=== PATIENT | male | born 1940 | race African-American/Black ===

== ENCOUNTER 2019-08-26 22:10 | Inpatient (IN) | payer MEDICARE, MEDICAID ==
[~2019-08-26] VITALS: Ht 172.7 cm; Wt 67.7 kg
[2019-08-27 00:50] VITALS: BP 140/78
--- NOTE | 2019-08-27 01:00 | NUR ---
NURSE NOTES: Admitted patient direct admit under Dr. Rome. Physical assessment done. Called Dr Rome for admitting orders and carried out.
[2019-08-27] MEDS ORDERED: GLUCOPHAGE1000 MG ORAL (01:43)
[2019-08-27] MEDS ORDERED: HYDREA500 MG PO (01:43)
[2019-08-27] MEDS ORDERED: LOTENSIN HCT 11 EAC1 PO (01:43)
[2019-08-27] MEDS ORDERED: ASPIRIN-LOW81 MG ORAL (01:43)
[2019-08-27] MEDS ORDERED: PRAVASTATIN SOD10 M1 ORAL (01:43)
[2019-08-27] MEDS ORDERED: NORVASC10 MG ORAL (01:43)
[2019-08-27] MEDS ORDERED: HYDROcodone/Acetamin 5/325 tab ORAL PRN (02:00)
[2019-08-27] MEDS ORDERED: Morphine Sulfate 2mg/ml Inj(IV/IM USE ONLY) IVP PRN (02:00)
[2019-08-27] MEDS: D5 1/2NS 1,000 ML IV SCH ×2 (03:25→13:18)
[2019-08-27 04:00] VITALS: BP 138/74
[2019-08-27] MEDS: Heparin 5000 units/ml inj SUBQ SCH ×3 (05:52→21:59)
[2019-08-27 07:21] LABS: BASOPHILS % (AUTO) 0.5 % (0.0-2.0); HEMATOCRIT 50.1 % (42.0-52.0); HEMOGLOBIN 15.7 G/DL (14.2-18.0); LYMPHOCYTES % (AUTO) 6.3 % (20.0-45.0); MEAN CORPUSCULAR VOLUME 89 FL (80-99); MONOCYTES % (AUTO) 11.4 % (1.0-10.0); NEUTROPHILS % (AUTO) 81.8 % (45.0-75.0); PLATELET COUNT 194 K/UL (150-450); RED CELL DISTRIBUTION WIDTH 15.5 % (11.6-14.8); WHITE BLOOD COUNT 7.6 K/UL (4.8-10.8)
--- NOTE | 2019-08-27 07:27 | NUR ---
HAND-OFF: Written Report given to Sara Coles RN. Addendum: 08/27/19 at 0743 by YEISON LOO RN HAND-OFF: Report given to Sara Coles RN.
[2019-08-27 08:00] VITALS: BP 137/77
--- NOTE | 2019-08-27 08:14 | NUR ---
NURSE NOTES: Patient received sleeping in bed, breathing unlabored on room air. No signs of apparent distress observed. IV sites on both arms patent and intact, fluids running at 100cc/hr. Bed locked in lowest position, call light placed within reach, will continue to monitor.
[2019-08-27] MEDS: Aspirin EC 81mg tab ORAL SCH (08:47)
[2019-08-27] MEDS: Benazepril 10mg tab ORAL SCH (08:47)
[2019-08-27] MEDS: Hydroxyurea 500mg cap ORAL SCH (08:47)
[2019-08-27 09:57] LABS: ALANINE AMINOTRANSFERASE 32 U/L (12-78); ALBUMIN 2.4 G/DL (3.4-5.0); ALBUMIN/GLOBULIN RATIO 0.4 (1.0-2.7); ALKALINE PHOSPHATASE 65 U/L (46-116); ANION GAP 12 mmol/L (5-15); ASPARTATE AMINO TRANSFERASE 92 U/L (15-37); BILIRUBIN,TOTAL 1.7 MG/DL (0.2-1.0); BLOOD UREA NITROGEN 37 mg/dL (7-18); CALCIUM 8.8 MG/DL (8.5-10.1); CARBON DIOXIDE 24 MMOL/L (21-32); CHLORIDE 122 MMOL/L (98-107); CREATININE 1.2 MG/DL (0.55-1.30); PHOSPHORUS 1.9 MG/DL (2.5-4.9); POTASSIUM 3.6 MMOL/L (3.5-5.1); SODIUM 158 MMOL/L (136-145)
[2019-08-27 10:03] LABS: BILIRUBIN,DIRECT 1.1 MG/DL (0.0-0.3)
--- NOTE | 2019-08-27 10:49 | NUR ---
NURSE NOTES:WOUND CARE NOTES:Pt presented on admission with multiple DTPI's. DTPI noted to R scapula. Base of wound is purple with red tinged borders. Base of wound is indurated (L)9.9cm x (W)5cm. DTPI noted to L thoracic. base of wound is maroon and indurated with surrounding non-blanching erythema.(L)0.5cm x (W)3.5cm. DTPI noted to sacrum. Base of wound is purple/black with an area at R sacrum that is fluctuant and oozing small amt sanguineous exudate. Base of wound is otherwise indurated(L)8.8cm x (W)9cm. Periwound is is blanchable without erythema. Both heels and malleoli are firm and blanchable. Tx.Plan: Apply Cavilon Skin Barrier to R scapula and L thoracic wounds. Cover each wound with Optifoam drsg. Change every 7 days and prn. Apply Moisture Barrier Paste to sacrum. Cover with Optifoam drsg. Change every 3 days and prn. Apply Cavilon Skin Barrier to both heels. Cover each heel with Optifoam drsg. Change every 7 days and prn. APM/ALEK Mattress. Off-load heels with pillow. Reposition at least every 2hours or as tolerated.
[2019-08-27 11:55] VITALS: BP 151/72
--- NOTE | 2019-08-27 12:27 | Consultation ---
History of Present Illness General Date patient seen: Aug 27, 2019 Present Illness HPI 78 year old male found down at his independent living apartment [facility] ([facility] [address] was note to have altered mental status. Taken to [facility] and transferred to [facility] for care and management after stabilization. Pre report, patient has closer Friend Mr. Dockery who is a christianity friend that states not sure if any relatives, next of kin, or poa. Patient's years ago and no kids. In [place], CT head negative but possible infarct. Patient seen and examined at bedside. Non verbal but does nod head in response to questions. Multiple wounds likely from being down for prolonged time. Surgery called to evaluate and assist with care. In [place] ED with lactic acidosis, abnormal labs, rhabdo and severe dehydration. given IV fluids and noted to be improved prior to transfer. abnormal lft's, renal insufficiency, lactic acidosis. Allergies: Coded Allergies: No Known Allergies (Unverified , 08/27/19) Medication History Scheduled Amlodipine Besylate (Norvasc), 10 MG ORAL DAILY, (Reported) Aspirin (Aspirin EC), 81 MG ORAL DAILY, (Reported) Benazepril/Hydrochlorothiazide (Lotensin Hct 10-12.5 mg Tablet), 1 EACH PO DAILY , (Reported) Hydroxyurea* (HYDREA 500mg*), 500 MG PO DAILY, (Reported) Metformin Hcl (Glucophage), 1,000 MG ORAL BID, (Reported) Pravastatin Sod (Pravastatin Sod), 20 MG ORAL DAILY, (Reported) Patient History Limited by: medical condition History Provided By: Medical Record, PMD Healthcare decision maker Clark Montero Resuscitation status Full Code Advanced Directive on File No Past Medical/Surgical History Past Medical/Surgical History: (1) Deep tissue injury (2) Blood blister (3) Lactic acid acidosis (4) Dehydration (5) Failure to thrive (6) Rhabdomyolysis (7) Hip fracture, left Review of Systems Review of Symptoms unable to obtain as patient non verbal Physical Exam Physical Exam General appearance: alert, no distress, appears stated age Head: Normocephalic, without obvious abnormality, atraumatic Eyes: conjunctivae/corneas clear. PERRL, EOM's intact. Fundi benign Throat: Lips, mucosa, and tongue normal. Teeth and gums normal Neck: supple, symmetrical, trachea midline, no adenopathy, thyroid: not enlarged, symmetric, no tenderness/mass/nodules, no carotid bruit and no JVD Lungs: clear to auscultation bilaterally Heart: regular rate and rhythm, S1, S2 normal, no murmur, click, rub or gallop Abdomen: soft, non-tender. Bowel sounds normal. No masses, no organomegaly Extremities: extremities normal, atraumatic, no cyanosis or edema Pulses: 2+ and symmetric Skin: multiple dti and blood blisters Neurologic: Grossly normal Last 24 Hour Vital Signs Date Time Temp Pulse Resp B/P (MAP) Pulse Ox O2 Delivery O2 Flow Rate FiO2 08/27/19 11:55 98.0 124 18 151/72 (98) 99 08/27/19 10:56 101.7 08/27/19 08:47 137/77 08/27/19 08:47 102 137/77 08/27/19 08:00 97.5 102 18 137/77 (97) 99 08/27/19 04:00 98.2 88 16 138/74 (95) 94 08/27/19 02:05 Room Air 08/27/19 00:50 98.9 90 18 140/78 (98) 96 Intake and Output 08/26/19 08/27/19 19:00 07:00 Intake Total 300 ml Output Total 600 ml Balance -300 ml Intake Oral 0 ml IV Total 300 ml Output Urine Total 600 ml Laboratory Tests Test 08/27/19 06:17 08/27/19 08:55 White Blood Count 7.6 K/UL (4.8-10.8) Red Blood Count 5.60 M/UL (4.70-6.10) Hemoglobin 15.7 G/DL (14.2-18.0) Hematocrit 50.1 % (42.0-52.0) Mean Corpuscular Volume 89 FL (80-99) Mean Corpuscular Hemoglobin 27.9 PG (27.0-31.0) Mean Corpuscular Hemoglobin Concent 31.2 G/DL (32.0-36.0) L Red Cell Distribution Width 15.5 % (11.6-14.8) H Platelet Count 194 K/UL (150-450) Mean Platelet Volume 7.6 FL (6.5-10.1) Neutrophils (%) (Auto) 81.8 % (45.0-75.0) H Lymphocytes (%) (Auto) 6.3 % (20.0-45.0) L Monocytes (%) (Auto) 11.4 % (1.0-10.0) H Eosinophils (%) (Auto) 0.0 % (0.0-3.0) Basophils (%) (Auto) 0.5 % (0.0-2.0) Sodium Level 158 MMOL/L (136-145) H Potassium Level 3.6 MMOL/L (3.5-5.1) Chloride Level 122 MMOL/L (98-107) H Carbon Dioxide Level 24 MMOL/L (21-32) Anion Gap 12 mmol/L (5-15) Blood Urea Nitrogen 37 mg/dL (7-18) H Creatinine 1.2 MG/DL (0.55-1.30) Estimat Glomerular Filtration Rate mL/min (>60) Glucose Level 276 MG/DL (74-106) H Calcium Level 8.8 MG/DL (8.5-10.1) Phosphorus Level 1.9 MG/DL (2.5-4.9) L Magnesium Level 2.4 MG/DL (1.8-2.4) Total Bilirubin 1.7 MG/DL (0.2-1.0) H Direct Bilirubin 1.1 MG/DL (0.0-0.3) H Aspartate Amino Transf (AST/SGOT) 92 U/L (15-37) H Alanine Aminotransferase (ALT/SGPT) 32 U/L (12-78) Alkaline Phosphatase 65 U/L (46-116) Total Protein 8.6 G/DL (6.4-8.2) H Albumin 2.4 G/DL (3.4-5.0) L Globulin 6.2 g/dL Albumin/Globulin Ratio 0.4 (1.0-2.7) L Height (Feet): 5 Height (Inches): 8.00 Weight (Pounds): 127 Medications Current Medications Medications (Trade) Dose Ordered Sig/Debi Route PRN Reason Start Time Stop Time Status Last Admin Dose Admin Acetaminophen (Tylenol) 650 mg Q6H PRN ORAL Mild Pain/Temp > 100.5 08/27/19 02:00 09/26/19 01:59 Acetaminophen/ Hydrocodone Bitart ([place] 5/325) 1 tab Q6H PRN ORAL For Pain 08/27/19 02:00 09/03/19 01:59 Amlodipine Besylate (Norvasc) 10 mg DAILY ORAL 08/27/19 09:00 09/26/19 08:59 08/27/19 08:47 Aspirin (Ecotrin) 81 mg DAILY ORAL 08/27/19 09:00 09/26/19 08:59 08/27/19 08:47 Benazepril HCl (Lotensin) 10 mg DAILY ORAL 08/27/19 09:00 09/26/19 08:59 08/27/19 08:47 Dextrose/Sodium Chloride 1,000 ml @ 100 mls/hr Q10H IV 08/27/19 03:00 09/26/19 02:59 08/27/19 03:25 Heparin Sodium (Porcine) (Heparin 5000 units/ml) 5,000 units EVERY 8 HOURS SUBQ 08/27/19 06:00 09/26/19 05:59 Hydroxyurea (Hydrea) 500 mg DAILY ORAL 08/27/19 09:00 09/01/19 08:59 08/27/19 08:47 Metformin HCl (Glucophage) 1,000 mg BID ORAL 08/27/19 18:00 09/26/19 17:59 Morphine Sulfate (Morphine Sulfate) 2 mg Q6H PRN IVP Severe Pain (Pain Scale 7-10) 08/27/19 02:00 09/03/19 01:59 Assessment/Plan Problem List: (1) Dehydration Assessment & Plan: AMS, found down dehydration bun/cr elevated gfr down improved with IVF ICD Codes: E86.0 - Dehydration SNOMED: 76332457 (2) Failure to thrive SNOMED: 17234535 (3) Rhabdomyolysis Assessment & Plan: likely from being down IV fluids trend labs will monitor ICD Codes: M62.82 - Rhabdomyolysis SNOMED: 837298557 (4) Blood blister Assessment & Plan: Patient presented with multiple DTI and Blood blisters Found down prior and noted on eval in ED at [place]. Seen upon admission to [facility] Patient with 8.8cm x 9cm sacral DTI with oozing on right sacral with resorbing blood blister. periwound intact and stable. Right scapula DTI 9.9cm x 5cm purple and indurated without drainage Left thoracic DTI 1cm x 3.5cm purple and indurated without drainage bilateral heels stable and soft with blanching no other skin concerns noted at this time Tx Plan: Monitor wounds for drainage. Will apply skin protectant and Optifoam dressings Daily and prn saturation Keep heels off loaded with pillows Air soft mattress Turn q2h Nutritional optimization Will follow with recs. ICD Codes: T14.8XXA - Other injury of unspecified body region, initial encounter SNOMED: 538123425 (5) Lactic acid acidosis Assessment & Plan: IV fluids resuscitation trend ICD Codes: E87.2 - Acidosis SNOMED: 38900801 (6) Hip fracture, left Assessment & Plan: lucency noted on plain films no pain on exam repeat films ordered ICD Codes: S72.002A - Fracture of unspecified part of neck of left femur, initial encounter for closed fracture SNOMED: 344599910 (7) Deep tissue injury ICD Codes: T14.8XXA - Other injury of unspecified body region, initial encounter SNOMED: 531785532 James Breen Aug 27, 2019 12:27
--- NOTE | 2019-08-27 14:50 | Diagnostic Imaging Report ---
Indication: Cough Comparison: None A single view chest radiograph was obtained. Findings: Bones are osteopenic. Lungs are clear. Heart size is normal. Aorta is mildly ectatic. IMPRESSION: No acute disease
--- NOTE | 2019-08-27 14:52 | Diagnostic Imaging Report ---
Indications: hip pain Findings: 2 views of both hips were obtained. There is irregularity of the left greater trochanter indicative of a injury. This is probably an old fracture. However please correlate clinically. There is no fracture of the femoral neck or intertrochanteric region bilaterally. The bones are osteopenic. There is no malalignment of either hip identified. IMPRESSION: Irregularity of the left greater trochanter which may be indicative of a previous fracture. Doubt acute injury. However please correlate clinically. Generalized osteopenia
--- NOTE | 2019-08-27 15:31 | Consultation ---
History of Present Illness General Date patient seen: Aug 27, 2019 Reason for Consultation: inpatient management Present Illness HPI 78 year old male with hx of HTN, DM, resident of a [facility] was taken to [facility] , because he was found down. His initial evaluation at [facility] showed vito he might have old hip fracture. Pt is awake but doesn't talk and respond to any questions. Ethics at [facility] saw him and documented that he lacs capacity. He is and apparently has only a step son. Allergies: Coded Allergies: No Known Allergies (Unverified , 08/27/19) Medication History Scheduled Amlodipine Besylate (Norvasc), 10 MG ORAL DAILY, (Reported) Aspirin (Aspirin EC), 81 MG ORAL DAILY, (Reported) Benazepril/Hydrochlorothiazide (Lotensin Hct 10-12.5 mg Tablet), 1 EACH PO DAILY , (Reported) Hydroxyurea* (HYDREA 500mg*), 500 MG PO DAILY, (Reported) Metformin Hcl (Glucophage), 1,000 MG ORAL BID, (Reported) Pravastatin Sod (Pravastatin Sod), 20 MG ORAL DAILY, (Reported) Patient History Healthcare decision maker Clark Montero Resuscitation status Full Code Advanced Directive on File No Past Medical/Surgical History Past Medical/Surgical History: (1) History of hypertension (2) Diabetes mellitus Review of Systems All Other Systems: negative except mentioned in HPI Physical Exam General Appearance: cachetic, thin Lines, tubes and drains: peripheral HEENT: normocephalic, atraumatic Neck: non-tender, normal alignment Respiratory/Chest: chest wall non-tender, lungs clear Breasts: no masses Cardiovascular/Chest: normal peripheral pulses Abdomen: normal bowel sounds Genitourinary/Rectal: normal genital exam Extremities: normal range of motion Skin Exam: normal pigmentation Last 24 Hour Vital Signs Date Time Temp Pulse Resp B/P (MAP) Pulse Ox O2 Delivery O2 Flow Rate FiO2 08/27/19 11:55 98.0 124 18 151/72 (98) 99 08/27/19 10:56 101.7 08/27/19 09:00 Room Air 08/27/19 08:47 137/77 08/27/19 08:47 102 137/77 08/27/19 08:00 97.5 102 18 137/77 (97) 99 08/27/19 04:00 98.2 88 16 138/74 (95) 94 08/27/19 02:05 Room Air 08/27/19 00:50 98.9 90 18 140/78 (98) 96 Intake and Output 08/26/19 08/27/19 19:00 07:00 Intake Total 300 ml Output Total 600 ml Balance -300 ml Intake Oral 0 ml IV Total 300 ml Output Urine Total 600 ml Laboratory Tests Test 08/27/19 06:17 08/27/19 08:55 White Blood Count 7.6 K/UL (4.8-10.8) Red Blood Count 5.60 M/UL (4.70-6.10) Hemoglobin 15.7 G/DL (14.2-18.0) Hematocrit 50.1 % (42.0-52.0) Mean Corpuscular Volume 89 FL (80-99) Mean Corpuscular Hemoglobin 27.9 PG (27.0-31.0) Mean Corpuscular Hemoglobin Concent 31.2 G/DL (32.0-36.0) L Red Cell Distribution Width 15.5 % (11.6-14.8) H Platelet Count 194 K/UL (150-450) Mean Platelet Volume 7.6 FL (6.5-10.1) Neutrophils (%) (Auto) 81.8 % (45.0-75.0) H Lymphocytes (%) (Auto) 6.3 % (20.0-45.0) L Monocytes (%) (Auto) 11.4 % (1.0-10.0) H Eosinophils (%) (Auto) 0.0 % (0.0-3.0) Basophils (%) (Auto) 0.5 % (0.0-2.0) Sodium Level 158 MMOL/L (136-145) H Potassium Level 3.6 MMOL/L (3.5-5.1) Chloride Level 122 MMOL/L (98-107) H Carbon Dioxide Level 24 MMOL/L (21-32) Anion Gap 12 mmol/L (5-15) Blood Urea Nitrogen 37 mg/dL (7-18) H Creatinine 1.2 MG/DL (0.55-1.30) Estimat Glomerular Filtration Rate mL/min (>60) Glucose Level 276 MG/DL (74-106) H Calcium Level 8.8 MG/DL (8.5-10.1) Phosphorus Level 1.9 MG/DL (2.5-4.9) L Magnesium Level 2.4 MG/DL (1.8-2.4) Total Bilirubin 1.7 MG/DL (0.2-1.0) H Direct Bilirubin 1.1 MG/DL (0.0-0.3) H Aspartate Amino Transf (AST/SGOT) 92 U/L (15-37) H Alanine Aminotransferase (ALT/SGPT) 32 U/L (12-78) Alkaline Phosphatase 65 U/L (46-116) Total Protein 8.6 G/DL (6.4-8.2) H Albumin 2.4 G/DL (3.4-5.0) L Globulin 6.2 g/dL Albumin/Globulin Ratio 0.4 (1.0-2.7) L Height (Feet): 5 Height (Inches): 8.00 Weight (Pounds): 127 Medications Current Medications Medications (Trade) Dose Ordered Sig/Debi Route PRN Reason Start Time Stop Time Status Last Admin Dose Admin Acetaminophen (Tylenol) 650 mg Q4H PRN RECTAL Prn Headache/Temp > 101 08/27/19 12:00 09/26/19 11:59 Acetaminophen (Tylenol) 650 mg Q6H PRN ORAL Mild Pain/Temp > 100.5 08/27/19 02:00 09/26/19 01:59 Acetaminophen/ Hydrocodone Bitart ([place] 5/325) 1 tab Q6H PRN ORAL For Pain 08/27/19 02:00 09/03/19 01:59 Amlodipine Besylate (Norvasc) 10 mg DAILY ORAL 08/27/19 09:00 09/26/19 08:59 08/27/19 08:47 Aspirin (Ecotrin) 81 mg DAILY ORAL 08/27/19 09:00 09/26/19 08:59 08/27/19 08:47 Benazepril HCl (Lotensin) 10 mg DAILY ORAL 08/27/19 09:00 09/26/19 08:59 08/27/19 08:47 Dextrose (Dextrose 50%) 25 ml Q30M PRN IV Hypoglycemia 08/27/19 15:15 09/26/19 15:14 Dextrose (Dextrose 50%) 50 ml Q30M PRN IV Hypoglycemia 08/27/19 15:15 09/26/19 15:14 Dextrose/Sodium Chloride 1,000 ml @ 100 mls/hr Q10H IV 08/27/19 03:00 09/26/19 02:59 08/27/19 13:18 Heparin Sodium (Porcine) (Heparin 5000 units/ml) 5,000 units EVERY 8 HOURS SUBQ 08/27/19 06:00 09/26/19 05:59 08/27/19 13:23 Hydroxyurea (Hydrea) 500 mg DAILY ORAL 08/27/19 09:00 09/01/19 08:59 08/27/19 08:47 Insulin Aspart (NovoLOG) BEFORE MEALS AND HS SUBQ 08/27/19 16:30 09/26/19 16:29 Metformin HCl (Glucophage) 1,000 mg BID ORAL 08/27/19 18:00 09/26/19 17:59 Morphine Sulfate (Morphine Sulfate) 2 mg Q6H PRN IVP Severe Pain (Pain Scale 7-10) 08/27/19 02:00 09/03/19 01:59 Assessment/Plan Problem List: (1) Acute encephalopathy ICD Codes: G93.40 - Encephalopathy, unspecified SNOMED: 65489199, 737742840 (2) Severe protein-calorie malnutrition ICD Codes: E43 - Unspecified severe protein-calorie malnutrition SNOMED: 631764329, 188812638, 384151027 (3) History of hypertension ICD Codes: Z86.79 - Personal history of other diseases of the circulatory system SNOMED: 648393759 (4) Diabetes mellitus ICD Codes: E11.9 - Type 2 diabetes mellitus without complications SNOMED: 05554967 Assessment/Plan: aspiration precaution swallow evaluation ortho evaluation sliding scale diabetic diet monitor BP and electrolytes. Latanya Mckeon MD Aug 27, 2019 15:30
[2019-08-27 16:00] VITALS: BP 138/65
--- NOTE | 2019-08-27 16:02 | Diagnostic Imaging Report ---
Indication: Abdominal pain Technique: Grayscale and duplex Doppler imaging of the abdomen performed. Comparison: None Findings: The liver is unremarkable. Doppler interrogation of the main portal vein shows patency with hepatopedal, monophasic flow. There is no biliary ductal dilatation identified. Gallbladder is unremarkable. CBD is 2.2 mm. There demonstrated part of the pancreas, aorta and IVC show no definite abnormalities though largely not visualized due to bowel gas. There is a 3.7 cm left renal cyst and a 2 cm right renal cyst. Both kidneys appear unremarkable otherwise. There is no hydronephrosis. IMPRESSION: No acute findings Bilateral renal cysts
--- NOTE | 2019-08-27 16:18 | NUR ---
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 Doubt acute injury. However please correlate clinically. IS: IVF NS @ 100ML/HR HEPARIN SUBC ASA PO MRI BRAIN SWALLOW EVAL MED/SURG STATUS
--- NOTE | 2019-08-27 17:32 | History & Physical ---
History and Physical History & Physicial Dictated for Int Med-Tello Reynolds MD Aug 27, 2019 17:32
[2019-08-27] MEDS: metFORMIN 500mg tab ORAL SCH (18:12)
[2019-08-27] MEDS: NovoLOG Insulin Flexpen SUBQ SCH ×2 (18:22→21:59)
--- NOTE | 2019-08-27 18:36 | NUR ---
NURSE NOTES: NG Tube insertion order cancelled as RN's tried 8 times without success. EVENT MARKETING REPRESENTATIVE Odalys apprised. Per ST recommendation, crush meds and modify texture to pureed like soup with nectar thick liquids. No overt aspiration observed when swallowing medications.
--- NOTE | 2019-08-27 19:30 | NUR ---
NURSE NOTES: Received report from JOHNNY Ruiz. Pt AAO x 1, non-verbal, resting in bed, on room air. Adams intact and draining urine. IV site intact and patent. No c/o pain/respiratory distress noted at this time. Bed locked, lowest position, alarm on, side rails up, call light within reach. Will continue to monitor.
--- NOTE | 2019-08-27 19:40 | NUR ---
HAND-OFF: Report given to Ccua TURNER.
[2019-08-27 20:00] VITALS: BP 146/63
--- NOTE | 2019-08-27 20:15 | History and Physical Report ---
DATE OF ADMISSION: 08/27/2019 CHIEF COMPLAINT: The patient is a 78-year-old male, who presents with a chief complaint of altered mental status. HISTORY OF PRESENT ILLNESS: The patient himself is somewhat confused. Much of the history and physical is taken from the patient's medical record. The patient was found down in his apartment on 08/26/2019. It is not known how long the patient was down. The patient has some excoriations on the back. The patient initially was transferred to [facility] emergency room. The patient was diagnosed with rhabdomyolysis, dehydration, and was found to have fracture of the left femur greater trochanter. The patient is transferred to [facility] for insurance purposes. The patient is admitted with rhabdomyolysis, altered mental status, and fracture of the left femur greater trochanter. The patient is also severely dehydrated. PAST MEDICAL HISTORY: Significant for: 1. Hypertension. 2. Diabetes type 2. 3. Hypercholesterolemia. PAST SURGICAL HISTORY: Unknown. CURRENT MEDICATIONS: 1. Aspirin 81 mg one tablet p.o. daily. 2. Atorvastatin 40 mg p.o. daily. 3. Benazepril/hydrochlorothiazide 10/12.5 one tablet p.o. daily. 4. Glucophage 1000 mg p.o. twice daily. 5. Pravastatin 20 mg p.o. daily. 6. Hydroxyurea 500 mg p.o. every other day on odd days and two tablets every day on even days. 7. Amlodipine 10 mg p.o. daily. ALLERGIES: No known drug allergies. SOCIAL HISTORY: The patient is single and lives alone. The patient denies tobacco or alcohol use. PHYSICAL EXAMINATION: VITAL SIGNS: Temperature 98.5, respirations 26, pulse 104, and blood pressure 140/78. GENERAL: The patient is a well-developed and well-nourished male, who is essentially nonverbal. HEENT: Eyes, pupils equal and responsive to light and accommodation. Extraocular movements are intact. NECK: Supple without lymphadenopathy. CHEST: Lungs are clear to auscultation bilaterally without wheezes or rales. CARDIOVASCULAR: Regular rhythm and rate. S1, S2 normal without murmurs, rubs, or gallops. ABDOMEN: Soft, nontender, nondistended. Positive bowel sounds. No evidence of hepatosplenomegaly. Currently, no rebound or guarding noted. EXTREMITIES: Negative for clubbing, cyanosis, or edema. RECTAL: Not performed. GENITAL: Not performed. NEUROLOGIC: Cranial nerves II through XII are grossly intact without focal deficits. LABORATORY AND DIAGNOSTIC DATA: Laboratory studies, WBC 8.3, hemoglobin 16.7, hematocrit 53.2, and platelets 208,000. Sodium 149, potassium 4.9, chloride 107, CO2 25, BUN 65, creatinine 1.79, glucose 216. Lactate elevated at 3.6. Total CK was elevated at 2804. An x-ray of the left femur revealed a nondisplaced fracture of the left femur greater trochanter. ASSESSMENT: This is a 78-year-old male with: 1. Altered mental status. 2. Fracture of the left femur greater trochanter. 3. Rhabdomyolysis. 4. Dehydration. 5. Diabetes type 2. 6. Hypertension. 7. Hypercholesterolemia. TREATMENT: 1. Altered mental status, this may be secondary to dehydration versus acute cerebrovascular accident. An MRI of the brain is pending. 2. Fracture of the left femur greater trochanter. An Orthopedic consultation has been obtained with Dr. Frederic Weir. 3. Rhabdomyolysis. The patient is currently receiving intravenous fluids. 4. Dehydration. The patient is currently receiving intravenous fluids. 5. Diabetes type 2. A NovoLog sliding scale has been instituted. 6. Hypertension. Continue benazepril, hydrochlorothiazide as above. 7. Hypercholesterolemia. Continue pravastatin as above. Tello Cobb M.D. DR: FREDDY JOB#: [id number] CC:
--- NOTE | 2019-08-27 20:30 | NUR ---
NURSE NOTES: Pt has fever 100.8. Pt is not able to take crushed med. RN applied ice pack. 30min recheck temp was 98.7. Will continue to monitor.
[2019-08-28] VITALS: BP 141/68
[2019-08-28] MEDS: Acetaminophen 650 MG SUPP RECTAL PRN ×2 (01:23→15:44)
[2019-08-28 04:00] VITALS: BP 151/78
--- NOTE | 2019-08-28 05:14 | NUR ---
NURSE NOTES: NG tube inserted and verified proper placement of the NG tube by auscultating a lal of air over the stomach. Pt tolerated well. X ray abd for NG tube placement ordered.
[2019-08-28] MEDS: Heparin 5000 units/ml inj SUBQ SCH ×3 (05:53→21:39)
[2019-08-28] MEDS: NovoLOG Insulin Flexpen SUBQ SCH ×4 (05:53→21:38)
[2019-08-28 06:59] LABS: INR 1.1 (0.9-1.1)
--- NOTE | 2019-08-28 07:02 | NUR ---
HAND-OFF: Report given to JOHNNY Ruiz.
[2019-08-28 07:22] LABS: BASOPHILS % (AUTO) 0.4 % (0.0-2.0); HEMATOCRIT 42.1 % (42.0-52.0); LYMPHOCYTES % (AUTO) 8.9 % (20.0-45.0); MEAN CORPUSCULAR VOLUME 85 FL (80-99); MONOCYTES % (AUTO) 8.1 % (1.0-10.0); NEUTROPHILS % (AUTO) 82.6 % (45.0-75.0); PLATELET COUNT 178 K/UL (150-450); RED BLOOD COUNT 4.94 M/UL (4.70-6.10); RED CELL DISTRIBUTION WIDTH 13.8 % (11.6-14.8); WHITE BLOOD COUNT 7.5 K/UL (4.8-10.8)
[2019-08-28 07:23] LABS: PHOSPHORUS 2.2 MG/DL (2.5-4.9)
--- NOTE | 2019-08-28 07:25 | NUR ---
NURSE NOTES: Patient received resting in bed, patient non-verbal, makes eye contact. Breathing on room air. NG tube in place, waiting for KUB to confirm placement. No signs of apparent distress noted. IV site on right arm patent and intact, running fluids at 100cc/hr. HOB elevated. Call light placed within reach, will continue to monitor.
[2019-08-28 07:27] LABS: ALANINE AMINOTRANSFERASE 33 U/L (12-78); ALBUMIN 2.1 G/DL (3.4-5.0); ALBUMIN/GLOBULIN RATIO 0.4 (1.0-2.7); ALKALINE PHOSPHATASE 59 U/L (46-116); ANION GAP 12 mmol/L (5-15); ASPARTATE AMINO TRANSFERASE 100 U/L (15-37); BILIRUBIN,TOTAL 1.8 MG/DL (0.2-1.0); BLOOD UREA NITROGEN 27 mg/dL (7-18); CALCIUM 8.3 MG/DL (8.5-10.1); CARBON DIOXIDE 24 MMOL/L (21-32); CHLORIDE 125 MMOL/L (98-107); CREATININE 1.3 MG/DL (0.55-1.30); POTASSIUM 3.5 MMOL/L (3.5-5.1)
[2019-08-28 07:36] LABS: AMYLASE 196 U/L (25-115)
[2019-08-28 07:48] LABS: CREATINE KINASE 3016 U/L (26-308)
[2019-08-28 08:00] VITALS: BP 138/75
[2019-08-28 08:24] LABS: SODIUM 162 MMOL/L (136-145)
[2019-08-28 08:25] LABS: BILIRUBIN,DIRECT 1.1 MG/DL (0.0-0.3)
[2019-08-28] MEDS: Aspirin EC 81mg tab ORAL SCH (09:00)
[2019-08-28] MEDS: metFORMIN 500mg tab ORAL SCH ×2 (09:00→17:24)
[2019-08-28] MEDS: Benazepril 10mg tab ORAL SCH (09:00)
[2019-08-28] MEDS: Hydroxyurea 500mg cap ORAL SCH (09:00)
--- NOTE | 2019-08-28 09:19 | Diagnostic Imaging Report ---
Indication: Altered mental status Technique: The head was imaged in a 1.5 Nesha magnet. Sequences obtained include sagittal and axial T1 FLAIR, axial T2 fast spin echo with fat saturation, axial T2* GRE, axial T2 FLAIR, diffusion and ADC map. Comparison: None Findings: There is moderate prominence of the sulci, ventricles, and basal cisterns consistent with atrophy. Moderate, nonspecific T2 hyperintensity noted within white matter. This may be due to chronic small vessel disease. There is no restricted diffusion. Hernandez-white differentiation is normal. There is no mass effect, midline shift, edema, or hemorrhage. There are no abnormal extra-axial or intra-axial fluid collections. The corpus callosum and sella are unremarkable. The brainstem and cerebellum are unremarkable. Bone marrow signal within the visualized osseous structures appears age appropriate and unremarkable otherwise. Impression: No acute intracranial findings. Moderate atrophy and evidence of chronic small vessel disease involving white matter tracts.
--- NOTE | 2019-08-28 11:23 | NUR ---
RADIOLOGY DEPT., ABDOMENT X-RAY FOR NGT PLCOH COMPLETED.-P.DYE
--- NOTE | 2019-08-28 11:29 | NUR ---
RD ASSESSMENT & RECOMMENDATIONS SEE CARE ACTIVITY FOR COMPLETE ASSESSMENT DAILY ESTIMATED NEEDS: Needs based on Wound, DM/ 57.6kg 25-30 kcals/kg 8141-7692 total kcals 1.25-1.5 g protein/kg 72-86 g total protein 25-30 mL/kg 2983-6301 total fluid mLs NUTRITION DIAGNOSIS: * Swallowing difficulty R/T dysphagia, AMS as evidenced by s/p NGT insertion, pt to be on nonoral feeding at this time. * Increased kcal/prot needs R/T wound healing as evidenced by pt admitted w/ DTI wounds at sacrum, R scapula, and L thoracic, refer to eval. CURRENT DIET:NPO PO DIET RECOMMENDATIONS: WHEN SAFE FOR ORAL DIET-> CCHO MED/ texture per [employer] + Glucerna TID w/ meals ENTERAL NUTRITION RECOMMENDATIONS: Glucerna 1.2 @ 60ml/hr x 24 hrs to provide 1440ml, 1728kcal, 86g prot, 1159ml free water * Initiate Glucerna 1.2 @ 20ml/hr x 6 hrs * Advance 10ml q 4-6 hrs as tolerated to goal rate * HOB over 30 degrees * Without IVF, rec H20 flush of 150ml q 6hrs ADDITIONAL RECOMMENDATIONS: * Calibrated bedscale wt for accurate CBW * Monitor lytes daily w/ TF, replete as needed -> high risk for refeeding syndrome, unknown time of last meal intake * Consider DC D5 IVF once TF @ goal -> rec water flushes instead to prevent hyperglycemia * Wound healing: Add Vit C 250mg QD+ ZnSO4 220mg QD x 10 days : Terrance 1pkt BID
--- NOTE | 2019-08-28 11:39 | Diagnostic Imaging Report ---
Indication: NG tube placement Comparison: None Single view of the abdomen obtained Findings: NG tube is too high. The tip is a in the upper stomach but the proximal port is above the EG junction. The tube should be advanced 10 cm. Bowel gas pattern is nonspecific. IMPRESSION: NG tube is high and should be advanced further
[2019-08-28 12:00] VITALS: BP 146/78
--- NOTE | 2019-08-28 13:38 | Pulmonology Progress Note ---
Assessment/Plan Problems: (1) Acute encephalopathy (2) Severe protein-calorie malnutrition (3) History of hypertension (4) Diabetes mellitus Assessment/Plan MRI reviewed, no acute illness NG tube is in might need antipsychotic to keep him calm social work specialist to look for family Subjective ROS Limited/Unobtainable: No Constitutional: Reports: no symptoms HEENT: Repors: no symptoms Respiratory: Reports: no symptoms Allergies: Coded Allergies: No Known Allergies (Unverified , 08/27/19) Objective Last 24 Hour Vital Signs Date Time Temp Pulse Resp B/P (MAP) Pulse Ox O2 Delivery O2 Flow Rate FiO2 08/28/19 12:00 98.1 90 17 146/78 (100) 90 08/28/19 09:00 Room Air 08/28/19 08:00 98.6 100 20 138/75 (96) 97 08/28/19 04:00 98.1 73 23 151/78 (102) 98 08/28/19 02:29 100.5 08/28/19 00:00 101.0 104 22 141/68 (92) 92 08/27/19 21:00 Room Air 08/27/19 20:00 100.8 102 23 146/63 (90) 98 08/27/19 16:00 99.3 88 18 138/65 (89) 98 Intake and Output 08/27/19 08/28/19 19:00 07:00 Intake Total 200 ml 1240 ml Output Total 900 ml 500 ml Balance -700 ml 740 ml IV Total 200 ml 1240 ml Output Urine Total 900 ml 500 ml General Appearance: WD/WN HEENT: normocephalic, atraumatic Cardiovascular: normal peripheral pulses, regular rhythm Abdomen: normal bowel sounds, soft, non tender Genitourinary: normal external genitalia Skin: no rash Laboratory Tests 08/28/19 05:00: White Blood Count 7.5, Red Blood Count 4.94, Hemoglobin 14.0L, Hematocrit 42.1, Mean Corpuscular Volume 85, Mean Corpuscular Hemoglobin 28.2, Mean Corpuscular Hemoglobin Concent 33.2, Red Cell Distribution Width 13.8, Platelet Count 178, Mean Platelet Volume 8.2, Neutrophils (%) (Auto) 82.6H, Lymphocytes (%) (Auto) 8.9L, Monocytes (%) (Auto) 8.1, Eosinophils (%) (Auto) 0.0, Basophils (%) (Auto ) 0.4, Erythrocyte Sedimentation Rate 43H, Prothrombin Time 11.4, Prothromb Time International Ratio 1.1, Activated Partial Thromboplast Time 32, Sodium Level 162*H, Potassium Level 3.5, Chloride Level 125H, Carbon Dioxide Level 24, Anion Gap 12, Blood Urea Nitrogen 27H, Creatinine 1.3, Estimat Glomerular Filtration Rate , Glucose Level 134#H, Lactic Acid Level 1.30, Calcium Level 8.3L, Phosphorus Level 2.2L, Magnesium Level 2.2, Total Bilirubin 1.8H, Direct Bilirubin 1.1H, Aspartate Amino Transf (AST/SGOT) 100H, Alanine Aminotransferase (ALT/SGPT) 33, Alkaline Phosphatase 59, Total Creatine Kinase 3016H, C-Reactive Protein, Quantitative 24.0H, Total Protein 7.4, Albumin 2.1L, Globulin 5.3, Albumin/Globulin Ratio 0.4L, Amylase Level 196H, Lipase 814H Current Medications Medications (Trade) Dose Ordered Sig/Debi Route PRN Reason Start Time Stop Time Status Last Admin Dose Admin Acetaminophen (Tylenol) 650 mg Q4H PRN RECTAL Prn Headache/Temp > 101 08/27/19 12:00 09/26/19 11:59 08/28/19 01:23 Acetaminophen (Tylenol) 650 mg Q6H PRN ORAL Mild Pain/Temp > 100.5 08/27/19 02:00 09/26/19 01:59 Acetaminophen/ Hydrocodone Bitart ([place] 5/325) 1 tab Q6H PRN ORAL For Pain 08/27/19 02:00 09/03/19 01:59 Amlodipine Besylate (Norvasc) 10 mg DAILY ORAL 08/27/19 09:00 09/26/19 08:59 08/27/19 08:47 Aspirin (Ecotrin) 81 mg DAILY ORAL 08/27/19 09:00 09/26/19 08:59 08/27/19 08:47 Benazepril HCl (Lotensin) 10 mg DAILY ORAL 08/27/19 09:00 09/26/19 08:59 08/27/19 08:47 Dextrose 1,000 ml @ 100 mls/hr Q10H IV 08/28/19 10:00 09/27/19 09:59 08/28/19 10:23 Dextrose (Dextrose 50%) 25 ml Q30M PRN IV Hypoglycemia 08/27/19 15:15 09/26/19 15:14 Dextrose (Dextrose 50%) 50 ml Q30M PRN IV Hypoglycemia 08/27/19 15:15 09/26/19 15:14 Heparin Sodium (Porcine) (Heparin 5000 units/ml) 5,000 units EVERY 8 HOURS SUBQ 08/27/19 06:00 09/26/19 05:59 08/28/19 13:15 Hydroxyurea (Hydrea) 500 mg DAILY ORAL 08/27/19 09:00 09/01/19 08:59 08/27/19 08:47 Insulin Aspart (NovoLOG) BEFORE MEALS AND HS SUBQ 08/27/19 16:30 09/26/19 16:29 08/28/19 13:17 Metformin HCl (Glucophage) 1,000 mg BID ORAL 08/27/19 18:00 09/26/19 17:59 08/27/19 18:12 Morphine Sulfate (Morphine Sulfate) 2 mg Q6H PRN IVP Severe Pain (Pain Scale 7-10) 08/27/19 02:00 09/03/19 01:59 Latanya Mckeon MD Aug 28, 2019 13:37
--- NOTE | 2019-08-28 13:46 | CDS Physician Query ---
Clarification is required for compliance, coding accuracy, and to reflect severity of illness for this patient Dear Dr. Matthew Date: 08.28.19 CDS Name: Heidi Grant "Encephalopathy documented in consult note" Patient has fever of 101 and dehydrated. Please indicate the nature and chronicity of the condition below: [] Metabolic Encephalopathy [] Toxic Encephalopathy [] Toxic - Metabolic Encephalopathy [] Encephalopathy, Other [] Dementia with Delirium [] Hypoxic encephalopathy [] Posterior reversible encephalopathy syndrome [] Other: [] Not Applicable Present on Admission: [ ] Yes [ ] No [ ] Clinically Undetermined Physician signature Date Please also document in your Progress Notes and/or Discharge Summary and indicate if the condition was present on admission. SHLELY
--- NOTE | 2019-08-28 15:00 | NUR ---
Social Work This Sw received a consult to locate family. This Sw met with patient who appears to require 24 hour assistance, non-verbal and gives a blank stare when asking him questions. This Sw questioning whether patient will require SNF placement vs already has a caregiver at home. This SW made an attempt to locate Clark Montero @ [phone] (no answer) and left a message with friend, Louise Cristobal @ [phone] (awaiting call return at this time).
--- NOTE | 2019-08-28 15:38 | Surgery Progress Note ---
Surgery Progress Note Subjective Additional Comments labs noted electrolytes abnormal arnaldo/lip elevated ck noted Objective Last 24 Hour Vital Signs Date Time Temp Pulse Resp B/P (MAP) Pulse Ox O2 Delivery O2 Flow Rate FiO2 08/28/19 13:48 93 18 91 Room Air 21 08/28/19 13:47 90 18 91 Room Air 21 08/28/19 12:00 98.1 90 17 146/78 (100) 90 08/28/19 09:00 Room Air 08/28/19 08:00 98.6 100 20 138/75 (96) 97 08/28/19 04:00 98.1 73 23 151/78 (102) 98 08/28/19 02:29 100.5 08/28/19 00:00 101.0 104 22 141/68 (92) 92 08/27/19 21:00 Room Air 08/27/19 20:00 100.8 102 23 146/63 (90) 98 08/27/19 16:00 99.3 88 18 138/65 (89) 98 I&O Intake and Output 08/27/19 08/28/19 19:00 07:00 Intake Total 200 ml 1240 ml Output Total 900 ml 500 ml Balance -700 ml 740 ml IV Total 200 ml 1240 ml Output Urine Total 900 ml 500 ml Dressing: saturated Wound: other Drains: other Cardiovascular: RSR Respiratory: decreased breath sounds Abdomen: soft, present bowel sounds, non-distended Extremities: no cyanosis, other Laboratory Tests Test 08/28/19 05:00 White Blood Count 7.5 K/UL (4.8-10.8) Red Blood Count 4.94 M/UL (4.70-6.10) Hemoglobin 14.0 G/DL (14.2-18.0) L Hematocrit 42.1 % (42.0-52.0) Mean Corpuscular Volume 85 FL (80-99) Mean Corpuscular Hemoglobin 28.2 PG (27.0-31.0) Mean Corpuscular Hemoglobin Concent 33.2 G/DL (32.0-36.0) Red Cell Distribution Width 13.8 % (11.6-14.8) Platelet Count 178 K/UL (150-450) Mean Platelet Volume 8.2 FL (6.5-10.1) Neutrophils (%) (Auto) 82.6 % (45.0-75.0) H Lymphocytes (%) (Auto) 8.9 % (20.0-45.0) L Monocytes (%) (Auto) 8.1 % (1.0-10.0) Eosinophils (%) (Auto) 0.0 % (0.0-3.0) Basophils (%) (Auto) 0.4 % (0.0-2.0) Erythrocyte Sedimentation Rate 43 MM/HR (0-20) H Prothrombin Time 11.4 SEC (9.30-11.50) Prothromb Time International Ratio 1.1 (0.9-1.1) Activated Partial Thromboplast Time 32 SEC (23-33) Sodium Level 162 MMOL/L (136-145) *H Potassium Level 3.5 MMOL/L (3.5-5.1) Chloride Level 125 MMOL/L (98-107) H Carbon Dioxide Level 24 MMOL/L (21-32) Anion Gap 12 mmol/L (5-15) Blood Urea Nitrogen 27 mg/dL (7-18) H Creatinine 1.3 MG/DL (0.55-1.30) Estimat Glomerular Filtration Rate mL/min (>60) Glucose Level 134 MG/DL (74-106) #H Lactic Acid Level 1.30 mmol/L (0.4-2.0) Calcium Level 8.3 MG/DL (8.5-10.1) L Phosphorus Level 2.2 MG/DL (2.5-4.9) L Magnesium Level 2.2 MG/DL (1.8-2.4) Total Bilirubin 1.8 MG/DL (0.2-1.0) H Direct Bilirubin 1.1 MG/DL (0.0-0.3) H Aspartate Amino Transf (AST/SGOT) 100 U/L (15-37) H Alanine Aminotransferase (ALT/SGPT) 33 U/L (12-78) Alkaline Phosphatase 59 U/L (46-116) Total Creatine Kinase 3016 U/L (26-308) H C-Reactive Protein, Quantitative 24.0 mg/dL (0.00-0.90) H Total Protein 7.4 G/DL (6.4-8.2) Albumin 2.1 G/DL (3.4-5.0) L Globulin 5.3 g/dL Albumin/Globulin Ratio 0.4 (1.0-2.7) L Amylase Level 196 U/L (25-115) H Lipase 814 U/L (73-393) H Plan Problems: (1) Failure to thrive (2) Hip fracture, left Assessment & Plan: lucency noted on plain films no pain on exam repeat films ordered (3) Severe protein-calorie malnutrition (4) Rhabdomyolysis (5) Acidosis (6) Adult Failure To Thrive (7) Pressure Ulcer Of Sacral Region, Unstageable Assessment & Plan: 1) Dehydration Assessment & Plan: AMS, found down dehydration improved with IVF ICD Codes: E86.0 - Dehydration SNOMED: 72241519 (2) Failure to thrive SNOMED: 29229196 (3) Rhabdomyolysis Assessment & Plan: likely from being down IV fluids trend labs will monitor ICD Codes: M62.82 - Rhabdomyolysis SNOMED: 313285421 (4) Blood blister Assessment & Plan: Patient presented with multiple DTI and Blood blisters Found down prior and noted on eval in ED at [facility]. Seen upon admission to [facility] Patient with 8.8cm x 9cm sacral DTI with oozing on right sacral with resorbing blood blister. periwound intact and stable. Right scapula DTI 9.9cm x 5cm purple and indurated without drainage Left thoracic DTI 1cm x 3.5cm purple and indurated without drainage bilateral heels stable and soft with blanching no other skin concerns noted at this time Tx Plan: Monitor wounds for drainage. Will apply skin protectant and Optifoam dressings Daily and prn saturation Keep heels off loaded with pillows Air soft mattress Turn q2h Nutritional optimization Will follow with recs. ICD Codes: T14.8XXA - Other injury of unspecified body region, initial encounter SNOMED: 032587424 (5) Lactic acid acidosis Assessment & Plan: IV fluids resuscitation trend ICD Codes: E87.2 - Acidosis SNOMED: 71007884 (6) Hip fracture, left Assessment & Plan: lucency noted on plain films no pain on exam repeat films ordered ICD Codes: S72.002A - Fracture of unspecified part of neck of left femur, initial encounter for closed fracture SNOMED: 250469808 (7) Deep tissue injury ICD Codes: T14.8XXA - Other injury of unspecified body region, initial encounter SNOMED: 215225230 James Breen Aug 28, 2019 15:38
[2019-08-28 16:00] VITALS: BP 148/76
--- NOTE | 2019-08-28 16:41 | NUR ---
Social Work This Sw verified from friend, Louise Cristobal ([phone]) that patient has been living at [facility] low income housing (independent living). This SW spoke with Pickle Maker, Nasra ([phone]) who explains patient was independent prior, but has been showing a decline with memory loss. Patient was found not taking his medications, except for his pain medications. Patient has a brother, Clark Montero ([phone]) to assist with decision making. It appears patient may require SNF placement upon this discharge. Patient had been showing a blank stare, not understanding what others are saying to him, for the past week, according to Nasra @ [facility]. Patient is bi-lingual, he is from [facility] and Nasra is uncertain what other language he speaks. This SW made another attempt to contact patients brother, Clark ([phone]); no answer or voicemail available at this time.
--- NOTE | 2019-08-28 17:57 | Internal Med Progress Note ---
Subjective Physician Name Cirilo Rome Attending Physician Cirilo Rome MD Current Medications Medications (Trade) Dose Ordered Sig/Debi Route PRN Reason Start Time Stop Time Status Last Admin Dose Admin Acetaminophen (Tylenol) 650 mg Q4H PRN RECTAL Prn Headache/Temp > 101 08/27/19 12:00 09/26/19 11:59 08/28/19 15:44 Acetaminophen (Tylenol) 650 mg Q6H PRN ORAL Mild Pain/Temp > 100.5 08/27/19 02:00 09/26/19 01:59 Acetaminophen/ Hydrocodone Bitart ([place] 5/325) 1 tab Q6H PRN ORAL For Pain 08/27/19 02:00 09/03/19 01:59 Amlodipine Besylate (Norvasc) 10 mg DAILY ORAL 08/27/19 09:00 09/26/19 08:59 08/27/19 08:47 Aspirin (Ecotrin) 81 mg DAILY ORAL 08/27/19 09:00 09/26/19 08:59 08/27/19 08:47 Benazepril HCl (Lotensin) 10 mg DAILY ORAL 08/27/19 09:00 09/26/19 08:59 08/27/19 08:47 Dextrose 1,000 ml @ 100 mls/hr Q10H IV 08/28/19 10:00 09/27/19 09:59 08/28/19 10:23 Dextrose (Dextrose 50%) 25 ml Q30M PRN IV Hypoglycemia 08/27/19 15:15 09/26/19 15:14 Dextrose (Dextrose 50%) 50 ml Q30M PRN IV Hypoglycemia 08/27/19 15:15 09/26/19 15:14 Heparin Sodium (Porcine) (Heparin 5000 units/ml) 5,000 units EVERY 8 HOURS SUBQ 08/27/19 06:00 09/26/19 05:59 08/28/19 13:15 Hydroxyurea (Hydrea) 500 mg DAILY ORAL 08/27/19 09:00 09/01/19 08:59 08/27/19 08:47 Insulin Aspart (NovoLOG) BEFORE MEALS AND HS SUBQ 08/27/19 16:30 09/26/19 16:29 08/28/19 17:28 Metformin HCl (Glucophage) 1,000 mg BID ORAL 08/27/19 18:00 09/26/19 17:59 08/28/19 17:24 Morphine Sulfate (Morphine Sulfate) 2 mg Q6H PRN IVP Severe Pain (Pain Scale 7-10) 08/27/19 02:00 09/03/19 01:59 Allergies: Coded Allergies: No Known Allergies (Unverified , 08/27/19) Subjective Awake, responsive, no acute distress, on tube feeding, unable to follow command , spiking fever of 102.7. Objective Last Vital Signs Date Time Temp Pulse Resp B/P (MAP) Pulse Ox O2 Delivery O2 Flow Rate FiO2 08/28/19 16:31 100.9 08/28/19 16:00 118 18 148/76 (100) 95 08/28/19 13:48 Room Air 21 Laboratory Tests Test 08/28/19 05:00 White Blood Count 7.5 K/UL (4.8-10.8) Red Blood Count 4.94 M/UL (4.70-6.10) Hemoglobin 14.0 G/DL (14.2-18.0) L Hematocrit 42.1 % (42.0-52.0) Mean Corpuscular Volume 85 FL (80-99) Mean Corpuscular Hemoglobin 28.2 PG (27.0-31.0) Mean Corpuscular Hemoglobin Concent 33.2 G/DL (32.0-36.0) Red Cell Distribution Width 13.8 % (11.6-14.8) Platelet Count 178 K/UL (150-450) Mean Platelet Volume 8.2 FL (6.5-10.1) Neutrophils (%) (Auto) 82.6 % (45.0-75.0) H Lymphocytes (%) (Auto) 8.9 % (20.0-45.0) L Monocytes (%) (Auto) 8.1 % (1.0-10.0) Eosinophils (%) (Auto) 0.0 % (0.0-3.0) Basophils (%) (Auto) 0.4 % (0.0-2.0) Erythrocyte Sedimentation Rate 43 MM/HR (0-20) H Prothrombin Time 11.4 SEC (9.30-11.50) Prothromb Time International Ratio 1.1 (0.9-1.1) Activated Partial Thromboplast Time 32 SEC (23-33) Sodium Level 162 MMOL/L (136-145) *H Potassium Level 3.5 MMOL/L (3.5-5.1) Chloride Level 125 MMOL/L (98-107) H Carbon Dioxide Level 24 MMOL/L (21-32) Anion Gap 12 mmol/L (5-15) Blood Urea Nitrogen 27 mg/dL (7-18) H Creatinine 1.3 MG/DL (0.55-1.30) Estimat Glomerular Filtration Rate mL/min (>60) Glucose Level 134 MG/DL (74-106) #H Lactic Acid Level 1.30 mmol/L (0.4-2.0) Calcium Level 8.3 MG/DL (8.5-10.1) L Phosphorus Level 2.2 MG/DL (2.5-4.9) L Magnesium Level 2.2 MG/DL (1.8-2.4) Total Bilirubin 1.8 MG/DL (0.2-1.0) H Direct Bilirubin 1.1 MG/DL (0.0-0.3) H Aspartate Amino Transf (AST/SGOT) 100 U/L (15-37) H Alanine Aminotransferase (ALT/SGPT) 33 U/L (12-78) Alkaline Phosphatase 59 U/L (46-116) Total Creatine Kinase 3016 U/L (26-308) H C-Reactive Protein, Quantitative 24.0 mg/dL (0.00-0.90) H Total Protein 7.4 G/DL (6.4-8.2) Albumin 2.1 G/DL (3.4-5.0) L Globulin 5.3 g/dL Albumin/Globulin Ratio 0.4 (1.0-2.7) L Amylase Level 196 U/L (25-115) H Lipase 814 U/L (73-393) H Intake and Output 08/27/19 08/28/19 19:00 07:00 Intake Total 200 ml 1240 ml Output Total 900 ml 500 ml Balance -700 ml 740 ml IV Total 200 ml 1240 ml Output Urine Total 900 ml 500 ml Objective General: No acute distress, awake and responsive. HEENT: NCAT, sclera anicteric, PERRL, EOMI, NG Tube. Neck: Supple, no significant jugular venous distention, Lungs: fair inspiratory effort, decreased air at the bases, no Wheeze or Rales. Heart: Regular rate and rhythm, normal S1/S2, no murmurs Abdomen: soft, nontender, nondistended. Normoactive bowel sounds. Extremities: No Cyanosis , clubbing or edema. Neuro: A&O x 1, unable to move extremities Skin: warm, blood blisters, sacral ulcer. Assessment/Plan Assessment/Plan 1. Altered mental status likely secondary to toxic metabolic encephalopathy. 2. Fracture of the left femur greater trochanter. 3. Rhabdomyolysis. 4. Dehydration. 5. Diabetes type 2. 6. Hypertension. 7. Hypercholesterolemia. 8. Hyponatremia. 9. dehydration 10. deep tissue injury. 11. Severe protein calorie malnutrition 12. Spiking fever possible urinary tract infection Plan: Septic work-up including blood culture x2 and UA culture sensitivity. MRI of the brain was noted no acute finding. Continue tube feeding at 20 cc/h will increase as tolerated. DVT prophylaxis with heparin subcu. CODE STATUS is full code. Start the patient on a broad-spectrum antibiotic antibiotics with Rocephin. Follow-up with the laboratory in the morning. IV fluids at 100 cc/h Cirilo Rome MD Aug 28, 2019 17:57
[2019-08-28] MEDS: cefTRIAXone 1 GM in D5W 55 ML IVPB SCH (18:08)
[2019-08-28 19:06] LABS: APPEARANCE,URINE CLOUDY; BILIRUBIN, URINE NEGATIVE (NEGATIVE); GLUCOSE, URINE (UA) NEGATIVE (NEGATIVE); KETONES,URINE NEGATIVE (NEGATIVE); LEUKOCYTE ESTERASE ,URINE 1+ (NEGATIVE); NITRITE,URINE NEGATIVE (NEGATIVE); PH,URINE 6 (4.5-8.0); PROTEIN,URINE 3+ (NEGATIVE); UROBILINOGEN,URINE 4 MG/DL (0.0-1.0)
[2019-08-28 19:10] LABS: COLOR,URINE YELLOW
--- NOTE | 2019-08-28 19:10 | NUR ---
NURSE NOTES: Received report from JOHNNY Ruiz. Pt AAO x 1, non-verbal, resting in bed, on room air. Adams intact and draining urine. IV site intact and patent. Pt has NG tube running glucerna 1.2 @ 30cc and tolerated well. No c/o pain/respiratory distress noted at this time. Bed locked, lowest position, alarm on, side rails up, call light within reach. Will continue to monitor.
--- NOTE | 2019-08-28 19:16 | NUR ---
HAND-OFF: Report given to Cuca TURNER.
[2019-08-28 20:00] VITALS: BP 112/66
--- NOTE | 2019-08-28 23:28 | NUR ---
HAND-OFF: Report given to JOHNNY Huynh.
--- NOTE | 2019-08-28 23:29 | NUR ---
NURSE NOTES: Received report from JOHNNY Thurman. Patient is awake and confused. Nonverbal. On room air with no signs of distress. Adams in place and draining urine. IV site intact and patent. NG tube intact and running Glucerna 1.2 @ 60cc/hr. Bed locked and in lowest position with bed alarm on. Call light in reach. Will continue to monitor.
[2019-08-29] VITALS (7 sets, daily range): BP systolic 104–134; BP diastolic 51–82
[2019-08-29] MEDS: Acetaminophen 650 MG SUPP RECTAL PRN (00:34)
--- NOTE | 2019-08-29 00:49 | NUR ---
NURSE NOTES: Patient's temperature noted to be 101.5. PRN Tylenol 650mg supp administered as ordered. Will continue to monitor.
[2019-08-29] MEDS: Heparin 5000 units/ml inj SUBQ SCH ×3 (05:35→21:27)
[2019-08-29] MEDS: NovoLOG Insulin Flexpen SUBQ SCH ×4 (06:04→21:28)
--- NOTE | 2019-08-29 07:03 | NUR ---
NURSE NOTES: Patient found by RT with NG tube dislodged. welder machine operator notified.
--- NOTE | 2019-08-29 07:49 | NUR ---
HAND-OFF: Report given to JOHNNY Fowler.
--- NOTE | 2019-08-29 07:50 | NUR ---
NURSE NOTES: Patient N/G tube out, mckinney catheter is in place and draining ej color urine.IV fluids infusing as ordered.Will notify MD regarding replacement of N/G tube.Bed alarm is on,call light within reach.
[2019-08-29 08:00] LABS: BASOPHILS % (AUTO) 0.1 % (0.0-2.0); EOSINOPHILS % (AUTO) 0.1 % (0.0-3.0); HEMATOCRIT 41.6 % (42.0-52.0); HEMOGLOBIN 13.1 G/DL (14.2-18.0); LYMPHOCYTES % (AUTO) 10.8 % (20.0-45.0); MEAN CORPUSCULAR VOLUME 88 FL (80-99); MONOCYTES % (AUTO) 5.1 % (1.0-10.0); NEUTROPHILS % (AUTO) 83.9 % (45.0-75.0); PLATELET COUNT 179 K/UL (150-450); RED BLOOD COUNT 4.72 M/UL (4.70-6.10); RED CELL DISTRIBUTION WIDTH 15.3 % (11.6-14.8); WHITE BLOOD COUNT 7.2 K/UL (4.8-10.8)
[2019-08-29 08:47] LABS: ALANINE AMINOTRANSFERASE 28 U/L (12-78); ALBUMIN 1.7 G/DL (3.4-5.0); ALBUMIN/GLOBULIN RATIO 0.3 (1.0-2.7); ALKALINE PHOSPHATASE 63 U/L (46-116); AMYLASE 221 U/L (25-115); ANION GAP 12 mmol/L (5-15); ASPARTATE AMINO TRANSFERASE 57 U/L (15-37); BILIRUBIN,TOTAL 0.7 MG/DL (0.2-1.0); BLOOD UREA NITROGEN 32 mg/dL (7-18); CALCIUM 8.2 MG/DL (8.5-10.1); CARBON DIOXIDE 22 MMOL/L (21-32); CHLORIDE 120 MMOL/L (98-107); CREATININE 1.3 MG/DL (0.55-1.30); PHOSPHORUS 1.9 MG/DL (2.5-4.9); POTASSIUM 3.5 MMOL/L (3.5-5.1); SODIUM 154 MMOL/L (136-145)
[2019-08-29] MEDS: Hydroxyurea 500mg cap ORAL SCH (09:00)
[2019-08-29] MEDS: Aspirin EC 81mg tab ORAL SCH (09:00)
[2019-08-29] MEDS: metFORMIN 500mg tab ORAL SCH ×2 (09:00→18:45)
[2019-08-29] MEDS: Benazepril 10mg tab ORAL SCH (09:00)
--- NOTE | 2019-08-29 10:25 | Diagnostic Imaging Report ---
EXAM: XR Abdomen, 2 Views CLINICAL HISTORY: NGT TECHNIQUE: Frontal view of the abdomen pelvis with upright view of the abdomen. COMPARISON: Abdominal radiograph on 08 28 2019 FINDINGS: Hardware: Enteric tube terminates in the region of the GE junction distal esophagus. Sidehole is in the region of the lower esophagus. Abdomen: Nonobstructive bowel gas pattern. No free air. Bones: Degenerative changes of the spine. Soft tissues: Normal. Lower chest: Normal. IMPRESSION: Enteric tube terminates in the region of the GE junction distal esophagus. Recommend advancement.
--- NOTE | 2019-08-29 10:55 | NUR ---
NURSE NOTES: patient again pulled out N/G tube,Kim narayanan made aware and a odre was received for bilateral soft wrist restraints,N/g tube to be reinserted and checked for placement
--- NOTE | 2019-08-29 11:35 | Pulmonology Progress Note ---
Assessment/Plan Assessment/Plan ASSESSMENT Acute toxic metabolic encephalopathy Left hip fracture Possible UTI Severe protein calorie malnutrition Diabetes mellitus Hypertension Dehydration Hypernatremia Rhabdomyolysis Deep tissue injury Elevated amylase and lipase PLAN OF CARE MS floor MRI of the brain -no acute intracranial findings X-ray of the left hip with findings suggestive fracture: chronic versus acute ; surgery on board. pain management IVF; monitor renal parameters, electrolytes ; correct electrolytes further as needed and avoid nephrotoxic's trend CK ; rhabdo likely due to extended immobility after fall trend lipase and amylase abdominal ultrasound - no acute findings NGT GI eval- aspiration precautions on empiric abx for possible UTI UCX prel negative DVT prophylaxis O2 HHN PRN BS management his metformin and SSI , [id number], BS elevated, change sensitive scale to average BP management with JENNIFER inhibitor supportive care KPhos today case discussed and evaluated by supervising physician Subjective Allergies: Coded Allergies: No Known Allergies (Unverified , 08/27/19) Subjective pulled NG tube earlier this am, reinserted remains afebrile, no leucocytosis lipase and amylase trending up Objective Last 24 Hour Vital Signs Date Time Temp Pulse Resp B/P (MAP) Pulse Ox O2 Delivery O2 Flow Rate FiO2 08/29/19 07:03 95 20 95 Room Air 08/29/19 06:58 93 21 94 Room Air 08/29/19 04:00 98.4 100 18 124/69 (87) 96 08/29/19 02:53 Room Air 08/29/19 01:25 98.1 08/29/19 01:04 98.1 08/29/19 00:00 101.5 103 21 112/65 (81) 93 08/28/19 21:01 Room Air 08/28/19 20:00 99.7 98 20 112/66 (81) 96 08/28/19 18:08 93 18 91 Room Air 08/28/19 18:08 90 18 91 Room Air 21 08/28/19 16:00 102.7 118 18 148/76 (100) 95 08/28/19 13:48 93 18 91 Room Air 21 08/28/19 13:47 90 18 91 Room Air 21 08/28/19 12:00 98.1 90 17 146/78 (100) 90 Intake and Output 08/28/19 08/29/19 18:59 06:59 Intake Total 180 ml 960 ml Output Total 800 ml Balance -620 ml 960 ml Free Water 300 ml Tube Feeding 180 ml 660 ml Output Urine Total 800 ml General Appearance: no acute distress, cachetic, other - confused, poorly responsive bedridden AA male HEENT: normocephalic, atraumatic, anicteric, other - NG tube Respiratory/Chest: lungs clear - with moderate air exchange Cardiovascular: normal rate Abdomen: normal bowel sounds, soft, non tender Neurologic/Psychiatric: abnormal gait - bwedridden , other - poorly responsive , contracted Musculoskeletal: atrophy Microbiology Date/Time Source Procedure Growth Status 08/27/19 03:15 Nasal Nares Left MRSA Culture - Final NO METHICILLIN RESISTANT STAPH AUREUS... Complete 08/28/19 18:15 Urine,Clean Catch Urine Culture - Preliminary NO GROWTH Resulted 08/27/19 03:15 Rectum - Final NO CARBAPENEM-RESISTANT ENTEROBACTERI... Complete 08/27/19 03:15 Rectum VRE Culture - Final NO VANCOMYCIN RESISTANT ENTEROCOCCUS ... Complete Laboratory Tests 08/28/19 18:15: Urine Color Yellow, Urine Appearance Cloudy, Urine pH 6, Urine Specific [place] 1.010, Urine Protein 3+H, Urine Glucose (UA) Negative, Urine Ketones Negative, Urine Blood 5+H, Urine Nitrite Negative, Urine Bilirubin Negative, Urine Urobilinogen 4H, Urine Leukocyte Esterase 1+H, Urine RBC TntcH, Urine WBC 5-10H , Urine Squamous Epithelial Cells Occasional, Urine Amorphous Sediment ModerateH , Urine Bacteria ModerateH 08/29/19 07:18: White Blood Count 7.2, Red Blood Count 4.72, Hemoglobin 13.1L, Hematocrit 41.6L , Mean Corpuscular Volume 88, Mean Corpuscular Hemoglobin 27.7, Mean Corpuscular Hemoglobin Concent 31.3L, Red Cell Distribution Width 15.3H, Platelet Count 179, Mean Platelet Volume 9.1, Neutrophils (%) (Auto) 83.9H, Lymphocytes (%) (Auto) 10.8L, Monocytes (%) (Auto) 5.1, Eosinophils (%) (Auto) 0.1, Basophils (%) (Auto) 0.1, Erythrocyte Sedimentation Rate 59H, Sodium Level 154H, Potassium Level 3.5, Chloride Level 120H, Carbon Dioxide Level 22, Anion Gap 12, Blood Urea Nitrogen 32H, Creatinine 1.3, Estimat Glomerular Filtration Rate , Glucose Level 327#H, Calcium Level 8.2L, Phosphorus Level 1.9L, Magnesium Level 2.0, Total Bilirubin 0.7, Aspartate Amino Transf (AST/SGOT) 57H , Alanine Aminotransferase (ALT/SGPT) 28, Alkaline Phosphatase 63, C-Reactive Protein, Quantitative 20.4H, Total Protein 6.7, Albumin 1.7L, Globulin 5.0, Albumin/Globulin Ratio 0.3L, Amylase Level 221H, Lipase 1199H Current Medications Medications (Trade) Dose Ordered Sig/Debi Route PRN Reason Start Time Stop Time Status Last Admin Dose Admin Acetaminophen (Tylenol) 650 mg Q4H PRN RECTAL Prn Headache/Temp > 101 08/27/19 12:00 09/26/19 11:59 08/29/19 00:34 Acetaminophen (Tylenol) 650 mg Q6H PRN ORAL Mild Pain/Temp > 100.5 08/27/19 02:00 09/26/19 01:59 Acetaminophen/ Hydrocodone Bitart ([place] 5/325) 1 tab Q6H PRN ORAL For Pain 08/27/19 02:00 09/03/19 01:59 Amlodipine Besylate (Norvasc) 10 mg DAILY ORAL 08/27/19 09:00 09/26/19 08:59 08/27/19 08:47 Aspirin (Ecotrin) 81 mg DAILY ORAL 08/27/19 09:00 09/26/19 08:59 08/27/19 08:47 Benazepril HCl (Lotensin) 10 mg DAILY ORAL 08/27/19 09:00 09/26/19 08:59 08/27/19 08:47 Ceftriaxone Sodium 1 gm/ Dextrose 55 ml @ 110 mls/hr Q24H IVPB 08/28/19 18:00 09/04/19 17:59 08/28/19 18:08 Dextrose 1,000 ml @ 100 mls/hr Q10H IV 08/28/19 10:00 09/27/19 09:59 08/29/19 07:46 Dextrose (Dextrose 50%) 25 ml Q30M PRN IV Hypoglycemia 08/27/19 15:15 09/26/19 15:14 Dextrose (Dextrose 50%) 50 ml Q30M PRN IV Hypoglycemia 08/27/19 15:15 09/26/19 15:14 Heparin Sodium (Porcine) (Heparin 5000 units/ml) 5,000 units EVERY 8 HOURS SUBQ 08/27/19 06:00 09/26/19 05:59 08/29/19 05:35 Hydroxyurea (Hydrea) 500 mg DAILY ORAL 08/27/19 09:00 09/01/19 08:59 08/27/19 08:47 Insulin Aspart (NovoLOG) BEFORE MEALS AND HS SUBQ 08/27/19 16:30 09/26/19 16:29 08/29/19 06:04 Metformin HCl (Glucophage) 1,000 mg BID ORAL 08/27/19 18:00 09/26/19 17:59 08/28/19 17:24 Morphine Sulfate (Morphine Sulfate) 2 mg Q6H PRN IVP Severe Pain (Pain Scale 7-10) 08/27/19 02:00 09/03/19 01:59 Kim Mahoney [employer] Aug 29, 2019 11:35
[2019-08-29] MEDS ORDERED: Potassium Phosphate 15 MM in NS 275 ML IV ONE (12:30)
--- NOTE | 2019-08-29 14:27 | Surgery Progress Note ---
Surgery Progress Note Subjective Additional Comments patient removed NG tube arnaldo / lip elevated he is somewhat responsive and follows simple commands non verbal denies abd pain or tenderness Objective Last 24 Hour Vital Signs Date Time Temp Pulse Resp B/P (MAP) Pulse Ox O2 Delivery O2 Flow Rate FiO2 08/29/19 12:35 94 21 98 Room Air 21 08/29/19 12:30 81 18 96 Room Air 21 08/29/19 12:00 97.2 92 20 131/66 (87) 97 08/29/19 09:00 Room Air 08/29/19 09:00 131/66 08/29/19 08:00 97.9 91 24 129/82 (98) 95 08/29/19 07:03 95 20 95 Room Air 21 08/29/19 06:58 93 21 94 Room Air 21 08/29/19 04:00 98.4 100 18 124/69 (87) 96 08/29/19 02:53 Room Air 08/29/19 01:25 98.1 08/29/19 01:04 98.1 08/29/19 00:00 101.5 103 21 112/65 (81) 93 08/28/19 21:01 Room Air 08/28/19 20:00 99.7 98 20 112/66 (81) 96 08/28/19 18:08 93 18 91 Room Air 21 08/28/19 18:08 90 18 91 Room Air 21 08/28/19 16:00 102.7 118 18 148/76 (100) 95 I&O Intake and Output 08/28/19 08/29/19 19:00 07:00 Intake Total 210 ml 990 ml Output Total 800 ml 350 ml Balance -590 ml 640 ml Free Water 300 ml Tube Feeding 210 ml 690 ml Output Urine Total 800 ml 350 ml Dressing: saturated Wound: other Drains: other Cardiovascular: RSR Respiratory: decreased breath sounds Abdomen: soft, present bowel sounds, non-distended Extremities: no tenderness, no cyanosis, other Laboratory Tests Test 08/28/19 18:15 08/29/19 07:18 Urine Color Yellow Urine Appearance Cloudy Urine pH 6 (4.5-8.0) Urine Specific [place] 1.010 (1.005-1.035) Urine Protein 3+ (NEGATIVE) H Urine Glucose (UA) Negative (NEGATIVE) Urine Ketones Negative (NEGATIVE) Urine Blood 5+ (NEGATIVE) H Urine Nitrite Negative (NEGATIVE) Urine Bilirubin Negative (NEGATIVE) Urine Urobilinogen 4 MG/DL (0.0-1.0) H Urine Leukocyte Esterase 1+ (NEGATIVE) H Urine RBC Tntc /HPF (0 - 0) H Urine WBC 5-10 /HPF (0 - 0) H Urine Squamous Epithelial Cells Occasional /LPF Urine Amorphous Sediment Moderate /LPF (NONE) H Urine Bacteria Moderate /HPF (NONE) H White Blood Count 7.2 K/UL (4.8-10.8) Red Blood Count 4.72 M/UL (4.70-6.10) Hemoglobin 13.1 G/DL (14.2-18.0) L Hematocrit 41.6 % (42.0-52.0) L Mean Corpuscular Volume 88 FL (80-99) Mean Corpuscular Hemoglobin 27.7 PG (27.0-31.0) Mean Corpuscular Hemoglobin Concent 31.3 G/DL (32.0-36.0) L Red Cell Distribution Width 15.3 % (11.6-14.8) H Platelet Count 179 K/UL (150-450) Mean Platelet Volume 9.1 FL (6.5-10.1) Neutrophils (%) (Auto) 83.9 % (45.0-75.0) H Lymphocytes (%) (Auto) 10.8 % (20.0-45.0) L Monocytes (%) (Auto) 5.1 % (1.0-10.0) Eosinophils (%) (Auto) 0.1 % (0.0-3.0) Basophils (%) (Auto) 0.1 % (0.0-2.0) Erythrocyte Sedimentation Rate 59 MM/HR (0-20) H Sodium Level 154 MMOL/L (136-145) H Potassium Level 3.5 MMOL/L (3.5-5.1) Chloride Level 120 MMOL/L (98-107) H Carbon Dioxide Level 22 MMOL/L (21-32) Anion Gap 12 mmol/L (5-15) Blood Urea Nitrogen 32 mg/dL (7-18) H Creatinine 1.3 MG/DL (0.55-1.30) Estimat Glomerular Filtration Rate mL/min (>60) Glucose Level 327 MG/DL (74-106) #H Calcium Level 8.2 MG/DL (8.5-10.1) L Phosphorus Level 1.9 MG/DL (2.5-4.9) L Magnesium Level 2.0 MG/DL (1.8-2.4) Total Bilirubin 0.7 MG/DL (0.2-1.0) Aspartate Amino Transf (AST/SGOT) 57 U/L (15-37) H Alanine Aminotransferase (ALT/SGPT) 28 U/L (12-78) Alkaline Phosphatase 63 U/L (46-116) C-Reactive Protein, Quantitative 20.4 mg/dL (0.00-0.90) H Total Protein 6.7 G/DL (6.4-8.2) Albumin 1.7 G/DL (3.4-5.0) L Globulin 5.0 g/dL Albumin/Globulin Ratio 0.3 (1.0-2.7) L Amylase Level 221 U/L (25-115) H Lipase 1199 U/L (73-393) H Plan Problems: (1) Failure to thrive (2) Hip fracture, left Assessment & Plan: lucency noted on plain films no pain on exam repeat films ordered (3) Severe protein-calorie malnutrition (4) Rhabdomyolysis (5) Acidosis (6) Adult Failure To Thrive Assessment & Plan: tube feeds once ng replaced (7) Pressure Ulcer Of Sacral Region, Unstageable Assessment & Plan: 1) Dehydration Assessment & Plan: AMS, found down dehydration improved with IVF ICD Codes: E86.0 - Dehydration SNOMED: 10566336 (2) Failure to thrive SNOMED: 46408180 (3) Rhabdomyolysis Assessment & Plan: likely from being down IV fluids trend labs will monitor ICD Codes: M62.82 - Rhabdomyolysis SNOMED: 531096326 (4) Blood blister Assessment & Plan: Patient presented with multiple DTI and Blood blisters Found down prior and noted on eval in ED at [facility]. Seen upon admission to [facility] Patient with 8.8cm x 9cm sacral DTI with oozing on right sacral with resorbing blood blister. periwound intact and stable. Right scapula DTI 9.9cm x 5cm purple and indurated without drainage Left thoracic DTI 1cm x 3.5cm purple and indurated without drainage bilateral heels stable and soft with blanching no other skin concerns noted at this time Tx Plan: Monitor wounds for drainage. Will apply skin protectant and Optifoam dressings Daily and prn saturation Keep heels off loaded with pillows Air soft mattress Turn q2h Nutritional optimization Will follow with recs. ICD Codes: T14.8XXA - Other injury of unspecified body region, initial encounter SNOMED: 820700476 (5) Lactic acid acidosis Assessment & Plan: IV fluids resuscitation trend ICD Codes: E87.2 - Acidosis SNOMED: 57791182 (6) Hip fracture, left Assessment & Plan: lucency noted on plain films no pain on exam repeat films ordered ICD Codes: S72.002A - Fracture of unspecified part of neck of left femur, initial encounter for closed fracture SNOMED: 564892021 (7) Deep tissue injury ICD Codes: T14.8XXA - Other injury of unspecified body region, initial encounter SNOMED: 675180812 James Breen Aug 29, 2019 14:27
--- NOTE | 2019-08-29 14:30 | NUR ---
NURSE NOTES: Results per radiologist,N/G tube to be advance 5cm,advance per recommendation 5cm,Kim narayanan aware and will confirm by Abdominal xray .
--- NOTE | 2019-08-29 15:03 | Diagnostic Imaging Report ---
EXAM: XR Abdomen, 2 Views CLINICAL HISTORY: NGT TECHNIQUE: Frontal view of the abdomen pelvis with upright view of the abdomen. COMPARISON: Abdomen film 11 [id number] 948 FINDINGS: Lower thorax: Prominent left hilum chest. Intraperitoneal space: No free air. Gastrointestinal tract: Unremarkable. No dilation. Bones joints: Degenerative changes of the spine. Tubes, lines and devices: NG tube has been advanced, tip in the stomach, proximal side-port at the GE junction, may be advanced 5 cm. IMPRESSION: 1. NG tube has been advanced, tip in the stomach, proximal side-port at the GE junction, may be advanced 5 cm. 2. Prominent left hilum chest. <MYCVCSECTION> Critical Value Communications 11 16 19 15:10 Verify Receipt with Nurse Verified receipt with Charge Nurse Darlyn in [facility] on 08 29 15:09 (-08:00)
--- NOTE | 2019-08-29 15:05 | Internal Med Progress Note ---
Subjective Date of Service: Aug 29, 2019 Physician Name Tello Cobb Attending Physician Cirilo Rome MD Current Medications Medications (Trade) Dose Ordered Sig/Debi Route PRN Reason Start Time Stop Time Status Last Admin Dose Admin Acetaminophen (Tylenol) 650 mg Q4H PRN RECTAL Prn Headache/Temp > 101 08/27/19 12:00 09/26/19 11:59 08/29/19 00:34 Acetaminophen (Tylenol) 650 mg Q6H PRN ORAL Mild Pain/Temp > 100.5 08/27/19 02:00 09/26/19 01:59 Acetaminophen/ Hydrocodone Bitart ([place] 5/325) 1 tab Q6H PRN ORAL For Pain 08/27/19 02:00 09/03/19 01:59 Amlodipine Besylate (Norvasc) 10 mg DAILY ORAL 08/27/19 09:00 09/26/19 08:59 08/27/19 08:47 Aspirin (Ecotrin) 81 mg DAILY ORAL 08/27/19 09:00 09/26/19 08:59 08/27/19 08:47 Benazepril HCl (Lotensin) 10 mg DAILY ORAL 08/27/19 09:00 09/26/19 08:59 08/27/19 08:47 Ceftriaxone Sodium 1 gm/ Dextrose 55 ml @ 110 mls/hr Q24H IVPB 08/28/19 18:00 09/04/19 17:59 08/28/19 18:08 Dextrose 1,000 ml @ 100 mls/hr Q10H IV 08/28/19 10:00 09/27/19 09:59 08/29/19 07:46 Dextrose (Dextrose 50%) 25 ml Q30M PRN IV Hypoglycemia 08/27/19 15:15 09/26/19 15:14 Dextrose (Dextrose 50%) 50 ml Q30M PRN IV Hypoglycemia 08/27/19 15:15 09/26/19 15:14 Heparin Sodium (Porcine) (Heparin 5000 units/ml) 5,000 units EVERY 8 HOURS SUBQ 08/27/19 06:00 09/26/19 05:59 08/29/19 14:48 Hydroxyurea (Hydrea) 500 mg DAILY ORAL 08/27/19 09:00 09/01/19 08:59 08/27/19 08:47 Insulin Aspart (NovoLOG) BEFORE MEALS AND HS SUBQ 08/29/19 11:30 09/28/19 11:29 Metformin HCl (Glucophage) 1,000 mg BID ORAL 08/27/19 18:00 09/26/19 17:59 08/28/19 17:24 Morphine Sulfate (Morphine Sulfate) 2 mg Q6H PRN IVP Severe Pain (Pain Scale 7-10) 08/27/19 02:00 09/03/19 01:59 Potassium Phosphate 15 mm/ Sodium Chloride 280 ml @ 46.67 mls/ hr ONCE ONCE IV 08/29/19 12:30 08/29/19 18:29 08/29/19 14:46 Allergies: Coded Allergies: No Known Allergies (Unverified , 08/27/19) ROS Limited/Unobtainable: Yes Subjective 78 YO M admitted with altered mental status. Now rhabdomyolysis. Cover for Int Dusty-Dr Rome Objective Last Vital Signs Date Time Temp Pulse Resp B/P (MAP) Pulse Ox O2 Delivery O2 Flow Rate FiO2 08/29/19 12:35 94 21 98 Room Air 21 08/29/19 12:00 97.2 131/66 (87) Laboratory Tests Test 08/28/19 18:15 08/29/19 07:18 Urine Color Yellow Urine Appearance Cloudy Urine pH 6 (4.5-8.0) Urine Specific [place] 1.010 (1.005-1.035) Urine Protein 3+ (NEGATIVE) H Urine Glucose (UA) Negative (NEGATIVE) Urine Ketones Negative (NEGATIVE) Urine Blood 5+ (NEGATIVE) H Urine Nitrite Negative (NEGATIVE) Urine Bilirubin Negative (NEGATIVE) Urine Urobilinogen 4 MG/DL (0.0-1.0) H Urine Leukocyte Esterase 1+ (NEGATIVE) H Urine RBC Tntc /HPF (0 - 0) H Urine WBC 5-10 /HPF (0 - 0) H Urine Squamous Epithelial Cells Occasional /LPF Urine Amorphous Sediment Moderate /LPF (NONE) H Urine Bacteria Moderate /HPF (NONE) H White Blood Count 7.2 K/UL (4.8-10.8) Red Blood Count 4.72 M/UL (4.70-6.10) Hemoglobin 13.1 G/DL (14.2-18.0) L Hematocrit 41.6 % (42.0-52.0) L Mean Corpuscular Volume 88 FL (80-99) Mean Corpuscular Hemoglobin 27.7 PG (27.0-31.0) Mean Corpuscular Hemoglobin Concent 31.3 G/DL (32.0-36.0) L Red Cell Distribution Width 15.3 % (11.6-14.8) H Platelet Count 179 K/UL (150-450) Mean Platelet Volume 9.1 FL (6.5-10.1) Neutrophils (%) (Auto) 83.9 % (45.0-75.0) H Lymphocytes (%) (Auto) 10.8 % (20.0-45.0) L Monocytes (%) (Auto) 5.1 % (1.0-10.0) Eosinophils (%) (Auto) 0.1 % (0.0-3.0) Basophils (%) (Auto) 0.1 % (0.0-2.0) Erythrocyte Sedimentation Rate 59 MM/HR (0-20) H Sodium Level 154 MMOL/L (136-145) H Potassium Level 3.5 MMOL/L (3.5-5.1) Chloride Level 120 MMOL/L (98-107) H Carbon Dioxide Level 22 MMOL/L (21-32) Anion Gap 12 mmol/L (5-15) Blood Urea Nitrogen 32 mg/dL (7-18) H Creatinine 1.3 MG/DL (0.55-1.30) Estimat Glomerular Filtration Rate mL/min (>60) Glucose Level 327 MG/DL (74-106) #H Calcium Level 8.2 MG/DL (8.5-10.1) L Phosphorus Level 1.9 MG/DL (2.5-4.9) L Magnesium Level 2.0 MG/DL (1.8-2.4) Total Bilirubin 0.7 MG/DL (0.2-1.0) Aspartate Amino Transf (AST/SGOT) 57 U/L (15-37) H Alanine Aminotransferase (ALT/SGPT) 28 U/L (12-78) Alkaline Phosphatase 63 U/L (46-116) C-Reactive Protein, Quantitative 20.4 mg/dL (0.00-0.90) H Total Protein 6.7 G/DL (6.4-8.2) Albumin 1.7 G/DL (3.4-5.0) L Globulin 5.0 g/dL Albumin/Globulin Ratio 0.3 (1.0-2.7) L Amylase Level 221 U/L (25-115) H Lipase 1199 U/L (73-393) H Microbiology Date/Time Source Procedure Growth Status 08/27/19 03:15 Nasal Nares Left MRSA Culture - Final NO METHICILLIN RESISTANT STAPH AUREUS... Complete 08/28/19 18:15 Urine,Clean Catch Urine Culture - Preliminary NO GROWTH Resulted 08/27/19 03:15 Rectum - Final NO CARBAPENEM-RESISTANT ENTEROBACTERI... Complete 08/27/19 03:15 Rectum VRE Culture - Final NO VANCOMYCIN RESISTANT ENTEROCOCCUS ... Complete Intake and Output 08/28/19 08/29/19 19:00 07:00 Intake Total 210 ml 990 ml Output Total 800 ml 350 ml Balance -590 ml 640 ml Free Water 300 ml Tube Feeding 210 ml 690 ml Output Urine Total 800 ml 350 ml Objective PHYSICAL EXAMINATION: GENERAL: The patient is a well-developed and well-nourished male, who is essentially nonverbal. HEENT: Eyes, pupils equal and responsive to light and accommodation. Extraocular movements are intact. NECK: Supple without lymphadenopathy. CHEST: Lungs are clear to auscultation bilaterally without wheezes or rales. CARDIOVASCULAR: Regular rhythm and rate. S1, S2 normal without murmurs, rubs, or gallops. ABDOMEN: Soft, nontender, nondistended. Positive bowel sounds. No evidence of hepatosplenomegaly. Currently, no rebound or guarding noted. EXTREMITIES: Negative for clubbing, cyanosis, or edema. RECTAL: Not performed. GENITAL: Not performed. NEUROLOGIC: Cranial nerves II through XII are grossly intact without focal deficits. Assessment/Plan Assessment/Plan ASSESSMENT: This is a 78-year-old male with: 1. Altered mental status. 2. Fracture of the left femur greater trochanter. 3. Rhabdomyolysis. 4. Dehydration. 5. Diabetes type 2. 6. Hypertension. 7. Hypercholesterolemia. 8. Pancreatitis TREATMENT: 1. Altered mental status, this may be secondary to dehydration versus acute cerebrovascular accident. An MRI of the brain is pending. 2. Fracture of the left femur greater trochanter. An Orthopedic consultation has been obtained with Dr. Frederic Weir. 3. Rhabdomyolysis. The patient is currently receiving intravenous fluids. 4. Dehydration. The patient is currently receiving intravenous fluids. 5. Diabetes type 2. A NovoLog sliding scale has been instituted. 6. Hypertension. Continue benazepril, hydrochlorothiazide as above. 7. Hypercholesterolemia. Continue pravastatin as above. 8. Await GI consult Tello Cobb MD Aug 29, 2019 15:05
--- NOTE | 2019-08-29 17:02 | Diagnostic Imaging Report ---
EXAM: XR Abdomen, 2 Views CLINICAL HISTORY: NGT TECHNIQUE: Frontal view of the abdomen pelvis with upright view of the abdomen. COMPARISON: 08 29 2019 1415 FINDINGS: Lower thorax: Esophagogastric tube tip projects near the expected location of the gastroduodenal junction. Intraperitoneal space: No free air. Gastrointestinal tract: Gas filled loops of nondilated bowel are present throughout the abdomen. Moderate colonic stool. Bones joints: No significant abnormality. IMPRESSION: Esophagogastric tube tip projects near the expected location of the gastroduodenal junction.
--- NOTE | 2019-08-29 17:20 | NUR ---
NURSE NOTES: Result of abdomoinal xray after advanced per recommendation ,Kim narayanan made aware of the results and okay to resume N/G tube feedings.N/G tube also checked by auscultation.
[2019-08-29] MEDS: cefTRIAXone 1 GM in D5W 55 ML IVPB SCH (17:39)
--- NOTE | 2019-08-29 19:42 | NUR ---
HAND-OFF: Report given to FADY TURNER.
--- NOTE | 2019-08-29 19:45 | NUR ---
NURSE NOTES: Received patient awake, non-verbal, tolerating his NG-tube feeding well.
[2019-08-30 04:07] VITALS: BP 121/63
[2019-08-30] MEDS: Heparin 5000 units/ml inj SUBQ SCH ×3 (05:37→22:16)
[2019-08-30] MEDS: NovoLOG Insulin Flexpen SUBQ SCH ×4 (05:38→20:28)
[2019-08-30 06:44] LABS: BASOPHILS % (AUTO) 0.4 % (0.0-2.0); EOSINOPHILS % (AUTO) 0.1 % (0.0-3.0); HEMOGLOBIN 12.3 G/DL (14.2-18.0); LYMPHOCYTES % (AUTO) 12.7 % (20.0-45.0); MEAN CORPUSCULAR VOLUME 90 FL (80-99); MONOCYTES % (AUTO) 6.8 % (1.0-10.0); PLATELET COUNT 178 K/UL (150-450); RED BLOOD COUNT 4.46 M/UL (4.70-6.10); RED CELL DISTRIBUTION WIDTH 15.8 % (11.6-14.8)
[2019-08-30 07:22] LABS: ANION GAP 4 mmol/L (5-15); BLOOD UREA NITROGEN 26 mg/dL (7-18); CARBON DIOXIDE 29 MMOL/L (21-32); CHLORIDE 113 MMOL/L (98-107); CREATININE 1.3 MG/DL (0.55-1.30); PHOSPHORUS 2.1 MG/DL (2.5-4.9); POTASSIUM 3.7 MMOL/L (3.5-5.1); SODIUM 146 MMOL/L (136-145)
--- NOTE | 2019-08-30 07:22 | NUR ---
HAND-OFF: Report given to JOHNNY Potter.
--- NOTE | 2019-08-30 07:54 | NUR ---
Patient eyes open,patient respond to questions by nodding head,patient nods head yes when asked if he is okay.Respirations unlabored.N/G tube in placed and checked by auscultation.Abomen is soft,no N/G tube feeding residual noted at this time.Adams catheter is in place and draining ej color urine.IV fluids infsing as ordered.Patient has soft wrist restraints on will provide ROM and skin care.HOB is elevated.Bed alarm is on,call light within reach.
[2019-08-30 08:00] VITALS: BP 140/64
[2019-08-30] MEDS: Aspirin EC 81mg tab ORAL SCH (09:00)
[2019-08-30] MEDS: Hydroxyurea 500mg cap ORAL SCH (09:00)
[2019-08-30 09:20] VITALS: BP 122/61
[2019-08-30] MEDS: metFORMIN 500mg tab ORAL SCH ×2 (09:21→17:34)
[2019-08-30] MEDS: Benazepril 10mg tab ORAL SCH (09:22)
--- NOTE | 2019-08-30 10:59 | Surgery Progress Note ---
Surgery Progress Note Subjective Additional Comments no acute events improved comfortable much more responsive tolerating feeds via tube states he feels well is still non verbal but very responsive with his expressions and motions. Objective Last 24 Hour Vital Signs Date Time Temp Pulse Resp B/P (MAP) Pulse Ox O2 Delivery O2 Flow Rate FiO2 08/30/19 09:40 Room Air 08/30/19 09:22 122/61 08/30/19 09:22 96 122/61 08/30/19 09:20 96 122/61 (81) 08/30/19 08:00 97.2 95 18 140/64 (89) 95 08/30/19 04:07 99.3 94 18 121/63 (82) 96 08/29/19 23:52 98.0 95 20 104/51 (68) 97 08/29/19 22:00 99.0 08/29/19 20:36 Room Air 08/29/19 20:10 100.0 98 20 134/68 (90) 98 08/29/19 20:00 101 20 99 Room Air 21 08/29/19 19:56 100 20 99 Room Air 21 08/29/19 16:00 99.9 95 22 127/65 (85) 99 08/29/19 12:35 94 21 98 Room Air 21 08/29/19 12:30 81 18 96 Room Air 21 08/29/19 12:00 97.2 92 20 131/66 (87) 97 I&O Intake and Output 08/29/19 08/30/19 18:59 06:59 Intake Total 860 ml 2200 ml Output Total 1200 ml 700 ml Balance -340 ml 1500 ml Free Water 300 ml IV Total 800 ml 1180 ml Tube Feeding 60 ml 720 ml Output Urine Total 1200 ml 700 ml # Bowel Movements 1 Dressing: saturated Wound: clean Drains: other Cardiovascular: RSR Respiratory: clear Abdomen: soft, flat, non-tender, present bowel sounds Extremities: no cyanosis, other Laboratory Tests Test 08/30/19 05:20 White Blood Count 6.0 K/UL (4.8-10.8) Red Blood Count 4.46 M/UL (4.70-6.10) L Hemoglobin 12.3 G/DL (14.2-18.0) L Hematocrit 40.0 % (42.0-52.0) L Mean Corpuscular Volume 90 FL (80-99) Mean Corpuscular Hemoglobin 27.7 PG (27.0-31.0) Mean Corpuscular Hemoglobin Concent 30.9 G/DL (32.0-36.0) L Red Cell Distribution Width 15.8 % (11.6-14.8) H Platelet Count 178 K/UL (150-450) Mean Platelet Volume 9.2 FL (6.5-10.1) Neutrophils (%) (Auto) 80.0 % (45.0-75.0) H Lymphocytes (%) (Auto) 12.7 % (20.0-45.0) L Monocytes (%) (Auto) 6.8 % (1.0-10.0) Eosinophils (%) (Auto) 0.1 % (0.0-3.0) Basophils (%) (Auto) 0.4 % (0.0-2.0) Sodium Level 146 MMOL/L (136-145) H Potassium Level 3.7 MMOL/L (3.5-5.1) Chloride Level 113 MMOL/L (98-107) H Carbon Dioxide Level 29 MMOL/L (21-32) Anion Gap 4 mmol/L (5-15) L Blood Urea Nitrogen 26 mg/dL (7-18) H Creatinine 1.3 MG/DL (0.55-1.30) Estimat Glomerular Filtration Rate mL/min (>60) Glucose Level 320 MG/DL (74-106) H Calcium Level 8.0 MG/DL (8.5-10.1) L Phosphorus Level 2.1 MG/DL (2.5-4.9) L Plan Problems: (1) Failure to thrive (2) Hip fracture, left Assessment & Plan: lucency noted on plain films no pain on exam repeat films ordered (3) Severe protein-calorie malnutrition (4) Rhabdomyolysis (5) Acidosis (6) Adult Failure To Thrive Assessment & Plan: cont tube feeds (7) Pressure Ulcer Of Sacral Region, Unstageable Assessment & Plan: 1) Dehydration Assessment & Plan: AMS, found down dehydration improved with IVF ICD Codes: E86.0 - Dehydration SNOMED: 69820246 (2) Failure to thrive SNOMED: 39380300 (3) Rhabdomyolysis Assessment & Plan: likely from being down IV fluids trend labs will monitor ICD Codes: M62.82 - Rhabdomyolysis SNOMED: 212666125 (4) Blood blister Assessment & Plan: Patient presented with multiple DTI and Blood blisters Found down prior and noted on eval in ED at [place]. Seen upon [place] [facility] Patient with 8.8cm x 9cm sacral DTI with oozing on right sacral with resorbing blood blister. periwound intact and stable. Right scapula DTI 9.9cm x 5cm purple and indurated without drainage Left thoracic DTI 1cm x 3.5cm purple and indurated without drainage bilateral heels stable and soft with blanching no other skin concerns noted at this time Tx Plan: Monitor wounds for drainage. Will apply skin protectant and Optifoam dressings Daily and prn saturation Keep heels off loaded with pillows Air soft mattress Turn q2h Nutritional optimization Will follow with recs. ICD Codes: T14.8XXA - Other injury of unspecified body region, initial encounter SNOMED: 023365682 (5) Lactic acid acidosis Assessment & Plan: IV fluids resuscitation trend ICD Codes: E87.2 - Acidosis SNOMED: 13337306 (6) Hip fracture, left Assessment & Plan: lucency noted on plain films no pain on exam repeat films ordered ICD Codes: S72.002A - Fracture of unspecified part of neck of left femur, initial encounter for closed fracture SNOMED: 949848010 (7) Deep tissue injury ICD Codes: T14.8XXA - Other injury of unspecified body region, initial encounter SNOMED: 058799897 James Breen Aug 30, 2019 10:59
--- NOTE | 2019-08-30 11:00 | Pulmonology Progress Note ---
Assessment/Plan Assessment/Plan ASSESSMENT Acute toxic metabolic encephalopathy Left hip fracture Possible UTI Severe protein calorie malnutrition Diabetes mellitus Hypertension Dehydration Hypernatremia Rhabdomyolysis Deep tissue injury Elevated amylase and lipase PLAN OF CARE MS floor MRI of the brain -no acute intracranial findings X-ray of the left hip with findings suggestive fracture: chronic versus acute ; surgery on board. pain management IVF; monitor renal parameters, electrolytes ; correct electrolytes further as needed and avoid nephrotoxic's additional K phos today trend CK ; rhabdo likely due to extended immobility after fall trend lipase and amylase abdominal ultrasound - no acute findings NGT GI eval- pending aspiration precautions per ST continue with non-oral feeding , strict aspir precautions may need PEG on empiric abx for possible UTI UCX +GPC, fup with final cx DVT prophylaxis O2 HHN PRN BS management with metformin and SSI , [id number], BS elevated/ on D5 W due to hyperNa and dehydartion sensitive scale changed to average , add levemir dc D5W when Na stabilized BP management with JENNIFER inhibitor supportive care case discussed and evaluated by supervising physician Subjective Allergies: Coded Allergies: No Known Allergies (Unverified , 08/27/19) Subjective s/p NGT reinsertion yesterday; abd X ray confirmed placement remains afebrile, no leucocytosis lipase and amylase trending up Objective Last 24 Hour Vital Signs Date Time Temp Pulse Resp B/P (MAP) Pulse Ox O2 Delivery O2 Flow Rate FiO2 08/30/19 09:40 Room Air 08/30/19 09:22 122/61 08/30/19 09:22 96 122/61 08/30/19 09:20 96 122/61 (81) 08/30/19 08:00 97.2 95 18 140/64 (89) 95 08/30/19 04:07 99.3 94 18 121/63 (82) 96 08/29/19 23:52 98.0 95 20 104/51 (68) 97 08/29/19 22:00 99.0 08/29/19 20:36 Room Air 08/29/19 20:10 100.0 98 20 134/68 (90) 98 08/29/19 20:00 101 20 99 Room Air 21 08/29/19 19:56 100 20 99 Room Air 21 08/29/19 16:00 99.9 95 22 127/65 (85) 99 08/29/19 12:35 94 21 98 Room Air 21 08/29/19 12:30 81 18 96 Room Air 21 08/29/19 12:00 97.2 92 20 131/66 (87) 97 Intake and Output 08/29/19 08/30/19 19:00 07:00 Intake Total 860 ml 2200 ml Output Total 850 ml 700 ml Balance 10 ml 1500 ml Free Water 300 ml IV Total 800 ml 1180 ml Tube Feeding 60 ml 720 ml Output Urine Total 850 ml 700 ml # Bowel Movements 1 Objective General Appearance: no acute distress, cachetic, awake and more responsive , bedridden AA male HEENT: normocephalic, atraumatic, anicteric, NG tube Respiratory/Chest: lungs clear - with moderate air exchange Cardiovascular: normal rate Abdomen: normal bowel sounds, soft, non tender Neurologic/Psychiatric: abnormal gait - bedridden , more responsive, contracted Musculoskeletal: atrophy Microbiology Date/Time Source Procedure Growth Status 08/28/19 20:45 Blood Blood Culture - Preliminary NO GROWTH AFTER 24 HOURS Resulted 08/28/19 20:30 Blood Blood Culture - Preliminary NO GROWTH AFTER 24 HOURS Resulted 08/28/19 18:15 Urine,Clean Catch Urine Culture - Preliminary Gram Positive Cocci Resulted Laboratory Tests 08/30/19 05:20: White Blood Count 6.0, Red Blood Count 4.46L, Hemoglobin 12.3L, Hematocrit 40.0L , Mean Corpuscular Volume 90, Mean Corpuscular Hemoglobin 27.7, Mean Corpuscular Hemoglobin Concent 30.9L, Red Cell Distribution Width 15.8H, Platelet Count 178, Mean Platelet Volume 9.2, Neutrophils (%) (Auto) 80.0H, Lymphocytes (%) (Auto) 12.7L, Monocytes (%) (Auto) 6.8, Eosinophils (%) (Auto) 0.1, Basophils (%) (Auto) 0.4, Sodium Level 146H, Potassium Level 3.7, Chloride Level 113H, Carbon Dioxide Level 29, Anion Gap 4L, Blood Urea Nitrogen 26H, Creatinine 1.3, Estimat Glomerular Filtration Rate , Glucose Level 320H, Calcium Level 8.0L, Phosphorus Level 2.1L Current Medications Medications (Trade) Dose Ordered Sig/Debi Route PRN Reason Start Time Stop Time Status Last Admin Dose Admin Acetaminophen (Tylenol) 650 mg Q4H PRN RECTAL Prn Headache/Temp > 101 08/27/19 12:00 09/26/19 11:59 08/29/19 00:34 Acetaminophen (Tylenol) 650 mg Q6H PRN ORAL Mild Pain/Temp > 100.5 08/27/19 02:00 09/26/19 01:59 08/29/19 21:26 Acetaminophen/ Hydrocodone Bitart ([place] 5/325) 1 tab Q6H PRN ORAL For Pain 08/27/19 02:00 09/03/19 01:59 Amlodipine Besylate (Norvasc) 10 mg DAILY ORAL 08/27/19 09:00 09/26/19 08:59 08/30/19 09:22 Aspirin (Ecotrin) 81 mg DAILY ORAL 08/27/19 09:00 09/26/19 08:59 08/27/19 08:47 Benazepril HCl (Lotensin) 10 mg DAILY ORAL 08/27/19 09:00 09/26/19 08:59 08/30/19 09:22 Ceftriaxone Sodium 1 gm/ Dextrose 55 ml @ 110 mls/hr Q24H IVPB 08/28/19 18:00 09/04/19 17:59 08/29/19 17:39 Dextrose 1,000 ml @ 100 mls/hr Q10H IV 08/28/19 10:00 09/27/19 09:59 08/30/19 08:11 Dextrose (Dextrose 50%) 25 ml Q30M PRN IV Hypoglycemia 08/27/19 15:15 09/26/19 15:14 Dextrose (Dextrose 50%) 50 ml Q30M PRN IV Hypoglycemia 08/27/19 15:15 09/26/19 15:14 Heparin Sodium (Porcine) (Heparin 5000 units/ml) 5,000 units EVERY 8 HOURS SUBQ 08/27/19 06:00 09/26/19 05:59 08/29/19 21:27 Hydroxyurea (Hydrea) 500 mg DAILY ORAL 08/27/19 09:00 09/01/19 08:59 08/27/19 08:47 Insulin Aspart (NovoLOG) BEFORE MEALS AND HS SUBQ 08/29/19 11:30 09/28/19 11:29 08/30/19 05:38 Metformin HCl (Glucophage) 1,000 mg BID ORAL 08/27/19 18:00 09/26/19 17:59 08/30/19 09:21 Morphine Sulfate (Morphine Sulfate) 2 mg Q6H PRN IVP Severe Pain (Pain Scale 7-10) 08/27/19 02:00 09/03/19 01:59 Kim Mahoney NP Aug 30, 2019 11:00
[2019-08-30 11:20] LABS: AMYLASE 310 U/L (25-115); CREATINE KINASE 905 U/L (26-308)
[2019-08-30 12:00] VITALS: BP 136/73
[2019-08-30] MEDS ORDERED: Potassium Phosphate 15 MM in NS 275 ML IV SCH (12:00)
[2019-08-30] MEDS: Levemir Flexpen SUBQ SCH (12:15)
--- NOTE | 2019-08-30 14:11 | Internal Med Progress Note ---
Subjective Date of Service: Aug 30, 2019 Physician Name Tello Cobb Attending Physician Cirilo Rome MD Current Medications Medications (Trade) Dose Ordered Sig/Debi Route PRN Reason Start Time Stop Time Status Last Admin Dose Admin Acetaminophen (Tylenol) 650 mg Q4H PRN RECTAL Prn Headache/Temp > 101 08/27/19 12:00 09/26/19 11:59 08/29/19 00:34 Acetaminophen (Tylenol) 650 mg Q6H PRN ORAL Mild Pain/Temp > 100.5 08/27/19 02:00 09/26/19 01:59 08/29/19 21:26 Acetaminophen/ Hydrocodone Bitart ([place] 5/325) 1 tab Q6H PRN ORAL For Pain 08/27/19 02:00 09/03/19 01:59 Amlodipine Besylate (Norvasc) 10 mg DAILY ORAL 08/27/19 09:00 09/26/19 08:59 08/30/19 09:22 Aspirin (Ecotrin) 81 mg DAILY ORAL 08/27/19 09:00 09/26/19 08:59 08/27/19 08:47 Benazepril HCl (Lotensin) 10 mg DAILY ORAL 08/27/19 09:00 09/26/19 08:59 08/30/19 09:22 Ceftriaxone Sodium 1 gm/ Dextrose 55 ml @ 110 mls/hr Q24H IVPB 08/28/19 18:00 09/04/19 17:59 08/29/19 17:39 Dextrose 1,000 ml @ 100 mls/hr Q10H IV 08/28/19 10:00 09/27/19 09:59 08/30/19 08:11 Dextrose (Dextrose 50%) 25 ml Q30M PRN IV Hypoglycemia 08/27/19 15:15 09/26/19 15:14 Dextrose (Dextrose 50%) 50 ml Q30M PRN IV Hypoglycemia 08/27/19 15:15 09/26/19 15:14 Heparin Sodium (Porcine) (Heparin 5000 units/ml) 5,000 units EVERY 8 HOURS SUBQ 08/27/19 06:00 09/26/19 05:59 08/29/19 21:27 Hydroxyurea (Hydrea) 500 mg DAILY ORAL 08/27/19 09:00 09/01/19 08:59 08/27/19 08:47 Insulin Aspart (NovoLOG) BEFORE MEALS AND HS SUBQ 08/29/19 11:30 09/28/19 11:29 08/30/19 12:12 Insulin Detemir (Levemir) 6 units DAILY SUBQ 08/30/19 12:00 09/29/19 11:59 08/30/19 12:15 Metformin HCl (Glucophage) 1,000 mg BID ORAL 08/27/19 18:00 09/26/19 17:59 08/30/19 09:21 Morphine Sulfate (Morphine Sulfate) 2 mg Q6H PRN IVP Severe Pain (Pain Scale 7-10) 08/27/19 02:00 09/03/19 01:59 Allergies: Coded Allergies: No Known Allergies (Unverified , 08/27/19) ROS Limited/Unobtainable: Yes Subjective 78 YO M admitted with altered mental status. Now rhabdomyolysis. Cover for Int Dusty-Dr Rome Objective Last Vital Signs Date Time Temp Pulse Resp B/P (MAP) Pulse Ox O2 Delivery O2 Flow Rate FiO2 08/30/19 12:00 98.8 96 16 136/73 (94) 97 08/30/19 09:40 Room Air 08/29/19 20:00 21 Laboratory Tests Test 08/30/19 05:20 White Blood Count 6.0 K/UL (4.8-10.8) Red Blood Count 4.46 M/UL (4.70-6.10) L Hemoglobin 12.3 G/DL (14.2-18.0) L Hematocrit 40.0 % (42.0-52.0) L Mean Corpuscular Volume 90 FL (80-99) Mean Corpuscular Hemoglobin 27.7 PG (27.0-31.0) Mean Corpuscular Hemoglobin Concent 30.9 G/DL (32.0-36.0) L Red Cell Distribution Width 15.8 % (11.6-14.8) H Platelet Count 178 K/UL (150-450) Mean Platelet Volume 9.2 FL (6.5-10.1) Neutrophils (%) (Auto) 80.0 % (45.0-75.0) H Lymphocytes (%) (Auto) 12.7 % (20.0-45.0) L Monocytes (%) (Auto) 6.8 % (1.0-10.0) Eosinophils (%) (Auto) 0.1 % (0.0-3.0) Basophils (%) (Auto) 0.4 % (0.0-2.0) Sodium Level 146 MMOL/L (136-145) H Potassium Level 3.7 MMOL/L (3.5-5.1) Chloride Level 113 MMOL/L (98-107) H Carbon Dioxide Level 29 MMOL/L (21-32) Anion Gap 4 mmol/L (5-15) L Blood Urea Nitrogen 26 mg/dL (7-18) H Creatinine 1.3 MG/DL (0.55-1.30) Estimat Glomerular Filtration Rate mL/min (>60) Glucose Level 320 MG/DL (74-106) H Calcium Level 8.0 MG/DL (8.5-10.1) L Phosphorus Level 2.1 MG/DL (2.5-4.9) L Total Creatine Kinase 905 U/L (26-308) H Amylase Level 310 U/L (25-115) H Lipase > 2000 U/L (73-393) H Microbiology Date/Time Source Procedure Growth Status 08/28/19 20:45 Blood Blood Culture - Preliminary NO GROWTH AFTER 24 HOURS Resulted 08/28/19 20:30 Blood Blood Culture - Preliminary NO GROWTH AFTER 24 HOURS Resulted 08/28/19 18:15 Urine,Clean Catch Urine Culture - Preliminary Gram Positive Cocci Resulted Intake and Output 08/29/19 08/30/19 18:59 06:59 Intake Total 860 ml 2200 ml Output Total 1200 ml 700 ml Balance -340 ml 1500 ml Free Water 300 ml IV Total 800 ml 1180 ml Tube Feeding 60 ml 720 ml Output Urine Total 1200 ml 700 ml # Bowel Movements 1 Objective PHYSICAL EXAMINATION: GENERAL: The patient is a well-developed and well-nourished male, who is essentially nonverbal. HEENT: Eyes, pupils equal and responsive to light and accommodation. Extraocular movements are intact. NECK: Supple without lymphadenopathy. CHEST: Lungs are clear to auscultation bilaterally without wheezes or rales. CARDIOVASCULAR: Regular rhythm and rate. S1, S2 normal without murmurs, rubs, or gallops. ABDOMEN: Soft, nontender, nondistended. Positive bowel sounds. No evidence of hepatosplenomegaly. Currently, no rebound or guarding noted. EXTREMITIES: Negative for clubbing, cyanosis, or edema. RECTAL: Not performed. GENITAL: Not performed. NEUROLOGIC: Cranial nerves II through XII are grossly intact without focal deficits. Assessment/Plan Assessment/Plan ASSESSMENT: This is a 78-year-old male with: 1. Altered mental status. 2. Fracture of the left femur greater trochanter. 3. Rhabdomyolysis. 4. Dehydration. 5. Diabetes type 2. 6. Hypertension. 7. Hypercholesterolemia. 8. Pancreatitis TREATMENT: 1. Altered mental status, this may be secondary to dehydration versus acute cerebrovascular accident. An MRI of the brain is pending. 2. Fracture of the left femur greater trochanter. An Orthopedic consultation has been obtained with Dr. Frederic Weir. 3. Rhabdomyolysis. The patient is currently receiving intravenous fluids. 4. Dehydration. The patient is currently receiving intravenous fluids. 5. Diabetes type 2. A NovoLog sliding scale has been instituted. 6. Hypertension. Continue benazepril, hydrochlorothiazide as above. 7. Hypercholesterolemia. Continue pravastatin as above. 8. Await GI consult Tello Cobb MD Aug 30, 2019 14:11
[2019-08-30 16:00] VITALS: BP 135/79
[2019-08-30] MEDS ORDERED: Gadavist 7.5mMol/7.5ml vial IV PRN (16:00)
[2019-08-30] MEDS: cefTRIAXone 1 GM in D5W 55 ML IVPB SCH (17:38)
--- NOTE | 2019-08-30 18:30 | NUR ---
NURSE NOTES: N/G tube remains in place ,no residual noted,turned and position,ROM given,oral care.Adams catheter in place.HOB up.Bed alarmis on,call light within reach.
--- NOTE | 2019-08-30 18:45 | Consultation ---
DATE OF CONSULTATION: 08/30/2019 GASTROENTEROLOGY CONSULTATION CONSULTING PHYSICIAN: Ariel Gallegos M.D. REFERRING PHYSICIAN: Cirilo Rome M.D. CHIEF COMPLAINT: I was asked to see this patient by Dr. Rome for evaluation of pancreatitis. HISTORY OF PRESENT ILLNESS: The patient is a debilitated 78-year-old man, who comes into the hospital due to failure to thrive. He was found down and appears to have suffered from a hip fracture. He does not engage much in conversation although just nods yes and no to some questions. It appears that he possibly is confused. He denies any abdominal pain, however. During the hospital admission, he was found to have elevated lipase level, which has been higher today and therefore, this consultation was generated. The patient does not have any abnormalities on his abdominal ultrasound pertaining to gallbladder or the imaged portions of the pancreas or biliary tract. PAST MEDICAL HISTORY: Remarkable for history of diabetes per his use of diabetic medications and history of hypercholesterolemia per his use of cholesterol medications. The patient is also on Norvasc for hypertension. His list of medications also includes hydroxyurea, but the diagnosis for this medication is unclear. FAMILY HISTORY: Unavailable. SOCIAL HISTORY: Unobtainable. REVIEW OF SYSTEMS: Unobtainable. ALLERGIES: Reportedly none, although also unobtainable. PHYSICAL EXAMINATION: GENERAL: A debilitated man, who is minimally interactive, seen in his room. HEENT: Normocephalic and atraumatic. Sclerae anicteric. Oropharynx is clear. NECK: Supple. CHEST: Clear to auscultation. CARDIOVASCULAR: Revealed regular rate. ABDOMEN: Soft and flat. Good bowel sounds. There is no tenderness, masses, or organomegaly. EXTREMITIES: Revealed no edema. LABORATORY DATA: Noted. The ultrasound was reviewed. ASSESSMENT: This patient presents with lab evidence of pancreatitis, but without much findings on symptoms, exam, or ultrasound. Nonetheless, the patient should have MRI of his pancreas to rule out any focal pancreatic abnormalities such as pseudocyst formation or biliary ductal stones. Will followup for now and if he continues to not have any pain, then he should be started on clear-liquid diets and perhaps an MRI. RECOMMENDATIONS: 1. MRCP of the pancreas. 2. Hold p.o. intake. 3. Follow laboratory parameters and exam. 4. Further recommendations to follow. Thank you for asking me to participate in the care of this patient. Ariel Gallegos M.D. DR: Christina JOB#: [id number] CC: SHELLY
--- NOTE | 2019-08-30 19:50 | NUR ---
HAND-OFF: Report given to Kristal TURNER.
--- NOTE | 2019-08-30 19:57 | NUR ---
NURSE NOTES: Received patient in bed, asleep, no acute distress noted, IV site is clean dry and intact, mckinney catheter is in place, draining well, non behavioral restraints are in place, patient has pulled NG tube in the past, will be monitored for safety and comfort. Call light is within reach, bed is lowered, locked and alarm is on.
[2019-08-30 20:00] VITALS: BP 119/58
[2019-08-31] VITALS: BP 128/64
[2019-08-31 04:00] VITALS: BP 116/62
[2019-08-31] MEDS: NovoLOG Insulin Flexpen SUBQ SCH ×4 (05:49→22:16)
[2019-08-31] MEDS: Heparin 5000 units/ml inj SUBQ SCH ×3 (05:50→22:16)
--- NOTE | 2019-08-31 07:16 | NUR ---
HAND-OFF: Report given to Alyce TURNER.
--- NOTE | 2019-08-31 07:17 | NUR ---
NURSE NOTES: Received patient on bed awake. No SOB or cardiac distress. IV line intact and patent. With NG tube closed, feeding on hold and kept on NPO for MRI. Unable to sign consent for MRI of the abdomen with contrast. Attempted to contact Dr Gallegos. Addendum: 08/31/19 at 1022 by Alyce Wilson RN Bilateral wrist restraints on, pulses palpable, no skin issues noted on restraint site. FC intact and draining yellow urine. Skin dressings intact. HOB elevated. Bed locked in lowest position. Call light within reach.
[2019-08-31 07:27] LABS: ALANINE AMINOTRANSFERASE 41 U/L (12-78); ALBUMIN 1.7 G/DL (3.4-5.0); ALBUMIN/GLOBULIN RATIO 0.4 (1.0-2.7); ALKALINE PHOSPHATASE 123 U/L (46-116); ANION GAP 7 mmol/L (5-15); ASPARTATE AMINO TRANSFERASE 69 U/L (15-37); BILIRUBIN,TOTAL 0.5 MG/DL (0.2-1.0); BLOOD UREA NITROGEN 18 mg/dL (7-18); CALCIUM 8.2 MG/DL (8.5-10.1); CARBON DIOXIDE 28 MMOL/L (21-32); CHLORIDE 109 MMOL/L (98-107); PHOSPHORUS 2.4 MG/DL (2.5-4.9); POTASSIUM 3.6 MMOL/L (3.5-5.1); SODIUM 144 MMOL/L (136-145)
[2019-08-31 08:00] VITALS: BP 144/76
[2019-08-31] MEDS: Hydroxyurea 500mg cap ORAL SCH (09:17)
[2019-08-31] MEDS: Aspirin EC 81mg tab ORAL SCH (09:17)
[2019-08-31] MEDS: metFORMIN 500mg tab ORAL SCH (09:17)
[2019-08-31] MEDS: Benazepril 10mg tab ORAL SCH (09:18)
[2019-08-31] MEDS: Levemir Flexpen SUBQ SCH (09:19)
--- NOTE | 2019-08-31 09:50 | NUR ---
NURSE NOTES: Spoke to Dr Gallegos, he said to contact Dr. Smith since he was only covering for Dr Smith. Contacted GERMAN Souza, awaiting callback.
--- NOTE | 2019-08-31 10:04 | NUR ---
NURSE NOTES: Spoke to MANAGER POST Harley, said to go ahead with Abd MRI without contrast. Elmer of MRI made aware. Charge nurse made aware.
--- NOTE | 2019-08-31 10:15 | NUR ---
NURSE NOTES: Patient brought down for MRI of the abdomen without contrast.
--- NOTE | 2019-08-31 10:24 | Surgery Progress Note ---
Surgery Progress Note Subjective Additional Comments Patient seen and examined bedside. He is much more alert and awake today. He is actually talking today and able to voice sounds and says hello and that he is doing okay. No nausea vomiting fever chills. Labs improved. Tolerating tube feeds. States that he used to eat on his own. He is able to move his upper extremities and left lower extremity but does have a deficit in his right lower extremity. Objective Last 24 Hour Vital Signs Date Time Temp Pulse Resp B/P (MAP) Pulse Ox O2 Delivery O2 Flow Rate FiO2 08/31/19 09:18 144/76 08/31/19 09:17 94 144/76 08/31/19 08:00 98.1 94 18 144/76 (98) 95 08/31/19 07:51 88 18 97 Room Air 08/31/19 07:50 86 18 95 Room Air 08/31/19 04:00 97.9 95 20 116/62 (80) 97 08/31/19 00:00 98.9 95 20 128/64 (85) 95 08/30/19 21:22 Room Air 08/30/19 20:00 99.0 95 20 119/58 (78) 95 08/30/19 18:26 96 18 97 Room Air 08/30/19 18:24 94 18 94 Room Air 08/30/19 16:00 98.8 97 17 135/79 (97) 97 08/30/19 15:28 94 18 97 08/30/19 15:28 92 18 97 Room Air 08/30/19 12:00 98.8 96 16 136/73 (94) 97 I&O Intake and Output 08/30/19 08/31/19 19:00 07:00 Intake Total 2510 ml 850 ml Output Total 1100 ml Balance 1410 ml 850 ml Free Water 150 ml 150 ml IV Total 1100 ml 400 ml Tube Feeding 1260 ml 300 ml Output Urine Total 1100 ml Dressing: dry Wound: clean Cardiovascular: RSR Respiratory: clear Abdomen: soft, non-tender, present bowel sounds Extremities: no edema, no tenderness, no cyanosis, other Laboratory Tests Test 08/31/19 06:30 Sodium Level 144 MMOL/L (136-145) Potassium Level 3.6 MMOL/L (3.5-5.1) Chloride Level 109 MMOL/L (98-107) H Carbon Dioxide Level 28 MMOL/L (21-32) Anion Gap 7 mmol/L (5-15) Blood Urea Nitrogen 18 mg/dL (7-18) Creatinine 1.0 MG/DL (0.55-1.30) Estimat Glomerular Filtration Rate mL/min (>60) Glucose Level 291 MG/DL (74-106) H Calcium Level 8.2 MG/DL (8.5-10.1) L Phosphorus Level 2.4 MG/DL (2.5-4.9) L Total Bilirubin 0.5 MG/DL (0.2-1.0) Aspartate Amino Transf (AST/SGOT) 69 U/L (15-37) H Alanine Aminotransferase (ALT/SGPT) 41 U/L (12-78) Alkaline Phosphatase 123 U/L (46-116) H Total Protein 6.5 G/DL (6.4-8.2) Albumin 1.7 G/DL (3.4-5.0) L Globulin 4.8 g/dL Albumin/Globulin Ratio 0.4 (1.0-2.7) L Plan Problems: (1) Failure to thrive (2) Hip fracture, left Assessment & Plan: lucency noted on plain films no pain on exam repeat films ordered (3) Severe protein-calorie malnutrition (4) Rhabdomyolysis (5) Acidosis (6) Adult Failure To Thrive Assessment & Plan: able to voice sounds and says hello and that he is doing okay. No nausea vomiting fever chills. Labs improved. Tolerating tube feeds. States that he used to eat on his own. He is able to move his upper extremities and left lower extremity but does have a deficit in his right lower extremity. swallow eval (7) Pressure Ulcer Of Sacral Region, Unstageable Assessment & Plan: 1) Dehydration Assessment & Plan: AMS, found down dehydration improved with IVF ICD Codes: E86.0 - Dehydration SNOMED: 23426686 (2) Failure to thrive SNOMED: 77761810 (3) Rhabdomyolysis Assessment & Plan: likely from being down IV fluids trending down - resolved will monitor ICD Codes: M62.82 - Rhabdomyolysis SNOMED: 744296136 (4) Blood blister Assessment & Plan: Patient presented with multiple DTI and Blood blisters Found down prior and noted on eval in ED at [facility]. Seen upon admission to [facility] Patient with 8.8cm x 9cm sacral DTI with oozing on right sacral with resorbing blood blister. periwound intact and stable. Right scapula DTI 9.9cm x 5cm purple and indurated without drainage Left thoracic DTI 1cm x 3.5cm purple and indurated without drainage bilateral heels stable and soft with blanching no other skin concerns noted at this time Tx Plan: Monitor wounds for drainage. Will apply skin protectant and Optifoam dressings Daily and prn saturation Keep heels off loaded with pillows Air soft mattress Turn q2h Nutritional optimization Will follow with recs. ICD Codes: T14.8XXA - Other injury of unspecified body region, initial encounter SNOMED: 954805654 (5) Lactic acid acidosis Assessment & Plan: IV fluids resuscitation trend resolved ICD Codes: E87.2 - Acidosis SNOMED: 74563232 (6) Hip fracture, left Assessment & Plan: lucency noted on plain films no pain on exam repeat films ordered and noted ICD Codes: S72.002A - Fracture of unspecified part of neck of left femur, initial encounter for closed fracture SNOMED: 034229626 (7) Deep tissue injury ICD Codes: T14.8XXA - Other injury of unspecified body region, initial encounter SNOMED: 830877534 James Breen Aug 31, 2019 10:24
--- NOTE | 2019-08-31 11:15 | NUR ---
NURSE NOTES: Patient brought back to unit.
--- NOTE | 2019-08-31 11:38 | NUR ---
MRI/MRCP WO CONTRAST COMPLETED.
[2019-08-31 12:00] VITALS: BP 134/60
--- NOTE | 2019-08-31 12:34 | Pulmonology Progress Note ---
Assessment/Plan Problems: (1) Acute encephalopathy (2) Severe protein-calorie malnutrition (3) History of hypertension (4) Diabetes mellitus Assessment/Plan MRI reviewed, no acute illness NG tube is in might need antipsychotic to keep him calm public health social worker to look for family MRI of abdomen pending NG tube is in Subjective Interval Events: sedated Allergies: Coded Allergies: No Known Allergies (Unverified , 08/27/19) Objective Last 24 Hour Vital Signs Date Time Temp Pulse Resp B/P (MAP) Pulse Ox O2 Delivery O2 Flow Rate FiO2 08/31/19 12:00 98.1 93 18 134/60 (84) 97 08/31/19 09:18 144/76 08/31/19 09:17 94 144/76 08/31/19 09:00 Room Air 08/31/19 08:00 98.1 94 18 144/76 (98) 95 08/31/19 07:51 88 18 97 Room Air 08/31/19 07:50 86 18 95 Room Air 08/31/19 04:00 97.9 95 20 116/62 (80) 97 08/31/19 00:00 98.9 95 20 128/64 (85) 95 08/30/19 21:22 Room Air 08/30/19 20:00 99.0 95 20 119/58 (78) 95 08/30/19 18:26 96 18 97 Room Air 08/30/19 18:24 94 18 94 Room Air 08/30/19 16:00 98.8 97 17 135/79 (97) 97 08/30/19 15:28 94 18 97 08/30/19 15:28 92 18 97 Room Air Intake and Output 08/30/19 08/31/19 19:00 07:00 Intake Total 2510 ml 850 ml Output Total 1100 ml Balance 1410 ml 850 ml Free Water 150 ml 150 ml IV Total 1100 ml 400 ml Tube Feeding 1260 ml 300 ml Output Urine Total 1100 ml General Appearance: cachetic HEENT: normocephalic, atraumatic Respiratory/Chest: chest wall non-tender, lungs clear Cardiovascular: normal peripheral pulses, regular rhythm Abdomen: normal bowel sounds, soft, non tender Genitourinary: normal external genitalia Extremities: no clubbing Skin: no rash Microbiology Date/Time Source Procedure Growth Status 08/28/19 20:45 Blood Blood Culture - Preliminary NO GROWTH AFTER 48 HOURS Resulted 08/28/19 20:30 Blood Blood Culture - Preliminary NO GROWTH AFTER 48 HOURS Resulted 08/28/19 18:15 Urine,Clean Catch Urine Culture - Final Staphylococcus Haemolyticus Complete Laboratory Tests 08/31/19 06:30: Sodium Level 144, Potassium Level 3.6, Chloride Level 109H, Carbon Dioxide Level 28, Anion Gap 7, Blood Urea Nitrogen 18, Creatinine 1.0, Estimat Glomerular Filtration Rate , Glucose Level 291H, Calcium Level 8.2L, Phosphorus Level 2.4L, Total Bilirubin 0.5, Aspartate Amino Transf (AST/SGOT) 69H, Alanine Aminotransferase (ALT/SGPT) 41, Alkaline Phosphatase 123H, Total Protein 6.5, Albumin 1.7L, Globulin 4.8, Albumin/Globulin Ratio 0.4L Current Medications Medications (Trade) Dose Ordered Sig/Debi Route PRN Reason Start Time Stop Time Status Last Admin Dose Admin Acetaminophen (Tylenol) 650 mg Q4H PRN RECTAL Prn Headache/Temp > 101 08/27/19 12:00 09/26/19 11:59 08/29/19 00:34 Acetaminophen (Tylenol) 650 mg Q6H PRN ORAL Mild Pain/Temp > 100.5 08/27/19 02:00 09/26/19 01:59 08/29/19 21:26 Acetaminophen/ Hydrocodone Bitart ([place] 5/325) 1 tab Q6H PRN ORAL For Pain 08/27/19 02:00 09/03/19 01:59 Amlodipine Besylate (Norvasc) 10 mg DAILY ORAL 08/27/19 09:00 09/26/19 08:59 08/31/19 09:17 Aspirin (Ecotrin) 81 mg DAILY ORAL 08/27/19 09:00 09/26/19 08:59 08/31/19 09:17 Benazepril HCl (Lotensin) 10 mg DAILY ORAL 08/27/19 09:00 09/26/19 08:59 08/31/19 09:18 Ceftriaxone Sodium 1 gm/ Dextrose 55 ml @ 110 mls/hr Q24H IVPB 08/28/19 18:00 09/04/19 17:59 08/30/19 17:38 Dextrose 1,000 ml @ 100 mls/hr Q10H IV 08/28/19 10:00 09/27/19 09:59 08/31/19 05:47 Dextrose (Dextrose 50%) 25 ml Q30M PRN IV Hypoglycemia 08/27/19 15:15 09/26/19 15:14 Dextrose (Dextrose 50%) 50 ml Q30M PRN IV Hypoglycemia 08/27/19 15:15 09/26/19 15:14 Gadobutrol (Gadavist) 7.5 mmol ONCE PRN IV PROCEDURE 08/30/19 16:00 09/01/19 15:59 Heparin Sodium (Porcine) (Heparin 5000 units/ml) 5,000 units EVERY 8 HOURS SUBQ 08/27/19 06:00 09/26/19 05:59 08/31/19 05:50 Hydroxyurea (Hydrea) 500 mg DAILY ORAL 08/27/19 09:00 09/01/19 08:59 08/31/19 09:17 Insulin Aspart (NovoLOG) BEFORE MEALS AND HS SUBQ 08/29/19 11:30 09/28/19 11:29 08/31/19 11:48 Insulin Detemir (Levemir) 6 units DAILY SUBQ 08/30/19 12:00 09/29/19 11:59 08/31/19 09:19 Metformin HCl (Glucophage) 1,000 mg BID ORAL 08/27/19 18:00 09/26/19 17:59 08/31/19 09:17 Morphine Sulfate (Morphine Sulfate) 2 mg Q6H PRN IVP Severe Pain (Pain Scale 7-10) 08/27/19 02:00 09/03/19 01:59 Latanya Mckeon MD Aug 31, 2019 12:34
--- NOTE | 2019-08-31 13:23 | GI Progress Note ---
Assessment/Plan Problems: (1) Pancreatitis ICD Codes: K85.90 - Acute pancreatitis without necrosis or infection, unspecified SNOMED: 51222581 (2) Acute encephalopathy ICD Codes: G93.40 - Encephalopathy, unspecified SNOMED: 05371069, 944832366 (3) Failure to thrive SNOMED: 54156163 (4) Severe protein-calorie malnutrition ICD Codes: E43 - Unspecified severe protein-calorie malnutrition SNOMED: 837719138, 515346532, 545127300 Status: unchanged Status Narrative Discussed with Dr. Smith. Assessment/Plan US reviewed, negative MRCP pending r/o any focal pancreatic abnormalities lipase above 2000 Keep patient NPO + IVFs increase free water flushes for hypernatrema fu MRCP repeat lipase levels will follow up wit additional recs post imaging study The patient was seen and examined at bedside and all new and available data was reviewed in the patients chart. I agree with the above findings, impression and plan. (Patient seen earlier today. Signature stamp does not reflect patient encounter time.). - Alek Smith MD Subjective Subjective limited Objective Last 24 Hour Vital Signs Date Time Temp Pulse Resp B/P (MAP) Pulse Ox O2 Delivery O2 Flow Rate FiO2 08/31/19 12:00 98.1 93 18 134/60 (84) 97 08/31/19 09:18 144/76 08/31/19 09:17 94 144/76 08/31/19 09:00 Room Air 08/31/19 08:00 98.1 94 18 144/76 (98) 95 08/31/19 07:51 88 18 97 Room Air 08/31/19 07:50 86 18 95 Room Air 08/31/19 04:00 97.9 95 20 116/62 (80) 97 08/31/19 00:00 98.9 95 20 128/64 (85) 95 08/30/19 21:22 Room Air 08/30/19 20:00 99.0 95 20 119/58 (78) 95 08/30/19 18:26 96 18 97 Room Air 08/30/19 18:24 94 18 94 Room Air 08/30/19 16:00 98.8 97 17 135/79 (97) 97 08/30/19 15:28 94 18 97 11/17/19 15:28 92 18 97 Room Air Intake and Output 08/30/19 08/31/19 18:59 06:59 Intake Total 2510 ml 910 ml Output Total 1100 ml Balance 1410 ml 910 ml Free Water 150 ml 150 ml IV Total 1100 ml 400 ml Tube Feeding 1260 ml 360 ml Output Urine Total 1100 ml Laboratory Tests Test 08/31/19 06:30 Sodium Level 144 MMOL/L (136-145) Potassium Level 3.6 MMOL/L (3.5-5.1) Chloride Level 109 MMOL/L (98-107) H Carbon Dioxide Level 28 MMOL/L (21-32) Anion Gap 7 mmol/L (5-15) Blood Urea Nitrogen 18 mg/dL (7-18) Creatinine 1.0 MG/DL (0.55-1.30) Estimat Glomerular Filtration Rate mL/min (>60) Glucose Level 291 MG/DL (74-106) H Calcium Level 8.2 MG/DL (8.5-10.1) L Phosphorus Level 2.4 MG/DL (2.5-4.9) L Total Bilirubin 0.5 MG/DL (0.2-1.0) Aspartate Amino Transf (AST/SGOT) 69 U/L (15-37) H Alanine Aminotransferase (ALT/SGPT) 41 U/L (12-78) Alkaline Phosphatase 123 U/L (46-116) H Total Protein 6.5 G/DL (6.4-8.2) Albumin 1.7 G/DL (3.4-5.0) L Globulin 4.8 g/dL Albumin/Globulin Ratio 0.4 (1.0-2.7) L Height (Feet): 5 Height (Inches): 8.00 Weight (Pounds): 127 General Appearance: no apparent distress Cardiovascular: normal rate Respiratory/Chest: normal breath sounds, no respiratory distress Abdominal Exam: normal bowel sounds, non tender, soft, other - NGT Extremities: non-tender Mac [place] [employer]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
--- NOTE | 2019-08-31 14:17 | NUR ---
NURSE NOTES: On NPO except meds as ordered by W[employer]DING DAY COORDINATOR Harley.
--- NOTE | 2019-08-31 14:43 | Diagnostic Imaging Report ---
Indication: History of pancreatitis, abdominal pain Technique: Coronal and axial single shot fast spin-echo breath-hold, axial T2 FRFSE, 2-D thick slab MRCP, AXIAL 2-D FIESTA fat saturated, axial 3-D dual echo breath-hold, water weighted axial LAVA FLEX, revealed 3-D MRCP images were obtained of the abdomen. MIP reconstructions were generated of the bile ducts Comparison: Reference made to ultrasound of the abdomen dated 08/27/2019 Findings: Exam is somewhat limited as patient was unable to cooperate optimally with breathing instructions. In addition, postcontrast imaging of the pancreas could not be performed due to inability of the patient to consent for such. The bile ducts are normal in caliber without definite filling defects. The gallbladder is unremarkable, without stones, wall thickening, nor pericholecystic fluid. The pancreas is poorly evaluated due to the motion artifact. No gross mass or cyst demonstrated. It appears to be normal in size and signal intensity. No definite peripancreatic fluid or edema demonstrated. There is a 1 cm diameter cyst medial to the left renal hilum. This appears to be immediately anterior to the sal of the right hemidiaphragm and does not appear to be related to bowel or pancreas. Due to the motion artifact, the relationship to the other organs is otherwise somewhat indeterminate. The liver, spleen, adrenals are unremarkable. There are bilateral renal cysts demonstrated. The bladder contains a Adams catheter. The prostate is markedly enlarged. The included lung bases demonstrate some atelectasis on the right. There is also a small amount of pleural fluid on the right. Impression: Limited exam, as described Node definite pancreatic or peripancreatic abnormality demonstrated. No evidence of cholelithiasis, choledocholithiasis, or biliary ductal dilatation 1 cm cyst immediately anterior to the inferior sal of the right hemidiaphragm at the level of the renal hilum, of uncertain etiology but doubtful significance Prostatomegaly Incidental finding of bilateral renal cysts
[2019-08-31 16:00] VITALS: BP 130/65
--- NOTE | 2019-08-31 17:00 | NUR ---
NURSE NOTES: Patient agitated and upset, wants to go AMA. Pulled out his IV line. Dr Rome made aware, allowed patient to go AMA. Attempted to contact , left a message and awaiting callback.
[2019-08-31] MEDS: cefTRIAXone 1 GM in D5W 55 ML IVPB SCH (17:52)
--- NOTE | 2019-08-31 18:52 | Internal Med Progress Note ---
Subjective Date of Service: Aug 31, 2019 Physician Name Tello Cobb Attending Physician Cirilo Rome MD Current Medications Medications (Trade) Dose Ordered Sig/Debi Route PRN Reason Start Time Stop Time Status Last Admin Dose Admin Acetaminophen (Tylenol) 650 mg Q4H PRN RECTAL Prn Headache/Temp > 101 08/27/19 12:00 09/26/19 11:59 08/29/19 00:34 Acetaminophen (Tylenol) 650 mg Q6H PRN ORAL Mild Pain/Temp > 100.5 08/27/19 02:00 09/26/19 01:59 08/29/19 21:26 Acetaminophen/ Hydrocodone Bitart ([place] 5/325) 1 tab Q6H PRN ORAL For Pain 08/27/19 02:00 09/03/19 01:59 Amlodipine Besylate (Norvasc) 10 mg DAILY ORAL 08/27/19 09:00 09/26/19 08:59 08/31/19 09:17 Aspirin (Ecotrin) 81 mg DAILY ORAL 08/27/19 09:00 09/26/19 08:59 08/31/19 09:17 Benazepril HCl (Lotensin) 10 mg DAILY ORAL 08/27/19 09:00 09/26/19 08:59 08/31/19 09:18 Ceftriaxone Sodium 1 gm/ Dextrose 55 ml @ 110 mls/hr Q24H IVPB 08/28/19 18:00 09/04/19 17:59 08/31/19 17:52 Dextrose 1,000 ml @ 100 mls/hr Q10H IV 08/28/19 10:00 09/27/19 09:59 08/31/19 17:52 Dextrose (Dextrose 50%) 25 ml Q30M PRN IV Hypoglycemia 08/27/19 15:15 09/26/19 15:14 Dextrose (Dextrose 50%) 50 ml Q30M PRN IV Hypoglycemia 08/27/19 15:15 09/26/19 15:14 Gadobutrol (Gadavist) 7.5 mmol ONCE PRN IV PROCEDURE 08/30/19 16:00 09/01/19 15:59 Heparin Sodium (Porcine) (Heparin 5000 units/ml) 5,000 units EVERY 8 HOURS SUBQ 08/27/19 06:00 09/26/19 05:59 08/31/19 14:08 Hydroxyurea (Hydrea) 500 mg DAILY ORAL 08/27/19 09:00 09/01/19 08:59 08/31/19 09:17 Insulin Aspart (NovoLOG) BEFORE MEALS AND HS SUBQ 08/29/19 11:30 09/28/19 11:29 08/31/19 16:20 Insulin Detemir (Levemir) 6 units DAILY SUBQ 08/30/19 12:00 09/29/19 11:59 08/31/19 09:19 Morphine Sulfate (Morphine Sulfate) 2 mg Q6H PRN IVP Severe Pain (Pain Scale 7-10) 08/27/19 02:00 09/03/19 01:59 Allergies: Coded Allergies: No Known Allergies (Unverified , 08/27/19) ROS Limited/Unobtainable: No Constitutional: Reports: no symptoms HEENT: Reports: no symptoms Cardiovascular: Reports: no symptoms Respiratory: Reports: no symptoms Gastrointestinal/Abdominal: Reports: no symptoms Genitourinary: Reports: no symptoms Neurologic/Psychiatric: Reports: no symptoms Subjective 78 YO M admitted with altered mental status. Now rhabdomyolysis and pancreatitis. Cover for Int Med-Dr Rome Objective Last Vital Signs Date Time Temp Pulse Resp B/P (MAP) Pulse Ox O2 Delivery O2 Flow Rate FiO2 08/31/19 16:00 98.6 95 18 130/65 (86) 98 08/31/19 13:35 Room Air 08/29/19 20:00 21 Laboratory Tests Test 08/31/19 06:30 Sodium Level 144 MMOL/L (136-145) Potassium Level 3.6 MMOL/L (3.5-5.1) Chloride Level 109 MMOL/L (98-107) H Carbon Dioxide Level 28 MMOL/L (21-32) Anion Gap 7 mmol/L (5-15) Blood Urea Nitrogen 18 mg/dL (7-18) Creatinine 1.0 MG/DL (0.55-1.30) Estimat Glomerular Filtration Rate mL/min (>60) Glucose Level 291 MG/DL (74-106) H Calcium Level 8.2 MG/DL (8.5-10.1) L Phosphorus Level 2.4 MG/DL (2.5-4.9) L Total Bilirubin 0.5 MG/DL (0.2-1.0) Aspartate Amino Transf (AST/SGOT) 69 U/L (15-37) H Alanine Aminotransferase (ALT/SGPT) 41 U/L (12-78) Alkaline Phosphatase 123 U/L (46-116) H Total Protein 6.5 G/DL (6.4-8.2) Albumin 1.7 G/DL (3.4-5.0) L Globulin 4.8 g/dL Albumin/Globulin Ratio 0.4 (1.0-2.7) L Microbiology Date/Time Source Procedure Growth Status 08/28/19 20:45 Blood Blood Culture - Preliminary NO GROWTH AFTER 48 HOURS Resulted 08/28/19 20:30 Blood Blood Culture - Preliminary NO GROWTH AFTER 48 HOURS Resulted Intake and Output 08/30/19 08/31/19 18:59 06:59 Intake Total 2510 ml 910 ml Output Total 1100 ml Balance 1410 ml 910 ml Free Water 150 ml 150 ml IV Total 1100 ml 400 ml Tube Feeding 1260 ml 360 ml Output Urine Total 1100 ml Objective PHYSICAL EXAMINATION: GENERAL: The patient is a well-developed and well-nourished male, who is essentially nonverbal. HEENT: Eyes, pupils equal and responsive to light and accommodation. Extraocular movements are intact. NECK: Supple without lymphadenopathy. CHEST: Lungs are clear to auscultation bilaterally without wheezes or rales. CARDIOVASCULAR: Regular rhythm and rate. S1, S2 normal without murmurs, rubs, or gallops. ABDOMEN: Soft, nontender, nondistended. Positive bowel sounds. No evidence of hepatosplenomegaly. Currently, no rebound or guarding noted. EXTREMITIES: Negative for clubbing, cyanosis, or edema. RECTAL: Not performed. GENITAL: Not performed. NEUROLOGIC: Cranial nerves II through XII are grossly intact without focal deficits. Assessment/Plan Assessment/Plan ASSESSMENT: This is a 78-year-old male with: 1. Altered mental status. 2. Fracture of the left femur greater trochanter. 3. Rhabdomyolysis. 4. Dehydration. 5. Diabetes type 2. 6. Hypertension. 7. Hypercholesterolemia. 8. Pancreatitis TREATMENT: 1. Altered mental status, this may be secondary to dehydration versus acute cerebrovascular accident. An MRI of the brain is pending. 2. Fracture of the left femur greater trochanter. An Orthopedic consultation has been obtained with Dr. Frederic Weir. 3. Rhabdomyolysis. The patient is currently receiving intravenous fluids. 4. Dehydration. The patient is currently receiving intravenous fluids. 5. Diabetes type 2. A NovoLog sliding scale has been instituted. 6. Hypertension. Continue benazepril, hydrochlorothiazide as above. 7. Hypercholesterolemia. Continue pravastatin as above. 8. Await MRCP pancreas-see GI consult Tello Cobb MD Aug 31, 2019 18:52
--- NOTE | 2019-08-31 19:00 | NUR ---
NURSE NOTES: Received a report from JOHNNY Mead. Pt is in stable condition. Sleeping comfortably. On room air. No pain/discomfort. HOB elevated. NGT is in the L nare. IV site is patent and intact. B soft wrist restraints are in place. Adams catheter is draining. Bed alarm is on. Bed in lowest position. Will continue to monitor.
--- NOTE | 2019-08-31 19:15 | NUR ---
HAND-OFF: Report given to Meera.
[2019-08-31 20:00] VITALS: BP 132/64
[2019-09-01] VITALS: BP 112/67
[2019-09-01 04:00] VITALS: BP 121/64
[2019-09-01] MEDS: NovoLOG Insulin Flexpen SUBQ SCH ×4 (06:00→20:21)
[2019-09-01] MEDS: Heparin 5000 units/ml inj SUBQ SCH ×3 (06:03→20:22)
[2019-09-01 07:19] LABS: HEMATOCRIT 36.2 % (42.0-52.0); HEMOGLOBIN 11.6 G/DL (14.2-18.0); LYMPHOCYTES % (AUTO) 22.6 % (20.0-45.0); MEAN CORPUSCULAR VOLUME 86 FL (80-99); MONOCYTES % (AUTO) 10.6 % (1.0-10.0); NEUTROPHILS % (AUTO) 65.8 % (45.0-75.0); PLATELET COUNT 194 K/UL (150-450); RED CELL DISTRIBUTION WIDTH 13.1 % (11.6-14.8); WHITE BLOOD COUNT 4.3 K/UL (4.8-10.8)
--- NOTE | 2019-09-01 07:25 | NUR ---
HAND-OFF: Report given to JOHNNY Hagan.
[2019-09-01 07:39] VITALS: BP 127/70
[2019-09-01 07:43] LABS: ANION GAP 8 mmol/L (5-15); BLOOD UREA NITROGEN 14 mg/dL (7-18); CALCIUM 8.2 MG/DL (8.5-10.1); CARBON DIOXIDE 29 MMOL/L (21-32); CHLORIDE 104 MMOL/L (98-107); CREATININE 0.8 MG/DL (0.55-1.30); POTASSIUM 3.3 MMOL/L (3.5-5.1); SODIUM 141 MMOL/L (136-145)
[2019-09-01] MEDS: Aspirin EC 81mg tab ORAL SCH (08:23)
[2019-09-01] MEDS: Benazepril 10mg tab ORAL SCH (08:23)
[2019-09-01] MEDS: Levemir Flexpen SUBQ SCH (08:35)
--- NOTE | 2019-09-01 09:57 | Surgery Progress Note ---
Surgery Progress Note Subjective Additional Comments doing well responsive denies any complaints no n/v/f/c no pain lipase still elevated but clinically asymptomatic. MRI without significant findings anemia tolerating tube feeds. Objective Last 24 Hour Vital Signs Date Time Temp Pulse Resp B/P (MAP) Pulse Ox O2 Delivery O2 Flow Rate FiO2 09/01/19 08:24 90 127/70 09/01/19 08:23 127/70 09/01/19 08:09 90 16 96 09/01/19 08:09 87 18 96 Room Air 09/01/19 07:39 97.5 90 20 127/70 (89) 100 09/01/19 04:00 97.5 88 20 121/64 (83) 100 09/01/19 00:00 98.1 88 17 112/67 (82) 99 08/31/19 21:00 Room Air 08/31/19 20:04 89 20 94 Room Air 08/31/19 20:00 98.1 90 18 132/64 (86) 98 08/31/19 19:59 88 16 93 Room Air 08/31/19 16:00 98.6 95 18 130/65 (86) 98 08/31/19 13:35 78 18 97 Room Air 08/31/19 13:35 76 18 96 Room Air 08/31/19 12:00 98.1 93 18 134/60 (84) 97 I&O Intake and Output 08/31/19 09/01/19 19:00 07:00 Intake Total 200 ml 1000 ml Output Total 600 ml 600 ml Balance -400 ml 400 ml Free Water 100 ml IV Total 100 ml 1000 ml Output Urine Total 600 ml 600 ml Dressing: other Wound: other Cardiovascular: RSR Respiratory: clear Abdomen: soft, flat, non-tender, present bowel sounds Extremities: no cyanosis, other Laboratory Tests Test 09/01/19 05:20 White Blood Count 4.3 K/UL (4.8-10.8) L Red Blood Count 4.20 M/UL (4.70-6.10) L Hemoglobin 11.6 G/DL (14.2-18.0) L Hematocrit 36.2 % (42.0-52.0) L Mean Corpuscular Volume 86 FL (80-99) Mean Corpuscular Hemoglobin 27.6 PG (27.0-31.0) Mean Corpuscular Hemoglobin Concent 32.1 G/DL (32.0-36.0) Red Cell Distribution Width 13.1 % (11.6-14.8) Platelet Count 194 K/UL (150-450) Mean Platelet Volume 10.6 FL (6.5-10.1) H Neutrophils (%) (Auto) 65.8 % (45.0-75.0) Lymphocytes (%) (Auto) 22.6 % (20.0-45.0) Monocytes (%) (Auto) 10.6 % (1.0-10.0) H Eosinophils (%) (Auto) 0.0 % (0.0-3.0) Basophils (%) (Auto) 1.0 % (0.0-2.0) Sodium Level 141 MMOL/L (136-145) Potassium Level 3.3 MMOL/L (3.5-5.1) L Chloride Level 104 MMOL/L (98-107) Carbon Dioxide Level 29 MMOL/L (21-32) Anion Gap 8 mmol/L (5-15) Blood Urea Nitrogen 14 mg/dL (7-18) Creatinine 0.8 MG/DL (0.55-1.30) Estimat Glomerular Filtration Rate mL/min (>60) Glucose Level 193 MG/DL (74-106) H Calcium Level 8.2 MG/DL (8.5-10.1) L Lipase > 2000 U/L (73-393) H Plan Problems: (1) Failure to thrive (2) Hip fracture, left Assessment & Plan: lucency noted on plain films no pain on exam repeat films ordered There is irregularity of the left greater trochanter indicative of a injury. This is probably an old fracture. However please correlate clinically. There is no fracture of the femoral neck or intertrochanteric region bilaterally. The bones are osteopenic. There is no malalignment of either hip identified. IMPRESSION: Irregularity of the left greater trochanter which may be indicative of a previous fracture. Doubt acute injury. However please correlate clinically. Generalized osteopenia (3) Severe protein-calorie malnutrition (4) Rhabdomyolysis (5) Acidosis (6) Adult Failure To Thrive Assessment & Plan: able to voice sounds and says hello and that he is doing okay. No nausea vomiting fever chills. Labs improved. Tolerating tube feeds. States that he used to eat on his own. He is able to move his upper extremities and left lower extremity but does have a deficit in his right lower extremity. swallow eval (7) Pressure Ulcer Of Sacral Region, Unstageable Assessment & Plan: 1) Dehydration Assessment & Plan: AMS, found down dehydration improved with IVF ICD Codes: E86.0 - Dehydration SNOMED: 18953408 (2) Failure to thrive SNOMED: 04015767 (3) Rhabdomyolysis Assessment & Plan: likely from being down IV fluids trending down - resolved will monitor ICD Codes: M62.82 - Rhabdomyolysis SNOMED: 260085635 (4) Blood blister Assessment & Plan: Patient presented with multiple DTI and Blood blisters Found down prior and noted on eval in ED at [facility]. Seen upon admission to [facility] Patient with 8.8cm x 9cm sacral DTI with oozing on right sacral with resorbing blood blister. periwound intact and stable. Right scapula DTI 9.9cm x 5cm purple and indurated without drainage Left thoracic DTI 1cm x 3.5cm purple and indurated without drainage bilateral heels stable and soft with blanching no other skin concerns noted at this time Tx Plan: Monitor wounds for drainage. Will apply skin protectant and Optifoam dressings Daily and prn saturation Keep heels off loaded with pillows Air soft mattress Turn q2h Nutritional optimization Will follow with recs. ICD Codes: T14.8XXA - Other injury of unspecified body region, initial encounter SNOMED: 468297393 (5) Lactic acid acidosis Assessment & Plan: IV fluids resuscitation trend resolved ICD Codes: E87.2 - Acidosis SNOMED: 69465050 (6) Hip fracture, left Assessment & Plan: lucency noted on plain films no pain on exam repeat films ordered and noted ICD Codes: S72.002A - Fracture of unspecified part of neck of left femur, initial encounter for closed fracture SNOMED: 797720004 (7) Deep tissue injury ICD Codes: T14.8XXA - Other injury of unspecified body region, initial encounter SNOMED: 942762589 (8) Pancreatitis Assessment & Plan: lipase elevated MRI noted exam benign no complaints tolerating feeds given above cont with tube feeds. okay to advance to goal trend labs will monitor JamshidJames Sep 01, 2019 09:57
--- NOTE | 2019-09-01 11:21 | NUR ---
NURSE NOTES: pt awake alert , still w intermittent episodes of attempting to remove ngt, pt reoriented to not remove, per manager audio Harley, keep pt npo due to lipase elevated. pt ngt no residual, hob elevated. ivf running, will monitor. mckinney patent and intact
[2019-09-01 12:00] VITALS: BP 120/70
--- NOTE | 2019-09-01 12:24 | Pulmonology Progress Note ---
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 (3) Acute encephalopathy (4) Severe protein-calorie malnutrition (5) History of hypertension (6) Diabetes mellitus Assessment/Plan MRI reviewed, no acute illness NG tube is in might need antipsychotic to keep him calm dialysis social worker to look for family NG tube is in Subjective ROS Limited/Unobtainable: No Constitutional: Reports: no symptoms HEENT: Repors: no symptoms Allergies: Coded Allergies: No Known Allergies (Unverified , 08/27/19) Objective Last 24 Hour Vital Signs Date Time Temp Pulse Resp B/P (MAP) Pulse Ox O2 Delivery O2 Flow Rate FiO2 09/01/19 09:00 Room Air 09/01/19 08:24 90 127/70 09/01/19 08:23 127/70 09/01/19 08:09 90 16 96 09/01/19 08:09 87 18 96 Room Air 09/01/19 07:39 97.5 90 20 127/70 (89) 100 09/01/19 04:00 97.5 88 20 121/64 (83) 100 09/01/19 00:00 98.1 88 17 112/67 (82) 99 08/31/19 21:00 Room Air 08/31/19 20:04 89 20 94 Room Air 08/31/19 20:00 98.1 90 18 132/64 (86) 98 08/31/19 19:59 88 16 93 Room Air 08/31/19 16:00 98.6 95 18 130/65 (86) 98 08/31/19 13:35 78 18 97 Room Air 08/31/19 13:35 76 18 96 Room Air Intake and Output 08/31/19 09/01/19 19:00 07:00 Intake Total 200 ml 1000 ml Output Total 600 ml 600 ml Balance -400 ml 400 ml Free Water 100 ml IV Total 100 ml 1000 ml Output Urine Total 600 ml 600 ml General Appearance: WD/WN HEENT: normocephalic, atraumatic, anicteric Respiratory/Chest: chest wall non-tender, lungs clear Cardiovascular: normal peripheral pulses, normal rate Abdomen: normal bowel sounds, soft, non tender Extremities: no cyanosis Skin: no rash, no lesions Laboratory Tests 09/01/19 05:20: White Blood Count 4.3L, Red Blood Count 4.20L, Hemoglobin 11.6L, Hematocrit 36.2L, Mean Corpuscular Volume 86, Mean Corpuscular Hemoglobin 27.6, Mean Corpuscular Hemoglobin Concent 32.1, Red Cell Distribution Width 13.1, Platelet Count 194, Mean Platelet Volume 10.6H, Neutrophils (%) (Auto) 65.8, Lymphocytes (%) (Auto) 22.6, Monocytes (%) (Auto) 10.6H, Eosinophils (%) (Auto) 0.0, Basophils (%) (Auto) 1.0, Sodium Level 141, Potassium Level 3.3L, Chloride Level 104, Carbon Dioxide Level 29, Anion Gap 8, Blood Urea Nitrogen 14, Creatinine 0.8, Estimat Glomerular Filtration Rate , Glucose Level 193H, Calcium Level 8.2L, Lipase > 2000H Current Medications Medications (Trade) Dose Ordered Sig/Debi Route PRN Reason Start Time Stop Time Status Last Admin Dose Admin Acetaminophen (Tylenol) 650 mg Q4H PRN RECTAL Prn Headache/Temp > 101 08/27/19 12:00 09/26/19 11:59 08/29/19 00:34 Acetaminophen (Tylenol) 650 mg Q6H PRN ORAL Mild Pain/Temp > 100.5 08/27/19 02:00 09/26/19 01:59 08/29/19 21:26 Acetaminophen/ Hydrocodone Bitart ([place] 5/325) 1 tab Q6H PRN ORAL For Pain 08/27/19 02:00 09/03/19 01:59 Amlodipine Besylate (Norvasc) 10 mg DAILY ORAL 08/27/19 09:00 09/26/19 08:59 09/01/19 08:24 Aspirin (Ecotrin) 81 mg DAILY ORAL 08/27/19 09:00 09/26/19 08:59 09/01/19 08:23 Benazepril HCl (Lotensin) 10 mg DAILY ORAL 08/27/19 09:00 09/26/19 08:59 09/01/19 08:23 Ceftriaxone Sodium 1 gm/ Dextrose 55 ml @ 110 mls/hr Q24H IVPB 08/28/19 18:00 09/04/19 17:59 08/31/19 17:52 Dextrose 1,000 ml @ 100 mls/hr Q10H IV 08/28/19 10:00 09/27/19 09:59 09/01/19 04:00 Dextrose (Dextrose 50%) 25 ml Q30M PRN IV Hypoglycemia 08/27/19 15:15 09/26/19 15:14 Dextrose (Dextrose 50%) 50 ml Q30M PRN IV Hypoglycemia 08/27/19 15:15 09/26/19 15:14 Gadobutrol (Gadavist) 7.5 mmol ONCE PRN IV PROCEDURE 08/30/19 16:00 09/01/19 15:59 Heparin Sodium (Porcine) (Heparin 5000 units/ml) 5,000 units EVERY 8 HOURS SUBQ 08/27/19 06:00 09/26/19 05:59 09/01/19 06:03 Insulin Aspart (NovoLOG) BEFORE MEALS AND HS SUBQ 08/29/19 11:30 09/28/19 11:29 09/01/19 11:18 Insulin Detemir (Levemir) 6 units DAILY SUBQ 08/30/19 12:00 09/29/19 11:59 09/01/19 08:35 Morphine Sulfate (Morphine Sulfate) 2 mg Q6H PRN IVP Severe Pain (Pain Scale 7-10) 08/27/19 02:00 09/03/19 01:59 Potassium Chloride (K-Dur) 40 meq ONCE NG 09/01/19 11:00 09/01/19 13:00 09/01/19 11:14 Latanya Mckeon MD Sep 01, 2019 12:24
--- NOTE | 2019-09-01 13:14 | GI Progress Note ---
Assessment/Plan Problems: (1) Pancreatitis ICD Codes: K85.90 - Acute pancreatitis without necrosis or infection, unspecified SNOMED: 05827230 (2) Acute encephalopathy ICD Codes: G93.40 - Encephalopathy, unspecified SNOMED: 26217641, 721044814 (3) Failure to thrive SNOMED: 03932348 (4) Severe protein-calorie malnutrition ICD Codes: E43 - Unspecified severe protein-calorie malnutrition SNOMED: 867447213, 037038920, 664487984 Status: unchanged Status Narrative Discussed with Dr. Smith. Assessment/Plan US reviewed, negative MRCP negative elevated lipase ok for NGTFs increase free water flushes for hypernatremia repeat lipase levels fu ST evaluation, will consider PEG if necessary The patient was seen and examined at bedside and all new and available data was reviewed in the patients chart. I agree with the above findings, impression and plan. (Patient seen earlier today. Signature stamp does not reflect patient encounter time.). - Alek Smith MD Subjective Subjective limited Objective Last 24 Hour Vital Signs Date Time Temp Pulse Resp B/P (MAP) Pulse Ox O2 Delivery O2 Flow Rate FiO2 09/01/19 09:00 Room Air 09/01/19 08:24 90 127/70 09/01/19 08:23 127/70 09/01/19 08:09 90 16 96 09/01/19 08:09 87 18 96 Room Air 09/01/19 07:39 97.5 90 20 127/70 (89) 100 09/01/19 04:00 97.5 88 20 121/64 (83) 100 09/01/19 00:00 98.1 88 17 112/67 (82) 99 08/31/19 21:00 Room Air 08/31/19 20:04 89 20 94 Room Air 08/31/19 20:00 98.1 90 18 132/64 (86) 98 08/31/19 19:59 88 16 93 Room Air 08/31/19 16:00 98.6 95 18 130/65 (86) 98 08/31/19 13:35 78 18 97 Room Air 08/31/19 13:35 76 18 96 Room Air Intake and Output 08/31/19 09/01/19 19:00 07:00 Intake Total 200 ml 1160 ml Output Total 600 ml 600 ml Balance -400 ml 560 ml Free Water 100 ml 0 ml IV Total 100 ml 1100 ml Tube Feeding 60 ml Output Urine Total 600 ml 600 ml Laboratory Tests Test 09/01/19 05:20 White Blood Count 4.3 K/UL (4.8-10.8) L Red Blood Count 4.20 M/UL (4.70-6.10) L Hemoglobin 11.6 G/DL (14.2-18.0) L Hematocrit 36.2 % (42.0-52.0) L Mean Corpuscular Volume 86 FL (80-99) Mean Corpuscular Hemoglobin 27.6 PG (27.0-31.0) Mean Corpuscular Hemoglobin Concent 32.1 G/DL (32.0-36.0) Red Cell Distribution Width 13.1 % (11.6-14.8) Platelet Count 194 K/UL (150-450) Mean Platelet Volume 10.6 FL (6.5-10.1) H Neutrophils (%) (Auto) 65.8 % (45.0-75.0) Lymphocytes (%) (Auto) 22.6 % (20.0-45.0) Monocytes (%) (Auto) 10.6 % (1.0-10.0) H Eosinophils (%) (Auto) 0.0 % (0.0-3.0) Basophils (%) (Auto) 1.0 % (0.0-2.0) Sodium Level 141 MMOL/L (136-145) Potassium Level 3.3 MMOL/L (3.5-5.1) L Chloride Level 104 MMOL/L (98-107) Carbon Dioxide Level 29 MMOL/L (21-32) Anion Gap 8 mmol/L (5-15) Blood Urea Nitrogen 14 mg/dL (7-18) Creatinine 0.8 MG/DL (0.55-1.30) Estimat Glomerular Filtration Rate mL/min (>60) Glucose Level 193 MG/DL (74-106) H Calcium Level 8.2 MG/DL (8.5-10.1) L Lipase > 2000 U/L (73-393) H Height (Feet): 5 Height (Inches): 8.00 Weight (Pounds): 127 General Appearance: alert Cardiovascular: normal rate Respiratory/Chest: normal breath sounds, no respiratory distress Abdominal Exam: soft [place],Mariela-Harley ARMATURE TESTER Sep 01, 2019 13:14
--- NOTE | 2019-09-01 15:34 | NUR ---
RD ASSESSMENT & RECOMMENDATIONS SEE CARE ACTIVITY FOR COMPLETE ASSESSMENT DAILY ESTIMATED NEEDS: Needs based on Wound, DM/ 57.6kg 25-30 kcals/kg 3794-5680 total kcals 1.25-1.5 g protein/kg 72-86 g total protein 25-30 mL/kg 5014-2975 total fluid mLs NUTRITION DIAGNOSIS: * Swallowing difficulty R/T dysphagia, AMS as evidenced by s/p NGT insertion, pt to be on nonoral feeding at this time. * Increased kcal/prot needs R/T wound healing as evidenced by pt admitted w/ DTI wounds at sacrum, R scapula, and L thoracic, refer to WC eval. CURRENT DIET:NPO CURRENT TF:Glucerna 1.2 @ 60ml/hr x 24 hrs -> held PO DIET RECOMMENDATIONS: WHEN SAFE FOR ORAL DIET-> CCHO MED/ texture per [employer]IDENCE [employer] COORDINATOR + Glucerna TID w/ meals ENTERAL NUTRITION RECOMMENDATIONS: Glucerna 1.2 @ 60ml/hr x 24 hrs to provide 1440ml, 1728kcal, 86g prot, 1159ml free water * Resume TF as tolerated * HOB over 30 degrees * Without IVF, rec H20 flush of 150ml q 6hrs ADDITIONAL RECOMMENDATIONS: * Calibrated bedscale wt for accurate CBW * Monitor lytes daily w/ TF, replete as needed (low K + phos) * Consider DC D5 IVF once TF resumes (hyperglycemia) * Wound healing: Add Vit C 250mg QD+ ZnSO4 220mg QD x 10 days : Terrance 1pkt BID * Monitor for possible oral diet initiation- pending [employer]ID[employer] COORDINATOR eval .
[2019-09-01 16:00] VITALS: BP 130/70
--- NOTE | 2019-09-01 16:36 | Internal Med Progress Note ---
Subjective Date of Service: Sep 01, 2019 Physician Name Tello Cobb Attending Physician Cirilo Rome MD Current Medications Medications (Trade) Dose Ordered Sig/Debi Route PRN Reason Start Time Stop Time Status Last Admin Dose Admin Acetaminophen (Tylenol) 650 mg Q4H PRN RECTAL Prn Headache/Temp > 101 08/27/19 12:00 09/26/19 11:59 08/29/19 00:34 Acetaminophen (Tylenol) 650 mg Q6H PRN ORAL Mild Pain/Temp > 100.5 08/27/19 02:00 09/26/19 01:59 08/29/19 21:26 Acetaminophen/ Hydrocodone Bitart ([place] 5/325) 1 tab Q6H PRN ORAL For Pain 08/27/19 02:00 09/03/19 01:59 Amlodipine Besylate (Norvasc) 10 mg DAILY ORAL 08/27/19 09:00 09/26/19 08:59 09/01/19 08:24 Aspirin (Ecotrin) 81 mg DAILY ORAL 08/27/19 09:00 09/26/19 08:59 09/01/19 08:23 Benazepril HCl (Lotensin) 10 mg DAILY ORAL 08/27/19 09:00 09/26/19 08:59 09/01/19 08:23 Ceftriaxone Sodium 1 gm/ Dextrose 55 ml @ 110 mls/hr Q24H IVPB 08/28/19 18:00 09/04/19 17:59 08/31/19 17:52 Dextrose 1,000 ml @ 100 mls/hr Q10H IV 08/28/19 10:00 09/27/19 09:59 09/01/19 14:00 Dextrose (Dextrose 50%) 25 ml Q30M PRN IV Hypoglycemia 08/27/19 15:15 09/26/19 15:14 Dextrose (Dextrose 50%) 50 ml Q30M PRN IV Hypoglycemia 08/27/19 15:15 09/26/19 15:14 Heparin Sodium (Porcine) (Heparin 5000 units/ml) 5,000 units EVERY 8 HOURS SUBQ 08/27/19 06:00 09/26/19 05:59 09/01/19 13:52 Insulin Aspart (NovoLOG) BEFORE MEALS AND HS SUBQ 08/29/19 11:30 09/28/19 11:29 09/01/19 11:18 Insulin Detemir (Levemir) 6 units DAILY SUBQ 08/30/19 12:00 09/29/19 11:59 09/01/19 08:35 Morphine Sulfate (Morphine Sulfate) 2 mg Q6H PRN IVP Severe Pain (Pain Scale 7-10) 08/27/19 02:00 09/03/19 01:59 Allergies: Coded Allergies: No Known Allergies (Unverified , 08/27/19) ROS Limited/Unobtainable: No Constitutional: Reports: no symptoms HEENT: Reports: no symptoms Cardiovascular: Reports: no symptoms Respiratory: Reports: no symptoms Gastrointestinal/Abdominal: Reports: no symptoms Genitourinary: Reports: no symptoms Neurologic/Psychiatric: Reports: no symptoms Subjective 78 YO M admitted with altered mental status. Now rhabdomyolysis and pancreatitis. Cover for Ricci Montano-Dr Rome Objective Last Vital Signs Date Time Temp Pulse Resp B/P (MAP) Pulse Ox O2 Delivery O2 Flow Rate FiO2 09/01/19 16:00 99.5 80 20 130/70 (90) 100 09/01/19 13:48 Room Air 08/29/19 20:00 21 Laboratory Tests Test 09/01/19 05:20 White Blood Count 4.3 K/UL (4.8-10.8) L Red Blood Count 4.20 M/UL (4.70-6.10) L Hemoglobin 11.6 G/DL (14.2-18.0) L Hematocrit 36.2 % (42.0-52.0) L Mean Corpuscular Volume 86 FL (80-99) Mean Corpuscular Hemoglobin 27.6 PG (27.0-31.0) Mean Corpuscular Hemoglobin Concent 32.1 G/DL (32.0-36.0) Red Cell Distribution Width 13.1 % (11.6-14.8) Platelet Count 194 K/UL (150-450) Mean Platelet Volume 10.6 FL (6.5-10.1) H Neutrophils (%) (Auto) 65.8 % (45.0-75.0) Lymphocytes (%) (Auto) 22.6 % (20.0-45.0) Monocytes (%) (Auto) 10.6 % (1.0-10.0) H Eosinophils (%) (Auto) 0.0 % (0.0-3.0) Basophils (%) (Auto) 1.0 % (0.0-2.0) Sodium Level 141 MMOL/L (136-145) Potassium Level 3.3 MMOL/L (3.5-5.1) L Chloride Level 104 MMOL/L (98-107) Carbon Dioxide Level 29 MMOL/L (21-32) Anion Gap 8 mmol/L (5-15) Blood Urea Nitrogen 14 mg/dL (7-18) Creatinine 0.8 MG/DL (0.55-1.30) Estimat Glomerular Filtration Rate mL/min (>60) Glucose Level 193 MG/DL (74-106) H Calcium Level 8.2 MG/DL (8.5-10.1) L Lipase > 2000 U/L (73-393) H Intake and Output 08/31/19 09/01/19 19:00 07:00 Intake Total 200 ml 1160 ml Output Total 600 ml 600 ml Balance -400 ml 560 ml Free Water 100 ml 0 ml IV Total 100 ml 1100 ml Tube Feeding 60 ml Output Urine Total 600 ml 600 ml Objective PHYSICAL EXAMINATION: GENERAL: The patient is a well-developed and well-nourished male, who is essentially nonverbal. HEENT: Eyes, pupils equal and responsive to light and accommodation. Extraocular movements are intact. NECK: Supple without lymphadenopathy. CHEST: Lungs are clear to auscultation bilaterally without wheezes or rales. CARDIOVASCULAR: Regular rhythm and rate. S1, S2 normal without murmurs, rubs, or gallops. ABDOMEN: Soft, nontender, nondistended. Positive bowel sounds. No evidence of hepatosplenomegaly. Currently, no rebound or guarding noted. EXTREMITIES: Negative for clubbing, cyanosis, or edema. RECTAL: Not performed. GENITAL: Not performed. NEUROLOGIC: Cranial nerves II through XII are grossly intact without focal deficits. Assessment/Plan Assessment/Plan ASSESSMENT: This is a 78-year-old male with: 1. Altered mental status. 2. Fracture of the left femur greater trochanter. 3. Rhabdomyolysis. 4. Dehydration. 5. Diabetes type 2. 6. Hypertension. 7. Hypercholesterolemia. 8. Pancreatitis TREATMENT: 1. Altered mental status, this may be secondary to dehydration versus acute cerebrovascular accident. An MRI of the brain is pending. 2. Fracture of the left femur greater trochanter. An Orthopedic consultation has been obtained with Dr. Frederic Weir. 3. Rhabdomyolysis. The patient is currently receiving intravenous fluids. 4. Dehydration. The patient is currently receiving intravenous fluids. 5. Diabetes type 2. A NovoLog sliding scale has been instituted. 6. Hypertension. Continue benazepril, hydrochlorothiazide as above. 7. Hypercholesterolemia. Continue pravastatin as above. 8. Await MRCP=normal-see GI consult 9. PEG possible Tello Cobb MD Sep 01, 2019 16:36
[2019-09-01] MEDS: cefTRIAXone 1 GM in D5W 55 ML IVPB SCH (17:05)
--- NOTE | 2019-09-01 18:26 | NUR ---
NURSE NOTES: called ct to do kub since it was stat order since 1599
--- NOTE | 2019-09-01 18:58 | Diagnostic Imaging Report ---
Indication: Status post nasogastric tube placement Technique: Supine view of the upper abdomen Comparison: 08/29/2019 Findings: There is a nasogastric tube, tip of which projects at or just beyond the level of the gastroesophageal junction, proximal port projecting at the expected level of the distal esophagus. Bowel gas pattern is unremarkable Impression: High position of nasogastric tube. Advancement recommended. This agrees with the preliminary interpretation provided overnight by [facility] teleradiology service.
--- NOTE | 2019-09-01 19:10 | NUR ---
HAND-OFF: Report given to CINDA TURNER . RELAYED TO RN RE ADVANCING 8 CM AND REDOING STAT KUB, PER [facility]
--- NOTE | 2019-09-01 19:46 | NUR ---
NURSE NOTES: Received patient awake, non-verbal, follows simple command, NG-tube placement advanced 8 cm, x-ray of abdomen requested for NG-tube placement confirmation.
[2019-09-01 20:00] VITALS: BP 127/68
--- NOTE | 2019-09-01 20:51 | Diagnostic Imaging Report ---
Indication: Post nasogastric tube advancement Technique: Supine view of the upper abdomen Comparison: 09/01/2019 Findings: Interim advancement of previously high positioned is a gastric tube, tip now projected at the level of the fundus body junction, proximal side port just beyond the expected level of the gastroesophageal junction. Bowel gas pattern is unremarkable. Impression: Improved, now satisfactory position of nasogastric tube This agrees with the preliminary interpretation provided overnight by [facility] teleradiology service.
[2019-09-02] VITALS: BP 124/71
[2019-09-02 04:00] VITALS: BP 119/66
[2019-09-02] MEDS: Heparin 5000 units/ml inj SUBQ SCH ×3 (05:30→21:07)
[2019-09-02] MEDS: NovoLOG Insulin Flexpen SUBQ SCH ×4 (05:31→21:08)
--- NOTE | 2019-09-02 07:28 | NUR ---
HAND-OFF: Report given to Janeth Higgins RN.
--- NOTE | 2019-09-02 07:44 | NUR ---
NURSE NOTES: Patient alert to name,respirations unlabored.IV fluids infusing as ordered.N/G tube is in placed,Patient remains NPO as ordered.Adams catheter is in place and draining ej color urine.Soft wrist restraints are on ,ROM given to extremites skin care. Turned and position for comfort,oral care given.Bed alarm is on,call light within reach.
[2019-09-02 08:11] LABS: BASOPHILS % (AUTO) 0.6 % (0.0-2.0); EOSINOPHILS % (AUTO) 0.2 % (0.0-3.0); HEMATOCRIT 36.6 % (42.0-52.0); HEMOGLOBIN 11.6 G/DL (14.2-18.0); LYMPHOCYTES % (AUTO) 26.1 % (20.0-45.0); MEAN CORPUSCULAR VOLUME 87 FL (80-99); MONOCYTES % (AUTO) 9.6 % (1.0-10.0); NEUTROPHILS % (AUTO) 63.6 % (45.0-75.0); PLATELET COUNT 258 K/UL (150-450); RED CELL DISTRIBUTION WIDTH 14.5 % (11.6-14.8); WHITE BLOOD COUNT 5.3 K/UL (4.8-10.8)
[2019-09-02 08:31] VITALS: BP 117/70
[2019-09-02 08:32] LABS: ALBUMIN 1.7 G/DL (3.4-5.0); ALBUMIN/GLOBULIN RATIO 0.3 (1.0-2.7); ALKALINE PHOSPHATASE 118 U/L (46-116); AMYLASE 424 U/L (25-115); ANION GAP 3 mmol/L (5-15); ASPARTATE AMINO TRANSFERASE 62 U/L (15-37); BILIRUBIN,TOTAL 0.4 MG/DL (0.2-1.0); BLOOD UREA NITROGEN 12 mg/dL (7-18); CALCIUM 8.3 MG/DL (8.5-10.1); CARBON DIOXIDE 30 MMOL/L (21-32); CHLORIDE 101 MMOL/L (98-107); CREATININE 0.9 MG/DL (0.55-1.30); POTASSIUM 3.7 MMOL/L (3.5-5.1); SODIUM 134 MMOL/L (136-145)
[2019-09-02 08:39] LABS: PHOSPHORUS 2.4 MG/DL (2.5-4.9)
[2019-09-02 08:41] LABS: ALANINE AMINOTRANSFERASE 44 U/L (12-78)
[2019-09-02] MEDS: Levemir Flexpen SUBQ SCH (10:12)
[2019-09-02] MEDS: Benazepril 10mg tab ORAL SCH (10:13)
[2019-09-02] MEDS: Aspirin EC 81mg tab ORAL SCH (10:14)
--- NOTE | 2019-09-02 11:22 | Internal Med Progress Note ---
Subjective Date of Service: Sep 02, 2019 Physician Name Tello Cobb Attending Physician Cirilo Rome MD Current Medications Medications (Trade) Dose Ordered Sig/Debi Route PRN Reason Start Time Stop Time Status Last Admin Dose Admin Acetaminophen (Tylenol) 650 mg Q4H PRN RECTAL Prn Headache/Temp > 101 08/27/19 12:00 09/26/19 11:59 08/29/19 00:34 Acetaminophen (Tylenol) 650 mg Q6H PRN ORAL Mild Pain/Temp > 100.5 08/27/19 02:00 09/26/19 01:59 08/29/19 21:26 Acetaminophen/ Hydrocodone Bitart ([place] 5/325) 1 tab Q6H PRN ORAL For Pain 08/27/19 02:00 09/03/19 01:59 Amlodipine Besylate (Norvasc) 10 mg DAILY ORAL 08/27/19 09:00 09/26/19 08:59 09/02/19 10:15 Aspirin (Ecotrin) 81 mg DAILY ORAL 08/27/19 09:00 09/26/19 08:59 09/02/19 10:14 Benazepril HCl (Lotensin) 10 mg DAILY ORAL 08/27/19 09:00 09/26/19 08:59 09/02/19 10:13 Ceftriaxone Sodium 1 gm/ Dextrose 55 ml @ 110 mls/hr Q24H IVPB 08/28/19 18:00 09/04/19 17:59 09/01/19 17:05 Dextrose 1,000 ml @ 100 mls/hr Q10H IV 08/28/19 10:00 09/27/19 09:59 09/02/19 03:59 Dextrose (Dextrose 50%) 25 ml Q30M PRN IV Hypoglycemia 08/27/19 15:15 09/26/19 15:14 Dextrose (Dextrose 50%) 50 ml Q30M PRN IV Hypoglycemia 08/27/19 15:15 09/26/19 15:14 Heparin Sodium (Porcine) (Heparin 5000 units/ml) 5,000 units EVERY 8 HOURS SUBQ 08/27/19 06:00 09/26/19 05:59 09/02/19 05:30 Insulin Aspart (NovoLOG) BEFORE MEALS AND HS SUBQ 08/29/19 11:30 09/28/19 11:29 09/02/19 05:31 Insulin Detemir (Levemir) 6 units DAILY SUBQ 08/30/19 12:00 09/29/19 11:59 09/02/19 10:12 Morphine Sulfate (Morphine Sulfate) 2 mg Q6H PRN IVP Severe Pain (Pain Scale 7-10) 08/27/19 02:00 09/03/19 01:59 Allergies: Coded Allergies: No Known Allergies (Unverified , 08/27/19) ROS Limited/Unobtainable: Yes Subjective 78 YO M admitted with altered mental status. Now rhabdomyolysis and pancreatitis. Cover for Int Dusty-Dr Rome Objective Last Vital Signs Date Time Temp Pulse Resp B/P (MAP) Pulse Ox O2 Delivery O2 Flow Rate FiO2 09/02/19 10:15 86 126/65 09/02/19 08:50 Room Air 09/02/19 08:31 98.4 20 100 09/02/19 06:56 21 Laboratory Tests Test 09/02/19 07:45 White Blood Count 5.3 K/UL (4.8-10.8) Red Blood Count 4.20 M/UL (4.70-6.10) L Hemoglobin 11.6 G/DL (14.2-18.0) L Hematocrit 36.6 % (42.0-52.0) L Mean Corpuscular Volume 87 FL (80-99) Mean Corpuscular Hemoglobin 27.6 PG (27.0-31.0) Mean Corpuscular Hemoglobin Concent 31.7 G/DL (32.0-36.0) L Red Cell Distribution Width 14.5 % (11.6-14.8) Platelet Count 258 K/UL (150-450) Mean Platelet Volume 9.5 FL (6.5-10.1) Neutrophils (%) (Auto) 63.6 % (45.0-75.0) Lymphocytes (%) (Auto) 26.1 % (20.0-45.0) Monocytes (%) (Auto) 9.6 % (1.0-10.0) Eosinophils (%) (Auto) 0.2 % (0.0-3.0) Basophils (%) (Auto) 0.6 % (0.0-2.0) Erythrocyte Sedimentation Rate 38 MM/HR (0-20) H Sodium Level 134 MMOL/L (136-145) L Potassium Level 3.7 MMOL/L (3.5-5.1) Chloride Level 101 MMOL/L (98-107) Carbon Dioxide Level 30 MMOL/L (21-32) Anion Gap 3 mmol/L (5-15) L Blood Urea Nitrogen 12 mg/dL (7-18) Creatinine 0.9 MG/DL (0.55-1.30) Estimat Glomerular Filtration Rate mL/min (>60) Glucose Level 181 MG/DL (74-106) H Calcium Level 8.3 MG/DL (8.5-10.1) L Phosphorus Level 2.4 MG/DL (2.5-4.9) L Magnesium Level 1.8 MG/DL (1.8-2.4) Total Bilirubin 0.4 MG/DL (0.2-1.0) Aspartate Amino Transf (AST/SGOT) 62 U/L (15-37) H Alanine Aminotransferase (ALT/SGPT) 44 U/L (12-78) Alkaline Phosphatase 118 U/L (46-116) H C-Reactive Protein, Quantitative 9.4 mg/dL (0.00-0.90) H Total Protein 7.0 G/DL (6.4-8.2) Albumin 1.7 G/DL (3.4-5.0) L Globulin 5.3 g/dL Albumin/Globulin Ratio 0.3 (1.0-2.7) L Amylase Level 424 U/L (25-115) H Lipase > 2000 U/L (73-393) H Intake and Output 09/01/19 09/02/19 19:00 07:00 Intake Total 1160 ml 1200 ml Output Total 1560 ml 1000 ml Balance -400 ml 200 ml Free Water 150 ml IV Total 710 ml 1200 ml Tube Feeding 300 ml Output Urine Total 1560 ml 1000 ml # Voids 2 Objective PHYSICAL EXAMINATION: GENERAL: The patient is a well-developed and well-nourished male, who is essentially nonverbal. HEENT: Eyes, pupils equal and responsive to light and accommodation. Extraocular movements are intact. NECK: Supple without lymphadenopathy. CHEST: Lungs are clear to auscultation bilaterally without wheezes or rales. CARDIOVASCULAR: Regular rhythm and rate. S1, S2 normal without murmurs, rubs, or gallops. ABDOMEN: Soft, nontender, nondistended. Positive bowel sounds. No evidence of hepatosplenomegaly. Currently, no rebound or guarding noted. EXTREMITIES: Negative for clubbing, cyanosis, or edema. RECTAL: Not performed. GENITAL: Not performed. NEUROLOGIC: Cranial nerves II through XII are grossly intact without focal deficits. Assessment/Plan Assessment/Plan ASSESSMENT: This is a 78-year-old male with: 1. Altered mental status. 2. Fracture of the left femur greater trochanter. 3. Rhabdomyolysis. 4. Dehydration. 5. Diabetes type 2. 6. Hypertension. 7. Hypercholesterolemia. 8. Pancreatitis TREATMENT: 1. Altered mental status, this may be secondary to dehydration versus acute cerebrovascular accident. An MRI of the brain is pending. 2. Fracture of the left femur greater trochanter. An Orthopedic consultation has been obtained with Dr. Frederic Weir. 3. Rhabdomyolysis. The patient is currently receiving intravenous fluids. 4. Dehydration. The patient is currently receiving intravenous fluids. 5. Diabetes type 2. A NovoLog sliding scale has been instituted. 6. Hypertension. Continue benazepril, hydrochlorothiazide as above. 7. Hypercholesterolemia. Continue pravastatin as above. 8. Await MRCP=normal-see GI consult 9. PEG possible Tello Cobb MD Sep 02, 2019 11:22
[2019-09-02 12:00] VITALS: BP 131/67
--- NOTE | 2019-09-02 12:03 | Pulmonology Progress Note ---
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 (3) Acute encephalopathy (4) Severe protein-calorie malnutrition (5) History of hypertension (6) Diabetes mellitus Assessment/Plan MRI reviewed, no acute illness NG tube is in, tolerating feeding might need antipsychotic to keep him calm social science analyst to look for family mental status better Subjective Interval Events: still has NG tube feeding Allergies: Coded Allergies: No Known Allergies (Unverified , 08/27/19) Objective Last 24 Hour Vital Signs Date Time Temp Pulse Resp B/P (MAP) Pulse Ox O2 Delivery O2 Flow Rate FiO2 09/02/19 10:15 86 126/65 09/02/19 10:13 126/65 09/02/19 08:50 Room Air 09/02/19 08:31 98.4 94 20 117/70 (86) 100 09/02/19 06:56 74 16 97 Room Air 09/02/19 06:56 70 16 96 Room Air 21 09/02/19 04:00 98.8 96 17 119/66 (83) 95 09/02/19 00:00 99.0 89 16 124/71 (88) 96 09/01/19 20:51 Room Air 09/01/19 20:06 81 18 95 Room Air 09/01/19 20:06 82 16 95 09/01/19 20:00 99.2 94 18 127/68 (87) 96 09/01/19 16:00 99.5 80 20 130/70 (90) 100 09/01/19 13:48 73 16 95 Room Air 09/01/19 13:48 78 16 94 Intake and Output 09/01/19 09/02/19 19:00 07:00 Intake Total 1160 ml 1200 ml Output Total 1560 ml 1000 ml Balance -400 ml 200 ml Free Water 150 ml IV Total 710 ml 1200 ml Tube Feeding 300 ml Output Urine Total 1560 ml 1000 ml # Voids 2 General Appearance: cachetic HEENT: normocephalic, atraumatic Respiratory/Chest: chest wall non-tender, lungs clear Cardiovascular: normal peripheral pulses, normal rate Abdomen: normal bowel sounds, soft, non tender Genitourinary: normal external genitalia Extremities: no clubbing Skin: no rash Neurologic/Psychiatric: redrawer II-XII grossly normal Lymphatic: no neck adenopathy Laboratory Tests 09/02/19 07:45: White Blood Count 5.3, Red Blood Count 4.20L, Hemoglobin 11.6L, Hematocrit 36.6L , Mean Corpuscular Volume 87, Mean Corpuscular Hemoglobin 27.6, Mean Corpuscular Hemoglobin Concent 31.7L, Red Cell Distribution Width 14.5, Platelet Count 258, Mean Platelet Volume 9.5, Neutrophils (%) (Auto) 63.6, Lymphocytes (%) (Auto) 26.1, Monocytes (%) (Auto) 9.6, Eosinophils (%) (Auto) 0.2, Basophils (%) (Auto) 0.6, Erythrocyte Sedimentation Rate 38H, Sodium Level 134L, Potassium Level 3.7, Chloride Level 101, Carbon Dioxide Level 30, Anion Gap 3L, Blood Urea Nitrogen 12, Creatinine 0.9, Estimat Glomerular Filtration Rate , Glucose Level 181H, Calcium Level 8.3L, Phosphorus Level 2.4L, Magnesium Level 1.8, Total Bilirubin 0.4, Aspartate Amino Transf (AST/SGOT) 62H, Alanine Aminotransferase (ALT/SGPT) 44, Alkaline Phosphatase 118H, C-Reactive Protein, Quantitative 9.4H, Total Protein 7.0, Albumin 1.7L, Globulin 5.3, Albumin/ Globulin Ratio 0.3L, Amylase Level 424H, Lipase > 2000H Current Medications Medications (Trade) Dose Ordered Sig/Debi Route PRN Reason Start Time Stop Time Status Last Admin Dose Admin Acetaminophen (Tylenol) 650 mg Q4H PRN RECTAL Prn Headache/Temp > 101 08/27/19 12:00 09/26/19 11:59 08/29/19 00:34 Acetaminophen (Tylenol) 650 mg Q6H PRN ORAL Mild Pain/Temp > 100.5 08/27/19 02:00 09/26/19 01:59 08/29/19 21:26 Acetaminophen/ Hydrocodone Bitart ([place] 5/325) 1 tab Q6H PRN ORAL For Pain 08/27/19 02:00 09/03/19 01:59 Amlodipine Besylate (Norvasc) 10 mg DAILY ORAL 08/27/19 09:00 09/26/19 08:59 09/02/19 10:15 Aspirin (Ecotrin) 81 mg DAILY ORAL 08/27/19 09:00 09/26/19 08:59 09/02/19 10:14 Benazepril HCl (Lotensin) 10 mg DAILY ORAL 08/27/19 09:00 09/26/19 08:59 09/02/19 10:13 Ceftriaxone Sodium 1 gm/ Dextrose 55 ml @ 110 mls/hr Q24H IVPB 08/28/19 18:00 09/04/19 17:59 09/01/19 17:05 Dextrose 1,000 ml @ 100 mls/hr Q10H IV 08/28/19 10:00 09/27/19 09:59 09/02/19 03:59 Dextrose (Dextrose 50%) 25 ml Q30M PRN IV Hypoglycemia 08/27/19 15:15 09/26/19 15:14 Dextrose (Dextrose 50%) 50 ml Q30M PRN IV Hypoglycemia 08/27/19 15:15 09/26/19 15:14 Heparin Sodium (Porcine) (Heparin 5000 units/ml) 5,000 units EVERY 8 HOURS SUBQ 08/27/19 06:00 09/26/19 05:59 09/02/19 05:30 Insulin Aspart (NovoLOG) BEFORE MEALS AND HS SUBQ 08/29/19 11:30 09/28/19 11:29 09/02/19 11:51 Insulin Detemir (Levemir) 6 units DAILY SUBQ 08/30/19 12:00 09/29/19 11:59 09/02/19 10:12 Morphine Sulfate (Morphine Sulfate) 2 mg Q6H PRN IVP Severe Pain (Pain Scale 7-10) 08/27/19 02:00 09/03/19 01:59 Latanya Mckeon MD Sep 02, 2019 12:03
--- NOTE | 2019-09-02 13:45 | NUR ---
ST NOTES: SWALLOW STATUS: PATIENT AWAITING MOD BARIUM SWALLOW STUDY WHEN READY (NOT ABLE TO COMPLETE TODAY DUE TO SCHEDULE CONFLICTS). PER RN, PATIENT HAS NGT BUT FEEDINGS ON HOLD SINCE LIPASE IS ELEVATED. PER RNJOSELITO, NO NEED FOR ORAL SUCTION OVER THE WEEKEND. PLAN: CONTINUE WITH NONORAL FEEDINGS WHEN ABLE AND ORAL CARE COMPLETE MOD BARIUM SWALLOW STUDY WHEN READY
--- NOTE | 2019-09-02 13:49 | GI Progress Note ---
Assessment/Plan Problems: (1) Pancreatitis ICD Codes: K85.90 - Acute pancreatitis without necrosis or infection, unspecified SNOMED: 93643603 (2) Acute encephalopathy ICD Codes: G93.40 - Encephalopathy, unspecified SNOMED: 03177489, 646094399 (3) Failure to thrive SNOMED: 56048079 (4) Severe protein-calorie malnutrition ICD Codes: E43 - Unspecified severe protein-calorie malnutrition SNOMED: 277716215, 160622589, 901974930 Status: stable, unchanged Status Narrative Discussed with Dr. Smith. Assessment/Plan US reviewed, negative MRCP negative elevated lipase NGTFs increase free water flushes for hypernatremia IV hydration repeat lipase levels fu ST evaluation, patient unable to participate at this time will consider PEG if necessary The patient was seen and examined at bedside and all new and available data was reviewed in the patients chart. I agree with the above findings, impression and plan. (Patient seen earlier today. Signature stamp does not reflect patient encounter time.). - Alek Smith MD Subjective Subjective limited Objective Last 24 Hour Vital Signs Date Time Temp Pulse Resp B/P (MAP) Pulse Ox O2 Delivery O2 Flow Rate FiO2 09/02/19 12:46 76 16 96 Room Air 21 09/02/19 12:46 80 18 97 Room Air 09/02/19 12:00 97.4 91 20 131/67 (88) 98 09/02/19 10:15 86 126/65 09/02/19 10:13 126/65 09/02/19 08:50 Room Air 09/02/19 08:31 98.4 94 20 117/70 (86) 100 09/02/19 06:56 74 16 97 Room Air 09/02/19 06:56 70 16 96 Room Air 21 09/02/19 04:00 98.8 96 17 119/66 (83) 95 09/02/19 00:00 99.0 89 16 124/71 (88) 96 09/01/19 20:51 Room Air 09/01/19 20:06 81 18 95 Room Air 09/01/19 20:06 82 16 95 09/01/19 20:00 99.2 94 18 127/68 (87) 96 09/01/19 16:00 99.5 80 20 130/70 (90) 100 09/01/19 13:48 73 16 95 Room Air 09/01/19 13:48 78 16 94 Intake and Output 09/01/19 09/02/19 19:00 07:00 Intake Total 1160 ml 1200 ml Output Total 1560 ml 1000 ml Balance -400 ml 200 ml Free Water 150 ml IV Total 710 ml 1200 ml Tube Feeding 300 ml Output Urine Total 1560 ml 1000 ml # Voids 2 Laboratory Tests Test 09/02/19 07:45 White Blood Count 5.3 K/UL (4.8-10.8) Red Blood Count 4.20 M/UL (4.70-6.10) L Hemoglobin 11.6 G/DL (14.2-18.0) L Hematocrit 36.6 % (42.0-52.0) L Mean Corpuscular Volume 87 FL (80-99) Mean Corpuscular Hemoglobin 27.6 PG (27.0-31.0) Mean Corpuscular Hemoglobin Concent 31.7 G/DL (32.0-36.0) L Red Cell Distribution Width 14.5 % (11.6-14.8) Platelet Count 258 K/UL (150-450) Mean Platelet Volume 9.5 FL (6.5-10.1) Neutrophils (%) (Auto) 63.6 % (45.0-75.0) Lymphocytes (%) (Auto) 26.1 % (20.0-45.0) Monocytes (%) (Auto) 9.6 % (1.0-10.0) Eosinophils (%) (Auto) 0.2 % (0.0-3.0) Basophils (%) (Auto) 0.6 % (0.0-2.0) Erythrocyte Sedimentation Rate 38 MM/HR (0-20) H Sodium Level 134 MMOL/L (136-145) L Potassium Level 3.7 MMOL/L (3.5-5.1) Chloride Level 101 MMOL/L (98-107) Carbon Dioxide Level 30 MMOL/L (21-32) Anion Gap 3 mmol/L (5-15) L Blood Urea Nitrogen 12 mg/dL (7-18) Creatinine 0.9 MG/DL (0.55-1.30) Estimat Glomerular Filtration Rate mL/min (>60) Glucose Level 181 MG/DL (74-106) H Calcium Level 8.3 MG/DL (8.5-10.1) L Phosphorus Level 2.4 MG/DL (2.5-4.9) L Magnesium Level 1.8 MG/DL (1.8-2.4) Total Bilirubin 0.4 MG/DL (0.2-1.0) Aspartate Amino Transf (AST/SGOT) 62 U/L (15-37) H Alanine Aminotransferase (ALT/SGPT) 44 U/L (12-78) Alkaline Phosphatase 118 U/L (46-116) H C-Reactive Protein, Quantitative 9.4 mg/dL (0.00-0.90) H Total Protein 7.0 G/DL (6.4-8.2) Albumin 1.7 G/DL (3.4-5.0) L Globulin 5.3 g/dL Albumin/Globulin Ratio 0.3 (1.0-2.7) L Amylase Level 424 U/L (25-115) H Lipase > 2000 U/L (73-393) H Height (Feet): 5 Height (Inches): 8.00 Weight (Pounds): 144 General Appearance: no apparent distress Cardiovascular: normal rate Respiratory/Chest: normal breath sounds, no respiratory distress Abdominal Exam: normal bowel sounds, non tender, soft Extremities: non-tender Mac Boston NP Sep 02, 2019 13:49
[2019-09-02 16:00] VITALS: BP 127/74
--- NOTE | 2019-09-02 16:38 | NUR ---
NURSE NOTES: DR Power ordered to resume N/G tube feedings as previously ordered.DR aware of patient Lipase results noted today,Lipase results >2000. stated he will discuss with GI and Okay to restart N/G tube feedings
--- NOTE | 2019-09-02 17:25 | Surgery Progress Note ---
Surgery Progress Note Subjective Additional Comments improving his moravian friend is at bedside and states noted much improvement since admission as well talking comfortable pending final swallow eval to start feeds labs noted okay to resume tube feeds denies any abdomial pain Objective Last 24 Hour Vital Signs Date Time Temp Pulse Resp B/P (MAP) Pulse Ox O2 Delivery O2 Flow Rate FiO2 09/02/19 16:00 98.2 78 18 127/74 (91) 97 09/02/19 12:46 76 16 96 Room Air 21 09/02/19 12:46 80 18 97 Room Air 09/02/19 12:00 97.4 91 20 131/67 (88) 98 09/02/19 10:15 86 126/65 09/02/19 10:13 126/65 09/02/19 08:50 Room Air 09/02/19 08:31 98.4 94 20 117/70 (86) 100 09/02/19 06:56 74 16 97 Room Air 09/02/19 06:56 70 16 96 Room Air 21 09/02/19 04:00 98.8 96 17 119/66 (83) 95 09/02/19 00:00 99.0 89 16 124/71 (88) 96 09/01/19 20:51 Room Air 09/01/19 20:06 81 18 95 Room Air 09/01/19 20:06 82 16 95 09/01/19 20:00 99.2 94 18 127/68 (87) 96 I&O Intake and Output 09/01/19 09/02/19 19:00 07:00 Intake Total 1160 ml 1200 ml Output Total 1560 ml 1000 ml Balance -400 ml 200 ml Free Water 150 ml IV Total 710 ml 1200 ml Tube Feeding 300 ml Output Urine Total 1560 ml 1000 ml # Voids 2 Dressing: other Wound: other Drains: other Cardiovascular: RSR Respiratory: clear Abdomen: soft, flat, non-tender, present bowel sounds, non-distended Extremities: no tenderness, no cyanosis, other Laboratory Tests Test 09/02/19 07:45 White Blood Count 5.3 K/UL (4.8-10.8) Red Blood Count 4.20 M/UL (4.70-6.10) L Hemoglobin 11.6 G/DL (14.2-18.0) L Hematocrit 36.6 % (42.0-52.0) L Mean Corpuscular Volume 87 FL (80-99) Mean Corpuscular Hemoglobin 27.6 PG (27.0-31.0) Mean Corpuscular Hemoglobin Concent 31.7 G/DL (32.0-36.0) L Red Cell Distribution Width 14.5 % (11.6-14.8) Platelet Count 258 K/UL (150-450) Mean Platelet Volume 9.5 FL (6.5-10.1) Neutrophils (%) (Auto) 63.6 % (45.0-75.0) Lymphocytes (%) (Auto) 26.1 % (20.0-45.0) Monocytes (%) (Auto) 9.6 % (1.0-10.0) Eosinophils (%) (Auto) 0.2 % (0.0-3.0) Basophils (%) (Auto) 0.6 % (0.0-2.0) Erythrocyte Sedimentation Rate 38 MM/HR (0-20) H Sodium Level 134 MMOL/L (136-145) L Potassium Level 3.7 MMOL/L (3.5-5.1) Chloride Level 101 MMOL/L (98-107) Carbon Dioxide Level 30 MMOL/L (21-32) Anion Gap 3 mmol/L (5-15) L Blood Urea Nitrogen 12 mg/dL (7-18) Creatinine 0.9 MG/DL (0.55-1.30) Estimat Glomerular Filtration Rate mL/min (>60) Glucose Level 181 MG/DL (74-106) H Calcium Level 8.3 MG/DL (8.5-10.1) L Phosphorus Level 2.4 MG/DL (2.5-4.9) L Magnesium Level 1.8 MG/DL (1.8-2.4) Total Bilirubin 0.4 MG/DL (0.2-1.0) Aspartate Amino Transf (AST/SGOT) 62 U/L (15-37) H Alanine Aminotransferase (ALT/SGPT) 44 U/L (12-78) Alkaline Phosphatase 118 U/L (46-116) H C-Reactive Protein, Quantitative 9.4 mg/dL (0.00-0.90) H Total Protein 7.0 G/DL (6.4-8.2) Albumin 1.7 G/DL (3.4-5.0) L Globulin 5.3 g/dL Albumin/Globulin Ratio 0.3 (1.0-2.7) L Amylase Level 424 U/L (25-115) H Lipase > 2000 U/L (73-393) H Plan Problems: (1) Failure to thrive (2) Hip fracture, left Assessment & Plan: lucency noted on plain films no pain on exam repeat films ordered There is irregularity of the left greater trochanter indicative of a injury. This is probably an old fracture. However please correlate clinically. There is no fracture of the femoral neck or intertrochanteric region bilaterally. The bones are osteopenic. There is no malalignment of either hip identified. IMPRESSION: Irregularity of the left greater trochanter which may be indicative of a previous fracture. Doubt acute injury. However please correlate clinically. Generalized osteopenia (3) Severe protein-calorie malnutrition (4) Rhabdomyolysis (5) Acidosis (6) Adult Failure To Thrive Assessment & Plan: able to voice sounds and says hello and that he is doing okay. No nausea vomiting fever chills. Labs improved. Tolerating tube feeds. States that he used to eat on his own. He is able to move his upper extremities and left lower extremity but does have a deficit in his right lower extremity. swallow eval (7) Pressure Ulcer Of Sacral Region, Unstageable Assessment & Plan: 1) Dehydration Assessment & Plan: AMS, found down dehydration improved with IVF ICD Codes: E86.0 - Dehydration SNOMED: 51344925 (2) Failure to thrive SNOMED: 72036922 (3) Rhabdomyolysis Assessment & Plan: likely from being down IV fluids trending down - resolved will monitor ICD Codes: M62.82 - Rhabdomyolysis SNOMED: 118032678 (4) Blood blister Assessment & Plan: Patient presented with multiple DTI and Blood blisters Found down prior and noted on eval in ED at [facility]. Seen upon admission to [facility] Patient with 8.8cm x 9cm sacral DTI with oozing on right sacral with resorbing blood blister. periwound intact and stable. Right scapula DTI 9.9cm x 5cm purple and indurated without drainage Left thoracic DTI 1cm x 3.5cm purple and indurated without drainage bilateral heels stable and soft with blanching no other skin concerns noted at this time Tx Plan: Monitor wounds for drainage. Will apply skin protectant and Optifoam dressings Daily and prn saturation Keep heels off loaded with pillows Air soft mattress Turn q2h Nutritional optimization Will follow with recs. ICD Codes: T14.8XXA - Other injury of unspecified body region, initial encounter SNOMED: 179864643 (5) Lactic acid acidosis Assessment & Plan: IV fluids resuscitation trend resolved ICD Codes: E87.2 - Acidosis SNOMED: 04945277 (6) Hip fracture, left Assessment & Plan: lucency noted on plain films no pain on exam repeat films ordered and noted ICD Codes: S72.002A - Fracture of unspecified part of neck of left femur, initial encounter for closed fracture SNOMED: 737332981 (7) Deep tissue injury ICD Codes: T14.8XXA - Other injury of unspecified body region, initial encounter SNOMED: 690242282 (8) Pancreatitis Assessment & Plan: lipase elevated MRI noted exam benign no complaints tolerating feeds given above cont with tube feeds. okay to advance to goal trend labs will monitor James Breen Sep 02, 2019 17:25
--- NOTE | 2019-09-02 18:45 | NUR ---
NURSE NOTES: N?G tube feedings restarted as ordered.N/G tube checked for placement by Auscultation.HOB is elevated.Turned and position.Bed alarm on,call light within reach,ROM given,soft wrist restraints on.
[2019-09-02] MEDS: cefTRIAXone 1 GM in D5W 55 ML IVPB SCH (19:00)
--- NOTE | 2019-09-02 19:26 | NUR ---
HAND-OFF: Report given to FADY TURNER.
--- NOTE | 2019-09-02 20:00 | NUR ---
NURSE NOTES: Received patient awake, non-verbal, on bilateral soft wrist restraints, started on NG-tube feeding.
[2019-09-02 20:15] VITALS: BP 118/63
[2019-09-03] VITALS (7 sets, daily range): BP systolic 113–133; BP diastolic 59–73
[2019-09-03] MEDS: Heparin 5000 units/ml inj SUBQ SCH ×3 (05:54→21:38)
[2019-09-03] MEDS: NovoLOG Insulin Flexpen SUBQ SCH ×4 (05:55→21:39)
[2019-09-03 06:28] LABS: BASOPHILS % (AUTO) 0.9 % (0.0-2.0); HEMATOCRIT 35.4 % (42.0-52.0); HEMOGLOBIN 11.2 G/DL (14.2-18.0); MEAN CORPUSCULAR VOLUME 88 FL (80-99); MONOCYTES % (AUTO) 12.8 % (1.0-10.0); NEUTROPHILS % (AUTO) 64.3 % (45.0-75.0); PLATELET COUNT 298 K/UL (150-450); RED BLOOD COUNT 4.03 M/UL (4.70-6.10); RED CELL DISTRIBUTION WIDTH 14.8 % (11.6-14.8); WHITE BLOOD COUNT 5.1 K/UL (4.8-10.8)
[2019-09-03 06:44] LABS: ANION GAP 2 mmol/L (5-15); BLOOD UREA NITROGEN 15 mg/dL (7-18); CALCIUM 7.9 MG/DL (8.5-10.1); CARBON DIOXIDE 29 MMOL/L (21-32); CHLORIDE 99 MMOL/L (98-107); CREATININE 0.9 MG/DL (0.55-1.30); SODIUM 130 MMOL/L (136-145)
--- NOTE | 2019-09-03 07:10 | NUR ---
HAND-OFF: Report given to Janeth Higgins RN.
--- NOTE | 2019-09-03 08:30 | NUR ---
NURSE NOTES: patient awake and alert to name,patient is non verbal but will respond with nod of head to questions.N/G with feedings no residual noted .N/G tube checked for placement by auscultatiion.mckinney catheter is in place and draining clear ej color urine.Turned and position for comfort.Oral care given.HOB is elevated.bed alarm is on soft wrist restraints on.ROM given .
[2019-09-03] MEDS: Aspirin Baby 81mg NG SCH (10:29)
[2019-09-03] MEDS: Levemir Flexpen SUBQ SCH (10:36)
[2019-09-03] MEDS: Benazepril 10mg tab NG SCH (10:37)
--- NOTE | 2019-09-03 11:29 | General Progress Note ---
Assessment/Plan Status: stable, unchanged Assessment/Plan: Assessment/Plan Problems: (1) Pancreatitis ICD Codes: K85.90 - Acute pancreatitis without necrosis or infection, unspecified SNOMED: 10775564 (2) Acute encephalopathy ICD Codes: G93.40 - Encephalopathy, unspecified SNOMED: 89213740, 403342810 (3) Failure to thrive SNOMED: 32131899 (4) Severe protein-calorie malnutrition ICD Codes: E43 - Unspecified severe protein-calorie malnutrition SNOMED: 512007714, 797843098, 573516047 Status: stable, unchanged Assessment/Plan US reviewed, negative MRCP negative elevated lipase NGTFs increase free water flushes for hypernatremia IV hydration repeat lipase levels fu ST evaluation, patient unable to participate at this time will consider PEG if necessary Subjective ROS Limited/Unobtainable: No Allergies: Coded Allergies: No Known Allergies (Unverified , 08/27/19) Objective Last 24 Hour Vital Signs Date Time Temp Pulse Resp B/P (MAP) Pulse Ox O2 Delivery O2 Flow Rate FiO2 09/03/19 10:38 86 133/73 09/03/19 10:37 133/73 09/03/19 09:00 Room Air 09/03/19 08:00 98.1 86 19 113/66 (82) 100 09/03/19 04:05 98.3 100 18 121/63 (82) 96 09/03/19 00:17 98.1 97 18 123/59 (80) 94 09/02/19 22:12 90 18 97 Room Air 21 09/02/19 20:18 Room Air 09/02/19 20:15 98.1 91 19 118/63 (81) 95 09/02/19 20:00 87 16 97 Room Air 21 09/02/19 16:00 98.2 78 18 127/74 (91) 97 09/02/19 12:46 76 16 96 Room Air 21 09/02/19 12:46 80 18 97 Room Air 09/02/19 12:00 97.4 91 20 131/67 (88) 98 Intake and Output 09/02/19 09/03/19 19:00 07:00 Intake Total 1000 ml 1740 ml Output Total 1300 ml Balance -300 ml 1740 ml Free Water 150 ml IV Total 1000 ml 1030 ml Tube Feeding 560 ml Output Urine Total 1300 ml Laboratory Tests 09/03/19 05:15: White Blood Count 5.1, Red Blood Count 4.03L, Hemoglobin 11.2L, Hematocrit 35.4L , Mean Corpuscular Volume 88, Mean Corpuscular Hemoglobin 27.8, Mean Corpuscular Hemoglobin Concent 31.6L, Red Cell Distribution Width 14.8, Platelet Count 298, Mean Platelet Volume 8.9, Neutrophils (%) (Auto) 64.3, Lymphocytes (%) (Auto) 22.0, Monocytes (%) (Auto) 12.8H, Eosinophils (%) (Auto) 0.0, Basophils (%) (Auto) 0.9, Sodium Level 130L, Potassium Level 4.0, Chloride Level 99, Carbon Dioxide Level 29, Anion Gap 2L, Blood Urea Nitrogen 15, Creatinine 0.9, Estimat Glomerular Filtration Rate , Glucose Level 266H, Calcium Level 7.9L Height (Feet): 5 Height (Inches): 8.00 Weight (Pounds): 144 General Appearance: no apparent distress EENT: normal ENT inspection Neck: supple Cardiovascular: normal rate Respiratory/Chest: decreased breath sounds Abdomen: normal bowel sounds, non tender, soft Extremities: non-tender Alek Smith MD Sep 03, 2019 11:29
--- NOTE | 2019-09-03 12:28 | NUR ---
SWALLOW/SPEECH THERAPY NOTE: PATIENT IS MORE ALERT PER JOHNNY YEE AND ADRIENNE FOURNIER. HE IS AT HIGH RISK FOR SILENT ASPIRATION AND NEEDS A MOD BARIUM SWALLOW STUDY. UNABLE TO COMPLETE STUDY UNTIL TOMORROW DUE TO SCHEDULE CONFLICTS TODAY. PLAN: SEE TOMORROW KEEP NO PO AND CONTINUE WITH ORAL CARE AND NGT FEEDINGS RECOMMENDED
[2019-09-03] MEDS ORDERED: Varibar Pudding 230ml MC PRN (13:00)
[2019-09-03] MEDS ORDERED: Varibar Nectar 240ml MC PRN (13:00)
[2019-09-03] MEDS ORDERED: Varibar Honey 250ml MC PRN (13:00)
--- NOTE | 2019-09-03 13:08 | NUR ---
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 98.1 HR 84 RR 19 B/P 113/66 NA 130 CA 7.9 LIPASE .1999 (09/02) IS: IVF D5@ 100ML/HR [id number] IV HEPARIN SUBC SWALLOW EVAL MED/SURG STATUS
--- NOTE | 2019-09-03 13:18 | Pulmonology Progress Note ---
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 (3) Acute encephalopathy (4) Severe protein-calorie malnutrition (5) History of hypertension (6) Diabetes mellitus Assessment/Plan NG tube is in, tolerating feeding might need antipsychotic to keep him calm social service manager to look for family mental status better will need Gtube and prison placement Subjective ROS Limited/Unobtainable: No Constitutional: Reports: no symptoms HEENT: Repors: no symptoms Respiratory: Reports: no symptoms Allergies: Coded Allergies: No Known Allergies (Unverified , 08/27/19) Objective Last 24 Hour Vital Signs Date Time Temp Pulse Resp B/P (MAP) Pulse Ox O2 Delivery O2 Flow Rate FiO2 09/03/19 10:38 86 133/73 09/03/19 10:37 133/73 09/03/19 09:00 Room Air 09/03/19 08:00 98.1 86 19 113/66 (82) 100 09/03/19 04:05 98.3 100 18 121/63 (82) 96 09/03/19 00:17 98.1 97 18 123/59 (80) 94 09/02/19 22:12 90 18 97 Room Air 21 09/02/19 20:18 Room Air 09/02/19 20:15 98.1 91 19 118/63 (81) 95 09/02/19 20:00 87 16 97 Room Air 21 09/02/19 16:00 98.2 78 18 127/74 (91) 97 Intake and Output 09/02/19 09/03/19 18:59 06:59 Intake Total 1000 ml 1680 ml Output Total 1300 ml Balance -300 ml 1680 ml Free Water 150 ml IV Total 1000 ml 1030 ml Tube Feeding 500 ml Output Urine Total 1300 ml General Appearance: WD/WN HEENT: normocephalic, PERRL Respiratory/Chest: chest wall non-tender, no accessory muscle use Cardiovascular: normal rate, no gallop/murmur Abdomen: normal bowel sounds, non distended Extremities: no cyanosis Skin: no lesions Laboratory Tests 09/03/19 05:15: White Blood Count 5.1, Red Blood Count 4.03L, Hemoglobin 11.2L, Hematocrit 35.4L , Mean Corpuscular Volume 88, Mean Corpuscular Hemoglobin 27.8, Mean Corpuscular Hemoglobin Concent 31.6L, Red Cell Distribution Width 14.8, Platelet Count 298, Mean Platelet Volume 8.9, Neutrophils (%) (Auto) 64.3, Lymphocytes (%) (Auto) 22.0, Monocytes (%) (Auto) 12.8H, Eosinophils (%) (Auto) 0.0, Basophils (%) (Auto) 0.9, Sodium Level 130L, Potassium Level 4.0, Chloride Level 99, Carbon Dioxide Level 29, Anion Gap 2L, Blood Urea Nitrogen 15, Creatinine 0.9, Estimat Glomerular Filtration Rate , Glucose Level 266H, Calcium Level 7.9L Current Medications Medications (Trade) Dose Ordered Sig/Debi Route PRN Reason Start Time Stop Time Status Last Admin Dose Admin Acetaminophen (Tylenol) 650 mg Q4H PRN RECTAL Prn Headache/Temp > 101 08/27/19 12:00 09/26/19 11:59 08/29/19 00:34 Acetaminophen (Tylenol) 650 mg Q6H PRN NG Mild Pain/Temp > 100.5 09/03/19 10:30 09/26/19 01:59 Amlodipine Besylate (Norvasc) 10 mg DAILY NG 09/03/19 11:00 10/03/19 10:59 09/03/19 10:38 Aspirin (ASA) 81 mg DAILY NG 09/03/19 11:00 09/26/19 08:59 09/03/19 10:29 Barium Sulfate (Varibar Honey) 250 ml NOW PRN MC RAD 09/03/19 13:00 09/06/19 12:45 Barium Sulfate (Varibar [place]) 240 ml NOW PRN MC RAD 09/03/19 13:00 09/06/19 12:45 Barium Sulfate (Varibar Pudding) 230 ml NOW PRN MC RAD 09/03/19 13:00 09/06/19 12:45 Benazepril HCl (Lotensin) 10 mg DAILY NG 09/03/19 11:00 10/03/19 10:59 09/03/19 10:37 Ceftriaxone Sodium 1 gm/ Dextrose 55 ml @ 110 mls/hr Q24H IVPB 08/28/19 18:00 09/04/19 17:59 09/02/19 19:00 Dextrose 1,000 ml @ 100 mls/hr Q10H IV 08/28/19 10:00 09/27/19 09:59 09/03/19 04:15 Dextrose (Dextrose 50%) 25 ml Q30M PRN IV Hypoglycemia 08/27/19 15:15 09/26/19 15:14 Dextrose (Dextrose 50%) 50 ml Q30M PRN IV Hypoglycemia 08/27/19 15:15 09/26/19 15:14 Heparin Sodium (Porcine) (Heparin 5000 units/ml) 5,000 units EVERY 8 HOURS SUBQ 08/27/19 06:00 09/26/19 05:59 09/03/19 05:54 Insulin Aspart (NovoLOG) BEFORE MEALS AND HS SUBQ 08/29/19 11:30 09/28/19 11:29 09/03/19 12:32 Insulin Detemir (Levemir) 6 units DAILY SUBQ 08/30/19 12:00 09/29/19 11:59 09/03/19 10:36 Latanya Mckeon MD Sep 03, 2019 13:18
--- NOTE | 2019-09-03 14:58 | Internal Med Progress Note ---
Subjective Physician Name Cirilo Rome Attending Physician Cirilo Rome MD Current Medications Medications (Trade) Dose Ordered Sig/Deib Route PRN Reason Start Time Stop Time Status Last Admin Dose Admin Acetaminophen (Tylenol) 650 mg Q4H PRN RECTAL Prn Headache/Temp > 101 08/27/19 12:00 09/26/19 11:59 08/29/19 00:34 Acetaminophen (Tylenol) 650 mg Q6H PRN NG Mild Pain/Temp > 100.5 09/03/19 10:30 09/26/19 01:59 Amlodipine Besylate (Norvasc) 10 mg DAILY NG 09/03/19 11:00 10/03/19 10:59 09/03/19 10:38 Aspirin (ASA) 81 mg DAILY NG 09/03/19 11:00 09/26/19 08:59 09/03/19 10:29 Barium Sulfate (Varibar Honey) 250 ml NOW PRN MC RAD 09/03/19 13:00 09/06/19 12:45 Barium Sulfate (Varibar [place]) 240 ml NOW PRN MC RAD 09/03/19 13:00 09/06/19 12:45 Barium Sulfate (Varibar Pudding) 230 ml NOW PRN MC RAD 09/03/19 13:00 09/06/19 12:45 Benazepril HCl (Lotensin) 10 mg DAILY NG 09/03/19 11:00 10/03/19 10:59 09/03/19 10:37 Ceftriaxone Sodium 1 gm/ Dextrose 55 ml @ 110 mls/hr Q24H IVPB 08/28/19 18:00 09/04/19 17:59 09/02/19 19:00 Dextrose 1,000 ml @ 100 mls/hr Q10H IV 08/28/19 10:00 09/27/19 09:59 09/03/19 04:15 Dextrose (Dextrose 50%) 25 ml Q30M PRN IV Hypoglycemia 08/27/19 15:15 09/26/19 15:14 Dextrose (Dextrose 50%) 50 ml Q30M PRN IV Hypoglycemia 08/27/19 15:15 09/26/19 15:14 Heparin Sodium (Porcine) (Heparin 5000 units/ml) 5,000 units EVERY 8 HOURS SUBQ 08/27/19 06:00 09/26/19 05:59 09/03/19 14:15 Insulin Aspart (NovoLOG) BEFORE MEALS AND HS SUBQ 08/29/19 11:30 09/28/19 11:29 09/03/19 12:32 Insulin Detemir (Levemir) 6 units DAILY SUBQ 08/30/19 12:00 09/29/19 11:59 09/03/19 10:36 Allergies: Coded Allergies: No Known Allergies (Unverified , 08/27/19) Subjective Awake, alert, responsive, no acute distress, tolerated tube feeding, calm. Objective Last Vital Signs Date Time Temp Pulse Resp B/P (MAP) Pulse Ox O2 Delivery O2 Flow Rate FiO2 09/03/19 12:00 97.8 86 19 133/65 (87) 98 09/03/19 09:00 Room Air 09/02/19 22:12 21 Laboratory Tests Test 09/03/19 05:15 White Blood Count 5.1 K/UL (4.8-10.8) Red Blood Count 4.03 M/UL (4.70-6.10) L Hemoglobin 11.2 G/DL (14.2-18.0) L Hematocrit 35.4 % (42.0-52.0) L Mean Corpuscular Volume 88 FL (80-99) Mean Corpuscular Hemoglobin 27.8 PG (27.0-31.0) Mean Corpuscular Hemoglobin Concent 31.6 G/DL (32.0-36.0) L Red Cell Distribution Width 14.8 % (11.6-14.8) Platelet Count 298 K/UL (150-450) Mean Platelet Volume 8.9 FL (6.5-10.1) Neutrophils (%) (Auto) 64.3 % (45.0-75.0) Lymphocytes (%) (Auto) 22.0 % (20.0-45.0) Monocytes (%) (Auto) 12.8 % (1.0-10.0) H Eosinophils (%) (Auto) 0.0 % (0.0-3.0) Basophils (%) (Auto) 0.9 % (0.0-2.0) Sodium Level 130 MMOL/L (136-145) L Potassium Level 4.0 MMOL/L (3.5-5.1) Chloride Level 99 MMOL/L (98-107) Carbon Dioxide Level 29 MMOL/L (21-32) Anion Gap 2 mmol/L (5-15) L Blood Urea Nitrogen 15 mg/dL (7-18) Creatinine 0.9 MG/DL (0.55-1.30) Estimat Glomerular Filtration Rate mL/min (>60) Glucose Level 266 MG/DL (74-106) H Calcium Level 7.9 MG/DL (8.5-10.1) L Intake and Output 09/02/19 09/03/19 19:00 07:00 Intake Total 1000 ml 1740 ml Output Total 1300 ml Balance -300 ml 1740 ml Free Water 150 ml IV Total 1000 ml 1030 ml Tube Feeding 560 ml Output Urine Total 1300 ml Objective General: No acute distress, awake and responsive. HEENT: NCAT, sclera anicteric, PERRL, EOMI, NG Tube. Neck: Supple, no significant jugular venous distention, Lungs: fair inspiratory effort, decreased air at the bases, no Wheeze or Rales. Heart: Regular rate and rhythm, normal S1/S2, no murmurs Abdomen: soft, nontender, nondistended. Normoactive bowel sounds. Extremities: No Cyanosis , clubbing or edema. Neuro: A&O x 2, able to move upper extremities, Lower extremities weakness. Skin: warm, blood blisters, sacral ulcer. Assessment/Plan Assessment/Plan 1. Altered mental status likely secondary to toxic metabolic encephalopathy. 2. Fracture of the left femur greater trochanter. 3. Rhabdomyolysis. 4. Dehydration. 5. Diabetes type 2. 6. Hypertension. 7. Hypercholesterolemia. 8. Hyponatremia. 9. dehydration 10. deep tissue injury. 11. Severe protein calorie malnutrition 12. Spiking fever possible urinary tract infection Plan: Tolerated tube feeding at 60 cc/hr. DVT prophylaxis with heparin subcu. CODE STATUS is full code. Abx: DC Rocephin Follow-up with the laboratory in the morning. swallow study Cirilo Rome MD Sep 03, 2019 14:58
--- NOTE | 2019-09-03 17:48 | Surgery Progress Note ---
Surgery Progress Note Subjective Additional Comments improving no acute events was unable to complete swallow eval today because of schedule plan for swallow eval if needed peg vs diet d/c planning for placement Objective Last 24 Hour Vital Signs Date Time Temp Pulse Resp B/P (MAP) Pulse Ox O2 Delivery O2 Flow Rate FiO2 09/03/19 12:00 97.8 86 19 133/65 (87) 98 09/03/19 10:38 86 133/73 09/03/19 10:37 133/73 09/03/19 09:00 Room Air 09/03/19 08:00 98.1 86 19 113/66 (82) 100 09/03/19 04:05 98.3 100 18 121/63 (82) 96 09/03/19 00:17 98.1 97 18 123/59 (80) 94 09/02/19 22:12 90 18 97 Room Air 21 09/02/19 20:18 Room Air 09/02/19 20:15 98.1 91 19 118/63 (81) 95 09/02/19 20:00 87 16 97 Room Air 21 I&O Intake and Output 09/02/19 09/03/19 19:00 07:00 Intake Total 1000 ml 1740 ml Output Total 1300 ml Balance -300 ml 1740 ml Free Water 150 ml IV Total 1000 ml 1030 ml Tube Feeding 560 ml Output Urine Total 1300 ml Dressing: other Wound: other Drains: other Cardiovascular: RSR Respiratory: clear Abdomen: soft, non-tender, present bowel sounds Extremities: no edema, no tenderness, no cyanosis, other Laboratory Tests Test 09/03/19 05:15 White Blood Count 5.1 K/UL (4.8-10.8) Red Blood Count 4.03 M/UL (4.70-6.10) L Hemoglobin 11.2 G/DL (14.2-18.0) L Hematocrit 35.4 % (42.0-52.0) L Mean Corpuscular Volume 88 FL (80-99) Mean Corpuscular Hemoglobin 27.8 PG (27.0-31.0) Mean Corpuscular Hemoglobin Concent 31.6 G/DL (32.0-36.0) L Red Cell Distribution Width 14.8 % (11.6-14.8) Platelet Count 298 K/UL (150-450) Mean Platelet Volume 8.9 FL (6.5-10.1) Neutrophils (%) (Auto) 64.3 % (45.0-75.0) Lymphocytes (%) (Auto) 22.0 % (20.0-45.0) Monocytes (%) (Auto) 12.8 % (1.0-10.0) H Eosinophils (%) (Auto) 0.0 % (0.0-3.0) Basophils (%) (Auto) 0.9 % (0.0-2.0) Sodium Level 130 MMOL/L (136-145) L Potassium Level 4.0 MMOL/L (3.5-5.1) Chloride Level 99 MMOL/L (98-107) Carbon Dioxide Level 29 MMOL/L (21-32) Anion Gap 2 mmol/L (5-15) L Blood Urea Nitrogen 15 mg/dL (7-18) Creatinine 0.9 MG/DL (0.55-1.30) Estimat Glomerular Filtration Rate mL/min (>60) Glucose Level 266 MG/DL (74-106) H Calcium Level 7.9 MG/DL (8.5-10.1) L Plan Problems: (1) Failure to thrive (2) Hip fracture, left Assessment & Plan: lucency noted on plain films no pain on exam repeat films ordered There is irregularity of the left greater trochanter indicative of a injury. This is probably an old fracture. However please correlate clinically. There is no fracture of the femoral neck or intertrochanteric region bilaterally. The bones are osteopenic. There is no malalignment of either hip identified. IMPRESSION: Irregularity of the left greater trochanter which may be indicative of a previous fracture. Doubt acute injury. However please correlate clinically. Generalized osteopenia (3) Severe protein-calorie malnutrition (4) Rhabdomyolysis (5) Acidosis (6) Adult Failure To Thrive Assessment & Plan: able to voice sounds and says hello and that he is doing okay. No nausea vomiting fever chills. Labs improved. Tolerating tube feeds. States that he used to eat on his own. He is able to move his upper extremities and left lower extremity but does have a deficit in his right lower extremity. swallow eval (7) Pressure Ulcer Of Sacral Region, Unstageable Assessment & Plan: 1) Dehydration Assessment & Plan: AMS, found down dehydration improved with IVF ICD Codes: E86.0 - Dehydration SNOMED: 86343918 (2) Failure to thrive SNOMED: 43640042 (3) Rhabdomyolysis Assessment & Plan: likely from being down IV fluids trending down - resolved will monitor ICD Codes: M62.82 - Rhabdomyolysis SNOMED: 354286355 (4) Blood blister Assessment & Plan: Patient presented with multiple DTI and Blood blisters Found down prior and noted on eval in ED at [facility]. Seen upon admission to [facility] Patient with 8.8cm x 9cm sacral DTI with oozing on right sacral with resorbing blood blister. periwound intact and stable. Right scapula DTI 9.9cm x 5cm purple and indurated without drainage Left thoracic DTI 1cm x 3.5cm purple and indurated without drainage bilateral heels stable and soft with blanching no other skin concerns noted at this time Tx Plan: Monitor wounds for drainage. Will apply skin protectant and Optifoam dressings Daily and prn saturation Keep heels off loaded with pillows Air soft mattress Turn q2h Nutritional optimization Will follow with recs. ICD Codes: T14.8XXA - Other injury of unspecified body region, initial encounter SNOMED: 024840141 (5) Lactic acid acidosis Assessment & Plan: IV fluids resuscitation trend resolved ICD Codes: E87.2 - Acidosis SNOMED: 35051073 (6) Hip fracture, left Assessment & Plan: lucency noted on plain films no pain on exam repeat films ordered and noted ICD Codes: S72.002A - Fracture of unspecified part of neck of left femur, initial encounter for closed fracture SNOMED: 729900281 (7) Deep tissue injury ICD Codes: T14.8XXA - Other injury of unspecified body region, initial encounter SNOMED: 698359902 (8) Pancreatitis Assessment & Plan: lipase elevated MRI noted exam benign no complaints tolerating feeds given above cont with tube feeds. okay to advance to goal trend labs will monitor James Breen Sep 03, 2019 17:48
--- NOTE | 2019-09-03 19:00 | NUR ---
NURSE NOTES: Patient continues to tolerate N/G tube feedings,no residual noted,.IV site right arm will need restart.HOB elevated.Bed alarm on,call light within reach.Soft wrist restraints on,ROM given,skin care.Adams catheter remains in place.
--- NOTE | 2019-09-03 19:30 | NUR ---
HAND-OFF: Report given to FADY TURNER.
--- NOTE | 2019-09-03 20:00 | NUR ---
NURSE NOTES: Received patient awake, non-verbal, on bilateral soft wrist restraints, tolerating his NG-tube feeding.
--- NOTE | 2019-09-04 03:22 | NUR ---
HAND-OFF: Report given to Higinio Matias RN.
[2019-09-04 04:00] VITALS: BP 134/61
[2019-09-04] MEDS: Heparin 5000 units/ml inj SUBQ SCH ×3 (06:09→21:43)
[2019-09-04] MEDS: NovoLOG Insulin Flexpen SUBQ SCH ×4 (06:10→20:42)
[2019-09-04 06:30] LABS: BASOPHILS % (AUTO) 0.5 % (0.0-2.0); EOSINOPHILS % (AUTO) 0.1 % (0.0-3.0); HEMATOCRIT 35.9 % (42.0-52.0); HEMOGLOBIN 11.5 G/DL (14.2-18.0); LYMPHOCYTES % (AUTO) 20.4 % (20.0-45.0); MEAN CORPUSCULAR VOLUME 87 FL (80-99); MONOCYTES % (AUTO) 7.2 % (1.0-10.0); NEUTROPHILS % (AUTO) 71.9 % (45.0-75.0); PLATELET COUNT 388 K/UL (150-450); RED BLOOD COUNT 4.12 M/UL (4.70-6.10); RED CELL DISTRIBUTION WIDTH 14.8 % (11.6-14.8); WHITE BLOOD COUNT 6.9 K/UL (4.8-10.8)
--- NOTE | 2019-09-04 07:25 | NUR ---
HAND-OFF: Report given to Magdalena Elliott.
--- NOTE | 2019-09-04 07:26 | NUR ---
HAND-OFF: Report given to Magdalena Elliott.
--- NOTE | 2019-09-04 07:30 | NUR ---
NURSE NOTES: Received report from JOHNNY Sylvester. Patient A&Ox1, spontaneous eye movement, attempting to speak. On room air, no signs of distress or labored breathing. NG tube in right nare, infusing formula. IV intact, patent, and infusing IV fluids. Adams intact, patent, and draining urine. Bilateral soft wrist restraints on. Bed in lowest position with call light in reach. Will continue with plan of care.
[2019-09-04 07:38] LABS: ALANINE AMINOTRANSFERASE 58 U/L (12-78); ALBUMIN 1.8 G/DL (3.4-5.0); ALBUMIN/GLOBULIN RATIO 0.3 (1.0-2.7); ALKALINE PHOSPHATASE 259 U/L (46-116); AMYLASE 339 U/L (25-115); ANION GAP 2 mmol/L (5-15); ASPARTATE AMINO TRANSFERASE 59 U/L (15-37); BILIRUBIN,TOTAL 0.4 MG/DL (0.2-1.0); BLOOD UREA NITROGEN 14 mg/dL (7-18); CALCIUM 7.7 MG/DL (8.5-10.1); CARBON DIOXIDE 31 MMOL/L (21-32); CHLORIDE 99 MMOL/L (98-107); POTASSIUM 4.3 MMOL/L (3.5-5.1); SODIUM 132 MMOL/L (136-145)
[2019-09-04 08:00] VITALS: BP 122/67
--- NOTE | 2019-09-04 08:28 | NUR ---
SS note Patient RN Ji Warner ([phone]) who explains patient does not have any family or friends who are making decisions for patient. Patient will need to be his own decision maker, as able vs [employer], as needed. P.T to evaluate/treat. SNF recommended upon discharge.
[2019-09-04] MEDS: Aspirin Baby 81mg NG SCH (09:51)
[2019-09-04] MEDS: Benazepril 10mg tab NG SCH (09:52)
[2019-09-04] MEDS: Levemir Flexpen SUBQ SCH (09:54)
--- NOTE | 2019-09-04 10:46 | General Progress Note ---
Assessment/Plan Status: stable, unchanged Assessment/Plan: Assessment/Plan Problems: (1) Pancreatitis ICD Codes: K85.90 - Acute pancreatitis without necrosis or infection, unspecified SNOMED: 91659544 (2) Acute encephalopathy ICD Codes: G93.40 - Encephalopathy, unspecified SNOMED: 42137160, 497737696 (3) Failure to thrive SNOMED: 55166263 (4) Severe protein-calorie malnutrition ICD Codes: E43 - Unspecified severe protein-calorie malnutrition SNOMED: 146515111, 362609700, 231215439 Status: stable, unchanged Assessment/Plan US reviewed, negative MRCP negative elevated lipase NGTFs increase free water flushes for hypernatremia IV hydration repeat lipase levels pending swallow eval will consider PEG if necessary Subjective ROS Limited/Unobtainable: No Allergies: Coded Allergies: No Known Allergies (Unverified , 08/27/19) Objective Last 24 Hour Vital Signs Date Time Temp Pulse Resp B/P (MAP) Pulse Ox O2 Delivery O2 Flow Rate FiO2 09/04/19 09:52 122/67 09/04/19 09:52 106 122/67 09/04/19 04:00 97.2 101 18 134/61 (85) 94 09/03/19 23:56 99.6 67 18 125/73 (90) 98 09/03/19 21:00 Room Air 09/03/19 20:00 99.0 103 18 117/61 (79) 95 09/03/19 16:00 97.5 104 17 119/59 (79) 98 09/03/19 12:00 97.8 86 19 133/65 (87) 98 Intake and Output 09/03/19 09/04/19 19:00 07:00 Intake Total 1510 ml 560 ml Output Total 1200 ml 1100 ml Balance 310 ml -540 ml Free Water 150 ml IV Total 700 ml 200 ml Tube Feeding 660 ml 360 ml Output Urine Total 1200 ml 1100 ml Laboratory Tests 09/04/19 05:42: White Blood Count 6.9, Red Blood Count 4.12L, Hemoglobin 11.5L, Hematocrit 35.9L , Mean Corpuscular Volume 87, Mean Corpuscular Hemoglobin 28.0, Mean Corpuscular Hemoglobin Concent 32.1, Red Cell Distribution Width 14.8, Platelet Count 388, Mean Platelet Volume 8.3, Neutrophils (%) (Auto) 71.9, Lymphocytes (% ) (Auto) 20.4, Monocytes (%) (Auto) 7.2, Eosinophils (%) (Auto) 0.1, Basophils ( %) (Auto) 0.5, Sodium Level 132L, Potassium Level 4.3, Chloride Level 99, Carbon Dioxide Level 31, Anion Gap 2L, Blood Urea Nitrogen 14, Creatinine 1.0, Estimat Glomerular Filtration Rate , Glucose Level 225H, Calcium Level 7.7L, Total Bilirubin 0.4, Aspartate Amino Transf (AST/SGOT) 59H, Alanine Aminotransferase (ALT/SGPT) 58, Alkaline Phosphatase 259H, Total Protein 7.1, Albumin 1.8L, Globulin 5.3, Albumin/Globulin Ratio 0.3L, Amylase Level 339H, Lipase 1753H Height (Feet): 5 Height (Inches): 8.00 Weight (Pounds): 144 General Appearance: alert EENT: normal ENT inspection Neck: supple Cardiovascular: normal rate Respiratory/Chest: decreased breath sounds Abdomen: normal bowel sounds, non tender, soft Extremities: non-tender Alek Smith MD Sep 04, 2019 10:46
[2019-09-04 12:00] VITALS: BP 116/67
--- NOTE | 2019-09-04 12:18 | NUR ---
WEEKLY SWALLOW/SPEECH THERAPY SUMMARY: SWALLOW STATUS: SEEN FOR DYSPHAGIA. STILL AWAITING MOD BARIUM SWALLOW STUDY, NOT COMPLETED DUE TO SCHEDULING PROBLEMS. PATIENT HAD NGT FEEDINGS. PO TRIALS WITH TSP NECTAR THICK WATER, CHEWED ON BOLUS FOR 25 SECONDS PRIOR TO TRIGGERING A SWALLOW EVEN WITH MAX VIS[employer], TACTILE, AND VERBAL CUES, NO ORAL RESIDUE NO OVERT ASPIRATION. GIVEN ANOTHER TSP, SWALLOWED AFTER 5 SECONDS THEN SWALLOW WITH FAIR HYOLARYNEGEAL EXCURSION, NO ORAL RESIDUE BUT COUGHED (WEAK) AFTER THE SWALLOW. TONGUE ROM IS LIMITED TO LOWER LIP BUT ADEQUATE FOR OTHER DIRECTIONS, SPEED IS SIGNIFICANTLY REDUCED, AND DID NOT COMPREHEND HOW TO COMPLETE STRENGTH TESTING. GIVEN SILENT ASP RISK, WILL HOLD ON FURTHER PO TRIALS UNTIL SATURDAY MBSS, UNLIKELY TO MEET NUTRITION/HYDRATION NEEDS OF 3 MEALS AT 75% INTAKE. SPEECH STATUS POOR VERBAL INITIATION. VOICE IS BREATHY TO SOFT AND DIFFICULT TO UNDERSTAND IN QUIET SETTING MOST OF THE TIME. ABLE TO SAY HIS LAST NAME. PER RNJOSIANE, PATIENT APPEARS TO KNOW TWI (LANGUAGE OF [facility]) AND SOME GUINEAN. PLAN: CONTINUE WITH NGT FEEDINGS AND ORAL CARE FOR NOW. MOD BARIUM SWALLOW STUDY NEXT WEEK Addendum: 09/04/19 at 1223 by LEIDA MANDEL FUR SEWER D/W PATIENT, DR FORUNIER AND JOHNNY JOSHUA
--- NOTE | 2019-09-04 12:39 | Pulmonology Progress Note ---
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 (3) Acute encephalopathy (4) Severe protein-calorie malnutrition (5) History of hypertension (6) Diabetes mellitus Assessment/Plan NG tube is in, tolerating feeding, might need antipsychotic to keep him calm renal social worker to look for family mental status better will need Gtube and detention placement Subjective ROS Limited/Unobtainable: No Constitutional: Reports: no symptoms HEENT: Repors: no symptoms Respiratory: Reports: no symptoms Allergies: Coded Allergies: No Known Allergies (Unverified , 08/27/19) Objective Last 24 Hour Vital Signs Date Time Temp Pulse Resp B/P (MAP) Pulse Ox O2 Delivery O2 Flow Rate FiO2 09/04/19 09:52 122/67 09/04/19 09:52 106 122/67 09/04/19 04:00 97.2 101 18 134/61 (85) 94 09/03/19 23:56 99.6 67 18 125/73 (90) 98 09/03/19 21:00 Room Air 09/03/19 20:00 99.0 103 18 117/61 (79) 95 09/03/19 16:00 97.5 104 17 119/59 (79) 98 Intake and Output 09/03/19 09/04/19 19:00 07:00 Intake Total 1510 ml 560 ml Output Total 1200 ml 1100 ml Balance 310 ml -540 ml Free Water 150 ml IV Total 700 ml 200 ml Tube Feeding 660 ml 360 ml Output Urine Total 1200 ml 1100 ml Objective still has ng tube General Appearance: WD/WN HEENT: normocephalic, anicteric Respiratory/Chest: chest wall non-tender, normal breath sounds Cardiovascular: normal rate, no gallop/murmur Abdomen: no organomegaly Genitourinary: normal external genitalia Skin: no lesions Laboratory Tests 09/04/19 05:42: White Blood Count 6.9, Red Blood Count 4.12L, Hemoglobin 11.5L, Hematocrit 35.9L , Mean Corpuscular Volume 87, Mean Corpuscular Hemoglobin 28.0, Mean Corpuscular Hemoglobin Concent 32.1, Red Cell Distribution Width 14.8, Platelet Count 388, Mean Platelet Volume 8.3, Neutrophils (%) (Auto) 71.9, Lymphocytes (% ) (Auto) 20.4, Monocytes (%) (Auto) 7.2, Eosinophils (%) (Auto) 0.1, Basophils ( %) (Auto) 0.5, Sodium Level 132L, Potassium Level 4.3, Chloride Level 99, Carbon Dioxide Level 31, Anion Gap 2L, Blood Urea Nitrogen 14, Creatinine 1.0, Estimat Glomerular Filtration Rate , Glucose Level 225H, Calcium Level 7.7L, Total Bilirubin 0.4, Aspartate Amino Transf (AST/SGOT) 59H, Alanine Aminotransferase (ALT/SGPT) 58, Alkaline Phosphatase 259H, Total Protein 7.1, Albumin 1.8L, Globulin 5.3, Albumin/Globulin Ratio 0.3L, Amylase Level 339H, Lipase 1753H Current Medications Medications (Trade) Dose Ordered Sig/Debi Route PRN Reason Start Time Stop Time Status Last Admin Dose Admin Acetaminophen (Tylenol) 650 mg Q4H PRN RECTAL Prn Headache/Temp > 101 08/27/19 12:00 09/26/19 11:59 08/29/19 00:34 Acetaminophen (Tylenol) 650 mg Q6H PRN NG Mild Pain/Temp > 100.5 09/03/19 10:30 09/26/19 01:59 Amlodipine Besylate (Norvasc) 10 mg DAILY NG 09/03/19 11:00 10/03/19 10:59 09/04/19 09:52 Aspirin (ASA) 81 mg DAILY NG 09/03/19 11:00 09/26/19 08:59 09/04/19 09:51 Barium Sulfate (Varibar Honey) 250 ml NOW PRN MC RAD 09/03/19 13:00 09/06/19 12:45 Barium Sulfate (Varibar [place]) 240 ml NOW PRN MC RAD 09/03/19 13:00 09/06/19 12:45 Barium Sulfate (Varibar Pudding) 230 ml NOW PRN MC RAD 09/03/19 13:00 09/06/19 12:45 Benazepril HCl (Lotensin) 10 mg DAILY NG 09/03/19 11:00 10/03/19 10:59 09/04/19 09:52 Dextrose 1,000 ml @ 100 mls/hr Q10H IV 08/28/19 10:00 09/27/19 09:59 09/04/19 11:57 Dextrose (Dextrose 50%) 25 ml Q30M PRN IV Hypoglycemia 08/27/19 15:15 09/26/19 15:14 Dextrose (Dextrose 50%) 50 ml Q30M PRN IV Hypoglycemia 08/27/19 15:15 09/26/19 15:14 Heparin Sodium (Porcine) (Heparin 5000 units/ml) 5,000 units EVERY 8 HOURS SUBQ 08/27/19 06:00 09/26/19 05:59 09/04/19 06:09 Insulin Aspart (NovoLOG) BEFORE MEALS AND HS SUBQ 08/29/19 11:30 09/28/19 11:29 09/04/19 11:57 Insulin Detemir (Levemir) 6 units DAILY SUBQ 08/30/19 12:00 09/29/19 11:59 09/04/19 09:54 Latanya Mckeon MD Sep 04, 2019 12:39
--- NOTE | 2019-09-04 15:30 | NUR ---
NURSE NOTES: Dressing change done per Dr. Breen.
--- NOTE | 2019-09-04 15:32 | Surgery Progress Note ---
Surgery Progress Note Subjective Additional Comments slowly improving tolerating tube feeds at 60cc/hr lip/arnaldo tending down no pain comfortable Objective Last 24 Hour Vital Signs Date Time Temp Pulse Resp B/P (MAP) Pulse Ox O2 Delivery O2 Flow Rate FiO2 09/04/19 09:52 122/67 09/04/19 09:52 106 122/67 09/04/19 04:00 97.2 101 18 134/61 (85) 94 09/03/19 23:56 99.6 67 18 125/73 (90) 98 09/03/19 21:00 Room Air 09/03/19 20:00 99.0 103 18 117/61 (79) 95 09/03/19 16:00 97.5 104 17 119/59 (79) 98 I&O Intake and Output 09/03/19 09/04/19 19:00 07:00 Intake Total 1510 ml 560 ml Output Total 1200 ml 1100 ml Balance 310 ml -540 ml Free Water 150 ml IV Total 700 ml 200 ml Tube Feeding 660 ml 360 ml Output Urine Total 1200 ml 1100 ml Dressing: dry Wound: clean Cardiovascular: RSR Respiratory: clear Abdomen: soft, non-tender, present bowel sounds Extremities: no edema, no tenderness, other Laboratory Tests Test 09/04/19 05:42 White Blood Count 6.9 K/UL (4.8-10.8) Red Blood Count 4.12 M/UL (4.70-6.10) L Hemoglobin 11.5 G/DL (14.2-18.0) L Hematocrit 35.9 % (42.0-52.0) L Mean Corpuscular Volume 87 FL (80-99) Mean Corpuscular Hemoglobin 28.0 PG (27.0-31.0) Mean Corpuscular Hemoglobin Concent 32.1 G/DL (32.0-36.0) Red Cell Distribution Width 14.8 % (11.6-14.8) Platelet Count 388 K/UL (150-450) Mean Platelet Volume 8.3 FL (6.5-10.1) Neutrophils (%) (Auto) 71.9 % (45.0-75.0) Lymphocytes (%) (Auto) 20.4 % (20.0-45.0) Monocytes (%) (Auto) 7.2 % (1.0-10.0) Eosinophils (%) (Auto) 0.1 % (0.0-3.0) Basophils (%) (Auto) 0.5 % (0.0-2.0) Sodium Level 132 MMOL/L (136-145) L Potassium Level 4.3 MMOL/L (3.5-5.1) Chloride Level 99 MMOL/L (98-107) Carbon Dioxide Level 31 MMOL/L (21-32) Anion Gap 2 mmol/L (5-15) L Blood Urea Nitrogen 14 mg/dL (7-18) Creatinine 1.0 MG/DL (0.55-1.30) Estimat Glomerular Filtration Rate mL/min (>60) Glucose Level 225 MG/DL (74-106) H Calcium Level 7.7 MG/DL (8.5-10.1) L Total Bilirubin 0.4 MG/DL (0.2-1.0) Aspartate Amino Transf (AST/SGOT) 59 U/L (15-37) H Alanine Aminotransferase (ALT/SGPT) 58 U/L (12-78) Alkaline Phosphatase 259 U/L (46-116) H Total Protein 7.1 G/DL (6.4-8.2) Albumin 1.8 G/DL (3.4-5.0) L Globulin 5.3 g/dL Albumin/Globulin Ratio 0.3 (1.0-2.7) L Amylase Level 339 U/L (25-115) H Lipase 1753 U/L (73-393) H Plan Problems: (1) Failure to thrive (2) Hip fracture, left Assessment & Plan: lucency noted on plain films no pain on exam repeat films ordered There is irregularity of the left greater trochanter indicative of a injury. This is probably an old fracture. However please correlate clinically. There is no fracture of the femoral neck or intertrochanteric region bilaterally. The bones are osteopenic. There is no malalignment of either hip identified. IMPRESSION: Irregularity of the left greater trochanter which may be indicative of a previous fracture. Doubt acute injury. However please correlate clinically. Generalized osteopenia (3) Severe protein-calorie malnutrition (4) Rhabdomyolysis (5) Acidosis (6) Adult Failure To Thrive Assessment & Plan: able to voice sounds and says hello and that he is doing okay. No nausea vomiting fever chills. Labs improved. Tolerating tube feeds. States that he used to eat on his own. He is able to move his upper extremities and left lower extremity but does have a deficit in his right lower extremity. swallow eval (7) Pressure Ulcer Of Sacral Region, Unstageable Assessment & Plan: 1) Dehydration Assessment & Plan: AMS, found down dehydration improved with IVF ICD Codes: E86.0 - Dehydration SNOMED: 86048321 (2) Failure to thrive SNOMED: 47918582 (3) Rhabdomyolysis Assessment & Plan: likely from being down IV fluids trending down - resolved will monitor ICD Codes: M62.82 - Rhabdomyolysis SNOMED: 489334726 (4) Blood blister Assessment & Plan: Patient presented with multiple DTI and Blood blisters Found down prior and noted on eval in ED at [place]. Seen upon admission to [facility] Patient with 8.8cm x 9cm sacral DTI with oozing on right sacral with resorbing blood blister. periwound intact and stable. Right scapula DTI 9.9cm x 5cm purple and indurated without drainage Left thoracic DTI 1cm x 3.5cm purple and indurated without drainage bilateral heels stable and soft with blanching no other skin concerns noted at this time Tx Plan: Monitor wounds for drainage. Will apply skin protectant and Optifoam dressings Daily and prn saturation Keep heels off loaded with pillows Air soft mattress Turn q2h Nutritional optimization Will follow with recs. ICD Codes: T14.8XXA - Other injury of unspecified body region, initial encounter SNOMED: 101348467 (5) Lactic acid acidosis Assessment & Plan: IV fluids resuscitation trend resolved ICD Codes: E87.2 - Acidosis SNOMED: 41627293 (6) Hip fracture, left Assessment & Plan: lucency noted on plain films no pain on exam repeat films ordered and noted ICD Codes: S72.002A - Fracture of unspecified part of neck of left femur, initial encounter for closed fracture SNOMED: 880382846 (7) Deep tissue injury ICD Codes: T14.8XXA - Other injury of unspecified body region, initial encounter SNOMED: 982139570 (8) Pancreatitis Assessment & Plan: lipase elevated MRI noted exam benign no complaints tolerating feeds given above cont with tube feeds. okay to advance to goal trend labs will monitor James Breen Sep 04, 2019 15:32
--- NOTE | 2019-09-04 15:32 | NUR ---
RD ASSESSMENT & RECOMMENDATIONS SEE CARE ACTIVITY FOR COMPLETE ASSESSMENT DAILY ESTIMATED NEEDS: Needs based on Wound, DM/ 57.6kg 25-30 kcals/kg 6280-1809 total kcals 1.25-1.5 g protein/kg 72-86 g total protein 25-30 mL/kg 2689-4444 total fluid mLs NUTRITION DIAGNOSIS: * Swallowing difficulty R/T dysphagia, AMS as evidenced by s/p NGT insertion, pt to be on nonoral feeding at this time. * Increased kcal/prot needs R/T wound healing as evidenced by pt admitted w/ DTI wounds at sacrum, R scapula, and L thoracic, refer to WC eval. CURRENT DIET:NPO CURRENT TF:Glucerna 1.2 @ 60ml/hr x 24 hrs PO DIET RECOMMENDATIONS: WHEN SAFE FOR ORAL DIET-> CCHO MED/ texture per ACTIVITIES SPECIALIST + Glucerna TID w/ meals ENTERAL NUTRITION RECOMMENDATIONS: Glucerna 1.2 @ 60ml/hr x 24 hrs to provide 1440ml, 1728kcal, 86g prot, 1159ml free water * Maintain current TF @ goal * HOB over 30 degrees * Without IVF, rec H20 flush of 150ml q 6hrs ADDITIONAL RECOMMENDATIONS: * Calibrated bedscale wt for accurate CBW * Monitor lytes daily w/ TF, replete as needed * DC D5 IVF: low Na, elev BGs (POC glu 194-290), TF @ goal * Wound healing: Add Vit C 250mg QD+ ZnSO4 220mg QD x 10 days : Terrance 1pkt BID * Monitor for possible oral diet initiation- pending MBSS .
[2019-09-04 16:00] VITALS: BP 113/58
--- NOTE | 2019-09-04 19:30 | NUR ---
NURSE NOTES: Pt received in bed awake, NG tube in place, no c/o pain or signs of distress, head of bead elevated, bilateral restraints in place.
--- NOTE | 2019-09-04 19:30 | NUR ---
HAND-OFF: Report given to JOHNNY Orourke.
[2019-09-04 20:00] VITALS: BP 119/63
--- NOTE | 2019-09-04 22:44 | Internal Med Progress Note ---
Subjective Physician Name Cirilo Rome Attending Physician Cirilo Rome MD Current Medications Medications (Trade) Dose Ordered Sig/Debi Route PRN Reason Start Time Stop Time Status Last Admin Dose Admin Acetaminophen (Tylenol) 650 mg Q4H PRN RECTAL Prn Headache/Temp > 101 08/27/19 12:00 09/26/19 11:59 08/29/19 00:34 Acetaminophen (Tylenol) 650 mg Q6H PRN NG Mild Pain/Temp > 100.5 09/03/19 10:30 09/26/19 01:59 Amlodipine Besylate (Norvasc) 10 mg DAILY NG 09/03/19 11:00 10/03/19 10:59 09/04/19 09:52 Aspirin (ASA) 81 mg DAILY NG 09/03/19 11:00 09/26/19 08:59 09/04/19 09:51 Barium Sulfate (Varibar Honey) 250 ml NOW PRN MC RAD 09/03/19 13:00 09/06/19 12:45 Barium Sulfate (Varibar [place]) 240 ml NOW PRN MC RAD 09/03/19 13:00 09/06/19 12:45 Barium Sulfate (Varibar Pudding) 230 ml NOW PRN MC RAD 09/03/19 13:00 09/06/19 12:45 Benazepril HCl (Lotensin) 10 mg DAILY NG 09/03/19 11:00 10/03/19 10:59 09/04/19 09:52 Dextrose (Dextrose 50%) 25 ml Q30M PRN IV Hypoglycemia 08/27/19 15:15 09/26/19 15:14 Dextrose (Dextrose 50%) 50 ml Q30M PRN IV Hypoglycemia 08/27/19 15:15 09/26/19 15:14 Heparin Sodium (Porcine) (Heparin 5000 units/ml) 5,000 units EVERY 8 HOURS SUBQ 08/27/19 06:00 09/26/19 05:59 09/04/19 21:43 Insulin Aspart (NovoLOG) BEFORE MEALS AND HS SUBQ 08/29/19 11:30 09/28/19 11:29 09/04/19 20:42 Insulin Detemir (Levemir) 6 units DAILY SUBQ 08/30/19 12:00 09/29/19 11:59 09/04/19 09:54 Allergies: Coded Allergies: No Known Allergies (Unverified , 08/27/19) Subjective Awake, alert, responsive, no acute distress, tolerated tube feeding. Objective Last Vital Signs Date Time Temp Pulse Resp B/P (MAP) Pulse Ox O2 Delivery O2 Flow Rate FiO2 09/04/19 21:00 Room Air 09/04/19 20:00 99.5 113 17 119/63 (81) 98 09/02/19 22:12 21 Laboratory Tests Test 09/04/19 05:42 White Blood Count 6.9 K/UL (4.8-10.8) Red Blood Count 4.12 M/UL (4.70-6.10) L Hemoglobin 11.5 G/DL (14.2-18.0) L Hematocrit 35.9 % (42.0-52.0) L Mean Corpuscular Volume 87 FL (80-99) Mean Corpuscular Hemoglobin 28.0 PG (27.0-31.0) Mean Corpuscular Hemoglobin Concent 32.1 G/DL (32.0-36.0) Red Cell Distribution Width 14.8 % (11.6-14.8) Platelet Count 388 K/UL (150-450) Mean Platelet Volume 8.3 FL (6.5-10.1) Neutrophils (%) (Auto) 71.9 % (45.0-75.0) Lymphocytes (%) (Auto) 20.4 % (20.0-45.0) Monocytes (%) (Auto) 7.2 % (1.0-10.0) Eosinophils (%) (Auto) 0.1 % (0.0-3.0) Basophils (%) (Auto) 0.5 % (0.0-2.0) Sodium Level 132 MMOL/L (136-145) L Potassium Level 4.3 MMOL/L (3.5-5.1) Chloride Level 99 MMOL/L (98-107) Carbon Dioxide Level 31 MMOL/L (21-32) Anion Gap 2 mmol/L (5-15) L Blood Urea Nitrogen 14 mg/dL (7-18) Creatinine 1.0 MG/DL (0.55-1.30) Estimat Glomerular Filtration Rate mL/min (>60) Glucose Level 225 MG/DL (74-106) H Calcium Level 7.7 MG/DL (8.5-10.1) L Total Bilirubin 0.4 MG/DL (0.2-1.0) Aspartate Amino Transf (AST/SGOT) 59 U/L (15-37) H Alanine Aminotransferase (ALT/SGPT) 58 U/L (12-78) Alkaline Phosphatase 259 U/L (46-116) H Total Protein 7.1 G/DL (6.4-8.2) Albumin 1.8 G/DL (3.4-5.0) L Globulin 5.3 g/dL Albumin/Globulin Ratio 0.3 (1.0-2.7) L Amylase Level 339 U/L (25-115) H Lipase 1753 U/L (73-393) H Intake and Output 09/03/19 09/04/19 19:00 07:00 Intake Total 1510 ml 560 ml Output Total 1200 ml 1100 ml Balance 310 ml -540 ml Free Water 150 ml IV Total 700 ml 200 ml Tube Feeding 660 ml 360 ml Output Urine Total 1200 ml 1100 ml Objective General: No acute distress, awake and responsive. HEENT: NCAT, sclera anicteric, PERRL, EOMI, NG Tube. Neck: Supple, no significant jugular venous distention, Lungs: fair inspiratory effort, decreased air at the bases, no Wheeze or Rales. Heart: Regular rate and rhythm, normal S1/S2, no murmurs Abdomen: soft, nontender, nondistended. Normoactive bowel sounds. Extremities: No Cyanosis , clubbing or edema. Neuro: A&O x 2, able to move upper extremities, Lower extremities weakness. Skin: warm, blood blisters, sacral ulcer. Assessment/Plan Assessment/Plan 1. Altered mental status likely secondary to toxic metabolic encephalopathy. 2. Fracture of the left femur greater trochanter. 3. Rhabdomyolysis. 4. Dehydration. 5. Diabetes type 2. 6. Hypertension. 7. Hypercholesterolemia. 8. Hyponatremia. 9. dehydration 10. deep tissue injury. 11. Severe protein calorie malnutrition 12. Spiking fever possible urinary tract infection Plan: Tolerated tube feeding at 60 cc/hr. DVT prophylaxis: Heparin subcu. CODE STATUS: Full code. Abx: off Follow-up with the laboratory in the morning. swallow study on Saturday [facility] Cirilo Rome MD Sep 04, 2019 22:44
[2019-09-05] VITALS: BP 123/64
[2019-09-05 04:00] VITALS: BP 116/60
[2019-09-05] MEDS: Heparin 5000 units/ml inj SUBQ SCH ×3 (05:49→21:03)
[2019-09-05] MEDS: NovoLOG Insulin Flexpen SUBQ SCH ×4 (05:50→20:50)
--- NOTE | 2019-09-05 06:29 | General Progress Note ---
Assessment/Plan Status: stable, unchanged Assessment/Plan: Assessment/Plan Problems: (1) Pancreatitis ICD Codes: K85.90 - Acute pancreatitis without necrosis or infection, unspecified SNOMED: 85402037 (2) Acute encephalopathy ICD Codes: G93.40 - Encephalopathy, unspecified SNOMED: 15508081, 084379110 (3) Failure to thrive SNOMED: 65707719 (4) Severe protein-calorie malnutrition ICD Codes: E43 - Unspecified severe protein-calorie malnutrition SNOMED: 514797490, 918537496, 935494090 Status: stable, unchanged Assessment/Plan US reviewed, negative MRCP negative elevated lipase NGTFs increase free water flushes for hypernatremia IV hydration repeat lipase levels pending swallow eval>> failed on Saturday will consider PEG if necessary>>> looking for social work instructor Subjective ROS Limited/Unobtainable: No Allergies: Coded Allergies: No Known Allergies (Unverified , 08/27/19) Objective Last 24 Hour Vital Signs Date Time Temp Pulse Resp B/P (MAP) Pulse Ox O2 Delivery O2 Flow Rate FiO2 09/05/19 04:00 98.1 96 19 116/60 (78) 98 09/05/19 00:00 98.2 103 18 123/64 (83) 96 09/04/19 21:00 Room Air 09/04/19 20:00 99.5 113 17 119/63 (81) 98 09/04/19 16:00 99.4 97 18 113/58 (76) 95 09/04/19 12:00 99.0 98 18 116/67 (83) 94 09/04/19 09:52 122/67 09/04/19 09:52 106 122/67 09/04/19 09:00 Room Air 09/04/19 08:00 97.9 106 16 122/67 (85) 95 Intake and Output 09/04/19 09/05/19 18:59 06:59 Output Total 1100 ml Balance -1100 ml Output Urine Total 1100 ml Height (Feet): 5 Height (Inches): 8.00 Weight (Pounds): 144 General Appearance: alert EENT: normal ENT inspection Neck: supple Cardiovascular: normal rate Respiratory/Chest: lungs clear Abdomen: normal bowel sounds, non tender, soft Extremities: non-tender Alek Simth MD Sep 05, 2019 06:29
--- NOTE | 2019-09-05 07:32 | NUR ---
HAND-OFF: Report given to JOHNNY Raymundo.
--- NOTE | 2019-09-05 07:38 | NUR ---
NURSE NOTES: Received report from JOHNNY Orourke. Patient A&Ox1 with spontaneous eye movement, able to speak one word and wave to selina TURNER. On room air, no signs of distress or labored breathing. IV intact, patent, and saline locked. NG-tube in right nare, infusing feeding. Adams intact, patent, and draining urine. Bilateral soft wrist restraints on. Bed in lowest position. Will continue with plan of care.
[2019-09-05 08:00] VITALS: BP 129/79
[2019-09-05 08:49] LABS: ALANINE AMINOTRANSFERASE 56 U/L (12-78); ALBUMIN 1.9 G/DL (3.4-5.0); ALBUMIN/GLOBULIN RATIO 0.4 (1.0-2.7); ALKALINE PHOSPHATASE 297 U/L (46-116); AMYLASE 309 U/L (25-115); ANION GAP 10 mmol/L (5-15); ASPARTATE AMINO TRANSFERASE 52 U/L (15-37); BILIRUBIN,TOTAL 0.4 MG/DL (0.2-1.0); BLOOD UREA NITROGEN 19 mg/dL (7-18); CALCIUM 8.1 MG/DL (8.5-10.1); CARBON DIOXIDE 28 MMOL/L (21-32); CHLORIDE 101 MMOL/L (98-107); CREATININE 0.9 MG/DL (0.55-1.30); POTASSIUM 4.8 MMOL/L (3.5-5.1); SODIUM 138 MMOL/L (136-145)
[2019-09-05] MEDS: Benazepril 10mg tab NG SCH (09:00)
[2019-09-05] MEDS: Aspirin Baby 81mg NG SCH (09:01)
[2019-09-05] MEDS: Levemir Flexpen SUBQ SCH (09:03)
--- NOTE | 2019-09-05 10:04 | NUR ---
NURSE NOTES: Updated process plans to include Decubitus/Pressure Ulcer care plan. However patient was admitted with pressure ulcer. Charge nurse aware.
[2019-09-05] MEDS ORDERED: Morphine Sulfate 2mg/ml Inj(IV/IM USE ONLY) IVP PRN (11:45)
[2019-09-05 12:00] VITALS: BP 115/69
--- NOTE | 2019-09-05 13:29 | Surgery Progress Note ---
Surgery Progress Note Subjective Additional Comments Patient seen and examined bedside. No acute events. Patient's awake alert responsive. He is more cognitively intact today and continues to improve. No nausea vomiting fever chills. NG tube in place tolerating tube feeds. Patient was turned with nursing staff and wound evaluated. His sacral wound has developed into a more unstageable wound as well as an area of stage III decubitus which is open. Objective Last 24 Hour Vital Signs Date Time Temp Pulse Resp B/P (MAP) Pulse Ox O2 Delivery O2 Flow Rate FiO2 09/05/19 09:01 98 129/79 09/05/19 09:00 Room Air 09/05/19 09:00 129/79 09/05/19 08:00 98.8 98 20 129/79 (96) 94 09/05/19 04:00 98.1 96 19 116/60 (78) 98 09/05/19 00:00 98.2 103 18 123/64 (83) 96 09/04/19 21:00 Room Air 09/04/19 20:00 99.5 113 17 119/63 (81) 98 09/04/19 16:00 99.4 97 18 113/58 (76) 95 I&O Intake and Output 09/04/19 09/05/19 19:00 07:00 Intake Total 60 ml 1080 ml Output Total 1100 ml 750 ml Balance -1040 ml 330 ml Free Water 300 ml Tube Feeding 60 ml 780 ml Output Urine Total 1100 ml 750 ml Dressing: saturated Wound: other Drains: other Cardiovascular: RSR Respiratory: clear Abdomen: soft, non-tender, present bowel sounds Extremities: no cyanosis, other Laboratory Tests Test 09/05/19 07:24 Sodium Level 138 MMOL/L (136-145) Potassium Level 4.8 MMOL/L (3.5-5.1) Chloride Level 101 MMOL/L (98-107) Carbon Dioxide Level 28 MMOL/L (21-32) Anion Gap 10 mmol/L (5-15) Blood Urea Nitrogen 19 mg/dL (7-18) H Creatinine 0.9 MG/DL (0.55-1.30) Estimat Glomerular Filtration Rate mL/min (>60) Glucose Level 213 MG/DL (74-106) H Calcium Level 8.1 MG/DL (8.5-10.1) L Total Bilirubin 0.4 MG/DL (0.2-1.0) Aspartate Amino Transf (AST/SGOT) 52 U/L (15-37) H Alanine Aminotransferase (ALT/SGPT) 56 U/L (12-78) Alkaline Phosphatase 297 U/L (46-116) H Total Protein 6.5 G/DL (6.4-8.2) Albumin 1.9 G/DL (3.4-5.0) L Globulin 4.6 g/dL Albumin/Globulin Ratio 0.4 (1.0-2.7) L Amylase Level 309 U/L (25-115) H Lipase 1930 U/L (73-393) H Plan Problems: (1) Failure to thrive (2) Hip fracture, left Assessment & Plan: lucency noted on plain films no pain on exam repeat films ordered There is irregularity of the left greater trochanter indicative of a injury. This is probably an old fracture. However please correlate clinically. There is no fracture of the femoral neck or intertrochanteric region bilaterally. The bones are osteopenic. There is no malalignment of either hip identified. IMPRESSION: Irregularity of the left greater trochanter which may be indicative of a previous fracture. Doubt acute injury. However please correlate clinically. Generalized osteopenia (3) Severe protein-calorie malnutrition (4) Rhabdomyolysis (5) Acidosis (6) Adult Failure To Thrive Assessment & Plan: able to voice sounds and says hello and that he is doing okay. No nausea vomiting fever chills. Labs improved. Tolerating tube feeds. States that he used to eat on his own. He is able to move his upper extremities and left lower extremity but does have a deficit in his right lower extremity. swallow eval noted (7) Pressure Ulcer Of Sacral Region, Unstageable Assessment & Plan: 1) Dehydration Assessment & Plan: AMS, found down dehydration improved with IVF ICD Codes: E86.0 - Dehydration SNOMED: 95947066 (2) Failure to thrive SNOMED: 12719375 (3) Rhabdomyolysis Assessment & Plan: likely from being down IV fluids trending down - resolved will monitor ICD Codes: M62.82 - Rhabdomyolysis SNOMED: 245371972 (4) Blood blister Assessment & Plan: Patient presented with multiple DTI and Blood blisters Found down prior and noted on eval in ED at [facility]. Seen upon admission to [facility] Patient with 8.8cm x 9cm sacral DTI with oozing on right sacral with resorbing blood blister. periwound intact and stable. Right scapula DTI 9.9cm x 5cm purple and indurated without drainage Left thoracic DTI 1cm x 3.5cm purple and indurated without drainage bilateral heels stable and soft with blanching no other skin concerns noted at this time see below as changed Tx Plan: Monitor wounds for drainage. Will apply skin protectant and Optifoam dressings Daily and prn saturation Keep heels off loaded with pillows Air soft mattress Turn q2h Nutritional optimization Will follow with recs. ICD Codes: T14.8XXA - Other injury of unspecified body region, initial encounter SNOMED: 883912021 (5) Lactic acid acidosis Assessment & Plan: IV fluids resuscitation trend resolved ICD Codes: E87.2 - Acidosis SNOMED: 80421823 (6) Hip fracture, left Assessment & Plan: lucency noted on plain films no pain on exam repeat films ordered and noted ICD Codes: S72.002A - Fracture of unspecified part of neck of left femur, initial encounter for closed fracture SNOMED: 294358211 (7) Deep tissue injury ICD Codes: T14.8XXA - Other injury of unspecified body region, initial encounter SNOMED: 104501662 (8) Pancreatitis Assessment & Plan: lipase elevated MRI noted exam benign no complaints tolerating feeds given above cont with tube feeds. okay to advance to goal trend labs will monitor (9) Unstageable decubitus ulcer Assessment & Plan: Patient presented with multiple deep tissue injuries from being down for unknown period of time. Blood blisters were forming around some of these wounds. On ablation today bedside patient's sacral wound was noted blood pressure had resolved and underlying patient has now a unstageable sacral decubitus ulcer with the coccygeal area having a stage III open wound approximately 2 cm x 1 cm x 0.4 mm deep. Periwound is intact. Eschar noted and stable. No fluctuance. No significant tenderness on palpation. No drainage. No foul order. The area and complete is approximately 8 cm wide by 5 cm long Treatment plan changed. Recommend washing sacral decubitus ulcer daily with normal saline. Apply Thera honey impregnated gauze followed by up to foam dressing. Continue with standard decubitus precautions. Additional Comments Furthermore patient is a more awake alert and responsive. Cognitively intact and improving. Currently NG tube in place. Pancreatitis is resolving. Agree with continuing with tube feeds during pancreatitis as clinically does not have pink otitis and is only chemical nature on laboratory data. Okay and safe to resume and continue with tube feeds. Speech swallow eval noted and patient is still cognitively intact but question if able to swallow and follow directions appropriately. Will reevaluate on Saturday with repeat speech and swallow. May need video. If not aspirating and safe would recommend starting diet prior to placement of G-tube. James Breen Sep 05, 2019 13:29
--- NOTE | 2019-09-05 13:50 | Pulmonology Progress Note ---
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 (3) Acute encephalopathy (4) Severe protein-calorie malnutrition (5) History of hypertension (6) Diabetes mellitus Assessment/Plan more alert NG tube is in, tolerating feeding, might need antipsychotic to keep him calm social worker assistant note reviewed, pt doesn't have anybody to make any decision for him mental status better will need Gtube and usp placement Subjective ROS Limited/Unobtainable: No Constitutional: Reports: no symptoms HEENT: Repors: no symptoms Allergies: Coded Allergies: No Known Allergies (Unverified , 08/27/19) Objective Last 24 Hour Vital Signs Date Time Temp Pulse Resp B/P (MAP) Pulse Ox O2 Delivery O2 Flow Rate FiO2 09/05/19 09:01 98 129/79 09/05/19 09:00 Room Air 09/05/19 09:00 129/79 09/05/19 08:00 98.8 98 20 129/79 (96) 94 09/05/19 04:00 98.1 96 19 116/60 (78) 98 09/05/19 00:00 98.2 103 18 123/64 (83) 96 09/04/19 21:00 Room Air 09/04/19 20:00 99.5 113 17 119/63 (81) 98 09/04/19 16:00 99.4 97 18 113/58 (76) 95 Intake and Output 09/04/19 09/05/19 19:00 07:00 Intake Total 60 ml 1080 ml Output Total 1100 ml 750 ml Balance -1040 ml 330 ml Free Water 300 ml Tube Feeding 60 ml 780 ml Output Urine Total 1100 ml 750 ml Objective still has ng tube General Appearance: cachetic HEENT: normocephalic, atraumatic Respiratory/Chest: chest wall non-tender, normal breath sounds Cardiovascular: normal rate, regular rhythm Abdomen: normal bowel sounds, soft, non tender Genitourinary: normal external genitalia Extremities: no cyanosis Skin: no rash, no lesions Laboratory Tests 09/05/19 07:24: Sodium Level 138, Potassium Level 4.8, Chloride Level 101, Carbon Dioxide Level 28, Anion Gap 10, Blood Urea Nitrogen 19H, Creatinine 0.9, Estimat Glomerular Filtration Rate , Glucose Level 213H, Calcium Level 8.1L, Total Bilirubin 0.4, Aspartate Amino Transf (AST/SGOT) 52H, Alanine Aminotransferase (ALT/SGPT) 56, Alkaline Phosphatase 297H, Total Protein 6.5, Albumin 1.9L, Globulin 4.6, Albumin/Globulin Ratio 0.4L, Amylase Level 309H, Lipase 1930H Current Medications Medications (Trade) Dose Ordered Sig/Debi Route PRN Reason Start Time Stop Time Status Last Admin Dose Admin Acetaminophen (Tylenol) 650 mg Q4H PRN RECTAL Prn Headache/Temp > 101 08/27/19 12:00 09/26/19 11:59 08/29/19 00:34 Acetaminophen (Tylenol) 650 mg Q6H PRN NG Mild Pain/Temp > 100.5 09/03/19 10:30 09/26/19 01:59 Amlodipine Besylate (Norvasc) 10 mg DAILY NG 09/03/19 11:00 10/03/19 10:59 09/05/19 09:01 Aspirin (ASA) 81 mg DAILY NG 09/03/19 11:00 09/26/19 08:59 09/05/19 09:01 Barium Sulfate (Varibar Honey) 250 ml NOW PRN MC RAD 09/03/19 13:00 09/06/19 12:45 Barium Sulfate (Varibar [place]) 240 ml NOW PRN MC RAD 09/03/19 13:00 09/06/19 12:45 Barium Sulfate (Varibar Pudding) 230 ml NOW PRN MC RAD 09/03/19 13:00 09/06/19 12:45 Benazepril HCl (Lotensin) 10 mg DAILY NG 09/03/19 11:00 10/03/19 10:59 09/05/19 09:00 Dextrose (Dextrose 50%) 25 ml Q30M PRN IV Hypoglycemia 08/27/19 15:15 09/26/19 15:14 Dextrose (Dextrose 50%) 50 ml Q30M PRN IV Hypoglycemia 08/27/19 15:15 09/26/19 15:14 Heparin Sodium (Porcine) (Heparin 5000 units/ml) 5,000 units EVERY 8 HOURS SUBQ 08/27/19 06:00 09/26/19 05:59 09/05/19 05:49 Insulin Aspart (NovoLOG) BEFORE MEALS AND HS SUBQ 08/29/19 11:30 09/28/19 11:29 09/05/19 12:33 Insulin Detemir (Levemir) 6 units DAILY SUBQ 08/30/19 12:00 09/29/19 11:59 09/05/19 09:03 Morphine Sulfate (Morphine Sulfate) 2 mg Q4H PRN IVP For Pain 09/05/19 11:45 09/12/19 11:44 Latanya Mckeon MD Sep 05, 2019 13:50
--- NOTE | 2019-09-05 14:09 | Internal Med Progress Note ---
Subjective Physician Name Cirilo Rome Attending Physician Cirilo Rome MD Current Medications Medications (Trade) Dose Ordered Sig/Debi Route PRN Reason Start Time Stop Time Status Last Admin Dose Admin Acetaminophen (Tylenol) 650 mg Q4H PRN RECTAL Prn Headache/Temp > 101 08/27/19 12:00 09/26/19 11:59 08/29/19 00:34 Acetaminophen (Tylenol) 650 mg Q6H PRN NG Mild Pain/Temp > 100.5 09/03/19 10:30 09/26/19 01:59 Amlodipine Besylate (Norvasc) 10 mg DAILY NG 09/03/19 11:00 10/03/19 10:59 09/05/19 09:01 Aspirin (ASA) 81 mg DAILY NG 09/03/19 11:00 09/26/19 08:59 09/05/19 09:01 Barium Sulfate (Varibar Honey) 250 ml NOW PRN MC RAD 09/03/19 13:00 09/06/19 12:45 Barium Sulfate (Varibar [place]) 240 ml NOW PRN MC RAD 09/03/19 13:00 09/06/19 12:45 Barium Sulfate (Varibar Pudding) 230 ml NOW PRN MC RAD 09/03/19 13:00 09/06/19 12:45 Benazepril HCl (Lotensin) 10 mg DAILY NG 09/03/19 11:00 10/03/19 10:59 09/05/19 09:00 Dextrose (Dextrose 50%) 25 ml Q30M PRN IV Hypoglycemia 08/27/19 15:15 09/26/19 15:14 Dextrose (Dextrose 50%) 50 ml Q30M PRN IV Hypoglycemia 08/27/19 15:15 09/26/19 15:14 Heparin Sodium (Porcine) (Heparin 5000 units/ml) 5,000 units EVERY 8 HOURS SUBQ 08/27/19 06:00 09/26/19 05:59 09/05/19 05:49 Insulin Aspart (NovoLOG) BEFORE MEALS AND HS SUBQ 08/29/19 11:30 09/28/19 11:29 09/05/19 12:33 Insulin Detemir (Levemir) 6 units DAILY SUBQ 08/30/19 12:00 09/29/19 11:59 09/05/19 09:03 Morphine Sulfate (Morphine Sulfate) 2 mg Q4H PRN IVP For Pain 09/05/19 11:45 09/12/19 11:44 Allergies: Coded Allergies: No Known Allergies (Unverified , 08/27/19) Subjective Awake, alert, responsive, no acute distress, tolerated tube feeding. Objective Last Vital Signs Date Time Temp Pulse Resp B/P (MAP) Pulse Ox O2 Delivery O2 Flow Rate FiO2 09/05/19 12:00 98.0 95 20 115/69 (84) 96 09/05/19 09:00 Room Air 09/02/19 22:12 21 Laboratory Tests Test 09/05/19 07:24 Sodium Level 138 MMOL/L (136-145) Potassium Level 4.8 MMOL/L (3.5-5.1) Chloride Level 101 MMOL/L (98-107) Carbon Dioxide Level 28 MMOL/L (21-32) Anion Gap 10 mmol/L (5-15) Blood Urea Nitrogen 19 mg/dL (7-18) H Creatinine 0.9 MG/DL (0.55-1.30) Estimat Glomerular Filtration Rate mL/min (>60) Glucose Level 213 MG/DL (74-106) H Calcium Level 8.1 MG/DL (8.5-10.1) L Total Bilirubin 0.4 MG/DL (0.2-1.0) Aspartate Amino Transf (AST/SGOT) 52 U/L (15-37) H Alanine Aminotransferase (ALT/SGPT) 56 U/L (12-78) Alkaline Phosphatase 297 U/L (46-116) H Total Protein 6.5 G/DL (6.4-8.2) Albumin 1.9 G/DL (3.4-5.0) L Globulin 4.6 g/dL Albumin/Globulin Ratio 0.4 (1.0-2.7) L Amylase Level 309 U/L (25-115) H Lipase 1930 U/L (73-393) H Intake and Output 09/04/19 09/05/19 19:00 07:00 Intake Total 60 ml 1080 ml Output Total 1100 ml 750 ml Balance -1040 ml 330 ml Free Water 300 ml Tube Feeding 60 ml 780 ml Output Urine Total 1100 ml 750 ml Objective General: No acute distress, awake and responsive. HEENT: NCAT, sclera anicteric, PERRL, EOMI, NG Tube. Neck: Supple, no significant jugular venous distention, Lungs: fair inspiratory effort, decreased air at the bases, no Wheeze or Rales. Heart: Regular rate and rhythm, normal S1/S2, no murmurs Abdomen: soft, nontender, nondistended. Normoactive bowel sounds. Decubi Ulcer. Extremities: No Cyanosis , clubbing or edema. Neuro: A&O x 2, able to move upper extremities, Lower extremities weakness. Skin: warm, blood blisters, sacral ulcer. Assessment/Plan Assessment/Plan 1. Altered mental status likely secondary to toxic metabolic encephalopathy. 2. Fracture of the left femur greater trochanter. 3. Rhabdomyolysis. 4. Dehydration. 5. Diabetes type 2. 6. Hypertension. 7. Hypercholesterolemia. 8. Hyponatremia. 9. dehydration 10. deep tissue injury. 11. Severe protein calorie malnutrition 12. Spiking fever possible urinary tract infection Plan: Tolerated tube feeding at 60 cc/hr. DVT prophylaxis: Heparin subcu. CODE STATUS: Full code. Abx: off Follow-up with the laboratory in the morning. swallow study on Saturday Dc IVF Monitor wounds for drainage. Apply skin protectant and Optifoam dressings Daily and prn saturation Cirilo Rome MD Sep 05, 2019 14:09
[2019-09-05 16:00] VITALS: BP 138/80
--- NOTE | 2019-09-05 19:10 | NUR ---
HAND-OFF: Report given to JOHNNY Orourke.
--- NOTE | 2019-09-05 19:20 | NUR ---
NURSE NOTES: Pt received in bed with guests at bedside, no signs of distress, g tube feeding running mckinney catheter with yellow urine, new orders for wound care, will follow, will continue to monitor.
[2019-09-05 20:00] VITALS: BP 118/62
[2019-09-06] VITALS: BP 114/56
[2019-09-06 04:00] VITALS: BP 104/71
[2019-09-06] MEDS: Heparin 5000 units/ml inj SUBQ SCH ×3 (05:31→21:57)
[2019-09-06] MEDS: NovoLOG Insulin Flexpen SUBQ SCH ×4 (05:34→20:12)
[2019-09-06 07:14] LABS: BASOPHILS % (AUTO) 0.6 % (0.0-2.0); EOSINOPHILS % (AUTO) 0.1 % (0.0-3.0); HEMATOCRIT 34.7 % (42.0-52.0); HEMOGLOBIN 11.3 G/DL (14.2-18.0); MEAN CORPUSCULAR VOLUME 87 FL (80-99); NEUTROPHILS % (AUTO) 75.3 % (45.0-75.0); PLATELET COUNT 535 K/UL (150-450); RED BLOOD COUNT 4.01 M/UL (4.70-6.10); RED CELL DISTRIBUTION WIDTH 15.1 % (11.6-14.8); WHITE BLOOD COUNT 9.9 K/UL (4.8-10.8)
--- NOTE | 2019-09-06 07:16 | NUR ---
HAND-OFF: Report given to JOHNNY ALATORRE.
--- NOTE | 2019-09-06 07:22 | NUR ---
NURSE NOTES: Received report from JOHNNY Orourke. Patient A&Ox1 with spontaneous eye movement. Able to acknowledge RN's greeting with sounds and head nod. On room air, no signs of distress or labored breathing. IV intact, patent, and saline locked. HOB is 30 degrees. NG tube in right nare, infusing feeding. Adams intact, patent, and draining urine. Bilateral soft soft wrist restraints on. Bed in lowest position. Side rails up x3. Will continue with plan of care.
[2019-09-06 07:56] LABS: ALANINE AMINOTRANSFERASE 51 U/L (12-78); ALBUMIN 1.9 G/DL (3.4-5.0); ALBUMIN/GLOBULIN RATIO 0.3 (1.0-2.7); ALKALINE PHOSPHATASE 272 U/L (46-116); AMYLASE 258 U/L (25-115); ANION GAP 1 mmol/L (5-15); ASPARTATE AMINO TRANSFERASE 45 U/L (15-37); BILIRUBIN,TOTAL 0.4 MG/DL (0.2-1.0); BLOOD UREA NITROGEN 21 mg/dL (7-18); CALCIUM 8.7 MG/DL (8.5-10.1); CARBON DIOXIDE 32 MMOL/L (21-32); CHLORIDE 101 MMOL/L (98-107); POTASSIUM 4.5 MMOL/L (3.5-5.1); SODIUM 134 MMOL/L (136-145)
[2019-09-06 08:00] VITALS: BP_SYST 107; BP_SYST 137; BP_DIAS 66; BP_DIAS 70
[2019-09-06] MEDS: Levemir Flexpen SUBQ SCH (08:52)
--- NOTE | 2019-09-06 08:52 | General Progress Note ---
Assessment/Plan Status: stable, unchanged Assessment/Plan: Assessment/Plan Problems: (1) Pancreatitis ICD Codes: K85.90 - Acute pancreatitis without necrosis or infection, unspecified SNOMED: 06094042 (2) Acute encephalopathy ICD Codes: G93.40 - Encephalopathy, unspecified SNOMED: 67015942, 706605163 (3) Failure to thrive SNOMED: 30552040 (4) Severe protein-calorie malnutrition ICD Codes: E43 - Unspecified severe protein-calorie malnutrition SNOMED: 605620167, 497622910, 584095447 Status: stable, unchanged Assessment/Plan US reviewed, negative MRCP negative elevated lipase NGTFs increase free water flushes for hypernatremia IV hydration repeat lipase levels pending swallow eval>> failed on Saturday will consider PEG if necessary>>> looking for social insurance analyst lipid panel CT of abd and pelvic Bioethic consult Subjective Allergies: Coded Allergies: No Known Allergies (Unverified , 08/27/19) Objective Last 24 Hour Vital Signs Date Time Temp Pulse Resp B/P (MAP) Pulse Ox O2 Delivery O2 Flow Rate FiO2 09/06/19 08:00 97.5 88 18 107/70 (82) 95 09/06/19 04:00 99.5 101 20 104/71 (82) 96 09/06/19 00:00 98.8 107 20 114/56 (75) 94 09/05/19 21:00 Room Air 09/05/19 20:00 99.1 104 20 118/62 (80) 97 09/05/19 16:00 97.9 77 18 138/80 (99) 98 09/05/19 12:00 98.0 95 20 115/69 (84) 96 09/05/19 09:01 98 129/79 09/05/19 09:00 Room Air 09/05/19 09:00 129/79 Intake and Output 09/05/19 09/06/19 18:59 06:59 Intake Total 330 ml Output Total 800 ml 1100 ml Balance -470 ml -1100 ml Free Water 150 ml Tube Feeding 180 ml Output Urine Total 800 ml 1100 ml Laboratory Tests 09/06/19 06:40: White Blood Count 9.9, Red Blood Count 4.01L, Hemoglobin 11.3L, Hematocrit 34.7L , Mean Corpuscular Volume 87, Mean Corpuscular Hemoglobin 28.2, Mean Corpuscular Hemoglobin Concent 32.6, Red Cell Distribution Width 15.1H, Platelet Count 535H, Mean Platelet Volume 7.8, Neutrophils (%) (Auto) 75.3H, Lymphocytes (%) (Auto) 18.0L, Monocytes (%) (Auto) 6.0, Eosinophils (%) (Auto) 0.1, Basophils (%) (Auto) 0.6, Sodium Level 134L, Potassium Level 4.5, Chloride Level 101, Carbon Dioxide Level 32, Anion Gap 1L, Blood Urea Nitrogen 21H, Creatinine 1.0, Estimat Glomerular Filtration Rate , Glucose Level 286H, Calcium Level 8.7, Total Bilirubin 0.4, Aspartate Amino Transf (AST/SGOT) 45H, Alanine Aminotransferase (ALT/SGPT) 51, Alkaline Phosphatase 272H, Total Protein 7.5, Albumin 1.9L, Globulin 5.6, Albumin/Globulin Ratio 0.3L, Amylase Level 258H, Lipase 1472H Height (Feet): 5 Height (Inches): 8.00 Weight (Pounds): 144 General Appearance: no apparent distress EENT: normal ENT inspection Neck: supple Cardiovascular: normal rate Respiratory/Chest: decreased breath sounds Abdomen: normal bowel sounds, non tender, soft Extremities: non-tender Alek Smith MD Sep 06, 2019 08:52
[2019-09-06] MEDS: Aspirin Baby 81mg NG SCH (08:56)
[2019-09-06] MEDS: Benazepril 10mg tab NG SCH (08:56)
[2019-09-06] MEDS ORDERED: Omnipaque-300 100ml vial INJ PRN (09:00)
[2019-09-06 12:00] VITALS: BP 114/55
--- NOTE | 2019-09-06 12:30 | Surgery Progress Note ---
Surgery Progress Note Subjective Additional Comments doing better can have a conversation now tolerating tube feeds verbal no complaints plan for repeat swallow eval with improved cognition arnaldo/lip down Objective Last 24 Hour Vital Signs Date Time Temp Pulse Resp B/P (MAP) Pulse Ox O2 Delivery O2 Flow Rate FiO2 09/06/19 09:00 Room Air 09/06/19 08:56 137/66 09/06/19 08:56 99 137/66 09/06/19 08:00 98.7 99 20 137/66 (89) 97 09/06/19 04:00 99.5 101 20 104/71 (82) 96 09/06/19 00:00 98.8 107 20 114/56 (75) 94 09/05/19 21:00 Room Air 09/05/19 20:00 99.1 104 20 118/62 (80) 97 09/05/19 16:00 97.9 77 18 138/80 (99) 98 I&O Intake and Output 09/05/19 09/06/19 18:59 06:59 Intake Total 330 ml Output Total 800 ml 1100 ml Balance -470 ml -1100 ml Free Water 150 ml Tube Feeding 180 ml Output Urine Total 800 ml 1100 ml Dressing: saturated Wound: clean Cardiovascular: RSR Respiratory: clear Abdomen: soft, flat, non-tender, present bowel sounds Extremities: no cyanosis Laboratory Tests Test 09/06/19 06:40 White Blood Count 9.9 K/UL (4.8-10.8) Red Blood Count 4.01 M/UL (4.70-6.10) L Hemoglobin 11.3 G/DL (14.2-18.0) L Hematocrit 34.7 % (42.0-52.0) L Mean Corpuscular Volume 87 FL (80-99) Mean Corpuscular Hemoglobin 28.2 PG (27.0-31.0) Mean Corpuscular Hemoglobin Concent 32.6 G/DL (32.0-36.0) Red Cell Distribution Width 15.1 % (11.6-14.8) H Platelet Count 535 K/UL (150-450) H Mean Platelet Volume 7.8 FL (6.5-10.1) Neutrophils (%) (Auto) 75.3 % (45.0-75.0) H Lymphocytes (%) (Auto) 18.0 % (20.0-45.0) L Monocytes (%) (Auto) 6.0 % (1.0-10.0) Eosinophils (%) (Auto) 0.1 % (0.0-3.0) Basophils (%) (Auto) 0.6 % (0.0-2.0) Sodium Level 134 MMOL/L (136-145) L Potassium Level 4.5 MMOL/L (3.5-5.1) Chloride Level 101 MMOL/L (98-107) Carbon Dioxide Level 32 MMOL/L (21-32) Anion Gap 1 mmol/L (5-15) L Blood Urea Nitrogen 21 mg/dL (7-18) H Creatinine 1.0 MG/DL (0.55-1.30) Estimat Glomerular Filtration Rate mL/min (>60) Glucose Level 286 MG/DL (74-106) H Calcium Level 8.7 MG/DL (8.5-10.1) Total Bilirubin 0.4 MG/DL (0.2-1.0) Aspartate Amino Transf (AST/SGOT) 45 U/L (15-37) H Alanine Aminotransferase (ALT/SGPT) 51 U/L (12-78) Alkaline Phosphatase 272 U/L (46-116) H Total Protein 7.5 G/DL (6.4-8.2) Albumin 1.9 G/DL (3.4-5.0) L Globulin 5.6 g/dL Albumin/Globulin Ratio 0.3 (1.0-2.7) L Amylase Level 258 U/L (25-115) H Lipase 1472 U/L (73-393) H Plan Problems: (1) Failure to thrive (2) Hip fracture, left Assessment & Plan: lucency noted on plain films no pain on exam repeat films ordered There is irregularity of the left greater trochanter indicative of a injury. This is probably an old fracture. However please correlate clinically. There is no fracture of the femoral neck or intertrochanteric region bilaterally. The bones are osteopenic. There is no malalignment of either hip identified. IMPRESSION: Irregularity of the left greater trochanter which may be indicative of a previous fracture. Doubt acute injury. However please correlate clinically. Generalized osteopenia (3) Severe protein-calorie malnutrition (4) Rhabdomyolysis (5) Acidosis (6) Adult Failure To Thrive Assessment & Plan: improving tube feeds will plan for repeat swallow study as cognitively improved (7) Pressure Ulcer Of Sacral Region, Unstageable Assessment & Plan: 1) Dehydration Assessment & Plan: AMS, found down dehydration improved with IVF ICD Codes: E86.0 - Dehydration SNOMED: 99737355 (2) Failure to thrive SNOMED: 33974667 (3) Rhabdomyolysis Assessment & Plan: likely from being down IV fluids trending down - resolved will monitor ICD Codes: M62.82 - Rhabdomyolysis SNOMED: 111226165 (4) Blood blister Assessment & Plan: Patient presented with multiple DTI and Blood blisters Found down prior and noted on eval in ED at [place]. Seen [place] [facility] with 8.8cm x 9cm sacral DTI with oozing on right sacral with resorbing blood blister. periwound intact and stable. Right scapula DTI 9.9cm x 5cm purple and indurated without drainage Left thoracic DTI 1cm x 3.5cm purple and indurated without drainage bilateral heels stable and soft with blanching no other skin concerns noted at this time see below as changed Tx Plan: Monitor wounds for drainage. Will apply skin protectant and Optifoam dressings Daily and prn saturation Keep heels off loaded with pillows Air soft mattress Turn q2h Nutritional optimization Will follow with recs. ICD Codes: T14.8XXA - Other injury of unspecified body region, initial encounter SNOMED: 564006322 (5) Lactic acid acidosis Assessment & Plan: IV fluids resuscitation trend resolved ICD Codes: E87.2 - Acidosis SNOMED: 43565205 (6) Hip fracture, left Assessment & Plan: lucency noted on plain films no pain on exam repeat films ordered and noted ICD Codes: S72.002A - Fracture of unspecified part of neck of left femur, initial encounter for closed fracture SNOMED: 194278541 (7) Deep tissue injury ICD Codes: T14.8XXA - Other injury of unspecified body region, initial encounter SNOMED: 870799137 (8) Pancreatitis Assessment & Plan: arnaldo and lip improved MRI noted exam benign no complaints tolerating feeds given above cont with tube feeds. okay to advance to goal trend labs will monitor (9) Unstageable decubitus ulcer Assessment & Plan: Patient presented with multiple deep tissue injuries from being down for unknown period of time. Blood blisters were forming around some of these wounds. On ablation today bedside patient's sacral wound was noted blood pressure had resolved and underlying patient has now a unstageable sacral decubitus ulcer with the coccygeal area having a stage III open wound approximately 2 cm x 1 cm x 0.4 mm deep. Periwound is intact. Eschar noted and stable. No fluctuance. No significant tenderness on palpation. No drainage. No foul order. The area and complete is approximately 8 cm wide by 5 cm long Treatment plan changed. Recommend washing sacral decubitus ulcer daily with normal saline. Apply Thera honey impregnated gauze followed by up to foam dressing. Continue with standard decubitus precautions. will likely need debridement as he improves James Breen Sep 06, 2019 12:30
--- NOTE | 2019-09-06 14:03 | Internal Med Progress Note ---
Subjective Physician Name Cirilo Rome Attending Physician Cirilo Rome MD Current Medications Medications (Trade) Dose Ordered Sig/Debi Route PRN Reason Start Time Stop Time Status Last Admin Dose Admin Acetaminophen (Tylenol) 650 mg Q4H PRN RECTAL Prn Headache/Temp > 101 08/27/19 12:00 09/26/19 11:59 08/29/19 00:34 Acetaminophen (Tylenol) 650 mg Q6H PRN NG Mild Pain/Temp > 100.5 09/03/19 10:30 09/26/19 01:59 Amlodipine Besylate (Norvasc) 10 mg DAILY NG 09/03/19 11:00 10/03/19 10:59 09/06/19 08:56 Aspirin (ASA) 81 mg DAILY NG 09/03/19 11:00 09/26/19 08:59 09/06/19 08:56 Barium Sulfate (Readi-Cat 2) 450 ml NOW PRN ORAL Radiology Procedure 09/06/19 09:00 09/08/19 08:49 Benazepril HCl (Lotensin) 10 mg DAILY NG 09/03/19 11:00 10/03/19 10:59 09/06/19 08:56 Dextrose (Dextrose 50%) 25 ml Q30M PRN IV Hypoglycemia 08/27/19 15:15 09/26/19 15:14 Dextrose (Dextrose 50%) 50 ml Q30M PRN IV Hypoglycemia 08/27/19 15:15 09/26/19 15:14 Heparin Sodium (Porcine) (Heparin 5000 units/ml) 5,000 units EVERY 8 HOURS SUBQ 08/27/19 06:00 09/26/19 05:59 09/06/19 13:35 Insulin Aspart (NovoLOG) BEFORE MEALS AND HS SUBQ 08/29/19 11:30 09/28/19 11:29 09/06/19 11:54 Insulin Detemir (Levemir) 6 units DAILY SUBQ 08/30/19 12:00 09/29/19 11:59 09/06/19 08:52 Iohexol (OMNIPAQUE-300 100ml) 100 ml NOW PRN INJ Radiology Procedure 09/06/19 09:00 09/08/19 08:49 Morphine Sulfate (Morphine Sulfate) 2 mg Q4H PRN IVP For Pain 09/05/19 11:45 09/12/19 11:44 Allergies: Coded Allergies: No Known Allergies (Unverified , 08/27/19) Subjective Awake, alert, responsive, no acute distress, tolerated tube feeding, worsening of renal function with elevated BUN/creatinine ratio. Objective Last Vital Signs Date Time Temp Pulse Resp B/P (MAP) Pulse Ox O2 Delivery O2 Flow Rate FiO2 09/06/19 12:00 99.7 93 19 114/55 (74) 97 09/06/19 09:00 Room Air 09/02/19 22:12 21 Laboratory Tests Test 09/06/19 06:40 White Blood Count 9.9 K/UL (4.8-10.8) Red Blood Count 4.01 M/UL (4.70-6.10) L Hemoglobin 11.3 G/DL (14.2-18.0) L Hematocrit 34.7 % (42.0-52.0) L Mean Corpuscular Volume 87 FL (80-99) Mean Corpuscular Hemoglobin 28.2 PG (27.0-31.0) Mean Corpuscular Hemoglobin Concent 32.6 G/DL (32.0-36.0) Red Cell Distribution Width 15.1 % (11.6-14.8) H Platelet Count 535 K/UL (150-450) H Mean Platelet Volume 7.8 FL (6.5-10.1) Neutrophils (%) (Auto) 75.3 % (45.0-75.0) H Lymphocytes (%) (Auto) 18.0 % (20.0-45.0) L Monocytes (%) (Auto) 6.0 % (1.0-10.0) Eosinophils (%) (Auto) 0.1 % (0.0-3.0) Basophils (%) (Auto) 0.6 % (0.0-2.0) Sodium Level 134 MMOL/L (136-145) L Potassium Level 4.5 MMOL/L (3.5-5.1) Chloride Level 101 MMOL/L (98-107) Carbon Dioxide Level 32 MMOL/L (21-32) Anion Gap 1 mmol/L (5-15) L Blood Urea Nitrogen 21 mg/dL (7-18) H Creatinine 1.0 MG/DL (0.55-1.30) Estimat Glomerular Filtration Rate mL/min (>60) Glucose Level 286 MG/DL (74-106) H Calcium Level 8.7 MG/DL (8.5-10.1) Total Bilirubin 0.4 MG/DL (0.2-1.0) Aspartate Amino Transf (AST/SGOT) 45 U/L (15-37) H Alanine Aminotransferase (ALT/SGPT) 51 U/L (12-78) Alkaline Phosphatase 272 U/L (46-116) H Total Protein 7.5 G/DL (6.4-8.2) Albumin 1.9 G/DL (3.4-5.0) L Globulin 5.6 g/dL Albumin/Globulin Ratio 0.3 (1.0-2.7) L Amylase Level 258 U/L (25-115) H Lipase 1472 U/L (73-393) H Intake and Output 09/05/19 09/06/19 19:00 07:00 Intake Total 270 ml Output Total 800 ml 1100 ml Balance -530 ml -1100 ml Free Water 150 ml Tube Feeding 120 ml Output Urine Total 800 ml 1100 ml Objective General: No acute distress, awake and responsive. HEENT: NCAT, sclera anicteric, PERRL, EOMI, NG Tube. Neck: Supple, no significant jugular venous distention, Lungs: fair inspiratory effort, decreased air at the bases, no Wheeze or Rales. Heart: Regular rate and rhythm, normal S1/S2, no murmurs Abdomen: soft, nontender, nondistended. Normoactive bowel sounds. Decubi Ulcer. Extremities: No Cyanosis , clubbing or edema. Neuro: A&O x 2, able to move upper extremities, Lower extremities weakness. Skin: warm, blood blisters, sacral ulcer. Assessment/Plan Assessment/Plan 1. Altered mental status likely secondary to toxic metabolic encephalopathy. 2. Fracture of the left femur greater trochanter. 3. Rhabdomyolysis. 4. Dehydration. 5. Diabetes type 2. 6. Hypertension. 7. Hypercholesterolemia. 8. Hyponatremia. 9. dehydration 10. deep tissue injury. 11. Severe protein calorie malnutrition 12. Spiking fever possible urinary tract infection Plan: Tolerated tube feeding at 60 cc/hr. DVT prophylaxis: Heparin subcu. CODE STATUS: Full code. Abx: off Follow-up with the laboratory in the morning. swallow study in AM. Restart IVF Monitor wounds for drainage. Apply skin protectant and Optifoam dressings Daily and prn saturation Cirilo Rome MD Sep 06, 2019 14:03
--- NOTE | 2019-09-06 15:41 | Pulmonology Progress Note ---
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 (3) Acute encephalopathy (4) Severe protein-calorie malnutrition (5) History of hypertension (6) Diabetes mellitus Assessment/Plan more alert NG tube is in, tolerating feeding, social work supervisor note reviewed, pt doesn't have anybody to make any decision for him mental status better will need Gtube and stopperer assembler placement Subjective ROS Limited/Unobtainable: No Constitutional: Reports: no symptoms HEENT: Repors: no symptoms Allergies: Coded Allergies: No Known Allergies (Unverified , 08/27/19) Objective Last 24 Hour Vital Signs Date Time Temp Pulse Resp B/P (MAP) Pulse Ox O2 Delivery O2 Flow Rate FiO2 09/06/19 12:00 99.7 93 19 114/55 (74) 97 09/06/19 09:00 Room Air 09/06/19 08:56 137/66 09/06/19 08:56 99 137/66 09/06/19 08:00 98.7 99 20 137/66 (89) 97 09/06/19 04:00 99.5 101 20 104/71 (82) 96 09/06/19 00:00 98.8 107 20 114/56 (75) 94 09/05/19 21:00 Room Air 09/05/19 20:00 99.1 104 20 118/62 (80) 97 09/05/19 16:00 97.9 77 18 138/80 (99) 98 Intake and Output 09/05/19 09/06/19 19:00 07:00 Intake Total 270 ml Output Total 800 ml 1100 ml Balance -530 ml -1100 ml Free Water 150 ml Tube Feeding 120 ml Output Urine Total 800 ml 1100 ml Objective still has ng tube General Appearance: cachetic HEENT: normocephalic, atraumatic Respiratory/Chest: chest wall non-tender, normal breath sounds Cardiovascular: normal rate, regular rhythm Abdomen: normal bowel sounds, soft, non tender Genitourinary: normal external genitalia Extremities: no cyanosis Skin: no rash, no lesions Laboratory Tests 09/06/19 06:40: White Blood Count 9.9, Red Blood Count 4.01L, Hemoglobin 11.3L, Hematocrit 34.7L , Mean Corpuscular Volume 87, Mean Corpuscular Hemoglobin 28.2, Mean Corpuscular Hemoglobin Concent 32.6, Red Cell Distribution Width 15.1H, Platelet Count 535H, Mean Platelet Volume 7.8, Neutrophils (%) (Auto) 75.3H, Lymphocytes (%) (Auto) 18.0L, Monocytes (%) (Auto) 6.0, Eosinophils (%) (Auto) 0.1, Basophils (%) (Auto) 0.6, Sodium Level 134L, Potassium Level 4.5, Chloride Level 101, Carbon Dioxide Level 32, Anion Gap 1L, Blood Urea Nitrogen 21H, Creatinine 1.0, Estimat Glomerular Filtration Rate , Glucose Level 286H, Calcium Level 8.7, Total Bilirubin 0.4, Aspartate Amino Transf (AST/SGOT) 45H, Alanine Aminotransferase (ALT/SGPT) 51, Alkaline Phosphatase 272H, Total Protein 7.5, Albumin 1.9L, Globulin 5.6, Albumin/Globulin Ratio 0.3L, Amylase Level 258H, Lipase 1472H Current Medications Medications (Trade) Dose Ordered Sig/Debi Route PRN Reason Start Time Stop Time Status Last Admin Dose Admin Acetaminophen (Tylenol) 650 mg Q4H PRN RECTAL Prn Headache/Temp > 101 08/27/19 12:00 09/26/19 11:59 08/29/19 00:34 Acetaminophen (Tylenol) 650 mg Q6H PRN NG Mild Pain/Temp > 100.5 09/03/19 10:30 09/26/19 01:59 Amlodipine Besylate (Norvasc) 10 mg DAILY NG 09/03/19 11:00 10/03/19 10:59 09/06/19 08:56 Aspirin (ASA) 81 mg DAILY NG 09/03/19 11:00 09/26/19 08:59 09/06/19 08:56 Barium Sulfate (Readi-Cat 2) 450 ml NOW PRN ORAL Radiology Procedure 09/06/19 09:00 09/08/19 08:49 Benazepril HCl (Lotensin) 10 mg DAILY NG 09/03/19 11:00 10/03/19 10:59 09/06/19 08:56 Dextrose (Dextrose 50%) 25 ml Q30M PRN IV Hypoglycemia 08/27/19 15:15 09/26/19 15:14 Dextrose (Dextrose 50%) 50 ml Q30M PRN IV Hypoglycemia 08/27/19 15:15 09/26/19 15:14 Heparin Sodium (Porcine) (Heparin 5000 units/ml) 5,000 units EVERY 8 HOURS SUBQ 08/27/19 06:00 09/26/19 05:59 09/06/19 13:35 Insulin Aspart (NovoLOG) BEFORE MEALS AND HS SUBQ 08/29/19 11:30 09/28/19 11:29 09/06/19 11:54 Insulin Detemir (Levemir) 6 units DAILY SUBQ 08/30/19 12:00 09/29/19 11:59 09/06/19 08:52 Iohexol (OMNIPAQUE-300 100ml) 100 ml NOW PRN INJ Radiology Procedure 09/06/19 09:00 09/08/19 08:49 Morphine Sulfate (Morphine Sulfate) 2 mg Q4H PRN IVP For Pain 09/05/19 11:45 09/12/19 11:44 Sodium Chloride 1,000 ml @ 75 mls/hr [id number] IV 09/06/19 14:15 10/06/19 14:14 09/06/19 15:23 Latanya Mckeon MD Sep 06, 2019 15:41
[2019-09-06 16:00] VITALS: BP 116/60
--- NOTE | 2019-09-06 19:26 | NUR ---
HAND-OFF: Report given to JOHNNY Orourke.
--- NOTE | 2019-09-06 19:26 | NUR ---
NURSE NOTES: Pt received in bed awake, no signs of distress, NG tube in place, mckinney catheter draining yellow urine, head of bed elevated, will continue to monitor.
[2019-09-06 20:00] VITALS: BP 129/60
[2019-09-06] MEDS: Acetaminophen 650mg/20.3ml NG PRN (20:40)
--- NOTE | 2019-09-06 20:45 | NUR ---
NURSE NOTES: Pt temp 101.8, given tylenol via NG tube, will reassess.
--- NOTE | 2019-09-06 21:15 | NUR ---
NURSE NOTES: Reassessed pt and temp 99.9
[2019-09-07] VITALS: BP 124/64
--- NOTE | 2019-09-07 | NUR ---
NURSE NOTES: Midnight vitals temp 98.2, 105 hr, 18rr, 124/64, 99% O2 room air
--- NOTE | 2019-09-07 00:24 | NUR ---
NURSE NOTES: Pt NPO at midnight, NG tube feeding is off, IV fluids running.
[2019-09-07 04:00] VITALS: BP 130/60
[2019-09-07] MEDS: Heparin 5000 units/ml inj SUBQ SCH ×3 (05:52→20:57)
[2019-09-07] MEDS: NovoLOG Insulin Flexpen SUBQ SCH ×4 (05:54→20:56)
[2019-09-07 07:34] LABS: BASOPHILS % (AUTO) 0.6 % (0.0-2.0); HEMATOCRIT 36.2 % (42.0-52.0); HEMOGLOBIN 11.9 G/DL (14.2-18.0); LYMPHOCYTES % (AUTO) 14.8 % (20.0-45.0); MEAN CORPUSCULAR VOLUME 85 FL (80-99); MONOCYTES % (AUTO) 4.1 % (1.0-10.0); NEUTROPHILS % (AUTO) 80.5 % (45.0-75.0); PLATELET COUNT 511 K/UL (150-450); RED BLOOD COUNT 4.24 M/UL (4.70-6.10); RED CELL DISTRIBUTION WIDTH 13.9 % (11.6-14.8); WHITE BLOOD COUNT 9.9 K/UL (4.8-10.8)
--- NOTE | 2019-09-07 07:39 | NUR ---
HAND-OFF: Report given to JOHNNY Fowler. Endorsed pt NPO 09/07/19 0000, abd ct today, swallow eval today.
[2019-09-07 08:00] VITALS: BP 133/65
--- NOTE | 2019-09-07 08:00 | NUR ---
NURSE NOTES: Patient is alert to name,nonverbal, respirations unlabored.IV fluids infusing as ordered.Patient is NPO for schedule test today. N/G tube in place and checked by auscultation.Adams catheter in place and draining ej color urine.Soft wrist restraints are on ROM to be given to extremities and skin care.Bed alarm is on,call light within reach.
[2019-09-07 08:23] LABS: ALANINE AMINOTRANSFERASE 50 U/L (12-78); ALBUMIN 1.9 G/DL (3.4-5.0); ALBUMIN/GLOBULIN RATIO 0.4 (1.0-2.7); ALKALINE PHOSPHATASE 265 U/L (46-116); AMYLASE 245 U/L (25-115); ANION GAP 9 mmol/L (5-15); ASPARTATE AMINO TRANSFERASE 68 U/L (15-37); BILIRUBIN,TOTAL 0.5 MG/DL (0.2-1.0); BLOOD UREA NITROGEN 19 mg/dL (7-18); CALCIUM 8.3 MG/DL (8.5-10.1); CARBON DIOXIDE 26 MMOL/L (21-32); CHLORIDE 103 MMOL/L (98-107); CHOLESTEROL 191 MG/DL (< 200); CREATININE 0.7 MG/DL (0.55-1.30); HDL CHOLESTEROL 38 MG/DL (40-60); POTASSIUM 5.4 MMOL/L (3.5-5.1); SODIUM 138 MMOL/L (136-145); TRIGLYCERIDES 86 MG/DL (30-150)
[2019-09-07] MEDS: Benazepril 10mg tab NG SCH (09:00)
[2019-09-07] MEDS: Aspirin Baby 81mg NG SCH (09:00)
[2019-09-07] MEDS: Levemir Flexpen SUBQ SCH (11:47)
[2019-09-07 12:00] VITALS: BP 130/70
--- NOTE | 2019-09-07 13:22 | GI Progress Note ---
Assessment/Plan Problems: (1) Pancreatitis ICD Codes: K85.90 - Acute pancreatitis without necrosis or infection, unspecified SNOMED: 74426463 (2) Acute encephalopathy ICD Codes: G93.40 - Encephalopathy, unspecified SNOMED: 03157990, 824129553 (3) Failure to thrive SNOMED: 44989890 (4) Severe protein-calorie malnutrition ICD Codes: E43 - Unspecified severe protein-calorie malnutrition SNOMED: 009918719, 215593321, 016443960 Status: unchanged Status Narrative Discussed with Dr. Smith. Assessment/Plan US reviewed, negative MRCP negative elevated lipase lipid panel WNL NGTFs increase free water flushes for hypernatremia IV hydration repeat lipase levels pending repeat swallow eval given improved cognition>> failed on Saturday will consider PEG if necessary>>> looking for social media marketing specialist CT of abd and pelvic Bioethic consult The patient was seen and examined at bedside and all new and available data was reviewed in the patients chart. I agree with the above findings, impression and plan. (Patient seen earlier today. Signature stamp does not reflect patient encounter time.). - Alek Smith MD Subjective Subjective limited Objective Last 24 Hour Vital Signs Date Time Temp Pulse Resp B/P (MAP) Pulse Ox O2 Delivery O2 Flow Rate FiO2 09/07/19 12:00 97.8 90 20 130/70 (90) 98 09/07/19 09:00 Room Air 09/07/19 08:00 98.0 98 18 133/65 (87) 99 09/07/19 04:00 98.6 106 18 130/60 (83) 98 09/07/19 00:00 98.2 105 18 124/64 (84) 99 09/06/19 21:15 99.9 09/06/19 21:10 99.9 09/06/19 21:00 Room Air 09/06/19 20:00 101.8 107 18 129/60 (83) 95 09/06/19 16:00 99.0 95 20 116/60 (78) 98 Intake and Output 09/06/19 09/07/19 18:59 06:59 Intake Total 1125 ml Output Total 600 ml 1300 ml Balance -600 ml -175 ml Free Water 450 ml IV Total 375 ml Tube Feeding 300 ml Output Urine Total 600 ml 1300 ml Laboratory Tests Test 09/07/19 06:20 White Blood Count 9.9 K/UL (4.8-10.8) Red Blood Count 4.24 M/UL (4.70-6.10) L Hemoglobin 11.9 G/DL (14.2-18.0) L Hematocrit 36.2 % (42.0-52.0) L Mean Corpuscular Volume 85 FL (80-99) Mean Corpuscular Hemoglobin 28.0 PG (27.0-31.0) Mean Corpuscular Hemoglobin Concent 32.8 G/DL (32.0-36.0) Red Cell Distribution Width 13.9 % (11.6-14.8) Platelet Count 511 K/UL (150-450) H Mean Platelet Volume 6.8 FL (6.5-10.1) Neutrophils (%) (Auto) 80.5 % (45.0-75.0) H Lymphocytes (%) (Auto) 14.8 % (20.0-45.0) L Monocytes (%) (Auto) 4.1 % (1.0-10.0) Eosinophils (%) (Auto) 0.0 % (0.0-3.0) Basophils (%) (Auto) 0.6 % (0.0-2.0) Sodium Level 138 MMOL/L (136-145) Potassium Level 5.4 MMOL/L (3.5-5.1) H Chloride Level 103 MMOL/L (98-107) Carbon Dioxide Level 26 MMOL/L (21-32) Anion Gap 9 mmol/L (5-15) Blood Urea Nitrogen 19 mg/dL (7-18) H Creatinine 0.7 MG/DL (0.55-1.30) Estimat Glomerular Filtration Rate mL/min (>60) Glucose Level 197 MG/DL (74-106) H Calcium Level 8.3 MG/DL (8.5-10.1) L Total Bilirubin 0.5 MG/DL (0.2-1.0) Aspartate Amino Transf (AST/SGOT) 68 U/L (15-37) H Alanine Aminotransferase (ALT/SGPT) 50 U/L (12-78) Alkaline Phosphatase 265 U/L (46-116) H Total Protein 6.8 G/DL (6.4-8.2) Albumin 1.9 G/DL (3.4-5.0) L Globulin 4.9 g/dL Albumin/Globulin Ratio 0.4 (1.0-2.7) L Triglycerides Level 86 MG/DL (30-150) Cholesterol Level 191 MG/DL (< 200) LDL Cholesterol 136 mg/dL (<100) H HDL Cholesterol 38 MG/DL (40-60) L Cholesterol/HDL Ratio 5.0 (3.3-4.4) H Amylase Level 245 U/L (25-115) H Lipase 1299 U/L (73-393) H CA 19-9 Antigen Pending Height (Feet): 5 Height (Inches): 8.00 Weight (Pounds): 144 General Appearance: no apparent distress Cardiovascular: normal rate Respiratory/Chest: no respiratory distress Abdominal Exam: soft, other - NGT Mac Boston NP Sep 07, 2019 13:22
--- NOTE | 2019-09-07 13:31 | NUR ---
SINGER BACK TENDERADDICTION SPECIALIST SI: FAILURE TO THRIVE, PANCREATIS T. 99.9 HR 105 RR 18 B/P 130/60 K 5.4 AST 68 ALT 265 AMYLASE 245 LIPASE 1299 IS: IVF NS @ 75ML/HR HEPARIN SUBC SWALLOW EVAL MED/SURG STATUS
--- NOTE | 2019-09-07 14:12 | NUR ---
COMPLETED MOD BARIUM SWALLOW STUDY, SEE FULL REPORT TO FOLLOW. SOCIAL HX: PER RN, HIS 10 YEARS AGO. HE HAS A STEPSON BUT HAS NOT SPOKEN TO HIM IN A LONG TIME. FAMILY IN [place]. JAIN[employer] MEMBER FRIEND ONLY. LIMITED STUDY AND PO TRIALS , PATIENT ALERT BUT NOT VERBALIZING. TENDS TO TURN HIS HEAD SLIGHTLY TO THE RIGHT AND HAS [address] TENDS TO REFUSE SOME PO TRIALS INITIALLY. AFTER 2 TRIALS, SHE SQUEEZED HIS LIPS CLOSED (EVEN DURING ORAL SUCTION). RESP RATE ON ROOM AIR 18-20 NO SIGNIFICANT CHANGE. INITIAL IMPRESSIONS: APPEARS TO HAVE A SIGNIFICANT ORAL PREP AND ORAL DYSPHAGIA WITH SEVERE INCREASE IN TRANSIT TIMES THAT MAY BE COMPOUNDED BY AN ORAL APRAXIA (ORAL SENSATION/AWARENESS DEFICIT) AND BEHAVIORAL CHALLENGES. GIVEN TSP (X2) THIN LIQUID, HE HAD MIN TONGUE MOVEMENT (TONGUE APPEARED TREMORS) AND UNABLE TO MOVE TONGUE POSTERIORLY EVEN WITH MAX CUES. REQUIRED ORAL SUCTION (WHICH HE DISLIKES AND TENDED TO KEEP LIPS CLOSED). UNABLE TO GIVE A LARGER BOLUS (TO SEE IF THERE WAS A SENSORY BOLUS EFFECT AND TO R/O ORAL APRAXIA) BUT PATIENT SQUEEZED HIS LIPS CLOSED. NOT ABLE TO COMMENT ON PHARYNGEAL NOR ESOPHAGEAL PHASE BUT CLINICALLY LAST WEEK HE REQUIRED PHARYNGEAL SUCTION OF CRUSHED MEDS AND APPLESAUCE FROM THE BACK OF HIS THROAT (BILATERALLY AND MIDDLE OF THROAT AREA). THROAT. HIGH RISK FOR SILENT ASPIRATION AND POOR AND UNSAFE PO INTAKE. COMPONENTS/DEFICITS THAT INCREASE ASPIRATION RISK AND REDUCE SWALLOW EFFICIENCY NOTED IN ORAL PREP AND ORAL PHASE: Oral Impairment ORAL APRAXIA/SENSORY AWARENESS Lip Closure MID LIPS Tongue Control Bolus transport/lingual motion Oral residue Component 1-Lip Closure 2-Esc from interlabial sp Component 2-Tongue Control during bolus hold 1-Esc to lat buccal cavit Component 4-Bolus Transport/Lingual Motion 4-Min to no tongue motion Component 5-Oral Residue 4-Minimal to no clearance Location of Oral Residue A-Floor of Mouth C-Tongue D-Lateral sulci TRIAL TX: NOT EFFECTIVE EVEN WHEN GIVEN MAX VERBAL/VISUAL/TACTILE CUES TO PUSH BACK TSP OF THIN LIQUID. RECOMMENDATIONS: CONTINUE WITH NGT FEEDINGS AND CONSIDER LONGER TERM (PEG) FEEDINGS POST BIOETHICS MEETING (PER DR FOURNIER). CONTINUE WITH ORAL CARE AND SUCTION PRN TRIAL TX OF SKILLED DYSPHAGIA MANAGEMENT AND TX D/W DR FOURNIER, [facility] GI ORDER TAKERS SUPERVISOR, JOHNNY YEE, AND LEFT MESSAGE WITH DR SHARP Addendum: 09/07/19 at 1418 by LEIDA WHITTAKER WILL NEED A REPEAT MOD BARIUM SWALLOW STUDY AFTER D/C AND 2-4 WEEKS SWALLOW TX TO RE-EVALUATE HIS ABILITY TO TOLERATE PO INTAKE OR ORAL GRATIFICATION.
--- NOTE | 2019-09-07 14:53 | Pulmonology Progress Note ---
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 (3) Acute encephalopathy (4) Severe protein-calorie malnutrition (5) History of hypertension (6) Diabetes mellitus Assessment/Plan more alert NG tube is in, tolerating feeding, social psychologist note reviewed, pt doesn't have anybody to make any decision for him mental status better will need Gtube and supervisor long goods placement PT DOENS'T have any family members to sign for his consents. Subjective ROS Limited/Unobtainable: No Constitutional: Reports: no symptoms HEENT: Repors: no symptoms Allergies: Coded Allergies: No Known Allergies (Unverified , 08/27/19) Objective Last 24 Hour Vital Signs Date Time Temp Pulse Resp B/P (MAP) Pulse Ox O2 Delivery O2 Flow Rate FiO2 09/07/19 12:00 97.8 90 20 130/70 (90) 98 09/07/19 09:00 Room Air 09/07/19 08:00 98.0 98 18 133/65 (87) 99 09/07/19 04:00 98.6 106 18 130/60 (83) 98 09/07/19 00:00 98.2 105 18 124/64 (84) 99 09/06/19 21:15 99.9 09/06/19 21:10 99.9 09/06/19 21:00 Room Air 09/06/19 20:00 101.8 107 18 129/60 (83) 95 09/06/19 16:00 99.0 95 20 116/60 (78) 98 Intake and Output 09/06/19 09/07/19 18:59 06:59 Intake Total 1125 ml Output Total 600 ml 1300 ml Balance -600 ml -175 ml Free Water 450 ml IV Total 375 ml Tube Feeding 300 ml Output Urine Total 600 ml 1300 ml Objective still has ng tube General Appearance: cachetic HEENT: normocephalic, atraumatic Respiratory/Chest: chest wall non-tender, normal breath sounds Cardiovascular: normal rate, regular rhythm Abdomen: normal bowel sounds, soft, non tender Genitourinary: normal external genitalia Extremities: no cyanosis Skin: no rash, no lesions Laboratory Tests 09/07/19 06:20: White Blood Count 9.9, Red Blood Count 4.24L, Hemoglobin 11.9L, Hematocrit 36.2L , Mean Corpuscular Volume 85, Mean Corpuscular Hemoglobin 28.0, Mean Corpuscular Hemoglobin Concent 32.8, Red Cell Distribution Width 13.9, Platelet Count 511H, Mean Platelet Volume 6.8, Neutrophils (%) (Auto) 80.5H, Lymphocytes (%) (Auto) 14.8L, Monocytes (%) (Auto) 4.1, Eosinophils (%) (Auto) 0.0, Basophils (%) (Auto) 0.6, Sodium Level 138, Potassium Level 5.4H, Chloride Level 103, Carbon Dioxide Level 26, Anion Gap 9, Blood Urea Nitrogen 19H, Creatinine 0.7, Estimat Glomerular Filtration Rate , Glucose Level 197H, Calcium Level 8.3L, Total Bilirubin 0.5, Aspartate Amino Transf (AST/SGOT) 68H, Alanine Aminotransferase (ALT/SGPT) 50, Alkaline Phosphatase 265H, Total Protein 6.8, Albumin 1.9L, Globulin 4.9, Albumin/Globulin Ratio 0.4L, Triglycerides Level 86, Cholesterol Level 191, LDL Cholesterol 136H, HDL Cholesterol 38L, Cholesterol/HDL Ratio 5.0H, Amylase Level 245H, Lipase 1299H, CA 19-9 Antigen [Pending] Current Medications Medications (Trade) Dose Ordered Sig/Debi Route PRN Reason Start Time Stop Time Status Last Admin Dose Admin Acetaminophen (Tylenol) 650 mg Q4H PRN RECTAL Prn Headache/Temp > 101 08/27/19 12:00 09/26/19 11:59 08/29/19 00:34 Acetaminophen (Tylenol) 650 mg Q6H PRN NG Mild Pain/Temp > 100.5 09/03/19 10:30 09/26/19 01:59 09/06/19 20:40 Amlodipine Besylate (Norvasc) 10 mg DAILY NG 09/03/19 11:00 10/03/19 10:59 09/06/19 08:56 Aspirin (ASA) 81 mg DAILY NG 09/03/19 11:00 09/26/19 08:59 09/06/19 08:56 Barium Sulfate (Readi-Cat 2) 450 ml NOW PRN ORAL Radiology Procedure 09/06/19 09:00 09/08/19 08:49 Benazepril HCl (Lotensin) 10 mg DAILY NG 09/03/19 11:00 10/03/19 10:59 09/06/19 08:56 Dextrose (Dextrose 50%) 25 ml Q30M PRN IV Hypoglycemia 08/27/19 15:15 09/26/19 15:14 Dextrose (Dextrose 50%) 50 ml Q30M PRN IV Hypoglycemia 08/27/19 15:15 09/26/19 15:14 Heparin Sodium (Porcine) (Heparin 5000 units/ml) 5,000 units EVERY 8 HOURS SUBQ 08/27/19 06:00 09/26/19 05:59 09/07/19 05:52 Insulin Aspart (NovoLOG) BEFORE MEALS AND HS SUBQ 08/29/19 11:30 09/28/19 11:29 09/07/19 05:54 Insulin Detemir (Levemir) 6 units DAILY SUBQ 08/30/19 12:00 09/29/19 11:59 09/07/19 11:47 Iohexol (OMNIPAQUE-300 100ml) 100 ml NOW PRN INJ Radiology Procedure 09/06/19 09:00 09/08/19 08:49 Morphine Sulfate (Morphine Sulfate) 2 mg Q4H PRN IVP For Pain 09/05/19 11:45 09/12/19 11:44 Sodium Chloride 1,000 ml @ 75 mls/hr [id number] IV 09/06/19 14:15 10/06/19 14:14 09/07/19 05:10 Latanya Mckeon MD Sep 07, 2019 14:53
[2019-09-07 16:00] VITALS: BP 138/88
--- NOTE | 2019-09-07 16:23 | NUR ---
NURSE NOTES:WOUND CARE FOLLOW-UP NOTES:Pt presented on admission with multiple DTPI's as documented initial assessment. Sacral DTPI has now evolved into necrotic ulcer with semi-detached borders with slough(L)7.6cm x (W)7cm. Periwound has a darker skin tone without fluctuance or induration. Sacral wound evaluated by and sacral wound was cross-hatched by . Therahoney applied to base of wound . Moisture Barrier paste applied along borders of wound and covered with Optifoam drsg. Reabsorbed DTPI L thoracic. Base of wound is necrotic but dry(L)0.5cm x (W)3.5cm. Reabsorbed DTPI R scapula. Base of wound dry with peeling necrotic skin. (L)9.9cm x (W)5cm. Reabsorbed blister media/posterior L thigh. Base of wound is black and dry . No erythema noted. Both heels are dry,firm and easily blanches. Tx.plan: Cleanse sacral wound with saline. Apply Therahoney. Apply Moisture Barrier paste periwound. Cover with Optifoam drsg. Change every 3 days and prn. Apply Cavilon Skin Barrier to R scapula. Cover with Optifoam drsg. change every 7 days and prn. Apply Cavilon Skin Barrier to L thoracic. Cover with Optifoam drsg. Change every 7 days and prn. Apply Cavilon Skin Barrier to both heels. cover each heel with Optifoam drsg. Change every 7 days and prn. Apply Cavilon Skin Barrier to posterior L thigh. Cover with Optifoam drsg. Change every 7 days and prn. Reposition at least every 2hours or as tolerated. Off-load heels with pillow. APM/ALEK Mattress overlay.
--- NOTE | 2019-09-07 18:30 | NUR ---
NURSE NOTES: Patient NPO.N/G tube remains in place.Turned and position,soft wrist restraint on.Bed alarm on,call light within reach
--- NOTE | 2019-09-07 18:37 | Internal Med Progress Note ---
Subjective Date of Service: Sep 07, 2019 Physician Name Tello Cobb Attending Physician Cirilo Roem MD Current Medications Medications (Trade) Dose Ordered Sig/Debi Route PRN Reason Start Time Stop Time Status Last Admin Dose Admin Acetaminophen (Tylenol) 650 mg Q4H PRN RECTAL Prn Headache/Temp > 101 08/27/19 12:00 09/26/19 11:59 08/29/19 00:34 Acetaminophen (Tylenol) 650 mg Q6H PRN NG Mild Pain/Temp > 100.5 09/03/19 10:30 09/26/19 01:59 09/06/19 20:40 Amlodipine Besylate (Norvasc) 10 mg DAILY NG 09/03/19 11:00 10/03/19 10:59 09/06/19 08:56 Aspirin (ASA) 81 mg DAILY NG 09/03/19 11:00 09/26/19 08:59 09/06/19 08:56 Barium Sulfate (Readi-Cat 2) 450 ml NOW PRN ORAL Radiology Procedure 09/06/19 09:00 09/08/19 08:49 Benazepril HCl (Lotensin) 10 mg DAILY NG 09/03/19 11:00 10/03/19 10:59 09/06/19 08:56 Dextrose (Dextrose 50%) 25 ml Q30M PRN IV Hypoglycemia 08/27/19 15:15 09/26/19 15:14 Dextrose (Dextrose 50%) 50 ml Q30M PRN IV Hypoglycemia 08/27/19 15:15 09/26/19 15:14 Heparin Sodium (Porcine) (Heparin 5000 units/ml) 5,000 units EVERY 8 HOURS SUBQ 08/27/19 06:00 09/26/19 05:59 09/07/19 15:15 Insulin Aspart (NovoLOG) BEFORE MEALS AND HS SUBQ 08/29/19 11:30 09/28/19 11:29 09/07/19 05:54 Insulin Detemir (Levemir) 6 units DAILY SUBQ 08/30/19 12:00 09/29/19 11:59 09/07/19 11:47 Iohexol (OMNIPAQUE-300 100ml) 100 ml NOW PRN INJ Radiology Procedure 09/06/19 09:00 09/08/19 08:49 Morphine Sulfate (Morphine Sulfate) 2 mg Q4H PRN IVP For Pain 09/05/19 11:45 09/12/19 11:44 Sodium Chloride 1,000 ml @ 75 mls/hr [id number] IV 09/06/19 14:15 10/06/19 14:14 09/07/19 05:10 Allergies: Coded Allergies: No Known Allergies (Unverified , 08/27/19) ROS Limited/Unobtainable: Yes Subjective 78 YO M admitted with altered mental status. Now rhabdomyolysis and pancreatitis. Cover for Int Med-Dr Rome Objective Last Vital Signs Date Time Temp Pulse Resp B/P (MAP) Pulse Ox O2 Delivery O2 Flow Rate FiO2 09/07/19 12:00 97.8 90 20 130/70 (90) 98 09/07/19 09:00 Room Air 09/02/19 22:12 21 Laboratory Tests Test 09/07/19 06:20 White Blood Count 9.9 K/UL (4.8-10.8) Red Blood Count 4.24 M/UL (4.70-6.10) L Hemoglobin 11.9 G/DL (14.2-18.0) L Hematocrit 36.2 % (42.0-52.0) L Mean Corpuscular Volume 85 FL (80-99) Mean Corpuscular Hemoglobin 28.0 PG (27.0-31.0) Mean Corpuscular Hemoglobin Concent 32.8 G/DL (32.0-36.0) Red Cell Distribution Width 13.9 % (11.6-14.8) Platelet Count 511 K/UL (150-450) H Mean Platelet Volume 6.8 FL (6.5-10.1) Neutrophils (%) (Auto) 80.5 % (45.0-75.0) H Lymphocytes (%) (Auto) 14.8 % (20.0-45.0) L Monocytes (%) (Auto) 4.1 % (1.0-10.0) Eosinophils (%) (Auto) 0.0 % (0.0-3.0) Basophils (%) (Auto) 0.6 % (0.0-2.0) Sodium Level 138 MMOL/L (136-145) Potassium Level 5.4 MMOL/L (3.5-5.1) H Chloride Level 103 MMOL/L (98-107) Carbon Dioxide Level 26 MMOL/L (21-32) Anion Gap 9 mmol/L (5-15) Blood Urea Nitrogen 19 mg/dL (7-18) H Creatinine 0.7 MG/DL (0.55-1.30) Estimat Glomerular Filtration Rate mL/min (>60) Glucose Level 197 MG/DL (74-106) H Calcium Level 8.3 MG/DL (8.5-10.1) L Total Bilirubin 0.5 MG/DL (0.2-1.0) Aspartate Amino Transf (AST/SGOT) 68 U/L (15-37) H Alanine Aminotransferase (ALT/SGPT) 50 U/L (12-78) Alkaline Phosphatase 265 U/L (46-116) H Total Protein 6.8 G/DL (6.4-8.2) Albumin 1.9 G/DL (3.4-5.0) L Globulin 4.9 g/dL Albumin/Globulin Ratio 0.4 (1.0-2.7) L Triglycerides Level 86 MG/DL (30-150) Cholesterol Level 191 MG/DL (< 200) LDL Cholesterol 136 mg/dL (<100) H HDL Cholesterol 38 MG/DL (40-60) L Cholesterol/HDL Ratio 5.0 (3.3-4.4) H Amylase Level 245 U/L (25-115) H Lipase 1299 U/L (73-393) H CA 19-9 Antigen Pending Intake and Output 09/06/19 09/07/19 19:00 07:00 Intake Total 60 ml 1065 ml Output Total 600 ml 1300 ml Balance -540 ml -235 ml Free Water 450 ml IV Total 375 ml Tube Feeding 60 ml 240 ml Output Urine Total 600 ml 1300 ml Objective PHYSICAL EXAMINATION: GENERAL: The patient is a well-developed and well-nourished male, who is essentially nonverbal. HEENT: Eyes, pupils equal and responsive to light and accommodation. Extraocular movements are intact. NECK: Supple without lymphadenopathy. CHEST: Lungs are clear to auscultation bilaterally without wheezes or rales. CARDIOVASCULAR: Regular rhythm and rate. S1, S2 normal without murmurs, rubs, or gallops. ABDOMEN: Soft, nontender, nondistended. Positive bowel sounds. No evidence of hepatosplenomegaly. Currently, no rebound or guarding noted. EXTREMITIES: Negative for clubbing, cyanosis, or edema. RECTAL: Not performed. GENITAL: Not performed. NEUROLOGIC: Cranial nerves II through XII are grossly intact without focal deficits. Assessment/Plan Assessment/Plan ASSESSMENT: This is a 78-year-old male with: 1. Altered mental status. 2. Fracture of the left femur greater trochanter. 3. Rhabdomyolysis. 4. Dehydration. 5. Diabetes type 2. 6. Hypertension. 7. Hypercholesterolemia. 8. Pancreatitis TREATMENT: 1. Altered mental status, this may be secondary to dehydration versus acute cerebrovascular accident. An MRI of the brain = no acute dis. 2. Fracture of the left femur greater trochanter. An Orthopedic consultation has been obtained with Dr. Frederic Weir. 3. Rhabdomyolysis. The patient is currently receiving intravenous fluids. 4. Dehydration. The patient is currently receiving intravenous fluids. 5. Diabetes type 2. A NovoLog sliding scale has been instituted. 6. Hypertension. Continue benazepril, hydrochlorothiazide as above. 7. Hypercholesterolemia. Continue pravastatin as above. 8. MRCP=normal-see GI consult 9. PEG possible Tello Cobb MD Sep 07, 2019 18:37
--- NOTE | 2019-09-07 18:45 | Surgery Progress Note ---
Surgery Progress Note Subjective Additional Comments despite improvement cognitively since admission still not safe for oral feeds and failed swallow pending bioethics eval for PEG discussed with GI tolerating tube feeds comfortable denies pain crosshatched Objective Last 24 Hour Vital Signs Date Time Temp Pulse Resp B/P (MAP) Pulse Ox O2 Delivery O2 Flow Rate FiO2 09/07/19 12:00 97.8 90 20 130/70 (90) 98 09/07/19 09:00 130/70 09/07/19 09:00 Room Air 09/07/19 08:00 98.0 98 18 133/65 (87) 99 09/07/19 04:00 98.6 106 18 130/60 (83) 98 09/07/19 00:00 98.2 105 18 124/64 (84) 99 09/06/19 21:15 99.9 09/06/19 21:10 99.9 09/06/19 21:00 Room Air 09/06/19 20:00 101.8 107 18 129/60 (83) 95 I&O Intake and Output 09/06/19 09/07/19 19:00 07:00 Intake Total 60 ml 1065 ml Output Total 600 ml 1300 ml Balance -540 ml -235 ml Free Water 450 ml IV Total 375 ml Tube Feeding 60 ml 240 ml Output Urine Total 600 ml 1300 ml Dressing: saturated Wound: other Drains: other Cardiovascular: RSR Respiratory: decreased breath sounds Abdomen: soft, present bowel sounds, non-distended Extremities: no cyanosis, other Laboratory Tests Test 09/07/19 06:20 White Blood Count 9.9 K/UL (4.8-10.8) Red Blood Count 4.24 M/UL (4.70-6.10) L Hemoglobin 11.9 G/DL (14.2-18.0) L Hematocrit 36.2 % (42.0-52.0) L Mean Corpuscular Volume 85 FL (80-99) Mean Corpuscular Hemoglobin 28.0 PG (27.0-31.0) Mean Corpuscular Hemoglobin Concent 32.8 G/DL (32.0-36.0) Red Cell Distribution Width 13.9 % (11.6-14.8) Platelet Count 511 K/UL (150-450) H Mean Platelet Volume 6.8 FL (6.5-10.1) Neutrophils (%) (Auto) 80.5 % (45.0-75.0) H Lymphocytes (%) (Auto) 14.8 % (20.0-45.0) L Monocytes (%) (Auto) 4.1 % (1.0-10.0) Eosinophils (%) (Auto) 0.0 % (0.0-3.0) Basophils (%) (Auto) 0.6 % (0.0-2.0) Sodium Level 138 MMOL/L (136-145) Potassium Level 5.4 MMOL/L (3.5-5.1) H Chloride Level 103 MMOL/L (98-107) Carbon Dioxide Level 26 MMOL/L (21-32) Anion Gap 9 mmol/L (5-15) Blood Urea Nitrogen 19 mg/dL (7-18) H Creatinine 0.7 MG/DL (0.55-1.30) Estimat Glomerular Filtration Rate mL/min (>60) Glucose Level 197 MG/DL (74-106) H Calcium Level 8.3 MG/DL (8.5-10.1) L Total Bilirubin 0.5 MG/DL (0.2-1.0) Aspartate Amino Transf (AST/SGOT) 68 U/L (15-37) H Alanine Aminotransferase (ALT/SGPT) 50 U/L (12-78) Alkaline Phosphatase 265 U/L (46-116) H Total Protein 6.8 G/DL (6.4-8.2) Albumin 1.9 G/DL (3.4-5.0) L Globulin 4.9 g/dL Albumin/Globulin Ratio 0.4 (1.0-2.7) L Triglycerides Level 86 MG/DL (30-150) Cholesterol Level 191 MG/DL (< 200) LDL Cholesterol 136 mg/dL (<100) H HDL Cholesterol 38 MG/DL (40-60) L Cholesterol/HDL Ratio 5.0 (3.3-4.4) H Amylase Level 245 U/L (25-115) H Lipase 1299 U/L (73-393) H CA 19-9 Antigen Pending Plan Problems: (1) Failure to thrive (2) Hip fracture, left Assessment & Plan: lucency noted on plain films no pain on exam repeat films ordered There is irregularity of the left greater trochanter indicative of a injury. This is probably an old fracture. However please correlate clinically. There is no fracture of the femoral neck or intertrochanteric region bilaterally. The bones are osteopenic. There is no malalignment of either hip identified. IMPRESSION: Irregularity of the left greater trochanter which may be indicative of a previous fracture. Doubt acute injury. However please correlate clinically. Generalized osteopenia (3) Severe protein-calorie malnutrition (4) Rhabdomyolysis (5) Acidosis (6) Adult Failure To Thrive Assessment & Plan: improving tube feeds failed swallow needs peg bioethics pending (7) Pressure Ulcer Of Sacral Region, Unstageable Assessment & Plan: 1) Dehydration Assessment & Plan: AMS, found down dehydration improved with IVF ICD Codes: E86.0 - Dehydration SNOMED: 43122855 (2) Failure to thrive SNOMED: 42128226 (3) Rhabdomyolysis Assessment & Plan: likely from being down IV fluids trending down - resolved will monitor ICD Codes: M62.82 - Rhabdomyolysis SNOMED: 232594708 (4) Blood blister Assessment & Plan: Patient presented with multiple DTI and Blood blisters Found down prior and noted on eval in ED at [facility]. Seen upon admission to [facility] Patient with 8.8cm x 9cm sacral DTI with oozing on right sacral with resorbing blood blister. periwound intact and stable. Right scapula DTI 9.9cm x 5cm purple and indurated without drainage Left thoracic DTI 1cm x 3.5cm purple and indurated without drainage bilateral heels stable and soft with blanching no other skin concerns noted at this time see below as changed Tx Plan: Monitor wounds for drainage. Will apply skin protectant and Optifoam dressings Daily and prn saturation Keep heels off loaded with pillows Air soft mattress Turn q2h Nutritional optimization Will follow with recs. ICD Codes: T14.8XXA - Other injury of unspecified body region, initial encounter SNOMED: 031995085 (5) Lactic acid acidosis Assessment & Plan: IV fluids resuscitation trend resolved ICD Codes: E87.2 - Acidosis SNOMED: 16056248 (6) Hip fracture, left Assessment & Plan: lucency noted on plain films no pain on exam repeat films ordered and noted ICD Codes: S72.002A - Fracture of unspecified part of neck of left femur, initial encounter for closed fracture SNOMED: 571435879 (7) Deep tissue injury ICD Codes: T14.8XXA - Other injury of unspecified body region, initial encounter SNOMED: 631518997 (8) Pancreatitis Assessment & Plan: arnaldo and lip improved MRI noted exam benign no complaints tolerating feeds given above cont with tube feeds. okay to advance to goal trend labs will monitor (9) Unstageable decubitus ulcer Assessment & Plan: Patient presented with multiple deep tissue injuries from being down for unknown period of time. Blood blisters were forming around some of these wounds. On ablation today bedside patient's sacral wound was noted blood pressure had resolved and underlying patient has now a unstageable sacral decubitus ulcer with the coccygeal area having a stage III open wound approximately 2 cm x 1 cm x 0.4 mm deep. Periwound is intact. Eschar noted and stable. No fluctuance. No significant tenderness on palpation. No drainage. No foul order. The area and complete is approximately 8 cm wide by 5 cm long Treatment plan changed. Recommend washing sacral decubitus ulcer daily with normal saline. Apply Thera honey impregnated gauze followed by up to foam dressing. Continue with standard decubitus precautions. will likely need debridement as he improves crosshatched James Breen Sep 07, 2019 18:45
--- NOTE | 2019-09-07 19:34 | NUR ---
HAND-OFF: Report given to FADY TURNER.
--- NOTE | 2019-09-07 19:44 | NUR ---
NURSE NOTES: Received patient comfortably sleeping, on bilateral soft wrist restraints. Kept clean and dry.
[2019-09-07 20:00] VITALS: BP 116/67
[2019-09-07] MEDS: Acetaminophen 650mg/20.3ml NG PRN (20:57)
[2019-09-08] VITALS: BP 110/58
[2019-09-08 04:00] VITALS: BP 130/64
[2019-09-08] MEDS: NovoLOG Insulin Flexpen SUBQ SCH ×4 (05:45→21:00)
[2019-09-08] MEDS: Heparin 5000 units/ml inj SUBQ SCH ×3 (05:45→22:00)
[2019-09-08 06:24] LABS: BASOPHILS % (AUTO) 0.8 % (0.0-2.0); HEMATOCRIT 34.6 % (42.0-52.0); LYMPHOCYTES % (AUTO) 14.7 % (20.0-45.0); MEAN CORPUSCULAR VOLUME 89 FL (80-99); NEUTROPHILS % (AUTO) 77.5 % (45.0-75.0); PLATELET COUNT 534 K/UL (150-450); RED BLOOD COUNT 3.89 M/UL (4.70-6.10); RED CELL DISTRIBUTION WIDTH 15.6 % (11.6-14.8); WHITE BLOOD COUNT 8.7 K/UL (4.8-10.8)
[2019-09-08 06:55] LABS: ANION GAP 6 mmol/L (5-15); BLOOD UREA NITROGEN 14 mg/dL (7-18); CALCIUM 8.1 MG/DL (8.5-10.1); CARBON DIOXIDE 29 MMOL/L (21-32); CHLORIDE 106 MMOL/L (98-107); CREATININE 0.9 MG/DL (0.55-1.30); SODIUM 141 MMOL/L (136-145)
--- NOTE | 2019-09-08 07:08 | NUR ---
HAND-OFF: Report given to Janeth Higgins RN.
[2019-09-08 08:00] VITALS: BP 136/64
--- NOTE | 2019-09-08 08:32 | NUR ---
NURSE NOTES: Patient opens eyes when name called,respirations unlabored.Adams catheter in place and draining ej color urine.N/G tube remains in place.patient is NPO for possible CT abdomen today.IV fluids infusing as ordered.Soft wrist restraints on with ROM given and skin care.Bed alarm is on,call light within reach.
[2019-09-08] MEDS: Levemir Flexpen SUBQ SCH (10:25)
--- NOTE | 2019-09-08 10:34 | GI Progress Note ---
Assessment/Plan Problems: (1) Pancreatitis ICD Codes: K85.90 - Acute pancreatitis without necrosis or infection, unspecified SNOMED: 62381318 (2) Acute encephalopathy ICD Codes: G93.40 - Encephalopathy, unspecified SNOMED: 08955765, 709044226 (3) Failure to thrive SNOMED: 30578343 (4) Severe protein-calorie malnutrition ICD Codes: E43 - Unspecified severe protein-calorie malnutrition SNOMED: 040586971, 592702571, 027798492 Status: unchanged Status Narrative Discussed with Dr. Smith. Assessment/Plan US reviewed, negative MRCP negative elevated lipase, downtrending lipid panel WNL NGTFs, plan for PEG if bioethics approves - NPO @ [place], will place tentatively for PEG. IV hydration repeat lipase levels The patient was seen and examined at bedside and all new and available data was reviewed in the patients chart. I agree with the above findings, impression and plan. (Patient seen earlier today. Signature stamp does not reflect patient encounter time.). - Alek Smith MD Subjective Subjective limited Objective Last 24 Hour Vital Signs Date Time Temp Pulse Resp B/P (MAP) Pulse Ox O2 Delivery O2 Flow Rate FiO2 09/08/19 08:00 98.2 100 20 136/64 (88) 98 09/08/19 04:00 98.9 99 20 130/64 (86) 96 09/08/19 00:00 99.3 89 20 110/58 (75) 98 09/07/19 21:27 99.0 09/07/19 20:12 Room Air 09/07/19 20:00 100.0 119 20 116/67 (83) 96 09/07/19 16:00 98.3 84 20 138/88 (105) 97 09/07/19 12:00 97.8 90 20 130/70 (90) 98 Intake and Output 09/07/19 09/08/19 19:00 07:00 Intake Total 450 ml 900 ml Output Total 800 ml 550 ml Balance -350 ml 350 ml IV Total 450 ml 900 ml Output Urine Total 800 ml 550 ml # Bowel Movements 1 Laboratory Tests Test 09/08/19 05:35 White Blood Count 8.7 K/UL (4.8-10.8) Red Blood Count 3.89 M/UL (4.70-6.10) L Hemoglobin 11.0 G/DL (14.2-18.0) L Hematocrit 34.6 % (42.0-52.0) L Mean Corpuscular Volume 89 FL (80-99) Mean Corpuscular Hemoglobin 28.4 PG (27.0-31.0) Mean Corpuscular Hemoglobin Concent 31.9 G/DL (32.0-36.0) L Red Cell Distribution Width 15.6 % (11.6-14.8) H Platelet Count 534 K/UL (150-450) H Mean Platelet Volume 7.7 FL (6.5-10.1) Neutrophils (%) (Auto) 77.5 % (45.0-75.0) H Lymphocytes (%) (Auto) 14.7 % (20.0-45.0) L Monocytes (%) (Auto) 7.0 % (1.0-10.0) Eosinophils (%) (Auto) 0.0 % (0.0-3.0) Basophils (%) (Auto) 0.8 % (0.0-2.0) Sodium Level 141 MMOL/L (136-145) Potassium Level 4.0 MMOL/L (3.5-5.1) Chloride Level 106 MMOL/L (98-107) Carbon Dioxide Level 29 MMOL/L (21-32) Anion Gap 6 mmol/L (5-15) Blood Urea Nitrogen 14 mg/dL (7-18) Creatinine 0.9 MG/DL (0.55-1.30) Estimat Glomerular Filtration Rate mL/min (>60) Glucose Level 154 MG/DL (74-106) H Calcium Level 8.1 MG/DL (8.5-10.1) L Lipase 808 U/L (73-393) H Height (Feet): 5 Height (Inches): 8.00 Weight (Pounds): 144 General Appearance: no apparent distress, thin Cardiovascular: normal rate Respiratory/Chest: no respiratory distress Mac [place] [employer] Sep 08, 2019 10:34
[2019-09-08] MEDS: Benazepril 10mg tab NG SCH (10:48)
[2019-09-08] MEDS: Aspirin Baby 81mg NG SCH (10:49)
--- NOTE | 2019-09-08 11:42 | NUR ---
NURSE NOTES: N/G tube feedings resumed as ordered.N/G checked by auscultation.HOB is elevated.
[2019-09-08 12:00] VITALS: BP 137/66
--- NOTE | 2019-09-08 12:37 | Pulmonology Progress Note ---
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 Subjective ROS Limited/Unobtainable: No Interval Events: more awake Allergies: Coded Allergies: No Known Allergies (Unverified , 08/27/19) Objective Last 24 Hour Vital Signs Date Time Temp Pulse Resp B/P (MAP) Pulse Ox O2 Delivery O2 Flow Rate FiO2 09/08/19 12:00 97.2 91 18 137/66 (89) 100 09/08/19 10:48 130/69 09/08/19 10:33 104 130/69 09/08/19 09:00 Room Air 09/08/19 08:00 98.2 100 20 136/64 (88) 98 09/08/19 04:00 98.9 99 20 130/64 (86) 96 09/08/19 00:00 99.3 89 20 110/58 (75) 98 09/07/19 21:27 99.0 09/07/19 20:12 Room Air 09/07/19 20:00 100.0 119 20 116/67 (83) 96 09/07/19 16:00 98.3 84 20 138/88 (105) 97 Intake and Output 09/07/19 09/08/19 18:59 06:59 Intake Total 375 ml 900 ml Output Total 800 ml 550 ml Balance -425 ml 350 ml IV Total 375 ml 900 ml Output Urine Total 800 ml 550 ml # Bowel Movements 1 Objective still has ng tube General Appearance: cachetic HEENT: normocephalic, atraumatic Respiratory/Chest: chest wall non-tender, normal breath sounds Cardiovascular: normal rate, regular rhythm Abdomen: normal bowel sounds, soft, non tender Genitourinary: normal external genitalia Extremities: no cyanosis Skin: no rash, no lesions Laboratory Tests 09/08/19 05:35: White Blood Count 8.7, Red Blood Count 3.89L, Hemoglobin 11.0L, Hematocrit 34.6L , Mean Corpuscular Volume 89, Mean Corpuscular Hemoglobin 28.4, Mean Corpuscular Hemoglobin Concent 31.9L, Red Cell Distribution Width 15.6H, Platelet Count 534H, Mean Platelet Volume 7.7, Neutrophils (%) (Auto) 77.5H, Lymphocytes (%) (Auto) 14.7L, Monocytes (%) (Auto) 7.0, Eosinophils (%) (Auto) 0.0, Basophils (%) (Auto) 0.8, Sodium Level 141, Potassium Level 4.0, Chloride Level 106, Carbon Dioxide Level 29, Anion Gap 6, Blood Urea Nitrogen 14, Creatinine 0.9, Estimat Glomerular Filtration Rate , Glucose Level 154H, Calcium Level 8.1L, Lipase 808H Current Medications Medications (Trade) Dose Ordered Sig/Debi Route PRN Reason Start Time Stop Time Status Last Admin Dose Admin Acetaminophen (Tylenol) 650 mg Q4H PRN RECTAL Prn Headache/Temp > 101 08/27/19 12:00 09/26/19 11:59 08/29/19 00:34 Acetaminophen (Tylenol) 650 mg Q6H PRN NG Mild Pain/Temp > 100.5 09/03/19 10:30 09/26/19 01:59 09/07/19 20:57 Amlodipine Besylate (Norvasc) 10 mg DAILY NG 09/03/19 11:00 10/03/19 10:59 09/08/19 10:33 Aspirin (ASA) 81 mg DAILY NG 09/03/19 11:00 09/26/19 08:59 09/08/19 10:49 Benazepril HCl (Lotensin) 10 mg DAILY NG 09/03/19 11:00 10/03/19 10:59 09/08/19 10:48 Dextrose (Dextrose 50%) 25 ml Q30M PRN IV Hypoglycemia 08/27/19 15:15 09/26/19 15:14 Dextrose (Dextrose 50%) 50 ml Q30M PRN IV Hypoglycemia 08/27/19 15:15 09/26/19 15:14 Heparin Sodium (Porcine) (Heparin 5000 units/ml) 5,000 units EVERY 8 HOURS SUBQ 08/27/19 06:00 09/26/19 05:59 09/08/19 05:45 Insulin Aspart (NovoLOG) BEFORE MEALS AND HS SUBQ 08/29/19 11:30 09/28/19 11:29 09/08/19 12:24 Insulin Detemir (Levemir) 6 units DAILY SUBQ 08/30/19 12:00 09/29/19 11:59 09/08/19 10:25 Morphine Sulfate (Morphine Sulfate) 2 mg Q4H PRN IVP For Pain 09/05/19 11:45 09/12/19 11:44 Sodium Chloride 1,000 ml @ 75 mls/hr [id number] IV 09/06/19 14:15 10/06/19 14:14 09/07/19 20:57 Latanya Mckeon MD Sep 08, 2019 12:37
--- NOTE | 2019-09-08 14:43 | NUR ---
RD ASSESSMENT & RECOMMENDATIONS SEE CARE ACTIVITY FOR COMPLETE ASSESSMENT DAILY ESTIMATED NEEDS: Needs based on Wounds, DM/ 57.6kg 25-35 kcals/kg 0230-9896 total kcals 1.25-2 g protein/kg 72-115 g total protein 25-30 mL/kg 8668-7288 total fluid mLs NUTRITION DIAGNOSIS: * Swallowing difficulty R/T dysphagia, AMS as evidenced by s/p NGT insertion, pt to be on nonoral feeding at this time. * Increased kcal/prot needs R/T wound healing as evidenced by pt admitted w/ DTI wounds at sacrum, R scapula, and L thoracic, refer to WC eval. (CURRENT TF: Glucerna 1.2 @ 60ml/hr x 24 hrs) PO DIET RECOMMENDATIONS: WHEN SAFE FOR ORAL DIET-> CCHO MED/ texture per PROSPECT MANAGER + Glucerna TID w/ meals ENTERAL NUTRITION RECOMMENDATIONS: Glucerna 1.2 @ 60ml/hr x 24 hrs + Prosource qdaily to provide 1440ml, 1728kcal, 86g + 11g prot, 1159ml free water * Maintain current TF @ goal * HOB over 30 degrees * Without IVF, rec H20 flush of 150ml q 6hrs * Add Prosource x1 pack daily to better meet est pro needs ADDITIONAL RECOMMENDATIONS: * Calibrated bedscale wt for accurate CBW * Monitor lytes daily w/ TF, replete as needed * Pt may require increase in insulin regimen for improved BG * Wound healing: Add Vit C 250mg QD+ ZnSO4 220mg QD x 10 days Terrance 1pkt BID + Prosource x1 daily * Monitor for possible oral diet initiation- pending eval .
--- NOTE | 2019-09-08 15:29 | Diagnostic Imaging Report ---
Indication: Dysphagia Procedure and findings: A single steam tank operator fluoroscopic image of the neck performed in the lateral projection followed by real-time fluoroscopic video/cine imaging performed in a lateral projection in conjunction with the speech pathologist evaluation. Variable consistencies of barium given per mouth. Findings: Significant abnormalities of both oral and pharyngeal phases of swallowing are demonstrated. Total fluoroscopic time: 60 seconds. Total number of fluoroscopic images obtained: 4 The study is limited and unable to assess adequately. Abnormal video swallow. Please refer to speech pathology evaluation for more information.
[2019-09-08 16:46] VITALS: BP 117/68
[2019-09-08] MEDS: Acetaminophen 650mg/20.3ml NG PRN (17:27)
--- NOTE | 2019-09-08 17:30 | NUR ---
NURSE NOTES: Tylenol 650 mg viia N/G tube given for temp axillary of 101.6,cooling measures given,turned and position,will monitor.
--- NOTE | 2019-09-08 17:58 | Internal Med Progress Note ---
Subjective Date of Service: Sep 08, 2019 Physician Name Tello Cobb Attending Physician Cirilo Rome MD Current Medications Medications (Trade) Dose Ordered Sig/Debi Route PRN Reason Start Time Stop Time Status Last Admin Dose Admin Acetaminophen (Tylenol) 650 mg Q4H PRN RECTAL Prn Headache/Temp > 101 08/27/19 12:00 09/26/19 11:59 08/29/19 00:34 Acetaminophen (Tylenol) 650 mg Q6H PRN NG Mild Pain/Temp > 100.5 09/03/19 10:30 09/26/19 01:59 09/08/19 17:27 Amlodipine Besylate (Norvasc) 10 mg DAILY NG 09/03/19 11:00 10/03/19 10:59 09/08/19 10:33 Aspirin (ASA) 81 mg DAILY NG 09/03/19 11:00 09/26/19 08:59 09/08/19 10:49 Benazepril HCl (Lotensin) 10 mg DAILY NG 09/03/19 11:00 10/03/19 10:59 09/08/19 10:48 Cefoxitin Sodium 1 gm/Dextrose 55 ml @ 110 mls/hr ONCE PRN IV on-call to GI lab 09/09/19 08:00 09/10/19 07:59 Dextrose (Dextrose 50%) 25 ml Q30M PRN IV Hypoglycemia 08/27/19 15:15 09/26/19 15:14 Dextrose (Dextrose 50%) 50 ml Q30M PRN IV Hypoglycemia 08/27/19 15:15 09/26/19 15:14 Heparin Sodium (Porcine) (Heparin 5000 units/ml) 5,000 units EVERY 8 HOURS SUBQ 08/27/19 06:00 09/26/19 05:59 09/08/19 14:46 Insulin Aspart (NovoLOG) BEFORE MEALS AND HS SUBQ 08/29/19 11:30 09/28/19 11:29 09/08/19 12:24 Insulin Detemir (Levemir) 6 units DAILY SUBQ 08/30/19 12:00 09/29/19 11:59 09/08/19 10:25 Morphine Sulfate (Morphine Sulfate) 2 mg Q4H PRN IVP For Pain 09/05/19 11:45 09/12/19 11:44 Sodium Chloride 1,000 ml @ 75 mls/hr [id number] IV 09/06/19 14:15 10/06/19 14:14 09/07/19 20:57 Allergies: Coded Allergies: No Known Allergies (Unverified , 08/27/19) ROS Limited/Unobtainable: Yes Subjective 78 YO M admitted with altered mental status. Now rhabdomyolysis and pancreatitis. Cover for Int Dusty-Dr Roem Objective Last Vital Signs Date Time Temp Pulse Resp B/P (MAP) Pulse Ox O2 Delivery O2 Flow Rate FiO2 09/08/19 16:46 101.2 116 20 117/68 (84) 97 09/08/19 09:00 Room Air 09/02/19 22:12 21 Laboratory Tests Test 09/08/19 05:35 White Blood Count 8.7 K/UL (4.8-10.8) Red Blood Count 3.89 M/UL (4.70-6.10) L Hemoglobin 11.0 G/DL (14.2-18.0) L Hematocrit 34.6 % (42.0-52.0) L Mean Corpuscular Volume 89 FL (80-99) Mean Corpuscular Hemoglobin 28.4 PG (27.0-31.0) Mean Corpuscular Hemoglobin Concent 31.9 G/DL (32.0-36.0) L Red Cell Distribution Width 15.6 % (11.6-14.8) H Platelet Count 534 K/UL (150-450) H Mean Platelet Volume 7.7 FL (6.5-10.1) Neutrophils (%) (Auto) 77.5 % (45.0-75.0) H Lymphocytes (%) (Auto) 14.7 % (20.0-45.0) L Monocytes (%) (Auto) 7.0 % (1.0-10.0) Eosinophils (%) (Auto) 0.0 % (0.0-3.0) Basophils (%) (Auto) 0.8 % (0.0-2.0) Sodium Level 141 MMOL/L (136-145) Potassium Level 4.0 MMOL/L (3.5-5.1) Chloride Level 106 MMOL/L (98-107) Carbon Dioxide Level 29 MMOL/L (21-32) Anion Gap 6 mmol/L (5-15) Blood Urea Nitrogen 14 mg/dL (7-18) Creatinine 0.9 MG/DL (0.55-1.30) Estimat Glomerular Filtration Rate mL/min (>60) Glucose Level 154 MG/DL (74-106) H Calcium Level 8.1 MG/DL (8.5-10.1) L Lipase 808 U/L (73-393) H Intake and Output 09/07/19 09/08/19 18:59 06:59 Intake Total 375 ml 900 ml Output Total 800 ml 550 ml Balance -425 ml 350 ml IV Total 375 ml 900 ml Output Urine Total 800 ml 550 ml # Bowel Movements 1 Objective PHYSICAL EXAMINATION: GENERAL: The patient is a well-developed and well-nourished male, who is essentially nonverbal. HEENT: Eyes, pupils equal and responsive to light and accommodation. Extraocular movements are intact. NECK: Supple without lymphadenopathy. CHEST: Lungs are clear to auscultation bilaterally without wheezes or rales. CARDIOVASCULAR: Regular rhythm and rate. S1, S2 normal without murmurs, rubs, or gallops. ABDOMEN: Soft, nontender, nondistended. Positive bowel sounds. No evidence of hepatosplenomegaly. Currently, no rebound or guarding noted. EXTREMITIES: Negative for clubbing, cyanosis, or edema. RECTAL: Not performed. GENITAL: Not performed. NEUROLOGIC: Cranial nerves II through XII are grossly intact without focal deficits. Assessment/Plan Assessment/Plan ASSESSMENT: This is a 78-year-old male with: 1. Altered mental status. 2. Fracture of the left femur greater trochanter. 3. Rhabdomyolysis. 4. Dehydration. 5. Diabetes type 2. 6. Hypertension. 7. Hypercholesterolemia. 8. Pancreatitis TREATMENT: 1. Altered mental status, this may be secondary to dehydration versus acute cerebrovascular accident. An MRI of the brain = no acute dis. 2. Fracture of the left femur greater trochanter. An Orthopedic consultation has been obtained with Dr. Frederic Weir. 3. Rhabdomyolysis. The patient is currently receiving intravenous fluids. 4. Dehydration. The patient is currently receiving intravenous fluids. 5. Diabetes type 2. A NovoLog sliding scale has been instituted. 6. Hypertension. Continue benazepril, hydrochlorothiazide as above. 7. Hypercholesterolemia. Continue pravastatin as above. 8. MRCP=normal-see GI consult 9. PEG possible Tello Cobb MD Sep 08, 2019 17:58
--- NOTE | 2019-09-08 19:30 | NUR ---
NURSE NOTES: Received patient in bed. Patient is non-verbal. NG tube in place and patent, running at 60 mL/hr. IV site in Left forearm intact and running at 75 mL/hr. F/c in place and draining. No signs of pain noted at this time.
--- NOTE | 2019-09-08 19:40 | NUR ---
HAND-OFF: Report given to Belkys TURNER
[2019-09-08 20:00] VITALS: BP 128/62
--- NOTE | 2019-09-08 21:07 | NUR ---
NURSE NOTES: Axillary temperature now 100.5,continue with cooling measures.Soft wrist restraints on,bed alarm on.Call light within reah. Addendum: 09/08/19 at 2117 by JOSELITO MARTÍNEZ RN RN JOHNNY Note for [id number]
[2019-09-09] VITALS (10 sets, daily range): BP systolic 90–147; BP diastolic 57–72
[2019-09-09] MEDS: Heparin 5000 units/ml inj SUBQ SCH ×3 (05:00→20:53)
[2019-09-09 05:09] LABS: BASOPHILS % (AUTO) 0.5 % (0.0-2.0); EOSINOPHILS % (AUTO) 0.3 % (0.0-3.0); HEMATOCRIT 31.9 % (42.0-52.0); LYMPHOCYTES % (AUTO) 11.1 % (20.0-45.0); MEAN CORPUSCULAR VOLUME 87 FL (80-99); MONOCYTES % (AUTO) 7.1 % (1.0-10.0); NEUTROPHILS % (AUTO) 80.9 % (45.0-75.0); PLATELET COUNT 472 K/UL (150-450); RED BLOOD COUNT 3.65 M/UL (4.70-6.10)
[2019-09-09 05:51] LABS: ANION GAP 7 mmol/L (5-15); BLOOD UREA NITROGEN 15 mg/dL (7-18); CALCIUM 7.8 MG/DL (8.5-10.1); CARBON DIOXIDE 26 MMOL/L (21-32); CHLORIDE 109 MMOL/L (98-107); CREATININE 0.7 MG/DL (0.55-1.30); POTASSIUM 3.7 MMOL/L (3.5-5.1); SODIUM 142 MMOL/L (136-145)
[2019-09-09] MEDS: NovoLOG Insulin Flexpen SUBQ SCH ×4 (05:52→20:54)
--- NOTE | 2019-09-09 07:42 | NUR ---
HAND-OFF: Report given to Bentley TURNER.
[2019-09-09] MEDS ORDERED: cefOXitin Sod 1 GM in D5W 55 ML IV PRN (08:00)
[2019-09-09] MEDS: Levemir Flexpen SUBQ SCH ×2 (09:00→09:09)
[2019-09-09] MEDS: Aspirin Baby 81mg NG SCH (09:03)
[2019-09-09] MEDS: Acetaminophen 650mg/20.3ml NG PRN ×2 (09:04→20:54)
[2019-09-09] MEDS: Benazepril 10mg tab NG SCH (09:07)
--- NOTE | 2019-09-09 12:06 | Pre-Procedure Note/Attestation ---
Pre-Procedure Note/Attestation Complete Prior to Procedure Planned Procedure: not applicable Procedure Narrative: egd/peg Indications for Procedure Pre-Operative Diagnosis: dysphagia Attestation I attest that I discussed the nature of the procedure; its benefits; risks and complications; and alternatives (and the risks and benefits of such alternatives ), prior to the procedure, with the patient (or the patient's legal telemarketing representative). I attest that, if there was a reasonable possibility of needing a blood transfusion, the patient (or the patient's legal telemarketing representative) was given the [facility] standardized written summary, pursuant to the Osman Gladys Blood Safety Act ([place] Health and Safety Code # 1645, as amended). I attest that I re-evaluated the patient just prior to the surgery and that there has been no change in the patient's H&P, except as documented below: Alek Smith MD Sep 09, 2019 12:06
--- NOTE | 2019-09-09 12:13 | Internal Med Progress Note ---
Subjective Date of Service: Sep 09, 2019 Physician Name Tello Cobb Attending Physician Cirilo Rome MD Current Medications Medications (Trade) Dose Ordered Sig/Debi Route PRN Reason Start Time Stop Time Status Last Admin Dose Admin Acetaminophen (Tylenol) 650 mg Q4H PRN RECTAL Prn Headache/Temp > 101 08/27/19 12:00 09/26/19 11:59 08/29/19 00:34 Acetaminophen (Tylenol) 650 mg Q6H PRN NG Mild Pain/Temp > 100.5 09/03/19 10:30 09/26/19 01:59 09/09/19 09:04 Amlodipine Besylate (Norvasc) 10 mg DAILY NG 09/03/19 11:00 10/03/19 10:59 09/09/19 09:06 Aspirin (ASA) 81 mg DAILY NG 09/03/19 11:00 09/26/19 08:59 09/09/19 09:03 Benazepril HCl (Lotensin) 10 mg DAILY NG 09/03/19 11:00 10/03/19 10:59 09/09/19 09:07 Cefoxitin Sodium 1 gm/Dextrose 55 ml @ 110 mls/hr ONCE PRN IV on-call to GI lab 09/09/19 08:00 09/10/19 07:59 Dextrose (Dextrose 50%) 25 ml Q30M PRN IV Hypoglycemia 08/27/19 15:15 09/26/19 15:14 Dextrose (Dextrose 50%) 50 ml Q30M PRN IV Hypoglycemia 08/27/19 15:15 09/26/19 15:14 Heparin Sodium (Porcine) (Heparin 5000 units/ml) 5,000 units EVERY 8 HOURS SUBQ 08/27/19 06:00 09/26/19 05:59 09/08/19 14:46 Insulin Aspart (NovoLOG) BEFORE MEALS AND HS SUBQ 08/29/19 11:30 09/28/19 11:29 09/09/19 11:53 Insulin Detemir (Levemir) 6 units DAILY SUBQ 08/30/19 12:00 09/29/19 11:59 09/08/19 10:25 Morphine Sulfate (Morphine Sulfate) 2 mg Q4H PRN IVP For Pain 09/05/19 11:45 09/12/19 11:44 Sodium Chloride 1,000 ml @ 75 mls/hr [id number] IV 09/06/19 14:15 10/06/19 14:14 09/09/19 05:51 Allergies: Coded Allergies: No Known Allergies (Unverified , 08/27/19) ROS Limited/Unobtainable: Yes Subjective 78 YO M admitted with altered mental status. Now rhabdomyolysis and pancreatitis. Cover for Int Dusty-Dr Rome Objective Last Vital Signs Date Time Temp Pulse Resp B/P (MAP) Pulse Ox O2 Delivery O2 Flow Rate FiO2 09/09/19 09:34 99.0 09/09/19 09:07 132/67 09/09/19 09:06 99 09/09/19 09:00 Room Air 09/09/19 07:37 18 98 09/02/19 22:12 21 Laboratory Tests Test 09/09/19 04:39 White Blood Count 7.0 K/UL (4.8-10.8) Red Blood Count 3.65 M/UL (4.70-6.10) L Hemoglobin 10.0 G/DL (14.2-18.0) L Hematocrit 31.9 % (42.0-52.0) L Mean Corpuscular Volume 87 FL (80-99) Mean Corpuscular Hemoglobin 27.4 PG (27.0-31.0) Mean Corpuscular Hemoglobin Concent 31.4 G/DL (32.0-36.0) L Red Cell Distribution Width 15.0 % (11.6-14.8) H Platelet Count 472 K/UL (150-450) H Mean Platelet Volume 6.3 FL (6.5-10.1) L Neutrophils (%) (Auto) 80.9 % (45.0-75.0) H Lymphocytes (%) (Auto) 11.1 % (20.0-45.0) L Monocytes (%) (Auto) 7.1 % (1.0-10.0) Eosinophils (%) (Auto) 0.3 % (0.0-3.0) Basophils (%) (Auto) 0.5 % (0.0-2.0) Prothrombin Time 10.4 SEC (9.30-11.50) Prothromb Time International Ratio 1.0 (0.9-1.1) Activated Partial Thromboplast Time 30 SEC (23-33) Sodium Level 142 MMOL/L (136-145) Potassium Level 3.7 MMOL/L (3.5-5.1) Chloride Level 109 MMOL/L (98-107) H Carbon Dioxide Level 26 MMOL/L (21-32) Anion Gap 7 mmol/L (5-15) Blood Urea Nitrogen 15 mg/dL (7-18) Creatinine 0.7 MG/DL (0.55-1.30) Estimat Glomerular Filtration Rate mL/min (>60) Glucose Level 151 MG/DL (74-106) H Calcium Level 7.8 MG/DL (8.5-10.1) L Phosphorus Level 2.0 MG/DL (2.5-4.9) L Magnesium Level 1.8 MG/DL (1.8-2.4) Intake and Output 09/08/19 09/09/19 19:00 07:00 Intake Total 810 ml 1125 ml Output Total 550 ml 600 ml Balance 260 ml 525 ml Free Water 150 ml IV Total 300 ml 825 ml Tube Feeding 360 ml 300 ml Output Urine Total 550 ml 600 ml # Voids 1 Objective PHYSICAL EXAMINATION: GENERAL: The patient is a well-developed and well-nourished male, who is essentially nonverbal. HEENT: Eyes, pupils equal and responsive to light and accommodation. Extraocular movements are intact. NECK: Supple without lymphadenopathy. CHEST: Lungs are clear to auscultation bilaterally without wheezes or rales. CARDIOVASCULAR: Regular rhythm and rate. S1, S2 normal without murmurs, rubs, or gallops. ABDOMEN: Soft, nontender, nondistended. Positive bowel sounds. No evidence of hepatosplenomegaly. Currently, no rebound or guarding noted. EXTREMITIES: Negative for clubbing, cyanosis, or edema. RECTAL: Not performed. GENITAL: Not performed. NEUROLOGIC: Cranial nerves II through XII are grossly intact without focal deficits. Assessment/Plan Assessment/Plan ASSESSMENT: This is a 78-year-old male with: 1. Altered mental status/encephalopathy 2. Fracture of the left femur greater trochanter. 3. Rhabdomyolysis. 4. Dehydration. 5. Diabetes type 2. 6. Hypertension. 7. Hypercholesterolemia. 8. Pancreatitis TREATMENT: 1. Altered mental status, this may be secondary to dehydration versus acute cerebrovascular accident. An MRI of the brain = no acute dis. 2. Fracture of the left femur greater trochanter. An Orthopedic consultation has been obtained with Dr. Frederic Weir. 3. Rhabdomyolysis. The patient is currently receiving intravenous fluids. 4. Dehydration. The patient is currently receiving intravenous fluids. 5. Diabetes type 2. A NovoLog sliding scale has been instituted. 6. Hypertension. Continue benazepril, hydrochlorothiazide as above. 7. Hypercholesterolemia. Continue pravastatin as above. 8. MRCP=normal-see GI consult 9. await possible PEG Tello Cobb MD Sep 09, 2019 12:13
--- NOTE | 2019-09-09 12:55 | Pulmonology Progress Note ---
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 Subjective ROS Limited/Unobtainable: No Constitutional: Reports: no symptoms HEENT: Repors: no symptoms Allergies: Coded Allergies: No Known Allergies (Unverified , 08/27/19) Objective Last 24 Hour Vital Signs Date Time Temp Pulse Resp B/P (MAP) Pulse Ox O2 Delivery O2 Flow Rate FiO2 09/09/19 12:28 98.4 90 18 110/62 (78) 98 09/09/19 10:00 99.0 09/09/19 09:34 99.0 09/09/19 09:07 132/67 09/09/19 09:06 99 132/67 09/09/19 09:00 Room Air 09/09/19 07:37 102.2 102 18 132/69 (90) 98 09/09/19 04:00 98.6 105 18 134/71 (92) 96 09/09/19 00:00 99.7 109 18 147/65 (92) 97 09/08/19 21:00 Room Air 09/08/19 20:00 98.2 119 18 128/62 (84) 99 09/08/19 16:46 101.2 116 20 117/68 (84) 97 Intake and Output 09/08/19 09/09/19 19:00 07:00 Intake Total 810 ml 1125 ml Output Total 550 ml 600 ml Balance 260 ml 525 ml Free Water 150 ml IV Total 300 ml 825 ml Tube Feeding 360 ml 300 ml Output Urine Total 550 ml 600 ml # Voids 1 Objective still has ng tube General Appearance: cachetic HEENT: normocephalic, atraumatic Respiratory/Chest: chest wall non-tender, normal breath sounds Cardiovascular: normal rate, regular rhythm Abdomen: normal bowel sounds, soft, non tender Genitourinary: normal external genitalia Extremities: no cyanosis Skin: no rash, no lesions General Appearance: no acute distress HEENT: atraumatic Respiratory/Chest: chest wall non-tender, lungs clear Cardiovascular: normal peripheral pulses, normal rate Abdomen: normal bowel sounds, soft, non tender Genitourinary: normal external genitalia Neurologic/Psychiatric: brand protection manager II-XII grossly normal Lymphatic: no neck adenopathy Laboratory Tests 09/09/19 04:39: White Blood Count 7.0, Red Blood Count 3.65L, Hemoglobin 10.0L, Hematocrit 31.9L , Mean Corpuscular Volume 87, Mean Corpuscular Hemoglobin 27.4, Mean Corpuscular Hemoglobin Concent 31.4L, Red Cell Distribution Width 15.0H, Platelet Count 472H, Mean Platelet Volume 6.3L, Neutrophils (%) (Auto) 80.9H, Lymphocytes (%) (Auto) 11.1L, Monocytes (%) (Auto) 7.1, Eosinophils (%) (Auto) 0.3, Basophils (%) (Auto) 0.5, Prothrombin Time 10.4, Prothromb Time International Ratio 1.0, Activated Partial Thromboplast Time 30, Sodium Level 142, Potassium Level 3.7, Chloride Level 109H, Carbon Dioxide Level 26, Anion Gap 7, Blood Urea Nitrogen 15, Creatinine 0.7, Estimat Glomerular Filtration Rate , Glucose Level 151H, Calcium Level 7.8L, Phosphorus Level 2.0L, Magnesium Level 1.8 Current Medications Medications (Trade) Dose Ordered Sig/Debi Route PRN Reason Start Time Stop Time Status Last Admin Dose Admin Acetaminophen (Tylenol) 650 mg Q4H PRN RECTAL Prn Headache/Temp > 101 08/27/19 12:00 09/26/19 11:59 08/29/19 00:34 Acetaminophen (Tylenol) 650 mg Q6H PRN NG Mild Pain/Temp > 100.5 09/03/19 10:30 09/26/19 01:59 09/09/19 09:04 Amlodipine Besylate (Norvasc) 10 mg DAILY NG 09/03/19 11:00 10/03/19 10:59 09/09/19 09:06 Aspirin (ASA) 81 mg DAILY NG 09/03/19 11:00 09/26/19 08:59 09/09/19 09:03 Benazepril HCl (Lotensin) 10 mg DAILY NG 09/03/19 11:00 10/03/19 10:59 09/09/19 09:07 Cefoxitin Sodium 1 gm/Dextrose 55 ml @ 110 mls/hr ONCE PRN IV on-call to GI lab 09/09/19 08:00 09/10/19 07:59 Dextrose (Dextrose 50%) 25 ml Q30M PRN IV Hypoglycemia 08/27/19 15:15 09/26/19 15:14 Dextrose (Dextrose 50%) 50 ml Q30M PRN IV Hypoglycemia 08/27/19 15:15 09/26/19 15:14 Heparin Sodium (Porcine) (Heparin 5000 units/ml) 5,000 units EVERY 8 HOURS SUBQ 08/27/19 06:00 09/26/19 05:59 09/08/19 14:46 Insulin Aspart (NovoLOG) BEFORE MEALS AND HS SUBQ 08/29/19 11:30 09/28/19 11:29 09/09/19 11:53 Insulin Detemir (Levemir) 6 units DAILY SUBQ 08/30/19 12:00 09/29/19 11:59 09/08/19 10:25 Morphine Sulfate (Morphine Sulfate) 2 mg Q4H PRN IVP For Pain 09/05/19 11:45 09/12/19 11:44 Sodium Chloride 1,000 ml @ 75 mls/hr [id number] IV 09/06/19 14:15 10/06/19 14:14 09/09/19 05:51 Latanya Mckeon MD Sep 09, 2019 12:55
[2019-09-09] MEDS ORDERED: Lidocaine 1% MPF 10mg/ml 5ml ONE (13:00)
[2019-09-09] MEDS ORDERED: NS 500ML IVPB ONE (13:00)
[2019-09-09] MEDS ORDERED: Propofol 200mg/20ml IV ONE (13:00)
[2019-09-09] MEDS ORDERED: LR 1000ml ONE (13:00)
--- NOTE | 2019-09-09 13:01 | Endoscopy Procedure Note ---
Endoscopy Procedure Note General Indication for Procedure: dysphagia Procedures Performed: EGD, PEG Operative Findings/Diagnosis: same Specimen: none Pt Tolerated Procedure Well: Yes Estimated Blood Loss: none Anesthesia Anesthesiologist: oni Anesthesia: MAC Inserted Devices Implant(s) used?: No GI Core Measures 50 yrs or older w/o bx or poly: Not Applicable 10yrs. F/U recommended: Not Applicable Alek Smith MD Sep 09, 2019 13:01
--- NOTE | 2019-09-09 13:02 | NUR ---
NURSE NOTES: pt taken down for peg tube. pt left in stable condition. no distress. ngt in place.
[2019-09-09] MEDS ORDERED: cefOXitin 1gm Inj ONE (13:03)
--- NOTE | 2019-09-09 14:55 | NUR ---
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 98.0 HR 104 RR 14 B/P 98/57 3L NC IS: IVF NS @ 75ML/HR CEFOXITIN IV HEPARIN SUBC MED/SURG STATUS
[2019-09-09] MEDS ORDERED: D5NS 1000ml IV ONE (16:16)
[2019-09-09] MEDS ORDERED: D5 1/2NS 1000ml IV ONE (16:16)
--- NOTE | 2019-09-09 18:30 | NUR ---
NURSE NOTES: patient returned from surgery. peg tube in place. dressing changed. glucernin 1.2 25 mL/hr, will monitor patient. patient stable, alert, writs restraints on, bed in lowest position. will continue to monitor patient.
--- NOTE | 2019-09-09 18:46 | NUR ---
NURSE NOTES: patient stable, wrist restraints in place, bilateral forearms no edema, good circulation. glucerna 1.2 running at 35 mL/hr,HOB elevated peg tube flushes with no residual, no n/v. Bed in lowest position, locked. Will continue to monitor.
--- NOTE | 2019-09-09 19:16 | Surgery Progress Note ---
Surgery Progress Note Subjective Additional Comments Patient seen examined bedside. Comfortable appearing. No complaints. Now has PEG tube and is comfortable. Tolerating feeds. Objective Last 24 Hour Vital Signs Date Time Temp Pulse Resp B/P (MAP) Pulse Ox O2 Delivery O2 Flow Rate FiO2 09/09/19 15:55 98.4 92 18 122/62 (82) 98 09/09/19 13:40 98.0 96 18 109/67 100 Nasal Cannula 3 09/09/19 13:34 102 19 98/67 100 Nasal Cannula 3 09/09/19 13:29 101 14 98/57 100 Nasal Cannula 3 09/09/19 13:24 97.8 104 14 90/57 100 Nasal Cannula 3 09/09/19 12:28 98.4 90 18 110/62 (78) 98 09/09/19 10:00 99.0 09/09/19 09:34 99.0 09/09/19 09:07 132/67 09/09/19 09:06 99 132/67 09/09/19 09:00 Room Air 09/09/19 07:37 102.2 102 18 132/69 (90) 98 09/09/19 04:00 98.6 105 18 134/71 (92) 96 09/09/19 00:00 99.7 109 18 147/65 (92) 97 09/08/19 21:00 Room Air 09/08/19 20:00 98.2 119 18 128/62 (84) 99 I&O Intake and Output 09/08/19 09/09/19 18:59 06:59 Intake Total 825 ml 1185 ml Output Total 550 ml 600 ml Balance 275 ml 585 ml Free Water 150 ml IV Total 375 ml 825 ml Tube Feeding 300 ml 360 ml Output Urine Total 550 ml 600 ml # Voids 1 Dressing: other Wound: other Drains: other Cardiovascular: RSR Respiratory: decreased breath sounds Abdomen: soft, tenderness, present bowel sounds, non-distended Extremities: no tenderness, no cyanosis, other Laboratory Tests Test 09/09/19 04:39 White Blood Count 7.0 K/UL (4.8-10.8) Red Blood Count 3.65 M/UL (4.70-6.10) L Hemoglobin 10.0 G/DL (14.2-18.0) L Hematocrit 31.9 % (42.0-52.0) L Mean Corpuscular Volume 87 FL (80-99) Mean Corpuscular Hemoglobin 27.4 PG (27.0-31.0) Mean Corpuscular Hemoglobin Concent 31.4 G/DL (32.0-36.0) L Red Cell Distribution Width 15.0 % (11.6-14.8) H Platelet Count 472 K/UL (150-450) H Mean Platelet Volume 6.3 FL (6.5-10.1) L Neutrophils (%) (Auto) 80.9 % (45.0-75.0) H Lymphocytes (%) (Auto) 11.1 % (20.0-45.0) L Monocytes (%) (Auto) 7.1 % (1.0-10.0) Eosinophils (%) (Auto) 0.3 % (0.0-3.0) Basophils (%) (Auto) 0.5 % (0.0-2.0) Prothrombin Time 10.4 SEC (9.30-11.50) Prothromb Time International Ratio 1.0 (0.9-1.1) Activated Partial Thromboplast Time 30 SEC (23-33) Sodium Level 142 MMOL/L (136-145) Potassium Level 3.7 MMOL/L (3.5-5.1) Chloride Level 109 MMOL/L (98-107) H Carbon Dioxide Level 26 MMOL/L (21-32) Anion Gap 7 mmol/L (5-15) Blood Urea Nitrogen 15 mg/dL (7-18) Creatinine 0.7 MG/DL (0.55-1.30) Estimat Glomerular Filtration Rate mL/min (>60) Glucose Level 151 MG/DL (74-106) H Calcium Level 7.8 MG/DL (8.5-10.1) L Phosphorus Level 2.0 MG/DL (2.5-4.9) L Magnesium Level 1.8 MG/DL (1.8-2.4) Plan Problems: (1) Failure to thrive (2) Hip fracture, left Assessment & Plan: lucency noted on plain films no pain on exam repeat films ordered There is irregularity of the left greater trochanter indicative of a injury. This is probably an old fracture. However please correlate clinically. There is no fracture of the femoral neck or intertrochanteric region bilaterally. The bones are osteopenic. There is no malalignment of either hip identified. IMPRESSION: Irregularity of the left greater trochanter which may be indicative of a previous fracture. Doubt acute injury. However please correlate clinically. Generalized osteopenia (3) Severe protein-calorie malnutrition (4) Rhabdomyolysis (5) Acidosis (6) Adult Failure To Thrive Assessment & Plan: improving tube feeds failed swallow Patient does not have family on a consent form he is non-represented. He is not demented. He is an ideal candidate for PEG tube placement temporarily until he can improve and potential eat on his own again later. PEG tube medically necessary and indicated. Placed today. (7) Pressure Ulcer Of Sacral Region, Unstageable Assessment & Plan: 1) Dehydration Assessment & Plan: AMS, found down dehydration improved with IVF ICD Codes: E86.0 - Dehydration SNOMED: 63360186 (2) Failure to thrive SNOMED: 39995220 (3) Rhabdomyolysis Assessment & Plan: likely from being down IV fluids trending down - resolved will monitor ICD Codes: M62.82 - Rhabdomyolysis SNOMED: 944250069 (4) Blood blister Assessment & Plan: Patient presented with multiple DTI and Blood blisters Found down prior and noted on eval in ED at [facility]. Seen upon admission to [facility] [place] Patient with 8.8cm x 9cm sacral DTI with oozing on right sacral with resorbing blood blister. periwound intact and stable. Right scapula DTI 9.9cm x 5cm purple and indurated without drainage Left thoracic DTI 1cm x 3.5cm purple and indurated without drainage bilateral heels stable and soft with blanching no other skin concerns noted at this time see below as changed Tx Plan: Monitor wounds for drainage. Will apply skin protectant and Optifoam dressings Daily and prn saturation Keep heels off loaded with pillows Air soft mattress Turn q2h Nutritional optimization Will follow with recs. ICD Codes: T14.8XXA - Other injury of unspecified body region, initial encounter SNOMED: 942123938 (5) Lactic acid acidosis Assessment & Plan: IV fluids resuscitation trend resolved ICD Codes: E87.2 - Acidosis SNOMED: 89805644 (6) Hip fracture, left Assessment & Plan: lucency noted on plain films no pain on exam repeat films ordered and noted ICD Codes: S72.002A - Fracture of unspecified part of neck of left femur, initial encounter for closed fracture SNOMED: 107963646 (7) Deep tissue injury ICD Codes: T14.8XXA - Other injury of unspecified body region, initial encounter SNOMED: 640613972 (8) Pancreatitis Assessment & Plan: arnaldo and lip improved MRI noted exam benign no complaints tolerating feeds given above cont with tube feeds. okay to advance to goal trend labs will monitor (9) Unstageable decubitus ulcer Assessment & Plan: Patient presented with multiple deep tissue injuries from being down for unknown period of time. Blood blisters were forming around some of these wounds. On ablation today bedside patient's sacral wound was noted blood pressure had resolved and underlying patient has now a unstageable sacral decubitus ulcer with the coccygeal area having a stage III open wound approximately 2 cm x 1 cm x 0.4 mm deep. Periwound is intact. Eschar noted and stable. No fluctuance. No significant tenderness on palpation. No drainage. No foul order. The area and complete is approximately 8 cm wide by 5 cm long Treatment plan changed. Recommend washing sacral decubitus ulcer daily with normal saline. Apply Thera honey impregnated gauze followed by up to foam dressing. Continue with standard decubitus precautions. will likely need debridement as he improves crosshatched James Breen Sep 09, 2019 19:16
--- NOTE | 2019-09-09 19:33 | NUR ---
HAND-OFF: Report given to Rebekah TURNER.
--- NOTE | 2019-09-09 20:06 | NUR ---
NURSE NOTES: Received patient awake, non-verbal, tolerating his G-tube feeding well.
--- NOTE | 2019-09-09 21:30 | Procedure Note ---
SURGEON: Alek Smith M.D. PROCEDURE: Upper endoscopy with G-tube placement. ANESTHESIA: Per DIETITIAN, Seble Tarrillyeni. INSTRUMENT: Olympus adult flexible upper endoscope. INDICATION: Dysphagia. The procedure, risks, benefits, and possible consequences, including hemorrhage, aspiration, perforation and infection, and alternative treatments, were explained to the patient/legal guardian by Dr. Alek Smith and the patient/legal guardian understood and accepted these risks. DESCRIPTION OF PROCEDURE: After informed consent was obtained and the patient was adequately sedated, the Olympus upper endoscope was advanced from the mouth to the second portion of duodenum and retroflexion was performed in the stomach. The patient had evidence of diffuse gastritis. Under endoscopic guidance, under sterile condition, a 20-Emirati pull type of G-tube was successfully placed in the epigastric area. The distance from the tip of the tube to the skin was about 2.5 cm in size. The patient tolerated the procedure very well without complication. SUMMARY OF FINDINGS: 1. Gastritis. 2. Status post successful PEG placement. RECOMMENDATIONS: 1. Abdominal binder. 2. Elevate the head of bed at all times. 3. G-tube flush. 4. G-tube care. 5. Start tube feeding later today. 6. The patient received a dose of antibiotics prior to this procedure. Alek Smith M.D. DR: Howard JOB#: [id number] CC:
[2019-09-10 00:16] VITALS: BP 134/75
[2019-09-10 04:00] VITALS: BP 132/61
[2019-09-10 05:23] LABS: BASOPHILS % (AUTO) 0.8 % (0.0-2.0); EOSINOPHILS % (AUTO) 0.4 % (0.0-3.0); HEMATOCRIT 31.2 % (42.0-52.0); HEMOGLOBIN 9.8 G/DL (14.2-18.0); LYMPHOCYTES % (AUTO) 11.5 % (20.0-45.0); MEAN CORPUSCULAR VOLUME 89 FL (80-99); MONOCYTES % (AUTO) 7.6 % (1.0-10.0); NEUTROPHILS % (AUTO) 79.7 % (45.0-75.0); PLATELET COUNT 468 K/UL (150-450); RED BLOOD COUNT 3.51 M/UL (4.70-6.10); RED CELL DISTRIBUTION WIDTH 15.5 % (11.6-14.8); WHITE BLOOD COUNT 8.2 K/UL (4.8-10.8)
[2019-09-10] MEDS: NovoLOG Insulin Flexpen SUBQ SCH ×4 (05:28→21:00)
[2019-09-10] MEDS: Heparin 5000 units/ml inj SUBQ SCH ×3 (05:28→21:27)
[2019-09-10] MEDS: Acetaminophen 650mg/20.3ml NG PRN ×2 (05:30→14:30)
[2019-09-10 05:55] LABS: ANION GAP 8 mmol/L (5-15); BLOOD UREA NITROGEN 12 mg/dL (7-18); CARBON DIOXIDE 26 MMOL/L (21-32); CHLORIDE 108 MMOL/L (98-107); CREATININE 0.7 MG/DL (0.55-1.30); POTASSIUM 3.8 MMOL/L (3.5-5.1); SODIUM 142 MMOL/L (136-145)
--- NOTE | 2019-09-10 07:20 | NUR ---
HAND-OFF: Report given to Melody Glass RN.
--- NOTE | 2019-09-10 07:22 | NUR ---
NURSE NOTES: Received patient in bed,awake, patient is verbally responsive and able to say his name correct. HOB elevated with GT feeding of glucerna 1.2 @60cc/hr. No residual and no episodes of nausea or vomiting. Abdomen is not distended. Adams is intact and draining well to gravity with yellowish urine. No sediments or blood. Patient is on bilateral soft wrist restraints. RN released restraints and patient still noted with episodes of grabbing GT and IV tubing. re-educated on restraints and removal criteria. No swelling or skin break on wrist and arms , pulses present. Bed is in lowest position and locked. Will continue plan of care.
[2019-09-10 08:00] VITALS: BP 109/56
--- NOTE | 2019-09-10 08:02 | General Progress Note ---
Assessment/Plan Status: unchanged Assessment/Plan: Assessment/Plan Problems: (1) Pancreatitis ICD Codes: K85.90 - Acute pancreatitis without necrosis or infection, unspecified SNOMED: 60756765 (2) Acute encephalopathy ICD Codes: G93.40 - Encephalopathy, unspecified SNOMED: 11886938, 771943326 (3) Failure to thrive SNOMED: 19971839 (4) Severe protein-calorie malnutrition ICD Codes: E43 - Unspecified severe protein-calorie malnutrition SNOMED: 002209819, 581481476, 163573426 Status: stable, unchanged Assessment/Plan US reviewed, negative MRCP negative elevated lipase s/p PEG GTF increase free water flushes for hypernatremia IV hydration repeat lipase levels Subjective ROS Limited/Unobtainable: No Allergies: Coded Allergies: No Known Allergies (Unverified , 08/27/19) Objective Last 24 Hour Vital Signs Date Time Temp Pulse Resp B/P (MAP) Pulse Ox O2 Delivery O2 Flow Rate FiO2 09/10/19 06:15 99.2 09/10/19 04:00 100.7 97 17 132/61 (84) 99 09/10/19 00:16 97.8 102 17 134/75 (94) 94 09/09/19 21:00 Room Air 09/09/19 19:56 101.9 111 18 138/72 (94) 98 09/09/19 15:55 98.4 92 18 122/62 (82) 98 09/09/19 13:40 98.0 96 18 109/67 100 Nasal Cannula 3 09/09/19 13:34 102 19 98/67 100 Nasal Cannula 3 09/09/19 13:29 101 14 98/57 100 Nasal Cannula 3 09/09/19 13:24 97.8 104 14 90/57 100 Nasal Cannula 3 09/09/19 12:28 98.4 90 18 110/62 (78) 98 09/09/19 10:00 99.0 09/09/19 09:07 132/67 09/09/19 09:06 99 132/67 09/09/19 09:00 Room Air Intake and Output 09/09/19 09/10/19 19:00 07:00 Intake Total 1460 ml 1870 ml Output Total 1900 ml 950 ml Balance -440 ml 920 ml Free Water 300 ml IV Total 1325 ml 850 ml Tube Feeding 135 ml 720 ml Output Urine Total 1900 ml 950 ml # Voids 1 Laboratory Tests 09/10/19 04:36: White Blood Count 8.2, Red Blood Count 3.51L, Hemoglobin 9.8L, Hematocrit 31.2L , Mean Corpuscular Volume 89, Mean Corpuscular Hemoglobin 28.0, Mean Corpuscular Hemoglobin Concent 31.4L, Red Cell Distribution Width 15.5H, Platelet Count 468H, Mean Platelet Volume 6.9, Neutrophils (%) (Auto) 79.7H, Lymphocytes (%) (Auto) 11.5L, Monocytes (%) (Auto) 7.6, Eosinophils (%) (Auto) 0.4, Basophils (%) (Auto) 0.8, Sodium Level 142, Potassium Level 3.8, Chloride Level 108H, Carbon Dioxide Level 26, Anion Gap 8, Blood Urea Nitrogen 12, Creatinine 0.7, Estimat Glomerular Filtration Rate , Glucose Level 193H, Calcium Level 8.0L Height (Feet): 5 Height (Inches): 8.00 Weight (Pounds): 149 General Appearance: no apparent distress EENT: normal ENT inspection Neck: supple Cardiovascular: normal rate Respiratory/Chest: decreased breath sounds Abdomen: normal bowel sounds, non tender, soft Extremities: non-tender Alek Smith MD Sep 10, 2019 08:02
[2019-09-10] MEDS: Benazepril 10mg tab NG SCH (09:00)
[2019-09-10] MEDS: Aspirin Baby 81mg NG SCH (09:29)
[2019-09-10 12:00] VITALS: BP 119/61
--- NOTE | 2019-09-10 12:46 | Internal Med Progress Note ---
Subjective Date of Service: Sep 10, 2019 Physician Name Tello Cobb Attending Physician Cirilo Rome MD Current Medications Medications (Trade) Dose Ordered Sig/Debi Route PRN Reason Start Time Stop Time Status Last Admin Dose Admin Acetaminophen (Tylenol) 650 mg Q4H PRN RECTAL Prn Headache/Temp > 101 08/27/19 12:00 09/26/19 11:59 08/29/19 00:34 Acetaminophen (Tylenol) 650 mg Q6H PRN NG Mild Pain/Temp > 100.5 09/03/19 10:30 09/26/19 01:59 09/10/19 05:30 Amlodipine Besylate (Norvasc) 10 mg DAILY NG 09/03/19 11:00 10/03/19 10:59 09/09/19 09:06 Aspirin (ASA) 81 mg DAILY NG 09/03/19 11:00 09/26/19 08:59 09/10/19 09:29 Benazepril HCl (Lotensin) 10 mg DAILY NG 09/03/19 11:00 10/03/19 10:59 09/09/19 09:07 Dextrose (Dextrose 50%) 25 ml Q30M PRN IV Hypoglycemia 08/27/19 15:15 09/26/19 15:14 Dextrose (Dextrose 50%) 50 ml Q30M PRN IV Hypoglycemia 08/27/19 15:15 09/26/19 15:14 Heparin Sodium (Porcine) (Heparin 5000 units/ml) 5,000 units EVERY 8 HOURS SUBQ 08/27/19 06:00 09/26/19 05:59 09/10/19 05:28 Insulin Aspart (NovoLOG) BEFORE MEALS AND HS SUBQ 08/29/19 11:30 09/28/19 11:29 09/10/19 05:28 Insulin Detemir (Levemir) 6 units DAILY SUBQ 08/30/19 12:00 09/29/19 11:59 09/08/19 10:25 Morphine Sulfate (Morphine Sulfate) 2 mg Q4H PRN IVP For Pain 09/05/19 11:45 09/12/19 11:44 Sodium Chloride 1,000 ml @ 75 mls/hr [id number] IV 09/06/19 14:15 10/06/19 14:14 09/10/19 09:44 Allergies: Coded Allergies: No Known Allergies (Unverified , 08/27/19) ROS Limited/Unobtainable: Yes Subjective 78 YO M admitted with altered mental status. Now rhabdomyolysis and pancreatitis. Cover for Int Med-Dr Rome. S/P PEG 09/09/19 Objective Last Vital Signs Date Time Temp Pulse Resp B/P (MAP) Pulse Ox O2 Delivery O2 Flow Rate FiO2 09/10/19 12:00 97.9 79 16 119/61 (80) 97 09/10/19 09:00 Room Air 09/09/19 13:40 3 09/02/19 22:12 21 Laboratory Tests Test 09/10/19 04:36 White Blood Count 8.2 K/UL (4.8-10.8) Red Blood Count 3.51 M/UL (4.70-6.10) L Hemoglobin 9.8 G/DL (14.2-18.0) L Hematocrit 31.2 % (42.0-52.0) L Mean Corpuscular Volume 89 FL (80-99) Mean Corpuscular Hemoglobin 28.0 PG (27.0-31.0) Mean Corpuscular Hemoglobin Concent 31.4 G/DL (32.0-36.0) L Red Cell Distribution Width 15.5 % (11.6-14.8) H Platelet Count 468 K/UL (150-450) H Mean Platelet Volume 6.9 FL (6.5-10.1) Neutrophils (%) (Auto) 79.7 % (45.0-75.0) H Lymphocytes (%) (Auto) 11.5 % (20.0-45.0) L Monocytes (%) (Auto) 7.6 % (1.0-10.0) Eosinophils (%) (Auto) 0.4 % (0.0-3.0) Basophils (%) (Auto) 0.8 % (0.0-2.0) Sodium Level 142 MMOL/L (136-145) Potassium Level 3.8 MMOL/L (3.5-5.1) Chloride Level 108 MMOL/L (98-107) H Carbon Dioxide Level 26 MMOL/L (21-32) Anion Gap 8 mmol/L (5-15) Blood Urea Nitrogen 12 mg/dL (7-18) Creatinine 0.7 MG/DL (0.55-1.30) Estimat Glomerular Filtration Rate mL/min (>60) Glucose Level 193 MG/DL (74-106) H Calcium Level 8.0 MG/DL (8.5-10.1) L Intake and Output 09/09/19 09/10/19 19:00 07:00 Intake Total 1460 ml 1870 ml Output Total 1900 ml 950 ml Balance -440 ml 920 ml Free Water 300 ml IV Total 1325 ml 850 ml Tube Feeding 135 ml 720 ml Output Urine Total 1900 ml 950 ml # Voids 1 Objective PHYSICAL EXAMINATION: GENERAL: The patient is a well-developed and well-nourished male, who is essentially nonverbal. HEENT: Eyes, pupils equal and responsive to light and accommodation. Extraocular movements are intact. NECK: Supple without lymphadenopathy. CHEST: Lungs are clear to auscultation bilaterally without wheezes or rales. CARDIOVASCULAR: Regular rhythm and rate. S1, S2 normal without murmurs, rubs, or gallops. ABDOMEN: Soft, nontender, nondistended. Positive bowel sounds. No evidence of hepatosplenomegaly. Currently, no rebound or guarding noted. EXTREMITIES: Negative for clubbing, cyanosis, or edema. RECTAL: Not performed. GENITAL: Not performed. NEUROLOGIC: Cranial nerves II through XII are grossly intact without focal deficits. Assessment/Plan Assessment/Plan ASSESSMENT: This is a 78-year-old male with: 1. Altered mental status/encephalopathy 2. Fracture of the left femur greater trochanter. 3. Rhabdomyolysis. 4. Dehydration. 5. Diabetes type 2. 6. Hypertension. 7. Hypercholesterolemia. 8. Pancreatitis TREATMENT: 1. Altered mental status, this may be secondary to dehydration versus acute cerebrovascular accident. An MRI of the brain = no acute dis. 2. Fracture of the left femur greater trochanter. An Orthopedic consultation has been obtained with Dr. Frederic Weir. 3. Rhabdomyolysis. The patient is currently receiving intravenous fluids. 4. Dehydration. The patient is currently receiving intravenous fluids. 5. Diabetes type 2. A NovoLog sliding scale has been instituted. 6. Hypertension. Continue benazepril, hydrochlorothiazide as above. 7. Hypercholesterolemia. Continue pravastatin as above. 8. MRCP=normal-see GI consult 9. S/P PEG 09/09/19 10. Discharge planning Tello Cobb MD Sep 10, 2019 12:46
--- NOTE | 2019-09-10 13:17 | Surgery Progress Note ---
Surgery Progress Note Subjective Additional Comments no acute events comfortable stable Objective Last 24 Hour Vital Signs Date Time Temp Pulse Resp B/P (MAP) Pulse Ox O2 Delivery O2 Flow Rate FiO2 09/10/19 12:00 97.9 79 16 119/61 (80) 97 09/10/19 09:00 109/56 09/10/19 09:00 84 109/56 09/10/19 09:00 Room Air 09/10/19 08:00 97.8 84 17 109/56 (73) 99 09/10/19 06:15 99.2 09/10/19 04:00 100.7 97 17 132/61 (84) 99 09/10/19 00:16 97.8 102 17 134/75 (94) 94 09/09/19 21:00 Room Air 09/09/19 19:56 101.9 111 18 138/72 (94) 98 09/09/19 15:55 98.4 92 18 122/62 (82) 98 09/09/19 13:40 98.0 96 18 109/67 100 Nasal Cannula 3 09/09/19 13:34 102 19 98/67 100 Nasal Cannula 3 09/09/19 13:29 101 14 98/57 100 Nasal Cannula 3 09/09/19 13:24 97.8 104 14 90/57 100 Nasal Cannula 3 I&O Intake and Output 09/09/19 09/10/19 19:00 07:00 Intake Total 1460 ml 1870 ml Output Total 1900 ml 950 ml Balance -440 ml 920 ml Free Water 300 ml IV Total 1325 ml 850 ml Tube Feeding 135 ml 720 ml Output Urine Total 1900 ml 950 ml # Voids 1 Dressing: other Wound: other Drains: other Cardiovascular: RSR Respiratory: decreased breath sounds Abdomen: soft, present bowel sounds Extremities: no cyanosis, other Laboratory Tests Test 09/10/19 04:36 White Blood Count 8.2 K/UL (4.8-10.8) Red Blood Count 3.51 M/UL (4.70-6.10) L Hemoglobin 9.8 G/DL (14.2-18.0) L Hematocrit 31.2 % (42.0-52.0) L Mean Corpuscular Volume 89 FL (80-99) Mean Corpuscular Hemoglobin 28.0 PG (27.0-31.0) Mean Corpuscular Hemoglobin Concent 31.4 G/DL (32.0-36.0) L Red Cell Distribution Width 15.5 % (11.6-14.8) H Platelet Count 468 K/UL (150-450) H Mean Platelet Volume 6.9 FL (6.5-10.1) Neutrophils (%) (Auto) 79.7 % (45.0-75.0) H Lymphocytes (%) (Auto) 11.5 % (20.0-45.0) L Monocytes (%) (Auto) 7.6 % (1.0-10.0) Eosinophils (%) (Auto) 0.4 % (0.0-3.0) Basophils (%) (Auto) 0.8 % (0.0-2.0) Sodium Level 142 MMOL/L (136-145) Potassium Level 3.8 MMOL/L (3.5-5.1) Chloride Level 108 MMOL/L (98-107) H Carbon Dioxide Level 26 MMOL/L (21-32) Anion Gap 8 mmol/L (5-15) Blood Urea Nitrogen 12 mg/dL (7-18) Creatinine 0.7 MG/DL (0.55-1.30) Estimat Glomerular Filtration Rate mL/min (>60) Glucose Level 193 MG/DL (74-106) H Calcium Level 8.0 MG/DL (8.5-10.1) L Plan Problems: (1) Failure to thrive (2) Hip fracture, left Assessment & Plan: lucency noted on plain films no pain on exam repeat films ordered There is irregularity of the left greater trochanter indicative of a injury. This is probably an old fracture. However please correlate clinically. There is no fracture of the femoral neck or intertrochanteric region bilaterally. The bones are osteopenic. There is no malalignment of either hip identified. IMPRESSION: Irregularity of the left greater trochanter which may be indicative of a previous fracture. Doubt acute injury. However please correlate clinically. Generalized osteopenia (3) Severe protein-calorie malnutrition (4) Rhabdomyolysis (5) Acidosis (6) Adult Failure To Thrive Assessment & Plan: improving tube feeds failed swallow Patient does not have family on a consent form he is non-represented. He is not demented. He is an ideal candidate for PEG tube placement temporarily until he can improve and potential eat on his own again later. PEG tube medically necessary and indicated. Placed today. (7) Pressure Ulcer Of Sacral Region, Unstageable Assessment & Plan: 1) Dehydration Assessment & Plan: AMS, found down dehydration improved with IVF ICD Codes: E86.0 - Dehydration SNOMED: 64226409 (2) Failure to thrive SNOMED: 85424224 (3) Rhabdomyolysis Assessment & Plan: likely from being down IV fluids trending down - resolved will monitor ICD Codes: M62.82 - Rhabdomyolysis SNOMED: 386635736 (4) Blood blister Assessment & Plan: Patient presented with multiple DTI and Blood blisters Found down prior and noted on eval in ED at [place]. Seen [place] [facility] [place] with 8.8cm x 9cm sacral DTI with oozing on right sacral with resorbing blood blister. periwound intact and stable. Right scapula DTI 9.9cm x 5cm purple and indurated without drainage Left thoracic DTI 1cm x 3.5cm purple and indurated without drainage bilateral heels stable and soft with blanching no other skin concerns noted at this time see below as changed Tx Plan: Monitor wounds for drainage. Will apply skin protectant and Optifoam dressings Daily and prn saturation Keep heels off loaded with pillows Air soft mattress Turn q2h Nutritional optimization Will follow with recs. ICD Codes: T14.8XXA - Other injury of unspecified body region, initial encounter SNOMED: 606418195 (5) Lactic acid acidosis Assessment & Plan: IV fluids resuscitation trend resolved ICD Codes: E87.2 - Acidosis SNOMED: 17840008 (6) Hip fracture, left Assessment & Plan: lucency noted on plain films no pain on exam repeat films ordered and noted ICD Codes: S72.002A - Fracture of unspecified part of neck of left femur, initial encounter for closed fracture SNOMED: 009898910 (7) Deep tissue injury ICD Codes: T14.8XXA - Other injury of unspecified body region, initial encounter SNOMED: 840662850 (8) Pancreatitis Assessment & Plan: arnaldo and lip improved MRI noted exam benign no complaints tolerating feeds given above cont with tube feeds. okay to advance to goal trend labs will monitor (9) Unstageable decubitus ulcer Assessment & Plan: Patient presented with multiple deep tissue injuries from being down for unknown period of time. Blood blisters were forming around some of these wounds. On ablation today bedside patient's sacral wound was noted blood pressure had resolved and underlying patient has now a unstageable sacral decubitus ulcer with the coccygeal area having a stage III open wound approximately 2 cm x 1 cm x 0.4 mm deep. Periwound is intact. Eschar noted and stable. No fluctuance. No significant tenderness on palpation. No drainage. No foul order. The area and complete is approximately 8 cm wide by 5 cm long Treatment plan changed. Recommend washing sacral decubitus ulcer daily with normal saline. Apply Thera honey impregnated gauze followed by up to foam dressing. Continue with standard decubitus precautions. will likely need debridement as he improves crosshatched James Breen Sep 10, 2019 13:17
--- NOTE | 2019-09-10 13:21 | Pulmonology Progress Note ---
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 (3) Acute encephalopathy (4) Severe protein-calorie malnutrition (5) History of hypertension (6) Diabetes mellitus Assessment/Plan more alert repeat swallow study on Gtube, tolerating feeding, social services counselor note reviewed, pt doesn't have anybody to make any decision for him mental status better tolerated Gtube, Needs exterminator helper placement PT DOENS'T have any family members to sign for his consents. Subjective ROS Limited/Unobtainable: No HEENT: Repors: no symptoms Allergies: Coded Allergies: No Known Allergies (Unverified , 08/27/19) All Systems: reviewed and negative except above Objective Last 24 Hour Vital Signs Date Time Temp Pulse Resp B/P (MAP) Pulse Ox O2 Delivery O2 Flow Rate FiO2 09/10/19 12:00 97.9 79 16 119/61 (80) 97 09/10/19 09:00 109/56 09/10/19 09:00 84 109/56 09/10/19 09:00 Room Air 09/10/19 08:00 97.8 84 17 109/56 (73) 99 09/10/19 06:15 99.2 09/10/19 04:00 100.7 97 17 132/61 (84) 99 09/10/19 00:16 97.8 102 17 134/75 (94) 94 09/09/19 21:00 Room Air 09/09/19 19:56 101.9 111 18 138/72 (94) 98 09/09/19 15:55 98.4 92 18 122/62 (82) 98 09/09/19 13:40 98.0 96 18 109/67 100 Nasal Cannula 3 09/09/19 13:34 102 19 98/67 100 Nasal Cannula 3 09/09/19 13:29 101 14 98/57 100 Nasal Cannula 3 09/09/19 13:24 97.8 104 14 90/57 100 Nasal Cannula 3 Intake and Output 09/09/19 09/10/19 19:00 07:00 Intake Total 1460 ml 1870 ml Output Total 1900 ml 950 ml Balance -440 ml 920 ml Free Water 300 ml IV Total 1325 ml 850 ml Tube Feeding 135 ml 720 ml Output Urine Total 1900 ml 950 ml # Voids 1 Objective still has ng tube General Appearance: cachetic HEENT: normocephalic, atraumatic Respiratory/Chest: chest wall non-tender, normal breath sounds Cardiovascular: normal rate, regular rhythm Abdomen: normal bowel sounds, soft, non tender Genitourinary: normal external genitalia Extremities: no cyanosis Skin: no rash, no lesions Laboratory Tests 09/10/19 04:36: White Blood Count 8.2, Red Blood Count 3.51L, Hemoglobin 9.8L, Hematocrit 31.2L , Mean Corpuscular Volume 89, Mean Corpuscular Hemoglobin 28.0, Mean Corpuscular Hemoglobin Concent 31.4L, Red Cell Distribution Width 15.5H, Platelet Count 468H, Mean Platelet Volume 6.9, Neutrophils (%) (Auto) 79.7H, Lymphocytes (%) (Auto) 11.5L, Monocytes (%) (Auto) 7.6, Eosinophils (%) (Auto) 0.4, Basophils (%) (Auto) 0.8, Sodium Level 142, Potassium Level 3.8, Chloride Level 108H, Carbon Dioxide Level 26, Anion Gap 8, Blood Urea Nitrogen 12, Creatinine 0.7, Estimat Glomerular Filtration Rate , Glucose Level 193H, Calcium Level 8.0L Current Medications Medications (Trade) Dose Ordered Sig/Debi Route PRN Reason Start Time Stop Time Status Last Admin Dose Admin Acetaminophen (Tylenol) 650 mg Q4H PRN RECTAL Prn Headache/Temp > 101 08/27/19 12:00 09/26/19 11:59 08/29/19 00:34 Acetaminophen (Tylenol) 650 mg Q6H PRN NG Mild Pain/Temp > 100.5 09/03/19 10:30 09/26/19 01:59 09/10/19 05:30 Amlodipine Besylate (Norvasc) 10 mg DAILY NG 09/03/19 11:00 10/03/19 10:59 09/09/19 09:06 Aspirin (ASA) 81 mg DAILY NG 09/03/19 11:00 09/26/19 08:59 09/10/19 09:29 Benazepril HCl (Lotensin) 10 mg DAILY NG 09/03/19 11:00 10/03/19 10:59 09/09/19 09:07 Dextrose (Dextrose 50%) 25 ml Q30M PRN IV Hypoglycemia 08/27/19 15:15 09/26/19 15:14 Dextrose (Dextrose 50%) 50 ml Q30M PRN IV Hypoglycemia 08/27/19 15:15 09/26/19 15:14 Heparin Sodium (Porcine) (Heparin 5000 units/ml) 5,000 units EVERY 8 HOURS SUBQ 08/27/19 06:00 09/26/19 05:59 09/10/19 05:28 Insulin Aspart (NovoLOG) BEFORE MEALS AND HS SUBQ 08/29/19 11:30 09/28/19 11:29 09/10/19 05:28 Insulin Detemir (Levemir) 6 units DAILY SUBQ 08/30/19 12:00 09/29/19 11:59 09/08/19 10:25 Morphine Sulfate (Morphine Sulfate) 2 mg Q4H PRN IVP For Pain 09/05/19 11:45 09/12/19 11:44 Sodium Chloride 1,000 ml @ 75 mls/hr [id number] IV 09/06/19 14:15 10/06/19 14:14 09/10/19 09:44 Latanya Mckeon MD Sep 10, 2019 13:21
--- NOTE | 2019-09-10 14:33 | NUR ---
NURSE NOTES: Given tylenol for temp of 100.6. Cooling measures done. Will continue to monitor.
[2019-09-10 16:00] VITALS: BP 115/64
--- NOTE | 2019-09-10 17:37 | NUR ---
NURSE NOTES: Paged Dr. Mckeon and Jordyn to relay episodes of fever. Awaiting for return call. latest temp was 98.0. Will continue to monitor.
--- NOTE | 2019-09-10 18:30 | NUR ---
NURSE NOTES: Received order from Dr. Mckeon to get ID consult from Dr. Silva for fever and RN paged Dr. Silva, awaiting for return call. Patient is afebrile @ this time.
--- NOTE | 2019-09-10 19:00 | NUR ---
NURSE NOTES: During shift,re-position done.No new skin issue. No swelling,bruise or skin break on bilateral wrist. Adams and GT intact.
--- NOTE | 2019-09-10 19:05 | NUR ---
NURSE NOTES: Received pt resting in bed on NC 2 L/min. AAO x 1. Well tolerating with GT feeding and 5cc residual. IV site intact and patent. Adams intact and draining well. Bilateral soft restraints on wrists intact and no skin breakdown under the restraints. No c/o pain, no acute resp. distress noted. Bed locked, lowest position, alarm on, side rails up, call light within reach. Will continue to monitor.
--- NOTE | 2019-09-10 19:30 | NUR ---
HAND-OFF: Report given to Cuca.
[2019-09-10 20:00] VITALS: BP 129/67
[2019-09-11] VITALS: BP 120/63
[2019-09-11] MEDS: Acetaminophen 650mg/20.3ml NG PRN (00:03)
[2019-09-11 04:00] VITALS: BP 106/61
[2019-09-11 05:33] LABS: EOSINOPHILS % (AUTO) 1.3 % (0.0-3.0); HEMATOCRIT 30.9 % (42.0-52.0); HEMOGLOBIN 9.7 G/DL (14.2-18.0); LYMPHOCYTES % (AUTO) 13.8 % (20.0-45.0); MEAN CORPUSCULAR VOLUME 89 FL (80-99); MONOCYTES % (AUTO) 9.5 % (1.0-10.0); NEUTROPHILS % (AUTO) 74.3 % (45.0-75.0); PLATELET COUNT 437 K/UL (150-450); RED BLOOD COUNT 3.49 M/UL (4.70-6.10); RED CELL DISTRIBUTION WIDTH 15.4 % (11.6-14.8); WHITE BLOOD COUNT 6.3 K/UL (4.8-10.8)
[2019-09-11] MEDS: NovoLOG Insulin Flexpen SUBQ SCH ×4 (05:48→21:10)
[2019-09-11] MEDS: Heparin 5000 units/ml inj SUBQ SCH ×3 (05:48→21:11)
--- NOTE | 2019-09-11 06:49 | General Progress Note ---
Assessment/Plan Status: unchanged Assessment/Plan: Assessment/Plan Problems: (1) Pancreatitis ICD Codes: K85.90 - Acute pancreatitis without necrosis or infection, unspecified SNOMED: 65663441 (2) Acute encephalopathy ICD Codes: G93.40 - Encephalopathy, unspecified SNOMED: 65444368, 710085151 (3) Failure to thrive SNOMED: 50553670 (4) Severe protein-calorie malnutrition ICD Codes: E43 - Unspecified severe protein-calorie malnutrition SNOMED: 933627064, 498325344, 080415469 Status: stable, unchanged Assessment/Plan US reviewed, negative MRCP negative elevated lipase s/p PEG GTF GT care has some fever still fu ID repeat labs Subjective ROS Limited/Unobtainable: No Allergies: Coded Allergies: No Known Allergies (Unverified , 08/27/19) Objective Last 24 Hour Vital Signs Date Time Temp Pulse Resp B/P (MAP) Pulse Ox O2 Delivery O2 Flow Rate FiO2 09/11/19 04:00 97.9 83 17 106/61 (76) 97 09/11/19 00:33 97.7 09/11/19 00:00 101.5 87 16 120/63 (82) 97 09/10/19 21:00 Nasal Cannula 2.0 09/10/19 20:00 99.6 86 17 129/67 (87) 96 09/10/19 16:00 98.0 86 16 115/64 (81) 97 09/10/19 14:35 100.6 09/10/19 12:00 97.9 79 16 119/61 (80) 97 09/10/19 09:00 109/56 09/10/19 09:00 84 109/56 09/10/19 09:00 Room Air 09/10/19 08:00 97.8 84 17 109/56 (73) 99 Intake and Output 09/10/19 09/11/19 19:00 07:00 Intake Total 1695 ml 1690 ml Output Total 700 ml Balance 1695 ml 990 ml Free Water 150 ml 150 ml IV Total 825 ml 880 ml Tube Feeding 720 ml 660 ml Output Urine Total 700 ml # Voids 1 # Bowel Movements 1 Laboratory Tests 09/11/19 04:06: White Blood Count 6.3, Red Blood Count 3.49L, Hemoglobin 9.7L, Hematocrit 30.9L , Mean Corpuscular Volume 89, Mean Corpuscular Hemoglobin 27.8, Mean Corpuscular Hemoglobin Concent 31.3L, Red Cell Distribution Width 15.4H, Platelet Count 437, Mean Platelet Volume 6.6, Neutrophils (%) (Auto) 74.3, Lymphocytes (%) (Auto) 13.8L, Monocytes (%) (Auto) 9.5, Eosinophils (%) (Auto) 1.3, Basophils (%) (Auto) 1.0, Sodium Level [Pending], Potassium Level [Pending] , Chloride Level [Pending], Carbon Dioxide Level [Pending], Blood Urea Nitrogen [Pending], Creatinine [Pending], Estimat Glomerular Filtration Rate [Pending], Glucose Level [Pending], Calcium Level [Pending] Height (Feet): 5 Height (Inches): 8.00 Weight (Pounds): 149 General Appearance: lethargic EENT: normal ENT inspection Neck: supple Cardiovascular: normal rate Respiratory/Chest: decreased breath sounds Abdomen: normal bowel sounds, non tender, soft Extremities: non-tender Alek Smith MD Sep 11, 2019 06:49
[2019-09-11 07:04] LABS: ANION GAP 6 mmol/L (5-15); BLOOD UREA NITROGEN 11 mg/dL (7-18); CALCIUM 7.8 MG/DL (8.5-10.1); CARBON DIOXIDE 27 MMOL/L (21-32); CHLORIDE 110 MMOL/L (98-107); CREATININE 0.7 MG/DL (0.55-1.30); POTASSIUM 3.5 MMOL/L (3.5-5.1); SODIUM 143 MMOL/L (136-145)
--- NOTE | 2019-09-11 07:40 | NUR ---
NURSE NOTES: Received report from JOHNNY Thurman. Patient A&OX1, with spontaneous eye movement. Nasal cannula on 2L/min. No signs of distress or labored breathing. IV intact, patent, and infusing IV fluids. Adams catheter intact, patent, and draining urine. G-tube intact, patent, and infusing feeding. Bilateral wrist restraints on. Bed in lowest position with HOB at 30 degrees. Will continue with plan of care.
--- NOTE | 2019-09-11 07:43 | NUR ---
HAND-OFF: Report given to JOHNNY Raymundo.
[2019-09-11 08:00] VITALS: BP 121/64
--- NOTE | 2019-09-11 09:05 | NUR ---
Social Work Patient's spouse ( nine years ago). while spouse has a cousin from [facility], Magda Sheehan ([phone]) who is willing to make decisions for patient, as needed. 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
[2019-09-11] MEDS: Aspirin Baby 81mg NG SCH (09:45)
[2019-09-11] MEDS: Benazepril 10mg tab NG SCH (09:45)
[2019-09-11] MEDS: Levemir Flexpen SUBQ SCH (09:48)
--- NOTE | 2019-09-11 11:00 | NUR ---
RD ASSESSMENT & RECOMMENDATIONS SEE CARE ACTIVITY FOR COMPLETE ASSESSMENT DAILY ESTIMATED NEEDS: Needs based on Wounds, DM/ 57.6kg 25-35 kcals/kg 9014-6035 total kcals 1.25-2 g protein/kg 72-115 g total protein 25-30 mL/kg 4299-6435 total fluid mLs NUTRITION DIAGNOSIS: * Swallowing difficulty R/T dysphagia, AMS as evidenced by s/p NGT insertion, pt to be on nonoral feeding at this time. * Increased kcal/prot needs R/T wound healing as evidenced by pt admitted w/ DTI wounds at sacrum, R scapula, and L thoracic, refer to eval. CURRENT TF:Glucerna 1.2 @ 60ml/hr x 24 hrs ENTERAL NUTRITION RECOMMENDATIONS: Glucerna 1.2 @ 60ml/hr x 24 hrs + Prosource qdaily to provide 1440ml, 1728kcal, 86g + 11g prot, 1159ml free water * Maintain current TF @ goal * HOB over 30 degrees * Without IVF, rec H20 flush of 150ml q 6hrs * Add Prosource x1 pack daily to better meet est pro needs ------ ADDITIONAL RECOMMENDATIONS: * Calibrated bedscale wt for accurate CBW * Monitor lytes daily w/ TF, replete as needed * Pt may require increase in insulin regimen for improved BG W/ continuous TF infusion * Wound healing: Add Vit C 250mg QD+ ZnSO4 220mg QD x 10 days Terrance 1pkt BID + Prosource x1 daily * Updated Lipase labs
--- NOTE | 2019-09-11 11:44 | NUR ---
WEEKLY SWALLOW/SPEECH THERAPY SUMMARY: PATIENT ALERT BUT ONLY FOR A FEW SECONDS. NOT ALERT FOR SWALLOW TX. HAD PEG PLACED 2 DAYS AGO 09/09/19. EDUCATED/TRAINED STAFF (ASHIA ANG AND JOHNNY ALATORRE) IN POSTED ORAL CARE NEEDS AND ASP PRECAUTIONS WITH WHEN PEG FEEDINGS RUNNING. GOALS NOT MET FOR INTAKE BUT GOALS MET FOR NEW STAFF EDUCATED/TRAINED IN ASPIRATION PRECAUTIONS FOR PEG DURING FEEDINGS AND ORAL CARE NEEDS. PLAN: WILL RESUME SKILLED ASSISTANT SECRETARY SERVICES NEXT SATURDAY (NO ASSISTANT SECRETARY ON SATURDAY AND OVER THE W/END). IF DC, F/UP WITH ASSISTANT SECRETARY AT SNF FOR DYSPHAGIA MANAGEMENT AND TX AND CONTINUED COG-COM RE-EVAL/TX.
--- NOTE | 2019-09-11 11:53 | Consultation ---
History of Present Illness General Date patient seen: Sep 11, 2019 Time patient seen: 11:24 Reason for Consultation: inpatient management Present Illness HPI 78 y/o M with hx of Dm2, HLD, HTN is transferred from [facility] to [place] on 08/27 after being found down, confusion. Patient had multiple skin abrasions/ wounds. At [place] was diagnosed with dehydration, rhabdomyolisis, L femur greater trochanter fracture (possibly old). Patient has been having intermittent fevers since 09/06/19.; Tm 102 Denied abd pain upon admission ID consulted for sepsis Allergies: Coded Allergies: No Known Allergies (Unverified , 08/27/19) Medication History Scheduled Amlodipine Besylate (Norvasc), 10 MG ORAL DAILY, (Reported) Aspirin (Aspirin EC), 81 MG ORAL DAILY, (Reported) Benazepril/Hydrochlorothiazide (Lotensin Hct 10-12.5 mg Tablet), 1 EACH PO DAILY , (Reported) Hydroxyurea* (HYDREA 500mg*), 500 MG PO DAILY, (Reported) Metformin Hcl (Glucophage), 1,000 MG ORAL BID, (Reported) Pravastatin Sod (Pravastatin Sod), 20 MG ORAL DAILY, (Reported) Patient History Healthcare decision maker Clark Montero Resuscitation status Full Code Advanced Directive on File No Patient History Narrative Pmhx: as above Shx: The patient is single and lives alone. The patient denies tobacco or alcohol use. Fhx: non contributory Review of Systems All Other Systems: negative except mentioned in HPI Physical Exam Physical Exam Narrative General Appearance: cachetic, thin Lines, tubes and drains: peripheral HEENT: normocephalic, atraumatic Neck: non-tender, normal alignment Respiratory/Chest: chest wall non-tender, lungs clear Breasts: no masses Cardiovascular/Chest: normal peripheral pulses Abdomen: normal bowel sounds Genitourinary/Rectal: normal genital exam Extremities: normal range of motion Skin Exam: normal pigmentation Last 24 Hour Vital Signs Date Time Temp Pulse Resp B/P (MAP) Pulse Ox O2 Delivery O2 Flow Rate FiO2 09/11/19 09:46 95 121/64 09/11/19 09:45 121/64 09/11/19 08:00 100.3 95 20 121/64 (83) 99 09/11/19 04:00 97.9 83 17 106/61 (76) 97 09/11/19 00:33 97.7 09/11/19 00:00 101.5 87 16 120/63 (82) 97 09/10/19 21:00 Nasal Cannula 2.0 09/10/19 20:00 99.6 86 17 129/67 (87) 96 09/10/19 16:00 98.0 86 16 115/64 (81) 97 09/10/19 14:35 100.6 09/10/19 12:00 97.9 79 16 119/61 (80) 97 Intake and Output 09/10/19 09/11/19 19:00 07:00 Intake Total 1695 ml 1750 ml Output Total 700 ml Balance 1695 ml 1050 ml Free Water 150 ml 150 ml IV Total 825 ml 880 ml Tube Feeding 720 ml 720 ml Output Urine Total 700 ml # Voids 1 # Bowel Movements 1 Laboratory Tests Test 09/11/19 04:06 White Blood Count 6.3 K/UL (4.8-10.8) Red Blood Count 3.49 M/UL (4.70-6.10) L Hemoglobin 9.7 G/DL (14.2-18.0) L Hematocrit 30.9 % (42.0-52.0) L Mean Corpuscular Volume 89 FL (80-99) Mean Corpuscular Hemoglobin 27.8 PG (27.0-31.0) Mean Corpuscular Hemoglobin Concent 31.3 G/DL (32.0-36.0) L Red Cell Distribution Width 15.4 % (11.6-14.8) H Platelet Count 437 K/UL (150-450) Mean Platelet Volume 6.6 FL (6.5-10.1) Neutrophils (%) (Auto) 74.3 % (45.0-75.0) Lymphocytes (%) (Auto) 13.8 % (20.0-45.0) L Monocytes (%) (Auto) 9.5 % (1.0-10.0) Eosinophils (%) (Auto) 1.3 % (0.0-3.0) Basophils (%) (Auto) 1.0 % (0.0-2.0) Sodium Level 143 MMOL/L (136-145) Potassium Level 3.5 MMOL/L (3.5-5.1) Chloride Level 110 MMOL/L (98-107) H Carbon Dioxide Level 27 MMOL/L (21-32) Anion Gap 6 mmol/L (5-15) Blood Urea Nitrogen 11 mg/dL (7-18) Creatinine 0.7 MG/DL (0.55-1.30) Estimat Glomerular Filtration Rate mL/min (>60) Glucose Level 202 MG/DL (74-106) H Calcium Level 7.8 MG/DL (8.5-10.1) L Height (Feet): 5 Height (Inches): 8.00 Weight (Pounds): 149 Medications Current Medications Medications (Trade) Dose Ordered Sig/Debi Route PRN Reason Start Time Stop Time Status Last Admin Dose Admin Acetaminophen (Tylenol) 650 mg Q4H PRN RECTAL Prn Headache/Temp > 101 08/27/19 12:00 09/26/19 11:59 08/29/19 00:34 Acetaminophen (Tylenol) 650 mg Q6H PRN NG Mild Pain/Temp > 100.5 09/03/19 10:30 09/26/19 01:59 09/11/19 00:03 Amlodipine Besylate (Norvasc) 10 mg DAILY NG 09/03/19 11:00 10/03/19 10:59 09/11/19 09:46 Aspirin (ASA) 81 mg DAILY NG 09/03/19 11:00 09/26/19 08:59 09/11/19 09:45 Benazepril HCl (Lotensin) 10 mg DAILY NG 09/03/19 11:00 10/03/19 10:59 09/11/19 09:45 Dextrose (Dextrose 50%) 25 ml Q30M PRN IV Hypoglycemia 08/27/19 15:15 09/26/19 15:14 Dextrose (Dextrose 50%) 50 ml Q30M PRN IV Hypoglycemia 08/27/19 15:15 09/26/19 15:14 Heparin Sodium (Porcine) (Heparin 5000 units/ml) 5,000 units EVERY 8 HOURS SUBQ 08/27/19 06:00 09/26/19 05:59 09/11/19 05:48 Insulin Aspart (NovoLOG) BEFORE MEALS AND HS SUBQ 08/29/19 11:30 09/28/19 11:29 09/11/19 05:48 Insulin Detemir (Levemir) 6 units DAILY SUBQ 08/30/19 12:00 09/29/19 11:59 09/11/19 09:48 Morphine Sulfate (Morphine Sulfate) 2 mg Q4H PRN IVP For Pain 09/05/19 11:45 09/12/19 11:44 Sodium Chloride 1,000 ml @ 75 mls/hr [id number] IV 09/06/19 14:15 10/06/19 14:14 09/10/19 21:29 Assessment/Plan Assessment/Plan: Abx: Ceftriaxone 08/28- Cefoxitin x1 09/09 Assessment: Sepsis VS SIRS- probably due to pancreatitis- will repeat cultures and CXR to evaluate for concomitant infectious process NO leukocytosis Fever -08/28 u/a wbc 5-10, nit neg, leuk +1; ucx >100k S. haemolyticus Bcx neg -08/27 Bcx neg CXR: no acute disease Pancreatitis -MRI abdomen: Limited exam, as described. No definite pancreatic or peripancreatic abnormality demonstrated. No evidence of cholelithiasis, choledocholithiasis, or biliary ductal dilatation. 1 cm cyst immediately anterior to the inferior sal of the right hemidiaphragm at the level of the renal hilum, of uncertain etiology but doubtful significance. Prostatomegaly Incidental finding of bilateral renal cysts Acute encephalitis -Brain MRI: No acute intracranial findings. Moderate atrophy and evidence of chronic small vessel disease involving white matter tracts. s/p fall -xray pelvis: Irregularity of the left greater trochanter which may be indicative of a previous fracture. Doubt acute injury. However please correlate clinically. Generalized osteopenia FTT -09/09 SP EGD and PEG placement: --Findings: Gastritis. KELLY, SP Rhabdomylosis, improving Elevated AST -Abd US: No acute findings. Bilateral renal cysts Sacral decubitus ulcer Dm2 HLD HTN Plan: -Continue to monitor off abx unless HD unstable, positive cultures and/or new infiltrates on CXR -09/09 SP Cetirixin x1 -09/03 SP Ceftriaxone #7 -f/u cx -Monitor CBC/CMP, temperatures -CXR -u/a w/ reflex, Bcx, influenza sc -aspiration precautions -PEG care -wound care per surgical team Thank you for this consultation. Will continue to follow along with you. Discussed with Blaire Ortiz M.D. Sep 11, 2019 11:53
[2019-09-11 12:00] VITALS: BP 136/62
--- NOTE | 2019-09-11 12:33 | Pulmonology Progress Note ---
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 (3) Acute encephalopathy (4) Severe protein-calorie malnutrition (5) History of hypertension (6) Diabetes mellitus Assessment/Plan more alert on Gtube, tolerating feeding, protective services social worker note reviewed, pt doesn't have anybody to make any decision for him mental status better Needs correction placement PT DOENS'T have any family members to sign for his consents. Subjective ROS Limited/Unobtainable: No Constitutional: Reports: no symptoms HEENT: Repors: no symptoms Respiratory: Reports: no symptoms Allergies: Coded Allergies: No Known Allergies (Unverified , 08/27/19) Objective Last 24 Hour Vital Signs Date Time Temp Pulse Resp B/P (MAP) Pulse Ox O2 Delivery O2 Flow Rate FiO2 09/11/19 09:46 95 121/64 09/11/19 09:45 121/64 09/11/19 08:00 100.3 95 20 121/64 (83) 99 09/11/19 04:00 97.9 83 17 106/61 (76) 97 09/11/19 00:33 97.7 09/11/19 00:00 101.5 87 16 120/63 (82) 97 09/10/19 21:00 Nasal Cannula 2.0 09/10/19 20:00 99.6 86 17 129/67 (87) 96 09/10/19 16:00 98.0 86 16 115/64 (81) 97 09/10/19 14:35 100.6 Intake and Output 09/10/19 09/11/19 19:00 07:00 Intake Total 1695 ml 1750 ml Output Total 700 ml Balance 1695 ml 1050 ml Free Water 150 ml 150 ml IV Total 825 ml 880 ml Tube Feeding 720 ml 720 ml Output Urine Total 700 ml # Voids 1 # Bowel Movements 1 Objective still has ng tube General Appearance: cachetic HEENT: normocephalic, atraumatic Respiratory/Chest: chest wall non-tender, normal breath sounds Cardiovascular: normal rate, regular rhythm Abdomen: normal bowel sounds, soft, non tender Genitourinary: normal external genitalia Extremities: no cyanosis Skin: no rash, no lesions Laboratory Tests 09/11/19 04:06: White Blood Count 6.3, Red Blood Count 3.49L, Hemoglobin 9.7L, Hematocrit 30.9L , Mean Corpuscular Volume 89, Mean Corpuscular Hemoglobin 27.8, Mean Corpuscular Hemoglobin Concent 31.3L, Red Cell Distribution Width 15.4H, Platelet Count 437, Mean Platelet Volume 6.6, Neutrophils (%) (Auto) 74.3, Lymphocytes (%) (Auto) 13.8L, Monocytes (%) (Auto) 9.5, Eosinophils (%) (Auto) 1.3, Basophils (%) (Auto) 1.0, Sodium Level 143, Potassium Level 3.5, Chloride Level 110H, Carbon Dioxide Level 27, Anion Gap 6, Blood Urea Nitrogen 11, Creatinine 0.7, Estimat Glomerular Filtration Rate , Glucose Level 202H, Calcium Level 7.8L Current Medications Medications (Trade) Dose Ordered Sig/Debi Route PRN Reason Start Time Stop Time Status Last Admin Dose Admin Acetaminophen (Tylenol) 650 mg Q4H PRN RECTAL Prn Headache/Temp > 101 08/27/19 12:00 09/26/19 11:59 08/29/19 00:34 Acetaminophen (Tylenol) 650 mg Q6H PRN NG Mild Pain/Temp > 100.5 09/03/19 10:30 09/26/19 01:59 09/11/19 00:03 Amlodipine Besylate (Norvasc) 10 mg DAILY NG 09/03/19 11:00 10/03/19 10:59 09/11/19 09:46 Aspirin (ASA) 81 mg DAILY NG 09/03/19 11:00 09/26/19 08:59 09/11/19 09:45 Benazepril HCl (Lotensin) 10 mg DAILY NG 09/03/19 11:00 10/03/19 10:59 09/11/19 09:45 Dextrose (Dextrose 50%) 25 ml Q30M PRN IV Hypoglycemia 08/27/19 15:15 09/26/19 15:14 Dextrose (Dextrose 50%) 50 ml Q30M PRN IV Hypoglycemia 08/27/19 15:15 09/26/19 15:14 Heparin Sodium (Porcine) (Heparin 5000 units/ml) 5,000 units EVERY 8 HOURS SUBQ 08/27/19 06:00 09/26/19 05:59 09/11/19 05:48 Insulin Aspart (NovoLOG) BEFORE MEALS AND HS SUBQ 08/29/19 11:30 09/28/19 11:29 09/11/19 12:14 Insulin Detemir (Levemir) 6 units DAILY SUBQ 08/30/19 12:00 09/29/19 11:59 09/11/19 09:48 Morphine Sulfate (Morphine Sulfate) 2 mg Q4H PRN IVP For Pain 09/05/19 11:45 09/12/19 11:44 Sodium Chloride 1,000 ml @ 75 mls/hr [id number] IV 09/06/19 14:15 10/06/19 14:14 09/11/19 11:55 Latanya Mckeon MD Sep 11, 2019 12:33
--- NOTE | 2019-09-11 13:38 | NUR ---
PORTABLE CHEST X-RAY COMPLETED AT 1316 HRS BY Bill AMADOR.
--- NOTE | 2019-09-11 14:30 | Internal Med Progress Note ---
Subjective Date of Service: Sep 11, 2019 Physician Name Tello Cobb Attending Physician Cirilo Rome MD Current Medications Medications (Trade) Dose Ordered Sig/Debi Route PRN Reason Start Time Stop Time Status Last Admin Dose Admin Acetaminophen (Tylenol) 650 mg Q4H PRN RECTAL Prn Headache/Temp > 101 08/27/19 12:00 09/26/19 11:59 08/29/19 00:34 Acetaminophen (Tylenol) 650 mg Q6H PRN NG Mild Pain/Temp > 100.5 09/03/19 10:30 09/26/19 01:59 09/11/19 00:03 Amlodipine Besylate (Norvasc) 10 mg DAILY NG 09/03/19 11:00 10/03/19 10:59 09/11/19 09:46 Aspirin (ASA) 81 mg DAILY NG 09/03/19 11:00 09/26/19 08:59 09/11/19 09:45 Benazepril HCl (Lotensin) 10 mg DAILY NG 09/03/19 11:00 10/03/19 10:59 09/11/19 09:45 Dextrose (Dextrose 50%) 25 ml Q30M PRN IV Hypoglycemia 08/27/19 15:15 09/26/19 15:14 Dextrose (Dextrose 50%) 50 ml Q30M PRN IV Hypoglycemia 08/27/19 15:15 09/26/19 15:14 Heparin Sodium (Porcine) (Heparin 5000 units/ml) 5,000 units EVERY 8 HOURS SUBQ 08/27/19 06:00 09/26/19 05:59 09/11/19 05:48 Insulin Aspart (NovoLOG) BEFORE MEALS AND HS SUBQ 08/29/19 11:30 09/28/19 11:29 09/11/19 12:14 Insulin Detemir (Levemir) 6 units DAILY SUBQ 08/30/19 12:00 09/29/19 11:59 09/11/19 09:48 Morphine Sulfate (Morphine Sulfate) 2 mg Q4H PRN IVP For Pain 09/05/19 11:45 09/12/19 11:44 Sodium Chloride 1,000 ml @ 75 mls/hr [id number] IV 09/06/19 14:15 10/06/19 14:14 09/11/19 11:55 Allergies: Coded Allergies: No Known Allergies (Unverified , 08/27/19) ROS Limited/Unobtainable: Yes Subjective 78 YO M admitted with altered mental status. Now rhabdomyolysis and pancreatitis. Cover for Int Med-Dr Rome. S/P PEG 09/09/19 Objective Last Vital Signs Date Time Temp Pulse Resp B/P (MAP) Pulse Ox O2 Delivery O2 Flow Rate FiO2 09/11/19 12:00 100.1 88 19 136/62 (86) 100 09/11/19 09:00 Nasal Cannula 2.0 09/02/19 22:12 21 Laboratory Tests Test 09/11/19 04:06 White Blood Count 6.3 K/UL (4.8-10.8) Red Blood Count 3.49 M/UL (4.70-6.10) L Hemoglobin 9.7 G/DL (14.2-18.0) L Hematocrit 30.9 % (42.0-52.0) L Mean Corpuscular Volume 89 FL (80-99) Mean Corpuscular Hemoglobin 27.8 PG (27.0-31.0) Mean Corpuscular Hemoglobin Concent 31.3 G/DL (32.0-36.0) L Red Cell Distribution Width 15.4 % (11.6-14.8) H Platelet Count 437 K/UL (150-450) Mean Platelet Volume 6.6 FL (6.5-10.1) Neutrophils (%) (Auto) 74.3 % (45.0-75.0) Lymphocytes (%) (Auto) 13.8 % (20.0-45.0) L Monocytes (%) (Auto) 9.5 % (1.0-10.0) Eosinophils (%) (Auto) 1.3 % (0.0-3.0) Basophils (%) (Auto) 1.0 % (0.0-2.0) Sodium Level 143 MMOL/L (136-145) Potassium Level 3.5 MMOL/L (3.5-5.1) Chloride Level 110 MMOL/L (98-107) H Carbon Dioxide Level 27 MMOL/L (21-32) Anion Gap 6 mmol/L (5-15) Blood Urea Nitrogen 11 mg/dL (7-18) Creatinine 0.7 MG/DL (0.55-1.30) Estimat Glomerular Filtration Rate mL/min (>60) Glucose Level 202 MG/DL (74-106) H Calcium Level 7.8 MG/DL (8.5-10.1) L Intake and Output 09/10/19 09/11/19 19:00 07:00 Intake Total 1695 ml 1750 ml Output Total 700 ml Balance 1695 ml 1050 ml Free Water 150 ml 150 ml IV Total 825 ml 880 ml Tube Feeding 720 ml 720 ml Output Urine Total 700 ml # Voids 1 # Bowel Movements 1 Objective PHYSICAL EXAMINATION: GENERAL: The patient is a well-developed and well-nourished male, who is essentially nonverbal. HEENT: Eyes, pupils equal and responsive to light and accommodation. Extraocular movements are intact. NECK: Supple without lymphadenopathy. CHEST: Lungs are clear to auscultation bilaterally without wheezes or rales. CARDIOVASCULAR: Regular rhythm and rate. S1, S2 normal without murmurs, rubs, or gallops. ABDOMEN: Soft, nontender, nondistended. Positive bowel sounds. No evidence of hepatosplenomegaly. Currently, no rebound or guarding noted. EXTREMITIES: Negative for clubbing, cyanosis, or edema. RECTAL: Not performed. GENITAL: Not performed. NEUROLOGIC: Cranial nerves II through XII are grossly intact without focal deficits. Assessment/Plan Assessment/Plan ASSESSMENT: This is a 78-year-old male with: 1. Altered mental status/encephalopathy 2. Fracture of the left femur greater trochanter. 3. Rhabdomyolysis. 4. Dehydration. 5. Diabetes type 2. 6. Hypertension. 7. Hypercholesterolemia. 8. Pancreatitis TREATMENT: 1. Altered mental status, this may be secondary to dehydration versus acute cerebrovascular accident. An MRI of the brain = no acute dis. 2. Fracture of the left femur greater trochanter. An Orthopedic consultation has been obtained with Dr. Frederic Weir. 3. Rhabdomyolysis. The patient is currently receiving intravenous fluids. 4. Dehydration. The patient is currently receiving intravenous fluids. 5. Diabetes type 2. A NovoLog sliding scale has been instituted. 6. Hypertension. Continue benazepril, hydrochlorothiazide as above. 7. Hypercholesterolemia. Continue pravastatin as above. 8. MRCP=normal-see GI consult 9. S/P PEG 09/09/19 10. Discharge planning: [facility] Tello Cobb MD Sep 11, 2019 14:30
--- NOTE | 2019-09-11 14:55 | NUR ---
PARTY SUPPLY SPECIALISTTREASURY ACCOUNTANT SI: S/P PEG PLACEMENT T. 100.3 HR 95 RR 20 B/P 121/64 2L NC O2 SAT @ 98% IS: IVF NS @ 75ML/HR HEPARIN SUBC LEVEMIR SUBC ASA GT MED/SURG STATUS
--- NOTE | 2019-09-11 15:09 | NUR ---
*-* DISCHARGE PLANNING *-* [facility] P: [phone] F: [phone] EFAX: [phone]
[2019-09-11 16:00] VITALS: BP 127/68
[2019-09-11 16:53] LABS: APPEARANCE,URINE CLEAR; BILIRUBIN, URINE NEGATIVE (NEGATIVE); GLUCOSE, URINE (UA) 1+ (NEGATIVE); KETONES,URINE NEGATIVE (NEGATIVE); LEUKOCYTE ESTERASE ,URINE NEGATIVE (NEGATIVE); NITRITE,URINE NEGATIVE (NEGATIVE); PH,URINE 6.5 (4.5-8.0); PROTEIN,URINE 2+ (NEGATIVE); UROBILINOGEN,URINE 1 MG/DL (0.0-1.0)
[2019-09-11 16:54] LABS: COLOR,URINE YELLOW
--- NOTE | 2019-09-11 17:13 | Surgery Progress Note ---
Surgery Progress Note Subjective Additional Comments Intermittent fevers continue. Infectious disease input noted and appreciated. No leukocytosis. No shift. Exam stable. Alert comfortable. Tolerating tube feeds Objective Last 24 Hour Vital Signs Date Time Temp Pulse Resp B/P (MAP) Pulse Ox O2 Delivery O2 Flow Rate FiO2 09/11/19 16:00 99.9 90 19 127/68 (87) 99 09/11/19 12:00 100.1 88 19 136/62 (86) 100 09/11/19 09:46 95 121/64 09/11/19 09:45 121/64 09/11/19 09:00 Nasal Cannula 2.0 09/11/19 08:00 100.3 95 20 121/64 (83) 99 09/11/19 04:00 97.9 83 17 106/61 (76) 97 09/11/19 00:33 97.7 09/11/19 00:00 101.5 87 16 120/63 (82) 97 09/10/19 21:00 Nasal Cannula 2.0 09/10/19 20:00 99.6 86 17 129/67 (87) 96 I&O Intake and Output 09/10/19 09/11/19 19:00 07:00 Intake Total 1695 ml 1750 ml Output Total 700 ml Balance 1695 ml 1050 ml Free Water 150 ml 150 ml IV Total 825 ml 880 ml Tube Feeding 720 ml 720 ml Output Urine Total 700 ml # Voids 1 # Bowel Movements 1 Dressing: saturated Wound: other Drains: other Cardiovascular: RSR Respiratory: decreased breath sounds Abdomen: soft, present bowel sounds, non-distended Extremities: no cyanosis, other Laboratory Tests Test 09/11/19 04:06 09/11/19 16:14 White Blood Count 6.3 K/UL (4.8-10.8) Red Blood Count 3.49 M/UL (4.70-6.10) L Hemoglobin 9.7 G/DL (14.2-18.0) L Hematocrit 30.9 % (42.0-52.0) L Mean Corpuscular Volume 89 FL (80-99) Mean Corpuscular Hemoglobin 27.8 PG (27.0-31.0) Mean Corpuscular Hemoglobin Concent 31.3 G/DL (32.0-36.0) L Red Cell Distribution Width 15.4 % (11.6-14.8) H Platelet Count 437 K/UL (150-450) Mean Platelet Volume 6.6 FL (6.5-10.1) Neutrophils (%) (Auto) 74.3 % (45.0-75.0) Lymphocytes (%) (Auto) 13.8 % (20.0-45.0) L Monocytes (%) (Auto) 9.5 % (1.0-10.0) Eosinophils (%) (Auto) 1.3 % (0.0-3.0) Basophils (%) (Auto) 1.0 % (0.0-2.0) Sodium Level 143 MMOL/L (136-145) Potassium Level 3.5 MMOL/L (3.5-5.1) Chloride Level 110 MMOL/L (98-107) H Carbon Dioxide Level 27 MMOL/L (21-32) Anion Gap 6 mmol/L (5-15) Blood Urea Nitrogen 11 mg/dL (7-18) Creatinine 0.7 MG/DL (0.55-1.30) Estimat Glomerular Filtration Rate mL/min (>60) Glucose Level 202 MG/DL (74-106) H Calcium Level 7.8 MG/DL (8.5-10.1) L Urine Color Yellow Urine Appearance Clear Urine pH 6.5 (4.5-8.0) Urine Specific [place] 1.005 (1.005-1.035) Urine Protein 2+ (NEGATIVE) H Urine Glucose (UA) 1+ (NEGATIVE) H Urine Ketones Negative (NEGATIVE) Urine Blood 1+ (NEGATIVE) H Urine Nitrite Negative (NEGATIVE) Urine Bilirubin Negative (NEGATIVE) Urine Urobilinogen 1 MG/DL (0.0-1.0) H Urine Leukocyte Esterase Negative (NEGATIVE) Urine RBC 0-2 /HPF (0 - 0) H Urine WBC 0-2 /HPF (0 - 0) Urine Squamous Epithelial Cells None /LPF (NONE/OCC) Urine Bacteria None /HPF (NONE) Plan Problems: (1) Failure to thrive (2) Hip fracture, left Assessment & Plan: lucency noted on plain films no pain on exam repeat films ordered There is irregularity of the left greater trochanter indicative of a injury. This is probably an old fracture. However please correlate clinically. There is no fracture of the femoral neck or intertrochanteric region bilaterally. The bones are osteopenic. There is no malalignment of either hip identified. IMPRESSION: Irregularity of the left greater trochanter which may be indicative of a previous fracture. Doubt acute injury. However please correlate clinically. Generalized osteopenia (3) Severe protein-calorie malnutrition (4) Rhabdomyolysis (5) Acidosis (6) Adult Failure To Thrive Assessment & Plan: improving tube feeds (7) Pressure Ulcer Of Sacral Region, Unstageable Assessment & Plan: 1) Dehydration Assessment & Plan: AMS, found down dehydration improved with IVF ICD Codes: E86.0 - Dehydration SNOMED: 32551916 (2) Failure to thrive SNOMED: 30732154 (3) Rhabdomyolysis Assessment & Plan: likely from being down IV fluids trending down - resolved will monitor ICD Codes: M62.82 - Rhabdomyolysis SNOMED: 482929395 (4) Blood blister Assessment & Plan: Patient presented with multiple DTI and Blood blisters Found down prior and noted on eval in ED at [place]. [place] [facility] [place] with 8.8cm x 9cm sacral DTI with oozing on right sacral with resorbing blood blister. periwound intact and stable. Right scapula DTI 9.9cm x 5cm purple and indurated without drainage Left thoracic DTI 1cm x 3.5cm purple and indurated without drainage bilateral heels stable and soft with blanching no other skin concerns noted at this time see below as changed Tx Plan: Monitor wounds for drainage. Will apply skin protectant and Optifoam dressings Daily and prn saturation Keep heels off loaded with pillows Air soft mattress Turn q2h Nutritional optimization Will follow with recs. ICD Codes: T14.8XXA - Other injury of unspecified body region, initial encounter SNOMED: 228971256 (5) Lactic acid acidosis Assessment & Plan: IV fluids resuscitation trend resolved ICD Codes: E87.2 - Acidosis SNOMED: 57443408 (6) Hip fracture, left Assessment & Plan: lucency noted on plain films no pain on exam repeat films ordered and noted ICD Codes: S72.002A - Fracture of unspecified part of neck of left femur, initial encounter for closed fracture SNOMED: 146774336 (7) Deep tissue injury ICD Codes: T14.8XXA - Other injury of unspecified body region, initial encounter SNOMED: 380657887 (8) Pancreatitis Assessment & Plan: arnaldo and lip improved MRI noted exam benign no complaints tolerating feeds given above cont with tube feeds. okay to advance to goal trend labs will monitor (9) Unstageable decubitus ulcer Assessment & Plan: Patient presented with multiple deep tissue injuries from being down for unknown period of time. Blood blisters were forming around some of these wounds. On ablation today bedside patient's sacral wound was noted blood pressure had resolved and underlying patient has now a unstageable sacral decubitus ulcer with the coccygeal area having a stage III open wound approximately 2 cm x 1 cm x 0.4 mm deep. Periwound is intact. Eschar noted and stable. No fluctuance. No significant tenderness on palpation. No drainage. No foul order. The area and complete is approximately 8 cm wide by 5 cm long Wounds unlikely etiology of fevers. Likely etiology is patient's pancreatitis which is resolving. Treatment plan changed. Recommend washing sacral decubitus ulcer daily with normal saline. Apply Thera honey impregnated gauze followed by up to foam dressing. Continue with standard decubitus precautions. will likely need debridement as he improves crosshatched James Breen Sep 11, 2019 17:13
--- NOTE | 2019-09-11 19:15 | NUR ---
HAND-OFF: Report given to JOHNNY Huynh. Addendum: 09/11/19 at 1924 by Breanne Elliott RN HAND-OFF: Report given to JOHNNY Cuellar. Addendum: 09/11/19 at 1924 by Breanne Elliott RN WRONG NURSE
--- NOTE | 2019-09-11 19:24 | NUR ---
HAND-OFF: Report given to JOHNNY Cuellar.
[2019-09-11 20:00] VITALS: BP 130/74
--- NOTE | 2019-09-11 20:00 | NUR ---
NURSE NOTES: received pt in bed on NC 2 L/min. AAO x 1. Well tolerating with GT feeding. Bilateral soft restraints on wrists intact and no skin breakdown under the restraints. IV site intact and patent,NS @ 75 ml/hr running. Adams catheter via gravity. No c/o pain. no acute distress noted this time. call light within reach. bed is the lowest position. will continue to provide plan of care.
[2019-09-12] VITALS: BP 139/70
[2019-09-12 04:00] VITALS: BP 140/69
[2019-09-12] MEDS: NovoLOG Insulin Flexpen SUBQ SCH ×4 (06:03→20:58)
[2019-09-12] MEDS: Heparin 5000 units/ml inj SUBQ SCH ×3 (06:03→21:01)
[2019-09-12 07:00] LABS: BASOPHILS % (AUTO) 0.8 % (0.0-2.0); EOSINOPHILS % (AUTO) 1.2 % (0.0-3.0); HEMOGLOBIN 9.9 G/DL (14.2-18.0); LYMPHOCYTES % (AUTO) 17.6 % (20.0-45.0); MEAN CORPUSCULAR VOLUME 88 FL (80-99); MONOCYTES % (AUTO) 8.1 % (1.0-10.0); NEUTROPHILS % (AUTO) 72.3 % (45.0-75.0); PLATELET COUNT 426 K/UL (150-450); RED BLOOD COUNT 3.54 M/UL (4.70-6.10); RED CELL DISTRIBUTION WIDTH 15.2 % (11.6-14.8)
[2019-09-12 07:11] LABS: ALANINE AMINOTRANSFERASE 27 U/L (12-78); ALBUMIN 1.3 G/DL (3.4-5.0); ALBUMIN/GLOBULIN RATIO 0.3 (1.0-2.7); ALKALINE PHOSPHATASE 176 U/L (46-116); ANION GAP 5 mmol/L (5-15); ASPARTATE AMINO TRANSFERASE 36 U/L (15-37); BILIRUBIN,TOTAL 0.4 MG/DL (0.2-1.0); BLOOD UREA NITROGEN 9 mg/dL (7-18); CALCIUM 7.5 MG/DL (8.5-10.1); CARBON DIOXIDE 28 MMOL/L (21-32); CHLORIDE 108 MMOL/L (98-107); CREATININE 0.7 MG/DL (0.55-1.30); PHOSPHORUS 1.8 MG/DL (2.5-4.9); POTASSIUM 4.5 MMOL/L (3.5-5.1); SODIUM 141 MMOL/L (136-145)
--- NOTE | 2019-09-12 07:40 | NUR ---
NURSE NOTES: Received report on patient in 415-1. 22 g IV in left ac patent and in tact with fluids running at 75 mL / hr. Patient tolerating tube feeding via G tube. G tube patent, in tact, running Glucerna 1.2 at 60 mL/hr. Adams catheter draining to gravity. Soft wrist restraints in place, radial pulse palpable, no edema, good capillary refill. Patient not in distress, no pain, bed in lowest position, head of the bed elevated at 30 degrees. Will continue plan of care.
--- NOTE | 2019-09-12 07:40 | NUR ---
HAND-OFF: Report given to Melody TURNER and Efe TURNER.
--- NOTE | 2019-09-12 07:42 | NUR ---
NURSE NOTES: Received patient in bed,awake, HOB elevated with GT feeding of glucerna 1.2 @60cc/hr. No residual and no episodes of nausea or vomiting. Abdomen is not distended. Adams is intact and draining well to gravity with yellowish urine. No sediments or blood. Patient is on bilateral soft wrist restraints. RN released restraints and patient still noted with episodes of grabbing GT and IV tubing. re-educated on restraints and removal criteria. No swelling or skin break on wrist and arms , pulses present. Bed is in lowest position and locked. Will continue plan of care.
[2019-09-12 08:00] VITALS: BP 135/61
[2019-09-12] MEDS: Levemir Flexpen SUBQ SCH (08:44)
[2019-09-12] MEDS: Benazepril 10mg tab NG SCH (08:45)
[2019-09-12] MEDS: Aspirin Baby 81mg NG SCH (08:45)
[2019-09-12] MEDS ORDERED: Sterile Water Irrig 1000ml IRRIG ONE (09:48)
--- NOTE | 2019-09-12 10:40 | Pulmonology Progress Note ---
Assessment/Plan Assessment/Plan ASSESSMENT Failure to thrive Acute toxic metabolic encephalopathy Possible sepsis vs SIRS Pancreatitis Left hip fracture Possible UTI Severe protein calorie malnutrition Dysphagia Aspiration risk s/p EGD with PEG placement Gastritis Diabetes mellitus Hypertension Dehydration Hypernatremia Rhabdomyolysis Sacral decub, POA, un-stageable E/lyte imbalances PLAN OF CARE MS floor MRI of the brain -no acute intracranial findings X-ray of the left hip with findings suggestive fracture: chronic versus acute ; surgery on board. pain management IVF; monitor renal parameters, electrolytes ; correct electrolytes further as needed and avoid nephrotoxic's Mg and P replaced today trend CK ; rhabdo likely due to extended immobility after fall -resolved trend lipase and amylase, likely pancreatitis, CA 19-9 WNL abdominal ultrasound - no acute findings elevated inflammatory markers: ESR and CRP likely due to pancreatitis, ' keep off abx as per ID recs failed swallow eval s/p EGD with PEG placement aspiration precautions protein supplement as per RD recs s/p empiric abx for possible UTI UCX +Staph haemolyticus DVT prophylaxis O2 HHN PRN BS management with Levemir and SSI; [id number], BP management with JENNIFER and CCB a/PLT therapy with ASA supportive care need placement case discussed and evaluated by supervising physician Subjective Allergies: Coded Allergies: No Known Allergies (Unverified , 08/27/19) Subjective s/pPEG 09/09, tolerates feeding remains afebrile, no leucocytosis Objective Last 24 Hour Vital Signs Date Time Temp Pulse Resp B/P (MAP) Pulse Ox O2 Delivery O2 Flow Rate FiO2 09/12/19 09:00 Nasal Cannula 2.0 09/12/19 08:46 94 135/61 09/12/19 08:45 135/61 09/12/19 08:00 96.9 94 19 135/61 (85) 100 09/12/19 04:00 99.5 90 20 140/69 (92) 97 09/12/19 00:00 99.0 93 22 139/70 (93) 98 09/11/19 21:01 Nasal Cannula 2.0 09/11/19 20:00 100.4 89 19 130/74 (92) 09/11/19 16:00 99.9 90 19 127/68 (87) 99 09/11/19 12:00 100.1 88 19 136/62 (86) 100 Intake and Output 09/11/19 09/12/19 19:00 07:00 Intake Total 1410 ml 1545 ml Output Total 1175 ml Balance 235 ml 1545 ml Free Water 240 ml 60 ml IV Total 450 ml 885 ml Tube Feeding 720 ml 600 ml Output Urine Total 1175 ml Objective General Appearance: no acute distress, cachetic, awake and more responsive , bedridden AA male HEENT: normocephalic, atraumatic, anicteric, NG tube Respiratory/Chest: lungs clear - with moderate air exchange Cardiovascular: normal rate Abdomen: normal bowel sounds, soft, non tender Neurologic/Psychiatric: abnormal gait - bedridden , more responsive, contracted Musculoskeletal: atrophy Microbiology Date/Time Source Procedure Growth Status 09/11/19 16:14 Nasopharynx - Final Complete 09/11/19 16:14 Nasopharynx - Final Complete Laboratory Tests 09/11/19 16:14: Urine Color Yellow, Urine Appearance Clear, Urine pH 6.5, Urine Specific [place] 1.005, Urine Protein 2+H, Urine Glucose (UA) 1+H, Urine Ketones Negative , Urine Blood 1+H, Urine Nitrite Negative, Urine Bilirubin Negative, Urine Urobilinogen 1H, Urine Leukocyte Esterase Negative, Urine RBC 0-2H, Urine WBC 0- 2, Urine Squamous Epithelial Cells None, Urine Bacteria None 09/12/19 05:10: White Blood Count 8.0, Red Blood Count 3.54L, Hemoglobin 9.9L, Hematocrit 31.0L , Mean Corpuscular Volume 88, Mean Corpuscular Hemoglobin 27.9, Mean Corpuscular Hemoglobin Concent 31.9L, Red Cell Distribution Width 15.2H, Platelet Count 426, Mean Platelet Volume 6.1L, Neutrophils (%) (Auto) 72.3, Lymphocytes (%) (Auto) 17.6L, Monocytes (%) (Auto) 8.1, Eosinophils (%) (Auto) 1.2, Basophils (%) (Auto) 0.8, Erythrocyte Sedimentation Rate 96H, Sodium Level 141, Potassium Level 4.5, Chloride Level 108H, Carbon Dioxide Level 28, Anion Gap 5, Blood Urea Nitrogen 9, Creatinine 0.7, Estimat Glomerular Filtration Rate , Glucose Level 230H, Calcium Level 7.5L, Phosphorus Level 1.8L, Magnesium Level 1.7L, Total Bilirubin 0.4, Aspartate Amino Transf (AST/SGOT) 36, Alanine Aminotransferase (ALT/SGPT) 27, Alkaline Phosphatase 176H, C-Reactive Protein, Quantitative 13.8H, Total Protein 6.0L, Albumin 1.3L, Globulin 4.7, Albumin/ Globulin Ratio 0.3L, Amylase Level 137H, Lipase 720H Current Medications Medications (Trade) Dose Ordered Sig/Debi Route PRN Reason Start Time Stop Time Status Last Admin Dose Admin Acetaminophen (Tylenol) 650 mg Q4H PRN RECTAL Prn Headache/Temp > 101 08/27/19 12:00 09/26/19 11:59 08/29/19 00:34 Acetaminophen (Tylenol) 650 mg Q6H PRN NG Mild Pain/Temp > 100.5 09/03/19 10:30 09/26/19 01:59 09/11/19 00:03 Amlodipine Besylate (Norvasc) 10 mg DAILY NG 09/03/19 11:00 10/03/19 10:59 09/12/19 08:46 Aspirin (ASA) 81 mg DAILY NG 09/03/19 11:00 09/26/19 08:59 09/12/19 08:45 Benazepril HCl (Lotensin) 10 mg DAILY NG 09/03/19 11:00 10/03/19 10:59 09/12/19 08:45 Dextrose (Dextrose 50%) 25 ml Q30M PRN IV Hypoglycemia 08/27/19 15:15 09/26/19 15:14 Dextrose (Dextrose 50%) 50 ml Q30M PRN IV Hypoglycemia 08/27/19 15:15 09/26/19 15:14 Heparin Sodium (Porcine) (Heparin 5000 units/ml) 5,000 units EVERY 8 HOURS SUBQ 08/27/19 06:00 09/26/19 05:59 09/12/19 06:03 Insulin Aspart (NovoLOG) BEFORE MEALS AND HS SUBQ 08/29/19 11:30 09/28/19 11:29 09/12/19 06:03 Insulin Detemir (Levemir) 6 units DAILY SUBQ 08/30/19 12:00 09/29/19 11:59 09/12/19 08:44 Morphine Sulfate (Morphine Sulfate) 2 mg Q4H PRN IVP For Pain 09/05/19 11:45 09/12/19 11:44 Sodium Chloride 1,000 ml @ 75 mls/hr [id number] IV 09/06/19 14:15 10/06/19 14:14 09/12/19 00:39 Kim Mahoney NP Sep 12, 2019 10:40
--- NOTE | 2019-09-12 11:00 | NUR ---
NURSE NOTES: Upon wound assessment, noted right scapula with full thickness and slough. Patient admitted with DTI on right scapula. Initiated wound care per protocol and will follow up with MD. No changes in sacral wound. Proper skin care done.No new pressure sore noted on pressure points.
[2019-09-12] MEDS ORDERED: Morphine Sulfate 2mg/ml Inj(IV/IM USE ONLY) IVP PRN (11:45)
[2019-09-12 12:00] VITALS: BP 141/73
[2019-09-12] MEDS: Phospha 250 Neutral tab ORAL SCH ×2 (12:52→17:24)
--- NOTE | 2019-09-12 13:30 | NUR ---
NURSE NOTES: patient was seen by Dr. Breen and RN relayed the wound on right scapula. MD is aware and checked the site with new order to apply therahoney.
--- NOTE | 2019-09-12 14:40 | Internal Med Progress Note ---
Subjective Date of Service: Sep 12, 2019 Physician Name JordynTello Attending Physician Cirilo Rome MD Current Medications Medications (Trade) Dose Ordered Sig/Debi Route PRN Reason Start Time Stop Time Status Last Admin Dose Admin Acetaminophen (Tylenol) 650 mg Q4H PRN RECTAL Prn Headache/Temp > 101 08/27/19 12:00 09/26/19 11:59 08/29/19 00:34 Acetaminophen (Tylenol) 650 mg Q6H PRN NG Mild Pain/Temp > 100.5 09/03/19 10:30 09/26/19 01:59 09/11/19 00:03 Amlodipine Besylate (Norvasc) 10 mg DAILY NG 09/03/19 11:00 10/03/19 10:59 09/12/19 08:46 Aspirin (ASA) 81 mg DAILY NG 09/03/19 11:00 09/26/19 08:59 09/12/19 08:45 Benazepril HCl (Lotensin) 10 mg DAILY NG 09/03/19 11:00 10/03/19 10:59 09/12/19 08:45 Dextrose (Dextrose 50%) 25 ml Q30M PRN IV Hypoglycemia 08/27/19 15:15 09/26/19 15:14 Dextrose (Dextrose 50%) 50 ml Q30M PRN IV Hypoglycemia 08/27/19 15:15 09/26/19 15:14 Heparin Sodium (Porcine) (Heparin 5000 units/ml) 5,000 units EVERY 8 HOURS SUBQ 08/27/19 06:00 09/26/19 05:59 09/12/19 06:03 Insulin Aspart (NovoLOG) BEFORE MEALS AND HS SUBQ 08/29/19 11:30 09/28/19 11:29 09/12/19 12:51 Insulin Detemir (Levemir) 6 units DAILY SUBQ 08/30/19 12:00 09/29/19 11:59 09/12/19 08:44 Morphine Sulfate (Morphine Sulfate) 2 mg Q4H PRN IVP For Pain 09/12/19 11:45 09/19/19 11:44 Phosphorus (Phospha 250 Neutral) 250 mg THREE TIMES A DAY ORAL 09/12/19 13:00 10/12/19 12:59 09/12/19 12:52 Sodium Chloride 1,000 ml @ 75 mls/hr [id number] IV 09/06/19 14:15 10/06/19 14:14 09/12/19 12:59 Allergies: Coded Allergies: No Known Allergies (Unverified , 08/27/19) ROS Limited/Unobtainable: Yes Subjective 78 YO M admitted with altered mental status. Now rhabdomyolysis and pancreatitis. Cover for Int Dusty-Dr Rome. S/P PEG 09/09/19 Objective Last Vital Signs Date Time Temp Pulse Resp B/P (MAP) Pulse Ox O2 Delivery O2 Flow Rate FiO2 09/12/19 12:00 99.9 99 18 141/73 (95) 99 09/12/19 09:00 Nasal Cannula 2.0 Laboratory Tests Test 09/11/19 16:14 09/12/19 05:10 Urine Color Yellow Urine Appearance Clear Urine pH 6.5 (4.5-8.0) Urine Specific [place] 1.005 (1.005-1.035) Urine Protein 2+ (NEGATIVE) H Urine Glucose (UA) 1+ (NEGATIVE) H Urine Ketones Negative (NEGATIVE) Urine Blood 1+ (NEGATIVE) H Urine Nitrite Negative (NEGATIVE) Urine Bilirubin Negative (NEGATIVE) Urine Urobilinogen 1 MG/DL (0.0-1.0) H Urine Leukocyte Esterase Negative (NEGATIVE) Urine RBC 0-2 /HPF (0 - 0) H Urine WBC 0-2 /HPF (0 - 0) Urine Squamous Epithelial Cells None /LPF (NONE/OCC) Urine Bacteria None /HPF (NONE) White Blood Count 8.0 K/UL (4.8-10.8) Red Blood Count 3.54 M/UL (4.70-6.10) L Hemoglobin 9.9 G/DL (14.2-18.0) L Hematocrit 31.0 % (42.0-52.0) L Mean Corpuscular Volume 88 FL (80-99) Mean Corpuscular Hemoglobin 27.9 PG (27.0-31.0) Mean Corpuscular Hemoglobin Concent 31.9 G/DL (32.0-36.0) L Red Cell Distribution Width 15.2 % (11.6-14.8) H Platelet Count 426 K/UL (150-450) Mean Platelet Volume 6.1 FL (6.5-10.1) L Neutrophils (%) (Auto) 72.3 % (45.0-75.0) Lymphocytes (%) (Auto) 17.6 % (20.0-45.0) L Monocytes (%) (Auto) 8.1 % (1.0-10.0) Eosinophils (%) (Auto) 1.2 % (0.0-3.0) Basophils (%) (Auto) 0.8 % (0.0-2.0) Erythrocyte Sedimentation Rate 96 MM/HR (0-20) H Sodium Level 141 MMOL/L (136-145) Potassium Level 4.5 MMOL/L (3.5-5.1) Chloride Level 108 MMOL/L (98-107) H Carbon Dioxide Level 28 MMOL/L (21-32) Anion Gap 5 mmol/L (5-15) Blood Urea Nitrogen 9 mg/dL (7-18) Creatinine 0.7 MG/DL (0.55-1.30) Estimat Glomerular Filtration Rate mL/min (>60) Glucose Level 230 MG/DL (74-106) H Calcium Level 7.5 MG/DL (8.5-10.1) L Phosphorus Level 1.8 MG/DL (2.5-4.9) L Magnesium Level 1.7 MG/DL (1.8-2.4) L Total Bilirubin 0.4 MG/DL (0.2-1.0) Aspartate Amino Transf (AST/SGOT) 36 U/L (15-37) Alanine Aminotransferase (ALT/SGPT) 27 U/L (12-78) Alkaline Phosphatase 176 U/L (46-116) H C-Reactive Protein, Quantitative 13.8 mg/dL (0.00-0.90) H Total Protein 6.0 G/DL (6.4-8.2) L Albumin 1.3 G/DL (3.4-5.0) L Globulin 4.7 g/dL Albumin/Globulin Ratio 0.3 (1.0-2.7) L Amylase Level 137 U/L (25-115) H Lipase 720 U/L (73-393) H Microbiology Date/Time Source Procedure Growth Status 09/11/19 16:14 Nasopharynx - Final Complete 09/11/19 16:14 Nasopharynx - Final Complete Intake and Output 11/29/19 11/30/19 18:59 06:59 Intake Total 1380 ml 1635 ml Output Total 1175 ml Balance 205 ml 1635 ml Free Water 210 ml 90 ml IV Total 450 ml 885 ml Tube Feeding 720 ml 660 ml Output Urine Total 1175 ml Objective PHYSICAL EXAMINATION: GENERAL: The patient is a well-developed and well-nourished male, who is essentially nonverbal. HEENT: Eyes, pupils equal and responsive to light and accommodation. Extraocular movements are intact. NECK: Supple without lymphadenopathy. CHEST: Lungs are clear to auscultation bilaterally without wheezes or rales. CARDIOVASCULAR: Regular rhythm and rate. S1, S2 normal without murmurs, rubs, or gallops. ABDOMEN: Soft, nontender, nondistended. Positive bowel sounds. No evidence of hepatosplenomegaly. Currently, no rebound or guarding noted. EXTREMITIES: Negative for clubbing, cyanosis, or edema. RECTAL: Not performed. GENITAL: Not performed. NEUROLOGIC: Cranial nerves II through XII are grossly intact without focal deficits. Assessment/Plan Assessment/Plan ASSESSMENT: This is a 78-year-old male with: 1. Altered mental status/encephalopathy 2. Fracture of the left femur greater trochanter. 3. Rhabdomyolysis. 4. Dehydration. 5. Diabetes type 2. 6. Hypertension. 7. Hypercholesterolemia. 8. Pancreatitis TREATMENT: 1. Altered mental status, this may be secondary to dehydration versus acute cerebrovascular accident. An MRI of the brain = no acute dis. 2. Fracture of the left femur greater trochanter. An Orthopedic consultation has been obtained with Dr. Frederic Weir. 3. Rhabdomyolysis. The patient is currently receiving intravenous fluids. 4. Dehydration. The patient is currently receiving intravenous fluids. 5. Diabetes type 2. A NovoLog sliding scale has been instituted. 6. Hypertension. Continue benazepril, hydrochlorothiazide as above. 7. Hypercholesterolemia. Continue pravastatin as above. 8. MRCP=normal-see GI consult 9. S/P PEG 09/09/19 10. Discharge planning: Tello Garcia MD Sep 12, 2019 14:40
--- NOTE | 2019-09-12 14:44 | Surgery Progress Note ---
Surgery Progress Note Subjective Additional Comments Patient seen and examined bedside. Seen doing well. Labs noted. On examination the right scapular blood blister is open and there is a underlying stage III open wound with no signs of active infection. 3 cm in length by 1 cm wide by 2 mm deep. Beefy red with very small amount of slough. Objective Last 24 Hour Vital Signs Date Time Temp Pulse Resp B/P (MAP) Pulse Ox O2 Delivery O2 Flow Rate FiO2 09/12/19 12:00 99.9 99 18 141/73 (95) 99 09/12/19 09:00 Nasal Cannula 2.0 09/12/19 08:46 94 135/61 09/12/19 08:45 135/61 09/12/19 08:00 96.9 94 19 135/61 (85) 100 09/12/19 04:00 99.5 90 20 140/69 (92) 97 09/12/19 00:00 99.0 93 22 139/70 (93) 98 09/11/19 21:01 Nasal Cannula 2.0 09/11/19 20:00 100.4 89 19 130/74 (92) 09/11/19 16:00 99.9 90 19 127/68 (87) 99 I&O Intake and Output 09/11/19 09/12/19 19:00 07:00 Intake Total 1410 ml 1545 ml Output Total 1175 ml Balance 235 ml 1545 ml Free Water 240 ml 60 ml IV Total 450 ml 885 ml Tube Feeding 720 ml 600 ml Output Urine Total 1175 ml Dressing: saturated Wound: other Drains: other Cardiovascular: RSR Respiratory: clear Abdomen: soft, non-tender, present bowel sounds Extremities: no cyanosis, other Laboratory Tests Test 09/11/19 16:14 09/12/19 05:10 Urine Color Yellow Urine Appearance Clear Urine pH 6.5 (4.5-8.0) Urine Specific [place] 1.005 (1.005-1.035) Urine Protein 2+ (NEGATIVE) H Urine Glucose (UA) 1+ (NEGATIVE) H Urine Ketones Negative (NEGATIVE) Urine Blood 1+ (NEGATIVE) H Urine Nitrite Negative (NEGATIVE) Urine Bilirubin Negative (NEGATIVE) Urine Urobilinogen 1 MG/DL (0.0-1.0) H Urine Leukocyte Esterase Negative (NEGATIVE) Urine RBC 0-2 /HPF (0 - 0) H Urine WBC 0-2 /HPF (0 - 0) Urine Squamous Epithelial Cells None /LPF (NONE/OCC) Urine Bacteria None /HPF (NONE) White Blood Count 8.0 K/UL (4.8-10.8) Red Blood Count 3.54 M/UL (4.70-6.10) L Hemoglobin 9.9 G/DL (14.2-18.0) L Hematocrit 31.0 % (42.0-52.0) L Mean Corpuscular Volume 88 FL (80-99) Mean Corpuscular Hemoglobin 27.9 PG (27.0-31.0) Mean Corpuscular Hemoglobin Concent 31.9 G/DL (32.0-36.0) L Red Cell Distribution Width 15.2 % (11.6-14.8) H Platelet Count 426 K/UL (150-450) Mean Platelet Volume 6.1 FL (6.5-10.1) L Neutrophils (%) (Auto) 72.3 % (45.0-75.0) Lymphocytes (%) (Auto) 17.6 % (20.0-45.0) L Monocytes (%) (Auto) 8.1 % (1.0-10.0) Eosinophils (%) (Auto) 1.2 % (0.0-3.0) Basophils (%) (Auto) 0.8 % (0.0-2.0) Erythrocyte Sedimentation Rate 96 MM/HR (0-20) H Sodium Level 141 MMOL/L (136-145) Potassium Level 4.5 MMOL/L (3.5-5.1) Chloride Level 108 MMOL/L (98-107) H Carbon Dioxide Level 28 MMOL/L (21-32) Anion Gap 5 mmol/L (5-15) Blood Urea Nitrogen 9 mg/dL (7-18) Creatinine 0.7 MG/DL (0.55-1.30) Estimat Glomerular Filtration Rate mL/min (>60) Glucose Level 230 MG/DL (74-106) H Calcium Level 7.5 MG/DL (8.5-10.1) L Phosphorus Level 1.8 MG/DL (2.5-4.9) L Magnesium Level 1.7 MG/DL (1.8-2.4) L Total Bilirubin 0.4 MG/DL (0.2-1.0) Aspartate Amino Transf (AST/SGOT) 36 U/L (15-37) Alanine Aminotransferase (ALT/SGPT) 27 U/L (12-78) Alkaline Phosphatase 176 U/L (46-116) H C-Reactive Protein, Quantitative 13.8 mg/dL (0.00-0.90) H Total Protein 6.0 G/DL (6.4-8.2) L Albumin 1.3 G/DL (3.4-5.0) L Globulin 4.7 g/dL Albumin/Globulin Ratio 0.3 (1.0-2.7) L Amylase Level 137 U/L (25-115) H Lipase 720 U/L (73-393) H Plan Problems: (1) Failure to thrive (2) Hip fracture, left Assessment & Plan: lucency noted on plain films no pain on exam repeat films ordered There is irregularity of the left greater trochanter indicative of a injury. This is probably an old fracture. However please correlate clinically. There is no fracture of the femoral neck or intertrochanteric region bilaterally. The bones are osteopenic. There is no malalignment of either hip identified. IMPRESSION: Irregularity of the left greater trochanter which may be indicative of a previous fracture. Doubt acute injury. However please correlate clinically. Generalized osteopenia (3) Severe protein-calorie malnutrition (4) Rhabdomyolysis (5) Acidosis (6) Adult Failure To Thrive Assessment & Plan: improving tube feeds (7) Pressure Ulcer Of Sacral Region, Unstageable Assessment & Plan: 1) Dehydration Assessment & Plan: AMS, found down dehydration improved with IVF ICD Codes: E86.0 - Dehydration SNOMED: 56603044 (2) Failure to thrive SNOMED: 15368198 (3) Rhabdomyolysis Assessment & Plan: likely from being down IV fluids trending down - resolved will monitor ICD Codes: M62.82 - Rhabdomyolysis SNOMED: 652437602 (4) Blood blister Assessment & Plan: Patient presented with multiple DTI and Blood blisters Found down prior and noted on eval in ED at [place]. Seen upon admission to [facility] Patient with 8.8cm x 9cm sacral DTI with oozing on right sacral with resorbing blood blister. periwound intact and stable. Right scapula DTI 9.9cm x 5cm purple and indurated without drainage Left thoracic DTI 1cm x 3.5cm purple and indurated without drainage bilateral heels stable and soft with blanching no other skin concerns noted at this time see below as changed Tx Plan: Monitor wounds for drainage. Will apply skin protectant and Optifoam dressings Daily and prn saturation Keep heels off loaded with pillows Air soft mattress Turn q2h Nutritional optimization Will follow with recs. ICD Codes: T14.8XXA - Other injury of unspecified body region, initial encounter SNOMED: 472907022 (5) Lactic acid acidosis Assessment & Plan: IV fluids resuscitation trend resolved ICD Codes: E87.2 - Acidosis SNOMED: 87322327 (6) Hip fracture, left Assessment & Plan: lucency noted on plain films no pain on exam repeat films ordered and noted ICD Codes: S72.002A - Fracture of unspecified part of neck of left femur, initial encounter for closed fracture SNOMED: 721487814 (7) Deep tissue injury ICD Codes: T14.8XXA - Other injury of unspecified body region, initial encounter SNOMED: 804593489 (8) Pancreatitis Assessment & Plan: arnaldo and lip improved MRI noted exam benign no complaints tolerating feeds given above cont with tube feeds. okay to advance to goal trend labs will monitor (9) Unstageable decubitus ulcer Assessment & Plan: Patient presented with multiple deep tissue injuries from being down for unknown period of time. Blood blisters were forming around some of these wounds. On ablation today bedside patient's sacral wound was noted blood pressure had resolved and underlying patient has now a unstageable sacral decubitus ulcer with the coccygeal area having a stage III open wound approximately 2 cm x 1 cm x 0.4 mm deep. Periwound is intact. Eschar noted and stable. No fluctuance. No significant tenderness on palpation. No drainage. No foul order. The area and complete is approximately 8 cm wide by 5 cm long Wounds unlikely etiology of fevers. Likely etiology is patient's pancreatitis which is resolving. Treatment plan changed. Recommend washing sacral decubitus ulcer daily with normal saline. Apply Thera honey impregnated gauze followed by up to foam dressing. Continue with standard decubitus precautions. will likely need debridement as he improves crosshatched right scapular blood blister is open and there is a underlying stage III open wound with no signs of active infection. 3 cm in length by 1 cm wide by 2 mm deep. Beefy red with very small amount of slough. James Breen Sep 12, 2019 14:44
[2019-09-12] MEDS: Acetaminophen 650mg/20.3ml NG PRN (15:08)
[2019-09-12 16:00] VITALS: BP 126/64
--- NOTE | 2019-09-12 19:17 | NUR ---
HAND-OFF: Report given to Alisa TURNER.
[2019-09-12 20:00] VITALS: BP 127/75
--- NOTE | 2019-09-12 20:00 | NUR ---
NURSE NOTES: received pt in bed on NC 2 L/min. AAO x 1. Bilateral soft restraints on wrists intact and no skin breakdown under the restraints. IV site intact and patent,NS @ 75 ml/hr running. Adams catheter via gravity. Well tolerating with GT feeding.No c/o pain. no acute distress noted this time. call light within reach. bed is the lowest position. will continue to provide plan of care.
[2019-09-13] VITALS: BP 134/74
[2019-09-13 04:00] VITALS: BP 126/64
[2019-09-13] MEDS: Acetaminophen 650mg/20.3ml NG PRN (04:41)
[2019-09-13] MEDS: Heparin 5000 units/ml inj SUBQ SCH ×3 (05:40→21:23)
[2019-09-13] MEDS: NovoLOG Insulin Flexpen SUBQ SCH ×4 (05:41→23:22)
[2019-09-13 07:17] LABS: ANION GAP 4 mmol/L (5-15); BLOOD UREA NITROGEN 9 mg/dL (7-18); CALCIUM 7.5 MG/DL (8.5-10.1); CARBON DIOXIDE 29 MMOL/L (21-32); CHLORIDE 108 MMOL/L (98-107); CREATININE 0.6 MG/DL (0.55-1.30); POTASSIUM 3.3 MMOL/L (3.5-5.1); SODIUM 141 MMOL/L (136-145)
[2019-09-13 07:20] LABS: BASOPHILS % (AUTO) 0.4 % (0.0-2.0); EOSINOPHILS % (AUTO) 1.5 % (0.0-3.0); HEMATOCRIT 28.2 % (42.0-52.0); HEMOGLOBIN 8.9 G/DL (14.2-18.0); LYMPHOCYTES % (AUTO) 22.5 % (20.0-45.0); MEAN CORPUSCULAR VOLUME 88 FL (80-99); MONOCYTES % (AUTO) 6.8 % (1.0-10.0); NEUTROPHILS % (AUTO) 68.9 % (45.0-75.0); PLATELET COUNT 401 K/UL (150-450); RED BLOOD COUNT 3.23 M/UL (4.70-6.10); WHITE BLOOD COUNT 9.2 K/UL (4.8-10.8)
--- NOTE | 2019-09-13 07:47 | NUR ---
HAND-OFF: Report given to Otilio TURNER.
[2019-09-13 08:00] VITALS: BP 144/64
--- NOTE | 2019-09-13 08:00 | NUR ---
NURSE NOTES: Received patient in bed, awake, non verbal, no s/s of acute distress. Patient has GT, receives Glucerna 1.2 @ 60cc/hr, water flushes 150cc/q6hr. Patient has Adams catheter, draining to gravity yellow urine. Receives NS at 75cc/hr through Left AC 22G access. Bed locked at the lowest position possible, call light within easy reach, siderails upx3 and on p200 mattress. Will continue to monitor patient and follow up with the POC.
[2019-09-13] MEDS ORDERED: Sterile Water Irrig 1000ml IRRIG ONE (09:14)
[2019-09-13] MEDS: Phospha 250 Neutral tab ORAL SCH ×3 (09:14→18:26)
[2019-09-13] MEDS: Benazepril 10mg tab NG SCH (09:14)
[2019-09-13] MEDS: Aspirin Baby 81mg NG SCH (09:15)
[2019-09-13] MEDS: Levemir Flexpen SUBQ SCH (09:20)
--- NOTE | 2019-09-13 10:21 | Pulmonology Progress Note ---
Assessment/Plan Assessment/Plan ASSESSMENT Failure to thrive Acute toxic metabolic encephalopathy Possible sepsis vs SIRS Pancreatitis Left hip fracture Possible UTI Severe protein calorie malnutrition Dysphagia Aspiration risk s/p EGD with PEG placement Gastritis Diabetes mellitus Hypertension Dehydration Hypernatremia Rhabdomyolysis Sacral decub, POA, un-stageable E/lyte imbalances PLAN OF CARE MS floor MRI of the brain -no acute intracranial findings X-ray of the left hip with findings suggestive fracture: chronic versus acute ; surgery on board. pain management IVF; monitor renal parameters, electrolytes ; correct electrolytes further as needed and avoid nephrotoxic's replace K and P today trend CK ; rhabdo likely due to extended immobility after fall -resolved trend lipase and amylase, likely pancreatitis, CA 19-9 WNL abdominal ultrasound - no acute findings elevated inflammatory markers: ESR and CRP likely due to pancreatitis, ' keep off abx as per ID recs failed swallow eval s/p EGD with PEG placement aspiration precautions protein supplement as per RD recs s/p empiric abx for possible UTI UCX +Staph haemolyticus DVT prophylaxis O2 HHN PRN BS management with Levemir and SSI; [id number], BP management with JENNIFER and CCB a/PLT therapy with ASA supportive care need placement case discussed and evaluated by supervising physician Subjective Allergies: Coded Allergies: No Known Allergies (Unverified , 08/27/19) Subjective s/pPEG 09/09, tolerates feeding remains afebrile, no leucocytosis low K and P this am Objective Last 24 Hour Vital Signs Date Time Temp Pulse Resp B/P (MAP) Pulse Ox O2 Delivery O2 Flow Rate FiO2 09/13/19 09:14 144/64 09/13/19 09:14 86 144/64 09/13/19 05:11 99.3 09/13/19 04:00 100.5 91 17 126/64 (84) 100 09/13/19 00:00 97.8 96 18 134/74 (94) 09/12/19 22:11 Nasal Cannula 2.0 09/12/19 20:00 97.0 89 16 127/75 (92) 99 09/12/19 16:00 98.9 91 18 126/64 (84) 99 09/12/19 12:00 99.9 99 18 141/73 (95) 99 Intake and Output 09/12/19 09/13/19 19:00 07:00 Intake Total 1630 ml 1635 ml Output Total 1600 ml Balance 30 ml 1635 ml Free Water 120 ml 150 ml IV Total 850 ml 825 ml Tube Feeding 660 ml 660 ml Output Urine Total 1600 ml # Voids 1 Objective General Appearance: no acute distress, cachetic, awake and more responsive , bedridden AA male HEENT: normocephalic, atraumatic, anicteric, NG tube Respiratory/Chest: lungs clear - with moderate air exchange Cardiovascular: normal rate Abdomen: normal bowel sounds, soft, non tender Neurologic/Psychiatric: abnormal gait bedridden , more responsive, contracted Musculoskeletal: atrophy Microbiology Date/Time Source Procedure Growth Status 09/11/19 12:25 Blood Blood Culture - Preliminary NO GROWTH AFTER 24 HOURS Resulted 09/11/19 12:10 Blood Blood Culture - Preliminary NO GROWTH AFTER 24 HOURS Resulted 09/11/19 16:14 Nasopharynx - Final Complete 09/11/19 16:14 Nasopharynx - Final Complete Laboratory Tests 09/13/19 05:45: White Blood Count 9.2, Red Blood Count 3.23L, Hemoglobin 8.9L, Hematocrit 28.2L , Mean Corpuscular Volume 88, Mean Corpuscular Hemoglobin 27.6, Mean Corpuscular Hemoglobin Concent 31.5L, Red Cell Distribution Width 15.0H, Platelet Count 401, Mean Platelet Volume 6.5, Neutrophils (%) (Auto) 68.9, Lymphocytes (%) (Auto) 22.5, Monocytes (%) (Auto) 6.8, Eosinophils (%) (Auto) 1.5, Basophils (%) (Auto) 0.4, Sodium Level 141, Potassium Level 3.3L, Chloride Level 108H, Carbon Dioxide Level 29, Anion Gap 4L, Blood Urea Nitrogen 9, Creatinine 0.6, Estimat Glomerular Filtration Rate , Glucose Level 239H, Calcium Level 7.5L, Phosphorus Level 2.0L, Magnesium Level 1.9 Current Medications Medications (Trade) Dose Ordered Sig/Debi Route PRN Reason Start Time Stop Time Status Last Admin Dose Admin Acetaminophen (Tylenol) 650 mg Q4H PRN RECTAL Prn Headache/Temp > 101 08/27/19 12:00 09/26/19 11:59 08/29/19 00:34 Acetaminophen (Tylenol) 650 mg Q6H PRN NG Mild Pain/Temp > 100.5 11/21/19 10:30 09/26/19 01:59 09/13/19 04:41 Amlodipine Besylate (Norvasc) 10 mg DAILY NG 09/03/19 11:00 10/03/19 10:59 09/13/19 09:14 Aspirin (ASA) 81 mg DAILY NG 09/03/19 11:00 09/26/19 08:59 09/13/19 09:15 Benazepril HCl (Lotensin) 10 mg DAILY NG 09/03/19 11:00 10/03/19 10:59 09/13/19 09:14 Dextrose (Dextrose 50%) 25 ml Q30M PRN IV Hypoglycemia 08/27/19 15:15 09/26/19 15:14 Dextrose (Dextrose 50%) 50 ml Q30M PRN IV Hypoglycemia 08/27/19 15:15 09/26/19 15:14 Heparin Sodium (Porcine) (Heparin 5000 units/ml) 5,000 units EVERY 8 HOURS SUBQ 08/27/19 06:00 09/26/19 05:59 09/13/19 05:40 Insulin Aspart (NovoLOG) BEFORE MEALS AND HS SUBQ 08/29/19 11:30 09/28/19 11:29 09/13/19 05:41 Insulin Detemir (Levemir) 6 units DAILY SUBQ 08/30/19 12:00 09/29/19 11:59 09/13/19 09:20 Morphine Sulfate (Morphine Sulfate) 2 mg Q4H PRN IVP For Pain 09/12/19 11:45 09/19/19 11:44 Phosphorus (Phospha 250 Neutral) 250 mg THREE TIMES A DAY ORAL 09/12/19 13:00 10/12/19 12:59 09/13/19 09:14 Sodium Chloride 1,000 ml @ 75 mls/hr [id number] IV 09/06/19 14:15 10/06/19 14:14 09/13/19 04:06 Kim Mahoney NP Sep 13, 2019 10:21
--- NOTE | 2019-09-13 11:55 | Infectious Diseases Prog Note ---
Assessment/Plan Assessment/Plan Abx: Ceftriaxone 08/28- Cefoxitin x1 09/09 Assessment: Sepsis VS SIRS- probably due to pancreatitis- will repeat cultures and CXR to evaluate for concomitant infectious process NO leukocytosis Fever -08/28 u/a wbc 5-10, nit neg, leuk +1; ucx >100k S. haemolyticus Bcx neg -08/27 Bcx neg CXR: no acute disease Pancreatitis -MRI abdomen: Limited exam, as described. No definite pancreatic or peripancreatic abnormality demonstrated. No evidence of cholelithiasis, choledocholithiasis, or biliary ductal dilatation. 1 cm cyst immediately anterior to the inferior sal of the right hemidiaphragm at the level of the renal hilum, of uncertain etiology but doubtful significance. Prostatomegaly Incidental finding of bilateral renal cysts Acute encephalitis -Brain MRI: No acute intracranial findings. Moderate atrophy and evidence of chronic small vessel disease involving white matter tracts. s/p fall -xray pelvis: Irregularity of the left greater trochanter which may be indicative of a previous fracture. Doubt acute injury. However please correlate clinically. Generalized osteopenia FTT -09/09 SP EGD and PEG placement: --Findings: Gastritis. KELLY, SP Rhabdomylosis, improving Elevated AST -Abd US: No acute findings. Bilateral renal cysts Sacral decubitus ulcer Dm2 HLD HTN Plan: -Continue to monitor off abx Unless HD unstable, positive cultures and/or new infiltrates on CXR -09/09 SP Cetirixin x1 -09/03 SP Ceftriaxone #7 -f/u cx -Monitor CBC/CMP, temperatures -CXR -u/a w/ reflex, Bcx, influenza sc -aspiration precautions -PEG care -wound care per surgical team Thank you for this consultation. Will continue to follow along with you. Discussed with RN Subjective Allergies: Coded Allergies: No Known Allergies (Unverified , 08/27/19) Subjective Low grade fever No Leukocytosis Objective Vital Signs Last 24 Hour Vital Signs Date Time Temp Pulse Resp B/P (MAP) Pulse Ox O2 Delivery O2 Flow Rate FiO2 09/13/19 09:14 144/64 09/13/19 09:14 86 144/64 09/13/19 05:11 99.3 09/13/19 04:00 100.5 91 17 126/64 (84) 100 12/1/19 00:00 97.8 96 18 134/74 (94) 09/12/19 22:11 Nasal Cannula 2.0 09/12/19 20:00 97.0 89 16 127/75 (92) 99 09/12/19 16:00 98.9 91 18 126/64 (84) 99 09/12/19 12:00 99.9 99 18 141/73 (95) 99 Height (Feet): 5 Height (Inches): 8.00 Weight (Pounds): 149 Objective General Appearance: cachetic, thin, NAD HEENT: normocephalic, atraumatic, MMM Respiratory/Chest: chest wall non-tender, lungs clear Cardiovascular/Chest: RRR, S1, S2, normal peripheral pulses Abdomen: normal bowel sounds Microbiology Date/Time Source Procedure Growth Status 09/11/19 12:25 Blood Blood Culture - Preliminary NO GROWTH AFTER 24 HOURS Resulted 09/11/19 12:10 Blood Blood Culture - Preliminary NO GROWTH AFTER 24 HOURS Resulted 09/11/19 16:14 Nasopharynx - Final Complete 09/11/19 16:14 Nasopharynx - Final Complete Laboratory Tests Test 09/13/19 05:45 White Blood Count 9.2 K/UL (4.8-10.8) Red Blood Count 3.23 M/UL (4.70-6.10) L Hemoglobin 8.9 G/DL (14.2-18.0) L Hematocrit 28.2 % (42.0-52.0) L Mean Corpuscular Volume 88 FL (80-99) Mean Corpuscular Hemoglobin 27.6 PG (27.0-31.0) Mean Corpuscular Hemoglobin Concent 31.5 G/DL (32.0-36.0) L Red Cell Distribution Width 15.0 % (11.6-14.8) H Platelet Count 401 K/UL (150-450) Mean Platelet Volume 6.5 FL (6.5-10.1) Neutrophils (%) (Auto) 68.9 % (45.0-75.0) Lymphocytes (%) (Auto) 22.5 % (20.0-45.0) Monocytes (%) (Auto) 6.8 % (1.0-10.0) Eosinophils (%) (Auto) 1.5 % (0.0-3.0) Basophils (%) (Auto) 0.4 % (0.0-2.0) Sodium Level 141 MMOL/L (136-145) Potassium Level 3.3 MMOL/L (3.5-5.1) L Chloride Level 108 MMOL/L (98-107) H Carbon Dioxide Level 29 MMOL/L (21-32) Anion Gap 4 mmol/L (5-15) L Blood Urea Nitrogen 9 mg/dL (7-18) Creatinine 0.6 MG/DL (0.55-1.30) Estimat Glomerular Filtration Rate mL/min (>60) Glucose Level 239 MG/DL (74-106) H Calcium Level 7.5 MG/DL (8.5-10.1) L Phosphorus Level 2.0 MG/DL (2.5-4.9) L Magnesium Level 1.9 MG/DL (1.8-2.4) Current Medications Medications (Trade) Dose Ordered Sig/Debi Route PRN Reason Start Time Stop Time Status Last Admin Dose Admin Acetaminophen (Tylenol) 650 mg Q4H PRN RECTAL Prn Headache/Temp > 101 08/27/19 12:00 09/26/19 11:59 08/29/19 00:34 Acetaminophen (Tylenol) 650 mg Q6H PRN NG Mild Pain/Temp > 100.5 09/03/19 10:30 09/26/19 01:59 09/13/19 04:41 Amlodipine Besylate (Norvasc) 10 mg DAILY NG 09/03/19 11:00 10/03/19 10:59 09/13/19 09:14 Aspirin (ASA) 81 mg DAILY NG 09/03/19 11:00 09/26/19 08:59 09/13/19 09:15 Benazepril HCl (Lotensin) 10 mg DAILY NG 09/03/19 11:00 10/03/19 10:59 09/13/19 09:14 Dextrose (Dextrose 50%) 25 ml Q30M PRN IV Hypoglycemia 08/27/19 15:15 09/26/19 15:14 Dextrose (Dextrose 50%) 50 ml Q30M PRN IV Hypoglycemia 08/27/19 15:15 09/26/19 15:14 Heparin Sodium (Porcine) (Heparin 5000 units/ml) 5,000 units EVERY 8 HOURS SUBQ 08/27/19 06:00 09/26/19 05:59 09/13/19 05:40 Insulin Aspart (NovoLOG) BEFORE MEALS AND HS SUBQ 08/29/19 11:30 09/28/19 11:29 09/13/19 05:41 Insulin Detemir (Levemir) 6 units DAILY SUBQ 08/30/19 12:00 09/29/19 11:59 09/13/19 09:20 Morphine Sulfate (Morphine Sulfate) 2 mg Q4H PRN IVP For Pain 09/12/19 11:45 09/19/19 11:44 Phosphorus (Phospha 250 Neutral) 250 mg THREE TIMES A DAY ORAL 09/12/19 13:00 10/12/19 12:59 09/13/19 09:14 Potassium Phosphate 20 mm/ Sodium Chloride 281.6667 ml @ 46.94 mls/hr ONCE ONCE IV 09/13/19 13:00 09/13/19 19:00 Sodium Chloride 1,000 ml @ 75 mls/hr [id number] IV 09/06/19 14:15 10/06/19 14:14 09/13/19 04:06 Sonu Sarmiento MD Sep 13, 2019 11:55
[2019-09-13 12:00] VITALS: BP 167/74
[2019-09-13] MEDS ORDERED: Potassium Phosphate 20 MM in NS 275 ML IV ONE (13:00)
--- NOTE | 2019-09-13 13:46 | Surgery Progress Note ---
Surgery Progress Note Subjective Additional Comments Tolerating tube feeds. Comfortable appearing. Labs noted. Amylase lipase trending down. Low-grade fevers. Otherwise stable. Objective Last 24 Hour Vital Signs Date Time Temp Pulse Resp B/P (MAP) Pulse Ox O2 Delivery O2 Flow Rate FiO2 09/13/19 09:14 144/64 09/13/19 09:14 86 144/64 09/13/19 05:11 99.3 09/13/19 04:00 100.5 91 17 126/64 (84) 100 09/13/19 00:00 97.8 96 18 134/74 (94) 09/12/19 22:11 Nasal Cannula 2.0 09/12/19 20:00 97.0 89 16 127/75 (92) 99 09/12/19 16:00 98.9 91 18 126/64 (84) 99 I&O Intake and Output 09/12/19 09/13/19 19:00 07:00 Intake Total 1630 ml 1635 ml Output Total 1600 ml Balance 30 ml 1635 ml Free Water 120 ml 150 ml IV Total 850 ml 825 ml Tube Feeding 660 ml 660 ml Output Urine Total 1600 ml # Voids 1 Dressing: saturated Wound: clean Cardiovascular: RSR Respiratory: clear, decreased breath sounds Abdomen: soft, present bowel sounds Extremities: no cyanosis, other Laboratory Tests Test 09/13/19 05:45 White Blood Count 9.2 K/UL (4.8-10.8) Red Blood Count 3.23 M/UL (4.70-6.10) L Hemoglobin 8.9 G/DL (14.2-18.0) L Hematocrit 28.2 % (42.0-52.0) L Mean Corpuscular Volume 88 FL (80-99) Mean Corpuscular Hemoglobin 27.6 PG (27.0-31.0) Mean Corpuscular Hemoglobin Concent 31.5 G/DL (32.0-36.0) L Red Cell Distribution Width 15.0 % (11.6-14.8) H Platelet Count 401 K/UL (150-450) Mean Platelet Volume 6.5 FL (6.5-10.1) Neutrophils (%) (Auto) 68.9 % (45.0-75.0) Lymphocytes (%) (Auto) 22.5 % (20.0-45.0) Monocytes (%) (Auto) 6.8 % (1.0-10.0) Eosinophils (%) (Auto) 1.5 % (0.0-3.0) Basophils (%) (Auto) 0.4 % (0.0-2.0) Sodium Level 141 MMOL/L (136-145) Potassium Level 3.3 MMOL/L (3.5-5.1) L Chloride Level 108 MMOL/L (98-107) H Carbon Dioxide Level 29 MMOL/L (21-32) Anion Gap 4 mmol/L (5-15) L Blood Urea Nitrogen 9 mg/dL (7-18) Creatinine 0.6 MG/DL (0.55-1.30) Estimat Glomerular Filtration Rate mL/min (>60) Glucose Level 239 MG/DL (74-106) H Calcium Level 7.5 MG/DL (8.5-10.1) L Phosphorus Level 2.0 MG/DL (2.5-4.9) L Magnesium Level 1.9 MG/DL (1.8-2.4) Plan Problems: (1) Failure to thrive (2) Hip fracture, left Assessment & Plan: lucency noted on plain films no pain on exam repeat films ordered There is irregularity of the left greater trochanter indicative of a injury. This is probably an old fracture. However please correlate clinically. There is no fracture of the femoral neck or intertrochanteric region bilaterally. The bones are osteopenic. There is no malalignment of either hip identified. IMPRESSION: Irregularity of the left greater trochanter which may be indicative of a previous fracture. Doubt acute injury. However please correlate clinically. Generalized osteopenia (3) Severe protein-calorie malnutrition (4) Rhabdomyolysis (5) Acidosis (6) Adult Failure To Thrive Assessment & Plan: improving tube feeds (7) Pressure Ulcer Of Sacral Region, Unstageable Assessment & Plan: 1) Dehydration Assessment & Plan: AMS, found down dehydration improved with IVF ICD Codes: E86.0 - Dehydration SNOMED: 82882326 (2) Failure to thrive SNOMED: 55304890 (3) Rhabdomyolysis Assessment & Plan: likely from being down IV fluids trending down - resolved will monitor ICD Codes: M62.82 - Rhabdomyolysis SNOMED: 848399117 (4) Blood blister Assessment & Plan: Patient presented with multiple DTI and Blood blisters Found down prior and noted on eval in ED at [facility]. Seen upon admission to [facility] Patient with 8.8cm x 9cm sacral DTI with oozing on right sacral with resorbing blood blister. periwound intact and stable. Right scapula DTI 9.9cm x 5cm purple and indurated without drainage Left thoracic DTI 1cm x 3.5cm purple and indurated without drainage bilateral heels stable and soft with blanching no other skin concerns noted at this time see below as changed Tx Plan: Monitor wounds for drainage. Will apply skin protectant and Optifoam dressings Daily and prn saturation Keep heels off loaded with pillows Air soft mattress Turn q2h Nutritional optimization Will follow with recs. ICD Codes: T14.8XXA - Other injury of unspecified body region, initial encounter SNOMED: 379068751 (5) Lactic acid acidosis Assessment & Plan: IV fluids resuscitation trend resolved ICD Codes: E87.2 - Acidosis SNOMED: 86888612 (6) Hip fracture, left Assessment & Plan: lucency noted on plain films no pain on exam repeat films ordered and noted ICD Codes: S72.002A - Fracture of unspecified part of neck of left femur, initial encounter for closed fracture SNOMED: 565522450 (7) Deep tissue injury ICD Codes: T14.8XXA - Other injury of unspecified body region, initial encounter SNOMED: 934170875 (8) Pancreatitis Assessment & Plan: arnaldo and lip improved MRI noted exam benign no complaints tolerating feeds given above cont with tube feeds. okay to advance to goal trend labs will monitor (9) Unstageable decubitus ulcer Assessment & Plan: Patient presented with multiple deep tissue injuries from being down for unknown period of time. Blood blisters were forming around some of these wounds. On ablation today bedside patient's sacral wound was noted blood pressure had resolved and underlying patient has now a unstageable sacral decubitus ulcer with the coccygeal area having a stage III open wound approximately 2 cm x 1 cm x 0.4 mm deep. Periwound is intact. Eschar noted and stable. No fluctuance. No significant tenderness on palpation. No drainage. No foul order. The area and complete is approximately 8 cm wide by 5 cm long Wounds unlikely etiology of fevers. Likely etiology is patient's pancreatitis which is resolving. Treatment plan changed. Recommend washing sacral decubitus ulcer daily with normal saline. Apply Thera honey impregnated gauze followed by up to foam dressing. Continue with standard decubitus precautions. will likely need debridement as he improves crosshatched right scapular blood blister is open and there is a underlying stage III open wound with no signs of active infection. 3 cm in length by 1 cm wide by 2 mm deep. Beefy red with very small amount of slough. Additional Comments Overall improving. Agree with monitoring off antibiotics unless acute change. Fevers likely from resolving pancreatitis. James Breen Sep 13, 2019 13:46
--- NOTE | 2019-09-13 14:32 | Internal Med Progress Note ---
Subjective Date of Service: Sep 13, 2019 Physician Name Tello Cobb Attending Physician Cirilo Rome MD Current Medications Medications (Trade) Dose Ordered Sig/Debi Route PRN Reason Start Time Stop Time Status Last Admin Dose Admin Acetaminophen (Tylenol) 650 mg Q4H PRN RECTAL Prn Headache/Temp > 101 08/27/19 12:00 09/26/19 11:59 08/29/19 00:34 Acetaminophen (Tylenol) 650 mg Q6H PRN NG Mild Pain/Temp > 100.5 09/03/19 10:30 09/26/19 01:59 09/13/19 04:41 Amlodipine Besylate (Norvasc) 10 mg DAILY NG 09/03/19 11:00 10/03/19 10:59 09/13/19 09:14 Aspirin (ASA) 81 mg DAILY NG 09/03/19 11:00 09/26/19 08:59 09/13/19 09:15 Benazepril HCl (Lotensin) 10 mg DAILY NG 09/03/19 11:00 10/03/19 10:59 09/13/19 09:14 Dextrose (Dextrose 50%) 25 ml Q30M PRN IV Hypoglycemia 08/27/19 15:15 09/26/19 15:14 Dextrose (Dextrose 50%) 50 ml Q30M PRN IV Hypoglycemia 08/27/19 15:15 09/26/19 15:14 Heparin Sodium (Porcine) (Heparin 5000 units/ml) 5,000 units EVERY 8 HOURS SUBQ 08/27/19 06:00 09/26/19 05:59 09/13/19 13:09 Insulin Aspart (NovoLOG) BEFORE MEALS AND HS SUBQ 08/29/19 11:30 09/28/19 11:29 09/13/19 13:00 Insulin Detemir (Levemir) 6 units DAILY SUBQ 08/30/19 12:00 09/29/19 11:59 09/13/19 09:20 Morphine Sulfate (Morphine Sulfate) 2 mg Q4H PRN IVP For Pain 09/12/19 11:45 09/19/19 11:44 Phosphorus (Phospha 250 Neutral) 250 mg THREE TIMES A DAY ORAL 09/12/19 13:00 10/12/19 12:59 09/13/19 12:38 Potassium Phosphate 20 mm/ Sodium Chloride 281.6667 ml @ 46.94 mls/hr ONCE ONCE IV 09/13/19 13:00 09/13/19 19:00 09/13/19 12:39 Sodium Chloride 1,000 ml @ 75 mls/hr [id number] IV 09/06/19 14:15 10/06/19 14:14 09/13/19 04:06 Allergies: Coded Allergies: No Known Allergies (Unverified , 08/27/19) ROS Limited/Unobtainable: Yes Subjective 78 YO M admitted with altered mental status. Now rhabdomyolysis and pancreatitis. Cover for Int Med-Dr Rome. S/P PEG 09/09/19 Objective Last Vital Signs Date Time Temp Pulse Resp B/P (MAP) Pulse Ox O2 Delivery O2 Flow Rate FiO2 09/13/19 09:14 144/64 09/13/19 09:14 86 09/13/19 05:11 99.3 09/13/19 04:00 17 100 09/12/19 22:11 Nasal Cannula 2.0 Laboratory Tests Test 09/13/19 05:45 White Blood Count 9.2 K/UL (4.8-10.8) Red Blood Count 3.23 M/UL (4.70-6.10) L Hemoglobin 8.9 G/DL (14.2-18.0) L Hematocrit 28.2 % (42.0-52.0) L Mean Corpuscular Volume 88 FL (80-99) Mean Corpuscular Hemoglobin 27.6 PG (27.0-31.0) Mean Corpuscular Hemoglobin Concent 31.5 G/DL (32.0-36.0) L Red Cell Distribution Width 15.0 % (11.6-14.8) H Platelet Count 401 K/UL (150-450) Mean Platelet Volume 6.5 FL (6.5-10.1) Neutrophils (%) (Auto) 68.9 % (45.0-75.0) Lymphocytes (%) (Auto) 22.5 % (20.0-45.0) Monocytes (%) (Auto) 6.8 % (1.0-10.0) Eosinophils (%) (Auto) 1.5 % (0.0-3.0) Basophils (%) (Auto) 0.4 % (0.0-2.0) Sodium Level 141 MMOL/L (136-145) Potassium Level 3.3 MMOL/L (3.5-5.1) L Chloride Level 108 MMOL/L (98-107) H Carbon Dioxide Level 29 MMOL/L (21-32) Anion Gap 4 mmol/L (5-15) L Blood Urea Nitrogen 9 mg/dL (7-18) Creatinine 0.6 MG/DL (0.55-1.30) Estimat Glomerular Filtration Rate mL/min (>60) Glucose Level 239 MG/DL (74-106) H Calcium Level 7.5 MG/DL (8.5-10.1) L Phosphorus Level 2.0 MG/DL (2.5-4.9) L Magnesium Level 1.9 MG/DL (1.8-2.4) Microbiology Date/Time Source Procedure Growth Status 09/11/19 12:25 Blood Blood Culture - Preliminary NO GROWTH AFTER 24 HOURS Resulted 09/11/19 12:10 Blood Blood Culture - Preliminary NO GROWTH AFTER 24 HOURS Resulted 09/11/19 16:14 Nasopharynx - Final Complete 09/11/19 16:14 Nasopharynx - Final Complete Intake and Output 09/12/19 09/13/19 19:00 07:00 Intake Total 1630 ml 1635 ml Output Total 1600 ml Balance 30 ml 1635 ml Free Water 120 ml 150 ml IV Total 850 ml 825 ml Tube Feeding 660 ml 660 ml Output Urine Total 1600 ml # Voids 1 Objective PHYSICAL EXAMINATION: GENERAL: The patient is a well-developed and well-nourished male, who is essentially nonverbal. HEENT: Eyes, pupils equal and responsive to light and accommodation. Extraocular movements are intact. NECK: Supple without lymphadenopathy. CHEST: Lungs are clear to auscultation bilaterally without wheezes or rales. CARDIOVASCULAR: Regular rhythm and rate. S1, S2 normal without murmurs, rubs, or gallops. ABDOMEN: Soft, nontender, nondistended. Positive bowel sounds. No evidence of hepatosplenomegaly. Currently, no rebound or guarding noted. EXTREMITIES: Negative for clubbing, cyanosis, or edema. RECTAL: Not performed. GENITAL: Not performed. NEUROLOGIC: Cranial nerves II through XII are grossly intact without focal deficits. Assessment/Plan Assessment/Plan ASSESSMENT: This is a 78-year-old male with: 1. Altered mental status/encephalopathy 2. Fracture of the left femur greater trochanter. 3. Rhabdomyolysis. 4. Dehydration. 5. Diabetes type 2. 6. Hypertension. 7. Hypercholesterolemia. 8. Pancreatitis TREATMENT: 1. Altered mental status, this may be secondary to dehydration versus acute cerebrovascular accident. An MRI of the brain = no acute dis. 2. Fracture of the left femur greater trochanter. An Orthopedic consultation has been obtained with Dr. Frederic Weir. 3. Rhabdomyolysis. The patient is currently receiving intravenous fluids. 4. Dehydration. The patient is currently receiving intravenous fluids. 5. Diabetes type 2. A NovoLog sliding scale has been instituted. 6. Hypertension. Continue benazepril, hydrochlorothiazide as above. 7. Hypercholesterolemia. Continue pravastatin as above. 8. MRCP=normal-see GI consult 9. S/P PEG 09/09/19 10. Discharge planning: Tello Garcia MD Sep 13, 2019 14:32
[2019-09-13 16:00] VITALS: BP 140/80
--- NOTE | 2019-09-13 19:32 | NUR ---
HAND-OFF: Report given to JOHNNY Mendes.
--- NOTE | 2019-09-13 19:35 | NUR ---
NURSE NOTES: Received a report from JOHNNY Souza. Pt is in stable condition. Uses nasal cannula 2l/min. HOB elevated. GT feeding is running. IV site is patent and intact. Adams catheter is draining. B soft wrist restraints are noted. Bed in lowest position. Bed alarm is on. Call light within reach. Will continue to monitor.
[2019-09-13 20:00] VITALS: BP 131/67
[2019-09-14] VITALS: BP 133/65
[2019-09-14 04:00] VITALS: BP 120/61
[2019-09-14] MEDS: NovoLOG Insulin Flexpen SUBQ SCH ×3 (06:00→18:00)
[2019-09-14] MEDS: Heparin 5000 units/ml inj SUBQ SCH ×2 (06:01→13:21)
--- NOTE | 2019-09-14 07:00 | NUR ---
HAND-OFF: Report given to JOHNNY Watkins.
--- NOTE | 2019-09-14 07:05 | NUR ---
NURSE NOTES: Received pt in bed, AAO x 1. On NC 2 L/min. No s/s of distress/pain. IV on L AC 22g intact and patent, running NS @ 75 ml/hr. G-tube feeding @ 60 ml/hr. Adams catheter intact, draining with gravity. Bilateral soft restraints noted. Pulse present. Bed in the lowest, locked, and alarm on. Call light within reach. Will continue to monitor
[2019-09-14 07:44] LABS: BASOPHILS % (AUTO) 0.9 % (0.0-2.0); EOSINOPHILS % (AUTO) 2.5 % (0.0-3.0); HEMATOCRIT 30.4 % (42.0-52.0); HEMOGLOBIN 9.5 G/DL (14.2-18.0); MEAN CORPUSCULAR VOLUME 88 FL (80-99); MONOCYTES % (AUTO) 9.2 % (1.0-10.0); NEUTROPHILS % (AUTO) 59.4 % (45.0-75.0); PLATELET COUNT 428 K/UL (150-450); RED BLOOD COUNT 3.45 M/UL (4.70-6.10); RED CELL DISTRIBUTION WIDTH 15.4 % (11.6-14.8)
[2019-09-14 08:00] VITALS: BP 139/69
[2019-09-14 08:04] LABS: ANION GAP -1 mmol/L (5-15); BLOOD UREA NITROGEN 8 mg/dL (7-18); CALCIUM 7.8 MG/DL (8.5-10.1); CARBON DIOXIDE 35 MMOL/L (21-32); CHLORIDE 106 MMOL/L (98-107); CREATININE 0.6 MG/DL (0.55-1.30); PHOSPHORUS 2.7 MG/DL (2.5-4.9); POTASSIUM 3.6 MMOL/L (3.5-5.1); SODIUM 140 MMOL/L (136-145)
[2019-09-14] MEDS: Aspirin Baby 81mg NG SCH (09:05)
[2019-09-14] MEDS: Benazepril 10mg tab NG SCH (09:06)
[2019-09-14] MEDS: Phospha 250 Neutral tab ORAL SCH ×3 (09:06→18:00)
[2019-09-14] MEDS: Levemir Flexpen SUBQ SCH (09:07)
--- NOTE | 2019-09-14 10:14 | General Progress Note ---
Assessment/Plan Status: unchanged Assessment/Plan: Assessment/Plan Problems: (1) Pancreatitis ICD Codes: K85.90 - Acute pancreatitis without necrosis or infection, unspecified SNOMED: 65269280 (2) Acute encephalopathy ICD Codes: G93.40 - Encephalopathy, unspecified SNOMED: 06067966, 099150735 (3) Failure to thrive SNOMED: 43967572 (4) Severe protein-calorie malnutrition ICD Codes: E43 - Unspecified severe protein-calorie malnutrition SNOMED: 753443421, 074489995, 307654249 Status: stable, unchanged Assessment/Plan US reviewed, negative MRCP negative elevated lipase s/p PEG GTF GT care has some fever still fu ID repeat labs Subjective Allergies: Coded Allergies: No Known Allergies (Unverified , 08/27/19) Objective Last 24 Hour Vital Signs Date Time Temp Pulse Resp B/P (MAP) Pulse Ox O2 Delivery O2 Flow Rate FiO2 09/14/19 09:06 139/69 09/14/19 09:06 91 139/69 09/14/19 09:00 Nasal Cannula 2.0 09/14/19 08:00 99.3 91 19 139/69 (92) 99 09/14/19 04:00 99.1 86 16 120/61 (80) 100 09/14/19 00:00 97.0 96 18 133/65 (87) 100 09/13/19 21:00 Nasal Cannula 2.0 09/13/19 20:00 96.8 100 18 131/67 (88) 100 09/13/19 16:00 98.0 90 16 140/80 (100) 95 09/13/19 12:00 98.2 95 18 167/74 (105) 95 Intake and Output 09/13/19 09/14/19 18:59 06:59 Intake Total 731.64 ml 1695 ml Output Total 1100 ml 900 ml Balance -368.36 ml 795 ml Free Water 150 ml IV Total 731.64 ml 825 ml Tube Feeding 720 ml Output Urine Total 1100 ml 900 ml # Bowel Movements 1 Laboratory Tests 09/14/19 07:15: White Blood Count 9.0, Red Blood Count 3.45L, Hemoglobin 9.5L, Hematocrit 30.4L , Mean Corpuscular Volume 88, Mean Corpuscular Hemoglobin 27.5, Mean Corpuscular Hemoglobin Concent 31.3L, Red Cell Distribution Width 15.4H, Platelet Count 428, Mean Platelet Volume 6.7, Neutrophils (%) (Auto) 59.4, Lymphocytes (%) (Auto) 28.0, Monocytes (%) (Auto) 9.2, Eosinophils (%) (Auto) 2.5, Basophils (%) (Auto) 0.9, Sodium Level 140, Potassium Level 3.6, Chloride Level 106, Carbon Dioxide Level 35H, Anion Gap -1L, Blood Urea Nitrogen 8, Creatinine 0.6, Estimat Glomerular Filtration Rate , Glucose Level 175H, Calcium Level 7.8L, Phosphorus Level 2.7 Height (Feet): 5 Height (Inches): 8.00 Weight (Pounds): 149 General Appearance: no apparent distress EENT: normal ENT inspection Neck: normal alignment Cardiovascular: normal rate Respiratory/Chest: decreased breath sounds Abdomen: normal bowel sounds, non tender, soft Extremities: non-tender Alek Smith MD Sep 14, 2019 10:14
[2019-09-14 12:00] VITALS: BP 120/77
--- NOTE | 2019-09-14 12:28 | Infectious Diseases Prog Note ---
Assessment/Plan Assessment/Plan Assessment: Sepsis VS SIRS- probably due to pancreatitis 09/11 CXR: p Bcx NTD influenza sc neg NO leukocytosis Fever; improving -08/28 u/a wbc 5-10, nit neg, leuk +1; ucx >100k S. haemolyticus Bcx neg -08/27 Bcx neg CXR: no acute disease Pancreatitis -MRI abdomen: Limited exam, as described. No definite pancreatic or peripancreatic abnormality demonstrated. No evidence of cholelithiasis, choledocholithiasis, or biliary ductal dilatation. 1 cm cyst immediately anterior to the inferior sal of the right hemidiaphragm at the level of the renal hilum, of uncertain etiology but doubtful significance. Prostatomegaly Incidental finding of bilateral renal cysts Acute encephalitis -Brain MRI: No acute intracranial findings. Moderate atrophy and evidence of chronic small vessel disease involving white matter tracts. s/p fall -xray pelvis: Irregularity of the left greater trochanter which may be indicative of a previous fracture. Doubt acute injury. However please correlate clinically. Generalized osteopenia FTT -09/09 SP EGD and PEG placement: --Findings: Gastritis. KELLY, SP Rhabdomylosis, improving Elevated AST -Abd US: No acute findings. Bilateral renal cysts Sacral decubitus ulcer Dm2 HLD HTN Plan: -Continue to monitor off abx Unless HD unstable, positive cultures and/or new infiltrates on CXR -09/09 SP Cetirixin x1 -09/03 SP Ceftriaxone #7 -f/u cx -Monitor CBC/CMP, temperatures -f/u CXR -u/a w/ reflex, Bcx, influenza sc -aspiration precautions -PEG care -wound care per surgical team Thank you for this consultation. Will continue to follow along with you. Discussed with RN Subjective Allergies: Coded Allergies: No Known Allergies (Unverified , 08/27/19) Subjective afebrile >24hrs at 2l NC no leukocytosis Bcx NTD Objective Vital Signs Last 24 Hour Vital Signs Date Time Temp Pulse Resp B/P (MAP) Pulse Ox O2 Delivery O2 Flow Rate FiO2 09/14/19 09:06 139/69 09/14/19 09:06 91 139/69 09/14/19 09:00 Nasal Cannula 2.0 09/14/19 08:00 99.3 91 19 139/69 (92) 99 09/14/19 04:00 99.1 86 16 120/61 (80) 100 09/14/19 00:00 97.0 96 18 133/65 (87) 100 09/13/19 21:00 Nasal Cannula 2.0 09/13/19 20:00 96.8 100 18 131/67 (88) 100 09/13/19 16:00 98.0 90 16 140/80 (100) 95 Height (Feet): 5 Height (Inches): 8.00 Weight (Pounds): 149 Objective General Appearance: no apparent distress EENT: normal ENT inspection Neck: normal alignment Cardiovascular: normal rate Respiratory/Chest: decreased breath sounds Abdomen: normal bowel sounds, non tender, soft Extremities: non-tender Microbiology Date/Time Source Procedure Growth Status 09/11/19 12:25 Blood Blood Culture - Preliminary NO GROWTH AFTER 48 HOURS Resulted 09/11/19 16:14 Nasopharynx - Final Complete 09/11/19 16:14 Nasopharynx - Final Complete Laboratory Tests Test 09/14/19 07:15 White Blood Count 9.0 K/UL (4.8-10.8) Red Blood Count 3.45 M/UL (4.70-6.10) L Hemoglobin 9.5 G/DL (14.2-18.0) L Hematocrit 30.4 % (42.0-52.0) L Mean Corpuscular Volume 88 FL (80-99) Mean Corpuscular Hemoglobin 27.5 PG (27.0-31.0) Mean Corpuscular Hemoglobin Concent 31.3 G/DL (32.0-36.0) L Red Cell Distribution Width 15.4 % (11.6-14.8) H Platelet Count 428 K/UL (150-450) Mean Platelet Volume 6.7 FL (6.5-10.1) Neutrophils (%) (Auto) 59.4 % (45.0-75.0) Lymphocytes (%) (Auto) 28.0 % (20.0-45.0) Monocytes (%) (Auto) 9.2 % (1.0-10.0) Eosinophils (%) (Auto) 2.5 % (0.0-3.0) Basophils (%) (Auto) 0.9 % (0.0-2.0) Sodium Level 140 MMOL/L (136-145) Potassium Level 3.6 MMOL/L (3.5-5.1) Chloride Level 106 MMOL/L (98-107) Carbon Dioxide Level 35 MMOL/L (21-32) H Anion Gap -1 mmol/L (5-15) L Blood Urea Nitrogen 8 mg/dL (7-18) Creatinine 0.6 MG/DL (0.55-1.30) Estimat Glomerular Filtration Rate mL/min (>60) Glucose Level 175 MG/DL (74-106) H Calcium Level 7.8 MG/DL (8.5-10.1) L Phosphorus Level 2.7 MG/DL (2.5-4.9) Current Medications Medications (Trade) Dose Ordered Sig/Debi Route PRN Reason Start Time Stop Time Status Last Admin Dose Admin Acetaminophen (Tylenol) 650 mg Q4H PRN RECTAL Prn Headache/Temp > 101 08/27/19 12:00 09/26/19 11:59 08/29/19 00:34 Acetaminophen (Tylenol) 650 mg Q6H PRN NG Mild Pain/Temp > 100.5 09/03/19 10:30 09/26/19 01:59 09/13/19 04:41 Amlodipine Besylate (Norvasc) 10 mg DAILY NG 09/03/19 11:00 10/03/19 10:59 09/14/19 09:06 Aspirin (ASA) 81 mg DAILY NG 09/03/19 11:00 09/26/19 08:59 09/14/19 09:05 Benazepril HCl (Lotensin) 10 mg DAILY NG 09/03/19 11:00 10/03/19 10:59 09/14/19 09:06 Dextrose (Dextrose 50%) 25 ml Q30M PRN IV Hypoglycemia 08/27/19 15:15 09/26/19 15:14 Dextrose (Dextrose 50%) 50 ml Q30M PRN IV Hypoglycemia 08/27/19 15:15 09/26/19 15:14 Heparin Sodium (Porcine) (Heparin 5000 units/ml) 5,000 units EVERY 8 HOURS SUBQ 08/27/19 06:00 09/26/19 05:59 09/14/19 06:01 Insulin Aspart (NovoLOG) Q6H SUBQ 09/14/19 00:00 09/28/19 11:29 09/14/19 06:00 Insulin Detemir (Levemir) 6 units DAILY SUBQ 08/30/19 12:00 09/29/19 11:59 09/14/19 09:07 Morphine Sulfate (Morphine Sulfate) 2 mg Q4H PRN IVP For Pain 09/12/19 11:45 09/19/19 11:44 Phosphorus (Phospha 250 Neutral) 250 mg THREE TIMES A DAY ORAL 09/12/19 13:00 10/12/19 12:59 09/14/19 09:06 Sodium Chloride 1,000 ml @ 75 mls/hr [id number] IV 09/06/19 14:15 10/06/19 14:14 09/14/19 09:05 Blaire Greenwood M.D. Sep 14, 2019 12:28
--- NOTE | 2019-09-14 13:44 | Pulmonology Progress Note ---
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 (3) Acute encephalopathy (4) Severe protein-calorie malnutrition (5) History of hypertension (6) Diabetes mellitus Assessment/Plan more alert on Gtube, tolerating feeding, social work professor note reviewed, pt doesn't have anybody to make any decision for him mental status better tolerating feeding tube dc planning soon Subjective ROS Limited/Unobtainable: No Constitutional: Reports: no symptoms HEENT: Repors: no symptoms Allergies: Coded Allergies: No Known Allergies (Unverified , 08/27/19) Objective Last 24 Hour Vital Signs Date Time Temp Pulse Resp B/P (MAP) Pulse Ox O2 Delivery O2 Flow Rate FiO2 09/14/19 12:00 98.7 90 20 120/77 (91) 99 09/14/19 09:06 139/69 09/14/19 09:06 91 139/69 09/14/19 09:00 Nasal Cannula 2.0 09/14/19 08:00 99.3 91 19 139/69 (92) 99 09/14/19 04:00 99.1 86 16 120/61 (80) 100 09/14/19 00:00 97.0 96 18 133/65 (87) 100 09/13/19 21:00 Nasal Cannula 2.0 09/13/19 20:00 96.8 100 18 131/67 (88) 100 09/13/19 16:00 98.0 90 16 140/80 (100) 95 Intake and Output 09/13/19 09/14/19 19:00 07:00 Intake Total 791.64 ml 1635 ml Output Total 1100 ml 900 ml Balance -308.36 ml 735 ml Free Water 150 ml IV Total 731.64 ml 825 ml Tube Feeding 60 ml 660 ml Output Urine Total 1100 ml 900 ml # Bowel Movements 1 Objective still has ng tube General Appearance: cachetic HEENT: normocephalic, atraumatic Respiratory/Chest: chest wall non-tender, normal breath sounds Cardiovascular: normal rate, regular rhythm Abdomen: normal bowel sounds, soft, non tender Genitourinary: normal external genitalia Extremities: no cyanosis Skin: no rash, no lesions Microbiology Date/Time Source Procedure Growth Status 09/11/19 16:14 Nasopharynx - Final Complete 09/11/19 16:14 Nasopharynx - Final Complete Laboratory Tests 09/14/19 07:15: White Blood Count 9.0, Red Blood Count 3.45L, Hemoglobin 9.5L, Hematocrit 30.4L , Mean Corpuscular Volume 88, Mean Corpuscular Hemoglobin 27.5, Mean Corpuscular Hemoglobin Concent 31.3L, Red Cell Distribution Width 15.4H, Platelet Count 428, Mean Platelet Volume 6.7, Neutrophils (%) (Auto) 59.4, Lymphocytes (%) (Auto) 28.0, Monocytes (%) (Auto) 9.2, Eosinophils (%) (Auto) 2.5, Basophils (%) (Auto) 0.9, Sodium Level 140, Potassium Level 3.6, Chloride Level 106, Carbon Dioxide Level 35H, Anion Gap -1L, Blood Urea Nitrogen 8, Creatinine 0.6, Estimat Glomerular Filtration Rate , Glucose Level 175H, Calcium Level 7.8L, Phosphorus Level 2.7 Current Medications Medications (Trade) Dose Ordered Sig/Debi Route PRN Reason Start Time Stop Time Status Last Admin Dose Admin Acetaminophen (Tylenol) 650 mg Q4H PRN RECTAL Prn Headache/Temp > 101 08/27/19 12:00 09/26/19 11:59 08/29/19 00:34 Acetaminophen (Tylenol) 650 mg Q6H PRN NG Mild Pain/Temp > 100.5 09/03/19 10:30 09/26/19 01:59 09/13/19 04:41 Amlodipine Besylate (Norvasc) 10 mg DAILY NG 09/03/19 11:00 10/03/19 10:59 09/14/19 09:06 Aspirin (ASA) 81 mg DAILY NG 09/03/19 11:00 09/26/19 08:59 09/14/19 09:05 Benazepril HCl (Lotensin) 10 mg DAILY NG 09/03/19 11:00 10/03/19 10:59 09/14/19 09:06 Dextrose (Dextrose 50%) 25 ml Q30M PRN IV Hypoglycemia 08/27/19 15:15 09/26/19 15:14 Dextrose (Dextrose 50%) 50 ml Q30M PRN IV Hypoglycemia 08/27/19 15:15 09/26/19 15:14 Heparin Sodium (Porcine) (Heparin 5000 units/ml) 5,000 units EVERY 8 HOURS SUBQ 08/27/19 06:00 09/26/19 05:59 09/14/19 13:21 Insulin Aspart (NovoLOG) Q6H SUBQ 09/14/19 00:00 09/28/19 11:29 09/14/19 13:20 Insulin Detemir (Levemir) 6 units DAILY SUBQ 08/30/19 12:00 09/29/19 11:59 09/14/19 09:07 Morphine Sulfate (Morphine Sulfate) 2 mg Q4H PRN IVP For Pain 09/12/19 11:45 09/19/19 11:44 Phosphorus (Phospha 250 Neutral) 250 mg THREE TIMES A DAY ORAL 09/12/19 13:00 10/12/19 12:59 09/14/19 13:19 Sodium Chloride 1,000 ml @ 75 mls/hr [id number] IV 09/06/19 14:15 10/06/19 14:14 09/14/19 09:05 Latanya Mckeon MD Sep 14, 2019 13:44
[2019-09-14] MEDS ORDERED: LEVEMIR FL100 UNIT/1 SUBQ (13:45)
[2019-09-14] MEDS ORDERED: NOVOLOG100 UNITS1 SUBQ (13:45)
[2019-09-14 16:00] VITALS: BP 141/83
--- NOTE | 2019-09-14 16:40 | NUR ---
DISCHARGE PLANNING DISCHARGE ORDER NOTED Patient has been accepted to; [facility] [address] [place] [address] Bed: 31-B Skilled [phone] for Nurse to Nurse report [facility] ETA for transportation: 17:30
--- NOTE | 2019-09-14 18:34 | Surgery Progress Note ---
Surgery Progress Note Subjective Symptoms: improved, pain absent, tolerating diet, voiding well, passing flatus Objective Last 24 Hour Vital Signs Date Time Temp Pulse Resp B/P (MAP) Pulse Ox O2 Delivery O2 Flow Rate FiO2 09/14/19 16:00 99.2 104 20 141/83 (102) 99 09/14/19 12:00 98.7 90 20 120/77 (91) 99 09/14/19 09:06 139/69 09/14/19 09:06 91 139/69 09/14/19 09:00 Nasal Cannula 2.0 09/14/19 08:00 99.3 91 19 139/69 (92) 99 09/14/19 04:00 99.1 86 16 120/61 (80) 100 09/14/19 00:00 97.0 96 18 133/65 (87) 100 09/13/19 21:00 Nasal Cannula 2.0 09/13/19 20:00 96.8 100 18 131/67 (88) 100 I&O Intake and Output 09/13/19 09/14/19 19:00 07:00 Intake Total 791.64 ml 1635 ml Output Total 1100 ml 900 ml Balance -308.36 ml 735 ml Free Water 150 ml IV Total 731.64 ml 825 ml Tube Feeding 60 ml 660 ml Output Urine Total 1100 ml 900 ml # Bowel Movements 1 Dressing: saturated, other Wound: other Cardiovascular: RSR Respiratory: decreased breath sounds Abdomen: soft, present bowel sounds Extremities: no cyanosis, other Laboratory Tests Test 09/14/19 07:15 White Blood Count 9.0 K/UL (4.8-10.8) Red Blood Count 3.45 M/UL (4.70-6.10) L Hemoglobin 9.5 G/DL (14.2-18.0) L Hematocrit 30.4 % (42.0-52.0) L Mean Corpuscular Volume 88 FL (80-99) Mean Corpuscular Hemoglobin 27.5 PG (27.0-31.0) Mean Corpuscular Hemoglobin Concent 31.3 G/DL (32.0-36.0) L Red Cell Distribution Width 15.4 % (11.6-14.8) H Platelet Count 428 K/UL (150-450) Mean Platelet Volume 6.7 FL (6.5-10.1) Neutrophils (%) (Auto) 59.4 % (45.0-75.0) Lymphocytes (%) (Auto) 28.0 % (20.0-45.0) Monocytes (%) (Auto) 9.2 % (1.0-10.0) Eosinophils (%) (Auto) 2.5 % (0.0-3.0) Basophils (%) (Auto) 0.9 % (0.0-2.0) Sodium Level 140 MMOL/L (136-145) Potassium Level 3.6 MMOL/L (3.5-5.1) Chloride Level 106 MMOL/L (98-107) Carbon Dioxide Level 35 MMOL/L (21-32) H Anion Gap -1 mmol/L (5-15) L Blood Urea Nitrogen 8 mg/dL (7-18) Creatinine 0.6 MG/DL (0.55-1.30) Estimat Glomerular Filtration Rate mL/min (>60) Glucose Level 175 MG/DL (74-106) H Calcium Level 7.8 MG/DL (8.5-10.1) L Phosphorus Level 2.7 MG/DL (2.5-4.9) Plan Problems: (1) Failure to thrive (2) Hip fracture, left Assessment & Plan: lucency noted on plain films no pain on exam repeat films ordered There is irregularity of the left greater trochanter indicative of a injury. This is probably an old fracture. However please correlate clinically. There is no fracture of the femoral neck or intertrochanteric region bilaterally. The bones are osteopenic. There is no malalignment of either hip identified. IMPRESSION: Irregularity of the left greater trochanter which may be indicative of a previous fracture. Doubt acute injury. However please correlate clinically. Generalized osteopenia (3) Severe protein-calorie malnutrition (4) Rhabdomyolysis (5) Acidosis (6) Adult Failure To Thrive Assessment & Plan: improving tube feeds (7) Pressure Ulcer Of Sacral Region, Unstageable Assessment & Plan: 1) Dehydration Assessment & Plan: AMS, found down dehydration improved with IVF ICD Codes: E86.0 - Dehydration SNOMED: 67285163 (2) Failure to thrive SNOMED: 74714090 (3) Rhabdomyolysis Assessment & Plan: likely from being down IV fluids trending down - resolved will monitor ICD Codes: M62.82 - Rhabdomyolysis SNOMED: 327794228 (4) Blood blister Assessment & Plan: Patient presented with multiple DTI and Blood blisters Found down prior and noted on eval in ED at [facility]. [place] [facility] [place] with 8.8cm x 9cm sacral DTI with oozing on right sacral with resorbing blood blister. periwound intact and stable. Right scapula DTI 9.9cm x 5cm purple and indurated without drainage Left thoracic DTI 1cm x 3.5cm purple and indurated without drainage bilateral heels stable and soft with blanching no other skin concerns noted at this time see below as changed Tx Plan: Monitor wounds for drainage. Will apply skin protectant and Optifoam dressings Daily and prn saturation Keep heels off loaded with pillows Air soft mattress Turn q2h Nutritional optimization Will follow with recs. ICD Codes: T14.8XXA - Other injury of unspecified body region, initial encounter SNOMED: 350331877 (5) Lactic acid acidosis Assessment & Plan: IV fluids resuscitation trend resolved ICD Codes: E87.2 - Acidosis SNOMED: 64293011 (6) Hip fracture, left Assessment & Plan: lucency noted on plain films no pain on exam repeat films ordered and noted ICD Codes: S72.002A - Fracture of unspecified part of neck of left femur, initial encounter for closed fracture SNOMED: 439799506 (7) Deep tissue injury ICD Codes: T14.8XXA - Other injury of unspecified body region, initial encounter SNOMED: 022345416 (8) Pancreatitis Assessment & Plan: arnaldo and lip improved MRI noted exam benign no complaints tolerating feeds given above cont with tube feeds. okay to advance to goal trend labs will monitor (9) Unstageable decubitus ulcer Assessment & Plan: Patient presented with multiple deep tissue injuries from being down for unknown period of time. Blood blisters were forming around some of these wounds. On ablation today bedside patient's sacral wound was noted blood pressure had resolved and underlying patient has now a unstageable sacral decubitus ulcer with the coccygeal area having a stage III open wound approximately 2 cm x 1 cm x 0.4 mm deep. Periwound is intact. Eschar noted and stable. No fluctuance. No significant tenderness on palpation. No drainage. No foul order. The area and complete is approximately 8 cm wide by 5 cm long Wounds unlikely etiology of fevers. Likely etiology is patient's pancreatitis which is resolving. Treatment plan changed. Recommend washing sacral decubitus ulcer daily with normal saline. Apply Thera honey impregnated gauze followed by up to foam dressing. Continue with standard decubitus precautions. will likely need debridement as he improves crosshatched right scapular blood blister is open and there is a underlying stage III open wound with no signs of active infection. 3 cm in length by 1 cm wide by 2 mm deep. Beefy red with very small amount of slough. James Breen Sep 14, 2019 18:34
--- NOTE | 2019-09-14 19:01 | Internal Med Progress Note ---
Subjective Date of Service: Sep 14, 2019 Physician Name Tello Cobb Attending Physician Cirilo Rome MD Current Medications Medications (Trade) Dose Ordered Sig/Debi Route PRN Reason Start Time Stop Time Status Last Admin Dose Admin Acetaminophen (Tylenol) 650 mg Q4H PRN RECTAL Prn Headache/Temp > 101 08/27/19 12:00 09/26/19 11:59 08/29/19 00:34 Acetaminophen (Tylenol) 650 mg Q6H PRN NG Mild Pain/Temp > 100.5 09/03/19 10:30 09/26/19 01:59 09/13/19 04:41 Amlodipine Besylate (Norvasc) 10 mg DAILY NG 09/03/19 11:00 10/03/19 10:59 09/14/19 09:06 Aspirin (ASA) 81 mg DAILY NG 09/03/19 11:00 09/26/19 08:59 09/14/19 09:05 Benazepril HCl (Lotensin) 10 mg DAILY NG 09/03/19 11:00 10/03/19 10:59 09/14/19 09:06 Dextrose (Dextrose 50%) 25 ml Q30M PRN IV Hypoglycemia 08/27/19 15:15 09/26/19 15:14 Dextrose (Dextrose 50%) 50 ml Q30M PRN IV Hypoglycemia 08/27/19 15:15 09/26/19 15:14 Heparin Sodium (Porcine) (Heparin 5000 units/ml) 5,000 units EVERY 8 HOURS SUBQ 08/27/19 06:00 09/26/19 05:59 09/14/19 13:21 Insulin Aspart (NovoLOG) Q6H SUBQ 09/14/19 00:00 09/28/19 11:29 09/14/19 13:20 Insulin Detemir (Levemir) 6 units DAILY SUBQ 08/30/19 12:00 09/29/19 11:59 09/14/19 09:07 Morphine Sulfate (Morphine Sulfate) 2 mg Q4H PRN IVP For Pain 09/12/19 11:45 09/19/19 11:44 Phosphorus (Phospha 250 Neutral) 250 mg THREE TIMES A DAY ORAL 09/12/19 13:00 10/12/19 12:59 09/14/19 13:19 Sodium Chloride 1,000 ml @ 75 mls/hr [id number] IV 09/06/19 14:15 10/06/19 14:14 09/14/19 09:05 Allergies: Coded Allergies: No Known Allergies (Unverified , 08/27/19) ROS Limited/Unobtainable: Yes Subjective 78 YO M admitted with altered mental status. Now rhabdomyolysis and pancreatitis. Cover for Int Dusty-Dr Rome. S/P PEG 09/09/19 Objective Last Vital Signs Date Time Temp Pulse Resp B/P (MAP) Pulse Ox O2 Delivery O2 Flow Rate FiO2 09/14/19 16:00 99.2 104 20 141/83 (102) 99 09/14/19 09:00 Nasal Cannula 2.0 Laboratory Tests Test 09/14/19 07:15 White Blood Count 9.0 K/UL (4.8-10.8) Red Blood Count 3.45 M/UL (4.70-6.10) L Hemoglobin 9.5 G/DL (14.2-18.0) L Hematocrit 30.4 % (42.0-52.0) L Mean Corpuscular Volume 88 FL (80-99) Mean Corpuscular Hemoglobin 27.5 PG (27.0-31.0) Mean Corpuscular Hemoglobin Concent 31.3 G/DL (32.0-36.0) L Red Cell Distribution Width 15.4 % (11.6-14.8) H Platelet Count 428 K/UL (150-450) Mean Platelet Volume 6.7 FL (6.5-10.1) Neutrophils (%) (Auto) 59.4 % (45.0-75.0) Lymphocytes (%) (Auto) 28.0 % (20.0-45.0) Monocytes (%) (Auto) 9.2 % (1.0-10.0) Eosinophils (%) (Auto) 2.5 % (0.0-3.0) Basophils (%) (Auto) 0.9 % (0.0-2.0) Sodium Level 140 MMOL/L (136-145) Potassium Level 3.6 MMOL/L (3.5-5.1) Chloride Level 106 MMOL/L (98-107) Carbon Dioxide Level 35 MMOL/L (21-32) H Anion Gap -1 mmol/L (5-15) L Blood Urea Nitrogen 8 mg/dL (7-18) Creatinine 0.6 MG/DL (0.55-1.30) Estimat Glomerular Filtration Rate mL/min (>60) Glucose Level 175 MG/DL (74-106) H Calcium Level 7.8 MG/DL (8.5-10.1) L Phosphorus Level 2.7 MG/DL (2.5-4.9) Intake and Output 09/13/19 09/14/19 19:00 07:00 Intake Total 791.64 ml 1695 ml Output Total 1100 ml 900 ml Balance -308.36 ml 795 ml Free Water 150 ml IV Total 731.64 ml 825 ml Tube Feeding 60 ml 720 ml Output Urine Total 1100 ml 900 ml # Bowel Movements 1 Objective PHYSICAL EXAMINATION: GENERAL: The patient is a well-developed and well-nourished male, who is essentially nonverbal. HEENT: Eyes, pupils equal and responsive to light and accommodation. Extraocular movements are intact. NECK: Supple without lymphadenopathy. CHEST: Lungs are clear to auscultation bilaterally without wheezes or rales. CARDIOVASCULAR: Regular rhythm and rate. S1, S2 normal without murmurs, rubs, or gallops. ABDOMEN: Soft, nontender, nondistended. Positive bowel sounds. No evidence of hepatosplenomegaly. Currently, no rebound or guarding noted. EXTREMITIES: Negative for clubbing, cyanosis, or edema. RECTAL: Not performed. GENITAL: Not performed. NEUROLOGIC: Cranial nerves II through XII are grossly intact without focal deficits. Assessment/Plan Assessment/Plan ASSESSMENT: This is a 78-year-old male with: 1. Altered mental status/encephalopathy 2. Fracture of the left femur greater trochanter. 3. Rhabdomyolysis. 4. Dehydration. 5. Diabetes type 2. 6. Hypertension. 7. Hypercholesterolemia. 8. Pancreatitis TREATMENT: 1. Altered mental status, this may be secondary to dehydration versus acute cerebrovascular accident. An MRI of the brain = no acute dis. 2. Fracture of the left femur greater trochanter. An Orthopedic consultation has been obtained with Dr. Frederic Weir. 3. Rhabdomyolysis. The patient is currently receiving intravenous fluids. 4. Dehydration. The patient is currently receiving intravenous fluids. 5. Diabetes type 2. A NovoLog sliding scale has been instituted. 6. Hypertension. Continue benazepril, hydrochlorothiazide as above. 7. Hypercholesterolemia. Continue pravastatin as above. 8. MRCP=normal-see GI consult 9. S/P PEG 09/09/19 10. Discharge planning: [facility] today Tello Cobb MD Sep 14, 2019 19:01
--- NOTE | 2019-09-14 19:30 | NUR ---
NURSE NOTES: Received pt in bed, AAO x 1. On NC 2 L/min. No s/s of distress/pain. IV site intact and patent. G-tube feeding @ 60 ml/hr. Adams catheter intact, draining well. Bilateral soft restraints discontinued. Bed in the lowest, locked, and alarm on. Call light within reach. Will continue to monitor
--- NOTE | 2019-09-14 19:32 | NUR ---
HAND-OFF: Report given to JOHNNY Thurman.
[2019-09-14 20:00] VITALS: BP 142/76
--- NOTE | 2019-09-14 20:40 | NUR ---
NURSE NOTES: Pt HR [address] Rome and said ok to discharge. RN contacted JOHNNY Mcgovern from [facility] and notified HR. Per RN, will take pt. Ambulance is bedside.
--- NOTE | 2019-09-14 21:09 | NUR ---
NURSE NOTES: Pt is being discharged @ 2054 with faye and TRISH 2 L by ambulance/Arianna trujillo [id number]. Awake and oriented x 1. After care instructions, including referral to community resources were given. All medical devices such as IV and ID band were removed. All belongings such as dentures and clothes sent with pt.
--- NOTE | 2019-09-15 08:46 | Discharge Summary ---
Discharge Summary Discharge Summary _ DATE OF ADMISSION: 08/27/2019 DATE OF DISCHARGE: 09/14/2019 DISCHARGED BY: Dr. Rome REASON FOR ADMISSION: 79 years old male with past medical history of hypertension, hypercholesteremia , diabetes mellitus type 2, was found in his apartment on lying on the floor. Patient initially was transferred to [facility] emergency room where he was diagnosed with rhabdomyolysis, dehydration , and found to have a fracture of the left femur greater trochanter, probably not acute. Patient was awake, but unable to talk or respond to any questions. [facility] at [place] documented that the patient lacked capacity to make decisions. Patient and has 1 stepson. Patient subsequently was transferred to [facility] for insurance purposes. Patient was admitted with rhabdomyolysis , altered mental status , dehydration and left femur fracture. CONSULTANTS: pulmonary /client resolution specialist Dr. Mckeon ID specialist Dr. Greenwood GI specialist Dr. Guardado surgery Dr. Breen [facility]: Patient admitted to medical surgical floor. Patient started on the IV hydration. Altered mental status most likely secondary to dehydration. MRI of the brain revealed no acute intracranial findings. Moderate atrophy and evidence of chronic small vessel disease, involving white matter tracts. Renal parameters and electrolytes were closely monitored, electrolytes corrected as needed , and nephrotoxins were avoided . CK trended down. Rhabdomyolysis resolved, and was likely due to immobility after fall. Repeated x-ray of the bilateral hips with AP pelvis revealed irregularity of the left greater trochanter , may be indicative of a previous fracture without acute injury. Generalized osteopenia noted. Pain management was addressed as needed. Fall precautions maintained. Patient initially was on antibiotics for possible UTI . Urine culture revealed Staph hemolyticus. Patient noted to have elevated lipase and amylase, likely pancreatitis. CA-19-9 was within normal limits. Abdominal ultrasound revealed no acute findings. Noted elevated inflammatory markers ESR and CRP, and as per ID specialist, likely due to pancreatitis. ID specialist recommended to keep patient off antibiotic. Amylase and lipase slowly trending down , still elevated. Patient failed bedside swallow evaluation. Patient subsequently undergone EGD with PEG placement. Strict aspiration precautions maintained. Patient started on tube feeding with goal rate and protein supplement as per race and sports book writer recommendations. Patient was able to tolerate tube feeding. G-tube site care provided. DVT prophylaxis provided. Supplemental oxygen provided and titrated to keep oximetry above 92%, nebulizing treatment was on board as needed. Blood sugar was managed with Levemir and sliding scale insulin. Hemoglobin A1c 6.6. Blood pressure was managed with JENNIFER inhibitor and CCB. Antiplatelet therapy with aspirin continued. CK trending down, still elevated due to prior rhabdomyolysis. Lipid panel revealed elevated LDL. Consider starting statin at the facility after CK stabilized. Supportive care provided. Wound care for present on admission decubitus ulcer provided as per surgeon recommendation . Continue wound care at the facility. Placement was found and secured and can be long-term facility. Patient was stable for transfer. FINAL DIAGNOSES: Failure to thrive Acute toxic metabolic encephalopathy Severe protein calorie malnutrition Dehydration Hypernatremia Rhabdomyolysis Possible sepsis versus SIRS Pancreatitis Left hip fracture, not acute Possible UTI/Staph haemolyticus Diabetes mellitus Severe protein calorie malnutrition Dysphagia Aspiration risk Status post EGD with PEG placement Gastritis Hypertension Sacral decubitus ulcer ,present on admission , un-stageable Electrolyte imbalances DISCHARGE MEDICATIONS: See Medication Reconciliation list. DISCHARGE INSTRUCTIONS: Patient was discharged to the long-term facility. Follow up with medical doctor at the facility. I have been assigned to dictate discharge summary for this account. I was not involved in the patient's management. Kim Mahoney NP Sep 15, 2019 08:46
== END 2019-09-14 20:55 | DRG 640 ==
LOC: 4E 08-27 00:32
PROC: 0DH63UZ Insertion of Feeding Device into Stomach, Percutaneous Approach (ICD-10-PCS; principal; 2019-08-27)
DX: E86.0 Dehydration (principal); E43 Unspecified severe protein-calorie malnutrition; G93.41 Metabolic encephalopathy; K85.90 Acute pancreatitis without necrosis or infection, unspecified; Z68.1 Body mass index [BMI] 19.9 or less, adult; M62.82 Rhabdomyolysis; R62.7 Adult failure to thrive; E87.2 Acidosis; E11.9 Type 2 diabetes mellitus without complications; I10 Essential (primary) hypertension; E78.00 Pure hypercholesterolemia, unspecified; R13.10 Dysphagia, unspecified; K29.70 Gastritis, unspecified, without bleeding; L89.150 Pressure ulcer of sacral region, unstageable; S72.112D Displaced fracture of greater trochanter of left femur, subsequent encounter for closed fracture with routine healing; X58.XXXD Exposure to other specified factors, subsequent encounter; M85.80 Other specified disorders of bone density and structure, unspecified site; Z79.82 Long term (current) use of aspirin; L89.116 Pressure-induced deep tissue damage of right upper back; E87.1 Hypo-osmolality and hyponatremia; L89.95 Pressure ulcer of unspecified site, unstageable
CPT/HCPCS: 36415; 70551; 71045; 73521; 74018; 74181; 74230; 76700; 80048; 80053; 80061; 81003; 82150; 82248; 82550; 82962; 83036; 83605; 83690; 83735; 84100; 85025; 85610; 85651; 85730; 86140; 86710; 87040; 87081; 87086; 87181; 92610; 94003; 94150; C9399; J1815; J7030; J8499; S5561

== ENCOUNTER 2019-10-11 12:19 | Emergency (ER) | payer MEDICARE, MEDICAID ==
[~2019-10-11] VITALS: Ht 177.8 cm; Wt 52.2 kg
--- NOTE | 2019-10-11 12:14 | NUR ---
ED Nurse Note: [facility] S/P PULLING CHRISTINE CATHETER OUT AT 0500 TODAY. PT SHOWS NO SIGNS OF DISTRESS.
[2019-10-11 12:15] VITALS: BP 122/72
[~2019-10-11 12:19] MED LIST: ASPIRIN-LOW81 MG ORAL; GLUCOPHAGE1000 MG ORAL; HYDREA500 MG PO; LEVEMIR FL100 UNIT/1 SUBQ; LOTENSIN HCT 11 EAC1 PO; NORVASC10 MG ORAL; NOVOLOG100 UNITS1 SUBQ; PRAVASTATIN SOD10 M1 ORAL
[2019-10-11] MEDS ORDERED: ASCORBIC ACID500 MG ORAL (12:36)
[2019-10-11] MEDS ORDERED: AMANTADINE100 M2 ORAL (12:36)
--- NOTE | 2019-10-11 12:38 | NUR ---
ED Nurse Note: NEW CHRISTINE CATH INSERETED. PATENT, INTACT, AND DRAINIGN. URINE SENT TO LAB
--- NOTE | 2019-10-11 12:39 | NUR ---
ED Nurse Note: WOUND CARE PHOTOS UPLOADED
[2019-10-11 13:15] LABS: APPEARANCE,URINE SLIGHTLY CLOUDY; BILIRUBIN, URINE NEGATIVE (NEGATIVE); GLUCOSE, URINE (UA) NEGATIVE (NEGATIVE); KETONES,URINE 1+ (NEGATIVE); LEUKOCYTE ESTERASE ,URINE 3+ (NEGATIVE); NITRITE,URINE NEGATIVE (NEGATIVE); PH,URINE 8 (4.5-8.0); PROTEIN,URINE 3+ (NEGATIVE); UROBILINOGEN,URINE 1 MG/DL (0.0-1.0)
[2019-10-11 13:16] LABS: COLOR,URINE RED
--- NOTE | 2019-10-11 14:10 | Emergency Room Report ---
History of Present Illness General Chief Complaint: General Complaint Source: Patient, EMS Present Illness HPI Patient apparently pulled out his Adams catheter. There is some bleeding. The patient denies pain at this time. There is no report of fevers or chills. The patient denies all other symptoms. He does have a history of encephalopathy and therefore answers are somewhat questionable. He does repeatedly deny that he has pain. Patient admitted August this year. Discharge dx: Failure to thrive Acute toxic metabolic encephalopathy Severe protein calorie malnutrition Dehydration Hypernatremia Rhabdomyolysis Possible sepsis versus SIRS Pancreatitis Left hip fracture, not acute Possible UTI/Staph haemolyticus Diabetes mellitus Severe protein calorie malnutrition Dysphagia Aspiration risk Status post EGD with PEG placement Gastritis Hypertension Allergies: Coded Allergies: No Known Allergies (Unverified , 08/27/19) Patient History Past Medical History: see triage record, old chart reviewed Social History: Denies: smoking, alcohol use Social History Narrative SNF Reviewed Nursing Documentation: PMH: Agreed; PSxH: Agreed Nursing Documentation-PMH Past Medical History: No History, Except For Hx Cardiac Problems: Yes Hx Hypertension: Yes Hx Diabetes: Yes Hx Neurological Problems: No Review of Systems All Other Systems: negative except mentioned in HPI - questionalble historian Physical Exam Vital Signs Date Time Temp Pulse Resp B/P (MAP) Pulse Ox O2 Delivery O2 Flow Rate FiO2 10/11/19 12:08 98.2 90 18 122/72 (89) 96 Room Air Sp02 EP Interpretation: reviewed, normal General Appearance: no apparent distress, alert, Chronically Ill Head: normocephalic, atraumatic Eyes: bilateral eye normal inspection, bilateral eye PERRL ENT: moist mucus membranes Neck: full range of motion Respiratory: chest non-tender, lungs clear, normal breath sounds Cardiovascular #1: regular rate, rhythm, no edema Cardiovascular #2: 2+ radial (R) Gastrointestinal: normal inspection, non tender, soft, scaphoid Genitourinary: no CVA tenderness, other - circumcised, no active bleeding Musculoskeletal: gait/station normal Neurologic: alert, oriented - X2, sensory intact, motor weakness - diffuse Psychiatric: mood/affect normal Skin: normal color, other - Stage 4 sacral decuitus Medical Decision Making Diagnostic Impression: Primary Impression: Hematuria Qualified Codes: R31.9 - Hematuria, unspecified Additional Impression: Urethral trauma Qualified Codes: S37.30XA - Unspecified injury of urethra, initial encounter ER Course Patient presents after pulling out Adams with hematuria. Differential includes urethral trauma, urinary tract infection amongst others. Patient is asymptomatic at this time and there is no pain or fever. Replacement of the Adams and urinalysis are indicated.. Urinalysis with some hematuria no clots. No significant pyuria. With Adams present, no active bleeding. [place] urine draining without problems. Patient stable for outpatient observation. Laboratory Tests Test 10/11/19 12:33 Urine Color Red Urine Appearance Slightly cloudy Urine pH 8 (4.5-8.0) Urine Specific [place] 1.015 (1.005-1.035) Urine Protein 3+ (NEGATIVE) H Urine Glucose (UA) Negative (NEGATIVE) Urine Ketones 1+ (NEGATIVE) H Urine Blood 5+ (NEGATIVE) H Urine Nitrite Negative (NEGATIVE) Urine Bilirubin Negative (NEGATIVE) Urine Urobilinogen 1 MG/DL (0.0-1.0) H Urine Leukocyte Esterase 3+ (NEGATIVE) H Urine RBC Tntc /HPF (0 - 0) H Urine WBC 10-15 /HPF (0 - 0) H Urine Squamous Epithelial Cells Occasional /LPF Urine Bacteria Occasional /HPF (NONE) Last Vital Signs Date Time Temp Pulse Resp B/P (MAP) Pulse Ox O2 Delivery O2 Flow Rate FiO2 10/11/19 15:47 98.6 86 20 129/65 98 Room Air Status: improved Disposition: XFER SNF Condition: Stable Sonu Singh MD Oct 11, 2019 14:10
[2019-10-11 14:19] VITALS: BP 126/74
--- NOTE | 2019-10-11 14:40 | NUR ---
ED Nurse Note: report received from JOHNNY Hodge. pt in bed, resting, no acute distress is noted. VSS. awaiting for transporation at this time.
--- NOTE | 2019-10-11 14:49 | NUR ---
ED Nurse Note: SPOKE WITH CHARLES FROM [facility] IN REGARDS TO PTS RETURN TO FACILITY
--- NOTE | 2019-10-11 15:39 | NUR ---
ED Nurse Note: [facility] at bedside, preparing to transfer pt.
--- NOTE | 2019-10-11 15:40 | NUR ---
ED Nurse Note: pt dc with [facility], pt shows no acute signs of distress. vss. pt has no belongings. [facility] informed of patients return
[2019-10-11 15:47] VITALS: BP 129/65
== END 2019-10-11 15:40 ==
LOC: EDBD 12:19 → EMR 12:38
DX: R31.9 Hematuria, unspecified (principal); S37.30XA Unspecified injury of urethra, initial encounter; I10 Essential (primary) hypertension; E11.9 Type 2 diabetes mellitus without complications; X58.XXXA Exposure to other specified factors, initial encounter; Y92.9 Unspecified place or not applicable
CPT/HCPCS: 81003; 87086; 87181; 99283

== ENCOUNTER 2020-06-01 22:22 | Inpatient (IN) | payer MEDICARE, MEDICAID ==
[~2020-06-01] VITALS: Ht 165.1 cm; Wt 66.7 kg
[~2020-06-01 22:22] MED LIST changes: +AMANTADINE100 M2 ORAL; +ASCORBIC ACID500 MG ORAL; +FLOMAX0.4 MG ORAL; +INVANZ1 G1 IM
[2020-06-01 22:30] VITALS: BP 90/69
--- NOTE | 2020-06-01 22:30 | NUR ---
ED Nurse Note: Patient brought in by BLS ambulance from [facility] d/t abnormal labs and fever. Rectal temperature upon assessment 99.8 F. Patient nonverbal, moves and opens eyes spontaneously but unable to make needs known. Patient placed on clinic receptionist. Patient noted to have existing 22g IV on right hand inserted prior to arrival. Patient noted to be diaphoretic but stable during assessment. No acute distress noted during assessment.
--- NOTE | 2020-06-01 22:45 | Emergency Room Report ---
History of Present Illness General Chief Complaint: Abnormal Labs Source: EMS Present Illness HPI Patient is a 79-year-old male sent in from [facility] for increased fever and abnormal laboratory testing. Patient was noted to have prior history of type 2 diabetes and was noted to have sugar greater than 600 on laboratory testing. Was also noted to have markedly increased serum sodium. Prior history of Parkinson's disease as well as chronic pancreatitis and encephalopathy. Patient is chronically bedridden. He is G-tube dependent. Allergies: Coded Allergies: No Known Allergies (Unverified , 08/27/19) COVID-19 Screening Contact w/high risk pt: Yes Experienced COVID-19 symptoms?: Yes Patient History Past Medical History: see triage record Reviewed Nursing Documentation: PMH: Agreed; PSxH: Agreed Nursing Documentation-PMH Hx Cardiac Problems: Yes Hx Hypertension: Yes Hx Diabetes: Yes Hx Cancer: No Hx Gastrointestinal Problems: Yes - G tube Hx Neurological Problems: Yes Hx Cerebrovascular Accident: Yes Review of Systems All Other Systems: limited - Limited by poor historian Physical Exam Vital Signs Date Time Temp Pulse Resp B/P (MAP) Pulse Ox O2 Delivery O2 Flow Rate FiO2 06/01/20 22:24 120 26 85/68 (74) 97 Nasal Cannula 3.0 General Appearance: moderate distress, Chronically Ill Head: normocephalic Neck: limited range of motion Respiratory: chest non-tender Cardiovascular #1: tachycardia Gastrointestinal: normal inspection, soft, other - G-tube present no erythema to stoma Musculoskeletal: decreased range of motion Neurologic: motor weakness Psychiatric: normal inspection Skin: diaphoresis Procedures Critical Care Time Critical Care Time Patient had a critical medical condition which untreated could potentially result in life or limb threatening injury. Total critical care time excluding procedures approximately 45 minutes. Medical Decision Making Diagnostic Impression: Primary Impression: Diabetes mellitus Additional Impressions: Feeding by G-tube Sepsis ER Course Patient presented for increased generalized weakness and fever. Differential diagnosis include was not limited to pneumonia, sepsis, coronavirus infection, urinary tract infection among others. Because of complexity of patient's case laboratory tests and imaging studies were ordered. Patient was noted to have fever as well as increased blood sugar. He started on IV fluids as well as IV antibiotics.Laboratory testing showed elevated lactic acid level as well as markedly elevated blood sugar with elevated white blood count. Urinalysis showed [place] a urinary tract infection. Patient was given IV antibiotics and IV fluids with improvement in blood pressure. Patient is also given IV insulin with some improvement in blood sugar. Dr. Cirilo Rome was contacted for inpatient management Labs Test 06/01/20 22:38 06/01/20 22:45 06/01/20 23:58 06/02/20 00:28 Urine Color Yellow Urine Appearance Slightly cloudy Urine pH 6 (4.5-8.0) Urine Specific [place] 1.010 (1.005-1.035) Urine Protein 3+ (NEGATIVE) Urine Glucose (UA) 2+ (NEGATIVE) Urine Ketones Negative (NEGATIVE) Urine Blood 5+ (NEGATIVE) Urine Nitrite Negative (NEGATIVE) Urine Bilirubin Negative (NEGATIVE) Urine Urobilinogen Normal MG/DL (0.0-1.0) Urine Leukocyte Esterase 3+ (NEGATIVE) Urine RBC 20-30 /HPF (0 - 0) Urine WBC Tntc /HPF (0 - 0) Urine Squamous Epithelial Cells Occasional /LPF Urine Bacteria Many /HPF (NONE) White Blood Count 13.2 K/UL (4.8-10.8) Red Blood Count 3.96 M/UL (4.70-6.10) Hemoglobin 12.4 G/DL (14.2-18.0) Hematocrit 40.9 % (42.0-52.0) Mean Corpuscular Volume 103 FL (80-99) Mean Corpuscular Hemoglobin 31.2 PG (27.0-31.0) Mean Corpuscular Hemoglobin Concent 30.3 G/DL (32.0-36.0) Red Cell Distribution Width 14.4 % (11.6-14.8) Platelet Count 514 K/UL (150-450) Mean Platelet Volume 8.1 FL (6.5-10.1) Neutrophils (%) (Auto) 81.7 % (45.0-75.0) Lymphocytes (%) (Auto) 13.6 % (20.0-45.0) Monocytes (%) (Auto) 4.1 % (1.0-10.0) Eosinophils (%) (Auto) 0.1 % (0.0-3.0) Basophils (%) (Auto) 0.4 % (0.0-2.0) Sodium Level 157 MMOL/L (136-145) Potassium Level 4.3 MMOL/L (3.5-5.1) Chloride Level 117 MMOL/L (98-107) Carbon Dioxide Level 28 MMOL/L (21-32) Anion Gap 12 mmol/L (5-15) Blood Urea Nitrogen 71 mg/dL (7-18) Creatinine 1.9 MG/DL (0.55-1.30) Estimat Glomerular Filtration Rate 41.8 mL/min (>60) Glucose Level 609 MG/DL (74-106) Calcium Level 10.5 MG/DL (8.5-10.1) Total Bilirubin 0.3 MG/DL (0.2-1.0) Aspartate Amino Transf (AST/SGOT) 16 U/L (15-37) Alanine Aminotransferase (ALT/SGPT) 18 U/L (12-78) Alkaline Phosphatase 195 U/L (46-116) Total Creatine Kinase 26 U/L (26-308) Creatine Kinase MB < 0.5 NG/ML (0.0-3.6) Creatine Kinase MB Relative Index 1.9 Troponin I 0.010 ng/mL (0.000-0.056) Total Protein 9.3 G/DL (6.4-8.2) Albumin 2.3 G/DL (3.4-5.0) Globulin 7.0 g/dL Albumin/Globulin Ratio 0.3 (1.0-2.7) Lactic Acid Level 5.40 mmol/L (0.66-2.22) POC Whole Blood Glucose 453 MG/DL (74-106) EKG Diagnostic Results Rate: tachycardiac Rhythm: NSR ST Segments: no acute changes Rhythm Strip Diag. Results EP Interpretation: yes Rhythm: NSR, no PVC's, no ectopy Reevaluation Time: 00:50 Last Vital Signs Date Time Temp Pulse Resp B/P (MAP) Pulse Ox O2 Delivery O2 Flow Rate FiO2 06/01/20 22:24 120 26 85/68 (74) 97 Nasal Cannula 3.0 Status: improved Reevaluation Impression Patient had improvement in blood pressure after IV hydration as well as improvement and skin perfusion. Disposition: ADMITTED INPATIENT Condition: Benny Smith MD Jun 01, 2020 22:45
[2020-06-01] MEDS ORDERED: Vancomycin 1 GM in NS 275 ML IVPB ONE (23:00)
[2020-06-01] MEDS ORDERED: Cefepime HCl 1 GM in D5W 55 ML IVPB ONE (23:00)
[2020-06-01] MEDS ORDERED: HYDREA500 MG GT (23:05)
[2020-06-01] MEDS ORDERED: SENNA8.6 M2 GT (23:05)
[2020-06-01] MEDS ORDERED: COLACE100 MG GT (23:05)
[2020-06-01] MEDS ORDERED: AMANTADINE100 M2 GT (23:05)
[2020-06-01] MEDS ORDERED: ZOFRAN4 M3 GT (23:05)
[2020-06-01] MEDS ORDERED: ACETAMINOPHEN325 M1 GT (23:05)
[2020-06-01] MEDS ORDERED: AMLODIPINE BESY10 MG GT (23:05)
[2020-06-01] MEDS ORDERED: FLOMAX0.4 MG GT (23:05)
[2020-06-01] MEDS ORDERED: METFORMIN HCL1000 M1 GT (23:05)
[2020-06-01] MEDS ORDERED: SIMETHICONE80 MG GT (23:05)
[2020-06-01] MEDS ORDERED: PRAVASTATIN SOD20 M1 GT (23:05)
--- NOTE | 2020-06-01 23:10 | Diagnostic Imaging Report ---
EXAM: XR Chest, 1 View CLINICAL HISTORY: SOB TECHNIQUE: Frontal view of the chest. COMPARISON: 10/30/19 FINDINGS: No significant interval change. Normal heart size. No change in tortuosity and ectasia of the thoracic aorta. The lungs are mildly hyperexpanded consistent with COPD. Negative for parenchymal consolidation, pneumothorax or pleural fluid collections.
[2020-06-01 23:13] LABS: APPEARANCE,URINE SLIGHTLY CLOUDY; BILIRUBIN, URINE NEGATIVE (NEGATIVE); GLUCOSE, URINE (UA) 2+ (NEGATIVE); KETONES,URINE NEGATIVE (NEGATIVE); LEUKOCYTE ESTERASE ,URINE 3+ (NEGATIVE); NITRITE,URINE NEGATIVE (NEGATIVE); PH,URINE 6 (4.5-8.0); PROTEIN,URINE 3+ (NEGATIVE); UROBILINOGEN,URINE NORMAL MG/DL (0.0-1.0)
[2020-06-01 23:15] LABS: COLOR,URINE YELLOW
[2020-06-01 23:21] LABS: BASOPHILS % (AUTO) 0.4 % (0.0-2.0); EOSINOPHILS % (AUTO) 0.1 % (0.0-3.0); HEMATOCRIT 40.9 % (42.0-52.0); HEMOGLOBIN 12.4 G/DL (14.2-18.0); LYMPHOCYTES % (AUTO) 13.6 % (20.0-45.0); MEAN CORPUSCULAR VOLUME 103 FL (80-99); MONOCYTES % (AUTO) 4.1 % (1.0-10.0); NEUTROPHILS % (AUTO) 81.7 % (45.0-75.0); PLATELET COUNT 514 K/UL (150-450); RED BLOOD COUNT 3.96 M/UL (4.70-6.10); RED CELL DISTRIBUTION WIDTH 14.4 % (11.6-14.8); WHITE BLOOD COUNT 13.2 K/UL (4.8-10.8)
[2020-06-01 23:49] LABS: ALANINE AMINOTRANSFERASE 18 U/L (12-78); ALBUMIN 2.3 G/DL (3.4-5.0); ALBUMIN/GLOBULIN RATIO 0.3 (1.0-2.7); ALKALINE PHOSPHATASE 195 U/L (46-116); ANION GAP 12 mmol/L (5-15); ASPARTATE AMINO TRANSFERASE 16 U/L (15-37); BILIRUBIN,TOTAL 0.3 MG/DL (0.2-1.0); BLOOD UREA NITROGEN 71 mg/dL (7-18); CALCIUM 10.5 MG/DL (8.5-10.1); CARBON DIOXIDE 28 MMOL/L (21-32); CHLORIDE 117 MMOL/L (98-107); CKMB < 0.5 NG/ML (0.0-3.6); CREATINE KINASE 26 U/L (26-308); CREATININE 1.9 MG/DL (0.55-1.30); POTASSIUM 4.3 MMOL/L (3.5-5.1); SODIUM 157 MMOL/L (136-145)
[2020-06-02] MEDS ORDERED: Insulin Human Regular 100units/ml 3ml IV ONE (00:15)
--- NOTE | 2020-06-02 00:47 | NUR ---
ED Nurse Note: Report given to JOHNNY Daly.
--- NOTE | 2020-06-02 00:50 | NUR ---
TRANSFER TO FLOOR: Patient transferred to SDU as ordered, per ERMD. Report given to JOHNNY Daly. Patient transported via gurney on ACLS protocol with satellite project site monitor accompanied by 2 RNs in stable condition.
--- NOTE | 2020-06-02 01:30 | NUR ---
"NURSE NOTES: Received report from JOHNNY Martin. Pt. SUKUMAR trujillo direct to room 236 from ED for fever and abnormal labs. 111/65 | 100 bpm | 97.9 axil | 98% room air |18 RR | 385 blood glucose. Pt. is alert, nonverbal. Responds to yes or no questions. No pain. PERRLA. Radial pulses bounding. <3 Cap Refill. +1 pitting edema on upper and lower extremities. Active bowel sounds heard on BARRERA upon auscultation. Pt observed with g-tube. Healing sacral wound observed. Left and Right hand IV patent and intact. No belongings observed. Bed placed in lowest and locked position. Call light within reach. Bed alarm on. Will continue to monitor. Left message for Dr. Rome. Awaiting admission orders."
[2020-06-02] MEDS ORDERED: Simethicone 80mg tab GT PRN (02:45)
[2020-06-02] MEDS ORDERED: Acetaminophen 650mg/20.3ml GT PRN (03:15)
[2020-06-02 04:00] VITALS: BP 137/64
--- NOTE | 2020-06-02 04:00 | NUR ---
NURSE NOTES: pt compliant and resting comfortably. carried out new MD orders. EKG shows ST upon exertion/coughing. pt exhibits no signs of distress. will continue to monitor.
[2020-06-02 05:22] LABS: ANION GAP 9 mmol/L (5-15); BLOOD UREA NITROGEN 54 mg/dL (7-18); CALCIUM 9.2 MG/DL (8.5-10.1); CARBON DIOXIDE 29 MMOL/L (21-32); CHLORIDE 123 MMOL/L (98-107); CREATININE 1.4 MG/DL (0.55-1.30); POTASSIUM 3.5 MMOL/L (3.5-5.1); SODIUM 160 MMOL/L (136-145)
[2020-06-02 05:24] LABS: BASOPHILS % (AUTO) 0.4 % (0.0-2.0); EOSINOPHILS % (AUTO) 0.3 % (0.0-3.0); HEMATOCRIT 35.5 % (42.0-52.0); HEMOGLOBIN 10.9 G/DL (14.2-18.0); LYMPHOCYTES % (AUTO) 18.2 % (20.0-45.0); MEAN CORPUSCULAR VOLUME 101 FL (80-99); MONOCYTES % (AUTO) 4.2 % (1.0-10.0); NEUTROPHILS % (AUTO) 76.9 % (45.0-75.0); PLATELET COUNT 487 K/UL (150-450); RED BLOOD COUNT 3.53 M/UL (4.70-6.10); RED CELL DISTRIBUTION WIDTH 13.8 % (11.6-14.8); WHITE BLOOD COUNT 15.5 K/UL (4.8-10.8)
[2020-06-02 05:27] LABS: ALBUMIN 1.9 G/DL (3.4-5.0); ALBUMIN/GLOBULIN RATIO 0.3 (1.0-2.7); ALKALINE PHOSPHATASE 172 U/L (46-116); ASPARTATE AMINO TRANSFERASE 7 U/L (15-37); BILIRUBIN,TOTAL 0.3 MG/DL (0.2-1.0)
[2020-06-02] MEDS: Levemir Flexpen SUBQ SCH (05:51)
[2020-06-02] MEDS: NovoLOG Insulin Flexpen SUBQ SCH ×4 (05:52→22:00)
[2020-06-02 06:29] LABS: ALANINE AMINOTRANSFERASE 17 U/L (12-78)
--- NOTE | 2020-06-02 07:30 | NUR ---
NURSE HAND-OFF REPORT: Important Events on Shift: new condom catheter inserted; hematuria noted. Patient Status: stable Diet: Glucerna 1.2 Pending Orders: Y Pending Results/Labs: Y Pending MD notification: Y Latest Vital Signs: Temperature 98.1 , Pulse 105 , B/P 137 /64 , Respiratory Rate 20 , O2 SAT 98 , Room Air, O2 Flow Rate 3.0 . Vital Sign Comment: EKG Rhythm: Sinus Tachycardia Rhythm change?: N MD Notified?: - MD Response: Latest Lane Fall Score: 60 Fall Risk: High Risk Safety Measures: Call light Within Reach, Bed Alarm Zone 2, Side Rails Side Rails x3, Bed position Low and Locked. Fall Precautions: Yellow Socks Yellow Gown Patient Fall Education Report given to JOHNNY Cain.
--- NOTE | 2020-06-02 07:31 | NUR ---
NURSE NOTES: Received patient from JOHNNY Garcia. Patient is aaox 1, non verbal, on phototypesetting equipment monitor, with no acute distress and in bed. Patient is well groomed and cooperative. Patient is on room air and saturating at 98% O2. Gt tube running Glucerna 1.5 at 30mL/hr. Condom catheter patent and draining to gravity with signs of hematuria. Patient has a sacral stage 4, healed, closed and dry. Bilateral heel redness with protection. Right hand 22g and left 20g patent and no signs of infection. Bed is at its lowest position, call light in reach and x3 bed rails are up. Will continue to monitor.
[2020-06-02 08:00] VITALS: BP 108/57
--- NOTE | 2020-06-02 08:01 | NUR ---
RD ASSESSMENT & RECOMMENDATIONS SEE CARE ACTIVITY FOR COMPLETE ASSESSMENT DAILY ESTIMATED NEEDS: Needs based on Sepsis, DM/ 54kg 30-40 kcals/kg 5894-2324 total kcals 1.25-2 g protein/kg 68-108 g total protein 25-35ml/kcal mL/kg 6535-2841 total fluid mLs NUTRITION DIAGNOSIS: * Swallowing difficulty R/T dysphagia, as evidenced by Pt is GT dep. (CURRENT TF: Glucerna 1.5 @ 30ml/hr x 24 hrs) ENTERAL NUTRITION RECOMMENDATIONS: Glucerna 1.5 @ 60ml/hr x 20 hrs to provide 1200ml, 1800kcal, 99g prot, 911ml free water, 160mg carbs * Rec to INCREASE TF GOAL to 60ml/hr for 20 hrs * HOB over 30 degrees, increased water flushes * TF at goal meets 100% est needs. ADDITIONAL RECOMMENDATIONS: * Calibrated bedscale wt for accurate CBW * Monitor lytes daily w/ TF, replete as needed * Pt may require increase in insulin regimen for improved BG W/ continuous TF infusion * Wound healing: DOMENICA BID, F/up w/ WC eval . .
--- NOTE | 2020-06-02 08:20 | NUR ---
RD ASSESSMENT & RECOMMENDATIONS SEE CARE ACTIVITY FOR COMPLETE ASSESSMENT DAILY ESTIMATED NEEDS: Needs based on Sepsis, DM/ 54kg 30-40 kcals/kg 9204-5903 total kcals 1.25-2 g protein/kg 68-108 g total protein 25-35ml/kcal mL/kg 0147-3105 total fluid mLs NUTRITION DIAGNOSIS: * Swallowing difficulty R/T dysphagia, as evidenced by Pt is GT dep. (CURRENT TF: Glucerna 1.5 @ 30ml/hr x 24 hrs) ENTERAL NUTRITION RECOMMENDATIONS: Glucerna 1.5 @ 60ml/hr x 20 hrs to provide 1200ml, 1800kcal, 99g prot, 911ml free water, 160g carbs * Rec to INCREASE TF GOAL to 60ml/hr for 20 hrs * HOB over 30 degrees, increased water flushes * TF at goal meets 100% est needs. -------- ADDITIONAL RECOMMENDATIONS: * Calibrated bedscale wt for accurate CBW * Monitor lytes daily w/ TF, replete as needed * Pt may require increase in insulin regimen for improved BG W/ continuous TF infusion * Wound healing: DOMENICA BID, F/up w/ WC eval . .
[2020-06-02] MEDS: Sennosides 8.6mg tab GT SCH (08:38)
[2020-06-02] MEDS: Amantadine 100mg cap GT SCH ×2 (08:38→17:18)
[2020-06-02] MEDS: Heparin 5000 units/ml inj SUBQ SCH ×2 (08:41→23:17)
[2020-06-02] MEDS: Aspirin Baby 81mg GT SCH (08:42)
[2020-06-02] MEDS ORDERED: Hydroxyurea 500mg cap ORAL SCH (09:00)
[2020-06-02] MEDS ORDERED: Amantadine 100mg cap ORAL SCH (09:00)
[2020-06-02] MEDS ORDERED: Ertapenem (INVanz) 1gm Inj IM SCH (09:00)
[2020-06-02] MEDS ORDERED: Tamsulosin 0.4mg cap ORAL SCH ×2 (09:00→21:00)
[2020-06-02] MEDS ORDERED: Ertapenem 1gm ivpb (q24h) IV SCH ×2 (09:00)
--- NOTE | 2020-06-02 10:01 | NUR ---
NURSE NOTES:WOUND CARE NOTES:Pt presented on admission with purple and indurated area at Sacrococcygeal at previously compromised site(L)7cm x (W)3cm.Surrounding Hyperpigmentation at Sacrum. Non-Blanching erythema without fluctuance R heel. Non-Blanching erythema with delineated margins L heel (L)4.5cm x (W)5.5cm. L Heel is boggy . Tx.Plan: Apply Moisture Barrier Paste to Sacrum. Cover with Optifoam drsgs. Change every 3 days and prn. Apply Cavilon Skin Barrier to R and L trochanter. Cover each site with Optifoam drsgs. Change every 7 days and prn. Apply [place] Skin Barrier to each heel and malleoli. Cover each site with Optifoam drsgs. Change every 7 days and prn. Reposition at least every 2hours or as tolerated. Off-load heels with pillow.
--- NOTE | 2020-06-02 10:42 | NUR ---
CASE MANAGEMENT: REVIEW 79 YEAR OLD MALE BIBA FROM [facility] CC: ABNORMAL LABS SI: SEPSIS . HYPERGLYCEMIA T 99.8 HR 120 RR 26 BP 85/68 SAT 97% NC/3L WBC 15.5 H/H 10.9/35.5 NA 157 GLUCOSE 609 IS: PATIENT ADMITTED TO STEP DOWN UNIT 06/01/2020 DCP: PATIENT IS FROM [facility]
--- NOTE | 2020-06-02 10:45 | Consultation ---
History of Present Illness General Date patient seen: Jun 02, 2020 Chief Complaint: Abnormal Labs Present Illness HPI 79 year old male with hx of CVA, DM, HTN, feeding tube, BPH, shelter resident brought in to ER with complaints of fever and abnormal labs . Patient himself denies any complains. There was no reports of vomiting patient has feeding tube in place. Pt was tachycardic and is admitted to [facility] for further management. Allergies: Coded Allergies: No Known Allergies (Unverified , 08/27/19) Medication History Scheduled Amantadine Hcl* (Amantadine*), 100 MG ORAL TWICE A DAY, (Reported) Amantadine Hcl* (Amantadine*), 100 MG GT TWICE A DAY, (Reported) Amlodipine Besylate (Norvasc), 10 MG ORAL DAILY, (Reported) Amlodipine Besylate* (Amlodipine Besylate*), 10 MG GT DAILY, (Reported) Aspirin (Aspirin EC), 81 MG ORAL DAILY, (Reported) Benazepril/Hydrochlorothiazide (Lotensin Hct 10-12.5 mg Tablet), 1 EACH PO DAILY , (Reported) Docusate Sodium* (Colace*), 100 MG GT TWICE A DAY, (Reported) Ertapenem (Invanz), 1 GM IM DAILY Hydroxyurea* (HYDREA 500mg*), 500 MG PO DAILY, (Reported) Metformin Hcl (Glucophage), 1,000 MG ORAL BID, (Reported) Metformin Hcl* (Metformin Hcl*), 1,000 MG GT DAILY, (Reported) Pravastatin Sod (Pravastatin Sod), 20 MG ORAL DAILY, (Reported) Pravastatin Sod* (Pravastatin Sod*), 20 MG GT BEDTIME, (Reported) Tamsulosin HCl (Flomax), 0.4 MG ORAL BEDTIME Tamsulosin HCl (Flomax), 0.4 MG GT DAILY, (Reported) Scheduled PRN Acetaminophen* (Acetaminophen 325MG Tablet*), 325 MG GT Q6HR PRN for , ( Reported) Ondansetron* (Zofran*), 4 MG GT Q6H PRN for Nausea & Vomiting, (Reported) Simethicone* (Simethicone*), 80 MG GT DAILY PRN for GAS PAIN, (Reported) Miscellaneous Medications Hydroxyurea* (HYDREA 500mg*), 500 MG GT, (Reported) Sennosides (Senna), 8.6 MG GT, (Reported) Patient History Healthcare decision maker Resuscitation status Advanced Directive on File Past Medical/Surgical History Past Medical/Surgical History: (1) Diabetes mellitus (2) History of hypertension (3) Severe protein-calorie malnutrition (4) Pressure Ulcer Of Sacral Region, Unstageable (5) Feeding by G-tube Review of Systems All Other Systems: negative except mentioned in HPI Physical Exam General Appearance: cachetic, thin Lines, tubes and drains: peripheral HEENT: normocephalic, atraumatic Neck: non-tender, normal alignment Respiratory/Chest: chest wall non-tender, lungs clear Breasts: no masses Cardiovascular/Chest: normal peripheral pulses Abdomen: normal bowel sounds, non tender Genitourinary/Rectal: normal genital exam, normal rectal exam Extremities: normal range of motion Skin Exam: normal pigmentation Last 24 Hour Vital Signs Date Time Temp Pulse Resp B/P (MAP) Pulse Ox O2 Delivery O2 Flow Rate FiO2 06/02/20 08:43 110 108/57 06/02/20 04:00 Room Air 06/02/20 04:00 111 06/02/20 04:00 98.1 105 20 137/64 (88) 98 06/02/20 02:01 Room Air 06/02/20 01:11 101 06/02/20 00:50 99.8 104 25 102/67 100 Room Air 06/01/20 22:30 99.8 112 24 90/69 100 Nasal Cannula 3.0 06/01/20 22:24 120 26 85/68 (74) 97 Nasal Cannula 3.0 Intake and Output 06/01/20 06/02/20 19:00 07:00 Intake Total 2272.5 ml Output Total 200 ml Balance 2072.5 ml Intake Oral 0 ml Free Water 150 ml IV Total 2017.5 ml Tube Feeding 105 ml Output Other 200 ml Laboratory Tests Test 06/01/20 22:38 06/01/20 22:45 06/01/20 23:58 06/02/20 00:28 Urine Color Yellow Urine Appearance Slightly cloudy Urine pH 6 (4.5-8.0) Urine Specific [place] 1.010 (1.005-1.035) Urine Protein 3+ (NEGATIVE) H Urine Glucose (UA) 2+ (NEGATIVE) H Urine Ketones Negative (NEGATIVE) Urine Blood 5+ (NEGATIVE) H Urine Nitrite Negative (NEGATIVE) Urine Bilirubin Negative (NEGATIVE) Urine Urobilinogen Normal MG/DL (0.0-1.0) Urine Leukocyte Esterase 3+ (NEGATIVE) H Urine RBC 20-30 /HPF (0 - 0) H Urine WBC Tntc /HPF (0 - 0) H Urine Squamous Epithelial Cells Occasional /LPF Urine Bacteria Many /HPF (NONE) H White Blood Count 13.2 K/UL (4.8-10.8) H Red Blood Count 3.96 M/UL (4.70-6.10) L Hemoglobin 12.4 G/DL (14.2-18.0) L Hematocrit 40.9 % (42.0-52.0) L Mean Corpuscular Volume 103 FL (80-99) H Mean Corpuscular Hemoglobin 31.2 PG (27.0-31.0) H Mean Corpuscular Hemoglobin Concent 30.3 G/DL (32.0-36.0) L Red Cell Distribution Width 14.4 % (11.6-14.8) Platelet Count 514 K/UL (150-450) H Mean Platelet Volume 8.1 FL (6.5-10.1) Neutrophils (%) (Auto) 81.7 % (45.0-75.0) H Lymphocytes (%) (Auto) 13.6 % (20.0-45.0) L Monocytes (%) (Auto) 4.1 % (1.0-10.0) Eosinophils (%) (Auto) 0.1 % (0.0-3.0) Basophils (%) (Auto) 0.4 % (0.0-2.0) Sodium Level 157 MMOL/L (136-145) H Potassium Level 4.3 MMOL/L (3.5-5.1) Chloride Level 117 MMOL/L (98-107) H Carbon Dioxide Level 28 MMOL/L (21-32) Anion Gap 12 mmol/L (5-15) Blood Urea Nitrogen 71 mg/dL (7-18) H Creatinine 1.9 MG/DL (0.55-1.30) H Estimat Glomerular Filtration Rate 41.8 mL/min (>60) Glucose Level 609 MG/DL (74-106) *H Lactic Acid Level 6.20 mmol/L (0.4-2.0) H 5.40 mmol/L (0.66-2.22) H Calcium Level 10.5 MG/DL (8.5-10.1) H Total Bilirubin 0.3 MG/DL (0.2-1.0) Aspartate Amino Transf (AST/SGOT) 16 U/L (15-37) Alanine Aminotransferase (ALT/SGPT) 18 U/L (12-78) Alkaline Phosphatase 195 U/L (46-116) H Total Creatine Kinase 26 U/L (26-308) Creatine Kinase MB < 0.5 NG/ML (0.0-3.6) Creatine Kinase MB Relative Index 1.9 Troponin I 0.010 ng/mL (0.000-0.056) Total Protein 9.3 G/DL (6.4-8.2) H Albumin 2.3 G/DL (3.4-5.0) L Globulin 7.0 g/dL Albumin/Globulin Ratio 0.3 (1.0-2.7) L POC Whole Blood Glucose 453 MG/DL (74-106) H Test 06/02/20 04:00 06/02/20 05:46 White Blood Count 15.5 K/UL (4.8-10.8) H Red Blood Count 3.53 M/UL (4.70-6.10) L Hemoglobin 10.9 G/DL (14.2-18.0) L Hematocrit 35.5 % (42.0-52.0) L Mean Corpuscular Volume 101 FL (80-99) H Mean Corpuscular Hemoglobin 30.8 PG (27.0-31.0) Mean Corpuscular Hemoglobin Concent 30.6 G/DL (32.0-36.0) L Red Cell Distribution Width 13.8 % (11.6-14.8) Platelet Count 487 K/UL (150-450) H Mean Platelet Volume 7.5 FL (6.5-10.1) Neutrophils (%) (Auto) 76.9 % (45.0-75.0) H Lymphocytes (%) (Auto) 18.2 % (20.0-45.0) L Monocytes (%) (Auto) 4.2 % (1.0-10.0) Eosinophils (%) (Auto) 0.3 % (0.0-3.0) Basophils (%) (Auto) 0.4 % (0.0-2.0) Sodium Level 160 MMOL/L (136-145) H Potassium Level 3.5 MMOL/L (3.5-5.1) Chloride Level 123 MMOL/L (98-107) H Carbon Dioxide Level 29 MMOL/L (21-32) Anion Gap 9 mmol/L (5-15) Blood Urea Nitrogen 54 mg/dL (7-18) H Creatinine 1.4 MG/DL (0.55-1.30) H Estimat Glomerular Filtration Rate 59.4 mL/min (>60) Glucose Level 372 MG/DL (74-106) #H Lactic Acid Level 2.30 mmol/L (0.4-2.0) H Calcium Level 9.2 MG/DL (8.5-10.1) Magnesium Level 2.0 MG/DL (1.8-2.4) Total Bilirubin 0.3 MG/DL (0.2-1.0) Aspartate Amino Transf (AST/SGOT) 7 U/L (15-37) L Alanine Aminotransferase (ALT/SGPT) 17 U/L (12-78) Alkaline Phosphatase 172 U/L (46-116) H Troponin I 0.006 ng/mL (0.000-0.056) Total Protein 8.1 G/DL (6.4-8.2) Albumin 1.9 G/DL (3.4-5.0) L Globulin 6.2 g/dL Albumin/Globulin Ratio 0.3 (1.0-2.7) L POC Whole Blood Glucose Pending Microbiology Date/Time Source Procedure Growth Status 06/01/20 23:06 Nasopharynx SARS-CoV-2 RdRp Gene Assay - Final Complete 06/01/20 23:35 Rectum Received Height (Feet): 5 Height (Inches): 5.00 Weight (Pounds): 119 Medications Current Medications Medications (Trade) Dose Ordered Sig/Debi Route PRN Reason Start Time Stop Time Status Last Admin Dose Admin Acetaminophen (Tylenol) 650 mg Q6H PRN GT Mild Pain (Pain Scale 1-3) 06/02/20 03:15 07/02/20 03:14 Amantadine HCl (Symmetrel) 100 mg TWICE A DAY GT 06/02/20 09:00 07/02/20 08:59 8/20/20 08:38 Amlodipine Besylate (Norvasc) 10 mg DAILY GT 06/02/20 09:00 07/02/20 08:59 Aspirin (ASA) 81 mg DAILY GT 06/02/20 09:00 07/17/20 08:59 06/02/20 08:42 Dextrose (Dextrose 50%) 25 ml Q30M PRN IV Hypoglycemia 06/02/20 02:45 08/31/20 02:44 Dextrose (Dextrose 50%) 50 ml Q30M PRN IV Hypoglycemia 06/02/20 02:45 08/31/20 02:44 Ertapenem 1 gm/ Sodium Chloride 55 ml @ 110 mls/hr Q24H IV 06/02/20 09:00 06/03/20 08:59 Heparin Sodium (Porcine) (Heparin 5000 units/ml) 5,000 units EVERY 12 HOURS SUBQ 06/02/20 09:00 07/17/20 08:59 06/02/20 08:41 Hydroxyurea (Hydrea) 500 mg DAILY ORAL 06/02/20 09:00 06/07/20 08:59 UNV Insulin Aspart (NovoLOG) BEFORE MEALS AND HS SUBQ 06/02/20 06:30 08/31/20 06:29 06/02/20 05:52 Insulin Detemir (Levemir) 10 units BEFORE BREAKFAST SUBQ 06/02/20 06:30 08/31/20 06:29 06/02/20 05:51 Metronidazole 100 ml @ 100 mls/hr Q8H IVPB 06/02/20 08:00 06/09/20 07:59 06/02/20 08:38 Pravastatin Sodium (Pravachol) 20 mg BEDTIME GT 06/02/20 21:00 07/02/20 20:59 Sennosides (Senokot) 8.6 mg DAILY GT 06/02/20 09:00 07/02/20 08:59 06/02/20 08:38 Simethicone (Mylicon) 80 mg DAILY PRN GT GAS PAIN 06/02/20 02:45 08/31/20 02:44 Sodium Chloride 1,000 ml @ 75 mls/hr [id number] IV 06/02/20 03:30 07/02/20 03:29 06/02/20 03:30 Tamsulosin HCl (Flomax) 0.4 mg BEDTIME ORAL 06/02/20 21:00 07/02/20 20:59 Assessment/Plan Problem List: (1) Sepsis ICD Codes: A41.9 - Sepsis, unspecified organism SNOMED: 36218789 (2) Diabetes mellitus ICD Codes: E11.9 - Type 2 diabetes mellitus without complications SNOMED: 82618491 (3) Feeding by G-tube ICD Codes: Z93.1 - Gastrostomy status SNOMED: 489154109, 141044268, 269821358 (4) Severe protein-calorie malnutrition ICD Codes: E43 - Unspecified severe protein-calorie malnutrition SNOMED: 462788601, 728697539, 444816248 (5) History of CVA (cerebrovascular accident) ICD Codes: Z86.73 - Personal history of transient ischemic attack (TIA), and cerebral infarction without residual deficits SNOMED: 213537951 (6) Parkinson disease ICD Codes: G20 - Parkinson's disease SNOMED: 23288188 (7) History of hypertension ICD Codes: Z86.79 - Personal history of other diseases of the circulatory system SNOMED: 241141064 Assessment/Plan: [place] culture iv abx iv fluids renal studies urine electrolytes. sliding scale hold feeding for now Latanya Mckeon MD Jun 02, 2020 10:45
--- NOTE | 2020-06-02 10:47 | NUR ---
CASE MANAGEMENT: REVIEW 79 YEAR OLD MALE BIBA FROM [facility] CC: ABNORMAL LABS SI: SEPSIS . HYPERGLYCEMIA T 99.8 HR 120 RR 26 BP 85/68 SAT 97% NC/3L WBC 15.5 H/H 10.9/35.5 NA 157 GLUCOSE 609 IS: NS IVF BOLUS X1 VANCOMYCIN IV X1 FLAGYL IV X1 CEFEPIME IV X1 NOVOLIN R IV X1 PATIENT ADMITTED TO STEP DOWN UNIT 06/01/2020 DCP: PATIENT IS FROM [facility]
--- NOTE | 2020-06-02 10:50 | NUR ---
NURSE NOTES: Wound care nurse at bedside.
[2020-06-02 11:17] LABS: CREATINE KINASE 34 U/L (26-308)
--- NOTE | 2020-06-02 11:31 | Consultation ---
History of Present Illness General Date patient seen: Jun 02, 2020 Time patient seen: 11:30 Chief Complaint: Abnormal Labs Referring physician: Primary MD Reason for Consultation: Sepsis Present Illness HPI 79yo M from [facility] for fever and glc 609, ID consulted given c/f sepsis. Pt is not very interactive, eyes open to voice but no meaningful interaction, history obtained via chart review. PMH/PSH: Parkinson's dementia, DM2, bedridden, G-tube dependent NKDA Social hx: Resides at [facility] Fam hx: Non-contributory Allergies: Coded Allergies: No Known Allergies (Unverified , 08/27/19) Medication History Scheduled Amantadine Hcl* (Amantadine*), 100 MG ORAL TWICE A DAY, (Reported) Amantadine Hcl* (Amantadine*), 100 MG GT TWICE A DAY, (Reported) Amlodipine Besylate (Norvasc), 10 MG ORAL DAILY, (Reported) Amlodipine Besylate* (Amlodipine Besylate*), 10 MG GT DAILY, (Reported) Aspirin (Aspirin EC), 81 MG ORAL DAILY, (Reported) Benazepril/Hydrochlorothiazide (Lotensin Hct 10-12.5 mg Tablet), 1 EACH PO DAILY , (Reported) Docusate Sodium* (Colace*), 100 MG GT TWICE A DAY, (Reported) Ertapenem (Invanz), 1 GM IM DAILY Hydroxyurea* (HYDREA 500mg*), 500 MG PO DAILY, (Reported) Metformin Hcl (Glucophage), 1,000 MG ORAL BID, (Reported) Metformin Hcl* (Metformin Hcl*), 1,000 MG GT DAILY, (Reported) Pravastatin Sod (Pravastatin Sod), 20 MG ORAL DAILY, (Reported) Pravastatin Sod* (Pravastatin Sod*), 20 MG GT BEDTIME, (Reported) Tamsulosin HCl (Flomax), 0.4 MG ORAL BEDTIME Tamsulosin HCl (Flomax), 0.4 MG GT DAILY, (Reported) Scheduled PRN Acetaminophen* (Acetaminophen 325MG Tablet*), 325 MG GT Q6HR PRN for , ( Reported) Ondansetron* (Zofran*), 4 MG GT Q6H PRN for Nausea & Vomiting, (Reported) Simethicone* (Simethicone*), 80 MG GT DAILY PRN for GAS PAIN, (Reported) Miscellaneous Medications Hydroxyurea* (HYDREA 500mg*), 500 MG GT, (Reported) Sennosides (Senna), 8.6 MG GT, (Reported) Patient History Healthcare decision maker Resuscitation status Advanced Directive on File Review of Systems ROS Narrative Unable to assess 2/2 pt condition Physical Exam Physical Exam Narrative Gen: Older man, laying in bed, NAD HEENT: OP clear CV: RRR Pulm: CTAB on RA Abd: Soft, NTND Ext: No c/c/e Neuro: Awake Lines: Condom cath Last 24 Hour Vital Signs Date Time Temp Pulse Resp B/P (MAP) Pulse Ox O2 Delivery O2 Flow Rate FiO2 06/02/20 08:43 110 108/57 06/02/20 04:00 Room Air 06/02/20 04:00 111 06/02/20 04:00 98.1 105 20 137/64 (88) 98 06/02/20 02:01 Room Air 06/02/20 01:11 101 06/02/20 00:50 99.8 104 25 102/67 100 Room Air 06/01/20 22:30 99.8 112 24 90/69 100 Nasal Cannula 3.0 06/01/20 22:24 120 26 85/68 (74) 97 Nasal Cannula 3.0 Intake and Output 06/01/20 06/02/20 19:00 07:00 Intake Total 2272.5 ml Output Total 200 ml Balance 2072.5 ml Intake Oral 0 ml Free Water 150 ml IV Total 2017.5 ml Tube Feeding 105 ml Output Other 200 ml Laboratory Tests Test 06/01/20 22:38 06/01/20 22:45 06/01/20 23:58 06/02/20 00:28 Urine Color Yellow Urine Appearance Slightly cloudy Urine pH 6 (4.5-8.0) Urine Specific [place] 1.010 (1.005-1.035) Urine Protein 3+ (NEGATIVE) H Urine Glucose (UA) 2+ (NEGATIVE) H Urine Ketones Negative (NEGATIVE) Urine Blood 5+ (NEGATIVE) H Urine Nitrite Negative (NEGATIVE) Urine Bilirubin Negative (NEGATIVE) Urine Urobilinogen Normal MG/DL (0.0-1.0) Urine Leukocyte Esterase 3+ (NEGATIVE) H Urine RBC 20-30 /HPF (0 - 0) H Urine WBC Tntc /HPF (0 - 0) H Urine Squamous Epithelial Cells Occasional /LPF Urine Bacteria Many /HPF (NONE) H White Blood Count 13.2 K/UL (4.8-10.8) H Red Blood Count 3.96 M/UL (4.70-6.10) L Hemoglobin 12.4 G/DL (14.2-18.0) L Hematocrit 40.9 % (42.0-52.0) L Mean Corpuscular Volume 103 FL (80-99) H Mean Corpuscular Hemoglobin 31.2 PG (27.0-31.0) H Mean Corpuscular Hemoglobin Concent 30.3 G/DL (32.0-36.0) L Red Cell Distribution Width 14.4 % (11.6-14.8) Platelet Count 514 K/UL (150-450) H Mean Platelet Volume 8.1 FL (6.5-10.1) Neutrophils (%) (Auto) 81.7 % (45.0-75.0) H Lymphocytes (%) (Auto) 13.6 % (20.0-45.0) L Monocytes (%) (Auto) 4.1 % (1.0-10.0) Eosinophils (%) (Auto) 0.1 % (0.0-3.0) Basophils (%) (Auto) 0.4 % (0.0-2.0) Sodium Level 157 MMOL/L (136-145) H Potassium Level 4.3 MMOL/L (3.5-5.1) Chloride Level 117 MMOL/L (98-107) H Carbon Dioxide Level 28 MMOL/L (21-32) Anion Gap 12 mmol/L (5-15) Blood Urea Nitrogen 71 mg/dL (7-18) H Creatinine 1.9 MG/DL (0.55-1.30) H Estimat Glomerular Filtration Rate 41.8 mL/min (>60) Glucose Level 609 MG/DL (74-106) *H Lactic Acid Level 6.20 mmol/L (0.4-2.0) H 5.40 mmol/L (0.66-2.22) H Calcium Level 10.5 MG/DL (8.5-10.1) H Total Bilirubin 0.3 MG/DL (0.2-1.0) Aspartate Amino Transf (AST/SGOT) 16 U/L (15-37) Alanine Aminotransferase (ALT/SGPT) 18 U/L (12-78) Alkaline Phosphatase 195 U/L (46-116) H Total Creatine Kinase 26 U/L (26-308) Creatine Kinase MB < 0.5 NG/ML (0.0-3.6) Creatine Kinase MB Relative Index 1.9 Troponin I 0.010 ng/mL (0.000-0.056) Total Protein 9.3 G/DL (6.4-8.2) H Albumin 2.3 G/DL (3.4-5.0) L Globulin 7.0 g/dL Albumin/Globulin Ratio 0.3 (1.0-2.7) L POC Whole Blood Glucose 453 MG/DL (74-106) H Test 06/02/20 04:00 06/02/20 05:46 06/02/20 10:30 White Blood Count 15.5 K/UL (4.8-10.8) H Red Blood Count 3.53 M/UL (4.70-6.10) L Hemoglobin 10.9 G/DL (14.2-18.0) L Hematocrit 35.5 % (42.0-52.0) L Mean Corpuscular Volume 101 FL (80-99) H Mean Corpuscular Hemoglobin 30.8 PG (27.0-31.0) Mean Corpuscular Hemoglobin Concent 30.6 G/DL (32.0-36.0) L Red Cell Distribution Width 13.8 % (11.6-14.8) Platelet Count 487 K/UL (150-450) H Mean Platelet Volume 7.5 FL (6.5-10.1) Neutrophils (%) (Auto) 76.9 % (45.0-75.0) H Lymphocytes (%) (Auto) 18.2 % (20.0-45.0) L Monocytes (%) (Auto) 4.2 % (1.0-10.0) Eosinophils (%) (Auto) 0.3 % (0.0-3.0) Basophils (%) (Auto) 0.4 % (0.0-2.0) Sodium Level 160 MMOL/L (136-145) H Potassium Level 3.5 MMOL/L (3.5-5.1) Chloride Level 123 MMOL/L (98-107) H Carbon Dioxide Level 29 MMOL/L (21-32) Anion Gap 9 mmol/L (5-15) Blood Urea Nitrogen 54 mg/dL (7-18) H Creatinine 1.4 MG/DL (0.55-1.30) H Estimat Glomerular Filtration Rate 59.4 mL/min (>60) Glucose Level 372 MG/DL (74-106) #H Lactic Acid Level 2.30 mmol/L (0.4-2.0) H Uric Acid 8.0 MG/DL (2.6-7.2) H Calcium Level 9.2 MG/DL (8.5-10.1) Magnesium Level 2.0 MG/DL (1.8-2.4) Total Bilirubin 0.3 MG/DL (0.2-1.0) Aspartate Amino Transf (AST/SGOT) 7 U/L (15-37) L Alanine Aminotransferase (ALT/SGPT) 17 U/L (12-78) Alkaline Phosphatase 172 U/L (46-116) H Total Creatine Kinase 34 U/L (26-308) Troponin I 0.006 ng/mL (0.000-0.056) Total Protein 8.1 G/DL (6.4-8.2) Albumin 1.9 G/DL (3.4-5.0) L Globulin 6.2 g/dL Albumin/Globulin Ratio 0.3 (1.0-2.7) L POC Whole Blood Glucose Pending Pending Microbiology Date/Time Source Procedure Growth Status 06/01/20 23:06 Nasopharynx SARS-CoV-2 RdRp Gene Assay - Final Complete 06/01/20 23:35 Rectum Received Height (Feet): 5 Height (Inches): 5.00 Weight (Pounds): 119 Medications Current Medications Medications (Trade) Dose Ordered Sig/Debi Route PRN Reason Start Time Stop Time Status Last Admin Dose Admin Acetaminophen (Tylenol) 650 mg Q6H PRN GT Mild Pain (Pain Scale 1-3) 06/02/20 03:15 07/02/20 03:14 Amantadine HCl (Symmetrel) 100 mg TWICE A DAY GT 06/02/20 09:00 07/02/20 08:59 06/02/20 08:38 Amlodipine Besylate (Norvasc) 10 mg DAILY GT 06/02/20 09:00 07/02/20 08:59 Aspirin (ASA) 81 mg DAILY GT 06/02/20 09:00 07/17/20 08:59 06/02/20 08:42 Dextrose (Dextrose 50%) 25 ml Q30M PRN IV Hypoglycemia 06/02/20 02:45 08/31/20 02:44 Dextrose (Dextrose 50%) 50 ml Q30M PRN IV Hypoglycemia 06/02/20 02:45 08/31/20 02:44 Ertapenem 1 gm/ Sodium Chloride 55 ml @ 110 mls/hr Q24H IV 06/02/20 09:00 06/03/20 08:59 06/02/20 10:30 Heparin Sodium (Porcine) (Heparin 5000 units/ml) 5,000 units EVERY 12 HOURS SUBQ 06/02/20 09:00 07/17/20 08:59 06/02/20 08:41 Insulin Aspart (NovoLOG) BEFORE MEALS AND HS SUBQ 06/02/20 06:30 08/31/20 06:29 06/02/20 10:32 Insulin Detemir (Levemir) 10 units BEFORE BREAKFAST SUBQ 06/02/20 06:30 08/31/20 06:29 06/02/20 05:51 Metronidazole 100 ml @ 100 mls/hr Q8H IVPB 06/02/20 08:00 06/09/20 07:59 06/02/20 08:38 Pravastatin Sodium (Pravachol) 20 mg BEDTIME GT 06/02/20 21:00 07/02/20 20:59 Sennosides (Senokot) 8.6 mg DAILY GT 06/02/20 09:00 07/02/20 08:59 06/02/20 08:38 Simethicone (Mylicon) 80 mg DAILY PRN GT GAS PAIN 06/02/20 02:45 08/31/20 02:44 Sodium Chloride 1,000 ml @ 75 mls/hr [id number] IV 06/02/20 03:30 07/02/20 03:29 06/02/20 03:30 Assessment/Plan Assessment/Plan: 79yo M with: Fever Leukocytosis, improving KELLY, improving 06/01 UA w/ pyuria, UCx p 06/01 BCx p 06/01 CXR: No acute process COVID rapid test neg H/o ESBL Proteus in UCx in Oct 2019 PMH: DM2 Parkinson's dementia Bedridden G-tube Plan: S/p ertapenem 1g IV today, will cover pt through tomorrow Tomorrow can start meropenem given this is on formulary, though ertapenem is also appropriate if able given pt's prior organisms 06/01 SP cefepime, vanco, flagyl x1 in ED F/u UCx, BCx, MRSA nares Monitor CBC/BMP Trend leukocytosis, KELLY Trend hemodynamics, temp curve D/w Pharmacy Thank you for this consult. [facility] will continue to follow. Marixa Oliva M.D. Jun 02, 2020 11:31
[2020-06-02 12:00] VITALS: BP 111/58
--- NOTE | 2020-06-02 13:48 | NUR ---
NURSE NOTES: Received patient from JOHNNY Garcia. Patient is aaox 1, non verbal, on athletic monitor, with no acute distress and in bed. Patient is well groomed and cooperative. Patient is on room air and saturating at 98% O2. Gt tube running Glucerna 1.5 at 30mL/hr. Condom catheter patent and draining to gravity with signs of hematuria. Patient has a sacral stage 4, healed, closed and dry. Bilateral heel redness with protection. Right hand 22g and left 20g patent and no signs of infection. Bed is at its lowest position, call light in reach and x3 bed rails are up. Will continue to monitor. Addendum: 06/02/20 at 1357 by Ant Matias RN Wrong Time
--- NOTE | 2020-06-02 13:53 | Diagnostic Imaging Report ---
EXAM: ULTRASOUND US Renal Comp CLINICAL HISTORY: Abdominal discomfort. Abnormal renal labs.. COMPARISON: None TECHNIQUE: Ultrasound examination of the kidneys includes grayscale images, and color and spectral doppler analysis. FINDINGS: The right kidney measures 9.3 x 4 x 5 cm and the left kidney measures 10.1 x 4.8 x 4.9 cm. There are multiple bilateral renal cysts. Shadowing stone noted at the upper pole of the left kidney. No john hydronephrosis demonstrated. Bladder is empty . There is a grossly enlarged prostate estimated at 104 g. IMPRESSION: LEFT RENAL UPPER POLE STONE. NO HYDRONEPHROSIS. BILATERAL RENAL CYSTS. GROSSLY ENLARGED PROSTATE.
[2020-06-02] MEDS ORDERED: Meropenem 1gm in NS 55ml IVPB SCH (14:00)
--- NOTE | 2020-06-02 14:34 | NUR ---
NURSE NOTES: Patient cleaned, bandages changed with wound care nurse.
[2020-06-02 16:00] VITALS: BP 124/66
--- NOTE | 2020-06-02 17:18 | History & Physical ---
History and Physical History & Physicial Dictated for Int Med-Dr [place] no. [id number]. Tello Cobb MD Jun 02, 2020 17:18
--- NOTE | 2020-06-02 17:23 | NUR ---
NURSE NOTES: .45% saline cannot scan with new scanner. JOHNNY Jacob witnessed multiple unsuccessful scans.
--- NOTE | 2020-06-02 18:29 | History and Physical Report ---
DATE OF ADMISSION: 06/01/2020 CHIEF COMPLAINT: The patient is a 79-year-old male, who presents with chief complaint of fever and abnormal labs. HISTORY OF PRESENT ILLNESS: The patient is a resident of [facility]. The patient was admitted to [facility] in October 2019. Please see history and physical and discharge summary dictated at that time. According to the staff at [facility], the patient began to experience low-grade fevers yesterday, June 01, 2020. The patient had routine labs performed. Blood glucose was found to be greater than 600. The patient was transferred to [facility] for evaluation. Upon arrival at [place], the patient was found to be febrile with a glucose value of 609. The patient is admitted with hyperglycemia and fever to rule out sepsis. REVIEW OF SYSTEMS: Unable to assess secondary to the patient's mental status. PAST MEDICAL HISTORY: Significant for: 1. Hypertension. 2. Diabetes type 2. 3. Hypercholesterolemia. 4. Dysphagia. 5. Parkinson disease. 6. Ulcerative proctitis. 7. Protein-calorie malnutrition. 8. History of sacral decubitus ulcer stage IV. 9. Benign prostatic hypertrophy. 10. History of left hip fracture. 11. Gastroesophageal reflux disease. 12. Metabolic encephalopathy. PAST SURGICAL HISTORY: Significant for: 1. PEG placement. 2. Open reduction and internal fixation of left hip fracture. CURRENT MEDICATIONS: 1. Tylenol 650 mg per G-tube q.4h. p.r.n. 2. Amantadine 100 mg per G-tube twice daily. 3. Amlodipine 10 mg per G-tube daily. 4. Diclofenac gel applied twice daily. 5. Hydroxyurea 500 mg per G-tube daily. 6. Metformin 1000 mg per G-tube twice daily. 7. Pravastatin 20 milligrams per G-tube daily. 8. Tamsulosin 0.4 mg per G-tube daily. 9. Vitamin C 500 mg per G-tube daily. ALLERGIES: No known drug allergies. SOCIAL HISTORY: The patient is single and is a resident of [facility]. The patient denies tobacco or alcohol use. PHYSICAL EXAMINATION: VITAL SIGNS: Temperature 98.8, respirations 24, pulse 112, blood pressure 90/69. GENERAL: The patient is a well-developed, well-nourished, thin-appearing, male, in no apparent distress. HEENT: Eyes, pupils equal and responsive to light and accommodation. Extraocular movements are intact. NECK: Supple without lymphadenopathy. CHEST: Lungs are clear to auscultation bilaterally without wheezes or rales. CARDIOVASCULAR: Slightly tachycardic, regular . S1, S2 are normal without murmurs, rubs, or gallops. ABDOMEN: Soft, nontender, and nondistended. Positive bowel sounds. No evidence of hepatosplenomegaly. Currently, no rebound or guarding noted. EXTREMITIES: Negative for clubbing, cyanosis, or edema. RECTAL: Not performed. GENITAL: Not performed. NEUROLOGIC: Cranial nerves II through XII are grossly intact without focal deficits. LABORATORY STUDIES: WBC 13.2, hemoglobin 12.4, hematocrit 40.9, platelets 514,000. Sodium 157, potassium 4.3, chloride 117, CO2 of 20, BUN 71, creatinine 1.9, glucose 609. Urinalysis showed 2+ glucose, 5+ blood, and wbc's too numerous to count. A chest x-ray was reported as no acute disease. ASSESSMENT: This is a 79-year-old male with: 1. Hyperglycemia. 2. Hypernatremia. 3. Urinary tract infection. 4. Diabetes type 2. 5. Hypertension. 6. Hypercholesterolemia. 7. Dysphagia. 8. Parkinson disease. 9. Ulcerative proctitis. 10. Protein-calorie malnutrition. 11. History of sacral decubitus ulcer stage IV. 12. Benign prostatic hypertrophy. 13. Gastroesophageal reflux disease. 14. Metabolic encephalopathy. 15. History of left hip fracture. TREATMENT: 1. Hyperglycemia/diabetes. The patient has been placed on a protocol using NovoLog sliding scale. The patient's blood sugars have been running in 300s. Hyperglycemia may be secondary to urinary tract infection. 2. Urinary tract infection. Urine culture is pending. The patient has been started empirically on intravenous meropenem. Await urine culture results. 3. Hypertension. Continue amlodipine as above. 4. Hypercholesterolemia. Continue atorvastatin as above. 5. Dysphagia. The patient is status post PEG placement. 6. Parkinson disease. Continue amantadine as above. 7. Ulcerative proctitis. 8. Protein-calorie malnutrition. 9. Sacral decubitus ulcer stage IV. 10. Benign prostatic hypertrophy. Continue tamsulosin as above. 11. Gastroesophageal reflux disease. 12. Metabolic encephalopathy. 13. History of left hip fracture. Tello Cobb M.D. DR: Angelina JOB#: [id number] CC:
--- NOTE | 2020-06-02 19:25 | NUR ---
NURSE HAND-OFF REPORT: Important Events on Shift:100cc/hr tap water flush instead of Tube feeding for the next 24 hours. Patient Status: Full code Diet: On hold until tap water flush complete. Pending Orders: N/A Pending Results/Labs:N/A Pending MD notification:N/A Latest Vital Signs: Temperature 98.2 , Pulse 105 , B/P 124 /66 , Respiratory Rate 20 , O2 SAT 98 , Room Air, O2 Flow Rate 3.0 . Vital Sign Comment: stable EKG Rhythm: Sinus Tachycardia Rhythm change?: N MD Notified?: - MD Response: Latest Lane Fall Score: 70 Fall Risk: High Risk Safety Measures: Call light Within Reach, Bed Alarm Zone 3, Side Rails Side Rails x3, Bed position Low and Locked. Fall Precautions: Yellow Socks Yellow Gown Door Sign Patient Fall Education Report given to JOHNNY Jacob
--- NOTE | 2020-06-02 19:38 | NUR ---
NURSE NOTES: Received report from JOHNNY Cain with update. Pt alert in bed - no cardiac distress, respiratory distress, or pain noted. Orders to hold feeding and initiate 100 cc Free Water Flush Qhourly for 24 hours starting 10AM - 10AM 06/03, per [facility]. G-tube patent and intact. condom catheter patent and draining well to gravity. Bed kept in lowest and locked position. Call light within reach. Will continue to monitor. Will continue to monitor.
[2020-06-02 20:00] VITALS: BP_SYST 110; BP_SYST 128; BP_DIAS 65; BP_DIAS 69
--- NOTE | 2020-06-02 23:00 | NUR ---
NURSE NOTES: Culture urine specimens collected and sent to lab.
[2020-06-03] VITALS (7 sets, daily range): BP systolic 102–139; BP diastolic 59–77
[2020-06-03 01:25] LABS: BILIRUBIN, URINE NEGATIVE (NEGATIVE); COLOR,URINE PALE YELLOW; GLUCOSE, URINE (UA) NEGATIVE (NEGATIVE); KETONES,URINE NEGATIVE (NEGATIVE); LEUKOCYTE ESTERASE ,URINE 3+ (NEGATIVE); NITRITE,URINE NEGATIVE (NEGATIVE); PH,URINE 7 (4.5-8.0); PROTEIN,URINE 2+ (NEGATIVE); UROBILINOGEN,URINE NORMAL MG/DL (0.0-1.0)
[2020-06-03 01:41] LABS: APPEARANCE,URINE SLIGHTLY CLOUDY
--- NOTE | 2020-06-03 03:30 | NUR ---
NURSE NOTES: Removed right hand IV for infiltration / unknown insertion date. Continued on FWF hourly. Pt in stable condition.
[2020-06-03] MEDS: Levemir Flexpen SUBQ SCH (05:57)
[2020-06-03] MEDS: NovoLOG Insulin Flexpen SUBQ SCH ×4 (05:58→21:06)
--- NOTE | 2020-06-03 07:08 | NUR ---
NURSE HAND-OFF REPORT: Important Events on Shift: Held insulin for BSG 117. Patient Status: Stable Diet: NPO Pending Orders: N Pending Results/Labs: N Pending MD notification:N Latest Vital Signs: Temperature 98.2 , Pulse 107 , B/P 111 /63 , Respiratory Rate 18 , O2 SAT 98 , Room Air, O2 Flow Rate 3.0 . Vital Sign Comment: EKG Rhythm: Sinus Tachycardia Rhythm change?: N MD Notified?: - MD Response: Latest Lane Fall Score: 70 Fall Risk: High Risk Safety Measures: Call light Within Reach, Bed Alarm Zone 3, Side Rails Side Rails x3, Bed position Low and Locked. Fall Precautions: Yellow Socks Yellow Gown Door Sign Patient Fall Education Report given to JOHNNY Cain.
--- NOTE | 2020-06-03 07:09 | NUR ---
NURSE NOTES: Received patient from JOHNNY Garcia. Patient is aaox 1, non verbal, on director of cardiac rehabilitation, with no acute distress and in bed. Patient is well groomed and cooperative. Patient is on room air and saturating at 100% O2. Gt tube on hold with 100cc tap water every hour for 24 hours. Condom catheter patent and draining to gravity with signs of hematuria. Patient has a sacral stage 4, healed, closed and dry. Bilateral heel redness with protection. Right hand 22g and left 20g patent and no signs of infection. Bed is at its lowest position, call light in reach and x3 bed rails are up. Will continue to monitor.
[2020-06-03 07:20] LABS: ALANINE AMINOTRANSFERASE 15 U/L (12-78); ALBUMIN 2.1 G/DL (3.4-5.0); ALBUMIN/GLOBULIN RATIO 0.3 (1.0-2.7); ALKALINE PHOSPHATASE 191 U/L (46-116); ANION GAP 12 mmol/L (5-15); ASPARTATE AMINO TRANSFERASE 16 U/L (15-37); BILIRUBIN,TOTAL 0.4 MG/DL (0.2-1.0); BLOOD UREA NITROGEN 30 mg/dL (7-18); CARBON DIOXIDE 30 MMOL/L (21-32); CHLORIDE 126 MMOL/L (98-107); CREATININE 1.2 MG/DL (0.55-1.30); PHOSPHORUS 2.9 MG/DL (2.5-4.9); POTASSIUM 3.4 MMOL/L (3.5-5.1)
[2020-06-03 07:26] LABS: BASOPHILS % (AUTO) 0.4 % (0.0-2.0); EOSINOPHILS % (AUTO) 0.7 % (0.0-3.0); HEMATOCRIT 39.2 % (42.0-52.0); HEMOGLOBIN 11.9 G/DL (14.2-18.0); LYMPHOCYTES % (AUTO) 21.3 % (20.0-45.0); MEAN CORPUSCULAR VOLUME 100 FL (80-99); MONOCYTES % (AUTO) 4.8 % (1.0-10.0); NEUTROPHILS % (AUTO) 72.9 % (45.0-75.0); PLATELET COUNT 543 K/UL (150-450); RED CELL DISTRIBUTION WIDTH 13.9 % (11.6-14.8); WHITE BLOOD COUNT 11.9 K/UL (4.8-10.8)
--- NOTE | 2020-06-03 07:29 | Infectious Diseases Prog Note ---
Assessment/Plan 79yo M with: Fever Leukocytosis, improving KELLY, improving UTI 06/01 UA w/ pyuria, UCx +GNRs 06/01 BCx NTD 06/01 CXR: No acute process COVID rapid test neg H/o ESBL Proteus in UCx in Oct 2019 Renal US w/ BL cysts PMH: DM2 Parkinson's dementia Bedridden G-tube Plan: Cont meropenem #1 (abx day #2), likely needs 7 day course for UTI but abx TBD pending final UCx F/u UCx GNRs, narrow abx as able F/u BCx, MRSA nares 06/02 SP erta #1 06/01 SP cefepime, vanco, flagyl x1 in ED Monitor CBC/BMP Trend leukocytosis, KELLY Trend hemodynamics, temp curve D/w RN Thank you for this consult. [facility] will continue to follow. Subjective Allergies: Coded Allergies: No Known Allergies (Unverified , 08/27/19) Tmax 100.3 On RA NAD WBC 11 from 15 Objective Last 24 Hour Vital Signs Date Time Temp Pulse Resp B/P (MAP) Pulse Ox O2 Delivery O2 Flow Rate FiO2 06/03/20 04:00 98.2 107 18 111/63 (79) 98 06/03/20 04:00 Room Air 06/03/20 03:36 110 06/03/20 00:00 120 06/03/20 00:00 Room Air 06/03/20 00:00 100.3 118 20 120/66 (84) 98 06/02/20 20:00 100.0 116 20 110/69 (83) 98 06/02/20 20:00 Room Air 06/02/20 19:26 113 06/02/20 16:00 Room Air 06/02/20 16:00 105 06/02/20 16:00 98.2 120 20 124/66 (85) 98 06/02/20 12:00 Room Air 06/02/20 12:00 98.0 110 20 111/58 (75) 98 06/02/20 11:54 104 06/02/20 08:43 110 108/57 06/02/20 08:00 97.0 110 21 108/57 (74) 97 06/02/20 08:00 Room Air 06/02/20 07:52 114 Height (Feet): 5 Height (Inches): 5.00 Weight (Pounds): 115 Gen: NAD in bed HEENT: OP clear CV: RRR Pulm: CTAB anteriorly Abd: Soft, NTND Neuro: Not interactive Microbiology Date/Time Source Procedure Growth Status 06/01/20 22:45 Blood Blood Culture - Preliminary NO GROWTH AFTER 24 HOURS Resulted 06/01/20 22:30 Blood Blood Culture - Preliminary NO GROWTH AFTER 24 HOURS Resulted 06/01/20 23:06 Nasopharynx SARS-CoV-2 RdRp Gene Assay - Final Complete 06/01/20 22:38 Urine,Clean Catch Urine Culture - Preliminary Gram Negative Martín Resulted 06/01/20 23:35 Rectum Received Laboratory Tests Test 06/02/20 10:30 06/02/20 17:11 06/02/20 23:09 06/03/20 01:00 POC Whole Blood Glucose Pending 154 MG/DL (74-106) H 122 MG/DL (74-106) H Urine Color Pale yellow Urine Appearance Slightly cloudy Urine pH 7 (4.5-8.0) Urine Specific [place] 1.005 (1.005-1.035) Urine Protein 2+ (NEGATIVE) H Urine Glucose (UA) Negative (NEGATIVE) Urine Ketones Negative (NEGATIVE) Urine Blood 3+ (NEGATIVE) H Urine Nitrite Negative (NEGATIVE) Urine Bilirubin Negative (NEGATIVE) Urine Urobilinogen Normal MG/DL (0.0-1.0) Urine Leukocyte Esterase 3+ (NEGATIVE) H Urine RBC 10-15 /HPF (0 - 0) H Urine WBC 40-60 /HPF (0 - 0) H Urine Squamous Epithelial Cells None /LPF (NONE/OCC) Urine Bacteria Few /HPF (NONE) Urine Eosinophils None seen (NONE SEEN) Urine Random Creatinine Pending Urine Random Microalbumin Pending Urine Random Sodium 86 mmol/L (20-110) Urine Microalbumin/Creatinine Ratio Pending Test 06/03/20 03:33 White Blood Count Pending Red Blood Count Pending Hemoglobin Pending Hematocrit Pending Mean Corpuscular Volume Pending Mean Corpuscular Hemoglobin Pending Mean Corpuscular Hemoglobin Concent Pending Red Cell Distribution Width Pending Platelet Count Pending Mean Platelet Volume Pending Neutrophils (%) (Auto) Pending Lymphocytes (%) (Auto) Pending Monocytes (%) (Auto) Pending Eosinophils (%) (Auto) Pending Basophils (%) (Auto) Pending Erythrocyte Sedimentation Rate Pending Sodium Level Pending Potassium Level Pending Chloride Level Pending Carbon Dioxide Level Pending Blood Urea Nitrogen Pending Creatinine Pending Estimat Glomerular Filtration Rate Pending Glucose Level Pending Calcium Level Pending Phosphorus Level Pending Magnesium Level Pending Total Bilirubin Pending Aspartate Amino Transf (AST/SGOT) Pending Alanine Aminotransferase (ALT/SGPT) Pending Alkaline Phosphatase Pending C-Reactive Protein, Quantitative Pending Total Protein Pending Albumin Pending Globulin Pending Current Medications Medications (Trade) Dose Ordered Sig/Debi Route PRN Reason Start Time Stop Time Status Last Admin Dose Admin Acetaminophen (Tylenol) 650 mg Q6H PRN GT Mild Pain (Pain Scale 1-3) 06/02/20 03:15 07/02/20 03:14 Amantadine HCl (Symmetrel) 100 mg TWICE A DAY GT 06/02/20 09:00 07/02/20 08:59 06/02/20 17:18 Amlodipine Besylate (Norvasc) 10 mg DAILY GT 06/02/20 09:00 07/02/20 08:59 Aspirin (ASA) 81 mg DAILY GT 06/02/20 09:00 07/17/20 08:59 06/02/20 08:42 Dextrose (Dextrose 50%) 25 ml Q30M PRN IV Hypoglycemia 06/02/20 02:45 08/31/20 02:44 Dextrose (Dextrose 50%) 50 ml Q30M PRN IV Hypoglycemia 06/02/20 02:45 08/31/20 02:44 Heparin Sodium (Porcine) (Heparin 5000 units/ml) 5,000 units EVERY 12 HOURS SUBQ 06/02/20 09:00 07/17/20 08:59 06/02/20 23:17 Insulin Aspart (NovoLOG) BEFORE MEALS AND HS SUBQ 06/02/20 06:30 08/31/20 06:29 06/02/20 17:21 Insulin Detemir (Levemir) 10 units BEFORE BREAKFAST SUBQ 06/02/20 06:30 08/31/20 06:29 06/02/20 05:51 Meropenem 1 gm/ Sodium Chloride 55 ml @ 110 mls/hr Q12HR IVPB 06/03/20 09:00 06/08/20 08:59 Metronidazole 100 ml @ 100 mls/hr Q8H IVPB 06/02/20 08:00 06/09/20 07:59 06/02/20 23:13 Pravastatin Sodium (Pravachol) 20 mg BEDTIME GT 06/02/20 21:00 07/02/20 20:59 06/02/20 23:18 Sennosides (Senokot) 8.6 mg DAILY GT 06/02/20 09:00 07/02/20 08:59 06/02/20 08:38 Simethicone (Mylicon) 80 mg DAILY PRN GT GAS PAIN 06/02/20 02:45 08/31/20 02:44 Sodium Chloride 1,000 ml @ 75 mls/hr [id number] IV 06/02/20 03:30 07/02/20 03:29 06/03/20 02:00 Marixa Oliva M.D. Jun 03, 2020 07:29
[2020-06-03 07:31] LABS: SODIUM 167 MMOL/L (136-145)
[2020-06-03] MEDS ORDERED: D5 1/2NS w/KCl 20mEq 1,000 ML IV SCH (08:15)
[2020-06-03] MEDS: Sennosides 8.6mg tab GT SCH (08:54)
[2020-06-03] MEDS: Aspirin Baby 81mg GT SCH (08:54)
[2020-06-03] MEDS: Amantadine 100mg cap GT SCH ×2 (08:54→18:26)
[2020-06-03] MEDS: Meropenem 1gm in NS 55ml IVPB SCH ×2 (08:55→21:04)
[2020-06-03] MEDS: Heparin 5000 units/ml inj SUBQ SCH ×2 (08:57→21:07)
--- NOTE | 2020-06-03 09:30 | Consultation ---
DATE OF CONSULTATION: 06/03/2020 ENDOCRINOLOGY CONSULTATION CONSULTING PHYSICIAN: Gregory Pastrana MD. REFERRING PHYSICIAN: Cirilo Rome MD. REASON FOR CONSULTATION: Diabetes management. HISTORY OF PRESENT ILLNESS: The patient is a 79-year-old male who resides in a convalescent home, was brought to the hospital with a glucose of 600 and hypernatremia. The patient has history of Parkinson disease as well as chronic pancreatitis and encephalopathy. History is mostly obtained from review of the records since the patient is not able to provide any meaningful history. He is chronically bedridden and he is a G-tube dependent. PAST MEDICAL HISTORY: 1. Diabetes. 2. Parkinson's. 3. Hypertension. 4. CVA. 5. Dysphagia, on G-tube feeding. PAST SURGICAL HISTORY: PEG placement. FAMILY HISTORY: Noncontributory. SOCIAL HISTORY: Resident of [facility] facility. REVIEW OF SYSTEMS: Unobtainable. LABORATORY DATA: WBC 15, hemoglobin 10, hematocrit 35, and platelets of 497,000. Sodium 160, potassium 3.5, chloride 123, bicarb 29, BUN 55, creatinine 1.4. Glucose of 372. Alkaline phosphatase of 172. Lactic acid of 2.3. PHYSICAL EXAMINATION: VITAL SIGNS: Blood pressure 111/68, pulse of 107, temperature 98.2, respiratory rate 18. HEENT: Pupils are equal and reactive to light. Sclerae are anicteric. NECK: No JVD. HEART: Regular. LUNGS: Clear. ABDOMEN: G-tube noted. EXTREMITIES: Trace edema. DIAGNOSES: 1. Severe hyperglycemia without ketoacidosis. 2. Lactic acidosis. 3. Hypernatremia. PLAN: 1. Continue IV hydration. 2. Continue NovoLog sliding scale before meals and at bedtime. 3. Continue Levemir 10 units daily. 4. Continue to hold metformin due to lactic acidosis. 5. Further adjustment according to the blood glucose values. 6. Hypoglycemic protocol is in order. Thank you, Dr. Rome, for the courtesy of this consultation. Gregory Pastrana M.D. DR: JOHNNY/RIGOBERTO JOB#: [id number] CC: SHELLY
--- NOTE | 2020-06-03 09:55 | NUR ---
RADIOLOGY DEPT., CHEST X-RAY DONE.-P.DYE
--- NOTE | 2020-06-03 11:13 | Consultation ---
Consult Note Consult Note I am asked to evaluate the patient at the request of Dr. Rome for renal failure and fluid and electrolyte management Patient seen, examined, poor historian Patient is a 79-year-old male sent in from [facility] for increased fever and abnormal laboratory testing. Patient was noted to have prior history of type 2 diabetes and was noted to have sugar greater than 600 on laboratory testing. Was also noted to have markedly increased serum sodium. Prior history of Parkinson's disease as well as chronic pancreatitis and encephalopathy. Patient is chronically bedridden. He is G-tube dependent. No Known Allergies (Unverified , 08/27/19) COVID-19 Screening Contact w/high risk pt: Yes Experienced COVID-19 symptoms?: Yes Hx Cardiac Problems: Yes Hx Hypertension: Yes Hx Diabetes: Yes Hx Gastrointestinal Problems: Yes - G tube Hx Neurological Problems: Yes Hx Cerebrovascular Accident: Yes PHYSICAL EXAMINATION: VITAL SIGNS: Temperature 98.8, respirations 24, pulse 112, blood pressure 90/69. GENERAL: The patient is a well-developed, well-nourished, thin-appearing, male, in no apparent distress. HEENT: Eyes, pupils equal and responsive to light and accommodation. Extraocular movements are intact. NECK: Supple without lymphadenopathy. CHEST: Lungs are clear to auscultation bilaterally without wheezes or rales. CARDIOVASCULAR: Slightly tachycardic, regular rate S1, S2 are normal without murmurs, rubs, or gallops. ABDOMEN: Soft, nontender, and nondistended. Positive bowel sounds. No evidence of hepatosplenomegaly. Currently, no rebound or guarding noted. EXTREMITIES: Negative for clubbing, cyanosis, or edema. RECTAL: Not performed. GENITAL: Not performed. NEUROLOGIC: Cranial nerves II through XII are grossly intact without focal deficits. LABORATORY STUDIES: WBC 13.2, hemoglobin 12.4, hematocrit 40.9, platelets 514,000. Sodium 157, potassium 4.3, chloride 117, CO2 of 20, BUN 71, creatinine 1.9, glucose 609. Urinalysis showed 2+ glucose, 5+ blood, and wbc's too numerous to count. A chest x-ray was reported as no acute disease. . . Assessment/Plan KELLY, resolving, serum creatinine of 1.9 now down to 1.2 Hypernatremia, dehydration, free water deficit Sepsis Diabetes mellitus [id number] GT feeding Severe protein calorie malnutrition History of CVA History of hypertension Parkinson's disease IV fluid D5W Monitor electrolytes Monitor renal parameters Hold blood pressure medication since blood pressure low Per orders, per consultants Patient had 3-4 previous admissions at [facility]. I spent an additional 36 minutes on review of medical records including prior hospital records,consult notes, progress notes, procedures ,imaging labs, hemodynamics, and other clinical documentation. Over 35 min Eddie Nelson MD Jun 03, 2020 11:13
[2020-06-03] MEDS ORDERED: NovoLOG Insulin Flexpen SUBQ SCH (11:30)
--- NOTE | 2020-06-03 12:09 | Diagnostic Imaging Report ---
Indication: Cough Technique: One view of the chest Comparison: 06/01/2020 Findings: Lungs and pleural spaces are clear. Tortuous calcified ectatic aorta. Upper mediastinum is unremarkable. Findings are unchanged Impression: No acute process
--- NOTE | 2020-06-03 12:37 | Internal Med Progress Note ---
Subjective Date of Service: Jun 03, 2020 Physician Name Tello Cobb Attending Physician Cirilo Rome MD Current Medications Medications (Trade) Dose Ordered Sig/Debi Route PRN Reason Start Time Stop Time Status Last Admin Dose Admin Acetaminophen (Tylenol) 650 mg Q6H PRN GT Mild Pain (Pain Scale 1-3) 06/02/20 03:15 07/02/20 03:14 Amantadine HCl (Symmetrel) 100 mg TWICE A DAY GT 06/02/20 09:00 07/02/20 08:59 06/03/20 08:54 Aspirin (ASA) 81 mg DAILY GT 06/02/20 09:00 07/17/20 08:59 06/03/20 08:54 Dextrose 1,000 ml @ 75 mls/hr [id number] IV 06/03/20 09:45 07/03/20 09:44 06/03/20 09:45 Dextrose (Dextrose 50%) 25 ml Q30M PRN IV Hypoglycemia 06/02/20 02:45 08/31/20 02:44 Dextrose (Dextrose 50%) 50 ml Q30M PRN IV Hypoglycemia 06/02/20 02:45 08/31/20 02:44 Famotidine (Pepcid) 20 mg BID GT 06/03/20 18:00 09/01/20 17:59 Heparin Sodium (Porcine) (Heparin 5000 units/ml) 5,000 units EVERY 12 HOURS SUBQ 06/02/20 09:00 07/17/20 08:59 06/03/20 08:57 Insulin Aspart (NovoLOG) BEFORE MEALS AND HS SUBQ 06/02/20 06:30 08/31/20 06:29 06/03/20 12:32 Insulin Detemir (Levemir) 10 units BEFORE BREAKFAST SUBQ 06/02/20 06:30 08/31/20 06:29 06/02/20 05:51 Meropenem 1 gm/ Sodium Chloride 55 ml @ 110 mls/hr Q12HR IVPB 06/03/20 09:00 06/09/20 23:59 06/03/20 08:55 Metronidazole 100 ml @ 100 mls/hr Q8H IVPB 06/02/20 08:00 06/09/20 07:59 06/03/20 08:52 Pravastatin Sodium (Pravachol) 20 mg BEDTIME GT 06/02/20 21:00 07/02/20 20:59 06/02/20 23:18 Sennosides (Senokot) 8.6 mg DAILY GT 06/02/20 09:00 07/02/20 08:59 06/03/20 08:54 Allergies: Coded Allergies: No Known Allergies (Unverified , 08/27/19) ROS Limited/Unobtainable: Yes Subjective 79 YO M admitted with hyperglycemia and hypernatremia. Now UTI. Cover for Int Med-Dr Rome Step down unit Objective Last Vital Signs Date Time Temp Pulse Resp B/P (MAP) Pulse Ox O2 Delivery O2 Flow Rate FiO2 06/03/20 08:54 90 105/66 06/03/20 08:00 98.2 17 98 06/03/20 04:00 Room Air 06/01/20 22:30 3.0 Laboratory Tests Test 06/02/20 17:11 06/02/20 23:09 06/03/20 01:00 06/03/20 03:33 POC Whole Blood Glucose 154 MG/DL (74-106) H 122 MG/DL (74-106) H Urine Color Pale yellow Urine Appearance Slightly cloudy Urine pH 7 (4.5-8.0) Urine Specific [place] 1.005 (1.005-1.035) Urine Protein 2+ (NEGATIVE) H Urine Glucose (UA) Negative (NEGATIVE) Urine Ketones Negative (NEGATIVE) Urine Blood 3+ (NEGATIVE) H Urine Nitrite Negative (NEGATIVE) Urine Bilirubin Negative (NEGATIVE) Urine Urobilinogen Normal MG/DL (0.0-1.0) Urine Leukocyte Esterase 3+ (NEGATIVE) H Urine RBC 10-15 /HPF (0 - 0) H Urine WBC 40-60 /HPF (0 - 0) H Urine Squamous Epithelial Cells None /LPF (NONE/OCC) Urine Bacteria Few /HPF (NONE) Urine Eosinophils None seen (NONE SEEN) Urine Random Creatinine Pending Urine Random Microalbumin Pending Urine Random Sodium 86 mmol/L (20-110) Urine Microalbumin/Creatinine Ratio Pending White Blood Count 11.9 K/UL (4.8-10.8) H Red Blood Count 3.90 M/UL (4.70-6.10) L Hemoglobin 11.9 G/DL (14.2-18.0) L Hematocrit 39.2 % (42.0-52.0) L Mean Corpuscular Volume 100 FL (80-99) H Mean Corpuscular Hemoglobin 30.4 PG (27.0-31.0) Mean Corpuscular Hemoglobin Concent 30.3 G/DL (32.0-36.0) L Red Cell Distribution Width 13.9 % (11.6-14.8) Platelet Count 543 K/UL (150-450) H Mean Platelet Volume 7.1 FL (6.5-10.1) Neutrophils (%) (Auto) 72.9 % (45.0-75.0) Lymphocytes (%) (Auto) 21.3 % (20.0-45.0) Monocytes (%) (Auto) 4.8 % (1.0-10.0) Eosinophils (%) (Auto) 0.7 % (0.0-3.0) Basophils (%) (Auto) 0.4 % (0.0-2.0) Erythrocyte Sedimentation Rate 30 MM/HR (0-20) H Sodium Level 167 MMOL/L (136-145) *H Potassium Level 3.4 MMOL/L (3.5-5.1) L Chloride Level 126 MMOL/L (98-107) H Carbon Dioxide Level 30 MMOL/L (21-32) Anion Gap 12 mmol/L (5-15) Blood Urea Nitrogen 30 mg/dL (7-18) H Creatinine 1.2 MG/DL (0.55-1.30) Estimat Glomerular Filtration Rate > 60 mL/min (>60) Glucose Level 131 MG/DL (74-106) #H Calcium Level 10.0 MG/DL (8.5-10.1) Phosphorus Level 2.9 MG/DL (2.5-4.9) Magnesium Level 2.1 MG/DL (1.8-2.4) Total Bilirubin 0.4 MG/DL (0.2-1.0) Aspartate Amino Transf (AST/SGOT) 16 U/L (15-37) Alanine Aminotransferase (ALT/SGPT) 15 U/L (12-78) Alkaline Phosphatase 191 U/L (46-116) H C-Reactive Protein, Quantitative 28.0 mg/dL (0.00-0.90) H Total Protein 8.9 G/DL (6.4-8.2) H Albumin 2.1 G/DL (3.4-5.0) L Globulin 6.8 g/dL Albumin/Globulin Ratio 0.3 (1.0-2.7) L Test 06/03/20 12:29 POC Whole Blood Glucose 171 MG/DL (74-106) H Microbiology Date/Time Source Procedure Growth Status 06/01/20 22:45 Blood Blood Culture - Preliminary NO GROWTH AFTER 24 HOURS Resulted 06/01/20 22:30 Blood Blood Culture - Preliminary NO GROWTH AFTER 24 HOURS Resulted 06/01/20 23:06 Nasopharynx SARS-CoV-2 RdRp Gene Assay - Final Complete 06/01/20 22:38 Urine,Clean Catch Urine Culture - Preliminary Gram Negative Martín Resulted 06/01/20 23:35 Rectum Received Intake and Output 06/02/20 06/03/20 19:00 07:00 Intake Total 235 ml 1750 ml Output Total 1400 ml Balance -1165 ml 1750 ml IV Total 75 ml 850 ml Tube Feeding 60 ml Other 100 ml 900 ml Output Urine Total 1400 ml # Voids 1 Objective PHYSICAL EXAMINATION: GENERAL: The patient is a well-developed, well-nourished, thin-appearing, male, in no apparent distress. HEENT: Eyes, pupils equal and responsive to light and accommodation. Extraocular movements are intact. NECK: Supple without lymphadenopathy. CHEST: Lungs are clear to auscultation bilaterally without wheezes or rales. CARDIOVASCULAR: Slightly tachycardic, regular rhythm. S1, S2 are normal without murmurs, rubs, or gallops. ABDOMEN: Soft, nontender, and nondistended. Positive bowel sounds. No evidence of hepatosplenomegaly. Currently, no rebound or guarding noted. EXTREMITIES: Negative for clubbing, cyanosis, or edema. RECTAL: Not performed. GENITAL: Not performed. NEUROLOGIC: Cranial nerves II through XII are grossly intact without focal deficits. Assessment/Plan Assessment/Plan ASSESSMENT: This is a 79-year-old male with: 1. Hyperglycemia. 2. Hypernatremia. 3. Urinary tract infection. 4. Diabetes type 2. 5. Hypertension. 6. Hypercholesterolemia. 7. Dysphagia. 8. Parkinson disease. 9. Ulcerative proctitis. 10. Protein-calorie malnutrition. 11. History of sacral decubitus ulcer stage IV. 12. Benign prostatic hypertrophy. 13. Gastroesophageal reflux disease. 14. Metabolic encephalopathy. 15. History of left hip fracture. TREATMENT: 1. Hyperglycemia/diabetes. The patient has been placed on a protocol using NovoLog sliding scale. The patient's blood sugars have been running in 300s. Hyperglycemia may be secondary to urinary tract infection. 2. Urinary tract infection. Urine culture =gram neg martín. The patient has been started empirically on intravenous meropenem. Await urine culture results.ID=Dr Oliva 3. Hypertension. Continue amlodipine as above. 4. Hypercholesterolemia. Continue atorvastatin as above. 5. Dysphagia. The patient is status post PEG placement. 6. Parkinson disease. Continue amantadine as above. 7. Ulcerative proctitis. 8. Protein-calorie malnutrition. 9. Sacral decubitus ulcer stage IV. 10. Benign prostatic hypertrophy. Continue tamsulosin as above. 11. Gastroesophageal reflux disease. 12. Metabolic encephalopathy. 13. History of left hip fracture. Tello Cobb MD Jun 03, 2020 12:37
--- NOTE | 2020-06-03 12:56 | Pulmonology Progress Note ---
Subjective ROS Limited/Unobtainable: No Constitutional: Reports: no symptoms HEENT: Repors: no symptoms Respiratory: Reports: no symptoms Allergies: Coded Allergies: No Known Allergies (Unverified , 08/27/19) Objective Last 24 Hour Vital Signs Date Time Temp Pulse Resp B/P (MAP) Pulse Ox O2 Delivery O2 Flow Rate FiO2 06/03/20 12:00 98.2 101 21 139/73 (95) 100 101 06/03/20 08:54 90 105/66 06/03/20 08:00 98.2 98 17 105/66 (79) 98 98 06/03/20 07:54 97 06/03/20 04:00 98.2 107 18 111/63 (79) 98 06/03/20 04:00 Room Air 06/03/20 03:36 110 06/03/20 00:00 120 06/03/20 00:00 Room Air 06/03/20 00:00 100.3 118 20 120/66 (84) 98 06/02/20 20:00 100.0 116 20 110/69 (83) 98 06/02/20 20:00 Room Air 06/02/20 19:26 113 06/02/20 16:00 Room Air 06/02/20 16:00 105 06/02/20 16:00 98.2 120 20 124/66 (85) 98 Intake and Output 06/02/20 06/03/20 19:00 07:00 Intake Total 235 ml 1750 ml Output Total 1400 ml Balance -1165 ml 1750 ml IV Total 75 ml 850 ml Tube Feeding 60 ml Other 100 ml 900 ml Output Urine Total 1400 ml # Voids 1 General Appearance: cachetic HEENT: normocephalic, atraumatic Respiratory: chest wall non-tender, normal breath sounds Cardiovascular: normal peripheral pulses, normal rate Abdomen: soft, non tender, no organomegaly, no scars Microbiology Date/Time Source Procedure Growth Status 06/01/20 22:45 Blood Blood Culture - Preliminary NO GROWTH AFTER 24 HOURS Resulted 06/01/20 22:30 Blood Blood Culture - Preliminary NO GROWTH AFTER 24 HOURS Resulted 06/01/20 23:06 Nasopharynx SARS-CoV-2 RdRp Gene Assay - Final Complete 06/01/20 22:38 Urine,Clean Catch Urine Culture - Preliminary Gram Negative Martín Resulted 06/01/20 23:35 Rectum Received Laboratory Tests 06/02/20 17:11: POC Whole Blood Glucose 154H 06/02/20 23:09: POC Whole Blood Glucose 122H 06/03/20 01:00: Urine Color Pale yellow, Urine Appearance Slightly cloudy, Urine pH 7, Urine Specific [place] 1.005, Urine Protein 2+H, Urine Glucose (UA) Negative, Urine Ketones Negative, Urine Blood 3+H, Urine Nitrite Negative, Urine Bilirubin Negative, Urine Urobilinogen Normal, Urine Leukocyte Esterase 3+H, Urine RBC 10- 15H, Urine WBC 40-60H, Urine Squamous Epithelial Cells None, Urine Bacteria Few , Urine Eosinophils None seen, Urine Random Creatinine [Pending], Urine Random Microalbumin [Pending], Urine Random Sodium 86, Urine Microalbumin/Creatinine Ratio [Pending] 06/03/20 03:33: White Blood Count 11.9H, Red Blood Count 3.90L, Hemoglobin 11.9L, Hematocrit 39.2L, Mean Corpuscular Volume 100H, Mean Corpuscular Hemoglobin 30.4, Mean Corpuscular Hemoglobin Concent 30.3L, Red Cell Distribution Width 13.9, Platelet Count 543H, Mean Platelet Volume 7.1, Neutrophils (%) (Auto) 72.9, Lymphocytes (%) (Auto) 21.3, Monocytes (%) (Auto) 4.8, Eosinophils (%) (Auto) 0.7, Basophils (%) (Auto) 0.4, Erythrocyte Sedimentation Rate 30H, Sodium Level 167*H, Potassium Level 3.4L, Chloride Level 126H, Carbon Dioxide Level 30, Anion Gap 12, Blood Urea Nitrogen 30H, Creatinine 1.2, Estimat Glomerular Filtration Rate > 60, Glucose Level 131#H, Calcium Level 10.0, Phosphorus Level 2.9, Magnesium Level 2.1, Total Bilirubin 0.4, Aspartate Amino Transf (AST/SGOT ) 16, Alanine Aminotransferase (ALT/SGPT) 15, Alkaline Phosphatase 191H, C- Reactive Protein, Quantitative 28.0H, Total Protein 8.9H, Albumin 2.1L, Globulin 6.8, Albumin/Globulin Ratio 0.3L 06/03/20 12:29: POC Whole Blood Glucose 171H Current Medications Medications (Trade) Dose Ordered Sig/Debi Route PRN Reason Start Time Stop Time Status Last Admin Dose Admin Acetaminophen (Tylenol) 650 mg Q6H PRN GT Mild Pain (Pain Scale 1-3) 06/02/20 03:15 07/02/20 03:14 Amantadine HCl (Symmetrel) 100 mg TWICE A DAY GT 06/02/20 09:00 07/02/20 08:59 06/03/20 08:54 Aspirin (ASA) 81 mg DAILY GT 06/02/20 09:00 07/17/20 08:59 06/03/20 08:54 Dextrose 1,000 ml @ 150 mls/hr Q6H40M IV 06/04/20 09:45 07/03/20 09:44 UNV Dextrose (Dextrose 50%) 25 ml Q30M PRN IV Hypoglycemia 06/02/20 02:45 08/31/20 02:44 Dextrose (Dextrose 50%) 50 ml Q30M PRN IV Hypoglycemia 06/02/20 02:45 08/31/20 02:44 Famotidine (Pepcid) 20 mg BID GT 06/03/20 18:00 09/01/20 17:59 Heparin Sodium (Porcine) (Heparin 5000 units/ml) 5,000 units EVERY 12 HOURS SUBQ 06/02/20 09:00 07/17/20 08:59 06/03/20 08:57 Insulin Aspart (NovoLOG) BEFORE MEALS AND HS SUBQ 06/02/20 06:30 08/31/20 06:29 06/03/20 12:32 Insulin Detemir (Levemir) 10 units BEFORE BREAKFAST SUBQ 06/02/20 06:30 08/31/20 06:29 06/02/20 05:51 Meropenem 1 gm/ Sodium Chloride 55 ml @ 110 mls/hr Q12HR IVPB 06/03/20 09:00 06/09/20 23:59 06/03/20 08:55 Metronidazole 100 ml @ 100 mls/hr Q8H IVPB 06/02/20 08:00 06/09/20 07:59 06/03/20 08:52 Pravastatin Sodium (Pravachol) 20 mg BEDTIME GT 06/02/20 21:00 07/02/20 20:59 06/02/20 23:18 Sennosides (Senokot) 8.6 mg DAILY GT 06/02/20 09:00 07/02/20 08:59 06/03/20 08:54 Assessment/Plan Problems: (1) Sepsis (2) Diabetes mellitus (3) Feeding by G-tube (4) Severe protein-calorie malnutrition (5) Parkinson disease (6) History of hypertension (7) History of CVA (cerebrovascular accident) Assessment/Plan serum Na is higher than yesterday despite tap water, might be a lab error, will review the labs stat [place] culture iv abx iv fluids renal studies urine electrolytes. sliding scale hold feeding for now Latanya Mckeon MD Jun 03, 2020 12:56
--- NOTE | 2020-06-03 14:00 | NUR ---
NURSE NOTES: Continue 100c tap water flush for the next 24 hours to reduce sodium per MD.
[2020-06-03 14:49] LABS: BASOPHILS % (AUTO) 0.7 % (0.0-2.0); EOSINOPHILS % (AUTO) 0.5 % (0.0-3.0); HEMATOCRIT 37.3 % (42.0-52.0); HEMOGLOBIN 11.3 G/DL (14.2-18.0); LYMPHOCYTES % (AUTO) 21.8 % (20.0-45.0); MEAN CORPUSCULAR VOLUME 101 FL (80-99); MONOCYTES % (AUTO) 4.2 % (1.0-10.0); NEUTROPHILS % (AUTO) 72.8 % (45.0-75.0); PLATELET COUNT 534 K/UL (150-450); RED CELL DISTRIBUTION WIDTH 13.9 % (11.6-14.8); WHITE BLOOD COUNT 9.4 K/UL (4.8-10.8)
[2020-06-03 15:07] LABS: ANION GAP 10 mmol/L (5-15); BLOOD UREA NITROGEN 29 mg/dL (7-18); CALCIUM 9.3 MG/DL (8.5-10.1); CARBON DIOXIDE 31 MMOL/L (21-32); CHLORIDE 121 MMOL/L (98-107); CREATININE 1.1 MG/DL (0.55-1.30)
[2020-06-03 15:24] LABS: SODIUM 162 MMOL/L (136-145)
--- NOTE | 2020-06-03 16:04 | NUR ---
CASE MANAGEMENT: REVIEW 06/03/2020 SI;SEPSIS. VS; 98.2 HR 101 RR 21 B/P 139/73 SATS 100% ON RA LABS: NA 163 CL 121 BUN 29 GLU 287 IS:DEXTROSE IV @ 150 ML/HR SYMMETREL GT BID PRAVACHOL GT QHS LEVEMIR SUBQ AC ASA GT QD MEROPENEM IV Q8H FLAGYL IV Q12H SDU
--- NOTE | 2020-06-03 19:20 | NUR ---
NURSE HAND-OFF REPORT: Important Events on Shift: Pt is NPO with 100c tap water flush Patient Status: Full code stable Diet: NPO Pending Orders: N/A Pending Results/Labs:BNP Pending MD notification:When can patient start g-tube feeding? Latest Vital Signs: Temperature 98.0 , Pulse 90 , B/P 109 /77 , Respiratory Rate 18 , O2 SAT 99 , Room Air, O2 Flow Rate 3.0 . Vital Sign Comment: Stable EKG Rhythm: Sinus Rhythm Rhythm change?: N MD Notified?: - MD Response: Latest Lane Fall Score: 70 Fall Risk: High Risk Safety Measures: Call light Within Reach, Bed Alarm Zone 3, Side Rails Side Rails x3, Bed position Low and Locked. Fall Precautions: Yellow Socks Yellow Gown Door Sign Patient Fall Education Report given to JOHNNY Adame
--- NOTE | 2020-06-03 19:50 | NUR ---
NURSE NOTES: Received pt from JOHNNY Cain. Pt asleep but easily aroused. Bed in lowest position. IV site intact and running D5w. Gtube intact. Call light within reach. Will continue to monitor.
--- NOTE | 2020-06-03 20:30 | NUR ---
NURSE NOTES: Inserted water in Gtube feeding bag running at 100 cc/hr. Pt tolerating well. Will continue to monitor.
[2020-06-04 04:00] VITALS: BP 93/61
[2020-06-04] MEDS: Levemir Flexpen SUBQ SCH ×3 (05:39→20:40)
[2020-06-04] MEDS: NovoLOG Insulin Flexpen SUBQ SCH ×4 (05:40→20:40)
--- NOTE | 2020-06-04 07:20 | NUR ---
NURSE NOTES: Received bedside report from Wendi Alfonso RN. Pt. in bed, awake, a/o x 2. No sign of distress. On R.A. HOB elevated at all times. On GTF but on hold right now due to Na+ at 162 and with order to flush with 100cc/hr flushing H2O. Condom cath in placed draining yellow colored urine output. IV at left FA #20g. in placed patent/intact running D5W at 150cc/hr. Bed in low position, locked. Bed alarm on. Call light within reach. Will cont. to monitor.
--- NOTE | 2020-06-04 07:24 | NUR ---
NURSE HAND-OFF REPORT: Important Events on Shift: transfer to tele order and 100 cc/hr gtube flush Patient Status: stable Diet: feeding held Pending Orders: n Pending Results/Labs:n Pending MD notification:n Latest Vital Signs: Temperature 97.2 , Pulse 81 , B/P 93 /61 , Respiratory Rate 18 , O2 SAT 100 , Room Air, O2 Flow Rate 3.0 . Vital Sign Comment: stable EKG Rhythm: Sinus Rhythm Rhythm change?: N MD Notified?: - MD Response: Latest Lane Fall Score: 70 Fall Risk: High Risk Safety Measures: Call light Within Reach, Bed Alarm Zone 1, Side Rails Side Rails x3, Bed position Low and Locked. Fall Precautions: y Yellow Socks y Yellow Gown y Door Sign y Patient Fall Education y Report given to JOHNNY Villalta
[2020-06-04 07:52] LABS: BASOPHILS % (AUTO) 0.5 % (0.0-2.0); EOSINOPHILS % (AUTO) 0.8 % (0.0-3.0); HEMATOCRIT 35.7 % (42.0-52.0); HEMOGLOBIN 11.1 G/DL (14.2-18.0); LYMPHOCYTES % (AUTO) 23.7 % (20.0-45.0); MEAN CORPUSCULAR VOLUME 100 FL (80-99); MONOCYTES % (AUTO) 3.5 % (1.0-10.0); NEUTROPHILS % (AUTO) 71.5 % (45.0-75.0); PLATELET COUNT 500 K/UL (150-450); RED BLOOD COUNT 3.57 M/UL (4.70-6.10); RED CELL DISTRIBUTION WIDTH 14.4 % (11.6-14.8)
[2020-06-04 07:53] LABS: CREATINE KINASE 64 U/L (26-308)
[2020-06-04 08:00] VITALS: BP 125/68
[2020-06-04 08:05] LABS: ALANINE AMINOTRANSFERASE 14 U/L (12-78); ALBUMIN 2.1 G/DL (3.4-5.0); ALBUMIN/GLOBULIN RATIO 0.3 (1.0-2.7); ALKALINE PHOSPHATASE 147 U/L (46-116); ANION GAP 12 mmol/L (5-15); ASPARTATE AMINO TRANSFERASE 15 U/L (15-37); BILIRUBIN,TOTAL 0.5 MG/DL (0.2-1.0); BLOOD UREA NITROGEN 20 mg/dL (7-18); CALCIUM 9.4 MG/DL (8.5-10.1); CARBON DIOXIDE 28 MMOL/L (21-32); CHLORIDE 110 MMOL/L (98-107); CHOLESTEROL 88 MG/DL (< 200); CREATININE 1.1 MG/DL (0.55-1.30); GAMMA GLUTAMYL TRANSPEPTIDASE 115 U/L (5-85); HDL CHOLESTEROL 41 MG/DL (40-60); PHOSPHORUS 2.5 MG/DL (2.5-4.9); SODIUM 150 MMOL/L (136-145); TRIGLYCERIDES 90 MG/DL (30-150)
[2020-06-04] MEDS ORDERED: Tubing IV Secondary IV ONE (08:30)
[2020-06-04] MEDS ORDERED: 1/2 NS 1000ml IV ONE (08:30)
[2020-06-04] MEDS: Amantadine 100mg cap GT SCH ×2 (08:57→17:36)
[2020-06-04] MEDS: Sennosides 8.6mg tab GT SCH (08:57)
[2020-06-04] MEDS: Aspirin Baby 81mg GT SCH (09:03)
[2020-06-04] MEDS: Meropenem 1gm in NS 55ml IVPB SCH ×2 (09:05→20:31)
[2020-06-04] MEDS: Heparin 5000 units/ml inj SUBQ SCH ×2 (09:05→20:39)
--- NOTE | 2020-06-04 09:42 | General Progress Note ---
Assessment/Plan Problem List: (1) Hypernatremia ICD Codes: E87.0 - Hyperosmolality and hypernatremia SNOMED: 426003050 (2) Feeding by G-tube ICD Codes: Z93.1 - Gastrostomy status SNOMED: 077768611, 647827457, 876557357 (3) Diabetes mellitus ICD Codes: E11.9 - Type 2 diabetes mellitus without complications SNOMED: 91867957 (4) History of CVA (cerebrovascular accident) ICD Codes: Z86.73 - Personal history of transient ischemic attack (TIA), and cerebral infarction without residual deficits SNOMED: 507739771 (5) Parkinson disease ICD Codes: G20 - Parkinson's disease SNOMED: 07490046 Assessment/Plan: increase Levemir to 15 units bid change Novolog sliding scale to high dose every 4 hours continue to hold Metformin due to lactic acidosis on presentation Subjective ROS Limited/Unobtainable: Yes Allergies: Coded Allergies: No Known Allergies (Unverified , 08/27/19) Subjective events noted - interval notes reviewed glucose values high due to high rate D5W at 150 cc/hour TF is on hold Item Value Date Time Bedside Blood Glucose 258 mg/dl H 06/04/20 0540 Bedside Blood Glucose 245 mg/dl H 06/03/20 2106 Bedside Blood Glucose 292 mg/dl H 06/03/20 1622 Bedside Blood Glucose 171 mg/dl H 06/03/20 1232 Objective Last 24 Hour Vital Signs Date Time Temp Pulse Resp B/P (MAP) Pulse Ox O2 Delivery O2 Flow Rate FiO2 06/04/20 08:00 81 06/04/20 04:00 Room Air 06/04/20 04:00 97.2 86 18 93/61 (72) 100 06/04/20 04:00 81 06/04/20 00:00 Room Air 06/04/20 00:00 100 06/03/20 23:22 97.7 93 18 110/68 (82) 100 06/03/20 20:00 97.7 92 18 102/59 (73) 98 06/03/20 20:00 91 06/03/20 20:00 Room Air 06/03/20 16:00 90 06/03/20 16:00 98.0 97 18 109/77 (88) 99 97 06/03/20 16:00 Room Air 06/03/20 12:00 98.2 101 21 139/73 (95) 100 101 06/03/20 12:00 Room Air 06/03/20 11:29 93 Intake and Output 06/03/20 06/04/20 19:00 07:00 Intake Total 1380 ml 1000 ml Output Total 1100 ml 1400 ml Balance 280 ml -400 ml IV Total 280 ml Other 1100 ml 1000 ml Output Urine Total 1100 ml 1400 ml # Voids 1 # Bowel Movements 1 Laboratory Tests 06/03/20 12:29: POC Whole Blood Glucose 171H 06/03/20 14:33: White Blood Count 9.4, Red Blood Count 3.70L, Hemoglobin 11.3L, Hematocrit 37.3L , Mean Corpuscular Volume 101H, Mean Corpuscular Hemoglobin 30.6, Mean Corpuscular Hemoglobin Concent 30.4L, Red Cell Distribution Width 13.9, Platelet Count 534H, Mean Platelet Volume 6.6, Neutrophils (%) (Auto) 72.8, Lymphocytes (%) (Auto) 21.8, Monocytes (%) (Auto) 4.2, Eosinophils (%) (Auto) 0.5, Basophils (%) (Auto) 0.7, Sodium Level 162*H, Potassium Level 4.0, Chloride Level 121H, Carbon Dioxide Level 31, Anion Gap 10, Blood Urea Nitrogen 29H, Creatinine 1.1, Estimat Glomerular Filtration Rate > 60, Glucose Level 287# H, Calcium Level 9.3 06/03/20 16:19: POC Whole Blood Glucose [Pending] 06/03/20 20:56: POC Whole Blood Glucose 245H 06/04/20 05:36: POC Whole Blood Glucose [Pending] 06/04/20 06:20: White Blood Count 7.0, Red Blood Count 3.57L, Hemoglobin 11.1L, Hematocrit 35.7L , Mean Corpuscular Volume 100H, Mean Corpuscular Hemoglobin 31.0, Mean Corpuscular Hemoglobin Concent 31.0L, Red Cell Distribution Width 14.4, Platelet Count 500H, Mean Platelet Volume 7.1, Neutrophils (%) (Auto) 71.5, Lymphocytes (%) (Auto) 23.7, Monocytes (%) (Auto) 3.5, Eosinophils (%) (Auto) 0.8, Basophils (%) (Auto) 0.5, Erythrocyte Sedimentation Rate 117H, Sodium Level 150#H, Potassium Level 3.0L, Chloride Level 110H, Carbon Dioxide Level 28 , Anion Gap 12, Blood Urea Nitrogen 20H, Creatinine 1.1, Estimat Glomerular Filtration Rate > 60, Glucose Level 300H, Hemoglobin A1c 8.0H, Uric Acid 6.5, Calcium Level 9.4, Phosphorus Level 2.5, Magnesium Level 1.7L, Total Bilirubin 0.5, Gamma Glutamyl Transpeptidase 115H, Aspartate Amino Transf (AST/SGOT) 15, Alanine Aminotransferase (ALT/SGPT) 14, Alkaline Phosphatase 147H, Total Creatine Kinase 64, C-Reactive Protein, Quantitative 20.9H, Pro-B-Type Natriuretic Peptide 114, Total Protein 8.3H, Albumin 2.1L, Globulin 6.2, Albumin /Globulin Ratio 0.3L, Triglycerides Level 90, Cholesterol Level 88, LDL Cholesterol 36, HDL Cholesterol 41, Cholesterol/HDL Ratio 2.1L, Thyroid Stimulating Hormone (TSH) 4.250H Height (Feet): 5 Height (Inches): 5.00 Weight (Pounds): 119 General Appearance: no apparent distress Neck: normal alignment Cardiovascular: regular rhythm Respiratory/Chest: decreased breath sounds Abdomen: normal bowel sounds, other - PEG Objective Current Medications Medications (Trade) Dose Ordered Sig/Debi Route PRN Reason Start Time Stop Time Status Last Admin Dose Admin Acetaminophen (Tylenol) 650 mg Q6H PRN GT Mild Pain (Pain Scale 1-3) 06/02/20 03:15 07/02/20 03:14 Amantadine HCl (Symmetrel) 100 mg TWICE A DAY GT 06/02/20 09:00 07/02/20 08:59 06/04/20 08:57 Aspirin (ASA) 81 mg DAILY GT 06/02/20 09:00 07/17/20 08:59 06/04/20 09:03 Dextrose 1,000 ml @ 150 mls/hr Q6H40M IV 06/03/20 13:00 07/03/20 12:59 06/04/20 09:03 Dextrose (Dextrose 50%) 25 ml Q30M PRN IV Hypoglycemia 06/02/20 02:45 08/31/20 02:44 Dextrose (Dextrose 50%) 50 ml Q30M PRN IV Hypoglycemia 06/02/20 02:45 08/31/20 02:44 Famotidine (Pepcid) 20 mg BID GT 06/03/20 18:00 09/01/20 17:59 06/04/20 08:57 Heparin Sodium (Porcine) (Heparin 5000 units/ml) 5,000 units EVERY 12 HOURS SUBQ 06/02/20 09:00 07/17/20 08:59 06/04/20 09:05 Insulin Aspart (NovoLOG) BEFORE MEALS AND HS SUBQ 06/02/20 06:30 08/31/20 06:29 06/04/20 05:40 Insulin Detemir (Levemir) 10 units BEFORE BREAKFAST SUBQ 06/02/20 06:30 08/31/20 06:29 06/04/20 05:39 Magnesium Sulfate 100 ml @ 100 mls/hr Q1H IVPB 06/04/20 08:30 06/04/20 10:29 06/04/20 08:57 Meropenem 1 gm/ Sodium Chloride 55 ml @ 110 mls/hr Q12HR IVPB 06/03/20 09:00 06/09/20 23:59 06/04/20 09:05 Metronidazole 100 ml @ 100 mls/hr Q8H IVPB 06/02/20 08:00 06/09/20 07:59 06/04/20 08:56 Potassium Chloride 100 ml @ 100 mls/hr Q1HR IVPB 06/04/20 09:00 06/04/20 12:59 06/04/20 09:03 Pravastatin Sodium (Pravachol) 20 mg BEDTIME GT 06/02/20 21:00 07/02/20 20:59 06/03/20 21:04 Sennosides (Senokot) 8.6 mg DAILY GT 06/02/20 09:00 07/02/20 08:59 06/04/20 08:57 Gregory Pastrana MD Jun 04, 2020 09:42
[2020-06-04 12:00] VITALS: BP 117/62
--- NOTE | 2020-06-04 13:25 | Nephrology Progress Note ---
Assessment/Plan Problem List: (1) Hypernatremia (2) Sepsis (3) History of CVA (cerebrovascular accident) (4) Parkinson disease (5) Feeding by G-tube (6) Dehydration Assessment KELLY, resolving, serum creatinine of 1.9 now down to 1.2 Hypernatremia, dehydration, free water deficit Sepsis Diabetes mellitus [id number] GT feeding Severe protein calorie malnutrition History of CVA History of hypertension Parkinson's disease Plan June 04: Potassium and magnesium supplement IV given, stable from renal standpoint of view. IV fluid D5W Monitor electrolytes Monitor renal parameters Hold blood pressure medication since blood pressure low Per orders, per consultants Subjective ROS Limited/Unobtainable: No Constitutional: Reports: malaise, weakness Objective Objective Last 24 Hour Vital Signs Date Time Temp Pulse Resp B/P (MAP) Pulse Ox O2 Delivery O2 Flow Rate FiO2 06/04/20 12:00 Room Air 06/04/20 12:00 97.9 86 20 117/62 (80) 95 06/04/20 11:39 88 06/04/20 08:00 97.3 62 17 125/68 (87) 94 06/04/20 08:00 81 06/04/20 08:00 Room Air 06/04/20 04:00 Room Air 06/04/20 04:00 97.2 86 18 93/61 (72) 100 06/04/20 04:00 81 06/04/20 00:00 Room Air 06/04/20 00:00 100 06/03/20 23:22 97.7 93 18 110/68 (82) 100 06/03/20 20:00 97.7 92 18 102/59 (73) 98 06/03/20 20:00 91 06/03/20 20:00 Room Air 06/03/20 16:00 90 06/03/20 16:00 98.0 97 18 109/77 (88) 99 97 06/03/20 16:00 Room Air Intake and Output 06/03/20 06/04/20 19:00 07:00 Intake Total 1380 ml 1000 ml Output Total 1100 ml 1400 ml Balance 280 ml -400 ml IV Total 280 ml Other 1100 ml 1000 ml Output Urine Total 1100 ml 1400 ml # Voids 1 # Bowel Movements 1 Laboratory Tests 06/03/20 14:33: White Blood Count 9.4, Red Blood Count 3.70L, Hemoglobin 11.3L, Hematocrit 37.3L , Mean Corpuscular Volume 101H, Mean Corpuscular Hemoglobin 30.6, Mean Corpuscular Hemoglobin Concent 30.4L, Red Cell Distribution Width 13.9, Platelet Count 534H, Mean Platelet Volume 6.6, Neutrophils (%) (Auto) 72.8, Lymphocytes (%) (Auto) 21.8, Monocytes (%) (Auto) 4.2, Eosinophils (%) (Auto) 0.5, Basophils (%) (Auto) 0.7, Sodium Level 162*H, Potassium Level 4.0, Chloride Level 121H, Carbon Dioxide Level 31, Anion Gap 10, Blood Urea Nitrogen 29H, Creatinine 1.1, Estimat Glomerular Filtration Rate > 60, Glucose Level 287# H, Calcium Level 9.3 06/03/20 16:19: POC Whole Blood Glucose [Pending] 06/03/20 20:56: POC Whole Blood Glucose 245H 06/04/20 05:36: POC Whole Blood Glucose [Pending] 06/04/20 06:20: White Blood Count 7.0, Red Blood Count 3.57L, Hemoglobin 11.1L, Hematocrit 35.7L , Mean Corpuscular Volume 100H, Mean Corpuscular Hemoglobin 31.0, Mean Corpuscular Hemoglobin Concent 31.0L, Red Cell Distribution Width 14.4, Platelet Count 500H, Mean Platelet Volume 7.1, Neutrophils (%) (Auto) 71.5, Lymphocytes (%) (Auto) 23.7, Monocytes (%) (Auto) 3.5, Eosinophils (%) (Auto) 0.8, Basophils (%) (Auto) 0.5, Erythrocyte Sedimentation Rate 117H, Sodium Level 150#H, Potassium Level 3.0L, Chloride Level 110H, Carbon Dioxide Level 28 , Anion Gap 12, Blood Urea Nitrogen 20H, Creatinine 1.1, Estimat Glomerular Filtration Rate > 60, Glucose Level 300H, Hemoglobin A1c 8.0H, Uric Acid 6.5, Calcium Level 9.4, Phosphorus Level 2.5, Magnesium Level 1.7L, Total Bilirubin 0.5, Gamma Glutamyl Transpeptidase 115H, Aspartate Amino Transf (AST/SGOT) 15, Alanine Aminotransferase (ALT/SGPT) 14, Alkaline Phosphatase 147H, Total Creatine Kinase 64, C-Reactive Protein, Quantitative 20.9H, Pro-B-Type Natriuretic Peptide 114, Total Protein 8.3H, Albumin 2.1L, Globulin 6.2, Albumin /Globulin Ratio 0.3L, Triglycerides Level 90, Cholesterol Level 88, LDL Cholesterol 36, HDL Cholesterol 41, Cholesterol/HDL Ratio 2.1L, Thyroid Stimulating Hormone (TSH) 4.250H Height (Feet): 5 Height (Inches): 5.00 Weight (Pounds): 119 General Appearance: lethargic Cardiovascular: tachycardia - Mid 80s Respiratory/Chest: decreased breath sounds Abdomen: distended Eddie Nelson MD Jun 04, 2020 13:25
--- NOTE | 2020-06-04 14:00 | NUR ---
NURSE NOTES: Hand over care to Nancy TURNER at Tele. Pt. moved to room 221-2 on stable condition.
--- NOTE | 2020-06-04 15:03 | NUR ---
NURSE NOTES: pt has fever notified doctor Wild. he advised to contact doctor Norris, she was notified. I also notified doctor Leo, he ordered urine sample, chest xray, CBC and tylenol 650 q 6hrs,
[2020-06-04 16:00] VITALS: BP 135/70
--- NOTE | 2020-06-04 16:29 | Pulmonology Progress Note ---
Subjective ROS Limited/Unobtainable: No Constitutional: Reports: no symptoms HEENT: Repors: no symptoms Respiratory: Reports: no symptoms Allergies: Coded Allergies: No Known Allergies (Unverified , 08/27/19) Objective Last 24 Hour Vital Signs Date Time Temp Pulse Resp B/P (MAP) Pulse Ox O2 Delivery O2 Flow Rate FiO2 06/04/20 16:13 Room Air 06/04/20 12:00 Room Air 06/04/20 12:00 97.9 86 20 117/62 (80) 95 06/04/20 11:39 88 06/04/20 08:00 97.3 62 17 125/68 (87) 94 06/04/20 08:00 81 06/04/20 08:00 Room Air 06/04/20 04:00 Room Air 06/04/20 04:00 97.2 86 18 93/61 (72) 100 06/04/20 04:00 81 06/04/20 00:00 Room Air 06/04/20 00:00 100 06/03/20 23:22 97.7 93 18 110/68 (82) 100 06/03/20 20:00 97.7 92 18 102/59 (73) 98 06/03/20 20:00 91 06/03/20 20:00 Room Air Intake and Output 06/03/20 06/04/20 19:00 07:00 Intake Total 1380 ml 1150 ml Output Total 1100 ml 1400 ml Balance 280 ml -250 ml IV Total 280 ml 150 ml Other 1100 ml 1000 ml Output Urine Total 1100 ml 1400 ml # Voids 1 # Bowel Movements 1 General Appearance: cachetic HEENT: normocephalic, atraumatic Respiratory: chest wall non-tender, normal breath sounds Cardiovascular: normal peripheral pulses, normal rate Abdomen: soft, non tender, no organomegaly, no scars Skin: no rash Microbiology Date/Time Source Procedure Growth Status 06/01/20 22:45 Blood Blood Culture - Preliminary NO GROWTH AFTER 48 HOURS Resulted 06/01/20 22:30 Blood Blood Culture - Preliminary NO GROWTH AFTER 48 HOURS Resulted 06/01/20 23:35 Nasal Nares MRSA Culture - Final NO METHICILLIN RESISTANT STAPH AUREUS... Complete 06/01/20 23:06 Nasopharynx SARS-CoV-2 RdRp Gene Assay - Final Complete 06/03/20 01:00 Urine,Clean Catch Urine Culture - Preliminary NO GROWTH Resulted 06/01/20 22:38 Urine,Clean Catch Urine Culture - Preliminary Proteus Mirabilis Resulted 06/01/20 23:35 Rectum - Final NO CARBAPENEM-RESISTANT ENTEROBACTERI... Complete 06/01/20 23:35 Rectum VRE Culture - Final NO VANCOMYCIN RESISTANT ENTEROCOCCUS ... Complete Laboratory Tests 06/03/20 20:56: POC Whole Blood Glucose 245H 06/04/20 05:36: POC Whole Blood Glucose [Pending] 06/04/20 06:20: White Blood Count 7.0, Red Blood Count 3.57L, Hemoglobin 11.1L, Hematocrit 35.7L , Mean Corpuscular Volume 100H, Mean Corpuscular Hemoglobin 31.0, Mean Corpuscular Hemoglobin Concent 31.0L, Red Cell Distribution Width 14.4, Platelet Count 500H, Mean Platelet Volume 7.1, Neutrophils (%) (Auto) 71.5, Lymphocytes (%) (Auto) 23.7, Monocytes (%) (Auto) 3.5, Eosinophils (%) (Auto) 0.8, Basophils (%) (Auto) 0.5, Erythrocyte Sedimentation Rate 117H, Sodium Level 150#H, Potassium Level 3.0L, Chloride Level 110H, Carbon Dioxide Level 28 , Anion Gap 12, Blood Urea Nitrogen 20H, Creatinine 1.1, Estimat Glomerular Filtration Rate > 60, Glucose Level 300H, Hemoglobin A1c 8.0H, Uric Acid 6.5, Calcium Level 9.4, Phosphorus Level 2.5, Magnesium Level 1.7L, Total Bilirubin 0.5, Gamma Glutamyl Transpeptidase 115H, Aspartate Amino Transf (AST/SGOT) 15, Alanine Aminotransferase (ALT/SGPT) 14, Alkaline Phosphatase 147H, Total Creatine Kinase 64, C-Reactive Protein, Quantitative 20.9H, Pro-B-Type Natriuretic Peptide 114, Total Protein 8.3H, Albumin 2.1L, Globulin 6.2, Albumin /Globulin Ratio 0.3L, Triglycerides Level 90, Cholesterol Level 88, LDL Cholesterol 36, HDL Cholesterol 41, Cholesterol/HDL Ratio 2.1L, Thyroid Stimulating Hormone (TSH) 4.250H Current Medications Medications (Trade) Dose Ordered Sig/Debi Route PRN Reason Start Time Stop Time Status Last Admin Dose Admin Acetaminophen (Tylenol) 650 mg Q6H PRN GT Mild Pain (Pain Scale 1-3) 06/02/20 03:15 07/02/20 03:14 Amantadine HCl (Symmetrel) 100 mg TWICE A DAY GT 06/02/20 09:00 07/02/20 08:59 06/04/20 08:57 Aspirin (ASA) 81 mg DAILY GT 06/02/20 09:00 07/17/20 08:59 06/04/20 09:03 Dextrose 1,000 ml @ 150 mls/hr Q6H40M IV 06/03/20 13:00 07/03/20 12:59 06/04/20 16:04 Dextrose (Dextrose 50%) 25 ml Q30M PRN IV Hypoglycemia 06/04/20 09:45 09/02/20 09:44 Dextrose (Dextrose 50%) 50 ml Q30M PRN IV Hypoglycemia 06/04/20 09:45 09/02/20 09:44 Famotidine (Pepcid) 20 mg BID GT 06/03/20 18:00 09/01/20 17:59 06/04/20 08:57 Heparin Sodium (Porcine) (Heparin 5000 units/ml) 5,000 units EVERY 12 HOURS SUBQ 06/02/20 09:00 07/17/20 08:59 06/04/20 09:05 Insulin Aspart (NovoLOG) EVERY 4 HOURS SUBQ 06/04/20 13:00 09/02/20 12:59 06/04/20 12:51 Insulin Detemir (Levemir) 15 units BEDTIME SUBQ 06/04/20 09:45 09/02/20 09:44 06/04/20 10:25 Meropenem 1 gm/ Sodium Chloride 55 ml @ 110 mls/hr Q12HR IVPB 06/03/20 09:00 06/09/20 23:59 06/04/20 09:05 Pravastatin Sodium (Pravachol) 20 mg BEDTIME GT 06/02/20 21:00 07/02/20 20:59 06/03/20 21:04 Sennosides (Senokot) 8.6 mg DAILY GT 06/02/20 09:00 07/02/20 08:59 06/04/20 08:57 Assessment/Plan Problems: (1) Sepsis (2) Diabetes mellitus (3) Feeding by G-tube (4) Severe protein-calorie malnutrition (5) Parkinson disease (6) History of hypertension (7) History of CVA (cerebrovascular accident) Assessment/Plan serum Na is lower ronquillo culture, Urine has proteus,, COVID Negative iv abx iv fluids renal studies urine electrolytes. sliding scale hold feeding for now Latanya Mckeon MD Jun 04, 2020 16:29
--- NOTE | 2020-06-04 17:43 | Internal Med Progress Note ---
Subjective Date of Service: Jun 04, 2020 Physician Name Tello Cobb Attending Physician Cirilo Rome MD Current Medications Medications (Trade) Dose Ordered Sig/Debi Route PRN Reason Start Time Stop Time Status Last Admin Dose Admin Acetaminophen (Tylenol) 650 mg Q6H PRN GT Mild Pain (Pain Scale 1-3) 06/02/20 03:15 07/02/20 03:14 Amantadine HCl (Symmetrel) 100 mg TWICE A DAY GT 06/02/20 09:00 07/02/20 08:59 06/04/20 08:57 Aspirin (ASA) 81 mg DAILY GT 06/02/20 09:00 07/17/20 08:59 06/04/20 09:03 Dextrose 1,000 ml @ 150 mls/hr Q6H40M IV 06/03/20 13:00 07/03/20 12:59 06/04/20 16:04 Dextrose (Dextrose 50%) 25 ml Q30M PRN IV Hypoglycemia 06/04/20 09:45 09/02/20 09:44 Dextrose (Dextrose 50%) 50 ml Q30M PRN IV Hypoglycemia 06/04/20 09:45 09/02/20 09:44 Famotidine (Pepcid) 20 mg BID GT 06/03/20 18:00 09/01/20 17:59 06/04/20 08:57 Heparin Sodium (Porcine) (Heparin 5000 units/ml) 5,000 units EVERY 12 HOURS SUBQ 06/02/20 09:00 07/17/20 08:59 06/04/20 09:05 Insulin Aspart (NovoLOG) EVERY 4 HOURS SUBQ 06/04/20 13:00 09/02/20 12:59 06/04/20 12:51 Insulin Detemir (Levemir) 15 units BEDTIME SUBQ 06/04/20 09:45 09/02/20 09:44 06/04/20 10:25 Meropenem 1 gm/ Sodium Chloride 55 ml @ 110 mls/hr Q12HR IVPB 06/03/20 09:00 06/09/20 23:59 06/04/20 09:05 Pravastatin Sodium (Pravachol) 20 mg BEDTIME GT 06/02/20 21:00 07/02/20 20:59 06/03/20 21:04 Sennosides (Senokot) 8.6 mg DAILY GT 06/02/20 09:00 07/02/20 08:59 06/04/20 08:57 Allergies: Coded Allergies: No Known Allergies (Unverified , 08/27/19) ROS Limited/Unobtainable: No Constitutional: Reports: no symptoms HEENT: Reports: no symptoms Cardiovascular: Reports: no symptoms Respiratory: Reports: no symptoms Gastrointestinal/Abdominal: Reports: no symptoms Genitourinary: Reports: no symptoms Neurologic/Psychiatric: Reports: no symptoms Subjective 79 YO M admitted with hyperglycemia and hypernatremia. Now UTI. Cover for Int Med-Dr Rome Step down unit Objective Last Vital Signs Date Time Temp Pulse Resp B/P (MAP) Pulse Ox O2 Delivery O2 Flow Rate FiO2 06/04/20 16:13 Room Air 06/04/20 16:00 96.6 104 18 135/70 (91) 99 06/01/20 22:30 3.0 Laboratory Tests Test 06/03/20 20:56 06/04/20 05:36 06/04/20 06:20 06/04/20 17:20 POC Whole Blood Glucose 245 MG/DL (74-106) H Pending 99 MG/DL (74-106) White Blood Count 7.0 K/UL (4.8-10.8) Red Blood Count 3.57 M/UL (4.70-6.10) L Hemoglobin 11.1 G/DL (14.2-18.0) L Hematocrit 35.7 % (42.0-52.0) L Mean Corpuscular Volume 100 FL (80-99) H Mean Corpuscular Hemoglobin 31.0 PG (27.0-31.0) Mean Corpuscular Hemoglobin Concent 31.0 G/DL (32.0-36.0) L Red Cell Distribution Width 14.4 % (11.6-14.8) Platelet Count 500 K/UL (150-450) H Mean Platelet Volume 7.1 FL (6.5-10.1) Neutrophils (%) (Auto) 71.5 % (45.0-75.0) Lymphocytes (%) (Auto) 23.7 % (20.0-45.0) Monocytes (%) (Auto) 3.5 % (1.0-10.0) Eosinophils (%) (Auto) 0.8 % (0.0-3.0) Basophils (%) (Auto) 0.5 % (0.0-2.0) Erythrocyte Sedimentation Rate 117 MM/HR (0-20) H Sodium Level 150 MMOL/L (136-145) #H Potassium Level 3.0 MMOL/L (3.5-5.1) L Chloride Level 110 MMOL/L (98-107) H Carbon Dioxide Level 28 MMOL/L (21-32) Anion Gap 12 mmol/L (5-15) Blood Urea Nitrogen 20 mg/dL (7-18) H Creatinine 1.1 MG/DL (0.55-1.30) Estimat Glomerular Filtration Rate > 60 mL/min (>60) Glucose Level 300 MG/DL (74-106) H Hemoglobin A1c 8.0 % (4.3-6.0) H Uric Acid 6.5 MG/DL (2.6-7.2) Calcium Level 9.4 MG/DL (8.5-10.1) Phosphorus Level 2.5 MG/DL (2.5-4.9) Magnesium Level 1.7 MG/DL (1.8-2.4) L Total Bilirubin 0.5 MG/DL (0.2-1.0) Gamma Glutamyl Transpeptidase 115 U/L (5-85) H Aspartate Amino Transf (AST/SGOT) 15 U/L (15-37) Alanine Aminotransferase (ALT/SGPT) 14 U/L (12-78) Alkaline Phosphatase 147 U/L (46-116) H Total Creatine Kinase 64 U/L (26-308) C-Reactive Protein, Quantitative 20.9 mg/dL (0.00-0.90) H Pro-B-Type Natriuretic Peptide 114 pg/mL (0-125) Total Protein 8.3 G/DL (6.4-8.2) H Albumin 2.1 G/DL (3.4-5.0) L Globulin 6.2 g/dL Albumin/Globulin Ratio 0.3 (1.0-2.7) L Triglycerides Level 90 MG/DL (30-150) Cholesterol Level 88 MG/DL (< 200) LDL Cholesterol 36 mg/dL (<100) HDL Cholesterol 41 MG/DL (40-60) Cholesterol/HDL Ratio 2.1 (3.3-4.4) L Thyroid Stimulating Hormone (TSH) 4.250 uiU/mL (0.358-3.740) Test 06/04/20 17:22 POC Whole Blood Glucose 101 MG/DL (74-106) Microbiology Date/Time Source Procedure Growth Status 06/01/20 22:45 Blood Blood Culture - Preliminary NO GROWTH AFTER 48 HOURS Resulted 06/01/20 22:30 Blood Blood Culture - Preliminary NO GROWTH AFTER 48 HOURS Resulted 06/01/20 23:35 Nasal Nares MRSA Culture - Final NO METHICILLIN RESISTANT STAPH AUREUS... Complete 06/01/20 23:06 Nasopharynx SARS-CoV-2 RdRp Gene Assay - Final Complete 06/03/20 01:00 Urine,Clean Catch Urine Culture - Preliminary NO GROWTH Resulted 06/01/20 22:38 Urine,Clean Catch Urine Culture - Preliminary Proteus Mirabilis Resulted 06/01/20 23:35 Rectum - Final NO CARBAPENEM-RESISTANT ENTEROBACTERI... Complete 06/01/20 23:35 Rectum VRE Culture - Final NO VANCOMYCIN RESISTANT ENTEROCOCCUS ... Complete Intake and Output 06/03/20 06/04/20 19:00 07:00 Intake Total 1380 ml 1150 ml Output Total 1100 ml 1400 ml Balance 280 ml -250 ml IV Total 280 ml 150 ml Other 1100 ml 1000 ml Output Urine Total 1100 ml 1400 ml # Voids 1 # Bowel Movements 1 Objective PHYSICAL EXAMINATION: GENERAL: The patient is a well-developed, well-nourished, thin-appearing, male, in no apparent distress. HEENT: Eyes, pupils equal and responsive to light and accommodation. Extraocular movements are intact. NECK: Supple without lymphadenopathy. CHEST: Lungs are clear to auscultation bilaterally without wheezes or rales. CARDIOVASCULAR: Slightly tachycardic, regular rhythm. S1, S2 are normal without murmurs, rubs, or gallops. ABDOMEN: Soft, nontender, and nondistended. Positive bowel sounds. No evidence of hepatosplenomegaly. Currently, no rebound or guarding noted. EXTREMITIES: Negative for clubbing, cyanosis, or edema. RECTAL: Not performed. GENITAL: Not performed. NEUROLOGIC: Cranial nerves II through XII are grossly intact without focal deficits. Assessment/Plan Assessment/Plan ASSESSMENT: This is a 79-year-old male with: 1. Hyperglycemia. 2. Hypernatremia. 3. Urinary tract infection=MDR proteus. 4. Diabetes type 2. 5. Hypertension. 6. Hypercholesterolemia. 7. Dysphagia. 8. Parkinson disease. 9. Ulcerative proctitis. 10. Protein-calorie malnutrition. 11. History of sacral decubitus ulcer stage IV. 12. Benign prostatic hypertrophy. 13. Gastroesophageal reflux disease. 14. Metabolic encephalopathy. 15. History of left hip fracture. TREATMENT: 1. Hyperglycemia/diabetes. The patient has been placed on a protocol using NovoLog sliding scale. The patient's blood sugars have been running in 300s. Hyperglycemia may be secondary to urinary tract infection. 2. Urinary tract infection. Urine culture =MDR proteus. ABX= meropenem. results.ID=Dr Oliva 3. Hypertension. Continue amlodipine as above. 4. Hypercholesterolemia. Continue atorvastatin as above. 5. Dysphagia. The patient is status post PEG placement. 6. Parkinson disease. Continue amantadine as above. 7. Ulcerative proctitis. 8. Protein-calorie malnutrition. 9. Sacral decubitus ulcer stage IV. 10. Benign prostatic hypertrophy. Continue tamsulosin as above. 11. Gastroesophageal reflux disease. 12. Metabolic encephalopathy. 13. History of left hip fracture. Tello Cobb MD Jun 04, 2020 17:43
--- NOTE | 2020-06-04 19:17 | NUR ---
NURSE NOTES: Patient received from Nancy TURNER. Patient in stable condition. Alert and oriented x2. No s/s of distress. Saturating well on RA with 2L of Nasal cannula at bedside for PRN use. G-tube present patent and intact with water running @ 100mls/hr. IV sites on Left hand 20G and Right hand 24G patent and intact with D5 running @ 150mls/hr on the Left FA. Bed in lowest position and locked. Call light and bedside table within reach. Will continue plan of care.
--- NOTE | 2020-06-04 19:54 | NUR ---
NURSE NOTES: Left message for Primary Doctor for patient's episode of PSVT 170HR
--- NOTE | 2020-06-04 19:54 | NUR ---
NURSE NOTES: Patient had an episode of PSVT 170HR
--- NOTE | 2020-06-04 19:54 | NUR ---
NURSE HAND-OFF REPORT: Important Events on Shift:PT ON CONTINUOUS WATER FLUSHES 100ML/HR, 4 BAGS OF MAG AND 2 OF POTASSIUM WERE GIVEN Patient Status: FULL IN STABLE CONDITION Diet: GTUBE LAST BS 99 Pending Orders: Pending Results/Labs: Pending MD notification: Latest Vital Signs: Temperature 96.6 , Pulse 94 , B/P 135 /70 , Respiratory Rate 18 , O2 SAT 99 , Room Air, O2 Flow Rate 3.0 . Vital Sign Comment: EKG Rhythm: Sinus Rhythm Rhythm change?: N MD Notified?: - MD Response: Latest Lane Fall Score: 70 Fall Risk: High Risk Safety Measures: Call light Within Reach, Bed Alarm Zone 1, Side Rails Side Rails x3, Bed position Low and Locked. Fall Precautions: y Yellow Socks y Yellow Gown y Door Sign Patient Fall Education y Report given to Calletor/rn .
[2020-06-04 20:00] VITALS: BP 121/73
[2020-06-05] VITALS: BP 129/75
[2020-06-05] MEDS: NovoLOG Insulin Flexpen SUBQ SCH ×6 (01:00→21:00)
[2020-06-05 04:00] VITALS: BP 122/68
--- NOTE | 2020-06-05 07:23 | NUR ---
NURSE HAND-OFF REPORT: Important Events on Shift:[PSVT HR 170 Attending MD aware] Patient Status: [Stable] Diet: [Held feeding Glucerna 1.5 @30mls/hr] Pending Orders: [] Pending Results/Labs:[] Pending MD notification:[] Latest Vital Signs: Temperature 97.9 , Pulse 97 , B/P 122 /68 , Respiratory Rate 20 , O2 SAT 96 , Room Air, O2 Flow Rate 3.0 . Vital Sign Comment: [] EKG Rhythm: Sinus Rhythm Rhythm change?: N MD Notified?: - MD Response: Latest Lane Fall Score: 70 Fall Risk: High Risk Safety Measures: Call light Within Reach, Bed Alarm Zone 1, Side Rails Side Rails x3, Bed position Low and Locked. Fall Precautions: Yellow Socks Yellow Gown Door Sign Patient Fall Education Report given to [Stephanie TURNER].
--- NOTE | 2020-06-05 07:57 | NUR ---
NURSE NOTES: Received report from JOHNNY Chavez. Patient AAO x2. Breathing regular and unlabored on room air. Radial pulses palpable, equal. IVs patent, no redness or edema, infusing. Free H2O via GT running. Condom cath on. Fall and skin precautions in place.
[2020-06-05 08:00] VITALS: BP 123/94
[2020-06-05 08:47] LABS: EOSINOPHILS % (AUTO) 0.5 % (0.0-3.0); HEMATOCRIT 32.6 % (42.0-52.0); HEMOGLOBIN 10.4 G/DL (14.2-18.0); LYMPHOCYTES % (AUTO) 28.4 % (20.0-45.0); MEAN CORPUSCULAR VOLUME 96 FL (80-99); NEUTROPHILS % (AUTO) 61.2 % (45.0-75.0); PLATELET COUNT 507 K/UL (150-450); RED BLOOD COUNT 3.38 M/UL (4.70-6.10); RED CELL DISTRIBUTION WIDTH 13.3 % (11.6-14.8)
[2020-06-05 08:58] LABS: ANION GAP 10 mmol/L (5-15); BLOOD UREA NITROGEN 12 mg/dL (7-18); CALCIUM 9.2 MG/DL (8.5-10.1); CARBON DIOXIDE 25 MMOL/L (21-32); CHLORIDE 107 MMOL/L (98-107); POTASSIUM 3.3 MMOL/L (3.5-5.1); SODIUM 142 MMOL/L (136-145)
--- NOTE | 2020-06-05 09:35 | Consultation ---
History of Present Illness General Date patient seen: Jun 05, 2020 Reason for Hospitalization: Abnormal Labs Present Illness HPI This is a pleasant 79-year-old male well-known to me from prior admissions and care plan who presented [facility] with abnormal labs, fevers, elevated glucose levels. Patient admitted further care management. Patient in the past had interventions by myself and has been in a care facility since undergoing care. Wound concerns identified during admission and surgery called to evaluate and assist with care. Patient seen patient evaluated chart reviewed. No nausea vomiting fever chills. Tube feeds. Comfortable appearing. Imaging reviewed Allergies: Coded Allergies: No Known Allergies (Unverified , 08/27/19) COVID-19 Screening Contact w/high risk pt: Yes Experienced COVID-19 symptoms?: Yes COVID-19 symptoms experienced: Fever (T>100.4F or >38C) Medication History Scheduled Amantadine Hcl* (Amantadine*), 100 MG ORAL TWICE A DAY, (Reported) Amantadine Hcl* (Amantadine*), 100 MG GT TWICE A DAY, (Reported) Amlodipine Besylate (Norvasc), 10 MG ORAL DAILY, (Reported) Amlodipine Besylate* (Amlodipine Besylate*), 10 MG GT DAILY, (Reported) Aspirin (Aspirin EC), 81 MG ORAL DAILY, (Reported) Benazepril/Hydrochlorothiazide (Lotensin Hct 10-12.5 mg Tablet), 1 EACH PO DAILY , (Reported) Docusate Sodium* (Colace*), 100 MG GT TWICE A DAY, (Reported) Ertapenem (Invanz), 1 GM IM DAILY Hydroxyurea* (HYDREA 500mg*), 500 MG PO DAILY, (Reported) Metformin Hcl (Glucophage), 1,000 MG ORAL BID, (Reported) Metformin Hcl* (Metformin Hcl*), 1,000 MG GT DAILY, (Reported) Pravastatin Sod (Pravastatin Sod), 20 MG ORAL DAILY, (Reported) Pravastatin Sod* (Pravastatin Sod*), 20 MG GT BEDTIME, (Reported) Tamsulosin HCl (Flomax), 0.4 MG ORAL BEDTIME Tamsulosin HCl (Flomax), 0.4 MG GT DAILY, (Reported) Scheduled PRN Acetaminophen* (Acetaminophen 325MG Tablet*), 325 MG GT Q6HR PRN for , ( Reported) Ondansetron* (Zofran*), 4 MG GT Q6H PRN for Nausea & Vomiting, (Reported) Simethicone* (Simethicone*), 80 MG GT DAILY PRN for GAS PAIN, (Reported) Miscellaneous Medications Hydroxyurea* (HYDREA 500mg*), 500 MG GT, (Reported) Sennosides (Senna), 8.6 MG GT, (Reported) Patient History Limited by: medical condition History Provided By: Medical Record, PMD Healthcare decision maker Resuscitation status Advanced Directive on File Past Medical/Surgical History Past Medical/Surgical History: (1) Hypernatremia (2) Dehydration (3) Hip fracture, left (4) Diabetes mellitus (5) History of hypertension (6) Severe protein-calorie malnutrition (7) Acute encephalopathy (8) Pressure Ulcer Of Sacral Region, Unstageable (9) Feeding by G-tube (10) Abdominal distention (11) Multiple drug resistant organism (MDRO) culture positive (12) Sepsis (13) History of CVA (cerebrovascular accident) (14) Parkinson disease Family History Family History: CVA Review of Systems Review of Symptoms General ROS: no weight loss or fever Psychological ROS: no depression or mood changes, no memory loss Ophthalmic ROS: no visual changes or eye irritation ENT ROS: no nasal congestion, hearing loss, dizziness Allergy and Immunology ROS: no allergic symptoms or urticaria Hematological and Lymphatic ROS: no swollen glands, unusual bleeding or bruising Endocrine ROS: no polyuria, polydipsia, weight changes, temperature intolerance Respiratory ROS: no cough, shortness of breath, or wheezing Cardiovascular ROS: no chest pain or dyspnea on exertion Gastrointestinal ROS: denies abdominal pain, bright red blood in stool. Musculoskeletal ROS: no myalgias or arthralgias Neurological ROS: no TIA or stroke symptoms Dermatological ROS: no new or changing skin lesions, rashes or pruritis Physical Exam Physical Exam General appearance: alert, cooperative, no distress, appears stated age Head: Normocephalic, without obvious abnormality, atraumatic Eyes: conjunctivae/corneas clear. PERRL, EOM's intact. Fundi benign Throat: Lips, mucosa, and tongue normal. Teeth and gums normal Neck: supple, symmetrical, trachea midline, no adenopathy, thyroid: not enlarged, symmetric, no tenderness/mass/nodules, no carotid bruit and no JVD Lungs: clear to auscultation bilaterally Heart: regular rate and rhythm, S1, S2 normal, no murmur, click, rub or gallop Abdomen: soft, non-tender. Bowel sounds normal. No masses, no organomegaly Extremities: extremities normal, atraumatic, no cyanosis or edema Pulses: 2+ and symmetric Skin: Skin see below Neurologic: Grossly normal Last 24 Hour Vital Signs Date Time Temp Pulse Resp B/P (MAP) Pulse Ox O2 Delivery O2 Flow Rate FiO2 06/05/20 08:00 Room Air 06/05/20 08:00 96.7 88 21 123/94 (104) 95 06/05/20 04:00 105 06/05/20 04:00 Room Air 06/05/20 04:00 97.9 97 20 122/68 (86) 96 06/05/20 00:00 Room Air 06/05/20 00:00 100 06/05/20 00:00 98.8 100 24 129/75 (93) 98 06/04/20 20:00 101 06/04/20 20:00 99.0 100 18 121/73 (89) 99 06/04/20 20:00 Room Air 06/04/20 16:13 Room Air 06/04/20 16:00 94 06/04/20 16:00 96.6 104 18 135/70 (91) 99 06/04/20 12:00 Room Air 06/04/20 12:00 97.9 86 20 117/62 (80) 95 06/04/20 11:39 88 Intake and Output 06/04/20 06/05/20 19:00 07:00 Intake Total 1750 ml 1200 ml Output Total 2850 ml 2000 ml Balance -1100 ml -800 ml IV Total 1050 ml Other 700 ml 1200 ml Output Urine Total 2850 ml 2000 ml Laboratory Tests Test 06/04/20 17:20 06/04/20 17:22 06/04/20 23:44 06/05/20 08:00 POC Whole Blood Glucose 99 MG/DL (74-106) 101 MG/DL (74-106) 93 MG/DL (74-106) White Blood Count 6.0 K/UL (4.8-10.8) Red Blood Count 3.38 M/UL (4.70-6.10) L Hemoglobin 10.4 G/DL (14.2-18.0) L Hematocrit 32.6 % (42.0-52.0) L Mean Corpuscular Volume 96 FL (80-99) Mean Corpuscular Hemoglobin 30.7 PG (27.0-31.0) Mean Corpuscular Hemoglobin Concent 31.9 G/DL (32.0-36.0) L Red Cell Distribution Width 13.3 % (11.6-14.8) Platelet Count 507 K/UL (150-450) H Mean Platelet Volume 7.4 FL (6.5-10.1) Neutrophils (%) (Auto) 61.2 % (45.0-75.0) Lymphocytes (%) (Auto) 28.4 % (20.0-45.0) Monocytes (%) (Auto) 9.0 % (1.0-10.0) Eosinophils (%) (Auto) 0.5 % (0.0-3.0) Basophils (%) (Auto) 1.0 % (0.0-2.0) Sodium Level 142 MMOL/L (136-145) Potassium Level 3.3 MMOL/L (3.5-5.1) L Chloride Level 107 MMOL/L (98-107) Carbon Dioxide Level 25 MMOL/L (21-32) Anion Gap 10 mmol/L (5-15) Blood Urea Nitrogen 12 mg/dL (7-18) Creatinine 1.0 MG/DL (0.55-1.30) Estimat Glomerular Filtration Rate > 60 mL/min (>60) Glucose Level 148 MG/DL (74-106) #H Calcium Level 9.2 MG/DL (8.5-10.1) Height (Feet): 5 Height (Inches): 5.00 Weight (Pounds): 147 Medications Current Medications Medications (Trade) Dose Ordered Sig/Debi Route PRN Reason Start Time Stop Time Status Last Admin Dose Admin Acetaminophen (Tylenol) 650 mg Q6H PRN GT Mild Pain (Pain Scale 1-3) 06/02/20 03:15 07/02/20 03:14 Amantadine HCl (Symmetrel) 100 mg TWICE A DAY GT 06/02/20 09:00 07/02/20 08:59 06/04/20 17:36 Aspirin (ASA) 81 mg DAILY GT 06/02/20 09:00 07/17/20 08:59 06/04/20 09:03 Dextrose 1,000 ml @ 150 mls/hr Q6H40M IV 06/03/20 13:00 07/03/20 12:59 06/05/20 04:55 Dextrose (Dextrose 50%) 25 ml Q30M PRN IV Hypoglycemia 06/04/20 09:45 09/02/20 09:44 Dextrose (Dextrose 50%) 50 ml Q30M PRN IV Hypoglycemia 06/04/20 09:45 09/02/20 09:44 Famotidine (Pepcid) 20 mg BID GT 06/03/20 18:00 09/01/20 17:59 06/04/20 17:36 Heparin Sodium (Porcine) (Heparin 5000 units/ml) 5,000 units EVERY 12 HOURS SUBQ 06/02/20 09:00 07/17/20 08:59 06/04/20 20:39 Insulin Aspart (NovoLOG) EVERY 4 HOURS SUBQ 06/04/20 13:00 09/02/20 12:59 06/04/20 12:51 Insulin Detemir (Levemir) 15 units BEDTIME SUBQ 06/04/20 09:45 09/02/20 09:44 06/04/20 10:25 Meropenem 1 gm/ Sodium Chloride 55 ml @ 110 mls/hr Q12HR IVPB 06/03/20 09:00 06/09/20 23:59 06/04/20 20:31 Pravastatin Sodium (Pravachol) 20 mg BEDTIME GT 06/02/20 21:00 07/02/20 20:59 06/04/20 20:31 Sennosides (Senokot) 8.6 mg DAILY GT 06/02/20 09:00 07/02/20 08:59 06/04/20 08:57 Assessment/Plan Problem List: (1) Hypernatremia ICD Codes: E87.0 - Hyperosmolality and hypernatremia SNOMED: 162377228 (2) Dehydration ICD Codes: E86.0 - Dehydration SNOMED: 44862007 (3) Hip fracture, left ICD Codes: S72.002A - Fracture of unspecified part of neck of left femur, initial encounter for closed fracture SNOMED: 656783993 (4) Diabetes mellitus ICD Codes: E11.9 - Type 2 diabetes mellitus without complications SNOMED: 94204430 (5) History of hypertension ICD Codes: Z86.79 - Personal history of other diseases of the circulatory system SNOMED: 554989512 (6) Severe protein-calorie malnutrition Assessment & Plan: DAILY ESTIMATED NEEDS: Needs based on Sepsis, DM/ 54kg 30-40 kcals/kg 6268-2205 total kcals 1.25-2 g protein/kg 68-108 g total protein 25-35ml/kcal mL/kg 6338-4482 total fluid mLs NUTRITION DIAGNOSIS: * Swallowing difficulty R/T dysphagia, as evidenced by Pt is GT dep. (CURRENT TF: Glucerna 1.5 @ 30ml/hr x 24 hrs) ENTERAL NUTRITION RECOMMENDATIONS: Glucerna 1.5 @ 60ml/hr x 20 hrs to provide 1200ml, 1800kcal, 99g prot, 911ml free water, 160g carbs * Rec to INCREASE TF GOAL to 60ml/hr for 20 hrs * HOB over 30 degrees, increased water flushes * TF at goal meets 100% est needs. -------- ADDITIONAL RECOMMENDATIONS: * Calibrated bedscale wt for accurate CBW * Monitor lytes daily w/ TF, replete as needed * Pt may require increase in insulin regimen for improved BG W/ continuous TF infusion * Wound healing: DOMENICA BID, F/up w/ WC eval . ICD Codes: E43 - Unspecified severe protein-calorie malnutrition SNOMED: 657469261, 341473659, 856760355 (7) Acute encephalopathy ICD Codes: G93.40 - Encephalopathy, unspecified SNOMED: 92923517, 085094588 (8) Pressure Ulcer Of Sacral Region, Unstageable Assessment & Plan: Pt presented on admission with purple and indurated area at Sacrococcygeal at previously compromised site(L)7cm x (W)3cm.Surrounding Hyperpigmentation at Sacrum. Non-Blanching erythema without fluctuance R heel. Non-Blanching erythema with delineated margins L heel (L)4.5cm x (W)5.5cm. L Heel is boggy . Tx.Plan: Apply Moisture Barrier Paste to Sacrum. Cover with Optifoam drsgs. Change every 3 days and prn. Apply Cavilon Skin Barrier to R and L trochanter. Cover each site with Optifoam drsgs. Change every 7 days and prn. Apply Cavilon Skin Barrier to each heel and malleoli. Cover each site with Optifoam drsgs. Change every 7 days and prn. Reposition at least every 2hours or as tolerated. Off-load heels with pillow. ICD Codes: L89.150 - Pressure Ulcer Of Sacral Region, Unstageable (9) Feeding by G-tube ICD Codes: Z93.1 - Gastrostomy status SNOMED: 830699251, 055667605, 142364989 (10) Abdominal distention ICD Codes: R14.0 - Abdominal distension (gaseous) SNOMED: 78539337 (11) Multiple drug resistant organism (MDRO) culture positive ICD Codes: Z16.24 - Resistance to multiple antibiotics SNOMED: 501018452 (12) Sepsis ICD Codes: A41.9 - Sepsis, unspecified organism SNOMED: 07784649 (13) History of CVA (cerebrovascular accident) ICD Codes: Z86.73 - Personal history of transient ischemic attack (TIA), and cerebral infarction without residual deficits SNOMED: 504341460 (14) Parkinson disease ICD Codes: G20 - Parkinson's disease SNOMED: 42230453 James Breen Jun 05, 2020 09:35
[2020-06-05] MEDS: Sennosides 8.6mg tab GT SCH (09:58)
[2020-06-05] MEDS: Amantadine 100mg cap GT SCH ×2 (09:59→17:00)
[2020-06-05] MEDS: Aspirin Baby 81mg GT SCH (09:59)
[2020-06-05] MEDS: Heparin 5000 units/ml inj SUBQ SCH ×2 (10:00→22:39)
[2020-06-05] MEDS: Meropenem 1gm in NS 55ml IVPB SCH ×2 (10:10→22:38)
--- NOTE | 2020-06-05 10:30 | NUR ---
NURSE NOTES: Pharmacy aware pt. need new insulin pen.
--- NOTE | 2020-06-05 10:34 | Infectious Diseases Prog Note ---
Assessment/Plan 79yo M with: Fever Leukocytosis, improving KELLY, improving UTI 06/01 UA w/ pyuria, UCx + P Mirabilis 06/01 BCx NTD 06/01 CXR: No acute process COVID rapid test neg H/o ESBL Proteus in UCx in Oct 2019 Renal US w/ BL cysts PMH: DM2 Parkinson's dementia Bedridden G-tube Plan: Cont meropenem #3 /10 F/u BCx, MRSA nares 06/02 SP erta #1 06/01 SP cefepime, vanco, flagyl x1 in ED Monitor CBC/BMP Trend leukocytosis, KELLY Trend hemodynamics, temp curve D/w RN Thank you for this consult. [facility] will continue to follow. Subjective Constitutional: Denies: no symptoms, fever, chills, fatigue, anorexia, drenching sweats, other Allergies: Coded Allergies: No Known Allergies (Unverified , 08/27/19) Objective Last 24 Hour Vital Signs Date Time Temp Pulse Resp B/P (MAP) Pulse Ox O2 Delivery O2 Flow Rate FiO2 06/05/20 08:00 Room Air 06/05/20 08:00 91 06/05/20 08:00 96.7 88 21 123/94 (104) 95 06/05/20 04:00 105 06/05/20 04:00 Room Air 06/05/20 04:00 97.9 97 20 122/68 (86) 96 06/05/20 00:00 Room Air 06/05/20 00:00 100 06/05/20 00:00 98.8 100 24 129/75 (93) 98 06/04/20 20:00 101 06/04/20 20:00 99.0 100 18 121/73 (89) 99 06/04/20 20:00 Room Air 06/04/20 16:13 Room Air 06/04/20 16:00 94 06/04/20 16:00 96.6 104 18 135/70 (91) 99 06/04/20 12:00 Room Air 06/04/20 12:00 97.9 86 20 117/62 (80) 95 06/04/20 11:39 88 Height (Feet): 5 Height (Inches): 5.00 Weight (Pounds): 147 HEENT: atraumatic Respiratory/Chest: normal breath sounds Cardiovascular: regular rhythm Abdomen: soft, non tender Microbiology Date/Time Source Procedure Growth Status 06/03/20 01:00 Urine,Clean Catch Urine Culture - Preliminary NO GROWTH AFTER 24 HOURS Resulted Laboratory Tests Test 06/04/20 17:20 06/04/20 17:22 06/04/20 23:44 06/05/20 08:00 POC Whole Blood Glucose 99 MG/DL (74-106) 101 MG/DL (74-106) 93 MG/DL (74-106) White Blood Count 6.0 K/UL (4.8-10.8) Red Blood Count 3.38 M/UL (4.70-6.10) L Hemoglobin 10.4 G/DL (14.2-18.0) L Hematocrit 32.6 % (42.0-52.0) L Mean Corpuscular Volume 96 FL (80-99) Mean Corpuscular Hemoglobin 30.7 PG (27.0-31.0) Mean Corpuscular Hemoglobin Concent 31.9 G/DL (32.0-36.0) L Red Cell Distribution Width 13.3 % (11.6-14.8) Platelet Count 507 K/UL (150-450) H Mean Platelet Volume 7.4 FL (6.5-10.1) Neutrophils (%) (Auto) 61.2 % (45.0-75.0) Lymphocytes (%) (Auto) 28.4 % (20.0-45.0) Monocytes (%) (Auto) 9.0 % (1.0-10.0) Eosinophils (%) (Auto) 0.5 % (0.0-3.0) Basophils (%) (Auto) 1.0 % (0.0-2.0) Sodium Level 142 MMOL/L (136-145) Potassium Level 3.3 MMOL/L (3.5-5.1) L Chloride Level 107 MMOL/L (98-107) Carbon Dioxide Level 25 MMOL/L (21-32) Anion Gap 10 mmol/L (5-15) Blood Urea Nitrogen 12 mg/dL (7-18) Creatinine 1.0 MG/DL (0.55-1.30) Estimat Glomerular Filtration Rate > 60 mL/min (>60) Glucose Level 148 MG/DL (74-106) #H Calcium Level 9.2 MG/DL (8.5-10.1) Test 06/05/20 10:18 POC Whole Blood Glucose 148 MG/DL (74-106) H Current Medications Medications (Trade) Dose Ordered Sig/Debi Route PRN Reason Start Time Stop Time Status Last Admin Dose Admin Acetaminophen (Tylenol) 650 mg Q6H PRN GT Mild Pain (Pain Scale 1-3) 06/02/20 03:15 07/02/20 03:14 Amantadine HCl (Symmetrel) 100 mg TWICE A DAY GT 06/02/20 09:00 07/02/20 08:59 06/05/20 09:59 Aspirin (ASA) 81 mg DAILY GT 06/02/20 09:00 07/17/20 08:59 06/05/20 09:59 Dextrose 1,000 ml @ 150 mls/hr Q6H40M IV 06/03/20 13:00 07/03/20 12:59 06/05/20 04:55 Dextrose (Dextrose 50%) 25 ml Q30M PRN IV Hypoglycemia 06/04/20 09:45 09/02/20 09:44 Dextrose (Dextrose 50%) 50 ml Q30M PRN IV Hypoglycemia 06/04/20 09:45 09/02/20 09:44 Famotidine (Pepcid) 20 mg BID GT 06/03/20 18:00 09/01/20 17:59 06/05/20 09:59 Heparin Sodium (Porcine) (Heparin 5000 units/ml) 5,000 units EVERY 12 HOURS SUBQ 06/02/20 09:00 07/17/20 08:59 06/05/20 10:00 Insulin Aspart (NovoLOG) EVERY 4 HOURS SUBQ 06/04/20 13:00 09/02/20 12:59 06/04/20 12:51 Insulin Detemir (Levemir) 15 units BEDTIME SUBQ 06/04/20 09:45 09/02/20 09:44 06/04/20 10:25 Meropenem 1 gm/ Sodium Chloride 55 ml @ 110 mls/hr Q12HR IVPB 06/03/20 09:00 06/09/20 23:59 06/05/20 10:10 Potassium Chloride 100 ml @ 100 mls/hr Q1H IVPB 06/05/20 10:30 06/05/20 12:29 Pravastatin Sodium (Pravachol) 20 mg BEDTIME GT 06/02/20 21:00 07/02/20 20:59 06/04/20 20:31 Sennosides (Senokot) 8.6 mg DAILY GT 06/02/20 09:00 07/02/20 08:59 06/05/20 09:58 Jose Cruz Harris MD Jun 05, 2020 10:34
--- NOTE | 2020-06-05 11:07 | NUR ---
RD ASSESSMENT & RECOMMENDATIONS SEE CARE ACTIVITY FOR COMPLETE ASSESSMENT DAILY ESTIMATED NEEDS: Needs based on Sepsis, DM/ 54kg 30-40 kcals/kg 9990-8023 total kcals 1.25-2 g protein/kg 68-108 g total protein 25-35ml/kcal mL/kg 6782-2032 total fluid mLs NUTRITION DIAGNOSIS: * Swallowing difficulty R/T dysphagia, as evidenced by Pt is GT dep. CURRENT DIET:NPO CURRENT TF: Glucerna 1.5 @ 30ml/hr x 24 hrs-> HELD ENTERAL NUTRITION RECOMMENDATIONS: Glucerna 1.5 @ 60ml/hr x 20 hrs to provide 1200ml, 1800kcal, 99g prot, 911ml free water, 160g carbs * Rec to INCREASE TF GOAL to 60ml/hr for 20 hrs * HOB over 30 degrees, increased water flushes * TF at goal meets 100% est needs. ---- ADDITIONAL RECOMMENDATIONS: * Calibrated bedscale wt for accurate CBW * Monitor lytes daily w/ TF, replete as needed * Pt may require increase in insulin regimen for improved BG W/ continuous TF infusion * Wound healing: DOMENICA BID. * Water flushes w/ TF-> rec 150ml q4 hrs w/out IVF .
[2020-06-05 11:54] VITALS: BP 129/66
--- NOTE | 2020-06-05 14:14 | NUR ---
NURSE NOTES: Reached out to [facility] re: NA 142, free water and D5W. Awaiting response.
[2020-06-05] MEDS ORDERED: NS 275ml ONE (14:15)
[2020-06-05] MEDS ORDERED: Tubing IV Secondary IV ONE (14:15)
--- NOTE | 2020-06-05 14:53 | General Progress Note ---
Assessment/Plan Problem List: (1) Hypernatremia ICD Codes: E87.0 - Hyperosmolality and hypernatremia SNOMED: 925641606 (2) Feeding by G-tube ICD Codes: Z93.1 - Gastrostomy status SNOMED: 784613060, 900897476, 434344941 (3) Diabetes mellitus ICD Codes: E11.9 - Type 2 diabetes mellitus without complications SNOMED: 06840815 (4) History of CVA (cerebrovascular accident) ICD Codes: Z86.73 - Personal history of transient ischemic attack (TIA), and cerebral infarction without residual deficits SNOMED: 637115537 (5) Parkinson disease ICD Codes: G20 - Parkinson's disease SNOMED: 92809339 Assessment/Plan: reduce Levemir to 8 units bid continue Novolog sliding scale high dose every 4 hours continue to hold Metformin due to lactic acidosis on presentation Subjective ROS Limited/Unobtainable: Yes Allergies: Coded Allergies: No Known Allergies (Unverified , 08/27/19) Subjective events noted - interval notes reviewed glucose values improved Item Value Date Time Bedside Blood Glucose 191 mg/dl H 06/05/20 1256 Bedside Blood Glucose 148 mg/dl H 06/05/20 0900 Bedside Blood Glucose 96 mg/dl 06/05/20 0616 Bedside Blood Glucose 93 mg/dl 06/05/20 0100 Bedside Blood Glucose 88 mg/dl 06/04/20 2100 Bedside Blood Glucose 99 mg/dl 06/04/20 1700 Bedside Blood Glucose 268 mg/dl H 06/04/20 1251 Objective Last 24 Hour Vital Signs Date Time Temp Pulse Resp B/P (MAP) Pulse Ox O2 Delivery O2 Flow Rate FiO2 06/05/20 12:00 88 06/05/20 11:54 96.9 60 19 129/66 (87) 96 06/05/20 08:00 Room Air 06/05/20 08:00 91 06/05/20 08:00 96.7 88 21 123/94 (104) 95 06/05/20 04:00 105 06/05/20 04:00 Room Air 06/05/20 04:00 97.9 97 20 122/68 (86) 96 06/05/20 00:00 Room Air 06/05/20 00:00 100 06/05/20 00:00 98.8 100 24 129/75 (93) 98 06/04/20 20:00 101 06/04/20 20:00 99.0 100 18 121/73 (89) 99 06/04/20 20:00 Room Air 06/04/20 16:13 Room Air 06/04/20 16:00 94 06/04/20 16:00 96.6 104 18 135/70 (91) 99 Intake and Output 06/04/20 06/05/20 19:00 07:00 Intake Total 1750 ml 1200 ml Output Total 2850 ml 2000 ml Balance -1100 ml -800 ml IV Total 1050 ml Other 700 ml 1200 ml Output Urine Total 2850 ml 2000 ml Laboratory Tests 06/04/20 17:20: POC Whole Blood Glucose 99 06/04/20 17:22: POC Whole Blood Glucose 101 06/04/20 23:44: POC Whole Blood Glucose 93 06/05/20 08:00: White Blood Count 6.0, Red Blood Count 3.38L, Hemoglobin 10.4L, Hematocrit 32.6L , Mean Corpuscular Volume 96, Mean Corpuscular Hemoglobin 30.7, Mean Corpuscular Hemoglobin Concent 31.9L, Red Cell Distribution Width 13.3, Platelet Count 507H, Mean Platelet Volume 7.4, Neutrophils (%) (Auto) 61.2, Lymphocytes (%) (Auto) 28.4, Monocytes (%) (Auto) 9.0, Eosinophils (%) (Auto) 0.5, Basophils (%) (Auto) 1.0, Sodium Level 142, Potassium Level 3.3L, Chloride Level 107, Carbon Dioxide Level 25, Anion Gap 10, Blood Urea Nitrogen 12, Creatinine 1.0, Estimat Glomerular Filtration Rate > 60, Glucose Level 148#H, Calcium Level 9.2 06/05/20 10:18: POC Whole Blood Glucose 148H 06/05/20 12:05: POC Whole Blood Glucose 191H Height (Feet): 5 Height (Inches): 5.00 Weight (Pounds): 147 General Appearance: no apparent distress Neck: normal alignment Cardiovascular: normal rate Respiratory/Chest: decreased breath sounds Abdomen: normal bowel sounds Objective Current Medications Medications (Trade) Dose Ordered Sig/Debi Route PRN Reason Start Time Stop Time Status Last Admin Dose Admin Acetaminophen (Tylenol) 650 mg Q6H PRN GT Mild Pain (Pain Scale 1-3) 06/02/20 03:15 07/02/20 03:14 Amantadine HCl (Symmetrel) 100 mg TWICE A DAY GT 06/02/20 09:00 07/02/20 08:59 06/05/20 09:59 Aspirin (ASA) 81 mg DAILY GT 06/02/20 09:00 07/17/20 08:59 06/05/20 09:59 Dextrose 1,000 ml @ 150 mls/hr Q6H40M IV 06/03/20 13:00 07/03/20 12:59 06/05/20 11:39 Dextrose (Dextrose 50%) 25 ml Q30M PRN IV Hypoglycemia 06/04/20 09:45 09/02/20 09:44 Dextrose (Dextrose 50%) 50 ml Q30M PRN IV Hypoglycemia 06/04/20 09:45 09/02/20 09:44 Famotidine (Pepcid) 20 mg BID GT 06/03/20 18:00 09/01/20 17:59 06/05/20 09:59 Heparin Sodium (Porcine) (Heparin 5000 units/ml) 5,000 units EVERY 12 HOURS SUBQ 06/02/20 09:00 07/17/20 08:59 06/05/20 10:00 Insulin Aspart (NovoLOG) EVERY 4 HOURS SUBQ 06/04/20 13:00 09/02/20 12:59 06/05/20 12:56 Insulin Detemir (Levemir) 15 units BEDTIME SUBQ 06/04/20 09:45 09/02/20 09:44 06/04/20 10:25 Meropenem 1 gm/ Sodium Chloride 55 ml @ 110 mls/hr Q12HR IVPB 06/03/20 09:00 06/09/20 23:59 06/05/20 10:10 Pravastatin Sodium (Pravachol) 20 mg BEDTIME GT 06/02/20 21:00 07/02/20 20:59 06/04/20 20:31 Sennosides (Senokot) 8.6 mg DAILY GT 06/02/20 09:00 07/02/20 08:59 06/05/20 09:58 Gregory Pastrana MD Jun 05, 2020 14:53
--- NOTE | 2020-06-05 15:08 | NUR ---
NURSE NOTES: Received TORB from [facility] to continue free water via GT at 100 mL/hr and to decrease D5W to 75 mL/hr.
--- NOTE | 2020-06-05 15:35 | Nephrology Progress Note ---
Assessment/Plan Problem List: (1) Hypernatremia (2) Sepsis (3) History of CVA (cerebrovascular accident) (4) Parkinson disease (5) Feeding by G-tube (6) Dehydration Assessment KELLY, resolving, serum creatinine of 1.9 now down to 1.2 Hypernatremia, dehydration, free water deficit Sepsis Diabetes mellitus [id number] GT feeding Severe protein calorie malnutrition History of CVA History of hypertension Parkinson's disease Plan June 05: DC IV fluid. Potassium supplement given. Stable from renal standpoint to view. June 04: Potassium and magnesium supplement IV given, stable from renal standpoint of view. IV fluid D5W Monitor electrolytes Monitor renal parameters Hold blood pressure medication since blood pressure low Per orders, per consultants Subjective ROS Limited/Unobtainable: No Constitutional: Reports: malaise Objective Objective Last 24 Hour Vital Signs Date Time Temp Pulse Resp B/P (MAP) Pulse Ox O2 Delivery O2 Flow Rate FiO2 06/05/20 12:00 88 06/05/20 11:54 96.9 60 19 129/66 (87) 96 06/05/20 08:00 Room Air 06/05/20 08:00 91 06/05/20 08:00 96.7 88 21 123/94 (104) 95 06/05/20 04:00 105 06/05/20 04:00 Room Air 06/05/20 04:00 97.9 97 20 122/68 (86) 96 06/05/20 00:00 Room Air 06/05/20 00:00 100 06/05/20 00:00 98.8 100 24 129/75 (93) 98 06/04/20 20:00 101 06/04/20 20:00 99.0 100 18 121/73 (89) 99 06/04/20 20:00 Room Air 06/04/20 16:13 Room Air 06/04/20 16:00 94 06/04/20 16:00 96.6 104 18 135/70 (91) 99 Intake and Output 06/04/20 06/05/20 19:00 07:00 Intake Total 1750 ml 1350 ml Output Total 2850 ml 2000 ml Balance -1100 ml -650 ml IV Total 1050 ml 150 ml Other 700 ml 1200 ml Output Urine Total 2850 ml 2000 ml Laboratory Tests 06/04/20 17:20: POC Whole Blood Glucose 99 06/04/20 17:22: POC Whole Blood Glucose 101 06/04/20 23:44: POC Whole Blood Glucose 93 06/05/20 08:00: White Blood Count 6.0, Red Blood Count 3.38L, Hemoglobin 10.4L, Hematocrit 32.6L , Mean Corpuscular Volume 96, Mean Corpuscular Hemoglobin 30.7, Mean Corpuscular Hemoglobin Concent 31.9L, Red Cell Distribution Width 13.3, Platelet Count 507H, Mean Platelet Volume 7.4, Neutrophils (%) (Auto) 61.2, Lymphocytes (%) (Auto) 28.4, Monocytes (%) (Auto) 9.0, Eosinophils (%) (Auto) 0.5, Basophils (%) (Auto) 1.0, Sodium Level 142, Potassium Level 3.3L, Chloride Level 107, Carbon Dioxide Level 25, Anion Gap 10, Blood Urea Nitrogen 12, Creatinine 1.0, Estimat Glomerular Filtration Rate > 60, Glucose Level 148#H, Calcium Level 9.2 06/05/20 10:18: POC Whole Blood Glucose 148H 06/05/20 12:05: POC Whole Blood Glucose 191H Height (Feet): 5 Height (Inches): 5.00 Weight (Pounds): 147 General Appearance: no apparent distress Neck: limited range of motion Cardiovascular: other - Variable rate Respiratory/Chest: decreased breath sounds Abdomen: soft, other - PEG Eddie Nelson MD Jun 05, 2020 15:35
[2020-06-05 16:00] VITALS: BP 130/71
--- NOTE | 2020-06-05 17:04 | Internal Med Progress Note ---
Subjective Date of Service: Jun 05, 2020 Physician Name Tello Cobb Attending Physician Cirilo Rome MD Current Medications Medications (Trade) Dose Ordered Sig/Debi Route PRN Reason Start Time Stop Time Status Last Admin Dose Admin Acetaminophen (Tylenol) 650 mg Q6H PRN GT Mild Pain (Pain Scale 1-3) 06/02/20 03:15 07/02/20 03:14 Amantadine HCl (Symmetrel) 100 mg TWICE A DAY GT 06/02/20 09:00 07/02/20 08:59 06/05/20 09:59 Aspirin (ASA) 81 mg DAILY GT 06/02/20 09:00 07/17/20 08:59 06/05/20 09:59 Dextrose (Dextrose 50%) 25 ml Q30M PRN IV Hypoglycemia 06/04/20 09:45 09/02/20 09:44 Dextrose (Dextrose 50%) 50 ml Q30M PRN IV Hypoglycemia 06/04/20 09:45 09/02/20 09:44 Famotidine (Pepcid) 20 mg BID GT 06/03/20 18:00 09/01/20 17:59 06/05/20 09:59 Heparin Sodium (Porcine) (Heparin 5000 units/ml) 5,000 units EVERY 12 HOURS SUBQ 06/02/20 09:00 07/17/20 08:59 06/05/20 10:00 Insulin Aspart (NovoLOG) EVERY 4 HOURS SUBQ 06/04/20 13:00 09/02/20 12:59 06/05/20 16:31 Insulin Detemir (Levemir) 8 units BEDTIME SUBQ 06/05/20 21:00 09/02/20 09:44 Meropenem 1 gm/ Sodium Chloride 55 ml @ 110 mls/hr Q12HR IVPB 06/03/20 09:00 06/09/20 23:59 06/05/20 10:10 Potassium Chloride (K-Dur) 20 meq TWICE A DAY GT 06/05/20 18:00 09/03/20 17:59 Pravastatin Sodium (Pravachol) 20 mg BEDTIME GT 06/02/20 21:00 07/02/20 20:59 06/04/20 20:31 Sennosides (Senokot) 8.6 mg DAILY GT 06/02/20 09:00 07/02/20 08:59 06/05/20 09:58 Allergies: Coded Allergies: No Known Allergies (Unverified , 08/27/19) ROS Limited/Unobtainable: No Constitutional: Reports: no symptoms HEENT: Reports: no symptoms Cardiovascular: Reports: no symptoms Respiratory: Reports: no symptoms Gastrointestinal/Abdominal: Reports: no symptoms Genitourinary: Reports: no symptoms Neurologic/Psychiatric: Reports: no symptoms Subjective 79 YO M admitted with hyperglycemia and hypernatremia. Now UTI. Cover for Int Dusty-Dr Rmoe Objective Last Vital Signs Date Time Temp Pulse Resp B/P (MAP) Pulse Ox O2 Delivery O2 Flow Rate FiO2 06/05/20 16:00 96.7 80 20 130/71 (90) 98 06/05/20 08:00 Room Air 06/01/20 22:30 3.0 Laboratory Tests Test 06/04/20 17:20 06/04/20 17:22 06/04/20 23:44 06/05/20 08:00 POC Whole Blood Glucose 99 MG/DL (74-106) 101 MG/DL (74-106) 93 MG/DL (74-106) White Blood Count 6.0 K/UL (4.8-10.8) Red Blood Count 3.38 M/UL (4.70-6.10) L Hemoglobin 10.4 G/DL (14.2-18.0) L Hematocrit 32.6 % (42.0-52.0) L Mean Corpuscular Volume 96 FL (80-99) Mean Corpuscular Hemoglobin 30.7 PG (27.0-31.0) Mean Corpuscular Hemoglobin Concent 31.9 G/DL (32.0-36.0) L Red Cell Distribution Width 13.3 % (11.6-14.8) Platelet Count 507 K/UL (150-450) H Mean Platelet Volume 7.4 FL (6.5-10.1) Neutrophils (%) (Auto) 61.2 % (45.0-75.0) Lymphocytes (%) (Auto) 28.4 % (20.0-45.0) Monocytes (%) (Auto) 9.0 % (1.0-10.0) Eosinophils (%) (Auto) 0.5 % (0.0-3.0) Basophils (%) (Auto) 1.0 % (0.0-2.0) Sodium Level 142 MMOL/L (136-145) Potassium Level 3.3 MMOL/L (3.5-5.1) L Chloride Level 107 MMOL/L (98-107) Carbon Dioxide Level 25 MMOL/L (21-32) Anion Gap 10 mmol/L (5-15) Blood Urea Nitrogen 12 mg/dL (7-18) Creatinine 1.0 MG/DL (0.55-1.30) Estimat Glomerular Filtration Rate > 60 mL/min (>60) Glucose Level 148 MG/DL (74-106) #H Calcium Level 9.2 MG/DL (8.5-10.1) Test 06/05/20 10:18 06/05/20 12:05 06/05/20 16:22 POC Whole Blood Glucose 148 MG/DL (74-106) H 191 MG/DL (74-106) H 155 MG/DL (74-106) H Microbiology Date/Time Source Procedure Growth Status 06/03/20 01:00 Urine,Clean Catch Urine Culture - Preliminary NO GROWTH AFTER 24 HOURS Resulted Intake and Output 06/04/20 06/05/20 19:00 07:00 Intake Total 1750 ml 1350 ml Output Total 2850 ml 2000 ml Balance -1100 ml -650 ml IV Total 1050 ml 150 ml Other 700 ml 1200 ml Output Urine Total 2850 ml 2000 ml Objective PHYSICAL EXAMINATION: GENERAL: The patient is a well-developed, well-nourished, thin-appearing, male, in no apparent distress. HEENT: Eyes, pupils equal and responsive to light and accommodation. Extraocular movements are intact. NECK: Supple without lymphadenopathy. CHEST: Lungs are clear to auscultation bilaterally without wheezes or rales. CARDIOVASCULAR: Slightly tachycardic, regular rhythm. S1, S2 are normal without murmurs, rubs, or gallops. ABDOMEN: Soft, nontender, and nondistended. Positive bowel sounds. No evidence of hepatosplenomegaly. Currently, no rebound or guarding noted. EXTREMITIES: Negative for clubbing, cyanosis, or edema. RECTAL: Not performed. GENITAL: Not performed. NEUROLOGIC: Cranial nerves II through XII are grossly intact without focal deficits. Assessment/Plan Assessment/Plan ASSESSMENT: This is a 79-year-old male with: 1. Hyperglycemia. 2. Hypernatremia. 3. Urinary tract infection=MDR proteus. 4. Diabetes type 2. 5. Hypertension. 6. Hypercholesterolemia. 7. Dysphagia. 8. Parkinson disease. 9. Ulcerative proctitis. 10. Protein-calorie malnutrition. 11. History of sacral decubitus ulcer stage IV. 12. Benign prostatic hypertrophy. 13. Gastroesophageal reflux disease. 14. Metabolic encephalopathy. 15. History of left hip fracture. TREATMENT: 1. Hyperglycemia/diabetes. The patient has been placed on a protocol using NovoLog sliding scale. The patient's blood sugars have been running in 300s. Hyperglycemia may be secondary to urinary tract infection. 2. Urinary tract infection. Urine culture =MDR proteus. ABX= meropenem. results.ID=Dr Oliva 3. Hypertension. Continue amlodipine as above. 4. Hypercholesterolemia. Continue atorvastatin as above. 5. Dysphagia. The patient is status post PEG placement. 6. Parkinson disease. Continue amantadine as above. 7. Ulcerative proctitis. 8. Protein-calorie malnutrition. 9. Sacral decubitus ulcer stage IV. 10. Benign prostatic hypertrophy. Continue tamsulosin as above. 11. Gastroesophageal reflux disease. 12. Metabolic encephalopathy. 13. History of left hip fracture. Tello Cobb MD Jun 05, 2020 17:04
--- NOTE | 2020-06-05 17:20 | NUR ---
NURSE NOTES: Adams catheter placed.
--- NOTE | 2020-06-05 18:04 | Pulmonology Progress Note ---
Subjective ROS Limited/Unobtainable: No Constitutional: Denies: no symptoms, fever, chills, fatigue, anorexia, drenching sweats, other HEENT: Repors: no symptoms Respiratory: Reports: no symptoms Allergies: Coded Allergies: No Known Allergies (Unverified , 08/27/19) All Systems: reviewed and negative except above Objective Last 24 Hour Vital Signs Date Time Temp Pulse Resp B/P (MAP) Pulse Ox O2 Delivery O2 Flow Rate FiO2 06/05/20 16:00 96.7 80 20 130/71 (90) 98 06/05/20 12:00 88 06/05/20 11:54 96.9 60 19 129/66 (87) 96 06/05/20 08:00 Room Air 06/05/20 08:00 91 06/05/20 08:00 96.7 88 21 123/94 (104) 95 06/05/20 04:00 105 06/05/20 04:00 Room Air 06/05/20 04:00 97.9 97 20 122/68 (86) 96 06/05/20 00:00 Room Air 06/05/20 00:00 100 06/05/20 00:00 98.8 100 24 129/75 (93) 98 06/04/20 20:00 101 06/04/20 20:00 99.0 100 18 121/73 (89) 99 06/04/20 20:00 Room Air Intake and Output 06/04/20 06/05/20 19:00 07:00 Intake Total 1750 ml 1350 ml Output Total 2850 ml 2000 ml Balance -1100 ml -650 ml IV Total 1050 ml 150 ml Other 700 ml 1200 ml Output Urine Total 2850 ml 2000 ml General Appearance: cachetic HEENT: normocephalic, atraumatic Respiratory: chest wall non-tender, normal breath sounds Cardiovascular: normal peripheral pulses, normal rate Abdomen: soft, non tender, no organomegaly, no scars Skin: no rash Microbiology Date/Time Source Procedure Growth Status 06/03/20 01:00 Urine,Clean Catch Urine Culture - Preliminary NO GROWTH AFTER 24 HOURS Resulted Laboratory Tests 06/04/20 23:44: POC Whole Blood Glucose 93 06/05/20 08:00: White Blood Count 6.0, Red Blood Count 3.38L, Hemoglobin 10.4L, Hematocrit 32.6L , Mean Corpuscular Volume 96, Mean Corpuscular Hemoglobin 30.7, Mean Corpuscular Hemoglobin Concent 31.9L, Red Cell Distribution Width 13.3, Platelet Count 507H, Mean Platelet Volume 7.4, Neutrophils (%) (Auto) 61.2, Lymphocytes (%) (Auto) 28.4, Monocytes (%) (Auto) 9.0, Eosinophils (%) (Auto) 0.5, Basophils (%) (Auto) 1.0, Sodium Level 142, Potassium Level 3.3L, Chloride Level 107, Carbon Dioxide Level 25, Anion Gap 10, Blood Urea Nitrogen 12, Creatinine 1.0, Estimat Glomerular Filtration Rate > 60, Glucose Level 148#H, Calcium Level 9.2 06/05/20 10:18: POC Whole Blood Glucose 148H 06/05/20 12:05: POC Whole Blood Glucose 191H 06/05/20 16:22: POC Whole Blood Glucose 155H Current Medications Medications (Trade) Dose Ordered Sig/Debi Route PRN Reason Start Time Stop Time Status Last Admin Dose Admin Acetaminophen (Tylenol) 650 mg Q6H PRN GT Mild Pain (Pain Scale 1-3) 06/02/20 03:15 07/02/20 03:14 Amantadine HCl (Symmetrel) 100 mg TWICE A DAY GT 06/02/20 09:00 07/02/20 08:59 06/05/20 17:00 Aspirin (ASA) 81 mg DAILY GT 06/02/20 09:00 07/17/20 08:59 06/05/20 09:59 Dextrose (Dextrose 50%) 25 ml Q30M PRN IV Hypoglycemia 06/04/20 09:45 09/02/20 09:44 Dextrose (Dextrose 50%) 50 ml Q30M PRN IV Hypoglycemia 06/04/20 09:45 09/02/20 09:44 Famotidine (Pepcid) 20 mg BID GT 06/03/20 18:00 09/01/20 17:59 06/05/20 17:00 Heparin Sodium (Porcine) (Heparin 5000 units/ml) 5,000 units EVERY 12 HOURS SUBQ 06/02/20 09:00 07/17/20 08:59 06/05/20 10:00 Insulin Aspart (NovoLOG) EVERY 4 HOURS SUBQ 06/04/20 13:00 09/02/20 12:59 06/05/20 16:31 Insulin Detemir (Levemir) 8 units BEDTIME SUBQ 06/05/20 21:00 09/02/20 09:44 Meropenem 1 gm/ Sodium Chloride 55 ml @ 110 mls/hr Q12HR IVPB 06/03/20 09:00 06/09/20 23:59 06/05/20 10:10 Potassium Chloride (K-Dur) 20 meq TWICE A DAY GT 06/05/20 18:00 09/03/20 17:59 Pravastatin Sodium (Pravachol) 20 mg BEDTIME GT 06/02/20 21:00 07/02/20 20:59 06/04/20 20:31 Sennosides (Senokot) 8.6 mg DAILY GT 06/02/20 09:00 07/02/20 08:59 06/05/20 09:58 Assessment/Plan Problems: (1) Sepsis (2) Diabetes mellitus (3) Feeding by G-tube (4) Severe protein-calorie malnutrition (5) Parkinson disease (6) History of hypertension (7) History of CVA (cerebrovascular accident) Assessment/Plan serum Na is normal, DC iv fluid ronqu[place] culture, Urine has proteus,, COVID Negative iv abx iv fluids renal studies urine electrolytes. sliding scale hold feeding for now Latanya Mckeon MD Jun 05, 2020 18:04
--- NOTE | 2020-06-05 19:24 | NUR ---
NURSE HAND-OFF REPORT: Important Events on Shift:[] Patient Status: [] Diet: [] Pending Orders: [] Pending Results/Labs:[] Pending MD notification:[] Latest Vital Signs: Temperature 96.7 , Pulse 92 , B/P 130 /71 , Respiratory Rate 20 , O2 SAT 98 , Room Air, O2 Flow Rate 3.0 . Vital Sign Comment: [] EKG Rhythm: Sinus Rhythm Rhythm change?: N MD Notified?: - MD Response: Latest Lane Fall Score: 70 Fall Risk: High Risk Safety Measures: Call light Within Reach, Bed Alarm Zone 1, Side Rails Side Rails x3, Bed position Low and Locked. Fall Precautions: Yellow Socks Yellow Gown Door Sign Patient Fall Education Report given to JOHNNY Alanis.
--- NOTE | 2020-06-05 19:30 | NUR ---
NURSE NOTES: Patient AAO x2. Breathing regular and unlabored on room air. IV d/c'd not patent, will insert new IV. Free H2O via GT running at 100ml/h as ordered. Adams catheter placed on previous shift for strict I/O. Fall and skin precautions in place, aspiration precautions with HOB at 40 degrees. Bed is locked in lowest position, side rails x2. will continue to monitor pt. Dr Rome was asked re only H20 flush, no feed/held
[2020-06-05 20:00] VITALS: BP 132/72
[2020-06-05] MEDS ORDERED: Levemir Flexpen SUBQ SCH (21:00)
[2020-06-06] VITALS (7 sets, daily range): BP systolic 87–117; BP diastolic 57–74
[2020-06-06] MEDS: NovoLOG Insulin Flexpen SUBQ SCH ×6 (01:00→20:31)
[2020-06-06 06:42] LABS: BASOPHILS % (AUTO) 0.8 % (0.0-2.0); EOSINOPHILS % (AUTO) 0.4 % (0.0-3.0); HEMATOCRIT 39.2 % (42.0-52.0); HEMOGLOBIN 12.3 G/DL (14.2-18.0); LYMPHOCYTES % (AUTO) 28.3 % (20.0-45.0); MEAN CORPUSCULAR VOLUME 97 FL (80-99); MONOCYTES % (AUTO) 7.4 % (1.0-10.0); NEUTROPHILS % (AUTO) 63.1 % (45.0-75.0); PLATELET COUNT 571 K/UL (150-450); RED BLOOD COUNT 4.03 M/UL (4.70-6.10); RED CELL DISTRIBUTION WIDTH 13.6 % (11.6-14.8)
[2020-06-06 06:43] LABS: ALANINE AMINOTRANSFERASE < 6 U/L (12-78); ALBUMIN 2.3 G/DL (3.4-5.0); ALBUMIN/GLOBULIN RATIO 0.3 (1.0-2.7); ALKALINE PHOSPHATASE 158 U/L (46-116); ANION GAP 14 mmol/L (5-15); ASPARTATE AMINO TRANSFERASE 15 U/L (15-37); BILIRUBIN,TOTAL 0.7 MG/DL (0.2-1.0); BLOOD UREA NITROGEN 14 mg/dL (7-18); CALCIUM 9.9 MG/DL (8.5-10.1); CARBON DIOXIDE 24 MMOL/L (21-32); CHLORIDE 108 MMOL/L (98-107); CREATININE 1.2 MG/DL (0.55-1.30); POTASSIUM 3.9 MMOL/L (3.5-5.1); SODIUM 146 MMOL/L (136-145)
--- NOTE | 2020-06-06 06:52 | General Progress Note ---
Assessment/Plan Problem List: (1) Hypernatremia ICD Codes: E87.0 - Hyperosmolality and hypernatremia SNOMED: 706588324 (2) Feeding by G-tube ICD Codes: Z93.1 - Gastrostomy status SNOMED: 983013612, 117604571, 909255048 (3) Diabetes mellitus ICD Codes: E11.9 - Type 2 diabetes mellitus without complications SNOMED: 36638604 (4) History of CVA (cerebrovascular accident) ICD Codes: Z86.73 - Personal history of transient ischemic attack (TIA), and cerebral infarction without residual deficits SNOMED: 519773422 (5) Parkinson disease ICD Codes: G20 - Parkinson's disease SNOMED: 76530597 Assessment/Plan: DC Levemir continue Novolog sliding scale high dose every 4 hours continue to hold Metformin due to lactic acidosis on presentation Subjective ROS Limited/Unobtainable: Yes Allergies: Coded Allergies: No Known Allergies (Unverified , 08/27/19) Subjective events noted - interval notes reviewed glucose values improved did not require the Levemir Item Value Date Time Bedside Blood Glucose 134 mg/dl H 06/06/20 0500 Bedside Blood Glucose 141 mg/dl H 06/06/20 0100 Bedside Blood Glucose 86 mg/dl 06/05/20 2100 Bedside Blood Glucose 155 mg/dl H 06/05/20 1631 Bedside Blood Glucose 191 mg/dl H 06/05/20 1256 Bedside Blood Glucose 148 mg/dl H 06/05/20 0900 Bedside Blood Glucose 96 mg/dl 06/05/20 0616 Bedside Blood Glucose 93 mg/dl 06/05/20 0100 Objective Last 24 Hour Vital Signs Date Time Temp Pulse Resp B/P (MAP) Pulse Ox O2 Delivery O2 Flow Rate FiO2 06/06/20 04:00 92 06/06/20 04:00 98.1 91 19 116/69 (85) 98 06/06/20 00:00 92 06/06/20 00:00 97.9 98 19 115/71 (86) 98 06/05/20 21:00 Room Air 06/05/20 20:00 97.9 92 19 132/72 (92) 96 06/05/20 20:00 94 06/05/20 16:00 92 06/05/20 16:00 96.7 80 20 130/71 (90) 98 06/05/20 12:00 88 06/05/20 11:54 96.9 60 19 129/66 (87) 96 06/05/20 08:00 Room Air 06/05/20 08:00 91 06/05/20 08:00 96.7 88 21 123/94 (104) 95 Intake and Output 06/05/20 06/06/20 19:00 07:00 Intake Total 2500 ml 1100 ml Output Total 600 ml 1600 ml Balance 1900 ml -500 ml IV Total 1200 ml Other 1300 ml 1100 ml Output Urine Total 600 ml 1600 ml # Voids 2 Laboratory Tests 06/05/20 08:00: White Blood Count 6.0, Red Blood Count 3.38L, Hemoglobin 10.4L, Hematocrit 32.6L , Mean Corpuscular Volume 96, Mean Corpuscular Hemoglobin 30.7, Mean Corpuscular Hemoglobin Concent 31.9L, Red Cell Distribution Width 13.3, Platelet Count 507H, Mean Platelet Volume 7.4, Neutrophils (%) (Auto) 61.2, Lymphocytes (%) (Auto) 28.4, Monocytes (%) (Auto) 9.0, Eosinophils (%) (Auto) 0.5, Basophils (%) (Auto) 1.0, Sodium Level 142, Potassium Level 3.3L, Chloride Level 107, Carbon Dioxide Level 25, Anion Gap 10, Blood Urea Nitrogen 12, Creatinine 1.0, Estimat Glomerular Filtration Rate > 60, Glucose Level 148#H, Calcium Level 9.2 06/05/20 10:18: POC Whole Blood Glucose 148H 06/05/20 12:05: POC Whole Blood Glucose 191H 06/05/20 16:22: POC Whole Blood Glucose 155H 06/05/20 21:27: POC Whole Blood Glucose 86 06/06/20 01:15: POC Whole Blood Glucose 141H 06/06/20 06:07: White Blood Count [Pending], Red Blood Count [Pending], Hemoglobin [Pending], Hematocrit [Pending], Mean Corpuscular Volume [Pending], Mean Corpuscular Hemoglobin [Pending], Mean Corpuscular Hemoglobin Concent [Pending], Red Cell Distribution Width [Pending], Platelet Count [Pending], Mean Platelet Volume [ Pending], Neutrophils (%) (Auto) [Pending], Lymphocytes (%) (Auto) [Pending], Monocytes (%) (Auto) [Pending], Eosinophils (%) (Auto) [Pending], Basophils (%) (Auto) [Pending], Sodium Level [Pending], Potassium Level [Pending], Chloride Level [Pending], Carbon Dioxide Level [Pending], Blood Urea Nitrogen [Pending], Creatinine [Pending], Estimat Glomerular Filtration Rate [Pending], Glucose Level [Pending], Calcium Level [Pending], Total Bilirubin [Pending], Aspartate Amino Transf (AST/SGOT) [Pending], Alanine Aminotransferase (ALT/SGPT) [Pending] , Alkaline Phosphatase [Pending], Total Protein [Pending], Albumin [Pending], Globulin [Pending] Height (Feet): 5 Height (Inches): 5.00 Weight (Pounds): 123 General Appearance: no apparent distress Neck: normal alignment Cardiovascular: normal rate Respiratory/Chest: decreased breath sounds Abdomen: normal bowel sounds, other - PEG Objective Current Medications Medications (Trade) Dose Ordered Sig/Debi Route PRN Reason Start Time Stop Time Status Last Admin Dose Admin Acetaminophen (Tylenol) 650 mg Q6H PRN GT Mild Pain (Pain Scale 1-3) 06/02/20 03:15 07/02/20 03:14 Amantadine HCl (Symmetrel) 100 mg TWICE A DAY GT 06/02/20 09:00 07/02/20 08:59 06/05/20 17:00 Aspirin (ASA) 81 mg DAILY GT 06/02/20 09:00 07/17/20 08:59 06/05/20 09:59 Dextrose (Dextrose 50%) 25 ml Q30M PRN IV Hypoglycemia 06/04/20 09:45 09/02/20 09:44 Dextrose (Dextrose 50%) 50 ml Q30M PRN IV Hypoglycemia 06/04/20 09:45 09/02/20 09:44 Famotidine (Pepcid) 20 mg BID GT 06/03/20 18:00 09/01/20 17:59 06/05/20 17:00 Heparin Sodium (Porcine) (Heparin 5000 units/ml) 5,000 units EVERY 12 HOURS SUBQ 06/02/20 09:00 07/17/20 08:59 06/05/20 22:39 Insulin Aspart (NovoLOG) EVERY 4 HOURS SUBQ 06/04/20 13:00 09/02/20 12:59 06/05/20 16:31 Insulin Detemir (Levemir) 8 units BEDTIME SUBQ 06/05/20 21:00 09/02/20 09:44 Meropenem 1 gm/ Sodium Chloride 55 ml @ 110 mls/hr Q12HR IVPB 06/03/20 09:00 06/09/20 23:59 06/05/20 22:38 Potassium Chloride (K-Dur) 20 meq TWICE A DAY GT 06/05/20 18:00 09/03/20 17:59 06/05/20 18:08 Pravastatin Sodium (Pravachol) 20 mg BEDTIME GT 06/02/20 21:00 07/02/20 20:59 06/05/20 22:38 Sennosides (Senokot) 8.6 mg DAILY GT 06/02/20 09:00 07/02/20 08:59 06/05/20 09:58 Gregory Pastrana MD Jun 06, 2020 06:52
--- NOTE | 2020-06-06 08:01 | NUR ---
NURSE HAND-OFF REPORT: Important Events on Shift: diaphoretic but VS stable throughout night, last blood sugar was 134, 150 on am labs Patient Status: at change of shift- hypotensive and diaphoretic Diet:- Pending Orders: CBC, CMP Pending Results/Labs:CBC, CMP Latest Vital Signs: Temperature 98.1 , Pulse 91 , B/P 116 /69 , Respiratory Rate 19 , O2 SAT 98 , Room Air, O2 Flow Rate 3.0 . Vital Sign Comment: VSS over night pt was however diaphoretic, VS however at change of shift - pt became hypotensive, Dr Mckeon notified and ordered D 51/2 NS bolus x1. Endorsed to day shift EKG Rhythm: Sinus Tachycardia Rhythm change?: N/Y Notified?: Y -Dr Wild PERKINS Response: Message left await call, 1 PVC, one episode of [facility] [address] Fall Score: 70 Fall Risk: High Risk Safety Measures: Call light Within Reach, Bed Alarm Zone 1, Side Rails Side Rails x3, Bed position Low and Locked. Fall Precautions and aspiration precautions HOB > 30 Yellow Socks Yellow Gown Door Sign Patient Fall Education Report given to JOHNNY Mendez.
--- NOTE | 2020-06-06 08:10 | NUR ---
NURSE NOTES: Received Pt from JOHNNY Hess. Pt is AOx2. Pt diaphoretic, and blood pressure low, 88/58. Dr Mckeon was notified at this time and ordered d51/2ns bolus. Order acknowledged and carried out. Breathing even and unlabored. Pt R sided facial droop. Pt IV on R hand 22g running d51/2ns bolus; asymptomatic and intact. Adams 16fr draining clear yellow urine. Sacrum has a healing wound, hypopigmentation. Pt is bed bound, generalized weakness. Pt bed low and locked, call light in reach, and bed alarm on. Will continue to monitor. Addendum: 06/06/20 at 1110 by Vanessa Brannon RN RN After bolus of d51/2ns, Pt vitals stable. BP 128/76. No s/s or complaints of distress at this time.
[2020-06-06] MEDS: Sennosides 8.6mg tab GT SCH (09:07)
[2020-06-06] MEDS: Aspirin Baby 81mg GT SCH (09:07)
[2020-06-06] MEDS: Heparin 5000 units/ml inj SUBQ SCH ×2 (09:08→20:30)
[2020-06-06] MEDS ORDERED: D5 1/2NS 1,000 ML IV SCH (09:15)
[2020-06-06] MEDS: Amantadine 100mg cap GT SCH ×2 (09:23→17:19)
[2020-06-06] MEDS: Meropenem 1gm in NS 55ml IVPB SCH (09:23)
--- NOTE | 2020-06-06 10:58 | Nephrology Progress Note ---
Assessment/Plan Problem List: (1) Hypernatremia (2) Sepsis (3) History of CVA (cerebrovascular accident) (4) Parkinson disease (5) Feeding by G-tube (6) Dehydration Assessment KELLY, resolving, serum creatinine of 1.9 now down to 1.2 Hypernatremia, dehydration, free water deficit Sepsis Diabetes mellitus [id number] GT feeding Severe protein calorie malnutrition History of CVA History of hypertension Parkinson's disease Plan June 06: We will again discontinue the IV ordered. Stable from renal standpoint of view. Will start midodrine for low blood pressure. June 05: DC IV fluid. Potassium supplement given. Stable from renal standpoint to view. June 04: Potassium and magnesium supplement IV given, stable from renal standpoint of view. IV fluid D5W Monitor electrolytes Monitor renal parameters Hold blood pressure medication since blood pressure low Per orders, per consultants Subjective ROS Limited/Unobtainable: No Objective Objective Last 24 Hour Vital Signs Date Time Temp Pulse Resp B/P (MAP) Pulse Ox O2 Delivery O2 Flow Rate FiO2 06/06/20 08:40 Room Air 06/06/20 08:00 100 06/06/20 08:00 96.8 66 20 87/57 (67) 100 06/06/20 04:00 92 06/06/20 04:00 98.1 91 19 116/69 (85) 98 06/06/20 00:00 92 06/06/20 00:00 97.9 98 19 115/71 (86) 98 06/05/20 21:00 Room Air 06/05/20 20:00 97.9 92 19 132/72 (92) 96 06/05/20 20:00 94 06/05/20 16:00 92 06/05/20 16:00 96.7 80 20 130/71 (90) 98 06/05/20 12:00 88 06/05/20 11:54 96.9 60 19 129/66 (87) 96 Intake and Output 06/05/20 06/06/20 19:00 07:00 Intake Total 2500 ml 1100 ml Output Total 600 ml 1600 ml Balance 1900 ml -500 ml IV Total 1200 ml Other 1300 ml 1100 ml Output Urine Total 600 ml 1600 ml # Voids 2 Laboratory Tests 06/05/20 12:05: POC Whole Blood Glucose 191H 06/05/20 16:22: POC Whole Blood Glucose 155H 06/05/20 21:27: POC Whole Blood Glucose 86 06/06/20 01:15: POC Whole Blood Glucose 141H 06/06/20 06:07: White Blood Count 7.0, Red Blood Count 4.03L, Hemoglobin 12.3L, Hematocrit 39.2L , Mean Corpuscular Volume 97, Mean Corpuscular Hemoglobin 30.4, Mean Corpuscular Hemoglobin Concent 31.3L, Red Cell Distribution Width 13.6, Platelet Count 571H, Mean Platelet Volume 7.7, Neutrophils (%) (Auto) 63.1, Lymphocytes (%) (Auto) 28.3, Monocytes (%) (Auto) 7.4, Eosinophils (%) (Auto) 0.4, Basophils (%) (Auto) 0.8, Sodium Level 146H, Potassium Level 3.9, Chloride Level 108H, Carbon Dioxide Level 24, Anion Gap 14, Blood Urea Nitrogen 14, Creatinine 1.2, Estimat Glomerular Filtration Rate > 60, Glucose Level 151H, Calcium Level 9.9, Total Bilirubin 0.7, Aspartate Amino Transf (AST/SGOT) 15, Alanine Aminotransferase (ALT/SGPT) < 6L, Alkaline Phosphatase 158H, Total Protein 9.2H, Albumin 2.3L, Globulin 6.9, Albumin/Globulin Ratio 0.3L 06/06/20 09:10: POC Whole Blood Glucose 189H Height (Feet): 5 Height (Inches): 5.00 Weight (Pounds): 123 General Appearance: no apparent distress Cardiovascular: other - Variable rate Abdomen: distended Objective No change Eddie Nelson MD Jun 06, 2020 10:58
--- NOTE | 2020-06-06 12:09 | Surgery Progress Note ---
Surgery Progress Note Subjective Additional Comments no acute events comfortable no complaints labs reviewed exam stable Objective Last 24 Hour Vital Signs Date Time Temp Pulse Resp B/P (MAP) Pulse Ox O2 Delivery O2 Flow Rate FiO2 06/06/20 08:40 Room Air 06/06/20 08:00 100 06/06/20 08:00 96.8 66 20 87/57 (67) 100 06/06/20 04:00 92 06/06/20 04:00 98.1 91 19 116/69 (85) 98 06/06/20 00:00 92 06/06/20 00:00 97.9 98 19 115/71 (86) 98 06/05/20 21:00 Room Air 06/05/20 20:00 97.9 92 19 132/72 (92) 96 06/05/20 20:00 94 06/05/20 16:00 92 06/05/20 16:00 96.7 80 20 130/71 (90) 98 I&O Intake and Output 06/05/20 06/06/20 19:00 07:00 Intake Total 2500 ml 1100 ml Output Total 600 ml 1600 ml Balance 1900 ml -500 ml IV Total 1200 ml Other 1300 ml 1100 ml Output Urine Total 600 ml 1600 ml # Voids 2 Dressing: saturated Cardiovascular: RSR Respiratory: decreased breath sounds Abdomen: soft, non-tender, present bowel sounds Extremities: no edema, no tenderness, no cyanosis Laboratory Tests Test 06/05/20 16:22 06/05/20 21:27 06/06/20 01:15 06/06/20 06:07 POC Whole Blood Glucose 155 MG/DL (74-106) H 86 MG/DL (74-106) 141 MG/DL (74-106) H White Blood Count 7.0 K/UL (4.8-10.8) Red Blood Count 4.03 M/UL (4.70-6.10) L Hemoglobin 12.3 G/DL (14.2-18.0) L Hematocrit 39.2 % (42.0-52.0) L Mean Corpuscular Volume 97 FL (80-99) Mean Corpuscular Hemoglobin 30.4 PG (27.0-31.0) Mean Corpuscular Hemoglobin Concent 31.3 G/DL (32.0-36.0) L Red Cell Distribution Width 13.6 % (11.6-14.8) Platelet Count 571 K/UL (150-450) H Mean Platelet Volume 7.7 FL (6.5-10.1) Neutrophils (%) (Auto) 63.1 % (45.0-75.0) Lymphocytes (%) (Auto) 28.3 % (20.0-45.0) Monocytes (%) (Auto) 7.4 % (1.0-10.0) Eosinophils (%) (Auto) 0.4 % (0.0-3.0) Basophils (%) (Auto) 0.8 % (0.0-2.0) Sodium Level 146 MMOL/L (136-145) H Potassium Level 3.9 MMOL/L (3.5-5.1) Chloride Level 108 MMOL/L (98-107) H Carbon Dioxide Level 24 MMOL/L (21-32) Anion Gap 14 mmol/L (5-15) Blood Urea Nitrogen 14 mg/dL (7-18) Creatinine 1.2 MG/DL (0.55-1.30) Estimat Glomerular Filtration Rate > 60 mL/min (>60) Glucose Level 151 MG/DL (74-106) H Calcium Level 9.9 MG/DL (8.5-10.1) Total Bilirubin 0.7 MG/DL (0.2-1.0) Aspartate Amino Transf (AST/SGOT) 15 U/L (15-37) Alanine Aminotransferase (ALT/SGPT) < 6 U/L (12-78) L Alkaline Phosphatase 158 U/L (46-116) H Total Protein 9.2 G/DL (6.4-8.2) H Albumin 2.3 G/DL (3.4-5.0) L Globulin 6.9 g/dL Albumin/Globulin Ratio 0.3 (1.0-2.7) L Test 06/06/20 09:10 POC Whole Blood Glucose 189 MG/DL (74-106) H Plan Problems: (1) Hypernatremia (2) Dehydration (3) Hip fracture, left (4) Diabetes mellitus (5) History of hypertension (6) Severe protein-calorie malnutrition Assessment & Plan: DAILY ESTIMATED NEEDS: Needs based on Sepsis, DM/ 54kg 30-40 kcals/kg 9246-4006 total kcals 1.25-2 g protein/kg 68-108 g total protein 25-35ml/kcal mL/kg 5982-8087 total fluid mLs NUTRITION DIAGNOSIS: * Swallowing difficulty R/T dysphagia, as evidenced by Pt is GT dep. (CURRENT TF: Glucerna 1.5 @ 30ml/hr x 24 hrs) ENTERAL NUTRITION RECOMMENDATIONS: Glucerna 1.5 @ 60ml/hr x 20 hrs to provide 1200ml, 1800kcal, 99g prot, 911ml free water, 160g carbs * Rec to INCREASE TF GOAL to 60ml/hr for 20 hrs * HOB over 30 degrees, increased water flushes * TF at goal meets 100% est needs. -------- ADDITIONAL RECOMMENDATIONS: * Calibrated bedscale wt for accurate CBW * Monitor lytes daily w/ TF, replete as needed * Pt may require increase in insulin regimen for improved BG W/ continuous TF infusion * Wound healing: DOMENICA BID, F/up w/ WC eval . (7) Acute encephalopathy (8) Pressure Ulcer Of Sacral Region, Unstageable Assessment & Plan: Pt presented on admission with purple and indurated area at Sacrococcygeal at previously compromised site(L)7cm x (W)3cm.Surrounding Hyperpigmentation at Sacrum. Non-Blanching erythema without fluctuance R heel. Non-Blanching erythema with delineated margins L heel (L)4.5cm x (W)5.5cm. L Heel is boggy . Tx.Plan: Apply Moisture Barrier Paste to Sacrum. Cover with Optifoam drsgs. Change every 3 days and prn. Apply Cavilon Skin Barrier to R and L trochanter. Cover each site with Optifoam drsgs. Change every 7 days and prn. Apply Cavilon Skin Barrier to each heel and malleoli. Cover each site with Optifoam drsgs. Change every 7 days and prn. Reposition at least every 2hours or as tolerated. Off-load heels with pillow. (9) Feeding by G-tube (10) Abdominal distention (11) Multiple drug resistant organism (MDRO) culture positive (12) Sepsis (13) History of CVA (cerebrovascular accident) (14) Parkinson disease James Breen Jun 06, 2020 12:09
--- NOTE | 2020-06-06 12:34 | Pulmonology Progress Note ---
Subjective ROS Limited/Unobtainable: No Constitutional: Denies: no symptoms, fever, chills, fatigue, anorexia, drenching sweats, other HEENT: Repors: no symptoms Respiratory: Reports: no symptoms Allergies: Coded Allergies: No Known Allergies (Unverified , 08/27/19) All Systems: reviewed and negative except above Objective Last 24 Hour Vital Signs Date Time Temp Pulse Resp B/P (MAP) Pulse Ox O2 Delivery O2 Flow Rate FiO2 06/06/20 12:00 96.6 82 20 115/66 (82) 100 06/06/20 08:40 Room Air 06/06/20 08:00 100 06/06/20 08:00 96.8 66 20 87/57 (67) 100 06/06/20 04:00 92 06/06/20 04:00 98.1 91 19 116/69 (85) 98 06/06/20 00:00 92 06/06/20 00:00 97.9 98 19 115/71 (86) 98 06/05/20 21:00 Room Air 06/05/20 20:00 97.9 92 19 132/72 (92) 96 06/05/20 20:00 94 06/05/20 16:00 92 06/05/20 16:00 96.7 80 20 130/71 (90) 98 Intake and Output 06/05/20 06/06/20 19:00 07:00 Intake Total 2500 ml 1100 ml Output Total 600 ml 1600 ml Balance 1900 ml -500 ml IV Total 1200 ml Other 1300 ml 1100 ml Output Urine Total 600 ml 1600 ml # Voids 2 General Appearance: cachetic HEENT: normocephalic, atraumatic Respiratory: chest wall non-tender, normal breath sounds Cardiovascular: normal peripheral pulses, normal rate Abdomen: soft, non tender, no organomegaly, no scars Skin: no rash Laboratory Tests 06/05/20 16:22: POC Whole Blood Glucose 155H 06/05/20 21:27: POC Whole Blood Glucose 86 06/06/20 01:15: POC Whole Blood Glucose 141H 06/06/20 06:07: White Blood Count 7.0, Red Blood Count 4.03L, Hemoglobin 12.3L, Hematocrit 39.2L , Mean Corpuscular Volume 97, Mean Corpuscular Hemoglobin 30.4, Mean Corpuscular Hemoglobin Concent 31.3L, Red Cell Distribution Width 13.6, Platelet Count 571H, Mean Platelet Volume 7.7, Neutrophils (%) (Auto) 63.1, Lymphocytes (%) (Auto) 28.3, Monocytes (%) (Auto) 7.4, Eosinophils (%) (Auto) 0.4, Basophils (%) (Auto) 0.8, Sodium Level 146H, Potassium Level 3.9, Chloride Level 108H, Carbon Dioxide Level 24, Anion Gap 14, Blood Urea Nitrogen 14, Creatinine 1.2, Estimat Glomerular Filtration Rate > 60, Glucose Level 151H, Calcium Level 9.9, Total Bilirubin 0.7, Aspartate Amino Transf (AST/SGOT) 15, Alanine Aminotransferase (ALT/SGPT) < 6L, Alkaline Phosphatase 158H, Total Protein 9.2H, Albumin 2.3L, Globulin 6.9, Albumin/Globulin Ratio 0.3L 06/06/20 09:10: POC Whole Blood Glucose 189H Current Medications Medications (Trade) Dose Ordered Sig/Debi Route PRN Reason Start Time Stop Time Status Last Admin Dose Admin Acetaminophen (Tylenol) 650 mg Q6H PRN GT Mild Pain (Pain Scale 1-3) 06/02/20 03:15 07/02/20 03:14 Amantadine HCl (Symmetrel) 100 mg TWICE A DAY GT 06/02/20 09:00 07/02/20 08:59 06/06/20 09:23 Aspirin (ASA) 81 mg DAILY GT 06/02/20 09:00 07/17/20 08:59 06/06/20 09:07 Dextrose (Dextrose 50%) 25 ml Q30M PRN IV Hypoglycemia 06/04/20 09:45 09/02/20 09:44 Dextrose (Dextrose 50%) 50 ml Q30M PRN IV Hypoglycemia 06/04/20 09:45 09/02/20 09:44 Famotidine (Pepcid) 20 mg BID GT 06/03/20 18:00 09/01/20 17:59 06/06/20 09:07 Heparin Sodium (Porcine) (Heparin 5000 units/ml) 5,000 units EVERY 12 HOURS SUBQ 06/02/20 09:00 07/17/20 08:59 06/06/20 09:08 Insulin Aspart (NovoLOG) EVERY 4 HOURS SUBQ 06/04/20 13:00 09/02/20 12:59 06/06/20 09:12 Meropenem 1 gm/ Sodium Chloride 55 ml @ 110 mls/hr Q12HR IVPB 06/03/20 09:00 06/09/20 23:59 06/06/20 09:23 Midodrine (Pro-Amatine) 2.5 mg THREE TIMES A DAY ORAL 06/06/20 11:00 09/04/20 10:59 Potassium Chloride (K-Dur) 20 meq TWICE A DAY GT 06/05/20 18:00 09/03/20 17:59 06/06/20 09:07 Pravastatin Sodium (Pravachol) 20 mg BEDTIME GT 06/02/20 21:00 07/02/20 20:59 06/05/20 22:38 Sennosides (Senokot) 8.6 mg DAILY GT 06/02/20 09:00 07/02/20 08:59 06/06/20 09:07 Assessment/Plan Problems: (1) Sepsis (2) Diabetes mellitus (3) Feeding by G-tube (4) Severe protein-calorie malnutrition (5) Parkinson disease (6) History of hypertension (7) History of CVA (cerebrovascular accident) Assessment/Plan Improving ronquillo culture, Urine has proteus,, COVID Negative iv abx iv fluids renal studies urine electrolytes. sliding scale Latanya Mckeon MD Jun 06, 2020 12:34
--- NOTE | 2020-06-06 13:34 | Internal Med Progress Note ---
Subjective Date of Service: Jun 06, 2020 Physician Name JordynTello Attending Physician Cirilo Rome MD Current Medications Medications (Trade) Dose Ordered Sig/Debi Route PRN Reason Start Time Stop Time Status Last Admin Dose Admin Acetaminophen (Tylenol) 650 mg Q6H PRN GT Mild Pain (Pain Scale 1-3) 06/02/20 03:15 07/02/20 03:14 Amantadine HCl (Symmetrel) 100 mg TWICE A DAY GT 06/02/20 09:00 07/02/20 08:59 06/06/20 09:23 Aspirin (ASA) 81 mg DAILY GT 06/02/20 09:00 07/17/20 08:59 06/06/20 09:07 Dextrose (Dextrose 50%) 25 ml Q30M PRN IV Hypoglycemia 06/04/20 09:45 09/02/20 09:44 Dextrose (Dextrose 50%) 50 ml Q30M PRN IV Hypoglycemia 06/04/20 09:45 09/02/20 09:44 Famotidine (Pepcid) 20 mg BID GT 06/03/20 18:00 09/01/20 17:59 06/06/20 09:07 Heparin Sodium (Porcine) (Heparin 5000 units/ml) 5,000 units EVERY 12 HOURS SUBQ 06/02/20 09:00 07/17/20 08:59 06/06/20 09:08 Insulin Aspart (NovoLOG) EVERY 4 HOURS SUBQ 06/04/20 13:00 09/02/20 12:59 06/06/20 09:12 Meropenem 1 gm/ Sodium Chloride 55 ml @ 110 mls/hr Q12HR IVPB 06/03/20 09:00 06/09/20 23:59 06/06/20 09:23 Midodrine (Pro-Amatine) 2.5 mg THREE TIMES A DAY ORAL 06/06/20 11:00 09/04/20 10:59 06/06/20 13:26 Potassium Chloride (K-Dur) 20 meq TWICE A DAY GT 06/05/20 18:00 09/03/20 17:59 06/06/20 09:07 Pravastatin Sodium (Pravachol) 20 mg BEDTIME GT 06/02/20 21:00 07/02/20 20:59 06/05/20 22:38 Sennosides (Senokot) 8.6 mg DAILY GT 06/02/20 09:00 07/02/20 08:59 06/06/20 09:07 Allergies: Coded Allergies: No Known Allergies (Unverified , 08/27/19) ROS Limited/Unobtainable: Yes Subjective 79 YO M admitted with hyperglycemia and hypernatremia. Now UTI. Cover for Int Dusty-Dr Rome Objective Last Vital Signs Date Time Temp Pulse Resp B/P (MAP) Pulse Ox O2 Delivery O2 Flow Rate FiO2 06/06/20 12:00 96.6 82 20 115/66 (82) 100 06/06/20 08:40 Room Air 06/01/20 22:30 3.0 Laboratory Tests Test 06/05/20 16:22 06/05/20 21:27 06/06/20 01:15 06/06/20 06:07 POC Whole Blood Glucose 155 MG/DL (74-106) H 86 MG/DL (74-106) 141 MG/DL (74-106) H White Blood Count 7.0 K/UL (4.8-10.8) Red Blood Count 4.03 M/UL (4.70-6.10) L Hemoglobin 12.3 G/DL (14.2-18.0) L Hematocrit 39.2 % (42.0-52.0) L Mean Corpuscular Volume 97 FL (80-99) Mean Corpuscular Hemoglobin 30.4 PG (27.0-31.0) Mean Corpuscular Hemoglobin Concent 31.3 G/DL (32.0-36.0) L Red Cell Distribution Width 13.6 % (11.6-14.8) Platelet Count 571 K/UL (150-450) H Mean Platelet Volume 7.7 FL (6.5-10.1) Neutrophils (%) (Auto) 63.1 % (45.0-75.0) Lymphocytes (%) (Auto) 28.3 % (20.0-45.0) Monocytes (%) (Auto) 7.4 % (1.0-10.0) Eosinophils (%) (Auto) 0.4 % (0.0-3.0) Basophils (%) (Auto) 0.8 % (0.0-2.0) Sodium Level 146 MMOL/L (136-145) H Potassium Level 3.9 MMOL/L (3.5-5.1) Chloride Level 108 MMOL/L (98-107) H Carbon Dioxide Level 24 MMOL/L (21-32) Anion Gap 14 mmol/L (5-15) Blood Urea Nitrogen 14 mg/dL (7-18) Creatinine 1.2 MG/DL (0.55-1.30) Estimat Glomerular Filtration Rate > 60 mL/min (>60) Glucose Level 151 MG/DL (74-106) H Calcium Level 9.9 MG/DL (8.5-10.1) Total Bilirubin 0.7 MG/DL (0.2-1.0) Aspartate Amino Transf (AST/SGOT) 15 U/L (15-37) Alanine Aminotransferase (ALT/SGPT) < 6 U/L (12-78) L Alkaline Phosphatase 158 U/L (46-116) H Total Protein 9.2 G/DL (6.4-8.2) H Albumin 2.3 G/DL (3.4-5.0) L Globulin 6.9 g/dL Albumin/Globulin Ratio 0.3 (1.0-2.7) L Test 06/06/20 09:10 06/06/20 12:38 POC Whole Blood Glucose 189 MG/DL (74-106) H 115 MG/DL (74-106) H Intake and Output 06/05/20 06/06/20 19:00 07:00 Intake Total 2500 ml 1100 ml Output Total 600 ml 1600 ml Balance 1900 ml -500 ml IV Total 1200 ml Other 1300 ml 1100 ml Output Urine Total 600 ml 1600 ml # Voids 2 Objective PHYSICAL EXAMINATION: GENERAL: The patient is a well-developed, well-nourished, thin-appearing, male, in no apparent distress. HEENT: Eyes, pupils equal and responsive to light and accommodation. Extraocular movements are intact. NECK: Supple without lymphadenopathy. CHEST: Lungs are clear to auscultation bilaterally without wheezes or rales. CARDIOVASCULAR: Slightly tachycardic, regular rhythm. S1, S2 are normal without murmurs, rubs, or gallops. ABDOMEN: Soft, nontender, and nondistended. Positive bowel sounds. No evidence of hepatosplenomegaly. Currently, no rebound or guarding noted. EXTREMITIES: Negative for clubbing, cyanosis, or edema. RECTAL: Not performed. GENITAL: Not performed. NEUROLOGIC: Cranial nerves II through XII are grossly intact without focal deficits. Assessment/Plan Assessment/Plan ASSESSMENT: This is a 79-year-old male with: 1. Hyperglycemia. 2. Hypernatremia. 3. Urinary tract infection=MDR proteus. 4. Diabetes type 2. 5. Hypertension. 6. Hypercholesterolemia. 7. Dysphagia. 8. Parkinson disease. 9. Ulcerative proctitis. 10. Protein-calorie malnutrition. 11. History of sacral decubitus ulcer stage IV. 12. Benign prostatic hypertrophy. 13. Gastroesophageal reflux disease. 14. Metabolic encephalopathy. 15. History of left hip fracture. TREATMENT: 1. Hyperglycemia/diabetes. The patient has been placed on a protocol using NovoLog sliding scale. The patient's blood sugars have been running in 300s. Hyperglycemia may be secondary to urinary tract infection. 2. Urinary tract infection. Urine culture =MDR proteus. ABX= meropenem. results.ID=Dr Oliva 3. Hypertension. Continue amlodipine as above. 4. Hypercholesterolemia. Continue atorvastatin as above. 5. Dysphagia. The patient is status post PEG placement. 6. Parkinson disease. Continue amantadine as above. 7. Ulcerative proctitis. 8. Protein-calorie malnutrition. 9. Sacral decubitus ulcer stage IV. 10. Benign prostatic hypertrophy. Continue tamsulosin as above. 11. Gastroesophageal reflux disease. 12. Metabolic encephalopathy. 13. History of left hip fracture. Tello Cobb MD Jun 06, 2020 13:34
--- NOTE | 2020-06-06 15:42 | NUR ---
CASE MANAGEMENT:REVIEW 06/06/20 SI: SEPSIS BP~87/57 IS: IVF 1L @200/HR IV MEROPENEM Q12 : TELEMETRY DCP: FROM [facility] INTERQUAL CRITERIA MET
--- NOTE | 2020-06-06 16:03 | NUR ---
TRANSFER TO FLOOR: Patient transferred to [med surg 4E], per [Md]. Report given to [JOHNNY Roldan]. Belongings and medications given.Pt stable.
--- NOTE | 2020-06-06 16:21 | NUR ---
person to contact notified. Marcelino Castellanos
--- NOTE | 2020-06-06 16:36 | NUR ---
NURSE NOTES: Report received from Vanessa TURNER. Patient transferred from Tele room 221-2. Patient is Axox2, not in distress, no outward sx of pain. PIV on right hand patent and intact. Gtube patent and infusing Nepro currently at 50ml/hr with goal of 80ml/hr, nurse reports no residuals so far. Adams cath secured and draining yellowish output. Full body check done, noted healed pressure injury on the sacral area. Optifoam placed on sacrum and bilateral heels for prophylaxis. Pt is on a low air loss mattress. Pt is incontinent and bedbound. Bed low and locked, siderails x2, call light placed within reach and instructed to call nurse for assistance. Will continue to monitor.
--- NOTE | 2020-06-06 19:21 | NUR ---
NURSE HAND-OFF: Important Events on Shift: Pt transfered from Tele; restarted Gtube feeds as per Tele nurse in AM, titrate to reach goal of 80ml/hr, no residuals Patient Status: Stable Diet: Nepro 1.8 Pending Orders: N/A Pending Results/Labs:N/A Pending MD notification:N/A Latest Vital Signs: Temperature 97.1 , Pulse 98 , B/P 108 /63 , Respiratory Rate 20 , O2 SAT 18 , Room Air, O2 Flow Rate 3.0 . Vital Sign Comment: Latest Lane Fall Score: 70 Fall Risk: High Risk Safety Measures: Call light Within Reach, Bed Alarm Zone 1, Side Rails Side Rails x3, Bed position Low and Locked. Fall Precautions: Yellow Socks Yellow Gown Door Sign Patient Fall Education Report given to Basia TURNER.
--- NOTE | 2020-06-06 20:15 | NUR ---
NURSE NOTES: Received patient awake, follows simple command, no SOB, tolerating his g-tube feeding well.
--- NOTE | 2020-06-06 20:16 | Infectious Diseases Prog Note ---
Assessment/Plan 79yo M with: Fever, SP Leukocytosis, SP KELLY, improving UTI 06/01 UA w/ pyuria, UCx + P Mirabilis ESBL 06/01 BCx NTD 06/01 CXR: No acute process COVID rapid test neg H/o ESBL Proteus in UCx in Oct 2019 Renal US w/ BL cysts PMH: DM2 Parkinson's dementia Bedridden G-tube Plan: Cont meropenem #4 /10 F/u BCx, MRSA nares 06/02 SP erta #1 06/01 SP cefepime, vanco, flagyl x1 in ED Monitor CBC/BMP Trend leukocytosis, KELLY Trend hemodynamics, temp curve D/w RN Thank you for this consult. [facility] will continue to follow. Subjective Allergies: Coded Allergies: No Known Allergies (Unverified , 08/27/19) afebrile >72hrs no leuckocytosis Bcx NTD Objective Last 24 Hour Vital Signs Date Time Temp Pulse Resp B/P (MAP) Pulse Ox O2 Delivery O2 Flow Rate FiO2 06/06/20 16:00 97.1 98 20 108/63 (78) 18 06/06/20 12:00 96.6 82 20 115/66 (82) 100 06/06/20 12:00 91 06/06/20 08:40 Room Air 06/06/20 08:00 100 06/06/20 08:00 96.8 66 20 87/57 (67) 100 06/06/20 04:00 92 06/06/20 04:00 98.1 91 19 116/69 (85) 98 06/06/20 00:00 92 06/06/20 00:00 97.9 98 19 115/71 (86) 98 06/05/20 21:00 Room Air Height (Feet): 5 Height (Inches): 5.00 Weight (Pounds): 123 GENERAL: The patient is a well-developed, well-nourished, thin-appearing, male, in no apparent distress. HEENT: Eyes, pupils equal and responsive to light and accommodation. Extraocular movements are intact. NECK: Supple without lymphadenopathy. CHEST: Lungs are clear to auscultation bilaterally without wheezes or rales. CARDIOVASCULAR: Slightly tachycardic, regular rhythm. S1, S2 are normal without murmurs, rubs, or gallops. ABDOMEN: Soft, nontender, and nondistended. Positive bowel sounds. No evidence of hepatosplenomegaly. Currently, no rebound or guarding noted. EXTREMITIES: Negative for clubbing, cyanosis, or edema. Laboratory Tests Test 06/05/20 21:27 06/06/20 01:15 06/06/20 06:07 06/06/20 09:10 POC Whole Blood Glucose 86 MG/DL (74-106) 141 MG/DL (74-106) H 189 MG/DL (74-106) H White Blood Count 7.0 K/UL (4.8-10.8) Red Blood Count 4.03 M/UL (4.70-6.10) L Hemoglobin 12.3 G/DL (14.2-18.0) L Hematocrit 39.2 % (42.0-52.0) L Mean Corpuscular Volume 97 FL (80-99) Mean Corpuscular Hemoglobin 30.4 PG (27.0-31.0) Mean Corpuscular Hemoglobin Concent 31.3 G/DL (32.0-36.0) L Red Cell Distribution Width 13.6 % (11.6-14.8) Platelet Count 571 K/UL (150-450) H Mean Platelet Volume 7.7 FL (6.5-10.1) Neutrophils (%) (Auto) 63.1 % (45.0-75.0) Lymphocytes (%) (Auto) 28.3 % (20.0-45.0) Monocytes (%) (Auto) 7.4 % (1.0-10.0) Eosinophils (%) (Auto) 0.4 % (0.0-3.0) Basophils (%) (Auto) 0.8 % (0.0-2.0) Sodium Level 146 MMOL/L (136-145) H Potassium Level 3.9 MMOL/L (3.5-5.1) Chloride Level 108 MMOL/L (98-107) H Carbon Dioxide Level 24 MMOL/L (21-32) Anion Gap 14 mmol/L (5-15) Blood Urea Nitrogen 14 mg/dL (7-18) Creatinine 1.2 MG/DL (0.55-1.30) Estimat Glomerular Filtration Rate > 60 mL/min (>60) Glucose Level 151 MG/DL (74-106) H Calcium Level 9.9 MG/DL (8.5-10.1) Total Bilirubin 0.7 MG/DL (0.2-1.0) Aspartate Amino Transf (AST/SGOT) 15 U/L (15-37) Alanine Aminotransferase (ALT/SGPT) < 6 U/L (12-78) L Alkaline Phosphatase 158 U/L (46-116) H Total Protein 9.2 G/DL (6.4-8.2) H Albumin 2.3 G/DL (3.4-5.0) L Globulin 6.9 g/dL Albumin/Globulin Ratio 0.3 (1.0-2.7) L Test 06/06/20 12:38 POC Whole Blood Glucose 115 MG/DL (74-106) H Current Medications Medications (Trade) Dose Ordered Sig/Debi Route PRN Reason Start Time Stop Time Status Last Admin Dose Admin Acetaminophen (Tylenol) 650 mg Q6H PRN GT Mild Pain (Pain Scale 1-3) 06/06/20 16:15 07/02/20 16:14 Amantadine HCl (Symmetrel) 100 mg TWICE A DAY GT 06/06/20 18:00 07/02/20 08:59 06/06/20 17:19 Aspirin (ASA) 81 mg DAILY GT 06/07/20 09:00 07/17/20 08:59 Dextrose (Dextrose 50%) 25 ml Q30M PRN IV Hypoglycemia 06/06/20 16:15 09/02/20 09:44 Dextrose (Dextrose 50%) 50 ml Q30M PRN IV Hypoglycemia 06/06/20 16:15 09/02/20 09:44 Famotidine (Pepcid) 20 mg BID GT 06/06/20 18:00 09/01/20 17:59 06/06/20 17:18 Heparin Sodium (Porcine) (Heparin 5000 units/ml) 5,000 units EVERY 12 HOURS SUBQ 06/06/20 21:00 07/17/20 08:59 Insulin Aspart (NovoLOG) EVERY 4 HOURS SUBQ 06/06/20 17:00 09/02/20 12:59 06/06/20 17:17 Meropenem 1 gm/ Sodium Chloride 55 ml @ 110 mls/hr Q12HR IVPB 06/06/20 21:00 06/09/20 23:59 Midodrine (Pro-Amatine) 2.5 mg THREE TIMES A DAY ORAL 06/06/20 18:00 09/04/20 10:59 06/06/20 17:19 Potassium Chloride (K-Dur) 20 meq TWICE A DAY GT 06/06/20 18:00 09/03/20 17:59 06/06/20 17:19 Pravastatin Sodium (Pravachol) 20 mg BEDTIME GT 06/06/20 21:00 07/02/20 20:59 Sennosides (Senokot) 8.6 mg DAILY GT 06/07/20 09:00 07/02/20 08:59 Blaire Greenwood M.D. Jun 06, 2020 20:16
[2020-06-06] MEDS: Meropenem 1 GM in NS 55 ML IVPB SCH (20:28)
[2020-06-07] MEDS: NovoLOG Insulin Flexpen SUBQ SCH ×6 (00:07→20:03)
[2020-06-07 04:18] VITALS: BP 115/63
[2020-06-07 06:41] LABS: BASOPHILS % (AUTO) 1.3 % (0.0-2.0); EOSINOPHILS % (AUTO) 0.7 % (0.0-3.0); HEMATOCRIT 35.9 % (42.0-52.0); HEMOGLOBIN 11.2 G/DL (14.2-18.0); LYMPHOCYTES % (AUTO) 32.6 % (20.0-45.0); MEAN CORPUSCULAR VOLUME 98 FL (80-99); MONOCYTES % (AUTO) 7.1 % (1.0-10.0); NEUTROPHILS % (AUTO) 58.3 % (45.0-75.0); PLATELET COUNT 626 K/UL (150-450); RED BLOOD COUNT 3.66 M/UL (4.70-6.10); RED CELL DISTRIBUTION WIDTH 13.9 % (11.6-14.8); WHITE BLOOD COUNT 6.7 K/UL (4.8-10.8)
--- NOTE | 2020-06-07 06:49 | General Progress Note ---
Assessment/Plan Problem List: (1) Hypernatremia ICD Codes: E87.0 - Hyperosmolality and hypernatremia SNOMED: 805376369 (2) Feeding by G-tube ICD Codes: Z93.1 - Gastrostomy status SNOMED: 290026156, 794207981, 800903794 (3) Diabetes mellitus ICD Codes: E11.9 - Type 2 diabetes mellitus without complications SNOMED: 34378745 (4) History of CVA (cerebrovascular accident) ICD Codes: Z86.73 - Personal history of transient ischemic attack (TIA), and cerebral infarction without residual deficits SNOMED: 309141436 (5) Parkinson disease ICD Codes: G20 - Parkinson's disease SNOMED: 20973188 Assessment/Plan: continue Novolog sliding scale high dose every 4 hours continue to hold Metformin due to lactic acidosis on presentation Subjective ROS Limited/Unobtainable: Yes Allergies: Coded Allergies: No Known Allergies (Unverified , 08/27/19) Subjective events noted - interval notes reviewed glucose values are stable no hypoglycemia on TF Item Value Date Time Bedside Blood Glucose 180 mg/dl H 06/06/20 1717 Bedside Blood Glucose 115 mg/dl 06/06/20 1200 Bedside Blood Glucose 134 mg/dl H 06/06/20 0912 Bedside Blood Glucose 134 mg/dl H 06/06/20 0500 Bedside Blood Glucose 141 mg/dl H 06/06/20 0100 Objective Last 24 Hour Vital Signs Date Time Temp Pulse Resp B/P (MAP) Pulse Ox O2 Delivery O2 Flow Rate FiO2 06/07/20 04:18 98.3 97 16 115/63 (80) 100 06/06/20 23:42 98.6 94 16 117/58 (77) 100 06/06/20 21:16 Room Air 06/06/20 20:00 97.6 102 20 112/74 (87) 100 06/06/20 16:00 97.1 98 20 108/63 (78) 18 06/06/20 12:00 96.6 82 20 115/66 (82) 100 06/06/20 12:00 91 06/06/20 08:40 Room Air 06/06/20 08:00 100 06/06/20 08:00 96.8 66 20 87/57 (67) 100 Intake and Output 06/06/20 06/07/20 19:00 07:00 Intake Total 70 ml 1105 ml Output Total 1500 ml 750 ml Balance -1430 ml 355 ml Free Water 200 ml IV Total 55 ml Tube Feeding 70 ml 850 ml Output Urine Total 1500 ml 750 ml # Voids 1 # Bowel Movements 1 Laboratory Tests 06/06/20 09:10: POC Whole Blood Glucose 189H 06/06/20 12:38: POC Whole Blood Glucose 115H 06/07/20 05:55: White Blood Count [Pending], Red Blood Count [Pending], Hemoglobin [Pending], Hematocrit [Pending], Mean Corpuscular Volume [Pending], Mean Corpuscular Hemoglobin [Pending], Mean Corpuscular Hemoglobin Concent [Pending], Red Cell Distribution Width [Pending], Platelet Count [Pending], Mean Platelet Volume [ Pending], Neutrophils (%) (Auto) [Pending], Lymphocytes (%) (Auto) [Pending], Monocytes (%) (Auto) [Pending], Eosinophils (%) (Auto) [Pending], Basophils (%) (Auto) [Pending], Sodium Level [Pending], Potassium Level [Pending], Chloride Level [Pending], Carbon Dioxide Level [Pending], Blood Urea Nitrogen [Pending], Creatinine [Pending], Estimat Glomerular Filtration Rate [Pending], Glucose Level [Pending], Calcium Level [Pending] Height (Feet): 5 Height (Inches): 5.00 Weight (Pounds): 123 General Appearance: no apparent distress Neck: normal alignment Cardiovascular: normal rate Respiratory/Chest: decreased breath sounds Abdomen: normal bowel sounds Objective Current Medications Medications (Trade) Dose Ordered Sig/Debi Route PRN Reason Start Time Stop Time Status Last Admin Dose Admin Acetaminophen (Tylenol) 650 mg Q6H PRN GT Mild Pain (Pain Scale 1-3) 06/06/20 16:15 07/02/20 16:14 Amantadine HCl (Symmetrel) 100 mg TWICE A DAY GT 06/06/20 18:00 07/02/20 08:59 06/06/20 17:19 Aspirin (ASA) 81 mg DAILY GT 06/07/20 09:00 07/17/20 08:59 Dextrose (Dextrose 50%) 25 ml Q30M PRN IV Hypoglycemia 06/06/20 16:15 09/02/20 09:44 Dextrose (Dextrose 50%) 50 ml Q30M PRN IV Hypoglycemia 06/06/20 16:15 09/02/20 09:44 Famotidine (Pepcid) 20 mg BID GT 06/06/20 18:00 09/01/20 17:59 06/06/20 17:18 Heparin Sodium (Porcine) (Heparin 5000 units/ml) 5,000 units EVERY 12 HOURS SUBQ 06/06/20 21:00 07/17/20 08:59 06/06/20 20:30 Insulin Aspart (NovoLOG) EVERY 4 HOURS SUBQ 06/06/20 17:00 09/02/20 12:59 06/07/20 04:48 Meropenem 1 gm/ Sodium Chloride 55 ml @ 110 mls/hr Q12HR IVPB 06/06/20 21:00 06/09/20 23:59 06/06/20 20:28 Midodrine (Pro-Amatine) 2.5 mg THREE TIMES A DAY ORAL 06/06/20 18:00 09/04/20 10:59 06/06/20 17:19 Potassium Chloride (K-Dur) 20 meq TWICE A DAY GT 06/06/20 18:00 09/03/20 17:59 06/06/20 17:19 Pravastatin Sodium (Pravachol) 20 mg BEDTIME GT 06/06/20 21:00 07/02/20 20:59 06/06/20 20:28 Sennosides (Senokot) 8.6 mg DAILY GT 06/07/20 09:00 07/02/20 08:59 Gregory Pastrana MD Jun 07, 2020 06:49
[2020-06-07 07:20] LABS: ANION GAP 11 mmol/L (5-15); BLOOD UREA NITROGEN 25 mg/dL (7-18); CALCIUM 10.5 MG/DL (8.5-10.1); CARBON DIOXIDE 26 MMOL/L (21-32); CHLORIDE 114 MMOL/L (98-107); CREATININE 1.1 MG/DL (0.55-1.30); POTASSIUM 4.1 MMOL/L (3.5-5.1); SODIUM 151 MMOL/L (136-145)
--- NOTE | 2020-06-07 07:25 | NUR ---
HAND-OFF: Report given to Shaun Fall RN.
--- NOTE | 2020-06-07 07:29 | NUR ---
NURSE NOTES: Report received from JOHNNY Welch. Patient seen in bed AAOx2, not in distress, on room air. IV patent and intact. Gtube patent and infusing Nepro currently at 80ml/hr no residuals so far. Adams cath secured and draining yellowish output. Full body check done, noted healed pressure injury on the sacral area. Optifoam placed on sacrum and bilateral heels for prophylaxis. Pt is on a low air loss mattress. Pt is incontinent and bedbound. Bed low and locked, siderails x2, call light placed within reach and instructed to call nurse for assistance. Will continue to monitor.
[2020-06-07 08:00] VITALS: BP 106/58
[2020-06-07] MEDS: Amantadine 100mg cap GT SCH ×2 (09:03→17:43)
[2020-06-07] MEDS: Aspirin Baby 81mg GT SCH (09:04)
[2020-06-07] MEDS: Sennosides 8.6mg tab GT SCH (09:04)
[2020-06-07] MEDS: Heparin 5000 units/ml inj SUBQ SCH ×2 (09:05→20:02)
[2020-06-07] MEDS: Meropenem 1 GM in NS 55 ML IVPB SCH ×2 (09:29→20:01)
--- NOTE | 2020-06-07 10:50 | Nephrology Progress Note ---
Assessment/Plan Problem List: (1) Hypernatremia (2) Sepsis (3) History of CVA (cerebrovascular accident) (4) Parkinson disease (5) Feeding by G-tube (6) Dehydration Assessment KELLY, resolving, serum creatinine of 1.9 now down to 1.2 Hypernatremia, dehydration, free water deficit Sepsis Diabetes mellitus [id number] GT feeding Severe protein calorie malnutrition History of CVA History of hypertension Parkinson's disease Plan June 07: 1 bolus of D5W. Renal parameters stable. Serum sodium slightly high. Stable from renal standpoint of view. June 06: We will again discontinue the IV ordered. Stable from renal standpoint of view. Will start midodrine for low blood pressure. June 05: DC IV fluid. Potassium supplement given. Stable from renal standpoint to view. June 04: Potassium and magnesium supplement IV given, stable from renal standpoint of view. IV fluid D5W Monitor electrolytes Monitor renal parameters Hold blood pressure medication since blood pressure low Per orders, per consultants Subjective ROS Limited/Unobtainable: No Constitutional: Reports: malaise Objective Objective Last 24 Hour Vital Signs Date Time Temp Pulse Resp B/P (MAP) Pulse Ox O2 Delivery O2 Flow Rate FiO2 06/07/20 08:00 97.3 95 19 106/58 (74) 100 06/07/20 04:18 98.3 97 16 115/63 (80) 100 06/06/20 23:42 98.6 94 16 117/58 (77) 100 06/06/20 21:16 Room Air 06/06/20 20:00 97.6 102 20 112/74 (87) 100 06/06/20 16:00 97.1 98 20 108/63 (78) 18 06/06/20 12:00 96.6 82 20 115/66 (82) 100 06/06/20 12:00 91 Intake and Output 06/06/20 06/07/20 19:00 07:00 Intake Total 70 ml 1185 ml Output Total 1500 ml 750 ml Balance -1430 ml 435 ml Free Water 200 ml IV Total 55 ml Tube Feeding 70 ml 930 ml Output Urine Total 1500 ml 750 ml # Voids 1 # Bowel Movements 1 Current Medications Medications (Trade) Dose Ordered Sig/Debi Route PRN Reason Start Time Stop Time Status Last Admin Dose Admin Acetaminophen (Tylenol) 650 mg Q6H PRN GT Mild Pain (Pain Scale 1-3) 06/06/20 16:15 07/02/20 16:14 Amantadine HCl (Symmetrel) 100 mg TWICE A DAY GT 06/06/20 18:00 07/02/20 08:59 06/07/20 09:03 Aspirin (ASA) 81 mg DAILY GT 06/07/20 09:00 07/17/20 08:59 06/07/20 09:04 Dextrose (Dextrose 50%) 25 ml Q30M PRN IV Hypoglycemia 06/06/20 16:15 09/02/20 09:44 Dextrose (Dextrose 50%) 50 ml Q30M PRN IV Hypoglycemia 06/06/20 16:15 09/02/20 09:44 Famotidine (Pepcid) 20 mg BID GT 06/06/20 18:00 09/01/20 17:59 06/07/20 09:04 Heparin Sodium (Porcine) (Heparin 5000 units/ml) 5,000 units EVERY 12 HOURS SUBQ 06/06/20 21:00 07/17/20 08:59 06/07/20 09:05 Insulin Aspart (NovoLOG) EVERY 4 HOURS SUBQ 06/06/20 17:00 09/02/20 12:59 06/07/20 09:06 Meropenem 1 gm/ Sodium Chloride 55 ml @ 110 mls/hr Q12HR IVPB 06/06/20 21:00 06/09/20 23:59 06/07/20 09:29 Midodrine (Pro-Amatine) 2.5 mg THREE TIMES A DAY ORAL 06/06/20 18:00 09/04/20 10:59 06/07/20 09:04 Potassium Chloride (K-Dur) 20 meq TWICE A DAY GT 06/06/20 18:00 09/03/20 17:59 06/07/20 09:04 Pravastatin Sodium (Pravachol) 20 mg BEDTIME GT 06/06/20 21:00 07/02/20 20:59 06/06/20 20:28 Sennosides (Senokot) 8.6 mg DAILY GT 06/07/20 09:00 07/02/20 08:59 06/07/20 09:04 Laboratory Tests 06/06/20 12:38: POC Whole Blood Glucose 115H 06/07/20 05:55: White Blood Count 6.7, Red Blood Count 3.66L, Hemoglobin 11.2L, Hematocrit 35.9L , Mean Corpuscular Volume 98, Mean Corpuscular Hemoglobin 30.6, Mean Corpuscular Hemoglobin Concent 31.1L, Red Cell Distribution Width 13.9, Platelet Count 626H, Mean Platelet Volume 7.6, Neutrophils (%) (Auto) 58.3, Lymphocytes (%) (Auto) 32.6, Monocytes (%) (Auto) 7.1, Eosinophils (%) (Auto) 0.7, Basophils (%) (Auto) 1.3, Sodium Level 151H, Potassium Level 4.1, Chloride Level 114H, Carbon Dioxide Level 26, Anion Gap 11, Blood Urea Nitrogen 25H, Creatinine 1.1, Estimat Glomerular Filtration Rate > 60, Glucose Level 216H, Calcium Level 10.5H Height (Feet): 5 Height (Inches): 5.00 Weight (Pounds): 123 General Appearance: no apparent distress Cardiovascular: tachycardia Respiratory/Chest: decreased breath sounds Abdomen: soft Objective No change Eddie Nelson MD Jun 07, 2020 10:50
[2020-06-07 12:00] VITALS: BP 117/74
--- NOTE | 2020-06-07 12:26 | NUR ---
RD ASSESSMENT & RECOMMENDATIONS SEE CARE ACTIVITY FOR COMPLETE ASSESSMENT DAILY ESTIMATED NEEDS: Needs based on Sepsis, DM/ 54kg 30-40 kcals/kg 3523-5824 total kcals 1.25-2 g protein/kg 68-108 g total protein 25-35ml/kcal mL/kg 0222-3908 total fluid mLs NUTRITION DIAGNOSIS: * Swallowing difficulty R/T dysphagia, as evidenced by Pt is GT dep. CURRENT TF:Nepro @80ml/hr x16hrs ENTERAL NUTRITION RECOMMENDATIONS: Glucerna 1.5 @ 60ml/hr x 20 hrs to provide 1200ml, 1800kcal, 99g prot, 911ml free water, 160g carbs * Rec Tf change to Glucerna 1.5, start @30ml/hr for 6 hrs. Advance as tolerated 10ml/hr q4-6 hrs to goal * HOB over 30 degrees, increased water flushes * TF at goal meets 100% est needs. ADDITIONAL RECOMMENDATIONS: * Calibrated bedscale wt for accurate CBW * Monitor lytes daily w/ TF, replete as needed * Pt may require increase in insulin regimen for improved BG W/ continuous TF infusion * Wound healing: DOMENICA BID. * Water flushes w/ TF-> rec 150ml q4 hrs w/out IVF * Watch K w/ change of TF
--- NOTE | 2020-06-07 12:42 | NUR ---
NURSE NOTES: RN received ordered from Sunni to change patients G-tube feeding from nephro to Glucerna 1.5 @ 60ml/hr x 20 hrs. Start feeding at 30cc/hr
--- NOTE | 2020-06-07 13:31 | Pulmonology Progress Note ---
Subjective ROS Limited/Unobtainable: No Constitutional: Denies: no symptoms, fever, chills, fatigue, anorexia, drenching sweats, other HEENT: Repors: no symptoms Respiratory: Reports: no symptoms Allergies: Coded Allergies: No Known Allergies (Unverified , 08/27/19) All Systems: reviewed and negative except above Objective Last 24 Hour Vital Signs Date Time Temp Pulse Resp B/P (MAP) Pulse Ox O2 Delivery O2 Flow Rate FiO2 06/07/20 12:00 97.3 95 19 117/74 (88) 99 06/07/20 09:00 Room Air 06/07/20 08:00 97.3 95 19 106/58 (74) 100 06/07/20 04:18 98.3 97 16 115/63 (80) 100 06/06/20 23:42 98.6 94 16 117/58 (77) 100 06/06/20 21:16 Room Air 06/06/20 20:00 97.6 102 20 112/74 (87) 100 06/06/20 16:00 97.1 98 20 108/63 (78) 18 Intake and Output 06/06/20 06/07/20 19:00 07:00 Intake Total 70 ml 1185 ml Output Total 1500 ml 750 ml Balance -1430 ml 435 ml Free Water 200 ml IV Total 55 ml Tube Feeding 70 ml 930 ml Output Urine Total 1500 ml 750 ml # Voids 1 # Bowel Movements 1 General Appearance: cachetic HEENT: normocephalic, atraumatic Respiratory: chest wall non-tender, normal breath sounds Cardiovascular: normal peripheral pulses, normal rate Abdomen: soft, non tender, no organomegaly, no scars Skin: no rash Laboratory Tests 06/07/20 05:55: White Blood Count 6.7, Red Blood Count 3.66L, Hemoglobin 11.2L, Hematocrit 35.9L , Mean Corpuscular Volume 98, Mean Corpuscular Hemoglobin 30.6, Mean Corpuscular Hemoglobin Concent 31.1L, Red Cell Distribution Width 13.9, Platelet Count 626H, Mean Platelet Volume 7.6, Neutrophils (%) (Auto) 58.3, Lymphocytes (%) (Auto) 32.6, Monocytes (%) (Auto) 7.1, Eosinophils (%) (Auto) 0.7, Basophils (%) (Auto) 1.3, Sodium Level 151H, Potassium Level 4.1, Chloride Level 114H, Carbon Dioxide Level 26, Anion Gap 11, Blood Urea Nitrogen 25H, Creatinine 1.1, Estimat Glomerular Filtration Rate > 60, Glucose Level 216H, Calcium Level 10.5H Current Medications Medications (Trade) Dose Ordered Sig/Debi Route PRN Reason Start Time Stop Time Status Last Admin Dose Admin Acetaminophen (Tylenol) 650 mg Q6H PRN GT Mild Pain (Pain Scale 1-3) 06/06/20 16:15 07/02/20 16:14 Amantadine HCl (Symmetrel) 100 mg TWICE A DAY GT 06/06/20 18:00 07/02/20 08:59 06/07/20 09:03 Aspirin (ASA) 81 mg DAILY GT 06/07/20 09:00 07/17/20 08:59 06/07/20 09:04 Dextrose (Dextrose 50%) 25 ml Q30M PRN IV Hypoglycemia 06/06/20 16:15 09/02/20 09:44 Dextrose (Dextrose 50%) 50 ml Q30M PRN IV Hypoglycemia 06/06/20 16:15 09/02/20 09:44 Famotidine (Pepcid) 20 mg BID GT 06/06/20 18:00 09/01/20 17:59 06/07/20 09:04 Heparin Sodium (Porcine) (Heparin 5000 units/ml) 5,000 units EVERY 12 HOURS SUBQ 06/06/20 21:00 07/17/20 08:59 06/07/20 09:05 Insulin Aspart (NovoLOG) EVERY 4 HOURS SUBQ 06/06/20 17:00 09/02/20 12:59 06/07/20 12:39 Meropenem 1 gm/ Sodium Chloride 55 ml @ 110 mls/hr Q12HR IVPB 06/06/20 21:00 06/09/20 23:59 06/07/20 09:29 Midodrine (Pro-Amatine) 2.5 mg THREE TIMES A DAY ORAL 06/06/20 18:00 09/04/20 10:59 06/07/20 12:38 Potassium Chloride (K-Dur) 20 meq TWICE A DAY GT 06/06/20 18:00 09/03/20 17:59 06/07/20 09:04 Pravastatin Sodium (Pravachol) 20 mg BEDTIME GT 06/06/20 21:00 07/02/20 20:59 06/06/20 20:28 Sennosides (Senokot) 8.6 mg DAILY GT 06/07/20 09:00 07/02/20 08:59 06/07/20 09:04 Assessment/Plan Problems: (1) Sepsis (2) Multiple drug resistant organism (MDRO) culture positive (3) Diabetes mellitus (4) Feeding by G-tube (5) Severe protein-calorie malnutrition (6) Parkinson disease (7) History of hypertension (8) History of CVA (cerebrovascular accident) Assessment/Plan Improving ronquillo culture, Urine has proteus,, COVID Negative iv abx iv fluids renal studies urine electrolytes. sliding scale Latanya Mckeon MD Jun 07, 2020 13:31
--- NOTE | 2020-06-07 13:33 | Infectious Diseases Prog Note ---
Assessment/Plan 79yo M with: Fever, SP Leukocytosis, SP KELLY, improving UTI 06/01 UA w/ pyuria, UCx + P Mirabilis ESBL 06/01 BCx Neg 06/01 CXR: No acute process COVID rapid test neg H/o ESBL Proteus in UCx in Oct 2019 Renal US w/ BL cysts PMH: DM2 Parkinson's dementia Bedridden G-tube Plan: Cont meropenem #5/10 06/02 SP erta #1 06/01 SP cefepime, vanco, flagyl x1 in ED Monitor CBC/BMP Trend leukocytosis, KELLY Trend hemodynamics, temp curve D/w RN Thank you for this consult. [facility] will continue to follow. Subjective Allergies: Coded Allergies: No Known Allergies (Unverified , 08/27/19) afebrile no leuckocytosis Bcx NTD at RA Objective Last 24 Hour Vital Signs Date Time Temp Pulse Resp B/P (MAP) Pulse Ox O2 Delivery O2 Flow Rate FiO2 06/07/20 12:00 97.3 95 19 117/74 (88) 99 06/07/20 09:00 Room Air 06/07/20 08:00 97.3 95 19 106/58 (74) 100 06/07/20 04:18 98.3 97 16 115/63 (80) 100 06/06/20 23:42 98.6 94 16 117/58 (77) 100 06/06/20 21:16 Room Air 06/06/20 20:00 97.6 102 20 112/74 (87) 100 06/06/20 16:00 97.1 98 20 108/63 (78) 18 Height (Feet): 5 Height (Inches): 5.00 Weight (Pounds): 123 GENERAL: thin-appearing, male, in no apparent distress. HEENT: Eyes, pupils equal and responsive to light and accommodation. Extraocular movements are intact. NECK: Supple without lymphadenopathy. CHEST: Lungs are clear to auscultation bilaterally without wheezes or rales. CARDIOVASCULAR: Slightly tachycardic, regular rhythm. S1, S2 are normal without murmurs, rubs, or gallops. ABDOMEN: Soft, nontender, and nondistended. Positive bowel sounds. No evidence of hepatosplenomegaly. EXTREMITIES: Negative for clubbing, cyanosis, or edema. Laboratory Tests Test 06/07/20 05:55 White Blood Count 6.7 K/UL (4.8-10.8) Red Blood Count 3.66 M/UL (4.70-6.10) L Hemoglobin 11.2 G/DL (14.2-18.0) L Hematocrit 35.9 % (42.0-52.0) L Mean Corpuscular Volume 98 FL (80-99) Mean Corpuscular Hemoglobin 30.6 PG (27.0-31.0) Mean Corpuscular Hemoglobin Concent 31.1 G/DL (32.0-36.0) L Red Cell Distribution Width 13.9 % (11.6-14.8) Platelet Count 626 K/UL (150-450) H Mean Platelet Volume 7.6 FL (6.5-10.1) Neutrophils (%) (Auto) 58.3 % (45.0-75.0) Lymphocytes (%) (Auto) 32.6 % (20.0-45.0) Monocytes (%) (Auto) 7.1 % (1.0-10.0) Eosinophils (%) (Auto) 0.7 % (0.0-3.0) Basophils (%) (Auto) 1.3 % (0.0-2.0) Sodium Level 151 MMOL/L (136-145) H Potassium Level 4.1 MMOL/L (3.5-5.1) Chloride Level 114 MMOL/L (98-107) H Carbon Dioxide Level 26 MMOL/L (21-32) Anion Gap 11 mmol/L (5-15) Blood Urea Nitrogen 25 mg/dL (7-18) H Creatinine 1.1 MG/DL (0.55-1.30) Estimat Glomerular Filtration Rate > 60 mL/min (>60) Glucose Level 216 MG/DL (74-106) H Calcium Level 10.5 MG/DL (8.5-10.1) H Current Medications Medications (Trade) Dose Ordered Sig/Debi Route PRN Reason Start Time Stop Time Status Last Admin Dose Admin Acetaminophen (Tylenol) 650 mg Q6H PRN GT Mild Pain (Pain Scale 1-3) 06/06/20 16:15 07/02/20 16:14 Amantadine HCl (Symmetrel) 100 mg TWICE A DAY GT 06/06/20 18:00 07/02/20 08:59 06/07/20 09:03 Aspirin (ASA) 81 mg DAILY GT 06/07/20 09:00 07/17/20 08:59 06/07/20 09:04 Dextrose (Dextrose 50%) 25 ml Q30M PRN IV Hypoglycemia 06/06/20 16:15 09/02/20 09:44 Dextrose (Dextrose 50%) 50 ml Q30M PRN IV Hypoglycemia 06/06/20 16:15 09/02/20 09:44 Famotidine (Pepcid) 20 mg BID GT 06/06/20 18:00 09/01/20 17:59 06/07/20 09:04 Heparin Sodium (Porcine) (Heparin 5000 units/ml) 5,000 units EVERY 12 HOURS SUBQ 06/06/20 21:00 07/17/20 08:59 06/07/20 09:05 Insulin Aspart (NovoLOG) EVERY 4 HOURS SUBQ 06/06/20 17:00 09/02/20 12:59 06/07/20 12:39 Meropenem 1 gm/ Sodium Chloride 55 ml @ 110 mls/hr Q12HR IVPB 06/06/20 21:00 06/09/20 23:59 06/07/20 09:29 Midodrine (Pro-Amatine) 2.5 mg THREE TIMES A DAY ORAL 06/06/20 18:00 09/04/20 10:59 06/07/20 12:38 Potassium Chloride (K-Dur) 20 meq TWICE A DAY GT 06/06/20 18:00 09/03/20 17:59 06/07/20 09:04 Pravastatin Sodium (Pravachol) 20 mg BEDTIME GT 06/06/20 21:00 07/02/20 20:59 06/06/20 20:28 Sennosides (Senokot) 8.6 mg DAILY GT 06/07/20 09:00 07/02/20 08:59 06/07/20 09:04 Blaire Greenwood M.D. Jun 07, 2020 13:33
--- NOTE | 2020-06-07 14:15 | Surgery Progress Note ---
Surgery Progress Note Subjective Symptoms: improved, tolerating diet, voiding well, passing flatus, BM Objective Last 24 Hour Vital Signs Date Time Temp Pulse Resp B/P (MAP) Pulse Ox O2 Delivery O2 Flow Rate FiO2 06/07/20 12:00 97.3 95 19 117/74 (88) 99 06/07/20 09:00 Room Air 06/07/20 08:00 97.3 95 19 106/58 (74) 100 06/07/20 04:18 98.3 97 16 115/63 (80) 100 06/06/20 23:42 98.6 94 16 117/58 (77) 100 06/06/20 21:16 Room Air 06/06/20 20:00 97.6 102 20 112/74 (87) 100 06/06/20 16:00 97.1 98 20 108/63 (78) 18 I&O Intake and Output 06/06/20 06/07/20 19:00 07:00 Intake Total 70 ml 1185 ml Output Total 1500 ml 750 ml Balance -1430 ml 435 ml Free Water 200 ml IV Total 55 ml Tube Feeding 70 ml 930 ml Output Urine Total 1500 ml 750 ml # Voids 1 # Bowel Movements 1 Dressing: dry Wound: clean Cardiovascular: RSR Respiratory: decreased breath sounds Abdomen: soft, non-tender, present bowel sounds Extremities: no edema, no tenderness, no cyanosis Laboratory Tests Test 06/07/20 05:55 White Blood Count 6.7 K/UL (4.8-10.8) Red Blood Count 3.66 M/UL (4.70-6.10) L Hemoglobin 11.2 G/DL (14.2-18.0) L Hematocrit 35.9 % (42.0-52.0) L Mean Corpuscular Volume 98 FL (80-99) Mean Corpuscular Hemoglobin 30.6 PG (27.0-31.0) Mean Corpuscular Hemoglobin Concent 31.1 G/DL (32.0-36.0) L Red Cell Distribution Width 13.9 % (11.6-14.8) Platelet Count 626 K/UL (150-450) H Mean Platelet Volume 7.6 FL (6.5-10.1) Neutrophils (%) (Auto) 58.3 % (45.0-75.0) Lymphocytes (%) (Auto) 32.6 % (20.0-45.0) Monocytes (%) (Auto) 7.1 % (1.0-10.0) Eosinophils (%) (Auto) 0.7 % (0.0-3.0) Basophils (%) (Auto) 1.3 % (0.0-2.0) Sodium Level 151 MMOL/L (136-145) H Potassium Level 4.1 MMOL/L (3.5-5.1) Chloride Level 114 MMOL/L (98-107) H Carbon Dioxide Level 26 MMOL/L (21-32) Anion Gap 11 mmol/L (5-15) Blood Urea Nitrogen 25 mg/dL (7-18) H Creatinine 1.1 MG/DL (0.55-1.30) Estimat Glomerular Filtration Rate > 60 mL/min (>60) Glucose Level 216 MG/DL (74-106) H Calcium Level 10.5 MG/DL (8.5-10.1) H Total Protein (PEP) Pending Albumin (PEP) Pending Globulin (PEP) Pending Albumin/Globulin Ratio Pending [id number]-[id number] Pending [id number]-4-Lgsxnnfzs Pending Beta Globulins Pending Beta Gamma Globulin Pending PEP Abnormal Protein Bands Pending Protein Electrophoresis Interpret Pending Plan Problems: (1) Hypernatremia (2) Dehydration (3) Hip fracture, left (4) Diabetes mellitus (5) History of hypertension (6) Severe protein-calorie malnutrition Assessment & Plan: DAILY ESTIMATED NEEDS: Needs based on Sepsis, DM/ 54kg 30-40 kcals/kg 4690-9948 total kcals 1.25-2 g protein/kg 68-108 g total protein 25-35ml/kcal mL/kg 7108-3242 total fluid mLs NUTRITION DIAGNOSIS: * Swallowing difficulty R/T dysphagia, as evidenced by Pt is GT dep. (CURRENT TF: Glucerna 1.5 @ 30ml/hr x 24 hrs) ENTERAL NUTRITION RECOMMENDATIONS: Glucerna 1.5 @ 60ml/hr x 20 hrs to provide 1200ml, 1800kcal, 99g prot, 911ml free water, 160g carbs * Rec to INCREASE TF GOAL to 60ml/hr for 20 hrs * HOB over 30 degrees, increased water flushes * TF at goal meets 100% est needs. -------- ADDITIONAL RECOMMENDATIONS: * Calibrated bedscale wt for accurate CBW * Monitor lytes daily w/ TF, replete as needed * Pt may require increase in insulin regimen for improved BG W/ continuous TF infusion * Wound healing: DOMENICA BID, F/up w/ WC eval . (7) Acute encephalopathy (8) Pressure Ulcer Of Sacral Region, Unstageable Assessment & Plan: Pt presented on admission with purple and indurated area at Sacrococcygeal at previously compromised site(L)7cm x (W)3cm.Surrounding Hyperpigmentation at Sacrum. Non-Blanching erythema without fluctuance R heel. Non-Blanching erythema with delineated margins L heel (L)4.5cm x (W)5.5cm. L Heel is boggy . Tx.Plan: Apply Moisture Barrier Paste to Sacrum. Cover with Optifoam drsgs. Change every 3 days and prn. Apply Cavilon Skin Barrier to R and L trochanter. Cover each site with Optifoam drsgs. Change every 7 days and prn. Apply Cavilon Skin Barrier to each heel and malleoli. Cover each site with Optifoam drsgs. Change every 7 days and prn. Reposition at least every 2hours or as tolerated. Off-load heels with pillow. (9) Feeding by G-tube (10) Abdominal distention (11) Multiple drug resistant organism (MDRO) culture positive (12) Sepsis (13) History of CVA (cerebrovascular accident) (14) Parkinson disease James Breen Jun 07, 2020 14:15
[2020-06-07 16:00] VITALS: BP 125/56
--- NOTE | 2020-06-07 18:55 | Internal Med Progress Note ---
Subjective Date of Service: Jun 07, 2020 Physician Name JordynTello Attending Physician Cirilo Rome MD Current Medications Medications (Trade) Dose Ordered Sig/Debi Route PRN Reason Start Time Stop Time Status Last Admin Dose Admin Acetaminophen (Tylenol) 650 mg Q6H PRN GT Mild Pain (Pain Scale 1-3) 06/06/20 16:15 07/02/20 16:14 Amantadine HCl (Symmetrel) 100 mg TWICE A DAY GT 06/06/20 18:00 07/02/20 08:59 06/07/20 17:43 Aspirin (ASA) 81 mg DAILY GT 06/07/20 09:00 07/17/20 08:59 06/07/20 09:04 Dextrose (Dextrose 50%) 25 ml Q30M PRN IV Hypoglycemia 06/06/20 16:15 09/02/20 09:44 Dextrose (Dextrose 50%) 50 ml Q30M PRN IV Hypoglycemia 06/06/20 16:15 09/02/20 09:44 Famotidine (Pepcid) 20 mg BID GT 06/06/20 18:00 09/01/20 17:59 06/07/20 17:43 Heparin Sodium (Porcine) (Heparin 5000 units/ml) 5,000 units EVERY 12 HOURS SUBQ 06/06/20 21:00 07/17/20 08:59 06/07/20 09:05 Insulin Aspart (NovoLOG) EVERY 4 HOURS SUBQ 06/06/20 17:00 09/02/20 12:59 06/07/20 12:39 Meropenem 1 gm/ Sodium Chloride 55 ml @ 110 mls/hr Q12HR IVPB 06/06/20 21:00 06/12/20 23:59 06/07/20 09:29 Midodrine (Pro-Amatine) 2.5 mg THREE TIMES A DAY ORAL 06/06/20 18:00 09/04/20 10:59 06/07/20 17:43 Potassium Chloride (K-Dur) 20 meq TWICE A DAY GT 06/06/20 18:00 09/03/20 17:59 06/07/20 17:43 Pravastatin Sodium (Pravachol) 20 mg BEDTIME GT 06/06/20 21:00 07/02/20 20:59 06/06/20 20:28 Sennosides (Senokot) 8.6 mg DAILY GT 06/07/20 09:00 07/02/20 08:59 06/07/20 09:04 Allergies: Coded Allergies: No Known Allergies (Unverified , 08/27/19) ROS Limited/Unobtainable: Yes Subjective 79 YO M admitted with hyperglycemia and hypernatremia. Now UTI. Cover for Int Dusty-Dr Rome Objective Last Vital Signs Date Time Temp Pulse Resp B/P (MAP) Pulse Ox O2 Delivery O2 Flow Rate FiO2 06/07/20 16:00 96.0 96 18 125/56 (79) 97 06/07/20 09:00 Room Air 06/01/20 22:30 3.0 Laboratory Tests Test 06/07/20 05:55 White Blood Count 6.7 K/UL (4.8-10.8) Red Blood Count 3.66 M/UL (4.70-6.10) L Hemoglobin 11.2 G/DL (14.2-18.0) L Hematocrit 35.9 % (42.0-52.0) L Mean Corpuscular Volume 98 FL (80-99) Mean Corpuscular Hemoglobin 30.6 PG (27.0-31.0) Mean Corpuscular Hemoglobin Concent 31.1 G/DL (32.0-36.0) L Red Cell Distribution Width 13.9 % (11.6-14.8) Platelet Count 626 K/UL (150-450) H Mean Platelet Volume 7.6 FL (6.5-10.1) Neutrophils (%) (Auto) 58.3 % (45.0-75.0) Lymphocytes (%) (Auto) 32.6 % (20.0-45.0) Monocytes (%) (Auto) 7.1 % (1.0-10.0) Eosinophils (%) (Auto) 0.7 % (0.0-3.0) Basophils (%) (Auto) 1.3 % (0.0-2.0) Sodium Level 151 MMOL/L (136-145) H Potassium Level 4.1 MMOL/L (3.5-5.1) Chloride Level 114 MMOL/L (98-107) H Carbon Dioxide Level 26 MMOL/L (21-32) Anion Gap 11 mmol/L (5-15) Blood Urea Nitrogen 25 mg/dL (7-18) H Creatinine 1.1 MG/DL (0.55-1.30) Estimat Glomerular Filtration Rate > 60 mL/min (>60) Glucose Level 216 MG/DL (74-106) H Calcium Level 10.5 MG/DL (8.5-10.1) H Total Protein (PEP) Pending Albumin (PEP) Pending Globulin (PEP) Pending Albumin/Globulin Ratio Pending Utivq-7-Utyyikyvi Pending Iutlo-7-Aymseeyel Pending Beta Globulins Pending Beta Gamma Globulin Pending PEP Abnormal Protein Bands Pending Protein Electrophoresis Interpret Pending Intake and Output 06/06/20 06/07/20 19:00 07:00 Intake Total 70 ml 1185 ml Output Total 1500 ml 750 ml Balance -1430 ml 435 ml Free Water 200 ml IV Total 55 ml Tube Feeding 70 ml 930 ml Output Urine Total 1500 ml 750 ml # Voids 1 # Bowel Movements 1 Objective PHYSICAL EXAMINATION: GENERAL: The patient is a well-developed, well-nourished, thin-appearing, male, in no apparent distress. HEENT: Eyes, pupils equal and responsive to light and accommodation. Extraocular movements are intact. NECK: Supple without lymphadenopathy. CHEST: Lungs are clear to auscultation bilaterally without wheezes or rales. CARDIOVASCULAR: Slightly tachycardic, regular rhythm. S1, S2 are normal without murmurs, rubs, or gallops. ABDOMEN: Soft, nontender, and nondistended. Positive bowel sounds. No evidence of hepatosplenomegaly. Currently, no rebound or guarding noted. EXTREMITIES: Negative for clubbing, cyanosis, or edema. RECTAL: Not performed. GENITAL: Not performed. NEUROLOGIC: Cranial nerves II through XII are grossly intact without focal deficits. Assessment/Plan Assessment/Plan ASSESSMENT: This is a 79-year-old male with: 1. Hyperglycemia. 2. Hypernatremia. 3. Urinary tract infection=MDR proteus. 4. Diabetes type 2. 5. Hypertension. 6. Hypercholesterolemia. 7. Dysphagia. 8. Parkinson disease. 9. Ulcerative proctitis. 10. Protein-calorie malnutrition. 11. History of sacral decubitus ulcer stage IV. 12. Benign prostatic hypertrophy. 13. Gastroesophageal reflux disease. 14. Metabolic encephalopathy. 15. History of left hip fracture. TREATMENT: 1. Hyperglycemia/diabetes. The patient has been placed on a protocol using NovoLog sliding scale. The patient's blood sugars have been running in 300s. Hyperglycemia may be secondary to urinary tract infection. 2. Urinary tract infection. Urine culture =MDR proteus. ABX= meropenem. results.ID=Dr Oliva 3. Hypertension. Continue amlodipine as above. 4. Hypercholesterolemia. Continue atorvastatin as above. 5. Dysphagia. The patient is status post PEG placement. 6. Parkinson disease. Continue amantadine as above. 7. Ulcerative proctitis. 8. Protein-calorie malnutrition. 9. Sacral decubitus ulcer stage IV. 10. Benign prostatic hypertrophy. Continue tamsulosin as above. 11. Gastroesophageal reflux disease. 12. Metabolic encephalopathy. 13. History of left hip fracture. Tello Cobb MD Jun 07, 2020 18:55
--- NOTE | 2020-06-07 19:21 | NUR ---
NURSE HAND-OFF: Important Events on Shift:G-tube feeding changed from Nephro to Glucerna 1.5 Patient Status: stable Diet: Glucerna 1.5 Pending Orders: n/a Pending Results/Labs:n/a Pending MD notification:n/a Latest Vital Signs: Temperature 96.0 , Pulse 96 , B/P 125 /56 , Respiratory Rate 18 , O2 SAT 97 , Room Air, O2 Flow Rate 3.0 . Vital Sign Comment: stable Latest Lane Fall Score: 70 Fall Risk: High Risk Safety Measures: Call light Within Reach, Bed Alarm Zone 1, Side Rails Side Rails x3, Bed position Low and Locked. Fall Precautions: Yellow Socks Yellow Gown Door Sign Patient Fall Education Report given to JOHNNY Welch.
--- NOTE | 2020-06-07 19:46 | NUR ---
NURSE NOTES: Received patient comfortably resting in bed, no SOB noted, tolerating his g-tube feeding well.
[2020-06-07 20:00] VITALS: BP 130/70
[2020-06-08] VITALS (7 sets, daily range): BP systolic 114–132; BP diastolic 66–88
[2020-06-08] MEDS: NovoLOG Insulin Flexpen SUBQ SCH ×6 (00:05→20:35)
[2020-06-08 06:46] LABS: BASOPHILS % (AUTO) 0.7 % (0.0-2.0); EOSINOPHILS % (AUTO) 0.8 % (0.0-3.0); HEMATOCRIT 36.9 % (42.0-52.0); HEMOGLOBIN 11.4 G/DL (14.2-18.0); LYMPHOCYTES % (AUTO) 37.6 % (20.0-45.0); MEAN CORPUSCULAR VOLUME 99 FL (80-99); MONOCYTES % (AUTO) 8.8 % (1.0-10.0); NEUTROPHILS % (AUTO) 52.1 % (45.0-75.0); PLATELET COUNT 642 K/UL (150-450); RED BLOOD COUNT 3.73 M/UL (4.70-6.10); RED CELL DISTRIBUTION WIDTH 14.4 % (11.6-14.8); WHITE BLOOD COUNT 6.3 K/UL (4.8-10.8)
--- NOTE | 2020-06-08 07:12 | NUR ---
HAND-OFF: Report given to Janeth Higgins RN.
[2020-06-08 07:40] LABS: ANION GAP 13 mmol/L (5-15); BLOOD UREA NITROGEN 21 mg/dL (7-18); CALCIUM 10.1 MG/DL (8.5-10.1); CARBON DIOXIDE 29 MMOL/L (21-32); CHLORIDE 116 MMOL/L (98-107); CREATININE 0.9 MG/DL (0.55-1.30); POTASSIUM 3.8 MMOL/L (3.5-5.1); SODIUM 158 MMOL/L (136-145)
--- NOTE | 2020-06-08 08:00 | NUR ---
NURSE NOTES: Patient awake and alert to name,respirations unlabored.G-tube feedings as ordered.NO residual noted ,abdomen is soft Adams catheter is in place and draining clear yellow urine.HOB is elevated.Bed alarm on,call light within reach.
[2020-06-08] MEDS: Aspirin Baby 81mg GT SCH (09:05)
[2020-06-08] MEDS: Amantadine 100mg cap GT SCH ×2 (09:06→18:48)
[2020-06-08] MEDS: Sennosides 8.6mg tab GT SCH (09:06)
[2020-06-08] MEDS: Heparin 5000 units/ml inj SUBQ SCH ×2 (09:07→20:32)
[2020-06-08] MEDS: Meropenem 1 GM in NS 55 ML IVPB SCH ×2 (09:13→20:27)
--- NOTE | 2020-06-08 10:46 | Nephrology Progress Note ---
Assessment/Plan Problem List: (1) Hypernatremia (2) Sepsis (3) History of CVA (cerebrovascular accident) (4) Parkinson disease (5) Feeding by G-tube (6) Dehydration Assessment KELLY, resolving, serum creatinine of 1.9 now down to 1.2 Hypernatremia, dehydration, free water deficit Sepsis Diabetes mellitus [id number] GT feeding Severe protein calorie malnutrition History of CVA History of hypertension Parkinson's disease Plan June 08: Serum sodium higher. Will give 1 L of D5W. Renal parameters stable. Continue to monitor electrolytes. Continue per consultants. June 07: 1 bolus of D5W. Renal parameters stable. Serum sodium slightly high. Stable from renal standpoint of view. June 06: We will again discontinue the IV ordered. Stable from renal standpoint of view. Will start midodrine for low blood pressure. June 05: DC IV fluid. Potassium supplement given. Stable from renal standpoint to view. June 04: Potassium and magnesium supplement IV given, stable from renal standpoint of view. IV fluid D5W Monitor electrolytes Monitor renal parameters Hold blood pressure medication since blood pressure low Per orders, per consultants Subjective ROS Limited/Unobtainable: No Constitutional: Reports: malaise Objective Objective Last 24 Hour Vital Signs Date Time Temp Pulse Resp B/P (MAP) Pulse Ox O2 Delivery O2 Flow Rate FiO2 06/08/20 08:00 96.5 93 18 127/71 (89) 96 06/08/20 04:00 98.3 96 17 128/74 (92) 96 06/08/20 00:12 97.9 98 18 132/66 (88) 96 06/07/20 20:42 Room Air 06/07/20 20:00 97.5 94 17 130/70 (90) 96 06/07/20 16:00 96.0 96 18 125/56 (79) 97 06/07/20 12:00 97.3 95 19 117/74 (88) 99 Intake and Output 06/07/20 06/08/20 19:00 07:00 Intake Total 650 ml 875 ml Output Total 1000 ml 700 ml Balance -350 ml 175 ml Free Water 200 ml IV Total 55 ml Tube Feeding 650 ml 620 ml Output Urine Total 1000 ml 700 ml # Voids 1 # Bowel Movements 2 1 Current Medications Medications (Trade) Dose Ordered Sig/Debi Route PRN Reason Start Time Stop Time Status Last Admin Dose Admin Acetaminophen (Tylenol) 650 mg Q6H PRN GT Mild Pain (Pain Scale 1-3) 06/06/20 16:15 07/02/20 16:14 Amantadine HCl (Symmetrel) 100 mg TWICE A DAY GT 06/06/20 18:00 07/02/20 08:59 06/08/20 09:06 Aspirin (ASA) 81 mg DAILY GT 06/07/20 09:00 07/17/20 08:59 06/08/20 09:05 Dextrose (Dextrose 50%) 25 ml Q30M PRN IV Hypoglycemia 06/06/20 16:15 09/02/20 09:44 Dextrose (Dextrose 50%) 50 ml Q30M PRN IV Hypoglycemia 06/06/20 16:15 09/02/20 09:44 Famotidine (Pepcid) 20 mg BID GT 06/06/20 18:00 09/01/20 17:59 06/08/20 09:05 Heparin Sodium (Porcine) (Heparin 5000 units/ml) 5,000 units EVERY 12 HOURS SUBQ 06/06/20 21:00 07/17/20 08:59 06/08/20 09:07 Insulin Aspart (NovoLOG) EVERY 4 HOURS SUBQ 06/06/20 17:00 09/02/20 12:59 06/08/20 10:27 Meropenem 1 gm/ Sodium Chloride 55 ml @ 110 mls/hr Q12HR IVPB 06/06/20 21:00 06/12/20 23:59 06/08/20 09:13 Midodrine (Pro-Amatine) 2.5 mg THREE TIMES A DAY ORAL 06/06/20 18:00 09/04/20 10:59 06/07/20 17:43 Potassium Chloride (K-Dur) 20 meq TWICE A DAY GT 06/06/20 18:00 09/03/20 17:59 06/08/20 09:05 Pravastatin Sodium (Pravachol) 20 mg BEDTIME GT 06/06/20 21:00 07/02/20 20:59 06/07/20 20:00 Sennosides (Senokot) 8.6 mg DAILY GT 06/07/20 09:00 07/02/20 08:59 06/08/20 09:06 Laboratory Tests 06/08/20 05:43: White Blood Count 6.3, Red Blood Count 3.73L, Hemoglobin 11.4L, Hematocrit 36.9L , Mean Corpuscular Volume 99, Mean Corpuscular Hemoglobin 30.4, Mean Corpuscular Hemoglobin Concent 30.8L, Red Cell Distribution Width 14.4, Platelet Count 642H, Mean Platelet Volume 7.6, Neutrophils (%) (Auto) 52.1, Lymphocytes (%) (Auto) 37.6, Monocytes (%) (Auto) 8.8, Eosinophils (%) (Auto) 0.8, Basophils (%) (Auto) 0.7, Sodium Level 158H, Potassium Level 3.8, Chloride Level 116H, Carbon Dioxide Level 29, Anion Gap 13, Blood Urea Nitrogen 21H, Creatinine 0.9, Estimat Glomerular Filtration Rate > 60, Glucose Level 227H, Calcium Level 10.1 Height (Feet): 5 Height (Inches): 5.00 Weight (Pounds): 123 General Appearance: no apparent distress Cardiovascular: tachycardia Respiratory/Chest: decreased breath sounds Abdomen: soft Objective No change Eddie Nelson MD Jun 08, 2020 10:46
--- NOTE | 2020-06-08 12:46 | Pulmonology Progress Note ---
Subjective ROS Limited/Unobtainable: No Constitutional: Denies: no symptoms, fever, chills, fatigue, anorexia, drenching sweats, other HEENT: Repors: no symptoms Respiratory: Reports: no symptoms Allergies: Coded Allergies: No Known Allergies (Unverified , 08/27/19) All Systems: reviewed and negative except above Objective Last 24 Hour Vital Signs Date Time Temp Pulse Resp B/P (MAP) Pulse Ox O2 Delivery O2 Flow Rate FiO2 06/08/20 09:00 Room Air 06/08/20 08:00 96.5 93 18 127/71 (89) 96 06/08/20 04:00 98.3 96 17 128/74 (92) 96 06/08/20 00:12 97.9 98 18 132/66 (88) 96 06/07/20 20:42 Room Air 06/07/20 20:00 97.5 94 17 130/70 (90) 96 06/07/20 16:00 96.0 96 18 125/56 (79) 97 Intake and Output 06/07/20 06/08/20 19:00 07:00 Intake Total 650 ml 875 ml Output Total 1000 ml 700 ml Balance -350 ml 175 ml Free Water 200 ml IV Total 55 ml Tube Feeding 650 ml 620 ml Output Urine Total 1000 ml 700 ml # Voids 1 # Bowel Movements 2 1 General Appearance: cachetic HEENT: normocephalic, atraumatic Respiratory: chest wall non-tender, normal breath sounds Cardiovascular: normal peripheral pulses, normal rate Abdomen: soft, non tender, no organomegaly, no scars Skin: no rash Neurologic: oriented x 3 Lymphatic: no neck adenopathy Laboratory Tests 06/08/20 05:43: White Blood Count 6.3, Red Blood Count 3.73L, Hemoglobin 11.4L, Hematocrit 36.9L , Mean Corpuscular Volume 99, Mean Corpuscular Hemoglobin 30.4, Mean Corpuscular Hemoglobin Concent 30.8L, Red Cell Distribution Width 14.4, Platelet Count 642H, Mean Platelet Volume 7.6, Neutrophils (%) (Auto) 52.1, Lymphocytes (%) (Auto) 37.6, Monocytes (%) (Auto) 8.8, Eosinophils (%) (Auto) 0.8, Basophils (%) (Auto) 0.7, Sodium Level 158H, Potassium Level 3.8, Chloride Level 116H, Carbon Dioxide Level 29, Anion Gap 13, Blood Urea Nitrogen 21H, Creatinine 0.9, Estimat Glomerular Filtration Rate > 60, Glucose Level 227H, Calcium Level 10.1 Current Medications Medications (Trade) Dose Ordered Sig/Debi Route PRN Reason Start Time Stop Time Status Last Admin Dose Admin Acetaminophen (Tylenol) 650 mg Q6H PRN GT Mild Pain (Pain Scale 1-3) 06/06/20 16:15 07/02/20 16:14 Amantadine HCl (Symmetrel) 100 mg TWICE A DAY GT 06/06/20 18:00 07/02/20 08:59 06/08/20 09:06 Aspirin (ASA) 81 mg DAILY GT 06/07/20 09:00 07/17/20 08:59 06/08/20 09:05 Dextrose 1,000 ml @ 100 mls/hr Q10H IV 06/08/20 11:30 07/08/20 11:29 06/08/20 12:02 Dextrose (Dextrose 50%) 25 ml Q30M PRN IV Hypoglycemia 06/06/20 16:15 09/02/20 09:44 Dextrose (Dextrose 50%) 50 ml Q30M PRN IV Hypoglycemia 06/06/20 16:15 09/02/20 09:44 Famotidine (Pepcid) 20 mg BID GT 06/06/20 18:00 09/01/20 17:59 06/08/20 09:05 Heparin Sodium (Porcine) (Heparin 5000 units/ml) 5,000 units EVERY 12 HOURS SUBQ 06/06/20 21:00 07/17/20 08:59 06/08/20 09:07 Insulin Aspart (NovoLOG) EVERY 4 HOURS SUBQ 06/06/20 17:00 09/02/20 12:59 06/08/20 10:27 Meropenem 1 gm/ Sodium Chloride 55 ml @ 110 mls/hr Q12HR IVPB 06/06/20 21:00 06/12/20 23:59 06/08/20 09:13 Midodrine (Pro-Amatine) 2.5 mg THREE TIMES A DAY ORAL 06/06/20 18:00 09/04/20 10:59 06/07/20 17:43 Potassium Chloride (K-Dur) 20 meq TWICE A DAY GT 06/06/20 18:00 09/03/20 17:59 06/08/20 09:05 Pravastatin Sodium (Pravachol) 20 mg BEDTIME GT 06/06/20 21:00 07/02/20 20:59 06/07/20 20:00 Sennosides (Senokot) 8.6 mg DAILY GT 06/07/20 09:00 07/02/20 08:59 06/08/20 09:06 Assessment/Plan Problems: (1) Sepsis (2) Multiple drug resistant organism (MDRO) culture positive (3) Diabetes mellitus (4) Feeding by G-tube (5) Severe protein-calorie malnutrition (6) Parkinson disease (7) History of hypertension (8) History of CVA (cerebrovascular accident) Assessment/Plan Improving ronquillo culture, Urine has proteus,, COVID Negative iv abx iv fluids renal studies urine electrolytes. sliding scale Latanya Mckeon MD Jun 08, 2020 12:46
--- NOTE | 2020-06-08 12:58 | Surgery Progress Note ---
Surgery Progress Note Subjective Symptoms: improved, tolerating diet, passing flatus, BM Objective Last 24 Hour Vital Signs Date Time Temp Pulse Resp B/P (MAP) Pulse Ox O2 Delivery O2 Flow Rate FiO2 06/08/20 12:00 97.0 93 18 114/71 (85) 100 06/08/20 09:00 Room Air 06/08/20 08:00 96.5 93 18 127/71 (89) 96 06/08/20 04:00 98.3 96 17 128/74 (92) 96 06/08/20 00:12 97.9 98 18 132/66 (88) 96 06/07/20 20:42 Room Air 06/07/20 20:00 97.5 94 17 130/70 (90) 96 06/07/20 16:00 96.0 96 18 125/56 (79) 97 I&O Intake and Output 06/07/20 06/08/20 19:00 07:00 Intake Total 650 ml 875 ml Output Total 1000 ml 700 ml Balance -350 ml 175 ml Free Water 200 ml IV Total 55 ml Tube Feeding 650 ml 620 ml Output Urine Total 1000 ml 700 ml # Voids 1 # Bowel Movements 2 1 Dressing: saturated Cardiovascular: RSR Respiratory: decreased breath sounds Abdomen: soft, non-tender, present bowel sounds Extremities: no edema, no tenderness, no cyanosis Laboratory Tests Test 06/08/20 05:43 White Blood Count 6.3 K/UL (4.8-10.8) Red Blood Count 3.73 M/UL (4.70-6.10) L Hemoglobin 11.4 G/DL (14.2-18.0) L Hematocrit 36.9 % (42.0-52.0) L Mean Corpuscular Volume 99 FL (80-99) Mean Corpuscular Hemoglobin 30.4 PG (27.0-31.0) Mean Corpuscular Hemoglobin Concent 30.8 G/DL (32.0-36.0) L Red Cell Distribution Width 14.4 % (11.6-14.8) Platelet Count 642 K/UL (150-450) H Mean Platelet Volume 7.6 FL (6.5-10.1) Neutrophils (%) (Auto) 52.1 % (45.0-75.0) Lymphocytes (%) (Auto) 37.6 % (20.0-45.0) Monocytes (%) (Auto) 8.8 % (1.0-10.0) Eosinophils (%) (Auto) 0.8 % (0.0-3.0) Basophils (%) (Auto) 0.7 % (0.0-2.0) Sodium Level 158 MMOL/L (136-145) H Potassium Level 3.8 MMOL/L (3.5-5.1) Chloride Level 116 MMOL/L (98-107) H Carbon Dioxide Level 29 MMOL/L (21-32) Anion Gap 13 mmol/L (5-15) Blood Urea Nitrogen 21 mg/dL (7-18) H Creatinine 0.9 MG/DL (0.55-1.30) Estimat Glomerular Filtration Rate > 60 mL/min (>60) Glucose Level 227 MG/DL (74-106) H Calcium Level 10.1 MG/DL (8.5-10.1) Plan Problems: (1) Hypernatremia (2) Dehydration (3) Hip fracture, left (4) Diabetes mellitus (5) History of hypertension (6) Severe protein-calorie malnutrition Assessment & Plan: DAILY ESTIMATED NEEDS: Needs based on Sepsis, DM/ 54kg 30-40 kcals/kg 7630-7485 total kcals 1.25-2 g protein/kg 68-108 g total protein 25-35ml/kcal mL/kg 8284-0031 total fluid mLs NUTRITION DIAGNOSIS: * Swallowing difficulty R/T dysphagia, as evidenced by Pt is GT dep. (CURRENT TF: Glucerna 1.5 @ 30ml/hr x 24 hrs) ENTERAL NUTRITION RECOMMENDATIONS: Glucerna 1.5 @ 60ml/hr x 20 hrs to provide 1200ml, 1800kcal, 99g prot, 911ml free water, 160g carbs * Rec to INCREASE TF GOAL to 60ml/hr for 20 hrs * HOB over 30 degrees, increased water flushes * TF at goal meets 100% est needs. -------- ADDITIONAL RECOMMENDATIONS: * Calibrated bedscale wt for accurate CBW * Monitor lytes daily w/ TF, replete as needed * Pt may require increase in insulin regimen for improved BG W/ continuous TF infusion * Wound healing: DOMENICA BID, F/up w/ WC eval . (7) Acute encephalopathy (8) Pressure Ulcer Of Sacral Region, Unstageable Assessment & Plan: Pt presented on admission with purple and indurated area at Sacrococcygeal at previously compromised site(L)7cm x (W)3cm.Surrounding Hyperpigmentation at Sacrum. Non-Blanching erythema without fluctuance R heel. Non-Blanching erythema with delineated margins L heel (L)4.5cm x (W)5.5cm. L Heel is boggy . Tx.Plan: Apply Moisture Barrier Paste to Sacrum. Cover with Optifoam drsgs. Change every 3 days and prn. Apply Cavilon Skin Barrier to R and L trochanter. Cover each site with Optifoam drsgs. Change every 7 days and prn. Apply Cavilon Skin Barrier to each heel and malleoli. Cover each site with Optifoam drsgs. Change every 7 days and prn. Reposition at least every 2hours or as tolerated. Off-load heels with pillow. (9) Feeding by G-tube (10) Abdominal distention (11) Multiple drug resistant organism (MDRO) culture positive (12) Sepsis (13) History of CVA (cerebrovascular accident) (14) Parkinson disease James Breen Jun 08, 2020 12:58
--- NOTE | 2020-06-08 14:11 | Infectious Diseases Prog Note ---
Assessment/Plan 79yo M with: Fever, SP Leukocytosis, SP KELLY, improving UTI 06/01 UA w/ pyuria, UCx + P Mirabilis ESBL 06/01 BCx Neg 06/01 CXR: No acute process COVID rapid test neg H/o ESBL Proteus in UCx in Oct 2019 Renal US w/ BL cysts PMH: DM2 Parkinson's dementia Bedridden G-tube Plan: Cont meropenem #[id number] 06/02 SP erta #1 06/01 SP cefepime, vanco, flagyl x1 in ED Monitor CBC/BMP Trend leukocytosis, KELLY Trend hemodynamics, temp curve D/w RN Thank you for this consult. [facility] will continue to follow. Subjective Allergies: Coded Allergies: No Known Allergies (Unverified , 08/27/19) afebrile no leuckocytosis Bcx Neg at RA Objective Last 24 Hour Vital Signs Date Time Temp Pulse Resp B/P (MAP) Pulse Ox O2 Delivery O2 Flow Rate FiO2 06/08/20 13:19 94 116/71 (86) 06/08/20 12:00 97.0 93 18 114/71 (85) 100 06/08/20 09:00 Room Air 06/08/20 08:00 96.5 93 18 127/71 (89) 96 06/08/20 04:00 98.3 96 17 128/74 (92) 96 06/08/20 00:12 97.9 98 18 132/66 (88) 96 06/07/20 20:42 Room Air 06/07/20 20:00 97.5 94 17 130/70 (90) 96 06/07/20 16:00 96.0 96 18 125/56 (79) 97 Height (Feet): 5 Height (Inches): 5.00 Weight (Pounds): 123 GENERAL: thin-appearing, male, in no apparent distress. HEENT: Eyes, pupils equal and responsive to light and accommodation. Extraocular movements are intact. NECK: Supple without lymphadenopathy. CHEST: Lungs are clear to auscultation bilaterally without wheezes or rales. CARDIOVASCULAR: Slightly tachycardic, regular rhythm. S1, S2 are normal without murmurs, rubs, or gallops. ABDOMEN: Soft, nontender, and nondistended. Positive bowel sounds. No evidence of hepatosplenomegaly. EXTREMITIES: Negative for clubbing, cyanosis, or edema. Laboratory Tests Test 06/08/20 05:43 White Blood Count 6.3 K/UL (4.8-10.8) Red Blood Count 3.73 M/UL (4.70-6.10) L Hemoglobin 11.4 G/DL (14.2-18.0) L Hematocrit 36.9 % (42.0-52.0) L Mean Corpuscular Volume 99 FL (80-99) Mean Corpuscular Hemoglobin 30.4 PG (27.0-31.0) Mean Corpuscular Hemoglobin Concent 30.8 G/DL (32.0-36.0) L Red Cell Distribution Width 14.4 % (11.6-14.8) Platelet Count 642 K/UL (150-450) H Mean Platelet Volume 7.6 FL (6.5-10.1) Neutrophils (%) (Auto) 52.1 % (45.0-75.0) Lymphocytes (%) (Auto) 37.6 % (20.0-45.0) Monocytes (%) (Auto) 8.8 % (1.0-10.0) Eosinophils (%) (Auto) 0.8 % (0.0-3.0) Basophils (%) (Auto) 0.7 % (0.0-2.0) Sodium Level 158 MMOL/L (136-145) H Potassium Level 3.8 MMOL/L (3.5-5.1) Chloride Level 116 MMOL/L (98-107) H Carbon Dioxide Level 29 MMOL/L (21-32) Anion Gap 13 mmol/L (5-15) Blood Urea Nitrogen 21 mg/dL (7-18) H Creatinine 0.9 MG/DL (0.55-1.30) Estimat Glomerular Filtration Rate > 60 mL/min (>60) Glucose Level 227 MG/DL (74-106) H Calcium Level 10.1 MG/DL (8.5-10.1) Current Medications Medications (Trade) Dose Ordered Sig/Debi Route PRN Reason Start Time Stop Time Status Last Admin Dose Admin Acetaminophen (Tylenol) 650 mg Q6H PRN GT Mild Pain (Pain Scale 1-3) 06/06/20 16:15 07/02/20 16:14 Amantadine HCl (Symmetrel) 100 mg TWICE A DAY GT 06/06/20 18:00 07/02/20 08:59 06/08/20 09:06 Aspirin (ASA) 81 mg DAILY GT 06/07/20 09:00 07/17/20 08:59 06/08/20 09:05 Dextrose 1,000 ml @ 100 mls/hr Q10H IV 06/08/20 11:30 07/08/20 11:29 06/08/20 12:02 Dextrose (Dextrose 50%) 25 ml Q30M PRN IV Hypoglycemia 06/06/20 16:15 09/02/20 09:44 Dextrose (Dextrose 50%) 50 ml Q30M PRN IV Hypoglycemia 06/06/20 16:15 09/02/20 09:44 Famotidine (Pepcid) 20 mg BID GT 06/06/20 18:00 09/01/20 17:59 06/08/20 09:05 Heparin Sodium (Porcine) (Heparin 5000 units/ml) 5,000 units EVERY 12 HOURS SUBQ 06/06/20 21:00 07/17/20 08:59 06/08/20 09:07 Insulin Aspart (NovoLOG) EVERY 4 HOURS SUBQ 06/06/20 17:00 09/02/20 12:59 06/08/20 10:27 Meropenem 1 gm/ Sodium Chloride 55 ml @ 110 mls/hr Q12HR IVPB 06/06/20 21:00 06/12/20 23:59 06/08/20 09:13 Midodrine (Pro-Amatine) 2.5 mg THREE TIMES A DAY ORAL 06/06/20 18:00 09/04/20 10:59 06/07/20 17:43 Potassium Chloride (K-Dur) 20 meq TWICE A DAY GT 06/06/20 18:00 09/03/20 17:59 06/08/20 09:05 Pravastatin Sodium (Pravachol) 20 mg BEDTIME GT 06/06/20 21:00 07/02/20 20:59 06/07/20 20:00 Sennosides (Senokot) 8.6 mg DAILY GT 06/07/20 09:00 07/02/20 08:59 06/08/20 09:06 Blaire Greenwood M.D. Jun 08, 2020 14:11
--- NOTE | 2020-06-08 14:37 | NUR ---
CASE MANAGEMENT:REVIEW SI;SEPSIS. MDRO (MULTI DRUG RESISTANT ORGANISM) 98.3 98 18 132/66 96% ON RA NA 158 CL 116 BUN 21 BG 227 IS;IVF D5 @ 100 ML/HR ASA GT QD MEROPENEM IV Q12 HEPARIN SUBQ Q12 SYMMETREL GT BID K-DUR GT BID MIDODRINE GT TID PEPCID GT BID MED SURG STATUS DCP;[facility]
--- NOTE | 2020-06-08 18:35 | Internal Med Progress Note ---
Subjective Date of Service: Jun 08, 2020 Physician Name Cobb,Tello Attending Physician Cirilo Rome MD Current Medications Medications (Trade) Dose Ordered Sig/Debi Route PRN Reason Start Time Stop Time Status Last Admin Dose Admin Acetaminophen (Tylenol) 650 mg Q6H PRN GT Mild Pain (Pain Scale 1-3) 06/06/20 16:15 07/02/20 16:14 Amantadine HCl (Symmetrel) 100 mg TWICE A DAY GT 06/06/20 18:00 07/02/20 08:59 06/08/20 09:06 Aspirin (ASA) 81 mg DAILY GT 06/07/20 09:00 07/17/20 08:59 06/08/20 09:05 Dextrose 1,000 ml @ 100 mls/hr Q10H IV 06/08/20 11:30 07/08/20 11:29 06/08/20 12:02 Dextrose (Dextrose 50%) 25 ml Q30M PRN IV Hypoglycemia 06/06/20 16:15 09/02/20 09:44 Dextrose (Dextrose 50%) 50 ml Q30M PRN IV Hypoglycemia 06/06/20 16:15 09/02/20 09:44 Famotidine (Pepcid) 20 mg BID GT 06/06/20 18:00 09/01/20 17:59 06/08/20 09:05 Heparin Sodium (Porcine) (Heparin 5000 units/ml) 5,000 units EVERY 12 HOURS SUBQ 06/06/20 21:00 07/17/20 08:59 06/08/20 09:07 Insulin Aspart (NovoLOG) EVERY 4 HOURS SUBQ 06/06/20 17:00 09/02/20 12:59 06/08/20 14:28 Meropenem 1 gm/ Sodium Chloride 55 ml @ 110 mls/hr Q12HR IVPB 06/06/20 21:00 06/12/20 23:59 06/08/20 09:13 Midodrine (Pro-Amatine) 2.5 mg THREE TIMES A DAY ORAL 06/06/20 18:00 09/04/20 10:59 06/07/20 17:43 Potassium Chloride (K-Dur) 20 meq TWICE A DAY GT 06/06/20 18:00 09/03/20 17:59 06/08/20 09:05 Pravastatin Sodium (Pravachol) 20 mg BEDTIME GT 06/06/20 21:00 07/02/20 20:59 06/07/20 20:00 Sennosides (Senokot) 8.6 mg DAILY GT 06/07/20 09:00 07/02/20 08:59 06/08/20 09:06 Allergies: Coded Allergies: No Known Allergies (Unverified , 08/27/19) ROS Limited/Unobtainable: Yes Subjective 79 YO M admitted with hyperglycemia and hypernatremia. Now UTI. Cover for Int Med-Dr Rome Objective Last Vital Signs Date Time Temp Pulse Resp B/P (MAP) Pulse Ox O2 Delivery O2 Flow Rate FiO2 06/08/20 16:00 97.2 96 17 119/68 (85) 97 06/08/20 09:00 Room Air 06/01/20 22:30 3.0 Laboratory Tests Test 06/08/20 05:43 White Blood Count 6.3 K/UL (4.8-10.8) Red Blood Count 3.73 M/UL (4.70-6.10) L Hemoglobin 11.4 G/DL (14.2-18.0) L Hematocrit 36.9 % (42.0-52.0) L Mean Corpuscular Volume 99 FL (80-99) Mean Corpuscular Hemoglobin 30.4 PG (27.0-31.0) Mean Corpuscular Hemoglobin Concent 30.8 G/DL (32.0-36.0) L Red Cell Distribution Width 14.4 % (11.6-14.8) Platelet Count 642 K/UL (150-450) H Mean Platelet Volume 7.6 FL (6.5-10.1) Neutrophils (%) (Auto) 52.1 % (45.0-75.0) Lymphocytes (%) (Auto) 37.6 % (20.0-45.0) Monocytes (%) (Auto) 8.8 % (1.0-10.0) Eosinophils (%) (Auto) 0.8 % (0.0-3.0) Basophils (%) (Auto) 0.7 % (0.0-2.0) Sodium Level 158 MMOL/L (136-145) H Potassium Level 3.8 MMOL/L (3.5-5.1) Chloride Level 116 MMOL/L (98-107) H Carbon Dioxide Level 29 MMOL/L (21-32) Anion Gap 13 mmol/L (5-15) Blood Urea Nitrogen 21 mg/dL (7-18) H Creatinine 0.9 MG/DL (0.55-1.30) Estimat Glomerular Filtration Rate > 60 mL/min (>60) Glucose Level 227 MG/DL (74-106) H Calcium Level 10.1 MG/DL (8.5-10.1) Intake and Output 06/07/20 06/08/20 19:00 07:00 Intake Total 650 ml 875 ml Output Total 1000 ml 700 ml Balance -350 ml 175 ml Free Water 200 ml IV Total 55 ml Tube Feeding 650 ml 620 ml Output Urine Total 1000 ml 700 ml # Voids 1 # Bowel Movements 2 1 Objective PHYSICAL EXAMINATION: GENERAL: The patient is a well-developed, well-nourished, thin-appearing, male, in no apparent distress. HEENT: Eyes, pupils equal and responsive to light and accommodation. Extraocular movements are intact. NECK: Supple without lymphadenopathy. CHEST: Lungs are clear to auscultation bilaterally without wheezes or rales. CARDIOVASCULAR: Slightly tachycardic, regular rhythm. S1, S2 are normal without murmurs, rubs, or gallops. ABDOMEN: Soft, nontender, and nondistended. Positive bowel sounds. No evidence of hepatosplenomegaly. Currently, no rebound or guarding noted. EXTREMITIES: Negative for clubbing, cyanosis, or edema. RECTAL: Not performed. GENITAL: Not performed. NEUROLOGIC: Cranial nerves II through XII are grossly intact without focal deficits. Assessment/Plan Assessment/Plan ASSESSMENT: This is a 79-year-old male with: 1. Hyperglycemia. 2. Hypernatremia. 3. Urinary tract infection=MDR proteus. 4. Diabetes type 2. 5. Hypertension. 6. Hypercholesterolemia. 7. Dysphagia. 8. Parkinson disease. 9. Ulcerative proctitis. 10. Protein-calorie malnutrition. 11. History of sacral decubitus ulcer stage IV. 12. Benign prostatic hypertrophy. 13. Gastroesophageal reflux disease. 14. Metabolic encephalopathy. 15. History of left hip fracture. TREATMENT: 1. Hyperglycemia/diabetes. The patient has been placed on a protocol using NovoLog sliding scale. The patient's blood sugars have been running in 300s. Hyperglycemia may be secondary to urinary tract infection. 2. Urinary tract infection. Urine culture =MDR proteus. ABX= meropenem. results.ID=Dr Oliva 3. Hypertension. Continue amlodipine as above. 4. Hypercholesterolemia. Continue atorvastatin as above. 5. Dysphagia. The patient is status post PEG placement. 6. Parkinson disease. Continue amantadine as above. 7. Ulcerative proctitis. 8. Protein-calorie malnutrition. 9. Sacral decubitus ulcer stage IV. 10. Benign prostatic hypertrophy. Continue tamsulosin as above. 11. Gastroesophageal reflux disease. 12. Metabolic encephalopathy. 13. History of left hip fracture. Tello Cobb MD Jun 08, 2020 18:35
--- NOTE | 2020-06-08 19:04 | NUR ---
NURSE NOTES: Patient tolerating g-tube feedings,resting at this time.IV fluids infusing as ordered.Skin care given,turned and position.HOB is elevated.Bed alarm is on,call light within reach.
--- NOTE | 2020-06-08 19:30 | NUR ---
NURSE NOTES: Patient asleep in bed, no signs of pain, no SOB noted. With Gtube connected to feeding. For accucheck every 4 hours. With Adams catheter intact and draining well. IV access on the right hand connected to D5W @ 100 cc per hour x 1 bag only. Call light in reach. Bed in lowest, lock engaged and alarm on. Will continue to monitor.
--- NOTE | 2020-06-08 19:40 | NUR ---
NURSE HAND-OFF: Shea TURNER Important Events on Shift:[] Patient Status: [] Diet: []G-tube feedings Pending Orders: [] Pending Results/Labs:[] Pending MD notification:[] Latest Vital Signs: Temperature 97.2 , Pulse 96 , B/P 119 /68 , Respiratory Rate 17 , O2 SAT 97 , Room Air, O2 Flow Rate 3.0 . Vital Sign Comment: [] Latest Lane Fall Score: 70 Fall Risk: High Risk Safety Measures: Call light Within Reach, Bed Alarm Zone 1, Side Rails Side Rails x3, Bed position Low and Locked. Fall Precautions: y Yellow Socks y Yellow Gown y Door Sign y Patient Fall Education Report given to [].
[2020-06-09] VITALS (7 sets, daily range): BP systolic 113–155; BP diastolic 68–91
[2020-06-09] MEDS: NovoLOG Insulin Flexpen SUBQ SCH ×6 (01:05→20:44)
[2020-06-09 06:49] LABS: BASOPHILS % (AUTO) 2.6 % (0.0-2.0); EOSINOPHILS % (AUTO) 1.5 % (0.0-3.0); HEMATOCRIT 35.8 % (42.0-52.0); HEMOGLOBIN 11.1 G/DL (14.2-18.0); LYMPHOCYTES % (AUTO) 28.1 % (20.0-45.0); MEAN CORPUSCULAR VOLUME 99 FL (80-99); MONOCYTES % (AUTO) 10.8 % (1.0-10.0); PLATELET COUNT 634 K/UL (150-450); RED BLOOD COUNT 3.63 M/UL (4.70-6.10); RED CELL DISTRIBUTION WIDTH 14.4 % (11.6-14.8); WHITE BLOOD COUNT 6.8 K/UL (4.8-10.8)
--- NOTE | 2020-06-09 06:56 | General Progress Note ---
Assessment/Plan Problem List: (1) Hypernatremia ICD Codes: E87.0 - Hyperosmolality and hypernatremia SNOMED: 791965115 (2) Feeding by G-tube ICD Codes: Z93.1 - Gastrostomy status SNOMED: 056697271, 830544505, 742698799 (3) Diabetes mellitus ICD Codes: E11.9 - Type 2 diabetes mellitus without complications SNOMED: 87680252 (4) History of CVA (cerebrovascular accident) ICD Codes: Z86.73 - Personal history of transient ischemic attack (TIA), and cerebral infarction without residual deficits SNOMED: 603407827 (5) Parkinson disease ICD Codes: G20 - Parkinson's disease SNOMED: 52286541 Assessment/Plan: add Levemir 8 units daily continue Novolog sliding scale high dose every 4 hours continue to hold Metformin due to lactic acidosis on presentation Subjective ROS Limited/Unobtainable: Yes Allergies: Coded Allergies: No Known Allergies (Unverified , 08/27/19) Subjective events noted - interval notes reviewed glucose values on higher side yesterday due to one bag of D5W Item Value Date Time Bedside Blood Glucose 212 mg/dl H 06/09/20 0429 Bedside Blood Glucose 156 mg/dl H 06/09/20 0105 Bedside Blood Glucose 175 mg/dl H 06/08/20 2035 Bedside Blood Glucose 192 mg/dl H 06/08/20 1839 Bedside Blood Glucose 220 mg/dl H 06/08/20 1428 Bedside Blood Glucose 292 mg/dl H 06/08/20 1027 Objective Last 24 Hour Vital Signs Date Time Temp Pulse Resp B/P (MAP) Pulse Ox O2 Delivery O2 Flow Rate FiO2 06/09/20 04:00 97.4 96 19 113/74 (87) 98 06/09/20 00:00 97.5 91 19 122/71 (88) 97 06/08/20 21:00 Room Air 06/08/20 20:00 97.7 100 19 125/88 (100) 100 06/08/20 16:00 97.2 96 17 119/68 (85) 97 06/08/20 13:19 94 116/71 (86) 06/08/20 12:00 97.0 93 18 114/71 (85) 100 06/08/20 09:00 Room Air 06/08/20 08:00 96.5 93 18 127/71 (89) 96 Intake and Output 06/08/20 06/09/20 19:00 07:00 Intake Total 1675 ml 915 ml Output Total 500 ml Balance 1175 ml 915 ml Free Water 200 ml 200 ml IV Total 755 ml 55 ml Tube Feeding 720 ml 660 ml Output Urine Total 500 ml Laboratory Tests 06/09/20 06:25: White Blood Count [Pending], Red Blood Count [Pending], Hemoglobin [Pending], Hematocrit [Pending], Mean Corpuscular Volume [Pending], Mean Corpuscular Hemoglobin [Pending], Mean Corpuscular Hemoglobin Concent [Pending], Red Cell Distribution Width [Pending], Platelet Count [Pending], Mean Platelet Volume [ Pending], Neutrophils (%) (Auto) [Pending], Lymphocytes (%) (Auto) [Pending], Monocytes (%) (Auto) [Pending], Eosinophils (%) (Auto) [Pending], Basophils (%) (Auto) [Pending], Sodium Level [Pending], Potassium Level [Pending], Chloride Level [Pending], Carbon Dioxide Level [Pending], Blood Urea Nitrogen [Pending], Creatinine [Pending], Estimat Glomerular Filtration Rate [Pending], Glucose Level [Pending], Calcium Level [Pending], Phosphorus Level [Pending], Magnesium Level [Pending], Total Bilirubin [Pending], Aspartate Amino Transf (AST/SGOT) [ Pending], Alanine Aminotransferase (ALT/SGPT) [Pending], Alkaline Phosphatase [ Pending], Total Protein [Pending], Albumin [Pending], Globulin [Pending] Height (Feet): 5 Height (Inches): 5.00 Weight (Pounds): 123 General Appearance: no apparent distress Neck: normal alignment Cardiovascular: normal rate Respiratory/Chest: decreased breath sounds Abdomen: normal bowel sounds Objective Current Medications Medications (Trade) Dose Ordered Sig/Debi Route PRN Reason Start Time Stop Time Status Last Admin Dose Admin Acetaminophen (Tylenol) 650 mg Q6H PRN GT Mild Pain (Pain Scale 1-3) 06/06/20 16:15 07/02/20 16:14 Amantadine HCl (Symmetrel) 100 mg TWICE A DAY GT 06/06/20 18:00 07/02/20 08:59 06/08/20 18:48 Aspirin (ASA) 81 mg DAILY GT 06/07/20 09:00 07/17/20 08:59 06/08/20 09:05 Dextrose (Dextrose 50%) 25 ml Q30M PRN IV Hypoglycemia 06/06/20 16:15 09/02/20 09:44 Dextrose (Dextrose 50%) 50 ml Q30M PRN IV Hypoglycemia 06/06/20 16:15 09/02/20 09:44 Famotidine (Pepcid) 20 mg BID GT 06/06/20 18:00 09/01/20 17:59 06/08/20 18:48 Heparin Sodium (Porcine) (Heparin 5000 units/ml) 5,000 units EVERY 12 HOURS SUBQ 06/06/20 21:00 07/17/20 08:59 06/08/20 20:32 Insulin Aspart (NovoLOG) EVERY 4 HOURS SUBQ 06/06/20 17:00 09/02/20 12:59 06/09/20 04:29 Meropenem 1 gm/ Sodium Chloride 55 ml @ 110 mls/hr Q12HR IVPB 06/06/20 21:00 06/12/20 23:59 06/08/20 20:27 Midodrine (Pro-Amatine) 2.5 mg THREE TIMES A DAY ORAL 06/06/20 18:00 09/04/20 10:59 06/07/20 17:43 Potassium Chloride (K-Dur) 20 meq TWICE A DAY GT 06/06/20 18:00 09/03/20 17:59 06/08/20 18:48 Pravastatin Sodium (Pravachol) 20 mg BEDTIME GT 06/06/20 21:00 07/02/20 20:59 06/08/20 20:24 Sennosides (Senokot) 8.6 mg DAILY GT 06/07/20 09:00 07/02/20 08:59 06/08/20 09:06 Gregory Pastrana MD Jun 09, 2020 06:56
[2020-06-09 07:19] LABS: ALANINE AMINOTRANSFERASE 28 U/L (12-78); ALBUMIN 2.4 G/DL (3.4-5.0); ALBUMIN/GLOBULIN RATIO 0.4 (1.0-2.7); ALKALINE PHOSPHATASE 225 U/L (46-116); ANION GAP 6 mmol/L (5-15); ASPARTATE AMINO TRANSFERASE 45 U/L (15-37); BILIRUBIN,TOTAL 0.3 MG/DL (0.2-1.0); BLOOD UREA NITROGEN 26 mg/dL (7-18); CALCIUM 10.1 MG/DL (8.5-10.1); CARBON DIOXIDE 33 MMOL/L (21-32); CHLORIDE 117 MMOL/L (98-107); PHOSPHORUS 1.8 MG/DL (2.5-4.9); POTASSIUM 5.6 MMOL/L (3.5-5.1); SODIUM 156 MMOL/L (136-145)
--- NOTE | 2020-06-09 07:28 | NUR ---
NURSE HAND-OFF: Important Events on Shift:Accucheck every 4 hours Patient Status: Stable Diet: Glucerna 1.5 @ 60cc/hr Pending Orders: CMP, Phos, Mg, CBC Pending Results/Labs: Pending MD notification: Latest Vital Signs: Temperature 97.4 , Pulse 96 , B/P 113 /74 , Respiratory Rate 19 , O2 SAT 98 , Room Air, O2 Flow Rate 3.0 . Vital Sign Comment: Latest Lane Fall Score: 70 Fall Risk: High Risk Safety Measures: Call light Within Reach, Bed Alarm Zone 1, Side Rails Side Rails x3, Bed position Low and Locked. Fall Precautions: Yellow Socks Yellow Gown Door Sign Patient Fall Education Report given to JOHNNY Fowler.
--- NOTE | 2020-06-09 08:00 | NUR ---
NURSE NOTES: Patient alert to name,respirations unlabored.G-tube feedings ongoing as ordered.No residual noted.Adams catheter is in place and noted clear yellow urine in collection bag.HOB is elevated.Bed alarm is on,call light within reach.
[2020-06-09] MEDS: Aspirin Baby 81mg GT SCH (08:41)
[2020-06-09] MEDS: Sennosides 8.6mg tab GT SCH (08:42)
[2020-06-09] MEDS: Amantadine 100mg cap GT SCH ×2 (08:42→17:47)
[2020-06-09] MEDS: Levemir Flexpen SUBQ SCH (08:51)
[2020-06-09] MEDS: Heparin 5000 units/ml inj SUBQ SCH ×2 (08:53→20:43)
[2020-06-09] MEDS: Meropenem 1 GM in NS 55 ML IVPB SCH ×2 (08:57→20:55)
--- NOTE | 2020-06-09 12:45 | Pulmonology Progress Note ---
Subjective ROS Limited/Unobtainable: Yes Constitutional: Denies: no symptoms, fever, chills, fatigue, anorexia, drenching sweats, other HEENT: Repors: no symptoms Respiratory: Reports: no symptoms Allergies: Coded Allergies: No Known Allergies (Unverified , 08/27/19) All Systems: reviewed and negative except above Objective Last 24 Hour Vital Signs Date Time Temp Pulse Resp B/P (MAP) Pulse Ox O2 Delivery O2 Flow Rate FiO2 06/09/20 09:00 Room Air 06/09/20 08:00 97.0 90 20 136/83 (100) 99 06/09/20 04:00 97.4 96 19 113/74 (87) 98 06/09/20 00:00 97.5 91 19 122/71 (88) 97 06/08/20 21:00 Room Air 06/08/20 20:00 97.7 100 19 125/88 (100) 100 06/08/20 16:00 97.2 96 17 119/68 (85) 97 06/08/20 13:19 94 116/71 (86) Intake and Output 06/08/20 06/09/20 19:00 07:00 Intake Total 1675 ml 915 ml Output Total 500 ml Balance 1175 ml 915 ml Free Water 200 ml 200 ml IV Total 755 ml 55 ml Tube Feeding 720 ml 660 ml Output Urine Total 500 ml General Appearance: cachetic HEENT: normocephalic, atraumatic Respiratory: chest wall non-tender, normal breath sounds Cardiovascular: normal peripheral pulses, normal rate Abdomen: soft, non tender, no organomegaly, no scars Skin: no rash Neurologic: oriented x 3 Lymphatic: no neck adenopathy Laboratory Tests 06/08/20 14:22: POC Whole Blood Glucose 220H 06/08/20 18:35: POC Whole Blood Glucose [Pending] 06/08/20 20:18: POC Whole Blood Glucose [Pending] 06/09/20 01:03: POC Whole Blood Glucose [Pending] 06/09/20 04:25: POC Whole Blood Glucose [Pending] 06/09/20 06:25: White Blood Count 6.8, Red Blood Count 3.63L, Hemoglobin 11.1L, Hematocrit 35.8L , Mean Corpuscular Volume 99, Mean Corpuscular Hemoglobin 30.6, Mean Corpuscular Hemoglobin Concent 31.0L, Red Cell Distribution Width 14.4, Platelet Count 634H, Mean Platelet Volume 7.7, Neutrophils (%) (Auto) 57.0, Lymphocytes (%) (Auto) 28.1, Monocytes (%) (Auto) 10.8H, Eosinophils (%) (Auto) 1.5, Basophils (%) (Auto) 2.6H, Sodium Level 156H, Potassium Level 5.0, Chloride Level 117H, Carbon Dioxide Level 33H, Anion Gap 6, Blood Urea Nitrogen 26H, Creatinine 1.0, Estimat Glomerular Filtration Rate > 60, Glucose Level 210H , Calcium Level 10.1, Phosphorus Level 1.8L, Magnesium Level 2.4, Total Bilirubin 0.3, Aspartate Amino Transf (AST/SGOT) 45H, Alanine Aminotransferase ( ALT/SGPT) 28, Alkaline Phosphatase 225H, Total Protein 8.9H, Albumin 2.4L, Globulin 6.5, Albumin/Globulin Ratio 0.4L 06/09/20 08:44: POC Whole Blood Glucose [Pending] Current Medications Medications (Trade) Dose Ordered Sig/Debi Route PRN Reason Start Time Stop Time Status Last Admin Dose Admin Acetaminophen (Tylenol) 650 mg Q6H PRN GT Mild Pain (Pain Scale 1-3) 06/06/20 16:15 07/02/20 16:14 Amantadine HCl (Symmetrel) 100 mg TWICE A DAY GT 06/06/20 18:00 07/02/20 08:59 06/09/20 08:42 Aspirin (ASA) 81 mg DAILY GT 06/07/20 09:00 07/17/20 08:59 06/09/20 08:41 Dextrose 1,000 ml @ 100 mls/hr Q10H IV 06/09/20 09:00 07/09/20 08:59 06/09/20 11:29 Dextrose (Dextrose 50%) 25 ml Q30M PRN IV Hypoglycemia 06/06/20 16:15 09/02/20 09:44 Dextrose (Dextrose 50%) 50 ml Q30M PRN IV Hypoglycemia 06/06/20 16:15 09/02/20 09:44 Famotidine (Pepcid) 20 mg BID GT 06/06/20 18:00 09/01/20 17:59 06/09/20 08:42 Heparin Sodium (Porcine) (Heparin 5000 units/ml) 5,000 units EVERY 12 HOURS SUBQ 06/06/20 21:00 07/17/20 08:59 06/09/20 08:53 Insulin Aspart (NovoLOG) EVERY 4 HOURS SUBQ 06/06/20 17:00 09/02/20 12:59 06/09/20 08:47 Insulin Detemir (Levemir) 8 units DAILY SUBQ 06/09/20 09:00 09/07/20 08:59 06/09/20 08:51 Meropenem 1 gm/ Sodium Chloride 55 ml @ 110 mls/hr Q12HR IVPB 06/06/20 21:00 06/12/20 23:59 06/09/20 08:57 Midodrine (Pro-Amatine) 2.5 mg THREE TIMES A DAY ORAL 06/06/20 18:00 09/04/20 10:59 06/07/20 17:43 Pravastatin Sodium (Pravachol) 20 mg BEDTIME GT 06/06/20 21:00 07/02/20 20:59 06/08/20 20:24 Sennosides (Senokot) 8.6 mg DAILY GT 06/07/20 09:00 07/02/20 08:59 06/09/20 08:42 Assessment/Plan Problems: (1) Sepsis (2) Multiple drug resistant organism (MDRO) culture positive (3) Diabetes mellitus (4) Feeding by G-tube (5) Severe protein-calorie malnutrition (6) Parkinson disease (7) History of hypertension (8) History of CVA (cerebrovascular accident) Assessment/Plan electrolytes fluctuating Improving ronquillo culture, Urine has proteus,, COVID Negative iv abx iv fluids renal studies urine electrolytes. sliding scale Latanya Mckeon MD Jun 09, 2020 12:45
--- NOTE | 2020-06-09 13:16 | NUR ---
DISCHARGE PLANNING PATIENT HAS BEEN REFERRED BACK TO [facility] P: [phone] F: [phone] Addendum: 06/09/20 at 1559 by KENNETH MONTE LVN LVN S/Karli MCDANIEL, PATIENT ACCEPTED TO RETURN UPON DC. BED 18-A JAIL MESSAGE LEFT FOR AWAITING CALL BACK IN RE TO DC ORDER.
--- NOTE | 2020-06-09 13:26 | Surgery Progress Note ---
Surgery Progress Note Subjective Additional Comments no acute events comfortable awake responsive no complaints labs improved Objective Last 24 Hour Vital Signs Date Time Temp Pulse Resp B/P (MAP) Pulse Ox O2 Delivery O2 Flow Rate FiO2 06/09/20 12:00 96.3 91 18 122/73 (89) 97 06/09/20 09:00 Room Air 06/09/20 08:00 97.0 90 20 136/83 (100) 99 06/09/20 04:00 97.4 96 19 113/74 (87) 98 06/09/20 00:00 97.5 91 19 122/71 (88) 97 06/08/20 21:00 Room Air 06/08/20 20:00 97.7 100 19 125/88 (100) 100 06/08/20 16:00 97.2 96 17 119/68 (85) 97 I&O Intake and Output 06/08/20 06/09/20 19:00 07:00 Intake Total 1675 ml 915 ml Output Total 500 ml Balance 1175 ml 915 ml Free Water 200 ml 200 ml IV Total 755 ml 55 ml Tube Feeding 720 ml 660 ml Output Urine Total 500 ml Dressing: saturated Wound: other Cardiovascular: RSR Respiratory: decreased breath sounds Abdomen: soft, non-tender, present bowel sounds Extremities: no tenderness, no cyanosis Laboratory Tests Test 06/08/20 14:22 06/08/20 18:35 06/08/20 20:18 06/09/20 01:03 POC Whole Blood Glucose 220 MG/DL (74-106) H Pending Pending Pending Test 06/09/20 04:25 06/09/20 06:25 06/09/20 08:44 POC Whole Blood Glucose Pending Pending White Blood Count 6.8 K/UL (4.8-10.8) Red Blood Count 3.63 M/UL (4.70-6.10) L Hemoglobin 11.1 G/DL (14.2-18.0) L Hematocrit 35.8 % (42.0-52.0) L Mean Corpuscular Volume 99 FL (80-99) Mean Corpuscular Hemoglobin 30.6 PG (27.0-31.0) Mean Corpuscular Hemoglobin Concent 31.0 G/DL (32.0-36.0) L Red Cell Distribution Width 14.4 % (11.6-14.8) Platelet Count 634 K/UL (150-450) H Mean Platelet Volume 7.7 FL (6.5-10.1) Neutrophils (%) (Auto) 57.0 % (45.0-75.0) Lymphocytes (%) (Auto) 28.1 % (20.0-45.0) Monocytes (%) (Auto) 10.8 % (1.0-10.0) H Eosinophils (%) (Auto) 1.5 % (0.0-3.0) Basophils (%) (Auto) 2.6 % (0.0-2.0) H Sodium Level 156 MMOL/L (136-145) H Potassium Level 5.0 MMOL/L (3.5-5.1) Chloride Level 117 MMOL/L (98-107) H Carbon Dioxide Level 33 MMOL/L (21-32) H Anion Gap 6 mmol/L (5-15) Blood Urea Nitrogen 26 mg/dL (7-18) H Creatinine 1.0 MG/DL (0.55-1.30) Estimat Glomerular Filtration Rate > 60 mL/min (>60) Glucose Level 210 MG/DL (74-106) H Calcium Level 10.1 MG/DL (8.5-10.1) Phosphorus Level 1.8 MG/DL (2.5-4.9) L Magnesium Level 2.4 MG/DL (1.8-2.4) Total Bilirubin 0.3 MG/DL (0.2-1.0) Aspartate Amino Transf (AST/SGOT) 45 U/L (15-37) H Alanine Aminotransferase (ALT/SGPT) 28 U/L (12-78) Alkaline Phosphatase 225 U/L (46-116) H Total Protein 8.9 G/DL (6.4-8.2) H Albumin 2.4 G/DL (3.4-5.0) L Globulin 6.5 g/dL Albumin/Globulin Ratio 0.4 (1.0-2.7) L Plan Problems: (1) Hypernatremia (2) Dehydration (3) Hip fracture, left (4) Diabetes mellitus (5) History of hypertension (6) Severe protein-calorie malnutrition Assessment & Plan: DAILY ESTIMATED NEEDS: Needs based on Sepsis, DM/ 54kg 30-40 kcals/kg 8522-3083 total kcals 1.25-2 g protein/kg 68-108 g total protein 25-35ml/kcal mL/kg 5049-5288 total fluid mLs NUTRITION DIAGNOSIS: * Swallowing difficulty R/T dysphagia, as evidenced by Pt is GT dep. (CURRENT TF: Glucerna 1.5 @ 30ml/hr x 24 hrs) ENTERAL NUTRITION RECOMMENDATIONS: Glucerna 1.5 @ 60ml/hr x 20 hrs to provide 1200ml, 1800kcal, 99g prot, 911ml free water, 160g carbs * Rec to INCREASE TF GOAL to 60ml/hr for 20 hrs * HOB over 30 degrees, increased water flushes * TF at goal meets 100% est needs. -------- ADDITIONAL RECOMMENDATIONS: * Calibrated bedscale wt for accurate CBW * Monitor lytes daily w/ TF, replete as needed * Pt may require increase in insulin regimen for improved BG W/ continuous TF infusion * Wound healing: DOMENICA BID, F/up w/ WC eval . (7) Acute encephalopathy (8) Pressure Ulcer Of Sacral Region, Unstageable Assessment & Plan: Pt presented on admission with purple and indurated area at Sacrococcygeal at previously compromised site(L)7cm x (W)3cm.Surrounding Hyperpigmentation at Sacrum. Non-Blanching erythema without fluctuance R heel. Non-Blanching erythema with delineated margins L heel (L)4.5cm x (W)5.5cm. L Heel is boggy . Tx.Plan: Apply Moisture Barrier Paste to Sacrum. Cover with Optifoam drsgs. Change every 3 days and prn. Apply Cavilon Skin Barrier to R and L trochanter. Cover each site with Optifoam drsgs. Change every 7 days and prn. Apply Cavilon Skin Barrier to each heel and malleoli. Cover each site with Optifoam drsgs. Change every 7 days and prn. Reposition at least every 2hours or as tolerated. Off-load heels with pillow. improving cont current care tube site okay (9) Feeding by G-tube (10) Abdominal distention (11) Multiple drug resistant organism (MDRO) culture positive (12) Sepsis (13) History of CVA (cerebrovascular accident) (14) Parkinson disease James Breen Jun 09, 2020 13:26
--- NOTE | 2020-06-09 13:54 | Infectious Diseases Prog Note ---
Assessment/Plan 79yo M with: Fever, SP Leukocytosis, SP KELLY, improving UTI 06/01 UA w/ pyuria, UCx + P Mirabilis ESBL 06/01 BCx Neg 06/01 CXR: No acute process COVID rapid test neg H/o ESBL Proteus in UCx in Oct 2019 Renal US w/ BL cysts PMH: DM2 Parkinson's dementia Bedridden G-tube Plan: Cont meropenem #7/7 06/02 SP erta #1 06/01 SP cefepime, vanco, flagyl x1 in ED Monitor CBC/BMP Trend leukocytosis, KELLY Trend hemodynamics, temp curve D/w RN Thank you for this consult. [facility] will continue to follow. Subjective Allergies: Coded Allergies: No Known Allergies (Unverified , 08/27/19) afebrile no leuckocytosis Objective Last 24 Hour Vital Signs Date Time Temp Pulse Resp B/P (MAP) Pulse Ox O2 Delivery O2 Flow Rate FiO2 06/09/20 12:00 96.3 91 18 122/73 (89) 97 06/09/20 09:00 Room Air 06/09/20 08:00 97.0 90 20 136/83 (100) 99 06/09/20 04:00 97.4 96 19 113/74 (87) 98 06/09/20 00:00 97.5 91 19 122/71 (88) 97 06/08/20 21:00 Room Air 06/08/20 20:00 97.7 100 19 125/88 (100) 100 06/08/20 16:00 97.2 96 17 119/68 (85) 97 Height (Feet): 5 Height (Inches): 5.00 Weight (Pounds): 123 GENERAL: thin-appearing, male, in no apparent distress. NECK: Supple without lymphadenopathy. CHEST: Lungs are clear to auscultation bilaterally without wheezes or rales. CARDIOVASCULAR: Slightly tachycardic, regular rhythm. S1, S2 are normal without murmurs, rubs, or gallops. ABDOMEN: Soft, nontender, and nondistended. Positive bowel sounds. No evidence of hepatosplenomegaly. EXTREMITIES: Negative for clubbing, cyanosis, or edema. Laboratory Tests Test 06/08/20 14:22 06/08/20 18:35 8/26/20 20:18 06/09/20 01:03 POC Whole Blood Glucose 220 MG/DL (74-106) H Pending Pending Pending Test 06/09/20 04:25 06/09/20 06:25 06/09/20 08:44 POC Whole Blood Glucose Pending Pending White Blood Count 6.8 K/UL (4.8-10.8) Red Blood Count 3.63 M/UL (4.70-6.10) L Hemoglobin 11.1 G/DL (14.2-18.0) L Hematocrit 35.8 % (42.0-52.0) L Mean Corpuscular Volume 99 FL (80-99) Mean Corpuscular Hemoglobin 30.6 PG (27.0-31.0) Mean Corpuscular Hemoglobin Concent 31.0 G/DL (32.0-36.0) L Red Cell Distribution Width 14.4 % (11.6-14.8) Platelet Count 634 K/UL (150-450) H Mean Platelet Volume 7.7 FL (6.5-10.1) Neutrophils (%) (Auto) 57.0 % (45.0-75.0) Lymphocytes (%) (Auto) 28.1 % (20.0-45.0) Monocytes (%) (Auto) 10.8 % (1.0-10.0) H Eosinophils (%) (Auto) 1.5 % (0.0-3.0) Basophils (%) (Auto) 2.6 % (0.0-2.0) H Sodium Level 156 MMOL/L (136-145) H Potassium Level 5.0 MMOL/L (3.5-5.1) Chloride Level 117 MMOL/L (98-107) H Carbon Dioxide Level 33 MMOL/L (21-32) H Anion Gap 6 mmol/L (5-15) Blood Urea Nitrogen 26 mg/dL (7-18) H Creatinine 1.0 MG/DL (0.55-1.30) Estimat Glomerular Filtration Rate > 60 mL/min (>60) Glucose Level 210 MG/DL (74-106) H Calcium Level 10.1 MG/DL (8.5-10.1) Phosphorus Level 1.8 MG/DL (2.5-4.9) L Magnesium Level 2.4 MG/DL (1.8-2.4) Total Bilirubin 0.3 MG/DL (0.2-1.0) Aspartate Amino Transf (AST/SGOT) 45 U/L (15-37) H Alanine Aminotransferase (ALT/SGPT) 28 U/L (12-78) Alkaline Phosphatase 225 U/L (46-116) H Total Protein 8.9 G/DL (6.4-8.2) H Albumin 2.4 G/DL (3.4-5.0) L Globulin 6.5 g/dL Albumin/Globulin Ratio 0.4 (1.0-2.7) L Current Medications Medications (Trade) Dose Ordered Sig/Debi Route PRN Reason Start Time Stop Time Status Last Admin Dose Admin Acetaminophen (Tylenol) 650 mg Q6H PRN GT Mild Pain (Pain Scale 1-3) 06/06/20 16:15 07/02/20 16:14 Amantadine HCl (Symmetrel) 100 mg TWICE A DAY GT 06/06/20 18:00 07/02/20 08:59 06/09/20 08:42 Aspirin (ASA) 81 mg DAILY GT 06/07/20 09:00 07/17/20 08:59 06/09/20 08:41 Dextrose 1,000 ml @ 100 mls/hr Q10H IV 06/09/20 09:00 07/09/20 08:59 06/09/20 11:29 Dextrose (Dextrose 50%) 25 ml Q30M PRN IV Hypoglycemia 06/06/20 16:15 09/02/20 09:44 Dextrose (Dextrose 50%) 50 ml Q30M PRN IV Hypoglycemia 06/06/20 16:15 09/02/20 09:44 Famotidine (Pepcid) 20 mg BID GT 06/06/20 18:00 09/01/20 17:59 06/09/20 08:42 Heparin Sodium (Porcine) (Heparin 5000 units/ml) 5,000 units EVERY 12 HOURS SUBQ 06/06/20 21:00 07/17/20 08:59 06/09/20 08:53 Insulin Aspart (NovoLOG) EVERY 4 HOURS SUBQ 06/06/20 17:00 09/02/20 12:59 06/09/20 13:13 Insulin Detemir (Levemir) 8 units DAILY SUBQ 06/09/20 09:00 09/07/20 08:59 06/09/20 08:51 Meropenem 1 gm/ Sodium Chloride 55 ml @ 110 mls/hr Q12HR IVPB 06/06/20 21:00 06/12/20 23:59 06/09/20 08:57 Midodrine (Pro-Amatine) 2.5 mg THREE TIMES A DAY ORAL 06/06/20 18:00 09/04/20 10:59 06/07/20 17:43 Pravastatin Sodium (Pravachol) 20 mg BEDTIME GT 06/06/20 21:00 07/02/20 20:59 06/08/20 20:24 Sennosides (Senokot) 8.6 mg DAILY GT 06/07/20 09:00 07/02/20 08:59 06/09/20 08:42 Blaire Greenwood M.D. Jun 09, 2020 13:54
--- NOTE | 2020-06-09 14:13 | Nephrology Progress Note ---
Assessment/Plan Problem List: (1) Hypernatremia (2) Sepsis (3) History of CVA (cerebrovascular accident) (4) Parkinson disease (5) Feeding by G-tube (6) Dehydration Assessment KELLY, resolving, serum creatinine of 1.9 now down to 1.2 Hypernatremia, dehydration, free water deficit Sepsis Diabetes mellitus [id number] GT feeding Severe protein calorie malnutrition History of CVA History of hypertension Parkinson's disease Plan June 09: Labs reviewed. Discussed with RN. Serum potassium elevated. Suspect hemolysis. Will repeat serum potassium. DC all potassium supplements. June 08: Serum sodium higher. Will give 1 L of D5W. Renal parameters stable. Continue to monitor electrolytes. Continue per consultants. June 07: 1 bolus of D5W. Renal parameters stable. Serum sodium slightly high. Stable from renal standpoint of view. June 06: We will again discontinue the IV ordered. Stable from renal standpoint of view. Will start midodrine for low blood pressure. June 05: DC IV fluid. Potassium supplement given. Stable from renal standpoint to view. June 04: Potassium and magnesium supplement IV given, stable from renal standpoint of view. IV fluid D5W Monitor electrolytes Monitor renal parameters Hold blood pressure medication since blood pressure low Per orders, per consultants Subjective ROS Limited/Unobtainable: No Constitutional: Reports: malaise Objective Objective Last 24 Hour Vital Signs Date Time Temp Pulse Resp B/P (MAP) Pulse Ox O2 Delivery O2 Flow Rate FiO2 06/09/20 12:00 96.3 91 18 122/73 (89) 97 06/09/20 09:00 Room Air 06/09/20 08:00 97.0 90 20 136/83 (100) 99 06/09/20 04:00 97.4 96 19 113/74 (87) 98 06/09/20 00:00 97.5 91 19 122/71 (88) 97 06/08/20 21:00 Room Air 06/08/20 20:00 97.7 100 19 125/88 (100) 100 06/08/20 16:00 97.2 96 17 119/68 (85) 97 Intake and Output 06/08/20 06/09/20 19:00 07:00 Intake Total 1675 ml 915 ml Output Total 500 ml Balance 1175 ml 915 ml Free Water 200 ml 200 ml IV Total 755 ml 55 ml Tube Feeding 720 ml 660 ml Output Urine Total 500 ml Laboratory Tests 06/08/20 14:22: POC Whole Blood Glucose 220H 06/08/20 18:35: POC Whole Blood Glucose [Pending] 06/08/20 20:18: POC Whole Blood Glucose [Pending] 06/09/20 01:03: POC Whole Blood Glucose [Pending] 06/09/20 04:25: POC Whole Blood Glucose [Pending] 06/09/20 06:25: White Blood Count 6.8, Red Blood Count 3.63L, Hemoglobin 11.1L, Hematocrit 35.8L , Mean Corpuscular Volume 99, Mean Corpuscular Hemoglobin 30.6, Mean Corpuscular Hemoglobin Concent 31.0L, Red Cell Distribution Width 14.4, Platelet Count 634H, Mean Platelet Volume 7.7, Neutrophils (%) (Auto) 57.0, Lymphocytes (%) (Auto) 28.1, Monocytes (%) (Auto) 10.8H, Eosinophils (%) (Auto) 1.5, Basophils (%) (Auto) 2.6H, Sodium Level 156H, Potassium Level 5.0, Chloride Level 117H, Carbon Dioxide Level 33H, Anion Gap 6, Blood Urea Nitrogen 26H, Creatinine 1.0, Estimat Glomerular Filtration Rate > 60, Glucose Level 210H , Calcium Level 10.1, Phosphorus Level 1.8L, Magnesium Level 2.4, Total Bilirubin 0.3, Aspartate Amino Transf (AST/SGOT) 45H, Alanine Aminotransferase ( ALT/SGPT) 28, Alkaline Phosphatase 225H, Total Protein 8.9H, Albumin 2.4L, Globulin 6.5, Albumin/Globulin Ratio 0.4L 06/09/20 08:44: POC Whole Blood Glucose [Pending] Height (Feet): 5 Height (Inches): 5.00 Weight (Pounds): 123 General Appearance: no apparent distress Cardiovascular: tachycardia - Rate mid 90s Respiratory/Chest: decreased breath sounds Abdomen: soft Objective No change Eddie Nelson MD Jun 09, 2020 14:13
--- NOTE | 2020-06-09 18:07 | NUR ---
NURSE NOTES: Patient had a moderate brown liquid stool,skin care given. Turned and position.HOB is elevated.bed alarm on, call light within reach.Potassium level redrawn today .The latest potassium level results 5.0. orders were received earlier today to stop Potassium chloride as ordered.
--- NOTE | 2020-06-09 18:53 | Internal Med Progress Note ---
Subjective Date of Service: Jun 09, 2020 Physician Name Tello Cobb Attending Physician Cirilo Rome MD Current Medications Medications (Trade) Dose Ordered Sig/Debi Route PRN Reason Start Time Stop Time Status Last Admin Dose Admin Acetaminophen (Tylenol) 650 mg Q6H PRN GT Mild Pain (Pain Scale 1-3) 06/06/20 16:15 07/02/20 16:14 Amantadine HCl (Symmetrel) 100 mg TWICE A DAY GT 06/06/20 18:00 07/02/20 08:59 06/09/20 17:47 Aspirin (ASA) 81 mg DAILY GT 06/07/20 09:00 07/17/20 08:59 06/09/20 08:41 Dextrose 1,000 ml @ 100 mls/hr Q10H IV 06/09/20 09:00 07/09/20 08:59 06/09/20 11:29 Dextrose (Dextrose 50%) 25 ml Q30M PRN IV Hypoglycemia 06/06/20 16:15 09/02/20 09:44 Dextrose (Dextrose 50%) 50 ml Q30M PRN IV Hypoglycemia 06/06/20 16:15 09/02/20 09:44 Famotidine (Pepcid) 20 mg BID GT 06/06/20 18:00 09/01/20 17:59 06/09/20 17:47 Heparin Sodium (Porcine) (Heparin 5000 units/ml) 5,000 units EVERY 12 HOURS SUBQ 06/06/20 21:00 07/17/20 08:59 06/09/20 08:53 Insulin Aspart (NovoLOG) EVERY 4 HOURS SUBQ 06/06/20 17:00 09/02/20 12:59 06/09/20 17:22 Insulin Detemir (Levemir) 8 units DAILY SUBQ 06/09/20 09:00 09/07/20 08:59 06/09/20 08:51 Meropenem 1 gm/ Sodium Chloride 55 ml @ 110 mls/hr Q12HR IVPB 06/06/20 21:00 06/12/20 23:59 06/09/20 08:57 Midodrine (Pro-Amatine) 2.5 mg THREE TIMES A DAY ORAL 06/06/20 18:00 09/04/20 10:59 06/07/20 17:43 Pravastatin Sodium (Pravachol) 20 mg BEDTIME GT 06/06/20 21:00 07/02/20 20:59 06/08/20 20:24 Sennosides (Senokot) 8.6 mg DAILY GT 06/07/20 09:00 07/02/20 08:59 06/09/20 08:42 Allergies: Coded Allergies: No Known Allergies (Unverified , 08/27/19) ROS Limited/Unobtainable: Yes Subjective 79 YO M admitted with hyperglycemia and hypernatremia. Now UTI. Cover for Int Med-Dr Rome Objective Last Vital Signs Date Time Temp Pulse Resp B/P (MAP) Pulse Ox O2 Delivery O2 Flow Rate FiO2 06/09/20 17:54 93 155/91 (112) 06/09/20 16:00 97.9 20 99 06/09/20 09:00 Room Air 06/01/20 22:30 3.0 Laboratory Tests Test 06/08/20 20:18 06/09/20 01:03 06/09/20 04:25 06/09/20 06:25 POC Whole Blood Glucose Pending Pending Pending White Blood Count 6.8 K/UL (4.8-10.8) Red Blood Count 3.63 M/UL (4.70-6.10) L Hemoglobin 11.1 G/DL (14.2-18.0) L Hematocrit 35.8 % (42.0-52.0) L Mean Corpuscular Volume 99 FL (80-99) Mean Corpuscular Hemoglobin 30.6 PG (27.0-31.0) Mean Corpuscular Hemoglobin Concent 31.0 G/DL (32.0-36.0) L Red Cell Distribution Width 14.4 % (11.6-14.8) Platelet Count 634 K/UL (150-450) H Mean Platelet Volume 7.7 FL (6.5-10.1) Neutrophils (%) (Auto) 57.0 % (45.0-75.0) Lymphocytes (%) (Auto) 28.1 % (20.0-45.0) Monocytes (%) (Auto) 10.8 % (1.0-10.0) H Eosinophils (%) (Auto) 1.5 % (0.0-3.0) Basophils (%) (Auto) 2.6 % (0.0-2.0) H Sodium Level 156 MMOL/L (136-145) H Potassium Level 5.0 MMOL/L (3.5-5.1) Chloride Level 117 MMOL/L (98-107) H Carbon Dioxide Level 33 MMOL/L (21-32) H Anion Gap 6 mmol/L (5-15) Blood Urea Nitrogen 26 mg/dL (7-18) H Creatinine 1.0 MG/DL (0.55-1.30) Estimat Glomerular Filtration Rate > 60 mL/min (>60) Glucose Level 210 MG/DL (74-106) H Calcium Level 10.1 MG/DL (8.5-10.1) Phosphorus Level 1.8 MG/DL (2.5-4.9) L Magnesium Level 2.4 MG/DL (1.8-2.4) Total Bilirubin 0.3 MG/DL (0.2-1.0) Aspartate Amino Transf (AST/SGOT) 45 U/L (15-37) H Alanine Aminotransferase (ALT/SGPT) 28 U/L (12-78) Alkaline Phosphatase 225 U/L (46-116) H Total Protein 8.9 G/DL (6.4-8.2) H Albumin 2.4 G/DL (3.4-5.0) L Globulin 6.5 g/dL Albumin/Globulin Ratio 0.4 (1.0-2.7) L Test 06/09/20 08:44 POC Whole Blood Glucose Pending Intake and Output 06/08/20 06/09/20 19:00 07:00 Intake Total 1675 ml 915 ml Output Total 500 ml Balance 1175 ml 915 ml Free Water 200 ml 200 ml IV Total 755 ml 55 ml Tube Feeding 720 ml 660 ml Output Urine Total 500 ml Objective PHYSICAL EXAMINATION: GENERAL: The patient is a well-developed, well-nourished, thin-appearing, male, in no apparent distress. HEENT: Eyes, pupils equal and responsive to light and accommodation. Extraocular movements are intact. NECK: Supple without lymphadenopathy. CHEST: Lungs are clear to auscultation bilaterally without wheezes or rales. CARDIOVASCULAR: Slightly tachycardic, regular rhythm. S1, S2 are normal without murmurs, rubs, or gallops. ABDOMEN: Soft, nontender, and nondistended. Positive bowel sounds. No evidence of hepatosplenomegaly. Currently, no rebound or guarding noted. EXTREMITIES: Negative for clubbing, cyanosis, or edema. RECTAL: Not performed. GENITAL: Not performed. NEUROLOGIC: Cranial nerves II through XII are grossly intact without focal deficits. Assessment/Plan Assessment/Plan ASSESSMENT: This is a 79-year-old male with: 1. Hyperglycemia. 2. Hypernatremia. 3. Urinary tract infection=MDR proteus. 4. Diabetes type 2. 5. Hypertension. 6. Hypercholesterolemia. 7. Dysphagia. 8. Parkinson disease. 9. Ulcerative proctitis. 10. Protein-calorie malnutrition. 11. History of sacral decubitus ulcer stage IV. 12. Benign prostatic hypertrophy. 13. Gastroesophageal reflux disease. 14. Metabolic encephalopathy. 15. History of left hip fracture. TREATMENT: 1. Hyperglycemia/diabetes. The patient has been placed on a protocol using NovoLog sliding scale. The patient's blood sugars have been running in 300s. Hyperglycemia may be secondary to urinary tract infection. 2. Urinary tract infection. Urine culture =MDR proteus. ABX= meropenem. results.ID=Dr Oliva 3. Hypertension. Continue amlodipine as above. 4. Hypercholesterolemia. Continue atorvastatin as above. 5. Dysphagia. The patient is status post PEG placement. 6. Parkinson disease. Continue amantadine as above. 7. Ulcerative proctitis. 8. Protein-calorie malnutrition. 9. Sacral decubitus ulcer stage IV. 10. Benign prostatic hypertrophy. Continue tamsulosin as above. 11. Gastroesophageal reflux disease. 12. Metabolic encephalopathy. 13. History of left hip fracture. Tello Cobb MD Jun 09, 2020 18:53
--- NOTE | 2020-06-09 19:11 | NUR ---
NURSE HAND-OFF:Shea TURNER Important Events on Shift Patient Status: [] Diet: [G-tube Glucerna 1.5 at 60 cc/hr] Pending Orders: [] Pending Results/Labs:[]Potassium today 5.0 Pending MD notification:[]DR Nelson aware Latest Vital Signs: Temperature 97.9 , Pulse 93 , B/P 155 /91 , Respiratory Rate 20 , O2 SAT 99 , Room Air, O2 Flow Rate 3.0 . Vital Sign Comment: [] Latest Lane Fall Score: 70 Fall Risk: High Risk Safety Measures: Call light Within Reach, Bed Alarm Zone 1, Side Rails Side Rails x3, Bed position Low and Locked. Fall Precautions: y Yellow Socks y Yellow Gown y Door Sign y Patient Fall Education Report given to [].
--- NOTE | 2020-06-09 19:26 | NUR ---
NURSE NOTES: Patient asleep in bed. Easily woke up on his name. No complaints at this time. No SOB noted. Call light in reach. Safety measures rendered. Will continue plan of care.
[2020-06-10] VITALS: BP 127/77
[2020-06-10] MEDS: NovoLOG Insulin Flexpen SUBQ SCH ×6 (00:02→21:12)
[2020-06-10 04:00] VITALS: BP 111/79
[2020-06-10 07:25] LABS: HEMATOCRIT 35.3 % (42.0-52.0); HEMOGLOBIN 11.1 G/DL (14.2-18.0); LYMPHOCYTES % (AUTO) 35.7 % (20.0-45.0); MEAN CORPUSCULAR VOLUME 98 FL (80-99); MONOCYTES % (AUTO) 6.4 % (1.0-10.0); NEUTROPHILS % (AUTO) 55.9 % (45.0-75.0); PLATELET COUNT 626 K/UL (150-450); RED BLOOD COUNT 3.58 M/UL (4.70-6.10); RED CELL DISTRIBUTION WIDTH 14.4 % (11.6-14.8)
--- NOTE | 2020-06-10 07:32 | NUR ---
NURSE HAND-OFF: Important Events on Shift:Patient had BM and was cleaned, IV insertion Patient Status: Stable Diet: Glucerna 1.5 @60ml/hr Pending Orders: CBC, BMP Pending Results/Labs: Pending MD notification: Latest Vital Signs: Temperature 98.2 , Pulse 81 , B/P 91 /54 , Respiratory Rate 18 , O2 SAT 96 , Room Air, O2 Flow Rate . Vital Sign Comment: Latest Lane Fall Score: 50 Fall Risk: High Risk Safety Measures: Call light Within Reach, Bed Alarm Zone 1, Side Rails Side Rails x3, Bed position Low and Locked. Fall Precautions: Yellow Socks Yellow Gown Door Sign Patient Fall Education Report given to JOHNNY Dunn.
[2020-06-10 07:38] LABS: ANION GAP 7 mmol/L (5-15); BLOOD UREA NITROGEN 30 mg/dL (7-18); CALCIUM 9.7 MG/DL (8.5-10.1); CARBON DIOXIDE 33 MMOL/L (21-32); CHLORIDE 114 MMOL/L (98-107); POTASSIUM 4.6 MMOL/L (3.5-5.1); SODIUM 154 MMOL/L (136-145)
--- NOTE | 2020-06-10 07:49 | NUR ---
NURSE NOTES: Report received from JOHNNY Garg. Patient seen in bed AAOx2, not in distress, on room air. IV patent and intact. Gtube patent and infusing Glucerna1.5 currently at 60ml/hr no residuals so far. Adams cath secured and draining yellowish output. Full body check done, noted healed pressure injury on the sacral area. Optifoam placed on sacrum and bilateral heels for prophylaxis. Pt is on a low air loss mattress. Pt is incontinent and bedbound. Bed low and locked, siderails x2, call light placed within reach and instructed to call nurse for assistance. Will continue to monitor.
[2020-06-10 08:00] VITALS: BP 114/71
[2020-06-10] MEDS: Amantadine 100mg cap GT SCH ×2 (09:04→17:36)
[2020-06-10] MEDS: Meropenem 1 GM in NS 55 ML IVPB SCH (09:04)
[2020-06-10] MEDS: Sennosides 8.6mg tab GT SCH (09:04)
[2020-06-10] MEDS: Aspirin Baby 81mg GT SCH (09:07)
[2020-06-10] MEDS: Heparin 5000 units/ml inj SUBQ SCH ×2 (09:10→20:49)
[2020-06-10] MEDS: Levemir Flexpen SUBQ SCH (09:12)
--- NOTE | 2020-06-10 10:45 | Nephrology Progress Note ---
Assessment/Plan Problem List: (1) Hypernatremia (2) Sepsis (3) History of CVA (cerebrovascular accident) (4) Parkinson disease (5) Feeding by G-tube (6) Dehydration Assessment KELLY, resolving, serum creatinine of 1.9 now down to 1.2 Hypernatremia, dehydration, free water deficit Sepsis Diabetes mellitus [id number] GT feeding Severe protein calorie malnutrition History of CVA History of hypertension Parkinson's disease Plan June 10: Lab reviewed. Serum potassium normalized. Will give 1 L of D5W for high serum sodium. Continue per consultants. June 09: Labs reviewed. Discussed with RN. Serum potassium elevated. Suspect hemolysis. Will repeat serum potassium. DC all potassium supplements. June 08: Serum sodium higher. Will give 1 L of D5W. Renal parameters stable. Continue to monitor electrolytes. Continue per consultants. June 07: 1 bolus of D5W. Renal parameters stable. Serum sodium slightly high. Stable from renal standpoint of view. June 06: We will again discontinue the IV ordered. Stable from renal standpoint of view. Will start midodrine for low blood pressure. June 05: DC IV fluid. Potassium supplement given. Stable from renal standpoint to view. June 04: Potassium and magnesium supplement IV given, stable from renal standpoint of view. IV fluid D5W Monitor electrolytes Monitor renal parameters Hold blood pressure medication since blood pressure low Per orders, per consultants Subjective ROS Limited/Unobtainable: No Constitutional: Reports: malaise Objective Objective Last 24 Hour Vital Signs Date Time Temp Pulse Resp B/P (MAP) Pulse Ox O2 Delivery O2 Flow Rate FiO2 06/10/20 09:00 Room Air 06/10/20 08:00 97.4 95 18 114/71 (85) 100 06/10/20 04:00 96.4 98 21 111/79 (90) 94 06/10/20 00:00 98.0 90 127/77 (94) 06/09/20 21:00 Room Air 06/09/20 20:00 97.0 94 121/68 (85) 06/09/20 17:54 93 155/91 (112) 06/09/20 16:00 97.9 96 20 128/75 (92) 99 06/09/20 12:00 96.3 91 18 122/73 (89) 97 Intake and Output 06/09/20 06/10/20 19:00 07:00 Intake Total 1670 ml 395 ml Output Total 900 ml 550 ml Balance 770 ml -155 ml Free Water 200 ml 100 ml IV Total 750 ml 55 ml Tube Feeding 720 ml 240 ml Output Urine Total 900 ml 550 ml # Voids 1 # Bowel Movements 2 1 Laboratory Tests 06/10/20 06:30: White Blood Count 8.0, Red Blood Count 3.58L, Hemoglobin 11.1L, Hematocrit 35.3L , Mean Corpuscular Volume 98, Mean Corpuscular Hemoglobin 31.0, Mean Corpuscular Hemoglobin Concent 31.5L, Red Cell Distribution Width 14.4, Platelet Count 626H, Mean Platelet Volume 8.5, Neutrophils (%) (Auto) 55.9, Lymphocytes (%) (Auto) 35.7, Monocytes (%) (Auto) 6.4, Eosinophils (%) (Auto) 1.0, Basophils (%) (Auto) 1.0, Sodium Level 154H, Potassium Level 4.6, Chloride Level 114H, Carbon Dioxide Level 33H, Anion Gap 7, Blood Urea Nitrogen 30H, Creatinine 1.0, Estimat Glomerular Filtration Rate > 60, Glucose Level 190H, Calcium Level 9.7 Height (Feet): 5 Height (Inches): 5.00 Weight (Pounds): 123 General Appearance: no apparent distress Cardiovascular: tachycardia Respiratory/Chest: decreased breath sounds Abdomen: soft Objective No change Eddie Nelson MD Jun 10, 2020 10:45
[2020-06-10 12:00] VITALS: BP 116/68
--- NOTE | 2020-06-10 12:46 | Internal Med Progress Note ---
Subjective Date of Service: Jun 10, 2020 Physician Name Tello Cobb Attending Physician Cirilo Rome MD Current Medications Medications (Trade) Dose Ordered Sig/Debi Route PRN Reason Start Time Stop Time Status Last Admin Dose Admin Acetaminophen (Tylenol) 650 mg Q6H PRN GT Mild Pain (Pain Scale 1-3) 06/06/20 16:15 07/02/20 16:14 Amantadine HCl (Symmetrel) 100 mg TWICE A DAY GT 06/06/20 18:00 07/02/20 08:59 06/10/20 09:04 Aspirin (ASA) 81 mg DAILY GT 06/07/20 09:00 07/17/20 08:59 06/10/20 09:07 Dextrose 1,000 ml @ 100 mls/hr Q10H IV 06/10/20 09:45 06/10/20 19:44 06/10/20 09:52 Dextrose (Dextrose 50%) 25 ml Q30M PRN IV Hypoglycemia 06/06/20 16:15 09/02/20 09:44 Dextrose (Dextrose 50%) 50 ml Q30M PRN IV Hypoglycemia 06/06/20 16:15 09/02/20 09:44 Famotidine (Pepcid) 20 mg BID GT 06/06/20 18:00 09/01/20 17:59 06/10/20 09:04 Heparin Sodium (Porcine) (Heparin 5000 units/ml) 5,000 units EVERY 12 HOURS SUBQ 06/06/20 21:00 07/17/20 08:59 06/10/20 09:10 Insulin Aspart (NovoLOG) EVERY 4 HOURS SUBQ 06/06/20 17:00 09/02/20 12:59 06/10/20 12:28 Insulin Detemir (Levemir) 8 units DAILY SUBQ 06/09/20 09:00 09/07/20 08:59 06/10/20 09:12 Meropenem 1 gm/ Sodium Chloride 55 ml @ 110 mls/hr Q12HR IVPB 06/06/20 21:00 06/12/20 23:59 06/10/20 09:04 Midodrine (Pro-Amatine) 2.5 mg THREE TIMES A DAY ORAL 06/06/20 18:00 09/04/20 10:59 06/10/20 12:27 Pravastatin Sodium (Pravachol) 20 mg BEDTIME GT 06/06/20 21:00 07/02/20 20:59 06/09/20 20:28 Sennosides (Senokot) 8.6 mg DAILY GT 06/07/20 09:00 07/02/20 08:59 06/10/20 09:04 Allergies: Coded Allergies: No Known Allergies (Unverified , 08/27/19) ROS Limited/Unobtainable: Yes Subjective 79 YO M admitted with hyperglycemia and hypernatremia. Now UTI. Cover for Int Med-Dr Rome Objective Last Vital Signs Date Time Temp Pulse Resp B/P (MAP) Pulse Ox O2 Delivery O2 Flow Rate FiO2 06/10/20 12:00 98.0 92 18 116/68 (84) 100 06/10/20 09:00 Room Air 06/01/20 22:30 3.0 Laboratory Tests Test 06/10/20 06:30 White Blood Count 8.0 K/UL (4.8-10.8) Red Blood Count 3.58 M/UL (4.70-6.10) L Hemoglobin 11.1 G/DL (14.2-18.0) L Hematocrit 35.3 % (42.0-52.0) L Mean Corpuscular Volume 98 FL (80-99) Mean Corpuscular Hemoglobin 31.0 PG (27.0-31.0) Mean Corpuscular Hemoglobin Concent 31.5 G/DL (32.0-36.0) L Red Cell Distribution Width 14.4 % (11.6-14.8) Platelet Count 626 K/UL (150-450) H Mean Platelet Volume 8.5 FL (6.5-10.1) Neutrophils (%) (Auto) 55.9 % (45.0-75.0) Lymphocytes (%) (Auto) 35.7 % (20.0-45.0) Monocytes (%) (Auto) 6.4 % (1.0-10.0) Eosinophils (%) (Auto) 1.0 % (0.0-3.0) Basophils (%) (Auto) 1.0 % (0.0-2.0) Sodium Level 154 MMOL/L (136-145) H Potassium Level 4.6 MMOL/L (3.5-5.1) Chloride Level 114 MMOL/L (98-107) H Carbon Dioxide Level 33 MMOL/L (21-32) H Anion Gap 7 mmol/L (5-15) Blood Urea Nitrogen 30 mg/dL (7-18) H Creatinine 1.0 MG/DL (0.55-1.30) Estimat Glomerular Filtration Rate > 60 mL/min (>60) Glucose Level 190 MG/DL (74-106) H Calcium Level 9.7 MG/DL (8.5-10.1) Intake and Output 06/09/20 06/10/20 19:00 07:00 Intake Total 1670 ml 395 ml Output Total 900 ml 550 ml Balance 770 ml -155 ml Free Water 200 ml 100 ml IV Total 750 ml 55 ml Tube Feeding 720 ml 240 ml Output Urine Total 900 ml 550 ml # Voids 1 # Bowel Movements 2 1 Objective PHYSICAL EXAMINATION: GENERAL: The patient is a well-developed, well-nourished, thin-appearing, male, in no apparent distress. HEENT: Eyes, pupils equal and responsive to light and accommodation. Extraocular movements are intact. NECK: Supple without lymphadenopathy. CHEST: Lungs are clear to auscultation bilaterally without wheezes or rales. CARDIOVASCULAR: Slightly tachycardic, regular rhythm. S1, S2 are normal without murmurs, rubs, or gallops. ABDOMEN: Soft, nontender, and nondistended. Positive bowel sounds. No evidence of hepatosplenomegaly. Currently, no rebound or guarding noted. EXTREMITIES: Negative for clubbing, cyanosis, or edema. RECTAL: Not performed. GENITAL: Not performed. NEUROLOGIC: Cranial nerves II through XII are grossly intact without focal deficits. Assessment/Plan Assessment/Plan ASSESSMENT: This is a 79-year-old male with: 1. Hyperglycemia. 2. Hypernatremia. 3. Urinary tract infection=MDR proteus. 4. Diabetes type 2. 5. Hypertension. 6. Hypercholesterolemia. 7. Dysphagia. 8. Parkinson disease. 9. Ulcerative proctitis. 10. Protein-calorie malnutrition. 11. History of sacral decubitus ulcer stage IV. 12. Benign prostatic hypertrophy. 13. Gastroesophageal reflux disease. 14. Metabolic encephalopathy. 15. History of left hip fracture. TREATMENT: 1. Hyperglycemia/diabetes. The patient has been placed on a protocol using NovoLog sliding scale. The patient's blood sugars have been running in 300s. Hyperglycemia may be secondary to urinary tract infection. 2. Urinary tract infection. Urine culture =MDR proteus. ABX= meropenem. results.ID=Dr Oliva 3. Hypertension. Continue amlodipine as above. 4. Hypercholesterolemia. Continue atorvastatin as above. 5. Dysphagia. The patient is status post PEG placement. 6. Parkinson disease. Continue amantadine as above. 7. Ulcerative proctitis. 8. Protein-calorie malnutrition. 9. Sacral decubitus ulcer stage IV. 10. Benign prostatic hypertrophy. Continue tamsulosin as above. 11. Gastroesophageal reflux disease. 12. Metabolic encephalopathy. 13. History of left hip fracture. Tello Cobb MD Jun 10, 2020 12:46
--- NOTE | 2020-06-10 12:46 | Pulmonology Progress Note ---
Subjective ROS Limited/Unobtainable: No Constitutional: Denies: no symptoms, fever, chills, fatigue, anorexia, drenching sweats, other HEENT: Repors: no symptoms Respiratory: Reports: no symptoms Allergies: Coded Allergies: No Known Allergies (Unverified , 08/27/19) All Systems: reviewed and negative except above Objective Last 24 Hour Vital Signs Date Time Temp Pulse Resp B/P (MAP) Pulse Ox O2 Delivery O2 Flow Rate FiO2 06/10/20 12:00 98.0 92 18 116/68 (84) 100 06/10/20 09:00 Room Air 06/10/20 08:00 97.4 95 18 114/71 (85) 100 06/10/20 04:00 96.4 98 21 111/79 (90) 94 06/10/20 00:00 98.0 90 127/77 (94) 06/09/20 21:00 Room Air 06/09/20 20:00 97.0 94 121/68 (85) 06/09/20 17:54 93 155/91 (112) 06/09/20 16:00 97.9 96 20 128/75 (92) 99 Intake and Output 06/09/20 06/10/20 19:00 07:00 Intake Total 1670 ml 395 ml Output Total 900 ml 550 ml Balance 770 ml -155 ml Free Water 200 ml 100 ml IV Total 750 ml 55 ml Tube Feeding 720 ml 240 ml Output Urine Total 900 ml 550 ml # Voids 1 # Bowel Movements 2 1 General Appearance: cachetic HEENT: normocephalic, atraumatic Respiratory: chest wall non-tender, normal breath sounds Cardiovascular: normal peripheral pulses, normal rate Abdomen: soft, non tender, no organomegaly, no scars Skin: no rash Neurologic: oriented x 3 Lymphatic: no neck adenopathy Laboratory Tests 06/10/20 06:30: White Blood Count 8.0, Red Blood Count 3.58L, Hemoglobin 11.1L, Hematocrit 35.3L , Mean Corpuscular Volume 98, Mean Corpuscular Hemoglobin 31.0, Mean Corpuscular Hemoglobin Concent 31.5L, Red Cell Distribution Width 14.4, Platelet Count 626H, Mean Platelet Volume 8.5, Neutrophils (%) (Auto) 55.9, Lymphocytes (%) (Auto) 35.7, Monocytes (%) (Auto) 6.4, Eosinophils (%) (Auto) 1.0, Basophils (%) (Auto) 1.0, Sodium Level 154H, Potassium Level 4.6, Chloride Level 114H, Carbon Dioxide Level 33H, Anion Gap 7, Blood Urea Nitrogen 30H, Creatinine 1.0, Estimat Glomerular Filtration Rate > 60, Glucose Level 190H, Calcium Level 9.7 Current Medications Medications (Trade) Dose Ordered Sig/Debi Route PRN Reason Start Time Stop Time Status Last Admin Dose Admin Acetaminophen (Tylenol) 650 mg Q6H PRN GT Mild Pain (Pain Scale 1-3) 06/06/20 16:15 07/02/20 16:14 Amantadine HCl (Symmetrel) 100 mg TWICE A DAY GT 06/06/20 18:00 07/02/20 08:59 06/10/20 09:04 Aspirin (ASA) 81 mg DAILY GT 06/07/20 09:00 07/17/20 08:59 06/10/20 09:07 Dextrose 1,000 ml @ 100 mls/hr Q10H IV 06/10/20 09:45 06/10/20 19:44 06/10/20 09:52 Dextrose (Dextrose 50%) 25 ml Q30M PRN IV Hypoglycemia 06/06/20 16:15 09/02/20 09:44 Dextrose (Dextrose 50%) 50 ml Q30M PRN IV Hypoglycemia 06/06/20 16:15 09/02/20 09:44 Famotidine (Pepcid) 20 mg BID GT 06/06/20 18:00 09/01/20 17:59 06/10/20 09:04 Heparin Sodium (Porcine) (Heparin 5000 units/ml) 5,000 units EVERY 12 HOURS SUBQ 06/06/20 21:00 07/17/20 08:59 06/10/20 09:10 Insulin Aspart (NovoLOG) EVERY 4 HOURS SUBQ 06/06/20 17:00 09/02/20 12:59 06/10/20 12:28 Insulin Detemir (Levemir) 8 units DAILY SUBQ 06/09/20 09:00 09/07/20 08:59 06/10/20 09:12 Meropenem 1 gm/ Sodium Chloride 55 ml @ 110 mls/hr Q12HR IVPB 06/06/20 21:00 06/12/20 23:59 06/10/20 09:04 Midodrine (Pro-Amatine) 2.5 mg THREE TIMES A DAY ORAL 06/06/20 18:00 09/04/20 10:59 06/10/20 12:27 Pravastatin Sodium (Pravachol) 20 mg BEDTIME GT 06/06/20 21:00 07/02/20 20:59 06/09/20 20:28 Sennosides (Senokot) 8.6 mg DAILY GT 06/07/20 09:00 07/02/20 08:59 06/10/20 09:04 Assessment/Plan Problems: (1) Sepsis (2) Multiple drug resistant organism (MDRO) culture positive (3) Diabetes mellitus (4) Feeding by G-tube (5) Severe protein-calorie malnutrition (6) Parkinson disease (7) History of hypertension (8) History of CVA (cerebrovascular accident) Assessment/Plan electrolytes fluctuating Improving ronquillo culture, Urine has proteus,,MDR COVID Negative iv abx iv fluids renal studies renal function improving urine electrolytes. sliding scale Latanya Mckeon MD Jun 10, 2020 12:46
--- NOTE | 2020-06-10 13:07 | NUR ---
RD ASSESSMENT & RECOMMENDATIONS SEE CARE ACTIVITY FOR COMPLETE ASSESSMENT DAILY ESTIMATED NEEDS: Needs based on Sepsis, DM/ 54kg 30-40 kcals/kg 4618-0636 total kcals 1.25-2 g protein/kg 68-108 g total protein 25-35ml/kcal mL/kg 4661-5511 total fluid mLs NUTRITION DIAGNOSIS: * Swallowing difficulty R/T dysphagia, as evidenced by Pt is GT dep. CURRENT TF:Glucerna 1.5 @60ml/hr x20 hrs ENTERAL NUTRITION RECOMMENDATIONS: Glucerna 1.5 @ 60ml/hr x 20 hrs to provide 1200ml, 1800kcal, 99g prot, 911ml free water, 160g carbs * Maintain at current rate-> HOLD FOR 4 HRS / DAY. * HOB over 30 degrees, increased water flushes * TF at goal meets 100% est needs. ADDITIONAL RECOMMENDATIONS: * Calibrated bedscale wt for accurate CBW * Monitor lytes daily w/ TF, replete as needed * Pt may require increase in insulin regimen for improved BG W/ continuous TF infusion * Wound healing: DOMENICA BID. * Water flushes w/ TF-> rec 150ml q4 hrs w/out IVF * Watch K w/ change of TF -> now wnl
--- NOTE | 2020-06-10 13:34 | Surgery Progress Note ---
Surgery Progress Note Subjective Symptoms: improved, tolerating diet, passing flatus, pain decreased Objective Last 24 Hour Vital Signs Date Time Temp Pulse Resp B/P (MAP) Pulse Ox O2 Delivery O2 Flow Rate FiO2 06/10/20 12:00 98.0 92 18 116/68 (84) 100 06/10/20 09:00 Room Air 06/10/20 08:00 97.4 95 18 114/71 (85) 100 06/10/20 04:00 96.4 98 21 111/79 (90) 94 06/10/20 00:00 98.0 90 127/77 (94) 06/09/20 21:00 Room Air 06/09/20 20:00 97.0 94 121/68 (85) 06/09/20 17:54 93 155/91 (112) 06/09/20 16:00 97.9 96 20 128/75 (92) 99 I&O Intake and Output 06/09/20 06/10/20 19:00 07:00 Intake Total 1670 ml 395 ml Output Total 900 ml 550 ml Balance 770 ml -155 ml Free Water 200 ml 100 ml IV Total 750 ml 55 ml Tube Feeding 720 ml 240 ml Output Urine Total 900 ml 550 ml # Voids 1 # Bowel Movements 2 1 Dressing: saturated Cardiovascular: RSR Respiratory: decreased breath sounds Abdomen: soft, non-tender, present bowel sounds Extremities: no tenderness, no cyanosis Laboratory Tests Test 06/10/20 06:30 White Blood Count 8.0 K/UL (4.8-10.8) Red Blood Count 3.58 M/UL (4.70-6.10) L Hemoglobin 11.1 G/DL (14.2-18.0) L Hematocrit 35.3 % (42.0-52.0) L Mean Corpuscular Volume 98 FL (80-99) Mean Corpuscular Hemoglobin 31.0 PG (27.0-31.0) Mean Corpuscular Hemoglobin Concent 31.5 G/DL (32.0-36.0) L Red Cell Distribution Width 14.4 % (11.6-14.8) Platelet Count 626 K/UL (150-450) H Mean Platelet Volume 8.5 FL (6.5-10.1) Neutrophils (%) (Auto) 55.9 % (45.0-75.0) Lymphocytes (%) (Auto) 35.7 % (20.0-45.0) Monocytes (%) (Auto) 6.4 % (1.0-10.0) Eosinophils (%) (Auto) 1.0 % (0.0-3.0) Basophils (%) (Auto) 1.0 % (0.0-2.0) Sodium Level 154 MMOL/L (136-145) H Potassium Level 4.6 MMOL/L (3.5-5.1) Chloride Level 114 MMOL/L (98-107) H Carbon Dioxide Level 33 MMOL/L (21-32) H Anion Gap 7 mmol/L (5-15) Blood Urea Nitrogen 30 mg/dL (7-18) H Creatinine 1.0 MG/DL (0.55-1.30) Estimat Glomerular Filtration Rate > 60 mL/min (>60) Glucose Level 190 MG/DL (74-106) H Calcium Level 9.7 MG/DL (8.5-10.1) Plan Problems: (1) Hypernatremia (2) Dehydration (3) Hip fracture, left (4) Diabetes mellitus (5) History of hypertension (6) Severe protein-calorie malnutrition Assessment & Plan: DAILY ESTIMATED NEEDS: Needs based on Sepsis, DM/ 54kg 30-40 kcals/kg 6638-9385 total kcals 1.25-2 g protein/kg 68-108 g total protein 25-35ml/kcal mL/kg 2328-8597 total fluid mLs NUTRITION DIAGNOSIS: * Swallowing difficulty R/T dysphagia, as evidenced by Pt is GT dep. (CURRENT TF: Glucerna 1.5 @ 30ml/hr x 24 hrs) ENTERAL NUTRITION RECOMMENDATIONS: Glucerna 1.5 @ 60ml/hr x 20 hrs to provide 1200ml, 1800kcal, 99g prot, 911ml free water, 160g carbs * Rec to INCREASE TF GOAL to 60ml/hr for 20 hrs * HOB over 30 degrees, increased water flushes * TF at goal meets 100% est needs. -------- ADDITIONAL RECOMMENDATIONS: * Calibrated bedscale wt for accurate CBW * Monitor lytes daily w/ TF, replete as needed * Pt may require increase in insulin regimen for improved BG W/ continuous TF infusion * Wound healing: DOMENICA BID, F/up w/ WC eval . (7) Acute encephalopathy (8) Pressure Ulcer Of Sacral Region, Unstageable Assessment & Plan: Pt presented on admission with purple and indurated area at Sacrococcygeal at previously compromised site(L)7cm x (W)3cm.Surrounding Hyperpigmentation at Sacrum. Non-Blanching erythema without fluctuance R heel. Non-Blanching erythema with delineated margins L heel (L)4.5cm x (W)5.5cm. L Heel is boggy . Tx.Plan: Apply Moisture Barrier Paste to Sacrum. Cover with Optifoam drsgs. Change every 3 days and prn. Apply Cavilon Skin Barrier to R and L trochanter. Cover each site with Optifoam drsgs. Change every 7 days and prn. Apply Cavilon Skin Barrier to each heel and malleoli. Cover each site with Optifoam drsgs. Change every 7 days and prn. Reposition at least every 2hours or as tolerated. Off-load heels with pillow. improving cont current care tube site okay (9) Feeding by G-tube (10) Abdominal distention (11) Multiple drug resistant organism (MDRO) culture positive (12) Sepsis (13) History of CVA (cerebrovascular accident) (14) Parkinson disease James Breen Jun 10, 2020 13:34
--- NOTE | 2020-06-10 13:49 | Infectious Diseases Prog Note ---
Assessment/Plan 79yo M with: Fever, SP Leukocytosis, SP KELLY, improving UTI 06/01 UA w/ pyuria, UCx + P Mirabilis ESBL 06/01 BCx Neg 06/01 CXR: No acute process COVID rapid test neg H/o ESBL Proteus in UCx in Oct 2019 Renal US w/ BL cysts PMH: DM2 Parkinson's dementia Bedridden G-tube Plan: Dc meropenem #/ and monitor off abx 06/02 SP erta #1 06/01 SP cefepime, vanco, flagyl x1 in ED Monitor CBC/BMP Trend leukocytosis, KELLY Trend hemodynamics, temp curve D/w RN Thank you for this consult. [facility] will continue to follow. Subjective Allergies: Coded Allergies: No Known Allergies (Unverified , 08/27/19) afebrile no leuckocytosis Objective Last 24 Hour Vital Signs Date Time Temp Pulse Resp B/P (MAP) Pulse Ox O2 Delivery O2 Flow Rate FiO2 06/10/20 12:00 98.0 92 18 116/68 (84) 100 06/10/20 09:00 Room Air 06/10/20 08:00 97.4 95 18 114/71 (85) 100 06/10/20 04:00 96.4 98 21 111/79 (90) 94 06/10/20 00:00 98.0 90 127/77 (94) 06/09/20 21:00 Room Air 06/09/20 20:00 97.0 94 121/68 (85) 06/09/20 17:54 93 155/91 (112) 06/09/20 16:00 97.9 96 20 128/75 (92) 99 Height (Feet): 5 Height (Inches): 5.00 Weight (Pounds): 123 GENERAL: thin-appearing, male, in no apparent distress. CHEST: Lungs are clear to auscultation bilaterally without wheezes or rales. CARDIOVASCULAR: Slightly tachycardic, regular rhythm. S1, S2 are normal without murmurs, rubs, or gallops. ABDOMEN: Soft, nontender, and nondistended. Positive bowel sounds. No evidence of hepatosplenomegaly. EXTREMITIES: Negative for clubbing, cyanosis, or edema. Laboratory Tests Test 06/10/20 06:30 White Blood Count 8.0 K/UL (4.8-10.8) Red Blood Count 3.58 M/UL (4.70-6.10) L Hemoglobin 11.1 G/DL (14.2-18.0) L Hematocrit 35.3 % (42.0-52.0) L Mean Corpuscular Volume 98 FL (80-99) Mean Corpuscular Hemoglobin 31.0 PG (27.0-31.0) Mean Corpuscular Hemoglobin Concent 31.5 G/DL (32.0-36.0) L Red Cell Distribution Width 14.4 % (11.6-14.8) Platelet Count 626 K/UL (150-450) H Mean Platelet Volume 8.5 FL (6.5-10.1) Neutrophils (%) (Auto) 55.9 % (45.0-75.0) Lymphocytes (%) (Auto) 35.7 % (20.0-45.0) Monocytes (%) (Auto) 6.4 % (1.0-10.0) Eosinophils (%) (Auto) 1.0 % (0.0-3.0) Basophils (%) (Auto) 1.0 % (0.0-2.0) Sodium Level 154 MMOL/L (136-145) H Potassium Level 4.6 MMOL/L (3.5-5.1) Chloride Level 114 MMOL/L (98-107) H Carbon Dioxide Level 33 MMOL/L (21-32) H Anion Gap 7 mmol/L (5-15) Blood Urea Nitrogen 30 mg/dL (7-18) H Creatinine 1.0 MG/DL (0.55-1.30) Estimat Glomerular Filtration Rate > 60 mL/min (>60) Glucose Level 190 MG/DL (74-106) H Calcium Level 9.7 MG/DL (8.5-10.1) Current Medications Medications (Trade) Dose Ordered Sig/Debi Route PRN Reason Start Time Stop Time Status Last Admin Dose Admin Acetaminophen (Tylenol) 650 mg Q6H PRN GT Mild Pain (Pain Scale 1-3) 06/06/20 16:15 07/02/20 16:14 Amantadine HCl (Symmetrel) 100 mg TWICE A DAY GT 06/06/20 18:00 07/02/20 08:59 06/10/20 09:04 Aspirin (ASA) 81 mg DAILY GT 06/07/20 09:00 07/17/20 08:59 06/10/20 09:07 Dextrose 1,000 ml @ 100 mls/hr Q10H IV 06/10/20 09:45 06/10/20 19:44 06/10/20 09:52 Dextrose (Dextrose 50%) 25 ml Q30M PRN IV Hypoglycemia 06/06/20 16:15 09/02/20 09:44 Dextrose (Dextrose 50%) 50 ml Q30M PRN IV Hypoglycemia 06/06/20 16:15 09/02/20 09:44 Famotidine (Pepcid) 20 mg BID GT 06/06/20 18:00 09/01/20 17:59 06/10/20 09:04 Heparin Sodium (Porcine) (Heparin 5000 units/ml) 5,000 units EVERY 12 HOURS SUBQ 06/06/20 21:00 07/17/20 08:59 06/10/20 09:10 Insulin Aspart (NovoLOG) EVERY 4 HOURS SUBQ 06/06/20 17:00 09/02/20 12:59 06/10/20 12:28 Insulin Detemir (Levemir) 8 units DAILY SUBQ 06/09/20 09:00 09/07/20 08:59 06/10/20 09:12 Meropenem 1 gm/ Sodium Chloride 55 ml @ 110 mls/hr Q12HR IVPB 06/06/20 21:00 06/12/20 23:59 06/10/20 09:04 Midodrine (Pro-Amatine) 2.5 mg THREE TIMES A DAY ORAL 06/06/20 18:00 09/04/20 10:59 06/10/20 12:27 Pravastatin Sodium (Pravachol) 20 mg BEDTIME GT 06/06/20 21:00 07/02/20 20:59 06/09/20 20:28 Sennosides (Senokot) 8.6 mg DAILY GT 06/07/20 09:00 07/02/20 08:59 06/10/20 09:04 Blaire Greenwood M.D. Jun 10, 2020 13:49
--- NOTE | 2020-06-10 14:59 | NUR ---
CASE MANAGEMENT:REVIEW SI;MDR PROTEUS UTI. SEPSIS. 98.0 98 21 127/77 94% ON RA NA 154 CL 114 CL 33 BUN 30 BG 190 IS;D5 IV @ 100 ML/HR INSULIN LEVEMIR QD ASA GT QD MEROPENEM IV Q12 HEPARIN SUBQ Q12 AMANTADINE GT BID MIDODRINE GT TID INSULIN NOVOLOG Q4 MED SURG STATUS DCP;FROM [facility]
[2020-06-10 16:00] VITALS: BP 105/64
--- NOTE | 2020-06-10 19:35 | NUR ---
NURSE NOTES: The patient is alert but was verbally unresponsive .The Resp is even and unlabored and the bilateral lung sounds are all clear on auscultation. Patient is on Continuous Gtube feeding of Glucerna1.5 @ 60ml/hr via enteral pulp with no residuals noted. The placement check was done and it is intact.Adams cath was noted secured under gravity draining pale yellowish urine. The patient was noted with an old scar in the sacral area from an old pressure injury. Optifoam placed on sacrum and bilateral heels for prophylaxis. Bed low and locked, siderails x2, call light placed within reach and instructed to call nurse for assistance. Will continue to monitor.
--- NOTE | 2020-06-10 19:45 | NUR ---
HAND-OFF: Report given to JOHNNY Vail.
[2020-06-10 20:00] VITALS: BP 146/72
[2020-06-10] MEDS: Acetaminophen 650mg/20.3ml GT PRN (20:51)
[2020-06-11] VITALS: BP 141/75
[2020-06-11] MEDS: NovoLOG Insulin Flexpen SUBQ SCH ×6 (01:00→18:00)
[2020-06-11 04:00] VITALS: BP 129/67
--- NOTE | 2020-06-11 07:24 | NUR ---
HAND-OFF: Report given to Wilson RN.
--- NOTE | 2020-06-11 07:55 | NUR ---
NURSE NOTES: Received patient in bed awake. No SOB or acute distress. IV line intact. Gtube intact, feeding ongoing and turned off. FC intact. HOB elevated. Bed locked in low position. Call light within reach. Will continue plan of care.
[2020-06-11 08:00] VITALS: BP 110/68
--- NOTE | 2020-06-11 08:16 | Infectious Diseases Prog Note ---
Assessment/Plan 79yo M with: Fever, SP Leukocytosis, SP KELLY, improving UTI 06/01 UA w/ pyuria, UCx + P Mirabilis ESBL 06/01 BCx Neg 06/01 CXR: No acute process COVID rapid test neg H/o ESBL Proteus in UCx in Oct 2019 Renal US w/ BL cysts PMH: DM2 Parkinson's dementia Bedridden G-tube Plan: Cont to monitor off abx 06/10 SP audra #8/7 06/02 SP erta #1 06/01 SP cefepime, vanco, flagyl x1 in ED Monitor CBC/BMP Trend leukocytosis, KELLY Trend hemodynamics, temp curve D/w RN Thank you for this consult. [facility] will continue to follow. Subjective Allergies: Coded Allergies: No Known Allergies (Unverified , 08/27/19) AF NAD Off abx now WBC 7.9 Objective Last 24 Hour Vital Signs Date Time Temp Pulse Resp B/P (MAP) Pulse Ox O2 Delivery O2 Flow Rate FiO2 06/11/20 08:00 97.8 94 18 110/68 (82) 96 06/11/20 04:00 98.5 95 18 129/67 (87) 95 06/11/20 00:00 98.9 102 18 141/75 (97) 97 06/10/20 21:00 Room Air 06/10/20 20:00 98.5 105 18 146/72 (96) 99 06/10/20 16:00 97.8 101 18 105/64 (78) 99 06/10/20 12:00 98.0 92 18 116/68 (84) 100 06/10/20 09:00 Room Air Height (Feet): 5 Height (Inches): 5.00 Weight (Pounds): 123 Gen: NAD in bed HEENT: OP clear CV: RRR Pulm: CTAB anteriorly Abd: Soft, NTND Neuro: Not interactive Laboratory Tests Test 06/11/20 07:15 White Blood Count Pending Red Blood Count Pending Hemoglobin Pending Hematocrit Pending Mean Corpuscular Volume Pending Mean Corpuscular Hemoglobin Pending Mean Corpuscular Hemoglobin Concent Pending Red Cell Distribution Width Pending Platelet Count Pending Mean Platelet Volume Pending Neutrophils (%) (Auto) Pending Lymphocytes (%) (Auto) Pending Monocytes (%) (Auto) Pending Eosinophils (%) (Auto) Pending Basophils (%) (Auto) Pending Erythrocyte Sedimentation Rate Pending Sodium Level Pending Potassium Level Pending Chloride Level Pending Carbon Dioxide Level Pending Blood Urea Nitrogen Pending Creatinine Pending Estimat Glomerular Filtration Rate Pending Glucose Level Pending Calcium Level Pending Phosphorus Level Pending Magnesium Level Pending Total Bilirubin Pending Aspartate Amino Transf (AST/SGOT) Pending Alanine Aminotransferase (ALT/SGPT) Pending Alkaline Phosphatase Pending C-Reactive Protein, Quantitative Pending Total Protein Pending Albumin Pending Globulin Pending Current Medications Medications (Trade) Dose Ordered Sig/Debi Route PRN Reason Start Time Stop Time Status Last Admin Dose Admin Acetaminophen (Tylenol) 650 mg Q6H PRN GT Mild Pain (Pain Scale 1-3) 06/06/20 16:15 07/02/20 16:14 06/10/20 20:51 Amantadine HCl (Symmetrel) 100 mg TWICE A DAY GT 06/06/20 18:00 07/02/20 08:59 06/10/20 17:36 Aspirin (ASA) 81 mg DAILY GT 06/07/20 09:00 07/17/20 08:59 06/10/20 09:07 Dextrose (Dextrose 50%) 25 ml Q30M PRN IV Hypoglycemia 06/06/20 16:15 09/02/20 09:44 Dextrose (Dextrose 50%) 50 ml Q30M PRN IV Hypoglycemia 06/06/20 16:15 09/02/20 09:44 Famotidine (Pepcid) 20 mg BID GT 06/06/20 18:00 09/01/20 17:59 06/10/20 17:36 Heparin Sodium (Porcine) (Heparin 5000 units/ml) 5,000 units EVERY 12 HOURS SUBQ 06/06/20 21:00 07/17/20 08:59 06/10/20 20:49 Insulin Aspart (NovoLOG) EVERY 4 HOURS SUBQ 06/06/20 17:00 09/02/20 12:59 06/11/20 05:15 Insulin Detemir (Levemir) 8 units DAILY SUBQ 06/09/20 09:00 09/07/20 08:59 06/10/20 09:12 Midodrine (Pro-Amatine) 2.5 mg THREE TIMES A DAY ORAL 06/06/20 18:00 09/04/20 10:59 06/10/20 17:36 Pravastatin Sodium (Pravachol) 20 mg BEDTIME GT 06/06/20 21:00 07/02/20 20:59 06/10/20 20:47 Sennosides (Senokot) 8.6 mg DAILY GT 06/07/20 09:00 07/02/20 08:59 06/10/20 09:04 Marixa Oliva M.D. Jun 11, 2020 08:16
[2020-06-11 08:22] LABS: BASOPHILS % (AUTO) 0.7 % (0.0-2.0); EOSINOPHILS % (AUTO) 0.9 % (0.0-3.0); HEMATOCRIT 37.7 % (42.0-52.0); HEMOGLOBIN 11.6 G/DL (14.2-18.0); LYMPHOCYTES % (AUTO) 34.6 % (20.0-45.0); MEAN CORPUSCULAR VOLUME 99 FL (80-99); MONOCYTES % (AUTO) 5.2 % (1.0-10.0); NEUTROPHILS % (AUTO) 58.6 % (45.0-75.0); PLATELET COUNT 636 K/UL (150-450); RED BLOOD COUNT 3.82 M/UL (4.70-6.10); RED CELL DISTRIBUTION WIDTH 15.3 % (11.6-14.8); WHITE BLOOD COUNT 7.9 K/UL (4.8-10.8)
[2020-06-11] MEDS: Sennosides 8.6mg tab GT SCH (08:24)
[2020-06-11] MEDS: Amantadine 100mg cap GT SCH ×2 (08:24→18:17)
[2020-06-11] MEDS: Aspirin Baby 81mg GT SCH (08:25)
[2020-06-11] MEDS: Heparin 5000 units/ml inj SUBQ SCH ×2 (08:27→20:41)
[2020-06-11] MEDS: Levemir Flexpen SUBQ SCH ×2 (08:28→20:42)
[2020-06-11 08:49] LABS: ALANINE AMINOTRANSFERASE 42 U/L (12-78); ALBUMIN 2.5 G/DL (3.4-5.0); ALBUMIN/GLOBULIN RATIO 0.4 (1.0-2.7); ALKALINE PHOSPHATASE 243 U/L (46-116); ANION GAP 4 mmol/L (5-15); ASPARTATE AMINO TRANSFERASE 43 U/L (15-37); BILIRUBIN,TOTAL 0.1 MG/DL (0.2-1.0); BLOOD UREA NITROGEN 33 mg/dL (7-18); CALCIUM 10.2 MG/DL (8.5-10.1); CARBON DIOXIDE 36 MMOL/L (21-32); CHLORIDE 110 MMOL/L (98-107); CREATININE 1.1 MG/DL (0.55-1.30); PHOSPHORUS 8.9 MG/DL (2.5-4.9); POTASSIUM 4.2 MMOL/L (3.5-5.1); SODIUM 150 MMOL/L (136-145)
--- NOTE | 2020-06-11 09:35 | Surgery Progress Note ---
Surgery Progress Note Subjective Symptoms: improved, tolerating diet, passing flatus Objective Last 24 Hour Vital Signs Date Time Temp Pulse Resp B/P (MAP) Pulse Ox O2 Delivery O2 Flow Rate FiO2 06/11/20 08:00 97.8 94 18 110/68 (82) 96 06/11/20 04:00 98.5 95 18 129/67 (87) 95 06/11/20 00:00 98.9 102 18 141/75 (97) 97 06/10/20 21:00 Room Air 06/10/20 20:00 98.5 105 18 146/72 (96) 99 06/10/20 16:00 97.8 101 18 105/64 (78) 99 06/10/20 12:00 98.0 92 18 116/68 (84) 100 I&O Intake and Output 06/10/20 06/11/20 19:00 07:00 Intake Total 120 ml 860 ml Output Total 900 ml 400 ml Balance -780 ml 460 ml Free Water 200 ml Tube Feeding 120 ml 660 ml Output Urine Total 900 ml 400 ml # Voids 1 # Bowel Movements 2 Cardiovascular: RSR Respiratory: decreased breath sounds Abdomen: soft, non-tender, present bowel sounds Extremities: no tenderness, no cyanosis Laboratory Tests Test 06/11/20 07:15 White Blood Count 7.9 K/UL (4.8-10.8) Red Blood Count 3.82 M/UL (4.70-6.10) L Hemoglobin 11.6 G/DL (14.2-18.0) L Hematocrit 37.7 % (42.0-52.0) L Mean Corpuscular Volume 99 FL (80-99) Mean Corpuscular Hemoglobin 30.3 PG (27.0-31.0) Mean Corpuscular Hemoglobin Concent 30.8 G/DL (32.0-36.0) L Red Cell Distribution Width 15.3 % (11.6-14.8) H Platelet Count 636 K/UL (150-450) H Mean Platelet Volume 8.4 FL (6.5-10.1) Neutrophils (%) (Auto) 58.6 % (45.0-75.0) Lymphocytes (%) (Auto) 34.6 % (20.0-45.0) Monocytes (%) (Auto) 5.2 % (1.0-10.0) Eosinophils (%) (Auto) 0.9 % (0.0-3.0) Basophils (%) (Auto) 0.7 % (0.0-2.0) Erythrocyte Sedimentation Rate Pending Sodium Level 150 MMOL/L (136-145) H Potassium Level 4.2 MMOL/L (3.5-5.1) Chloride Level 110 MMOL/L (98-107) H Carbon Dioxide Level 36 MMOL/L (21-32) H Anion Gap 4 mmol/L (5-15) L Blood Urea Nitrogen 33 mg/dL (7-18) H Creatinine 1.1 MG/DL (0.55-1.30) Estimat Glomerular Filtration Rate > 60 mL/min (>60) Glucose Level 163 MG/DL (74-106) H Calcium Level 10.2 MG/DL (8.5-10.1) H Phosphorus Level 8.9 MG/DL (2.5-4.9) H Magnesium Level 2.7 MG/DL (1.8-2.4) H Total Bilirubin 0.1 MG/DL (0.2-1.0) L Aspartate Amino Transf (AST/SGOT) 43 U/L (15-37) H Alanine Aminotransferase (ALT/SGPT) 42 U/L (12-78) Alkaline Phosphatase 243 U/L (46-116) H C-Reactive Protein, Quantitative 3.4 mg/dL (0.00-0.90) H Total Protein 9.0 G/DL (6.4-8.2) H Albumin 2.5 G/DL (3.4-5.0) L Globulin 6.5 g/dL Albumin/Globulin Ratio 0.4 (1.0-2.7) L Plan Problems: (1) Hypernatremia (2) Dehydration (3) Hip fracture, left (4) Diabetes mellitus (5) History of hypertension (6) Severe protein-calorie malnutrition Assessment & Plan: DAILY ESTIMATED NEEDS: Needs based on Sepsis, DM/ 54kg 30-40 kcals/kg 7735-3918 total kcals 1.25-2 g protein/kg 68-108 g total protein 25-35ml/kcal mL/kg 4512-6721 total fluid mLs NUTRITION DIAGNOSIS: * Swallowing difficulty R/T dysphagia, as evidenced by Pt is GT dep. (CURRENT TF: Glucerna 1.5 @ 30ml/hr x 24 hrs) ENTERAL NUTRITION RECOMMENDATIONS: Glucerna 1.5 @ 60ml/hr x 20 hrs to provide 1200ml, 1800kcal, 99g prot, 911ml free water, 160g carbs * Rec to INCREASE TF GOAL to 60ml/hr for 20 hrs * HOB over 30 degrees, increased water flushes * TF at goal meets 100% est needs. -------- ADDITIONAL RECOMMENDATIONS: * Calibrated bedscale wt for accurate CBW * Monitor lytes daily w/ TF, replete as needed * Pt may require increase in insulin regimen for improved BG W/ continuous TF infusion * Wound healing: DOMENICA BID, F/up w/ WC eval . (7) Acute encephalopathy (8) Pressure Ulcer Of Sacral Region, Unstageable Assessment & Plan: Pt presented on admission with purple and indurated area at Sacrococcygeal at previously compromised site(L)7cm x (W)3cm.Surrounding Hyperpigmentation at Sacrum. Non-Blanching erythema without fluctuance R heel. Non-Blanching erythema with delineated margins L heel (L)4.5cm x (W)5.5cm. L Heel is boggy . Tx.Plan: Apply Moisture Barrier Paste to Sacrum. Cover with Optifoam drsgs. Change every 3 days and prn. Apply Cavilon Skin Barrier to R and L trochanter. Cover each site with Optifoam drsgs. Change every 7 days and prn. Apply Cavilon Skin Barrier to each heel and malleoli. Cover each site with Optifoam drsgs. Change every 7 days and prn. Reposition at least every 2hours or as tolerated. Off-load heels with pillow. improving cont current care tube site okay (9) Feeding by G-tube (10) Abdominal distention (11) Multiple drug resistant organism (MDRO) culture positive (12) Sepsis (13) History of CVA (cerebrovascular accident) (14) Parkinson disease James Breen Jun 11, 2020 09:35
--- NOTE | 2020-06-11 10:36 | Pulmonology Progress Note ---
Subjective ROS Limited/Unobtainable: Yes Constitutional: Reports: anorexia Allergies: Coded Allergies: No Known Allergies (Unverified , 08/27/19) All Systems: reviewed and negative except above Subjective pulse ox remains stable on RA no signs of resp distress denies CP, SOB, palpitations remains afebrile, no leukocytosis Objective Last 24 Hour Vital Signs Date Time Temp Pulse Resp B/P (MAP) Pulse Ox O2 Delivery O2 Flow Rate FiO2 06/11/20 08:00 97.8 94 18 110/68 (82) 96 06/11/20 04:00 98.5 95 18 129/67 (87) 95 06/11/20 00:00 98.9 102 18 141/75 (97) 97 06/10/20 21:00 Room Air 06/10/20 20:00 98.5 105 18 146/72 (96) 99 06/10/20 16:00 97.8 101 18 105/64 (78) 99 06/10/20 12:00 98.0 92 18 116/68 (84) 100 Intake and Output 06/10/20 06/11/20 19:00 07:00 Intake Total 120 ml 860 ml Output Total 900 ml 400 ml Balance -780 ml 460 ml Free Water 200 ml Tube Feeding 120 ml 660 ml Output Urine Total 900 ml 400 ml # Voids 1 # Bowel Movements 2 General Appearance: no acute distress, cachetic, other - bedridden AA male awake HEENT: normocephalic, atraumatic, anicteric Respiratory: chest wall non-tender, normal breath sounds Cardiovascular: normal peripheral pulses, normal rate Abdomen: soft, non tender, other Extremities: no edema Skin: no rash Neurologic: abnormal gait - bedridden , alert Lymphatic: no neck adenopathy Musculoskeletal: atrophy - BLE Laboratory Tests 06/11/20 07:15: White Blood Count 7.9, Red Blood Count 3.82L, Hemoglobin 11.6L, Hematocrit 37.7L , Mean Corpuscular Volume 99, Mean Corpuscular Hemoglobin 30.3, Mean Corpuscular Hemoglobin Concent 30.8L, Red Cell Distribution Width 15.3H, Platelet Count 636H, Mean Platelet Volume 8.4, Neutrophils (%) (Auto) 58.6, Lymphocytes (%) (Auto) 34.6, Monocytes (%) (Auto) 5.2, Eosinophils (%) (Auto) 0.9, Basophils (%) (Auto) 0.7, Erythrocyte Sedimentation Rate 103H, Sodium Level 150H, Potassium Level 4.2, Chloride Level 110H, Carbon Dioxide Level 36H, Anion Gap 4L, Blood Urea Nitrogen 33H, Creatinine 1.1, Estimat Glomerular Filtration Rate > 60, Glucose Level 163H, Calcium Level 10.2H, Phosphorus Level 8.9H, Magnesium Level 2.7H, Total Bilirubin 0.1L, Aspartate Amino Transf (AST/ SGOT) 43H, Alanine Aminotransferase (ALT/SGPT) 42, Alkaline Phosphatase 243H, C- Reactive Protein, Quantitative 3.4H, Total Protein 9.0H, Albumin 2.5L, Globulin 6.5, Albumin/Globulin Ratio 0.4L Current Medications Medications (Trade) Dose Ordered Sig/Debi Route PRN Reason Start Time Stop Time Status Last Admin Dose Admin Acetaminophen (Tylenol) 650 mg Q6H PRN GT Mild Pain (Pain Scale 1-3) 06/06/20 16:15 07/02/20 16:14 06/10/20 20:51 Amantadine HCl (Symmetrel) 100 mg TWICE A DAY GT 06/06/20 18:00 07/02/20 08:59 06/11/20 08:24 Aspirin (ASA) 81 mg DAILY GT 06/07/20 09:00 07/17/20 08:59 06/11/20 08:25 Dextrose (Dextrose 50%) 25 ml Q30M PRN IV Hypoglycemia 06/06/20 16:15 09/02/20 09:44 Dextrose (Dextrose 50%) 50 ml Q30M PRN IV Hypoglycemia 06/06/20 16:15 09/02/20 09:44 Famotidine (Pepcid) 20 mg BID GT 06/06/20 18:00 09/01/20 17:59 06/11/20 08:24 Heparin Sodium (Porcine) (Heparin 5000 units/ml) 5,000 units EVERY 12 HOURS SUBQ 06/06/20 21:00 07/17/20 08:59 06/11/20 08:27 Insulin Aspart (NovoLOG) EVERY 4 HOURS SUBQ 06/06/20 17:00 09/02/20 12:59 06/11/20 08:31 Insulin Detemir (Levemir) 8 units DAILY SUBQ 06/09/20 09:00 09/07/20 08:59 06/11/20 08:28 Midodrine (Pro-Amatine) 2.5 mg THREE TIMES A DAY ORAL 06/06/20 18:00 09/04/20 10:59 06/11/20 08:24 Pravastatin Sodium (Pravachol) 20 mg BEDTIME GT 06/06/20 21:00 07/02/20 20:59 06/10/20 20:47 Sennosides (Senokot) 8.6 mg DAILY GT 06/07/20 09:00 07/02/20 08:59 06/11/20 08:24 Assessment/Plan Assessment/Plan ASSESSMENT Sepsis UTI with Proteus ESBL Diabetes mellitus OOC Lactic acidosis likely due to metformin KELLY 2 to dehydration - resolved on CKD Dysphagia , feeding by G-tube Severe protein calorie malnutrition History of CVA Decubitus ulcer, present on admission Encephalopathy Parkinson disease PLAN OF CARE [facility] floor O2 titrate to keep sat above 92 pulse ox remains stable on RA CXR stable DVT prophylaxis strict aspiration precaution , G-tube feeding s/p abx for UTI BCX -NGT UCX +Protues ESBL COVID NGTu leukocytosis resolved s/p IVF renal US with left renal stone no hydro- creatinine trended down hyper Na improving KELLY and hyper Na likely due to dehydration and free water deficit initial lactic acidosis likely due to metformin - do not resume BS management as per endo recs: long-acting Levemir and resistant scale of insulin Hgb A1c 8.0 continue SNF medication , including amantadine for Parkinson ASA and statin BP support with midodrine dietary recs implemented in plan of care wound care as per surgeon recommendation, continue wound care at the facility supportive care case discussed and evaluated by supervising physician Kim Mahoney NP Jun 11, 2020 10:36
--- NOTE | 2020-06-11 11:10 | Nephrology Progress Note ---
Assessment/Plan Problem List: (1) Hypernatremia (2) Sepsis (3) History of CVA (cerebrovascular accident) (4) Parkinson disease (5) Feeding by G-tube (6) Dehydration Assessment KELLY, resolving, serum creatinine of 1.9 now down to 1.2 Hypernatremia, dehydration, free water deficit Sepsis Diabetes mellitus [id number] GT feeding Severe protein calorie malnutrition History of CVA History of hypertension Parkinson's disease Plan June 11: Labs reviewed. Stable renal parameters. June 10: Lab reviewed. Serum potassium normalized. Will give 1 L of D5W for high serum sodium. Continue per consultants. June 09: Labs reviewed. Discussed with RN. Serum potassium elevated. Suspect hemolysis. Will repeat serum potassium. DC all potassium supplements. June 08: Serum sodium higher. Will give 1 L of D5W. Renal parameters stable. Continue to monitor electrolytes. Continue per consultants. June 07: 1 bolus of D5W. Renal parameters stable. Serum sodium slightly high. Stable from renal standpoint of view. June 06: We will again discontinue the IV ordered. Stable from renal standpoint of view. Will start midodrine for low blood pressure. June 05: DC IV fluid. Potassium supplement given. Stable from renal standpoint to view. June 04: Potassium and magnesium supplement IV given, stable from renal standpoint of view. IV fluid D5W Monitor electrolytes Monitor renal parameters Hold blood pressure medication since blood pressure low Per orders, per consultants Subjective ROS Limited/Unobtainable: No Constitutional: Reports: malaise Objective Objective Last 24 Hour Vital Signs Date Time Temp Pulse Resp B/P (MAP) Pulse Ox O2 Delivery O2 Flow Rate FiO2 06/11/20 09:00 Room Air 06/11/20 08:00 97.8 94 18 110/68 (82) 96 06/11/20 04:00 98.5 95 18 129/67 (87) 95 06/11/20 00:00 98.9 102 18 141/75 (97) 97 06/10/20 21:00 Room Air 06/10/20 20:00 98.5 105 18 146/72 (96) 99 06/10/20 16:00 97.8 101 18 105/64 (78) 99 06/10/20 12:00 98.0 92 18 116/68 (84) 100 Intake and Output 06/10/20 06/11/20 19:00 07:00 Intake Total 120 ml 860 ml Output Total 900 ml 400 ml Balance -780 ml 460 ml Free Water 200 ml Tube Feeding 120 ml 660 ml Output Urine Total 900 ml 400 ml # Voids 1 # Bowel Movements 2 Laboratory Tests 06/11/20 07:15: White Blood Count 7.9, Red Blood Count 3.82L, Hemoglobin 11.6L, Hematocrit 37.7L , Mean Corpuscular Volume 99, Mean Corpuscular Hemoglobin 30.3, Mean Corpuscular Hemoglobin Concent 30.8L, Red Cell Distribution Width 15.3H, Platelet Count 636H, Mean Platelet Volume 8.4, Neutrophils (%) (Auto) 58.6, Lymphocytes (%) (Auto) 34.6, Monocytes (%) (Auto) 5.2, Eosinophils (%) (Auto) 0.9, Basophils (%) (Auto) 0.7, Erythrocyte Sedimentation Rate 103H, Sodium Level 150H, Potassium Level 4.2, Chloride Level 110H, Carbon Dioxide Level 36H, Anion Gap 4L, Blood Urea Nitrogen 33H, Creatinine 1.1, Estimat Glomerular Filtration Rate > 60, Glucose Level 163H, Calcium Level 10.2H, Phosphorus Level 8.9H, Magnesium Level 2.7H, Total Bilirubin 0.1L, Aspartate Amino Transf (AST/ SGOT) 43H, Alanine Aminotransferase (ALT/SGPT) 42, Alkaline Phosphatase 243H, C- Reactive Protein, Quantitative 3.4H, Total Protein 9.0H, Albumin 2.5L, Globulin 6.5, Albumin/Globulin Ratio 0.4L Height (Feet): 5 Height (Inches): 5.00 Weight (Pounds): 123 General Appearance: no apparent distress Objective No change Eddie Nelson MD Jun 11, 2020 11:10
[2020-06-11 11:40] VITALS: BP 114/69
--- NOTE | 2020-06-11 15:06 | Internal Med Progress Note ---
Subjective Date of Service: Jun 11, 2020 Physician Name JordynTello Attending Physician Cirilo Rome MD Current Medications Medications (Trade) Dose Ordered Sig/Debi Route PRN Reason Start Time Stop Time Status Last Admin Dose Admin Acetaminophen (Tylenol) 650 mg Q6H PRN GT Mild Pain (Pain Scale 1-3) 06/06/20 16:15 07/02/20 16:14 06/10/20 20:51 Amantadine HCl (Symmetrel) 100 mg TWICE A DAY GT 06/06/20 18:00 07/02/20 08:59 06/11/20 08:24 Aspirin (ASA) 81 mg DAILY GT 06/07/20 09:00 07/17/20 08:59 06/11/20 08:25 Dextrose (Dextrose 50%) 25 ml Q30M PRN IV Hypoglycemia 06/06/20 16:15 09/02/20 09:44 Dextrose (Dextrose 50%) 50 ml Q30M PRN IV Hypoglycemia 06/06/20 16:15 09/02/20 09:44 Famotidine (Pepcid) 20 mg BID GT 06/06/20 18:00 09/01/20 17:59 06/11/20 08:24 Heparin Sodium (Porcine) (Heparin 5000 units/ml) 5,000 units EVERY 12 HOURS SUBQ 06/06/20 21:00 07/17/20 08:59 06/11/20 08:27 Insulin Aspart (NovoLOG) EVERY 4 HOURS SUBQ 06/06/20 17:00 09/02/20 12:59 06/11/20 12:52 Insulin Detemir (Levemir) 8 units DAILY SUBQ 06/09/20 09:00 09/07/20 08:59 06/11/20 08:28 Midodrine (Pro-Amatine) 2.5 mg THREE TIMES A DAY ORAL 06/06/20 18:00 09/04/20 10:59 06/11/20 12:49 Pravastatin Sodium (Pravachol) 20 mg BEDTIME GT 06/06/20 21:00 07/02/20 20:59 06/10/20 20:47 Sennosides (Senokot) 8.6 mg DAILY GT 06/07/20 09:00 07/02/20 08:59 06/11/20 08:24 Allergies: Coded Allergies: No Known Allergies (Unverified , 08/27/19) ROS Limited/Unobtainable: Yes Subjective 79 YO M admitted with hyperglycemia and hypernatremia. Now UTI. Cover for Int Dusty-Dr Rome Objective Last Vital Signs Date Time Temp Pulse Resp B/P (MAP) Pulse Ox O2 Delivery O2 Flow Rate FiO2 06/11/20 11:40 95.7 88 18 114/69 (84) 98 06/11/20 09:00 Room Air Laboratory Tests Test 06/11/20 07:15 White Blood Count 7.9 K/UL (4.8-10.8) Red Blood Count 3.82 M/UL (4.70-6.10) L Hemoglobin 11.6 G/DL (14.2-18.0) L Hematocrit 37.7 % (42.0-52.0) L Mean Corpuscular Volume 99 FL (80-99) Mean Corpuscular Hemoglobin 30.3 PG (27.0-31.0) Mean Corpuscular Hemoglobin Concent 30.8 G/DL (32.0-36.0) L Red Cell Distribution Width 15.3 % (11.6-14.8) H Platelet Count 636 K/UL (150-450) H Mean Platelet Volume 8.4 FL (6.5-10.1) Neutrophils (%) (Auto) 58.6 % (45.0-75.0) Lymphocytes (%) (Auto) 34.6 % (20.0-45.0) Monocytes (%) (Auto) 5.2 % (1.0-10.0) Eosinophils (%) (Auto) 0.9 % (0.0-3.0) Basophils (%) (Auto) 0.7 % (0.0-2.0) Erythrocyte Sedimentation Rate 103 MM/HR (0-20) H Sodium Level 150 MMOL/L (136-145) H Potassium Level 4.2 MMOL/L (3.5-5.1) Chloride Level 110 MMOL/L (98-107) H Carbon Dioxide Level 36 MMOL/L (21-32) H Anion Gap 4 mmol/L (5-15) L Blood Urea Nitrogen 33 mg/dL (7-18) H Creatinine 1.1 MG/DL (0.55-1.30) Estimat Glomerular Filtration Rate > 60 mL/min (>60) Glucose Level 163 MG/DL (74-106) H Calcium Level 10.2 MG/DL (8.5-10.1) H Phosphorus Level 8.9 MG/DL (2.5-4.9) H Magnesium Level 2.7 MG/DL (1.8-2.4) H Total Bilirubin 0.1 MG/DL (0.2-1.0) L Aspartate Amino Transf (AST/SGOT) 43 U/L (15-37) H Alanine Aminotransferase (ALT/SGPT) 42 U/L (12-78) Alkaline Phosphatase 243 U/L (46-116) H C-Reactive Protein, Quantitative 3.4 mg/dL (0.00-0.90) H Total Protein 9.0 G/DL (6.4-8.2) H Albumin 2.5 G/DL (3.4-5.0) L Globulin 6.5 g/dL Albumin/Globulin Ratio 0.4 (1.0-2.7) L Intake and Output 06/10/20 06/11/20 19:00 07:00 Intake Total 120 ml 860 ml Output Total 900 ml 400 ml Balance -780 ml 460 ml Free Water 200 ml Tube Feeding 120 ml 660 ml Output Urine Total 900 ml 400 ml # Voids 1 # Bowel Movements 2 Objective PHYSICAL EXAMINATION: GENERAL: The patient is a well-developed, well-nourished, thin-appearing, male, in no apparent distress. HEENT: Eyes, pupils equal and responsive to light and accommodation. Extraocular movements are intact. NECK: Supple without lymphadenopathy. CHEST: Lungs are clear to auscultation bilaterally without wheezes or rales. CARDIOVASCULAR: Slightly tachycardic, regular rhythm. S1, S2 are normal without murmurs, rubs, or gallops. ABDOMEN: Soft, nontender, and nondistended. Positive bowel sounds. No evidence of hepatosplenomegaly. Currently, no rebound or guarding noted. EXTREMITIES: Negative for clubbing, cyanosis, or edema. RECTAL: Not performed. GENITAL: Not performed. NEUROLOGIC: Cranial nerves II through XII are grossly intact without focal deficits. Assessment/Plan Assessment/Plan ASSESSMENT: This is a 79-year-old male with: 1. Hyperglycemia. 2. Hypernatremia. 3. Urinary tract infection=MDR proteus. 4. Diabetes type 2. 5. Hypertension. 6. Hypercholesterolemia. 7. Dysphagia. 8. Parkinson disease. 9. Ulcerative proctitis. 10. Protein-calorie malnutrition. 11. History of sacral decubitus ulcer stage IV. 12. Benign prostatic hypertrophy. 13. Gastroesophageal reflux disease. 14. Metabolic encephalopathy. 15. History of left hip fracture. TREATMENT: 1. Hyperglycemia/diabetes. The patient has been placed on a protocol using NovoLog sliding scale. The patient's blood sugars have been running in 300s. Hyperglycemia may be secondary to urinary tract infection. 2. Urinary tract infection. Urine culture =MDR proteus. ABX= meropenem. results.ID=Dr Oliva 3. Hypertension. Continue amlodipine as above. 4. Hypercholesterolemia. Continue atorvastatin as above. 5. Dysphagia. The patient is status post PEG placement. 6. Parkinson disease. Continue amantadine as above. 7. Ulcerative proctitis. 8. Protein-calorie malnutrition. 9. Sacral decubitus ulcer stage IV. 10. Benign prostatic hypertrophy. Continue tamsulosin as above. 11. Gastroesophageal reflux disease. 12. Metabolic encephalopathy. 13. History of left hip fracture. Tello Cobb MD Jun 11, 2020 15:06
[2020-06-11 16:00] VITALS: BP 115/72
--- NOTE | 2020-06-11 19:28 | NUR ---
HAND-OFF: Report given to Amina TURNER.
--- NOTE | 2020-06-11 19:31 | NUR ---
NURSE NOTES: Patient is in bed, asleep at this time. Breathing unlabored. IV intact and patent. G-tube intact and running tube feeding as ordered. Adams in place and draining to gravity. HOB elevated. Bed locked and in lowest position. Bed alarm on. Call light within reach. Will continue plan of care.
[2020-06-11 20:00] VITALS: BP 104/61
[2020-06-12] VITALS: BP 109/61
[2020-06-12] MEDS: NovoLOG Insulin Flexpen SUBQ SCH ×4 (01:35→18:09)
[2020-06-12 04:00] VITALS: BP 120/77
[2020-06-12 07:36] LABS: BASOPHILS % (AUTO) 0.9 % (0.0-2.0); EOSINOPHILS % (AUTO) 1.1 % (0.0-3.0); HEMOGLOBIN 11.3 G/DL (14.2-18.0); LYMPHOCYTES % (AUTO) 37.7 % (20.0-45.0); MEAN CORPUSCULAR VOLUME 100 FL (80-99); MONOCYTES % (AUTO) 7.5 % (1.0-10.0); NEUTROPHILS % (AUTO) 52.8 % (45.0-75.0); PLATELET COUNT 564 K/UL (150-450); RED BLOOD COUNT 3.69 M/UL (4.70-6.10); RED CELL DISTRIBUTION WIDTH 15.5 % (11.6-14.8)
[2020-06-12 08:00] VITALS: BP 122/79
[2020-06-12 08:04] LABS: ALANINE AMINOTRANSFERASE 37 U/L (12-78); ALBUMIN 2.4 G/DL (3.4-5.0); ALBUMIN/GLOBULIN RATIO 0.4 (1.0-2.7); ALKALINE PHOSPHATASE 228 U/L (46-116); ANION GAP 5 mmol/L (5-15); ASPARTATE AMINO TRANSFERASE 28 U/L (15-37); BILIRUBIN,TOTAL 0.1 MG/DL (0.2-1.0); BLOOD UREA NITROGEN 38 mg/dL (7-18); CALCIUM 10.1 MG/DL (8.5-10.1); CARBON DIOXIDE 34 MMOL/L (21-32); CHLORIDE 111 MMOL/L (98-107); CREATININE 1.2 MG/DL (0.55-1.30); PHOSPHORUS 3.2 MG/DL (2.5-4.9); POTASSIUM 4.5 MMOL/L (3.5-5.1); SODIUM 150 MMOL/L (136-145)
--- NOTE | 2020-06-12 08:04 | NUR ---
NURSE HAND-OFF: Important Events on Shift: No important events Patient Status: stable Diet: glucerna 1.5 Pending Orders: N/A Pending Results/Labs: cbc Pending MD notification: N/A Latest Vital Signs: Temperature 97.5 , Pulse 96 , B/P 120 /77 , Respiratory Rate 19 , O2 SAT 97 , Room Air, O2 Flow Rate 3.0 . Vital Sign Comment: Latest Lane Fall Score: 70 Fall Risk: High Risk Safety Measures: Call light Within Reach, Bed Alarm Zone 1, Side Rails Side Rails x3, Bed position Low and Locked. Fall Precautions: Yellow Socks Yellow Gown Door Sign Patient Fall Education Report given to JOHNNY Gomes.
[2020-06-12] MEDS: Amantadine 100mg cap GT SCH ×2 (08:46→18:06)
[2020-06-12] MEDS: Sennosides 8.6mg tab GT SCH (08:46)
[2020-06-12] MEDS: Aspirin Baby 81mg GT SCH (08:46)
[2020-06-12] MEDS: Heparin 5000 units/ml inj SUBQ SCH ×2 (08:47→21:34)
[2020-06-12] MEDS: Levemir Flexpen SUBQ SCH ×2 (08:48→21:37)
--- NOTE | 2020-06-12 09:44 | Nephrology Progress Note ---
Assessment/Plan Problem List: (1) Hypernatremia (2) Sepsis (3) History of CVA (cerebrovascular accident) (4) Parkinson disease (5) Feeding by G-tube (6) Dehydration Assessment KELLY, resolving, serum creatinine of 1.9 now down to 1.2 Hypernatremia, dehydration, free water deficit Sepsis Diabetes mellitus [id number] GT feeding Severe protein calorie malnutrition History of CVA History of hypertension Parkinson's disease Plan June 12: Labs reviewed. Stable from renal standpoint of view. June 11: Labs reviewed. Stable renal parameters. June 10: Lab reviewed. Serum potassium normalized. Will give 1 L of D5W for high serum sodium. Continue per consultants. June 09: Labs reviewed. Discussed with RN. Serum potassium elevated. Suspect hemolysis. Will repeat serum potassium. DC all potassium supplements. June 08: Serum sodium higher. Will give 1 L of D5W. Renal parameters stable. Continue to monitor electrolytes. Continue per consultants. June 07: 1 bolus of D5W. Renal parameters stable. Serum sodium slightly high. Stable from renal standpoint of view. June 06: We will again discontinue the IV ordered. Stable from renal standpoint of view. Will start midodrine for low blood pressure. June 05: DC IV fluid. Potassium supplement given. Stable from renal standpoint to view. June 04: Potassium and magnesium supplement IV given, stable from renal standpoint of view. IV fluid D5W Monitor electrolytes Monitor renal parameters Hold blood pressure medication since blood pressure low Per orders, per consultants Subjective ROS Limited/Unobtainable: No Constitutional: Reports: malaise Objective Objective Last 24 Hour Vital Signs Date Time Temp Pulse Resp B/P (MAP) Pulse Ox O2 Delivery O2 Flow Rate FiO2 06/12/20 08:00 97.4 98 19 122/79 (93) 98 06/12/20 04:00 97.5 96 19 120/77 (91) 97 06/12/20 00:00 97.8 70 20 109/61 (77) 97 06/11/20 21:00 Room Air 06/11/20 20:00 97.3 96 20 104/61 (75) 97 06/11/20 16:00 98.2 86 18 115/72 (86) 98 06/11/20 11:40 95.7 88 18 114/69 (84) 98 Intake and Output 06/11/20 06/12/20 19:00 07:00 Output Total 700 ml 650 ml Balance -700 ml -650 ml Output Urine Total 700 ml 650 ml # Voids 1 Laboratory Tests 06/12/20 07:10: White Blood Count 7.0, Red Blood Count 3.69L, Hemoglobin 11.3L, Hematocrit 37.0L , Mean Corpuscular Volume 100H, Mean Corpuscular Hemoglobin 30.5, Mean Corpuscular Hemoglobin Concent 30.4L, Red Cell Distribution Width 15.5H, Platelet Count 564H, Mean Platelet Volume 8.4, Neutrophils (%) (Auto) 52.8, Lymphocytes (%) (Auto) 37.7, Monocytes (%) (Auto) 7.5, Eosinophils (%) (Auto) 1.1, Basophils (%) (Auto) 0.9, Sodium Level 150H, Potassium Level 4.5, Chloride Level 111H, Carbon Dioxide Level 34H, Anion Gap 5, Blood Urea Nitrogen 38H, Creatinine 1.2, Estimat Glomerular Filtration Rate > 60, Glucose Level 191H, Hemoglobin A1c 7.9H, Calcium Level 10.1, Phosphorus Level 3.2, Total Bilirubin 0.1L, Aspartate Amino Transf (AST/SGOT) 28, Alanine Aminotransferase (ALT/SGPT) 37, Alkaline Phosphatase 228H, Total Protein 8.6H, Albumin 2.4L, Globulin 6.2, Albumin/Globulin Ratio 0.4L Height (Feet): 5 Height (Inches): 5.00 Weight (Pounds): 123 General Appearance: no apparent distress Cardiovascular: tachycardia - Rate mid 90s Respiratory/Chest: decreased breath sounds Abdomen: soft Objective No change Eddie Nelson MD Jun 12, 2020 09:44
--- NOTE | 2020-06-12 10:49 | Pulmonology Progress Note ---
Subjective ROS Limited/Unobtainable: No Constitutional: Reports: anorexia Allergies: Coded Allergies: No Known Allergies (Unverified , 08/27/19) All Systems: reviewed and negative except above Subjective pulse ox remains stable on RA no signs of resp distress denies CP, SOB, palpitations remains afebrile, no leukocytosis Objective Last 24 Hour Vital Signs Date Time Temp Pulse Resp B/P (MAP) Pulse Ox O2 Delivery O2 Flow Rate FiO2 06/12/20 09:00 Room Air 06/12/20 08:00 97.4 98 19 122/79 (93) 98 06/12/20 04:00 97.5 96 19 120/77 (91) 97 06/12/20 00:00 97.8 70 20 109/61 (77) 97 06/11/20 21:00 Room Air 06/11/20 20:00 97.3 96 20 104/61 (75) 97 06/11/20 16:00 98.2 86 18 115/72 (86) 98 06/11/20 11:40 95.7 88 18 114/69 (84) 98 Intake and Output 06/11/20 06/12/20 19:00 07:00 Output Total 700 ml 650 ml Balance -700 ml -650 ml Output Urine Total 700 ml 650 ml # Voids 1 Objective General Appearance: no acute distress, cachetic, bedridden AA male awake HEENT: normocephalic, atraumatic, anicteric Respiratory: chest wall non-tender, normal breath sounds Cardiovascular: normal peripheral pulses, normal rate Abdomen: soft, non tender, Extremities: no edema Skin: no rash Neurologic: abnormal gait - bedridden , alert Lymphatic: no neck adenopathy Musculoskeletal: atrophy - BLE Laboratory Tests 06/12/20 07:10: White Blood Count 7.0, Red Blood Count 3.69L, Hemoglobin 11.3L, Hematocrit 37.0L , Mean Corpuscular Volume 100H, Mean Corpuscular Hemoglobin 30.5, Mean Corpuscular Hemoglobin Concent 30.4L, Red Cell Distribution Width 15.5H, Platelet Count 564H, Mean Platelet Volume 8.4, Neutrophils (%) (Auto) 52.8, Lymphocytes (%) (Auto) 37.7, Monocytes (%) (Auto) 7.5, Eosinophils (%) (Auto) 1.1, Basophils (%) (Auto) 0.9, Sodium Level 150H, Potassium Level 4.5, Chloride Level 111H, Carbon Dioxide Level 34H, Anion Gap 5, Blood Urea Nitrogen 38H, Creatinine 1.2, Estimat Glomerular Filtration Rate > 60, Glucose Level 191H, Hemoglobin A1c 7.9H, Calcium Level 10.1, Phosphorus Level 3.2, Total Bilirubin 0.1L, Aspartate Amino Transf (AST/SGOT) 28, Alanine Aminotransferase (ALT/SGPT) 37, Alkaline Phosphatase 228H, Total Protein 8.6H, Albumin 2.4L, Globulin 6.2, Albumin/Globulin Ratio 0.4L Current Medications Medications (Trade) Dose Ordered Sig/Debi Route PRN Reason Start Time Stop Time Status Last Admin Dose Admin Acetaminophen (Tylenol) 650 mg Q6H PRN GT Mild Pain (Pain Scale 1-3) 06/06/20 16:15 07/02/20 16:14 06/10/20 20:51 Amantadine HCl (Symmetrel) 100 mg TWICE A DAY GT 06/06/20 18:00 07/02/20 08:59 06/12/20 08:46 Aspirin (ASA) 81 mg DAILY GT 06/07/20 09:00 07/17/20 08:59 06/12/20 08:46 Dextrose (Dextrose 50%) 25 ml Q30M PRN IV Hypoglycemia 06/06/20 16:15 09/02/20 09:44 Dextrose (Dextrose 50%) 25 ml Q30M PRN IV Hypoglycemia 06/11/20 17:45 09/09/20 17:44 Dextrose (Dextrose 50%) 50 ml Q30M PRN IV Hypoglycemia 06/06/20 16:15 09/02/20 09:44 Dextrose (Dextrose 50%) 50 ml Q30M PRN IV Hypoglycemia 06/11/20 17:45 09/09/20 17:44 Famotidine (Pepcid) 20 mg BID GT 06/06/20 18:00 09/01/20 17:59 06/12/20 08:46 Heparin Sodium (Porcine) (Heparin 5000 units/ml) 5,000 units EVERY 12 HOURS SUBQ 06/06/20 21:00 07/17/20 08:59 06/12/20 08:47 Insulin Aspart (NovoLOG) Q6HR SUBQ 06/11/20 18:00 09/09/20 17:59 06/12/20 05:43 Insulin Detemir (Levemir) 15 units EVERY 12 HOURS SUBQ 06/11/20 21:00 09/09/20 20:59 06/12/20 08:48 Midodrine (Pro-Amatine) 2.5 mg THREE TIMES A DAY ORAL 06/06/20 18:00 09/04/20 10:59 06/12/20 08:46 Pravastatin Sodium (Pravachol) 20 mg BEDTIME GT 06/06/20 21:00 07/02/20 20:59 06/11/20 20:35 Sennosides (Senokot) 8.6 mg DAILY GT 06/07/20 09:00 07/02/20 08:59 06/12/20 08:46 Assessment/Plan Assessment/Plan ASSESSMENT Sepsis UTI with Proteus ESBL Diabetes mellitus OOC Lactic acidosis likely due to metformin KELLY 2 to dehydration - resolved on CKD Dysphagia , feeding by G-tube Severe protein calorie malnutrition History of CVA Decubitus ulcer, present on admission Encephalopathy Parkinson disease PLAN OF CARE [facility] floor O2 titrate to keep sat above 92 pulse ox remains stable on RA CXR stable DVT prophylaxis strict aspiration precaution , G-tube feeding s/p abx for UTI BCX -NGT UCX +Proteus ESBL COVID NGT leukocytosis resolved s/p IVF renal US with left renal stone no hydro- creatinine trended down hyper Na improving KELLY and hyper Na likely due to dehydration and free water deficit initial lactic acidosis likely due to metformin - do not resume BS management as per endo recs: long-acting Levemir and resistant scale of insulin Hgb A1c 7.9 continue SNF medication , including amantadine for Parkinson ASA and statin BP support with midodrine dietary recs implemented in plan of care wound care as per surgeon recommendation, continue wound care at the facility supportive care case discussed and evaluated by supervising physician Kim Mahoney NP Jun 12, 2020 10:49
[2020-06-12 12:00] VITALS: BP 122/79
--- NOTE | 2020-06-12 13:10 | Surgery Progress Note ---
Surgery Progress Note Subjective Symptoms: improved, tolerating diet, passing flatus Objective Last 24 Hour Vital Signs Date Time Temp Pulse Resp B/P (MAP) Pulse Ox O2 Delivery O2 Flow Rate FiO2 06/12/20 12:00 97.4 98 20 122/79 (93) 98 06/12/20 09:00 Room Air 06/12/20 08:00 97.4 98 19 122/79 (93) 98 06/12/20 04:00 97.5 96 19 120/77 (91) 97 06/12/20 00:00 97.8 70 20 109/61 (77) 97 06/11/20 21:00 Room Air 06/11/20 20:00 97.3 96 20 104/61 (75) 97 06/11/20 16:00 98.2 86 18 115/72 (86) 98 I&O Intake and Output 06/11/20 06/12/20 18:59 06:59 Output Total 700 ml 650 ml Balance -700 ml -650 ml Output Urine Total 700 ml 650 ml # Voids 1 Dressing: saturated Cardiovascular: RSR Respiratory: decreased breath sounds Abdomen: soft, non-tender, present bowel sounds Extremities: no tenderness, no cyanosis Laboratory Tests Test 06/12/20 07:10 White Blood Count 7.0 K/UL (4.8-10.8) Red Blood Count 3.69 M/UL (4.70-6.10) L Hemoglobin 11.3 G/DL (14.2-18.0) L Hematocrit 37.0 % (42.0-52.0) L Mean Corpuscular Volume 100 FL (80-99) H Mean Corpuscular Hemoglobin 30.5 PG (27.0-31.0) Mean Corpuscular Hemoglobin Concent 30.4 G/DL (32.0-36.0) L Red Cell Distribution Width 15.5 % (11.6-14.8) H Platelet Count 564 K/UL (150-450) H Mean Platelet Volume 8.4 FL (6.5-10.1) Neutrophils (%) (Auto) 52.8 % (45.0-75.0) Lymphocytes (%) (Auto) 37.7 % (20.0-45.0) Monocytes (%) (Auto) 7.5 % (1.0-10.0) Eosinophils (%) (Auto) 1.1 % (0.0-3.0) Basophils (%) (Auto) 0.9 % (0.0-2.0) Sodium Level 150 MMOL/L (136-145) H Potassium Level 4.5 MMOL/L (3.5-5.1) Chloride Level 111 MMOL/L (98-107) H Carbon Dioxide Level 34 MMOL/L (21-32) H Anion Gap 5 mmol/L (5-15) Blood Urea Nitrogen 38 mg/dL (7-18) H Creatinine 1.2 MG/DL (0.55-1.30) Estimat Glomerular Filtration Rate > 60 mL/min (>60) Glucose Level 191 MG/DL (74-106) H Hemoglobin A1c 7.9 % (4.3-6.0) H Calcium Level 10.1 MG/DL (8.5-10.1) Phosphorus Level 3.2 MG/DL (2.5-4.9) Total Bilirubin 0.1 MG/DL (0.2-1.0) L Aspartate Amino Transf (AST/SGOT) 28 U/L (15-37) Alanine Aminotransferase (ALT/SGPT) 37 U/L (12-78) Alkaline Phosphatase 228 U/L (46-116) H Total Protein 8.6 G/DL (6.4-8.2) H Albumin 2.4 G/DL (3.4-5.0) L Globulin 6.2 g/dL Albumin/Globulin Ratio 0.4 (1.0-2.7) L Plan Problems: (1) Hypernatremia (2) Dehydration (3) Hip fracture, left (4) Diabetes mellitus (5) History of hypertension (6) Severe protein-calorie malnutrition Assessment & Plan: DAILY ESTIMATED NEEDS: Needs based on Sepsis, DM/ 54kg 30-40 kcals/kg 2636-8269 total kcals 1.25-2 g protein/kg 68-108 g total protein 25-35ml/kcal mL/kg 3724-1197 total fluid mLs NUTRITION DIAGNOSIS: * Swallowing difficulty R/T dysphagia, as evidenced by Pt is GT dep. (CURRENT TF: Glucerna 1.5 @ 30ml/hr x 24 hrs) ENTERAL NUTRITION RECOMMENDATIONS: Glucerna 1.5 @ 60ml/hr x 20 hrs to provide 1200ml, 1800kcal, 99g prot, 911ml free water, 160g carbs * Rec to INCREASE TF GOAL to 60ml/hr for 20 hrs * HOB over 30 degrees, increased water flushes * TF at goal meets 100% est needs. -------- ADDITIONAL RECOMMENDATIONS: * Calibrated bedscale wt for accurate CBW * Monitor lytes daily w/ TF, replete as needed * Pt may require increase in insulin regimen for improved BG W/ continuous TF infusion * Wound healing: DOMENICA BID, F/up w/ WC eval . (7) Acute encephalopathy (8) Pressure Ulcer Of Sacral Region, Unstageable Assessment & Plan: Pt presented on admission with purple and indurated area at Sacrococcygeal at previously compromised site(L)7cm x (W)3cm.Surrounding Hyperpigmentation at Sacrum. Non-Blanching erythema without fluctuance R heel. Non-Blanching erythema with delineated margins L heel (L)4.5cm x (W)5.5cm. L Heel is boggy . Tx.Plan: Apply Moisture Barrier Paste to Sacrum. Cover with Optifoam drsgs. Change every 3 days and prn. Apply Cavilon Skin Barrier to R and L trochanter. Cover each site with Optifoam drsgs. Change every 7 days and prn. Apply Cavilon Skin Barrier to each heel and malleoli. Cover each site with Optifoam drsgs. Change every 7 days and prn. Reposition at least every 2hours or as tolerated. Off-load heels with pillow. improving cont current care tube site okay (9) Feeding by G-tube (10) Abdominal distention (11) Multiple drug resistant organism (MDRO) culture positive (12) Sepsis (13) History of CVA (cerebrovascular accident) (14) Parkinson disease James Breen Jun 12, 2020 13:10
[2020-06-12 16:00] VITALS: BP 131/78
--- NOTE | 2020-06-12 16:02 | Internal Med Progress Note ---
Subjective Date of Service: Jun 12, 2020 Physician Name JordynTello Attending Physician Cirilo Rome MD Current Medications Medications (Trade) Dose Ordered Sig/Debi Route PRN Reason Start Time Stop Time Status Last Admin Dose Admin Acetaminophen (Tylenol) 650 mg Q6H PRN GT Mild Pain (Pain Scale 1-3) 06/06/20 16:15 07/02/20 16:14 06/10/20 20:51 Amantadine HCl (Symmetrel) 100 mg TWICE A DAY GT 06/06/20 18:00 07/02/20 08:59 06/12/20 08:46 Aspirin (ASA) 81 mg DAILY GT 06/07/20 09:00 07/17/20 08:59 06/12/20 08:46 Dextrose (Dextrose 50%) 25 ml Q30M PRN IV Hypoglycemia 06/06/20 16:15 09/02/20 09:44 Dextrose (Dextrose 50%) 25 ml Q30M PRN IV Hypoglycemia 06/11/20 17:45 09/09/20 17:44 Dextrose (Dextrose 50%) 50 ml Q30M PRN IV Hypoglycemia 06/06/20 16:15 09/02/20 09:44 Dextrose (Dextrose 50%) 50 ml Q30M PRN IV Hypoglycemia 06/11/20 17:45 09/09/20 17:44 Famotidine (Pepcid) 20 mg BID GT 06/06/20 18:00 09/01/20 17:59 06/12/20 08:46 Heparin Sodium (Porcine) (Heparin 5000 units/ml) 5,000 units EVERY 12 HOURS SUBQ 06/06/20 21:00 07/17/20 08:59 06/12/20 08:47 Insulin Aspart (NovoLOG) Q6HR SUBQ 06/11/20 18:00 09/09/20 17:59 06/12/20 12:15 Insulin Detemir (Levemir) 15 units EVERY 12 HOURS SUBQ 06/11/20 21:00 09/09/20 20:59 06/12/20 08:48 Midodrine (Pro-Amatine) 2.5 mg THREE TIMES A DAY ORAL 06/06/20 18:00 09/04/20 10:59 06/12/20 13:08 Pravastatin Sodium (Pravachol) 20 mg BEDTIME GT 06/06/20 21:00 07/02/20 20:59 06/11/20 20:35 Sennosides (Senokot) 8.6 mg DAILY GT 06/07/20 09:00 07/02/20 08:59 06/12/20 08:46 Allergies: Coded Allergies: No Known Allergies (Unverified , 08/27/19) ROS Limited/Unobtainable: Yes Subjective 79 YO M admitted with hyperglycemia and hypernatremia. Now UTI. Cover for Int Dusty-Dr Rome Objective Last Vital Signs Date Time Temp Pulse Resp B/P (MAP) Pulse Ox O2 Delivery O2 Flow Rate FiO2 06/12/20 12:00 97.4 98 20 122/79 (93) 98 06/12/20 09:00 Room Air Laboratory Tests Test 06/12/20 07:10 White Blood Count 7.0 K/UL (4.8-10.8) Red Blood Count 3.69 M/UL (4.70-6.10) L Hemoglobin 11.3 G/DL (14.2-18.0) L Hematocrit 37.0 % (42.0-52.0) L Mean Corpuscular Volume 100 FL (80-99) H Mean Corpuscular Hemoglobin 30.5 PG (27.0-31.0) Mean Corpuscular Hemoglobin Concent 30.4 G/DL (32.0-36.0) L Red Cell Distribution Width 15.5 % (11.6-14.8) H Platelet Count 564 K/UL (150-450) H Mean Platelet Volume 8.4 FL (6.5-10.1) Neutrophils (%) (Auto) 52.8 % (45.0-75.0) Lymphocytes (%) (Auto) 37.7 % (20.0-45.0) Monocytes (%) (Auto) 7.5 % (1.0-10.0) Eosinophils (%) (Auto) 1.1 % (0.0-3.0) Basophils (%) (Auto) 0.9 % (0.0-2.0) Sodium Level 150 MMOL/L (136-145) H Potassium Level 4.5 MMOL/L (3.5-5.1) Chloride Level 111 MMOL/L (98-107) H Carbon Dioxide Level 34 MMOL/L (21-32) H Anion Gap 5 mmol/L (5-15) Blood Urea Nitrogen 38 mg/dL (7-18) H Creatinine 1.2 MG/DL (0.55-1.30) Estimat Glomerular Filtration Rate > 60 mL/min (>60) Glucose Level 191 MG/DL (74-106) H Hemoglobin A1c 7.9 % (4.3-6.0) H Calcium Level 10.1 MG/DL (8.5-10.1) Phosphorus Level 3.2 MG/DL (2.5-4.9) Total Bilirubin 0.1 MG/DL (0.2-1.0) L Aspartate Amino Transf (AST/SGOT) 28 U/L (15-37) Alanine Aminotransferase (ALT/SGPT) 37 U/L (12-78) Alkaline Phosphatase 228 U/L (46-116) H Total Protein 8.6 G/DL (6.4-8.2) H Albumin 2.4 G/DL (3.4-5.0) L Globulin 6.2 g/dL Albumin/Globulin Ratio 0.4 (1.0-2.7) L Intake and Output 06/11/20 06/12/20 19:00 07:00 Output Total 700 ml 650 ml Balance -700 ml -650 ml Output Urine Total 700 ml 650 ml # Voids 1 Objective PHYSICAL EXAMINATION: GENERAL: The patient is a well-developed, well-nourished, thin-appearing, male, in no apparent distress. HEENT: Eyes, pupils equal and responsive to light and accommodation. Extraocular movements are intact. NECK: Supple without lymphadenopathy. CHEST: Lungs are clear to auscultation bilaterally without wheezes or rales. CARDIOVASCULAR: Slightly tachycardic, regular rhythm. S1, S2 are normal without murmurs, rubs, or gallops. ABDOMEN: Soft, nontender, and nondistended. Positive bowel sounds. No evidence of hepatosplenomegaly. Currently, no rebound or guarding noted. EXTREMITIES: Negative for clubbing, cyanosis, or edema. RECTAL: Not performed. GENITAL: Not performed. NEUROLOGIC: Cranial nerves II through XII are grossly intact without focal deficits. Assessment/Plan Assessment/Plan ASSESSMENT: This is a 79-year-old male with: 1. Hyperglycemia. 2. Hypernatremia. 3. Urinary tract infection=MDR proteus. 4. Diabetes type 2. 5. Hypertension. 6. Hypercholesterolemia. 7. Dysphagia. 8. Parkinson disease. 9. Ulcerative proctitis. 10. Protein-calorie malnutrition. 11. History of sacral decubitus ulcer stage IV. 12. Benign prostatic hypertrophy. 13. Gastroesophageal reflux disease. 14. Metabolic encephalopathy. 15. History of left hip fracture. TREATMENT: 1. Hyperglycemia/diabetes. The patient has been placed on a protocol using NovoLog sliding scale. The patient's blood sugars have been running in 300s. Hyperglycemia may be secondary to urinary tract infection. 2. Urinary tract infection. Urine culture =MDR proteus. ABX= meropenem. results.ID=Dr Oliva 3. Hypertension. Continue amlodipine as above. 4. Hypercholesterolemia. Continue atorvastatin as above. 5. Dysphagia. The patient is status post PEG placement. 6. Parkinson disease. Continue amantadine as above. 7. Ulcerative proctitis. 8. Protein-calorie malnutrition. 9. Sacral decubitus ulcer stage IV. 10. Benign prostatic hypertrophy. Continue tamsulosin as above. 11. Gastroesophageal reflux disease. 12. Metabolic encephalopathy. 13. History of left hip fracture. Tello Cobb MD Jun 12, 2020 16:02
[2020-06-12] MEDS ORDERED: D5 1/2NS 1000ml IV ONE (17:09)
[2020-06-12] MEDS ORDERED: Tubing IV Secondary IV ONE (17:09)
--- NOTE | 2020-06-12 19:30 | NUR ---
NURSE NOTES: Patient is in bed, awake, nonresponsive but nods yes or no to some questions. No SOB or distress. IV intact and patent. G-tube intact and running tube feeding as ordered. Adams in place and draining to gravity. HOB elevated. Bed locked and in lowest position. Bed alarm on. Call light within reach. Will continue plan of care. Addendum: 06/12/20 at 2022 by MACK WSENSON RN Nonverbal*
--- NOTE | 2020-06-12 19:45 | NUR ---
NURSE HAND-OFF: Important Events on Shift:N/A Patient Status: STABLE Diet: TFS-GLUCERNA1.5 @ 60 MLS/HR Pending Orders: N/A Pending Results/Labs:N/A Pending MD notification:N/A Latest Vital Signs: Temperature 97.7 , Pulse 95 , B/P 131 /78 , Respiratory Rate 20 , O2 SAT 98 , Room Air, O2 Flow Rate 3.0 . Vital Sign Comment: STABLE Latest Lane Fall Score: 55 Fall Risk: High Risk Safety Measures: Call light Within Reach, Bed Alarm Zone 1, Side Rails Side Rails x3, Bed position Low and Locked. Fall Precautions: Yellow Socks Yellow Gown Door Sign Patient Fall Education Report given to LUANA SWENSON RN.
--- NOTE | 2020-06-12 19:51 | NUR ---
NURSE NOTES: UNEVENTFUL DAY. PATIENT KWAME PAIN. NO RESPIRATORY DISTRESS NOTED. VSS. AFEBRILE. TURN Q2H. TOLERATING TUBE FEEDINGS AT CURRENT GOAL. BED IN LOW AND LOCKED POSITION. CALL LIGHT WITHIN REACH.
[2020-06-12 20:00] VITALS: BP 110/69
[2020-06-13] VITALS: BP 115/69
[2020-06-13] MEDS: NovoLOG Insulin Flexpen SUBQ SCH ×4 (00:16→17:58)
--- NOTE | 2020-06-13 02:28 | NUR ---
NURSE HAND-OFF: Important Events on Shift: N/A Patient Status: STABLE Diet: GLUCERNA 1.5 @ 60 MLS/HR for 20 hours Pending Orders: N/A Pending Results/Labs: CBC, BMP Pending MD notification:N/A Latest Vital Signs: Temperature 98.2 , Pulse 79 , B/P 102/58 , Respiratory Rate 19 , O2 SAT 96 , Room Air, O2 Flow Rate 3.0 . Vital Sign Comment: STABLE Latest Lane Fall Score: 55 Fall Risk: High Risk Safety Measures: Call light Within Reach, Bed Alarm Zone 1, Side Rails Side Rails x3, Bed position Low and Locked. Fall Precautions: Yellow Socks Yellow Gown Door Sign Patient Fall Education Report given to JOHNNY Flor
[2020-06-13 04:27] VITALS: BP 116/71
--- NOTE | 2020-06-13 06:11 | General Progress Note ---
Assessment/Plan Problem List: (1) Hypernatremia ICD Codes: E87.0 - Hyperosmolality and hypernatremia SNOMED: 164856761 (2) Feeding by G-tube ICD Codes: Z93.1 - Gastrostomy status SNOMED: 709749998, 168276411, 063058388 (3) Diabetes mellitus ICD Codes: E11.9 - Type 2 diabetes mellitus without complications SNOMED: 77117905 (4) History of CVA (cerebrovascular accident) ICD Codes: Z86.73 - Personal history of transient ischemic attack (TIA), and cerebral infarction without residual deficits SNOMED: 747077680 (5) Parkinson disease ICD Codes: G20 - Parkinson's disease SNOMED: 67632971 Assessment/Plan: continue Levemir 15 units bid continue Novolog sliding scale high dose every 6 hours continue to hold Metformin due to lactic acidosis on presentation Subjective ROS Limited/Unobtainable: Yes Allergies: Coded Allergies: No Known Allergies (Unverified , 08/27/19) Subjective events noted - interval notes reviewed glucose values improved Item Value Date Time Bedside Blood Glucose 189 mg/dl H 06/13/20 0016 Bedside Blood Glucose 162 mg/dl H 06/12/20 2137 Bedside Blood Glucose 172 mg/dl H 06/12/20 1809 Bedside Blood Glucose 145 mg/dl H 06/12/20 1215 Bedside Blood Glucose 197 mg/dl H 06/12/20 0848 Objective Last 24 Hour Vital Signs Date Time Temp Pulse Resp B/P (MAP) Pulse Ox O2 Delivery O2 Flow Rate FiO2 06/13/20 04:27 96.4 86 18 116/71 (86) 97 06/13/20 00:00 97.2 87 19 115/69 (84) 96 06/12/20 21:00 Room Air 06/12/20 20:00 97.5 89 19 110/69 (83) 98 06/12/20 16:00 97.7 95 20 131/78 (95) 98 06/12/20 12:00 97.4 98 20 122/79 (93) 98 06/12/20 09:00 Room Air 06/12/20 08:00 97.4 98 19 122/79 (93) 98 Intake and Output 06/12/20 06/13/20 19:00 07:00 Intake Total 740 ml 120 ml Output Total 1300 ml Balance -560 ml 120 ml Free Water 200 ml Tube Feeding 540 ml 120 ml Output Urine Total 1300 ml # Bowel Movements 2 Laboratory Tests 06/12/20 07:10: White Blood Count 7.0, Red Blood Count 3.69L, Hemoglobin 11.3L, Hematocrit 37.0L , Mean Corpuscular Volume 100H, Mean Corpuscular Hemoglobin 30.5, Mean Corpuscular Hemoglobin Concent 30.4L, Red Cell Distribution Width 15.5H, Platelet Count 564H, Mean Platelet Volume 8.4, Neutrophils (%) (Auto) 52.8, Lymphocytes (%) (Auto) 37.7, Monocytes (%) (Auto) 7.5, Eosinophils (%) (Auto) 1.1, Basophils (%) (Auto) 0.9, Sodium Level 150H, Potassium Level 4.5, Chloride Level 111H, Carbon Dioxide Level 34H, Anion Gap 5, Blood Urea Nitrogen 38H, Creatinine 1.2, Estimat Glomerular Filtration Rate > 60, Glucose Level 191H, Hemoglobin A1c 7.9H, Calcium Level 10.1, Phosphorus Level 3.2, Total Bilirubin 0.1L, Aspartate Amino Transf (AST/SGOT) 28, Alanine Aminotransferase (ALT/SGPT) 37, Alkaline Phosphatase 228H, Total Protein 8.6H, Albumin 2.4L, Globulin 6.2, Albumin/Globulin Ratio 0.4L 06/12/20 12:13: POC Whole Blood Glucose 145H Height (Feet): 5 Height (Inches): 5.00 Weight (Pounds): 123 General Appearance: no apparent distress Neck: normal alignment Cardiovascular: normal rate Respiratory/Chest: decreased breath sounds Abdomen: normal bowel sounds Objective Current Medications Medications (Trade) Dose Ordered Sig/Debi Route PRN Reason Start Time Stop Time Status Last Admin Dose Admin Acetaminophen (Tylenol) 650 mg Q6H PRN GT Mild Pain (Pain Scale 1-3) 06/06/20 16:15 07/02/20 16:14 06/10/20 20:51 Amantadine HCl (Symmetrel) 100 mg TWICE A DAY GT 06/06/20 18:00 07/02/20 08:59 06/12/20 18:06 Aspirin (ASA) 81 mg DAILY GT 06/07/20 09:00 07/17/20 08:59 06/12/20 08:46 Dextrose (Dextrose 50%) 25 ml Q30M PRN IV Hypoglycemia 06/06/20 16:15 09/02/20 09:44 Dextrose (Dextrose 50%) 25 ml Q30M PRN IV Hypoglycemia 06/11/20 17:45 09/09/20 17:44 Dextrose (Dextrose 50%) 50 ml Q30M PRN IV Hypoglycemia 06/06/20 16:15 09/02/20 09:44 Dextrose (Dextrose 50%) 50 ml Q30M PRN IV Hypoglycemia 06/11/20 17:45 09/09/20 17:44 Famotidine (Pepcid) 20 mg BID GT 06/06/20 18:00 09/01/20 17:59 06/12/20 18:06 Heparin Sodium (Porcine) (Heparin 5000 units/ml) 5,000 units EVERY 12 HOURS SUBQ 06/06/20 21:00 07/17/20 08:59 06/12/20 21:34 Insulin Aspart (NovoLOG) Q6HR SUBQ 06/11/20 18:00 09/09/20 17:59 06/13/20 05:30 Insulin Detemir (Levemir) 15 units EVERY 12 HOURS SUBQ 06/11/20 21:00 09/09/20 20:59 06/12/20 21:37 Midodrine (Pro-Amatine) 2.5 mg THREE TIMES A DAY ORAL 06/06/20 18:00 09/04/20 10:59 06/12/20 18:06 Pravastatin Sodium (Pravachol) 20 mg BEDTIME GT 06/06/20 21:00 07/02/20 20:59 06/12/20 21:34 Sennosides (Senokot) 8.6 mg DAILY GT 06/07/20 09:00 07/02/20 08:59 06/12/20 08:46 Gregory Pastrana MD Jun 13, 2020 06:11
--- NOTE | 2020-06-13 07:15 | Consultation ---
DATE OF CONSULTATION: 06/11/2020 ENDOCRINOLOGY CONSULTATION CONSULTING PHYSICIAN: Ant Chase M.D. REFERRING PHYSICIAN: Cirilo Rome M.D. REASON FOR CONSULTATION: I was asked to see this 79-year-old white female, referred by Dr. Cirilo Rome in Endocrinology consultation for evaluation of type 2 diabetes mellitus, out of control PERTINENT HISTORY :He is on Levemir 8u sc Q12hrs with sliding scale Novolog Q6hrs. FAMILY HISTORY: Unable to be determined. PERSONAL HISTORY: Unable to be determined. REVIEW OF SYSTEMS: Unable to be determined. PHYSICAL EXAMINATION: GENERAL: In no acute distress. The patient is aphasic. VITAL SIGNS: Blood pressure 110/68, pulse 94, respiratory rate 18, temperature 97.8. HEAD AND NECK: Unremarkable. No jugular venous distention. LUNGS: Clear. HEART: Distant ABDOMEN: G-tube in place. EXTREMITIES: No edema. NEUROLOGIC: Cranial nerves II through XII are grossly intact with toes downgoing to plantar stimulation. LABORATORY DATA: Glucose 152 ASSESSMENT: 1.Diabetes Mellitus type 2 controlled 2.Sepsis, resolved. PLAN: We changed from 8 units of Levemir q.a.m. to 15 units q.12h. with sliding scale of NovoLog Q6hrs. Ant Chase M.D. DR: Harvey JOB#: [id number] CC: SHELLY
--- NOTE | 2020-06-13 07:20 | NUR ---
HAND-OFF: Report given to Shaun Kamara RN.
--- NOTE | 2020-06-13 07:38 | NUR ---
NURSE NOTES: Received report from JOHNNY Welch. Patient seen in bed AAOx1, able to follow simple commands IV site patent and intact .The Resp is even and unlabored and the bilateral lung sounds are all clear on auscultation. Patient is on Gtube feeding of Glucerna1.5 @ 60ml/hr for 20hr.Adams cath was noted secured under gravity draining pale yellowish urine. The patient was noted with an old scar in the sacral area from an old pressure injury. Optifoam placed on sacrum and bilateral heels for prophylaxis. Bed low and locked, siderails x2, call light placed within reach and instructed to call nurse for assistance. Will continue to monitor.
[2020-06-13 08:00] VITALS: BP 126/80
[2020-06-13 08:04] LABS: BASOPHILS % (AUTO) 0.9 % (0.0-2.0); EOSINOPHILS % (AUTO) 0.7 % (0.0-3.0); HEMATOCRIT 38.9 % (42.0-52.0); HEMOGLOBIN 11.9 G/DL (14.2-18.0); LYMPHOCYTES % (AUTO) 38.9 % (20.0-45.0); MEAN CORPUSCULAR VOLUME 100 FL (80-99); NEUTROPHILS % (AUTO) 52.5 % (45.0-75.0); PLATELET COUNT 565 K/UL (150-450); RED BLOOD COUNT 3.89 M/UL (4.70-6.10); RED CELL DISTRIBUTION WIDTH 15.4 % (11.6-14.8); WHITE BLOOD COUNT 6.6 K/UL (4.8-10.8)
[2020-06-13 08:05] LABS: ANION GAP 5 mmol/L (5-15); BLOOD UREA NITROGEN 39 mg/dL (7-18); CALCIUM 11.2 MG/DL (8.5-10.1); CARBON DIOXIDE 35 MMOL/L (21-32); CHLORIDE 112 MMOL/L (98-107); CREATININE 1.3 MG/DL (0.55-1.30); POTASSIUM 4.6 MMOL/L (3.5-5.1); SODIUM 152 MMOL/L (136-145)
[2020-06-13] MEDS: Aspirin Baby 81mg GT SCH (08:12)
[2020-06-13] MEDS: Sennosides 8.6mg tab GT SCH (08:12)
[2020-06-13] MEDS: Amantadine 100mg cap GT SCH ×2 (08:12→17:57)
[2020-06-13] MEDS: Heparin 5000 units/ml inj SUBQ SCH ×2 (08:13→21:15)
[2020-06-13] MEDS: Levemir Flexpen SUBQ SCH ×2 (08:17→21:16)
--- NOTE | 2020-06-13 10:09 | Nephrology Progress Note ---
Assessment/Plan Problem List: (1) Hypernatremia (2) Sepsis (3) History of CVA (cerebrovascular accident) (4) Parkinson disease (5) Feeding by G-tube (6) Dehydration Assessment KELLY, resolving, serum creatinine of 1.9 now down to 1.2 Hypernatremia, dehydration, free water deficit Sepsis Diabetes mellitus [id number] GT feeding Severe protein calorie malnutrition History of CVA History of hypertension Parkinson's disease Plan June 13: Lab reviewed. Medication list reviewed. Renal parameters stable. Will watch serum calcium and serum sodium. Chemistry panel tomorrow. June 12: Labs reviewed. Stable from renal standpoint of view. June 11: Labs reviewed. Stable renal parameters. June 10: Lab reviewed. Serum potassium normalized. Will give 1 L of D5W for high serum sodium. Continue per consultants. June 09: Labs reviewed. Discussed with RN. Serum potassium elevated. Suspect hemolysis. Will repeat serum potassium. DC all potassium supplements. June 08: Serum sodium higher. Will give 1 L of D5W. Renal parameters stable. Continue to monitor electrolytes. Continue per consultants. June 07: 1 bolus of D5W. Renal parameters stable. Serum sodium slightly high. Stable from renal standpoint of view. June 06: We will again discontinue the IV ordered. Stable from renal standpoint of view. Will start midodrine for low blood pressure. June 05: DC IV fluid. Potassium supplement given. Stable from renal standpoint to view. June 04: Potassium and magnesium supplement IV given, stable from renal standpoint of view. IV fluid D5W Monitor electrolytes Monitor renal parameters Hold blood pressure medication since blood pressure low Per orders, per consultants Subjective ROS Limited/Unobtainable: No Constitutional: Reports: malaise, weakness Objective Objective Last 24 Hour Vital Signs Date Time Temp Pulse Resp B/P (MAP) Pulse Ox O2 Delivery O2 Flow Rate FiO2 06/13/20 09:00 Room Air 06/13/20 08:00 97.5 93 19 126/80 (95) 100 06/13/20 04:27 96.4 86 18 116/71 (86) 97 06/13/20 00:00 97.2 87 19 115/69 (84) 96 06/12/20 21:00 Room Air 06/12/20 20:00 97.5 89 19 110/69 (83) 98 06/12/20 16:00 97.7 95 20 131/78 (95) 98 06/12/20 12:00 97.4 98 20 122/79 (93) 98 Intake and Output 06/12/20 06/13/20 19:00 07:00 Intake Total 740 ml 400 ml Output Total 1300 ml Balance -560 ml 400 ml Free Water 200 ml 100 ml Tube Feeding 540 ml 300 ml Output Urine Total 1300 ml # Bowel Movements 2 Current Medications Medications (Trade) Dose Ordered Sig/Debi Route PRN Reason Start Time Stop Time Status Last Admin Dose Admin Acetaminophen (Tylenol) 650 mg Q6H PRN GT Mild Pain (Pain Scale 1-3) 06/06/20 16:15 07/02/20 16:14 06/10/20 20:51 Amantadine HCl (Symmetrel) 100 mg TWICE A DAY GT 06/06/20 18:00 07/02/20 08:59 06/13/20 08:12 Aspirin (ASA) 81 mg DAILY GT 06/07/20 09:00 07/17/20 08:59 06/13/20 08:12 Dextrose (Dextrose 50%) 25 ml Q30M PRN IV Hypoglycemia 06/06/20 16:15 09/02/20 09:44 Dextrose (Dextrose 50%) 25 ml Q30M PRN IV Hypoglycemia 06/11/20 17:45 09/09/20 17:44 Dextrose (Dextrose 50%) 50 ml Q30M PRN IV Hypoglycemia 06/06/20 16:15 09/02/20 09:44 Dextrose (Dextrose 50%) 50 ml Q30M PRN IV Hypoglycemia 06/11/20 17:45 09/09/20 17:44 Famotidine (Pepcid) 20 mg BID GT 06/06/20 18:00 09/01/20 17:59 06/13/20 08:12 Heparin Sodium (Porcine) (Heparin 5000 units/ml) 5,000 units EVERY 12 HOURS SUBQ 06/06/20 21:00 07/17/20 08:59 06/13/20 08:13 Insulin Aspart (NovoLOG) Q6HR SUBQ 06/11/20 18:00 09/09/20 17:59 06/13/20 05:30 Insulin Detemir (Levemir) 15 units EVERY 12 HOURS SUBQ 06/11/20 21:00 09/09/20 20:59 06/13/20 08:17 Midodrine (Pro-Amatine) 2.5 mg THREE TIMES A DAY ORAL 06/06/20 18:00 09/04/20 10:59 06/13/20 08:12 Pravastatin Sodium (Pravachol) 20 mg BEDTIME GT 06/06/20 21:00 07/02/20 20:59 06/12/20 21:34 Sennosides (Senokot) 8.6 mg DAILY GT 06/07/20 09:00 07/02/20 08:59 06/13/20 08:12 Laboratory Tests 06/12/20 12:13: POC Whole Blood Glucose 145H 06/13/20 07:15: White Blood Count 6.6, Red Blood Count 3.89L, Hemoglobin 11.9L, Hematocrit 38.9L , Mean Corpuscular Volume 100H, Mean Corpuscular Hemoglobin 30.6, Mean Corpuscular Hemoglobin Concent 30.5L, Red Cell Distribution Width 15.4H, Platelet Count 565H, Mean Platelet Volume 8.3, Neutrophils (%) (Auto) 52.5, Lymphocytes (%) (Auto) 38.9, Monocytes (%) (Auto) 7.0, Eosinophils (%) (Auto) 0.7, Basophils (%) (Auto) 0.9, Sodium Level 152H, Potassium Level 4.6, Chloride Level 112H, Carbon Dioxide Level 35H, Anion Gap 5, Blood Urea Nitrogen 39H, Creatinine 1.3, Estimat Glomerular Filtration Rate > 60, Glucose Level 173H, Calcium Level 11.2H Height (Feet): 5 Height (Inches): 5.00 Weight (Pounds): 123 General Appearance: no apparent distress, lethargic Cardiovascular: normal rate Respiratory/Chest: decreased breath sounds Abdomen: soft Objective No change Eddie Nelson MD Jun 13, 2020 10:09
--- NOTE | 2020-06-13 11:07 | Surgery Progress Note ---
Surgery Progress Note Subjective Additional Comments no acute events aaox1 comfortable appearing no n/v/f/c Gtube feeding of Glucerna1.5 @ 60ml/hr for 20hr electrolytes being replaced Objective Last 24 Hour Vital Signs Date Time Temp Pulse Resp B/P (MAP) Pulse Ox O2 Delivery O2 Flow Rate FiO2 06/13/20 09:00 Room Air 06/13/20 08:00 97.5 93 19 126/80 (95) 100 06/13/20 04:27 96.4 86 18 116/71 (86) 97 06/13/20 00:00 97.2 87 19 115/69 (84) 96 06/12/20 21:00 Room Air 06/12/20 20:00 97.5 89 19 110/69 (83) 98 06/12/20 16:00 97.7 95 20 131/78 (95) 98 06/12/20 12:00 97.4 98 20 122/79 (93) 98 I&O Intake and Output 06/12/20 06/13/20 19:00 07:00 Intake Total 740 ml 400 ml Output Total 1300 ml Balance -560 ml 400 ml Free Water 200 ml 100 ml Tube Feeding 540 ml 300 ml Output Urine Total 1300 ml # Bowel Movements 2 Dressing: saturated Cardiovascular: RSR Respiratory: decreased breath sounds Abdomen: soft, non-tender, present bowel sounds Extremities: no tenderness, no cyanosis Laboratory Tests Test 06/12/20 12:13 06/13/20 07:15 POC Whole Blood Glucose 145 MG/DL (74-106) H White Blood Count 6.6 K/UL (4.8-10.8) Red Blood Count 3.89 M/UL (4.70-6.10) L Hemoglobin 11.9 G/DL (14.2-18.0) L Hematocrit 38.9 % (42.0-52.0) L Mean Corpuscular Volume 100 FL (80-99) H Mean Corpuscular Hemoglobin 30.6 PG (27.0-31.0) Mean Corpuscular Hemoglobin Concent 30.5 G/DL (32.0-36.0) L Red Cell Distribution Width 15.4 % (11.6-14.8) H Platelet Count 565 K/UL (150-450) H Mean Platelet Volume 8.3 FL (6.5-10.1) Neutrophils (%) (Auto) 52.5 % (45.0-75.0) Lymphocytes (%) (Auto) 38.9 % (20.0-45.0) Monocytes (%) (Auto) 7.0 % (1.0-10.0) Eosinophils (%) (Auto) 0.7 % (0.0-3.0) Basophils (%) (Auto) 0.9 % (0.0-2.0) Sodium Level 152 MMOL/L (136-145) H Potassium Level 4.6 MMOL/L (3.5-5.1) Chloride Level 112 MMOL/L (98-107) H Carbon Dioxide Level 35 MMOL/L (21-32) H Anion Gap 5 mmol/L (5-15) Blood Urea Nitrogen 39 mg/dL (7-18) H Creatinine 1.3 MG/DL (0.55-1.30) Estimat Glomerular Filtration Rate > 60 mL/min (>60) Glucose Level 173 MG/DL (74-106) H Calcium Level 11.2 MG/DL (8.5-10.1) H Plan Problems: (1) Hypernatremia (2) Dehydration (3) Hip fracture, left (4) Diabetes mellitus (5) History of hypertension (6) Severe protein-calorie malnutrition Assessment & Plan: DAILY ESTIMATED NEEDS: Needs based on Sepsis, DM/ 54kg 30-40 kcals/kg 7160-6394 total kcals 1.25-2 g protein/kg 68-108 g total protein 25-35ml/kcal mL/kg 9533-2189 total fluid mLs NUTRITION DIAGNOSIS: * Swallowing difficulty R/T dysphagia, as evidenced by Pt is GT dep. (CURRENT TF: Glucerna 1.5 @ 30ml/hr x 24 hrs) ENTERAL NUTRITION RECOMMENDATIONS: Glucerna 1.5 @ 60ml/hr x 20 hrs to provide 1200ml, 1800kcal, 99g prot, 911ml free water, 160g carbs * Rec to INCREASE TF GOAL to 60ml/hr for 20 hrs * HOB over 30 degrees, increased water flushes * TF at goal meets 100% est needs. -------- ADDITIONAL RECOMMENDATIONS: * Calibrated bedscale wt for accurate CBW * Monitor lytes daily w/ TF, replete as needed * Pt may require increase in insulin regimen for improved BG W/ continuous TF infusion * Wound healing: DOMENICA BID, F/up w/ WC eval . (7) Acute encephalopathy (8) Pressure Ulcer Of Sacral Region, Unstageable Assessment & Plan: Pt presented on admission with purple and indurated area at Sacrococcygeal at previously compromised site(L)7cm x (W)3cm.Surrounding Hyperpigmentation at Sacrum. Non-Blanching erythema without fluctuance R heel. Non-Blanching erythema with delineated margins L heel (L)4.5cm x (W)5.5cm. L Heel is boggy . Tx.Plan: Apply Moisture Barrier Paste to Sacrum. Cover with Optifoam drsgs. Change every 3 days and prn. Apply Cavilon Skin Barrier to R and L trochanter. Cover each site with Optifoam drsgs. Change every 7 days and prn. Apply Cavilon Skin Barrier to each heel and malleoli. Cover each site with Optifoam drsgs. Change every 7 days and prn. Reposition at least every 2hours or as tolerated. Off-load heels with pillow. improving cont current care tube site okay (9) Feeding by G-tube (10) Abdominal distention (11) Multiple drug resistant organism (MDRO) culture positive (12) Sepsis (13) History of CVA (cerebrovascular accident) (14) Parkinson disease James Breen Jun 13, 2020 11:07
--- NOTE | 2020-06-13 11:33 | Infectious Diseases Prog Note ---
Assessment/Plan 79yo M with: Fever, SP Leukocytosis, SP KELLY, improving UTI, sp rx 06/01 UA w/ pyuria, UCx + P Mirabilis ESBL 06/01 BCx Neg 06/01 CXR: No acute process COVID rapid test neg H/o ESBL Proteus in UCx in Oct 2019 Renal US w/ BL cysts PMH: DM2 Parkinson's dementia Bedridden G-tube Plan: Cont to monitor off abx 06/10 SP audra #8 06/02 SP erta #1 06/01 SP cefepime, vanco, flagyl x1 in ED Monitor CBC/BMP Trend leukocytosis, KELLY Trend hemodynamics, temp curve discharge planing D/w RN Thank you for this consult. [facility] will continue to follow. Subjective Allergies: Coded Allergies: No Known Allergies (Unverified , 08/27/19) afebrile no leuckocytosis off abx Objective Last 24 Hour Vital Signs Date Time Temp Pulse Resp B/P (MAP) Pulse Ox O2 Delivery O2 Flow Rate FiO2 06/13/20 09:00 Room Air 06/13/20 08:00 97.5 93 19 126/80 (95) 100 06/13/20 04:27 96.4 86 18 116/71 (86) 97 06/13/20 00:00 97.2 87 19 115/69 (84) 96 06/12/20 21:00 Room Air 06/12/20 20:00 97.5 89 19 110/69 (83) 98 06/12/20 16:00 97.7 95 20 131/78 (95) 98 06/12/20 12:00 97.4 98 20 122/79 (93) 98 Height (Feet): 5 Height (Inches): 5.00 Weight (Pounds): 123 GENERAL: thin-appearing, male, in no apparent distress. CHEST: Lungs are clear to auscultation bilaterally without wheezes or rales. CARDIOVASCULAR: Slightly tachycardic, regular rhythm. S1, S2 are normal without murmurs, rubs, or gallops. ABDOMEN: Soft, nontender, and nondistended. Positive bowel sounds. No evidence of hepatosplenomegaly. EXTREMITIES: Negative for clubbing, cyanosis, or edema. Laboratory Tests Test 06/12/20 12:13 06/13/20 07:15 POC Whole Blood Glucose 145 MG/DL (74-106) H White Blood Count 6.6 K/UL (4.8-10.8) Red Blood Count 3.89 M/UL (4.70-6.10) L Hemoglobin 11.9 G/DL (14.2-18.0) L Hematocrit 38.9 % (42.0-52.0) L Mean Corpuscular Volume 100 FL (80-99) H Mean Corpuscular Hemoglobin 30.6 PG (27.0-31.0) Mean Corpuscular Hemoglobin Concent 30.5 G/DL (32.0-36.0) L Red Cell Distribution Width 15.4 % (11.6-14.8) H Platelet Count 565 K/UL (150-450) H Mean Platelet Volume 8.3 FL (6.5-10.1) Neutrophils (%) (Auto) 52.5 % (45.0-75.0) Lymphocytes (%) (Auto) 38.9 % (20.0-45.0) Monocytes (%) (Auto) 7.0 % (1.0-10.0) Eosinophils (%) (Auto) 0.7 % (0.0-3.0) Basophils (%) (Auto) 0.9 % (0.0-2.0) Sodium Level 152 MMOL/L (136-145) H Potassium Level 4.6 MMOL/L (3.5-5.1) Chloride Level 112 MMOL/L (98-107) H Carbon Dioxide Level 35 MMOL/L (21-32) H Anion Gap 5 mmol/L (5-15) Blood Urea Nitrogen 39 mg/dL (7-18) H Creatinine 1.3 MG/DL (0.55-1.30) Estimat Glomerular Filtration Rate > 60 mL/min (>60) Glucose Level 173 MG/DL (74-106) H Calcium Level 11.2 MG/DL (8.5-10.1) H Current Medications Medications (Trade) Dose Ordered Sig/Debi Route PRN Reason Start Time Stop Time Status Last Admin Dose Admin Acetaminophen (Tylenol) 650 mg Q6H PRN GT Mild Pain (Pain Scale 1-3) 06/06/20 16:15 07/02/20 16:14 06/10/20 20:51 Amantadine HCl (Symmetrel) 100 mg TWICE A DAY GT 06/06/20 18:00 07/02/20 08:59 06/13/20 08:12 Aspirin (ASA) 81 mg DAILY GT 06/07/20 09:00 07/17/20 08:59 06/13/20 08:12 Dextrose (Dextrose 50%) 25 ml Q30M PRN IV Hypoglycemia 06/06/20 16:15 09/02/20 09:44 Dextrose (Dextrose 50%) 25 ml Q30M PRN IV Hypoglycemia 06/11/20 17:45 09/09/20 17:44 Dextrose (Dextrose 50%) 50 ml Q30M PRN IV Hypoglycemia 06/06/20 16:15 09/02/20 09:44 Dextrose (Dextrose 50%) 50 ml Q30M PRN IV Hypoglycemia 06/11/20 17:45 09/09/20 17:44 Famotidine (Pepcid) 20 mg BID GT 06/06/20 18:00 09/01/20 17:59 06/13/20 08:12 Heparin Sodium (Porcine) (Heparin 5000 units/ml) 5,000 units EVERY 12 HOURS SUBQ 06/06/20 21:00 07/17/20 08:59 06/13/20 08:13 Insulin Aspart (NovoLOG) Q6HR SUBQ 06/11/20 18:00 09/09/20 17:59 06/13/20 05:30 Insulin Detemir (Levemir) 15 units EVERY 12 HOURS SUBQ 06/11/20 21:00 09/09/20 20:59 06/13/20 08:17 Midodrine (Pro-Amatine) 2.5 mg TIDPRN PRN ORAL blood pressure below 100 sbp 06/13/20 10:15 09/11/20 10:14 Pravastatin Sodium (Pravachol) 20 mg BEDTIME GT 06/06/20 21:00 07/02/20 20:59 06/12/20 21:34 Sennosides (Senokot) 8.6 mg DAILY GT 06/07/20 09:00 07/02/20 08:59 06/13/20 08:12 Blaire Greenwood M.D. Jun 13, 2020 11:33
[2020-06-13 12:00] VITALS: BP 114/70
--- NOTE | 2020-06-13 12:23 | Pulmonology Progress Note ---
Subjective ROS Limited/Unobtainable: No Constitutional: Reports: anorexia Allergies: Coded Allergies: No Known Allergies (Unverified , 08/27/19) All Systems: reviewed and negative except above Objective Last 24 Hour Vital Signs Date Time Temp Pulse Resp B/P (MAP) Pulse Ox O2 Delivery O2 Flow Rate FiO2 06/13/20 09:00 Room Air 06/13/20 08:00 97.5 93 19 126/80 (95) 100 06/13/20 04:27 96.4 86 18 116/71 (86) 97 06/13/20 00:00 97.2 87 19 115/69 (84) 96 06/12/20 21:00 Room Air 06/12/20 20:00 97.5 89 19 110/69 (83) 98 06/12/20 16:00 97.7 95 20 131/78 (95) 98 Intake and Output 06/12/20 06/13/20 19:00 07:00 Intake Total 740 ml 400 ml Output Total 1300 ml Balance -560 ml 400 ml Free Water 200 ml 100 ml Tube Feeding 540 ml 300 ml Output Urine Total 1300 ml # Bowel Movements 2 General Appearance: cachetic HEENT: normocephalic, atraumatic Respiratory: chest wall non-tender, normal breath sounds Cardiovascular: normal peripheral pulses, normal rate Genitourinary: normal external genitalia Extremities: no clubbing Skin: no lesions Neurologic: social media developer II-XII grossly normal Lymphatic: no neck adenopathy Laboratory Tests 06/13/20 07:15: White Blood Count 6.6, Red Blood Count 3.89L, Hemoglobin 11.9L, Hematocrit 38.9L , Mean Corpuscular Volume 100H, Mean Corpuscular Hemoglobin 30.6, Mean Corpuscular Hemoglobin Concent 30.5L, Red Cell Distribution Width 15.4H, Platelet Count 565H, Mean Platelet Volume 8.3, Neutrophils (%) (Auto) 52.5, Lymphocytes (%) (Auto) 38.9, Monocytes (%) (Auto) 7.0, Eosinophils (%) (Auto) 0.7, Basophils (%) (Auto) 0.9, Sodium Level 152H, Potassium Level 4.6, Chloride Level 112H, Carbon Dioxide Level 35H, Anion Gap 5, Blood Urea Nitrogen 39H, Creatinine 1.3, Estimat Glomerular Filtration Rate > 60, Glucose Level 173H, Calcium Level 11.2H 06/13/20 11:36: POC Whole Blood Glucose 87 06/13/20 11:38: POC Whole Blood Glucose 97 Current Medications Medications (Trade) Dose Ordered Sig/Debi Route PRN Reason Start Time Stop Time Status Last Admin Dose Admin Acetaminophen (Tylenol) 650 mg Q6H PRN GT Mild Pain (Pain Scale 1-3) 06/06/20 16:15 07/02/20 16:14 06/10/20 20:51 Amantadine HCl (Symmetrel) 100 mg TWICE A DAY GT 06/06/20 18:00 07/02/20 08:59 06/13/20 08:12 Aspirin (ASA) 81 mg DAILY GT 06/07/20 09:00 07/17/20 08:59 06/13/20 08:12 Dextrose (Dextrose 50%) 25 ml Q30M PRN IV Hypoglycemia 06/06/20 16:15 09/02/20 09:44 Dextrose (Dextrose 50%) 25 ml Q30M PRN IV Hypoglycemia 06/11/20 17:45 09/09/20 17:44 Dextrose (Dextrose 50%) 50 ml Q30M PRN IV Hypoglycemia 06/06/20 16:15 09/02/20 09:44 Dextrose (Dextrose 50%) 50 ml Q30M PRN IV Hypoglycemia 06/11/20 17:45 09/09/20 17:44 Famotidine (Pepcid) 20 mg BID GT 06/06/20 18:00 09/01/20 17:59 06/13/20 08:12 Heparin Sodium (Porcine) (Heparin 5000 units/ml) 5,000 units EVERY 12 HOURS SUBQ 06/06/20 21:00 07/17/20 08:59 06/13/20 08:13 Insulin Aspart (NovoLOG) Q6HR SUBQ 06/11/20 18:00 09/09/20 17:59 06/13/20 05:30 Insulin Detemir (Levemir) 15 units EVERY 12 HOURS SUBQ 06/11/20 21:00 09/09/20 20:59 06/13/20 08:17 Midodrine (Pro-Amatine) 2.5 mg TIDPRN PRN ORAL blood pressure below 100 sbp 06/13/20 10:15 09/11/20 10:14 Pravastatin Sodium (Pravachol) 20 mg BEDTIME GT 06/06/20 21:00 07/02/20 20:59 06/12/20 21:34 Sennosides (Senokot) 8.6 mg DAILY GT 06/07/20 09:00 07/02/20 08:59 06/13/20 08:12 Assessment/Plan Problems: (1) Sepsis (2) Multiple drug resistant organism (MDRO) culture positive (3) Diabetes mellitus (4) Feeding by G-tube (5) Severe protein-calorie malnutrition (6) Parkinson disease (7) History of hypertension (8) History of CVA (cerebrovascular accident) Assessment/Plan electrolytes fluctuating Improving ronquillo culture, Urine has proteus,,MDR COVID Negative iv abx iv fluids renal studies renal function improving urine electrolytes. sliding scale Latanya Mckeon MD Jun 13, 2020 12:22
--- NOTE | 2020-06-13 12:54 | NUR ---
RD ASSESSMENT & RECOMMENDATIONS SEE CARE ACTIVITY FOR COMPLETE ASSESSMENT DAILY ESTIMATED NEEDS: Needs based on Sepsis, DM/ 54kg 30-40 kcals/kg 4436-4169 total kcals 1.25-2 g protein/kg 68-108 g total protein 25-35ml/kcal mL/kg 2062-5895 total fluid mLs NUTRITION DIAGNOSIS: * Swallowing difficulty R/T dysphagia, as evidenced by Pt is GT dep. CURRENT TF:Glucerna 1.5 @ 60ml/hr x20 hrs ENTERAL NUTRITION RECOMMENDATIONS: Glucerna 1.5 @ 60ml/hr x 20 hrs to provide 1200ml, 1800kcal, 99g prot, 911ml free water, 160g carbs * Maintain at current rate-> HOLD FOR 4 HRS / DAY. * HOB over 30 degrees, increased water flushes * TF at goal meets 100% est needs. ADDITIONAL RECOMMENDATIONS: * Calibrated bedscale wt for accurate CBW * Monitor lytes daily w/ TF, replete as needed * Monitor BGs, need for adjust insulin: Levemir increased * Wound healing: add DOMENICA BID * Increase water flushes: elev Na and BUN -> Water flushes w/ TF-> rec 150ml q4 hrs w/out IVF * Watch K w/ change of TF -> now wnl
[2020-06-13 16:00] VITALS: BP 129/82
--- NOTE | 2020-06-13 17:09 | NUR ---
CASE MANAGEMENT:REVIEW SI;MDR PROTEUS UTI. SEPSIS. 98.0 93 20 129/82 96% ON RA PLT 565 NA 152 CO2 35 BUN 39 CA 11.2 IS;INSULIN LEVEMIR SUBQ Q12 INSULIN NOVOLOG SUBQ Q6 GT QD HEPARIN SUBQ Q12 PEPCID GT BID MED SURG STATUS DCP;FROM [facility]
--- NOTE | 2020-06-13 19:18 | NUR ---
HAND-OFF: Report given to JOHNNY Welch.
--- NOTE | 2020-06-13 19:32 | Internal Med Progress Note ---
Subjective Date of Service: Jun 13, 2020 Physician Name JordynTello Attending Physician Cirilo Rome MD Current Medications Medications (Trade) Dose Ordered Sig/Debi Route PRN Reason Start Time Stop Time Status Last Admin Dose Admin Acetaminophen (Tylenol) 650 mg Q6H PRN GT Mild Pain (Pain Scale 1-3) 06/06/20 16:15 07/02/20 16:14 06/10/20 20:51 Amantadine HCl (Symmetrel) 100 mg TWICE A DAY GT 06/06/20 18:00 07/02/20 08:59 06/13/20 17:57 Aspirin (ASA) 81 mg DAILY GT 06/07/20 09:00 07/17/20 08:59 06/13/20 08:12 Dextrose (Dextrose 50%) 25 ml Q30M PRN IV Hypoglycemia 06/06/20 16:15 09/02/20 09:44 Dextrose (Dextrose 50%) 25 ml Q30M PRN IV Hypoglycemia 06/11/20 17:45 09/09/20 17:44 Dextrose (Dextrose 50%) 50 ml Q30M PRN IV Hypoglycemia 06/06/20 16:15 09/02/20 09:44 Dextrose (Dextrose 50%) 50 ml Q30M PRN IV Hypoglycemia 06/11/20 17:45 09/09/20 17:44 Famotidine (Pepcid) 20 mg BID GT 06/06/20 18:00 09/01/20 17:59 06/13/20 17:57 Heparin Sodium (Porcine) (Heparin 5000 units/ml) 5,000 units EVERY 12 HOURS SUBQ 06/06/20 21:00 07/17/20 08:59 06/13/20 08:13 Insulin Aspart (NovoLOG) Q6HR SUBQ 06/11/20 18:00 09/09/20 17:59 06/13/20 17:58 Insulin Detemir (Levemir) 15 units EVERY 12 HOURS SUBQ 06/11/20 21:00 09/09/20 20:59 06/13/20 08:17 Midodrine (Pro-Amatine) 2.5 mg TIDPRN PRN ORAL blood pressure below 100 sbp 06/13/20 10:15 09/11/20 10:14 Pravastatin Sodium (Pravachol) 20 mg BEDTIME GT 06/06/20 21:00 07/02/20 20:59 06/12/20 21:34 Sennosides (Senokot) 8.6 mg DAILY GT 06/07/20 09:00 07/02/20 08:59 06/13/20 08:12 Allergies: Coded Allergies: No Known Allergies (Unverified , 08/27/19) ROS Limited/Unobtainable: Yes Subjective 79 YO M admitted with hyperglycemia and hypernatremia. Now UTI. Cover for Int Dusty-Dr Rome Objective Last Vital Signs Date Time Temp Pulse Resp B/P (MAP) Pulse Ox O2 Delivery O2 Flow Rate FiO2 06/13/20 16:00 98.0 79 20 129/82 (98) 98 06/13/20 09:00 Room Air Laboratory Tests Test 06/13/20 07:15 06/13/20 11:36 06/13/20 11:38 06/13/20 17:49 White Blood Count 6.6 K/UL (4.8-10.8) Red Blood Count 3.89 M/UL (4.70-6.10) L Hemoglobin 11.9 G/DL (14.2-18.0) L Hematocrit 38.9 % (42.0-52.0) L Mean Corpuscular Volume 100 FL (80-99) H Mean Corpuscular Hemoglobin 30.6 PG (27.0-31.0) Mean Corpuscular Hemoglobin Concent 30.5 G/DL (32.0-36.0) L Red Cell Distribution Width 15.4 % (11.6-14.8) H Platelet Count 565 K/UL (150-450) H Mean Platelet Volume 8.3 FL (6.5-10.1) Neutrophils (%) (Auto) 52.5 % (45.0-75.0) Lymphocytes (%) (Auto) 38.9 % (20.0-45.0) Monocytes (%) (Auto) 7.0 % (1.0-10.0) Eosinophils (%) (Auto) 0.7 % (0.0-3.0) Basophils (%) (Auto) 0.9 % (0.0-2.0) Sodium Level 152 MMOL/L (136-145) H Potassium Level 4.6 MMOL/L (3.5-5.1) Chloride Level 112 MMOL/L (98-107) H Carbon Dioxide Level 35 MMOL/L (21-32) H Anion Gap 5 mmol/L (5-15) Blood Urea Nitrogen 39 mg/dL (7-18) H Creatinine 1.3 MG/DL (0.55-1.30) Estimat Glomerular Filtration Rate > 60 mL/min (>60) Glucose Level 173 MG/DL (74-106) H Calcium Level 11.2 MG/DL (8.5-10.1) H POC Whole Blood Glucose 87 MG/DL (74-106) 97 MG/DL (74-106) 182 MG/DL (74-106) H Intake and Output 06/12/20 06/13/20 19:00 07:00 Intake Total 740 ml 400 ml Output Total 1300 ml Balance -560 ml 400 ml Free Water 200 ml 100 ml Tube Feeding 540 ml 300 ml Output Urine Total 1300 ml # Bowel Movements 2 Objective PHYSICAL EXAMINATION: GENERAL: The patient is a well-developed, well-nourished, thin-appearing, male, in no apparent distress. HEENT: Eyes, pupils equal and responsive to light and accommodation. Extraocular movements are intact. NECK: Supple without lymphadenopathy. CHEST: Lungs are clear to auscultation bilaterally without wheezes or rales. CARDIOVASCULAR: Slightly tachycardic, regular rhythm. S1, S2 are normal without murmurs, rubs, or gallops. ABDOMEN: Soft, nontender, and nondistended. Positive bowel sounds. No evidence of hepatosplenomegaly. Currently, no rebound or guarding noted. EXTREMITIES: Negative for clubbing, cyanosis, or edema. RECTAL: Not performed. GENITAL: Not performed. NEUROLOGIC: Cranial nerves II through XII are grossly intact without focal deficits. Assessment/Plan Assessment/Plan ASSESSMENT: This is a 79-year-old male with: 1. Hyperglycemia. 2. Hypernatremia. 3. Urinary tract infection=MDR proteus. 4. Diabetes type 2. 5. Hypertension. 6. Hypercholesterolemia. 7. Dysphagia. 8. Parkinson disease. 9. Ulcerative proctitis. 10. Protein-calorie malnutrition. 11. History of sacral decubitus ulcer stage IV. 12. Benign prostatic hypertrophy. 13. Gastroesophageal reflux disease. 14. Metabolic encephalopathy. 15. History of left hip fracture. TREATMENT: 1. Hyperglycemia/diabetes. The patient has been placed on a protocol using NovoLog sliding scale. The patient's blood sugars have been running in 300s. Hyperglycemia may be secondary to urinary tract infection. 2. Urinary tract infection. Urine culture =MDR proteus. ABX= meropenem. results.ID=Dr Oliva 3. Hypertension. Continue amlodipine as above. 4. Hypercholesterolemia. Continue atorvastatin as above. 5. Dysphagia. The patient is status post PEG placement. 6. Parkinson disease. Continue amantadine as above. 7. Ulcerative proctitis. 8. Protein-calorie malnutrition. 9. Sacral decubitus ulcer stage IV. 10. Benign prostatic hypertrophy. Continue tamsulosin as above. 11. Gastroesophageal reflux disease. 12. Metabolic encephalopathy. 13. History of left hip fracture. Tello Cobb MD Jun 13, 2020 19:32
--- NOTE | 2020-06-13 19:49 | NUR ---
NURSE NOTES: Received patient asleep, no SOB, tolerating his g-tube feeding well.
[2020-06-13 20:00] VITALS: BP 162/72
[2020-06-14 00:17] VITALS: BP 114/58
[2020-06-14 04:00] VITALS: BP 104/67
[2020-06-14] MEDS: NovoLOG Insulin Flexpen SUBQ SCH ×4 (05:22→17:42)
[2020-06-14 06:09] LABS: BASOPHILS % (AUTO) 1.2 % (0.0-2.0); EOSINOPHILS % (AUTO) 1.3 % (0.0-3.0); HEMATOCRIT 41.9 % (42.0-52.0); HEMOGLOBIN 12.7 G/DL (14.2-18.0); LYMPHOCYTES % (AUTO) 40.4 % (20.0-45.0); MEAN CORPUSCULAR VOLUME 101 FL (80-99); MONOCYTES % (AUTO) 8.1 % (1.0-10.0); NEUTROPHILS % (AUTO) 49.1 % (45.0-75.0); PLATELET COUNT 523 K/UL (150-450); RED BLOOD COUNT 4.17 M/UL (4.70-6.10); RED CELL DISTRIBUTION WIDTH 15.4 % (11.6-14.8); WHITE BLOOD COUNT 7.2 K/UL (4.8-10.8)
--- NOTE | 2020-06-14 06:19 | General Progress Note ---
Assessment/Plan Problem List: (1) Hypernatremia ICD Codes: E87.0 - Hyperosmolality and hypernatremia SNOMED: 704959784 (2) Feeding by G-tube ICD Codes: Z93.1 - Gastrostomy status SNOMED: 938019098, 106493066, 060326762 (3) Diabetes mellitus ICD Codes: E11.9 - Type 2 diabetes mellitus without complications SNOMED: 56460133 (4) History of CVA (cerebrovascular accident) ICD Codes: Z86.73 - Personal history of transient ischemic attack (TIA), and cerebral infarction without residual deficits SNOMED: 585129372 (5) Parkinson disease ICD Codes: G20 - Parkinson's disease SNOMED: 95879366 Assessment/Plan: continue Levemir 15 units bid continue Novolog sliding scale high dose every 6 hours continue to hold Metformin due to lactic acidosis on presentation Subjective ROS Limited/Unobtainable: Yes Allergies: Coded Allergies: No Known Allergies (Unverified , 08/27/19) Subjective events noted - interval notes reviewed glucose values are stable TF is tolerated Item Value Date Time Bedside Blood Glucose 126 mg/dl H 06/14/20 0522 Bedside Blood Glucose 187 mg/dl H 06/13/20 2116 Bedside Blood Glucose 187 mg/dl H 06/13/20 1800 Bedside Blood Glucose 97 mg/dl 06/13/20 1200 Bedside Blood Glucose 109 mg/dl 06/13/20 0817 Bedside Blood Glucose 189 mg/dl H 06/13/20 0016 Objective Last 24 Hour Vital Signs Date Time Temp Pulse Resp B/P (MAP) Pulse Ox O2 Delivery O2 Flow Rate FiO2 06/14/20 04:00 96.0 90 18 104/67 (79) 96 06/14/20 00:17 96.4 100 20 114/58 (76) 92 06/13/20 21:00 Room Air 06/13/20 20:00 96.5 98 20 162/72 (102) 95 06/13/20 16:00 98.0 79 20 129/82 (98) 98 06/13/20 12:00 97.7 81 20 114/70 (85) 98 06/13/20 09:00 Room Air 06/13/20 08:00 97.5 93 19 126/80 (95) 100 Intake and Output 06/13/20 06/14/20 19:00 07:00 Intake Total 610 ml 800 ml Output Total 800 ml Balance -190 ml 800 ml Free Water 70 ml 200 ml Tube Feeding 540 ml 600 ml Output Urine Total 800 ml # Bowel Movements 1 Laboratory Tests 06/13/20 07:15: White Blood Count 6.6, Red Blood Count 3.89L, Hemoglobin 11.9L, Hematocrit 38.9L , Mean Corpuscular Volume 100H, Mean Corpuscular Hemoglobin 30.6, Mean Corpuscular Hemoglobin Concent 30.5L, Red Cell Distribution Width 15.4H, Platelet Count 565H, Mean Platelet Volume 8.3, Neutrophils (%) (Auto) 52.5, Lymphocytes (%) (Auto) 38.9, Monocytes (%) (Auto) 7.0, Eosinophils (%) (Auto) 0.7, Basophils (%) (Auto) 0.9, Sodium Level 152H, Potassium Level 4.6, Chloride Level 112H, Carbon Dioxide Level 35H, Anion Gap 5, Blood Urea Nitrogen 39H, Creatinine 1.3, Estimat Glomerular Filtration Rate > 60, Glucose Level 173H, Calcium Level 11.2H 06/13/20 11:36: POC Whole Blood Glucose 87 06/13/20 11:38: POC Whole Blood Glucose 97 06/13/20 17:49: POC Whole Blood Glucose 182H 06/14/20 00:12: POC Whole Blood Glucose 123H 06/14/20 04:04: POC Whole Blood Glucose 126H 06/14/20 05:40: White Blood Count [Pending], Red Blood Count [Pending], Hemoglobin [Pending], Hematocrit [Pending], Mean Corpuscular Volume [Pending], Mean Corpuscular Hemoglobin [Pending], Mean Corpuscular Hemoglobin Concent [Pending], Red Cell Distribution Width [Pending], Platelet Count [Pending], Mean Platelet Volume [ Pending], Neutrophils (%) (Auto) [Pending], Lymphocytes (%) (Auto) [Pending], Monocytes (%) (Auto) [Pending], Eosinophils (%) (Auto) [Pending], Basophils (%) (Auto) [Pending], Sodium Level [Pending], Potassium Level [Pending], Chloride Level [Pending], Carbon Dioxide Level [Pending], Blood Urea Nitrogen [Pending], Creatinine [Pending], Estimat Glomerular Filtration Rate [Pending], Glucose Level [Pending], Uric Acid [Pending], Calcium Level [Pending], Phosphorus Level [Pending], Magnesium Level [Pending], Total Bilirubin [Pending], Aspartate Amino Transf (AST/SGOT) [Pending], Alanine Aminotransferase (ALT/SGPT) [Pending] , Alkaline Phosphatase [Pending], Total Protein [Pending], Albumin [Pending], Globulin [Pending] Height (Feet): 5 Height (Inches): 5.00 Weight (Pounds): 123 General Appearance: no apparent distress Neck: normal alignment Cardiovascular: normal rate Respiratory/Chest: lungs clear Abdomen: normal bowel sounds, other - PEG Objective Current Medications Medications (Trade) Dose Ordered Sig/Debi Route PRN Reason Start Time Stop Time Status Last Admin Dose Admin Acetaminophen (Tylenol) 650 mg Q6H PRN GT Mild Pain (Pain Scale 1-3) 06/06/20 16:15 07/02/20 16:14 06/10/20 20:51 Amantadine HCl (Symmetrel) 100 mg TWICE A DAY GT 06/06/20 18:00 07/02/20 08:59 06/13/20 17:57 Aspirin (ASA) 81 mg DAILY GT 06/07/20 09:00 07/17/20 08:59 06/13/20 08:12 Dextrose (Dextrose 50%) 25 ml Q30M PRN IV Hypoglycemia 06/06/20 16:15 09/02/20 09:44 Dextrose (Dextrose 50%) 25 ml Q30M PRN IV Hypoglycemia 06/11/20 17:45 09/09/20 17:44 Dextrose (Dextrose 50%) 50 ml Q30M PRN IV Hypoglycemia 06/06/20 16:15 09/02/20 09:44 Dextrose (Dextrose 50%) 50 ml Q30M PRN IV Hypoglycemia 06/11/20 17:45 09/09/20 17:44 Famotidine (Pepcid) 20 mg BID GT 06/06/20 18:00 09/01/20 17:59 06/13/20 17:57 Heparin Sodium (Porcine) (Heparin 5000 units/ml) 5,000 units EVERY 12 HOURS SUBQ 06/06/20 21:00 07/17/20 08:59 06/13/20 21:15 Insulin Aspart (NovoLOG) Q6HR SUBQ 06/11/20 18:00 09/09/20 17:59 06/13/20 17:58 Insulin Detemir (Levemir) 15 units EVERY 12 HOURS SUBQ 06/11/20 21:00 09/09/20 20:59 06/13/20 21:16 Midodrine (Pro-Amatine) 2.5 mg TIDPRN PRN ORAL blood pressure below 100 sbp 06/13/20 10:15 09/11/20 10:14 Pravastatin Sodium (Pravachol) 20 mg BEDTIME GT 06/06/20 21:00 07/02/20 20:59 06/13/20 21:14 Sennosides (Senokot) 8.6 mg DAILY GT 06/07/20 09:00 07/02/20 08:59 06/13/20 08:12 Gregory Pastrana MD Jun 14, 2020 06:19
[2020-06-14 06:42] LABS: ALANINE AMINOTRANSFERASE 34 U/L (12-78); ALBUMIN 2.7 G/DL (3.4-5.0); ALBUMIN/GLOBULIN RATIO 0.4 (1.0-2.7); ALKALINE PHOSPHATASE 225 U/L (46-116); ANION GAP 7 mmol/L (5-15); ASPARTATE AMINO TRANSFERASE 29 U/L (15-37); BILIRUBIN,TOTAL 0.1 MG/DL (0.2-1.0); BLOOD UREA NITROGEN 40 mg/dL (7-18); CALCIUM 10.7 MG/DL (8.5-10.1); CARBON DIOXIDE 32 MMOL/L (21-32); CHLORIDE 114 MMOL/L (98-107); CREATININE 1.2 MG/DL (0.55-1.30); PHOSPHORUS 4.9 MG/DL (2.5-4.9); POTASSIUM 4.9 MMOL/L (3.5-5.1); SODIUM 153 MMOL/L (136-145)
--- NOTE | 2020-06-14 07:05 | NUR ---
HAND-OFF: Report given to Shaun Kamara RN.
--- NOTE | 2020-06-14 07:23 | NUR ---
NURSE NOTES: Received report from JOHNNY Welch. Patient seen in bed AAOx1, able to follow simple commands IV site patent and intact .The Resp is even and unlabored and the bilateral lung sounds are all clear on auscultation. Patient is on Gtube feeding of Glucerna1.5 @ 60ml/hr for 20hr currently on hold and will continue at 1100. Adams cath patent and secure draining via gravity, yellowish urine. The patient was noted with an old scar in the sacral area from an old pressure injury. Optifoam placed on sacrum and bilateral heels for prophylaxis. Bed low and locked, siderails x2, call light placed within reach and instructed to call nurse for assistance. Will continue to monitor.
[2020-06-14 08:00] VITALS: BP 109/72
[2020-06-14] MEDS: Levemir Flexpen SUBQ SCH ×2 (08:26→21:16)
[2020-06-14] MEDS: Aspirin Baby 81mg GT SCH (08:28)
[2020-06-14] MEDS: Sennosides 8.6mg tab GT SCH (08:28)
[2020-06-14] MEDS: Amantadine 100mg cap GT SCH ×2 (08:28→17:41)
[2020-06-14] MEDS: Heparin 5000 units/ml inj SUBQ SCH ×2 (08:28→21:15)
--- NOTE | 2020-06-14 11:50 | Infectious Diseases Prog Note ---
Assessment/Plan 79yo M with: Fever, SP Leukocytosis, SP KELLY, improving UTI, sp rx 06/01 UA w/ pyuria, UCx + P Mirabilis ESBL 06/01 BCx Neg 06/01 CXR: No acute process COVID rapid test neg H/o ESBL Proteus in UCx in Oct 2019 Renal US w/ BL cysts PMH: DM2 Parkinson's dementia Bedridden G-tube Plan: Cont to monitor off abx 06/10 SP audra #8 06/02 SP erta #1 06/01 SP cefepime, vanco, flagyl x1 in ED Monitor CBC/BMP Trend leukocytosis, KELLY Trend hemodynamics, temp curve discharge planing D/w RN Thank you for this consult. [facility] will continue to follow. Subjective Allergies: Coded Allergies: No Known Allergies (Unverified , 08/27/19) afebrile no leuckocytosis off abx no new events Objective Last 24 Hour Vital Signs Date Time Temp Pulse Resp B/P (MAP) Pulse Ox O2 Delivery O2 Flow Rate FiO2 06/14/20 09:00 Room Air 06/14/20 08:00 98.2 100 18 109/72 (84) 97 06/14/20 04:00 96.0 90 18 104/67 (79) 96 06/14/20 00:17 96.4 100 20 114/58 (76) 92 06/13/20 21:00 Room Air 06/13/20 20:00 96.5 98 20 162/72 (102) 95 06/13/20 16:00 98.0 79 20 129/82 (98) 98 06/13/20 12:00 97.7 81 20 114/70 (85) 98 Height (Feet): 5 Height (Inches): 5.00 Weight (Pounds): 123 GENERAL: no apparent distress. CHEST: Lungs are clear to auscultation bilaterally without wheezes or rales. CARDIOVASCULAR: regular rhythm. S1, S2 are normal without murmurs, rubs, or gallops. ABDOMEN: Soft, nontender, and nondistended. Positive bowel sounds. No evidence of hepatosplenomegaly. EXTREMITIES: Negative for clubbing, cyanosis, or edema. Laboratory Tests Test 06/13/20 17:49 06/14/20 00:12 06/14/20 04:04 06/14/20 05:40 POC Whole Blood Glucose 182 MG/DL (74-106) H 123 MG/DL (74-106) H 126 MG/DL (74-106) H White Blood Count 7.2 K/UL (4.8-10.8) Red Blood Count 4.17 M/UL (4.70-6.10) L Hemoglobin 12.7 G/DL (14.2-18.0) L Hematocrit 41.9 % (42.0-52.0) L Mean Corpuscular Volume 101 FL (80-99) H Mean Corpuscular Hemoglobin 30.5 PG (27.0-31.0) Mean Corpuscular Hemoglobin Concent 30.4 G/DL (32.0-36.0) L Red Cell Distribution Width 15.4 % (11.6-14.8) H Platelet Count 523 K/UL (150-450) H Mean Platelet Volume 8.5 FL (6.5-10.1) Neutrophils (%) (Auto) 49.1 % (45.0-75.0) Lymphocytes (%) (Auto) 40.4 % (20.0-45.0) Monocytes (%) (Auto) 8.1 % (1.0-10.0) Eosinophils (%) (Auto) 1.3 % (0.0-3.0) Basophils (%) (Auto) 1.2 % (0.0-2.0) Sodium Level 153 MMOL/L (136-145) H Potassium Level 4.9 MMOL/L (3.5-5.1) Chloride Level 114 MMOL/L (98-107) H Carbon Dioxide Level 32 MMOL/L (21-32) Anion Gap 7 mmol/L (5-15) Blood Urea Nitrogen 40 mg/dL (7-18) H Creatinine 1.2 MG/DL (0.55-1.30) Estimat Glomerular Filtration Rate > 60 mL/min (>60) Glucose Level 129 MG/DL (74-106) H Uric Acid 5.6 MG/DL (2.6-7.2) Calcium Level 10.7 MG/DL (8.5-10.1) H Phosphorus Level 4.9 MG/DL (2.5-4.9) Magnesium Level 2.6 MG/DL (1.8-2.4) H Total Bilirubin 0.1 MG/DL (0.2-1.0) L Aspartate Amino Transf (AST/SGOT) 29 U/L (15-37) Alanine Aminotransferase (ALT/SGPT) 34 U/L (12-78) Alkaline Phosphatase 225 U/L (46-116) H Total Protein 9.5 G/DL (6.4-8.2) H Albumin 2.7 G/DL (3.4-5.0) L Globulin 6.8 g/dL Albumin/Globulin Ratio 0.4 (1.0-2.7) L Test 06/14/20 08:24 POC Whole Blood Glucose 181 MG/DL (74-106) H Current Medications Medications (Trade) Dose Ordered Sig/Debi Route PRN Reason Start Time Stop Time Status Last Admin Dose Admin Acetaminophen (Tylenol) 650 mg Q6H PRN GT Mild Pain (Pain Scale 1-3) 06/06/20 16:15 07/02/20 16:14 06/10/20 20:51 Amantadine HCl (Symmetrel) 100 mg TWICE A DAY GT 06/06/20 18:00 07/02/20 08:59 06/14/20 08:28 Aspirin (ASA) 81 mg DAILY GT 06/07/20 09:00 07/17/20 08:59 06/14/20 08:28 Dextrose (Dextrose 50%) 25 ml Q30M PRN IV Hypoglycemia 06/06/20 16:15 09/02/20 09:44 Dextrose (Dextrose 50%) 25 ml Q30M PRN IV Hypoglycemia 06/11/20 17:45 09/09/20 17:44 Dextrose (Dextrose 50%) 50 ml Q30M PRN IV Hypoglycemia 06/06/20 16:15 09/02/20 09:44 Dextrose (Dextrose 50%) 50 ml Q30M PRN IV Hypoglycemia 06/11/20 17:45 09/09/20 17:44 Famotidine (Pepcid) 20 mg BID GT 06/06/20 18:00 09/01/20 17:59 06/14/20 08:28 Heparin Sodium (Porcine) (Heparin 5000 units/ml) 5,000 units EVERY 12 HOURS SUBQ 06/06/20 21:00 07/17/20 08:59 06/14/20 08:28 Insulin Aspart (NovoLOG) Q6HR SUBQ 06/11/20 18:00 09/09/20 17:59 06/13/20 17:58 Insulin Detemir (Levemir) 15 units EVERY 12 HOURS SUBQ 06/11/20 21:00 09/09/20 20:59 06/14/20 08:26 Midodrine (Pro-Amatine) 2.5 mg TIDPRN PRN ORAL blood pressure below 100 sbp 06/13/20 10:15 09/11/20 10:14 Pamidronate Disodium 60 mg/ Sodium Chloride 550 ml @ 137.5 mls/ hr ONCE ONCE IVPB 06/14/20 13:00 06/14/20 16:59 Pravastatin Sodium (Pravachol) 20 mg BEDTIME GT 06/06/20 21:00 07/02/20 20:59 06/13/20 21:14 Sennosides (Senokot) 8.6 mg DAILY GT 06/07/20 09:00 07/02/20 08:59 06/14/20 08:28 Blaire Greenwood M.D. Jun 14, 2020 11:50
[2020-06-14 12:00] VITALS: BP 106/68
--- NOTE | 2020-06-14 12:05 | Pulmonology Progress Note ---
Subjective ROS Limited/Unobtainable: Yes Constitutional: Reports: anorexia Allergies: Coded Allergies: No Known Allergies (Unverified , 08/27/19) All Systems: reviewed and negative except above Objective Last 24 Hour Vital Signs Date Time Temp Pulse Resp B/P (MAP) Pulse Ox O2 Delivery O2 Flow Rate FiO2 06/14/20 09:00 Room Air 06/14/20 08:00 98.2 100 18 109/72 (84) 97 06/14/20 04:00 96.0 90 18 104/67 (79) 96 06/14/20 00:17 96.4 100 20 114/58 (76) 92 06/13/20 21:00 Room Air 06/13/20 20:00 96.5 98 20 162/72 (102) 95 06/13/20 16:00 98.0 79 20 129/82 (98) 98 Intake and Output 06/13/20 06/14/20 19:00 07:00 Intake Total 610 ml 920 ml Output Total 800 ml 400 ml Balance -190 ml 520 ml Free Water 70 ml 200 ml Tube Feeding 540 ml 720 ml Output Urine Total 800 ml 400 ml # Bowel Movements 1 General Appearance: cachetic HEENT: normocephalic, atraumatic Respiratory: chest wall non-tender, normal breath sounds Cardiovascular: normal peripheral pulses, normal rate Genitourinary: normal external genitalia Extremities: no clubbing Skin: no lesions Neurologic: 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 II-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 grossly normal Lymphatic: no neck adenopathy Laboratory Tests 06/13/20 17:49: POC Whole Blood Glucose 182H 06/14/20 00:12: POC Whole Blood Glucose 123H 06/14/20 04:04: POC Whole Blood Glucose 126H 06/14/20 05:40: White Blood Count 7.2, Red Blood Count 4.17L, Hemoglobin 12.7L, Hematocrit 41.9L , Mean Corpuscular Volume 101H, Mean Corpuscular Hemoglobin 30.5, Mean Corpuscular Hemoglobin Concent 30.4L, Red Cell Distribution Width 15.4H, Platelet Count 523H, Mean Platelet Volume 8.5, Neutrophils (%) (Auto) 49.1, Lymphocytes (%) (Auto) 40.4, Monocytes (%) (Auto) 8.1, Eosinophils (%) (Auto) 1.3, Basophils (%) (Auto) 1.2, Sodium Level 153H, Potassium Level 4.9, Chloride Level 114H, Carbon Dioxide Level 32, Anion Gap 7, Blood Urea Nitrogen 40H, Creatinine 1.2, Estimat Glomerular Filtration Rate > 60, Glucose Level 129H, Uric Acid 5.6, Calcium Level 10.7H, Phosphorus Level 4.9, Magnesium Level 2.6H, Total Bilirubin 0.1L, Aspartate Amino Transf (AST/SGOT) 29, Alanine Aminotransferase (ALT/SGPT) 34, Alkaline Phosphatase 225H, Total Protein 9.5H, Albumin 2.7L, Globulin 6.8, Albumin/Globulin Ratio 0.4L 06/14/20 08:24: POC Whole Blood Glucose 181H Current Medications Medications (Trade) Dose Ordered Sig/Debi Route PRN Reason Start Time Stop Time Status Last Admin Dose Admin Acetaminophen (Tylenol) 650 mg Q6H PRN GT Mild Pain (Pain Scale 1-3) 06/06/20 16:15 07/02/20 16:14 06/10/20 20:51 Amantadine HCl (Symmetrel) 100 mg TWICE A DAY GT 06/06/20 18:00 07/02/20 08:59 06/14/20 08:28 Aspirin (ASA) 81 mg DAILY GT 06/07/20 09:00 07/17/20 08:59 06/14/20 08:28 Dextrose (Dextrose 50%) 25 ml Q30M PRN IV Hypoglycemia 06/06/20 16:15 09/02/20 09:44 Dextrose (Dextrose 50%) 25 ml Q30M PRN IV Hypoglycemia 06/11/20 17:45 09/09/20 17:44 Dextrose (Dextrose 50%) 50 ml Q30M PRN IV Hypoglycemia 06/06/20 16:15 09/02/20 09:44 Dextrose (Dextrose 50%) 50 ml Q30M PRN IV Hypoglycemia 06/11/20 17:45 09/09/20 17:44 Famotidine (Pepcid) 20 mg BID GT 06/06/20 18:00 09/01/20 17:59 06/14/20 08:28 Heparin Sodium (Porcine) (Heparin 5000 units/ml) 5,000 units EVERY 12 HOURS SUBQ 06/06/20 21:00 07/17/20 08:59 06/14/20 08:28 Insulin Aspart (NovoLOG) Q6HR SUBQ 06/11/20 18:00 09/09/20 17:59 06/13/20 17:58 Insulin Detemir (Levemir) 15 units EVERY 12 HOURS SUBQ 06/11/20 21:00 09/09/20 20:59 06/14/20 08:26 Midodrine (Pro-Amatine) 2.5 mg TIDPRN PRN ORAL blood pressure below 100 sbp 06/13/20 10:15 09/11/20 10:14 Pamidronate Disodium 60 mg/ Sodium Chloride 550 ml @ 137.5 mls/ hr ONCE ONCE IVPB 06/14/20 13:00 06/14/20 16:59 Pravastatin Sodium (Pravachol) 20 mg BEDTIME GT 06/06/20 21:00 07/02/20 20:59 06/13/20 21:14 Sennosides (Senokot) 8.6 mg DAILY GT 06/07/20 09:00 07/02/20 08:59 06/14/20 08:28 Assessment/Plan Problems: (1) Sepsis (2) Multiple drug resistant organism (MDRO) culture positive (3) Diabetes mellitus (4) Feeding by G-tube (5) Severe protein-calorie malnutrition (6) Parkinson disease (7) History of hypertension (8) History of CVA (cerebrovascular accident) Assessment/Plan Na is still high electrolytes fluctuating Improving ronquillo culture, Urine has proteus,,MDR COVID Negative iv abx iv fluids renal studies renal function improving urine electrolytes. sliding scale Latanya Mckeon MD Jun 14, 2020 12:05
[2020-06-14] MEDS ORDERED: Pamidronate Disodium Inj 60 MG in Sodium Chloride 550 ML IVPB ONE (13:00)
--- NOTE | 2020-06-14 15:41 | Nephrology Progress Note ---
Assessment/Plan Problem List: (1) Hypernatremia (2) Sepsis (3) History of CVA (cerebrovascular accident) (4) Parkinson disease (5) Feeding by G-tube (6) Dehydration Assessment KELLY, resolving, serum creatinine of 1.9 now down to 1.2 Hypernatremia, dehydration, free water deficit Sepsis Diabetes mellitus [id number] GT feeding Severe protein calorie malnutrition History of CVA History of hypertension Parkinson's disease Plan June 14: Lab reviewed. Serum calcium high corrected for low serum albumin. 60 mg pamidronate ID given. Continue to monitor renal parameters calcium and phosphorus. June 13: Lab reviewed. Medication list reviewed. Renal parameters stable. Will watch serum calcium and serum sodium. Chemistry panel tomorrow. June 12: Labs reviewed. Stable from renal standpoint of view. June 11: Labs reviewed. Stable renal parameters. June 10: Lab reviewed. Serum potassium normalized. Will give 1 L of D5W for high serum sodium. Continue per consultants. June 09: Labs reviewed. Discussed with RN. Serum potassium elevated. Suspect hemolysis. Will repeat serum potassium. DC all potassium supplements. June 08: Serum sodium higher. Will give 1 L of D5W. Renal parameters stable. Continue to monitor electrolytes. Continue per consultants. June 07: 1 bolus of D5W. Renal parameters stable. Serum sodium slightly high. Stable from renal standpoint of view. June 06: We will again discontinue the IV ordered. Stable from renal standpoint of view. Will start midodrine for low blood pressure. June 05: DC IV fluid. Potassium supplement given. Stable from renal standpoint to view. June 04: Potassium and magnesium supplement IV given, stable from renal standpoint of view. IV fluid D5W Monitor electrolytes Monitor renal parameters Hold blood pressure medication since blood pressure low Per orders, per consultants Subjective ROS Limited/Unobtainable: No Constitutional: Reports: malaise Objective Objective Last 24 Hour Vital Signs Date Time Temp Pulse Resp B/P (MAP) Pulse Ox O2 Delivery O2 Flow Rate FiO2 06/14/20 12:00 98.0 98 18 106/68 (81) 97 06/14/20 09:00 Room Air 06/14/20 08:00 98.2 100 18 109/72 (84) 97 06/14/20 04:00 96.0 90 18 104/67 (79) 96 9/1/20 00:17 96.4 100 20 114/58 (76) 92 06/13/20 21:00 Room Air 06/13/20 20:00 96.5 98 20 162/72 (102) 95 06/13/20 16:00 98.0 79 20 129/82 (98) 98 Intake and Output 06/13/20 06/14/20 19:00 07:00 Intake Total 610 ml 920 ml Output Total 800 ml 400 ml Balance -190 ml 520 ml Free Water 70 ml 200 ml Tube Feeding 540 ml 720 ml Output Urine Total 800 ml 400 ml # Bowel Movements 1 Laboratory Tests 06/13/20 17:49: POC Whole Blood Glucose 182H 06/14/20 00:12: POC Whole Blood Glucose 123H 06/14/20 04:04: POC Whole Blood Glucose 126H 06/14/20 05:40: White Blood Count 7.2, Red Blood Count 4.17L, Hemoglobin 12.7L, Hematocrit 41.9L , Mean Corpuscular Volume 101H, Mean Corpuscular Hemoglobin 30.5, Mean Corpuscular Hemoglobin Concent 30.4L, Red Cell Distribution Width 15.4H, Platelet Count 523H, Mean Platelet Volume 8.5, Neutrophils (%) (Auto) 49.1, Lymphocytes (%) (Auto) 40.4, Monocytes (%) (Auto) 8.1, Eosinophils (%) (Auto) 1.3, Basophils (%) (Auto) 1.2, Sodium Level 153H, Potassium Level 4.9, Chloride Level 114H, Carbon Dioxide Level 32, Anion Gap 7, Blood Urea Nitrogen 40H, Creatinine 1.2, Estimat Glomerular Filtration Rate > 60, Glucose Level 129H, Uric Acid 5.6, Calcium Level 10.7H, Phosphorus Level 4.9, Magnesium Level 2.6H, Total Bilirubin 0.1L, Aspartate Amino Transf (AST/SGOT) 29, Alanine Aminotransferase (ALT/SGPT) 34, Alkaline Phosphatase 225H, Total Protein 9.5H, Albumin 2.7L, Globulin 6.8, Albumin/Globulin Ratio 0.4L 06/14/20 08:24: POC Whole Blood Glucose 181H Height (Feet): 5 Height (Inches): 5.00 Weight (Pounds): 123 General Appearance: no apparent distress Cardiovascular: tachycardia Respiratory/Chest: decreased breath sounds Abdomen: distended Objective No change Fouladian,Eddie MD Jun 14, 2020 15:41
--- NOTE | 2020-06-14 15:51 | Surgery Progress Note ---
Surgery Progress Note Subjective Symptoms: improved, pain absent, tolerating diet, passing flatus, BM Objective Last 24 Hour Vital Signs Date Time Temp Pulse Resp B/P (MAP) Pulse Ox O2 Delivery O2 Flow Rate FiO2 06/14/20 12:00 98.0 98 18 106/68 (81) 97 06/14/20 09:00 Room Air 06/14/20 08:00 98.2 100 18 109/72 (84) 97 06/14/20 04:00 96.0 90 18 104/67 (79) 96 06/14/20 00:17 96.4 100 20 114/58 (76) 92 06/13/20 21:00 Room Air 06/13/20 20:00 96.5 98 20 162/72 (102) 95 06/13/20 16:00 98.0 79 20 129/82 (98) 98 I&O Intake and Output 06/13/20 06/14/20 19:00 07:00 Intake Total 610 ml 920 ml Output Total 800 ml 400 ml Balance -190 ml 520 ml Free Water 70 ml 200 ml Tube Feeding 540 ml 720 ml Output Urine Total 800 ml 400 ml # Bowel Movements 1 Dressing: saturated Wound: clean Cardiovascular: RSR Respiratory: clear Abdomen: soft, non-tender, present bowel sounds Extremities: no edema, no tenderness, no cyanosis Laboratory Tests Test 06/13/20 17:49 06/14/20 00:12 06/14/20 04:04 06/14/20 05:40 POC Whole Blood Glucose 182 MG/DL (74-106) H 123 MG/DL (74-106) H 126 MG/DL (74-106) H White Blood Count 7.2 K/UL (4.8-10.8) Red Blood Count 4.17 M/UL (4.70-6.10) L Hemoglobin 12.7 G/DL (14.2-18.0) L Hematocrit 41.9 % (42.0-52.0) L Mean Corpuscular Volume 101 FL (80-99) H Mean Corpuscular Hemoglobin 30.5 PG (27.0-31.0) Mean Corpuscular Hemoglobin Concent 30.4 G/DL (32.0-36.0) L Red Cell Distribution Width 15.4 % (11.6-14.8) H Platelet Count 523 K/UL (150-450) H Mean Platelet Volume 8.5 FL (6.5-10.1) Neutrophils (%) (Auto) 49.1 % (45.0-75.0) Lymphocytes (%) (Auto) 40.4 % (20.0-45.0) Monocytes (%) (Auto) 8.1 % (1.0-10.0) Eosinophils (%) (Auto) 1.3 % (0.0-3.0) Basophils (%) (Auto) 1.2 % (0.0-2.0) Sodium Level 153 MMOL/L (136-145) H Potassium Level 4.9 MMOL/L (3.5-5.1) Chloride Level 114 MMOL/L (98-107) H Carbon Dioxide Level 32 MMOL/L (21-32) Anion Gap 7 mmol/L (5-15) Blood Urea Nitrogen 40 mg/dL (7-18) H Creatinine 1.2 MG/DL (0.55-1.30) Estimat Glomerular Filtration Rate > 60 mL/min (>60) Glucose Level 129 MG/DL (74-106) H Uric Acid 5.6 MG/DL (2.6-7.2) Calcium Level 10.7 MG/DL (8.5-10.1) H Phosphorus Level 4.9 MG/DL (2.5-4.9) Magnesium Level 2.6 MG/DL (1.8-2.4) H Total Bilirubin 0.1 MG/DL (0.2-1.0) L Aspartate Amino Transf (AST/SGOT) 29 U/L (15-37) Alanine Aminotransferase (ALT/SGPT) 34 U/L (12-78) Alkaline Phosphatase 225 U/L (46-116) H Total Protein 9.5 G/DL (6.4-8.2) H Albumin 2.7 G/DL (3.4-5.0) L Globulin 6.8 g/dL Albumin/Globulin Ratio 0.4 (1.0-2.7) L Test 06/14/20 08:24 POC Whole Blood Glucose 181 MG/DL (74-106) H Plan Problems: (1) Hypernatremia (2) Dehydration (3) Hip fracture, left (4) Diabetes mellitus (5) History of hypertension (6) Severe protein-calorie malnutrition Assessment & Plan: DAILY ESTIMATED NEEDS: Needs based on Sepsis, DM/ 54kg 30-40 kcals/kg 1808-5543 total kcals 1.25-2 g protein/kg 68-108 g total protein 25-35ml/kcal mL/kg 9292-5215 total fluid mLs NUTRITION DIAGNOSIS: * Swallowing difficulty R/T dysphagia, as evidenced by Pt is GT dep. (CURRENT TF: Glucerna 1.5 @ 30ml/hr x 24 hrs) ENTERAL NUTRITION RECOMMENDATIONS: Glucerna 1.5 @ 60ml/hr x 20 hrs to provide 1200ml, 1800kcal, 99g prot, 911ml free water, 160g carbs * Rec to INCREASE TF GOAL to 60ml/hr for 20 hrs * HOB over 30 degrees, increased water flushes * TF at goal meets 100% est needs. -------- ADDITIONAL RECOMMENDATIONS: * Calibrated bedscale wt for accurate CBW * Monitor lytes daily w/ TF, replete as needed * Pt may require increase in insulin regimen for improved BG W/ continuous TF infusion * Wound healing: DOMENICA BID, F/up w/ WC eval . (7) Acute encephalopathy (8) Pressure Ulcer Of Sacral Region, Unstageable Assessment & Plan: Pt presented on admission with purple and indurated area at Sacrococcygeal at previously compromised site(L)7cm x (W)3cm.Surrounding Hyperpigmentation at Sacrum. Non-Blanching erythema without fluctuance R heel. Non-Blanching erythema with delineated margins L heel (L)4.5cm x (W)5.5cm. L Heel is boggy . Tx.Plan: Apply Moisture Barrier Paste to Sacrum. Cover with Optifoam drsgs. Change every 3 days and prn. Apply Cavilon Skin Barrier to R and L trochanter. Cover each site with Optifoam drsgs. Change every 7 days and prn. Apply Cavilon Skin Barrier to each heel and malleoli. Cover each site with Optifoam drsgs. Change every 7 days and prn. Reposition at least every 2hours or as tolerated. Off-load heels with pillow. improving cont current care tube site okay (9) Feeding by G-tube (10) Abdominal distention (11) Multiple drug resistant organism (MDRO) culture positive (12) Sepsis (13) History of CVA (cerebrovascular accident) (14) Parkinson disease James Breen Jun 14, 2020 15:51
[2020-06-14 16:00] VITALS: BP 122/74
--- NOTE | 2020-06-14 18:28 | Internal Med Progress Note ---
Subjective Date of Service: Jun 14, 2020 Physician Name CobbTello Attending Physician Cirilo Rome MD Current Medications Medications (Trade) Dose Ordered Sig/Debi Route PRN Reason Start Time Stop Time Status Last Admin Dose Admin Acetaminophen (Tylenol) 650 mg Q6H PRN GT Mild Pain (Pain Scale 1-3) 06/06/20 16:15 07/02/20 16:14 06/10/20 20:51 Amantadine HCl (Symmetrel) 100 mg TWICE A DAY GT 06/06/20 18:00 07/02/20 08:59 06/14/20 17:41 Aspirin (ASA) 81 mg DAILY GT 06/07/20 09:00 07/17/20 08:59 06/14/20 08:28 Dextrose (Dextrose 50%) 25 ml Q30M PRN IV Hypoglycemia 06/06/20 16:15 09/02/20 09:44 Dextrose (Dextrose 50%) 25 ml Q30M PRN IV Hypoglycemia 06/11/20 17:45 09/09/20 17:44 Dextrose (Dextrose 50%) 50 ml Q30M PRN IV Hypoglycemia 06/06/20 16:15 09/02/20 09:44 Dextrose (Dextrose 50%) 50 ml Q30M PRN IV Hypoglycemia 06/11/20 17:45 09/09/20 17:44 Famotidine (Pepcid) 20 mg BID GT 06/06/20 18:00 09/01/20 17:59 06/14/20 17:41 Heparin Sodium (Porcine) (Heparin 5000 units/ml) 5,000 units EVERY 12 HOURS SUBQ 06/06/20 21:00 07/17/20 08:59 06/14/20 08:28 Insulin Aspart (NovoLOG) Q6HR SUBQ 06/11/20 18:00 09/09/20 17:59 06/14/20 17:42 Insulin Detemir (Levemir) 15 units EVERY 12 HOURS SUBQ 06/11/20 21:00 09/09/20 20:59 06/14/20 08:26 Midodrine (Pro-Amatine) 2.5 mg TIDPRN PRN ORAL blood pressure below 100 sbp 06/13/20 10:15 09/11/20 10:14 Pravastatin Sodium (Pravachol) 20 mg BEDTIME GT 06/06/20 21:00 07/02/20 20:59 06/13/20 21:14 Sennosides (Senokot) 8.6 mg DAILY GT 06/07/20 09:00 07/02/20 08:59 06/14/20 08:28 Allergies: Coded Allergies: No Known Allergies (Unverified , 08/27/19) ROS Limited/Unobtainable: Yes Subjective 79 YO M admitted with hyperglycemia and hypernatremia. Now UTI. Cover for Int Dusty-Dr Rome Objective Last Vital Signs Date Time Temp Pulse Resp B/P (MAP) Pulse Ox O2 Delivery O2 Flow Rate FiO2 06/14/20 16:00 98.2 98 18 122/74 (90) 96 06/14/20 09:00 Room Air Laboratory Tests Test 06/14/20 00:12 06/14/20 04:04 06/14/20 05:40 06/14/20 08:24 POC Whole Blood Glucose 123 MG/DL (74-106) H 126 MG/DL (74-106) H 181 MG/DL (74-106) H White Blood Count 7.2 K/UL (4.8-10.8) Red Blood Count 4.17 M/UL (4.70-6.10) L Hemoglobin 12.7 G/DL (14.2-18.0) L Hematocrit 41.9 % (42.0-52.0) L Mean Corpuscular Volume 101 FL (80-99) H Mean Corpuscular Hemoglobin 30.5 PG (27.0-31.0) Mean Corpuscular Hemoglobin Concent 30.4 G/DL (32.0-36.0) L Red Cell Distribution Width 15.4 % (11.6-14.8) H Platelet Count 523 K/UL (150-450) H Mean Platelet Volume 8.5 FL (6.5-10.1) Neutrophils (%) (Auto) 49.1 % (45.0-75.0) Lymphocytes (%) (Auto) 40.4 % (20.0-45.0) Monocytes (%) (Auto) 8.1 % (1.0-10.0) Eosinophils (%) (Auto) 1.3 % (0.0-3.0) Basophils (%) (Auto) 1.2 % (0.0-2.0) Sodium Level 153 MMOL/L (136-145) H Potassium Level 4.9 MMOL/L (3.5-5.1) Chloride Level 114 MMOL/L (98-107) H Carbon Dioxide Level 32 MMOL/L (21-32) Anion Gap 7 mmol/L (5-15) Blood Urea Nitrogen 40 mg/dL (7-18) H Creatinine 1.2 MG/DL (0.55-1.30) Estimat Glomerular Filtration Rate > 60 mL/min (>60) Glucose Level 129 MG/DL (74-106) H Uric Acid 5.6 MG/DL (2.6-7.2) Calcium Level 10.7 MG/DL (8.5-10.1) H Phosphorus Level 4.9 MG/DL (2.5-4.9) Magnesium Level 2.6 MG/DL (1.8-2.4) H Total Bilirubin 0.1 MG/DL (0.2-1.0) L Aspartate Amino Transf (AST/SGOT) 29 U/L (15-37) Alanine Aminotransferase (ALT/SGPT) 34 U/L (12-78) Alkaline Phosphatase 225 U/L (46-116) H Total Protein 9.5 G/DL (6.4-8.2) H Albumin 2.7 G/DL (3.4-5.0) L Globulin 6.8 g/dL Albumin/Globulin Ratio 0.4 (1.0-2.7) L Intake and Output 06/13/20 06/14/20 19:00 07:00 Intake Total 610 ml 920 ml Output Total 800 ml 400 ml Balance -190 ml 520 ml Free Water 70 ml 200 ml Tube Feeding 540 ml 720 ml Output Urine Total 800 ml 400 ml # Bowel Movements 1 Objective PHYSICAL EXAMINATION: GENERAL: The patient is a well-developed, well-nourished, thin-appearing, male, in no apparent distress. HEENT: Eyes, pupils equal and responsive to light and accommodation. Extraocular movements are intact. NECK: Supple without lymphadenopathy. CHEST: Lungs are clear to auscultation bilaterally without wheezes or rales. CARDIOVASCULAR: Slightly tachycardic, regular rhythm. S1, S2 are normal without murmurs, rubs, or gallops. ABDOMEN: Soft, nontender, and nondistended. Positive bowel sounds. No evidence of hepatosplenomegaly. Currently, no rebound or guarding noted. EXTREMITIES: Negative for clubbing, cyanosis, or edema. RECTAL: Not performed. GENITAL: Not performed. NEUROLOGIC: Cranial nerves II through XII are grossly intact without focal deficits. Assessment/Plan Assessment/Plan ASSESSMENT: This is a 79-year-old male with: 1. Hyperglycemia. 2. Hypernatremia. 3. Urinary tract infection=MDR proteus. 4. Diabetes type 2. 5. Hypertension. 6. Hypercholesterolemia. 7. Dysphagia. 8. Parkinson disease. 9. Ulcerative proctitis. 10. Protein-calorie malnutrition. 11. History of sacral decubitus ulcer stage IV. 12. Benign prostatic hypertrophy. 13. Gastroesophageal reflux disease. 14. Metabolic encephalopathy. 15. History of left hip fracture. TREATMENT: 1. Hyperglycemia/diabetes. The patient has been placed on a protocol using NovoLog sliding scale. The patient's blood sugars have been running in 300s. Hyperglycemia may be secondary to urinary tract infection. 2. Urinary tract infection. Urine culture =MDR proteus. ABX= meropenem. results.ID=Dr Oliva 3. Hypertension. Continue amlodipine as above. 4. Hypercholesterolemia. Continue atorvastatin as above. 5. Dysphagia. The patient is status post PEG placement. 6. Parkinson disease. Continue amantadine as above. 7. Ulcerative proctitis. 8. Protein-calorie malnutrition. 9. Sacral decubitus ulcer stage IV. 10. Benign prostatic hypertrophy. Continue tamsulosin as above. 11. Gastroesophageal reflux disease. 12. Metabolic encephalopathy. 13. History of left hip fracture. Tello Cobb MD Jun 14, 2020 18:27
--- NOTE | 2020-06-14 19:30 | NUR ---
NURSE NOTES: RECEIVED PATIENT FROM JOHNNY LAZO. PATIENT IS AWAKE, AAOX1, ON ROOM AIR, NO ACUTE DISTRESS NOTED. VSS. G-TUBE FEEDING IN PLACE, NO RESIDUALS, FLUSHING WELL. RUNNNING GLUCERNA 1.5 AT 60CC/HR. ASPIRATION PRECAUTION IMPLEMENTED, HOB>30. PATIENT IS TOLERATING FEEDING WELL. CHRISTINE CATH IN PLACE, DRAINING WELL, YELLOW URINE NOTED. CHRISTINE ANCHOR PRESENT. PIV ON LEFT FA 24G INTACT AND PATENT. WOUND DRESSINGS INTACT AND DRY. BED IS LOCKED AND LOW, BED ALARMS ACTIVE, SIDE RAILS UPX2, AND CALL LIGHT IS WITHIN REACH. WILL CONTINUE TO MONITOR.
--- NOTE | 2020-06-14 19:37 | NUR ---
HAND-OFF: Report given to JOHNNY Antunez.
[2020-06-14 20:00] VITALS: BP 111/72
[2020-06-15] VITALS: BP 113/72
[2020-06-15] MEDS: NovoLOG Insulin Flexpen SUBQ SCH ×4 (00:45→19:31)
[2020-06-15 04:00] VITALS: BP 108/64
[2020-06-15 06:11] LABS: EOSINOPHILS % (AUTO) 1.4 % (0.0-3.0); HEMATOCRIT 42.3 % (42.0-52.0); HEMOGLOBIN 12.7 G/DL (14.2-18.0); LYMPHOCYTES % (AUTO) 32.5 % (20.0-45.0); MEAN CORPUSCULAR VOLUME 101 FL (80-99); MONOCYTES % (AUTO) 8.7 % (1.0-10.0); NEUTROPHILS % (AUTO) 56.4 % (45.0-75.0); PLATELET COUNT 526 K/UL (150-450); RED BLOOD COUNT 4.18 M/UL (4.70-6.10); RED CELL DISTRIBUTION WIDTH 15.4 % (11.6-14.8); WHITE BLOOD COUNT 7.7 K/UL (4.8-10.8)
[2020-06-15 06:33] LABS: ALANINE AMINOTRANSFERASE 41 U/L (12-78); ALBUMIN 2.6 G/DL (3.4-5.0); ALBUMIN/GLOBULIN RATIO 0.4 (1.0-2.7); ALKALINE PHOSPHATASE 214 U/L (46-116); ANION GAP 6 mmol/L (5-15); ASPARTATE AMINO TRANSFERASE 33 U/L (15-37); BILIRUBIN,TOTAL 0.2 MG/DL (0.2-1.0); BLOOD UREA NITROGEN 49 mg/dL (7-18); CALCIUM 9.8 MG/DL (8.5-10.1); CARBON DIOXIDE 35 MMOL/L (21-32); CHLORIDE 119 MMOL/L (98-107); CREATININE 1.4 MG/DL (0.55-1.30); PHOSPHORUS 2.9 MG/DL (2.5-4.9); SODIUM 160 MMOL/L (136-145)
--- NOTE | 2020-06-15 06:50 | General Progress Note ---
Assessment/Plan Problem List: (1) Hypernatremia ICD Codes: E87.0 - Hyperosmolality and hypernatremia SNOMED: 914667105 (2) Feeding by G-tube ICD Codes: Z93.1 - Gastrostomy status SNOMED: 882304004, 209812364, 122351596 (3) Diabetes mellitus ICD Codes: E11.9 - Type 2 diabetes mellitus without complications SNOMED: 58859531 (4) History of CVA (cerebrovascular accident) ICD Codes: Z86.73 - Personal history of transient ischemic attack (TIA), and cerebral infarction without residual deficits SNOMED: 543031240 (5) Parkinson disease ICD Codes: G20 - Parkinson's disease SNOMED: 24701285 Assessment/Plan: continue Levemir 15 units bid continue Novolog sliding scale high dose every 6 hours continue to hold Metformin due to lactic acidosis on presentation Subjective ROS Limited/Unobtainable: Yes Allergies: Coded Allergies: No Known Allergies (Unverified , 08/27/19) Subjective events noted - interval notes reviewed glucose values are mostly stable Item Value Date Time Bedside Blood Glucose 221 mg/dl H 06/15/20 0604 Bedside Blood Glucose 235 mg/dl H 06/15/20 0045 Bedside Blood Glucose 175 mg/dl H 06/14/20 2116 Bedside Blood Glucose 181 mg/dl H 06/14/20 1800 Bedside Blood Glucose 127 mg/dl H 06/14/20 1200 Bedside Blood Glucose 187 mg/dl H 06/14/20 0826 Bedside Blood Glucose 126 mg/dl H 06/14/20 0522 Objective Last 24 Hour Vital Signs Date Time Temp Pulse Resp B/P (MAP) Pulse Ox O2 Delivery O2 Flow Rate FiO2 06/15/20 04:00 97.5 107 20 108/64 (79) 95 06/15/20 00:00 96.6 108 22 113/72 (86) 97 06/14/20 21:00 Room Air 06/14/20 20:00 97.7 106 20 111/72 (85) 95 06/14/20 16:00 98.2 98 18 122/74 (90) 96 06/14/20 12:00 98.0 98 18 106/68 (81) 97 06/14/20 09:00 Room Air 06/14/20 08:00 98.2 100 18 109/72 (84) 97 Intake and Output 9/1/20 9/2/20 19:00 07:00 Intake Total 160 ml 800 ml Output Total 600 ml Balance -440 ml 800 ml Free Water 100 ml 200 ml Tube Feeding 60 ml 600 ml Output Urine Total 600 ml # Voids 2 Laboratory Tests 06/14/20 08:24: POC Whole Blood Glucose 181H 06/15/20 00:41: POC Whole Blood Glucose 235H 06/15/20 05:40: White Blood Count 7.7, Red Blood Count 4.18L, Hemoglobin 12.7L, Hematocrit 42.3 , Mean Corpuscular Volume 101H, Mean Corpuscular Hemoglobin 30.4, Mean Corpuscular Hemoglobin Concent 30.0L, Red Cell Distribution Width 15.4H, Platelet Count 526H, Mean Platelet Volume 8.6, Neutrophils (%) (Auto) 56.4, Lymphocytes (%) (Auto) 32.5, Monocytes (%) (Auto) 8.7, Eosinophils (%) (Auto) 1.4, Basophils (%) (Auto) 1.0, Sodium Level 160H, Potassium Level 5.0, Chloride Level 119H, Carbon Dioxide Level 35H, Anion Gap 6, Blood Urea Nitrogen 49H, Creatinine 1.4H, Estimat Glomerular Filtration Rate 59.4, Glucose Level 243#H, Uric Acid 5.6, Calcium Level 9.8, Phosphorus Level 2.9, Magnesium Level 2.8H, Total Bilirubin 0.2, Aspartate Amino Transf (AST/SGOT) 33, Alanine Aminotransferase (ALT/SGPT) 41, Alkaline Phosphatase 214H, Total Protein 8.9H, Albumin 2.6L, Globulin 6.3, Albumin/Globulin Ratio 0.4L 06/15/20 05:41: POC Whole Blood Glucose 221H Height (Feet): 5 Height (Inches): 5.00 Weight (Pounds): 123 General Appearance: no apparent distress Neck: normal alignment Cardiovascular: normal rate Respiratory/Chest: decreased breath sounds Abdomen: other - PEG Objective Current Medications Medications (Trade) Dose Ordered Sig/Debi Route PRN Reason Start Time Stop Time Status Last Admin Dose Admin Acetaminophen (Tylenol) 650 mg Q6H PRN GT Mild Pain (Pain Scale 1-3) 06/06/20 16:15 07/02/20 16:14 06/10/20 20:51 Amantadine HCl (Symmetrel) 100 mg TWICE A DAY GT 06/06/20 18:00 07/02/20 08:59 06/14/20 17:41 Aspirin (ASA) 81 mg DAILY GT 06/07/20 09:00 07/17/20 08:59 06/14/20 08:28 Dextrose (Dextrose 50%) 25 ml Q30M PRN IV Hypoglycemia 06/06/20 16:15 09/02/20 09:44 Dextrose (Dextrose 50%) 25 ml Q30M PRN IV Hypoglycemia 06/11/20 17:45 09/09/20 17:44 Dextrose (Dextrose 50%) 50 ml Q30M PRN IV Hypoglycemia 06/06/20 16:15 09/02/20 09:44 Dextrose (Dextrose 50%) 50 ml Q30M PRN IV Hypoglycemia 06/11/20 17:45 09/09/20 17:44 Famotidine (Pepcid) 20 mg BID GT 06/06/20 18:00 09/01/20 17:59 06/14/20 17:41 Heparin Sodium (Porcine) (Heparin 5000 units/ml) 5,000 units EVERY 12 HOURS SUBQ 06/06/20 21:00 07/17/20 08:59 06/14/20 21:15 Insulin Aspart (NovoLOG) Q6HR SUBQ 06/11/20 18:00 09/09/20 17:59 06/15/20 06:04 Insulin Detemir (Levemir) 15 units EVERY 12 HOURS SUBQ 06/11/20 21:00 09/09/20 20:59 06/14/20 21:16 Midodrine (Pro-Amatine) 2.5 mg TIDPRN PRN ORAL blood pressure below 100 sbp 06/13/20 10:15 09/11/20 10:14 Pravastatin Sodium (Pravachol) 20 mg BEDTIME GT 06/06/20 21:00 07/02/20 20:59 06/14/20 21:16 Sennosides (Senokot) 8.6 mg DAILY GT 06/07/20 09:00 07/02/20 08:59 06/14/20 08:28 Gregory Pastrana MD Jun 15, 2020 06:50
--- NOTE | 2020-06-15 06:56 | NUR ---
NURSE HAND-OFF: Important Events on Shift: Patient tolerates feeding well, HR slightly elevated Patient Status: Stable Diet: G-TUBE, GLUCERNA 1.5 FOR 20 HOURS, HOLD FROM 7A-11A Pending Orders: N.A Pending Results/Labs:CBC,CMP,PHOS,MAG,URIC ACID Pending MD notification: N.A Latest Vital Signs: Temperature 97.5 , Pulse 107 , B/P 108 /64 , Respiratory Rate 20 , O2 SAT 95 , Room Air, O2 Flow Rate 3.0 . Vital Sign Comment: HR slightly elevated compared to baseline Latest Lane Fall Score: 40 Fall Risk: Medium Risk Safety Measures: Call light Within Reach, Bed Alarm Zone 1, Side Rails Side Rails x3, Bed position Low and Locked. Fall Precautions: Yellow Socks Yellow Gown
--- NOTE | 2020-06-15 07:34 | NUR ---
HAND-OFF: Report given to JOHNNY Mead.
--- NOTE | 2020-06-15 07:49 | NUR ---
NURSE NOTES: Received patient in bed awake. No SOB or acute distress. IV line intact. Gtube intact, feeding turned off. FC intact, draining yellow colored urine. HOB elevated. Bed locked in low position. Call light within reach. Will continue plan of care.
[2020-06-15 08:00] VITALS: BP 128/77
[2020-06-15] MEDS: Amantadine 100mg cap GT SCH ×2 (08:35→17:18)
[2020-06-15] MEDS: Sennosides 8.6mg tab GT SCH (08:36)
[2020-06-15] MEDS: Aspirin Baby 81mg GT SCH (08:36)
[2020-06-15] MEDS: Heparin 5000 units/ml inj SUBQ SCH ×2 (08:37→22:23)
[2020-06-15] MEDS: Levemir Flexpen SUBQ SCH ×2 (09:02→22:24)
--- NOTE | 2020-06-15 10:23 | Nephrology Progress Note ---
Assessment/Plan Problem List: (1) Hypernatremia (2) Sepsis (3) History of CVA (cerebrovascular accident) (4) Parkinson disease (5) Feeding by G-tube (6) Dehydration Assessment KELLY, resolving, serum creatinine of 1.9 now down to 1.2 Hypernatremia, dehydration, free water deficit Sepsis Diabetes mellitus [id number] GT feeding Severe protein calorie malnutrition History of CVA History of hypertension Parkinson's disease Plan June 15: Lab reviewed. Serum sodium high. 1 L D5W given. Serum creatinine 1.4. Pamidronate given yesterday. Continue to monitor serum calcium. June 14: Lab reviewed. Serum calcium high corrected for low serum albumin. 60 mg pamidronate ID given. Continue to monitor renal parameters calcium and phosphorus. June 13: Lab reviewed. Medication list reviewed. Renal parameters stable. Will watch serum calcium and serum sodium. Chemistry panel tomorrow. June 12: Labs reviewed. Stable from renal standpoint of view. June 11: Labs reviewed. Stable renal parameters. June 10: Lab reviewed. Serum potassium normalized. Will give 1 L of D5W for high serum sodium. Continue per consultants. June 09: Labs reviewed. Discussed with RN. Serum potassium elevated. Suspect hemolysis. Will repeat serum potassium. DC all potassium supplements. June 08: Serum sodium higher. Will give 1 L of D5W. Renal parameters stable. Continue to monitor electrolytes. Continue per consultants. June 07: 1 bolus of D5W. Renal parameters stable. Serum sodium slightly high. Stable from renal standpoint of view. June 06: We will again discontinue the IV ordered. Stable from renal standpoint of view. Will start midodrine for low blood pressure. June 05: DC IV fluid. Potassium supplement given. Stable from renal standpoint to view. June 04: Potassium and magnesium supplement IV given, stable from renal standpoint of view. IV fluid D5W Monitor electrolytes Monitor renal parameters Hold blood pressure medication since blood pressure low Per orders, per consultants Subjective ROS Limited/Unobtainable: No Constitutional: Reports: malaise Objective Objective Last 24 Hour Vital Signs Date Time Temp Pulse Resp B/P (MAP) Pulse Ox O2 Delivery O2 Flow Rate FiO2 06/15/20 09:00 Room Air 06/15/20 08:00 97.5 103 18 128/77 (94) 96 06/15/20 04:00 97.5 107 20 108/64 (79) 95 06/15/20 00:00 96.6 108 22 113/72 (86) 97 06/14/20 21:00 Room Air 06/14/20 20:00 97.7 106 20 111/72 (85) 95 06/14/20 16:00 98.2 98 18 122/74 (90) 96 06/14/20 12:00 98.0 98 18 106/68 (81) 97 Intake and Output 06/14/20 06/15/20 19:00 07:00 Intake Total 160 ml 800 ml Output Total 600 ml 550 ml Balance -440 ml 250 ml Free Water 100 ml 200 ml Tube Feeding 60 ml 600 ml Output Urine Total 600 ml 550 ml # Voids 2 Current Medications Medications (Trade) Dose Ordered Sig/Debi Route PRN Reason Start Time Stop Time Status Last Admin Dose Admin Acetaminophen (Tylenol) 650 mg Q6H PRN GT Mild Pain (Pain Scale 1-3) 06/06/20 16:15 07/02/20 16:14 06/10/20 20:51 Amantadine HCl (Symmetrel) 100 mg TWICE A DAY GT 06/06/20 18:00 07/02/20 08:59 06/15/20 08:35 Aspirin (ASA) 81 mg DAILY GT 06/07/20 09:00 07/17/20 08:59 06/15/20 08:36 Dextrose 1,000 ml @ 100 mls/hr Q10H IV 06/15/20 08:15 06/15/20 18:14 06/15/20 08:36 Dextrose (Dextrose 50%) 25 ml Q30M PRN IV Hypoglycemia 06/06/20 16:15 09/02/20 09:44 Dextrose (Dextrose 50%) 25 ml Q30M PRN IV Hypoglycemia 06/11/20 17:45 09/09/20 17:44 Dextrose (Dextrose 50%) 50 ml Q30M PRN IV Hypoglycemia 06/06/20 16:15 09/02/20 09:44 Dextrose (Dextrose 50%) 50 ml Q30M PRN IV Hypoglycemia 06/11/20 17:45 09/09/20 17:44 Famotidine (Pepcid) 20 mg BID GT 06/06/20 18:00 09/01/20 17:59 06/15/20 08:36 Heparin Sodium (Porcine) (Heparin 5000 units/ml) 5,000 units EVERY 12 HOURS SUBQ 06/06/20 21:00 07/17/20 08:59 06/15/20 08:37 Insulin Aspart (NovoLOG) Q6HR SUBQ 06/11/20 18:00 09/09/20 17:59 06/15/20 06:04 Insulin Detemir (Levemir) 15 units EVERY 12 HOURS SUBQ 06/11/20 21:00 09/09/20 20:59 06/15/20 09:02 Midodrine (Pro-Amatine) 2.5 mg TIDPRN PRN ORAL blood pressure below 100 sbp 06/13/20 10:15 09/11/20 10:14 Pravastatin Sodium (Pravachol) 20 mg BEDTIME GT 06/06/20 21:00 07/02/20 20:59 06/14/20 21:16 Sennosides (Senokot) 8.6 mg DAILY GT 06/07/20 09:00 07/02/20 08:59 06/15/20 08:36 Laboratory Tests 06/15/20 00:41: POC Whole Blood Glucose 235H 06/15/20 05:40: White Blood Count 7.7, Red Blood Count 4.18L, Hemoglobin 12.7L, Hematocrit 42.3 , Mean Corpuscular Volume 101H, Mean Corpuscular Hemoglobin 30.4, Mean Corpuscular Hemoglobin Concent 30.0L, Red Cell Distribution Width 15.4H, Platelet Count 526H, Mean Platelet Volume 8.6, Neutrophils (%) (Auto) 56.4, Lymphocytes (%) (Auto) 32.5, Monocytes (%) (Auto) 8.7, Eosinophils (%) (Auto) 1.4, Basophils (%) (Auto) 1.0, Sodium Level 160H, Potassium Level 5.0, Chloride Level 119H, Carbon Dioxide Level 35H, Anion Gap 6, Blood Urea Nitrogen 49H, Creatinine 1.4H, Estimat Glomerular Filtration Rate 59.4, Glucose Level 243#H, Uric Acid 5.6, Calcium Level 9.8, Phosphorus Level 2.9, Magnesium Level 2.8H, Total Bilirubin 0.2, Aspartate Amino Transf (AST/SGOT) 33, Alanine Aminotransferase (ALT/SGPT) 41, Alkaline Phosphatase 214H, Total Protein 8.9H, Albumin 2.6L, Globulin 6.3, Albumin/Globulin Ratio 0.4L 06/15/20 05:41: POC Whole Blood Glucose 221H Height (Feet): 5 Height (Inches): 5.00 Weight (Pounds): 123 General Appearance: no apparent distress Cardiovascular: tachycardia Respiratory/Chest: decreased breath sounds Objective No change Eddie Nelson MD Jun 15, 2020 10:23
[2020-06-15 12:00] VITALS: BP 117/83
--- NOTE | 2020-06-15 12:40 | Infectious Diseases Prog Note ---
Assessment/Plan 79yo M with: Fever, SP Leukocytosis, SP KELLY, improving UTI, sp rx 06/01 UA w/ pyuria, UCx + P Mirabilis ESBL 06/01 BCx Neg 06/01 CXR: No acute process COVID rapid test neg H/o ESBL Proteus in UCx in Oct 2019 Renal US w/ BL cysts PMH: DM2 Parkinson's dementia Bedridden G-tube Plan: Cont to monitor off abx 06/10 SP audra #8 06/02 SP erta #1 06/01 SP cefepime, vanco, flagyl x1 in ED Monitor CBC/BMP Trend leukocytosis, KELLY Trend hemodynamics, temp curve discharge planing D/w RN Thank you for this consult. [facility] will continue to follow. Subjective Allergies: Coded Allergies: No Known Allergies (Unverified , 08/27/19) afebrile no leuckocytosis Cr increased Objective Last 24 Hour Vital Signs Date Time Temp Pulse Resp B/P (MAP) Pulse Ox O2 Delivery O2 Flow Rate FiO2 06/15/20 12:00 98.1 105 18 117/83 (94) 96 06/15/20 09:00 Room Air 06/15/20 08:00 97.5 103 18 128/77 (94) 96 06/15/20 04:00 97.5 107 20 108/64 (79) 95 06/15/20 00:00 96.6 108 22 113/72 (86) 97 06/14/20 21:00 Room Air 06/14/20 20:00 97.7 106 20 111/72 (85) 95 06/14/20 16:00 98.2 98 18 122/74 (90) 96 Height (Feet): 5 Height (Inches): 5.00 Weight (Pounds): 123 GENERAL: no apparent distress. CHEST: Lungs are clear to auscultation bilaterally without wheezes or rales. CARDIOVASCULAR: regular rhythm. S1, S2 are normal without murmurs, rubs, or gallops. ABDOMEN: Soft, nontender, and nondistended. Positive bowel sounds. No evidence of hepatosplenomegaly. EXTREMITIES: Negative for clubbing, cyanosis, or edema. Laboratory Tests Test 06/15/20 00:41 06/15/20 05:40 06/15/20 05:41 POC Whole Blood Glucose 235 MG/DL (74-106) H 221 MG/DL (74-106) H White Blood Count 7.7 K/UL (4.8-10.8) Red Blood Count 4.18 M/UL (4.70-6.10) L Hemoglobin 12.7 G/DL (14.2-18.0) L Hematocrit 42.3 % (42.0-52.0) Mean Corpuscular Volume 101 FL (80-99) H Mean Corpuscular Hemoglobin 30.4 PG (27.0-31.0) Mean Corpuscular Hemoglobin Concent 30.0 G/DL (32.0-36.0) L Red Cell Distribution Width 15.4 % (11.6-14.8) H Platelet Count 526 K/UL (150-450) H Mean Platelet Volume 8.6 FL (6.5-10.1) Neutrophils (%) (Auto) 56.4 % (45.0-75.0) Lymphocytes (%) (Auto) 32.5 % (20.0-45.0) Monocytes (%) (Auto) 8.7 % (1.0-10.0) Eosinophils (%) (Auto) 1.4 % (0.0-3.0) Basophils (%) (Auto) 1.0 % (0.0-2.0) Sodium Level 160 MMOL/L (136-145) H Potassium Level 5.0 MMOL/L (3.5-5.1) Chloride Level 119 MMOL/L (98-107) H Carbon Dioxide Level 35 MMOL/L (21-32) H Anion Gap 6 mmol/L (5-15) Blood Urea Nitrogen 49 mg/dL (7-18) H Creatinine 1.4 MG/DL (0.55-1.30) H Estimat Glomerular Filtration Rate 59.4 mL/min (>60) Glucose Level 243 MG/DL (74-106) #H Uric Acid 5.6 MG/DL (2.6-7.2) Calcium Level 9.8 MG/DL (8.5-10.1) Phosphorus Level 2.9 MG/DL (2.5-4.9) Magnesium Level 2.8 MG/DL (1.8-2.4) H Total Bilirubin 0.2 MG/DL (0.2-1.0) Aspartate Amino Transf (AST/SGOT) 33 U/L (15-37) Alanine Aminotransferase (ALT/SGPT) 41 U/L (12-78) Alkaline Phosphatase 214 U/L (46-116) H Total Protein 8.9 G/DL (6.4-8.2) H Albumin 2.6 G/DL (3.4-5.0) L Globulin 6.3 g/dL Albumin/Globulin Ratio 0.4 (1.0-2.7) L Current Medications Medications (Trade) Dose Ordered Sig/Debi Route PRN Reason Start Time Stop Time Status Last Admin Dose Admin Acetaminophen (Tylenol) 650 mg Q6H PRN GT Mild Pain (Pain Scale 1-3) 06/06/20 16:15 07/02/20 16:14 06/10/20 20:51 Amantadine HCl (Symmetrel) 100 mg TWICE A DAY GT 06/06/20 18:00 07/02/20 08:59 06/15/20 08:35 Aspirin (ASA) 81 mg DAILY GT 06/07/20 09:00 07/17/20 08:59 06/15/20 08:36 Dextrose 1,000 ml @ 100 mls/hr Q10H IV 06/15/20 08:15 06/15/20 18:14 06/15/20 08:36 Dextrose (Dextrose 50%) 25 ml Q30M PRN IV Hypoglycemia 06/06/20 16:15 09/02/20 09:44 Dextrose (Dextrose 50%) 25 ml Q30M PRN IV Hypoglycemia 06/11/20 17:45 09/09/20 17:44 Dextrose (Dextrose 50%) 50 ml Q30M PRN IV Hypoglycemia 06/06/20 16:15 09/02/20 09:44 Dextrose (Dextrose 50%) 50 ml Q30M PRN IV Hypoglycemia 06/11/20 17:45 09/09/20 17:44 Famotidine (Pepcid) 20 mg BID GT 06/06/20 18:00 09/01/20 17:59 06/15/20 08:36 Heparin Sodium (Porcine) (Heparin 5000 units/ml) 5,000 units EVERY 12 HOURS SUBQ 06/06/20 21:00 07/17/20 08:59 06/15/20 08:37 Insulin Aspart (NovoLOG) Q6HR SUBQ 06/11/20 18:00 09/09/20 17:59 06/15/20 06:04 Insulin Detemir (Levemir) 15 units EVERY 12 HOURS SUBQ 06/11/20 21:00 09/09/20 20:59 06/15/20 09:02 Midodrine (Pro-Amatine) 2.5 mg TIDPRN PRN ORAL blood pressure below 100 sbp 06/13/20 10:15 09/11/20 10:14 Pravastatin Sodium (Pravachol) 20 mg BEDTIME GT 06/06/20 21:00 07/02/20 20:59 06/14/20 21:16 Sennosides (Senokot) 8.6 mg DAILY GT 06/07/20 09:00 07/02/20 08:59 06/15/20 08:36 Blaire Greenwood M.D. Jun 15, 2020 12:40
--- NOTE | 2020-06-15 12:59 | Pulmonology Progress Note ---
Subjective ROS Limited/Unobtainable: No Constitutional: Reports: anorexia Allergies: Coded Allergies: No Known Allergies (Unverified , 08/27/19) All Systems: reviewed and negative except above Objective Last 24 Hour Vital Signs Date Time Temp Pulse Resp B/P (MAP) Pulse Ox O2 Delivery O2 Flow Rate FiO2 06/15/20 12:00 98.1 105 18 117/83 (94) 96 06/15/20 09:00 Room Air 06/15/20 08:00 97.5 103 18 128/77 (94) 96 06/15/20 04:00 97.5 107 20 108/64 (79) 95 06/15/20 00:00 96.6 108 22 113/72 (86) 97 06/14/20 21:00 Room Air 06/14/20 20:00 97.7 106 20 111/72 (85) 95 06/14/20 16:00 98.2 98 18 122/74 (90) 96 Intake and Output 06/14/20 06/15/20 19:00 07:00 Intake Total 160 ml 800 ml Output Total 600 ml 550 ml Balance -440 ml 250 ml Free Water 100 ml 200 ml Tube Feeding 60 ml 600 ml Output Urine Total 600 ml 550 ml # Voids 2 General Appearance: cachetic HEENT: normocephalic, atraumatic Respiratory: chest wall non-tender, normal breath sounds Cardiovascular: normal peripheral pulses, normal rate Genitourinary: normal external genitalia Extremities: no clubbing Skin: no lesions 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: 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 II-XII grossly normal Lymphatic: no neck adenopathy Laboratory Tests 06/15/20 00:41: POC Whole Blood Glucose 235H 06/15/20 05:40: White Blood Count 7.7, Red Blood Count 4.18L, Hemoglobin 12.7L, Hematocrit 42.3 , Mean Corpuscular Volume 101H, Mean Corpuscular Hemoglobin 30.4, Mean Corpuscular Hemoglobin Concent 30.0L, Red Cell Distribution Width 15.4H, Platelet Count 526H, Mean Platelet Volume 8.6, Neutrophils (%) (Auto) 56.4, Lymphocytes (%) (Auto) 32.5, Monocytes (%) (Auto) 8.7, Eosinophils (%) (Auto) 1.4, Basophils (%) (Auto) 1.0, Sodium Level 160H, Potassium Level 5.0, Chloride Level 119H, Carbon Dioxide Level 35H, Anion Gap 6, Blood Urea Nitrogen 49H, Creatinine 1.4H, Estimat Glomerular Filtration Rate 59.4, Glucose Level 243#H, Uric Acid 5.6, Calcium Level 9.8, Phosphorus Level 2.9, Magnesium Level 2.8H, Total Bilirubin 0.2, Aspartate Amino Transf (AST/SGOT) 33, Alanine Aminotransferase (ALT/SGPT) 41, Alkaline Phosphatase 214H, Total Protein 8.9H, Albumin 2.6L, Globulin 6.3, Albumin/Globulin Ratio 0.4L 06/15/20 05:41: POC Whole Blood Glucose 221H Current Medications Medications (Trade) Dose Ordered Sig/Debi Route PRN Reason Start Time Stop Time Status Last Admin Dose Admin Acetaminophen (Tylenol) 650 mg Q6H PRN GT Mild Pain (Pain Scale 1-3) 06/06/20 16:15 07/02/20 16:14 06/10/20 20:51 Amantadine HCl (Symmetrel) 100 mg TWICE A DAY GT 06/06/20 18:00 07/02/20 08:59 06/15/20 08:35 Aspirin (ASA) 81 mg DAILY GT 06/07/20 09:00 07/17/20 08:59 06/15/20 08:36 Dextrose 1,000 ml @ 100 mls/hr Q10H IV 06/15/20 08:15 06/15/20 18:14 06/15/20 08:36 Dextrose (Dextrose 50%) 25 ml Q30M PRN IV Hypoglycemia 06/06/20 16:15 09/02/20 09:44 Dextrose (Dextrose 50%) 25 ml Q30M PRN IV Hypoglycemia 06/11/20 17:45 09/09/20 17:44 Dextrose (Dextrose 50%) 50 ml Q30M PRN IV Hypoglycemia 06/06/20 16:15 09/02/20 09:44 Dextrose (Dextrose 50%) 50 ml Q30M PRN IV Hypoglycemia 06/11/20 17:45 09/09/20 17:44 Famotidine (Pepcid) 20 mg BID GT 06/06/20 18:00 09/01/20 17:59 06/15/20 08:36 Heparin Sodium (Porcine) (Heparin 5000 units/ml) 5,000 units EVERY 12 HOURS SUBQ 06/06/20 21:00 07/17/20 08:59 06/15/20 08:37 Insulin Aspart (NovoLOG) Q6HR SUBQ 06/11/20 18:00 09/09/20 17:59 06/15/20 06:04 Insulin Detemir (Levemir) 15 units EVERY 12 HOURS SUBQ 06/11/20 21:00 09/09/20 20:59 06/15/20 09:02 Midodrine (Pro-Amatine) 2.5 mg TIDPRN PRN ORAL blood pressure below 100 sbp 06/13/20 10:15 09/11/20 10:14 Pravastatin Sodium (Pravachol) 20 mg BEDTIME GT 06/06/20 21:00 07/02/20 20:59 06/14/20 21:16 Sennosides (Senokot) 8.6 mg DAILY GT 06/07/20 09:00 07/02/20 08:59 06/15/20 08:36 Assessment/Plan Problems: (1) Sepsis (2) Multiple drug resistant organism (MDRO) culture positive (3) Diabetes mellitus (4) Feeding by G-tube (5) Severe protein-calorie malnutrition (6) Parkinson disease (7) History of hypertension (8) History of CVA (cerebrovascular accident) Assessment/Plan renal function is worse. electrolytes fluctuating Improving ronquillo culture, Urine has proteus,,MDR COVID Negative iv fluids renal studies renal function improving urine electrolytes. sliding scale Latanya Mckeon MD Jun 15, 2020 12:59
--- NOTE | 2020-06-15 14:11 | NUR ---
ADMINISTRATIVE UNDERWRITER NOTE MESSAGE LEFT FOR DR MEDINA IN RE TO DC PLAN.
--- NOTE | 2020-06-15 14:12 | NUR ---
CASE MANAGEMENT:REVIEW SI;SEPSIS. MDRO. ACUTE KIDNEY INJURY. 96.6 108 22 128/77 96% ON RA PLT 526 NA 160 CL 119 CO2 35 BUN 49 CR 1.4 BG 243 MAG 2.8 ALP 214 ALB 2.6 IS;IVF D5 @ 100 ML/HR INSULIN LEVEMIR SUBQ Q12 INSULIN NOVOLOG SUBQ Q6 HEPARIN SUBQ Q12 AMANTADINE GT BID PEPCID GT BID ASA GT QD MED SURG STATUS DCP;FROM [facility]
[2020-06-15 16:00] VITALS: BP 117/76
--- NOTE | 2020-06-15 17:30 | Internal Med Progress Note ---
Subjective Physician Name Cirilo Rome Attending Physician Cirilo Rome MD Current Medications Medications (Trade) Dose Ordered Sig/Debi Route PRN Reason Start Time Stop Time Status Last Admin Dose Admin Acetaminophen (Tylenol) 650 mg Q6H PRN GT Mild Pain (Pain Scale 1-3) 06/06/20 16:15 07/02/20 16:14 06/10/20 20:51 Amantadine HCl (Symmetrel) 100 mg TWICE A DAY GT 06/06/20 18:00 07/02/20 08:59 06/15/20 17:18 Aspirin (ASA) 81 mg DAILY GT 06/07/20 09:00 07/17/20 08:59 06/15/20 08:36 Dextrose 1,000 ml @ 100 mls/hr Q10H IV 06/15/20 08:15 06/15/20 18:14 06/15/20 08:36 Dextrose (Dextrose 50%) 25 ml Q30M PRN IV Hypoglycemia 06/06/20 16:15 09/02/20 09:44 Dextrose (Dextrose 50%) 25 ml Q30M PRN IV Hypoglycemia 06/11/20 17:45 09/09/20 17:44 Dextrose (Dextrose 50%) 50 ml Q30M PRN IV Hypoglycemia 06/06/20 16:15 09/02/20 09:44 Dextrose (Dextrose 50%) 50 ml Q30M PRN IV Hypoglycemia 06/11/20 17:45 09/09/20 17:44 Famotidine (Pepcid) 20 mg BID GT 06/06/20 18:00 09/01/20 17:59 06/15/20 17:18 Heparin Sodium (Porcine) (Heparin 5000 units/ml) 5,000 units EVERY 12 HOURS SUBQ 06/06/20 21:00 07/17/20 08:59 06/15/20 08:37 Insulin Aspart (NovoLOG) Q6HR SUBQ 06/11/20 18:00 09/09/20 17:59 06/15/20 06:04 Insulin Detemir (Levemir) 15 units EVERY 12 HOURS SUBQ 06/11/20 21:00 09/09/20 20:59 06/15/20 09:02 Midodrine (Pro-Amatine) 2.5 mg TIDPRN PRN ORAL blood pressure below 100 sbp 06/13/20 10:15 09/11/20 10:14 Pravastatin Sodium (Pravachol) 20 mg BEDTIME GT 06/06/20 21:00 07/02/20 20:59 06/14/20 21:16 Sennosides (Senokot) 8.6 mg DAILY GT 06/07/20 09:00 07/02/20 08:59 06/15/20 08:36 Allergies: Coded Allergies: No Known Allergies (Unverified , 08/27/19) Subjective awake, alert, responsive, no acute distress. Poor eye contact. Objective Last Vital Signs Date Time Temp Pulse Resp B/P (MAP) Pulse Ox O2 Delivery O2 Flow Rate FiO2 06/15/20 12:00 98.1 105 18 117/83 (94) 96 06/15/20 09:00 Room Air Laboratory Tests Test 06/15/20 00:41 06/15/20 05:40 06/15/20 05:41 POC Whole Blood Glucose 235 MG/DL (74-106) H 221 MG/DL (74-106) H White Blood Count 7.7 K/UL (4.8-10.8) Red Blood Count 4.18 M/UL (4.70-6.10) L Hemoglobin 12.7 G/DL (14.2-18.0) L Hematocrit 42.3 % (42.0-52.0) Mean Corpuscular Volume 101 FL (80-99) H Mean Corpuscular Hemoglobin 30.4 PG (27.0-31.0) Mean Corpuscular Hemoglobin Concent 30.0 G/DL (32.0-36.0) L Red Cell Distribution Width 15.4 % (11.6-14.8) H Platelet Count 526 K/UL (150-450) H Mean Platelet Volume 8.6 FL (6.5-10.1) Neutrophils (%) (Auto) 56.4 % (45.0-75.0) Lymphocytes (%) (Auto) 32.5 % (20.0-45.0) Monocytes (%) (Auto) 8.7 % (1.0-10.0) Eosinophils (%) (Auto) 1.4 % (0.0-3.0) Basophils (%) (Auto) 1.0 % (0.0-2.0) Sodium Level 160 MMOL/L (136-145) H Potassium Level 5.0 MMOL/L (3.5-5.1) Chloride Level 119 MMOL/L (98-107) H Carbon Dioxide Level 35 MMOL/L (21-32) H Anion Gap 6 mmol/L (5-15) Blood Urea Nitrogen 49 mg/dL (7-18) H Creatinine 1.4 MG/DL (0.55-1.30) H Estimat Glomerular Filtration Rate 59.4 mL/min (>60) Glucose Level 243 MG/DL (74-106) #H Uric Acid 5.6 MG/DL (2.6-7.2) Calcium Level 9.8 MG/DL (8.5-10.1) Phosphorus Level 2.9 MG/DL (2.5-4.9) Magnesium Level 2.8 MG/DL (1.8-2.4) H Total Bilirubin 0.2 MG/DL (0.2-1.0) Aspartate Amino Transf (AST/SGOT) 33 U/L (15-37) Alanine Aminotransferase (ALT/SGPT) 41 U/L (12-78) Alkaline Phosphatase 214 U/L (46-116) H Total Protein 8.9 G/DL (6.4-8.2) H Albumin 2.6 G/DL (3.4-5.0) L Globulin 6.3 g/dL Albumin/Globulin Ratio 0.4 (1.0-2.7) L Intake and Output 06/14/20 06/15/20 19:00 07:00 Intake Total 160 ml 800 ml Output Total 600 ml 550 ml Balance -440 ml 250 ml Free Water 100 ml 200 ml Tube Feeding 60 ml 600 ml Output Urine Total 600 ml 550 ml # Voids 2 Objective General: No acute distress, awake and alert HEENT: NCAT, sclera anicteric, PERRL, EOMI. Neck: Supple, no significant jugular venous distention, Lungs: Fair inspiratory effort, clear to auscultation bilaterally, no Wheeze or Rales. Heart: Regular rate and rhythm, normal S1/S2, no murmurs Abdomen: soft, nontender, nondistended. Normoactive bowel sounds, PEG. Extremities: No Cyanosis , clubbing or edema. Neuro: A&O x 3, Able to move 5/5 upper extremities and 1/5 lower extremities. Skin: warm, no rash. Assessment/Plan Assessment/Plan ASSESSMENT: This is a 79-year-old male with: 1. Hyperglycemia. 2. Hypernatremia. 3. Urinary tract infection=MDR proteus. 4. Diabetes type 2. 5. Hypertension. 6. Hypercholesterolemia. 7. Dysphagia. 8. Parkinson disease. 9. Ulcerative proctitis. 10. Severe Protein-calorie malnutrition. 11. History of sacral decubitus ulcer stage IV. 12. Benign prostatic hypertrophy. 13. Gastroesophageal reflux disease. 14. Metabolic encephalopathy. 15. History of left hip fracture. TREATMENT: 1. Hyperglycemia/diabetes. The patient has been placed on a protocol using NovoLog sliding scale. The patient's blood sugars have been running in 300s. Hyperglycemia may be secondary to urinary tract infection. 2. Urinary tract infection. Urine culture =MDR proteus. results.ID=Dr Oliva 3. Hypertension. Continue amlodipine as above. 4. Hypercholesterolemia. Continue atorvastatin as above. 5. Dysphagia. The patient is status post PEG placement. 6. Parkinson disease. Continue amantadine as above. 7. Ulcerative proctitis. 8. Protein-calorie malnutrition. 9. Sacral decubitus ulcer stage IV. 10. Benign prostatic hypertrophy. Continue tamsulosin as above. 11. Gastroesophageal reflux disease. 12. Metabolic encephalopathy. 13. History of left hip fracture. Abx: Off Tolerate tube feeding @60 cc/hr. CODE STATUS: Full code. DVT prophylaxis: Heparin subcu. Consider discharge plan to SNF. Cirilo Rome MD Jun 15, 2020 17:30
--- NOTE | 2020-06-15 18:33 | Surgery Progress Note ---
Surgery Progress Note Subjective Symptoms: improved, tolerating diet, passing flatus, BM Objective Last 24 Hour Vital Signs Date Time Temp Pulse Resp B/P (MAP) Pulse Ox O2 Delivery O2 Flow Rate FiO2 06/15/20 16:00 98.4 103 18 117/76 (90) 96 06/15/20 12:00 98.1 105 18 117/83 (94) 96 06/15/20 09:00 Room Air 06/15/20 08:00 97.5 103 18 128/77 (94) 96 06/15/20 04:00 97.5 107 20 108/64 (79) 95 06/15/20 00:00 96.6 108 22 113/72 (86) 97 06/14/20 21:00 Room Air 06/14/20 20:00 97.7 106 20 111/72 (85) 95 I&O Intake and Output 06/14/20 06/15/20 19:00 07:00 Intake Total 160 ml 800 ml Output Total 600 ml 550 ml Balance -440 ml 250 ml Free Water 100 ml 200 ml Tube Feeding 60 ml 600 ml Output Urine Total 600 ml 550 ml # Voids 2 Dressing: saturated Cardiovascular: RSR Respiratory: clear Abdomen: soft, non-tender, present bowel sounds Extremities: no edema, no tenderness, no cyanosis Laboratory Tests Test 06/15/20 00:41 06/15/20 05:40 06/15/20 05:41 POC Whole Blood Glucose 235 MG/DL (74-106) H 221 MG/DL (74-106) H White Blood Count 7.7 K/UL (4.8-10.8) Red Blood Count 4.18 M/UL (4.70-6.10) L Hemoglobin 12.7 G/DL (14.2-18.0) L Hematocrit 42.3 % (42.0-52.0) Mean Corpuscular Volume 101 FL (80-99) H Mean Corpuscular Hemoglobin 30.4 PG (27.0-31.0) Mean Corpuscular Hemoglobin Concent 30.0 G/DL (32.0-36.0) L Red Cell Distribution Width 15.4 % (11.6-14.8) H Platelet Count 526 K/UL (150-450) H Mean Platelet Volume 8.6 FL (6.5-10.1) Neutrophils (%) (Auto) 56.4 % (45.0-75.0) Lymphocytes (%) (Auto) 32.5 % (20.0-45.0) Monocytes (%) (Auto) 8.7 % (1.0-10.0) Eosinophils (%) (Auto) 1.4 % (0.0-3.0) Basophils (%) (Auto) 1.0 % (0.0-2.0) Sodium Level 160 MMOL/L (136-145) H Potassium Level 5.0 MMOL/L (3.5-5.1) Chloride Level 119 MMOL/L (98-107) H Carbon Dioxide Level 35 MMOL/L (21-32) H Anion Gap 6 mmol/L (5-15) Blood Urea Nitrogen 49 mg/dL (7-18) H Creatinine 1.4 MG/DL (0.55-1.30) H Estimat Glomerular Filtration Rate 59.4 mL/min (>60) Glucose Level 243 MG/DL (74-106) #H Uric Acid 5.6 MG/DL (2.6-7.2) Calcium Level 9.8 MG/DL (8.5-10.1) Phosphorus Level 2.9 MG/DL (2.5-4.9) Magnesium Level 2.8 MG/DL (1.8-2.4) H Total Bilirubin 0.2 MG/DL (0.2-1.0) Aspartate Amino Transf (AST/SGOT) 33 U/L (15-37) Alanine Aminotransferase (ALT/SGPT) 41 U/L (12-78) Alkaline Phosphatase 214 U/L (46-116) H Total Protein 8.9 G/DL (6.4-8.2) H Albumin 2.6 G/DL (3.4-5.0) L Globulin 6.3 g/dL Albumin/Globulin Ratio 0.4 (1.0-2.7) L Plan Problems: (1) Hypernatremia (2) Dehydration (3) Hip fracture, left (4) Diabetes mellitus (5) History of hypertension (6) Severe protein-calorie malnutrition Assessment & Plan: DAILY ESTIMATED NEEDS: Needs based on Sepsis, DM/ 54kg 30-40 kcals/kg 8765-3569 total kcals 1.25-2 g protein/kg 68-108 g total protein 25-35ml/kcal mL/kg 8725-7162 total fluid mLs NUTRITION DIAGNOSIS: * Swallowing difficulty R/T dysphagia, as evidenced by Pt is GT dep. (CURRENT TF: Glucerna 1.5 @ 30ml/hr x 24 hrs) ENTERAL NUTRITION RECOMMENDATIONS: Glucerna 1.5 @ 60ml/hr x 20 hrs to provide 1200ml, 1800kcal, 99g prot, 911ml free water, 160g carbs * Rec to INCREASE TF GOAL to 60ml/hr for 20 hrs * HOB over 30 degrees, increased water flushes * TF at goal meets 100% est needs. -------- ADDITIONAL RECOMMENDATIONS: * Calibrated bedscale wt for accurate CBW * Monitor lytes daily w/ TF, replete as needed * Pt may require increase in insulin regimen for improved BG W/ continuous TF infusion * Wound healing: DOMENICA BID, F/up w/ WC eval . (7) Acute encephalopathy (8) Pressure Ulcer Of Sacral Region, Unstageable Assessment & Plan: Pt presented on admission with purple and indurated area at Sacrococcygeal at previously compromised site(L)7cm x (W)3cm.Surrounding Hyperpigmentation at Sacrum. Non-Blanching erythema without fluctuance R heel. Non-Blanching erythema with delineated margins L heel (L)4.5cm x (W)5.5cm. L Heel is boggy . Tx.Plan: Apply Moisture Barrier Paste to Sacrum. Cover with Optifoam drsgs. Change every 3 days and prn. Apply Cavilon Skin Barrier to R and L trochanter. Cover each site with Optifoam drsgs. Change every 7 days and prn. Apply Cavilon Skin Barrier to each heel and malleoli. Cover each site with Optifoam drsgs. Change every 7 days and prn. Reposition at least every 2hours or as tolerated. Off-load heels with pillow. improving cont current care tube site okay (9) Feeding by G-tube (10) Abdominal distention (11) Multiple drug resistant organism (MDRO) culture positive (12) Sepsis (13) History of CVA (cerebrovascular accident) (14) Parkinson disease James Breen Jun 15, 2020 18:33
--- NOTE | 2020-06-15 19:20 | NUR ---
NURSE NOTES: RECEIVED PATIENT FROM JOHNNY KAUFFMAN. PATIENT IS AWAKE, AAOX1, ON ROOM AIR, NO ACUTE DISTRESS NOTED. VSS. G-TUBE FEEDING IN PLACE, NO RESIDUALS, FLUSHING WELL. RUNNNING GLUCERNA 1.5 AT 60CC/HR. ASPIRATION PRECAUTION IMPLEMENTED, HOB>30. PATIENT IS TOLERATING FEEDING WELL. CHRISTINE CATH IN PLACE, DRAINING WELL, YELLOW URINE NOTED. CHRISTINE ANCHOR PRESENT. PIV ON LEFT FA 24G INTACT AND PATENT. WOUND DRESSINGS INTACT AND DRY. BED IS LOCKED AND LOW, BED ALARMS ACTIVE, SIDE RAILS UPX2, AND CALL LIGHT IS WITHIN REACH. WILL CONTINUE TO MONITOR.
--- NOTE | 2020-06-15 19:58 | NUR ---
NURSE HAND-OFF: Important Events on Shift: Patient Status: weak, drowsy Diet: glucerna 1.5 x 60cc/hr Pending Orders: Pending Results/Labs: Pending MD notification: Latest Vital Signs: Temperature 98.4 , Pulse 103 , B/P 117 /76 , Respiratory Rate 18 , O2 SAT 96 , Room Air, O2 Flow Rate 3.0 . Vital Sign Comment: Latest Lane Fall Score: 40 Fall Risk: Medium Risk Safety Measures: Call light Within Reach, Bed Alarm Zone 1, Side Rails Side Rails x3, Bed position Low and Locked. Fall Precautions: Yellow Socks Yellow Gown Report given to Harmony RN.
[2020-06-15 20:00] VITALS: BP 128/77
[2020-06-16] VITALS: BP 131/74
[2020-06-16] MEDS: NovoLOG Insulin Flexpen SUBQ SCH ×4 (00:46→18:00)
[2020-06-16 04:00] VITALS: BP 113/65
--- NOTE | 2020-06-16 06:46 | General Progress Note ---
Assessment/Plan Problem List: (1) Hypernatremia ICD Codes: E87.0 - Hyperosmolality and hypernatremia SNOMED: 032231509 (2) Feeding by G-tube ICD Codes: Z93.1 - Gastrostomy status SNOMED: 434818678, 547987955, 485283784 (3) Diabetes mellitus ICD Codes: E11.9 - Type 2 diabetes mellitus without complications SNOMED: 69546186 (4) History of CVA (cerebrovascular accident) ICD Codes: Z86.73 - Personal history of transient ischemic attack (TIA), and cerebral infarction without residual deficits SNOMED: 094714574 (5) Parkinson disease ICD Codes: G20 - Parkinson's disease SNOMED: 92043478 Assessment/Plan: increase Levemir 15 to 17 units bid continue Novolog sliding scale high dose every 6 hours continue to hold Metformin due to lactic acidosis on presentation Subjective ROS Limited/Unobtainable: Yes Allergies: Coded Allergies: No Known Allergies (Unverified , 08/27/19) Subjective events noted - interval notes reviewed glucose values on higher side Item Value Date Time Bedside Blood Glucose 230 mg/dl H 06/16/20 0551 Bedside Blood Glucose 162 mg/dl H 06/16/20 0046 Bedside Blood Glucose 119 mg/dl 06/15/20 2224 Bedside Blood Glucose 283 mg/dl H 06/15/20 1800 Bedside Blood Glucose 116 mg/dl 06/15/20 1200 Objective Last 24 Hour Vital Signs Date Time Temp Pulse Resp B/P (MAP) Pulse Ox O2 Delivery O2 Flow Rate FiO2 06/16/20 04:00 98.9 105 18 113/65 (81) 96 06/16/20 00:00 98.4 100 18 131/74 (93) 95 06/15/20 21:00 Room Air 06/15/20 20:00 98.6 103 18 128/77 (94) 95 06/15/20 16:00 98.4 103 18 117/76 (90) 96 06/15/20 12:00 98.1 105 18 117/83 (94) 96 06/15/20 09:00 Room Air 06/15/20 08:00 97.5 103 18 128/77 (94) 96 Intake and Output 06/15/20 06/16/20 19:00 07:00 Output Total 800 ml 600 ml Balance -800 ml -600 ml Output Urine Total 800 ml 600 ml # Voids 1 Height (Feet): 5 Height (Inches): 5.00 Weight (Pounds): 123 General Appearance: no apparent distress Neck: normal alignment Cardiovascular: normal rate Respiratory/Chest: decreased breath sounds Abdomen: normal bowel sounds Objective Current Medications Medications (Trade) Dose Ordered Sig/Debi Route PRN Reason Start Time Stop Time Status Last Admin Dose Admin Acetaminophen (Tylenol) 650 mg Q6H PRN GT Mild Pain (Pain Scale 1-3) 06/06/20 16:15 07/02/20 16:14 06/10/20 20:51 Amantadine HCl (Symmetrel) 100 mg TWICE A DAY GT 06/06/20 18:00 07/02/20 08:59 06/15/20 17:18 Aspirin (ASA) 81 mg DAILY GT 06/07/20 09:00 07/17/20 08:59 06/15/20 08:36 Dextrose (Dextrose 50%) 25 ml Q30M PRN IV Hypoglycemia 06/06/20 16:15 09/02/20 09:44 Dextrose (Dextrose 50%) 25 ml Q30M PRN IV Hypoglycemia 06/11/20 17:45 09/09/20 17:44 Dextrose (Dextrose 50%) 50 ml Q30M PRN IV Hypoglycemia 06/06/20 16:15 09/02/20 09:44 Dextrose (Dextrose 50%) 50 ml Q30M PRN IV Hypoglycemia 06/11/20 17:45 09/09/20 17:44 Famotidine (Pepcid) 20 mg BID GT 06/06/20 18:00 09/01/20 17:59 06/15/20 17:18 Heparin Sodium (Porcine) (Heparin 5000 units/ml) 5,000 units EVERY 12 HOURS SUBQ 06/06/20 21:00 07/17/20 08:59 06/15/20 22:23 Insulin Aspart (NovoLOG) Q6HR SUBQ 06/11/20 18:00 09/09/20 17:59 06/16/20 05:51 Insulin Detemir (Levemir) 15 units EVERY 12 HOURS SUBQ 06/11/20 21:00 09/09/20 20:59 06/15/20 22:24 Midodrine (Pro-Amatine) 2.5 mg TIDPRN PRN ORAL blood pressure below 100 sbp 06/13/20 10:15 09/11/20 10:14 Pravastatin Sodium (Pravachol) 20 mg BEDTIME GT 06/06/20 21:00 07/02/20 20:59 06/15/20 22:22 Sennosides (Senokot) 8.6 mg DAILY GT 06/07/20 09:00 07/02/20 08:59 06/15/20 08:36 Gregory Pastrana MD Jun 16, 2020 06:46
--- NOTE | 2020-06-16 07:31 | NUR ---
NURSE HAND-OFF: Important Events on Shift: Sodium 160, endorsed to JOHNNY Balderas. Patient Status: Stable Diet: Glucerna 1.5 @60CC/HR for 20 Hours Pending Orders: N/A Pending Results/Labs:N/A Pending MD notification:N/A Latest Vital Signs: Temperature 98.9 , Pulse 105 , B/P 113 /65 , Respiratory Rate 18 , O2 SAT 96 , Room Air, O2 Flow Rate 3.0 . Vital Sign Comment: Stable Latest Lane Fall Score: 40 Fall Risk: Medium Risk Safety Measures: Call light Within Reach, Bed Alarm Zone 1, Side Rails Side Rails x3, Bed position Low and Locked. Fall Precautions: Yellow Socks Yellow Gown Report given to JOHNNY Balderas.
[2020-06-16 08:00] VITALS: BP 118/76
--- NOTE | 2020-06-16 08:01 | NUR ---
NURSE NOTES: AM rounds made, pt is awake in bed. respiration is even and unlabored with O2 via NC. IV line is inplace. no fever and chills noted at this time. no acute distress noted. call light is within reach. will follow plan of care.
[2020-06-16 08:52] LABS: ANION GAP 6 mmol/L (5-15); BLOOD UREA NITROGEN 45 mg/dL (7-18); CALCIUM 9.3 MG/DL (8.5-10.1); CARBON DIOXIDE 35 MMOL/L (21-32); CHLORIDE 116 MMOL/L (98-107); CREATININE 1.3 MG/DL (0.55-1.30); POTASSIUM 4.3 MMOL/L (3.5-5.1); SODIUM 157 MMOL/L (136-145)
[2020-06-16] MEDS: Amantadine 100mg cap GT SCH ×2 (08:52→18:00)
[2020-06-16] MEDS: Sennosides 8.6mg tab GT SCH (08:52)
[2020-06-16] MEDS: Aspirin Baby 81mg GT SCH (08:52)
[2020-06-16] MEDS: Heparin 5000 units/ml inj SUBQ SCH ×2 (08:54→21:28)
[2020-06-16 08:56] LABS: ALANINE AMINOTRANSFERASE 42 U/L (12-78); ALBUMIN 2.7 G/DL (3.4-5.0); ALBUMIN/GLOBULIN RATIO 0.4 (1.0-2.7); ALKALINE PHOSPHATASE 213 U/L (46-116); ASPARTATE AMINO TRANSFERASE 29 U/L (15-37); BILIRUBIN,TOTAL 0.1 MG/DL (0.2-1.0); PHOSPHORUS 2.8 MG/DL (2.5-4.9)
[2020-06-16] MEDS: Levemir Flexpen SUBQ SCH ×2 (09:05→21:28)
--- NOTE | 2020-06-16 10:09 | Surgery Progress Note ---
Surgery Progress Note Subjective Symptoms: improved, tolerating diet, passing flatus, BM Objective Last 24 Hour Vital Signs Date Time Temp Pulse Resp B/P (MAP) Pulse Ox O2 Delivery O2 Flow Rate FiO2 06/16/20 08:00 97.6 106 20 118/76 (90) 95 06/16/20 04:00 98.9 105 18 113/65 (81) 96 06/16/20 00:00 98.4 100 18 131/74 (93) 95 06/15/20 21:00 Room Air 06/15/20 20:00 98.6 103 18 128/77 (94) 95 06/15/20 16:00 98.4 103 18 117/76 (90) 96 06/15/20 12:00 98.1 105 18 117/83 (94) 96 I&O Intake and Output 06/15/20 06/16/20 19:00 07:00 Intake Total 160 ml 1220 ml Output Total 800 ml 600 ml Balance -640 ml 620 ml Free Water 100 ml 500 ml Tube Feeding 60 ml 720 ml Output Urine Total 800 ml 600 ml # Voids 1 Cardiovascular: RSR Respiratory: clear Abdomen: soft, non-tender, present bowel sounds Extremities: no edema, no tenderness, no cyanosis Laboratory Tests Test 06/16/20 08:20 06/16/20 08:57 Sodium Level 157 MMOL/L (136-145) H Potassium Level 4.3 MMOL/L (3.5-5.1) Chloride Level 116 MMOL/L (98-107) H Carbon Dioxide Level 35 MMOL/L (21-32) H Anion Gap 6 mmol/L (5-15) Blood Urea Nitrogen 45 mg/dL (7-18) H Creatinine 1.3 MG/DL (0.55-1.30) Estimat Glomerular Filtration Rate > 60 mL/min (>60) Glucose Level 183 MG/DL (74-106) H Calcium Level 9.3 MG/DL (8.5-10.1) Phosphorus Level 2.8 MG/DL (2.5-4.9) Total Bilirubin 0.1 MG/DL (0.2-1.0) L Aspartate Amino Transf (AST/SGOT) 29 U/L (15-37) Alanine Aminotransferase (ALT/SGPT) 42 U/L (12-78) Alkaline Phosphatase 213 U/L (46-116) H Total Protein 9.1 G/DL (6.4-8.2) H Albumin 2.7 G/DL (3.4-5.0) L Globulin 6.4 g/dL Albumin/Globulin Ratio 0.4 (1.0-2.7) L POC Whole Blood Glucose 140 MG/DL (74-106) H Plan Problems: (1) Hypernatremia (2) Dehydration (3) Hip fracture, left (4) Diabetes mellitus (5) History of hypertension (6) Severe protein-calorie malnutrition Assessment & Plan: DAILY ESTIMATED NEEDS: Needs based on Sepsis, DM/ 54kg 30-40 kcals/kg 7485-4326 total kcals 1.25-2 g protein/kg 68-108 g total protein 25-35ml/kcal mL/kg 4327-1326 total fluid mLs NUTRITION DIAGNOSIS: * Swallowing difficulty R/T dysphagia, as evidenced by Pt is GT dep. (CURRENT TF: Glucerna 1.5 @ 30ml/hr x 24 hrs) ENTERAL NUTRITION RECOMMENDATIONS: Glucerna 1.5 @ 60ml/hr x 20 hrs to provide 1200ml, 1800kcal, 99g prot, 911ml free water, 160g carbs * Rec to INCREASE TF GOAL to 60ml/hr for 20 hrs * HOB over 30 degrees, increased water flushes * TF at goal meets 100% est needs. -------- ADDITIONAL RECOMMENDATIONS: * Calibrated bedscale wt for accurate CBW * Monitor lytes daily w/ TF, replete as needed * Pt may require increase in insulin regimen for improved BG W/ continuous TF infusion * Wound healing: DOMENICA BID, F/up w/ WC eval . (7) Acute encephalopathy (8) Pressure Ulcer Of Sacral Region, Unstageable Assessment & Plan: Pt presented on admission with purple and indurated area at Sacrococcygeal at previously compromised site(L)7cm x (W)3cm.Surrounding Hyperpigmentation at Sacrum. Non-Blanching erythema without fluctuance R heel. Non-Blanching erythema with delineated margins L heel (L)4.5cm x (W)5.5cm. L Heel is boggy . Tx.Plan: Apply Moisture Barrier Paste to Sacrum. Cover with Optifoam drsgs. Change every 3 days and prn. Apply Cavilon Skin Barrier to R and L trochanter. Cover each site with Optifoam drsgs. Change every 7 days and prn. Apply Cavilon Skin Barrier to each heel and malleoli. Cover each site with Optifoam drsgs. Change every 7 days and prn. Reposition at least every 2hours or as tolerated. Off-load heels with pillow. improving cont current care tube site okay (9) Feeding by G-tube (10) Abdominal distention (11) Multiple drug resistant organism (MDRO) culture positive (12) Sepsis (13) History of CVA (cerebrovascular accident) (14) Parkinson disease James Breen Jun 16, 2020 10:09
[2020-06-16 12:00] VITALS: BP 121/78
--- NOTE | 2020-06-16 12:18 | Infectious Diseases Prog Note ---
Assessment/Plan 79yo M with: Fever, SP Leukocytosis, SP KELLY, improving UTI, sp rx 06/01 UA w/ pyuria, UCx + P Mirabilis ESBL 06/01 BCx Neg 06/01 CXR: No acute process COVID rapid test neg H/o ESBL Proteus in UCx in Oct 2019 Renal US w/ BL cysts PMH: DM2 Parkinson's dementia Bedridden G-tube Plan: Cont to monitor off abx 06/10 SP audra #8 06/02 SP erta #1 06/01 SP cefepime, vanco, flagyl x1 in ED Monitor CBC/BMP Trend hemodynamics, temp curve discharge planing D/w RN Thank you for this consult. [facility] will continue to follow. Subjective Allergies: Coded Allergies: No Known Allergies (Unverified , 08/27/19) afebrile no leuckocytosis no acute events Objective Last 24 Hour Vital Signs Date Time Temp Pulse Resp B/P (MAP) Pulse Ox O2 Delivery O2 Flow Rate FiO2 06/16/20 09:00 Room Air 06/16/20 08:00 97.6 106 20 118/76 (90) 95 06/16/20 04:00 98.9 105 18 113/65 (81) 96 06/16/20 00:00 98.4 100 18 131/74 (93) 95 06/15/20 21:00 Room Air 06/15/20 20:00 98.6 103 18 128/77 (94) 95 06/15/20 16:00 98.4 103 18 117/76 (90) 96 Height (Feet): 5 Height (Inches): 5.00 Weight (Pounds): 123 GENERAL: no apparent distress. CHEST: Lungs are clear to auscultation bilaterally without wheezes or rales. CARDIOVASCULAR: regular rhythm. S1, S2 are normal without murmurs, rubs, or gallops. ABDOMEN: Soft, nontender, and nondistended. Positive bowel sounds. No evidence of hepatosplenomegaly. EXTREMITIES: Negative for clubbing, cyanosis, or edema. Laboratory Tests Test 06/16/20 08:20 06/16/20 08:57 06/16/20 12:12 Sodium Level 157 MMOL/L (136-145) H Potassium Level 4.3 MMOL/L (3.5-5.1) Chloride Level 116 MMOL/L (98-107) H Carbon Dioxide Level 35 MMOL/L (21-32) H Anion Gap 6 mmol/L (5-15) Blood Urea Nitrogen 45 mg/dL (7-18) H Creatinine 1.3 MG/DL (0.55-1.30) Estimat Glomerular Filtration Rate > 60 mL/min (>60) Glucose Level 183 MG/DL (74-106) H Calcium Level 9.3 MG/DL (8.5-10.1) Phosphorus Level 2.8 MG/DL (2.5-4.9) Total Bilirubin 0.1 MG/DL (0.2-1.0) L Aspartate Amino Transf (AST/SGOT) 29 U/L (15-37) Alanine Aminotransferase (ALT/SGPT) 42 U/L (12-78) Alkaline Phosphatase 213 U/L (46-116) H Total Protein 9.1 G/DL (6.4-8.2) H Albumin 2.7 G/DL (3.4-5.0) L Globulin 6.4 g/dL Albumin/Globulin Ratio 0.4 (1.0-2.7) L POC Whole Blood Glucose 140 MG/DL (74-106) H Pending Current Medications Medications (Trade) Dose Ordered Sig/Debi Route PRN Reason Start Time Stop Time Status Last Admin Dose Admin Acetaminophen (Tylenol) 650 mg Q6H PRN GT Mild Pain (Pain Scale 1-3) 06/06/20 16:15 07/02/20 16:14 06/10/20 20:51 Amantadine HCl (Symmetrel) 100 mg TWICE A DAY GT 06/06/20 18:00 07/02/20 08:59 06/16/20 08:52 Aspirin (ASA) 81 mg DAILY GT 06/07/20 09:00 07/17/20 08:59 06/16/20 08:52 Dextrose (Dextrose 50%) 25 ml Q30M PRN IV Hypoglycemia 06/11/20 17:45 09/09/20 17:44 Dextrose (Dextrose 50%) 50 ml Q30M PRN IV Hypoglycemia 06/11/20 17:45 09/09/20 17:44 Famotidine (Pepcid) 20 mg BID GT 06/06/20 18:00 09/01/20 17:59 06/16/20 08:52 Heparin Sodium (Porcine) (Heparin 5000 units/ml) 5,000 units EVERY 12 HOURS SUBQ 06/06/20 21:00 07/17/20 08:59 06/16/20 08:54 Insulin Aspart (NovoLOG) Q6HR SUBQ 06/11/20 18:00 09/09/20 17:59 06/16/20 05:51 Insulin Detemir (Levemir) 17 units EVERY 12 HOURS SUBQ 06/16/20 09:00 09/09/20 20:59 06/16/20 09:05 Midodrine (Pro-Amatine) 2.5 mg TIDPRN PRN ORAL blood pressure below 100 sbp 06/13/20 10:15 09/11/20 10:14 Pravastatin Sodium (Pravachol) 20 mg BEDTIME GT 06/06/20 21:00 07/02/20 20:59 06/15/20 22:22 Sennosides (Senokot) 8.6 mg DAILY GT 06/07/20 09:00 07/02/20 08:59 06/16/20 08:52 Blaire Greenwood M.D. Jun 16, 2020 12:18
--- NOTE | 2020-06-16 12:42 | Nephrology Progress Note ---
Assessment/Plan Problem List: (1) Hypernatremia (2) Sepsis (3) History of CVA (cerebrovascular accident) (4) Parkinson disease (5) Feeding by G-tube (6) Dehydration Assessment KELLY, resolving, serum creatinine of 1.9 now down to 1.2 Hypernatremia, dehydration, free water deficit Sepsis Diabetes mellitus [id number] GT feeding Severe protein calorie malnutrition History of CVA History of hypertension Parkinson's disease Plan June 16: Labs reviewed. Renal parameters stable. Serum calcium lowering. Serum sodium lowering. Serum creatinine 1.3. Another 1 L of D5W ordered. June 15: Lab reviewed. Serum sodium high. 1 L D5W given. Serum creatinine 1.4. Pamidronate given yesterday. Continue to monitor serum calcium. June 14: Lab reviewed. Serum calcium high corrected for low serum albumin. 60 mg pamidronate ID given. Continue to monitor renal parameters calcium and phosphorus. June 13: Lab reviewed. Medication list reviewed. Renal parameters stable. Will watch serum calcium and serum sodium. Chemistry panel tomorrow. June 12: Labs reviewed. Stable from renal standpoint of view. June 11: Labs reviewed. Stable renal parameters. June 10: Lab reviewed. Serum potassium normalized. Will give 1 L of D5W for high serum sodium. Continue per consultants. June 09: Labs reviewed. Discussed with RN. Serum potassium elevated. Suspect hemolysis. Will repeat serum potassium. DC all potassium supplements. June 08: Serum sodium higher. Will give 1 L of D5W. Renal parameters stable. Continue to monitor electrolytes. Continue per consultants. June 07: 1 bolus of D5W. Renal parameters stable. Serum sodium slightly high. Stable from renal standpoint of view. June 06: We will again discontinue the IV ordered. Stable from renal standpoint of view. Will start midodrine for low blood pressure. June 05: DC IV fluid. Potassium supplement given. Stable from renal standpoint to view. June 04: Potassium and magnesium supplement IV given, stable from renal standpoint of view. IV fluid D5W Monitor electrolytes Monitor renal parameters Hold blood pressure medication since blood pressure low Per orders, per consultants Subjective ROS Limited/Unobtainable: No Constitutional: Reports: malaise Objective Objective Last 24 Hour Vital Signs Date Time Temp Pulse Resp B/P (MAP) Pulse Ox O2 Delivery O2 Flow Rate FiO2 06/16/20 12:00 98.4 100 19 121/78 (92) 97 06/16/20 09:00 Room Air 06/16/20 08:00 97.6 106 20 118/76 (90) 95 06/16/20 04:00 98.9 105 18 113/65 (81) 96 06/16/20 00:00 98.4 100 18 131/74 (93) 95 06/15/20 21:00 Room Air 06/15/20 20:00 98.6 103 18 128/77 (94) 95 06/15/20 16:00 98.4 103 18 117/76 (90) 96 Intake and Output 06/15/20 06/16/20 19:00 07:00 Intake Total 160 ml 1220 ml Output Total 800 ml 600 ml Balance -640 ml 620 ml Free Water 100 ml 500 ml Tube Feeding 60 ml 720 ml Output Urine Total 800 ml 600 ml # Voids 1 Current Medications Medications (Trade) Dose Ordered Sig/Debi Route PRN Reason Start Time Stop Time Status Last Admin Dose Admin Acetaminophen (Tylenol) 650 mg Q6H PRN GT Mild Pain (Pain Scale 1-3) 06/06/20 16:15 07/02/20 16:14 06/10/20 20:51 Amantadine HCl (Symmetrel) 100 mg TWICE A DAY GT 06/06/20 18:00 07/02/20 08:59 06/16/20 08:52 Aspirin (ASA) 81 mg DAILY GT 06/07/20 09:00 07/17/20 08:59 06/16/20 08:52 Dextrose (Dextrose 50%) 25 ml Q30M PRN IV Hypoglycemia 06/11/20 17:45 09/09/20 17:44 Dextrose (Dextrose 50%) 50 ml Q30M PRN IV Hypoglycemia 06/11/20 17:45 09/09/20 17:44 Famotidine (Pepcid) 20 mg BID GT 06/06/20 18:00 09/01/20 17:59 06/16/20 08:52 Heparin Sodium (Porcine) (Heparin 5000 units/ml) 5,000 units EVERY 12 HOURS SUBQ 06/06/20 21:00 07/17/20 08:59 06/16/20 08:54 Insulin Aspart (NovoLOG) Q6HR SUBQ 06/11/20 18:00 09/09/20 17:59 06/16/20 12:23 Insulin Detemir (Levemir) 17 units EVERY 12 HOURS SUBQ 06/16/20 09:00 09/09/20 20:59 06/16/20 09:05 Midodrine (Pro-Amatine) 2.5 mg TIDPRN PRN ORAL blood pressure below 100 sbp 06/13/20 10:15 09/11/20 10:14 Pravastatin Sodium (Pravachol) 20 mg BEDTIME GT 06/06/20 21:00 07/02/20 20:59 06/15/20 22:22 Sennosides (Senokot) 8.6 mg DAILY GT 06/07/20 09:00 07/02/20 08:59 06/16/20 08:52 Laboratory Tests 06/16/20 08:20: Sodium Level 157H, Potassium Level 4.3, Chloride Level 116H, Carbon Dioxide Level 35H, Anion Gap 6, Blood Urea Nitrogen 45H, Creatinine 1.3, Estimat Glomerular Filtration Rate > 60, Glucose Level 183H, Calcium Level 9.3, Phosphorus Level 2.8, Total Bilirubin 0.1L, Aspartate Amino Transf (AST/SGOT) 29 , Alanine Aminotransferase (ALT/SGPT) 42, Alkaline Phosphatase 213H, Total Protein 9.1H, Albumin 2.7L, Globulin 6.4, Albumin/Globulin Ratio 0.4L 06/16/20 08:57: POC Whole Blood Glucose 140H 06/16/20 12:12: POC Whole Blood Glucose [Pending] Height (Feet): 5 Height (Inches): 5.00 Weight (Pounds): 123 General Appearance: no apparent distress Cardiovascular: normal rate Respiratory/Chest: decreased breath sounds Abdomen: soft Objective No change Eddie Nelson MD Jun 16, 2020 12:42
[2020-06-16 16:00] VITALS: BP 118/75
--- NOTE | 2020-06-16 19:40 | NUR ---
HAND-OFF: Report given to LUCIA.
--- NOTE | 2020-06-16 19:43 | Pulmonology Progress Note ---
Subjective ROS Limited/Unobtainable: Yes Constitutional: Reports: no symptoms, anorexia HEENT: Repors: no symptoms Allergies: Coded Allergies: No Known Allergies (Unverified , 08/27/19) All Systems: reviewed and negative except above Objective Last 24 Hour Vital Signs Date Time Temp Pulse Resp B/P (MAP) Pulse Ox O2 Delivery O2 Flow Rate FiO2 06/16/20 16:00 97.3 99 19 118/75 (89) 96 06/16/20 12:00 98.4 100 19 121/78 (92) 97 06/16/20 09:00 Room Air 06/16/20 08:00 97.6 106 20 118/76 (90) 95 06/16/20 04:00 98.9 105 18 113/65 (81) 96 06/16/20 00:00 98.4 100 18 131/74 (93) 95 06/15/20 21:00 Room Air 06/15/20 20:00 98.6 103 18 128/77 (94) 95 Intake and Output 06/15/20 06/16/20 19:00 07:00 Intake Total 160 ml 1220 ml Output Total 800 ml 600 ml Balance -640 ml 620 ml Free Water 100 ml 500 ml Tube Feeding 60 ml 720 ml Output Urine Total 800 ml 600 ml # Voids 1 General Appearance: cachetic HEENT: normocephalic, atraumatic Respiratory: chest wall non-tender, normal breath sounds Cardiovascular: normal peripheral pulses, normal rate Genitourinary: normal external genitalia Extremities: no clubbing Skin: no lesions 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 Lymphatic: no neck adenopathy Laboratory Tests 06/16/20 08:20: Sodium Level 157H, Potassium Level 4.3, Chloride Level 116H, Carbon Dioxide Level 35H, Anion Gap 6, Blood Urea Nitrogen 45H, Creatinine 1.3, Estimat Glomerular Filtration Rate > 60, Glucose Level 183H, Calcium Level 9.3, Phosphorus Level 2.8, Total Bilirubin 0.1L, Aspartate Amino Transf (AST/SGOT) 29 , Alanine Aminotransferase (ALT/SGPT) 42, Alkaline Phosphatase 213H, Total Protein 9.1H, Albumin 2.7L, Globulin 6.4, Albumin/Globulin Ratio 0.4L 06/16/20 08:57: POC Whole Blood Glucose 140H 06/16/20 12:12: POC Whole Blood Glucose [Pending] Current Medications Medications (Trade) Dose Ordered Sig/Debi Route PRN Reason Start Time Stop Time Status Last Admin Dose Admin Acetaminophen (Tylenol) 650 mg Q6H PRN GT Mild Pain (Pain Scale 1-3) 06/06/20 16:15 07/02/20 16:14 06/10/20 20:51 Amantadine HCl (Symmetrel) 100 mg TWICE A DAY GT 06/06/20 18:00 07/02/20 08:59 06/16/20 18:00 Aspirin (ASA) 81 mg DAILY GT 06/07/20 09:00 07/17/20 08:59 06/16/20 08:52 Dextrose (Dextrose 50%) 25 ml Q30M PRN IV Hypoglycemia 06/11/20 17:45 09/09/20 17:44 Dextrose (Dextrose 50%) 50 ml Q30M PRN IV Hypoglycemia 06/11/20 17:45 09/09/20 17:44 Famotidine (Pepcid) 20 mg BID GT 06/06/20 18:00 09/01/20 17:59 06/16/20 18:00 Heparin Sodium (Porcine) (Heparin 5000 units/ml) 5,000 units EVERY 12 HOURS SUBQ 06/06/20 21:00 07/17/20 08:59 06/16/20 08:54 Insulin Aspart (NovoLOG) Q6HR SUBQ 06/11/20 18:00 09/09/20 17:59 06/16/20 18:00 Insulin Detemir (Levemir) 17 units EVERY 12 HOURS SUBQ 06/16/20 09:00 09/09/20 20:59 06/16/20 09:05 Midodrine (Pro-Amatine) 2.5 mg TIDPRN PRN ORAL blood pressure below 100 sbp 06/13/20 10:15 09/11/20 10:14 Pravastatin Sodium (Pravachol) 20 mg BEDTIME GT 06/06/20 21:00 07/02/20 20:59 06/15/20 22:22 Sennosides (Senokot) 8.6 mg DAILY GT 06/07/20 09:00 07/02/20 08:59 06/16/20 08:52 Assessment/Plan Problems: (1) Sepsis (2) Multiple drug resistant organism (MDRO) culture positive (3) Diabetes mellitus (4) Feeding by G-tube (5) Severe protein-calorie malnutrition (6) Parkinson disease (7) History of hypertension (8) History of CVA (cerebrovascular accident) Assessment/Plan renal function fluctuating electrolytes fluctuating Improving ronquillo culture, Urine has proteus,,MDR COVID Negative iv fluids renal studies renal function improving urine electrolytes. sliding scale Latanya Mckeon MD Jun 16, 2020 19:43
--- NOTE | 2020-06-16 19:48 | NUR ---
NURSE NOTES: RECEIVED PATIENT LYING IN BED,EYES OPEN, UNABLE TO VERBALIZE NEEDS, ALL NEEDS ANTICIPATED AND MET BY NURSING STAFF. HEAD OF BED ELEVATED AT ALL TIMES DURING FEEDING/ASPIRATION PRECAUTIONS OBSERVED. IV INTACT TO LEFT FOREARM,GAUGE 24, WRAPPED WITH KERLEX. NO SIGNS AND SYMPTOMS OF ACUTE CARDIO RESPIRATORY DISTRESS/SHORTNESS OF BREATH, NO PERIPHERAL EDEMA NOTED. TOLERATING G TUBE FEEDING, NO GASTRIC RESIDUAL ASPIRATED. DRESSINGS INTACT TO BILATERAL HIPS/SACRAL/HEELS/ANKLES, REPOSITIONED FOR COMFORT/PRESSURE RELIEF, TOLERATED WELL. SIDE RAILS UP X3, BED IN LOWEST POSITION FOR SAFETY, FREQUENT ROUNDING FOR SAFETY/NEEDS. NAD.
[2020-06-16 20:00] VITALS: BP 139/72
--- NOTE | 2020-06-16 23:02 | Internal Med Progress Note ---
Subjective Physician Name Cirilo Rome Attending Physician Cirilo Rome MD Current Medications Medications (Trade) Dose Ordered Sig/Debi Route PRN Reason Start Time Stop Time Status Last Admin Dose Admin Acetaminophen (Tylenol) 650 mg Q6H PRN GT Mild Pain (Pain Scale 1-3) 06/06/20 16:15 07/02/20 16:14 06/10/20 20:51 Amantadine HCl (Symmetrel) 100 mg TWICE A DAY GT 06/06/20 18:00 07/02/20 08:59 06/16/20 18:00 Aspirin (ASA) 81 mg DAILY GT 06/07/20 09:00 07/17/20 08:59 06/16/20 08:52 Dextrose (Dextrose 50%) 25 ml Q30M PRN IV Hypoglycemia 06/11/20 17:45 09/09/20 17:44 Dextrose (Dextrose 50%) 50 ml Q30M PRN IV Hypoglycemia 06/11/20 17:45 09/09/20 17:44 Famotidine (Pepcid) 20 mg BID GT 06/06/20 18:00 09/01/20 17:59 06/16/20 18:00 Heparin Sodium (Porcine) (Heparin 5000 units/ml) 5,000 units EVERY 12 HOURS SUBQ 06/06/20 21:00 07/17/20 08:59 06/16/20 21:28 Insulin Aspart (NovoLOG) Q6HR SUBQ 06/11/20 18:00 09/09/20 17:59 06/16/20 18:00 Insulin Detemir (Levemir) 17 units EVERY 12 HOURS SUBQ 06/16/20 09:00 09/09/20 20:59 06/16/20 21:28 Midodrine (Pro-Amatine) 2.5 mg TIDPRN PRN ORAL blood pressure below 100 sbp 06/13/20 10:15 09/11/20 10:14 Pravastatin Sodium (Pravachol) 20 mg BEDTIME GT 06/06/20 21:00 07/02/20 20:59 06/16/20 21:25 Sennosides (Senokot) 8.6 mg DAILY GT 06/07/20 09:00 07/02/20 08:59 06/16/20 08:52 Allergies: Coded Allergies: No Known Allergies (Unverified , 08/27/19) Subjective awake, alert, responsive, no acute distress. renal function stable. Objective Last Vital Signs Date Time Temp Pulse Resp B/P (MAP) Pulse Ox O2 Delivery O2 Flow Rate FiO2 06/16/20 20:00 97.6 95 20 139/72 (94) 97 06/16/20 09:00 Room Air Laboratory Tests Test 06/16/20 08:20 06/16/20 08:57 06/16/20 12:12 Sodium Level 157 MMOL/L (136-145) H Potassium Level 4.3 MMOL/L (3.5-5.1) Chloride Level 116 MMOL/L (98-107) H Carbon Dioxide Level 35 MMOL/L (21-32) H Anion Gap 6 mmol/L (5-15) Blood Urea Nitrogen 45 mg/dL (7-18) H Creatinine 1.3 MG/DL (0.55-1.30) Estimat Glomerular Filtration Rate > 60 mL/min (>60) Glucose Level 183 MG/DL (74-106) H Calcium Level 9.3 MG/DL (8.5-10.1) Phosphorus Level 2.8 MG/DL (2.5-4.9) Total Bilirubin 0.1 MG/DL (0.2-1.0) L Aspartate Amino Transf (AST/SGOT) 29 U/L (15-37) Alanine Aminotransferase (ALT/SGPT) 42 U/L (12-78) Alkaline Phosphatase 213 U/L (46-116) H Total Protein 9.1 G/DL (6.4-8.2) H Albumin 2.7 G/DL (3.4-5.0) L Globulin 6.4 g/dL Albumin/Globulin Ratio 0.4 (1.0-2.7) L POC Whole Blood Glucose 140 MG/DL (74-106) H Pending Intake and Output 06/15/20 06/16/20 19:00 07:00 Intake Total 160 ml 1220 ml Output Total 800 ml 600 ml Balance -640 ml 620 ml Free Water 100 ml 500 ml Tube Feeding 60 ml 720 ml Output Urine Total 800 ml 600 ml # Voids 1 Objective General: No acute distress, awake and alert HEENT: NCAT, sclera anicteric, PERRL, EOMI. Neck: Supple, no significant jugular venous distention, Lungs: Fair inspiratory effort, clear to auscultation bilaterally, no Wheeze or Rales. Heart: Regular rate and rhythm, normal S1/S2, no murmurs Abdomen: soft, nontender, nondistended. Normoactive bowel sounds, PEG. Extremities: No Cyanosis , clubbing or edema. Neuro: A&O x 3, Able to move 5/5 upper extremities and 1/5 lower extremities. Skin: warm, no rash. Assessment/Plan Assessment/Plan ASSESSMENT: This is a 79-year-old male with: 1. Hyperglycemia. 2. Hypernatremia. 3. Urinary tract infection=MDR proteus. 4. Diabetes type 2. 5. Hypertension. 6. Hypercholesterolemia. 7. Dysphagia. 8. Parkinson disease. 9. Ulcerative proctitis. 10. Severe Protein-calorie malnutrition. 11. History of sacral decubitus ulcer stage IV. 12. Benign prostatic hypertrophy. 13. Gastroesophageal reflux disease. 14. Metabolic encephalopathy. 15. History of left hip fracture. TREATMENT: 1. Hyperglycemia/diabetes. The patient has been placed on a protocol using NovoLog sliding scale. The patient's blood sugars have been running in 300s. Hyperglycemia may be secondary to urinary tract infection. 2. Urinary tract infection. Urine culture =MDR proteus. results.ID=Dr Oliva 3. Hypertension. Continue amlodipine as above. 4. Hypercholesterolemia. Continue atorvastatin as above. 5. Dysphagia. The patient is status post PEG placement. 6. Parkinson disease. Continue amantadine as above. 7. Ulcerative proctitis. 8. Protein-calorie malnutrition. 9. Sacral decubitus ulcer stage IV. 10. Benign prostatic hypertrophy. Continue tamsulosin as above. 11. Gastroesophageal reflux disease. 12. Metabolic encephalopathy. 13. History of left hip fracture. Abx: Off Tolerate tube feeding @60 cc/hr. CODE STATUS: Full code. DVT prophylaxis: Heparin subcu. Consider discharge plan to SNF. Cirilo Rome MD Jun 16, 2020 23:02
--- NOTE | 2020-06-16 23:30 | NUR ---
NURSE NOTES: WOUND CARE SACRUM, (BILATERAL HIPS/BILATERAL HEELS/PROPHYLAXIS)-
[2020-06-17] VITALS: BP 121/86
[2020-06-17] MEDS: NovoLOG Insulin Flexpen SUBQ SCH ×5 (01:28→23:32)
[2020-06-17 04:00] VITALS: BP 142/64
[2020-06-17 05:52] LABS: BASOPHILS % (AUTO) 2.5 % (0.0-2.0); HEMATOCRIT 40.1 % (42.0-52.0); HEMOGLOBIN 12.2 G/DL (14.2-18.0); LYMPHOCYTES % (AUTO) 32.2 % (20.0-45.0); MEAN CORPUSCULAR VOLUME 100 FL (80-99); NEUTROPHILS % (AUTO) 57.3 % (45.0-75.0); PLATELET COUNT 460 K/UL (150-450); WHITE BLOOD COUNT 8.9 K/UL (4.8-10.8)
--- NOTE | 2020-06-17 06:14 | NUR ---
NURSE NOTES: RESTED WELL, NO SIGNIFICANT CHANGE OF CONDITION NOTED THROUGHOUT THE NIGHT. SAFETY MAINTAINED. NAD.
[2020-06-17 07:27] LABS: ALANINE AMINOTRANSFERASE 42 U/L (12-78); ALBUMIN 2.6 G/DL (3.4-5.0); ALBUMIN/GLOBULIN RATIO 0.4 (1.0-2.7); ALKALINE PHOSPHATASE 203 U/L (46-116); ANION GAP 6 mmol/L (5-15); ASPARTATE AMINO TRANSFERASE 27 U/L (15-37); BILIRUBIN,TOTAL 0.2 MG/DL (0.2-1.0); BLOOD UREA NITROGEN 44 mg/dL (7-18); CARBON DIOXIDE 34 MMOL/L (21-32); CHLORIDE 120 MMOL/L (98-107); CREATININE 1.3 MG/DL (0.55-1.30); PHOSPHORUS 3.3 MG/DL (2.5-4.9); POTASSIUM 4.3 MMOL/L (3.5-5.1); SODIUM 160 MMOL/L (136-145)
--- NOTE | 2020-06-17 07:30 | NUR ---
NURSE HAND-OFF: Important Events on Shift:[UNEVENTFUL NIGHT, TOLERATED GT FEEDING] Patient Status: [BLOOD GLUCOSE 215MG/DL, SS NOVOLOG INSULIN ADM. SUBCUT,TOLERATED WELL, NO ADVERSE REACTION NOTED AFTER 15 MINUTES] Diet: [GT - GLUCERNA 1.5 60ML/HR, OFF 0700/RESUME 1100] Pending Orders: [AML] Pending Results/Labs:[] Pending MD notification:[] Latest Vital Signs: Temperature 97.1, Pulse 107 , B/P 142/64 , Respiratory Rate 20 , O2 SAT 97 , Room Air, O2 Flow Rate 3.0 . Vital Sign Comment: [] Latest Lane Fall Score: 40 Fall Risk: Medium Risk Safety Measures: Call light Within Reach, Bed Alarm Zone 1, Side Rails Side Rails x3, Bed position Low and Locked. Fall Precautions: Yellow Socks Yellow Gown Report given to [JOHNNY WATSON].
--- NOTE | 2020-06-17 07:48 | NUR ---
NURSE NOTES: pt is asleep and arousable in bed. no acute distress noted. respiration is even and unlabored on room air. HOB elevated. Pt denies any kind of pain and discomfort at this time. no fever and chills noted, call light is within reach, will continue to monitor.
[2020-06-17 08:00] VITALS: BP 138/66
[2020-06-17] MEDS: Aspirin Baby 81mg GT SCH (09:17)
[2020-06-17] MEDS: Sennosides 8.6mg tab GT SCH (09:17)
[2020-06-17] MEDS: Amantadine 100mg cap GT SCH ×2 (09:17→18:27)
[2020-06-17] MEDS: Heparin 5000 units/ml inj SUBQ SCH ×2 (09:19→20:46)
[2020-06-17] MEDS: Levemir Flexpen SUBQ SCH ×2 (10:02→20:42)
--- NOTE | 2020-06-17 11:45 | NUR ---
RD ASSESSMENT & RECOMMENDATIONS SEE CARE ACTIVITY FOR COMPLETE ASSESSMENT DAILY ESTIMATED NEEDS: Needs based on Sepsis, DM/ 54kg 30-40 kcals/kg 1297-3711 total kcals 1.25-2 g protein/kg 68-108 g total protein 25-35ml/kcal mL/kg 1349-6212 total fluid mLs NUTRITION DIAGNOSIS: * Swallowing difficulty R/T dysphagia, as evidenced by Pt is GT dep. CURRENT TF:Glucerna 1.5 @ 60ml/hr x20 hrs ENTERAL NUTRITION RECOMMENDATIONS: Glucerna 1.5 @ 60ml/hr x 20 hrs to provide 1200ml, 1800kcal, 99g prot, 911ml free water, 160g carbs * Maintain at current rate-> HOLD FOR 4 HRS / DAY. * HOB over 30 degrees, increased water flushes * TF at goal meets 100% est needs. ADDITIONAL RECOMMENDATIONS: * Calibrated bedscale wt for accurate CBW * Monitor lytes daily w/ TF, replete as needed * Monitor BGs, need for adjust insulin: Levemir increased -> Rec increase H2O flushes instead of added D5 for BG control -> Water flushes w/ TF-> rec 150ml q4 hrs w/out IVF * Wound healing: add DOMENICA BID * Watch K w/ change of TF -> now wnl
--- NOTE | 2020-06-17 11:57 | Nephrology Progress Note ---
Assessment/Plan Problem List: (1) Hypernatremia (2) Sepsis (3) History of CVA (cerebrovascular accident) (4) Parkinson disease (5) Feeding by G-tube (6) Dehydration Assessment KELLY, resolving, serum creatinine of 1.9 now down to 1.2 Hypernatremia, dehydration, free water deficit Sepsis Diabetes mellitus [id number] GT feeding Severe protein calorie malnutrition History of CVA History of hypertension Parkinson's disease Plan June 17: Lab reviewed. Sodium 160. Creatinine 1.3. Calcium lower at 9. Will continue D5W. June 16: Labs reviewed. Renal parameters stable. Serum calcium lowering. Serum sodium lowering. Serum creatinine 1.3. Another 1 L of D5W ordered. June 15: Lab reviewed. Serum sodium high. 1 L D5W given. Serum creatinine 1.4. Pamidronate given yesterday. Continue to monitor serum calcium. June 14: Lab reviewed. Serum calcium high corrected for low serum albumin. 60 mg pamidronate ID given. Continue to monitor renal parameters calcium and phosphorus. June 13: Lab reviewed. Medication list reviewed. Renal parameters stable. Will watch serum calcium and serum sodium. Chemistry panel tomorrow. June 12: Labs reviewed. Stable from renal standpoint of view. June 11: Labs reviewed. Stable renal parameters. June 10: Lab reviewed. Serum potassium normalized. Will give 1 L of D5W for high serum sodium. Continue per consultants. June 09: Labs reviewed. Discussed with RN. Serum potassium elevated. Suspect hemolysis. Will repeat serum potassium. DC all potassium supplements. June 08: Serum sodium higher. Will give 1 L of D5W. Renal parameters stable. Continue to monitor electrolytes. Continue per consultants. June 07: 1 bolus of D5W. Renal parameters stable. Serum sodium slightly high. Stable from renal standpoint of view. June 06: We will again discontinue the IV ordered. Stable from renal standpoint of view. Will start midodrine for low blood pressure. June 05: DC IV fluid. Potassium supplement given. Stable from renal standpoint to view. June 04: Potassium and magnesium supplement IV given, stable from renal standpoint of view. IV fluid D5W Monitor electrolytes Monitor renal parameters Hold blood pressure medication since blood pressure low Per orders, per consultants Subjective ROS Limited/Unobtainable: No Constitutional: Reports: malaise Objective Objective Last 24 Hour Vital Signs Date Time Temp Pulse Resp B/P (MAP) Pulse Ox O2 Delivery O2 Flow Rate FiO2 06/17/20 08:00 97.0 100 20 138/66 (90) 98 06/17/20 04:00 97.1 107 20 142/64 (90) 97 06/17/20 00:00 98.4 108 21 121/86 (98) 94 06/16/20 21:00 Room Air 06/16/20 20:00 97.6 95 20 139/72 (94) 97 06/16/20 16:00 97.3 99 19 118/75 (89) 96 06/16/20 12:00 98.4 100 19 121/78 (92) 97 Intake and Output 06/16/20 06/17/20 19:00 07:00 Intake Total 520 ml 760 ml Output Total 900 ml Balance -380 ml 760 ml Free Water 400 ml 100 ml Tube Feeding 120 ml 660 ml Output Urine Total 900 ml Laboratory Tests 06/16/20 12:12: POC Whole Blood Glucose [Pending] 06/17/20 05:30: White Blood Count 8.9, Red Blood Count 4.00L, Hemoglobin 12.2L, Hematocrit 40.1L , Mean Corpuscular Volume 100H, Mean Corpuscular Hemoglobin 30.6, Mean Corpuscular Hemoglobin Concent 30.5L, Red Cell Distribution Width 16.0H, Platelet Count 460H, Mean Platelet Volume 9.5, Neutrophils (%) (Auto) 57.3, Lymphocytes (%) (Auto) 32.2, Monocytes (%) (Auto) 7.0, Eosinophils (%) (Auto) 1.0, Basophils (%) (Auto) 2.5H 06/17/20 06:35: Sodium Level 160H, Potassium Level 4.3, Chloride Level 120H, Carbon Dioxide Level 34H, Anion Gap 6, Blood Urea Nitrogen 44H, Creatinine 1.3, Estimat Glomerular Filtration Rate > 60, Glucose Level 238H, Calcium Level 9.0, Phosphorus Level 3.3, Magnesium Level 3.3H, Total Bilirubin 0.2, Aspartate Amino Transf (AST/SGOT) 27, Alanine Aminotransferase (ALT/SGPT) 42, Alkaline Phosphatase 203H, Total Protein 8.9H, Albumin 2.6L, Globulin 6.3, Albumin/ Globulin Ratio 0.4L Height (Feet): 5 Height (Inches): 5.00 Weight (Pounds): 123 General Appearance: no apparent distress Cardiovascular: tachycardia - Rate 90s Respiratory/Chest: decreased breath sounds Abdomen: soft Objective No change Eddie Nelson MD Jun 17, 2020 11:57
[2020-06-17 12:00] VITALS: BP 114/72
--- NOTE | 2020-06-17 12:58 | NUR ---
DISCHARGE PLANNING PATIENT HAS BEEN REFEREED FOR [facility]ACH KARTIK DAVIDSON P: [phone] F: [phone] Addendum: 06/17/20 at 1547 by KENNETH MONTE LVN LVN S/W JOSE AT [facility] REFERRAL IS BEING PROCESSED AND FINANCIALS ARE BEING VERIFIED. CM TO FOLLOW UP ON WEEKEND WITH CASSANDRA @ [phone] ON STATUS.
--- NOTE | 2020-06-17 13:02 | Surgery Progress Note ---
Surgery Progress Note Subjective Additional Comments no acute events comfortable improving no n/v/f/c no complaints Objective Last 24 Hour Vital Signs Date Time Temp Pulse Resp B/P (MAP) Pulse Ox O2 Delivery O2 Flow Rate FiO2 06/17/20 12:00 97.4 101 19 114/72 (86) 98 06/17/20 09:00 Room Air 06/17/20 08:00 97.0 100 20 138/66 (90) 98 06/17/20 04:00 97.1 107 20 142/64 (90) 97 06/17/20 00:00 98.4 108 21 121/86 (98) 94 06/16/20 21:00 Room Air 06/16/20 20:00 97.6 95 20 139/72 (94) 97 06/16/20 16:00 97.3 99 19 118/75 (89) 96 I&O Intake and Output 06/16/20 06/17/20 19:00 07:00 Intake Total 520 ml 760 ml Output Total 900 ml Balance -380 ml 760 ml Free Water 400 ml 100 ml Tube Feeding 120 ml 660 ml Output Urine Total 900 ml Dressing: other Wound: other Cardiovascular: RSR Respiratory: decreased breath sounds Abdomen: soft, non-tender, present bowel sounds Extremities: no edema, no tenderness, no cyanosis Laboratory Tests Test 06/17/20 05:30 06/17/20 06:35 White Blood Count 8.9 K/UL (4.8-10.8) Red Blood Count 4.00 M/UL (4.70-6.10) L Hemoglobin 12.2 G/DL (14.2-18.0) L Hematocrit 40.1 % (42.0-52.0) L Mean Corpuscular Volume 100 FL (80-99) H Mean Corpuscular Hemoglobin 30.6 PG (27.0-31.0) Mean Corpuscular Hemoglobin Concent 30.5 G/DL (32.0-36.0) L Red Cell Distribution Width 16.0 % (11.6-14.8) H Platelet Count 460 K/UL (150-450) H Mean Platelet Volume 9.5 FL (6.5-10.1) Neutrophils (%) (Auto) 57.3 % (45.0-75.0) Lymphocytes (%) (Auto) 32.2 % (20.0-45.0) Monocytes (%) (Auto) 7.0 % (1.0-10.0) Eosinophils (%) (Auto) 1.0 % (0.0-3.0) Basophils (%) (Auto) 2.5 % (0.0-2.0) H Sodium Level 160 MMOL/L (136-145) H Potassium Level 4.3 MMOL/L (3.5-5.1) Chloride Level 120 MMOL/L (98-107) H Carbon Dioxide Level 34 MMOL/L (21-32) H Anion Gap 6 mmol/L (5-15) Blood Urea Nitrogen 44 mg/dL (7-18) H Creatinine 1.3 MG/DL (0.55-1.30) Estimat Glomerular Filtration Rate > 60 mL/min (>60) Glucose Level 238 MG/DL (74-106) H Calcium Level 9.0 MG/DL (8.5-10.1) Phosphorus Level 3.3 MG/DL (2.5-4.9) Magnesium Level 3.3 MG/DL (1.8-2.4) H Total Bilirubin 0.2 MG/DL (0.2-1.0) Aspartate Amino Transf (AST/SGOT) 27 U/L (15-37) Alanine Aminotransferase (ALT/SGPT) 42 U/L (12-78) Alkaline Phosphatase 203 U/L (46-116) H Total Protein 8.9 G/DL (6.4-8.2) H Albumin 2.6 G/DL (3.4-5.0) L Globulin 6.3 g/dL Albumin/Globulin Ratio 0.4 (1.0-2.7) L Plan Problems: (1) Hypernatremia (2) Dehydration (3) Hip fracture, left (4) Diabetes mellitus (5) History of hypertension (6) Severe protein-calorie malnutrition Assessment & Plan: DAILY ESTIMATED NEEDS: Needs based on Sepsis, DM/ 54kg 30-40 kcals/kg 8768-5384 total kcals 1.25-2 g protein/kg 68-108 g total protein 25-35ml/kcal mL/kg 5440-6852 total fluid mLs NUTRITION DIAGNOSIS: * Swallowing difficulty R/T dysphagia, as evidenced by Pt is GT dep. (CURRENT TF: Glucerna 1.5 @ 30ml/hr x 24 hrs) ENTERAL NUTRITION RECOMMENDATIONS: Glucerna 1.5 @ 60ml/hr x 20 hrs to provide 1200ml, 1800kcal, 99g prot, 911ml free water, 160g carbs * Rec to INCREASE TF GOAL to 60ml/hr for 20 hrs * HOB over 30 degrees, increased water flushes * TF at goal meets 100% est needs. -------- ADDITIONAL RECOMMENDATIONS: * Calibrated bedscale wt for accurate CBW * Monitor lytes daily w/ TF, replete as needed * Pt may require increase in insulin regimen for improved BG W/ continuous TF infusion * Wound healing: DOMENICA BID, F/up w/ WC eval . (7) Acute encephalopathy (8) Pressure Ulcer Of Sacral Region, Unstageable Assessment & Plan: Pt presented on admission with purple and indurated area at Sacrococcygeal at previously compromised site(L)7cm x (W)3cm.Surrounding Hyperpigmentation at Sacrum. Non-Blanching erythema without fluctuance R heel. Non-Blanching erythema with delineated margins L heel (L)4.5cm x (W)5.5cm. L Heel is boggy . Tx.Plan: Apply Moisture Barrier Paste to Sacrum. Cover with Optifoam drsgs. Change every 3 days and prn. Apply Cavilon Skin Barrier to R and L trochanter. Cover each site with Optifoam drsgs. Change every 7 days and prn. Apply Cavilon Skin Barrier to each heel and malleoli. Cover each site with Optifoam drsgs. Change every 7 days and prn. Reposition at least every 2hours or as tolerated. Off-load heels with pillow. improving cont current care tube site okay (9) Feeding by G-tube (10) Abdominal distention (11) Multiple drug resistant organism (MDRO) culture positive (12) Sepsis (13) History of CVA (cerebrovascular accident) (14) Parkinson disease James Breen Jun 17, 2020 13:02
--- NOTE | 2020-06-17 13:38 | Pulmonology Progress Note ---
Subjective ROS Limited/Unobtainable: Yes Constitutional: Reports: no symptoms, anorexia HEENT: Repors: no symptoms Allergies: Coded Allergies: No Known Allergies (Unverified , 08/27/19) All Systems: reviewed and negative except above Objective Last 24 Hour Vital Signs Date Time Temp Pulse Resp B/P (MAP) Pulse Ox O2 Delivery O2 Flow Rate FiO2 06/17/20 12:00 97.4 101 19 114/72 (86) 98 06/17/20 09:00 Room Air 06/17/20 08:00 97.0 100 20 138/66 (90) 98 06/17/20 04:00 97.1 107 20 142/64 (90) 97 06/17/20 00:00 98.4 108 21 121/86 (98) 94 06/16/20 21:00 Room Air 06/16/20 20:00 97.6 95 20 139/72 (94) 97 06/16/20 16:00 97.3 99 19 118/75 (89) 96 Intake and Output 06/16/20 06/17/20 19:00 07:00 Intake Total 520 ml 760 ml Output Total 900 ml Balance -380 ml 760 ml Free Water 400 ml 100 ml Tube Feeding 120 ml 660 ml Output Urine Total 900 ml General Appearance: cachetic HEENT: normocephalic, atraumatic Respiratory: chest wall non-tender, normal breath sounds Cardiovascular: normal peripheral pulses, normal rate Genitourinary: normal external genitalia Extremities: no clubbing Skin: no lesions Neurologic: business management consultant II-XII grossly normal Lymphatic: no neck adenopathy Laboratory Tests 06/17/20 05:30: White Blood Count 8.9, Red Blood Count 4.00L, Hemoglobin 12.2L, Hematocrit 40.1L , Mean Corpuscular Volume 100H, Mean Corpuscular Hemoglobin 30.6, Mean Corpuscular Hemoglobin Concent 30.5L, Red Cell Distribution Width 16.0H, Platelet Count 460H, Mean Platelet Volume 9.5, Neutrophils (%) (Auto) 57.3, Lymphocytes (%) (Auto) 32.2, Monocytes (%) (Auto) 7.0, Eosinophils (%) (Auto) 1.0, Basophils (%) (Auto) 2.5H 06/17/20 06:35: Sodium Level 160H, Potassium Level 4.3, Chloride Level 120H, Carbon Dioxide Level 34H, Anion Gap 6, Blood Urea Nitrogen 44H, Creatinine 1.3, Estimat Glomerular Filtration Rate > 60, Glucose Level 238H, Calcium Level 9.0, Phosphorus Level 3.3, Magnesium Level 3.3H, Total Bilirubin 0.2, Aspartate Amino Transf (AST/SGOT) 27, Alanine Aminotransferase (ALT/SGPT) 42, Alkaline Phosphatase 203H, Total Protein 8.9H, Albumin 2.6L, Globulin 6.3, Albumin/ Globulin Ratio 0.4L Current Medications Medications (Trade) Dose Ordered Sig/Debi Route PRN Reason Start Time Stop Time Status Last Admin Dose Admin Acetaminophen (Tylenol) 650 mg Q6H PRN GT Mild Pain (Pain Scale 1-3) 06/06/20 16:15 07/02/20 16:14 06/10/20 20:51 Amantadine HCl (Symmetrel) 100 mg TWICE A DAY GT 06/06/20 18:00 07/02/20 08:59 06/17/20 09:17 Aspirin (ASA) 81 mg DAILY GT 06/07/20 09:00 07/17/20 08:59 06/17/20 09:17 Dextrose 1,000 ml @ 100 mls/hr Q10H IV 06/17/20 09:00 07/17/20 08:59 06/17/20 09:20 Dextrose (Dextrose 50%) 25 ml Q30M PRN IV Hypoglycemia 06/11/20 17:45 09/09/20 17:44 Dextrose (Dextrose 50%) 50 ml Q30M PRN IV Hypoglycemia 06/11/20 17:45 09/09/20 17:44 Famotidine (Pepcid) 20 mg BID GT 06/06/20 18:00 09/01/20 17:59 06/17/20 09:17 Heparin Sodium (Porcine) (Heparin 5000 units/ml) 5,000 units EVERY 12 HOURS SUBQ 06/06/20 21:00 07/17/20 08:59 06/17/20 09:19 Insulin Aspart (NovoLOG) Q6HR SUBQ 06/11/20 18:00 09/09/20 17:59 06/17/20 12:26 Insulin Detemir (Levemir) 17 units EVERY 12 HOURS SUBQ 06/16/20 09:00 09/09/20 20:59 9/4/20 10:02 Midodrine (Pro-Amatine) 2.5 mg TIDPRN PRN ORAL blood pressure below 100 sbp 06/13/20 10:15 09/11/20 10:14 Pravastatin Sodium (Pravachol) 20 mg BEDTIME GT 06/06/20 21:00 07/02/20 20:59 06/16/20 21:25 Sennosides (Senokot) 8.6 mg DAILY GT 06/07/20 09:00 07/02/20 08:59 06/17/20 09:17 Assessment/Plan Problems: (1) Sepsis (2) Multiple drug resistant organism (MDRO) culture positive (3) Hypernatremia (4) History of CVA (cerebrovascular accident) (5) History of hypertension (6) Parkinson disease (7) Severe protein-calorie malnutrition (8) Feeding by G-tube (9) Diabetes mellitus Assessment/Plan Ns still high still tachy, ? etiology? electrolytes fluctuating Improving ronquillo culture, Urine has proteus,,MDR COVID Negative iv fluids renal studies renal function improving urine electrolytes. sliding scale Latanya Mckeon MD Jun 17, 2020 13:38
--- NOTE | 2020-06-17 15:37 | NUR ---
CASE MANAGEMENT:REVIEW SI;SEPSIS. MDRO. ACUTE KIDNEY INJURY. HYPERNATREMIA. 98.4 108 21 142/64 94% ON RA PLT 460 NA 160 CL 120 CO2 34 BUN 44 BG 238 MAG 202 ALP 203 ALB 2.6 IS;INSULIN LEVEMIR SUBQ Q12 INSULIN NOVOLOG SUBQ Q6 HEPARIN SUBQ Q12 SYMMETREL GT BID PEPCID GT BID MED SURG STATUS DCP;FROM [facility] PLAN; LTACH REFERRAL
[2020-06-17 16:00] VITALS: BP 120/77
--- NOTE | 2020-06-17 16:10 | Infectious Diseases Prog Note ---
Assessment/Plan 79yo M with: Fever, SP Leukocytosis, SP KELLY, improving UTI, sp rx 06/01 UA w/ pyuria, UCx + P Mirabilis ESBL 06/01 BCx Neg 06/01 CXR: No acute process COVID rapid test neg H/o ESBL Proteus in UCx in Oct 2019 Renal US w/ BL cysts PMH: DM2 Parkinson's dementia Bedridden G-tube Plan: Cont to monitor off abx 06/10 SP audra #8 06/02 SP erta #1 06/01 SP cefepime, vanco, flagyl x1 in ED Monitor CBC/BMP Trend hemodynamics, temp curve discharge planing D/w RN Thank you for this consult. [facility] will continue to follow. Subjective Allergies: Coded Allergies: No Known Allergies (Unverified , 08/27/19) afebrile no leuckocytosis Objective Last 24 Hour Vital Signs Date Time Temp Pulse Resp B/P (MAP) Pulse Ox O2 Delivery O2 Flow Rate FiO2 06/17/20 12:00 97.4 101 19 114/72 (86) 98 06/17/20 09:00 Room Air 06/17/20 08:00 97.0 100 20 138/66 (90) 98 06/17/20 04:00 97.1 107 20 142/64 (90) 97 06/17/20 00:00 98.4 108 21 121/86 (98) 94 06/16/20 21:00 Room Air 06/16/20 20:00 97.6 95 20 139/72 (94) 97 Height (Feet): 5 Height (Inches): 5.00 Weight (Pounds): 123 GENERAL: no apparent distress. CHEST: Lungs are clear to auscultation bilaterally without wheezes or rales. CARDIOVASCULAR: regular rhythm. S1, S2 are normal without murmurs, rubs, or gallops. ABDOMEN: Soft, nontender, and nondistended. Positive bowel sounds. No evidence of hepatosplenomegaly. EXTREMITIES: Negative for clubbing, cyanosis, or edema. Laboratory Tests Test 06/17/20 05:30 06/17/20 06:35 White Blood Count 8.9 K/UL (4.8-10.8) Red Blood Count 4.00 M/UL (4.70-6.10) L Hemoglobin 12.2 G/DL (14.2-18.0) L Hematocrit 40.1 % (42.0-52.0) L Mean Corpuscular Volume 100 FL (80-99) H Mean Corpuscular Hemoglobin 30.6 PG (27.0-31.0) Mean Corpuscular Hemoglobin Concent 30.5 G/DL (32.0-36.0) L Red Cell Distribution Width 16.0 % (11.6-14.8) H Platelet Count 460 K/UL (150-450) H Mean Platelet Volume 9.5 FL (6.5-10.1) Neutrophils (%) (Auto) 57.3 % (45.0-75.0) Lymphocytes (%) (Auto) 32.2 % (20.0-45.0) Monocytes (%) (Auto) 7.0 % (1.0-10.0) Eosinophils (%) (Auto) 1.0 % (0.0-3.0) Basophils (%) (Auto) 2.5 % (0.0-2.0) H Sodium Level 160 MMOL/L (136-145) H Potassium Level 4.3 MMOL/L (3.5-5.1) Chloride Level 120 MMOL/L (98-107) H Carbon Dioxide Level 34 MMOL/L (21-32) H Anion Gap 6 mmol/L (5-15) Blood Urea Nitrogen 44 mg/dL (7-18) H Creatinine 1.3 MG/DL (0.55-1.30) Estimat Glomerular Filtration Rate > 60 mL/min (>60) Glucose Level 238 MG/DL (74-106) H Calcium Level 9.0 MG/DL (8.5-10.1) Phosphorus Level 3.3 MG/DL (2.5-4.9) Magnesium Level 3.3 MG/DL (1.8-2.4) H Total Bilirubin 0.2 MG/DL (0.2-1.0) Aspartate Amino Transf (AST/SGOT) 27 U/L (15-37) Alanine Aminotransferase (ALT/SGPT) 42 U/L (12-78) Alkaline Phosphatase 203 U/L (46-116) H Total Protein 8.9 G/DL (6.4-8.2) H Albumin 2.6 G/DL (3.4-5.0) L Globulin 6.3 g/dL Albumin/Globulin Ratio 0.4 (1.0-2.7) L Current Medications Medications (Trade) Dose Ordered Sig/Debi Route PRN Reason Start Time Stop Time Status Last Admin Dose Admin Acetaminophen (Tylenol) 650 mg Q6H PRN GT Mild Pain (Pain Scale 1-3) 06/06/20 16:15 07/02/20 16:14 06/10/20 20:51 Amantadine HCl (Symmetrel) 100 mg TWICE A DAY GT 06/06/20 18:00 07/02/20 08:59 06/17/20 09:17 Aspirin (ASA) 81 mg DAILY GT 06/07/20 09:00 07/17/20 08:59 06/17/20 09:17 Dextrose 1,000 ml @ 100 mls/hr Q10H IV 06/17/20 09:00 07/17/20 08:59 06/17/20 09:20 Dextrose (Dextrose 50%) 25 ml Q30M PRN IV Hypoglycemia 06/11/20 17:45 09/09/20 17:44 Dextrose (Dextrose 50%) 50 ml Q30M PRN IV Hypoglycemia 06/11/20 17:45 09/09/20 17:44 Famotidine (Pepcid) 20 mg BID GT 06/06/20 18:00 09/01/20 17:59 06/17/20 09:17 Heparin Sodium (Porcine) (Heparin 5000 units/ml) 5,000 units EVERY 12 HOURS SUBQ 06/06/20 21:00 07/17/20 08:59 06/17/20 09:19 Insulin Aspart (NovoLOG) Q6HR SUBQ 06/11/20 18:00 09/09/20 17:59 06/17/20 12:26 Insulin Detemir (Levemir) 17 units EVERY 12 HOURS SUBQ 06/16/20 09:00 09/09/20 20:59 06/17/20 10:02 Midodrine (Pro-Amatine) 2.5 mg TIDPRN PRN ORAL blood pressure below 100 sbp 06/13/20 10:15 09/11/20 10:14 Pravastatin Sodium (Pravachol) 20 mg BEDTIME GT 06/06/20 21:00 07/02/20 20:59 06/16/20 21:25 Sennosides (Senokot) 8.6 mg DAILY GT 06/07/20 09:00 07/02/20 08:59 06/17/20 09:17 Blaire Greenwood M.D. Jun 17, 2020 16:10
--- NOTE | 2020-06-17 19:24 | NUR ---
NURSE HAND-OFF: Important Events on Shift: STARTED ON D5W Patient Status: AWAKE IN BED Diet: G-TUBE Pending Orders: Pending Results/Labs: Pending MD notification: Latest Vital Signs: Temperature 97.8 , Pulse 98 , B/P 120 /77 , Respiratory Rate 20 , O2 SAT 98 , Room Air, O2 Flow Rate 3.0 . Vital Sign Comment: Latest Lane Fall Score: 40 Fall Risk: Medium Risk Safety Measures: Call light Within Reach, Bed Alarm Zone 1, Side Rails Side Rails x3, Bed position Low and Locked. Fall Precautions: Yellow Socks Yellow Gown Report given to HORACE.
[2020-06-17 20:00] VITALS: BP 119/67
--- NOTE | 2020-06-17 21:12 | Internal Med Progress Note ---
Subjective Physician Name Cirilo Rome Attending Physician Cirilo Rome MD Current Medications Medications (Trade) Dose Ordered Sig/Debi Route PRN Reason Start Time Stop Time Status Last Admin Dose Admin Acetaminophen (Tylenol) 650 mg Q6H PRN GT Mild Pain (Pain Scale 1-3) 06/06/20 16:15 07/02/20 16:14 06/10/20 20:51 Amantadine HCl (Symmetrel) 100 mg TWICE A DAY GT 06/06/20 18:00 07/02/20 08:59 06/17/20 18:27 Aspirin (ASA) 81 mg DAILY GT 06/07/20 09:00 07/17/20 08:59 06/17/20 09:17 Dextrose 1,000 ml @ 100 mls/hr Q10H IV 06/17/20 09:00 07/17/20 08:59 06/17/20 18:32 Dextrose (Dextrose 50%) 25 ml Q30M PRN IV Hypoglycemia 06/11/20 17:45 09/09/20 17:44 Dextrose (Dextrose 50%) 50 ml Q30M PRN IV Hypoglycemia 06/11/20 17:45 09/09/20 17:44 Famotidine (Pepcid) 20 mg BID GT 06/06/20 18:00 09/01/20 17:59 06/17/20 18:27 Heparin Sodium (Porcine) (Heparin 5000 units/ml) 5,000 units EVERY 12 HOURS SUBQ 06/06/20 21:00 07/17/20 08:59 06/17/20 20:46 Insulin Aspart (NovoLOG) Q6HR SUBQ 06/11/20 18:00 09/09/20 17:59 06/17/20 18:25 Insulin Detemir (Levemir) 17 units EVERY 12 HOURS SUBQ 06/16/20 09:00 09/09/20 20:59 06/17/20 20:42 Midodrine (Pro-Amatine) 2.5 mg TIDPRN PRN ORAL blood pressure below 100 sbp 06/13/20 10:15 09/11/20 10:14 Pravastatin Sodium (Pravachol) 20 mg BEDTIME GT 06/06/20 21:00 07/02/20 20:59 06/17/20 20:42 Sennosides (Senokot) 8.6 mg DAILY GT 06/07/20 09:00 07/02/20 08:59 06/17/20 09:17 Allergies: Coded Allergies: No Known Allergies (Unverified , 08/27/19) Subjective awake, alert, responsive, no acute distress. renal function stable. Objective Last Vital Signs Date Time Temp Pulse Resp B/P (MAP) Pulse Ox O2 Delivery O2 Flow Rate FiO2 06/17/20 20:00 97.5 92 20 119/67 (84) 98 06/17/20 09:00 Room Air Laboratory Tests Test 06/17/20 05:30 06/17/20 06:35 White Blood Count 8.9 K/UL (4.8-10.8) Red Blood Count 4.00 M/UL (4.70-6.10) L Hemoglobin 12.2 G/DL (14.2-18.0) L Hematocrit 40.1 % (42.0-52.0) L Mean Corpuscular Volume 100 FL (80-99) H Mean Corpuscular Hemoglobin 30.6 PG (27.0-31.0) Mean Corpuscular Hemoglobin Concent 30.5 G/DL (32.0-36.0) L Red Cell Distribution Width 16.0 % (11.6-14.8) H Platelet Count 460 K/UL (150-450) H Mean Platelet Volume 9.5 FL (6.5-10.1) Neutrophils (%) (Auto) 57.3 % (45.0-75.0) Lymphocytes (%) (Auto) 32.2 % (20.0-45.0) Monocytes (%) (Auto) 7.0 % (1.0-10.0) Eosinophils (%) (Auto) 1.0 % (0.0-3.0) Basophils (%) (Auto) 2.5 % (0.0-2.0) H Sodium Level 160 MMOL/L (136-145) H Potassium Level 4.3 MMOL/L (3.5-5.1) Chloride Level 120 MMOL/L (98-107) H Carbon Dioxide Level 34 MMOL/L (21-32) H Anion Gap 6 mmol/L (5-15) Blood Urea Nitrogen 44 mg/dL (7-18) H Creatinine 1.3 MG/DL (0.55-1.30) Estimat Glomerular Filtration Rate > 60 mL/min (>60) Glucose Level 238 MG/DL (74-106) H Calcium Level 9.0 MG/DL (8.5-10.1) Phosphorus Level 3.3 MG/DL (2.5-4.9) Magnesium Level 3.3 MG/DL (1.8-2.4) H Total Bilirubin 0.2 MG/DL (0.2-1.0) Aspartate Amino Transf (AST/SGOT) 27 U/L (15-37) Alanine Aminotransferase (ALT/SGPT) 42 U/L (12-78) Alkaline Phosphatase 203 U/L (46-116) H Total Protein 8.9 G/DL (6.4-8.2) H Albumin 2.6 G/DL (3.4-5.0) L Globulin 6.3 g/dL Albumin/Globulin Ratio 0.4 (1.0-2.7) L Intake and Output 06/16/20 06/17/20 19:00 07:00 Intake Total 520 ml 760 ml Output Total 900 ml Balance -380 ml 760 ml Free Water 400 ml 100 ml Tube Feeding 120 ml 660 ml Output Urine Total 900 ml Objective General: No acute distress, awake and alert HEENT: NCAT, sclera anicteric, PERRL, EOMI. Neck: Supple, no significant jugular venous distention, Lungs: Fair inspiratory effort, clear to auscultation bilaterally, no Wheeze or Rales. Heart: Regular rate and rhythm, normal S1/S2, no murmurs Abdomen: soft, nontender, nondistended. Normoactive bowel sounds, PEG. Extremities: No Cyanosis , clubbing or edema. Neuro: A&O x 3, Able to move 5/5 upper extremities and 1/5 lower extremities. Skin: warm, no rash. Assessment/Plan Assessment/Plan ASSESSMENT: This is a 79-year-old male with: 1. Hyperglycemia. 2. Hypernatremia. 3. Urinary tract infection=MDR proteus. 4. Diabetes type 2. 5. Hypertension. 6. Hypercholesterolemia. 7. Dysphagia. 8. Parkinson disease. 9. Ulcerative proctitis. 10. Severe Protein-calorie malnutrition. 11. History of sacral decubitus ulcer stage IV. 12. Benign prostatic hypertrophy. 13. Gastroesophageal reflux disease. 14. Metabolic encephalopathy. 15. History of left hip fracture. TREATMENT: 1. Hyperglycemia/diabetes. The patient has been placed on a protocol using NovoLog sliding scale. The patient's blood sugars have been running in 300s. Hyperglycemia may be secondary to urinary tract infection. 2. Urinary tract infection. Urine culture =MDR proteus. results.ID=Dr Oliva 3. Hypertension. Continue amlodipine as above. 4. Hypercholesterolemia. Continue atorvastatin as above. 5. Dysphagia. The patient is status post PEG placement. 6. Parkinson disease. Continue amantadine as above. 7. Ulcerative proctitis. 8. Protein-calorie malnutrition. 9. Sacral decubitus ulcer stage IV. 10. Benign prostatic hypertrophy. Continue tamsulosin as above. 11. Gastroesophageal reflux disease. 12. Metabolic encephalopathy. 13. History of left hip fracture. Abx: Off Tolerate tube feeding @60 cc/hr. CODE STATUS: Full code. DVT prophylaxis: Heparin subcu. Consider discharge plan to SNF. Ciriol Rome MD Jun 17, 2020 21:12
--- NOTE | 2020-06-17 22:56 | NUR ---
NURSE NOTES: received report from francisca taveras. patient is on bed, awake. per darcy" non-verbal but he nods if you talk to him". g tube feeding of glucerna 1.5 at 60 mls/hr x 20 hours; stop feeding at 7am -11am. mckinney catheter draining well on room air . no sob. bed locked and in lowest position. call light and light button within easy reach. kept head of bed elevated. aspiration precautions. turn q2 hours. will continue plan of care.
[2020-06-18] VITALS: BP 108/65
[2020-06-18 04:00] VITALS: BP 102/63
[2020-06-18] MEDS: NovoLOG Insulin Flexpen SUBQ SCH ×3 (05:31→18:01)
--- NOTE | 2020-06-18 07:20 | NUR ---
NURSE HAND-OFF: Important Events on Shift: on tube feeding, mckinney care, Patient Status: stable Diet: tube feedinh; glucerna 1.5 x 60 mls/hr x 20 hours Pending Orders: Pending Results/Labs:pending am labs results Pending MD notification: Latest Vital Signs: Temperature 97.9 , Pulse 98 , B/P 102 /63 , Respiratory Rate 20 , O2 SAT 98 , Room Air, O2 Flow Rate 3.0 . Vital Sign Comment: Latest Lane Fall Score: 40 Fall Risk: Medium Risk Safety Measures: Call light Within Reach, Bed Alarm Zone 1, Side Rails Side Rails x3, Bed position Low and Locked. Fall Precautions: Yellow Socks Yellow Gown Report given to fredo barrios rn.
[2020-06-18 07:25] LABS: BASOPHILS % (AUTO) 1.1 % (0.0-2.0); EOSINOPHILS % (AUTO) 1.7 % (0.0-3.0); HEMATOCRIT 39.3 % (42.0-52.0); HEMOGLOBIN 12.6 G/DL (14.2-18.0); LYMPHOCYTES % (AUTO) 36.2 % (20.0-45.0); MEAN CORPUSCULAR VOLUME 100 FL (80-99); MONOCYTES % (AUTO) 6.6 % (1.0-10.0); NEUTROPHILS % (AUTO) 54.5 % (45.0-75.0); PLATELET COUNT 340 K/UL (150-450); RED BLOOD COUNT 3.94 M/UL (4.70-6.10); RED CELL DISTRIBUTION WIDTH 15.8 % (11.6-14.8); WHITE BLOOD COUNT 8.2 K/UL (4.8-10.8)
--- NOTE | 2020-06-18 07:38 | NUR ---
NURSE NOTES: Report received from JOHNNY Henry. Patient seen to be awake, alert, and oriented x1-2. Seen lying with HOB elevated. On room air, no s/sx of SOB/Distress, no c/o any pain or gi/gu discomfort. GT inplace and intact. IV site located left forearm gauge 24 asymptomatic, inplace and intact. Adams inplace and intact. Bed placed on lowest and locked position, call light placed within reach and will continue to monitor.
[2020-06-18 07:39] LABS: ALANINE AMINOTRANSFERASE 41 U/L (12-78); ALBUMIN 2.4 G/DL (3.4-5.0); ALBUMIN/GLOBULIN RATIO 0.4 (1.0-2.7); ALKALINE PHOSPHATASE 192 U/L (46-116); ANION GAP 7 mmol/L (5-15); ASPARTATE AMINO TRANSFERASE 52 U/L (15-37); BILIRUBIN,TOTAL 0.3 MG/DL (0.2-1.0); BLOOD UREA NITROGEN 38 mg/dL (7-18); CALCIUM 8.6 MG/DL (8.5-10.1); CARBON DIOXIDE 30 MMOL/L (21-32); CHLORIDE 114 MMOL/L (98-107); CREATININE 1.1 MG/DL (0.55-1.30); PHOSPHORUS 2.8 MG/DL (2.5-4.9); SODIUM 151 MMOL/L (136-145)
[2020-06-18 07:42] LABS: POTASSIUM 5.3 MMOL/L (3.5-5.1)
--- NOTE | 2020-06-18 07:55 | NUR ---
NURSE NOTES: Notified Dr. Mckeon of potassium level of 5.3 post dialyis and recommendation from lab to redraw. Orders to notify studio set up worker, Dr. Nelson
[2020-06-18 08:00] VITALS: BP 121/84
[2020-06-18] MEDS: Amantadine 100mg cap GT SCH ×2 (08:44→17:51)
[2020-06-18] MEDS: Aspirin Baby 81mg GT SCH (08:44)
[2020-06-18] MEDS: Sennosides 8.6mg tab GT SCH (08:44)
[2020-06-18] MEDS: Heparin 5000 units/ml inj SUBQ SCH ×2 (08:45→21:00)
[2020-06-18] MEDS: Levemir Flexpen SUBQ SCH ×2 (08:52→20:57)
--- NOTE | 2020-06-18 09:41 | Pulmonology Progress Note ---
Subjective ROS Limited/Unobtainable: Yes Constitutional: Reports: no symptoms, anorexia HEENT: Repors: no symptoms Allergies: Coded Allergies: No Known Allergies (Unverified , 08/27/19) All Systems: reviewed and negative except above Objective Last 24 Hour Vital Signs Date Time Temp Pulse Resp B/P (MAP) Pulse Ox O2 Delivery O2 Flow Rate FiO2 06/18/20 09:00 Room Air 06/18/20 08:00 97.8 88 20 121/84 (96) 97 06/18/20 04:00 97.9 98 20 102/63 (76) 98 06/18/20 00:00 98.1 98 20 108/65 (79) 98 06/17/20 21:00 Room Air 06/17/20 20:00 97.5 92 20 119/67 (84) 98 06/17/20 16:00 97.8 98 20 120/77 (91) 98 06/17/20 12:00 97.4 101 19 114/72 (86) 98 Intake and Output 06/17/20 06/18/20 19:00 07:00 Intake Total 800 ml Output Total 800 ml 600 ml Balance -800 ml 200 ml Free Water 200 ml Tube Feeding 600 ml Output Urine Total 800 ml 600 ml General Appearance: cachetic HEENT: normocephalic, atraumatic Respiratory: chest wall non-tender, normal breath sounds Cardiovascular: normal peripheral pulses, normal rate Abdomen: normal bowel sounds Genitourinary: normal external genitalia Extremities: no clubbing Skin: no lesions Neurologic: sock examiner II-XII grossly normal Lymphatic: no neck adenopathy Laboratory Tests 06/18/20 05:30: White Blood Count 8.2, Red Blood Count 3.94L, Hemoglobin 12.6L, Hematocrit 39.3L , Mean Corpuscular Volume 100H, Mean Corpuscular Hemoglobin 32.1H, Mean Corpuscular Hemoglobin Concent 32.2, Red Cell Distribution Width 15.8H, Platelet Count 340, Mean Platelet Volume 8.5, Neutrophils (%) (Auto) 54.5, Lymphocytes (%) (Auto) 36.2, Monocytes (%) (Auto) 6.6, Eosinophils (%) (Auto) 1.7, Basophils (%) (Auto) 1.1, Erythrocyte Sedimentation Rate [Pending], Sodium Level 151H, Potassium Level 5.3H, Chloride Level 114H, Carbon Dioxide Level 30, Anion Gap 7, Blood Urea Nitrogen 38H, Creatinine 1.1, Estimat Glomerular Filtration Rate > 60, Glucose Level 310H, Calcium Level 8.6, Phosphorus Level 2.8, Magnesium Level 3.2H, Total Bilirubin 0.3, Aspartate Amino Transf (AST/SGOT ) 52H, Alanine Aminotransferase (ALT/SGPT) 41, Alkaline Phosphatase 192H, C- Reactive Protein, Quantitative 2.7H, Total Protein 8.7H, Albumin 2.4L, Globulin 6.3, Albumin/Globulin Ratio 0.4L Current Medications Medications (Trade) Dose Ordered Sig/Debi Route PRN Reason Start Time Stop Time Status Last Admin Dose Admin Acetaminophen (Tylenol) 650 mg Q6H PRN GT Mild Pain (Pain Scale 1-3) 06/06/20 16:15 07/02/20 16:14 06/10/20 20:51 Amantadine HCl (Symmetrel) 100 mg TWICE A DAY GT 06/06/20 18:00 07/02/20 08:59 06/18/20 08:44 Aspirin (ASA) 81 mg DAILY GT 06/07/20 09:00 07/17/20 08:59 06/18/20 08:44 Dextrose 1,000 ml @ 100 mls/hr Q10H IV 06/17/20 09:00 07/17/20 08:59 06/18/20 05:32 Dextrose (Dextrose 50%) 25 ml Q30M PRN IV Hypoglycemia 06/11/20 17:45 09/09/20 17:44 Dextrose (Dextrose 50%) 50 ml Q30M PRN IV Hypoglycemia 06/11/20 17:45 09/09/20 17:44 Famotidine (Pepcid) 20 mg BID GT 06/06/20 18:00 09/01/20 17:59 06/18/20 08:44 Heparin Sodium (Porcine) (Heparin 5000 units/ml) 5,000 units EVERY 12 HOURS SUBQ 06/06/20 21:00 07/17/20 08:59 06/18/20 08:45 Insulin Aspart (NovoLOG) Q6HR SUBQ 06/11/20 18:00 09/09/20 17:59 06/18/20 05:31 Insulin Detemir (Levemir) 17 units EVERY 12 HOURS SUBQ 06/16/20 09:00 09/09/20 20:59 06/18/20 08:52 Midodrine (Pro-Amatine) 2.5 mg TIDPRN PRN ORAL blood pressure below 100 sbp 06/13/20 10:15 09/11/20 10:14 Pravastatin Sodium (Pravachol) 20 mg BEDTIME GT 06/06/20 21:00 07/02/20 20:59 06/17/20 20:42 Sennosides (Senokot) 8.6 mg DAILY GT 06/07/20 09:00 07/02/20 08:59 06/18/20 08:44 Assessment/Plan Problems: (1) Sepsis (2) Multiple drug resistant organism (MDRO) culture positive (3) Hypernatremia (4) History of CVA (cerebrovascular accident) (5) History of hypertension (6) Parkinson disease (7) Severe protein-calorie malnutrition (8) Feeding by G-tube (9) Diabetes mellitus Assessment/Plan Ns still high tachycardia resolved K is slightlly high today electrolytes fluctuating Improving ronquillo culture, Urine has proteus,,MDR COVID Negative iv fluids renal studies renal function improving urine electrolytes. sliding scale Latanya Mckeon MD Jun 18, 2020 09:41
[2020-06-18 10:20] LABS: ANION GAP 7 mmol/L (5-15); BLOOD UREA NITROGEN 34 mg/dL (7-18); CALCIUM 9.3 MG/DL (8.5-10.1); CARBON DIOXIDE 34 MMOL/L (21-32); CHLORIDE 112 MMOL/L (98-107); CREATININE 1.1 MG/DL (0.55-1.30); POTASSIUM 3.8 MMOL/L (3.5-5.1); SODIUM 153 MMOL/L (136-145)
--- NOTE | 2020-06-18 10:48 | Surgery Progress Note ---
Surgery Progress Note Subjective Symptoms: improved, tolerating diet, passing flatus, BM Objective Last 24 Hour Vital Signs Date Time Temp Pulse Resp B/P (MAP) Pulse Ox O2 Delivery O2 Flow Rate FiO2 06/18/20 09:00 Room Air 06/18/20 08:00 97.8 88 20 121/84 (96) 97 06/18/20 04:00 97.9 98 20 102/63 (76) 98 06/18/20 00:00 98.1 98 20 108/65 (79) 98 06/17/20 21:00 Room Air 06/17/20 20:00 97.5 92 20 119/67 (84) 98 06/17/20 16:00 97.8 98 20 120/77 (91) 98 06/17/20 12:00 97.4 101 19 114/72 (86) 98 I&O Intake and Output 06/17/20 06/18/20 19:00 07:00 Intake Total 800 ml Output Total 800 ml 600 ml Balance -800 ml 200 ml Free Water 200 ml Tube Feeding 600 ml Output Urine Total 800 ml 600 ml Dressing: saturated Wound: clean Cardiovascular: RSR Respiratory: clear, decreased breath sounds Abdomen: soft, non-tender, present bowel sounds Extremities: no edema, no tenderness, no cyanosis Laboratory Tests Test 06/18/20 05:30 06/18/20 09:20 White Blood Count 8.2 K/UL (4.8-10.8) Red Blood Count 3.94 M/UL (4.70-6.10) L Hemoglobin 12.6 G/DL (14.2-18.0) L Hematocrit 39.3 % (42.0-52.0) L Mean Corpuscular Volume 100 FL (80-99) H Mean Corpuscular Hemoglobin 32.1 PG (27.0-31.0) H Mean Corpuscular Hemoglobin Concent 32.2 G/DL (32.0-36.0) Red Cell Distribution Width 15.8 % (11.6-14.8) H Platelet Count 340 K/UL (150-450) Mean Platelet Volume 8.5 FL (6.5-10.1) Neutrophils (%) (Auto) 54.5 % (45.0-75.0) Lymphocytes (%) (Auto) 36.2 % (20.0-45.0) Monocytes (%) (Auto) 6.6 % (1.0-10.0) Eosinophils (%) (Auto) 1.7 % (0.0-3.0) Basophils (%) (Auto) 1.1 % (0.0-2.0) Erythrocyte Sedimentation Rate Pending Sodium Level 151 MMOL/L (136-145) H 153 MMOL/L (136-145) H Potassium Level 5.3 MMOL/L (3.5-5.1) H 3.8 MMOL/L (3.5-5.1) Chloride Level 114 MMOL/L (98-107) H 112 MMOL/L (98-107) H Carbon Dioxide Level 30 MMOL/L (21-32) 34 MMOL/L (21-32) H Anion Gap 7 mmol/L (5-15) 7 mmol/L (5-15) Blood Urea Nitrogen 38 mg/dL (7-18) H 34 mg/dL (7-18) H Creatinine 1.1 MG/DL (0.55-1.30) 1.1 MG/DL (0.55-1.30) Estimat Glomerular Filtration Rate > 60 mL/min (>60) > 60 mL/min (>60) Glucose Level 310 MG/DL (74-106) H 243 MG/DL (74-106) H Calcium Level 8.6 MG/DL (8.5-10.1) 9.3 MG/DL (8.5-10.1) Phosphorus Level 2.8 MG/DL (2.5-4.9) Magnesium Level 3.2 MG/DL (1.8-2.4) H Total Bilirubin 0.3 MG/DL (0.2-1.0) Aspartate Amino Transf (AST/SGOT) 52 U/L (15-37) H Alanine Aminotransferase (ALT/SGPT) 41 U/L (12-78) Alkaline Phosphatase 192 U/L (46-116) H C-Reactive Protein, Quantitative 2.7 mg/dL (0.00-0.90) H Total Protein 8.7 G/DL (6.4-8.2) H Albumin 2.4 G/DL (3.4-5.0) L Globulin 6.3 g/dL Albumin/Globulin Ratio 0.4 (1.0-2.7) L Plan Problems: (1) Hypernatremia (2) Dehydration (3) Hip fracture, left (4) Diabetes mellitus (5) History of hypertension (6) Severe protein-calorie malnutrition Assessment & Plan: DAILY ESTIMATED NEEDS: Needs based on Sepsis, DM/ 54kg 30-40 kcals/kg 4412-4779 total kcals 1.25-2 g protein/kg 68-108 g total protein 25-35ml/kcal mL/kg 3747-7492 total fluid mLs NUTRITION DIAGNOSIS: * Swallowing difficulty R/T dysphagia, as evidenced by Pt is GT dep. (CURRENT TF: Glucerna 1.5 @ 30ml/hr x 24 hrs) ENTERAL NUTRITION RECOMMENDATIONS: Glucerna 1.5 @ 60ml/hr x 20 hrs to provide 1200ml, 1800kcal, 99g prot, 911ml free water, 160g carbs * Rec to INCREASE TF GOAL to 60ml/hr for 20 hrs * HOB over 30 degrees, increased water flushes * TF at goal meets 100% est needs. -------- ADDITIONAL RECOMMENDATIONS: * Calibrated bedscale wt for accurate CBW * Monitor lytes daily w/ TF, replete as needed * Pt may require increase in insulin regimen for improved BG W/ continuous TF infusion * Wound healing: DOMENICA BID, F/up w/ WC eval . (7) Acute encephalopathy (8) Pressure Ulcer Of Sacral Region, Unstageable Assessment & Plan: Pt presented on admission with purple and indurated area at Sacrococcygeal at previously compromised site(L)7cm x (W)3cm.Surrounding Hyperpigmentation at Sacrum. Non-Blanching erythema without fluctuance R heel. Non-Blanching erythema with delineated margins L heel (L)4.5cm x (W)5.5cm. L Heel is boggy . Tx.Plan: Apply Moisture Barrier Paste to Sacrum. Cover with Optifoam drsgs. Change every 3 days and prn. Apply Cavilon Skin Barrier to R and L trochanter. Cover each site with Optifoam drsgs. Change every 7 days and prn. Apply Cavilon Skin Barrier to each heel and malleoli. Cover each site with Optifoam drsgs. Change every 7 days and prn. Reposition at least every 2hours or as tolerated. Off-load heels with pillow. improving cont current care tube site okay (9) Feeding by G-tube (10) Abdominal distention (11) Multiple drug resistant organism (MDRO) culture positive (12) Sepsis (13) History of CVA (cerebrovascular accident) (14) Parkinson disease James Breen Jun 18, 2020 10:48
--- NOTE | 2020-06-18 11:15 | General Progress Note ---
Assessment/Plan Problem List: (1) Hypernatremia ICD Codes: E87.0 - Hyperosmolality and hypernatremia SNOMED: 508796529 (2) Feeding by G-tube ICD Codes: Z93.1 - Gastrostomy status SNOMED: 698407396, 495213631, [id number] (3) Diabetes mellitus ICD Codes: E11.9 - Type 2 diabetes mellitus without complications SNOMED: 04737688 (4) History of CVA (cerebrovascular accident) ICD Codes: Z86.73 - Personal history of transient ischemic attack (TIA), and cerebral infarction without residual deficits SNOMED: 910482739 (5) Parkinson disease ICD Codes: G20 - Parkinson's disease SNOMED: 25840022 Assessment/Plan: increase Levemir 17 to 20 units bid continue Novolog sliding scale high dose every 6 hours continue to hold Metformin due to lactic acidosis on presentation Subjective ROS Limited/Unobtainable: Yes Allergies: Coded Allergies: No Known Allergies (Unverified , 08/27/19) Subjective events noted - interval notes reviewed glucose values on higher side Item Value Date Time Bedside Blood Glucose 221 mg/dl H 06/18/20 0852 Bedside Blood Glucose 297 mg/dl H 06/18/20 0600 Bedside Blood Glucose 117 mg/dl 06/18/20 0000 Bedside Blood Glucose 208 mg/dl H 06/17/20 2042 Bedside Blood Glucose 213 mg/dl H 06/17/20 1825 Bedside Blood Glucose 302 mg/dl H 06/17/20 1226 Bedside Blood Glucose 168 mg/dl H 06/17/20 1002 Bedside Blood Glucose 215 mg/dl H 06/17/20 0613 Objective Last 24 Hour Vital Signs Date Time Temp Pulse Resp B/P (MAP) Pulse Ox O2 Delivery O2 Flow Rate FiO2 06/18/20 09:00 Room Air 06/18/20 08:00 97.8 88 20 121/84 (96) 97 06/18/20 04:00 97.9 98 20 102/63 (76) 98 06/18/20 00:00 98.1 98 20 108/65 (79) 98 06/17/20 21:00 Room Air 06/17/20 20:00 97.5 92 20 119/67 (84) 98 06/17/20 16:00 97.8 98 20 120/77 (91) 98 06/17/20 12:00 97.4 101 19 114/72 (86) 98 Intake and Output 06/17/20 06/18/20 19:00 07:00 Intake Total 800 ml Output Total 800 ml 600 ml Balance -800 ml 200 ml Free Water 200 ml Tube Feeding 600 ml Output Urine Total 800 ml 600 ml Laboratory Tests 06/18/20 05:30: White Blood Count 8.2, Red Blood Count 3.94L, Hemoglobin 12.6L, Hematocrit 39.3L , Mean Corpuscular Volume 100H, Mean Corpuscular Hemoglobin 32.1H, Mean Corpuscular Hemoglobin Concent 32.2, Red Cell Distribution Width 15.8H, Platelet Count 340, Mean Platelet Volume 8.5, Neutrophils (%) (Auto) 54.5, Lymphocytes (%) (Auto) 36.2, Monocytes (%) (Auto) 6.6, Eosinophils (%) (Auto) 1.7, Basophils (%) (Auto) 1.1, Erythrocyte Sedimentation Rate [Pending], Sodium Level 151H, Potassium Level 5.3H, Chloride Level 114H, Carbon Dioxide Level 30, Anion Gap 7, Blood Urea Nitrogen 38H, Creatinine 1.1, Estimat Glomerular Filtration Rate > 60, Glucose Level 310H, Calcium Level 8.6, Phosphorus Level 2.8, Magnesium Level 3.2H, Total Bilirubin 0.3, Aspartate Amino Transf (AST/SGOT ) 52H, Alanine Aminotransferase (ALT/SGPT) 41, Alkaline Phosphatase 192H, C- Reactive Protein, Quantitative 2.7H, Total Protein 8.7H, Albumin 2.4L, Globulin 6.3, Albumin/Globulin Ratio 0.4L 06/18/20 09:20: Sodium Level 153H, Potassium Level 3.8, Chloride Level 112H, Carbon Dioxide Level 34H, Anion Gap 7, Blood Urea Nitrogen 34H, Creatinine 1.1, Estimat Glomerular Filtration Rate > 60, Glucose Level 243H, Calcium Level 9.3 Height (Feet): 5 Height (Inches): 5.00 Weight (Pounds): 123 General Appearance: no apparent distress Neck: normal alignment Cardiovascular: normal rate Respiratory/Chest: decreased breath sounds Abdomen: normal bowel sounds Objective Current Medications Medications (Trade) Dose Ordered Sig/Debi Route PRN Reason Start Time Stop Time Status Last Admin Dose Admin Acetaminophen (Tylenol) 650 mg Q6H PRN GT Mild Pain (Pain Scale 1-3) 06/06/20 16:15 07/02/20 16:14 06/10/20 20:51 Amantadine HCl (Symmetrel) 100 mg TWICE A DAY GT 06/06/20 18:00 07/02/20 08:59 06/18/20 08:44 Aspirin (ASA) 81 mg DAILY GT 06/07/20 09:00 07/17/20 08:59 06/18/20 08:44 Dextrose 1,000 ml @ 100 mls/hr Q10H IV 06/17/20 09:00 07/17/20 08:59 06/18/20 05:32 Dextrose (Dextrose 50%) 25 ml Q30M PRN IV Hypoglycemia 06/11/20 17:45 09/09/20 17:44 Dextrose (Dextrose 50%) 50 ml Q30M PRN IV Hypoglycemia 06/11/20 17:45 09/09/20 17:44 Famotidine (Pepcid) 20 mg BID GT 06/06/20 18:00 09/01/20 17:59 06/18/20 08:44 Heparin Sodium (Porcine) (Heparin 5000 units/ml) 5,000 units EVERY 12 HOURS SUBQ 06/06/20 21:00 07/17/20 08:59 06/18/20 08:45 Insulin Aspart (NovoLOG) Q6HR SUBQ 06/11/20 18:00 09/09/20 17:59 06/18/20 05:31 Insulin Detemir (Levemir) 17 units EVERY 12 HOURS SUBQ 06/16/20 09:00 09/09/20 20:59 06/18/20 08:52 Midodrine (Pro-Amatine) 2.5 mg TIDPRN PRN ORAL blood pressure below 100 sbp 06/13/20 10:15 09/11/20 10:14 Pravastatin Sodium (Pravachol) 20 mg BEDTIME GT 06/06/20 21:00 07/02/20 20:59 06/17/20 20:42 Sennosides (Senokot) 8.6 mg DAILY GT 06/07/20 09:00 07/02/20 08:59 06/18/20 08:44 Gregory Pastrana MD Jun 18, 2020 11:15
--- NOTE | 2020-06-18 11:16 | Nephrology Progress Note ---
Assessment/Plan Problem List: (1) Hypernatremia (2) Sepsis (3) History of CVA (cerebrovascular accident) (4) Parkinson disease (5) Feeding by G-tube (6) Dehydration Assessment KELLY, resolving, serum creatinine of 1.9 now down to 1.2 Hypernatremia, dehydration, free water deficit Sepsis Diabetes mellitus [id number] GT feeding Severe protein calorie malnutrition History of CVA History of hypertension Parkinson's disease Plan June 18: Lab reviewed. Serum sodium lower. Creatinine 1.1. Continue current management. June 17: Lab reviewed. Sodium 160. Creatinine 1.3. Calcium lower at 9. Will continue D5W. June 16: Labs reviewed. Renal parameters stable. Serum calcium lowering. Serum sodium lowering. Serum creatinine 1.3. Another 1 L of D5W ordered. June 15: Lab reviewed. Serum sodium high. 1 L D5W given. Serum creatinine 1.4. Pamidronate given yesterday. Continue to monitor serum calcium. June 14: Lab reviewed. Serum calcium high corrected for low serum albumin. 60 mg pamidronate ID given. Continue to monitor renal parameters calcium and phosphorus. June 13: Lab reviewed. Medication list reviewed. Renal parameters stable. Will watch serum calcium and serum sodium. Chemistry panel tomorrow. June 12: Labs reviewed. Stable from renal standpoint of view. June 11: Labs reviewed. Stable renal parameters. June 10: Lab reviewed. Serum potassium normalized. Will give 1 L of D5W for high serum sodium. Continue per consultants. June 09: Labs reviewed. Discussed with RN. Serum potassium elevated. Suspect hemolysis. Will repeat serum potassium. DC all potassium supplements. June 08: Serum sodium higher. Will give 1 L of D5W. Renal parameters stable. Continue to monitor electrolytes. Continue per consultants. June 07: 1 bolus of D5W. Renal parameters stable. Serum sodium slightly high. Stable from renal standpoint of view. June 06: We will again discontinue the IV ordered. Stable from renal standpoint of view. Will start midodrine for low blood pressure. June 05: DC IV fluid. Potassium supplement given. Stable from renal standpoint to view. June 04: Potassium and magnesium supplement IV given, stable from renal standpoint of view. IV fluid D5W Monitor electrolytes Monitor renal parameters Hold blood pressure medication since blood pressure low Per orders, per consultants Subjective ROS Limited/Unobtainable: No Constitutional: Reports: malaise, weakness Objective Objective Last 24 Hour Vital Signs Date Time Temp Pulse Resp B/P (MAP) Pulse Ox O2 Delivery O2 Flow Rate FiO2 06/18/20 09:00 Room Air 06/18/20 08:00 97.8 88 20 121/84 (96) 97 06/18/20 04:00 97.9 98 20 102/63 (76) 98 06/18/20 00:00 98.1 98 20 108/65 (79) 98 06/17/20 21:00 Room Air 06/17/20 20:00 97.5 92 20 119/67 (84) 98 06/17/20 16:00 97.8 98 20 120/77 (91) 98 06/17/20 12:00 97.4 101 19 114/72 (86) 98 Intake and Output 06/17/20 06/18/20 19:00 07:00 Intake Total 800 ml Output Total 800 ml 600 ml Balance -800 ml 200 ml Free Water 200 ml Tube Feeding 600 ml Output Urine Total 800 ml 600 ml Laboratory Tests 06/18/20 05:30: White Blood Count 8.2, Red Blood Count 3.94L, Hemoglobin 12.6L, Hematocrit 39.3L , Mean Corpuscular Volume 100H, Mean Corpuscular Hemoglobin 32.1H, Mean Corpuscular Hemoglobin Concent 32.2, Red Cell Distribution Width 15.8H, Platelet Count 340, Mean Platelet Volume 8.5, Neutrophils (%) (Auto) 54.5, Lymphocytes (%) (Auto) 36.2, Monocytes (%) (Auto) 6.6, Eosinophils (%) (Auto) 1.7, Basophils (%) (Auto) 1.1, Erythrocyte Sedimentation Rate [Pending], Sodium Level 151H, Potassium Level 5.3H, Chloride Level 114H, Carbon Dioxide Level 30, Anion Gap 7, Blood Urea Nitrogen 38H, Creatinine 1.1, Estimat Glomerular Filtration Rate > 60, Glucose Level 310H, Calcium Level 8.6, Phosphorus Level 2.8, Magnesium Level 3.2H, Total Bilirubin 0.3, Aspartate Amino Transf (AST/SGOT ) 52H, Alanine Aminotransferase (ALT/SGPT) 41, Alkaline Phosphatase 192H, C- Reactive Protein, Quantitative 2.7H, Total Protein 8.7H, Albumin 2.4L, Globulin 6.3, Albumin/Globulin Ratio 0.4L 06/18/20 09:20: Sodium Level 153H, Potassium Level 3.8, Chloride Level 112H, Carbon Dioxide Level 34H, Anion Gap 7, Blood Urea Nitrogen 34H, Creatinine 1.1, Estimat Glomerular Filtration Rate > 60, Glucose Level 243H, Calcium Level 9.3 Height (Feet): 5 Height (Inches): 5.00 Weight (Pounds): 123 General Appearance: no apparent distress Cardiovascular: tachycardia Respiratory/Chest: decreased breath sounds Abdomen: soft Objective No change Eddie Nelson MD Jun 18, 2020 11:15
[2020-06-18 12:00] VITALS: BP 125/75
[2020-06-18 16:00] VITALS: BP 117/69
--- NOTE | 2020-06-18 19:21 | NUR ---
NURSE HAND-OFF: Important Events on Shift:N/A Patient Status: Stable Diet: GT Glucerna 1.5 60cc Pending Orders: n/a Pending Results/Labs:n/a Pending MD notification: Latest Vital Signs: Temperature 98.1 , Pulse 82 , B/P 117 /69 , Respiratory Rate 20 , O2 SAT 97 , Room Air, O2 Flow Rate 3.0 . Vital Sign Comment: stable Latest Lane Fall Score: 40 Fall Risk: Medium Risk Safety Measures: Call light Within Reach, Bed Alarm Zone 1, Side Rails Side Rails x3, Bed position Low and Locked. Fall Precautions: Yellow Socks Yellow Gown Report given to MOJGAN Barker.
--- NOTE | 2020-06-18 19:30 | NUR ---
NURSE NOTES: RECEIVED PATIENT LYING IN BED, EYES OPEN, NON VERBAL, HEAD OF BED ELEVATED/ASPIRATION PRECAUTIONS, ALL NEEDS ANTICIPATED AND MET BY NURSING STAFF. IV INTACT TO LEFT FOREARM/WRAPPED WITH KERLEX, IV FLUIDS D5W AT 100ML/HOUR. NO SIGNS AND SYMPTOMS OF ACUTE CARDIO RESPIRATORY DISTRESS/SHORTNESS OF BREATH, NO PERIPHERAL EDEMA NOTED. GT INTACT, TOLERATING FEEDING, NO GASTRIC RESIDUAL ASPIRATED, NO REPORT OF N/V. SIDE RAILS UP X3/BED IN LOWEST POSITION FOR SAFETY, FREQUENT ROUNDING FOR SAFETY/NEEDS. CONTINUE WITH CURRENT PLAN OF CARE. NAD.
[2020-06-18 20:00] VITALS: BP 106/66
--- NOTE | 2020-06-18 21:13 | NUR ---
NURSE NOTES: REPOSITIONED FOR COMFORT/PRESSURE RELIEF,TOLERATED WELL. WOUND DRESSINGS DRY AND INTACT, PICTURES TAKEN BY AM NURSE.
--- NOTE | 2020-06-18 22:51 | Internal Med Progress Note ---
Subjective Physician Name Cirilo Rome Attending Physician Cirilo Rome MD Current Medications Medications (Trade) Dose Ordered Sig/Debi Route PRN Reason Start Time Stop Time Status Last Admin Dose Admin Acetaminophen (Tylenol) 650 mg Q6H PRN GT Mild Pain (Pain Scale 1-3) 06/06/20 16:15 07/02/20 16:14 06/10/20 20:51 Amantadine HCl (Symmetrel) 100 mg TWICE A DAY GT 06/06/20 18:00 07/02/20 08:59 06/18/20 17:51 Aspirin (ASA) 81 mg DAILY GT 06/07/20 09:00 07/17/20 08:59 06/18/20 08:44 Dextrose 1,000 ml @ 100 mls/hr Q10H IV 06/17/20 09:00 07/17/20 08:59 06/18/20 16:17 Dextrose (Dextrose 50%) 25 ml Q30M PRN IV Hypoglycemia 06/11/20 17:45 09/09/20 17:44 Dextrose (Dextrose 50%) 50 ml Q30M PRN IV Hypoglycemia 06/11/20 17:45 09/09/20 17:44 Famotidine (Pepcid) 20 mg BID GT 06/06/20 18:00 09/01/20 17:59 06/18/20 17:51 Heparin Sodium (Porcine) (Heparin 5000 units/ml) 5,000 units EVERY 12 HOURS SUBQ 06/06/20 21:00 07/17/20 08:59 06/18/20 21:00 Insulin Aspart (NovoLOG) Q6HR SUBQ 06/11/20 18:00 09/09/20 17:59 06/18/20 18:01 Insulin Detemir (Levemir) 20 units EVERY 12 HOURS SUBQ 06/18/20 21:00 09/09/20 20:59 06/18/20 20:57 Midodrine (Pro-Amatine) 2.5 mg TIDPRN PRN ORAL blood pressure below 100 sbp 06/13/20 10:15 09/11/20 10:14 Pravastatin Sodium (Pravachol) 20 mg BEDTIME GT 06/06/20 21:00 07/02/20 20:59 06/18/20 20:57 Sennosides (Senokot) 8.6 mg DAILY GT 06/07/20 09:00 07/02/20 08:59 06/18/20 08:44 Allergies: Coded Allergies: No Known Allergies (Unverified , 08/27/19) Subjective awake, alert, more responsive, no acute distress. renal function stable. Objective Last Vital Signs Date Time Temp Pulse Resp B/P (MAP) Pulse Ox O2 Delivery O2 Flow Rate FiO2 06/18/20 21:16 Room Air 06/18/20 20:00 96.9 89 20 106/66 (79) 99 Laboratory Tests Test 06/18/20 05:30 06/18/20 09:20 White Blood Count 8.2 K/UL (4.8-10.8) Red Blood Count 3.94 M/UL (4.70-6.10) L Hemoglobin 12.6 G/DL (14.2-18.0) L Hematocrit 39.3 % (42.0-52.0) L Mean Corpuscular Volume 100 FL (80-99) H Mean Corpuscular Hemoglobin 32.1 PG (27.0-31.0) H Mean Corpuscular Hemoglobin Concent 32.2 G/DL (32.0-36.0) Red Cell Distribution Width 15.8 % (11.6-14.8) H Platelet Count 340 K/UL (150-450) Mean Platelet Volume 8.5 FL (6.5-10.1) Neutrophils (%) (Auto) 54.5 % (45.0-75.0) Lymphocytes (%) (Auto) 36.2 % (20.0-45.0) Monocytes (%) (Auto) 6.6 % (1.0-10.0) Eosinophils (%) (Auto) 1.7 % (0.0-3.0) Basophils (%) (Auto) 1.1 % (0.0-2.0) Erythrocyte Sedimentation Rate 28 MM/HR (0-20) H Sodium Level 151 MMOL/L (136-145) H 153 MMOL/L (136-145) H Potassium Level 5.3 MMOL/L (3.5-5.1) H 3.8 MMOL/L (3.5-5.1) Chloride Level 114 MMOL/L (98-107) H 112 MMOL/L (98-107) H Carbon Dioxide Level 30 MMOL/L (21-32) 34 MMOL/L (21-32) H Anion Gap 7 mmol/L (5-15) 7 mmol/L (5-15) Blood Urea Nitrogen 38 mg/dL (7-18) H 34 mg/dL (7-18) H Creatinine 1.1 MG/DL (0.55-1.30) 1.1 MG/DL (0.55-1.30) Estimat Glomerular Filtration Rate > 60 mL/min (>60) > 60 mL/min (>60) Glucose Level 310 MG/DL (74-106) H 243 MG/DL (74-106) H Calcium Level 8.6 MG/DL (8.5-10.1) 9.3 MG/DL (8.5-10.1) Phosphorus Level 2.8 MG/DL (2.5-4.9) Magnesium Level 3.2 MG/DL (1.8-2.4) H Total Bilirubin 0.3 MG/DL (0.2-1.0) Aspartate Amino Transf (AST/SGOT) 52 U/L (15-37) H Alanine Aminotransferase (ALT/SGPT) 41 U/L (12-78) Alkaline Phosphatase 192 U/L (46-116) H C-Reactive Protein, Quantitative 2.7 mg/dL (0.00-0.90) H Total Protein 8.7 G/DL (6.4-8.2) H Albumin 2.4 G/DL (3.4-5.0) L Globulin 6.3 g/dL Albumin/Globulin Ratio 0.4 (1.0-2.7) L Intake and Output 06/17/20 06/18/20 19:00 07:00 Intake Total 800 ml Output Total 800 ml 600 ml Balance -800 ml 200 ml Free Water 200 ml Tube Feeding 600 ml Output Urine Total 800 ml 600 ml Objective General: No acute distress, awake and alert HEENT: NCAT, sclera anicteric, PERRL, EOMI. Neck: Supple, no significant jugular venous distention, Lungs: Fair inspiratory effort, clear to auscultation bilaterally, no Wheeze or Rales. Heart: Regular rate and rhythm, normal S1/S2, no murmurs Abdomen: soft, nontender, nondistended. Normoactive bowel sounds, PEG. Extremities: No Cyanosis , clubbing or edema. Neuro: A&O x 3, Able to move 5/5 upper extremities and 1/5 lower extremities. Skin: warm, no rash. Assessment/Plan Assessment/Plan ASSESSMENT: This is a 79-year-old male with: 1. Hyperglycemia. 2. Hypernatremia. 3. Urinary tract infection=MDR proteus. 4. Diabetes type 2. 5. Hypertension. 6. Hypercholesterolemia. 7. Dysphagia. 8. Parkinson disease. 9. Ulcerative proctitis. 10. Severe Protein-calorie malnutrition. 11. History of sacral decubitus ulcer stage IV. 12. Benign prostatic hypertrophy. 13. Gastroesophageal reflux disease. 14. Metabolic encephalopathy. 15. History of left hip fracture. TREATMENT: 1. Hyperglycemia/diabetes. The patient has been placed on a protocol using NovoLog sliding scale. The patient's blood sugars have been running in 300s. Hyperglycemia may be secondary to urinary tract infection. 2. Urinary tract infection. Urine culture =MDR proteus. results.ID=Dr Oliva 3. Hypertension. Continue amlodipine as above. 4. Hypercholesterolemia. Continue atorvastatin as above. 5. Dysphagia. The patient is status post PEG placement. 6. Parkinson disease. Continue amantadine as above. 7. Ulcerative proctitis. 8. Protein-calorie malnutrition. 9. Sacral decubitus ulcer stage IV. 10. Benign prostatic hypertrophy. Continue tamsulosin as above. 11. Gastroesophageal reflux disease. 12. Metabolic encephalopathy. 13. History of left hip fracture. Abx: Off Tolerate tube feeding @60 cc/hr. CODE STATUS: Full code. DVT prophylaxis: Heparin subcu. waiting for SNF placement start water flush via PEG. Cirilo Rome MD Jun 18, 2020 22:51
--- NOTE | 2020-06-18 23:00 | NUR ---
NURSE NOTES: WOUND CARE PROVIDED, TOLERATED WELL. NAD.
[2020-06-19] VITALS (7 sets, daily range): BP systolic 102–140; BP diastolic 61–78
[2020-06-19] MEDS: NovoLOG Insulin Flexpen SUBQ SCH ×5 (00:16→23:44)
--- NOTE | 2020-06-19 06:11 | NUR ---
NURSE NOTES: RESTED WELL, NO SIGNIFICANT CHANGE OF CONDITION NOTED THROUGHOUT THE NIGHT. SAFETY MAINTAINED.
--- NOTE | 2020-06-19 07:08 | NUR ---
NURSE HAND-OFF: Important Events on Shift:[BLOOD GLUCOSE LEVEL 116MG/DL, ASYMPTOMATIC, NO COVERAGE] Patient Status: [STABLE] Diet: [GLUCERNA 1.5 60ML/HR] Pending Orders: [AM LABS] Pending Results/Labs:[] Pending MD notification:[] Latest Vital Signs: Temperature 98.3 , Pulse 96 , B/P 136 /78 , Respiratory Rate 18 , O2 SAT 96 , Room Air, O2 Flow Rate 3.0 . Vital Sign Comment: [STABLE, AFEBRILE] Latest Lane Fall Score: 40 Fall Risk: Medium Risk Safety Measures: Call light Within Reach, Bed Alarm Zone 1, Side Rails Side Rails x3, Bed position Low and Locked. Fall Precautions: Yellow Socks Yellow Gown Report given to [JOHNNY GONZALEZ].
--- NOTE | 2020-06-19 07:30 | NUR ---
NURSE NOTES: Report received from MOJGAN Barker. Patient observed to be awake, alert, and oriented x1-2. Verbally responsive. HOB elevated, on room air. No s/sx of SOB/Distress, no c/o any pain or gi/gu discomfort. GT inplace and intact, feeding turned off until 11AM. Endorsed from previous shift, feeding is tolerated well. Adams inplace and intact, running well. IV site located on LFA gauge 24, running [id number] at 100cc hr. IV line asymptomatic, inplace and intact. Bed placed on lowest position, call light placed within reach and will continue to monitor.
[2020-06-19 07:55] LABS: BASOPHILS % (AUTO) 1.3 % (0.0-2.0); EOSINOPHILS % (AUTO) 0.9 % (0.0-3.0); HEMATOCRIT 41.3 % (42.0-52.0); HEMOGLOBIN 12.4 G/DL (14.2-18.0); LYMPHOCYTES % (AUTO) 29.9 % (20.0-45.0); MEAN CORPUSCULAR VOLUME 99 FL (80-99); MONOCYTES % (AUTO) 5.4 % (1.0-10.0); NEUTROPHILS % (AUTO) 62.6 % (45.0-75.0); PLATELET COUNT 269 K/UL (150-450); RED BLOOD COUNT 4.17 M/UL (4.70-6.10); RED CELL DISTRIBUTION WIDTH 15.1 % (11.6-14.8); WHITE BLOOD COUNT 8.5 K/UL (4.8-10.8)
[2020-06-19 08:08] LABS: ALANINE AMINOTRANSFERASE 35 U/L (12-78); ALBUMIN 2.6 G/DL (3.4-5.0); ALBUMIN/GLOBULIN RATIO 0.4 (1.0-2.7); ALKALINE PHOSPHATASE 180 U/L (46-116); ANION GAP 8 mmol/L (5-15); ASPARTATE AMINO TRANSFERASE 18 U/L (15-37); BILIRUBIN,TOTAL 0.3 MG/DL (0.2-1.0); BLOOD UREA NITROGEN 25 mg/dL (7-18); CALCIUM 8.7 MG/DL (8.5-10.1); CARBON DIOXIDE 30 MMOL/L (21-32); CHLORIDE 108 MMOL/L (98-107); PHOSPHORUS 2.2 MG/DL (2.5-4.9); POTASSIUM 4.2 MMOL/L (3.5-5.1); SODIUM 146 MMOL/L (136-145)
[2020-06-19] MEDS: Aspirin Baby 81mg GT SCH (08:29)
[2020-06-19] MEDS: Sennosides 8.6mg tab GT SCH (08:29)
[2020-06-19] MEDS: Amantadine 100mg cap GT SCH ×2 (08:29→18:00)
[2020-06-19] MEDS: Heparin 5000 units/ml inj SUBQ SCH ×2 (08:31→20:18)
[2020-06-19] MEDS: Levemir Flexpen SUBQ SCH ×2 (08:37→20:20)
[2020-06-19] MEDS ORDERED: Phospha 250 Neutral tab ORAL SCH (09:30)
--- NOTE | 2020-06-19 10:33 | Infectious Diseases Prog Note ---
Assessment/Plan 79yo M with: Fever, SP Leukocytosis, SP KELLY, improving UTI, sp rx 06/01 UA w/ pyuria, UCx + P Mirabilis ESBL 06/01 BCx Neg 06/01 CXR: No acute process COVID rapid test neg H/o ESBL Proteus in UCx in Oct 2019 Renal US w/ BL cysts PMH: DM2 Parkinson's dementia Bedridden G-tube Plan: Monitor off abx 06/10 SP audra #8 06/02 SP erta #1 06/01 SP cefepime, vanco, flagyl x1 in ED Monitor CBC/BMP Trend hemodynamics, temp curve discharge planing D/w RN Thank you for this consult. [facility] will continue to follow. Subjective Allergies: Coded Allergies: No Known Allergies (Unverified , 08/27/19) Afebrile No Leukocytosis off abx Objective Last 24 Hour Vital Signs Date Time Temp Pulse Resp B/P (MAP) Pulse Ox O2 Delivery O2 Flow Rate FiO2 06/19/20 09:00 Room Air 06/19/20 08:00 98.2 98 19 139/69 (92) 95 06/19/20 04:00 98.3 96 18 136/78 (97) 96 06/19/20 00:00 97.9 97 18 137/61 (86) 94 06/18/20 21:16 Room Air 06/18/20 20:00 96.9 89 20 106/66 (79) 99 06/18/20 16:00 98.1 82 20 117/69 (85) 97 06/18/20 12:00 97.3 85 20 125/75 (92) 97 Height (Feet): 5 Height (Inches): 5.00 Weight (Pounds): 123 GEN: NAD HEENT: NCAT, MMM, EOMI Pulm: Equal chest rise and fall B/L, No accessory muscle use ABD: Soft, ND SKIN: Exposed skin with no rash, Normal in color Laboratory Tests Test 06/19/20 07:00 White Blood Count 8.5 K/UL (4.8-10.8) Red Blood Count 4.17 M/UL (4.70-6.10) L Hemoglobin 12.4 G/DL (14.2-18.0) L Hematocrit 41.3 % (42.0-52.0) L Mean Corpuscular Volume 99 FL (80-99) Mean Corpuscular Hemoglobin 29.7 PG (27.0-31.0) Mean Corpuscular Hemoglobin Concent 30.0 G/DL (32.0-36.0) L Red Cell Distribution Width 15.1 % (11.6-14.8) H Platelet Count 269 K/UL (150-450) Mean Platelet Volume 9.8 FL (6.5-10.1) Neutrophils (%) (Auto) 62.6 % (45.0-75.0) Lymphocytes (%) (Auto) 29.9 % (20.0-45.0) Monocytes (%) (Auto) 5.4 % (1.0-10.0) Eosinophils (%) (Auto) 0.9 % (0.0-3.0) Basophils (%) (Auto) 1.3 % (0.0-2.0) Erythrocyte Sedimentation Rate 56 MM/HR (0-20) H Sodium Level 146 MMOL/L (136-145) H Potassium Level 4.2 MMOL/L (3.5-5.1) Chloride Level 108 MMOL/L (98-107) H Carbon Dioxide Level 30 MMOL/L (21-32) Anion Gap 8 mmol/L (5-15) Blood Urea Nitrogen 25 mg/dL (7-18) H Creatinine 1.0 MG/DL (0.55-1.30) Estimat Glomerular Filtration Rate > 60 mL/min (>60) Glucose Level 131 MG/DL (74-106) #H Calcium Level 8.7 MG/DL (8.5-10.1) Phosphorus Level 2.2 MG/DL (2.5-4.9) L Magnesium Level 2.7 MG/DL (1.8-2.4) H Total Bilirubin 0.3 MG/DL (0.2-1.0) Aspartate Amino Transf (AST/SGOT) 18 U/L (15-37) Alanine Aminotransferase (ALT/SGPT) 35 U/L (12-78) Alkaline Phosphatase 180 U/L (46-116) H C-Reactive Protein, Quantitative 2.8 mg/dL (0.00-0.90) H Total Protein 8.8 G/DL (6.4-8.2) H Albumin 2.6 G/DL (3.4-5.0) L Globulin 6.2 g/dL Albumin/Globulin Ratio 0.4 (1.0-2.7) L Current Medications Medications (Trade) Dose Ordered Sig/Debi Route PRN Reason Start Time Stop Time Status Last Admin Dose Admin Acetaminophen (Tylenol) 650 mg Q6H PRN GT Mild Pain (Pain Scale 1-3) 06/06/20 16:15 07/02/20 16:14 06/10/20 20:51 Amantadine HCl (Symmetrel) 100 mg TWICE A DAY GT 06/06/20 18:00 07/02/20 08:59 06/19/20 08:29 Aspirin (ASA) 81 mg DAILY GT 06/07/20 09:00 07/17/20 08:59 06/19/20 08:29 Dextrose 1,000 ml @ 100 mls/hr Q10H IV 06/17/20 09:00 07/17/20 08:59 06/19/20 01:02 Dextrose (Dextrose 50%) 25 ml Q30M PRN IV Hypoglycemia 06/11/20 17:45 09/09/20 17:44 Dextrose (Dextrose 50%) 50 ml Q30M PRN IV Hypoglycemia 06/11/20 17:45 09/09/20 17:44 Famotidine (Pepcid) 20 mg BID GT 06/06/20 18:00 09/01/20 17:59 06/19/20 08:29 Heparin Sodium (Porcine) (Heparin 5000 units/ml) 5,000 units EVERY 12 HOURS SUBQ 06/06/20 21:00 07/17/20 08:59 06/19/20 08:31 Insulin Aspart (NovoLOG) Q6HR SUBQ 06/11/20 18:00 09/09/20 17:59 06/19/20 00:16 Insulin Detemir (Levemir) 20 units EVERY 12 HOURS SUBQ 06/18/20 21:00 09/09/20 20:59 06/19/20 08:37 Midodrine (Pro-Amatine) 2.5 mg TIDPRN PRN ORAL blood pressure below 100 sbp 06/13/20 10:15 09/11/20 10:14 Pravastatin Sodium (Pravachol) 20 mg BEDTIME GT 06/06/20 21:00 07/02/20 20:59 06/18/20 20:57 Sennosides (Senokot) 8.6 mg DAILY GT 06/07/20 09:00 07/02/20 08:59 06/19/20 08:29 Sonu Sarmiento MD Jun 19, 2020 10:33
--- NOTE | 2020-06-19 10:34 | General Progress Note ---
Assessment/Plan Problem List: (1) Hypernatremia ICD Codes: E87.0 - Hyperosmolality and hypernatremia SNOMED: 495929590 (2) Feeding by G-tube ICD Codes: Z93.1 - Gastrostomy status SNOMED: 731378098, 802781270, 973694418 (3) Diabetes mellitus ICD Codes: E11.9 - Type 2 diabetes mellitus without complications SNOMED: 65486287 (4) History of CVA (cerebrovascular accident) ICD Codes: Z86.73 - Personal history of transient ischemic attack (TIA), and cerebral infarction without residual deficits SNOMED: 690787656 (5) Parkinson disease ICD Codes: G20 - Parkinson's disease SNOMED: 96345649 Assessment/Plan: continue Levemir 20 units bid continue Novolog sliding scale high dose every 6 hours continue to hold Metformin due to lactic acidosis on presentation Subjective ROS Limited/Unobtainable: Yes Allergies: Coded Allergies: No Known Allergies (Unverified , 08/27/19) Subjective events noted - interval notes reviewed glucose values improved Item Value Date Time Bedside Blood Glucose 161 mg/dl H 06/19/20 0837 Bedside Blood Glucose 116 mg/dl 06/19/20 0548 Bedside Blood Glucose 189 mg/dl H 06/19/20 0016 Bedside Blood Glucose 226 mg/dl H 06/18/20 2057 Bedside Blood Glucose 185 mg/dl H 06/18/20 1801 Bedside Blood Glucose 178 mg/dl H 06/18/20 1220 Bedside Blood Glucose 221 mg/dl H 06/18/20 0852 Bedside Blood Glucose 297 mg/dl H 06/18/20 0600 Objective Last 24 Hour Vital Signs Date Time Temp Pulse Resp B/P (MAP) Pulse Ox O2 Delivery O2 Flow Rate FiO2 06/19/20 09:00 Room Air 06/19/20 08:00 98.2 98 19 139/69 (92) 95 06/19/20 04:00 98.3 96 18 136/78 (97) 96 06/19/20 00:00 97.9 97 18 137/61 (86) 94 06/18/20 21:16 Room Air 06/18/20 20:00 96.9 89 20 106/66 (79) 99 06/18/20 16:00 98.1 82 20 117/69 (85) 97 06/18/20 12:00 97.3 85 20 125/75 (92) 97 Intake and Output 06/18/20 06/19/20 19:00 07:00 Intake Total 1380 ml 2170 ml Output Total 1000 ml Balance 1380 ml 1170 ml Free Water 100 ml 310 ml IV Total 1100 ml 1200 ml Tube Feeding 180 ml 660 ml Output Urine Total 1000 ml Laboratory Tests 06/19/20 07:00: White Blood Count 8.5, Red Blood Count 4.17L, Hemoglobin 12.4L, Hematocrit 41.3L , Mean Corpuscular Volume 99, Mean Corpuscular Hemoglobin 29.7, Mean Corpuscular Hemoglobin Concent 30.0L, Red Cell Distribution Width 15.1H, Platelet Count 269, Mean Platelet Volume 9.8, Neutrophils (%) (Auto) 62.6, Lymphocytes (%) (Auto) 29.9, Monocytes (%) (Auto) 5.4, Eosinophils (%) (Auto) 0.9, Basophils (%) (Auto) 1.3, Erythrocyte Sedimentation Rate 56H, Sodium Level 146H, Potassium Level 4.2, Chloride Level 108H, Carbon Dioxide Level 30, Anion Gap 8, Blood Urea Nitrogen 25H, Creatinine 1.0, Estimat Glomerular Filtration Rate > 60, Glucose Level 131#H, Calcium Level 8.7, Phosphorus Level 2.2L, Magnesium Level 2.7H, Total Bilirubin 0.3, Aspartate Amino Transf (AST/SGOT) 18 , Alanine Aminotransferase (ALT/SGPT) 35, Alkaline Phosphatase 180H, C-Reactive Protein, Quantitative 2.8H, Total Protein 8.8H, Albumin 2.6L, Globulin 6.2, Albumin/Globulin Ratio 0.4L Height (Feet): 5 Height (Inches): 5.00 Weight (Pounds): 123 General Appearance: no apparent distress Neck: normal alignment Cardiovascular: normal rate Respiratory/Chest: decreased breath sounds Abdomen: normal bowel sounds Objective Current Medications Medications (Trade) Dose Ordered Sig/Debi Route PRN Reason Start Time Stop Time Status Last Admin Dose Admin Acetaminophen (Tylenol) 650 mg Q6H PRN GT Mild Pain (Pain Scale 1-3) 06/06/20 16:15 07/02/20 16:14 06/10/20 20:51 Amantadine HCl (Symmetrel) 100 mg TWICE A DAY GT 06/06/20 18:00 07/02/20 08:59 06/19/20 08:29 Aspirin (ASA) 81 mg DAILY GT 06/07/20 09:00 07/17/20 08:59 06/19/20 08:29 Dextrose 1,000 ml @ 100 mls/hr Q10H IV 06/17/20 09:00 07/17/20 08:59 06/19/20 01:02 Dextrose (Dextrose 50%) 25 ml Q30M PRN IV Hypoglycemia 06/11/20 17:45 09/09/20 17:44 Dextrose (Dextrose 50%) 50 ml Q30M PRN IV Hypoglycemia 06/11/20 17:45 09/09/20 17:44 Famotidine (Pepcid) 20 mg BID GT 06/06/20 18:00 09/01/20 17:59 06/19/20 08:29 Heparin Sodium (Porcine) (Heparin 5000 units/ml) 5,000 units EVERY 12 HOURS SUBQ 06/06/20 21:00 07/17/20 08:59 06/19/20 08:31 Insulin Aspart (NovoLOG) Q6HR SUBQ 06/11/20 18:00 09/09/20 17:59 06/19/20 00:16 Insulin Detemir (Levemir) 20 units EVERY 12 HOURS SUBQ 06/18/20 21:00 09/09/20 20:59 06/19/20 08:37 Midodrine (Pro-Amatine) 2.5 mg TIDPRN PRN ORAL blood pressure below 100 sbp 06/13/20 10:15 09/11/20 10:14 Pravastatin Sodium (Pravachol) 20 mg BEDTIME GT 06/06/20 21:00 07/02/20 20:59 06/18/20 20:57 Sennosides (Senokot) 8.6 mg DAILY GT 06/07/20 09:00 07/02/20 08:59 06/19/20 08:29 Gregory Pastrana MD Jun 19, 2020 10:34
--- NOTE | 2020-06-19 12:05 | Nephrology Progress Note ---
Assessment/Plan Problem List: (1) Hypernatremia (2) Sepsis (3) History of CVA (cerebrovascular accident) (4) Parkinson disease (5) Feeding by G-tube (6) Dehydration Assessment KELLY, resolving, serum creatinine of 1.9 now down to 1.2 Hypernatremia, dehydration, free water deficit Sepsis Diabetes mellitus [id number] GT feeding Severe protein calorie malnutrition History of CVA History of hypertension Parkinson's disease Plan June 19: Labs reviewed. Phosphorus supplement given. Stable from renal standpoint of view. June 18: Lab reviewed. Serum sodium lower. Creatinine 1.1. Continue current management. June 17: Lab reviewed. Sodium 160. Creatinine 1.3. Calcium lower at 9. Will continue D5W. June 16: Labs reviewed. Renal parameters stable. Serum calcium lowering. Serum sodium lowering. Serum creatinine 1.3. Another 1 L of D5W ordered. June 15: Lab reviewed. Serum sodium high. 1 L D5W given. Serum creatinine 1.4. Pamidronate given yesterday. Continue to monitor serum calcium. June 14: Lab reviewed. Serum calcium high corrected for low serum albumin. 60 mg pamidronate ID given. Continue to monitor renal parameters calcium and phosphorus. June 13: Lab reviewed. Medication list reviewed. Renal parameters stable. Will watch serum calcium and serum sodium. Chemistry panel tomorrow. June 12: Labs reviewed. Stable from renal standpoint of view. June 11: Labs reviewed. Stable renal parameters. June 10: Lab reviewed. Serum potassium normalized. Will give 1 L of D5W for high serum sodium. Continue per consultants. June 09: Labs reviewed. Discussed with RN. Serum potassium elevated. Suspect hemolysis. Will repeat serum potassium. DC all potassium supplements. June 08: Serum sodium higher. Will give 1 L of D5W. Renal parameters stable. Continue to monitor electrolytes. Continue per consultants. June 07: 1 bolus of D5W. Renal parameters stable. Serum sodium slightly high. Stable from renal standpoint of view. June 06: We will again discontinue the IV ordered. Stable from renal standpoint of view. Will start midodrine for low blood pressure. June 05: DC IV fluid. Potassium supplement given. Stable from renal standpoint to view. June 04: Potassium and magnesium supplement IV given, stable from renal standpoint of view. IV fluid D5W Monitor electrolytes Monitor renal parameters Hold blood pressure medication since blood pressure low Per orders, per consultants Subjective ROS Limited/Unobtainable: No Constitutional: Reports: malaise Objective Objective Last 24 Hour Vital Signs Date Time Temp Pulse Resp B/P (MAP) Pulse Ox O2 Delivery O2 Flow Rate FiO2 06/19/20 09:00 Room Air 06/19/20 08:00 98.2 98 19 139/69 (92) 95 06/19/20 04:00 98.3 96 18 136/78 (97) 96 06/19/20 00:00 97.9 97 18 137/61 (86) 94 06/18/20 21:16 Room Air 06/18/20 20:00 96.9 89 20 106/66 (79) 99 06/18/20 16:00 98.1 82 20 117/69 (85) 97 Intake and Output 06/18/20 06/19/20 19:00 07:00 Intake Total 1380 ml 2170 ml Output Total 1000 ml Balance 1380 ml 1170 ml Free Water 100 ml 310 ml IV Total 1100 ml 1200 ml Tube Feeding 180 ml 660 ml Output Urine Total 1000 ml Laboratory Tests 06/19/20 07:00: White Blood Count 8.5, Red Blood Count 4.17L, Hemoglobin 12.4L, Hematocrit 41.3L , Mean Corpuscular Volume 99, Mean Corpuscular Hemoglobin 29.7, Mean Corpuscular Hemoglobin Concent 30.0L, Red Cell Distribution Width 15.1H, Platelet Count 269, Mean Platelet Volume 9.8, Neutrophils (%) (Auto) 62.6, Lymphocytes (%) (Auto) 29.9, Monocytes (%) (Auto) 5.4, Eosinophils (%) (Auto) 0.9, Basophils (%) (Auto) 1.3, Erythrocyte Sedimentation Rate 56H, Sodium Level 146H, Potassium Level 4.2, Chloride Level 108H, Carbon Dioxide Level 30, Anion Gap 8, Blood Urea Nitrogen 25H, Creatinine 1.0, Estimat Glomerular Filtration Rate > 60, Glucose Level 131#H, Calcium Level 8.7, Phosphorus Level 2.2L, Magnesium Level 2.7H, Total Bilirubin 0.3, Aspartate Amino Transf (AST/SGOT) 18 , Alanine Aminotransferase (ALT/SGPT) 35, Alkaline Phosphatase 180H, C-Reactive Protein, Quantitative 2.8H, Total Protein 8.8H, Albumin 2.6L, Globulin 6.2, Albumin/Globulin Ratio 0.4L Height (Feet): 5 Height (Inches): 5.00 Weight (Pounds): 123 General Appearance: no apparent distress Respiratory/Chest: decreased breath sounds Abdomen: soft Objective No change Eddie Nelson MD Jun 19, 2020 12:05
--- NOTE | 2020-06-19 16:45 | Pulmonology Progress Note ---
Subjective ROS Limited/Unobtainable: No Constitutional: Reports: no symptoms, anorexia HEENT: Repors: no symptoms Allergies: Coded Allergies: No Known Allergies (Unverified , 08/27/19) All Systems: reviewed and negative except above Objective Last 24 Hour Vital Signs Date Time Temp Pulse Resp B/P (MAP) Pulse Ox O2 Delivery O2 Flow Rate FiO2 06/19/20 16:00 98.3 102 18 115/64 (81) 94 06/19/20 12:00 97.7 92 18 102/68 (79) 06/19/20 09:00 Room Air 06/19/20 08:00 98.2 98 19 139/69 (92) 95 06/19/20 04:00 98.3 96 18 136/78 (97) 96 06/19/20 00:00 97.9 97 18 137/61 (86) 94 06/18/20 21:16 Room Air 06/18/20 20:00 96.9 89 20 106/66 (79) 99 Intake and Output 06/18/20 06/19/20 19:00 07:00 Intake Total 1380 ml 2170 ml Output Total 1000 ml Balance 1380 ml 1170 ml Free Water 100 ml 310 ml IV Total 1100 ml 1200 ml Tube Feeding 180 ml 660 ml Output Urine Total 1000 ml General Appearance: cachetic HEENT: normocephalic, atraumatic Respiratory: chest wall non-tender, normal breath sounds Cardiovascular: normal peripheral pulses, normal rate Abdomen: normal bowel sounds Genitourinary: normal external genitalia Extremities: no clubbing Skin: no lesions Neurologic: information lead II-XII grossly normal Lymphatic: no neck adenopathy Laboratory Tests 06/19/20 07:00: White Blood Count 8.5, Red Blood Count 4.17L, Hemoglobin 12.4L, Hematocrit 41.3L , Mean Corpuscular Volume 99, Mean Corpuscular Hemoglobin 29.7, Mean Corpuscular Hemoglobin Concent 30.0L, Red Cell Distribution Width 15.1H, Platelet Count 269, Mean Platelet Volume 9.8, Neutrophils (%) (Auto) 62.6, Lymphocytes (%) (Auto) 29.9, Monocytes (%) (Auto) 5.4, Eosinophils (%) (Auto) 0.9, Basophils (%) (Auto) 1.3, Erythrocyte Sedimentation Rate 56H, Sodium Level 146H, Potassium Level 4.2, Chloride Level 108H, Carbon Dioxide Level 30, Anion Gap 8, Blood Urea Nitrogen 25H, Creatinine 1.0, Estimat Glomerular Filtration Rate > 60, Glucose Level 131#H, Calcium Level 8.7, Phosphorus Level 2.2L, Magnesium Level 2.7H, Total Bilirubin 0.3, Aspartate Amino Transf (AST/SGOT) 18 , Alanine Aminotransferase (ALT/SGPT) 35, Alkaline Phosphatase 180H, C-Reactive Protein, Quantitative 2.8H, Total Protein 8.8H, Albumin 2.6L, Globulin 6.2, Albumin/Globulin Ratio 0.4L Current Medications Medications (Trade) Dose Ordered Sig/Debi Route PRN Reason Start Time Stop Time Status Last Admin Dose Admin Acetaminophen (Tylenol) 650 mg Q6H PRN GT Mild Pain (Pain Scale 1-3) 06/06/20 16:15 07/02/20 16:14 06/10/20 20:51 Amantadine HCl (Symmetrel) 100 mg TWICE A DAY GT 06/06/20 18:00 07/02/20 08:59 06/19/20 08:29 Aspirin (ASA) 81 mg DAILY GT 06/07/20 09:00 07/17/20 08:59 06/19/20 08:29 Dextrose 1,000 ml @ 100 mls/hr Q10H IV 06/17/20 09:00 07/17/20 08:59 06/19/20 11:02 Dextrose (Dextrose 50%) 25 ml Q30M PRN IV Hypoglycemia 06/11/20 17:45 09/09/20 17:44 Dextrose (Dextrose 50%) 50 ml Q30M PRN IV Hypoglycemia 06/11/20 17:45 09/09/20 17:44 Famotidine (Pepcid) 20 mg BID GT 06/06/20 18:00 09/01/20 17:59 06/19/20 08:29 Heparin Sodium (Porcine) (Heparin 5000 units/ml) 5,000 units EVERY 12 HOURS SUBQ 06/06/20 21:00 07/17/20 08:59 06/19/20 08:31 Insulin Aspart (NovoLOG) Q6HR SUBQ 06/11/20 18:00 09/09/20 17:59 06/19/20 12:27 Insulin Detemir (Levemir) 20 units EVERY 12 HOURS SUBQ 06/18/20 21:00 09/09/20 20:59 06/19/20 08:37 Midodrine (Pro-Amatine) 2.5 mg TIDPRN PRN ORAL blood pressure below 100 sbp 06/13/20 10:15 09/11/20 10:14 Pravastatin Sodium (Pravachol) 20 mg BEDTIME GT 06/06/20 21:00 07/02/20 20:59 06/18/20 20:57 Sennosides (Senokot) 8.6 mg DAILY GT 06/07/20 09:00 07/02/20 08:59 06/19/20 08:29 Assessment/Plan Problems: (1) Sepsis (2) Multiple drug resistant organism (MDRO) culture positive (3) Hypernatremia (4) History of CVA (cerebrovascular accident) (5) History of hypertension (6) Parkinson disease (7) Severe protein-calorie malnutrition (8) Feeding by G-tube (9) Diabetes mellitus Assessment/Plan electrolytes fluctuating Improving ronquillo culture, Urine has proteus,,MDR COVID Negative iv fluids renal studies renal function improving urine electrolytes. sliding scale Latanya Mckeon MD Jun 19, 2020 16:45
--- NOTE | 2020-06-19 16:56 | Internal Med Progress Note ---
Subjective Physician Name Cirilo Rome Attending Physician Cirilo Rome MD Current Medications Medications (Trade) Dose Ordered Sig/Debi Route PRN Reason Start Time Stop Time Status Last Admin Dose Admin Acetaminophen (Tylenol) 650 mg Q6H PRN GT Mild Pain (Pain Scale 1-3) 06/06/20 16:15 07/02/20 16:14 06/10/20 20:51 Amantadine HCl (Symmetrel) 100 mg TWICE A DAY GT 06/06/20 18:00 07/02/20 08:59 06/19/20 08:29 Aspirin (ASA) 81 mg DAILY GT 06/07/20 09:00 07/17/20 08:59 06/19/20 08:29 Dextrose 1,000 ml @ 100 mls/hr Q10H IV 06/17/20 09:00 07/17/20 08:59 06/19/20 11:02 Dextrose (Dextrose 50%) 25 ml Q30M PRN IV Hypoglycemia 06/11/20 17:45 09/09/20 17:44 Dextrose (Dextrose 50%) 50 ml Q30M PRN IV Hypoglycemia 06/11/20 17:45 09/09/20 17:44 Famotidine (Pepcid) 20 mg BID GT 06/06/20 18:00 09/01/20 17:59 06/19/20 08:29 Heparin Sodium (Porcine) (Heparin 5000 units/ml) 5,000 units EVERY 12 HOURS SUBQ 06/06/20 21:00 07/17/20 08:59 06/19/20 08:31 Insulin Aspart (NovoLOG) Q6HR SUBQ 06/11/20 18:00 09/09/20 17:59 06/19/20 12:27 Insulin Detemir (Levemir) 20 units EVERY 12 HOURS SUBQ 06/18/20 21:00 09/09/20 20:59 06/19/20 08:37 Midodrine (Pro-Amatine) 2.5 mg TIDPRN PRN ORAL blood pressure below 100 sbp 06/13/20 10:15 09/11/20 10:14 Pravastatin Sodium (Pravachol) 20 mg BEDTIME GT 06/06/20 21:00 07/02/20 20:59 06/18/20 20:57 Sennosides (Senokot) 8.6 mg DAILY GT 06/07/20 09:00 07/02/20 08:59 06/19/20 08:29 Allergies: Coded Allergies: No Known Allergies (Unverified , 08/27/19) Subjective awake, alert, responsive, no acute distress. Objective Last Vital Signs Date Time Temp Pulse Resp B/P (MAP) Pulse Ox O2 Delivery O2 Flow Rate FiO2 06/19/20 16:00 98.3 102 18 115/64 (81) 94 06/19/20 09:00 Room Air Laboratory Tests Test 06/19/20 07:00 White Blood Count 8.5 K/UL (4.8-10.8) Red Blood Count 4.17 M/UL (4.70-6.10) L Hemoglobin 12.4 G/DL (14.2-18.0) L Hematocrit 41.3 % (42.0-52.0) L Mean Corpuscular Volume 99 FL (80-99) Mean Corpuscular Hemoglobin 29.7 PG (27.0-31.0) Mean Corpuscular Hemoglobin Concent 30.0 G/DL (32.0-36.0) L Red Cell Distribution Width 15.1 % (11.6-14.8) H Platelet Count 269 K/UL (150-450) Mean Platelet Volume 9.8 FL (6.5-10.1) Neutrophils (%) (Auto) 62.6 % (45.0-75.0) Lymphocytes (%) (Auto) 29.9 % (20.0-45.0) Monocytes (%) (Auto) 5.4 % (1.0-10.0) Eosinophils (%) (Auto) 0.9 % (0.0-3.0) Basophils (%) (Auto) 1.3 % (0.0-2.0) Erythrocyte Sedimentation Rate 56 MM/HR (0-20) H Sodium Level 146 MMOL/L (136-145) H Potassium Level 4.2 MMOL/L (3.5-5.1) Chloride Level 108 MMOL/L (98-107) H Carbon Dioxide Level 30 MMOL/L (21-32) Anion Gap 8 mmol/L (5-15) Blood Urea Nitrogen 25 mg/dL (7-18) H Creatinine 1.0 MG/DL (0.55-1.30) Estimat Glomerular Filtration Rate > 60 mL/min (>60) Glucose Level 131 MG/DL (74-106) #H Calcium Level 8.7 MG/DL (8.5-10.1) Phosphorus Level 2.2 MG/DL (2.5-4.9) L Magnesium Level 2.7 MG/DL (1.8-2.4) H Total Bilirubin 0.3 MG/DL (0.2-1.0) Aspartate Amino Transf (AST/SGOT) 18 U/L (15-37) Alanine Aminotransferase (ALT/SGPT) 35 U/L (12-78) Alkaline Phosphatase 180 U/L (46-116) H C-Reactive Protein, Quantitative 2.8 mg/dL (0.00-0.90) H Total Protein 8.8 G/DL (6.4-8.2) H Albumin 2.6 G/DL (3.4-5.0) L Globulin 6.2 g/dL Albumin/Globulin Ratio 0.4 (1.0-2.7) L Intake and Output 06/18/20 06/19/20 19:00 07:00 Intake Total 1380 ml 2170 ml Output Total 1000 ml Balance 1380 ml 1170 ml Free Water 100 ml 310 ml IV Total 1100 ml 1200 ml Tube Feeding 180 ml 660 ml Output Urine Total 1000 ml Objective General: No acute distress, awake and alert HEENT: NCAT, sclera anicteric, PERRL, EOMI. Neck: Supple, no significant jugular venous distention, Lungs: Fair inspiratory effort, clear to auscultation bilaterally, no Wheeze or Rales. Heart: Regular rate and rhythm, normal S1/S2, no murmurs Abdomen: soft, nontender, nondistended. Normoactive bowel sounds, PEG. Extremities: No Cyanosis , clubbing or edema. Neuro: A&O x 3, Able to move 5/5 upper extremities and 1/5 lower extremities. Skin: warm, no rash. Assessment/Plan Assessment/Plan ASSESSMENT: This is a 79-year-old male with: 1. Hyperglycemia. 2. Hypernatremia. 3. Urinary tract infection=MDR proteus. 4. Diabetes type 2. 5. Hypertension. 6. Hypercholesterolemia. 7. Dysphagia. 8. Parkinson disease. 9. Ulcerative proctitis. 10. Severe Protein-calorie malnutrition. 11. History of sacral decubitus ulcer stage IV. 12. Benign prostatic hypertrophy. 13. Gastroesophageal reflux disease. 14. Metabolic encephalopathy. 15. History of left hip fracture. TREATMENT: 1. Hyperglycemia/diabetes. The patient has been placed on a protocol using NovoLog sliding scale. The patient's blood sugars have been running in 300s. Hyperglycemia may be secondary to urinary tract infection. 2. Urinary tract infection. Urine culture =MDR proteus. results.ID=Dr Oliva 3. Hypertension. Continue amlodipine as above. 4. Hypercholesterolemia. Continue atorvastatin as above. 5. Dysphagia. The patient is status post PEG placement. 6. Parkinson disease. Continue amantadine as above. 7. Ulcerative proctitis. 8. Protein-calorie malnutrition. 9. Sacral decubitus ulcer stage IV. 10. Benign prostatic hypertrophy. Continue tamsulosin as above. 11. Gastroesophageal reflux disease. 12. Metabolic encephalopathy. 13. History of left hip fracture. Abx: Off Tolerate tube feeding @60 cc/hr. CODE STATUS: Full code. DVT prophylaxis: Heparin subcu. waiting for SNF placement. Cirilo Rome MD Jun 19, 2020 16:56
--- NOTE | 2020-06-19 19:09 | NUR ---
NURSE HAND-OFF: Important Events on Shift:n/a Patient Status: stable Diet: glucerna 1.5 60cc Pending Orders: n/a Pending Results/Labs:n/a Pending MD notification:n/a Latest Vital Signs: Temperature 98.3 , Pulse 102 , B/P 115 /64 , Respiratory Rate 18 , O2 SAT 94 , Room Air, O2 Flow Rate 3.0 . Vital Sign Comment: stable Latest Lane Fall Score: 40 Fall Risk: Medium Risk Safety Measures: Call light Within Reach, Bed Alarm Zone 1, Side Rails Side Rails x3, Bed position Low and Locked. Fall Precautions: Yellow Socks Yellow Gown Report given to JOHNNY Thurman.
--- NOTE | 2020-06-19 19:46 | NUR ---
NURSE NOTES: Received report from JOHNNY Joyce. Pt awake and AAO x 2, on room air. IV site intact and running IVF. Tolerating GT feeding well. HOB elevated. Adams intact and secured to the leg. No acute distress noted at this time. Bed locked, lowest position, alarm on, side rails up, call light within reach. Will continue to monitor.
[2020-06-20 04:00] VITALS: BP 96/61
[2020-06-20 05:00] VITALS: BP 119/71
[2020-06-20] MEDS: NovoLOG Insulin Flexpen SUBQ SCH ×3 (05:05→18:02)
[2020-06-20] MEDS: Acetaminophen 650mg/20.3ml GT PRN ×2 (05:15→20:21)
--- NOTE | 2020-06-20 06:31 | NUR ---
NURSE HAND-OFF: Important Events on Shift:Fever, tachycardia Patient Status: Vitals stable except HR Diet: glucerna 1.5 60cc/hr Pending Orders: N Pending Results/Labs:N Pending MD notification:N Latest Vital Signs: Temperature 99.5 , Pulse 108 , B/P 119 /71 , Respiratory Rate 18 , O2 SAT 99 , Room Air, O2 Flow Rate 3.0 . Vital Sign Comment: Latest Lane Fall Score: 40 Fall Risk: Medium Risk Safety Measures: Call light Within Reach, Bed Alarm Zone 1, Side Rails Side Rails x3, Bed position Low and Locked. Fall Precautions: Yellow Socks Yellow Gown Addendum: 06/20/20 at 07 by SORAYA CABRERA RN RN HAND-OFF: Report given to JOHNNY Daniels.
--- NOTE | 2020-06-20 07:28 | NUR ---
NURSE NOTES: Report received from JOHNNY Thurman. Patient awake in bed, alert and oriented x 1, no SOB, bed in lowest position with alarm on and breaks engaged, no s/sx of pain or discomfort upon assessment, on room air, GT in place running as prescribed, IV line patent and intact on on the left FA, will continue to monitor and proceed with plan of care, call light within reach.
--- NOTE | 2020-06-20 07:53 | General Progress Note ---
Assessment/Plan Problem List: (1) Hypernatremia ICD Codes: E87.0 - Hyperosmolality and hypernatremia SNOMED: 483975782 (2) Feeding by G-tube ICD Codes: Z93.1 - Gastrostomy status SNOMED: 830027128, 114265773, 603839177 (3) Diabetes mellitus ICD Codes: E11.9 - Type 2 diabetes mellitus without complications SNOMED: 94282352 (4) History of CVA (cerebrovascular accident) ICD Codes: Z86.73 - Personal history of transient ischemic attack (TIA), and cerebral infarction without residual deficits SNOMED: 937485922 (5) Parkinson disease ICD Codes: G20 - Parkinson's disease SNOMED: 77971388 Assessment/Plan: continue Levemir 20 units bid continue Novolog sliding scale high dose every 6 hours continue to hold Metformin due to lactic acidosis on presentation Subjective ROS Limited/Unobtainable: Yes Allergies: Coded Allergies: No Known Allergies (Unverified , 08/27/19) Subjective events noted - interval notes reviewed glucose values higher while on TF TF is off for 4 hours in am Item Value Date Time Bedside Blood Glucose 258 mg/dl H 06/20/20 0529 Bedside Blood Glucose 252 mg/dl H 06/19/20 2345 Bedside Blood Glucose 198 mg/dl H 06/19/20 2021 Bedside Blood Glucose 219 mg/dl H 06/19/20 1800 Bedside Blood Glucose 145 mg/dl H 06/19/20 1227 Bedside Blood Glucose 161 mg/dl H 06/19/20 0837 Bedside Blood Glucose 116 mg/dl 06/19/20 0548 Bedside Blood Glucose 189 mg/dl H 06/19/20 0016 Objective Last 24 Hour Vital Signs Date Time Temp Pulse Resp B/P (MAP) Pulse Ox O2 Delivery O2 Flow Rate FiO2 06/20/20 05:45 99.5 06/20/20 05:00 99.5 108 18 119/71 (87) 99 06/20/20 04:00 100.2 105 18 96/61 (73) 99 06/19/20 23:49 98.1 106 20 140/64 (89) 98 06/19/20 20:54 Room Air 06/19/20 20:00 97.5 108 20 105/66 (79) 97 06/19/20 16:00 98.3 102 18 115/64 (81) 94 06/19/20 12:00 97.7 92 18 102/68 (79) 06/19/20 09:00 Room Air 06/19/20 08:00 98.2 98 19 139/69 (92) 95 Intake and Output 06/19/20 06/20/20 19:00 07:00 Intake Total 1180 ml 1920 ml Output Total 1200 ml 1600 ml Balance -20 ml 320 ml Free Water 100 ml 260 ml IV Total 900 ml 1000 ml Tube Feeding 180 ml 660 ml Output Urine Total 1200 ml 1600 ml Height (Feet): 5 Height (Inches): 5.00 Weight (Pounds): 123 General Appearance: no apparent distress Neck: normal alignment Cardiovascular: normal rate Respiratory/Chest: decreased breath sounds Abdomen: normal bowel sounds Objective Current Medications Medications (Trade) Dose Ordered Sig/Debi Route PRN Reason Start Time Stop Time Status Last Admin Dose Admin Acetaminophen (Tylenol) 650 mg Q6H PRN GT Mild Pain (Pain Scale 1-3) 06/06/20 16:15 07/02/20 16:14 06/20/20 05:15 Amantadine HCl (Symmetrel) 100 mg TWICE A DAY GT 06/06/20 18:00 07/02/20 08:59 06/19/20 18:00 Aspirin (ASA) 81 mg DAILY GT 06/07/20 09:00 07/17/20 08:59 06/19/20 08:29 Dextrose 1,000 ml @ 100 mls/hr Q10H IV 06/17/20 09:00 07/17/20 08:59 06/20/20 05:06 Dextrose (Dextrose 50%) 25 ml Q30M PRN IV Hypoglycemia 06/11/20 17:45 09/09/20 17:44 Dextrose (Dextrose 50%) 50 ml Q30M PRN IV Hypoglycemia 06/11/20 17:45 09/09/20 17:44 Famotidine (Pepcid) 20 mg BID GT 06/06/20 18:00 09/01/20 17:59 06/19/20 18:00 Heparin Sodium (Porcine) (Heparin 5000 units/ml) 5,000 units EVERY 12 HOURS SUBQ 06/06/20 21:00 07/17/20 08:59 06/19/20 20:18 Insulin Aspart (NovoLOG) Q6HR SUBQ 06/11/20 18:00 09/09/20 17:59 06/20/20 05:05 Insulin Detemir (Levemir) 20 units EVERY 12 HOURS SUBQ 06/18/20 21:00 09/09/20 20:59 06/19/20 20:20 Midodrine (Pro-Amatine) 2.5 mg TIDPRN PRN ORAL blood pressure below 100 sbp 06/13/20 10:15 09/11/20 10:14 Pravastatin Sodium (Pravachol) 20 mg BEDTIME GT 06/06/20 21:00 07/02/20 20:59 06/19/20 20:15 Sennosides (Senokot) 8.6 mg DAILY GT 06/07/20 09:00 07/02/20 08:59 06/19/20 08:29 Gregory Pastrana MD Jun 20, 2020 07:53
[2020-06-20 08:00] VITALS: BP 108/66
[2020-06-20] MEDS: Sennosides 8.6mg tab GT SCH (09:11)
[2020-06-20] MEDS: Aspirin Baby 81mg GT SCH (09:11)
[2020-06-20] MEDS: Amantadine 100mg cap GT SCH ×2 (09:11→17:08)
[2020-06-20] MEDS: Heparin 5000 units/ml inj SUBQ SCH ×2 (09:13→20:20)
[2020-06-20] MEDS: Levemir Flexpen SUBQ SCH ×2 (09:15→20:18)
--- NOTE | 2020-06-20 10:43 | Infectious Diseases Prog Note ---
Assessment/Plan 79yo M with: Fever, SP Leukocytosis, SP KELLY, improving UTI, sp rx 06/01 UA w/ pyuria, UCx + P Mirabilis ESBL 06/01 BCx Neg 06/01 CXR: No acute process COVID rapid test neg H/o ESBL Proteus in UCx in Oct 2019 Renal US w/ BL cysts PMH: DM2 Parkinson's dementia Bedridden G-tube Plan: Monitor off abx as he is stable 06/10 SP audra #8 06/02 SP erta #1 06/01 SP cefepime, vanco, flagyl x1 in ED Monitor CBC/BMP Trend hemodynamics, temp curve discharge planing D/w RN Thank you for this consult. [facility] will continue to follow. Subjective Allergies: Coded Allergies: No Known Allergies (Unverified , 08/27/19) Afebrile No Leukocytosis JIGNESH Objective Last 24 Hour Vital Signs Date Time Temp Pulse Resp B/P (MAP) Pulse Ox O2 Delivery O2 Flow Rate FiO2 06/20/20 09:00 Room Air 06/20/20 08:00 98.7 71 18 108/66 (80) 98 06/20/20 05:45 99.5 06/20/20 05:00 99.5 108 18 119/71 (87) 99 06/20/20 04:00 100.2 105 18 96/61 (73) 99 06/19/20 23:49 98.1 106 20 140/64 (89) 98 06/19/20 20:54 Room Air 06/19/20 20:00 97.5 108 20 105/66 (79) 97 06/19/20 16:00 98.3 102 18 115/64 (81) 94 06/19/20 12:00 97.7 92 18 102/68 (79) Height (Feet): 5 Height (Inches): 5.00 Weight (Pounds): 123 GEN: NAD, on RA HEENT: NCAT, MMM, EOMI Pulm: Equal chest rise and fall B/L, No accessory muscle use ABD: Soft, ND SKIN: Exposed skin with no rash, Normal in color Current Medications Medications (Trade) Dose Ordered Sig/Debi Route PRN Reason Start Time Stop Time Status Last Admin Dose Admin Acetaminophen (Tylenol) 650 mg Q6H PRN GT Mild Pain (Pain Scale 1-3) 06/06/20 16:15 07/02/20 16:14 06/20/20 05:15 Amantadine HCl (Symmetrel) 100 mg TWICE A DAY GT 06/06/20 18:00 07/02/20 08:59 06/20/20 09:11 Aspirin (ASA) 81 mg DAILY GT 06/07/20 09:00 07/17/20 08:59 06/20/20 09:11 Dextrose 1,000 ml @ 100 mls/hr Q10H IV 06/17/20 09:00 07/17/20 08:59 06/20/20 05:06 Dextrose (Dextrose 50%) 25 ml Q30M PRN IV Hypoglycemia 06/11/20 17:45 09/09/20 17:44 Dextrose (Dextrose 50%) 50 ml Q30M PRN IV Hypoglycemia 06/11/20 17:45 09/09/20 17:44 Famotidine (Pepcid) 20 mg BID GT 06/06/20 18:00 09/01/20 17:59 06/20/20 09:11 Heparin Sodium (Porcine) (Heparin 5000 units/ml) 5,000 units EVERY 12 HOURS SUBQ 06/06/20 21:00 07/17/20 08:59 06/20/20 09:13 Insulin Aspart (NovoLOG) Q6HR SUBQ 06/11/20 18:00 09/09/20 17:59 06/20/20 05:05 Insulin Detemir (Levemir) 20 units EVERY 12 HOURS SUBQ 06/18/20 21:00 09/09/20 20:59 06/20/20 09:15 Midodrine (Pro-Amatine) 2.5 mg TIDPRN PRN ORAL blood pressure below 100 sbp 06/13/20 10:15 09/11/20 10:14 Pravastatin Sodium (Pravachol) 20 mg BEDTIME GT 06/06/20 21:00 07/02/20 20:59 06/19/20 20:15 Sennosides (Senokot) 8.6 mg DAILY GT 06/07/20 09:00 07/02/20 08:59 06/20/20 09:11 Sonu Sarmiento MD Jun 20, 2020 10:43
--- NOTE | 2020-06-20 11:10 | Nephrology Progress Note ---
Assessment/Plan Problem List: (1) Hypernatremia (2) Sepsis (3) History of CVA (cerebrovascular accident) (4) Parkinson disease (5) Feeding by G-tube (6) Dehydration Assessment KELLY, resolving, serum creatinine of 1.9 now down to 1.2 Hypernatremia, dehydration, free water deficit Sepsis Diabetes mellitus [id number] GT feeding Severe protein calorie malnutrition History of CVA History of hypertension Parkinson's disease Plan June 20: No chemistry panel done today. Stable from renal standpoint. Will order chemistry panel tomorrow June 19: Labs reviewed. Phosphorus supplement given. Stable from renal standpoint of view. June 18: Lab reviewed. Serum sodium lower. Creatinine 1.1. Continue current management. June 17: Lab reviewed. Sodium 160. Creatinine 1.3. Calcium lower at 9. Will continue D5W. June 16: Labs reviewed. Renal parameters stable. Serum calcium lowering. Serum sodium lowering. Serum creatinine 1.3. Another 1 L of D5W ordered. June 15: Lab reviewed. Serum sodium high. 1 L D5W given. Serum creatinine 1.4. Pamidronate given yesterday. Continue to monitor serum calcium. June 14: Lab reviewed. Serum calcium high corrected for low serum albumin. 60 mg pamidronate ID given. Continue to monitor renal parameters calcium and phosphorus. June 13: Lab reviewed. Medication list reviewed. Renal parameters stable. Will watch serum calcium and serum sodium. Chemistry panel tomorrow. June 12: Labs reviewed. Stable from renal standpoint of view. June 11: Labs reviewed. Stable renal parameters. June 10: Lab reviewed. Serum potassium normalized. Will give 1 L of D5W for high serum sodium. Continue per consultants. June 09: Labs reviewed. Discussed with RN. Serum potassium elevated. Suspect hemolysis. Will repeat serum potassium. DC all potassium supplements. June 08: Serum sodium higher. Will give 1 L of D5W. Renal parameters stable. Continue to monitor electrolytes. Continue per consultants. June 07: 1 bolus of D5W. Renal parameters stable. Serum sodium slightly high. Stable from renal standpoint of view. June 06: We will again discontinue the IV ordered. Stable from renal standpoint of view. Will start midodrine for low blood pressure. June 05: DC IV fluid. Potassium supplement given. Stable from renal standpoint to view. June 04: Potassium and magnesium supplement IV given, stable from renal standpoint of view. IV fluid D5W Monitor electrolytes Monitor renal parameters Hold blood pressure medication since blood pressure low Per orders, per consultants Subjective ROS Limited/Unobtainable: No Constitutional: Reports: malaise Objective Objective Last 24 Hour Vital Signs Date Time Temp Pulse Resp B/P (MAP) Pulse Ox O2 Delivery O2 Flow Rate FiO2 06/20/20 09:00 Room Air 06/20/20 08:00 98.7 71 18 108/66 (80) 98 06/20/20 05:45 99.5 06/20/20 05:00 99.5 108 18 119/71 (87) 99 06/20/20 04:00 100.2 105 18 96/61 (73) 99 06/19/20 23:49 98.1 106 20 140/64 (89) 98 06/19/20 20:54 Room Air 06/19/20 20:00 97.5 108 20 105/66 (79) 97 06/19/20 16:00 98.3 102 18 115/64 (81) 94 06/19/20 12:00 97.7 92 18 102/68 (79) Intake and Output 06/19/20 06/20/20 19:00 07:00 Intake Total 1180 ml 1920 ml Output Total 1200 ml 1600 ml Balance -20 ml 320 ml Free Water 100 ml 260 ml IV Total 900 ml 1000 ml Tube Feeding 180 ml 660 ml Output Urine Total 1200 ml 1600 ml Height (Feet): 5 Height (Inches): 5.00 Weight (Pounds): 123 General Appearance: no apparent distress Cardiovascular: tachycardia Respiratory/Chest: decreased breath sounds Abdomen: soft Objective No change Eddie Nelson MD Jun 20, 2020 11:10
[2020-06-20 12:00] VITALS: BP 115/70
--- NOTE | 2020-06-20 12:31 | Surgery Progress Note ---
Surgery Progress Note Subjective Symptoms: improved, tolerating diet, voiding well, passing flatus, BM Objective Last 24 Hour Vital Signs Date Time Temp Pulse Resp B/P (MAP) Pulse Ox O2 Delivery O2 Flow Rate FiO2 06/20/20 12:00 98.3 75 20 115/70 (85) 98 06/20/20 09:00 Room Air 06/20/20 08:00 98.7 71 18 108/66 (80) 98 06/20/20 05:45 99.5 06/20/20 05:00 99.5 108 18 119/71 (87) 99 06/20/20 04:00 100.2 105 18 96/61 (73) 99 06/19/20 23:49 98.1 106 20 140/64 (89) 98 06/19/20 20:54 Room Air 06/19/20 20:00 97.5 108 20 105/66 (79) 97 06/19/20 16:00 98.3 102 18 115/64 (81) 94 I&O Intake and Output 06/19/20 06/20/20 19:00 07:00 Intake Total 1180 ml 1920 ml Output Total 1200 ml 1600 ml Balance -20 ml 320 ml Free Water 100 ml 260 ml IV Total 900 ml 1000 ml Tube Feeding 180 ml 660 ml Output Urine Total 1200 ml 1600 ml Dressing: dry Wound: clean Cardiovascular: RSR Respiratory: clear Abdomen: soft, non-tender, present bowel sounds Extremities: no edema, no tenderness, no cyanosis Plan Problems: (1) Hypernatremia (2) Dehydration (3) Hip fracture, left (4) Diabetes mellitus (5) History of hypertension (6) Severe protein-calorie malnutrition Assessment & Plan: DAILY ESTIMATED NEEDS: Needs based on Sepsis, DM/ 54kg 30-40 kcals/kg 9165-0259 total kcals 1.25-2 g protein/kg 68-108 g total protein 25-35ml/kcal mL/kg 9970-9134 total fluid mLs NUTRITION DIAGNOSIS: * Swallowing difficulty R/T dysphagia, as evidenced by Pt is GT dep. (CURRENT TF: Glucerna 1.5 @ 30ml/hr x 24 hrs) ENTERAL NUTRITION RECOMMENDATIONS: Glucerna 1.5 @ 60ml/hr x 20 hrs to provide 1200ml, 1800kcal, 99g prot, 911ml free water, 160g carbs * Rec to INCREASE TF GOAL to 60ml/hr for 20 hrs * HOB over 30 degrees, increased water flushes * TF at goal meets 100% est needs. -------- ADDITIONAL RECOMMENDATIONS: * Calibrated bedscale wt for accurate CBW * Monitor lytes daily w/ TF, replete as needed * Pt may require increase in insulin regimen for improved BG W/ continuous TF infusion * Wound healing: DOMENICA BID, F/up w/ WC eval . (7) Acute encephalopathy (8) Pressure Ulcer Of Sacral Region, Unstageable Assessment & Plan: Pt presented on admission with purple and indurated area at Sacrococcygeal at previously compromised site(L)7cm x (W)3cm.Surrounding Hyperpigmentation at Sacrum. Non-Blanching erythema without fluctuance R heel. Non-Blanching erythema with delineated margins L heel (L)4.5cm x (W)5.5cm. L Heel is boggy . Tx.Plan: Apply Moisture Barrier Paste to Sacrum. Cover with Optifoam drsgs. Change every 3 days and prn. Apply Cavilon Skin Barrier to R and L trochanter. Cover each site with Optifoam drsgs. Change every 7 days and prn. Apply Cavilon Skin Barrier to each heel and malleoli. Cover each site with Optifoam drsgs. Change every 7 days and prn. Reposition at least every 2hours or as tolerated. Off-load heels with pillow. improving cont current care tube site okay (9) Feeding by G-tube (10) Abdominal distention (11) Multiple drug resistant organism (MDRO) culture positive (12) Sepsis (13) History of CVA (cerebrovascular accident) (14) Parkinson disease James Breen Jun 20, 2020 12:31
--- NOTE | 2020-06-20 14:12 | Internal Med Progress Note ---
Subjective Physician Name Cirilo Rome Attending Physician Cirilo Rome MD Current Medications Medications (Trade) Dose Ordered Sig/Debi Route PRN Reason Start Time Stop Time Status Last Admin Dose Admin Acetaminophen (Tylenol) 650 mg Q6H PRN GT Mild Pain (Pain Scale 1-3) 06/06/20 16:15 07/02/20 16:14 06/20/20 05:15 Amantadine HCl (Symmetrel) 100 mg TWICE A DAY GT 06/06/20 18:00 07/02/20 08:59 06/20/20 09:11 Aspirin (ASA) 81 mg DAILY GT 06/07/20 09:00 07/17/20 08:59 06/20/20 09:11 Dextrose 1,000 ml @ 100 mls/hr Q10H IV 06/17/20 09:00 07/17/20 08:59 06/20/20 05:06 Dextrose (Dextrose 50%) 25 ml Q30M PRN IV Hypoglycemia 06/11/20 17:45 09/09/20 17:44 Dextrose (Dextrose 50%) 50 ml Q30M PRN IV Hypoglycemia 06/11/20 17:45 09/09/20 17:44 Famotidine (Pepcid) 20 mg BID GT 06/06/20 18:00 09/01/20 17:59 06/20/20 09:11 Heparin Sodium (Porcine) (Heparin 5000 units/ml) 5,000 units EVERY 12 HOURS SUBQ 06/06/20 21:00 07/17/20 08:59 06/20/20 09:13 Insulin Aspart (NovoLOG) Q6HR SUBQ 06/11/20 18:00 09/09/20 17:59 06/20/20 12:19 Insulin Detemir (Levemir) 20 units EVERY 12 HOURS SUBQ 06/18/20 21:00 09/09/20 20:59 06/20/20 09:15 Midodrine (Pro-Amatine) 2.5 mg TIDPRN PRN ORAL blood pressure below 100 sbp 06/13/20 10:15 09/11/20 10:14 Pravastatin Sodium (Pravachol) 20 mg BEDTIME GT 06/06/20 21:00 07/02/20 20:59 06/19/20 20:15 Sennosides (Senokot) 8.6 mg DAILY GT 06/07/20 09:00 07/02/20 08:59 06/20/20 09:11 Allergies: Coded Allergies: No Known Allergies (Unverified , 08/27/19) Subjective awake, alert, responsive, no acute distress. Cl fever 100.9 Objective Last Vital Signs Date Time Temp Pulse Resp B/P (MAP) Pulse Ox O2 Delivery O2 Flow Rate FiO2 06/20/20 12:00 98.3 75 20 115/70 (85) 98 06/20/20 09:00 Room Air Intake and Output 06/19/20 06/20/20 19:00 07:00 Intake Total 1180 ml 1920 ml Output Total 1200 ml 1600 ml Balance -20 ml 320 ml Free Water 100 ml 260 ml IV Total 900 ml 1000 ml Tube Feeding 180 ml 660 ml Output Urine Total 1200 ml 1600 ml Objective General: No acute distress, awake and alert HEENT: NCAT, sclera anicteric, PERRL, EOMI. Neck: Supple, no significant jugular venous distention, Lungs: Fair inspiratory effort, clear to auscultation bilaterally, no Wheeze or Rales. Heart: Regular rate and rhythm, normal S1/S2, no murmurs Abdomen: soft, nontender, nondistended. Normoactive bowel sounds, PEG. Extremities: No Cyanosis , clubbing or edema. Neuro: A&O x 3, Able to move 5/5 upper extremities and 1/5 lower extremities. Skin: warm, no rash. Assessment/Plan Assessment/Plan ASSESSMENT: This is a 79-year-old male with: 1. Hyperglycemia. 2. Hypernatremia. 3. Urinary tract infection=MDR proteus. 4. Diabetes type 2. 5. Hypertension. 6. Hypercholesterolemia. 7. Dysphagia. 8. Parkinson disease. 9. Ulcerative proctitis. 10. Severe Protein-calorie malnutrition. 11. History of sacral decubitus ulcer stage IV. 12. Benign prostatic hypertrophy. 13. Gastroesophageal reflux disease. 14. Metabolic encephalopathy. 15. History of left hip fracture. TREATMENT: 1. Hyperglycemia/diabetes. The patient has been placed on a protocol using NovoLog sliding scale. The patient's blood sugars have been running in 300s. Hyperglycemia may be secondary to urinary tract infection. 2. Urinary tract infection. Urine culture =MDR proteus. results.ID=Dr [place] 3. Hypertension. Continue amlodipine as above. 4. Hypercholesterolemia. Continue atorvastatin as above. 5. Dysphagia. The patient is status post PEG placement. 6. Parkinson disease. Continue amantadine as above. 7. Ulcerative proctitis. 8. Protein-calorie malnutrition. 9. Sacral decubitus ulcer stage IV. 10. Benign prostatic hypertrophy. Continue tamsulosin as above. 11. Gastroesophageal reflux disease. 12. Metabolic encephalopathy. 13. History of left hip fracture. Abx: Off Tolerate tube feeding @60 cc/hr. CODE STATUS: Full code. DVT prophylaxis: Heparin subcu. waiting for SNF placement. Cirilo Rome MD Jun 20, 2020 14:12
[2020-06-20 16:00] VITALS: BP 120/70
--- NOTE | 2020-06-20 16:46 | Pulmonology Progress Note ---
Subjective ROS Limited/Unobtainable: No Constitutional: Reports: no symptoms, anorexia HEENT: Repors: no symptoms Allergies: Coded Allergies: No Known Allergies (Unverified , 08/27/19) All Systems: reviewed and negative except above Objective Last 24 Hour Vital Signs Date Time Temp Pulse Resp B/P (MAP) Pulse Ox O2 Delivery O2 Flow Rate FiO2 06/20/20 16:00 97.7 80 18 120/70 (87) 99 06/20/20 12:00 98.3 75 20 115/70 (85) 98 06/20/20 09:00 Room Air 06/20/20 08:00 98.7 71 18 108/66 (80) 98 06/20/20 05:45 99.5 06/20/20 05:00 99.5 108 18 119/71 (87) 99 06/20/20 04:00 100.2 105 18 96/61 (73) 99 06/19/20 23:49 98.1 106 20 140/64 (89) 98 06/19/20 20:54 Room Air 06/19/20 20:00 97.5 108 20 105/66 (79) 97 Intake and Output 06/19/20 06/20/20 19:00 07:00 Intake Total 1180 ml 1920 ml Output Total 1200 ml 1600 ml Balance -20 ml 320 ml Free Water 100 ml 260 ml IV Total 900 ml 1000 ml Tube Feeding 180 ml 660 ml Output Urine Total 1200 ml 1600 ml General Appearance: cachetic HEENT: normocephalic, atraumatic Respiratory: chest wall non-tender, normal breath sounds Cardiovascular: normal peripheral pulses, normal rate Abdomen: normal bowel sounds Genitourinary: normal external genitalia Extremities: no clubbing Skin: no lesions Neurologic: acidizer water well II-XII grossly normal Lymphatic: no neck adenopathy Current Medications Medications (Trade) Dose Ordered Sig/Debi Route PRN Reason Start Time Stop Time Status Last Admin Dose Admin Acetaminophen (Tylenol) 650 mg Q6H PRN GT Mild Pain (Pain Scale 1-3) 06/06/20 16:15 07/02/20 16:14 06/20/20 05:15 Amantadine HCl (Symmetrel) 100 mg TWICE A DAY GT 06/06/20 18:00 07/02/20 08:59 06/20/20 09:11 Aspirin (ASA) 81 mg DAILY GT 06/07/20 09:00 07/17/20 08:59 06/20/20 09:11 Dextrose 1,000 ml @ 100 mls/hr Q10H IV 06/17/20 09:00 07/17/20 08:59 06/20/20 16:29 Dextrose (Dextrose 50%) 25 ml Q30M PRN IV Hypoglycemia 06/11/20 17:45 09/09/20 17:44 Dextrose (Dextrose 50%) 50 ml Q30M PRN IV Hypoglycemia 06/11/20 17:45 09/09/20 17:44 Famotidine (Pepcid) 20 mg BID GT 06/06/20 18:00 09/01/20 17:59 06/20/20 09:11 Heparin Sodium (Porcine) (Heparin 5000 units/ml) 5,000 units EVERY 12 HOURS SUBQ 06/06/20 21:00 07/17/20 08:59 06/20/20 09:13 Insulin Aspart (NovoLOG) Q6HR SUBQ 06/11/20 18:00 09/09/20 17:59 06/20/20 12:19 Insulin Detemir (Levemir) 20 units EVERY 12 HOURS SUBQ 06/18/20 21:00 09/09/20 20:59 06/20/20 09:15 Midodrine (Pro-Amatine) 2.5 mg TIDPRN PRN ORAL blood pressure below 100 sbp 06/13/20 10:15 09/11/20 10:14 Pravastatin Sodium (Pravachol) 20 mg BEDTIME GT 06/06/20 21:00 07/02/20 20:59 06/19/20 20:15 Sennosides (Senokot) 8.6 mg DAILY GT 06/07/20 09:00 07/02/20 08:59 06/20/20 09:11 Assessment/Plan Problems: (1) Sepsis (2) Multiple drug resistant organism (MDRO) culture positive (3) Hypernatremia (4) History of CVA (cerebrovascular accident) (5) History of hypertension (6) Parkinson disease (7) Severe protein-calorie malnutrition (8) Feeding by G-tube (9) Diabetes mellitus Assessment/Plan looks better electrolytes fluctuating Improving ronquillo culture, Urine has proteus,,MDR COVID Negative iv fluids renal studies renal function improving urine electrolytes. sliding scale Latanya Mckeon MD Jun 20, 2020 16:46
--- NOTE | 2020-06-20 19:36 | NUR ---
NURSE HAND-OFF: Important Events on Shift:[IV fluids, GT feeding, safety and comfort] Patient Status: [stable] Diet: [Glucerna 1.5 at 60] Pending Orders: [] Pending Results/Labs:[] Pending MD notification:[] Latest Vital Signs: Temperature 97.7 , Pulse 80 , B/P 120 /70 , Respiratory Rate 18 , O2 SAT 99 , Room Air, O2 Flow Rate 3.0 . Vital Sign Comment: [] Latest Lane Fall Score: 40 Fall Risk: Medium Risk Safety Measures: Call light Within Reach, Bed Alarm Zone 1, Side Rails Side Rails x3, Bed position Low and Locked. Fall Precautions: Yellow Socks Yellow Gown Report given to [JOHNNY Thurman].
--- NOTE | 2020-06-20 19:42 | NUR ---
NURSE NOTES: Received report from JOHNNY Daniels. Pt awake and AAO x 1-2, on room air. IV site intact and running IVF. Tolerating GT feeding well. HOB elevated. Adams intact and secured to the leg. No acute distress noted at this time. Bed locked, lowest position, alarm on, side rails up, call light within reach. Will continue to monitor.
[2020-06-20 20:00] VITALS: BP 98/52
[2020-06-21] VITALS (7 sets, daily range): BP systolic 108–143; BP diastolic 69–82
[2020-06-21] MEDS: NovoLOG Insulin Flexpen SUBQ SCH ×5 (00:40→23:16)
[2020-06-21] MEDS: Acetaminophen 650mg/20.3ml GT PRN ×3 (04:01→22:37)
--- NOTE | 2020-06-21 06:29 | General Progress Note ---
Assessment/Plan Problem List: (1) Hypernatremia ICD Codes: E87.0 - Hyperosmolality and hypernatremia SNOMED: 061899924 (2) Feeding by G-tube ICD Codes: Z93.1 - Gastrostomy status SNOMED: 211685901, 735467665, 697917135 (3) Diabetes mellitus ICD Codes: E11.9 - Type 2 diabetes mellitus without complications SNOMED: 49543588 (4) History of CVA (cerebrovascular accident) ICD Codes: Z86.73 - Personal history of transient ischemic attack (TIA), and cerebral infarction without residual deficits SNOMED: 292918426 (5) Parkinson disease ICD Codes: G20 - Parkinson's disease SNOMED: 86855356 Assessment/Plan: increase Levemir to 28 units bid continue Novolog sliding scale high dose every 6 hours continue to hold Metformin due to lactic acidosis on presentation Subjective ROS Limited/Unobtainable: Yes Allergies: Coded Allergies: No Known Allergies (Unverified , 08/27/19) Subjective events noted - interval notes reviewed glucose values higher while on TF and dextrose Item Value Date Time Bedside Blood Glucose 316 mg/dl H 06/21/20 0600 Bedside Blood Glucose 225 mg/dl H 06/21/20 0040 Bedside Blood Glucose 235 mg/dl H 06/20/20 2018 Bedside Blood Glucose 211 mg/dl H 06/20/20 1802 Bedside Blood Glucose 219 mg/dl H 06/20/20 1219 Bedside Blood Glucose 258 mg/dl H 06/20/20 0915 Bedside Blood Glucose 258 mg/dl H 06/20/20 0529 Objective Last 24 Hour Vital Signs Date Time Temp Pulse Resp B/P (MAP) Pulse Ox O2 Delivery O2 Flow Rate FiO2 06/21/20 04:31 99.3 06/21/20 04:00 102.2 113 24 124/70 (88) 93 06/21/20 00:00 97.7 111 22 108/82 (91) 95 06/20/20 21:00 Room Air 06/20/20 20:00 100.9 112 22 98/52 (67) 96 06/20/20 16:00 97.7 80 18 120/70 (87) 99 06/20/20 12:00 98.3 75 20 115/70 (85) 98 06/20/20 09:00 Room Air 06/20/20 08:00 98.7 71 18 108/66 (80) 98 Intake and Output 06/20/20 06/21/20 19:00 07:00 Intake Total 780 ml 880 ml Output Total 4800 ml 1400 ml Balance -4020 ml -520 ml Free Water 180 ml 220 ml Tube Feeding 600 ml 660 ml Output Urine Total 4800 ml 1400 ml # Bowel Movements 1 Height (Feet): 5 Height (Inches): 5.00 Weight (Pounds): 123 General Appearance: no apparent distress Neck: normal alignment Cardiovascular: normal rate Respiratory/Chest: decreased breath sounds Abdomen: normal bowel sounds Objective Current Medications Medications (Trade) Dose Ordered Sig/Debi Route PRN Reason Start Time Stop Time Status Last Admin Dose Admin Acetaminophen (Tylenol) 650 mg Q6H PRN GT Mild Pain (Pain Scale 1-3) 06/06/20 16:15 07/02/20 16:14 06/21/20 04:01 Amantadine HCl (Symmetrel) 100 mg TWICE A DAY GT 06/06/20 18:00 07/02/20 08:59 06/20/20 17:08 Aspirin (ASA) 81 mg DAILY GT 06/07/20 09:00 07/17/20 08:59 06/20/20 09:11 Dextrose 1,000 ml @ 100 mls/hr Q10H IV 06/17/20 09:00 07/17/20 08:59 06/21/20 03:04 Dextrose (Dextrose 50%) 25 ml Q30M PRN IV Hypoglycemia 06/11/20 17:45 09/09/20 17:44 Dextrose (Dextrose 50%) 50 ml Q30M PRN IV Hypoglycemia 06/11/20 17:45 09/09/20 17:44 Famotidine (Pepcid) 20 mg BID GT 06/06/20 18:00 09/01/20 17:59 06/20/20 17:08 Heparin Sodium (Porcine) (Heparin 5000 units/ml) 5,000 units EVERY 12 HOURS SUBQ 06/06/20 21:00 07/17/20 08:59 06/20/20 20:20 Insulin Aspart (NovoLOG) Q6HR SUBQ 06/11/20 18:00 09/09/20 17:59 06/21/20 05:47 Insulin Detemir (Levemir) 20 units EVERY 12 HOURS SUBQ 06/18/20 21:00 09/09/20 20:59 06/20/20 20:18 Midodrine (Pro-Amatine) 2.5 mg TIDPRN PRN ORAL blood pressure below 100 sbp 06/13/20 10:15 09/11/20 10:14 Pravastatin Sodium (Pravachol) 20 mg BEDTIME GT 06/06/20 21:00 07/02/20 20:59 06/20/20 20:16 Sennosides (Senokot) 8.6 mg DAILY GT 06/07/20 09:00 07/02/20 08:59 06/20/20 09:11 Gregory Pastrana MD Jun 21, 2020 06:29
--- NOTE | 2020-06-21 07:04 | NUR ---
NURSE NOTES: Report received from JOHNNY Thurman. Patient awake in bed, alert and oriented x 1, no shortness of breath, bed in lowest position with alarm on and breaks engaged, no s/sx of pain or discomfort upon assessment, on room air, GT in place running as prescribed, IV line patent and intact on on the left forearm, will continue to monitor and proceed with plan of care, call light within reach
--- NOTE | 2020-06-21 07:09 | NUR ---
NURSE HAND-OFF: Important Events on Shift:Tachycardia, fever Patient Status: stable Diet: Glucerna 1.5 Pending Orders: N Pending Results/Labs: AM labs Pending MD notification:N Latest Vital Signs: Temperature 99.3 , Pulse 113 , B/P 124 /70 , Respiratory Rate 24 , O2 SAT 93 , Room Air, O2 Flow Rate 3.0 . Vital Sign Comment: Latest Lane Fall Score: 40 Fall Risk: Medium Risk Safety Measures: Call light Within Reach, Bed Alarm Zone 1, Side Rails Side Rails x3, Bed position Low and Locked. Fall Precautions: Yellow Socks Yellow Gown Report given to [JOHNNY Daniels].
[2020-06-21 08:05] LABS: ALANINE AMINOTRANSFERASE 36 U/L (12-78); ALBUMIN 2.2 G/DL (3.4-5.0); ALBUMIN/GLOBULIN RATIO 0.4 (1.0-2.7); ALKALINE PHOSPHATASE 164 U/L (46-116); ANION GAP 10 mmol/L (5-15); ASPARTATE AMINO TRANSFERASE 27 U/L (15-37); BILIRUBIN,TOTAL 0.4 MG/DL (0.2-1.0); BLOOD UREA NITROGEN 25 mg/dL (7-18); CALCIUM 8.6 MG/DL (8.5-10.1); CARBON DIOXIDE 24 MMOL/L (21-32); CHLORIDE 101 MMOL/L (98-107); CREATININE 1.2 MG/DL (0.55-1.30); PHOSPHORUS 1.9 MG/DL (2.5-4.9); POTASSIUM 4.5 MMOL/L (3.5-5.1); SODIUM 135 MMOL/L (136-145)
[2020-06-21] MEDS: Aspirin Baby 81mg GT SCH (08:59)
[2020-06-21] MEDS: Amantadine 100mg cap GT SCH ×2 (08:59→17:10)
[2020-06-21] MEDS: Sennosides 8.6mg tab GT SCH (08:59)
[2020-06-21] MEDS: Heparin 5000 units/ml inj SUBQ SCH ×2 (09:00→20:23)
[2020-06-21] MEDS: Levemir Flexpen SUBQ SCH ×2 (09:01→20:23)
[2020-06-21] MEDS ORDERED: Sodium Phosphate 30 MM in NS 275 ML IVPB SCH (11:00)
--- NOTE | 2020-06-21 12:09 | Pulmonology Progress Note ---
Subjective ROS Limited/Unobtainable: Yes Constitutional: Reports: no symptoms, anorexia HEENT: Repors: no symptoms Respiratory: Reports: no symptoms Cardiovascular: Reports: no symptoms Allergies: Coded Allergies: No Known Allergies (Unverified , 08/27/19) All Systems: reviewed and negative except above Objective Last 24 Hour Vital Signs Date Time Temp Pulse Resp B/P (MAP) Pulse Ox O2 Delivery O2 Flow Rate FiO2 06/21/20 12:01 100.0 06/21/20 09:00 Room Air 06/21/20 08:00 100.0 100 22 128/74 (92) 95 06/21/20 04:00 102.2 113 24 124/70 (88) 93 06/21/20 00:00 97.7 111 22 108/82 (91) 95 06/20/20 21:00 Room Air 06/20/20 20:00 100.9 112 22 98/52 (67) 96 06/20/20 16:00 97.7 80 18 120/70 (87) 99 Intake and Output 06/20/20 06/21/20 19:00 07:00 Intake Total 780 ml 880 ml Output Total 4800 ml 1400 ml Balance -4020 ml -520 ml Free Water 180 ml 220 ml Tube Feeding 600 ml 660 ml Output Urine Total 4800 ml 1400 ml # Bowel Movements 1 General Appearance: cachetic HEENT: normocephalic, atraumatic Respiratory: chest wall non-tender, normal breath sounds Cardiovascular: normal peripheral pulses, normal rate Abdomen: normal bowel sounds Genitourinary: normal external genitalia Extremities: no clubbing Skin: no lesions 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 II-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 grossly normal Lymphatic: no neck adenopathy Laboratory Tests 06/21/20 06:52: Sodium Level 135L, Potassium Level 4.5, Chloride Level 101, Carbon Dioxide Level 24, Anion Gap 10, Blood Urea Nitrogen 25H, Creatinine 1.2, Estimat Glomerular Filtration Rate > 60, Glucose Level 366H, Calcium Level 8.6, Phosphorus Level 1.9L, Magnesium Level 2.3, Total Bilirubin 0.4, Aspartate Amino Transf (AST/SGOT) 27, Alanine Aminotransferase (ALT/SGPT) 36, Alkaline Phosphatase 164H, Total Protein 8.1, Albumin 2.2L, Globulin 5.9, Albumin/ Globulin Ratio 0.4L Current Medications Medications (Trade) Dose Ordered Sig/Debi Route PRN Reason Start Time Stop Time Status Last Admin Dose Admin Acetaminophen (Tylenol) 650 mg Q6H PRN GT Mild Pain (Pain Scale 1-3) 06/06/20 16:15 07/02/20 16:14 06/21/20 11:28 Amantadine HCl (Symmetrel) 100 mg TWICE A DAY GT 06/06/20 18:00 07/02/20 08:59 06/21/20 08:59 Aspirin (ASA) 81 mg DAILY GT 06/07/20 09:00 07/17/20 08:59 06/21/20 08:59 Dextrose 1,000 ml @ 100 mls/hr Q10H IV 06/17/20 09:00 07/17/20 08:59 06/21/20 03:04 Dextrose (Dextrose 50%) 25 ml Q30M PRN IV Hypoglycemia 06/11/20 17:45 09/09/20 17:44 Dextrose (Dextrose 50%) 50 ml Q30M PRN IV Hypoglycemia 06/11/20 17:45 09/09/20 17:44 Famotidine (Pepcid) 20 mg BID GT 06/06/20 18:00 09/01/20 17:59 06/21/20 08:59 Heparin Sodium (Porcine) (Heparin 5000 units/ml) 5,000 units EVERY 12 HOURS SUBQ 06/06/20 21:00 07/17/20 08:59 06/21/20 09:00 Insulin Aspart (NovoLOG) Q6HR SUBQ 06/11/20 18:00 09/09/20 17:59 06/21/20 05:47 Insulin Detemir (Levemir) 28 units EVERY 12 HOURS SUBQ 06/21/20 09:00 09/09/20 20:59 06/21/20 09:01 Midodrine (Pro-Amatine) 2.5 mg TIDPRN PRN ORAL blood pressure below 100 sbp 06/13/20 10:15 09/11/20 10:14 Pravastatin Sodium (Pravachol) 20 mg BEDTIME GT 06/06/20 21:00 07/02/20 20:59 06/20/20 20:16 Sennosides (Senokot) 8.6 mg DAILY GT 06/07/20 09:00 9/19/20 08:59 06/21/20 08:59 Sodium Phosphate 30 mm/Sodium Chloride 285 ml @ 47.5 mls/hr ONCE IVPB 06/21/20 11:00 06/21/20 17:00 06/21/20 10:55 Assessment/Plan Problems: (1) Sepsis (2) Multiple drug resistant organism (MDRO) culture positive (3) Hypernatremia (4) History of CVA (cerebrovascular accident) (5) History of hypertension (6) Parkinson disease (7) Severe protein-calorie malnutrition (8) Feeding by G-tube (9) Diabetes mellitus Assessment/Plan electrolytes fluctuating Improving ronquillo culture, Urine has proteus,,MDR COVID Negative iv fluids renal studies renal function improving urine electrolytes. sliding scale Latanya Mckeon MD Jun 21, 2020 12:09
--- NOTE | 2020-06-21 12:32 | NUR ---
RD ASSESSMENT & RECOMMENDATIONS SEE CARE ACTIVITY FOR COMPLETE ASSESSMENT DAILY ESTIMATED NEEDS: Needs based on Sepsis, DM/ 54kg 30-40 kcals/kg 5373-3693 total kcals 1.25-2 g protein/kg 68-108 g total protein 25-35ml/kcal mL/kg 8504-8285 total fluid mLs NUTRITION DIAGNOSIS: * Swallowing difficulty R/T dysphagia, as evidenced by Pt is GT dep. CURRENT TF:Glucerna 1.5 @ 60ml/hr x20 hrs ENTERAL NUTRITION RECOMMENDATIONS: Glucerna 1.5 @ 60ml/hr x 20 hrs to provide 1200ml, 1800kcal, 99g prot, 911ml free water, 160g carbs * Maintain at current rate-> HOLD FOR 4 HRS / DAY. * HOB over 30 degrees, increased water flushes * TF at goal meets 100% est needs. ADDITIONAL RECOMMENDATIONS: * Calibrated bedscale wt for accurate CBW * Monitor lytes daily w/ TF, replete as needed * Monitor BGs, need for adjust insulin: Levemir increased -> Rec increase H2O flushes instead of added D5 for BG control -> Water flushes w/ TF-> rec 150ml q4 hrs w/out IVF * Wound healing: add DOMENICA BID * Watch K w/ change of TF -> now wnl
--- NOTE | 2020-06-21 12:43 | Surgery Progress Note ---
Surgery Progress Note Subjective Symptoms: improved, tolerating diet, passing flatus, BM Objective Last 24 Hour Vital Signs Date Time Temp Pulse Resp B/P (MAP) Pulse Ox O2 Delivery O2 Flow Rate FiO2 06/21/20 12:01 100.0 06/21/20 12:00 100.0 112 18 136/72 (93) 96 06/21/20 09:00 Room Air 06/21/20 08:00 100.0 100 22 128/74 (92) 95 06/21/20 04:00 102.2 113 24 124/70 (88) 93 06/21/20 00:00 97.7 111 22 108/82 (91) 95 06/20/20 21:00 Room Air 06/20/20 20:00 100.9 112 22 98/52 (67) 96 06/20/20 16:00 97.7 80 18 120/70 (87) 99 I&O Intake and Output 06/20/20 06/21/20 19:00 07:00 Intake Total 780 ml 880 ml Output Total 4800 ml 1400 ml Balance -4020 ml -520 ml Free Water 180 ml 220 ml Tube Feeding 600 ml 660 ml Output Urine Total 4800 ml 1400 ml # Bowel Movements 1 Dressing: saturated Wound: clean Cardiovascular: RSR Respiratory: clear Abdomen: soft, non-tender, present bowel sounds Extremities: no edema, no tenderness, no cyanosis Laboratory Tests Test 06/21/20 06:52 Sodium Level 135 MMOL/L (136-145) L Potassium Level 4.5 MMOL/L (3.5-5.1) Chloride Level 101 MMOL/L (98-107) Carbon Dioxide Level 24 MMOL/L (21-32) Anion Gap 10 mmol/L (5-15) Blood Urea Nitrogen 25 mg/dL (7-18) H Creatinine 1.2 MG/DL (0.55-1.30) Estimat Glomerular Filtration Rate > 60 mL/min (>60) Glucose Level 366 MG/DL (74-106) H Calcium Level 8.6 MG/DL (8.5-10.1) Phosphorus Level 1.9 MG/DL (2.5-4.9) L Magnesium Level 2.3 MG/DL (1.8-2.4) Total Bilirubin 0.4 MG/DL (0.2-1.0) Aspartate Amino Transf (AST/SGOT) 27 U/L (15-37) Alanine Aminotransferase (ALT/SGPT) 36 U/L (12-78) Alkaline Phosphatase 164 U/L (46-116) H Total Protein 8.1 G/DL (6.4-8.2) Albumin 2.2 G/DL (3.4-5.0) L Globulin 5.9 g/dL Albumin/Globulin Ratio 0.4 (1.0-2.7) L Plan Problems: (1) Hypernatremia (2) Dehydration (3) Hip fracture, left (4) Diabetes mellitus (5) History of hypertension (6) Severe protein-calorie malnutrition Assessment & Plan: DAILY ESTIMATED NEEDS: Needs based on Sepsis, DM/ 54kg 30-40 kcals/kg 2948-5281 total kcals 1.25-2 g protein/kg 68-108 g total protein 25-35ml/kcal mL/kg 2307-2283 total fluid mLs NUTRITION DIAGNOSIS: * Swallowing difficulty R/T dysphagia, as evidenced by Pt is GT dep. (CURRENT TF: Glucerna 1.5 @ 30ml/hr x 24 hrs) ENTERAL NUTRITION RECOMMENDATIONS: Glucerna 1.5 @ 60ml/hr x 20 hrs to provide 1200ml, 1800kcal, 99g prot, 911ml free water, 160g carbs * Rec to INCREASE TF GOAL to 60ml/hr for 20 hrs * HOB over 30 degrees, increased water flushes * TF at goal meets 100% est needs. -------- ADDITIONAL RECOMMENDATIONS: * Calibrated bedscale wt for accurate CBW * Monitor lytes daily w/ TF, replete as needed * Pt may require increase in insulin regimen for improved BG W/ continuous TF infusion * Wound healing: DOMENICA BID, F/up w/ WC eval . (7) Acute encephalopathy (8) Pressure Ulcer Of Sacral Region, Unstageable Assessment & Plan: Pt presented on admission with purple and indurated area at Sacrococcygeal at previously compromised site(L)7cm x (W)3cm.Surrounding Hyperpigmentation at Sacrum. Non-Blanching erythema without fluctuance R heel. Non-Blanching erythema with delineated margins L heel (L)4.5cm x (W)5.5cm. L Heel is boggy . Tx.Plan: Apply Moisture Barrier Paste to Sacrum. Cover with Optifoam pamelags. Change every 3 days and prn. Apply Cavilon Skin Barrier to R and L trochanter. Cover each site with Optifoam drsgs. Change every 7 days and prn. Apply Cavilon Skin Barrier to each heel and malleoli. Cover each site with Optifoam drsgs. Change every 7 days and prn. Reposition at least every 2hours or as tolerated. Off-load heels with pillow. improving cont current care tube site okay (9) Feeding by G-tube (10) Abdominal distention (11) Multiple drug resistant organism (MDRO) culture positive (12) Sepsis (13) History of CVA (cerebrovascular accident) (14) Parkinson disease James Breen Jun 21, 2020 12:43
--- NOTE | 2020-06-21 13:16 | Nephrology Progress Note ---
Assessment/Plan Problem List: (1) Hypernatremia (2) Sepsis (3) History of CVA (cerebrovascular accident) (4) Parkinson disease (5) Feeding by G-tube (6) Dehydration Assessment KELLY, resolving, serum creatinine of 1.9 now down to 1.2 Hypernatremia, dehydration, free water deficit Sepsis Diabetes mellitus [id number] GT feeding Severe protein calorie malnutrition History of CVA History of hypertension Parkinson's disease Plan June 21: Patient is febrile today. Abnormal electrolytes addressed. Stable from renal standpoint of view. June 20: No chemistry panel done today. Stable from renal standpoint. Will order chemistry panel tomorrow June 19: Labs reviewed. Phosphorus supplement given. Stable from renal standpoint of view. June 18: Lab reviewed. Serum sodium lower. Creatinine 1.1. Continue current management. June 17: Lab reviewed. Sodium 160. Creatinine 1.3. Calcium lower at 9. Will continue D5W. June 16: Labs reviewed. Renal parameters stable. Serum calcium lowering. Serum sodium lowering. Serum creatinine 1.3. Another 1 L of D5W ordered. June 15: Lab reviewed. Serum sodium high. 1 L D5W given. Serum creatinine 1.4. Pamidronate given yesterday. Continue to monitor serum calcium. June 14: Lab reviewed. Serum calcium high corrected for low serum albumin. 60 mg pamidronate ID given. Continue to monitor renal parameters calcium and phosphorus. June 13: Lab reviewed. Medication list reviewed. Renal parameters stable. Will watch serum calcium and serum sodium. Chemistry panel tomorrow. June 12: Labs reviewed. Stable from renal standpoint of view. June 11: Labs reviewed. Stable renal parameters. June 10: Lab reviewed. Serum potassium normalized. Will give 1 L of D5W for high serum sodium. Continue per consultants. June 09: Labs reviewed. Discussed with RN. Serum potassium elevated. Suspect hemolysis. Will repeat serum potassium. DC all potassium supplements. June 08: Serum sodium higher. Will give 1 L of D5W. Renal parameters stable. Continue to monitor electrolytes. Continue per consultants. June 07: 1 bolus of D5W. Renal parameters stable. Serum sodium slightly high. Stable from renal standpoint of view. June 06: We will again discontinue the IV ordered. Stable from renal standpoint of view. Will start midodrine for low blood pressure. June 05: DC IV fluid. Potassium supplement given. Stable from renal standpoint to view. June 04: Potassium and magnesium supplement IV given, stable from renal standpoint of view. IV fluid D5W Monitor electrolytes Monitor renal parameters Hold blood pressure medication since blood pressure low Per orders, per consultants Subjective ROS Limited/Unobtainable: No Interval Events/Complaints Patient is febrile today Constitutional: Reports: malaise, weakness Objective Objective Last 24 Hour Vital Signs Date Time Temp Pulse Resp B/P (MAP) Pulse Ox O2 Delivery O2 Flow Rate FiO2 06/21/20 12:01 100.0 06/21/20 12:00 100.0 112 18 136/72 (93) 96 06/21/20 09:00 Room Air 06/21/20 08:00 100.0 100 22 128/74 (92) 95 06/21/20 04:00 102.2 113 24 124/70 (88) 93 06/21/20 00:00 97.7 111 22 108/82 (91) 95 06/20/20 21:00 Room Air 06/20/20 20:00 100.9 112 22 98/52 (67) 96 06/20/20 16:00 97.7 80 18 120/70 (87) 99 Intake and Output 06/20/20 06/21/20 19:00 07:00 Intake Total 780 ml 880 ml Output Total 4800 ml 1400 ml Balance -4020 ml -520 ml Free Water 180 ml 220 ml Tube Feeding 600 ml 660 ml Output Urine Total 4800 ml 1400 ml # Bowel Movements 1 Laboratory Tests 06/21/20 06:52: Sodium Level 135L, Potassium Level 4.5, Chloride Level 101, Carbon Dioxide Level 24, Anion Gap 10, Blood Urea Nitrogen 25H, Creatinine 1.2, Estimat Glomerular Filtration Rate > 60, Glucose Level 366H, Calcium Level 8.6, Phosphorus Level 1.9L, Magnesium Level 2.3, Total Bilirubin 0.4, Aspartate Amino Transf (AST/SGOT) 27, Alanine Aminotransferase (ALT/SGPT) 36, Alkaline Phosphatase 164H, Total Protein 8.1, Albumin 2.2L, Globulin 5.9, Albumin/ Globulin Ratio 0.4L Height (Feet): 5 Height (Inches): 5.00 Weight (Pounds): 123 General Appearance: no apparent distress Cardiovascular: tachycardia Objective No change Eddie Nelson MD Jun 21, 2020 13:16
--- NOTE | 2020-06-21 15:32 | Infectious Diseases Prog Note ---
Assessment/Plan 79yo M with: COVID19 neg (06/01 rapid COVID PCR neg) Fever, recurrent- r/o STEFANI, COVID10 Leukocytosis, SP KELLY, improving UTI, sp rx 06/01 UA w/ pyuria, UCx + P Mirabilis ESBL 06/01 BCx Neg 06/01 CXR: No acute process COVID rapid test neg H/o ESBL Proteus in UCx in Oct 2019 Renal US w/ BL cysts PMH: DM2 Parkinson's dementia Bedridden G-tube Plan: Empiric IV Vancomycin and Meropenem given recurrent fever 06/10 SP audra #8 06/02 SP erta #1 06/01 SP cefepime, vanco, flagyl x1 in ED Monitor CBC/BMP U/a w/ rflex, Bcx x2, CXR CBC, CMP am COVID19 isolation and testing D/w RN Thank you for this consult. [facility] will continue to follow. Subjective Allergies: Coded Allergies: No Known Allergies (Unverified , 08/27/19) now febrile up to 102 Objective Last 24 Hour Vital Signs Date Time Temp Pulse Resp B/P (MAP) Pulse Ox O2 Delivery O2 Flow Rate FiO2 06/21/20 12:01 100.0 06/21/20 12:00 100.0 112 18 136/72 (93) 96 06/21/20 09:00 Room Air 06/21/20 08:00 100.0 100 22 128/74 (92) 95 06/21/20 04:00 102.2 113 24 124/70 (88) 93 06/21/20 00:00 97.7 111 22 108/82 (91) 95 06/20/20 21:00 Room Air 06/20/20 20:00 100.9 112 22 98/52 (67) 96 06/20/20 16:00 97.7 80 18 120/70 (87) 99 Height (Feet): 5 Height (Inches): 5.00 Weight (Pounds): 123 GENERAL: no apparent distress. CHEST: Lungs are clear to auscultation bilaterally without wheezes or rales. CARDIOVASCULAR: regular rhythm. S1, S2 are normal without murmurs, rubs, or gallops. ABDOMEN: Soft, nontender, and nondistended. Positive bowel sounds. No evidence of hepatosplenomegaly. EXTREMITIES: Negative for clubbing, cyanosis, or edema. Laboratory Tests Test 06/21/20 06:52 Sodium Level 135 MMOL/L (136-145) L Potassium Level 4.5 MMOL/L (3.5-5.1) Chloride Level 101 MMOL/L (98-107) Carbon Dioxide Level 24 MMOL/L (21-32) Anion Gap 10 mmol/L (5-15) Blood Urea Nitrogen 25 mg/dL (7-18) H Creatinine 1.2 MG/DL (0.55-1.30) Estimat Glomerular Filtration Rate > 60 mL/min (>60) Glucose Level 366 MG/DL (74-106) H Calcium Level 8.6 MG/DL (8.5-10.1) Phosphorus Level 1.9 MG/DL (2.5-4.9) L Magnesium Level 2.3 MG/DL (1.8-2.4) Total Bilirubin 0.4 MG/DL (0.2-1.0) Aspartate Amino Transf (AST/SGOT) 27 U/L (15-37) Alanine Aminotransferase (ALT/SGPT) 36 U/L (12-78) Alkaline Phosphatase 164 U/L (46-116) H Total Protein 8.1 G/DL (6.4-8.2) Albumin 2.2 G/DL (3.4-5.0) L Globulin 5.9 g/dL Albumin/Globulin Ratio 0.4 (1.0-2.7) L Current Medications Medications (Trade) Dose Ordered Sig/Debi Route PRN Reason Start Time Stop Time Status Last Admin Dose Admin Acetaminophen (Tylenol) 650 mg Q6H PRN GT Mild Pain (Pain Scale 1-3) 06/06/20 16:15 07/02/20 16:14 06/21/20 11:28 Amantadine HCl (Symmetrel) 100 mg TWICE A DAY GT 06/06/20 18:00 07/02/20 08:59 06/21/20 08:59 Aspirin (ASA) 81 mg DAILY GT 06/07/20 09:00 07/17/20 08:59 06/21/20 08:59 Dextrose 1,000 ml @ 100 mls/hr Q10H IV 06/17/20 09:00 07/17/20 08:59 06/21/20 12:11 Dextrose (Dextrose 50%) 25 ml Q30M PRN IV Hypoglycemia 06/11/20 17:45 09/09/20 17:44 Dextrose (Dextrose 50%) 50 ml Q30M PRN IV Hypoglycemia 06/11/20 17:45 09/09/20 17:44 Famotidine (Pepcid) 20 mg BID GT 06/06/20 18:00 09/01/20 17:59 06/21/20 08:59 Heparin Sodium (Porcine) (Heparin 5000 units/ml) 5,000 units EVERY 12 HOURS SUBQ 06/06/20 21:00 07/17/20 08:59 06/21/20 09:00 Insulin Aspart (NovoLOG) Q6HR SUBQ 06/11/20 18:00 09/09/20 17:59 06/21/20 12:09 Insulin Detemir (Levemir) 28 units EVERY 12 HOURS SUBQ 06/21/20 09:00 09/09/20 20:59 06/21/20 09:01 Midodrine (Pro-Amatine) 2.5 mg TIDPRN PRN ORAL blood pressure below 100 sbp 06/13/20 10:15 09/11/20 10:14 Pravastatin Sodium (Pravachol) 20 mg BEDTIME GT 06/06/20 21:00 07/02/20 20:59 06/20/20 20:16 Sennosides (Senokot) 8.6 mg DAILY GT 06/07/20 09:00 07/02/20 08:59 06/21/20 08:59 Sodium Phosphate 30 mm/Sodium Chloride 285 ml @ 47.5 mls/hr ONCE IVPB 06/21/20 11:00 06/21/20 17:00 06/21/20 10:55 Blaire Greenwood M.D. Jun 21, 2020 15:32
[2020-06-21 16:43] LABS: APPEARANCE,URINE CLOUDY; BILIRUBIN, URINE NEGATIVE (NEGATIVE); COLOR,URINE PALE YELLOW; GLUCOSE, URINE (UA) 2+ (NEGATIVE); KETONES,URINE NEGATIVE (NEGATIVE); LEUKOCYTE ESTERASE ,URINE 3+ (NEGATIVE); NITRITE,URINE NEGATIVE (NEGATIVE); PH,URINE 8 (4.5-8.0); PROTEIN,URINE 2+ (NEGATIVE); UROBILINOGEN,URINE NORMAL MG/DL (0.0-1.0)
[2020-06-21] MEDS: Meropenem 1 GM in NS 55 ML IVPB SCH (17:10)
--- NOTE | 2020-06-21 17:38 | NUR ---
CASE MANAGEMENT:REVIEW SI;SEPSIS. MDRO CULTURE. 102.2 113 24 136/72 93% ON RA NA 135 BUN 25 BG 366 PHOS 1.9 ALP 164 A;B 2.2 IS;VANCOMYCIN IV Q12 MEROPENEM IV Q12 INSULIN LEVEMIR SUBQ Q12 IVF D5 @ 100 ML/HR ASA GT QD HEPARIN SUBQ Q12 PEPCID GT BID MED SURG STATUS DCP;[facility] [place]
[2020-06-21] MEDS: Vancomycin 500 MG in NS 110 ML IVPB SCH (17:55)
--- NOTE | 2020-06-21 19:04 | Internal Med Progress Note ---
Subjective Date of Service: Jun 21, 2020 Physician Name Cobb,Tello Attending Physician Cirilo Rome MD Current Medications Medications (Trade) Dose Ordered Sig/Debi Route PRN Reason Start Time Stop Time Status Last Admin Dose Admin Acetaminophen (Tylenol) 650 mg Q6H PRN GT Mild Pain (Pain Scale 1-3) 06/06/20 16:15 07/02/20 16:14 06/21/20 11:28 Amantadine HCl (Symmetrel) 100 mg TWICE A DAY GT 06/06/20 18:00 07/02/20 08:59 06/21/20 17:10 Aspirin (ASA) 81 mg DAILY GT 06/07/20 09:00 07/17/20 08:59 06/21/20 08:59 Dextrose 1,000 ml @ 100 mls/hr Q10H IV 06/17/20 09:00 07/17/20 08:59 06/21/20 12:11 Dextrose (Dextrose 50%) 25 ml Q30M PRN IV Hypoglycemia 06/11/20 17:45 09/09/20 17:44 Dextrose (Dextrose 50%) 50 ml Q30M PRN IV Hypoglycemia 06/11/20 17:45 09/09/20 17:44 Famotidine (Pepcid) 20 mg BID GT 06/06/20 18:00 09/01/20 17:59 06/21/20 17:10 Heparin Sodium (Porcine) (Heparin 5000 units/ml) 5,000 units EVERY 12 HOURS SUBQ 06/06/20 21:00 07/17/20 08:59 06/21/20 09:00 Insulin Aspart (NovoLOG) Q6HR SUBQ 06/11/20 18:00 09/09/20 17:59 06/21/20 17:56 Insulin Detemir (Levemir) 28 units EVERY 12 HOURS SUBQ 06/21/20 09:00 09/09/20 20:59 06/21/20 09:01 Meropenem 1 gm/ Sodium Chloride 55 ml @ 110 mls/hr Q12H IVPB 06/21/20 17:00 06/26/20 16:59 06/21/20 17:10 Midodrine (Pro-Amatine) 2.5 mg TIDPRN PRN ORAL blood pressure below 100 sbp 06/13/20 10:15 09/11/20 10:14 Pravastatin Sodium (Pravachol) 20 mg BEDTIME GT 06/06/20 21:00 07/02/20 20:59 06/20/20 20:16 Sennosides (Senokot) 8.6 mg DAILY GT 06/07/20 09:00 07/02/20 08:59 06/21/20 08:59 Vancomycin HCl (Vanco pharmacy to dose) 1 ea DAILY PRN MISC Per rx protocol 06/21/20 15:30 07/21/20 15:29 Vancomycin HCl 500 mg/Sodium Chloride 110 ml @ 110 mls/hr Q12HR@0600,1800 IVPB 06/21/20 18:00 06/26/20 17:59 06/21/20 17:55 Allergies: Coded Allergies: No Known Allergies (Unverified , 08/27/19) ROS Limited/Unobtainable: Yes Subjective 79 YO M admitted with hyperglycemia and hypernatremia. Now UTI. Cover for Int Dusty-Dr Rome Objective Last Vital Signs Date Time Temp Pulse Resp B/P (MAP) Pulse Ox O2 Delivery O2 Flow Rate FiO2 06/21/20 16:00 100.8 107 18 133/77 (95) 96 06/21/20 09:00 Room Air Laboratory Tests Test 06/21/20 06:52 06/21/20 16:10 Sodium Level 135 MMOL/L (136-145) L Potassium Level 4.5 MMOL/L (3.5-5.1) Chloride Level 101 MMOL/L (98-107) Carbon Dioxide Level 24 MMOL/L (21-32) Anion Gap 10 mmol/L (5-15) Blood Urea Nitrogen 25 mg/dL (7-18) H Creatinine 1.2 MG/DL (0.55-1.30) Estimat Glomerular Filtration Rate > 60 mL/min (>60) Glucose Level 366 MG/DL (74-106) H Calcium Level 8.6 MG/DL (8.5-10.1) Phosphorus Level 1.9 MG/DL (2.5-4.9) L Magnesium Level 2.3 MG/DL (1.8-2.4) Total Bilirubin 0.4 MG/DL (0.2-1.0) Aspartate Amino Transf (AST/SGOT) 27 U/L (15-37) Alanine Aminotransferase (ALT/SGPT) 36 U/L (12-78) Alkaline Phosphatase 164 U/L (46-116) H Total Protein 8.1 G/DL (6.4-8.2) Albumin 2.2 G/DL (3.4-5.0) L Globulin 5.9 g/dL Albumin/Globulin Ratio 0.4 (1.0-2.7) L Urine Color Pale yellow Urine Appearance Cloudy Urine pH 8 (4.5-8.0) Urine Specific [place] 1.010 (1.005-1.035) Urine Protein 2+ (NEGATIVE) H Urine Glucose (UA) 2+ (NEGATIVE) H Urine Ketones Negative (NEGATIVE) Urine Blood 4+ (NEGATIVE) H Urine Nitrite Negative (NEGATIVE) Urine Bilirubin Negative (NEGATIVE) Urine Urobilinogen Normal MG/DL (0.0-1.0) Urine Leukocyte Esterase 3+ (NEGATIVE) H Urine RBC 2-4 /HPF (0 - 0) H Urine WBC 5-10 /HPF (0 - 0) H Urine Squamous Epithelial Cells None /LPF (NONE/OCC) Urine Triple Phosphate Crystals Many /LPF (NONE) H Urine Bacteria Many /HPF (NONE) H Microbiology Date/Time Source Procedure Growth Status 06/21/20 16:10 Nasopharynx SARS-CoV-2 RdRp Gene Assay - Final Complete Intake and Output 06/20/20 06/21/20 19:00 07:00 Intake Total 780 ml 940 ml Output Total 4800 ml 1400 ml Balance -4020 ml -460 ml Free Water 180 ml 220 ml Tube Feeding 600 ml 720 ml Output Urine Total 4800 ml 1400 ml # Bowel Movements 1 Objective PHYSICAL EXAMINATION: GENERAL: The patient is a well-developed, well-nourished, thin-appearing, male, in no apparent distress. HEENT: Eyes, pupils equal and responsive to light and accommodation. Extraocular movements are intact. NECK: Supple without lymphadenopathy. CHEST: Lungs are clear to auscultation bilaterally without wheezes or rales. CARDIOVASCULAR: Slightly tachycardic, regular rhythm. S1, S2 are normal without murmurs, rubs, or gallops. ABDOMEN: Soft, nontender, and nondistended. Positive bowel sounds. No evidence of hepatosplenomegaly. Currently, no rebound or guarding noted. EXTREMITIES: Negative for clubbing, cyanosis, or edema. RECTAL: Not performed. GENITAL: Not performed. NEUROLOGIC: Cranial nerves II through XII are grossly intact without focal deficits. Assessment/Plan Assessment/Plan ASSESSMENT: This is a 79-year-old male with: 1. Hyperglycemia. 2. Hypernatremia. 3. Urinary tract infection=MDR proteus. 4. Diabetes type 2. 5. Hypertension. 6. Hypercholesterolemia. 7. Dysphagia. 8. Parkinson disease. 9. Ulcerative proctitis. 10. Protein-calorie malnutrition. 11. History of sacral decubitus ulcer stage IV. 12. Benign prostatic hypertrophy. 13. Gastroesophageal reflux disease. 14. Metabolic encephalopathy. 15. History of left hip fracture. TREATMENT: 1. Hyperglycemia/diabetes. The patient has been placed on a protocol using NovoLog sliding scale. The patient's blood sugars have been running in 300s. Hyperglycemia may be secondary to urinary tract infection. 2. Urinary tract infection. Urine culture =MDR proteus. ABX= S/P meropenem results.ID=Dr Oliva 3. Hypertension. Continue amlodipine as above. 4. Hypercholesterolemia. Continue atorvastatin as above. 5. Dysphagia. The patient is status post PEG placement. 6. Parkinson disease. Continue amantadine as above. 7. Ulcerative proctitis. 8. Protein-calorie malnutrition. 9. Sacral decubitus ulcer stage IV. 10. Benign prostatic hypertrophy. Continue tamsulosin as above. 11. Gastroesophageal reflux disease. 12. Metabolic encephalopathy. 13. History of left hip fracture. Tello Cobb MD Jun 21, 2020 19:04
--- NOTE | 2020-06-21 19:24 | NUR ---
NURSE NOTES: Pt. received from JOHNNY Daniels. Pt. AAOx1, to name, breathing even and unlabored on room air, no indications of pain and no indications of respiratory distress. Gtube with glucerna 1.5 at 60cc running. Adams intact and draining yellow urine well. IV noted left forearm 24g intact and patent with D5W at 100cc. Pt. tested negative for covid rapid swab, contact droplet isolation precautions dc'd by previous RN per MD orders. Bed is low and locked, side rails x2 up, bed alarm active, and call light in reach.
--- NOTE | 2020-06-21 19:31 | NUR ---
NURSE HAND-OFF: Important Events on Shift:[covid rapid text negative, DC isolation, IV atbs and fluids, turning and repositioning] Patient Status: [stable] Diet: [Glucerna 1.5 @ 60] Pending Orders: [] Pending Results/Labs:[] Pending MD notification:[] Latest Vital Signs: Temperature 100.8 , Pulse 107 , B/P 133 /77 , Respiratory Rate 18 , O2 SAT 96 , Room Air, O2 Flow Rate 3.0 . Vital Sign Comment: [] Latest Lane Fall Score: 40 Fall Risk: Medium Risk Safety Measures: Call light Within Reach, Bed Alarm Zone 1, Side Rails Side Rails x3, Bed position Low and Locked. Fall Precautions: Yellow Socks Yellow Gown Report given to [JOHNNY Mares].
--- NOTE | 2020-06-21 21:10 | NUR ---
NURSE NOTES: Pt. HR 135 RR 30, BP 143/80, O2 95% on room air T 96.6, last glucose 283. No residuals aspirated from gtube, pt. without any acute signs of distress. Charge nurse notified and Dr. Rome called to notify tachycardia increased from 110 HR during 9/8 AM, as well as tachypnea. Dr. Rome with orders to transfer to tele, stat EKG, and lopressor 25mg gtube BID. Orders implemented and will continue with plan of care.
--- NOTE | 2020-06-21 23:52 | NUR ---
NURSE HAND-OFF: Important Events on Shift:[pt. transferred to tele to JOHNNY Franco and JOHNNY Felder. Pt. AAOx1 to name, tachypnea 28 RR, tachycardia 116, fever 102.0F. Dr. Rome aware and orderd pt. to tele, stat EKG ordered, completed and placed in chart, endorsed to tele RNs, metoprolol given as ordered. Tylenol administered for fever and cooling measures implemented. Pt. without belongings, belongings list signed. Patient Status: [tachycardia, tachypnea, fever] Diet: glucerna 1.5 at 60cc, off from [id number] Pending Orders: na Pending Results/Labs:CBC CMP vanc trough Pending MD notification:na Latest Vital Signs: Temperature 102.0 , Pulse 116 , B/P 135 /69 , Respiratory Rate 28 , O2 SAT 95 , Room Air, O2 Flow Rate 3.0 . Vital Sign Comment: tachycardia, tachypnea, and fever Latest Lane Fall Score: 55 Fall Risk: High Risk Safety Measures: Call light Within Reach, Bed Alarm Zone 1, Side Rails Side Rails x3, Bed position Low and Locked. Fall Precautions: Yellow Socks Yellow Gown Report given to Brant TURNER, and JOHNNY Felder.
[2020-06-22] VITALS: BP 108/57
--- NOTE | 2020-06-22 | NUR ---
NURSE NOTES: Pt received from Ena TURNER. Pt resting comfortably in bed AxO x1, nonverbal and opens eyes to voice. Pt is breathing unlabored under room air. Pt is on cardiac monitoring ST [address] and aware per raul TURNER. Pt has Gtube running Gluverna 1.5 60 ml/hr and will be turned off from 2303-3292. Pt has IV RFA 22G running D5W 100ml/hr and site is patent, dry and intact. Pt has sacral pressure ulcer stage 2, dressing changed and is dry and intact. Pt has mckinney catheter 16 fr draining well to gravity. Bed locked in lowest position and call light within reach. Will continue to monitor. Addendum: 06/22/20 at 0735 by Bradford Armenta RN Report received from Vishnu TURNER
--- NOTE | 2020-06-22 01:45 | Cardiology Report ---
APPROVED REPORT EKG Measurement Heart [id number] <Conclusion> Sinus tachycardia Possible Left atrial enlargement Borderline ECG
[2020-06-22 04:00] VITALS: BP 122/68
[2020-06-22] MEDS: Meropenem 1 GM in NS 55 ML IVPB SCH ×2 (05:40→17:10)
[2020-06-22] MEDS: NovoLOG Insulin Flexpen SUBQ SCH ×5 (05:45→18:12)
[2020-06-22] MEDS: Vancomycin 500 MG in NS 110 ML IVPB SCH ×2 (06:00→17:14)
--- NOTE | 2020-06-22 06:56 | General Progress Note ---
Assessment/Plan Problem List: (1) Hypernatremia ICD Codes: E87.0 - Hyperosmolality and hypernatremia SNOMED: 352981465 (2) Feeding by G-tube ICD Codes: Z93.1 - Gastrostomy status SNOMED: 056535345, 426206235, 034599012 (3) Diabetes mellitus ICD Codes: E11.9 - Type 2 diabetes mellitus without complications SNOMED: 43579278 (4) History of CVA (cerebrovascular accident) ICD Codes: Z86.73 - Personal history of transient ischemic attack (TIA), and cerebral infarction without residual deficits SNOMED: 097524648 (5) Parkinson disease ICD Codes: G20 - Parkinson's disease SNOMED: 03917599 Assessment/Plan: continue Levemir 28 units bid add Novolog 8 units every 6 hours while on dextrose continue Novolog sliding scale high dose every 6 hours continue to hold Metformin due to lactic acidosis on presentation Subjective ROS Limited/Unobtainable: Yes Allergies: Coded Allergies: No Known Allergies (Unverified , 08/27/19) Subjective events noted - interval notes reviewed glucose values higher while on TF and dextrose Item Value Date Time Bedside Blood Glucose 382 mg/dl H 06/22/20 0600 Bedside Blood Glucose 391 mg/dl H 06/21/20 2352 Bedside Blood Glucose 283 mg/dl H 06/21/20 2023 Bedside Blood Glucose 223 mg/dl H 06/21/20 1800 Bedside Blood Glucose 237 mg/dl H 06/21/20 1209 Bedside Blood Glucose 322 mg/dl H 06/21/20 0901 Bedside Blood Glucose 316 mg/dl H 06/21/20 0600 Objective Last 24 Hour Vital Signs Date Time Temp Pulse Resp B/P (MAP) Pulse Ox O2 Delivery O2 Flow Rate FiO2 06/22/20 04:00 97.7 129 20 122/68 (86) 99 06/22/20 04:00 128 06/22/20 00:00 110 06/22/20 00:00 99.0 108 22 108/57 (74) 98 06/21/20 23:07 102.0 06/21/20 23:03 102.2 116 28 135/69 (91) 95 06/21/20 21:38 135 143/80 06/21/20 21:00 Room Air 06/21/20 21:00 131 28 95 06/21/20 20:00 96.6 135 30 143/80 (101) 95 06/21/20 16:00 100.8 107 18 133/77 (95) 96 06/21/20 12:00 100.0 112 18 136/72 (93) 96 06/21/20 09:00 Room Air 06/21/20 08:00 100.0 100 22 128/74 (92) 95 Intake and Output 06/21/20 06/22/20 19:00 07:00 Intake Total 860 ml 460 ml Output Total 1400 ml 300 ml Balance -540 ml 160 ml Free Water 200 ml IV Total 400 ml Tube Feeding 660 ml 60 ml Output Urine Total 1400 ml 300 ml Laboratory Tests 06/21/20 16:10: Urine Color Pale yellow, Urine Appearance Cloudy, Urine pH 8, Urine Specific [place] 1.010, Urine Protein 2+H, Urine Glucose (UA) 2+H, Urine Ketones Negative , Urine Blood 4+H, Urine Nitrite Negative, Urine Bilirubin Negative, Urine Urobilinogen Normal, Urine Leukocyte Esterase 3+H, Urine RBC 2-4H, Urine WBC 5- 10H, Urine Squamous Epithelial Cells None, Urine Triple Phosphate Crystals ManyH , Urine Bacteria ManyH Height (Feet): 5 Height (Inches): 5.00 Weight (Pounds): 123 General Appearance: no apparent distress Neck: normal alignment Cardiovascular: normal rate Respiratory/Chest: decreased breath sounds Abdomen: normal bowel sounds, other - PEG Objective Current Medications Medications (Trade) Dose Ordered Sig/Debi Route PRN Reason Start Time Stop Time Status Last Admin Dose Admin Acetaminophen (Tylenol) 650 mg Q6H PRN GT Mild Pain (Pain Scale 1-3) 06/06/20 16:15 07/02/20 16:14 06/21/20 22:37 Amantadine HCl (Symmetrel) 100 mg TWICE A DAY GT 06/06/20 18:00 07/02/20 08:59 06/21/20 17:10 Aspirin (ASA) 81 mg DAILY GT 06/07/20 09:00 07/17/20 08:59 06/21/20 08:59 Dextrose 1,000 ml @ 100 mls/hr Q10H IV 06/17/20 09:00 07/17/20 08:59 06/21/20 22:37 Dextrose (Dextrose 50%) 25 ml Q30M PRN IV Hypoglycemia 06/11/20 17:45 09/09/20 17:44 Dextrose (Dextrose 50%) 50 ml Q30M PRN IV Hypoglycemia 06/11/20 17:45 09/09/20 17:44 Famotidine (Pepcid) 20 mg BID GT 06/06/20 18:00 09/01/20 17:59 06/21/20 17:10 Heparin Sodium (Porcine) (Heparin 5000 units/ml) 5,000 units EVERY 12 HOURS SUBQ 06/06/20 21:00 07/17/20 08:59 06/21/20 20:23 Insulin Aspart (NovoLOG) Q6HR SUBQ 06/11/20 18:00 09/09/20 17:59 06/22/20 05:45 Insulin Detemir (Levemir) 28 units EVERY 12 HOURS SUBQ 06/21/20 09:00 09/09/20 20:59 06/21/20 20:23 Meropenem 1 gm/ Sodium Chloride 55 ml @ 110 mls/hr Q12H IVPB 06/21/20 17:00 06/26/20 16:59 06/22/20 05:40 Metoprolol Tartrate (Lopressor) 25 mg Q12HR GT 06/22/20 09:00 09/20/20 08:59 Midodrine (Pro-Amatine) 2.5 mg TIDPRN PRN ORAL blood pressure below 100 sbp 06/13/20 10:15 09/11/20 10:14 Pravastatin Sodium (Pravachol) 20 mg BEDTIME GT 06/06/20 21:00 07/02/20 20:59 06/21/20 20:22 Sennosides (Senokot) 8.6 mg DAILY GT 06/07/20 09:00 07/02/20 08:59 06/21/20 08:59 Vancomycin HCl (Vanco pharmacy to dose) 1 ea DAILY PRN MISC Per rx protocol 06/21/20 15:30 07/21/20 15:29 Vancomycin HCl 500 mg/Sodium Chloride 110 ml @ 110 mls/hr Q12HR@0600,1800 IVPB 06/21/20 18:00 06/26/20 17:59 06/22/20 06:00 Gregory Pastrana MD Jun 22, 2020 06:56
--- NOTE | 2020-06-22 07:35 | NUR ---
NURSE HAND-OFF REPORT: Important Events on Shift:Pt transferred to [facility] from [facility]. Pt off tube feeding from [id number]. Pictures of wounds taken and documented Patient Status: Stable Diet: Glucerna 1.5 60 ml/hr Pending Results/Labs: AM Labs Latest Vital Signs: Temperature 97.7 , Pulse 129 , B/P 122 /68 , Respiratory Rate 20 , O2 SAT 99 , Room Air, O2 Flow Rate 3.0 . Vital Sign Comment: Tachycardia consistent; MD made aware EKG Rhythm: Sinus Tachycardia Rhythm change?: N Notified?: Y -Dr Wild PERKINS Response: Message left await call Latest Lane Fall Score: 55 Fall Risk: High Risk Safety Measures: Call light Within Reach, Bed Alarm Zone 1, Side Rails Side Rails x3, Bed position Low and Locked. Fall Precautions: Yellow Socks Yellow Gown Report given to JOHNNY Elizondo.
[2020-06-22 07:52] LABS: HEMATOCRIT 35.3 % (42.0-52.0); HEMOGLOBIN 11.1 G/DL (14.2-18.0); MEAN CORPUSCULAR VOLUME 95 FL (80-99); PLATELET COUNT 159 K/UL (150-450); RED BLOOD COUNT 3.71 M/UL (4.70-6.10); RED CELL DISTRIBUTION WIDTH 15.3 % (11.6-14.8); WHITE BLOOD COUNT 13.5 K/UL (4.8-10.8)
[2020-06-22 07:59] LABS: ALANINE AMINOTRANSFERASE 50 U/L (12-78); ALBUMIN 2.1 G/DL (3.4-5.0); ALBUMIN/GLOBULIN RATIO 0.3 (1.0-2.7); ALKALINE PHOSPHATASE 192 U/L (46-116); ANION GAP 12 mmol/L (5-15); ASPARTATE AMINO TRANSFERASE 39 U/L (15-37); BILIRUBIN,TOTAL 0.4 MG/DL (0.2-1.0); BLOOD UREA NITROGEN 25 mg/dL (7-18); CALCIUM 8.3 MG/DL (8.5-10.1); CARBON DIOXIDE 23 MMOL/L (21-32); CHLORIDE 102 MMOL/L (98-107); CREATININE 1.3 MG/DL (0.55-1.30); POTASSIUM 4.9 MMOL/L (3.5-5.1); SODIUM 137 MMOL/L (136-145)
[2020-06-22 08:00] VITALS: BP 126/73
--- NOTE | 2020-06-22 08:00 | NUR ---
NURSE NOTES: Received report from JOHNNY Alfonso. Patient awake, alert, oriented x0. Opens eyes spontaneously, tracks and follows, mumbles. Breathing regular and unlabored on room air. No acute distress. No signs of pain. Radial pulses palpable, equal. Adams draining to gravity. IV intact, patent, no redness or edema. Optifoam to bilateral trochanter, bilateral heels, and sacrum. Fall precautions in place.
[2020-06-22] MEDS: Aspirin Baby 81mg GT SCH (08:48)
[2020-06-22] MEDS: Amantadine 100mg cap GT SCH ×2 (08:49→17:11)
[2020-06-22] MEDS: Sennosides 8.6mg tab GT SCH (08:49)
[2020-06-22] MEDS: Acetaminophen 650mg/20.3ml GT PRN ×2 (08:51→21:34)
[2020-06-22] MEDS: Heparin 5000 units/ml inj SUBQ SCH ×2 (08:53→21:00)
[2020-06-22] MEDS: Levemir Flexpen SUBQ SCH ×2 (09:00→21:50)
--- NOTE | 2020-06-22 10:33 | Internal Med Progress Note ---
Subjective Date of Service: Jun 22, 2020 Physician Name JordynTello Attending Physician Cirilo Rome MD Current Medications Medications (Trade) Dose Ordered Sig/Debi Route PRN Reason Start Time Stop Time Status Last Admin Dose Admin Acetaminophen (Tylenol) 650 mg Q6H PRN GT Mild Pain (Pain Scale 1-3) 06/06/20 16:15 07/02/20 16:14 06/22/20 08:51 Amantadine HCl (Symmetrel) 100 mg TWICE A DAY GT 06/06/20 18:00 07/02/20 08:59 06/22/20 08:49 Aspirin (ASA) 81 mg DAILY GT 06/07/20 09:00 07/17/20 08:59 06/22/20 08:48 Dextrose 1,000 ml @ 100 mls/hr Q10H IV 06/17/20 09:00 07/17/20 08:59 06/22/20 08:49 Dextrose (Dextrose 50%) 25 ml Q30M PRN IV Hypoglycemia 06/22/20 07:00 09/20/20 06:59 Dextrose (Dextrose 50%) 50 ml Q30M PRN IV Hypoglycemia 06/22/20 07:00 09/20/20 06:59 Famotidine (Pepcid) 20 mg BID GT 06/06/20 18:00 09/01/20 17:59 06/22/20 08:49 Heparin Sodium (Porcine) (Heparin 5000 units/ml) 5,000 units EVERY 12 HOURS SUBQ 06/06/20 21:00 07/17/20 08:59 06/22/20 08:53 Insulin Aspart (NovoLOG) Q6HR SUBQ 06/11/20 18:00 09/09/20 17:59 06/22/20 05:45 Insulin Aspart (NovoLOG) 8 units EVERY 6 HOURS SUBQ 06/22/20 12:00 09/20/20 11:59 Insulin Detemir (Levemir) 28 units EVERY 12 HOURS SUBQ 06/21/20 09:00 09/09/20 20:59 06/22/20 09:00 Meropenem 1 gm/ Sodium Chloride 55 ml @ 110 mls/hr Q12H IVPB 06/21/20 17:00 06/26/20 16:59 06/22/20 05:40 Metoprolol Tartrate (Lopressor) 25 mg Q12HR GT 06/22/20 09:00 09/20/20 08:59 06/22/20 08:49 Midodrine (Pro-Amatine) 2.5 mg TIDPRN PRN ORAL blood pressure below 100 sbp 06/13/20 10:15 09/11/20 10:14 Pravastatin Sodium (Pravachol) 20 mg BEDTIME GT 06/06/20 21:00 07/02/20 20:59 06/21/20 20:22 Sennosides (Senokot) 8.6 mg DAILY GT 06/07/20 09:00 07/02/20 08:59 06/22/20 08:49 Vancomycin HCl (Vanco pharmacy to dose) 1 ea DAILY PRN MISC Per rx protocol 06/21/20 15:30 07/21/20 15:29 Vancomycin HCl 500 mg/Sodium Chloride 110 ml @ 110 mls/hr Q12HR@0600,1800 IVPB 06/21/20 18:00 06/26/20 17:59 06/22/20 06:00 Allergies: Coded Allergies: No Known Allergies (Unverified , 08/27/19) ROS Limited/Unobtainable: Yes Subjective 79 YO M admitted with hyperglycemia and hypernatremia. Now UTI. Cover for Int Med-Dr Rome Objective Last Vital Signs Date Time Temp Pulse Resp B/P (MAP) Pulse Ox O2 Delivery O2 Flow Rate FiO2 06/22/20 09:21 98.8 06/22/20 09:00 Room Air 06/22/20 08:49 128 126/73 06/22/20 08:00 20 98 Laboratory Tests Test 06/21/20 16:10 06/22/20 06:36 Urine Color Pale yellow Urine Appearance Cloudy Urine pH 8 (4.5-8.0) Urine Specific [place] 1.010 (1.005-1.035) Urine Protein 2+ (NEGATIVE) H Urine Glucose (UA) 2+ (NEGATIVE) H Urine Ketones Negative (NEGATIVE) Urine Blood 4+ (NEGATIVE) H Urine Nitrite Negative (NEGATIVE) Urine Bilirubin Negative (NEGATIVE) Urine Urobilinogen Normal MG/DL (0.0-1.0) Urine Leukocyte Esterase 3+ (NEGATIVE) H Urine RBC 2-4 /HPF (0 - 0) H Urine WBC 5-10 /HPF (0 - 0) H Urine Squamous Epithelial Cells None /LPF (NONE/OCC) Urine Triple Phosphate Crystals Many /LPF (NONE) H Urine Bacteria Many /HPF (NONE) H White Blood Count 13.5 K/UL (4.8-10.8) H Red Blood Count 3.71 M/UL (4.70-6.10) L Hemoglobin 11.1 G/DL (14.2-18.0) L Hematocrit 35.3 % (42.0-52.0) L Mean Corpuscular Volume 95 FL (80-99) Mean Corpuscular Hemoglobin 29.9 PG (27.0-31.0) Mean Corpuscular Hemoglobin Concent 31.4 G/DL (32.0-36.0) L Red Cell Distribution Width 15.3 % (11.6-14.8) H Platelet Count 159 K/UL (150-450) Mean Platelet Volume 10.5 FL (6.5-10.1) H Neutrophils (%) (Auto) % (45.0-75.0) Lymphocytes (%) (Auto) % (20.0-45.0) Monocytes (%) (Auto) % (1.0-10.0) Eosinophils (%) (Auto) % (0.0-3.0) Basophils (%) (Auto) % (0.0-2.0) Differential Total Cells Counted 100 Neutrophils % (Manual) 90 % (45-75) H Lymphocytes % (Manual) 6 % (20-45) L Monocytes % (Manual) 3 % (1-10) Eosinophils % (Manual) 1 % (0-3) Basophils % (Manual) 0 % (0-2) Band Neutrophils 0 % (0-8) Platelet Estimate Adequate Platelet Morphology Normal Sodium Level 137 MMOL/L (136-145) Potassium Level 4.9 MMOL/L (3.5-5.1) Chloride Level 102 MMOL/L (98-107) Carbon Dioxide Level 23 MMOL/L (21-32) Anion Gap 12 mmol/L (5-15) Blood Urea Nitrogen 25 mg/dL (7-18) H Creatinine 1.3 MG/DL (0.55-1.30) Estimat Glomerular Filtration Rate > 60 mL/min (>60) Glucose Level 421 MG/DL (74-106) H Calcium Level 8.3 MG/DL (8.5-10.1) L Total Bilirubin 0.4 MG/DL (0.2-1.0) Aspartate Amino Transf (AST/SGOT) 39 U/L (15-37) H Alanine Aminotransferase (ALT/SGPT) 50 U/L (12-78) Alkaline Phosphatase 192 U/L (46-116) H Total Protein 8.3 G/DL (6.4-8.2) H Albumin 2.1 G/DL (3.4-5.0) L Globulin 6.2 g/dL Albumin/Globulin Ratio 0.3 (1.0-2.7) L Microbiology Date/Time Source Procedure Growth Status 06/21/20 16:10 Nasopharynx SARS-CoV-2 RdRp Gene Assay - Final Complete 06/21/20 16:10 Urine,Clean Catch Urine Culture - Preliminary Resulted Intake and Output 06/21/20 06/22/20 19:00 07:00 Intake Total 860 ml 460 ml Output Total 1400 ml 300 ml Balance -540 ml 160 ml Free Water 200 ml IV Total 400 ml Tube Feeding 660 ml 60 ml Output Urine Total 1400 ml 300 ml Objective PHYSICAL EXAMINATION: GENERAL: The patient is a well-developed, well-nourished, thin-appearing, male, in no apparent distress. HEENT: Eyes, pupils equal and responsive to light and accommodation. Extraocular movements are intact. NECK: Supple without lymphadenopathy. CHEST: Lungs are clear to auscultation bilaterally without wheezes or rales. CARDIOVASCULAR: Slightly tachycardic, regular rhythm. S1, S2 are normal without murmurs, rubs, or gallops. ABDOMEN: Soft, nontender, and nondistended. Positive bowel sounds. No evidence of hepatosplenomegaly. Currently, no rebound or guarding noted. EXTREMITIES: Negative for clubbing, cyanosis, or edema. RECTAL: Not performed. GENITAL: Not performed. NEUROLOGIC: Cranial nerves II through XII are grossly intact without focal deficits. Assessment/Plan Assessment/Plan ASSESSMENT: This is a 79-year-old male with: 1. Hyperglycemia. 2. Hypernatremia. 3. Urinary tract infection=MDR proteus. 4. Diabetes type 2. 5. Hypertension. 6. Hypercholesterolemia. 7. Dysphagia. 8. Parkinson disease. 9. Ulcerative proctitis. 10. Protein-calorie malnutrition. 11. History of sacral decubitus ulcer stage IV. 12. Benign prostatic hypertrophy. 13. Gastroesophageal reflux disease. 14. Metabolic encephalopathy. 15. History of left hip fracture. TREATMENT: 1. Hyperglycemia/diabetes. The patient has been placed on a protocol using NovoLog sliding scale. The patient's blood sugars have been running in 300s. Hyperglycemia may be secondary to urinary tract infection. 2. Urinary tract infection. Urine culture =MDR proteus. ABX= meropenem and vancomycin results.ID=Dr Oliva 3. Hypertension. Continue amlodipine as above. 4. Hypercholesterolemia. Continue atorvastatin as above. 5. Dysphagia. The patient is status post PEG placement. 6. Parkinson disease. Continue amantadine as above. 7. Ulcerative proctitis. 8. Protein-calorie malnutrition. 9. Sacral decubitus ulcer stage IV. 10. Benign prostatic hypertrophy. Continue tamsulosin as above. 11. Gastroesophageal reflux disease. 12. Metabolic encephalopathy. 13. History of left hip fracture. Tello Cobb MD Jun 22, 2020 10:33
[2020-06-22 12:00] VITALS: BP 97/56
--- NOTE | 2020-06-22 13:35 | Infectious Diseases Prog Note ---
Assessment/Plan 79yo M with: COVID19 neg (06/01 rapid COVID PCR neg) Fever, recurrent- r/o STEFANI -06/21 rapid COVID PCR neg u/a wbc 5-10,nit neg, leuk +3; ucx p Bx p CXR p Leukocytosis, SP KELLY, improving UTI, sp rx 06/01 UA w/ pyuria, UCx + P Mirabilis ESBL 06/01 BCx Neg 06/01 CXR: No acute process COVID rapid test neg H/o ESBL Proteus in UCx in Oct 2019 Renal US w/ BL cysts PMH: DM2 Parkinson's dementia Bedridden G-tube Plan: Empiric IV Vancomycin and Meropenem #2 given recurrent fever 06/10 SP audra #8 06/02 SP erta #1 06/01 SP cefepime, vanco, flagyl x1 in ED Monitor CBC/BMP f/u ucx, Bcx x2, CXR D/w RN Thank you for this consult. [facility] will continue to follow. Subjective Allergies: Coded Allergies: No Known Allergies (Unverified , 08/27/19) continues to be febrile; Tm 102.6 at RA Objective Last 24 Hour Vital Signs Date Time Temp Pulse Resp B/P (MAP) Pulse Ox O2 Delivery O2 Flow Rate FiO2 06/22/20 12:00 89 06/22/20 12:00 98.2 87 24 97/56 (70) 97 06/22/20 09:21 98.8 06/22/20 09:00 Room Air 06/22/20 08:49 128 126/73 06/22/20 08:00 102.6 128 20 126/73 (90) 98 06/22/20 08:00 134 06/22/20 04:00 97.7 129 20 122/68 (86) 99 06/22/20 04:00 128 06/22/20 00:00 110 06/22/20 00:00 99.0 108 22 108/57 (74) 98 06/21/20 23:03 102.2 116 28 135/69 (91) 95 06/21/20 21:38 135 143/80 06/21/20 21:00 Room Air 06/21/20 21:00 131 28 95 06/21/20 20:00 96.6 135 30 143/80 (101) 95 06/21/20 16:00 100.8 107 18 133/77 (95) 96 Height (Feet): 5 Height (Inches): 5.00 Weight (Pounds): 123 GENERAL: no apparent distress. CHEST: Lungs are clear to auscultation bilaterally without wheezes or rales. CARDIOVASCULAR: regular rhythm. S1, S2 are normal without murmurs, rubs, or gallops. ABDOMEN: Soft, nontender, and nondistended. Positive bowel sounds. No evidence of hepatosplenomegaly. EXTREMITIES: Negative for clubbing, cyanosis, or edema. Microbiology Date/Time Source Procedure Growth Status 06/21/20 16:10 Nasopharynx SARS-CoV-2 RdRp Gene Assay - Final Complete 06/21/20 16:10 Urine,Clean Catch Urine Culture - Preliminary Resulted Laboratory Tests Test 06/21/20 16:10 06/22/20 05:38 06/22/20 06:36 06/22/20 08:57 Urine Color Pale yellow Urine Appearance Cloudy Urine pH 8 (4.5-8.0) Urine Specific [place] 1.010 (1.005-1.035) Urine Protein 2+ (NEGATIVE) H Urine Glucose (UA) 2+ (NEGATIVE) H Urine Ketones Negative (NEGATIVE) Urine Blood 4+ (NEGATIVE) H Urine Nitrite Negative (NEGATIVE) Urine Bilirubin Negative (NEGATIVE) Urine Urobilinogen Normal MG/DL (0.0-1.0) Urine Leukocyte Esterase 3+ (NEGATIVE) H Urine RBC 2-4 /HPF (0 - 0) H Urine WBC 5-10 /HPF (0 - 0) H Urine Squamous Epithelial Cells None /LPF (NONE/OCC) Urine Triple Phosphate Crystals Many /LPF (NONE) H Urine Bacteria Many /HPF (NONE) H POC Whole Blood Glucose 382 MG/DL (74-106) H 396 MG/DL (74-106) H White Blood Count 13.5 K/UL (4.8-10.8) H Red Blood Count 3.71 M/UL (4.70-6.10) L Hemoglobin 11.1 G/DL (14.2-18.0) L Hematocrit 35.3 % (42.0-52.0) L Mean Corpuscular Volume 95 FL (80-99) Mean Corpuscular Hemoglobin 29.9 PG (27.0-31.0) Mean Corpuscular Hemoglobin Concent 31.4 G/DL (32.0-36.0) L Red Cell Distribution Width 15.3 % (11.6-14.8) H Platelet Count 159 K/UL (150-450) Mean Platelet Volume 10.5 FL (6.5-10.1) H Neutrophils (%) (Auto) % (45.0-75.0) Lymphocytes (%) (Auto) % (20.0-45.0) Monocytes (%) (Auto) % (1.0-10.0) Eosinophils (%) (Auto) % (0.0-3.0) Basophils (%) (Auto) % (0.0-2.0) Differential Total Cells Counted 100 Neutrophils % (Manual) 90 % (45-75) H Lymphocytes % (Manual) 6 % (20-45) L Monocytes % (Manual) 3 % (1-10) Eosinophils % (Manual) 1 % (0-3) Basophils % (Manual) 0 % (0-2) Band Neutrophils 0 % (0-8) Platelet Estimate Adequate Platelet Morphology Normal Sodium Level 137 MMOL/L (136-145) Potassium Level 4.9 MMOL/L (3.5-5.1) Chloride Level 102 MMOL/L (98-107) Carbon Dioxide Level 23 MMOL/L (21-32) Anion Gap 12 mmol/L (5-15) Blood Urea Nitrogen 25 mg/dL (7-18) H Creatinine 1.3 MG/DL (0.55-1.30) Estimat Glomerular Filtration Rate > 60 mL/min (>60) Glucose Level 421 MG/DL (74-106) H Calcium Level 8.3 MG/DL (8.5-10.1) L Total Bilirubin 0.4 MG/DL (0.2-1.0) Aspartate Amino Transf (AST/SGOT) 39 U/L (15-37) H Alanine Aminotransferase (ALT/SGPT) 50 U/L (12-78) Alkaline Phosphatase 192 U/L (46-116) H Total Protein 8.3 G/DL (6.4-8.2) H Albumin 2.1 G/DL (3.4-5.0) L Globulin 6.2 g/dL Albumin/Globulin Ratio 0.3 (1.0-2.7) L Test 06/22/20 11:59 POC Whole Blood Glucose 331 MG/DL (74-106) H Current Medications Medications (Trade) Dose Ordered Sig/Debi Route PRN Reason Start Time Stop Time Status Last Admin Dose Admin Acetaminophen (Tylenol) 650 mg Q6H PRN GT Mild Pain (Pain Scale 1-3) 06/06/20 16:15 07/02/20 16:14 06/22/20 08:51 Amantadine HCl (Symmetrel) 100 mg TWICE A DAY GT 06/06/20 18:00 07/02/20 08:59 06/22/20 08:49 Aspirin (ASA) 81 mg DAILY GT 06/07/20 09:00 07/17/20 08:59 06/22/20 08:48 Dextrose 1,000 ml @ 100 mls/hr Q10H IV 06/17/20 09:00 07/17/20 08:59 06/22/20 08:49 Dextrose (Dextrose 50%) 25 ml Q30M PRN IV Hypoglycemia 06/22/20 07:00 09/20/20 06:59 Dextrose (Dextrose 50%) 50 ml Q30M PRN IV Hypoglycemia 06/22/20 07:00 09/20/20 06:59 Famotidine (Pepcid) 20 mg BID GT 06/06/20 18:00 09/01/20 17:59 06/22/20 08:49 Heparin Sodium (Porcine) (Heparin 5000 units/ml) 5,000 units EVERY 12 HOURS SUBQ 06/06/20 21:00 07/17/20 08:59 06/22/20 08:53 Insulin Aspart (NovoLOG) Q6HR SUBQ 06/11/20 18:00 09/09/20 17:59 06/22/20 12:04 Insulin Aspart (NovoLOG) 8 units EVERY 6 HOURS SUBQ 06/22/20 12:00 09/20/20 11:59 06/22/20 12:05 Insulin Detemir (Levemir) 28 units EVERY 12 HOURS SUBQ 06/21/20 09:00 09/09/20 20:59 06/22/20 09:00 Meropenem 1 gm/ Sodium Chloride 55 ml @ 110 mls/hr Q12H IVPB 06/21/20 17:00 06/26/20 16:59 06/22/20 05:40 Metoprolol Tartrate (Lopressor) 25 mg Q12HR GT 06/22/20 09:00 09/20/20 08:59 06/22/20 08:49 Midodrine (Pro-Amatine) 2.5 mg TIDPRN PRN ORAL blood pressure below 100 sbp 06/13/20 10:15 09/11/20 10:14 Pravastatin Sodium (Pravachol) 20 mg BEDTIME GT 06/06/20 21:00 07/02/20 20:59 06/21/20 20:22 Sennosides (Senokot) 8.6 mg DAILY GT 06/07/20 09:00 07/02/20 08:59 06/22/20 08:49 Vancomycin HCl (Vanco pharmacy to dose) 1 ea DAILY PRN MISC Per rx protocol 06/21/20 15:30 07/21/20 15:29 Vancomycin HCl 500 mg/Sodium Chloride 110 ml @ 110 mls/hr Q12HR@0600,1800 IVPB 06/21/20 18:00 06/26/20 17:59 06/22/20 06:00 Blaire Greenwood M.D. Jun 22, 2020 13:35
--- NOTE | 2020-06-22 13:46 | Nephrology Progress Note ---
Assessment/Plan Problem List: (1) Hypernatremia (2) Sepsis (3) History of CVA (cerebrovascular accident) (4) Parkinson disease (5) Feeding by G-tube (6) Dehydration Assessment KELLY, resolving, serum creatinine of 1.9 now down to 1.2 Hypernatremia, dehydration, free water deficit Sepsis Diabetes mellitus [id number] GT feeding Severe protein calorie malnutrition History of CVA History of hypertension Parkinson's disease Plan June 22: Clinically stable. Labs reviewed. Blood sugar elevated. Renal parameters stable. Continue blood sugar management per reed dipper June 21: Patient is febrile today. Abnormal electrolytes addressed. Stable from renal standpoint of view. June 20: No chemistry panel done today. Stable from renal standpoint. Will order chemistry panel tomorrow June 19: Labs reviewed. Phosphorus supplement given. Stable from renal standpoint of view. June 18: Lab reviewed. Serum sodium lower. Creatinine 1.1. Continue current management. June 17: Lab reviewed. Sodium 160. Creatinine 1.3. Calcium lower at 9. Will continue D5W. June 16: Labs reviewed. Renal parameters stable. Serum calcium lowering. Serum sodium lowering. Serum creatinine 1.3. Another 1 L of D5W ordered. June 15: Lab reviewed. Serum sodium high. 1 L D5W given. Serum creatinine 1.4. Pamidronate given yesterday. Continue to monitor serum calcium. June 14: Lab reviewed. Serum calcium high corrected for low serum albumin. 60 mg pamidronate ID given. Continue to monitor renal parameters calcium and phosphorus. June 13: Lab reviewed. Medication list reviewed. Renal parameters stable. Will watch serum calcium and serum sodium. Chemistry panel tomorrow. June 12: Labs reviewed. Stable from renal standpoint of view. June 11: Labs reviewed. Stable renal parameters. June 10: Lab reviewed. Serum potassium normalized. Will give 1 L of D5W for high serum sodium. Continue per consultants. June 09: Labs reviewed. Discussed with RN. Serum potassium elevated. Suspect hemolysis. Will repeat serum potassium. DC all potassium supplements. June 08: Serum sodium higher. Will give 1 L of D5W. Renal parameters stable. Continue to monitor electrolytes. Continue per consultants. June 07: 1 bolus of D5W. Renal parameters stable. Serum sodium slightly high. Stable from renal standpoint of view. June 06: We will again discontinue the IV ordered. Stable from renal standpoint of view. Will start midodrine for low blood pressure. June 05: DC IV fluid. Potassium supplement given. Stable from renal standpoint to view. June 04: Potassium and magnesium supplement IV given, stable from renal standpoint of view. IV fluid D5W Monitor electrolytes Monitor renal parameters Hold blood pressure medication since blood pressure low Per orders, per consultants Subjective ROS Limited/Unobtainable: No Constitutional: Reports: malaise, weakness Objective Objective Last 24 Hour Vital Signs Date Time Temp Pulse Resp B/P (MAP) Pulse Ox O2 Delivery O2 Flow Rate FiO2 06/22/20 12:00 89 06/22/20 12:00 98.2 87 24 97/56 (70) 97 06/22/20 09:21 98.8 06/22/20 09:00 Room Air 06/22/20 08:49 128 126/73 06/22/20 08:00 102.6 128 20 126/73 (90) 98 06/22/20 08:00 134 06/22/20 04:00 97.7 129 20 122/68 (86) 99 06/22/20 04:00 128 06/22/20 00:00 110 06/22/20 00:00 99.0 108 22 108/57 (74) 98 06/21/20 23:03 102.2 116 28 135/69 (91) 95 06/21/20 21:38 135 143/80 06/21/20 21:00 Room Air 06/21/20 21:00 131 28 95 06/21/20 20:00 96.6 135 30 143/80 (101) 95 06/21/20 16:00 100.8 107 18 133/77 (95) 96 Intake and Output 06/21/20 06/22/20 19:00 07:00 Intake Total 860 ml 460 ml Output Total 1400 ml 300 ml Balance -540 ml 160 ml Free Water 200 ml IV Total 400 ml Tube Feeding 660 ml 60 ml Output Urine Total 1400 ml 300 ml Laboratory Tests 06/21/20 16:10: Urine Color Pale yellow, Urine Appearance Cloudy, Urine pH 8, Urine Specific [place] 1.010, Urine Protein 2+H, Urine Glucose (UA) 2+H, Urine Ketones Negative , Urine Blood 4+H, Urine Nitrite Negative, Urine Bilirubin Negative, Urine Urobilinogen Normal, Urine Leukocyte Esterase 3+H, Urine RBC 2-4H, Urine WBC 5- 10H, Urine Squamous Epithelial Cells None, Urine Triple Phosphate Crystals ManyH , Urine Bacteria ManyH 06/22/20 05:38: POC Whole Blood Glucose 382H 06/22/20 06:36: White Blood Count 13.5H, Red Blood Count 3.71L, Hemoglobin 11.1L, Hematocrit 35.3L, Mean Corpuscular Volume 95, Mean Corpuscular Hemoglobin 29.9, Mean Corpuscular Hemoglobin Concent 31.4L, Red Cell Distribution Width 15.3H, Platelet Count 159, Mean Platelet Volume 10.5H, Neutrophils (%) (Auto) , Lymphocytes (%) (Auto) , Monocytes (%) (Auto) , Eosinophils (%) (Auto) , Basophils (%) (Auto) , Differential Total Cells Counted 100, Neutrophils % ( Manual) 90H, Lymphocytes % (Manual) 6L, Monocytes % (Manual) 3, Eosinophils % ( Manual) 1, Basophils % (Manual) 0, Band Neutrophils 0, Platelet Estimate Adequate, Platelet Morphology Normal, Sodium Level 137, Potassium Level 4.9, Chloride Level 102, Carbon Dioxide Level 23, Anion Gap 12, Blood Urea Nitrogen 25H, Creatinine 1.3, Estimat Glomerular Filtration Rate > 60, Glucose Level 421H , Calcium Level 8.3L, Total Bilirubin 0.4, Aspartate Amino Transf (AST/SGOT) 39H , Alanine Aminotransferase (ALT/SGPT) 50, Alkaline Phosphatase 192H, Total Protein 8.3H, Albumin 2.1L, Globulin 6.2, Albumin/Globulin Ratio 0.3L 06/22/20 08:57: POC Whole Blood Glucose 396H 06/22/20 11:59: POC Whole Blood Glucose 331H Height (Feet): 5 Height (Inches): 5.00 Weight (Pounds): 123 General Appearance: no apparent distress Cardiovascular: tachycardia Respiratory/Chest: decreased breath sounds Abdomen: soft, distended Objective No change Eddie Nelson MD Jun 22, 2020 13:46
--- NOTE | 2020-06-22 14:05 | NUR ---
CASE MANAGEMENT:REVIEW SI; SEPSIS. MDR PROTEUS UTI. MET ENCEPHALOPATHY. 102.6 135 24 97/56 95% ON RA WBC 13.5 BUN 25 BG 421 AST 39 ALP 192 ALB 2.1 IS;VANCOMYCIN IV Q12 MEROPENEM IV Q12 INSULIN LEVEMIR SUBQ Q12 LOPRESSOR GT Q12 INSULIN NOVOLOG SUBQ Q6 HEPARIN SUBQ Q12 AMANTADINE GT BID PEPCID GT BID TRANSFERRED FROM MT TO TELEMETRY ON 06/21/20 TELE STATUS DCP;FROM [facility]; HIGHER LEVEL OF CARE NEEDED
--- NOTE | 2020-06-22 14:54 | Surgery Progress Note ---
Surgery Progress Note Subjective Symptoms: improved, tolerating diet, passing flatus, BM Objective Last 24 Hour Vital Signs Date Time Temp Pulse Resp B/P (MAP) Pulse Ox O2 Delivery O2 Flow Rate FiO2 06/22/20 12:00 89 06/22/20 12:00 98.2 87 24 97/56 (70) 97 06/22/20 09:21 98.8 06/22/20 09:00 Room Air 06/22/20 08:49 128 126/73 06/22/20 08:00 102.6 128 20 126/73 (90) 98 06/22/20 08:00 134 06/22/20 04:00 97.7 129 20 122/68 (86) 99 06/22/20 04:00 128 06/22/20 00:00 110 06/22/20 00:00 99.0 108 22 108/57 (74) 98 06/21/20 23:03 102.2 116 28 135/69 (91) 95 06/21/20 21:38 135 143/80 06/21/20 21:00 Room Air 06/21/20 21:00 131 28 95 06/21/20 20:00 96.6 135 30 143/80 (101) 95 06/21/20 16:00 100.8 107 18 133/77 (95) 96 I&O Intake and Output 06/21/20 06/22/20 19:00 07:00 Intake Total 860 ml 460 ml Output Total 1400 ml 300 ml Balance -540 ml 160 ml Free Water 200 ml IV Total 400 ml Tube Feeding 660 ml 60 ml Output Urine Total 1400 ml 300 ml Dressing: saturated Wound: clean Cardiovascular: RSR Respiratory: clear, decreased breath sounds Abdomen: soft, non-tender, present bowel sounds Extremities: no edema, no tenderness, no cyanosis Laboratory Tests Test 06/21/20 16:10 06/22/20 05:38 06/22/20 06:36 06/22/20 08:57 Urine Color Pale yellow Urine Appearance Cloudy Urine pH 8 (4.5-8.0) Urine Specific [place] 1.010 (1.005-1.035) Urine Protein 2+ (NEGATIVE) H Urine Glucose (UA) 2+ (NEGATIVE) H Urine Ketones Negative (NEGATIVE) Urine Blood 4+ (NEGATIVE) H Urine Nitrite Negative (NEGATIVE) Urine Bilirubin Negative (NEGATIVE) Urine Urobilinogen Normal MG/DL (0.0-1.0) Urine Leukocyte Esterase 3+ (NEGATIVE) H Urine RBC 2-4 /HPF (0 - 0) H Urine WBC 5-10 /HPF (0 - 0) H Urine Squamous Epithelial Cells None /LPF (NONE/OCC) Urine Triple Phosphate Crystals Many /LPF (NONE) H Urine Bacteria Many /HPF (NONE) H POC Whole Blood Glucose 382 MG/DL (74-106) H 396 MG/DL (74-106) H White Blood Count 13.5 K/UL (4.8-10.8) H Red Blood Count 3.71 M/UL (4.70-6.10) L Hemoglobin 11.1 G/DL (14.2-18.0) L Hematocrit 35.3 % (42.0-52.0) L Mean Corpuscular Volume 95 FL (80-99) Mean Corpuscular Hemoglobin 29.9 PG (27.0-31.0) Mean Corpuscular Hemoglobin Concent 31.4 G/DL (32.0-36.0) L Red Cell Distribution Width 15.3 % (11.6-14.8) H Platelet Count 159 K/UL (150-450) Mean Platelet Volume 10.5 FL (6.5-10.1) H Neutrophils (%) (Auto) % (45.0-75.0) Lymphocytes (%) (Auto) % (20.0-45.0) Monocytes (%) (Auto) % (1.0-10.0) Eosinophils (%) (Auto) % (0.0-3.0) Basophils (%) (Auto) % (0.0-2.0) Differential Total Cells Counted 100 Neutrophils % (Manual) 90 % (45-75) H Lymphocytes % (Manual) 6 % (20-45) L Monocytes % (Manual) 3 % (1-10) Eosinophils % (Manual) 1 % (0-3) Basophils % (Manual) 0 % (0-2) Band Neutrophils 0 % (0-8) Platelet Estimate Adequate Platelet Morphology Normal Sodium Level 137 MMOL/L (136-145) Potassium Level 4.9 MMOL/L (3.5-5.1) Chloride Level 102 MMOL/L (98-107) Carbon Dioxide Level 23 MMOL/L (21-32) Anion Gap 12 mmol/L (5-15) Blood Urea Nitrogen 25 mg/dL (7-18) H Creatinine 1.3 MG/DL (0.55-1.30) Estimat Glomerular Filtration Rate > 60 mL/min (>60) Glucose Level 421 MG/DL (74-106) H Calcium Level 8.3 MG/DL (8.5-10.1) L Total Bilirubin 0.4 MG/DL (0.2-1.0) Aspartate Amino Transf (AST/SGOT) 39 U/L (15-37) H Alanine Aminotransferase (ALT/SGPT) 50 U/L (12-78) Alkaline Phosphatase 192 U/L (46-116) H Total Protein 8.3 G/DL (6.4-8.2) H Albumin 2.1 G/DL (3.4-5.0) L Globulin 6.2 g/dL Albumin/Globulin Ratio 0.3 (1.0-2.7) L Test 06/22/20 11:59 POC Whole Blood Glucose 331 MG/DL (74-106) H Plan Problems: (1) Hypernatremia (2) Dehydration (3) Hip fracture, left (4) Diabetes mellitus (5) History of hypertension (6) Severe protein-calorie malnutrition Assessment & Plan: DAILY ESTIMATED NEEDS: Needs based on Sepsis, DM/ 54kg 30-40 kcals/kg 8658-0531 total kcals 1.25-2 g protein/kg 68-108 g total protein 25-35ml/kcal mL/kg 5123-6569 total fluid mLs NUTRITION DIAGNOSIS: * Swallowing difficulty R/T dysphagia, as evidenced by Pt is GT dep. (CURRENT TF: Glucerna 1.5 @ 30ml/hr x 24 hrs) ENTERAL NUTRITION RECOMMENDATIONS: Glucerna 1.5 @ 60ml/hr x 20 hrs to provide 1200ml, 1800kcal, 99g prot, 911ml free water, 160g carbs * Rec to INCREASE TF GOAL to 60ml/hr for 20 hrs * HOB over 30 degrees, increased water flushes * TF at goal meets 100% est needs. -------- ADDITIONAL RECOMMENDATIONS: * Calibrated bedscale wt for accurate CBW * Monitor lytes daily w/ TF, replete as needed * Pt may require increase in insulin regimen for improved BG W/ continuous TF infusion * Wound healing: DOMENICA BID, F/up w/ WC eval . (7) Acute encephalopathy (8) Pressure Ulcer Of Sacral Region, Unstageable Assessment & Plan: Pt presented on admission with purple and indurated area at Sacrococcygeal at previously compromised site(L)7cm x (W)3cm.Surrounding Hyperpigmentation at Sacrum. Non-Blanching erythema without fluctuance R heel. Non-Blanching erythema with delineated margins L heel (L)4.5cm x (W)5.5cm. L Heel is boggy . Tx.Plan: Apply Moisture Barrier Paste to Sacrum. Cover with Optifoam drsgs. Change every 3 days and prn. Apply Cavilon Skin Barrier to R and L trochanter. Cover each site with Optifoam drsgs. Change every 7 days and prn. Apply Cavilon Skin Barrier to each heel and malleoli. Cover each site with Optifoam drsgs. Change every 7 days and prn. Reposition at least every 2hours or as tolerated. Off-load heels with pillow. improving cont current care tube site okay (9) Feeding by G-tube (10) Abdominal distention (11) Multiple drug resistant organism (MDRO) culture positive (12) Sepsis (13) History of CVA (cerebrovascular accident) (14) Parkinson disease James Breen Jun 22, 2020 14:54
--- NOTE | 2020-06-22 15:56 | Diagnostic Imaging Report ---
Indication: Cough Technique: One view of the chest Comparison: 06/03/2020 Findings: The lungs and pleural spaces are clear. The heart size is normal. The aorta is tortuous and ectatic. No significant change Impression: No acute process. Findings as noted
[2020-06-22 16:00] VITALS: BP 103/58
--- NOTE | 2020-06-22 17:17 | Pulmonology Progress Note ---
Subjective ROS Limited/Unobtainable: No Constitutional: Reports: no symptoms, anorexia HEENT: Repors: no symptoms Respiratory: Reports: no symptoms Cardiovascular: Reports: no symptoms Allergies: Coded Allergies: No Known Allergies (Unverified , 08/27/19) All Systems: reviewed and negative except above Objective Last 24 Hour Vital Signs Date Time Temp Pulse Resp B/P (MAP) Pulse Ox O2 Delivery O2 Flow Rate FiO2 06/22/20 16:00 97.9 116 20 103/58 (73) 100 06/22/20 12:00 89 06/22/20 12:00 98.2 87 24 97/56 (70) 97 06/22/20 09:21 98.8 06/22/20 09:00 Room Air 06/22/20 08:49 128 126/73 06/22/20 08:00 102.6 128 20 126/73 (90) 98 06/22/20 08:00 134 06/22/20 04:00 97.7 129 20 122/68 (86) 99 06/22/20 04:00 128 06/22/20 00:00 110 06/22/20 00:00 99.0 108 22 108/57 (74) 98 06/21/20 23:03 102.2 116 28 135/69 (91) 95 06/21/20 21:38 135 143/80 06/21/20 21:00 Room Air 06/21/20 21:00 131 28 95 06/21/20 20:00 96.6 135 30 143/80 (101) 95 Intake and Output 06/21/20 06/22/20 19:00 07:00 Intake Total 860 ml 570 ml Output Total 1400 ml 300 ml Balance -540 ml 270 ml Free Water 200 ml 50 ml IV Total 400 ml Tube Feeding 660 ml 120 ml Output Urine Total 1400 ml 300 ml General Appearance: cachetic HEENT: normocephalic, atraumatic Respiratory: chest wall non-tender, normal breath sounds Cardiovascular: normal peripheral pulses, normal rate Abdomen: normal bowel sounds Genitourinary: normal external genitalia Extremities: no clubbing Skin: no lesions Neurologic: optical advisor II-XII grossly normal Lymphatic: no neck adenopathy Microbiology Date/Time Source Procedure Growth Status 06/21/20 16:10 Nasopharynx SARS-CoV-2 RdRp Gene Assay - Final Complete 06/21/20 16:10 Urine,Clean Catch Urine Culture - Preliminary Resulted Laboratory Tests 06/22/20 05:38: POC Whole Blood Glucose 382H 06/22/20 06:36: White Blood Count 13.5H, Red Blood Count 3.71L, Hemoglobin 11.1L, Hematocrit 35.3L, Mean Corpuscular Volume 95, Mean Corpuscular Hemoglobin 29.9, Mean Corpuscular Hemoglobin Concent 31.4L, Red Cell Distribution Width 15.3H, Platelet Count 159, Mean Platelet Volume 10.5H, Neutrophils (%) (Auto) , Lymphocytes (%) (Auto) , Monocytes (%) (Auto) , Eosinophils (%) (Auto) , Basophils (%) (Auto) , Differential Total Cells Counted 100, Neutrophils % ( Manual) 90H, Lymphocytes % (Manual) 6L, Monocytes % (Manual) 3, Eosinophils % ( Manual) 1, Basophils % (Manual) 0, Band Neutrophils 0, Platelet Estimate Adequate, Platelet Morphology Normal, Sodium Level 137, Potassium Level 4.9, Chloride Level 102, Carbon Dioxide Level 23, Anion Gap 12, Blood Urea Nitrogen 25H, Creatinine 1.3, Estimat Glomerular Filtration Rate > 60, Glucose Level 421H , Calcium Level 8.3L, Total Bilirubin 0.4, Aspartate Amino Transf (AST/SGOT) 39H , Alanine Aminotransferase (ALT/SGPT) 50, Alkaline Phosphatase 192H, Total Protein 8.3H, Albumin 2.1L, Globulin 6.2, Albumin/Globulin Ratio 0.3L 06/22/20 08:57: POC Whole Blood Glucose 396H 06/22/20 11:59: POC Whole Blood Glucose 331H Current Medications Medications (Trade) Dose Ordered Sig/Debi Route PRN Reason Start Time Stop Time Status Last Admin Dose Admin Acetaminophen (Tylenol) 650 mg Q6H PRN GT Mild Pain (Pain Scale 1-3) 06/06/20 16:15 07/02/20 16:14 06/22/20 08:51 Amantadine HCl (Symmetrel) 100 mg TWICE A DAY GT 06/06/20 18:00 07/02/20 08:59 06/22/20 17:11 Aspirin (ASA) 81 mg DAILY GT 06/07/20 09:00 07/17/20 08:59 06/22/20 08:48 Dextrose 1,000 ml @ 100 mls/hr Q10H IV 06/17/20 09:00 07/17/20 08:59 06/22/20 08:49 Dextrose (Dextrose 50%) 25 ml Q30M PRN IV Hypoglycemia 06/22/20 07:00 09/20/20 06:59 Dextrose (Dextrose 50%) 50 ml Q30M PRN IV Hypoglycemia 06/22/20 07:00 09/20/20 06:59 Famotidine (Pepcid) 20 mg BID GT 06/06/20 18:00 09/01/20 17:59 06/22/20 17:11 Heparin Sodium (Porcine) (Heparin 5000 units/ml) 5,000 units EVERY 12 HOURS SUBQ 06/06/20 21:00 07/17/20 08:59 06/22/20 08:53 Insulin Aspart (NovoLOG) Q6HR SUBQ 06/11/20 18:00 09/09/20 17:59 06/22/20 12:04 Insulin Aspart (NovoLOG) 8 units EVERY 6 HOURS SUBQ 06/22/20 12:00 09/20/20 11:59 06/22/20 12:05 Insulin Detemir (Levemir) 28 units EVERY 12 HOURS SUBQ 06/21/20 09:00 09/09/20 20:59 06/22/20 09:00 Meropenem 1 gm/ Sodium Chloride 55 ml @ 110 mls/hr Q12H IVPB 06/21/20 17:00 06/26/20 16:59 06/22/20 17:10 Metoprolol Tartrate (Lopressor) 25 mg Q12HR GT 06/22/20 09:00 09/20/20 08:59 06/22/20 08:49 Midodrine (Pro-Amatine) 2.5 mg TIDPRN PRN ORAL blood pressure below 100 sbp 06/13/20 10:15 09/11/20 10:14 Pravastatin Sodium (Pravachol) 20 mg BEDTIME GT 06/06/20 21:00 07/02/20 20:59 06/21/20 20:22 Sennosides (Senokot) 8.6 mg DAILY GT 06/07/20 09:00 07/02/20 08:59 06/22/20 08:49 Vancomycin HCl ([facility] pharmacy to dose) 1 ea DAILY PRN MISC Per rx protocol 06/21/20 15:30 07/21/20 15:29 Vancomycin HCl 500 mg/Sodium Chloride 110 ml @ 110 mls/hr Q12HR@0600,1800 IVPB 06/21/20 18:00 06/26/20 17:59 06/22/20 06:00 Assessment/Plan Problems: (1) Sepsis (2) Multiple drug resistant organism (MDRO) culture positive (3) Hypernatremia (4) History of CVA (cerebrovascular accident) (5) History of hypertension (6) Parkinson disease (7) Severe protein-calorie malnutrition (8) Feeding by G-tube (9) Diabetes mellitus Assessment/Plan was febrile again transferred to telemetry because of tachycardia repeat all cultures , Urine has proteus,,MDR COVID Negative sliding scale all reviewed, symptomatic treatment dvt prophylaxis Latanya Mckeon MD Jun 22, 2020 17:17
--- NOTE | 2020-06-22 19:53 | NUR ---
NURSE HAND-OFF REPORT: Important Events on Shift: N/A Patient Status: N/A Diet:N/A Pending Orders: N/A Pending Results/Labs:N/A Pending MD notification:N/A Latest Vital Signs: Temperature 97.9 , Pulse 107 , B/P 103 /58 , Respiratory Rate 20 , O2 SAT 100 , Room Air, O2 Flow Rate 3.0 . Vital Sign Comment: N/A EKG Rhythm: Sinus Tachycardia Rhythm change?: N Notified?: Gabriela Mckeon MD Response: Message left await call Latest Lane Fall Score: 55 Fall Risk: High Risk Safety Measures: Call light Within Reach, Bed Alarm Zone 1, Side Rails Side Rails x3, Bed position Low and Locked. Fall Precautions: Yellow Socks Yellow Gown Report given to JOHNNY Harvey.
--- NOTE | 2020-06-22 19:55 | NUR ---
NURSE NOTES: Important Events on Shift: None Patient Status: stable Diet: glucerna 1.5 @ 60ml/hr Pending Orders: 2D Echo 06/23 Pending Results/Labs: BMP, CBC Pending MD notification: None Latest Vital Signs: Temperature 98.9 , Pulse 124 , B/P 122 /69 , Respiratory Rate 20 , O2 SAT 100 , Room Air, O2 Flow Rate 3.0 . Vital Sign Comment: stable EKG Rhythm: Sinus Rhythm Rhythm change?: N Notified?: Y FRIDA Mckeon MD Response: No new orders Latest Lane Fall Score: 55 Fall Risk: High Risk Safety Measures: Call light Within Reach, Bed Alarm Zone 1, Side Rails Side Rails x3, Bed position Low and Locked. Fall Precautions: YES Yellow Socks YES Yellow Gown YES Door Sign YES
[2020-06-22 20:00] VITALS: BP 122/69
[2020-06-23] VITALS: BP 113/77
[2020-06-23] MEDS: NovoLOG Insulin Flexpen SUBQ SCH ×8 (01:03→18:05)
[2020-06-23 04:00] VITALS: BP 120/69
[2020-06-23 05:32] LABS: BASOPHILS % (AUTO) 0.3 % (0.0-2.0); EOSINOPHILS % (AUTO) 1.2 % (0.0-3.0); HEMATOCRIT 36.3 % (42.0-52.0); HEMOGLOBIN 11.4 G/DL (14.2-18.0); LYMPHOCYTES % (AUTO) 16.1 % (20.0-45.0); MEAN CORPUSCULAR VOLUME 96 FL (80-99); MONOCYTES % (AUTO) 9.8 % (1.0-10.0); NEUTROPHILS % (AUTO) 72.7 % (45.0-75.0); PLATELET COUNT 152 K/UL (150-450); RED BLOOD COUNT 3.78 M/UL (4.70-6.10); WHITE BLOOD COUNT 11.9 K/UL (4.8-10.8)
[2020-06-23 05:50] LABS: ANION GAP 7 mmol/L (5-15); BLOOD UREA NITROGEN 35 mg/dL (7-18); CALCIUM 9.2 MG/DL (8.5-10.1); CARBON DIOXIDE 29 MMOL/L (21-32); CHLORIDE 106 MMOL/L (98-107); CREATININE 1.3 MG/DL (0.55-1.30); POTASSIUM 4.6 MMOL/L (3.5-5.1); SODIUM 142 MMOL/L (136-145)
[2020-06-23] MEDS: Meropenem 1 GM in NS 55 ML IVPB SCH ×2 (06:36→16:45)
--- NOTE | 2020-06-23 07:30 | NUR ---
NURSE NOTES: Received patient in bed. Awake, alert x1, speech is delayed and diminished. On room air, respirations unlabored. Denies pain. IV in the Left FA, infusing IVF as ordered. Gt flushed and patent. Patient is a high fall risk d/t Lane fall score of 55. Patient placed in a room close to the nurse's station for safety and close monitoring. Yellow socks on, yellow gown on, bed at the lowest position, bed locked, bed alarm placed on high sensitivity, call light placed within reach - unable to return demonstration. CN and TERADATA DEVELOPER made aware.
--- NOTE | 2020-06-23 07:55 | NUR ---
NURSE HAND-OFF REPORT: Important Events on Shift: IV site DC'd, new IV L wirst 22g running D5W @ 100ml/hr Patient Status: stable Diet: Glucerna 1.5 @ 60ml/hr Pending Orders: 2D echo Pending Results/Labs: BMP, CBC Pending MD notification: none Latest Vital Signs: Temperature 98.8 , Pulse 100 , B/P 120 /69 , Respiratory Rate 20 , O2 SAT 100 , Room Air, O2 Flow Rate 3.0 . Vital Sign Comment: EKG Rhythm: Sinus Tachycardia Rhythm change?: Gabriela PERKINS Notified?: N -MD Mike PERKINS Response: Message left await call Latest Lane Fall Score: 55 Fall Risk: High Risk Safety Measures: Call light Within Reach, Bed Alarm Zone 1, Side Rails Side Rails x3, Bed position Low and Locked. Fall Precautions: Yellow Socks YES Yellow Gown YES Door Sign YES Report given to Madan Ordoñez RN
[2020-06-23 08:00] VITALS: BP 113/70
[2020-06-23] MEDS: Sennosides 8.6mg tab GT SCH (08:43)
[2020-06-23] MEDS: Aspirin Baby 81mg GT SCH (08:43)
[2020-06-23] MEDS: Vancomycin 750mg/NS 275ml IVPB SCH ×4 (08:43→18:03)
[2020-06-23] MEDS: Amantadine 100mg cap GT SCH ×2 (08:43→17:18)
[2020-06-23] MEDS: Levemir Flexpen SUBQ SCH ×2 (08:52→22:04)
[2020-06-23] MEDS: Heparin 5000 units/ml inj SUBQ SCH ×2 (08:53→21:00)
--- NOTE | 2020-06-23 10:15 | Surgery Progress Note ---
Surgery Progress Note Subjective Additional Comments wbc improved states he feels well no complaints micro noted blood cx ngtd Objective Last 24 Hour Vital Signs Date Time Temp Pulse Resp B/P (MAP) Pulse Ox O2 Delivery O2 Flow Rate FiO2 06/23/20 08:44 107 113/70 06/23/20 08:00 98.6 107 19 113/70 (84) 96 06/23/20 08:00 121 06/23/20 04:00 98.8 100 120/69 (86) 06/23/20 04:00 90 06/23/20 00:00 98.4 92 113/77 (89) 06/22/20 22:04 98.9 06/22/20 21:33 124 122/69 06/22/20 21:00 Room Air 06/22/20 20:00 124 06/22/20 20:00 100.4 124 122/69 (86) 06/22/20 16:00 107 06/22/20 16:00 97.9 116 20 103/58 (73) 100 06/22/20 12:00 89 06/22/20 12:00 98.2 87 24 97/56 (70) 97 I&O Intake and Output 06/22/20 06/23/20 19:00 07:00 Intake Total 1910 ml Output Total 1200 ml Balance 710 ml Free Water 150 ml IV Total 1100 ml Tube Feeding 660 ml Output Urine Total 1200 ml # Voids 2 # Bowel Movements 1 1 Dressing: saturated Wound: clean Cardiovascular: RSR Respiratory: clear Abdomen: soft, non-tender, present bowel sounds Extremities: no edema, no tenderness, no cyanosis Laboratory Tests Test 06/22/20 11:59 06/22/20 17:26 06/22/20 21:41 06/23/20 05:26 POC Whole Blood Glucose 331 MG/DL (74-106) H 214 MG/DL (74-106) H Pending White Blood Count 11.9 K/UL (4.8-10.8) H Red Blood Count 3.78 M/UL (4.70-6.10) L Hemoglobin 11.4 G/DL (14.2-18.0) L Hematocrit 36.3 % (42.0-52.0) L Mean Corpuscular Volume 96 FL (80-99) Mean Corpuscular Hemoglobin 30.1 PG (27.0-31.0) Mean Corpuscular Hemoglobin Concent 31.4 G/DL (32.0-36.0) L Red Cell Distribution Width 15.0 % (11.6-14.8) H Platelet Count 152 K/UL (150-450) Mean Platelet Volume 8.5 FL (6.5-10.1) Neutrophils (%) (Auto) 72.7 % (45.0-75.0) Lymphocytes (%) (Auto) 16.1 % (20.0-45.0) L Monocytes (%) (Auto) 9.8 % (1.0-10.0) Eosinophils (%) (Auto) 1.2 % (0.0-3.0) Basophils (%) (Auto) 0.3 % (0.0-2.0) Sodium Level 142 MMOL/L (136-145) Potassium Level 4.6 MMOL/L (3.5-5.1) Chloride Level 106 MMOL/L (98-107) Carbon Dioxide Level 29 MMOL/L (21-32) Anion Gap 7 mmol/L (5-15) Blood Urea Nitrogen 35 mg/dL (7-18) H Creatinine 1.3 MG/DL (0.55-1.30) Estimat Glomerular Filtration Rate > 60 mL/min (>60) Glucose Level 309 MG/DL (74-106) #H Calcium Level 9.2 MG/DL (8.5-10.1) Vancomycin Level Trough 10.4 ug/mL (5.0-12.0) Test 06/23/20 06:26 POC Whole Blood Glucose Pending Plan Problems: (1) Hypernatremia (2) Dehydration (3) Hip fracture, left (4) Diabetes mellitus (5) History of hypertension (6) Severe protein-calorie malnutrition Assessment & Plan: DAILY ESTIMATED NEEDS: Needs based on Sepsis, DM/ 54kg 30-40 kcals/kg 7651-2225 total kcals 1.25-2 g protein/kg 68-108 g total protein 25-35ml/kcal mL/kg 9711-5982 total fluid mLs NUTRITION DIAGNOSIS: * Swallowing difficulty R/T dysphagia, as evidenced by Pt is GT dep. (CURRENT TF: Glucerna 1.5 @ 30ml/hr x 24 hrs) ENTERAL NUTRITION RECOMMENDATIONS: Glucerna 1.5 @ 60ml/hr x 20 hrs to provide 1200ml, 1800kcal, 99g prot, 911ml free water, 160g carbs * Rec to INCREASE TF GOAL to 60ml/hr for 20 hrs * HOB over 30 degrees, increased water flushes * TF at goal meets 100% est needs. -------- ADDITIONAL RECOMMENDATIONS: * Calibrated bedscale wt for accurate CBW * Monitor lytes daily w/ TF, replete as needed * Pt may require increase in insulin regimen for improved BG W/ continuous TF infusion * Wound healing: DOMENICA BID, F/up w/ WC eval . (7) Acute encephalopathy (8) Pressure Ulcer Of Sacral Region, Unstageable Assessment & Plan: Pt presented on admission with purple and indurated area at Sacrococcygeal at previously compromised site(L)7cm x (W)3cm.Surrounding Hyperpigmentation at Sacrum. Non-Blanching erythema without fluctuance R heel. Non-Blanching erythema with delineated margins L heel (L)4.5cm x (W)5.5cm. L Heel is boggy . Tx.Plan: Apply Moisture Barrier Paste to Sacrum. Cover with Optifoam drsgs. Change every 3 days and prn. Apply Cavilon Skin Barrier to R and L trochanter. Cover each site with Optifoam drsgs. Change every 7 days and prn. Apply Cavilon Skin Barrier to each heel and malleoli. Cover each site with Optifoam drsgs. Change every 7 days and prn. Reposition at least every 2hours or as tolerated. Off-load heels with pillow. improving cont current care tube site okay (9) Feeding by G-tube (10) Abdominal distention (11) Multiple drug resistant organism (MDRO) culture positive (12) Sepsis (13) History of CVA (cerebrovascular accident) (14) Parkinson disease James Breen Jun 23, 2020 10:15
--- NOTE | 2020-06-23 11:00 | Nephrology Progress Note ---
Assessment/Plan Problem List: (1) Hypernatremia (2) Sepsis (3) History of CVA (cerebrovascular accident) (4) Parkinson disease (5) Feeding by G-tube (6) Dehydration Assessment KELLY, resolving, serum creatinine of 1.9 now down to 1.2 Hypernatremia, dehydration, free water deficit Sepsis Diabetes mellitus [id number] GT feeding Severe protein calorie malnutrition History of CVA History of hypertension Parkinson's disease Plan June 23: Labs reviewed. Medication list reviewed. Renal parameters stable. Blood sugar needs better control. Defer to PMD and tower switch operator. June 22: Clinically stable. Labs reviewed. Blood sugar elevated. Renal parameters stable. Continue blood sugar management per tower switch operator June 21: Patient is febrile today. Abnormal electrolytes addressed. Stable from renal standpoint of view. June 20: No chemistry panel done today. Stable from renal standpoint. Will order chemistry panel tomorrow June 19: Labs reviewed. Phosphorus supplement given. Stable from renal standpoint of view. June 18: Lab reviewed. Serum sodium lower. Creatinine 1.1. Continue current management. June 17: Lab reviewed. Sodium 160. Creatinine 1.3. Calcium lower at 9. Will continue D5W. June 16: Labs reviewed. Renal parameters stable. Serum calcium lowering. Serum sodium lowering. Serum creatinine 1.3. Another 1 L of D5W ordered. June 15: Lab reviewed. Serum sodium high. 1 L D5W given. Serum creatinine 1.4. Pamidronate given yesterday. Continue to monitor serum calcium. June 14: Lab reviewed. Serum calcium high corrected for low serum albumin. 60 mg pamidronate ID given. Continue to monitor renal parameters calcium and phosphorus. June 13: Lab reviewed. Medication list reviewed. Renal parameters stable. Will watch serum calcium and serum sodium. Chemistry panel tomorrow. June 12: Labs reviewed. Stable from renal standpoint of view. June 11: Labs reviewed. Stable renal parameters. June 10: Lab reviewed. Serum potassium normalized. Will give 1 L of D5W for high serum sodium. Continue per consultants. June 09: Labs reviewed. Discussed with RN. Serum potassium elevated. Suspect hemolysis. Will repeat serum potassium. DC all potassium supplements. June 08: Serum sodium higher. Will give 1 L of D5W. Renal parameters stable. Continue to monitor electrolytes. Continue per consultants. June 07: 1 bolus of D5W. Renal parameters stable. Serum sodium slightly high. Stable from renal standpoint of view. June 06: We will again discontinue the IV ordered. Stable from renal standpoint of view. Will start midodrine for low blood pressure. June 05: DC IV fluid. Potassium supplement given. Stable from renal standpoint to view. June 04: Potassium and magnesium supplement IV given, stable from renal standpoint of view. IV fluid D5W Monitor electrolytes Monitor renal parameters Hold blood pressure medication since blood pressure low Per orders, per consultants Subjective ROS Limited/Unobtainable: No Objective Objective Last 24 Hour Vital Signs Date Time Temp Pulse Resp B/P (MAP) Pulse Ox O2 Delivery O2 Flow Rate FiO2 06/23/20 09:00 Room Air 06/23/20 08:44 107 113/70 06/23/20 08:00 98.6 107 19 113/70 (84) 96 06/23/20 08:00 121 06/23/20 04:00 98.8 100 120/69 (86) 06/23/20 04:00 90 06/23/20 00:00 98.4 92 113/77 (89) 06/22/20 22:04 98.9 06/22/20 21:33 124 122/69 06/22/20 21:00 Room Air 06/22/20 20:00 124 06/22/20 20:00 100.4 124 122/69 (86) 06/22/20 16:00 107 06/22/20 16:00 97.9 116 20 103/58 (73) 100 06/22/20 12:00 89 06/22/20 12:00 98.2 87 24 97/56 (70) 97 Intake and Output 06/22/20 06/23/20 19:00 07:00 Intake Total 1910 ml Output Total 1200 ml Balance 710 ml Free Water 150 ml IV Total 1100 ml Tube Feeding 660 ml Output Urine Total 1200 ml # Voids 2 # Bowel Movements 1 1 Laboratory Tests 06/22/20 11:59: POC Whole Blood Glucose 331H 06/22/20 17:26: POC Whole Blood Glucose 214H 06/22/20 21:41: POC Whole Blood Glucose [Pending] 06/23/20 05:26: White Blood Count 11.9H, Red Blood Count 3.78L, Hemoglobin 11.4L, Hematocrit 36.3L, Mean Corpuscular Volume 96, Mean Corpuscular Hemoglobin 30.1, Mean Corpuscular Hemoglobin Concent 31.4L, Red Cell Distribution Width 15.0H, Platelet Count 152, Mean Platelet Volume 8.5, Neutrophils (%) (Auto) 72.7, Lymphocytes (%) (Auto) 16.1L, Monocytes (%) (Auto) 9.8, Eosinophils (%) (Auto) 1.2, Basophils (%) (Auto) 0.3, Sodium Level 142, Potassium Level 4.6, Chloride Level 106, Carbon Dioxide Level 29, Anion Gap 7, Blood Urea Nitrogen 35H, Creatinine 1.3, Estimat Glomerular Filtration Rate > 60, Glucose Level 309#H, Calcium Level 9.2, Vancomycin Level Trough 10.4 06/23/20 06:26: POC Whole Blood Glucose [Pending] Height (Feet): 5 Height (Inches): 5.00 Weight (Pounds): 123 General Appearance: no apparent distress Cardiovascular: bradycardia Respiratory/Chest: decreased breath sounds Abdomen: distended Objective No change Eddie Nelson MD Jun 23, 2020 11:00
[2020-06-23 12:00] VITALS: BP 118/65
--- NOTE | 2020-06-23 13:01 | Pulmonology Progress Note ---
Subjective ROS Limited/Unobtainable: No Constitutional: Reports: no symptoms, anorexia HEENT: Repors: no symptoms Respiratory: Reports: no symptoms Cardiovascular: Reports: no symptoms Allergies: Coded Allergies: No Known Allergies (Unverified , 08/27/19) All Systems: reviewed and negative except above Objective Last 24 Hour Vital Signs Date Time Temp Pulse Resp B/P (MAP) Pulse Ox O2 Delivery O2 Flow Rate FiO2 06/23/20 12:00 87 06/23/20 12:00 98.1 101 20 118/65 (82) 95 06/23/20 09:00 Room Air 06/23/20 08:44 107 113/70 06/23/20 08:00 98.6 107 19 113/70 (84) 96 06/23/20 08:00 121 06/23/20 04:00 98.8 100 120/69 (86) 06/23/20 04:00 90 06/23/20 00:00 98.4 92 113/77 (89) 06/22/20 22:04 98.9 06/22/20 21:33 124 122/69 06/22/20 21:00 Room Air 06/22/20 20:00 124 06/22/20 20:00 100.4 124 122/69 (86) 06/22/20 16:00 107 06/22/20 16:00 97.9 116 20 103/58 (73) 100 Intake and Output 06/22/20 06/23/20 19:00 07:00 Intake Total 1910 ml 100 ml Output Total 1200 ml Balance 710 ml 100 ml Free Water 150 ml IV Total 1100 ml 100 ml Tube Feeding 660 ml Output Urine Total 1200 ml # Voids 2 # Bowel Movements 1 1 General Appearance: cachetic HEENT: normocephalic, atraumatic Respiratory: chest wall non-tender, normal breath sounds Cardiovascular: normal peripheral pulses, normal rate Abdomen: normal bowel sounds Genitourinary: normal external genitalia Extremities: no clubbing Skin: no lesions Neurologic: clinical neuropsychologist II-XII grossly normal Lymphatic: no neck adenopathy Microbiology Date/Time Source Procedure Growth Status 06/21/20 21:30 Blood Blood Culture - Preliminary Resulted 06/21/20 21:15 Blood Blood Culture - Preliminary Resulted 06/21/20 16:10 Nasopharynx SARS-CoV-2 RdRp Gene Assay - Final Complete 06/21/20 16:10 Urine,Clean Catch Urine Culture - Preliminary Gram Negative Bacillus 1 Resulted Laboratory Tests 06/22/20 17:26: POC Whole Blood Glucose 214H 06/22/20 21:41: POC Whole Blood Glucose [Pending] 06/23/20 05:26: White Blood Count 11.9H, Red Blood Count 3.78L, Hemoglobin 11.4L, Hematocrit 36.3L, Mean Corpuscular Volume 96, Mean Corpuscular Hemoglobin 30.1, Mean Corpuscular Hemoglobin Concent 31.4L, Red Cell Distribution Width 15.0H, Platelet Count 152, Mean Platelet Volume 8.5, Neutrophils (%) (Auto) 72.7, Lymphocytes (%) (Auto) 16.1L, Monocytes (%) (Auto) 9.8, Eosinophils (%) (Auto) 1.2, Basophils (%) (Auto) 0.3, Sodium Level 142, Potassium Level 4.6, Chloride Level 106, Carbon Dioxide Level 29, Anion Gap 7, Blood Urea Nitrogen 35H, Creatinine 1.3, Estimat Glomerular Filtration Rate > 60, Glucose Level 309#H, Calcium Level 9.2, Vancomycin Level Trough 10.4 06/23/20 06:26: POC Whole Blood Glucose [Pending] 06/23/20 11:45: POC Whole Blood Glucose 94 Current Medications Medications (Trade) Dose Ordered Sig/Debi Route PRN Reason Start Time Stop Time Status Last Admin Dose Admin Acetaminophen (Tylenol) 650 mg Q6H PRN GT Mild Pain (Pain Scale 1-3) 06/06/20 16:15 07/02/20 16:14 06/22/20 21:34 Amantadine HCl (Symmetrel) 100 mg TWICE A DAY GT 06/06/20 18:00 07/02/20 08:59 06/23/20 08:43 Aspirin (ASA) 81 mg DAILY GT 06/07/20 09:00 07/17/20 08:59 06/23/20 08:43 Dextrose 1,000 ml @ 100 mls/hr Q10H IV 06/17/20 09:00 07/17/20 08:59 06/23/20 05:00 Dextrose (Dextrose 50%) 25 ml Q30M PRN IV Hypoglycemia 06/22/20 07:00 09/20/20 06:59 Dextrose (Dextrose 50%) 50 ml Q30M PRN IV Hypoglycemia 06/22/20 07:00 09/20/20 06:59 Famotidine (Pepcid) 20 mg BID GT 06/06/20 18:00 09/01/20 17:59 06/23/20 08:43 Heparin Sodium (Porcine) (Heparin 5000 units/ml) 5,000 units EVERY 12 HOURS SUBQ 06/06/20 21:00 07/17/20 08:59 06/23/20 08:53 Insulin Aspart (NovoLOG) Q6HR SUBQ 06/11/20 18:00 09/09/20 17:59 06/23/20 06:40 Insulin Aspart (NovoLOG) 8 units EVERY 6 HOURS SUBQ 06/22/20 12:00 09/20/20 11:59 06/23/20 06:41 Insulin Detemir (Levemir) 28 units EVERY 12 HOURS SUBQ 06/21/20 09:00 09/09/20 20:59 06/23/20 08:52 Meropenem 1 gm/ Sodium Chloride 55 ml @ 110 mls/hr Q12H IVPB 06/21/20 17:00 06/26/20 16:59 06/23/20 06:36 Metoprolol Tartrate (Lopressor) 25 mg Q12HR GT 06/22/20 09:00 09/20/20 08:59 06/23/20 08:44 Midodrine (Pro-Amatine) 2.5 mg TIDPRN PRN ORAL blood pressure below 100 sbp 06/13/20 10:15 09/11/20 10:14 Pravastatin Sodium (Pravachol) 20 mg BEDTIME GT 06/06/20 21:00 07/02/20 20:59 06/22/20 21:33 Sennosides (Senokot) 8.6 mg DAILY GT 06/07/20 09:00 07/02/20 08:59 06/23/20 08:43 Vancomycin HCl (Vanco pharmacy to dose) 1 ea DAILY PRN MISC Per rx protocol 06/21/20 15:30 07/21/20 15:29 Vancomycin HCl 750 mg/Sodium Chloride 275 ml @ 183.333 mls/hr Q12H IVPB 06/23/20 07:00 06/28/20 06:59 06/23/20 08:43 Assessment/Plan Problems: (1) Sepsis (2) Multiple drug resistant organism (MDRO) culture positive (3) Hypernatremia (4) History of CVA (cerebrovascular accident) (5) History of hypertension (6) Parkinson disease (7) Severe protein-calorie malnutrition (8) Feeding by G-tube (9) Diabetes mellitus Assessment/Plan still tachy repeat cxr is clear transferred to telemetry because of tachycardia repeat all cultures , Urine has proteus,,MDR COVID Negative sliding scale all reviewed, symptomatic treatment dvt prophylaxis Latanya Mckeon MD Jun 23, 2020 13:01
[2020-06-23 16:00] VITALS: BP 126/67
--- NOTE | 2020-06-23 16:00 | NUR ---
NURSE NOTES: Dr. Greenwood informed of blood cultures gram positive cocci in blood cultures. Doctor to enter new orders.
--- NOTE | 2020-06-23 16:04 | Infectious Diseases Prog Note ---
Assessment/Plan 79yo M with: COVID19 neg (06/01 rapid COVID PCR neg) Sespsis, recurrent Gram positive bacteremia UTI -06/21 rapid COVID PCR neg u/a wbc 5-10,nit neg, leuk +3; ucx >100k GNR Bx 3/4 GPC clusteres CXR No acute process. Fever, recurrent Leukocytosis, recurrent; improving KELLY, improving UTI, sp rx 06/01 UA w/ pyuria, UCx + P Mirabilis ESBL 06/01 BCx Neg 06/01 CXR: No acute process COVID rapid test neg H/o ESBL Proteus in UCx in Oct 2019 Renal US w/ BL cysts PMH: DM2 Parkinson's dementia Bedridden G-tube Plan: Empiric IV Vancomycin and Meropenem #3 for bacteremia and UTI pending cultures 06/10 SP audra #8 06/02 SP erta #1 06/01 SP cefepime, vanco, flagyl x1 in ED Monitor CBC/BMP f/u ucx, Bcx x2, CXR Bcx x2, 2d echo D/w RN Thank you for this consult. [facility] will continue to follow. Subjective Allergies: Coded Allergies: No Known Allergies (Unverified , 08/27/19) Tm 100.4 wbc improving bactremic Objective Last 24 Hour Vital Signs Date Time Temp Pulse Resp B/P (MAP) Pulse Ox O2 Delivery O2 Flow Rate FiO2 06/23/20 12:00 87 06/23/20 12:00 98.1 101 20 118/65 (82) 95 06/23/20 09:00 Room Air 06/23/20 08:44 107 113/70 06/23/20 08:00 98.6 107 19 113/70 (84) 96 06/23/20 08:00 121 06/23/20 04:00 98.8 100 120/69 (86) 06/23/20 04:00 90 06/23/20 00:00 98.4 92 113/77 (89) 06/22/20 22:04 98.9 06/22/20 21:33 124 122/69 06/22/20 21:00 Room Air 06/22/20 20:00 124 06/22/20 20:00 100.4 124 122/69 (86) 06/22/20 16:00 107 06/22/20 16:00 97.9 116 20 103/58 (73) 100 Height (Feet): 5 Height (Inches): 5.00 Weight (Pounds): 123 GENERAL: no apparent distress. CHEST: Lungs are clear to auscultation bilaterally without wheezes or rales. CARDIOVASCULAR: regular rhythm. S1, S2 are normal without murmurs, rubs, or gallops. ABDOMEN: Soft, nontender, and nondistended. Positive bowel sounds. No evidence of hepatosplenomegaly. EXTREMITIES: Negative for clubbing, cyanosis, or edema. Microbiology Date/Time Source Procedure Growth Status 06/21/20 21:30 Blood Blood Culture - Preliminary Resulted 06/21/20 21:15 Blood Blood Culture - Preliminary Resulted 06/21/20 16:10 Nasopharynx SARS-CoV-2 RdRp Gene Assay - Final Complete 06/21/20 16:10 Urine,Clean Catch Urine Culture - Preliminary Gram Negative Bacillus 1 Resulted Laboratory Tests Test 06/22/20 17:26 06/22/20 21:41 06/23/20 05:26 06/23/20 06:26 POC Whole Blood Glucose 214 MG/DL (74-106) H Pending Pending White Blood Count 11.9 K/UL (4.8-10.8) H Red Blood Count 3.78 M/UL (4.70-6.10) L Hemoglobin 11.4 G/DL (14.2-18.0) L Hematocrit 36.3 % (42.0-52.0) L Mean Corpuscular Volume 96 FL (80-99) Mean Corpuscular Hemoglobin 30.1 PG (27.0-31.0) Mean Corpuscular Hemoglobin Concent 31.4 G/DL (32.0-36.0) L Red Cell Distribution Width 15.0 % (11.6-14.8) H Platelet Count 152 K/UL (150-450) Mean Platelet Volume 8.5 FL (6.5-10.1) Neutrophils (%) (Auto) 72.7 % (45.0-75.0) Lymphocytes (%) (Auto) 16.1 % (20.0-45.0) L Monocytes (%) (Auto) 9.8 % (1.0-10.0) Eosinophils (%) (Auto) 1.2 % (0.0-3.0) Basophils (%) (Auto) 0.3 % (0.0-2.0) Sodium Level 142 MMOL/L (136-145) Potassium Level 4.6 MMOL/L (3.5-5.1) Chloride Level 106 MMOL/L (98-107) Carbon Dioxide Level 29 MMOL/L (21-32) Anion Gap 7 mmol/L (5-15) Blood Urea Nitrogen 35 mg/dL (7-18) H Creatinine 1.3 MG/DL (0.55-1.30) Estimat Glomerular Filtration Rate > 60 mL/min (>60) Glucose Level 309 MG/DL (74-106) #H Calcium Level 9.2 MG/DL (8.5-10.1) Vancomycin Level Trough 10.4 ug/mL (5.0-12.0) Test 06/23/20 11:45 POC Whole Blood Glucose 94 MG/DL (74-106) Current Medications Medications (Trade) Dose Ordered Sig/Debi Route PRN Reason Start Time Stop Time Status Last Admin Dose Admin Acetaminophen (Tylenol) 650 mg Q6H PRN GT Mild Pain (Pain Scale 1-3) 06/06/20 16:15 07/02/20 16:14 06/22/20 21:34 Amantadine HCl (Symmetrel) 100 mg TWICE A DAY GT 06/06/20 18:00 07/02/20 08:59 06/23/20 08:43 Aspirin (ASA) 81 mg DAILY GT 06/07/20 09:00 07/17/20 08:59 06/23/20 08:43 Dextrose 1,000 ml @ 100 mls/hr Q10H IV 06/17/20 09:00 07/17/20 08:59 06/23/20 15:14 Dextrose (Dextrose 50%) 25 ml Q30M PRN IV Hypoglycemia 06/22/20 07:00 09/20/20 06:59 Dextrose (Dextrose 50%) 50 ml Q30M PRN IV Hypoglycemia 06/22/20 07:00 09/20/20 06:59 Famotidine (Pepcid) 20 mg BID GT 06/06/20 18:00 09/01/20 17:59 06/23/20 08:43 Heparin Sodium (Porcine) (Heparin 5000 units/ml) 5,000 units EVERY 12 HOURS SUBQ 06/06/20 21:00 07/17/20 08:59 06/23/20 08:53 Insulin Aspart (NovoLOG) Q6HR SUBQ 06/11/20 18:00 09/09/20 17:59 06/23/20 06:40 Insulin Aspart (NovoLOG) 8 units EVERY 6 HOURS SUBQ 06/22/20 12:00 09/20/20 11:59 06/23/20 06:41 Insulin Detemir (Levemir) 28 units EVERY 12 HOURS SUBQ 06/21/20 09:00 09/09/20 20:59 06/23/20 08:52 Meropenem 1 gm/ Sodium Chloride 55 ml @ 110 mls/hr Q12H IVPB 06/21/20 17:00 06/26/20 16:59 06/23/20 06:36 Metoprolol Tartrate (Lopressor) 25 mg Q12HR GT 06/22/20 09:00 09/20/20 08:59 06/23/20 08:44 Midodrine (Pro-Amatine) 2.5 mg TIDPRN PRN GT blood pressure below 100 sbp 06/23/20 15:00 09/11/20 10:14 Pravastatin Sodium (Pravachol) 20 mg BEDTIME GT 06/06/20 21:00 07/02/20 20:59 06/22/20 21:33 Sennosides (Senokot) 8.6 mg DAILY GT 06/07/20 09:00 07/02/20 08:59 06/23/20 08:43 Vancomycin HCl (Vanco pharmacy to dose) 1 ea DAILY PRN MISC Per rx protocol 06/21/20 15:30 07/21/20 15:29 Vancomycin HCl 750 mg/Sodium Chloride 275 ml @ 183.333 mls/hr Q12H IVPB 06/23/20 07:00 06/28/20 06:59 06/23/20 08:43 Blaire Greenwood M.D. Jun 23, 2020 16:04
--- NOTE | 2020-06-23 17:31 | Internal Med Progress Note ---
Subjective Date of Service: Jun 23, 2020 Physician Name JordynTello Attending Physician Cirilo Rome MD Current Medications Medications (Trade) Dose Ordered Sig/Debi Route PRN Reason Start Time Stop Time Status Last Admin Dose Admin Acetaminophen (Tylenol) 650 mg Q6H PRN GT Mild Pain (Pain Scale 1-3) 06/06/20 16:15 07/02/20 16:14 06/22/20 21:34 Amantadine HCl (Symmetrel) 100 mg TWICE A DAY GT 06/06/20 18:00 07/02/20 08:59 06/23/20 17:18 Aspirin (ASA) 81 mg DAILY GT 06/07/20 09:00 07/17/20 08:59 06/23/20 08:43 Dextrose 1,000 ml @ 100 mls/hr Q10H IV 06/17/20 09:00 07/17/20 08:59 06/23/20 15:14 Dextrose (Dextrose 50%) 25 ml Q30M PRN IV Hypoglycemia 06/22/20 07:00 09/20/20 06:59 Dextrose (Dextrose 50%) 50 ml Q30M PRN IV Hypoglycemia 06/22/20 07:00 09/20/20 06:59 Famotidine (Pepcid) 20 mg BID GT 06/06/20 18:00 09/01/20 17:59 06/23/20 17:18 Heparin Sodium (Porcine) (Heparin 5000 units/ml) 5,000 units EVERY 12 HOURS SUBQ 06/06/20 21:00 07/17/20 08:59 06/23/20 08:53 Insulin Aspart (NovoLOG) Q6HR SUBQ 06/11/20 18:00 09/09/20 17:59 06/23/20 06:40 Insulin Aspart (NovoLOG) 8 units EVERY 6 HOURS SUBQ 06/22/20 12:00 09/20/20 11:59 06/23/20 06:41 Insulin Detemir (Levemir) 28 units EVERY 12 HOURS SUBQ 06/21/20 09:00 09/09/20 20:59 06/23/20 08:52 Meropenem 1 gm/ Sodium Chloride 55 ml @ 110 mls/hr Q12H IVPB 06/21/20 17:00 06/26/20 16:59 06/23/20 16:45 Metoprolol Tartrate (Lopressor) 25 mg Q12HR GT 06/22/20 09:00 09/20/20 08:59 06/23/20 08:44 Midodrine (Pro-Amatine) 2.5 mg TIDPRN PRN GT blood pressure below 100 sbp 06/23/20 15:00 09/11/20 10:14 Pravastatin Sodium (Pravachol) 20 mg BEDTIME GT 06/06/20 21:00 07/02/20 20:59 06/22/20 21:33 Sennosides (Senokot) 8.6 mg DAILY GT 06/07/20 09:00 07/02/20 08:59 06/23/20 08:43 Vancomycin HCl (Vanco pharmacy to dose) 1 ea DAILY PRN MISC Per rx protocol 06/21/20 15:30 07/21/20 15:29 Vancomycin HCl 750 mg/Sodium Chloride 275 ml @ 183.333 mls/hr Q12H IVPB 06/23/20 07:00 06/28/20 06:59 06/23/20 08:43 Allergies: Coded Allergies: No Known Allergies (Unverified , 08/27/19) ROS Limited/Unobtainable: Yes Subjective 79 YO M admitted with hyperglycemia and hypernatremia. Now UTI. Cover for Int Med-Dr Rome Objective Last Vital Signs Date Time Temp Pulse Resp B/P (MAP) Pulse Ox O2 Delivery O2 Flow Rate FiO2 06/23/20 16:00 97.9 101 19 126/67 (86) 98 06/23/20 09:00 Room Air Laboratory Tests Test 06/22/20 21:41 06/23/20 05:26 06/23/20 06:26 06/23/20 11:45 POC Whole Blood Glucose Pending Pending 94 MG/DL (74-106) White Blood Count 11.9 K/UL (4.8-10.8) H Red Blood Count 3.78 M/UL (4.70-6.10) L Hemoglobin 11.4 G/DL (14.2-18.0) L Hematocrit 36.3 % (42.0-52.0) L Mean Corpuscular Volume 96 FL (80-99) Mean Corpuscular Hemoglobin 30.1 PG (27.0-31.0) Mean Corpuscular Hemoglobin Concent 31.4 G/DL (32.0-36.0) L Red Cell Distribution Width 15.0 % (11.6-14.8) H Platelet Count 152 K/UL (150-450) Mean Platelet Volume 8.5 FL (6.5-10.1) Neutrophils (%) (Auto) 72.7 % (45.0-75.0) Lymphocytes (%) (Auto) 16.1 % (20.0-45.0) L Monocytes (%) (Auto) 9.8 % (1.0-10.0) Eosinophils (%) (Auto) 1.2 % (0.0-3.0) Basophils (%) (Auto) 0.3 % (0.0-2.0) Sodium Level 142 MMOL/L (136-145) Potassium Level 4.6 MMOL/L (3.5-5.1) Chloride Level 106 MMOL/L (98-107) Carbon Dioxide Level 29 MMOL/L (21-32) Anion Gap 7 mmol/L (5-15) Blood Urea Nitrogen 35 mg/dL (7-18) H Creatinine 1.3 MG/DL (0.55-1.30) Estimat Glomerular Filtration Rate > 60 mL/min (>60) Glucose Level 309 MG/DL (74-106) #H Calcium Level 9.2 MG/DL (8.5-10.1) Vancomycin Level Trough 10.4 ug/mL (5.0-12.0) Microbiology Date/Time Source Procedure Growth Status 06/21/20 21:30 Blood Blood Culture - Preliminary Resulted 06/21/20 21:15 Blood Blood Culture - Preliminary Resulted 06/21/20 16:10 Nasopharynx SARS-CoV-2 RdRp Gene Assay - Final Complete 06/21/20 16:10 Urine,Clean Catch Urine Culture - Preliminary Gram Negative Bacillus 1 Resulted Intake and Output 06/22/20 06/23/20 19:00 07:00 Intake Total 1910 ml 100 ml Output Total 1200 ml Balance 710 ml 100 ml Free Water 150 ml IV Total 1100 ml 100 ml Tube Feeding 660 ml Output Urine Total 1200 ml # Voids 2 # Bowel Movements 1 1 Objective PHYSICAL EXAMINATION: GENERAL: The patient is a well-developed, well-nourished, thin-appearing, male, in no apparent distress. HEENT: Eyes, pupils equal and responsive to light and accommodation. Extraocular movements are intact. NECK: Supple without lymphadenopathy. CHEST: Lungs are clear to auscultation bilaterally without wheezes or rales. CARDIOVASCULAR: Slightly tachycardic, regular rhythm. S1, S2 are normal without murmurs, rubs, or gallops. ABDOMEN: Soft, nontender, and nondistended. Positive bowel sounds. No evidence of hepatosplenomegaly. Currently, no rebound or guarding noted. EXTREMITIES: Negative for clubbing, cyanosis, or edema. RECTAL: Not performed. GENITAL: Not performed. NEUROLOGIC: Cranial nerves II through XII are grossly intact without focal deficits. Assessment/Plan Assessment/Plan ASSESSMENT: This is a 79-year-old male with: 1. Hyperglycemia. 2. Hypernatremia. 3. Urinary tract infection=MDR proteus. 4. Diabetes type 2. 5. Hypertension. 6. Hypercholesterolemia. 7. Dysphagia. 8. Parkinson disease. 9. Ulcerative proctitis. 10. Protein-calorie malnutrition. 11. History of sacral decubitus ulcer stage IV. 12. Benign prostatic hypertrophy. 13. Gastroesophageal reflux disease. 14. Metabolic encephalopathy. 15. History of left hip fracture. TREATMENT: 1. Hyperglycemia/diabetes. The patient has been placed on a protocol using NovoLog sliding scale. The patient's blood sugars have been running in 300s. Hyperglycemia may be secondary to urinary tract infection. 2. Urinary tract infection. Urine culture =MDR proteus. ABX= meropenem and vancomycin results.ID=Dr Oliva 3. Hypertension. Continue amlodipine as above. 4. Hypercholesterolemia. Continue atorvastatin as above. 5. Dysphagia. The patient is status post PEG placement. 6. Parkinson disease. Continue amantadine as above. 7. Ulcerative proctitis. 8. Protein-calorie malnutrition. 9. Sacral decubitus ulcer stage IV. 10. Benign prostatic hypertrophy. Continue tamsulosin as above. 11. Gastroesophageal reflux disease. 12. Metabolic encephalopathy. 13. History of left hip fracture. Tello Cobb MD Jun 23, 2020 17:31
--- NOTE | 2020-06-23 19:26 | NUR ---
NURSE HAND-OFF REPORT: Important Events on Shift:[BM, blood cultures results] Patient Status: [FULL CODE] Diet: [glucerna 1.5] Pending Orders: [] Pending Results/Labs:[] Pending MD notification:[] Latest Vital Signs: Temperature 97.9 , Pulse 112 , B/P 126 /67 , Respiratory Rate 19 , O2 SAT 98 , Room Air, O2 Flow Rate 3.0 . Vital Sign Comment: [] EKG Rhythm: Sinus Tachycardia Rhythm change?: N Notified?: N -MD Mike PERKINS Response: Message left await call Latest Lane Fall Score: 55 Fall Risk: High Risk Safety Measures: Call light Within Reach, Bed Alarm Zone 1, Side Rails Side Rails x2, Bed position Low and Locked. Fall Precautions: Yellow Socks Yellow Gown Door Sign Report given to [Harjinder RN].
--- NOTE | 2020-06-23 19:30 | NUR ---
NURSE NOTES: Important Events on Shift: Received report from Madan Ordoñez RN. Pt in stable condition, no signs or symptoms of distress or pain noted. [facility] Patient Status: Stable Diet: Glucerna 1.5 @ 60ml/hr Pending Orders: AM: 2D echo, Pending Results/Labs: CMP, CBC, Vanco trough Pending MD notification: None Latest Vital Signs: Temperature 97.9 , Pulse 110 , B/P 129 /66 , Respiratory Rate 19 , O2 SAT 98 , Room Air, O2 Flow Rate 3.0 . Vital Sign Comment: Stable EKG Rhythm: Sinus Tachycardia Rhythm change?: N Notified?: N -MD Mike PERKINS Response: Message left await call Latest Lane Fall Score: 55 Fall Risk: High Risk Safety Measures: Call light Within Reach, Bed Alarm Zone 1, Side Rails Side Rails x3, Bed position Low and Locked. Fall Precautions: Yes Yellow Socks YES Yellow Gown YES Door Sign YES
[2020-06-23 20:00] VITALS: BP 122/66
[2020-06-24] VITALS: BP 120/58
[2020-06-24 04:00] VITALS: BP 120/74
[2020-06-24] MEDS: Vancomycin 750mg/NS 275ml IVPB SCH ×2 (05:46)
[2020-06-24] MEDS: Meropenem 1 GM in NS 55 ML IVPB SCH (05:46)
[2020-06-24] MEDS: NovoLOG Insulin Flexpen SUBQ SCH ×6 (06:14→17:56)
--- NOTE | 2020-06-24 06:29 | General Progress Note ---
Assessment/Plan Problem List: (1) Hypernatremia ICD Codes: E87.0 - Hyperosmolality and hypernatremia SNOMED: 879790087 (2) Feeding by G-tube ICD Codes: Z93.1 - Gastrostomy status SNOMED: 071821891, 267796869, 025432557 (3) Diabetes mellitus ICD Codes: E11.9 - Type 2 diabetes mellitus without complications SNOMED: 90240816 (4) History of CVA (cerebrovascular accident) ICD Codes: Z86.73 - Personal history of transient ischemic attack (TIA), and cerebral infarction without residual deficits SNOMED: 572703987 (5) Parkinson disease ICD Codes: G20 - Parkinson's disease SNOMED: 53308682 Assessment/Plan: continue Levemir 28 units bid DC Novolog 8 units every 6 hours continue Novolog sliding scale high dose every [address] Ant Chase will be covering this weekend Subjective ROS Limited/Unobtainable: Yes Allergies: Coded Allergies: No Known Allergies (Unverified , 08/27/19) Subjective events noted - interval notes reviewed glucose values improved Item Value Date Time Bedside Blood Glucose 166 mg/dl H 06/24/20 0614 Bedside Blood Glucose 118 mg/dl 06/24/20 0000 Bedside Blood Glucose 170 mg/dl H 06/23/20 2204 Bedside Blood Glucose 212 mg/dl H 06/23/20 1805 Bedside Blood Glucose 94 mg/dl 06/23/20 1200 Bedside Blood Glucose 191 mg/dl H 06/23/20 0852 Bedside Blood Glucose 271 mg/dl H 06/23/20 0641 Bedside Blood Glucose 267 mg/dl H 06/23/20 0105 Objective Last 24 Hour Vital Signs Date Time Temp Pulse Resp B/P (MAP) Pulse Ox O2 Delivery O2 Flow Rate FiO2 06/24/20 04:00 98.2 107 19 120/74 (89) 99 06/24/20 04:00 111 06/24/20 00:00 107 06/24/20 00:00 99.6 100 19 120/58 (78) 99 06/23/20 21:49 110 129/66 06/23/20 21:00 Room Air 06/23/20 20:00 97.5 111 19 122/66 (84) 99 06/23/20 20:00 124 06/23/20 16:00 112 06/23/20 16:00 97.9 101 19 126/67 (86) 98 06/23/20 12:00 87 06/23/20 12:00 98.1 101 20 118/65 (82) 95 06/23/20 09:00 Room Air 06/23/20 08:44 107 113/70 06/23/20 08:00 98.6 107 19 113/70 (84) 96 06/23/20 08:00 121 Intake and Output 06/23/20 06/24/20 19:00 07:00 Intake Total 1880 ml Output Total 700 ml Balance 1180 ml Free Water 300 ml IV Total 1100 ml Tube Feeding 480 ml Output Urine Total 700 ml # Bowel Movements 1 Laboratory Tests 06/23/20 11:45: POC Whole Blood Glucose 94 06/23/20 21:52: POC Whole Blood Glucose 170H 06/24/20 03:00: POC Whole Blood Glucose 118H Height (Feet): 5 Height (Inches): 5.00 Weight (Pounds): 123 General Appearance: no apparent distress Neck: normal alignment Respiratory/Chest: lungs clear Abdomen: normal bowel sounds Pelvis: normal external exam Objective Current Medications Medications (Trade) Dose Ordered Sig/Debi Route PRN Reason Start Time Stop Time Status Last Admin Dose Admin Acetaminophen (Tylenol) 650 mg Q6H PRN GT Mild Pain (Pain Scale 1-3) 06/06/20 16:15 07/02/20 16:14 06/22/20 21:34 Amantadine HCl (Symmetrel) 100 mg TWICE A DAY GT 06/06/20 18:00 07/02/20 08:59 06/23/20 17:18 Aspirin (ASA) 81 mg DAILY GT 06/07/20 09:00 07/17/20 08:59 06/23/20 08:43 Dextrose 1,000 ml @ 100 mls/hr Q10H IV 06/17/20 09:00 07/17/20 08:59 06/24/20 02:50 Dextrose (Dextrose 50%) 25 ml Q30M PRN IV Hypoglycemia 06/22/20 07:00 09/20/20 06:59 Dextrose (Dextrose 50%) 50 ml Q30M PRN IV Hypoglycemia 06/22/20 07:00 09/20/20 06:59 Famotidine (Pepcid) 20 mg BID GT 06/06/20 18:00 09/01/20 17:59 06/23/20 17:18 Heparin Sodium (Porcine) (Heparin 5000 units/ml) 5,000 units EVERY 12 HOURS SUBQ 06/06/20 21:00 07/17/20 08:59 06/23/20 08:53 Insulin Aspart (NovoLOG) Q6HR SUBQ 06/11/20 18:00 09/09/20 17:59 06/24/20 06:14 Insulin Aspart (NovoLOG) 8 units EVERY 6 HOURS SUBQ 06/22/20 12:00 09/20/20 11:59 06/24/20 06:14 Insulin Detemir (Levemir) 28 units EVERY 12 HOURS SUBQ 06/21/20 09:00 09/09/20 20:59 06/23/20 22:04 Meropenem 1 gm/ Sodium Chloride 55 ml @ 110 mls/hr Q12H IVPB 06/21/20 17:00 06/26/20 16:59 06/24/20 05:46 Metoprolol Tartrate (Lopressor) 25 mg Q12HR GT 06/22/20 09:00 09/20/20 08:59 06/23/20 21:49 Midodrine (Pro-Amatine) 2.5 mg TIDPRN PRN GT blood pressure below 100 sbp 06/23/20 15:00 09/11/20 10:14 Pravastatin Sodium (Pravachol) 20 mg BEDTIME GT 06/06/20 21:00 07/02/20 20:59 06/23/20 21:48 Sennosides (Senokot) 8.6 mg DAILY GT 06/07/20 09:00 07/02/20 08:59 06/23/20 08:43 Vancomycin HCl (Vanco pharmacy to dose) 1 ea DAILY PRN MISC Per rx protocol 06/21/20 15:30 07/21/20 15:29 Vancomycin HCl 750 mg/Sodium Chloride 275 ml @ 183.333 mls/hr Q12H IVPB 06/23/20 07:00 06/28/20 06:59 06/24/20 05:46 Gregory Pastrana MD Jun 24, 2020 06:29
--- NOTE | 2020-06-24 07:48 | NUR ---
NURSE HAND-OFF REPORT: Important Events on Shift: None Patient Status: Stable Diet: Glucerna 1.5 @ 60ml/hr Pending Orders: none Pending Results/Labs: Vanco trough Pending MD notification: none Latest Vital Signs: Temperature 98.2 , Pulse 107 , B/P 120 /74 , Respiratory Rate 19 , O2 SAT 99 , Room Air, O2 Flow Rate 3.0 . Vital Sign Comment: stable EKG Rhythm: Sinus Tachycardia Rhythm change?: N Notified?: N -MD Mike PERKINS Response: Message left await call Latest Lane Fall Score: 55 Fall Risk: High Risk Safety Measures: Call light Within Reach, Bed Alarm Zone 1, Side Rails Side Rails x3, Bed position Low and Locked. Fall Precautions: YES Yellow Socks YES Yellow Gown YES Door Sign YES Report given to ARUNA Lynne RN
--- NOTE | 2020-06-24 07:58 | NUR ---
NURSE NOTES: Received report from Laurie Grande RN. Patient sitting HOB at 45 degrees, sleeping, on room air, Glucerna 1.5@60 cc/hour, D5W@100 running into left wrist 22 guage, bed in lowest position, wheels locked, call light within reach, in no apparent distress.
[2020-06-24 08:00] VITALS: BP 139/76
[2020-06-24] MEDS: Amantadine 100mg cap GT SCH ×2 (08:52→17:15)
[2020-06-24] MEDS: Aspirin Baby 81mg GT SCH (08:53)
[2020-06-24] MEDS: Sennosides 8.6mg tab GT SCH (08:53)
[2020-06-24] MEDS: Levemir Flexpen SUBQ SCH ×2 (08:55→20:42)
[2020-06-24] MEDS: Heparin 5000 units/ml inj SUBQ SCH ×2 (08:55→20:34)
[2020-06-24 09:10] LABS: BASOPHILS % (AUTO) 0.7 % (0.0-2.0); EOSINOPHILS % (AUTO) 1.2 % (0.0-3.0); HEMATOCRIT 33.7 % (42.0-52.0); HEMOGLOBIN 10.5 G/DL (14.2-18.0); LYMPHOCYTES % (AUTO) 25.4 % (20.0-45.0); MEAN CORPUSCULAR VOLUME 94 FL (80-99); MONOCYTES % (AUTO) 11.4 % (1.0-10.0); NEUTROPHILS % (AUTO) 61.3 % (45.0-75.0); PLATELET COUNT 156 K/UL (150-450); RED BLOOD COUNT 3.57 M/UL (4.70-6.10); RED CELL DISTRIBUTION WIDTH 15.1 % (11.6-14.8); WHITE BLOOD COUNT 8.7 K/UL (4.8-10.8)
[2020-06-24 09:18] LABS: ALANINE AMINOTRANSFERASE 35 U/L (12-78); ALBUMIN 1.9 G/DL (3.4-5.0); ALBUMIN/GLOBULIN RATIO 0.3 (1.0-2.7); ALKALINE PHOSPHATASE 221 U/L (46-116); ANION GAP 8 mmol/L (5-15); ASPARTATE AMINO TRANSFERASE 22 U/L (15-37); BILIRUBIN,TOTAL 0.3 MG/DL (0.2-1.0); BLOOD UREA NITROGEN 27 mg/dL (7-18); CALCIUM 9.1 MG/DL (8.5-10.1); CARBON DIOXIDE 26 MMOL/L (21-32); CHLORIDE 103 MMOL/L (98-107); CREATININE 1.1 MG/DL (0.55-1.30); POTASSIUM 4.4 MMOL/L (3.5-5.1); SODIUM 137 MMOL/L (136-145)
[2020-06-24] MEDS ORDERED: 1/2 NS 1000ml IV ONE (11:04)
[2020-06-24 12:00] VITALS: BP 130/61
--- NOTE | 2020-06-24 12:04 | NUR ---
RD ASSESSMENT & RECOMMENDATIONS SEE CARE ACTIVITY FOR COMPLETE ASSESSMENT DAILY ESTIMATED NEEDS: Needs based on Sepsis, DM/ 54kg 30-40 kcals/kg 7773-1053 total kcals 1.25-2 g protein/kg 68-108 g total protein 25-35ml/kcal mL/kg 8318-1651 total fluid mLs NUTRITION DIAGNOSIS: * Swallowing difficulty R/T dysphagia, as evidenced by Pt is GT dep. CURRENT DIET:NPO CURRENT TF:Glucerna 1.5 @ 60ml/hr x20 hrs ENTERAL NUTRITION RECOMMENDATIONS: Glucerna 1.5 @ 50ml/hr x 24 hrs to provide 1200ml, 1800kcal, 99g prot, 911ml free water * For TF to run 24 hrs continuously, rec new goal rate of 50ml/hr x 24 hrs * HOB over 30 degrees * Without IVF, water flush 150ml q 4hrs * TF at goal meets 100% est needs. ADDITIONAL RECOMMENDATIONS: * Calibrated bedscale wt for accurate CBW * Monitor lytes daily w/ TF, replete as needed * Rec DC D5 IVF and increase H20 flush instead for BG control -> Na now wnl, BGs elevated * Wound healing: add DOMENICA BID * Watch K w/ current TF, need to change TF .
--- NOTE | 2020-06-24 12:54 | Nephrology Progress Note ---
Assessment/Plan Problem List: (1) Hypernatremia (2) Sepsis (3) History of CVA (cerebrovascular accident) (4) Parkinson disease (5) Feeding by G-tube (6) Dehydration Assessment KELLY, resolving, serum creatinine of 1.9 now down to 1.2 Hypernatremia, dehydration, free water deficit Sepsis Diabetes mellitus [id number] GT feeding Severe protein calorie malnutrition History of CVA History of hypertension Parkinson's disease Plan June 24: Lab reviewed. Renal parameters stable. Will discontinue IV fluid. Continue her consultants. June 23: Labs reviewed. Medication list reviewed. Renal parameters stable. Blood sugar needs better control. Defer to PMD and barrel raiser. June 22: Clinically stable. Labs reviewed. Blood sugar elevated. Renal parameters stable. Continue blood sugar management per barrel raiser June 21: Patient is febrile today. Abnormal electrolytes addressed. Stable from renal standpoint of view. June 20: No chemistry panel done today. Stable from renal standpoint. Will order chemistry panel tomorrow June 19: Labs reviewed. Phosphorus supplement given. Stable from renal standpoint of view. June 18: Lab reviewed. Serum sodium lower. Creatinine 1.1. Continue current management. June 17: Lab reviewed. Sodium 160. Creatinine 1.3. Calcium lower at 9. Will continue D5W. June 16: Labs reviewed. Renal parameters stable. Serum calcium lowering. Serum sodium lowering. Serum creatinine 1.3. Another 1 L of D5W ordered. June 15: Lab reviewed. Serum sodium high. 1 L D5W given. Serum creatinine 1.4. Pamidronate given yesterday. Continue to monitor serum calcium. June 14: Lab reviewed. Serum calcium high corrected for low serum albumin. 60 mg pamidronate ID given. Continue to monitor renal parameters calcium and phosphorus. June 13: Lab reviewed. Medication list reviewed. Renal parameters stable. Will watch serum calcium and serum sodium. Chemistry panel tomorrow. June 12: Labs reviewed. Stable from renal standpoint of view. June 11: Labs reviewed. Stable renal parameters. June 10: Lab reviewed. Serum potassium normalized. Will give 1 L of D5W for high serum sodium. Continue per consultants. June 09: Labs reviewed. Discussed with RN. Serum potassium elevated. Suspect hemolysis. Will repeat serum potassium. DC all potassium supplements. June 08: Serum sodium higher. Will give 1 L of D5W. Renal parameters stable. Continue to monitor electrolytes. Continue per consultants. June 07: 1 bolus of D5W. Renal parameters stable. Serum sodium slightly high. Stable from renal standpoint of view. June 06: We will again discontinue the IV ordered. Stable from renal standpoint of view. Will start midodrine for low blood pressure. June 05: DC IV fluid. Potassium supplement given. Stable from renal standpoint to view. June 04: Potassium and magnesium supplement IV given, stable from renal standpoint of view. IV fluid D5W Monitor electrolytes Monitor renal parameters Hold blood pressure medication since blood pressure low Per orders, per consultants Subjective ROS Limited/Unobtainable: No Constitutional: Reports: malaise Objective Objective Last 24 Hour Vital Signs Date Time Temp Pulse Resp B/P (MAP) Pulse Ox O2 Delivery O2 Flow Rate FiO2 06/24/20 09:00 Room Air 06/24/20 08:53 113 139/76 06/24/20 08:00 98.7 113 21 139/76 (97) 98 06/24/20 08:00 113 06/24/20 04:00 98.2 107 19 120/74 (89) 99 06/24/20 04:00 111 06/24/20 00:00 107 06/24/20 00:00 99.6 100 19 120/58 (78) 99 06/23/20 21:49 110 129/66 06/23/20 21:00 Room Air 06/23/20 20:00 97.5 111 19 122/66 (84) 99 06/23/20 20:00 124 06/23/20 16:00 112 06/23/20 16:00 97.9 101 19 126/67 (86) 98 Intake and Output 06/23/20 06/24/20 19:00 07:00 Intake Total 1880 ml 60 ml Output Total 700 ml 800 ml Balance 1180 ml -740 ml Free Water 300 ml IV Total 1100 ml Tube Feeding 480 ml 60 ml Output Urine Total 700 ml 800 ml # Bowel Movements 1 1 Laboratory Tests 06/23/20 17:22: POC Whole Blood Glucose [Pending] 06/23/20 21:52: POC Whole Blood Glucose 170H 06/24/20 03:00: POC Whole Blood Glucose 118H 06/24/20 06:09: POC Whole Blood Glucose [Pending] 06/24/20 08:30: White Blood Count 8.7, Red Blood Count 3.57L, Hemoglobin 10.5L, Hematocrit 33.7L , Mean Corpuscular Volume 94, Mean Corpuscular Hemoglobin 29.5, Mean Corpuscular Hemoglobin Concent 31.3L, Red Cell Distribution Width 15.1H, Platelet Count 156, Mean Platelet Volume 9.9, Neutrophils (%) (Auto) 61.3, Lymphocytes (%) (Auto) 25.4, Monocytes (%) (Auto) 11.4H, Eosinophils (%) (Auto) 1.2, Basophils (%) (Auto) 0.7, Sodium Level 137, Potassium Level 4.4, Chloride Level 103, Carbon Dioxide Level 26, Anion Gap 8, Blood Urea Nitrogen 27H, Creatinine 1.1, Estimat Glomerular Filtration Rate > 60, Glucose Level 223H, Calcium Level 9.1, Total Bilirubin 0.3, Aspartate Amino Transf (AST/SGOT) 22, Alanine Aminotransferase (ALT/SGPT) 35, Alkaline Phosphatase 221H, Total Protein 7.8, Albumin 1.9L, Globulin 5.9, Albumin/Globulin Ratio 0.3L Height (Feet): 5 Height (Inches): 5.00 Weight (Pounds): 123 General Appearance: no apparent distress Cardiovascular: tachycardia Respiratory/Chest: decreased breath sounds Abdomen: distended Objective No change Eddie Nelson MD Jun 24, 2020 12:54
--- NOTE | 2020-06-24 12:55 | Pulmonology Progress Note ---
Subjective ROS Limited/Unobtainable: No Constitutional: Reports: no symptoms, anorexia HEENT: Repors: no symptoms Respiratory: Reports: no symptoms Cardiovascular: Reports: no symptoms Allergies: Coded Allergies: No Known Allergies (Unverified , 08/27/19) All Systems: reviewed and negative except above Objective Last 24 Hour Vital Signs Date Time Temp Pulse Resp B/P (MAP) Pulse Ox O2 Delivery O2 Flow Rate FiO2 06/24/20 09:00 Room Air 06/24/20 08:53 113 139/76 06/24/20 08:00 98.7 113 21 139/76 (97) 98 06/24/20 08:00 113 06/24/20 04:00 98.2 107 19 120/74 (89) 99 06/24/20 04:00 111 06/24/20 00:00 107 06/24/20 00:00 99.6 100 19 120/58 (78) 99 06/23/20 21:49 110 129/66 06/23/20 21:00 Room Air 06/23/20 20:00 97.5 111 19 122/66 (84) 99 06/23/20 20:00 124 06/23/20 16:00 112 06/23/20 16:00 97.9 101 19 126/67 (86) 98 Intake and Output 06/23/20 06/24/20 19:00 07:00 Intake Total 1880 ml 60 ml Output Total 700 ml 800 ml Balance 1180 ml -740 ml Free Water 300 ml IV Total 1100 ml Tube Feeding 480 ml 60 ml Output Urine Total 700 ml 800 ml # Bowel Movements 1 1 General Appearance: cachetic HEENT: normocephalic, atraumatic Respiratory: chest wall non-tender, normal breath sounds Cardiovascular: normal peripheral pulses, normal rate Abdomen: normal bowel sounds Genitourinary: normal external genitalia Extremities: no clubbing Skin: no lesions Neurologic: document improvement specialist II-XII grossly normal Lymphatic: no neck adenopathy Microbiology Date/Time Source Procedure Growth Status 06/21/20 21:30 Blood Blood Culture - Preliminary Staphylococcus Aureus Resulted 06/21/20 21:15 Blood Blood Culture - Preliminary Staphylococcus Aureus Resulted 06/21/20 16:10 Nasopharynx SARS-CoV-2 RdRp Gene Assay - Final Complete 06/21/20 16:10 Urine,Clean Catch Urine Culture - Preliminary Proteus Mirabilis Esbl Resulted Laboratory Tests 06/23/20 17:22: POC Whole Blood Glucose [Pending] 06/23/20 21:52: POC Whole Blood Glucose 170H 06/24/20 03:00: POC Whole Blood Glucose 118H 06/24/20 06:09: POC Whole Blood Glucose [Pending] 06/24/20 08:30: White Blood Count 8.7, Red Blood Count 3.57L, Hemoglobin 10.5L, Hematocrit 33.7L , Mean Corpuscular Volume 94, Mean Corpuscular Hemoglobin 29.5, Mean Corpuscular Hemoglobin Concent 31.3L, Red Cell Distribution Width 15.1H, Platelet Count 156, Mean Platelet Volume 9.9, Neutrophils (%) (Auto) 61.3, Lymphocytes (%) (Auto) 25.4, Monocytes (%) (Auto) 11.4H, Eosinophils (%) (Auto) 1.2, Basophils (%) (Auto) 0.7, Sodium Level 137, Potassium Level 4.4, Chloride Level 103, Carbon Dioxide Level 26, Anion Gap 8, Blood Urea Nitrogen 27H, Creatinine 1.1, Estimat Glomerular Filtration Rate > 60, Glucose Level 223H, Calcium Level 9.1, Total Bilirubin 0.3, Aspartate Amino Transf (AST/SGOT) 22, Alanine Aminotransferase (ALT/SGPT) 35, Alkaline Phosphatase 221H, Total Protein 7.8, Albumin 1.9L, Globulin 5.9, Albumin/Globulin Ratio 0.3L Current Medications Medications (Trade) Dose Ordered Sig/Debi Route PRN Reason Start Time Stop Time Status Last Admin Dose Admin Acetaminophen (Tylenol) 650 mg Q6H PRN GT Mild Pain (Pain Scale 1-3) 06/06/20 16:15 07/02/20 16:14 06/22/20 21:34 Amantadine HCl (Symmetrel) 100 mg TWICE A DAY GT 06/06/20 18:00 07/02/20 08:59 06/24/20 08:52 Aspirin (ASA) 81 mg DAILY GT 06/07/20 09:00 07/17/20 08:59 06/24/20 08:53 Dextrose (Dextrose 50%) 25 ml Q30M PRN IV Hypoglycemia 06/22/20 07:00 09/20/20 06:59 Dextrose (Dextrose 50%) 50 ml Q30M PRN IV Hypoglycemia 06/22/20 07:00 09/20/20 06:59 Famotidine (Pepcid) 20 mg BID GT 06/06/20 18:00 09/01/20 17:59 06/24/20 08:52 Heparin Sodium (Porcine) (Heparin 5000 units/ml) 5,000 units EVERY 12 HOURS SUBQ 06/06/20 21:00 07/17/20 08:59 06/24/20 08:55 Insulin Aspart (NovoLOG) Q6HR SUBQ 06/11/20 18:00 09/09/20 17:59 06/24/20 06:14 Insulin Detemir (Levemir) 28 units EVERY 12 HOURS SUBQ 06/21/20 09:00 09/09/20 20:59 06/24/20 08:55 Meropenem 1 gm/ Sodium Chloride 55 ml @ 110 mls/hr Q12H IVPB 06/21/20 17:00 06/26/20 16:59 06/24/20 05:46 Metoprolol Tartrate (Lopressor) 25 mg Q12HR GT 06/22/20 09:00 09/20/20 08:59 06/24/20 08:53 Midodrine (Pro-Amatine) 2.5 mg TIDPRN PRN GT blood pressure below 100 sbp 06/23/20 15:00 09/11/20 10:14 Pravastatin Sodium (Pravachol) 20 mg BEDTIME GT 06/06/20 21:00 07/02/20 20:59 06/23/20 21:48 Sennosides (Senokot) 8.6 mg DAILY GT 06/07/20 09:00 07/02/20 08:59 06/24/20 08:53 Vancomycin HCl (Vanco pharmacy to dose) 1 ea DAILY PRN MISC Per rx protocol 06/21/20 15:30 07/21/20 15:29 Vancomycin HCl 750 mg/Sodium Chloride 275 ml @ 183.333 mls/hr Q12H IVPB 06/23/20 07:00 06/28/20 06:59 06/24/20 05:46 Assessment/Plan Problems: (1) Staphylococcus aureus bacteremia (2) Sepsis (3) Multiple drug resistant organism (MDRO) culture positive (4) Hypernatremia (5) History of CVA (cerebrovascular accident) (6) History of hypertension (7) Parkinson disease (8) Severe protein-calorie malnutrition (9) Feeding by G-tube (10) Diabetes mellitus Assessment/Plan less tachy transferred to telemetry because of tachycardia repeat all cultures , Urine has proteus,,MDR COVID Negative sliding scale all reviewed, symptomatic treatment dvt prophylaxis Latanya Mcekon MD Jun 24, 2020 12:55
--- NOTE | 2020-06-24 13:28 | NUR ---
*-*DISCHARGE PLANNING*-* PATIENT HAS BEEN REFERRED BACK TO: [facility] T:[phone] F:[phone] Addendum: 06/24/20 at 1335 by JAZIEL SOLORZANO LVN NO DC ORDER ~BARRIERS AT THIS TIME URINE CX PENDING
--- NOTE | 2020-06-24 14:30 | Surgery Progress Note ---
Surgery Progress Note Subjective Symptoms: improved, pain absent, tolerating diet, passing flatus Objective Last 24 Hour Vital Signs Date Time Temp Pulse Resp B/P (MAP) Pulse Ox O2 Delivery O2 Flow Rate FiO2 06/24/20 12:00 104 06/24/20 12:00 97.9 102 21 130/61 (84) 96 06/24/20 09:00 Room Air 06/24/20 08:53 113 139/76 06/24/20 08:00 98.7 113 21 139/76 (97) 98 06/24/20 08:00 113 06/24/20 04:00 98.2 107 19 120/74 (89) 99 06/24/20 04:00 111 06/24/20 00:00 107 06/24/20 00:00 99.6 100 19 120/58 (78) 99 06/23/20 21:49 110 129/66 06/23/20 21:00 Room Air 06/23/20 20:00 97.5 111 19 122/66 (84) 99 06/23/20 20:00 124 06/23/20 16:00 112 06/23/20 16:00 97.9 101 19 126/67 (86) 98 I&O Intake and Output 06/23/20 06/24/20 19:00 07:00 Intake Total 1880 ml 60 ml Output Total 700 ml 800 ml Balance 1180 ml -740 ml Free Water 300 ml IV Total 1100 ml Tube Feeding 480 ml 60 ml Output Urine Total 700 ml 800 ml # Bowel Movements 1 1 Dressing: dry Wound: clean Cardiovascular: RSR Respiratory: clear Abdomen: soft, non-tender, present bowel sounds Extremities: no edema, no tenderness, no cyanosis Laboratory Tests Test 06/23/20 17:22 06/23/20 21:52 06/24/20 03:00 06/24/20 06:09 POC Whole Blood Glucose Pending 170 MG/DL (74-106) H 118 MG/DL (74-106) H Pending Test 06/24/20 08:30 White Blood Count 8.7 K/UL (4.8-10.8) Red Blood Count 3.57 M/UL (4.70-6.10) L Hemoglobin 10.5 G/DL (14.2-18.0) L Hematocrit 33.7 % (42.0-52.0) L Mean Corpuscular Volume 94 FL (80-99) Mean Corpuscular Hemoglobin 29.5 PG (27.0-31.0) Mean Corpuscular Hemoglobin Concent 31.3 G/DL (32.0-36.0) L Red Cell Distribution Width 15.1 % (11.6-14.8) H Platelet Count 156 K/UL (150-450) Mean Platelet Volume 9.9 FL (6.5-10.1) Neutrophils (%) (Auto) 61.3 % (45.0-75.0) Lymphocytes (%) (Auto) 25.4 % (20.0-45.0) Monocytes (%) (Auto) 11.4 % (1.0-10.0) H Eosinophils (%) (Auto) 1.2 % (0.0-3.0) Basophils (%) (Auto) 0.7 % (0.0-2.0) Sodium Level 137 MMOL/L (136-145) Potassium Level 4.4 MMOL/L (3.5-5.1) Chloride Level 103 MMOL/L (98-107) Carbon Dioxide Level 26 MMOL/L (21-32) Anion Gap 8 mmol/L (5-15) Blood Urea Nitrogen 27 mg/dL (7-18) H Creatinine 1.1 MG/DL (0.55-1.30) Estimat Glomerular Filtration Rate > 60 mL/min (>60) Glucose Level 223 MG/DL (74-106) H Calcium Level 9.1 MG/DL (8.5-10.1) Total Bilirubin 0.3 MG/DL (0.2-1.0) Aspartate Amino Transf (AST/SGOT) 22 U/L (15-37) Alanine Aminotransferase (ALT/SGPT) 35 U/L (12-78) Alkaline Phosphatase 221 U/L (46-116) H Total Protein 7.8 G/DL (6.4-8.2) Albumin 1.9 G/DL (3.4-5.0) L Globulin 5.9 g/dL Albumin/Globulin Ratio 0.3 (1.0-2.7) L Plan Problems: (1) Hypernatremia (2) Dehydration (3) Hip fracture, left (4) Diabetes mellitus (5) History of hypertension (6) Severe protein-calorie malnutrition Assessment & Plan: DAILY ESTIMATED NEEDS: Needs based on Sepsis, DM/ 54kg 30-40 kcals/kg 8718-7584 total kcals 1.25-2 g protein/kg 68-108 g total protein 25-35ml/kcal mL/kg 5274-6503 total fluid mLs NUTRITION DIAGNOSIS: * Swallowing difficulty R/T dysphagia, as evidenced by Pt is GT dep. (CURRENT TF: Glucerna 1.5 @ 30ml/hr x 24 hrs) ENTERAL NUTRITION RECOMMENDATIONS: Glucerna 1.5 @ 60ml/hr x 20 hrs to provide 1200ml, 1800kcal, 99g prot, 911ml free water, 160g carbs * Rec to INCREASE TF GOAL to 60ml/hr for 20 hrs * HOB over 30 degrees, increased water flushes * TF at goal meets 100% est needs. -------- ADDITIONAL RECOMMENDATIONS: * Calibrated bedscale wt for accurate CBW * Monitor lytes daily w/ TF, replete as needed * Pt may require increase in insulin regimen for improved BG W/ continuous TF infusion * Wound healing: DOMENICA BID, F/up w/ WC eval . (7) Acute encephalopathy (8) Pressure Ulcer Of Sacral Region, Unstageable Assessment & Plan: Pt presented on admission with purple and indurated area at Sacrococcygeal at previously compromised site(L)7cm x (W)3cm.Surrounding Hyperpigmentation at Sacrum. Non-Blanching erythema without fluctuance R heel. Non-Blanching erythema with delineated margins L heel (L)4.5cm x (W)5.5cm. L Heel is boggy . Tx.Plan: Apply Moisture Barrier Paste to Sacrum. Cover with Optifoam drsgs. Change every 3 days and prn. Apply Cavilon Skin Barrier to R and L trochanter. Cover each site with Optifoam drsgs. Change every 7 days and prn. Apply Cavilon Skin Barrier to each heel and malleoli. Cover each site with Optifoam drsgs. Change every 7 days and prn. Reposition at least every 2hours or as tolerated. Off-load heels with pillow. improving cont current care tube site okay (9) Feeding by G-tube (10) Abdominal distention (11) Multiple drug resistant organism (MDRO) culture positive (12) Sepsis (13) History of CVA (cerebrovascular accident) (14) Parkinson disease James Breen Jun 24, 2020 14:30
--- NOTE | 2020-06-24 15:14 | NUR ---
CASE MANAGEMENT:REVIEW 06/24/20 SI; SEPSIS. MDR PROTEUS UTI. MET ENCEPHALOPATHY. SINUS TACH 99.6 107 19 120/58 99% ON RA BUN 27 BG 223 [id number] ALB 1.9 URINE CX ~IN PROCESS IS;VANCOMYCIN IV Q12 MEROPENEM IV Q12 INSULIN LEVEMIR SUBQ Q12 LOPRESSOR GT Q12 INSULIN NOVOLOG SUBQ Q6 HEPARIN SUBQ Q12 TRANSFERRED FROM [place] TO TELEMETRY ON 06/21/20 TELE STATUS DC;FROM [facility] PLAN: 2D ECHO CONT IV ABX DC IVF Addendum: 06/24/20 at 1521 by JAZIEL SOLORZANO LVN MONITOR FRO FEVERS URINE + BLOOD CX IN PROCESS
[2020-06-24 16:00] VITALS: BP 136/59
--- NOTE | 2020-06-24 16:20 | Infectious Diseases Prog Note ---
Assessment/Plan 79yo M with: COVID19 neg (06/01 rapid COVID PCR neg) Sespsis, recurrent S. aureus bacteremia- r/o MRSA- ?source- r/o endocarditis UTI, recurrent -06/23 Bcx p 2d echo p -06/21 rapid COVID PCR neg u/a wbc 5-10,nit neg, leuk +3; ucx >100k ESBL P.mirabilis Bx 12/15 S. aureus (sensi p) CXR No acute process. Fever, recurrent; improving Leukocytosis, recurrent; SP KELLY, improving UTI, sp rx 06/01 UA w/ pyuria, UCx + P Mirabilis ESBL 06/01 BCx Neg 06/01 CXR: No acute process COVID rapid test neg H/o ESBL Proteus in UCx in Oct 2019 Renal US w/ BL cysts PMH: DM2 Parkinson's dementia Bedridden G-tube Plan: Empiric IV Vancomycin #4 for S.a ureus bactermia pending sensi (duration to follow) Switch Meropenem #4/7-10 to Ertapenem for ESBL UTI 06/10 SP audra #8 06/02 SP erta #1 06/01 SP cefepime, vanco, flagyl x1 in ED Monitor CBC/BMP f/u ucx, Bcx x2, CXR f/u Bcx x2, 2d echo D/w RN Thank you for this consult. [facility] will continue to follow. Subjective Allergies: Coded Allergies: No Known Allergies (Unverified , 08/27/19) afebrile >36hrs leukocytosis resolved pending repeat Bcx and 2d echo Objective Last 24 Hour Vital Signs Date Time Temp Pulse Resp B/P (MAP) Pulse Ox O2 Delivery O2 Flow Rate FiO2 06/24/20 12:00 104 06/24/20 12:00 97.9 102 21 130/61 (84) 96 06/24/20 09:00 Room Air 06/24/20 08:53 113 139/76 06/24/20 08:00 98.7 113 21 139/76 (97) 98 06/24/20 08:00 113 06/24/20 04:00 98.2 107 19 120/74 (89) 99 06/24/20 04:00 111 06/24/20 00:00 107 06/24/20 00:00 99.6 100 19 120/58 (78) 99 06/23/20 21:49 110 129/66 06/23/20 21:00 Room Air 06/23/20 20:00 97.5 111 19 122/66 (84) 99 06/23/20 20:00 124 Height (Feet): 5 Height (Inches): 5.00 Weight (Pounds): 123 GENERAL: no apparent distress. CHEST: Lungs are clear to auscultation bilaterally without wheezes or rales. CARDIOVASCULAR: regular rhythm. S1, S2 are normal without murmurs, rubs, or gallops. ABDOMEN: Soft, nontender, and nondistended. Positive bowel sounds. No evidence of hepatosplenomegaly. EXTREMITIES: Negative for clubbing, cyanosis, or edema. Microbiology Date/Time Source Procedure Growth Status 06/21/20 21:30 Blood Blood Culture - Preliminary Staphylococcus Aureus Resulted 06/21/20 21:15 Blood Blood Culture - Preliminary Staphylococcus Aureus Resulted Laboratory Tests Test 06/23/20 17:22 06/23/20 21:52 06/24/20 03:00 06/24/20 06:09 POC Whole Blood Glucose Pending 170 MG/DL (74-106) H 118 MG/DL (74-106) H Pending Test 06/24/20 08:30 White Blood Count 8.7 K/UL (4.8-10.8) Red Blood Count 3.57 M/UL (4.70-6.10) L Hemoglobin 10.5 G/DL (14.2-18.0) L Hematocrit 33.7 % (42.0-52.0) L Mean Corpuscular Volume 94 FL (80-99) Mean Corpuscular Hemoglobin 29.5 PG (27.0-31.0) Mean Corpuscular Hemoglobin Concent 31.3 G/DL (32.0-36.0) L Red Cell Distribution Width 15.1 % (11.6-14.8) H Platelet Count 156 K/UL (150-450) Mean Platelet Volume 9.9 FL (6.5-10.1) Neutrophils (%) (Auto) 61.3 % (45.0-75.0) Lymphocytes (%) (Auto) 25.4 % (20.0-45.0) Monocytes (%) (Auto) 11.4 % (1.0-10.0) H Eosinophils (%) (Auto) 1.2 % (0.0-3.0) Basophils (%) (Auto) 0.7 % (0.0-2.0) Sodium Level 137 MMOL/L (136-145) Potassium Level 4.4 MMOL/L (3.5-5.1) Chloride Level 103 MMOL/L (98-107) Carbon Dioxide Level 26 MMOL/L (21-32) Anion Gap 8 mmol/L (5-15) Blood Urea Nitrogen 27 mg/dL (7-18) H Creatinine 1.1 MG/DL (0.55-1.30) Estimat Glomerular Filtration Rate > 60 mL/min (>60) Glucose Level 223 MG/DL (74-106) H Calcium Level 9.1 MG/DL (8.5-10.1) Total Bilirubin 0.3 MG/DL (0.2-1.0) Aspartate Amino Transf (AST/SGOT) 22 U/L (15-37) Alanine Aminotransferase (ALT/SGPT) 35 U/L (12-78) Alkaline Phosphatase 221 U/L (46-116) H Total Protein 7.8 G/DL (6.4-8.2) Albumin 1.9 G/DL (3.4-5.0) L Globulin 5.9 g/dL Albumin/Globulin Ratio 0.3 (1.0-2.7) L Current Medications Medications (Trade) Dose Ordered Sig/Debi Route PRN Reason Start Time Stop Time Status Last Admin Dose Admin Acetaminophen (Tylenol) 650 mg Q6H PRN GT Mild Pain (Pain Scale 1-3) 06/06/20 16:15 07/02/20 16:14 06/22/20 21:34 Amantadine HCl (Symmetrel) 100 mg TWICE A DAY GT 06/06/20 18:00 07/02/20 08:59 06/24/20 08:52 Aspirin (ASA) 81 mg DAILY GT 06/07/20 09:00 07/17/20 08:59 06/24/20 08:53 Dextrose (Dextrose 50%) 25 ml Q30M PRN IV Hypoglycemia 06/22/20 07:00 09/20/20 06:59 Dextrose (Dextrose 50%) 50 ml Q30M PRN IV Hypoglycemia 06/22/20 07:00 09/20/20 06:59 Famotidine (Pepcid) 20 mg BID GT 06/06/20 18:00 09/01/20 17:59 06/24/20 08:52 Heparin Sodium (Porcine) (Heparin 5000 units/ml) 5,000 units EVERY 12 HOURS SUBQ 06/06/20 21:00 07/17/20 08:59 06/24/20 08:55 Insulin Aspart (NovoLOG) Q6HR SUBQ 06/11/20 18:00 09/09/20 17:59 06/24/20 12:57 Insulin Detemir (Levemir) 28 units EVERY 12 HOURS SUBQ 06/21/20 09:00 09/09/20 20:59 06/24/20 08:55 Meropenem 1 gm/ Sodium Chloride 55 ml @ 110 mls/hr Q12H IVPB 06/21/20 17:00 06/26/20 16:59 06/24/20 05:46 Metoprolol Tartrate (Lopressor) 25 mg Q12HR GT 06/22/20 09:00 09/20/20 08:59 06/24/20 08:53 Midodrine (Pro-Amatine) 2.5 mg TIDPRN PRN GT blood pressure below 100 sbp 06/23/20 15:00 09/11/20 10:14 Pravastatin Sodium (Pravachol) 20 mg BEDTIME GT 06/06/20 21:00 07/02/20 20:59 06/23/20 21:48 Sennosides (Senokot) 8.6 mg DAILY GT 06/07/20 09:00 07/02/20 08:59 06/24/20 08:53 Vancomycin HCl (Vanco pharmacy to dose) 1 ea DAILY PRN MISC Per rx protocol 06/21/20 15:30 07/21/20 15:29 Vancomycin HCl 750 mg/Sodium Chloride 275 ml @ 183.333 mls/hr Q12H IVPB 06/23/20 07:00 06/28/20 06:59 06/24/20 05:46 Blaire Greenwood M.D. Jun 24, 2020 16:20
[2020-06-24] MEDS: Ertapenem 1 GM in NS 55 ML IVPB SCH (17:16)
--- NOTE | 2020-06-24 18:53 | NUR ---
NURSE HAND-OFF REPORT: Important Events on Shift:Change in antibiotics, discontinued IV hydration with dextrose, change in rate of feeding (change to continuous at lower rate. Patient Status: Stable Diet: Glucerna 1.5@50cc/hour, [id number] if not on IV hydration. See portfolio specialist notes. Pending Orders: No order yet, but notified patient will be transferred to medical surgical unit, room 414-2. Pending Results/Labs:Vanco trough is 10.3, call pharmacy for change in Rx. Pending MD notification:N/A Latest Vital Signs: Temperature 98.8 , Pulse 104 , B/P 136 /59 , Respiratory Rate 21 , O2 SAT 97 , Room Air, O2 Flow Rate 3.0 . Vital Sign Comment: N/A EKG Rhythm: Sinus Tachycardia (low 100's) Rhythm change?: N Notified?: N -MD Mike PERKINS Response: Message left await call Latest Lane Fall Score: 55 Fall Risk: High Risk Safety Measures: Call light Within Reach, Bed Alarm Zone 1, Side Rails Side Rails x3, Bed position Low and Locked. Fall Precautions: Yellow Socks Yellow Gown Door Sign Report given to oncoming staff. Addendum: 06/24/20 at 1909 by BABAK LYNN RN Report given to Joyce Lagunas RN. Addendum: 06/24/20 at 1911 by BABAK LYNN RN Vanco will be 1 gram IVPB.
--- NOTE | 2020-06-24 19:20 | NUR ---
NURSE NOTES: RECEIVED REPORT FROM JOHNNY VALDOVINOS. PATIENT AWAKE, OX0, EASILY AROUSABLE WITH VOICE, NON-VERBAL, BUT ABLE TO NOD TO IN RESPONSE TO STATEMENTS. NO S/SX OF PAIN OR DISCOMFORT AT THIS TIME. BREATHING IS EVEN AND UNLABORED ON ROOM AIR, NO S/SX OF DISTRESS NOTED. IV SITE ON LEFT WRIST PATENT, INTACT, ASYMPTOMATIC. GTF RUNNING AT PRESCRIBED RATE- GT FLUSHED AND PATENT. CHRISTINE CATHETER DRAINING WELL TO GRAVITY, URINE CLEAR AND YELLOW IN COLOR- 500 ML SEEN IN DRAINAGE BAG. FALL AND ASPIRATION PRECAUTIONS IMPLEMENTED. BED LOCKED AND IN LOWEST POSITION, SIDERAILS UP X 3. CALL LIGHT WITHIN REACH. WILL CONTINUE TO MONITOR FOR ANY CHANGES.
[2020-06-24 20:00] VITALS: BP 130/76
[2020-06-24] MEDS: Vancomycin 1 GM in NS 275 ML IVPB SCH (20:26)
--- NOTE | 2020-06-24 21:00 | Internal Med Progress Note ---
Subjective Physician Name Cirilo Rome Attending Physician Cirilo Rome MD Current Medications Medications (Trade) Dose Ordered Sig/Debi Route PRN Reason Start Time Stop Time Status Last Admin Dose Admin Acetaminophen (Tylenol) 650 mg Q6H PRN GT Mild Pain (Pain Scale 1-3) 06/06/20 16:15 07/02/20 16:14 06/22/20 21:34 Amantadine HCl (Symmetrel) 100 mg TWICE A DAY GT 06/06/20 18:00 07/02/20 08:59 06/24/20 17:15 Aspirin (ASA) 81 mg DAILY GT 06/07/20 09:00 07/17/20 08:59 06/24/20 08:53 Dextrose (Dextrose 50%) 25 ml Q30M PRN IV Hypoglycemia 06/22/20 07:00 09/20/20 06:59 Dextrose (Dextrose 50%) 50 ml Q30M PRN IV Hypoglycemia 06/22/20 07:00 09/20/20 06:59 Ertapenem 1 gm/ Sodium Chloride 55 ml @ 110 mls/hr Q24H IVPB 06/24/20 17:00 06/29/20 16:59 06/24/20 17:16 Famotidine (Pepcid) 20 mg BID GT 06/06/20 18:00 09/01/20 17:59 06/24/20 17:15 Heparin Sodium (Porcine) (Heparin 5000 units/ml) 5,000 units EVERY 12 HOURS SUBQ 06/06/20 21:00 07/17/20 08:59 06/24/20 20:34 Insulin Aspart (NovoLOG) Q6HR SUBQ 06/11/20 18:00 09/09/20 17:59 06/24/20 12:57 Insulin Detemir (Levemir) 28 units EVERY 12 HOURS SUBQ 06/21/20 09:00 09/09/20 20:59 06/24/20 20:42 Metoprolol Tartrate (Lopressor) 25 mg Q12HR GT 06/22/20 09:00 09/20/20 08:59 06/24/20 20:26 Midodrine (Pro-Amatine) 2.5 mg TIDPRN PRN GT blood pressure below 100 sbp 06/23/20 15:00 09/11/20 10:14 Pravastatin Sodium (Pravachol) 20 mg BEDTIME GT 06/06/20 21:00 07/02/20 20:59 06/24/20 20:26 Sennosides (Senokot) 8.6 mg DAILY GT 06/07/20 09:00 07/02/20 08:59 06/24/20 08:53 Vancomycin HCl (Vanco pharmacy to dose) 1 ea DAILY PRN MISC Per rx protocol 06/21/20 15:30 07/21/20 15:29 Vancomycin HCl 1 gm/Sodium Chloride 275 ml @ 183.708 mls/hr Q12HR@0800,1999 IVPB 06/24/20 20:00 06/29/20 19:59 06/24/20 20:26 Allergies: Coded Allergies: No Known Allergies (Unverified , 08/27/19) Subjective awake, alert, responsive, no acute distress. WBC: 8.7. Objective Last Vital Signs Date Time Temp Pulse Resp B/P (MAP) Pulse Ox O2 Delivery O2 Flow Rate FiO2 06/24/20 20:26 88 130/76 06/24/20 16:00 98.8 21 97 06/24/20 09:00 Room Air Laboratory Tests Test 06/23/20 21:52 06/24/20 03:00 06/24/20 06:09 06/24/20 08:30 POC Whole Blood Glucose 170 MG/DL (74-106) H 118 MG/DL (74-106) H Pending White Blood Count 8.7 K/UL (4.8-10.8) Red Blood Count 3.57 M/UL (4.70-6.10) L Hemoglobin 10.5 G/DL (14.2-18.0) L Hematocrit 33.7 % (42.0-52.0) L Mean Corpuscular Volume 94 FL (80-99) Mean Corpuscular Hemoglobin 29.5 PG (27.0-31.0) Mean Corpuscular Hemoglobin Concent 31.3 G/DL (32.0-36.0) L Red Cell Distribution Width 15.1 % (11.6-14.8) H Platelet Count 156 K/UL (150-450) Mean Platelet Volume 9.9 FL (6.5-10.1) Neutrophils (%) (Auto) 61.3 % (45.0-75.0) Lymphocytes (%) (Auto) 25.4 % (20.0-45.0) Monocytes (%) (Auto) 11.4 % (1.0-10.0) H Eosinophils (%) (Auto) 1.2 % (0.0-3.0) Basophils (%) (Auto) 0.7 % (0.0-2.0) Sodium Level 137 MMOL/L (136-145) Potassium Level 4.4 MMOL/L (3.5-5.1) Chloride Level 103 MMOL/L (98-107) Carbon Dioxide Level 26 MMOL/L (21-32) Anion Gap 8 mmol/L (5-15) Blood Urea Nitrogen 27 mg/dL (7-18) H Creatinine 1.1 MG/DL (0.55-1.30) Estimat Glomerular Filtration Rate > 60 mL/min (>60) Glucose Level 223 MG/DL (74-106) H Calcium Level 9.1 MG/DL (8.5-10.1) Total Bilirubin 0.3 MG/DL (0.2-1.0) Aspartate Amino Transf (AST/SGOT) 22 U/L (15-37) Alanine Aminotransferase (ALT/SGPT) 35 U/L (12-78) Alkaline Phosphatase 221 U/L (46-116) H Total Protein 7.8 G/DL (6.4-8.2) Albumin 1.9 G/DL (3.4-5.0) L Globulin 5.9 g/dL Albumin/Globulin Ratio 0.3 (1.0-2.7) L Test 06/24/20 17:45 06/24/20 20:41 Vancomycin Level Trough 10.3 ug/mL (5.0-12.0) POC Whole Blood Glucose 102 MG/DL (74-106) Microbiology Date/Time Source Procedure Growth Status 06/21/20 21:30 Blood Blood Culture - Preliminary Staphylococcus Aureus Resulted 06/21/20 21:15 Blood Blood Culture - Preliminary Staphylococcus Aureus Resulted Intake and Output 06/23/20 06/24/20 19:00 07:00 Intake Total 1880 ml 448 ml Output Total 700 ml 800 ml Balance 1180 ml -352 ml Free Water 300 ml IV Total 1100 ml 338 ml Tube Feeding 480 ml 110 ml Output Urine Total 700 ml 800 ml # Bowel Movements 1 1 Objective General: No acute distress, awake and alert HEENT: NCAT, sclera anicteric, PERRL, EOMI. Neck: Supple, no significant jugular venous distention, Lungs: Fair inspiratory effort, clear to auscultation bilaterally, no Wheeze or Rales. Heart: Regular rate and rhythm, normal S1/S2, no murmurs Abdomen: soft, nontender, nondistended. Normoactive bowel sounds, PEG. Extremities: No Cyanosis , clubbing or edema. Neuro: A&O x 3, Able to move 5/5 upper extremities and 1/5 lower extremities. Skin: warm, no rash. Assessment/Plan Assessment/Plan ASSESSMENT: This is a 79-year-old male with: 1. Hyperglycemia. 2. Hypernatremia. 3. Urinary tract infection 4. Diabetes type 2. 5. Hypertension. 6. Hypercholesterolemia. 7. Dysphagia. 8. Parkinson disease. 9. Ulcerative proctitis. 10. Severe Protein-calorie malnutrition. 11. History of sacral decubitus ulcer stage IV. 12. Benign prostatic hypertrophy. 13. Gastroesophageal reflux disease. 14. Metabolic encephalopathy. 15. History of left hip fracture. 16. S. Aureus bacteremia- r/o MRSA- ?source- possible endocarditis 17. UTI, recurrent: P Mirabilis ESBL TREATMENT: 1. Hyperglycemia/diabetes. The patient has been placed on a protocol using NovoLog sliding scale. The patient's blood sugars have been running in 300s. Hyperglycemia may be secondary to urinary tract infection. 2. Urinary tract infection. 3. Hypertension. Continue amlodipine as above. 4. Hypercholesterolemia. Continue atorvastatin as above. 5. Dysphagia. The patient is status post PEG placement. 6. Parkinson disease. Continue amantadine as above. 7. Ulcerative proctitis. 8. Protein-calorie malnutrition. 9. Sacral decubitus ulcer stage IV. 10. Benign prostatic hypertrophy. Continue tamsulosin as above. 11. Gastroesophageal reflux disease. 12. Metabolic encephalopathy. 13. History of left hip fracture. Tolerate tube feeding @60 cc/hr. CODE STATUS: Full code. DVT prophylaxis: Heparin subcu. DC planning to SNF placement. Empiric IV Vancomycin #4 for S.a ureus bactermia pending sensi (duration to follow) Switch Meropenem #4/7-10 to Ertapenem for ESBL UTI Cirilo Rome MD Jun 24, 2020 21:00
--- NOTE | 2020-06-24 21:05 | NUR ---
NURSE NOTES: WOUND CARE DONE PRESCRIBED, PATIENT TOLERATED WELL. ORAL CARE PROVIDED.
[2020-06-25] VITALS: BP 132/75
--- NOTE | 2020-06-25 00:17 | NUR ---
NURSE NOTES: NEW BOTTLE OF GLUCERNA 1.5 HUNG, TUBING CHANGED PER PROTOCOL.
--- NOTE | 2020-06-25 03:10 | NUR ---
NURSE HAND-OFF REPORT: Important Events on Shift: WOUND CARE DONE Patient Status: STABLE Diet: GLUCERNA 1.5 @ 50 ML/HR CONTINUOUS, FLUSH 150ML Q4 Pending Orders: TRANSFER ORDER TO [facility] Pending Results/Labs: N/A Pending MD notification: N/A Latest Vital Signs: Temperature 98.4 , Pulse 110 , B/P 132 /75 , Respiratory Rate 20 , O2 SAT 95 , Room Air, O2 Flow Rate 3.0 . Vital Sign Comment: STABLE EKG Rhythm: Sinus Tachycardia Rhythm change?: N Notified?: N -MD Mike PERKINS Response: Message left await call Latest Lane Fall Score: 20 Fall Risk: Low Risk Safety Measures: Call light Within Reach, Bed Alarm Zone 1, Side Rails Side Rails x3, Bed position Low and Locked. Fall Precautions: Yellow Socks Yellow Gown Door Sign Report given to JOHNNY CHENEY.
[2020-06-25 04:00] VITALS: BP 102/48
--- NOTE | 2020-06-25 04:00 | NUR ---
NURSE NOTES: Received pt from JOHNNY Estes. Pt awake, alert, and able to respond to simple questions. Bed in lowest position. Call light within reach. Will continue to monitor.
[2020-06-25] MEDS: NovoLOG Insulin Flexpen SUBQ SCH ×4 (06:00→17:25)
--- NOTE | 2020-06-25 07:37 | NUR ---
NURSE HAND-OFF REPORT: Important Events on Shift: Non eventful Patient Status: stable Diet: feeding Pending Orders: y Pending Results/Labs:y Pending notification:y Latest Vital Signs: Temperature 97.0 , Pulse 72 , B/P 102 /48 , Respiratory Rate 19 , O2 SAT 98 , Room Air, O2 Flow Rate 3.0 . Vital Sign Comment: stable EKG Rhythm: Sinus Tachycardia Rhythm change?: N MD Notified?: N -MD Mike PERKINS Response: Message left await call Latest Lane Fall Score: 20 Fall Risk: Low Risk Safety Measures: Call light Within Reach, Bed Alarm Zone 1, Side Rails Side Rails x3, Bed position Low and Locked. Fall Precautions: y Yellow Socks y Yellow Gown y Door Sign y Report given to JOHNNY Mendez.
[2020-06-25 08:00] VITALS: BP 119/73
--- NOTE | 2020-06-25 08:25 | NUR ---
NURSE NOTES: Received report from JOHNNY Cook. Pt is AOx3, stable and resting in bed. Pt is on RA with no complaints of distress or s/s at this time. pt gtube running 1.5 glucerna at 50cc, no residual. 16Fr mckinney draining. Scaral DTI, bilateral trochanter and heel reddness noted. Bed low and locked, call light in reach, bed alarm on and Pt instructed to call for help. L 22g writ IV sl patent and itnact.
[2020-06-25] MEDS: Aspirin Baby 81mg GT SCH (08:40)
[2020-06-25] MEDS: Amantadine 100mg cap GT SCH ×2 (08:40→16:24)
[2020-06-25] MEDS: Sennosides 8.6mg tab GT SCH (08:40)
[2020-06-25] MEDS: Vancomycin 1 GM in NS 275 ML IVPB SCH ×2 (08:41→20:26)
[2020-06-25] MEDS: Levemir Flexpen SUBQ SCH ×2 (08:50→20:32)
[2020-06-25] MEDS: Heparin 5000 units/ml inj SUBQ SCH ×2 (08:50→20:33)
--- NOTE | 2020-06-25 08:58 | Pulmonology Progress Note ---
Subjective ROS Limited/Unobtainable: No Constitutional: Reports: no symptoms, anorexia HEENT: Repors: no symptoms Respiratory: Reports: no symptoms Cardiovascular: Reports: no symptoms Allergies: Coded Allergies: No Known Allergies (Unverified , 08/27/19) All Systems: reviewed and negative except above Objective Last 24 Hour Vital Signs Date Time Temp Pulse Resp B/P (MAP) Pulse Ox O2 Delivery O2 Flow Rate FiO2 06/25/20 08:40 77 119/72 06/25/20 04:00 99 06/25/20 04:00 97.0 72 19 102/48 (66) 98 06/25/20 00:00 112 06/25/20 00:00 98.4 110 20 132/75 (94) 95 06/24/20 21:00 Room Air 06/24/20 20:26 88 130/76 06/24/20 20:00 99.5 88 18 130/76 (94) 96 06/24/20 20:00 114 06/24/20 16:00 104 06/24/20 16:00 98.8 101 21 136/59 (84) 97 06/24/20 12:00 104 06/24/20 12:00 97.9 102 21 130/61 (84) 96 06/24/20 09:00 Room Air Intake and Output 06/24/20 06/25/20 19:00 07:00 Intake Total 1087 ml 150 ml Output Total 1100 ml Balance 1087 ml -950 ml Free Water 100 ml IV Total 737 ml Tube Feeding 250 ml 150 ml Output Urine Total 1100 ml # Bowel Movements 1 General Appearance: cachetic HEENT: normocephalic, atraumatic Respiratory: chest wall non-tender, normal breath sounds Cardiovascular: normal peripheral pulses, normal rate Abdomen: normal bowel sounds Genitourinary: normal external genitalia Extremities: no clubbing Skin: no lesions Neurologic: pediatric acute care unit nurse II-XII grossly normal Lymphatic: no neck adenopathy Microbiology Date/Time Source Procedure Growth Status 06/23/20 18:00 Blood Blood Culture - Preliminary NO GROWTH AFTER 24 HOURS Resulted 06/23/20 17:45 Blood Blood Culture - Preliminary NO GROWTH AFTER 24 HOURS Resulted Laboratory Tests 06/24/20 17:45: Vancomycin Level Trough 10.3 06/24/20 20:41: POC Whole Blood Glucose 102 06/25/20 05:26: POC Whole Blood Glucose 123H 06/25/20 08:48: POC Whole Blood Glucose 185H Current Medications Medications (Trade) Dose Ordered Sig/Debi Route PRN Reason Start Time Stop Time Status Last Admin Dose Admin Acetaminophen (Tylenol) 650 mg Q6H PRN GT Mild Pain (Pain Scale 1-3) 06/06/20 16:15 07/02/20 16:14 06/22/20 21:34 Amantadine HCl (Symmetrel) 100 mg TWICE A DAY GT 06/06/20 18:00 07/02/20 08:59 06/25/20 08:40 Aspirin (ASA) 81 mg DAILY GT 06/07/20 09:00 07/17/20 08:59 06/25/20 08:40 Dextrose (Dextrose 50%) 25 ml Q30M PRN IV Hypoglycemia 06/22/20 07:00 09/20/20 06:59 Dextrose (Dextrose 50%) 50 ml Q30M PRN IV Hypoglycemia 06/22/20 07:00 09/20/20 06:59 Ertapenem 1 gm/ Sodium Chloride 55 ml @ 110 mls/hr Q24H IVPB 06/24/20 17:00 06/29/20 16:59 06/24/20 17:16 Famotidine (Pepcid) 20 mg BID GT 06/06/20 18:00 09/01/20 17:59 06/25/20 08:40 Heparin Sodium (Porcine) (Heparin 5000 units/ml) 5,000 units EVERY 12 HOURS SUBQ 06/06/20 21:00 07/17/20 08:59 06/25/20 08:50 Insulin Aspart (NovoLOG) Q6HR SUBQ 06/11/20 18:00 09/09/20 17:59 06/24/20 12:57 Insulin Detemir (Levemir) 28 units EVERY 12 HOURS SUBQ 06/21/20 09:00 09/09/20 20:59 06/25/20 08:50 Metoprolol Tartrate (Lopressor) 25 mg Q12HR GT 06/22/20 09:00 09/20/20 08:59 06/25/20 08:40 Midodrine (Pro-Amatine) 2.5 mg TIDPRN PRN GT blood pressure below 100 sbp 06/23/20 15:00 09/11/20 10:14 Pravastatin Sodium (Pravachol) 20 mg BEDTIME GT 06/06/20 21:00 07/02/20 20:59 06/24/20 20:26 Sennosides (Senokot) 8.6 mg DAILY GT 06/07/20 09:00 07/02/20 08:59 06/25/20 08:40 Vancomycin HCl (Vanco pharmacy to dose) 1 ea DAILY PRN MISC Per rx protocol 06/21/20 15:30 07/21/20 15:29 Vancomycin HCl 1 gm/Sodium Chloride 275 ml @ 183.708 mls/hr Q12HR@0800,1999 IVPB 06/24/20 20:00 06/29/20 19:59 06/25/20 08:41 Assessment/Plan Problems: (1) Staphylococcus aureus bacteremia (2) Sepsis (3) Multiple drug resistant organism (MDRO) culture positive (4) Hypernatremia (5) History of CVA (cerebrovascular accident) (6) History of hypertension (7) Parkinson disease (8) Severe protein-calorie malnutrition (9) Feeding by G-tube (10) Diabetes mellitus Assessment/Plan less tachy still low grade temp repeat all cultures , Urine has proteus,,MDR COVID Negative sliding scale all reviewed, symptomatic treatment dvt prophylaxis Latanya Mckeon MD Jun 25, 2020 08:58
--- NOTE | 2020-06-25 11:33 | NUR ---
CARDIOLOGY ECHO REPORT: Technically difficult study due to poor acoustical windows to extent visualized. Normal left ventricular chamber size, systolic function and wall motion. Left ventricular ejection fraction estimated to be 60 %. No evidence of pericardial effusion. All other cardiac chamber sizes are within normal limits. Focal aortic valve sclerosis with adequate cusp excursion. Thickened mitral valve leaflets with normal excursion. Mitral annulus and aortic root calcification. Pulmonic valve not well visualized. Normal tricuspid valve structure. IVC at normal size and collapsing with respiration. A color flow and spectral Doppler study was performed and revealed: Trace aortic regurgitation. No mitral regurgitation. Mitral diastolic velocities suggest reduced left ventricular relaxation c/w mild diastolic dysfunction (Grade I). Trace tricuspid regurgitation. Tricuspid systolic velocities suggests peak right ventricular systolic pressure of 22 mmHg.
--- NOTE | 2020-06-25 11:59 | Surgery Progress Note ---
Surgery Progress Note Subjective Additional Comments afebrile, HD stable, comfortable no complaints labs improved Objective Last 24 Hour Vital Signs Date Time Temp Pulse Resp B/P (MAP) Pulse Ox O2 Delivery O2 Flow Rate FiO2 06/25/20 09:00 Room Air 06/25/20 08:40 77 119/72 06/25/20 08:00 97.1 77 19 119/73 (88) 98 06/25/20 08:00 105 06/25/20 04:00 99 06/25/20 04:00 97.0 72 19 102/48 (66) 98 06/25/20 00:00 112 06/25/20 00:00 98.4 110 20 132/75 (94) 95 06/24/20 21:00 Room Air 06/24/20 20:26 88 130/76 06/24/20 20:00 99.5 88 18 130/76 (94) 96 06/24/20 20:00 114 06/24/20 16:00 104 06/24/20 16:00 98.8 101 21 136/59 (84) 97 06/24/20 12:00 104 06/24/20 12:00 97.9 102 21 130/61 (84) 96 I&O Intake and Output 06/24/20 06/25/20 19:00 07:00 Intake Total 1087 ml 150 ml Output Total 1100 ml Balance 1087 ml -950 ml Free Water 100 ml IV Total 737 ml Tube Feeding 250 ml 150 ml Output Urine Total 1100 ml # Bowel Movements 1 Dressing: other Wound: other Cardiovascular: RSR Respiratory: decreased breath sounds Abdomen: soft, non-tender, present bowel sounds Extremities: no edema, no tenderness, no cyanosis Laboratory Tests Test 06/24/20 17:45 06/24/20 20:41 06/25/20 05:26 06/25/20 08:48 Vancomycin Level Trough 10.3 ug/mL (5.0-12.0) POC Whole Blood Glucose 102 MG/DL (74-106) 123 MG/DL (74-106) H 185 MG/DL (74-106) H Plan Problems: (1) Hypernatremia (2) Dehydration (3) Hip fracture, left (4) Diabetes mellitus (5) History of hypertension (6) Severe protein-calorie malnutrition Assessment & Plan: DAILY ESTIMATED NEEDS: Needs based on Sepsis, DM/ 54kg 30-40 kcals/kg 7882-4539 total kcals 1.25-2 g protein/kg 68-108 g total protein 25-35ml/kcal mL/kg 3857-7794 total fluid mLs NUTRITION DIAGNOSIS: * Swallowing difficulty R/T dysphagia, as evidenced by Pt is GT dep. (CURRENT TF: Glucerna 1.5 @ 30ml/hr x 24 hrs) ENTERAL NUTRITION RECOMMENDATIONS: Glucerna 1.5 @ 60ml/hr x 20 hrs to provide 1200ml, 1800kcal, 99g prot, 911ml free water, 160g carbs * Rec to INCREASE TF GOAL to 60ml/hr for 20 hrs * HOB over 30 degrees, increased water flushes * TF at goal meets 100% est needs. -------- ADDITIONAL RECOMMENDATIONS: * Calibrated bedscale wt for accurate CBW * Monitor lytes daily w/ TF, replete as needed * Pt may require increase in insulin regimen for improved BG W/ continuous TF infusion * Wound healing: DOMENICA BID, F/up w/ WC eval . (7) Acute encephalopathy (8) Pressure Ulcer Of Sacral Region, Unstageable Assessment & Plan: Pt presented on admission with purple and indurated area at Sacrococcygeal at previously compromised site(L)7cm x (W)3cm.Surrounding Hyperpigmentation at Sacrum. Non-Blanching erythema without fluctuance R heel. Non-Blanching erythema with delineated margins L heel (L)4.5cm x (W)5.5cm. L Heel is boggy . Tx.Plan: Apply Moisture Barrier Paste to Sacrum. Cover with Optifoam drsgs. Change every 3 days and prn. Apply Cavilon Skin Barrier to R and L trochanter. Cover each site with Optifoam drsgs. Change every 7 days and prn. Apply Cavilon Skin Barrier to each heel and malleoli. Cover each site with Optifoam drsgs. Change every 7 days and prn. Reposition at least every 2hours or as tolerated. Off-load heels with pillow. improving cont current care tube site okay (9) Feeding by G-tube (10) Abdominal distention (11) Multiple drug resistant organism (MDRO) culture positive (12) Sepsis (13) History of CVA (cerebrovascular accident) (14) Parkinson disease (15) Staphylococcus aureus bacteremia Assessment & Plan: repeat blood cultures negative on abx unlikely source of bacteremia from wounds. will monitor cont local wound care James Breen Jun 25, 2020 11:59
[2020-06-25 12:00] VITALS: BP 110/57
--- NOTE | 2020-06-25 14:28 | Internal Med Progress Note ---
Subjective Date of Service: Jun 25, 2020 Physician Name JordynTello Attending Physician Cirilo Rome MD Current Medications Medications (Trade) Dose Ordered Sig/Debi Route PRN Reason Start Time Stop Time Status Last Admin Dose Admin Acetaminophen (Tylenol) 650 mg Q6H PRN GT Mild Pain (Pain Scale 1-3) 06/06/20 16:15 07/02/20 16:14 06/22/20 21:34 Amantadine HCl (Symmetrel) 100 mg TWICE A DAY GT 06/06/20 18:00 07/02/20 08:59 06/25/20 08:40 Aspirin (ASA) 81 mg DAILY GT 06/07/20 09:00 07/17/20 08:59 06/25/20 08:40 Dextrose (Dextrose 50%) 25 ml Q30M PRN IV Hypoglycemia 06/22/20 07:00 09/20/20 06:59 Dextrose (Dextrose 50%) 50 ml Q30M PRN IV Hypoglycemia 06/22/20 07:00 09/20/20 06:59 Ertapenem 1 gm/ Sodium Chloride 55 ml @ 110 mls/hr Q24H IVPB 06/24/20 17:00 06/29/20 16:59 06/24/20 17:16 Famotidine (Pepcid) 20 mg BID GT 06/06/20 18:00 09/01/20 17:59 06/25/20 08:40 Heparin Sodium (Porcine) (Heparin 5000 units/ml) 5,000 units EVERY 12 HOURS SUBQ 06/06/20 21:00 07/17/20 08:59 06/25/20 08:50 Insulin Aspart (NovoLOG) Q6HR SUBQ 06/11/20 18:00 09/09/20 17:59 06/25/20 12:35 Insulin Detemir (Levemir) 28 units EVERY 12 HOURS SUBQ 06/21/20 09:00 09/09/20 20:59 06/25/20 08:50 Metoprolol Tartrate (Lopressor) 25 mg Q12HR GT 06/22/20 09:00 09/20/20 08:59 06/25/20 08:40 Midodrine (Pro-Amatine) 2.5 mg TIDPRN PRN GT blood pressure below 100 sbp 06/23/20 15:00 09/11/20 10:14 Pravastatin Sodium (Pravachol) 20 mg BEDTIME GT 06/06/20 21:00 07/02/20 20:59 06/24/20 20:26 Sennosides (Senokot) 8.6 mg DAILY GT 06/07/20 09:00 07/02/20 08:59 06/25/20 08:40 Vancomycin HCl (Vanco pharmacy to dose) 1 ea DAILY PRN MISC Per rx protocol 06/21/20 15:30 07/21/20 15:29 Vancomycin HCl 1 gm/Sodium Chloride 275 ml @ 183.708 mls/hr Q12HR@0800,1999 IVPB 06/24/20 20:00 06/29/20 19:59 06/25/20 08:41 Allergies: Coded Allergies: No Known Allergies (Unverified , 08/27/19) ROS Limited/Unobtainable: Yes Subjective 79 YO M admitted with hyperglycemia and hypernatremia. Now UTI. Cover for Int Med-Dr Rome Objective Last Vital Signs Date Time Temp Pulse Resp B/P (MAP) Pulse Ox O2 Delivery O2 Flow Rate FiO2 06/25/20 12:00 86 06/25/20 12:00 97.1 21 110/57 (74) 97 06/25/20 09:00 Room Air Laboratory Tests Test 06/24/20 17:45 06/24/20 20:41 06/25/20 05:26 06/25/20 08:48 Vancomycin Level Trough 10.3 ug/mL (5.0-12.0) POC Whole Blood Glucose 102 MG/DL (74-106) 123 MG/DL (74-106) H 185 MG/DL (74-106) H Test 06/25/20 12:28 POC Whole Blood Glucose 186 MG/DL (74-106) H Microbiology Date/Time Source Procedure Growth Status 06/23/20 18:00 Blood Blood Culture - Preliminary NO GROWTH AFTER 24 HOURS Resulted 06/23/20 17:45 Blood Blood Culture - Preliminary NO GROWTH AFTER 24 HOURS Resulted Intake and Output 06/24/20 06/25/20 19:00 07:00 Intake Total 1087 ml 150 ml Output Total 1100 ml Balance 1087 ml -950 ml Free Water 100 ml IV Total 737 ml Tube Feeding 250 ml 150 ml Output Urine Total 1100 ml # Bowel Movements 1 Objective PHYSICAL EXAMINATION: GENERAL: The patient is a well-developed, well-nourished, thin-appearing, male, in no apparent distress. HEENT: Eyes, pupils equal and responsive to light and accommodation. Extraocular movements are intact. NECK: Supple without lymphadenopathy. CHEST: Lungs are clear to auscultation bilaterally without wheezes or rales. CARDIOVASCULAR: Slightly tachycardic, regular rhythm. S1, S2 are normal without murmurs, rubs, or gallops. ABDOMEN: Soft, nontender, and nondistended. Positive bowel sounds. No evidence of hepatosplenomegaly. Currently, no rebound or guarding noted. EXTREMITIES: Negative for clubbing, cyanosis, or edema. RECTAL: Not performed. GENITAL: Not performed. NEUROLOGIC: Cranial nerves II through XII are grossly intact without focal deficits. Assessment/Plan Assessment/Plan ASSESSMENT: This is a 79-year-old male with: 1. Hyperglycemia. 2. Hypernatremia. 3. Urinary tract infection=MDR proteus. 4. Diabetes type 2. 5. Hypertension. 6. Hypercholesterolemia. 7. Dysphagia. 8. Parkinson disease. 9. Ulcerative proctitis. 10. Protein-calorie malnutrition. 11. History of sacral decubitus ulcer stage IV. 12. Benign prostatic hypertrophy. 13. Gastroesophageal reflux disease. 14. Metabolic encephalopathy. 15. History of left hip fracture. 16. sepsis=staph aureus TREATMENT: 1. Hyperglycemia/diabetes. The patient has been placed on a protocol using NovoLog sliding scale. The patient's blood sugars have been running in 300s. Hyperglycemia may be secondary to urinary tract infection. 2. Urinary tract infection. Urine culture =MDR proteus. ABX= ertapenem and vancomycin results.ID=Dr Oliva 3. Hypertension. Continue amlodipine as above. 4. Hypercholesterolemia. Continue atorvastatin as above. 5. Dysphagia. The patient is status post PEG placement. 6. Parkinson disease. Continue amantadine as above. 7. Ulcerative proctitis. 8. Protein-calorie malnutrition. 9. Sacral decubitus ulcer stage IV. 10. Benign prostatic hypertrophy. Continue tamsulosin as above. 11. Gastroesophageal reflux disease. 12. Metabolic encephalopathy. 13. History of left hip fracture. 14. R/O endocarditis Tello Cobb MD Jun 25, 2020 14:28
--- NOTE | 2020-06-25 15:31 | Infectious Diseases Prog Note ---
Assessment/Plan 79yo M with: COVID19 neg (06/01 rapid COVID PCR neg) Sespsis, recurrent MSSA bacteremia- - ?source- r/o endocarditis UTI, recurrent -06/23 Bcx NTD 2d echo p -06/21 rapid COVID PCR neg u/a wbc 5-10,nit neg, leuk +3; ucx >100k ESBL P.mirabilis Bx 12/15 MSSA CXR No acute process. Fever, recurrent; SP Leukocytosis, recurrent; SP KELLY, improving UTI, sp rx 06/01 UA w/ pyuria, UCx + P Mirabilis ESBL 06/01 BCx Neg 06/01 CXR: No acute process COVID rapid test neg H/o ESBL Proteus in UCx in Oct 2019 Renal US w/ BL cysts PMH: DM2 Parkinson's dementia Bedridden G-tube Plan: Empiric IV Vancomycin #5 for S.a ureus bactermia Ertapenem #2 (abx d #/) for ESBL UTI --once UTI treatment is completed- will switch above abx regimen to IV Ancef 2g q8hrs 06/24 SP MEropenem #4 06/10 SP audra #8 06/02 SP erta #1 06/01 SP cefepime, vanco, flagyl x1 in ED Monitor CBC/BMP f/u ucx, Bcx x2, CXR f/u Bcx x2, 2d echo D/w RN Thank you for this consult. [facility] will continue to follow. Subjective Allergies: Coded Allergies: No Known Allergies (Unverified , 08/27/19) afebrile >36hrs leukocytosis resolved pending repeat Bcx and 2d echo Objective Last 24 Hour Vital Signs Date Time Temp Pulse Resp B/P (MAP) Pulse Ox O2 Delivery O2 Flow Rate FiO2 06/25/20 12:00 86 06/25/20 12:00 97.1 73 21 110/57 (74) 97 06/25/20 09:00 Room Air 06/25/20 08:40 77 119/72 06/25/20 08:00 97.1 77 19 119/73 (88) 98 06/25/20 08:00 105 06/25/20 04:00 99 06/25/20 04:00 97.0 72 19 102/48 (66) 98 06/25/20 00:00 112 9/12/20 00:00 98.4 110 20 132/75 (94) 95 06/24/20 21:00 Room Air 06/24/20 20:26 88 130/76 06/24/20 20:00 99.5 88 18 130/76 (94) 96 06/24/20 20:00 114 06/24/20 16:00 104 06/24/20 16:00 98.8 101 21 136/59 (84) 97 Height (Feet): 5 Height (Inches): 5.00 Weight (Pounds): 123 GENERAL: no apparent distress. CHEST: Lungs are clear to auscultation bilaterally without wheezes or rales. CARDIOVASCULAR: regular rhythm. S1, S2 are normal without murmurs, rubs, or gallops. ABDOMEN: Soft, nontender, and nondistended. Positive bowel sounds. No evidence of hepatosplenomegaly. EXTREMITIES: Negative for clubbing, cyanosis, or edema. Microbiology Date/Time Source Procedure Growth Status 06/23/20 18:00 Blood Blood Culture - Preliminary NO GROWTH AFTER 24 HOURS Resulted 06/23/20 17:45 Blood Blood Culture - Preliminary NO GROWTH AFTER 24 HOURS Resulted Laboratory Tests Test 06/24/20 17:45 06/24/20 20:41 06/25/20 05:26 06/25/20 08:48 Vancomycin Level Trough 10.3 ug/mL (5.0-12.0) POC Whole Blood Glucose 102 MG/DL (74-106) 123 MG/DL (74-106) H 185 MG/DL (74-106) H Test 06/25/20 12:28 POC Whole Blood Glucose 186 MG/DL (74-106) H Current Medications Medications (Trade) Dose Ordered Sig/Debi Route PRN Reason Start Time Stop Time Status Last Admin Dose Admin Acetaminophen (Tylenol) 650 mg Q6H PRN GT Mild Pain (Pain Scale 1-3) 06/06/20 16:15 07/02/20 16:14 06/22/20 21:34 Amantadine HCl (Symmetrel) 100 mg TWICE A DAY GT 06/06/20 18:00 07/02/20 08:59 06/25/20 08:40 Aspirin (ASA) 81 mg DAILY GT 06/07/20 09:00 07/17/20 08:59 06/25/20 08:40 Dextrose (Dextrose 50%) 25 ml Q30M PRN IV Hypoglycemia 06/22/20 07:00 09/20/20 06:59 Dextrose (Dextrose 50%) 50 ml Q30M PRN IV Hypoglycemia 06/22/20 07:00 09/20/20 06:59 Ertapenem 1 gm/ Sodium Chloride 55 ml @ 110 mls/hr Q24H IVPB 06/24/20 17:00 06/29/20 16:59 06/24/20 17:16 Famotidine (Pepcid) 20 mg BID GT 06/06/20 18:00 09/01/20 17:59 06/25/20 08:40 Heparin Sodium (Porcine) (Heparin 5000 units/ml) 5,000 units EVERY 12 HOURS SUBQ 06/06/20 21:00 07/17/20 08:59 06/25/20 08:50 Insulin Aspart (NovoLOG) Q6HR SUBQ 06/11/20 18:00 09/09/20 17:59 06/25/20 12:35 Insulin Detemir (Levemir) 28 units EVERY 12 HOURS SUBQ 06/21/20 09:00 09/09/20 20:59 06/25/20 08:50 Metoprolol Tartrate (Lopressor) 25 mg Q12HR GT 06/22/20 09:00 09/20/20 08:59 06/25/20 08:40 Midodrine (Pro-Amatine) 2.5 mg TIDPRN PRN GT blood pressure below 100 sbp 06/23/20 15:00 09/11/20 10:14 Pravastatin Sodium (Pravachol) 20 mg BEDTIME GT 06/06/20 21:00 07/02/20 20:59 06/24/20 20:26 Sennosides (Senokot) 8.6 mg DAILY GT 06/07/20 09:00 07/02/20 08:59 06/25/20 08:40 Vancomycin HCl (Vanco pharmacy to dose) 1 ea DAILY PRN MISC Per rx protocol 06/21/20 15:30 07/21/20 15:29 Vancomycin HCl 1 gm/Sodium Chloride 275 ml @ 183.708 mls/hr Q12HR@0800,1999 IVPB 06/24/20 20:00 06/29/20 19:59 06/25/20 08:41 Blaire Greenwood M.D. Jun 25, 2020 15:31
[2020-06-25 16:00] VITALS: BP 115/75
[2020-06-25] MEDS ORDERED: Tubing IV Secondary IV ONE (16:21)
[2020-06-25] MEDS: Ertapenem 1 GM in NS 55 ML IVPB SCH (16:24)
--- NOTE | 2020-06-25 19:40 | NUR ---
NURSE HAND-OFF REPORT: Important Events on Shift: diarrhea x2 Patient Status: fc, stable Diet: glucerna 1.5 @50CC flush 150 q4hr Pending Orders: Pending Results/Labs: Pending MD notification: Latest Vital Signs: Temperature 97.1 , Pulse 110 , B/P 115 /75 , Respiratory Rate 19 , O2 SAT 97 , Room Air, O2 Flow Rate 3.0 . Vital Sign Comment: EKG Rhythm: Sinus Tachycardia Rhythm change?: N Notified?: N -MD Mike PERKINS Response: Message left await call Latest Lane Fall Score: 20 Fall Risk: Low Risk Safety Measures: Call light Within Reach, Bed Alarm Zone 1, Side Rails Side Rails x3, Bed position Low and Locked. Fall Precautions: Yellow Socks Yellow Gown Door Sign Report given to JOHNNY Cook.
--- NOTE | 2020-06-25 19:42 | NUR ---
NURSE NOTES: RECEIVED REPORT FROM JOHNNY HAM. AAOX2, NON-VERBAL, BUT ABLE TO NOD IN RESPONSE TO QUESTIONS BE ASKED. NO COMPLAINTS OF PAIN OR DISCOMFORT AT THIS TIME. BREATHING IS EVEN AND UNLABORED ON ROOM AIR, NO S/SX OF DISTRESS. IV SITE ON LEFT WRIST PATENT, INTACT, ASYMPTOMATIC, SALINE-LOCKED. GTF RUNNING PRESCRIBED- NEW BOTTLE HUNG; PATENT AND ASYMPTOMATIC. FALL AND ASPIRATION PRECAUTIONS IN PLACE. CONTACT ISOLATION IMPLEMENTED. BED LOCKED AND IN LOWEST POSITION, SIDERAILS UP X 3. CALL LIGHT WITHIN REACH, WILL CONTINUE TO MONITOR FOR ANY CHANGES. Addendum: 06/25/20 at 2242 by Joyce Lagunas RN IV SITE ON LFA
[2020-06-25 20:00] VITALS: BP 110/68
--- NOTE | 2020-06-25 20:30 | NUR ---
NURSE NOTES: PATIENT NOTED TO BE ST ON STEEL UNLOADER WITH HR OF 130. PATIENT ASYMPTOMATIC, AFEBRILE WITH NO SOB NOTED. PATIENT HAS HISTORY OF ST IN THE 130S. MD NOT NOTIFIED. WILL CONTINUE TO MONITOR FOR ANY CHANGES.
--- NOTE | 2020-06-25 23:12 | NUR ---
NURSE NOTES: PATIENT S/E BY DR. VELAZCO WITH NEW ORDER TO INCREASE LEVEMIR TO 30 UNITS Q12- NOTED AND CARRIED OUT.
[2020-06-26] VITALS: BP 115/65
--- NOTE | 2020-06-26 02:59 | Consultation ---
DATE OF CONSULTATION: 06/25/2020 ENDOCRINOLOGY CONSULTATION CONSULTING PHYSICIAN: Ant Chase MD REFERRING PHYSICIAN: Cirilo Rome MD REASON FOR CONSULTATION: I was asked to see this 79-year-old white female, referred by Dr. Cirilo Rome in Endocrinology consultation for management of type 2 diabetes mellitus, out of control. The patient under the care of Dr. Gregory Pastrana , previously has been receiving per G-tube, Levemir 20 units q.12 hours. persisted and . FAMILY HISTORY: Unremarkable. PERSONAL HISTORY: Unremarkable. REVIEW OF SYSTEMS: Unremarkable. PHYSICAL EXAMINATION: VITAL SIGNS: Blood pressure 110/68, pulse 118, respiratory rate 20, and temperature 99.0. HEAD AND NECK: Unremarkable. LUNGS: Clear. HEART: Heart sounds are regular. ABDOMEN: Soft. Bowel sounds present. EXTREMITIES: No edema. NEUROLOGIC: Cranial nerves II through XII are grossly intact with toes equivocal to plantar stimulation . LABORATORY DATA: . ASSESSMENT: . PLAN: Levemir 20 to 30 units q.12h. per G-tube . Ant Chase M.D. DR: Harvey JOB#: [id number] CC:
[2020-06-26 04:00] VITALS: BP 107/57
--- NOTE | 2020-06-26 05:00 | NUR ---
NURSE NOTES: WOUND CARE DONE, ORAL CARE PROVIDED. PATIENT TOLERATED WELL.
[2020-06-26] MEDS: NovoLOG Insulin Flexpen SUBQ SCH ×4 (06:00→17:18)
--- NOTE | 2020-06-26 06:43 | NUR ---
NURSE NOTES: DAILY WEIGHT CHARTED WITHOUT THE OVERLAY MATTRESS (68.0-12.05KG)
--- NOTE | 2020-06-26 07:19 | NUR ---
NURSE HAND-OFF REPORT: Important Events on Shift: LEVEMIR INCREASED TO 30 UNITS, WOUND CARE, DIARRHEA X 1, HR UP TO 130 Patient Status: STABLE Diet: GLUCERNA 1.5 50 ML/HR CONTINUOUS, FLUSH 150 ML Q4 Pending Orders: N/A Pending Results/Labs: 06/26 AM LABS Pending MD notification: N/A Latest Vital Signs: Temperature 98.2 , Pulse 114 , B/P 107 /57 , Respiratory Rate 22 , O2 SAT 97 , Room Air, O2 Flow Rate 3.0 . Vital Sign Comment: STABLE EKG Rhythm: Sinus Tachycardia Rhythm change?: N Notified?: N FRIDA Mckeon MD Response: Message left await call Latest Lane Fall Score: 20 Fall Risk: Low Risk Safety Measures: Call light Within Reach, Bed Alarm Zone 1, Side Rails Side Rails x3, Bed position Low and Locked. Fall Precautions: Yellow Socks Yellow Gown Door Sign Report given to JOHNNY HAM.
--- NOTE | 2020-06-26 07:20 | NUR ---
NURSE NOTES: Received report from JOHNNY Cook. Pt AOx1, nonverbal, stable on RA. Pt is calm, and relaxed. Awnering yes and no questions well. Respirations unlabored, 18RR. Pt has no s/s or complaints of distress at this time. Pt Gtube running glucerna 1.5 at 50cc, no residual. Pt L wrist 22g SL, asymptomatic and intact. Scaral stage 2 DTI, B trocanter redness noted. Pt bed low and locked, call light in reach and bed alarm on. pt is bed bound. Will continue to monitor.
[2020-06-26 08:00] VITALS: BP 123/70
[2020-06-26] MEDS: Sennosides 8.6mg tab GT SCH (09:00)
[2020-06-26] MEDS: Amantadine 100mg cap GT SCH ×2 (09:42→17:16)
[2020-06-26] MEDS: Aspirin Baby 81mg GT SCH (09:42)
[2020-06-26] MEDS: Vancomycin 1 GM in NS 275 ML IVPB SCH ×2 (09:43→20:00)
[2020-06-26] MEDS: Levemir Flexpen SUBQ SCH ×2 (09:47→21:00)
[2020-06-26] MEDS: Heparin 5000 units/ml inj SUBQ SCH ×2 (09:48→21:00)
[2020-06-26 12:00] VITALS: BP 123/70
[2020-06-26 12:02] LABS: BASOPHILS % (AUTO) 1.4 % (0.0-2.0); EOSINOPHILS % (AUTO) 1.2 % (0.0-3.0); HEMATOCRIT 35.5 % (42.0-52.0); LYMPHOCYTES % (AUTO) 20.9 % (20.0-45.0); MEAN CORPUSCULAR VOLUME 94 FL (80-99); NEUTROPHILS % (AUTO) 62.5 % (45.0-75.0); PLATELET COUNT 233 K/UL (150-450); RED BLOOD COUNT 3.76 M/UL (4.70-6.10); RED CELL DISTRIBUTION WIDTH 15.6 % (11.6-14.8)
[2020-06-26 12:41] LABS: ALANINE AMINOTRANSFERASE 34 U/L (12-78); ALBUMIN 1.9 G/DL (3.4-5.0); ALBUMIN/GLOBULIN RATIO 0.3 (1.0-2.7); ALKALINE PHOSPHATASE 247 U/L (46-116); ANION GAP 12 mmol/L (5-15); ASPARTATE AMINO TRANSFERASE 24 U/L (15-37); BILIRUBIN,TOTAL 0.3 MG/DL (0.2-1.0); BLOOD UREA NITROGEN 36 mg/dL (7-18); CALCIUM 8.8 MG/DL (8.5-10.1); CARBON DIOXIDE 25 MMOL/L (21-32); CHLORIDE 119 MMOL/L (98-107); POTASSIUM 4.7 MMOL/L (3.5-5.1); SODIUM 156 MMOL/L (136-145)
--- NOTE | 2020-06-26 14:47 | Internal Med Progress Note ---
Subjective Date of Service: Jun 26, 2020 Physician Name JordynTello Attending Physician Cirilo Rome MD Current Medications Medications (Trade) Dose Ordered Sig/Debi Route PRN Reason Start Time Stop Time Status Last Admin Dose Admin Acetaminophen (Tylenol) 650 mg Q6H PRN GT Mild Pain (Pain Scale 1-3) 06/06/20 16:15 07/02/20 16:14 06/22/20 21:34 Amantadine HCl (Symmetrel) 100 mg TWICE A DAY GT 06/06/20 18:00 07/02/20 08:59 06/26/20 09:42 Aspirin (ASA) 81 mg DAILY GT 06/07/20 09:00 07/17/20 08:59 06/26/20 09:42 Dextrose (Dextrose 50%) 25 ml Q30M PRN IV Hypoglycemia 06/22/20 07:00 09/20/20 06:59 Dextrose (Dextrose 50%) 50 ml Q30M PRN IV Hypoglycemia 06/22/20 07:00 09/20/20 06:59 Ertapenem 1 gm/ Sodium Chloride 55 ml @ 110 mls/hr Q24H IVPB 06/24/20 17:00 06/29/20 16:59 06/25/20 16:24 Famotidine (Pepcid) 20 mg BID GT 06/06/20 18:00 09/01/20 17:59 06/26/20 09:41 Heparin Sodium (Porcine) (Heparin 5000 units/ml) 5,000 units EVERY 12 HOURS SUBQ 06/06/20 21:00 07/17/20 08:59 06/26/20 09:48 Insulin Aspart (NovoLOG) Q6HR SUBQ 06/11/20 18:00 09/09/20 17:59 06/26/20 12:32 Insulin Detemir (Levemir) 30 units EVERY 12 HOURS SUBQ 06/26/20 09:00 09/09/20 20:59 06/26/20 09:47 Metoprolol Tartrate (Lopressor) 25 mg Q12HR GT 06/22/20 09:00 09/20/20 08:59 06/26/20 09:42 Midodrine (Pro-Amatine) 2.5 mg TIDPRN PRN GT blood pressure below 100 sbp 06/23/20 15:00 09/11/20 10:14 Pravastatin Sodium (Pravachol) 20 mg BEDTIME GT 06/06/20 21:00 07/02/20 20:59 06/25/20 20:26 Sennosides (Senokot) 8.6 mg DAILY GT 06/07/20 09:00 07/02/20 08:59 06/25/20 08:40 Vancomycin HCl (Vanco pharmacy to dose) 1 ea DAILY PRN MISC Per rx protocol 06/21/20 15:30 07/21/20 15:29 Vancomycin HCl 1 gm/Sodium Chloride 275 ml @ 183.708 mls/hr Q12HR@0800,1999 IVPB 06/24/20 20:00 06/29/20 19:59 06/26/20 09:43 Allergies: Coded Allergies: No Known Allergies (Unverified , 08/27/19) ROS Limited/Unobtainable: Yes Subjective 79 YO M admitted with hyperglycemia and hypernatremia. Now UTI. Cover for Int Med-Dr Rome Objective Last Vital Signs Date Time Temp Pulse Resp B/P (MAP) Pulse Ox O2 Delivery O2 Flow Rate FiO2 06/26/20 12:00 86 06/26/20 12:00 97.6 18 123/70 (87) 96 06/26/20 09:00 Room Air Laboratory Tests Test 06/25/20 20:30 06/25/20 23:22 06/26/20 11:45 POC Whole Blood Glucose Pending 108 MG/DL (74-106) H White Blood Count 9.0 K/UL (4.8-10.8) Red Blood Count 3.76 M/UL (4.70-6.10) L Hemoglobin 11.0 G/DL (14.2-18.0) L Hematocrit 35.5 % (42.0-52.0) L Mean Corpuscular Volume 94 FL (80-99) Mean Corpuscular Hemoglobin 29.3 PG (27.0-31.0) Mean Corpuscular Hemoglobin Concent 31.0 G/DL (32.0-36.0) L Red Cell Distribution Width 15.6 % (11.6-14.8) H Platelet Count 233 K/UL (150-450) Mean Platelet Volume 7.7 FL (6.5-10.1) Neutrophils (%) (Auto) 62.5 % (45.0-75.0) Lymphocytes (%) (Auto) 20.9 % (20.0-45.0) Monocytes (%) (Auto) 14.0 % (1.0-10.0) H Eosinophils (%) (Auto) 1.2 % (0.0-3.0) Basophils (%) (Auto) 1.4 % (0.0-2.0) Sodium Level 156 MMOL/L (136-145) H Potassium Level 4.7 MMOL/L (3.5-5.1) Chloride Level 119 MMOL/L (98-107) H Carbon Dioxide Level 25 MMOL/L (21-32) Anion Gap 12 mmol/L (5-15) Blood Urea Nitrogen 36 mg/dL (7-18) H Creatinine 1.0 MG/DL (0.55-1.30) Estimat Glomerular Filtration Rate > 60 mL/min (>60) Glucose Level 257 MG/DL (74-106) H Calcium Level 8.8 MG/DL (8.5-10.1) Total Bilirubin 0.3 MG/DL (0.2-1.0) Aspartate Amino Transf (AST/SGOT) 24 U/L (15-37) Alanine Aminotransferase (ALT/SGPT) 34 U/L (12-78) Alkaline Phosphatase 247 U/L (46-116) H Total Protein 8.0 G/DL (6.4-8.2) Albumin 1.9 G/DL (3.4-5.0) L Globulin 6.1 g/dL Albumin/Globulin Ratio 0.3 (1.0-2.7) L Microbiology Date/Time Source Procedure Growth Status 06/23/20 18:00 Blood Blood Culture - Preliminary NO GROWTH AFTER 48 HOURS Resulted 06/23/20 17:45 Blood Blood Culture - Preliminary NO GROWTH AFTER 48 HOURS Resulted Intake and Output 06/25/20 06/26/20 19:00 07:00 Intake Total 320 ml 1000 ml Output Total 1050 ml 850 ml Balance -730 ml 150 ml Free Water 150 ml 450 ml Tube Feeding 100 ml 550 ml Other 70 ml Output Urine Total 1050 ml 850 ml # Bowel Movements 1 1 Objective PHYSICAL EXAMINATION: GENERAL: The patient is a well-developed, well-nourished, thin-appearing, male, in no apparent distress. HEENT: Eyes, pupils equal and responsive to light and accommodation. Extraocular movements are intact. NECK: Supple without lymphadenopathy. CHEST: Lungs are clear to auscultation bilaterally without wheezes or rales. CARDIOVASCULAR: Slightly tachycardic, regular rhythm. S1, S2 are normal without murmurs, rubs, or gallops. ABDOMEN: Soft, nontender, and nondistended. Positive bowel sounds. No evidence of hepatosplenomegaly. Currently, no rebound or guarding noted. EXTREMITIES: Negative for clubbing, cyanosis, or edema. RECTAL: Not performed. GENITAL: Not performed. NEUROLOGIC: Cranial nerves II through XII are grossly intact without focal deficits. Assessment/Plan Assessment/Plan ASSESSMENT: This is a 79-year-old male with: 1. Hyperglycemia. 2. Hypernatremia. 3. Urinary tract infection=MDR proteus. 4. Diabetes type 2. 5. Hypertension. 6. Hypercholesterolemia. 7. Dysphagia. 8. Parkinson disease. 9. Ulcerative proctitis. 10. Protein-calorie malnutrition. 11. History of sacral decubitus ulcer stage IV. 12. Benign prostatic hypertrophy. 13. Gastroesophageal reflux disease. 14. Metabolic encephalopathy. 15. History of left hip fracture. 16. sepsis=staph aureus TREATMENT: 1. Hyperglycemia/diabetes. The patient has been placed on a protocol using NovoLog sliding scale. The patient's blood sugars have been running in 300s. Hyperglycemia may be secondary to urinary tract infection. 2. Urinary tract infection. Urine culture =MDR proteus. ABX= ertapenem and vancomycin results.ID=Dr Oliva 3. Hypertension. Continue amlodipine as above. 4. Hypercholesterolemia. Continue atorvastatin as above. 5. Dysphagia. The patient is status post PEG placement. 6. Parkinson disease. Continue amantadine as above. 7. Ulcerative proctitis. 8. Protein-calorie malnutrition. 9. Sacral decubitus ulcer stage IV. 10. Benign prostatic hypertrophy. Continue tamsulosin as above. 11. Gastroesophageal reflux disease. 12. Metabolic encephalopathy. 13. History of left hip fracture. 14. R/O endocarditis Tello Cobb MD Jun 26, 2020 14:47
--- NOTE | 2020-06-26 15:14 | Cardiology Report ---
APPROVED REPORT EXAM: Two-dimensional and M-mode echocardiogram with Doppler and color Doppler. INDICATION [employer] M-Mode DIMENSIONS IVSd1.1 (0.7-1.1cm)Left Atrium (MM)2.0 (1.6-4.0cm) LVDd2.8 (3.5-5.6cm)Aortic Root3.4 (2.0-3.7cm) PWd0.9 (0.7-1.1cm)Aortic Cusp Exc.1.9 (1.5-2.0cm) IVSs1.4 cmEPSS0.3 (>1.0cm) LVDs1.9 (2.5-4.0cm) PWs1.4 cm <Conclusion> Technically difficult study due to poor acoustical windows to extent visualized. Normal left ventricular chamber size, systolic function and wall motion. Left ventricular ejection fraction estimated to be 60 %. No evidence of pericardial effusion. All other cardiac chamber sizes are within normal limits. Focal aortic valve sclerosis with adequate cusp excursion. Thickened mitral valve leaflets with normal excursion. Mitral annulus and aortic root calcification. Pulmonic valve not well visualized. Normal tricuspid valve structure. IVC at normal size and collapsing with respiration. A color flow and spectral Doppler study was performed and revealed: Trace aortic regurgitation. No mitral regurgitation. Mitral diastolic velocities suggest reduced left ventricular relaxation c/w mild diastolic dysfunction (Grade I). Trace tricuspid regurgitation. Tricuspid systolic velocities suggests peak right ventricular systolic pressure of 22 mmHg.
[2020-06-26 16:00] VITALS: BP 129/79
[2020-06-26] MEDS: Ertapenem 1 GM in NS 55 ML IVPB SCH (16:14)
--- NOTE | 2020-06-26 16:16 | Nephrology Progress Note ---
Assessment/Plan Problem List: (1) Hypernatremia (2) Sepsis (3) History of CVA (cerebrovascular accident) (4) Parkinson disease (5) Feeding by G-tube (6) Dehydration Assessment KELLY, resolving, serum creatinine of 1.9 now down to 1.2 Hypernatremia, dehydration, free water deficit Sepsis Diabetes mellitus [id number] GT feeding Severe protein calorie malnutrition History of CVA History of hypertension Parkinson's disease Plan June 26: Lab reviewed. Serum sodium higher. Will give D5W bolus. Continue to monitor electrolytes. June 24: Lab reviewed. Renal parameters stable. Will discontinue IV fluid. Continue her consultants. June 23: Labs reviewed. Medication list reviewed. Renal parameters stable. Blood sugar needs better control. Defer to PMD and er medical technician. June 22: Clinically stable. Labs reviewed. Blood sugar elevated. Renal parameters stable. Continue blood sugar management per er medical technician June 21: Patient is febrile today. Abnormal electrolytes addressed. Stable from renal standpoint of view. June 20: No chemistry panel done today. Stable from renal standpoint. Will order chemistry panel tomorrow June 19: Labs reviewed. Phosphorus supplement given. Stable from renal standpoint of view. June 18: Lab reviewed. Serum sodium lower. Creatinine 1.1. Continue current management. June 17: Lab reviewed. Sodium 160. Creatinine 1.3. Calcium lower at 9. Will continue D5W. June 16: Labs reviewed. Renal parameters stable. Serum calcium lowering. Serum sodium lowering. Serum creatinine 1.3. Another 1 L of D5W ordered. June 15: Lab reviewed. Serum sodium high. 1 L D5W given. Serum creatinine 1.4. Pamidronate given yesterday. Continue to monitor serum calcium. June 14: Lab reviewed. Serum calcium high corrected for low serum albumin. 60 mg pamidronate ID given. Continue to monitor renal parameters calcium and phosphorus. June 13: Lab reviewed. Medication list reviewed. Renal parameters stable. Will watch serum calcium and serum sodium. Chemistry panel tomorrow. June 12: Labs reviewed. Stable from renal standpoint of view. June 11: Labs reviewed. Stable renal parameters. June 10: Lab reviewed. Serum potassium normalized. Will give 1 L of D5W for high serum sodium. Continue per consultants. June 09: Labs reviewed. Discussed with RN. Serum potassium elevated. Suspect hemolysis. Will repeat serum potassium. DC all potassium supplements. June 08: Serum sodium higher. Will give 1 L of D5W. Renal parameters stable. Continue to monitor electrolytes. Continue per consultants. June 07: 1 bolus of D5W. Renal parameters stable. Serum sodium slightly high. Stable from renal standpoint of view. June 06: We will again discontinue the IV ordered. Stable from renal standpoint of view. Will start midodrine for low blood pressure. June 05: DC IV fluid. Potassium supplement given. Stable from renal standpoint to view. June 04: Potassium and magnesium supplement IV given, stable from renal standpoint of view. IV fluid D5W Monitor electrolytes Monitor renal parameters Hold blood pressure medication since blood pressure low Per orders, per consultants Subjective ROS Limited/Unobtainable: No Constitutional: Reports: malaise Objective Objective Last 24 Hour Vital Signs Date Time Temp Pulse Resp B/P (MAP) Pulse Ox O2 Delivery O2 Flow Rate FiO2 06/26/20 12:00 86 06/26/20 12:00 97.6 87 18 123/70 (87) 96 06/26/20 09:42 98 127/69 06/26/20 09:00 Room Air 06/26/20 08:00 107 06/26/20 08:00 97.6 87 18 123/70 (87) 97 06/26/20 04:00 98.2 114 22 107/57 (74) 97 06/26/20 04:00 112 06/26/20 00:00 106 06/26/20 00:00 98.2 104 24 115/65 (82) 98 06/25/20 21:00 Room Air 06/25/20 20:27 118 110/68 06/25/20 20:00 125 06/25/20 20:00 99.3 118 22 110/68 (82) 99 Intake and Output 06/25/20 06/26/20 19:00 07:00 Intake Total 320 ml 1000 ml Output Total 1050 ml 850 ml Balance -730 ml 150 ml Free Water 150 ml 450 ml Tube Feeding 100 ml 550 ml Other 70 ml Output Urine Total 1050 ml 850 ml # Bowel Movements 1 1 Laboratory Tests 06/25/20 20:30: POC Whole Blood Glucose [Pending] 06/25/20 23:22: POC Whole Blood Glucose 108H 06/26/20 11:45: White Blood Count 9.0, Red Blood Count 3.76L, Hemoglobin 11.0L, Hematocrit 35.5L , Mean Corpuscular Volume 94, Mean Corpuscular Hemoglobin 29.3, Mean Corpuscular Hemoglobin Concent 31.0L, Red Cell Distribution Width 15.6H, Platelet Count 233, Mean Platelet Volume 7.7, Neutrophils (%) (Auto) 62.5, Lymphocytes (%) (Auto) 20.9, Monocytes (%) (Auto) 14.0H, Eosinophils (%) (Auto) 1.2, Basophils (%) (Auto) 1.4, Sodium Level 156H, Potassium Level 4.7, Chloride Level 119H, Carbon Dioxide Level 25, Anion Gap 12, Blood Urea Nitrogen 36H, Creatinine 1.0, Estimat Glomerular Filtration Rate > 60, Glucose Level 257H, Calcium Level 8.8, Total Bilirubin 0.3, Aspartate Amino Transf (AST/SGOT) 24, Alanine Aminotransferase (ALT/SGPT) 34, Alkaline Phosphatase 247H, Total Protein 8.0, Albumin 1.9L, Globulin 6.1, Albumin/Globulin Ratio 0.3L Height (Feet): 5 Height (Inches): 5.00 Weight (Pounds): 123 General Appearance: no apparent distress Objective No change Eddie Nelson MD Jun 26, 2020 16:16
--- NOTE | 2020-06-26 16:43 | Surgery Progress Note ---
Surgery Progress Note Subjective Symptoms: improved, tolerating diet, passing flatus, BM Objective Last 24 Hour Vital Signs Date Time Temp Pulse Resp B/P (MAP) Pulse Ox O2 Delivery O2 Flow Rate FiO2 06/26/20 16:00 99 06/26/20 16:00 97.6 101 18 129/79 (96) 97 06/26/20 12:00 86 06/26/20 12:00 97.6 87 18 123/70 (87) 96 06/26/20 09:42 98 127/69 06/26/20 09:00 Room Air 06/26/20 08:00 107 06/26/20 08:00 97.6 87 18 123/70 (87) 97 06/26/20 04:00 98.2 114 22 107/57 (74) 97 06/26/20 04:00 112 06/26/20 00:00 106 06/26/20 00:00 98.2 104 24 115/65 (82) 98 06/25/20 21:00 Room Air 06/25/20 20:27 118 110/68 06/25/20 20:00 125 06/25/20 20:00 99.3 118 22 110/68 (82) 99 I&O Intake and Output 06/25/20 06/26/20 19:00 07:00 Intake Total 320 ml 1000 ml Output Total 1050 ml 850 ml Balance -730 ml 150 ml Free Water 150 ml 450 ml Tube Feeding 100 ml 550 ml Other 70 ml Output Urine Total 1050 ml 850 ml # Bowel Movements 1 1 Dressing: saturated Cardiovascular: RSR Respiratory: decreased breath sounds Abdomen: soft, non-tender, present bowel sounds Extremities: no edema, no tenderness, no cyanosis Laboratory Tests Test 06/25/20 20:30 06/25/20 23:22 06/26/20 11:45 POC Whole Blood Glucose Pending 108 MG/DL (74-106) H White Blood Count 9.0 K/UL (4.8-10.8) Red Blood Count 3.76 M/UL (4.70-6.10) L Hemoglobin 11.0 G/DL (14.2-18.0) L Hematocrit 35.5 % (42.0-52.0) L Mean Corpuscular Volume 94 FL (80-99) Mean Corpuscular Hemoglobin 29.3 PG (27.0-31.0) Mean Corpuscular Hemoglobin Concent 31.0 G/DL (32.0-36.0) L Red Cell Distribution Width 15.6 % (11.6-14.8) H Platelet Count 233 K/UL (150-450) Mean Platelet Volume 7.7 FL (6.5-10.1) Neutrophils (%) (Auto) 62.5 % (45.0-75.0) Lymphocytes (%) (Auto) 20.9 % (20.0-45.0) Monocytes (%) (Auto) 14.0 % (1.0-10.0) H Eosinophils (%) (Auto) 1.2 % (0.0-3.0) Basophils (%) (Auto) 1.4 % (0.0-2.0) Sodium Level 156 MMOL/L (136-145) H Potassium Level 4.7 MMOL/L (3.5-5.1) Chloride Level 119 MMOL/L (98-107) H Carbon Dioxide Level 25 MMOL/L (21-32) Anion Gap 12 mmol/L (5-15) Blood Urea Nitrogen 36 mg/dL (7-18) H Creatinine 1.0 MG/DL (0.55-1.30) Estimat Glomerular Filtration Rate > 60 mL/min (>60) Glucose Level 257 MG/DL (74-106) H Calcium Level 8.8 MG/DL (8.5-10.1) Total Bilirubin 0.3 MG/DL (0.2-1.0) Aspartate Amino Transf (AST/SGOT) 24 U/L (15-37) Alanine Aminotransferase (ALT/SGPT) 34 U/L (12-78) Alkaline Phosphatase 247 U/L (46-116) H Total Protein 8.0 G/DL (6.4-8.2) Albumin 1.9 G/DL (3.4-5.0) L Globulin 6.1 g/dL Albumin/Globulin Ratio 0.3 (1.0-2.7) L Plan Problems: (1) Hypernatremia (2) Dehydration (3) Hip fracture, left (4) Diabetes mellitus (5) History of hypertension (6) Severe protein-calorie malnutrition Assessment & Plan: DAILY ESTIMATED NEEDS: Needs based on Sepsis, DM/ 54kg 30-40 kcals/kg 4020-0928 total kcals 1.25-2 g protein/kg 68-108 g total protein 25-35ml/kcal mL/kg 0634-7437 total fluid mLs NUTRITION DIAGNOSIS: * Swallowing difficulty R/T dysphagia, as evidenced by Pt is GT dep. (CURRENT TF: Glucerna 1.5 @ 30ml/hr x 24 hrs) ENTERAL NUTRITION RECOMMENDATIONS: Glucerna 1.5 @ 60ml/hr x 20 hrs to provide 1200ml, 1800kcal, 99g prot, 911ml free water, 160g carbs * Rec to INCREASE TF GOAL to 60ml/hr for 20 hrs * HOB over 30 degrees, increased water flushes * TF at goal meets 100% est needs. -------- ADDITIONAL RECOMMENDATIONS: * Calibrated bedscale wt for accurate CBW * Monitor lytes daily w/ TF, replete as needed * Pt may require increase in insulin regimen for improved BG W/ continuous TF infusion * Wound healing: DOMENICA BID, F/up w/ WC eval . (7) Acute encephalopathy (8) Pressure Ulcer Of Sacral Region, Unstageable Assessment & Plan: Pt presented on admission with purple and indurated area at Sacrococcygeal at previously compromised site(L)7cm x (W)3cm.Surrounding Hyperpigmentation at Sacrum. Non-Blanching erythema without fluctuance R heel. Non-Blanching erythema with delineated margins L heel (L)4.5cm x (W)5.5cm. L Heel is boggy . Tx.Plan: Apply Moisture Barrier Paste to Sacrum. Cover with Optifoam drsgs. Change every 3 days and prn. Apply Cavilon Skin Barrier to R and L trochanter. Cover each site with Optifoam drsgs. Change every 7 days and prn. Apply Cavilon Skin Barrier to each heel and malleoli. Cover each site with Optifoam drsgs. Change every 7 days and prn. Reposition at least every 2hours or as tolerated. Off-load heels with pillow. improving cont current care tube site okay (9) Feeding by G-tube (10) Abdominal distention (11) Multiple drug resistant organism (MDRO) culture positive (12) Sepsis (13) History of CVA (cerebrovascular accident) (14) Parkinson disease (15) Staphylococcus aureus bacteremia Assessment & Plan: repeat blood cultures negative on abx unlikely source of bacteremia from wounds. will monitor cont local wound care James Breen Jun 26, 2020 16:43
--- NOTE | 2020-06-26 19:18 | NUR ---
NURSE HAND-OFF REPORT: Important Events on Shift: 500 d5w 500cc/hr one time tx Patient Status: fc, stable Diet: glucerna @ 5occ continous Pending Orders: Pending Results/Labs: Pending MD notification: Latest Vital Signs: Temperature 97.6 , Pulse 99 , B/P 129 /79 , Respiratory Rate 18 , O2 SAT 97 , Room Air, O2 Flow Rate 3.0 . Vital Sign Comment: EKG Rhythm: Sinus Rhythm Rhythm change?: Gabriela PERKINS Notified?: N -MD Mike PERKINS Response: Message left await call Latest Lane Fall Score: 20 Fall Risk: Low Risk Safety Measures: Call light Within Reach, Bed Alarm Zone 1, Side Rails Side Rails x3, Bed position Low and Locked. Fall Precautions: Yellow Socks Yellow Gown Door Sign Report given to JOHNNY moore.
--- NOTE | 2020-06-26 19:24 | Pulmonology Progress Note ---
Subjective ROS Limited/Unobtainable: No Constitutional: Reports: no symptoms, anorexia HEENT: Repors: no symptoms Respiratory: Reports: no symptoms Cardiovascular: Reports: no symptoms Allergies: Coded Allergies: No Known Allergies (Unverified , 08/27/19) All Systems: reviewed and negative except above Objective Last 24 Hour Vital Signs Date Time Temp Pulse Resp B/P (MAP) Pulse Ox O2 Delivery O2 Flow Rate FiO2 06/26/20 16:00 99 06/26/20 16:00 97.6 101 18 129/79 (96) 97 06/26/20 12:00 86 06/26/20 12:00 97.6 87 18 123/70 (87) 96 06/26/20 09:42 98 127/69 06/26/20 09:00 Room Air 06/26/20 08:00 107 06/26/20 08:00 97.6 87 18 123/70 (87) 97 06/26/20 04:00 98.2 114 22 107/57 (74) 97 06/26/20 04:00 112 06/26/20 00:00 106 06/26/20 00:00 98.2 104 24 115/65 (82) 98 06/25/20 21:00 Room Air 06/25/20 20:27 118 110/68 06/25/20 20:00 125 06/25/20 20:00 99.3 118 22 110/68 (82) 99 Intake and Output 06/25/20 06/26/20 19:00 07:00 Intake Total 320 ml 1000 ml Output Total 1050 ml 850 ml Balance -730 ml 150 ml Free Water 150 ml 450 ml Tube Feeding 100 ml 550 ml Other 70 ml Output Urine Total 1050 ml 850 ml # Bowel Movements 1 1 General Appearance: cachetic HEENT: normocephalic, atraumatic Respiratory: chest wall non-tender, normal breath sounds Cardiovascular: normal peripheral pulses, normal rate Abdomen: normal bowel sounds Genitourinary: normal external genitalia Extremities: no clubbing Skin: no lesions 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 Lymphatic: no neck adenopathy Laboratory Tests 06/25/20 20:30: POC Whole Blood Glucose [Pending] 06/25/20 23:22: POC Whole Blood Glucose 108H 06/26/20 11:45: White Blood Count 9.0, Red Blood Count 3.76L, Hemoglobin 11.0L, Hematocrit 35.5L , Mean Corpuscular Volume 94, Mean Corpuscular Hemoglobin 29.3, Mean Corpuscular Hemoglobin Concent 31.0L, Red Cell Distribution Width 15.6H, Platelet Count 233, Mean Platelet Volume 7.7, Neutrophils (%) (Auto) 62.5, Lymphocytes (%) (Auto) 20.9, Monocytes (%) (Auto) 14.0H, Eosinophils (%) (Auto) 1.2, Basophils (%) (Auto) 1.4, Sodium Level 156H, Potassium Level 4.7, Chloride Level 119H, Carbon Dioxide Level 25, Anion Gap 12, Blood Urea Nitrogen 36H, Creatinine 1.0, Estimat Glomerular Filtration Rate > 60, Glucose Level 257H, Calcium Level 8.8, Total Bilirubin 0.3, Aspartate Amino Transf (AST/SGOT) 24, Alanine Aminotransferase (ALT/SGPT) 34, Alkaline Phosphatase 247H, Total Protein 8.0, Albumin 1.9L, Globulin 6.1, Albumin/Globulin Ratio 0.3L 06/26/20 17:15: POC Whole Blood Glucose 215H Current Medications Medications (Trade) Dose Ordered Sig/Debi Route PRN Reason Start Time Stop Time Status Last Admin Dose Admin Acetaminophen (Tylenol) 650 mg Q6H PRN GT Mild Pain (Pain Scale 1-3) 06/06/20 16:15 07/02/20 16:14 06/22/20 21:34 Amantadine HCl (Symmetrel) 100 mg TWICE A DAY GT 06/06/20 18:00 07/02/20 08:59 06/26/20 17:16 Aspirin (ASA) 81 mg DAILY GT 06/07/20 09:00 07/17/20 08:59 06/26/20 09:42 Dextrose (Dextrose 50%) 25 ml Q30M PRN IV Hypoglycemia 06/22/20 07:00 09/20/20 06:59 Dextrose (Dextrose 50%) 50 ml Q30M PRN IV Hypoglycemia 06/22/20 07:00 09/20/20 06:59 Ertapenem 1 gm/ Sodium Chloride 55 ml @ 110 mls/hr Q24H IVPB 06/24/20 17:00 06/29/20 16:59 06/26/20 16:14 Famotidine (Pepcid) 20 mg BID GT 06/06/20 18:00 09/01/20 17:59 06/26/20 17:17 Heparin Sodium (Porcine) (Heparin 5000 units/ml) 5,000 units EVERY 12 HOURS SUBQ 06/06/20 21:00 07/17/20 08:59 06/26/20 09:48 Insulin Aspart (NovoLOG) Q6HR SUBQ 06/11/20 18:00 09/09/20 17:59 06/26/20 17:18 Insulin Detemir (Levemir) 30 units EVERY 12 HOURS SUBQ 06/26/20 09:00 09/09/20 20:59 06/26/20 09:47 Metoprolol Tartrate (Lopressor) 25 mg Q12HR GT 06/22/20 09:00 09/20/20 08:59 06/26/20 09:42 Midodrine (Pro-Amatine) 2.5 mg TIDPRN PRN GT blood pressure below 100 sbp 06/23/20 15:00 09/11/20 10:14 Pravastatin Sodium (Pravachol) 20 mg BEDTIME GT 06/06/20 21:00 07/02/20 20:59 06/25/20 20:26 Sennosides (Senokot) 8.6 mg DAILY GT 06/07/20 09:00 07/02/20 08:59 06/25/20 08:40 Vancomycin HCl ([facility] pharmacy to dose) 1 ea DAILY PRN MISC Per rx protocol 06/21/20 15:30 07/21/20 15:29 Vancomycin HCl 1 gm/Sodium Chloride 275 ml @ 183.708 mls/hr Q12HR@0800,2000 IVPB 06/24/20 20:00 06/29/20 19:59 06/26/20 09:43 Assessment/Plan Problems: (1) Staphylococcus aureus bacteremia (2) Sepsis (3) Multiple drug resistant organism (MDRO) culture positive (4) Hypernatremia (5) History of CVA (cerebrovascular accident) (6) History of hypertension (7) Parkinson disease (8) Severe protein-calorie malnutrition (9) Feeding by G-tube (10) Diabetes mellitus Assessment/Plan all reviewed still low grade temp repeat all cultures , Urine has proteus,,MDR COVID Negative sliding scale all reviewed, symptomatic treatment dvt prophylaxis Latanya Mckeon MD Jun 26, 2020 19:24
--- NOTE | 2020-06-26 19:25 | NUR ---
NURSE NOTES: Pt received from JOHNNY Mendez. Pt is in bed resting with head elevated; pt is bedbound and AxOx1 and communicates with nodding. Pt is breathing well on RA sating 97%. Pt has mckinney catheter patent and draining well to gravity. Pt has IV RWrist 22G; IV is not patent and will be replaced. Pt is on cardiac monitoring ST and will continue to monitor. Pt has Gtube running Glucerna 1.5 50 ml/hr; Line was flushed and no residual noted. Bed locked in lowest position with call light within reach. Will continue to monitor.
[2020-06-26 20:00] VITALS: BP 125/63
--- NOTE | 2020-06-26 22:00 | NUR ---
NURSE NOTES: Pt IV RWrist 22G infiltrated; New IV placed on RFA 22G patent, dry and intact.
[2020-06-27] VITALS: BP 118/66
[2020-06-27 04:00] VITALS: BP 119/64
[2020-06-27] MEDS: NovoLOG Insulin Flexpen SUBQ SCH ×4 (06:00→18:52)
--- NOTE | 2020-06-27 07:03 | General Progress Note ---
Assessment/Plan Problem List: (1) Hypernatremia ICD Codes: E87.0 - Hyperosmolality and hypernatremia SNOMED: 054101368 (2) Feeding by G-tube ICD Codes: Z93.1 - Gastrostomy status SNOMED: 977692375, 274941069, 298189291 (3) Diabetes mellitus ICD Codes: E11.9 - Type 2 diabetes mellitus without complications SNOMED: 90553604 (4) History of CVA (cerebrovascular accident) ICD Codes: Z86.73 - Personal history of transient ischemic attack (TIA), and cerebral infarction without residual deficits SNOMED: 044669604 (5) Parkinson disease ICD Codes: G20 - Parkinson's disease SNOMED: 13925347 Assessment/Plan: continue Levemir 20 units bid continue Novolog sliding scale high dose every 6 hours Subjective Allergies: Coded Allergies: No Known Allergies (Unverified , 08/27/19) Subjective events noted and interval notes reviewed evaluation by Dr Chase over the weekend Item Value Date Time Bedside Blood Glucose 91 mg/dl 06/27/20 0600 Bedside Blood Glucose 125 mg/dl H 06/27/20 0000 Bedside Blood Glucose 125 mg/dl H 06/26/20 2100 Bedside Blood Glucose 215 mg/dl H 06/26/20 1718 Bedside Blood Glucose 234 mg/dl H 06/26/20 1232 Bedside Blood Glucose 266 mg/dl H 06/26/20 0947 Bedside Blood Glucose 122 mg/dl H 06/26/20 0600 Bedside Blood Glucose 108 mg/dl 06/26/20 0000 Objective Last 24 Hour Vital Signs Date Time Temp Pulse Resp B/P (MAP) Pulse Ox O2 Delivery O2 Flow Rate FiO2 06/27/20 04:00 104 06/27/20 04:00 97.5 98 20 119/64 (82) 98 06/27/20 00:00 98.2 96 20 118/66 (83) 96 06/27/20 00:00 100 06/26/20 21:00 117 125/59 06/26/20 21:00 Room Air 06/26/20 20:00 97.3 117 24 125/63 (83) 97 06/26/20 20:00 114 06/26/20 16:00 99 06/26/20 16:00 97.6 101 18 129/79 (96) 97 06/26/20 12:00 86 9/13/20 12:00 97.6 87 18 123/70 (87) 96 06/26/20 09:42 98 127/69 06/26/20 09:00 Room Air 06/26/20 08:00 107 06/26/20 08:00 97.6 87 18 123/70 (87) 97 Intake and Output 06/26/20 06/27/20 19:00 07:00 Intake Total 800 ml 650 ml Output Total 1650 ml 350 ml Balance -850 ml 300 ml Free Water 750 ml 600 ml Tube Feeding 50 ml 50 ml Output Urine Total 1650 ml 350 ml # Bowel Movements 1 1 Laboratory Tests 06/26/20 11:45: White Blood Count 9.0, Red Blood Count 3.76L, Hemoglobin 11.0L, Hematocrit 35.5L , Mean Corpuscular Volume 94, Mean Corpuscular Hemoglobin 29.3, Mean Corpuscular Hemoglobin Concent 31.0L, Red Cell Distribution Width 15.6H, Platelet Count 233, Mean Platelet Volume 7.7, Neutrophils (%) (Auto) 62.5, Lymphocytes (%) (Auto) 20.9, Monocytes (%) (Auto) 14.0H, Eosinophils (%) (Auto) 1.2, Basophils (%) (Auto) 1.4, Sodium Level 156H, Potassium Level 4.7, Chloride Level 119H, Carbon Dioxide Level 25, Anion Gap 12, Blood Urea Nitrogen 36H, Creatinine 1.0, Estimat Glomerular Filtration Rate > 60, Glucose Level 257H, Calcium Level 8.8, Total Bilirubin 0.3, Aspartate Amino Transf (AST/SGOT) 24, Alanine Aminotransferase (ALT/SGPT) 34, Alkaline Phosphatase 247H, Total Protein 8.0, Albumin 1.9L, Globulin 6.1, Albumin/Globulin Ratio 0.3L 06/26/20 17:15: POC Whole Blood Glucose 215H Height (Feet): 5 Height (Inches): 5.00 Weight (Pounds): 123 General Appearance: no apparent distress Neck: normal alignment Cardiovascular: normal rate Respiratory/Chest: lungs clear Abdomen: normal bowel sounds Objective Current Medications Medications (Trade) Dose Ordered Sig/Debi Route PRN Reason Start Time Stop Time Status Last Admin Dose Admin Acetaminophen (Tylenol) 650 mg Q6H PRN GT Mild Pain (Pain Scale 1-3) 8/24/20 16:15 07/02/20 16:14 06/22/20 21:34 Amantadine HCl (Symmetrel) 100 mg TWICE A DAY GT 06/06/20 18:00 07/02/20 08:59 06/26/20 17:16 Aspirin (ASA) 81 mg DAILY GT 06/07/20 09:00 07/17/20 08:59 06/26/20 09:42 Dextrose (Dextrose 50%) 25 ml Q30M PRN IV Hypoglycemia 06/22/20 07:00 09/20/20 06:59 Dextrose (Dextrose 50%) 50 ml Q30M PRN IV Hypoglycemia 06/22/20 07:00 09/20/20 06:59 Ertapenem 1 gm/ Sodium Chloride 55 ml @ 110 mls/hr Q24H IVPB 06/24/20 17:00 06/29/20 16:59 06/26/20 16:14 Famotidine (Pepcid) 20 mg BID GT 06/06/20 18:00 09/01/20 17:59 06/26/20 17:17 Heparin Sodium (Porcine) (Heparin 5000 units/ml) 5,000 units EVERY 12 HOURS SUBQ 06/06/20 21:00 07/17/20 08:59 06/26/20 21:00 Insulin Aspart (NovoLOG) Q6HR SUBQ 06/11/20 18:00 09/09/20 17:59 06/26/20 17:18 Insulin Detemir (Levemir) 30 units EVERY 12 HOURS SUBQ 06/26/20 09:00 09/09/20 20:59 06/26/20 21:00 Metoprolol Tartrate (Lopressor) 25 mg Q12HR GT 06/22/20 09:00 09/20/20 08:59 06/26/20 21:00 Midodrine (Pro-Amatine) 2.5 mg TIDPRN PRN GT blood pressure below 100 sbp 06/23/20 15:00 09/11/20 10:14 Pravastatin Sodium (Pravachol) 20 mg BEDTIME GT 06/06/20 21:00 07/02/20 20:59 06/26/20 21:00 Sennosides (Senokot) 8.6 mg DAILY GT 06/07/20 09:00 07/02/20 08:59 06/25/20 08:40 Vancomycin HCl ([facility] pharmacy to dose) 1 ea DAILY PRN MISC Per rx protocol 06/21/20 15:30 07/21/20 15:29 Vancomycin HCl 1 gm/Sodium Chloride 275 ml @ 183.708 mls/hr Q12HR@0800,2000 IVPB 06/24/20 20:00 06/29/20 19:59 06/26/20 20:00 Gregory Pastrana MD Jun 27, 2020 07:03
--- NOTE | 2020-06-27 07:30 | NUR ---
NURSE NOTES: Received pt from RN Bradford/Kaden. pt is awake and confused, pt is in RA, no SOB or acute respiratory distress noted. pt has intact iv access RFA 22G is SL. pt is on continues heart monitoring. Pt has g tube in place and running well. pt has mckinney cath in place is working well. all needs attended, bed is locked and is in the lowest position, call light within easy reach. will continue to monitor.
--- NOTE | 2020-06-27 07:44 | NUR ---
NURSE HAND-OFF REPORT: Important Events on Shift:Received new IV RFA 22G. Pt to hold Senna endorsed to JOHNNY Taylor. Patient Status: Stable Diet: Glucerna 1.5 50ml/hr Pending Results/Labs: AM Labs Latest Vital Signs: Temperature 97.5 , Pulse 98 , B/P 119 /64 , Respiratory Rate 20 , O2 SAT 98 , Room Air, O2 Flow Rate 3.0 . Vital Sign Comment: VSS EKG Rhythm: Sinus Tachycardia Rhythm change?: Gabriela PERKINS Notified?: N -MD Mike PERKINS Response: Message left await call Latest Lane Fall Score: 20 Fall Risk: Low Risk Safety Measures: Call light Within Reach, Bed Alarm Zone 1, Side Rails Side Rails x3, Bed position Low and Locked. Fall Precautions: Yellow Socks Yellow Gown Door Sign Report given to JOHNNY Taylor.
[2020-06-27 08:00] VITALS: BP 116/59
[2020-06-27] MEDS: Levemir Flexpen SUBQ SCH (09:00)
[2020-06-27] MEDS: Sennosides 8.6mg tab GT SCH ×2 (09:00→09:03)
[2020-06-27] MEDS: Vancomycin 1 GM in NS 275 ML IVPB SCH (09:02)
[2020-06-27] MEDS: Aspirin Baby 81mg GT SCH (09:04)
[2020-06-27] MEDS: Amantadine 100mg cap GT SCH ×2 (09:04→17:36)
[2020-06-27] MEDS: Heparin 5000 units/ml inj SUBQ SCH ×2 (09:06→20:53)
[2020-06-27 09:17] LABS: BASOPHILS % (AUTO) 1.4 % (0.0-2.0); HEMATOCRIT 35.4 % (42.0-52.0); HEMOGLOBIN 10.7 G/DL (14.2-18.0); LYMPHOCYTES % (AUTO) 17.9 % (20.0-45.0); MEAN CORPUSCULAR VOLUME 100 FL (80-99); MONOCYTES % (AUTO) 10.4 % (1.0-10.0); NEUTROPHILS % (AUTO) 68.3 % (45.0-75.0); PLATELET COUNT 269 K/UL (150-450); RED BLOOD COUNT 3.54 M/UL (4.70-6.10); WHITE BLOOD COUNT 11.6 K/UL (4.8-10.8)
[2020-06-27 09:37] LABS: ALANINE AMINOTRANSFERASE 32 U/L (12-78); ALBUMIN 1.9 G/DL (3.4-5.0); ALBUMIN/GLOBULIN RATIO 0.3 (1.0-2.7); ALKALINE PHOSPHATASE 232 U/L (46-116); ANION GAP 7 mmol/L (5-15); ASPARTATE AMINO TRANSFERASE 22 U/L (15-37); BILIRUBIN,TOTAL 0.3 MG/DL (0.2-1.0); BLOOD UREA NITROGEN 34 mg/dL (7-18); CALCIUM 9.4 MG/DL (8.5-10.1); CARBON DIOXIDE 31 MMOL/L (21-32); CHLORIDE 118 MMOL/L (98-107); PHOSPHORUS 3.8 MG/DL (2.5-4.9); SODIUM 156 MMOL/L (136-145)
--- NOTE | 2020-06-27 10:32 | NUR ---
NURSE NOTES: pt is stable, V/S stable, no belongings, iv access intact. pt transferred to 414 bed 1, report given to JOHNNY Roldan, endorsed plan of care.
--- NOTE | 2020-06-27 10:37 | NUR ---
NURSE NOTES: Report received from Brandon RN. Patient transferred from Telemetry, AxOx1, not in distress, tolerating room air, no outward sx of pain. Nurse reports patient had two episodes of diarrhea today, stool softeners held. Gtube patent and infusing GTF as ordered. PIV on right forearm patent and intact. Adams secured and draining well. Wound dressing/optifoam noted over sacral area, bilateral trochanter and bilateral heels, P200 mattress on and inflated. Bed low and locked, siderails up x2, call light placed within reach, will continue to monitor.
[2020-06-27] MEDS ORDERED: Acetaminophen 650mg/20.3ml GT PRN (11:00)
[2020-06-27 12:00] VITALS: BP 126/71
--- NOTE | 2020-06-27 12:42 | Pulmonology Progress Note ---
Subjective ROS Limited/Unobtainable: No Constitutional: Reports: no symptoms, anorexia HEENT: Repors: no symptoms Respiratory: Reports: no symptoms Cardiovascular: Reports: no symptoms Allergies: Coded Allergies: No Known Allergies (Unverified , 08/27/19) All Systems: reviewed and negative except above Objective Last 24 Hour Vital Signs Date Time Temp Pulse Resp B/P (MAP) Pulse Ox O2 Delivery O2 Flow Rate FiO2 06/27/20 09:04 97 116/59 06/27/20 09:00 Room Air 06/27/20 08:00 96.6 97 20 116/59 (78) 99 06/27/20 07:41 95 06/27/20 04:00 104 06/27/20 04:00 97.5 98 20 119/64 (82) 98 06/27/20 00:00 98.2 96 20 118/66 (83) 96 06/27/20 00:00 100 06/26/20 21:00 117 125/59 06/26/20 21:00 Room Air 06/26/20 20:00 97.3 117 24 125/63 (83) 97 06/26/20 20:00 114 06/26/20 16:00 99 06/26/20 16:00 97.6 101 18 129/79 (96) 97 Intake and Output 06/26/20 06/27/20 19:00 07:00 Intake Total 800 ml 650 ml Output Total 1650 ml 350 ml Balance -850 ml 300 ml Free Water 750 ml 600 ml Tube Feeding 50 ml 50 ml Output Urine Total 1650 ml 350 ml # Bowel Movements 1 1 General Appearance: cachetic HEENT: normocephalic, atraumatic Respiratory: chest wall non-tender, normal breath sounds Cardiovascular: normal peripheral pulses, normal rate, JVD Abdomen: normal bowel sounds, hyperactive bowel sounds Genitourinary: normal external genitalia Extremities: no clubbing Skin: no lesions 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 Lymphatic: no neck adenopathy Laboratory Tests 06/26/20 17:15: POC Whole Blood Glucose 215H 06/27/20 08:50: White Blood Count 11.6H, Red Blood Count 3.54L, Hemoglobin 10.7L, Hematocrit 35.4L, Mean Corpuscular Volume 100H, Mean Corpuscular Hemoglobin 30.2, Mean Corpuscular Hemoglobin Concent 30.1L, Red Cell Distribution Width 17.0H, Platelet Count 269, Mean Platelet Volume 9.5, Neutrophils (%) (Auto) 68.3, Lymphocytes (%) (Auto) 17.9L, Monocytes (%) (Auto) 10.4H, Eosinophils (%) (Auto ) 2.0, Basophils (%) (Auto) 1.4, Erythrocyte Sedimentation Rate 103H, Sodium Level 156H, Potassium Level 4.0, Chloride Level 118H, Carbon Dioxide Level 31, Anion Gap 7, Blood Urea Nitrogen 34H, Creatinine 1.0, Estimat Glomerular Filtration Rate > 60, Glucose Level 101#, Calcium Level 9.4, Phosphorus Level 3.8, Magnesium Level 2.6H, Total Bilirubin 0.3, Aspartate Amino Transf (AST/SGOT ) 22, Alanine Aminotransferase (ALT/SGPT) 32, Alkaline Phosphatase 232H, C- Reactive Protein, Quantitative 17.1H, Total Protein 8.0, Albumin 1.9L, Globulin 6.1, Albumin/Globulin Ratio 0.3L Current Medications Medications (Trade) Dose Ordered Sig/Debi Route PRN Reason Start Time Stop Time Status Last Admin Dose Admin Acetaminophen (Tylenol) 650 mg Q6H PRN GT Mild Pain (Pain Scale 1-3) 06/27/20 11:00 07/02/20 10:59 Amantadine HCl (Symmetrel) 100 mg TWICE A DAY GT 06/27/20 18:00 07/02/20 08:59 Aspirin (ASA) 81 mg DAILY GT 06/28/20 09:00 07/17/20 08:59 Dextrose (Dextrose 50%) 25 ml Q30M PRN IV Hypoglycemia 06/27/20 10:30 09/20/20 06:59 Dextrose (Dextrose 50%) 50 ml Q30M PRN IV Hypoglycemia 06/27/20 10:30 09/20/20 06:59 Ertapenem 1 gm/ Sodium Chloride 55 ml @ 110 mls/hr Q24H IVPB 06/27/20 17:00 06/29/20 16:59 Famotidine (Pepcid) 20 mg BID GT 06/27/20 18:00 09/01/20 17:59 Heparin Sodium (Porcine) (Heparin 5000 units/ml) 5,000 units EVERY 12 HOURS SUBQ 06/27/20 21:00 07/17/20 08:59 Insulin Aspart (NovoLOG) Q6HR SUBQ 06/27/20 12:00 09/09/20 17:59 Insulin Detemir (Levemir) 30 units EVERY 12 HOURS SUBQ 06/27/20 21:00 09/09/20 20:59 Metoprolol Tartrate (Lopressor) 25 mg Q12HR GT 06/27/20 21:00 09/20/20 08:59 Midodrine (Pro-Amatine) 2.5 mg TIDPRN PRN GT blood pressure below 100 sbp 06/27/20 11:00 09/11/20 10:59 Pravastatin Sodium (Pravachol) 20 mg BEDTIME GT 06/27/20 21:00 07/02/20 20:59 Sennosides (Senokot) 8.6 mg DAILY GT 06/28/20 09:00 07/02/20 08:59 Vancomycin HCl ([facility] pharmacy to dose) 1 ea DAILY PRN MISC Per rx protocol 06/27/20 11:00 07/27/20 10:59 Vancomycin HCl 1 gm/Sodium Chloride 275 ml @ 183.708 mls/hr Q12HR@0800,1999 IVPB 06/27/20 20:00 06/29/20 19:59 Assessment/Plan Problems: (1) Staphylococcus aureus bacteremia (2) Sepsis (3) Multiple drug resistant organism (MDRO) culture positive (4) Hypernatremia (5) History of CVA (cerebrovascular accident) (6) History of hypertension (7) Parkinson disease (8) Severe protein-calorie malnutrition (9) Feeding by G-tube (10) Diabetes mellitus Assessment/Plan still leukocytosis Na is still high still low grade temp repeat all cultures , Urine has proteus,,MDR COVID Negative sliding scale all reviewed, symptomatic treatment dvt prophylaxis Latanya Mckeon MD Jun 27, 2020 12:42
--- NOTE | 2020-06-27 13:14 | Nephrology Progress Note ---
Assessment/Plan Problem List: (1) Hypernatremia (2) Sepsis (3) History of CVA (cerebrovascular accident) (4) Parkinson disease (5) Feeding by G-tube (6) Dehydration Assessment KELLY, resolving, serum creatinine of 1.9 now down to 1.2 Hypernatremia, dehydration, free water deficit Sepsis Diabetes mellitus [id number] GT feeding Severe protein calorie malnutrition History of CVA History of hypertension Parkinson's disease Plan June 27: Lab reviewed. Urine sodium elevated. Renal parameters stable. Continue to administer free water for hypernatremia. June 26: Lab reviewed. Serum sodium higher. Will give D5W bolus. Continue to monitor electrolytes. June 24: Lab reviewed. Renal parameters stable. Will discontinue IV fluid. Continue her consultants. June 23: Labs reviewed. Medication list reviewed. Renal parameters stable. Blood sugar needs better control. Defer to PMD and worship leader. June 22: Clinically stable. Labs reviewed. Blood sugar elevated. Renal parameters stable. Continue blood sugar management per worship leader June 21: Patient is febrile today. Abnormal electrolytes addressed. Stable from renal standpoint of view. June 20: No chemistry panel done today. Stable from renal standpoint. Will order chemistry panel tomorrow June 19: Labs reviewed. Phosphorus supplement given. Stable from renal standpoint of view. June 18: Lab reviewed. Serum sodium lower. Creatinine 1.1. Continue current management. June 17: Lab reviewed. Sodium 160. Creatinine 1.3. Calcium lower at 9. Will continue D5W. June 16: Labs reviewed. Renal parameters stable. Serum calcium lowering. Serum sodium lowering. Serum creatinine 1.3. Another 1 L of D5W ordered. June 15: Lab reviewed. Serum sodium high. 1 L D5W given. Serum creatinine 1.4. Pamidronate given yesterday. Continue to monitor serum calcium. June 14: Lab reviewed. Serum calcium high corrected for low serum albumin. 60 mg pamidronate ID given. Continue to monitor renal parameters calcium and phosphorus. June 13: Lab reviewed. Medication list reviewed. Renal parameters stable. Will watch serum calcium and serum sodium. Chemistry panel tomorrow. June 12: Labs reviewed. Stable from renal standpoint of view. June 11: Labs reviewed. Stable renal parameters. June 10: Lab reviewed. Serum potassium normalized. Will give 1 L of D5W for high serum sodium. Continue per consultants. June 09: Labs reviewed. Discussed with RN. Serum potassium elevated. Suspect hemolysis. Will repeat serum potassium. DC all potassium supplements. June 08: Serum sodium higher. Will give 1 L of D5W. Renal parameters stable. Continue to monitor electrolytes. Continue per consultants. June 07: 1 bolus of D5W. Renal parameters stable. Serum sodium slightly high. Stable from renal standpoint of view. June 06: We will again discontinue the IV ordered. Stable from renal standpoint of view. Will start midodrine for low blood pressure. June 05: DC IV fluid. Potassium supplement given. Stable from renal standpoint to view. June 04: Potassium and magnesium supplement IV given, stable from renal standpoint of view. IV fluid D5W Monitor electrolytes Monitor renal parameters Hold blood pressure medication since blood pressure low Per orders, per consultants Subjective ROS Limited/Unobtainable: No Constitutional: Reports: malaise, weakness Objective Objective Last 24 Hour Vital Signs Date Time Temp Pulse Resp B/P (MAP) Pulse Ox O2 Delivery O2 Flow Rate FiO2 06/27/20 12:00 98.2 101 20 126/71 (89) 100 06/27/20 09:04 97 116/59 06/27/20 09:00 Room Air 06/27/20 08:00 96.6 97 20 116/59 (78) 99 06/27/20 07:41 95 06/27/20 04:00 104 06/27/20 04:00 97.5 98 20 119/64 (82) 98 06/27/20 00:00 98.2 96 20 118/66 (83) 96 06/27/20 00:00 100 06/26/20 21:00 117 125/59 06/26/20 21:00 Room Air 06/26/20 20:00 97.3 117 24 125/63 (83) 97 06/26/20 20:00 114 06/26/20 16:00 99 06/26/20 16:00 97.6 101 18 129/79 (96) 97 Intake and Output 06/26/20 06/27/20 19:00 07:00 Intake Total 800 ml 650 ml Output Total 1650 ml 350 ml Balance -850 ml 300 ml Free Water 750 ml 600 ml Tube Feeding 50 ml 50 ml Output Urine Total 1650 ml 350 ml # Bowel Movements 1 1 Laboratory Tests 06/26/20 17:15: POC Whole Blood Glucose 215H 06/27/20 08:50: White Blood Count 11.6H, Red Blood Count 3.54L, Hemoglobin 10.7L, Hematocrit 35.4L, Mean Corpuscular Volume 100H, Mean Corpuscular Hemoglobin 30.2, Mean Corpuscular Hemoglobin Concent 30.1L, Red Cell Distribution Width 17.0H, Platelet Count 269, Mean Platelet Volume 9.5, Neutrophils (%) (Auto) 68.3, Lymphocytes (%) (Auto) 17.9L, Monocytes (%) (Auto) 10.4H, Eosinophils (%) (Auto ) 2.0, Basophils (%) (Auto) 1.4, Erythrocyte Sedimentation Rate 103H, Sodium Level 156H, Potassium Level 4.0, Chloride Level 118H, Carbon Dioxide Level 31, Anion Gap 7, Blood Urea Nitrogen 34H, Creatinine 1.0, Estimat Glomerular Filtration Rate > 60, Glucose Level 101#, Calcium Level 9.4, Phosphorus Level 3.8, Magnesium Level 2.6H, Total Bilirubin 0.3, Aspartate Amino Transf (AST/SGOT ) 22, Alanine Aminotransferase (ALT/SGPT) 32, Alkaline Phosphatase 232H, C- Reactive Protein, Quantitative 17.1H, Total Protein 8.0, Albumin 1.9L, Globulin 6.1, Albumin/Globulin Ratio 0.3L Height (Feet): 5 Height (Inches): 5.00 Weight (Pounds): 123 General Appearance: no apparent distress Cardiovascular: tachycardia Respiratory/Chest: decreased breath sounds Abdomen: distended Objective No change Eddie Nelson MD Jun 27, 2020 13:14
--- NOTE | 2020-06-27 13:30 | NUR ---
RD ASSESSMENT & RECOMMENDATIONS SEE CARE ACTIVITY FOR COMPLETE ASSESSMENT DAILY ESTIMATED NEEDS: Needs based on Sepsis, DM/ 54kg 30-40 kcals/kg 7294-6716 total kcals 1.25-2 g protein/kg 68-108 g total protein 25-35ml/kcal mL/kg 4889-8632 total fluid mLs NUTRITION DIAGNOSIS: * Swallowing difficulty R/T dysphagia, as evidenced by Pt is GT dep. ENTERAL NUTRITION RECOMMENDATIONS: Glucerna 1.5 @ 50ml/hr x 24 hrs to provide 1200ml, 1800kcal, 99g prot, 911ml free water * For TF to run 24 hrs continuously, rec new goal rate of 50ml/hr x 24 hrs * HOB over 30 degrees * Without IVF, water flush 150ml q 4hrs * TF at goal meets 100% est needs. ADDITIONAL RECOMMENDATIONS: * Calibrated bedscale wt for accurate CBW * Monitor lytes daily w/ TF, replete as needed * Rec DC D5 IVF and increase H20 flush instead for BG control -> Na now wnl, BGs elevated * Wound healing: add DOMENICA BID * Watch K w/ current TF, need to change TF-> k wnl (06/27) .
--- NOTE | 2020-06-27 14:21 | NUR ---
NURSE NOTES: Pt had another episode of diarrhea. Dr. Greenwood (ID) informed, awaiting response.
--- NOTE | 2020-06-27 14:29 | NUR ---
NURSE NOTES: Received orders from Dr. Greenwood to send stool sample for cdiff. Orders noted and carried out. Sample collected and sent to lab.
[2020-06-27 16:00] VITALS: BP 141/76
--- NOTE | 2020-06-27 16:29 | NUR ---
CASE MANAGEMENT:REVIEW SI;SEPSIS. MDR PROTEUS UTI. MET ENCEPHALOPATHY. SINUS TACH. 98.2 117 24 125/59 96% ON RA WBC 11.6 NA 156 CL 118 BUN 34 MAG 2.6 ALP 232 CRP 17.1 ALB 1.9 IS;PEPCID GT BID AMANTADINE GT BID HEPARIN SUBQ Q12 ASA GT QD LOPRESSOR GT Q12 VANCOMYCIN IV Q12 ERTAPENEM IV Q24 TRANSFERRED FROM [facility] TO MED SURG MED SURG STATUS DCP;FROM [facility]
--- NOTE | 2020-06-27 16:33 | Infectious Diseases Prog Note ---
Assessment/Plan 79yo M with: COVID19 neg (06/01 rapid COVID PCR neg) Sespsis, recurrent MSSA bacteremia- - ?source- r/o endocarditis UTI, recurrent -06/23 Bcx NTD 2d echo no vegetations seen -06/21 rapid COVID PCR neg u/a wbc 5-10,nit neg, leuk +3; ucx >100k ESBL P.mirabilis Bx 12/15 MSSA CXR No acute process. Fever, recurrent; SP Leukocytosis, recurrent; SP KELLY, improving UTI, sp rx 06/01 UA w/ pyuria, UCx + P Mirabilis ESBL 06/01 BCx Neg 06/01 CXR: No acute process COVID rapid test neg H/o ESBL Proteus in UCx in Oct 2019 Renal US w/ BL cysts PMH: DM2 Parkinson's dementia Bedridden G-tube Plan: Empiric IV Vancomycin #7 for S.a ureus bactermia Ertapenem #4 (abx d #7/7) for ESBL UTI --once UTI treatment is completed- will switch above abx regimen to IV Ancef 2g q8hrs 06/24 SP MEropenem #4 06/10 SP audra #8 06/02 SP erta #1 06/01 SP cefepime, vanco, flagyl x1 in ED Monitor CBC/BMP f/u Bcx x2 CT c/abd/p w/ to eval for endocarditis D/w RN Thank you for this consult. [facility] will continue to follow. Subjective Allergies: Coded Allergies: No Known Allergies (Unverified , 08/27/19) afebrile no leukocytosis repaet BCx NTD Objective Last 24 Hour Vital Signs Date Time Temp Pulse Resp B/P (MAP) Pulse Ox O2 Delivery O2 Flow Rate FiO2 06/27/20 12:00 98.2 101 20 126/71 (89) 100 06/27/20 09:04 97 116/59 06/27/20 09:00 Room Air 06/27/20 08:00 96.6 97 20 116/59 (78) 99 06/27/20 07:41 95 06/27/20 04:00 104 06/27/20 04:00 97.5 98 20 119/64 (82) 98 06/27/20 00:00 98.2 96 20 118/66 (83) 96 06/27/20 00:00 100 06/26/20 21:00 117 125/59 06/26/20 21:00 Room Air 06/26/20 20:00 97.3 117 24 125/63 (83) 97 06/26/20 20:00 114 Height (Feet): 5 Height (Inches): 5.00 Weight (Pounds): 123 GENERAL: no apparent distress. CHEST: Lungs are clear to auscultation bilaterally without wheezes or rales. CARDIOVASCULAR: regular rhythm. S1, S2 are normal without murmurs, rubs, or gallops. ABDOMEN: Soft, nontender, and nondistended. Positive bowel sounds. No evidence of hepatosplenomegaly. EXTREMITIES: Negative for clubbing, cyanosis, or edema. Laboratory Tests Test 06/26/20 17:15 06/27/20 08:50 POC Whole Blood Glucose 215 MG/DL (74-106) H White Blood Count 11.6 K/UL (4.8-10.8) H Red Blood Count 3.54 M/UL (4.70-6.10) L Hemoglobin 10.7 G/DL (14.2-18.0) L Hematocrit 35.4 % (42.0-52.0) L Mean Corpuscular Volume 100 FL (80-99) H Mean Corpuscular Hemoglobin 30.2 PG (27.0-31.0) Mean Corpuscular Hemoglobin Concent 30.1 G/DL (32.0-36.0) L Red Cell Distribution Width 17.0 % (11.6-14.8) H Platelet Count 269 K/UL (150-450) Mean Platelet Volume 9.5 FL (6.5-10.1) Neutrophils (%) (Auto) 68.3 % (45.0-75.0) Lymphocytes (%) (Auto) 17.9 % (20.0-45.0) L Monocytes (%) (Auto) 10.4 % (1.0-10.0) H Eosinophils (%) (Auto) 2.0 % (0.0-3.0) Basophils (%) (Auto) 1.4 % (0.0-2.0) Erythrocyte Sedimentation Rate 103 MM/HR (0-20) H Sodium Level 156 MMOL/L (136-145) H Potassium Level 4.0 MMOL/L (3.5-5.1) Chloride Level 118 MMOL/L (98-107) H Carbon Dioxide Level 31 MMOL/L (21-32) Anion Gap 7 mmol/L (5-15) Blood Urea Nitrogen 34 mg/dL (7-18) H Creatinine 1.0 MG/DL (0.55-1.30) Estimat Glomerular Filtration Rate > 60 mL/min (>60) Glucose Level 101 MG/DL (74-106) # Calcium Level 9.4 MG/DL (8.5-10.1) Phosphorus Level 3.8 MG/DL (2.5-4.9) Magnesium Level 2.6 MG/DL (1.8-2.4) H Total Bilirubin 0.3 MG/DL (0.2-1.0) Aspartate Amino Transf (AST/SGOT) 22 U/L (15-37) Alanine Aminotransferase (ALT/SGPT) 32 U/L (12-78) Alkaline Phosphatase 232 U/L (46-116) H C-Reactive Protein, Quantitative 17.1 mg/dL (0.00-0.90) H Total Protein 8.0 G/DL (6.4-8.2) Albumin 1.9 G/DL (3.4-5.0) L Globulin 6.1 g/dL Albumin/Globulin Ratio 0.3 (1.0-2.7) L Current Medications Medications (Trade) Dose Ordered Sig/Debi Route PRN Reason Start Time Stop Time Status Last Admin Dose Admin Acetaminophen (Tylenol) 650 mg Q6H PRN GT Mild Pain (Pain Scale 1-3) 06/27/20 11:00 07/02/20 10:59 Amantadine HCl (Symmetrel) 100 mg TWICE A DAY GT 06/27/20 18:00 07/02/20 08:59 Aspirin (ASA) 81 mg DAILY GT 06/28/20 09:00 07/17/20 08:59 Dextrose (Dextrose 50%) 25 ml Q30M PRN IV Hypoglycemia 06/27/20 10:30 09/20/20 06:59 Dextrose (Dextrose 50%) 50 ml Q30M PRN IV Hypoglycemia 06/27/20 10:30 09/20/20 06:59 Ertapenem 1 gm/ Sodium Chloride 55 ml @ 110 mls/hr Q24H IVPB 06/27/20 17:00 06/29/20 16:59 Famotidine (Pepcid) 20 mg BID GT 06/27/20 18:00 09/01/20 17:59 Heparin Sodium (Porcine) (Heparin 5000 units/ml) 5,000 units EVERY 12 HOURS SUBQ 06/27/20 21:00 07/17/20 08:59 Insulin Aspart (NovoLOG) Q6HR SUBQ 06/27/20 12:00 09/09/20 17:59 Insulin Detemir (Levemir) 30 units EVERY 12 HOURS SUBQ 06/27/20 21:00 09/09/20 20:59 Metoprolol Tartrate (Lopressor) 25 mg Q12HR GT 06/27/20 21:00 09/20/20 08:59 Midodrine (Pro-Amatine) 2.5 mg TIDPRN PRN GT blood pressure below 100 sbp 06/27/20 11:00 09/11/20 10:59 Pravastatin Sodium (Pravachol) 20 mg BEDTIME GT 06/27/20 21:00 07/02/20 20:59 Sennosides (Senokot) 8.6 mg DAILY GT 06/28/20 09:00 07/02/20 08:59 Vancomycin HCl (Vanco pharmacy to dose) 1 ea DAILY PRN MISC Per rx protocol 06/27/20 11:00 07/27/20 10:59 Vancomycin HCl 1 gm/Sodium Chloride 275 ml @ 183.708 mls/hr Q12HR@0800,2000 IVPB 06/27/20 20:00 06/29/20 19:59 Blaire Greenwood M.D. Jun 27, 2020 16:33
[2020-06-27] MEDS ORDERED: Omnipaque-300 100ml vial INJ PRN (16:45)
--- NOTE | 2020-06-27 16:45 | Surgery Progress Note ---
Surgery Progress Note Subjective Symptoms: improved, tolerating diet, passing flatus, BM Objective Last 24 Hour Vital Signs Date Time Temp Pulse Resp B/P (MAP) Pulse Ox O2 Delivery O2 Flow Rate FiO2 06/27/20 12:00 98.2 101 20 126/71 (89) 100 06/27/20 09:04 97 116/59 06/27/20 09:00 Room Air 06/27/20 08:00 96.6 97 20 116/59 (78) 99 06/27/20 07:41 95 06/27/20 04:00 104 06/27/20 04:00 97.5 98 20 119/64 (82) 98 06/27/20 00:00 98.2 96 20 118/66 (83) 96 06/27/20 00:00 100 06/26/20 21:00 117 125/59 06/26/20 21:00 Room Air 06/26/20 20:00 97.3 117 24 125/63 (83) 97 06/26/20 20:00 114 I&O Intake and Output 06/26/20 06/27/20 19:00 07:00 Intake Total 800 ml 650 ml Output Total 1650 ml 350 ml Balance -850 ml 300 ml Free Water 750 ml 600 ml Tube Feeding 50 ml 50 ml Output Urine Total 1650 ml 350 ml # Bowel Movements 1 1 Dressing: saturated Cardiovascular: RSR Respiratory: decreased breath sounds Abdomen: soft, non-tender, present bowel sounds Extremities: no tenderness, no cyanosis Laboratory Tests Test 06/26/20 17:15 06/27/20 08:50 POC Whole Blood Glucose 215 MG/DL (74-106) H White Blood Count 11.6 K/UL (4.8-10.8) H Red Blood Count 3.54 M/UL (4.70-6.10) L Hemoglobin 10.7 G/DL (14.2-18.0) L Hematocrit 35.4 % (42.0-52.0) L Mean Corpuscular Volume 100 FL (80-99) H Mean Corpuscular Hemoglobin 30.2 PG (27.0-31.0) Mean Corpuscular Hemoglobin Concent 30.1 G/DL (32.0-36.0) L Red Cell Distribution Width 17.0 % (11.6-14.8) H Platelet Count 269 K/UL (150-450) Mean Platelet Volume 9.5 FL (6.5-10.1) Neutrophils (%) (Auto) 68.3 % (45.0-75.0) Lymphocytes (%) (Auto) 17.9 % (20.0-45.0) L Monocytes (%) (Auto) 10.4 % (1.0-10.0) H Eosinophils (%) (Auto) 2.0 % (0.0-3.0) Basophils (%) (Auto) 1.4 % (0.0-2.0) Erythrocyte Sedimentation Rate 103 MM/HR (0-20) H Sodium Level 156 MMOL/L (136-145) H Potassium Level 4.0 MMOL/L (3.5-5.1) Chloride Level 118 MMOL/L (98-107) H Carbon Dioxide Level 31 MMOL/L (21-32) Anion Gap 7 mmol/L (5-15) Blood Urea Nitrogen 34 mg/dL (7-18) H Creatinine 1.0 MG/DL (0.55-1.30) Estimat Glomerular Filtration Rate > 60 mL/min (>60) Glucose Level 101 MG/DL (74-106) # Calcium Level 9.4 MG/DL (8.5-10.1) Phosphorus Level 3.8 MG/DL (2.5-4.9) Magnesium Level 2.6 MG/DL (1.8-2.4) H Total Bilirubin 0.3 MG/DL (0.2-1.0) Aspartate Amino Transf (AST/SGOT) 22 U/L (15-37) Alanine Aminotransferase (ALT/SGPT) 32 U/L (12-78) Alkaline Phosphatase 232 U/L (46-116) H C-Reactive Protein, Quantitative 17.1 mg/dL (0.00-0.90) H Total Protein 8.0 G/DL (6.4-8.2) Albumin 1.9 G/DL (3.4-5.0) L Globulin 6.1 g/dL Albumin/Globulin Ratio 0.3 (1.0-2.7) L Plan Problems: (1) Hypernatremia (2) Dehydration (3) Hip fracture, left (4) Diabetes mellitus (5) History of hypertension (6) Severe protein-calorie malnutrition Assessment & Plan: DAILY ESTIMATED NEEDS: Needs based on Sepsis, DM/ 54kg 30-40 kcals/kg 8868-4011 total kcals 1.25-2 g protein/kg 68-108 g total protein 25-35ml/kcal mL/kg 4414-4671 total fluid mLs NUTRITION DIAGNOSIS: * Swallowing difficulty R/T dysphagia, as evidenced by Pt is GT dep. (CURRENT TF: Glucerna 1.5 @ 30ml/hr x 24 hrs) ENTERAL NUTRITION RECOMMENDATIONS: Glucerna 1.5 @ 60ml/hr x 20 hrs to provide 1200ml, 1800kcal, 99g prot, 911ml free water, 160g carbs * Rec to INCREASE TF GOAL to 60ml/hr for 20 hrs * HOB over 30 degrees, increased water flushes * TF at goal meets 100% est needs. -------- ADDITIONAL RECOMMENDATIONS: * Calibrated bedscale wt for accurate CBW * Monitor lytes daily w/ TF, replete as needed * Pt may require increase in insulin regimen for improved BG W/ continuous TF infusion * Wound healing: DOMENICA BID, F/up w/ WC eval . (7) Acute encephalopathy (8) Pressure Ulcer Of Sacral Region, Unstageable Assessment & Plan: Pt presented on admission with purple and indurated area at Sacrococcygeal at previously compromised site(L)7cm x (W)3cm.Surrounding Hyperpigmentation at Sacrum. Non-Blanching erythema without fluctuance R heel. Non-Blanching erythema with delineated margins L heel (L)4.5cm x (W)5.5cm. L Heel is boggy . Tx.Plan: Apply Moisture Barrier Paste to Sacrum. Cover with Optifoam drsgs. Change every 3 days and prn. Apply Cavilon Skin Barrier to R and L trochanter. Cover each site with Optifoam drsgs. Change every 7 days and prn. Apply Cavilon Skin Barrier to each heel and malleoli. Cover each site with Optifoam drsgs. Change every 7 days and prn. Reposition at least every 2hours or as tolerated. Off-load heels with pillow. improving cont current care tube site okay (9) Feeding by G-tube (10) Abdominal distention (11) Multiple drug resistant organism (MDRO) culture positive (12) Sepsis (13) History of CVA (cerebrovascular accident) (14) Parkinson disease (15) Staphylococcus aureus bacteremia Assessment & Plan: repeat blood cultures negative on abx unlikely source of bacteremia from wounds. will monitor cont local wound care improving leukocytosis James Breen Jun 27, 2020 16:44
[2020-06-27] MEDS ORDERED: Ertapenem 1 GM in NS 55 ML IVPB SCH (17:00)
--- NOTE | 2020-06-27 17:17 | NUR ---
DISCHARGE PLANNING PATIENT HAS BEEN REFERRED BACK TO [facility] P: [phone] F: [phone]
--- NOTE | 2020-06-27 18:40 | Internal Med Progress Note ---
Subjective Date of Service: Jun 27, 2020 Physician Name JordynTello Attending Physician Cirilo Rome MD Current Medications Medications (Trade) Dose Ordered Sig/Debi Route PRN Reason Start Time Stop Time Status Last Admin Dose Admin Acetaminophen (Tylenol) 650 mg Q6H PRN GT Mild Pain (Pain Scale 1-3) 06/27/20 11:00 07/02/20 10:59 Amantadine HCl (Symmetrel) 100 mg TWICE A DAY GT 06/27/20 18:00 07/02/20 08:59 06/27/20 17:36 Aspirin (ASA) 81 mg DAILY GT 06/28/20 09:00 07/17/20 08:59 Barium Sulfate (Readi-Cat 2) 450 ml NOW PRN ORAL Radiology Procedure 06/27/20 16:45 06/29/20 16:32 Dextrose (Dextrose 50%) 25 ml Q30M PRN IV Hypoglycemia 06/27/20 10:30 09/20/20 06:59 Dextrose (Dextrose 50%) 50 ml Q30M PRN IV Hypoglycemia 06/27/20 10:30 09/20/20 06:59 Ertapenem 1 gm/ Sodium Chloride 55 ml @ 110 mls/hr Q24H IVPB 06/27/20 17:00 06/29/20 16:59 Famotidine (Pepcid) 20 mg BID GT 06/27/20 18:00 09/01/20 17:59 06/27/20 17:36 Heparin Sodium (Porcine) (Heparin 5000 units/ml) 5,000 units EVERY 12 HOURS SUBQ 06/27/20 21:00 07/17/20 08:59 Insulin Aspart (NovoLOG) Q6HR SUBQ 06/27/20 12:00 09/09/20 17:59 Insulin Detemir (Levemir) 30 units EVERY 12 HOURS SUBQ 06/27/20 21:00 09/09/20 20:59 Iohexol (OMNIPAQUE-300 100ml) 100 ml ONCE PRN INJ radiology use 06/27/20 16:45 06/29/20 16:44 Metoprolol Tartrate (Lopressor) 25 mg Q12HR GT 06/27/20 21:00 09/20/20 08:59 Midodrine (Pro-Amatine) 2.5 mg TIDPRN PRN GT blood pressure below 100 sbp 06/27/20 11:00 09/11/20 10:59 Pravastatin Sodium (Pravachol) 20 mg BEDTIME GT 06/27/20 21:00 07/02/20 20:59 Sennosides (Senokot) 8.6 mg DAILY GT 06/28/20 09:00 07/02/20 08:59 Vancomycin HCl (Vanco pharmacy to dose) 1 ea DAILY PRN MISC Per rx protocol 06/27/20 11:00 07/27/20 10:59 Vancomycin HCl 1 gm/Sodium Chloride 275 ml @ 183.708 mls/hr Q12HR@0800,1999 IVPB 06/27/20 20:00 06/29/20 19:59 Allergies: Coded Allergies: No Known Allergies (Unverified , 08/27/19) ROS Limited/Unobtainable: Yes Subjective 79 YO M admitted with hyperglycemia and hypernatremia. Now UTI. Cover for Int Dusty-Dr Rome Objective Last Vital Signs Date Time Temp Pulse Resp B/P (MAP) Pulse Ox O2 Delivery O2 Flow Rate FiO2 06/27/20 16:00 98.7 110 21 141/76 (97) 100 06/27/20 09:00 Room Air Laboratory Tests Test 06/27/20 08:50 White Blood Count 11.6 K/UL (4.8-10.8) H Red Blood Count 3.54 M/UL (4.70-6.10) L Hemoglobin 10.7 G/DL (14.2-18.0) L Hematocrit 35.4 % (42.0-52.0) L Mean Corpuscular Volume 100 FL (80-99) H Mean Corpuscular Hemoglobin 30.2 PG (27.0-31.0) Mean Corpuscular Hemoglobin Concent 30.1 G/DL (32.0-36.0) L Red Cell Distribution Width 17.0 % (11.6-14.8) H Platelet Count 269 K/UL (150-450) Mean Platelet Volume 9.5 FL (6.5-10.1) Neutrophils (%) (Auto) 68.3 % (45.0-75.0) Lymphocytes (%) (Auto) 17.9 % (20.0-45.0) L Monocytes (%) (Auto) 10.4 % (1.0-10.0) H Eosinophils (%) (Auto) 2.0 % (0.0-3.0) Basophils (%) (Auto) 1.4 % (0.0-2.0) Erythrocyte Sedimentation Rate 103 MM/HR (0-20) H Sodium Level 156 MMOL/L (136-145) H Potassium Level 4.0 MMOL/L (3.5-5.1) Chloride Level 118 MMOL/L (98-107) H Carbon Dioxide Level 31 MMOL/L (21-32) Anion Gap 7 mmol/L (5-15) Blood Urea Nitrogen 34 mg/dL (7-18) H Creatinine 1.0 MG/DL (0.55-1.30) Estimat Glomerular Filtration Rate > 60 mL/min (>60) Glucose Level 101 MG/DL (74-106) # Calcium Level 9.4 MG/DL (8.5-10.1) Phosphorus Level 3.8 MG/DL (2.5-4.9) Magnesium Level 2.6 MG/DL (1.8-2.4) H Total Bilirubin 0.3 MG/DL (0.2-1.0) Aspartate Amino Transf (AST/SGOT) 22 U/L (15-37) Alanine Aminotransferase (ALT/SGPT) 32 U/L (12-78) Alkaline Phosphatase 232 U/L (46-116) H C-Reactive Protein, Quantitative 17.1 mg/dL (0.00-0.90) H Total Protein 8.0 G/DL (6.4-8.2) Albumin 1.9 G/DL (3.4-5.0) L Globulin 6.1 g/dL Albumin/Globulin Ratio 0.3 (1.0-2.7) L Intake and Output 06/26/20 06/27/20 19:00 07:00 Intake Total 800 ml 650 ml Output Total 1650 ml 350 ml Balance -850 ml 300 ml Free Water 750 ml 600 ml Tube Feeding 50 ml 50 ml Output Urine Total 1650 ml 350 ml # Bowel Movements 1 1 Objective PHYSICAL EXAMINATION: GENERAL: The patient is a well-developed, well-nourished, thin-appearing, male, in no apparent distress. HEENT: Eyes, pupils equal and responsive to light and accommodation. Extraocular movements are intact. NECK: Supple without lymphadenopathy. CHEST: Lungs are clear to auscultation bilaterally without wheezes or rales. CARDIOVASCULAR: Slightly tachycardic, regular rhythm. S1, S2 are normal without murmurs, rubs, or gallops. ABDOMEN: Soft, nontender, and nondistended. Positive bowel sounds. No evidence of hepatosplenomegaly. Currently, no rebound or guarding noted. EXTREMITIES: Negative for clubbing, cyanosis, or edema. RECTAL: Not performed. GENITAL: Not performed. NEUROLOGIC: Cranial nerves II through XII are grossly intact without focal deficits. Assessment/Plan Assessment/Plan ASSESSMENT: This is a 79-year-old male with: 1. Hyperglycemia. 2. Hypernatremia. 3. Urinary tract infection=MDR proteus. 4. Diabetes type 2. 5. Hypertension. 6. Hypercholesterolemia. 7. Dysphagia. 8. Parkinson disease. 9. Ulcerative proctitis. 10. Protein-calorie malnutrition. 11. History of sacral decubitus ulcer stage IV. 12. Benign prostatic hypertrophy. 13. Gastroesophageal reflux disease. 14. Metabolic encephalopathy. 15. History of left hip fracture. 16. sepsis=staph aureus TREATMENT: 1. Hyperglycemia/diabetes. The patient has been placed on a protocol using NovoLog sliding scale. The patient's blood sugars have been running in 300s. Hyperglycemia may be secondary to urinary tract infection. 2. Urinary tract infection. Urine culture =MDR proteus. ABX= ertapenem and vancomycin results.ID=Dr Oliva 3. Hypertension. Continue amlodipine as above. 4. Hypercholesterolemia. Continue atorvastatin as above. 5. Dysphagia. The patient is status post PEG placement. 6. Parkinson disease. Continue amantadine as above. 7. Ulcerative proctitis. 8. Protein-calorie malnutrition. 9. Sacral decubitus ulcer stage IV. 10. Benign prostatic hypertrophy. Continue tamsulosin as above. 11. Gastroesophageal reflux disease. 12. Metabolic encephalopathy. 13. History of left hip fracture. 14. R/O endocarditis Tello Cobb MD Jun 27, 2020 18:40
--- NOTE | 2020-06-27 19:30 | NUR ---
NURSE NOTES: Patient in bed, calm,no signs of pain, on room air, no SOB noted. With IV access on the left arm. With Adams catheter intact and draining well. Call light in reach. Bed in lowest, lock engaged and alarm on. Will continue plan of care..
--- NOTE | 2020-06-27 19:30 | NUR ---
NURSE HAND-OFF: Important Events on Shift: Diarrhea x3, stool sent for cdiff, hold GT feeds post midnight, pt for CT Ab/pelvis, unable to contact NOK for consent, endorsed Patient Status: Stable Diet: GTF Pending Orders: CT Abdomen/pelvis with contrast Pending Results/Labs: Pending MD notification: Latest Vital Signs: Temperature 98.7 , Pulse 110 , B/P 141 /76 , Respiratory Rate 21 , O2 SAT 100 , Room Air, O2 Flow Rate 3.0 . Vital Sign Comment: Latest Lane Fall Score: 55 Fall Risk: High Risk Safety Measures: Call light Within Reach, Bed Alarm Zone 1, Side Rails Side Rails x3, Bed position Low and Locked. Fall Precautions: Yellow Socks Yellow Gown Door Sign Report given to Shea TURNER.
[2020-06-27 20:00] VITALS: BP 138/75
[2020-06-27] MEDS ORDERED: Vancomycin 1 GM in NS 275 ML IVPB SCH (20:00)
--- NOTE | 2020-06-27 20:40 | NUR ---
NURSE NOTES: Called Mamadou Quinonez's contact number on the face sheet regarding consent for contrast on patient's procedure tomorrow but no answer. Called Kendell Gordon but he said "NO". Charge nurse made aware.
[2020-06-27] MEDS ORDERED: Levemir Flexpen SUBQ SCH (21:00)
[2020-06-28] VITALS: BP 107/62
[2020-06-28 04:00] VITALS: BP 112/68
[2020-06-28] MEDS: NovoLOG Insulin Flexpen SUBQ SCH ×5 (05:37→21:00)
--- NOTE | 2020-06-28 06:30 | General Progress Note ---
Assessment/Plan Problem List: (1) Hypernatremia ICD Codes: E87.0 - Hyperosmolality and hypernatremia SNOMED: 291611728 (2) Feeding by G-tube ICD Codes: Z93.1 - Gastrostomy status SNOMED: 483828764, 073433173, 404571960 (3) Diabetes mellitus ICD Codes: E11.9 - Type 2 diabetes mellitus without complications SNOMED: 70154262 (4) History of CVA (cerebrovascular accident) ICD Codes: Z86.73 - Personal history of transient ischemic attack (TIA), and cerebral infarction without residual deficits SNOMED: 373771251 (5) Parkinson disease ICD Codes: G20 - Parkinson's disease SNOMED: 34218434 Assessment/Plan: reduce Levemir to 13 units bid continue Novolog sliding scale high dose every 6 hours Subjective Allergies: Coded Allergies: No Known Allergies (Unverified , 08/27/19) Subjective events noted and interval notes reviewed glucose values are trending down Item Value Date Time Bedside Blood Glucose 86 mg/dl 06/28/20 0537 Bedside Blood Glucose 121 mg/dl H 06/28/20 0000 Bedside Blood Glucose 111 mg/dl 06/27/20 2054 Bedside Blood Glucose 172 mg/dl H 06/27/20 1852 Bedside Blood Glucose 73 mg/dl 06/27/20 1200 Bedside Blood Glucose 84 mg/dl 06/27/20 0900 Bedside Blood Glucose 91 mg/dl 06/27/20 0600 Bedside Blood Glucose 125 mg/dl H 06/27/20 0000 Objective Last 24 Hour Vital Signs Date Time Temp Pulse Resp B/P (MAP) Pulse Ox O2 Delivery O2 Flow Rate FiO2 06/28/20 00:00 97.5 81 20 107/62 (77) 96 06/27/20 22:11 98.6 90 22 97 06/27/20 21:22 100.0 06/27/20 21:00 Room Air 06/27/20 20:51 131 138/75 06/27/20 20:00 101.8 131 26 138/75 (96) 97 06/27/20 16:00 98.7 110 21 141/76 (97) 100 06/27/20 12:00 98.2 101 20 126/71 (89) 100 06/27/20 09:04 97 116/59 06/27/20 09:00 Room Air 06/27/20 08:00 96.6 97 20 116/59 (78) 99 06/27/20 07:41 95 Intake and Output 06/27/20 06/28/20 19:00 07:00 Intake Total 275.000 ml Output Total 2100 ml Balance -1825.000 ml IV Total 275.000 ml Output Urine Total 2100 ml # Bowel Movements 1 Laboratory Tests 06/27/20 08:50: White Blood Count 11.6H, Red Blood Count 3.54L, Hemoglobin 10.7L, Hematocrit 35.4L, Mean Corpuscular Volume 100H, Mean Corpuscular Hemoglobin 30.2, Mean Corpuscular Hemoglobin Concent 30.1L, Red Cell Distribution Width 17.0H, Platelet Count 269, Mean Platelet Volume 9.5, Neutrophils (%) (Auto) 68.3, Lymphocytes (%) (Auto) 17.9L, Monocytes (%) (Auto) 10.4H, Eosinophils (%) (Auto ) 2.0, Basophils (%) (Auto) 1.4, Erythrocyte Sedimentation Rate 103H, Sodium Level 156H, Potassium Level 4.0, Chloride Level 118H, Carbon Dioxide Level 31, Anion Gap 7, Blood Urea Nitrogen 34H, Creatinine 1.0, Estimat Glomerular Filtration Rate > 60, Glucose Level 101#, Calcium Level 9.4, Phosphorus Level 3.8, Magnesium Level 2.6H, Total Bilirubin 0.3, Aspartate Amino Transf (AST/SGOT ) 22, Alanine Aminotransferase (ALT/SGPT) 32, Alkaline Phosphatase 232H, C- Reactive Protein, Quantitative 17.1H, Total Protein 8.0, Albumin 1.9L, Globulin 6.1, Albumin/Globulin Ratio 0.3L 06/27/20 19:10: Vancomycin Level Trough 33.7H 06/28/20 04:50: White Blood Count [Pending], Red Blood Count [Pending], Hemoglobin [Pending], Hematocrit [Pending], Mean Corpuscular Volume [Pending], Mean Corpuscular Hemoglobin [Pending], Mean Corpuscular Hemoglobin Concent [Pending], Red Cell Distribution Width [Pending], Platelet Count [Pending], Mean Platelet Volume [ Pending], Neutrophils (%) (Auto) [Pending], Lymphocytes (%) (Auto) [Pending], Monocytes (%) (Auto) [Pending], Eosinophils (%) (Auto) [Pending], Basophils (%) (Auto) [Pending], Erythrocyte Sedimentation Rate [Pending], Sodium Level [ Pending], Potassium Level [Pending], Chloride Level [Pending], Carbon Dioxide Level [Pending], Blood Urea Nitrogen [Pending], Creatinine [Pending], Estimat Glomerular Filtration Rate [Pending], Glucose Level [Pending], Calcium Level [ Pending], Phosphorus Level [Pending], Magnesium Level [Pending], Total Bilirubin [Pending], Aspartate Amino Transf (AST/SGOT) [Pending], Alanine Aminotransferase (ALT/SGPT) [Pending], Alkaline Phosphatase [Pending], C- Reactive Protein, Quantitative [Pending], Total Protein [Pending], Albumin [ Pending], Globulin [Pending] Height (Feet): 5 Height (Inches): 5.00 Weight (Pounds): 123 General Appearance: no apparent distress Neck: normal alignment Cardiovascular: normal peripheral pulses Respiratory/Chest: decreased breath sounds Abdomen: normal bowel sounds Objective Current Medications Medications (Trade) Dose Ordered Sig/Debi Route PRN Reason Start Time Stop Time Status Last Admin Dose Admin Acetaminophen (Tylenol) 650 mg Q6H PRN GT Mild Pain (Pain Scale 1-3) 06/27/20 11:00 07/02/20 10:59 06/27/20 20:52 Amantadine HCl (Symmetrel) 100 mg TWICE A DAY GT 06/27/20 18:00 07/02/20 08:59 06/27/20 17:36 Aspirin (ASA) 81 mg DAILY GT 06/28/20 09:00 07/17/20 08:59 Barium Sulfate (Readi-Cat 2) 450 ml NOW PRN ORAL Radiology Procedure 06/27/20 16:45 06/29/20 16:32 Dextrose (Dextrose 50%) 25 ml Q30M PRN IV Hypoglycemia 06/27/20 10:30 09/20/20 06:59 Dextrose (Dextrose 50%) 50 ml Q30M PRN IV Hypoglycemia 06/27/20 10:30 09/20/20 06:59 Ertapenem 1 gm/ Sodium Chloride 55 ml @ 110 mls/hr Q24H IVPB 06/27/20 17:00 06/29/20 16:59 06/27/20 18:46 Famotidine (Pepcid) 20 mg BID GT 06/27/20 18:00 09/01/20 17:59 06/27/20 17:36 Heparin Sodium (Porcine) (Heparin 5000 units/ml) 5,000 units EVERY 12 HOURS SUBQ 06/27/20 21:00 07/17/20 08:59 06/27/20 20:53 Insulin Aspart (NovoLOG) Q6HR SUBQ 06/27/20 12:00 09/09/20 17:59 06/27/20 18:52 Insulin Detemir (Levemir) 30 units EVERY 12 HOURS SUBQ 06/27/20 21:00 09/09/20 20:59 06/27/20 20:54 Iohexol (OMNIPAQUE-300 100ml) 100 ml ONCE PRN INJ radiology use 06/27/20 16:45 06/29/20 16:44 Metoprolol Tartrate (Lopressor) 25 mg Q12HR GT 06/27/20 21:00 09/20/20 08:59 06/27/20 20:51 Midodrine (Pro-Amatine) 2.5 mg TIDPRN PRN GT blood pressure below 100 sbp 06/27/20 11:00 09/11/20 10:59 Pravastatin Sodium (Pravachol) 20 mg BEDTIME GT 06/27/20 21:00 07/02/20 20:59 06/27/20 20:51 Sennosides (Senokot) 8.6 mg DAILY GT 06/28/20 09:00 07/02/20 08:59 Vancomycin HCl (Vanco pharmacy to dose) 1 ea DAILY PRN MISC Per rx protocol 06/27/20 11:00 07/27/20 10:59 Vancomycin/Sodium Chloride 275 ml @ 183.333 mls/hr Q24H IVPB 06/28/20 09:00 07/03/20 08:59 Gregory Pastrana MD Jun 28, 2020 06:29
[2020-06-28 06:34] LABS: EOSINOPHILS % (AUTO) 0.9 % (0.0-3.0); HEMATOCRIT 37.7 % (42.0-52.0); HEMOGLOBIN 11.4 G/DL (14.2-18.0); LYMPHOCYTES % (AUTO) 19.4 % (20.0-45.0); MEAN CORPUSCULAR VOLUME 96 FL (80-99); MONOCYTES % (AUTO) 7.6 % (1.0-10.0); NEUTROPHILS % (AUTO) 71.1 % (45.0-75.0); PLATELET COUNT 364 K/UL (150-450); RED BLOOD COUNT 3.92 M/UL (4.70-6.10); RED CELL DISTRIBUTION WIDTH 15.9 % (11.6-14.8); WHITE BLOOD COUNT 17.9 K/UL (4.8-10.8)
[2020-06-28 06:51] LABS: ALANINE AMINOTRANSFERASE 33 U/L (12-78); ALBUMIN/GLOBULIN RATIO 0.3 (1.0-2.7); ALKALINE PHOSPHATASE 247 U/L (46-116); ANION GAP 10 mmol/L (5-15); ASPARTATE AMINO TRANSFERASE 25 U/L (15-37); BILIRUBIN,TOTAL 0.3 MG/DL (0.2-1.0); BLOOD UREA NITROGEN 34 mg/dL (7-18); CALCIUM 9.2 MG/DL (8.5-10.1); CARBON DIOXIDE 30 MMOL/L (21-32); CHLORIDE 121 MMOL/L (98-107); CREATININE 1.2 MG/DL (0.55-1.30); PHOSPHORUS 4.1 MG/DL (2.5-4.9); POTASSIUM 4.1 MMOL/L (3.5-5.1)
[2020-06-28 07:16] LABS: SODIUM 162 MMOL/L (136-145)
--- NOTE | 2020-06-28 07:59 | NUR ---
NURSE NOTES: Received report from JOHNNY Valdivia. Patient observed to be awake, alert, and oriented x4. Seen with HOB elevated, currently on room air, no s/sx of SOB/Distress, no c/p any pain or gi/gu discomfort at the moment. Patient currently on clear liquid diet. With IV line located on RFA g20. Asymptomatic, inplace and intact. With dialysis site located on right subclavian permacath. Bed placed on lowest and locked position, call light placed within reach and will continue to monitor. Addendum: 06/28/20 at 0804 by Maria Del Carmen Bailon RN wrong patient.
[2020-06-28 08:00] VITALS: BP 124/78
--- NOTE | 2020-06-28 08:04 | NUR ---
NURSE HAND-OFF: Important Events on Shift:Wound care, No consent given for contrast material, NPO post midnight, accucheck Patient Status: stable Diet: NPO post midnight / tube feeding glucerna 1.5@50 Pending Orders: am labs Pending Results/Labs:crp, cbc, cmp, srw, mg, phos Pending MD notification: Latest Vital Signs: Temperature 98.9 , Pulse 99 , B/P 112 /68 , Respiratory Rate 20 , O2 SAT 93 , Room Air, O2 Flow Rate 3.0 . Vital Sign Comment: Latest Lane Fall Score: 55 Fall Risk: High Risk Safety Measures: Call light Within Reach, Bed Alarm Zone 1, Side Rails Side Rails x3, Bed position Low and Locked. Fall Precautions: Yellow Socks Yellow Gown Door Sign Report given to JOHNNY Joyce.
--- NOTE | 2020-06-28 08:05 | NUR ---
NURSE NOTES: Received report from JOHNNY Valdivia. Patient observed to be awake, alert and oriented x1. HOB elevated, currently on room air. No s/sx of SOB/Distress, no s/sx of any discomfort. Patient with GT. inplace and intact. Currently on hold d/t scheduled procedure CT Scan abd/pelvis. Still awaiting consent. Iv site located on LAC gauge 22. Asymptomatic, inplace and intact. Bed placed on lowest and locked position, call light placed within reach. Will continue to monitor.
--- NOTE | 2020-06-28 08:09 | NUR ---
Received critical lab Sodium 162. Notified Dr. Rome, new order of 1/2 NS at 75ml x 1 Liter and increase H20 flush to 250 ml every 8 hours. Orders noted and carried out.
[2020-06-28] MEDS: Amantadine 100mg cap GT SCH ×2 (08:53→17:13)
[2020-06-28] MEDS: Aspirin Baby 81mg GT SCH (08:54)
[2020-06-28] MEDS: Sennosides 8.6mg tab GT SCH (08:54)
[2020-06-28] MEDS: Heparin 5000 units/ml inj SUBQ SCH ×2 (08:55→22:13)
[2020-06-28] MEDS: Levemir Flexpen SUBQ SCH ×2 (09:00→21:00)
[2020-06-28] MEDS ORDERED: Vancomycin 1.25gm/NS Premix IVPB SCH (09:00)
--- NOTE | 2020-06-28 09:42 | Nephrology Progress Note ---
Assessment/Plan Problem List: (1) Hypernatremia (2) Sepsis (3) History of CVA (cerebrovascular accident) (4) Parkinson disease (5) Feeding by G-tube (6) Dehydration Assessment KELLY, resolving, serum creatinine of 1.9 now down to 1.2 Hypernatremia, dehydration, free water deficit Sepsis Diabetes mellitus [id number] GT feeding Severe protein calorie malnutrition History of CVA History of hypertension Parkinson's disease Plan June 28: Lab reviewed. Discussed with RN. Serum sodium higher. Will start 150 cc an hour D5W. Patient off feeding waiting for a CT of the abdomen. Continue to monitor electrolytes. Try to keep the blood sugar in check. June 27: Lab reviewed. Urine sodium elevated. Renal parameters stable. Continue to administer free water for hypernatremia. June 26: Lab reviewed. Serum sodium higher. Will give D5W bolus. Continue to monitor electrolytes. June 24: Lab reviewed. Renal parameters stable. Will discontinue IV fluid. Continue her consultants. June 23: Labs reviewed. Medication list reviewed. Renal parameters stable. Blood sugar needs better control. Defer to PMD and clamp remover. June 22: Clinically stable. Labs reviewed. Blood sugar elevated. Renal parameters stable. Continue blood sugar management per clamp remover June 21: Patient is febrile today. Abnormal electrolytes addressed. Stable from renal standpoint of view. June 20: No chemistry panel done today. Stable from renal standpoint. Will order chemistry panel tomorrow June 19: Labs reviewed. Phosphorus supplement given. Stable from renal standpoint of view. June 18: Lab reviewed. Serum sodium lower. Creatinine 1.1. Continue current management. June 17: Lab reviewed. Sodium 160. Creatinine 1.3. Calcium lower at 9. Will continue D5W. June 16: Labs reviewed. Renal parameters stable. Serum calcium lowering. Serum sodium lowering. Serum creatinine 1.3. Another 1 L of D5W ordered. June 15: Lab reviewed. Serum sodium high. 1 L D5W given. Serum creatinine 1.4. Pamidronate given yesterday. Continue to monitor serum calcium. June 14: Lab reviewed. Serum calcium high corrected for low serum albumin. 60 mg pamidronate ID given. Continue to monitor renal parameters calcium and phosphorus. June 13: Lab reviewed. Medication list reviewed. Renal parameters stable. Will watch serum calcium and serum sodium. Chemistry panel tomorrow. June 12: Labs reviewed. Stable from renal standpoint of view. June 11: Labs reviewed. Stable renal parameters. June 10: Lab reviewed. Serum potassium normalized. Will give 1 L of D5W for high serum sodium. Continue per consultants. June 09: Labs reviewed. Discussed with RN. Serum potassium elevated. Suspect hemolysis. Will repeat serum potassium. DC all potassium supplements. June 08: Serum sodium higher. Will give 1 L of D5W. Renal parameters stable. Continue to monitor electrolytes. Continue per consultants. June 07: 1 bolus of D5W. Renal parameters stable. Serum sodium slightly high. Stable from renal standpoint of view. June 06: We will again discontinue the IV ordered. Stable from renal standpoint of view. Will start midodrine for low blood pressure. June 05: DC IV fluid. Potassium supplement given. Stable from renal standpoint to view. June 04: Potassium and magnesium supplement IV given, stable from renal standpoint of view. IV fluid D5W Monitor electrolytes Monitor renal parameters Hold blood pressure medication since blood pressure low Per orders, per consultants Subjective ROS Limited/Unobtainable: No Constitutional: Reports: malaise Objective Objective Last 24 Hour Vital Signs Date Time Temp Pulse Resp B/P (MAP) Pulse Ox O2 Delivery O2 Flow Rate FiO2 06/28/20 08:54 117 124/78 06/28/20 08:00 97.6 117 19 124/78 (93) 97 06/28/20 04:00 98.9 99 20 112/68 (83) 93 06/28/20 00:00 97.5 81 20 107/62 (77) 96 06/27/20 22:11 98.6 90 22 97 06/27/20 21:22 100.0 06/27/20 21:00 Room Air 06/27/20 20:51 131 138/75 06/27/20 20:00 101.8 131 26 138/75 (96) 97 06/27/20 16:00 98.7 110 21 141/76 (97) 100 06/27/20 12:00 98.2 101 20 126/71 (89) 100 Intake and Output 06/27/20 06/28/20 19:00 07:00 Intake Total 275.000 ml Output Total 2100 ml 700 ml Balance -1825.000 ml -700 ml IV Total 275.000 ml Output Urine Total 2100 ml 700 ml # Bowel Movements 1 1 Laboratory Tests 9/14/20 19:10: Vancomycin Level Trough 33.7H 06/28/20 04:50: White Blood Count 17.9#H, Red Blood Count 3.92L, Hemoglobin 11.4L, Hematocrit 37.7L, Mean Corpuscular Volume 96, Mean Corpuscular Hemoglobin 29.2, Mean Corpuscular Hemoglobin Concent 30.3L, Red Cell Distribution Width 15.9H, Platelet Count 364, Mean Platelet Volume 8.3, Neutrophils (%) (Auto) 71.1, Lymphocytes (%) (Auto) 19.4L, Monocytes (%) (Auto) 7.6, Eosinophils (%) (Auto) 0.9, Basophils (%) (Auto) 1.0, Erythrocyte Sedimentation Rate [Pending], Sodium Level 162*H, Potassium Level 4.1, Chloride Level 121H, Carbon Dioxide Level 30, Anion Gap 10, Blood Urea Nitrogen 34H, Creatinine 1.2, Estimat Glomerular Filtration Rate > 60, Glucose Level 94, Calcium Level 9.2, Phosphorus Level 4.1 , Magnesium Level 2.7H, Total Bilirubin 0.3, Aspartate Amino Transf (AST/SGOT) 25, Alanine Aminotransferase (ALT/SGPT) 33, Alkaline Phosphatase 247H, C- Reactive Protein, Quantitative 21.5H, Total Protein 8.4H, Albumin 2.0L, Globulin 6.4, Albumin/Globulin Ratio 0.3L Height (Feet): 5 Height (Inches): 5.00 Weight (Pounds): 123 General Appearance: no apparent distress Cardiovascular: tachycardia Respiratory/Chest: decreased breath sounds Abdomen: soft, distended Objective No change Eddie Nelson MD Jun 28, 2020 09:42
--- NOTE | 2020-06-28 10:32 | NUR ---
*-*DISCHARGE PLANNING*-* PATIENT HAS BEEN REFERRED BACK TO [facility] P: [phone] s/w vivi combs in meeting call back.
[2020-06-28 12:00] VITALS: BP 104/62
--- NOTE | 2020-06-28 12:01 | Diagnostic Imaging Report ---
Procedure: XRAY Chest 1v Reason for study: Reason For Exam: [id number] Comparison films: 06/22/2020. FINDINGS: A single one view chest is obtained. Vascularity is normal. The lung bryson are clear bilaterally. Right lung granuloma noted. Cardiac silhouette is within normal limits. There is a tortuous aorta. CP angles are sharp. The bony thorax appear unremarkable. IMPRESSION: NO ACUTE CARDIOPULMONARY DISEASE.
--- NOTE | 2020-06-28 13:01 | NUR ---
RADIOLOGY DEPT., CHEST AND ABDOMEN X-RAYS COMPLETED.-P.DYE
--- NOTE | 2020-06-28 13:36 | Pulmonology Progress Note ---
Subjective ROS Limited/Unobtainable: No Constitutional: Reports: no symptoms, anorexia HEENT: Repors: no symptoms Respiratory: Reports: no symptoms Cardiovascular: Reports: no symptoms Allergies: Coded Allergies: No Known Allergies (Unverified , 08/27/19) All Systems: reviewed and negative except above Objective Last 24 Hour Vital Signs Date Time Temp Pulse Resp B/P (MAP) Pulse Ox O2 Delivery O2 Flow Rate FiO2 06/28/20 12:00 97.0 89 17 104/62 (76) 98 06/28/20 09:00 Room Air 06/28/20 08:54 117 124/78 06/28/20 08:00 97.6 117 19 124/78 (93) 97 06/28/20 04:00 98.9 99 20 112/68 (83) 93 06/28/20 00:00 97.5 81 20 107/62 (77) 96 06/27/20 22:11 98.6 90 22 97 06/27/20 21:22 100.0 06/27/20 21:00 Room Air 06/27/20 20:51 131 138/75 06/27/20 20:00 101.8 131 26 138/75 (96) 97 06/27/20 16:00 98.7 110 21 141/76 (97) 100 Intake and Output 06/27/20 06/28/20 19:00 07:00 Intake Total 275.000 ml Output Total 2100 ml 700 ml Balance -1825.000 ml -700 ml IV Total 275.000 ml Output Urine Total 2100 ml 700 ml # Bowel Movements 1 1 General Appearance: cachetic HEENT: normocephalic, atraumatic Respiratory: chest wall non-tender, normal breath sounds Cardiovascular: normal peripheral pulses, normal rate, JVD Abdomen: normal bowel sounds, hyperactive bowel sounds Genitourinary: normal external genitalia Extremities: no clubbing Skin: no lesions 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: 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 II-XII grossly normal Lymphatic: no neck adenopathy Microbiology Date/Time Source Procedure Growth Status 06/27/20 14:08 Stool Clostridium difficile Toxin Assay - Final Complete Laboratory Tests 06/27/20 19:10: Vancomycin Level Trough 33.7H 06/28/20 04:50: White Blood Count 17.9#H, Red Blood Count 3.92L, Hemoglobin 11.4L, Hematocrit 37.7L, Mean Corpuscular Volume 96, Mean Corpuscular Hemoglobin 29.2, Mean Corpuscular Hemoglobin Concent 30.3L, Red Cell Distribution Width 15.9H, Platelet Count 364, Mean Platelet Volume 8.3, Neutrophils (%) (Auto) 71.1, Lymphocytes (%) (Auto) 19.4L, Monocytes (%) (Auto) 7.6, Eosinophils (%) (Auto) 0.9, Basophils (%) (Auto) 1.0, Erythrocyte Sedimentation Rate 66H, Sodium Level 162*H, Potassium Level 4.1, Chloride Level 121H, Carbon Dioxide Level 30, Anion Gap 10, Blood Urea Nitrogen 34H, Creatinine 1.2, Estimat Glomerular Filtration Rate > 60, Glucose Level 94, Calcium Level 9.2, Phosphorus Level 4.1, Magnesium Level 2.7H, Total Bilirubin 0.3, Aspartate Amino Transf (AST/SGOT) 25, Alanine Aminotransferase (ALT/SGPT) 33, Alkaline Phosphatase 247H, C-Reactive Protein, Quantitative 21.5H, Total Protein 8.4H, Albumin 2.0L, Globulin 6.4, Albumin/ Globulin Ratio 0.3L Current Medications Medications (Trade) Dose Ordered Sig/Debi Route PRN Reason Start Time Stop Time Status Last Admin Dose Admin Acetaminophen (Tylenol) 650 mg Q6H PRN GT Mild Pain (Pain Scale 1-3) 06/27/20 11:00 07/02/20 10:59 06/27/20 20:52 Amantadine HCl (Symmetrel) 100 mg TWICE A DAY GT 06/27/20 18:00 07/02/20 08:59 06/28/20 08:53 Aspirin (ASA) 81 mg DAILY GT 06/28/20 09:00 07/17/20 08:59 06/28/20 08:54 Barium Sulfate (Readi-Cat 2) 450 ml NOW PRN ORAL Radiology Procedure 06/27/20 16:45 06/29/20 16:32 Dextrose 1,000 ml @ 150 mls/hr Q6H40M IV 06/28/20 09:15 07/28/20 09:14 06/28/20 09:18 Dextrose (Dextrose 50%) 25 ml Q30M PRN IV Hypoglycemia 06/27/20 10:30 09/20/20 06:59 Dextrose (Dextrose 50%) 50 ml Q30M PRN IV Hypoglycemia 06/27/20 10:30 09/20/20 06:59 Ertapenem 1 gm/ Sodium Chloride 55 ml @ 110 mls/hr Q24H IVPB 06/27/20 17:00 06/29/20 16:59 06/27/20 18:46 Famotidine (Pepcid) 20 mg BID GT 06/27/20 18:00 09/01/20 17:59 06/28/20 08:54 Heparin Sodium (Porcine) (Heparin 5000 units/ml) 5,000 units EVERY 12 HOURS SUBQ 06/27/20 21:00 07/17/20 08:59 06/28/20 08:55 Insulin Aspart (NovoLOG) Q6HR SUBQ 06/27/20 12:00 09/09/20 17:59 06/27/20 18:52 Insulin Detemir (Levemir) 13 units EVERY 12 HOURS SUBQ 06/28/20 09:00 09/09/20 20:59 Iohexol (OMNIPAQUE-300 100ml) 100 ml ONCE PRN INJ radiology use 06/27/20 16:45 06/29/20 16:44 Metoprolol Tartrate (Lopressor) 25 mg Q12HR GT 06/27/20 21:00 09/20/20 08:59 06/28/20 08:54 Midodrine (Pro-Amatine) 2.5 mg TIDPRN PRN GT blood pressure below 100 sbp 06/27/20 11:00 09/11/20 10:59 Pravastatin Sodium (Pravachol) 20 mg BEDTIME GT 06/27/20 21:00 07/02/20 20:59 06/27/20 20:51 Sennosides (Senokot) 8.6 mg DAILY GT 06/28/20 09:00 07/02/20 08:59 06/28/20 08:54 Vancomycin HCl (Firvanq) 125 mg FOUR TIMES A DAY GT 06/28/20 13:00 07/08/20 12:59 Vancomycin HCl (Vanco pharmacy to dose) 1 ea DAILY PRN MISC Per rx protocol 06/27/20 11:00 07/27/20 10:59 Vancomycin/Sodium Chloride 275 ml @ 183.333 mls/hr Q24H IVPB 06/28/20 09:00 07/03/20 08:59 9/15/20 09:10 Assessment/Plan Problems: (1) Clostridium difficile colitis (2) Staphylococcus aureus bacteremia (3) Sepsis (4) Multiple drug resistant organism (MDRO) culture positive (5) Hypernatremia (6) History of CVA (cerebrovascular accident) (7) History of hypertension (8) Parkinson disease (9) Severe protein-calorie malnutrition (10) Feeding by G-tube (11) Diabetes mellitus Assessment/Plan still leukocytosis and higher today C-diff positive Na is still high still low grade temp repeat all cultures , Urine has proteus,,MDR COVID Negative sliding scale all reviewed, symptomatic treatment dvt prophylaxis Latanya Mckeon MD Jun 28, 2020 13:36
[2020-06-28] MEDS: Vancomycin oral 125mg/2.5ml GT SCH ×3 (14:01→21:00)
--- NOTE | 2020-06-28 15:46 | Infectious Diseases Prog Note ---
Assessment/Plan 79yo M with: COVID19 neg (06/01 rapid COVID PCR neg) Sespsis, recurrent MSSA bacteremia- - ?source- r/o endocarditis UTI, recurrent -06/23 Bcx NTD 2d echo no vegetations seen -06/21 rapid COVID PCR neg u/a wbc 5-10,nit neg, leuk +3; ucx >100k ESBL P.mirabilis Bx 12/15 MSSA CXR No acute process. Cdiff colitis -06/27 Cdif toxin a/b + Fever, recurrent; Leukocytosis, recurrent; increased KELLY, improving UTI, sp rx 06/01 UA w/ pyuria, UCx + P Mirabilis ESBL 06/01 BCx Neg 06/01 CXR: No acute process COVID rapid test neg H/o ESBL Proteus in UCx in Oct 2019 Renal US w/ BL cysts PMH: DM2 Parkinson's dementia Bedridden G-tube Plan: PO Vancomycin #1 for cdiff Ancef #1 (abx d 8) for MSSA bactremia 06/27 SP Ertapenem #4, IV Vancomycin #7 06/24 SP MEropenem #4 06/10 SP audra #8 06/02 SP erta #1 06/01 SP cefepime, vanco, flagyl x1 in ED Monitor CBC/BMP f/u Bcx x2 CT c/abd/p w/ to eval for abcess ELMO D/w RN Thank you for this consult. [facility] will continue to follow. Subjective Allergies: Coded Allergies: No Known Allergies (Unverified , 08/27/19) Tm 101.8 wbc incrased to 17 repaet bcx NTD cdiff positive Objective Last 24 Hour Vital Signs Date Time Temp Pulse Resp B/P (MAP) Pulse Ox O2 Delivery O2 Flow Rate FiO2 06/28/20 12:00 97.0 89 17 104/62 (76) 98 06/28/20 09:00 Room Air 06/28/20 08:54 117 124/78 06/28/20 08:00 97.6 117 19 124/78 (93) 97 06/28/20 04:00 98.9 99 20 112/68 (83) 93 06/28/20 00:00 97.5 81 20 107/62 (77) 96 06/27/20 22:11 98.6 90 22 97 06/27/20 21:22 100.0 06/27/20 21:00 Room Air 06/27/20 20:51 131 138/75 06/27/20 20:00 101.8 131 26 138/75 (96) 97 06/27/20 16:00 98.7 110 21 141/76 (97) 100 Height (Feet): 5 Height (Inches): 5.00 Weight (Pounds): 123 GENERAL: no apparent distress. CHEST: Lungs are clear to auscultation bilaterally without wheezes or rales. CARDIOVASCULAR: regular rhythm. S1, S2 are normal without murmurs, rubs, or gallops. ABDOMEN: Soft, nontender, and nondistended. Positive bowel sounds. No evidence of hepatosplenomegaly. EXTREMITIES: Negative for clubbing, cyanosis, or edema. Microbiology Date/Time Source Procedure Growth Status 06/27/20 14:08 Stool Clostridium difficile Toxin Assay - Final Complete Laboratory Tests Test 06/27/20 19:10 06/28/20 04:50 Vancomycin Level Trough 33.7 ug/mL (5.0-12.0) H White Blood Count 17.9 K/UL (4.8-10.8) #H Red Blood Count 3.92 M/UL (4.70-6.10) L Hemoglobin 11.4 G/DL (14.2-18.0) L Hematocrit 37.7 % (42.0-52.0) L Mean Corpuscular Volume 96 FL (80-99) Mean Corpuscular Hemoglobin 29.2 PG (27.0-31.0) Mean Corpuscular Hemoglobin Concent 30.3 G/DL (32.0-36.0) L Red Cell Distribution Width 15.9 % (11.6-14.8) H Platelet Count 364 K/UL (150-450) Mean Platelet Volume 8.3 FL (6.5-10.1) Neutrophils (%) (Auto) 71.1 % (45.0-75.0) Lymphocytes (%) (Auto) 19.4 % (20.0-45.0) L Monocytes (%) (Auto) 7.6 % (1.0-10.0) Eosinophils (%) (Auto) 0.9 % (0.0-3.0) Basophils (%) (Auto) 1.0 % (0.0-2.0) Erythrocyte Sedimentation Rate 66 MM/HR (0-20) H Sodium Level 162 MMOL/L (136-145) *H Potassium Level 4.1 MMOL/L (3.5-5.1) Chloride Level 121 MMOL/L (98-107) H Carbon Dioxide Level 30 MMOL/L (21-32) Anion Gap 10 mmol/L (5-15) Blood Urea Nitrogen 34 mg/dL (7-18) H Creatinine 1.2 MG/DL (0.55-1.30) Estimat Glomerular Filtration Rate > 60 mL/min (>60) Glucose Level 94 MG/DL (74-106) Calcium Level 9.2 MG/DL (8.5-10.1) Phosphorus Level 4.1 MG/DL (2.5-4.9) Magnesium Level 2.7 MG/DL (1.8-2.4) H Total Bilirubin 0.3 MG/DL (0.2-1.0) Aspartate Amino Transf (AST/SGOT) 25 U/L (15-37) Alanine Aminotransferase (ALT/SGPT) 33 U/L (12-78) Alkaline Phosphatase 247 U/L (46-116) H C-Reactive Protein, Quantitative 21.5 mg/dL (0.00-0.90) H Total Protein 8.4 G/DL (6.4-8.2) H Albumin 2.0 G/DL (3.4-5.0) L Globulin 6.4 g/dL Albumin/Globulin Ratio 0.3 (1.0-2.7) L Current Medications Medications (Trade) Dose Ordered Sig/Debi Route PRN Reason Start Time Stop Time Status Last Admin Dose Admin Acetaminophen (Tylenol) 650 mg Q6H PRN GT Mild Pain (Pain Scale 1-3) 06/27/20 11:00 07/02/20 10:59 06/27/20 20:52 Amantadine HCl (Symmetrel) 100 mg TWICE A DAY GT 06/27/20 18:00 07/02/20 08:59 06/28/20 08:53 Aspirin (ASA) 81 mg DAILY GT 06/28/20 09:00 07/17/20 08:59 06/28/20 08:54 Barium Sulfate (Readi-Cat 2) 450 ml NOW PRN ORAL Radiology Procedure 06/27/20 16:45 06/29/20 16:32 Dextrose 1,000 ml @ 150 mls/hr Q6H40M IV 06/28/20 09:15 07/28/20 09:14 06/28/20 09:18 Dextrose (Dextrose 50%) 25 ml Q30M PRN IV Hypoglycemia 06/27/20 10:30 09/20/20 06:59 Dextrose (Dextrose 50%) 50 ml Q30M PRN IV Hypoglycemia 06/27/20 10:30 09/20/20 06:59 Ertapenem 1 gm/ Sodium Chloride 55 ml @ 110 mls/hr Q24H IVPB 06/27/20 17:00 06/29/20 16:59 06/27/20 18:46 Famotidine (Pepcid) 20 mg BID GT 06/27/20 18:00 09/01/20 17:59 06/28/20 08:54 Heparin Sodium (Porcine) (Heparin 5000 units/ml) 5,000 units EVERY 12 HOURS SUBQ 06/27/20 21:00 07/17/20 08:59 06/28/20 08:55 Insulin Aspart (NovoLOG) Q6HR SUBQ 06/27/20 12:00 09/09/20 17:59 06/27/20 18:52 Insulin Detemir (Levemir) 13 units EVERY 12 HOURS SUBQ 06/28/20 09:00 09/09/20 20:59 Iohexol (OMNIPAQUE-300 100ml) 100 ml ONCE PRN INJ radiology use 06/27/20 16:45 06/29/20 16:44 Metoprolol Tartrate (Lopressor) 25 mg Q12HR GT 06/27/20 21:00 09/20/20 08:59 06/28/20 08:54 Midodrine (Pro-Amatine) 2.5 mg TIDPRN PRN GT blood pressure below 100 sbp 06/27/20 11:00 09/11/20 10:59 Pravastatin Sodium (Pravachol) 20 mg BEDTIME GT 06/27/20 21:00 07/02/20 20:59 06/27/20 20:51 Sennosides (Senokot) 8.6 mg DAILY GT 06/28/20 09:00 07/02/20 08:59 06/28/20 08:54 Vancomycin HCl (Firvanq) 125 mg FOUR TIMES A DAY GT 06/28/20 13:00 07/08/20 12:59 06/28/20 14:01 Vancomycin HCl (Vanco pharmacy to dose) 1 ea DAILY PRN MISC Per rx protocol 06/27/20 11:00 07/27/20 10:59 Vancomycin HCl 1.25 gm/Dextrose 275 ml @ 183.333 mls/hr Q24H IVPB 06/29/20 09:00 07/04/20 08:59 Blaire Greenwood M.D. Jun 28, 2020 15:46
[2020-06-28 16:00] VITALS: BP 120/65
--- NOTE | 2020-06-28 17:49 | Internal Med Progress Note ---
Subjective Date of Service: Jun 28, 2020 Physician Name Cobb,Tello Attending Physician Cirilo Rome MD Current Medications Medications (Trade) Dose Ordered Sig/Debi Route PRN Reason Start Time Stop Time Status Last Admin Dose Admin Acetaminophen (Tylenol) 650 mg Q6H PRN GT Mild Pain (Pain Scale 1-3) 06/27/20 11:00 07/02/20 10:59 06/27/20 20:52 Amantadine HCl (Symmetrel) 100 mg TWICE A DAY GT 06/27/20 18:00 07/02/20 08:59 06/28/20 17:13 Aspirin (ASA) 81 mg DAILY GT 06/28/20 09:00 07/17/20 08:59 06/28/20 08:54 Barium Sulfate (Readi-Cat 2) 450 ml NOW PRN ORAL Radiology Procedure 06/27/20 16:45 06/29/20 16:32 Cefazolin Sodium 50 ml @ 100 mls/hr Q8HR@0100,0900,1700 IV 06/28/20 17:00 07/05/20 16:59 Dextrose 1,000 ml @ 150 mls/hr Q6H40M IV 06/28/20 09:15 07/28/20 09:14 06/28/20 16:13 Dextrose (Dextrose 50%) 25 ml Q30M PRN IV Hypoglycemia 06/27/20 10:30 09/20/20 06:59 Dextrose (Dextrose 50%) 50 ml Q30M PRN IV Hypoglycemia 06/27/20 10:30 09/20/20 06:59 Famotidine (Pepcid) 20 mg BID GT 06/27/20 18:00 09/01/20 17:59 06/28/20 17:13 Heparin Sodium (Porcine) (Heparin 5000 units/ml) 5,000 units EVERY 12 HOURS SUBQ 06/27/20 21:00 07/17/20 08:59 06/28/20 08:55 Insulin Aspart (NovoLOG) Q6HR SUBQ 06/27/20 12:00 09/09/20 17:59 06/27/20 18:52 Insulin Detemir (Levemir) 13 units EVERY 12 HOURS SUBQ 06/28/20 09:00 09/09/20 20:59 Iohexol (OMNIPAQUE-300 100ml) 100 ml ONCE PRN INJ radiology use 06/27/20 16:45 06/29/20 16:44 Metoprolol Tartrate (Lopressor) 25 mg Q12HR GT 06/27/20 21:00 09/20/20 08:59 06/28/20 08:54 Midodrine (Pro-Amatine) 2.5 mg TIDPRN PRN GT blood pressure below 100 sbp 06/27/20 11:00 09/11/20 10:59 Pravastatin Sodium (Pravachol) 20 mg BEDTIME GT 06/27/20 21:00 07/02/20 20:59 06/27/20 20:51 Sennosides (Senokot) 8.6 mg DAILY GT 06/28/20 09:00 07/02/20 08:59 06/28/20 08:54 Vancomycin HCl (Firvanq) 125 mg FOUR TIMES A DAY GT 06/28/20 13:00 07/08/20 12:59 06/28/20 17:13 Allergies: Coded Allergies: No Known Allergies (Unverified , 08/27/19) ROS Limited/Unobtainable: Yes Subjective 79 YO M admitted with hyperglycemia and hypernatremia. Now UTI. Cover for Int Med-Dr Rome Objective Last Vital Signs Date Time Temp Pulse Resp B/P (MAP) Pulse Ox O2 Delivery O2 Flow Rate FiO2 06/28/20 16:00 97.5 92 17 120/65 (83) 99 06/28/20 09:00 Room Air Laboratory Tests Test 06/27/20 19:10 06/28/20 04:50 Vancomycin Level Trough 33.7 ug/mL (5.0-12.0) H White Blood Count 17.9 K/UL (4.8-10.8) #H Red Blood Count 3.92 M/UL (4.70-6.10) L Hemoglobin 11.4 G/DL (14.2-18.0) L Hematocrit 37.7 % (42.0-52.0) L Mean Corpuscular Volume 96 FL (80-99) Mean Corpuscular Hemoglobin 29.2 PG (27.0-31.0) Mean Corpuscular Hemoglobin Concent 30.3 G/DL (32.0-36.0) L Red Cell Distribution Width 15.9 % (11.6-14.8) H Platelet Count 364 K/UL (150-450) Mean Platelet Volume 8.3 FL (6.5-10.1) Neutrophils (%) (Auto) 71.1 % (45.0-75.0) Lymphocytes (%) (Auto) 19.4 % (20.0-45.0) L Monocytes (%) (Auto) 7.6 % (1.0-10.0) Eosinophils (%) (Auto) 0.9 % (0.0-3.0) Basophils (%) (Auto) 1.0 % (0.0-2.0) Erythrocyte Sedimentation Rate 66 MM/HR (0-20) H Sodium Level 162 MMOL/L (136-145) *H Potassium Level 4.1 MMOL/L (3.5-5.1) Chloride Level 121 MMOL/L (98-107) H Carbon Dioxide Level 30 MMOL/L (21-32) Anion Gap 10 mmol/L (5-15) Blood Urea Nitrogen 34 mg/dL (7-18) H Creatinine 1.2 MG/DL (0.55-1.30) Estimat Glomerular Filtration Rate > 60 mL/min (>60) Glucose Level 94 MG/DL (74-106) Calcium Level 9.2 MG/DL (8.5-10.1) Phosphorus Level 4.1 MG/DL (2.5-4.9) Magnesium Level 2.7 MG/DL (1.8-2.4) H Total Bilirubin 0.3 MG/DL (0.2-1.0) Aspartate Amino Transf (AST/SGOT) 25 U/L (15-37) Alanine Aminotransferase (ALT/SGPT) 33 U/L (12-78) Alkaline Phosphatase 247 U/L (46-116) H C-Reactive Protein, Quantitative 21.5 mg/dL (0.00-0.90) H Total Protein 8.4 G/DL (6.4-8.2) H Albumin 2.0 G/DL (3.4-5.0) L Globulin 6.4 g/dL Albumin/Globulin Ratio 0.3 (1.0-2.7) L Microbiology Date/Time Source Procedure Growth Status 06/27/20 14:08 Stool Clostridium difficile Toxin Assay - Final Complete Intake and Output 06/27/20 06/28/20 19:00 07:00 Intake Total 275.000 ml Output Total 2100 ml 700 ml Balance -1825.000 ml -700 ml IV Total 275.000 ml Output Urine Total 2100 ml 700 ml # Bowel Movements 1 1 Objective PHYSICAL EXAMINATION: GENERAL: The patient is a well-developed, well-nourished, thin-appearing, male, in no apparent distress. HEENT: Eyes, pupils equal and responsive to light and accommodation. Extraocular movements are intact. NECK: Supple without lymphadenopathy. CHEST: Lungs are clear to auscultation bilaterally without wheezes or rales. CARDIOVASCULAR: Slightly tachycardic, regular rhythm. S1, S2 are normal without murmurs, rubs, or gallops. ABDOMEN: Soft, nontender, and nondistended. Positive bowel sounds. No evidence of hepatosplenomegaly. Currently, no rebound or guarding noted. EXTREMITIES: Negative for clubbing, cyanosis, or edema. RECTAL: Not performed. GENITAL: Not performed. NEUROLOGIC: Cranial nerves II through XII are grossly intact without focal deficits. Assessment/Plan Assessment/Plan ASSESSMENT: This is a 79-year-old male with: 1. Hyperglycemia. 2. Hypernatremia. 3. Urinary tract infection=MDR proteus. 4. Diabetes type 2. 5. Hypertension. 6. Hypercholesterolemia. 7. Dysphagia. 8. Parkinson disease. 9. Ulcerative proctitis. 10. Protein-calorie malnutrition. 11. History of sacral decubitus ulcer stage IV. 12. Benign prostatic hypertrophy. 13. Gastroesophageal reflux disease. 14. Metabolic encephalopathy. 15. History of left hip fracture. 16. sepsis=staph aureus TREATMENT: 1. Hyperglycemia/diabetes. The patient has been placed on a protocol using NovoLog sliding scale. The patient's blood sugars have been running in 300s. Hyperglycemia may be secondary to urinary tract infection. 2. Urinary tract infection. Urine culture =MDR proteus. ABX= ertapenem and vancomycin results.ID=Dr Oliva 3. Hypertension. Continue amlodipine as above. 4. Hypercholesterolemia. Continue atorvastatin as above. 5. Dysphagia. The patient is status post PEG placement. 6. Parkinson disease. Continue amantadine as above. 7. Ulcerative proctitis. 8. Protein-calorie malnutrition. 9. Sacral decubitus ulcer stage IV. 10. Benign prostatic hypertrophy. Continue tamsulosin as above. 11. Gastroesophageal reflux disease. 12. Metabolic encephalopathy. 13. History of left hip fracture. 14. R/O endocarditis Tello Cobb MD Jun 28, 2020 17:49
[2020-06-28] MEDS: ceFAZolin 2gm/50ml Premix 50 ML IV SCH (17:59)
--- NOTE | 2020-06-28 18:26 | Surgery Progress Note ---
Surgery Progress Note Subjective Additional Comments comfortable no complaints no n/v Objective Last 24 Hour Vital Signs Date Time Temp Pulse Resp B/P (MAP) Pulse Ox O2 Delivery O2 Flow Rate FiO2 06/28/20 16:00 97.5 92 17 120/65 (83) 99 06/28/20 12:00 97.0 89 17 104/62 (76) 98 06/28/20 09:00 Room Air 06/28/20 08:54 117 124/78 06/28/20 08:00 97.6 117 19 124/78 (93) 97 06/28/20 04:00 98.9 99 20 112/68 (83) 93 06/28/20 00:00 97.5 81 20 107/62 (77) 96 06/27/20 22:11 98.6 90 22 97 06/27/20 21:22 100.0 06/27/20 21:00 Room Air 06/27/20 20:51 131 138/75 06/27/20 20:00 101.8 131 26 138/75 (96) 97 I&O Intake and Output 06/27/20 06/28/20 19:00 07:00 Intake Total 275.000 ml Output Total 2100 ml 700 ml Balance -1825.000 ml -700 ml IV Total 275.000 ml Output Urine Total 2100 ml 700 ml # Bowel Movements 1 1 Cardiovascular: RSR Respiratory: decreased breath sounds Abdomen: soft, non-tender, present bowel sounds Extremities: no edema, no tenderness, no cyanosis Laboratory Tests Test 06/27/20 19:10 06/28/20 04:50 Vancomycin Level Trough 33.7 ug/mL (5.0-12.0) H White Blood Count 17.9 K/UL (4.8-10.8) #H Red Blood Count 3.92 M/UL (4.70-6.10) L Hemoglobin 11.4 G/DL (14.2-18.0) L Hematocrit 37.7 % (42.0-52.0) L Mean Corpuscular Volume 96 FL (80-99) Mean Corpuscular Hemoglobin 29.2 PG (27.0-31.0) Mean Corpuscular Hemoglobin Concent 30.3 G/DL (32.0-36.0) L Red Cell Distribution Width 15.9 % (11.6-14.8) H Platelet Count 364 K/UL (150-450) Mean Platelet Volume 8.3 FL (6.5-10.1) Neutrophils (%) (Auto) 71.1 % (45.0-75.0) Lymphocytes (%) (Auto) 19.4 % (20.0-45.0) L Monocytes (%) (Auto) 7.6 % (1.0-10.0) Eosinophils (%) (Auto) 0.9 % (0.0-3.0) Basophils (%) (Auto) 1.0 % (0.0-2.0) Erythrocyte Sedimentation Rate 66 MM/HR (0-20) H Sodium Level 162 MMOL/L (136-145) *H Potassium Level 4.1 MMOL/L (3.5-5.1) Chloride Level 121 MMOL/L (98-107) H Carbon Dioxide Level 30 MMOL/L (21-32) Anion Gap 10 mmol/L (5-15) Blood Urea Nitrogen 34 mg/dL (7-18) H Creatinine 1.2 MG/DL (0.55-1.30) Estimat Glomerular Filtration Rate > 60 mL/min (>60) Glucose Level 94 MG/DL (74-106) Calcium Level 9.2 MG/DL (8.5-10.1) Phosphorus Level 4.1 MG/DL (2.5-4.9) Magnesium Level 2.7 MG/DL (1.8-2.4) H Total Bilirubin 0.3 MG/DL (0.2-1.0) Aspartate Amino Transf (AST/SGOT) 25 U/L (15-37) Alanine Aminotransferase (ALT/SGPT) 33 U/L (12-78) Alkaline Phosphatase 247 U/L (46-116) H C-Reactive Protein, Quantitative 21.5 mg/dL (0.00-0.90) H Total Protein 8.4 G/DL (6.4-8.2) H Albumin 2.0 G/DL (3.4-5.0) L Globulin 6.4 g/dL Albumin/Globulin Ratio 0.3 (1.0-2.7) L Plan Problems: (1) Hypernatremia (2) Dehydration (3) Hip fracture, left (4) Diabetes mellitus (5) History of hypertension (6) Severe protein-calorie malnutrition Assessment & Plan: DAILY ESTIMATED NEEDS: Needs based on Sepsis, DM/ 54kg 30-40 kcals/kg 0912-1198 total kcals 1.25-2 g protein/kg 68-108 g total protein 25-35ml/kcal mL/kg 9247-7722 total fluid mLs NUTRITION DIAGNOSIS: * Swallowing difficulty R/T dysphagia, as evidenced by Pt is GT dep. (CURRENT TF: Glucerna 1.5 @ 30ml/hr x 24 hrs) ENTERAL NUTRITION RECOMMENDATIONS: Glucerna 1.5 @ 60ml/hr x 20 hrs to provide 1200ml, 1800kcal, 99g prot, 911ml free water, 160g carbs * Rec to INCREASE TF GOAL to 60ml/hr for 20 hrs * HOB over 30 degrees, increased water flushes * TF at goal meets 100% est needs. -------- ADDITIONAL RECOMMENDATIONS: * Calibrated bedscale wt for accurate CBW * Monitor lytes daily w/ TF, replete as needed * Pt may require increase in insulin regimen for improved BG W/ continuous TF infusion * Wound healing: DOMENICA BID, F/up w/ WC eval . (7) Acute encephalopathy (8) Pressure Ulcer Of Sacral Region, Unstageable Assessment & Plan: Pt presented on admission with purple and indurated area at Sacrococcygeal at previously compromised site(L)7cm x (W)3cm.Surrounding Hyperpigmentation at Sacrum. Non-Blanching erythema without fluctuance R heel. Non-Blanching erythema with delineated margins L heel (L)4.5cm x (W)5.5cm. L Heel is boggy . Tx.Plan: Apply Moisture Barrier Paste to Sacrum. Cover with Optifoam drsgs. Change every 3 days and prn. Apply Cavilon Skin Barrier to R and L trochanter. Cover each site with Optifoam drsgs. Change every 7 days and prn. Apply Cavilon Skin Barrier to each heel and malleoli. Cover each site with Optifoam drsgs. Change every 7 days and prn. Reposition at least every 2hours or as tolerated. Off-load heels with pillow. improving cont current care tube site okay (9) Feeding by G-tube (10) Abdominal distention (11) Multiple drug resistant organism (MDRO) culture positive (12) Sepsis (13) History of CVA (cerebrovascular accident) (14) Parkinson disease (15) Staphylococcus aureus bacteremia Assessment & Plan: repeat blood cultures negative on abx unlikely source of bacteremia from wounds. will monitor cont local wound care improving leukocytosis James Breen Jun 28, 2020 18:26
--- NOTE | 2020-06-28 19:05 | NUR ---
NURSE NOTES: Received pt. in bed, in semi fowlers position, breathing even and unlabored, no sob noted, denies any pain at this time. Bed is in it's lowest position, alarmed and locked. With gt patent and intact when checked, with feeding infusing well and tolerated. With iv line on left antecubital, patent and intact. Will continue with plan of care.
--- NOTE | 2020-06-28 19:05 | NUR ---
NURSE NOTES: Received report from Maria Del Carmen TURNER.
--- NOTE | 2020-06-28 19:53 | NUR ---
NURSE HAND-OFF: Important Events on Shift:CT Scan w contrast 06/29/2020 Patient Status:STABLE Diet: Glucerna 1.5 60cc Pending Orders: n/a Pending Results/Labs:n/a Pending MD notification:n/a Latest Vital Signs: Temperature 97.5 , Pulse 92 , B/P 120 /65 , Respiratory Rate 17 , O2 SAT 99 , Room Air, O2 Flow Rate 3.0 . Vital Sign Comment: stable Latest Lane Fall Score: 55 Fall Risk: High Risk Safety Measures: Call light Within Reach, Bed Alarm Zone 1, Side Rails Side Rails x3, Bed position Low and Locked. Fall Precautions: Yellow Socks Yellow Gown Door Sign Report given to JOHNNY Rucker.
[2020-06-28 20:00] VITALS: BP 122/65
[2020-06-29] VITALS: BP 106/65
[2020-06-29] MEDS: ceFAZolin 2gm/50ml Premix 50 ML IV SCH ×3 (00:54→16:48)
--- NOTE | 2020-06-29 01:13 | NUR ---
NURSE NOTES: Pt. due meds given. Good pericare rendered. Kept clean and dry @ all times. Suctioned secretion @ timnes Addendum: 06/29/20 at 0115 by Kike Flaherty RN wrong entry.
--- NOTE | 2020-06-29 01:16 | NUR ---
NURSE NOTES: Pt. meds given through gt, patent and intact, able to tolerate well. Kept clean and dry at all times. Turned and repositioned for comfort and circulation. Slept @ long intervals. On continued isolation of ESBL urine and C diff, Hx of MRSA nares, observed at all times. Will continue with plan of care.
--- NOTE | 2020-06-29 01:42 | NUR ---
Wound dressing on sacrum changed, no drainage noted. Kept clean, dry and intact.
[2020-06-29 04:00] VITALS: BP 119/71
--- NOTE | 2020-06-29 06:06 | General Progress Note ---
Assessment/Plan Problem List: (1) Hypernatremia ICD Codes: E87.0 - Hyperosmolality and hypernatremia SNOMED: 893278919 (2) Feeding by G-tube ICD Codes: Z93.1 - Gastrostomy status SNOMED: 780259624, 389488835, 084076565 (3) Diabetes mellitus ICD Codes: E11.9 - Type 2 diabetes mellitus without complications SNOMED: 92085520 (4) History of CVA (cerebrovascular accident) ICD Codes: Z86.73 - Personal history of transient ischemic attack (TIA), and cerebral infarction without residual deficits SNOMED: 894553071 (5) Parkinson disease ICD Codes: G20 - Parkinson's disease SNOMED: 93027641 Assessment/Plan: continue Levemir 13 units bid continue Novolog sliding scale high dose every 6 hours Subjective ROS Limited/Unobtainable: Yes Allergies: Coded Allergies: No Known Allergies (Unverified , 08/27/19) Subjective events noted and interval notes reviewed glucose values are stable Item Value Date Time Bedside Blood Glucose 160 mg/dl H 06/29/20 0041 Bedside Blood Glucose 160 mg/dl H 06/28/20 2100 Bedside Blood Glucose 111 mg/dl 06/28/20 1800 Bedside Blood Glucose 82 mg/dl 06/28/20 1200 Bedside Blood Glucose 88 mg/dl 06/28/20 0900 Objective Last 24 Hour Vital Signs Date Time Temp Pulse Resp B/P (MAP) Pulse Ox O2 Delivery O2 Flow Rate FiO2 06/29/20 00:00 98.6 97 20 106/65 (79) 96 06/28/20 22:16 94 122/65 06/28/20 21:00 Room Air 06/28/20 20:00 98.2 94 20 122/65 (84) 94 06/28/20 16:00 97.5 92 17 120/65 (83) 99 06/28/20 12:00 97.0 89 17 104/62 (76) 98 06/28/20 09:00 Room Air 06/28/20 08:54 117 124/78 06/28/20 08:00 97.6 117 19 124/78 (93) 97 Intake and Output 06/28/20 06/29/20 19:00 07:00 Output Total 600 ml Balance -600 ml Output Urine Total 600 ml Height (Feet): 5 Height (Inches): 5.00 Weight (Pounds): 123 General Appearance: no apparent distress Neck: normal alignment Cardiovascular: normal rate Respiratory/Chest: decreased breath sounds Abdomen: normal bowel sounds Objective Current Medications Medications (Trade) Dose Ordered Sig/Debi Route PRN Reason Start Time Stop Time Status Last Admin Dose Admin Acetaminophen (Tylenol) 650 mg Q6H PRN GT Mild Pain (Pain Scale 1-3) 06/27/20 11:00 07/02/20 10:59 06/27/20 20:52 Amantadine HCl (Symmetrel) 100 mg TWICE A DAY GT 06/27/20 18:00 07/02/20 08:59 06/28/20 17:13 Aspirin (ASA) 81 mg DAILY GT 06/28/20 09:00 07/17/20 08:59 06/28/20 08:54 Barium Sulfate (Readi-Cat 2) 450 ml NOW PRN ORAL Radiology Procedure 06/27/20 16:45 06/29/20 16:32 Cefazolin Sodium 50 ml @ 100 mls/hr Q8HR@0100,0900,1700 IV 06/28/20 17:00 07/05/20 16:59 06/29/20 00:54 Dextrose 1,000 ml @ 150 mls/hr Q6H40M IV 06/28/20 09:15 07/28/20 09:14 06/29/20 05:36 Dextrose (Dextrose 50%) 25 ml Q30M PRN IV Hypoglycemia 06/27/20 10:30 09/20/20 06:59 Dextrose (Dextrose 50%) 50 ml Q30M PRN IV Hypoglycemia 06/27/20 10:30 09/20/20 06:59 Famotidine (Pepcid) 20 mg BID GT 06/27/20 18:00 09/01/20 17:59 06/28/20 17:13 Heparin Sodium (Porcine) (Heparin 5000 units/ml) 5,000 units EVERY 12 HOURS SUBQ 06/27/20 21:00 07/17/20 08:59 06/28/20 22:13 Insulin Aspart (NovoLOG) Q6HR SUBQ 06/27/20 12:00 09/09/20 17:59 06/28/20 21:00 Insulin Detemir (Levemir) 13 units EVERY 12 HOURS SUBQ 06/28/20 09:00 09/09/20 20:59 06/28/20 21:00 Iohexol (OMNIPAQUE-300 100ml) 100 ml ONCE PRN INJ radiology use 06/27/20 16:45 06/29/20 16:44 Metoprolol Tartrate (Lopressor) 25 mg Q12HR GT 06/27/20 21:00 09/20/20 08:59 06/28/20 22:16 Midodrine (Pro-Amatine) 2.5 mg TIDPRN PRN GT blood pressure below 100 sbp 06/27/20 11:00 09/11/20 10:59 Pravastatin Sodium (Pravachol) 20 mg BEDTIME GT 06/27/20 21:00 07/02/20 20:59 06/28/20 22:16 Sennosides (Senokot) 8.6 mg DAILY GT 06/28/20 09:00 07/02/20 08:59 06/28/20 08:54 Vancomycin HCl (Firvanq) 125 mg FOUR TIMES A DAY GT 06/28/20 13:00 07/08/20 12:59 06/28/20 21:00 Gregory Pastrana MD Jun 29, 2020 06:06
[2020-06-29] MEDS: NovoLOG Insulin Flexpen SUBQ SCH ×3 (06:22→17:54)
[2020-06-29 06:38] LABS: BASOPHILS % (AUTO) 0.5 % (0.0-2.0); EOSINOPHILS % (AUTO) 1.2 % (0.0-3.0); HEMATOCRIT 35.5 % (42.0-52.0); HEMOGLOBIN 10.7 G/DL (14.2-18.0); LYMPHOCYTES % (AUTO) 17.6 % (20.0-45.0); MEAN CORPUSCULAR VOLUME 96 FL (80-99); MONOCYTES % (AUTO) 5.2 % (1.0-10.0); NEUTROPHILS % (AUTO) 75.4 % (45.0-75.0); PLATELET COUNT 385 K/UL (150-450); RED BLOOD COUNT 3.71 M/UL (4.70-6.10); RED CELL DISTRIBUTION WIDTH 15.9 % (11.6-14.8); WHITE BLOOD COUNT 14.2 K/UL (4.8-10.8)
[2020-06-29 07:23] LABS: ALANINE AMINOTRANSFERASE 25 U/L (12-78); ALBUMIN 1.9 G/DL (3.4-5.0); ALBUMIN/GLOBULIN RATIO 0.3 (1.0-2.7); ALKALINE PHOSPHATASE 219 U/L (46-116); ANION GAP 10 mmol/L (5-15); ASPARTATE AMINO TRANSFERASE 20 U/L (15-37); BILIRUBIN,TOTAL 0.2 MG/DL (0.2-1.0); BLOOD UREA NITROGEN 31 mg/dL (7-18); CALCIUM 8.7 MG/DL (8.5-10.1); CARBON DIOXIDE 29 MMOL/L (21-32); CHLORIDE 119 MMOL/L (98-107); CREATININE 1.2 MG/DL (0.55-1.30); PHOSPHORUS 3.2 MG/DL (2.5-4.9); SODIUM 158 MMOL/L (136-145)
--- NOTE | 2020-06-29 07:43 | NUR ---
NURSE HAND-OFF: Important Events on Shift:NPO; wound dressing Patient Status: stable Diet: NPO; on gt feeding Pending Orders: Pending Results/Labs: Pending MD notification: Latest Vital Signs: Temperature 96.7 , Pulse 91 , B/P 119 /71 , Respiratory Rate 20 , O2 SAT 93 , Room Air, O2 Flow Rate 3.0 . Vital Sign Comment: Latest Lane Fall Score: 55 Fall Risk: High Risk Safety Measures: Call light Within Reach, Bed Alarm Zone 1, Side Rails Side Rails x3, Bed position Low and Locked. Fall Precautions: Yellow Socks Yellow Gown Door Sign Report given to Maria Del Carmen TURNER.
--- NOTE | 2020-06-29 07:58 | NUR ---
NURSE NOTES: Received report from JOHNNY Rucker. Patient observed to be awake and alert. Patient currently on room air, no s/sx of SOB/Distress, no s/sx of any pain. Feeding currently on hold for procedure of CT of abd/pelvis with contrast. Consent obtained. Patient iv line located on LAC gauge 22 running D5W at 150cc/hr. Asymptomatic, inplace and intact. Bed placed on lowest and locked, call light placed within reach and will continue to monitor.
[2020-06-29 08:00] VITALS: BP 109/59
[2020-06-29] MEDS: Amantadine 100mg cap GT SCH ×2 (09:00→17:52)
[2020-06-29] MEDS: Levemir Flexpen SUBQ SCH ×2 (09:00→21:44)
[2020-06-29] MEDS ORDERED: Vancomycin 1.25 GM in D5W 275 ML IVPB SCH (09:00)
[2020-06-29] MEDS: Aspirin Baby 81mg GT SCH (09:00)
[2020-06-29] MEDS: Sennosides 8.6mg tab GT SCH (09:00)
[2020-06-29] MEDS: Vancomycin oral 125mg/2.5ml GT SCH ×4 (09:00→21:49)
[2020-06-29] MEDS: Heparin 5000 units/ml inj SUBQ SCH ×2 (09:17→21:43)
--- NOTE | 2020-06-29 10:32 | Nephrology Progress Note ---
Assessment/Plan Problem List: (1) Hypernatremia (2) Sepsis (3) History of CVA (cerebrovascular accident) (4) Parkinson disease (5) Feeding by G-tube (6) Dehydration Assessment KELLY, resolving, serum creatinine of 1.9 now down to 1.2 Hypernatremia, dehydration, free water deficit Sepsis Diabetes mellitus [id number] GT feeding Severe protein calorie malnutrition History of CVA History of hypertension Parkinson's disease Plan June 29: Labs reviewed. Discussed with RN. Serum sodium lowering on D5W IV infusion. Patient due for CT scan of the abdomen today. Continue to monitor electrolytes. June 28: Lab reviewed. Discussed with RN. Serum sodium higher. Will start 150 cc an hour D5W. Patient off feeding waiting for a CT of the abdomen. Continue to monitor electrolytes. Try to keep the blood sugar in check. June 27: Lab reviewed. Urine sodium elevated. Renal parameters stable. Continue to administer free water for hypernatremia. June 26: Lab reviewed. Serum sodium higher. Will give D5W bolus. Continue to monitor electrolytes. June 24: Lab reviewed. Renal parameters stable. Will discontinue IV fluid. Continue her consultants. June 23: Labs reviewed. Medication list reviewed. Renal parameters stable. Blood sugar needs better control. Defer to PMD and slasher runner. June 22: Clinically stable. Labs reviewed. Blood sugar elevated. Renal parameters stable. Continue blood sugar management per slasher runner June 21: Patient is febrile today. Abnormal electrolytes addressed. Stable from renal standpoint of view. June 20: No chemistry panel done today. Stable from renal standpoint. Will order chemistry panel tomorrow June 19: Labs reviewed. Phosphorus supplement given. Stable from renal standpoint of view. June 18: Lab reviewed. Serum sodium lower. Creatinine 1.1. Continue current management. June 17: Lab reviewed. Sodium 160. Creatinine 1.3. Calcium lower at 9. Will continue D5W. June 16: Labs reviewed. Renal parameters stable. Serum calcium lowering. Serum sodium lowering. Serum creatinine 1.3. Another 1 L of D5W ordered. June 15: Lab reviewed. Serum sodium high. 1 L D5W given. Serum creatinine 1.4. Pamidronate given yesterday. Continue to monitor serum calcium. June 14: Lab reviewed. Serum calcium high corrected for low serum albumin. 60 mg pamidronate ID given. Continue to monitor renal parameters calcium and phosphorus. June 13: Lab reviewed. Medication list reviewed. Renal parameters stable. Will watch serum calcium and serum sodium. Chemistry panel tomorrow. June 12: Labs reviewed. Stable from renal standpoint of view. June 11: Labs reviewed. Stable renal parameters. June 10: Lab reviewed. Serum potassium normalized. Will give 1 L of D5W for high serum sodium. Continue per consultants. June 09: Labs reviewed. Discussed with RN. Serum potassium elevated. Suspect hemolysis. Will repeat serum potassium. DC all potassium supplements. June 08: Serum sodium higher. Will give 1 L of D5W. Renal parameters stable. Continue to monitor electrolytes. Continue per consultants. June 07: 1 bolus of D5W. Renal parameters stable. Serum sodium slightly high. Stable from renal standpoint of view. June 06: We will again discontinue the IV ordered. Stable from renal standpoint of view. Will start midodrine for low blood pressure. June 05: DC IV fluid. Potassium supplement given. Stable from renal standpoint to view. June 04: Potassium and magnesium supplement IV given, stable from renal standpoint of view. IV fluid D5W Monitor electrolytes Monitor renal parameters Hold blood pressure medication since blood pressure low Per orders, per consultants Subjective ROS Limited/Unobtainable: No Constitutional: Reports: malaise Objective Objective Last 24 Hour Vital Signs Date Time Temp Pulse Resp B/P (MAP) Pulse Ox O2 Delivery O2 Flow Rate FiO2 06/29/20 08:00 97.0 88 18 109/59 (76) 99 06/29/20 04:00 96.7 91 20 119/71 (87) 93 06/29/20 00:00 98.6 97 20 106/65 (79) 96 06/28/20 22:16 94 122/65 06/28/20 21:00 Room Air 06/28/20 20:00 98.2 94 20 122/65 (84) 94 06/28/20 16:00 97.5 92 17 120/65 (83) 99 06/28/20 12:00 97.0 89 17 104/62 (76) 98 Intake and Output 06/28/20 06/29/20 19:00 07:00 Intake Total 250 ml Output Total 600 ml 1000 ml Balance -600 ml -750 ml Free Water 200 ml Tube Feeding 50 ml Output Urine Total 600 ml 1000 ml Laboratory Tests 06/29/20 05:30: White Blood Count 14.2H, Red Blood Count 3.71L, Hemoglobin 10.7L, Hematocrit 35.5L, Mean Corpuscular Volume 96, Mean Corpuscular Hemoglobin 28.8, Mean Corpuscular Hemoglobin Concent 30.2L, Red Cell Distribution Width 15.9H, Platelet Count 385, Mean Platelet Volume 8.3, Neutrophils (%) (Auto) 75.4H, Lymphocytes (%) (Auto) 17.6L, Monocytes (%) (Auto) 5.2, Eosinophils (%) (Auto) 1.2, Basophils (%) (Auto) 0.5, Sodium Level 158H, Potassium Level 4.0, Chloride Level 119H, Carbon Dioxide Level 29, Anion Gap 10, Blood Urea Nitrogen 31H, Creatinine 1.2, Estimat Glomerular Filtration Rate > 60, Glucose Level 228#H, Calcium Level 8.7, Phosphorus Level 3.2, Magnesium Level 2.5H, Total Bilirubin 0.2, Aspartate Amino Transf (AST/SGOT) 20, Alanine Aminotransferase (ALT/SGPT) 25, Alkaline Phosphatase 219H, Total Protein 7.8, Albumin 1.9L, Globulin 5.9, Albumin/Globulin Ratio 0.3L Height (Feet): 5 Height (Inches): 5.00 Weight (Pounds): 123 General Appearance: no apparent distress Respiratory/Chest: decreased breath sounds Abdomen: distended Objective No change Eddie Nelson MD Jun 29, 2020 10:32
[2020-06-29 12:00] VITALS: BP 123/60
--- NOTE | 2020-06-29 12:10 | Infectious Diseases Prog Note ---
Assessment/Plan 79yo M with: COVID19 neg (06/01 rapid COVID PCR neg) Sespsis, recurrent MSSA bacteremia- - ?source- r/o endocarditis UTI, recurrent -06/27 Bcx NTD -06/23 Bcx Neg 2d echo no vegetations seen -06/21 rapid COVID PCR neg u/a wbc 5-10,nit neg, leuk +3; ucx >100k ESBL P.mirabilis Bx 12/15 MSSA CXR No acute process. Cdiff colitis -06/27 Cdif toxin a/b + Fever, recurrent; improving Leukocytosis, recurrent; increased; now improvnig KELLY, improving UTI, sp rx 06/01 UA w/ pyuria, UCx + P Mirabilis ESBL 06/01 BCx Neg 06/01 CXR: No acute process COVID rapid test neg H/o ESBL Proteus in UCx in Oct 2019 Renal US w/ BL cysts PMH: DM2 Parkinson's dementia Bedridden G-tube Plan: PO Vancomycin #2/- for cdiff Ancef #2 (abx d 9) for MSSA bactremia 06/27 SP Ertapenem #4, IV Vancomycin #7 06/24 SP MEropenem #4 06/10 SP audra #8 06/02 SP erta #1 06/01 SP cefepime, vanco, flagyl x1 in ED Monitor CBC/BMP f/u Bcx x2 f/u CT c/abd/p w/ to eval for abcess f/u ELMO D/w RN Thank you for this consult. [facility] will continue to follow. Subjective Allergies: Coded Allergies: No Known Allergies (Unverified , 08/27/19) afebrile >36hrs wbc improving Bcx NTD Objective Last 24 Hour Vital Signs Date Time Temp Pulse Resp B/P (MAP) Pulse Ox O2 Delivery O2 Flow Rate FiO2 06/29/20 09:00 Room Air 06/29/20 08:00 97.0 88 18 109/59 (76) 99 06/29/20 04:00 96.7 91 20 119/71 (87) 93 06/29/20 00:00 98.6 97 20 106/65 (79) 96 06/28/20 22:16 94 122/65 06/28/20 21:00 Room Air 06/28/20 20:00 98.2 94 20 122/65 (84) 94 06/28/20 16:00 97.5 92 17 120/65 (83) 99 Height (Feet): 5 Height (Inches): 5.00 Weight (Pounds): 123 GENERAL: no apparent distress. CHEST: Lungs are clear to auscultation bilaterally without wheezes or rales. CARDIOVASCULAR: regular rhythm. S1, S2 are normal without murmurs, rubs, or gallops. ABDOMEN: Soft, nontender, and nondistended. Positive bowel sounds. No evidence of hepatosplenomegaly. EXTREMITIES: Negative for clubbing, cyanosis, or edema. Microbiology Date/Time Source Procedure Growth Status 06/27/20 22:00 Blood Blood Culture - Preliminary NO GROWTH AFTER 24 HOURS Resulted 06/27/20 21:45 Blood Blood Culture - Preliminary NO GROWTH AFTER 24 HOURS Resulted 06/27/20 14:08 Stool Clostridium difficile Toxin Assay - Final Complete Laboratory Tests Test 06/29/20 05:30 White Blood Count 14.2 K/UL (4.8-10.8) H Red Blood Count 3.71 M/UL (4.70-6.10) L Hemoglobin 10.7 G/DL (14.2-18.0) L Hematocrit 35.5 % (42.0-52.0) L Mean Corpuscular Volume 96 FL (80-99) Mean Corpuscular Hemoglobin 28.8 PG (27.0-31.0) Mean Corpuscular Hemoglobin Concent 30.2 G/DL (32.0-36.0) L Red Cell Distribution Width 15.9 % (11.6-14.8) H Platelet Count 385 K/UL (150-450) Mean Platelet Volume 8.3 FL (6.5-10.1) Neutrophils (%) (Auto) 75.4 % (45.0-75.0) H Lymphocytes (%) (Auto) 17.6 % (20.0-45.0) L Monocytes (%) (Auto) 5.2 % (1.0-10.0) Eosinophils (%) (Auto) 1.2 % (0.0-3.0) Basophils (%) (Auto) 0.5 % (0.0-2.0) Sodium Level 158 MMOL/L (136-145) H Potassium Level 4.0 MMOL/L (3.5-5.1) Chloride Level 119 MMOL/L (98-107) H Carbon Dioxide Level 29 MMOL/L (21-32) Anion Gap 10 mmol/L (5-15) Blood Urea Nitrogen 31 mg/dL (7-18) H Creatinine 1.2 MG/DL (0.55-1.30) Estimat Glomerular Filtration Rate > 60 mL/min (>60) Glucose Level 228 MG/DL (74-106) #H Calcium Level 8.7 MG/DL (8.5-10.1) Phosphorus Level 3.2 MG/DL (2.5-4.9) Magnesium Level 2.5 MG/DL (1.8-2.4) H Total Bilirubin 0.2 MG/DL (0.2-1.0) Aspartate Amino Transf (AST/SGOT) 20 U/L (15-37) Alanine Aminotransferase (ALT/SGPT) 25 U/L (12-78) Alkaline Phosphatase 219 U/L (46-116) H Total Protein 7.8 G/DL (6.4-8.2) Albumin 1.9 G/DL (3.4-5.0) L Globulin 5.9 g/dL Albumin/Globulin Ratio 0.3 (1.0-2.7) L Current Medications Medications (Trade) Dose Ordered Sig/Debi Route PRN Reason Start Time Stop Time Status Last Admin Dose Admin Acetaminophen (Tylenol) 650 mg Q6H PRN GT Mild Pain (Pain Scale 1-3) 06/27/20 11:00 07/02/20 10:59 06/27/20 20:52 Amantadine HCl (Symmetrel) 100 mg TWICE A DAY GT 06/27/20 18:00 07/02/20 08:59 06/28/20 17:13 Aspirin (ASA) 81 mg DAILY GT 06/28/20 09:00 07/17/20 08:59 06/28/20 08:54 Barium Sulfate (Readi-Cat 2) 450 ml NOW PRN ORAL Radiology Procedure 06/27/20 16:45 06/29/20 16:32 Cefazolin Sodium 50 ml @ 100 mls/hr Q8HR@0100,0900,1700 IV 06/28/20 17:00 07/05/20 16:59 06/29/20 09:16 Dextrose 1,000 ml @ 150 mls/hr Q6H40M IV 06/28/20 09:15 07/28/20 09:14 06/29/20 05:36 Dextrose (Dextrose 50%) 25 ml Q30M PRN IV Hypoglycemia 06/27/20 10:30 09/20/20 06:59 Dextrose (Dextrose 50%) 50 ml Q30M PRN IV Hypoglycemia 06/27/20 10:30 09/20/20 06:59 Famotidine (Pepcid) 20 mg BID GT 06/27/20 18:00 09/01/20 17:59 06/28/20 17:13 Heparin Sodium (Porcine) (Heparin 5000 units/ml) 5,000 units EVERY 12 HOURS SUBQ 06/27/20 21:00 07/17/20 08:59 06/29/20 09:17 Insulin Aspart (NovoLOG) Q6HR SUBQ 06/27/20 12:00 09/09/20 17:59 06/29/20 06:22 Insulin Detemir (Levemir) 13 units EVERY 12 HOURS SUBQ 06/28/20 09:00 09/09/20 20:59 06/28/20 21:00 Iohexol (OMNIPAQUE-300 100ml) 100 ml ONCE PRN INJ radiology use 06/27/20 16:45 06/29/20 16:44 Metoprolol Tartrate (Lopressor) 25 mg Q12HR GT 06/27/20 21:00 09/20/20 08:59 06/28/20 22:16 Midodrine (Pro-Amatine) 2.5 mg TIDPRN PRN GT blood pressure below 100 sbp 06/27/20 11:00 09/11/20 10:59 Pravastatin Sodium (Pravachol) 20 mg BEDTIME GT 06/27/20 21:00 07/02/20 20:59 06/28/20 22:16 Sennosides (Senokot) 8.6 mg DAILY GT 06/28/20 09:00 07/02/20 08:59 06/28/20 08:54 Vancomycin HCl (Firvanq) 125 mg FOUR TIMES A DAY GT 06/28/20 13:00 07/08/20 12:59 06/28/20 21:00 Blaire Greenwood M.D. Jun 29, 2020 12:10
--- NOTE | 2020-06-29 12:57 | Internal Med Progress Note ---
Subjective Date of Service: Jun 29, 2020 Physician Name Tello Cobb Attending Physician Cirilo Rome MD Current Medications Medications (Trade) Dose Ordered Sig/Debi Route PRN Reason Start Time Stop Time Status Last Admin Dose Admin Acetaminophen (Tylenol) 650 mg Q6H PRN GT Mild Pain (Pain Scale 1-3) 06/27/20 11:00 07/02/20 10:59 06/27/20 20:52 Amantadine HCl (Symmetrel) 100 mg TWICE A DAY GT 06/27/20 18:00 07/02/20 08:59 06/28/20 17:13 Aspirin (ASA) 81 mg DAILY GT 06/28/20 09:00 07/17/20 08:59 06/28/20 08:54 Barium Sulfate (Readi-Cat 2) 450 ml NOW PRN ORAL Radiology Procedure 06/27/20 16:45 06/29/20 16:32 Cefazolin Sodium 50 ml @ 100 mls/hr Q8HR@0100,0900,1700 IV 06/28/20 17:00 07/05/20 16:59 06/29/20 09:16 Dextrose 1,000 ml @ 150 mls/hr Q6H40M IV 06/28/20 09:15 07/28/20 09:14 06/29/20 12:41 Dextrose (Dextrose 50%) 25 ml Q30M PRN IV Hypoglycemia 06/27/20 10:30 09/20/20 06:59 Dextrose (Dextrose 50%) 50 ml Q30M PRN IV Hypoglycemia 06/27/20 10:30 09/20/20 06:59 Famotidine (Pepcid) 20 mg BID GT 06/27/20 18:00 09/01/20 17:59 06/28/20 17:13 Heparin Sodium (Porcine) (Heparin 5000 units/ml) 5,000 units EVERY 12 HOURS SUBQ 06/27/20 21:00 07/17/20 08:59 06/29/20 09:17 Insulin Aspart (NovoLOG) Q6HR SUBQ 06/27/20 12:00 09/09/20 17:59 06/29/20 06:22 Insulin Detemir (Levemir) 13 units EVERY 12 HOURS SUBQ 06/28/20 09:00 09/09/20 20:59 06/28/20 21:00 Iohexol (OMNIPAQUE-300 100ml) 100 ml ONCE PRN INJ radiology use 06/27/20 16:45 06/29/20 16:44 Metoprolol Tartrate (Lopressor) 25 mg Q12HR GT 06/27/20 21:00 09/20/20 08:59 06/28/20 22:16 Midodrine (Pro-Amatine) 2.5 mg TIDPRN PRN GT blood pressure below 100 sbp 06/27/20 11:00 09/11/20 10:59 Pravastatin Sodium (Pravachol) 20 mg BEDTIME GT 06/27/20 21:00 07/02/20 20:59 06/28/20 22:16 Sennosides (Senokot) 8.6 mg DAILY GT 06/28/20 09:00 07/02/20 08:59 06/28/20 08:54 Vancomycin HCl (Firvanq) 125 mg FOUR TIMES A DAY GT 06/28/20 13:00 07/08/20 12:59 06/28/20 21:00 Allergies: Coded Allergies: No Known Allergies (Unverified , 08/27/19) ROS Limited/Unobtainable: Yes Subjective 79 YO M admitted with hyperglycemia and hypernatremia. Now UTI. Cover for Int Med-Dr Rome Objective Last Vital Signs Date Time Temp Pulse Resp B/P (MAP) Pulse Ox O2 Delivery O2 Flow Rate FiO2 06/29/20 12:00 96.8 95 19 123/60 (81) 96 06/29/20 09:00 Room Air Laboratory Tests Test 06/29/20 05:30 White Blood Count 14.2 K/UL (4.8-10.8) H Red Blood Count 3.71 M/UL (4.70-6.10) L Hemoglobin 10.7 G/DL (14.2-18.0) L Hematocrit 35.5 % (42.0-52.0) L Mean Corpuscular Volume 96 FL (80-99) Mean Corpuscular Hemoglobin 28.8 PG (27.0-31.0) Mean Corpuscular Hemoglobin Concent 30.2 G/DL (32.0-36.0) L Red Cell Distribution Width 15.9 % (11.6-14.8) H Platelet Count 385 K/UL (150-450) Mean Platelet Volume 8.3 FL (6.5-10.1) Neutrophils (%) (Auto) 75.4 % (45.0-75.0) H Lymphocytes (%) (Auto) 17.6 % (20.0-45.0) L Monocytes (%) (Auto) 5.2 % (1.0-10.0) Eosinophils (%) (Auto) 1.2 % (0.0-3.0) Basophils (%) (Auto) 0.5 % (0.0-2.0) Sodium Level 158 MMOL/L (136-145) H Potassium Level 4.0 MMOL/L (3.5-5.1) Chloride Level 119 MMOL/L (98-107) H Carbon Dioxide Level 29 MMOL/L (21-32) Anion Gap 10 mmol/L (5-15) Blood Urea Nitrogen 31 mg/dL (7-18) H Creatinine 1.2 MG/DL (0.55-1.30) Estimat Glomerular Filtration Rate > 60 mL/min (>60) Glucose Level 228 MG/DL (74-106) #H Calcium Level 8.7 MG/DL (8.5-10.1) Phosphorus Level 3.2 MG/DL (2.5-4.9) Magnesium Level 2.5 MG/DL (1.8-2.4) H Total Bilirubin 0.2 MG/DL (0.2-1.0) Aspartate Amino Transf (AST/SGOT) 20 U/L (15-37) Alanine Aminotransferase (ALT/SGPT) 25 U/L (12-78) Alkaline Phosphatase 219 U/L (46-116) H Total Protein 7.8 G/DL (6.4-8.2) Albumin 1.9 G/DL (3.4-5.0) L Globulin 5.9 g/dL Albumin/Globulin Ratio 0.3 (1.0-2.7) L Microbiology Date/Time Source Procedure Growth Status 06/27/20 22:00 Blood Blood Culture - Preliminary NO GROWTH AFTER 24 HOURS Resulted 06/27/20 21:45 Blood Blood Culture - Preliminary NO GROWTH AFTER 24 HOURS Resulted 06/27/20 14:08 Stool Clostridium difficile Toxin Assay - Final Complete Intake and Output 06/28/20 06/29/20 19:00 07:00 Intake Total 250 ml Output Total 600 ml 1000 ml Balance -600 ml -750 ml Free Water 200 ml Tube Feeding 50 ml Output Urine Total 600 ml 1000 ml Objective PHYSICAL EXAMINATION: GENERAL: The patient is a well-developed, well-nourished, thin-appearing, male, in no apparent distress. HEENT: Eyes, pupils equal and responsive to light and accommodation. Extraocular movements are intact. NECK: Supple without lymphadenopathy. CHEST: Lungs are clear to auscultation bilaterally without wheezes or rales. CARDIOVASCULAR: Slightly tachycardic, regular rhythm. S1, S2 are normal without murmurs, rubs, or gallops. ABDOMEN: Soft, nontender, and nondistended. Positive bowel sounds. No evidence of hepatosplenomegaly. Currently, no rebound or guarding noted. EXTREMITIES: Negative for clubbing, cyanosis, or edema. RECTAL: Not performed. GENITAL: Not performed. NEUROLOGIC: Cranial nerves II through XII are grossly intact without focal deficits. Assessment/Plan Assessment/Plan ASSESSMENT: This is a 79-year-old male with: 1. Hyperglycemia. 2. Hypernatremia. 3. Urinary tract infection=MDR proteus. 4. Diabetes type 2. 5. Hypertension. 6. Hypercholesterolemia. 7. Dysphagia. 8. Parkinson disease. 9. Ulcerative proctitis. 10. Protein-calorie malnutrition. 11. History of sacral decubitus ulcer stage IV. 12. Benign prostatic hypertrophy. 13. Gastroesophageal reflux disease. 14. Metabolic encephalopathy. 15. History of left hip fracture. 16. sepsis=staph aureus TREATMENT: 1. Hyperglycemia/diabetes. The patient has been placed on a protocol using NovoLog sliding scale. The patient's blood sugars have been running in 300s. Hyperglycemia may be secondary to urinary tract infection. 2. Urinary tract infection. Urine culture =MDR proteus. ABX= ertapenem and vancomycin results.ID=Dr Oliva 3. Hypertension. Continue amlodipine as above. 4. Hypercholesterolemia. Continue atorvastatin as above. 5. Dysphagia. The patient is status post PEG placement. 6. Parkinson disease. Continue amantadine as above. 7. Ulcerative proctitis. 8. Protein-calorie malnutrition. 9. Sacral decubitus ulcer stage IV. 10. Benign prostatic hypertrophy. Continue tamsulosin as above. 11. Gastroesophageal reflux disease. 12. Metabolic encephalopathy. 13. History of left hip fracture. 14. R/O endocarditis Tello Cobb MD Jun 29, 2020 12:57
--- NOTE | 2020-06-29 13:42 | NUR ---
CASE MANAGEMENT:REVIEW SI;MDR PROTEUS UTI. SEPSIS. 98.6 97 20 109/59 93% ON RA WBC 14.2 NA 158 BUN 31 BG 228 MAG 2.5 ALP 219 ALB 1.9 IS;CEFAZOLIN IV Q8 VANCOMYCIN GT QID MED SURG STATUS DCP;FROM [facility]
--- NOTE | 2020-06-29 14:30 | Surgery Progress Note ---
Surgery Progress Note Subjective Symptoms: improved, tolerating diet Objective Last 24 Hour Vital Signs Date Time Temp Pulse Resp B/P (MAP) Pulse Ox O2 Delivery O2 Flow Rate FiO2 06/29/20 12:00 96.8 95 19 123/60 (81) 96 06/29/20 09:00 Room Air 06/29/20 08:00 97.0 88 18 109/59 (76) 99 06/29/20 04:00 96.7 91 20 119/71 (87) 93 06/29/20 00:00 98.6 97 20 106/65 (79) 96 06/28/20 22:16 94 122/65 06/28/20 21:00 Room Air 06/28/20 20:00 98.2 94 20 122/65 (84) 94 06/28/20 16:00 97.5 92 17 120/65 (83) 99 I&O Intake and Output 06/28/20 06/29/20 19:00 07:00 Intake Total 250 ml Output Total 600 ml 1000 ml Balance -600 ml -750 ml Free Water 200 ml Tube Feeding 50 ml Output Urine Total 600 ml 1000 ml Dressing: saturated Wound: clean Cardiovascular: RSR Respiratory: clear Abdomen: soft, non-tender, present bowel sounds Extremities: no edema, no tenderness, no cyanosis Laboratory Tests Test 06/29/20 05:30 White Blood Count 14.2 K/UL (4.8-10.8) H Red Blood Count 3.71 M/UL (4.70-6.10) L Hemoglobin 10.7 G/DL (14.2-18.0) L Hematocrit 35.5 % (42.0-52.0) L Mean Corpuscular Volume 96 FL (80-99) Mean Corpuscular Hemoglobin 28.8 PG (27.0-31.0) Mean Corpuscular Hemoglobin Concent 30.2 G/DL (32.0-36.0) L Red Cell Distribution Width 15.9 % (11.6-14.8) H Platelet Count 385 K/UL (150-450) Mean Platelet Volume 8.3 FL (6.5-10.1) Neutrophils (%) (Auto) 75.4 % (45.0-75.0) H Lymphocytes (%) (Auto) 17.6 % (20.0-45.0) L Monocytes (%) (Auto) 5.2 % (1.0-10.0) Eosinophils (%) (Auto) 1.2 % (0.0-3.0) Basophils (%) (Auto) 0.5 % (0.0-2.0) Sodium Level 158 MMOL/L (136-145) H Potassium Level 4.0 MMOL/L (3.5-5.1) Chloride Level 119 MMOL/L (98-107) H Carbon Dioxide Level 29 MMOL/L (21-32) Anion Gap 10 mmol/L (5-15) Blood Urea Nitrogen 31 mg/dL (7-18) H Creatinine 1.2 MG/DL (0.55-1.30) Estimat Glomerular Filtration Rate > 60 mL/min (>60) Glucose Level 228 MG/DL (74-106) #H Calcium Level 8.7 MG/DL (8.5-10.1) Phosphorus Level 3.2 MG/DL (2.5-4.9) Magnesium Level 2.5 MG/DL (1.8-2.4) H Total Bilirubin 0.2 MG/DL (0.2-1.0) Aspartate Amino Transf (AST/SGOT) 20 U/L (15-37) Alanine Aminotransferase (ALT/SGPT) 25 U/L (12-78) Alkaline Phosphatase 219 U/L (46-116) H Total Protein 7.8 G/DL (6.4-8.2) Albumin 1.9 G/DL (3.4-5.0) L Globulin 5.9 g/dL Albumin/Globulin Ratio 0.3 (1.0-2.7) L Plan Problems: (1) Hypernatremia (2) Dehydration (3) Hip fracture, left (4) Diabetes mellitus (5) History of hypertension (6) Severe protein-calorie malnutrition Assessment & Plan: DAILY ESTIMATED NEEDS: Needs based on Sepsis, DM/ 54kg 30-40 kcals/kg 2838-9385 total kcals 1.25-2 g protein/kg 68-108 g total protein 25-35ml/kcal mL/kg 6889-9229 total fluid mLs NUTRITION DIAGNOSIS: * Swallowing difficulty R/T dysphagia, as evidenced by Pt is GT dep. (CURRENT TF: Glucerna 1.5 @ 30ml/hr x 24 hrs) ENTERAL NUTRITION RECOMMENDATIONS: Glucerna 1.5 @ 60ml/hr x 20 hrs to provide 1200ml, 1800kcal, 99g prot, 911ml free water, 160g carbs * Rec to INCREASE TF GOAL to 60ml/hr for 20 hrs * HOB over 30 degrees, increased water flushes * TF at goal meets 100% est needs. -------- ADDITIONAL RECOMMENDATIONS: * Calibrated bedscale wt for accurate CBW * Monitor lytes daily w/ TF, replete as needed * Pt may require increase in insulin regimen for improved BG W/ continuous TF infusion * Wound healing: DOMENICA BID, F/up w/ WC eval . (7) Acute encephalopathy (8) Pressure Ulcer Of Sacral Region, Unstageable Assessment & Plan: Pt presented on admission with purple and indurated area at Sacrococcygeal at previously compromised site(L)7cm x (W)3cm.Surrounding Hyperpigmentation at Sacrum. Non-Blanching erythema without fluctuance R heel. Non-Blanching erythema with delineated margins L heel (L)4.5cm x (W)5.5cm. L Heel is boggy . Tx.Plan: Apply Moisture Barrier Paste to Sacrum. Cover with Optifoam drsgs. Change every 3 days and prn. Apply Cavilon Skin Barrier to R and L trochanter. Cover each site with Optifoam drsgs. Change every 7 days and prn. Apply Cavilon Skin Barrier to each heel and malleoli. Cover each site with Optifoam drsgs. Change every 7 days and prn. Reposition at least every 2hours or as tolerated. Off-load heels with pillow. improving cont current care tube site okay (9) Feeding by G-tube (10) Abdominal distention (11) Multiple drug resistant organism (MDRO) culture positive (12) Sepsis (13) History of CVA (cerebrovascular accident) (14) Parkinson disease (15) Staphylococcus aureus bacteremia Assessment & Plan: repeat blood cultures negative on abx unlikely source of bacteremia from wounds. will monitor cont local wound care improving leukocytosis James Breen Jun 29, 2020 14:30
[2020-06-29 16:00] VITALS: BP 110/61
--- NOTE | 2020-06-29 17:37 | Diagnostic Imaging Report ---
Indication: Persistent leukocytosis. Assess for infection. Technique: CT of the chest, abdomen and pelvis utilizing automated exposure control with intravenous contrast. Venous scanning performed. Axial, sagittal and coronal reformats presented. CT dose: Total DLP 471.4 mGycm; CTDI vol 45.5 mGy Comparison: CT the abdomen and pelvis 10/30/2019 Findings: CT chest: There are dependent atelectatic changes in the lung bases. More focal patchy opacities noted in the left lower lobe. More pronounced atelectasis however developing pneumonia is not excluded. There is no pleural effusion or pneumothorax. Heart size within normal limits. No pericardial effusion. No pathologically enlarged hilar or mediastinal lymphadenopathy. Thyroid is unremarkable in appearance. Thoracic aorta and main pulmonary artery normal in caliber. No evidence of aortic dissection. No saddle or large central pulmonary embolism. No appreciable thrombus noted within the left atrial appendage. CT abdomen/pelvis: Hepatic contour is smooth. There is focal fat attenuation along the falciform ligament. There are no CT evident gallstones or pericholecystic inflammatory changes. Phrygian gallbladder catheter is incidentally identified. No biliary ductal dilatation. Hepatic veins and portal veins appear patent. Spleen, adrenal glands and pancreas unremarkable. No peripancreatic inflammatory changes or fluid collections. Nonobstructing calyceal stones again noted in the left kidney. No hydronephrosis bilaterally. No perinephric stranding or perinephric fluid collections. There are bilateral simple appearing renal cysts, the larger on the left kidney measures approximately 3.6 cm. The prostate is markedly enlarged and heterogeneous. There is thickening of the wall the bladder. The bladder is mildly distended despite the presence of a Adams catheter. Interval decreased stool in the rectum. There is significant wall thickening of the rectum and distal sigmoid colon suggesting a proctitis. There is surrounding pericolonic inflammatory change. Moderate stool noted in the remainder the upstream colon. There is no evidence of small bowel obstruction. The appendix is normal in caliber. There is no indwelling gastrostomy tube. Abdominal aorta is normal in caliber with moderate to severe atherosclerotic calcification. Small nonspecific mesenteric lymph nodes are noted. Bones and soft tissues: Bones are demineralized and there are multilevel degenerative changes in the spine. There is significant heterotopic bone formation about the bilateral hips, right greater than left. This is similar compared to the prior exam. There is a probable sacral decubitus ulcer. No organized/drainable subcutaneous fluid collection is noted within this region. No definite CT evidence in the adjacent osseous structures suggest acute osteomyelitis. IMPRESSION: * Patchy opacities in the left lower lobe which may be related to subsegmental atelectasis versus developing pneumonia. * Indwelling Adams catheter. Bladder wall thickening cystitis not excluded. Correlate with urinalysis. Mild distention of the bladder despite the Adams catheter. Correlate to assure appropriate catheter functioning. * Markedly enlarged and heterogeneous prostate which may be on the basis of BPH. Correlation with prostate exam and PSA recommended. * Nonobstructing left renal stone. * Marked thickening of the wall of the rectum and distal sigmoid colon suggesting a proctitis. * Interval decrease in rectal stool burden. Moderate stool burden in the remainder of the upstream colon. * Sacral decubitus ulcer. No organized/drainable subcutaneous fluid collection noted in this region. Correlation with physical exam recommended. The CT scanner at [facility] is accredited by the [employer] and the scans are performed using protocols designed to limit radiation exposure to as low as reasonably achievable to attain images of sufficient resolution adequate for diagnostic evaluation.
--- NOTE | 2020-06-29 17:41 | Pulmonology Progress Note ---
Subjective ROS Limited/Unobtainable: Yes Constitutional: Reports: no symptoms, anorexia HEENT: Repors: no symptoms Respiratory: Reports: no symptoms Cardiovascular: Reports: no symptoms Allergies: Coded Allergies: No Known Allergies (Unverified , 08/27/19) All Systems: reviewed and negative except above Objective Last 24 Hour Vital Signs Date Time Temp Pulse Resp B/P (MAP) Pulse Ox O2 Delivery O2 Flow Rate FiO2 06/29/20 12:00 96.8 95 19 123/60 (81) 96 06/29/20 09:00 Room Air 06/29/20 08:00 97.0 88 18 109/59 (76) 99 06/29/20 04:00 96.7 91 20 119/71 (87) 93 06/29/20 00:00 98.6 97 20 106/65 (79) 96 06/28/20 22:16 94 122/65 06/28/20 21:00 Room Air 06/28/20 20:00 98.2 94 20 122/65 (84) 94 Intake and Output 06/28/20 06/29/20 19:00 07:00 Intake Total 250 ml Output Total 600 ml 1000 ml Balance -600 ml -750 ml Free Water 200 ml Tube Feeding 50 ml Output Urine Total 600 ml 1000 ml General Appearance: cachetic HEENT: normocephalic, atraumatic Respiratory: chest wall non-tender, normal breath sounds Cardiovascular: normal peripheral pulses, normal rate, JVD Abdomen: normal bowel sounds, hyperactive bowel sounds Genitourinary: normal external genitalia Extremities: no clubbing Skin: no lesions 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 Lymphatic: no neck adenopathy Microbiology Date/Time Source Procedure Growth Status 06/27/20 22:00 Blood Blood Culture - Preliminary NO GROWTH AFTER 24 HOURS Resulted 06/27/20 21:45 Blood Blood Culture - Preliminary NO GROWTH AFTER 24 HOURS Resulted 06/27/20 14:08 Stool Clostridium difficile Toxin Assay - Final Complete Laboratory Tests 06/29/20 05:30: White Blood Count 14.2H, Red Blood Count 3.71L, Hemoglobin 10.7L, Hematocrit 35.5L, Mean Corpuscular Volume 96, Mean Corpuscular Hemoglobin 28.8, Mean Corpuscular Hemoglobin Concent 30.2L, Red Cell Distribution Width 15.9H, Platelet Count 385, Mean Platelet Volume 8.3, Neutrophils (%) (Auto) 75.4H, Lymphocytes (%) (Auto) 17.6L, Monocytes (%) (Auto) 5.2, Eosinophils (%) (Auto) 1.2, Basophils (%) (Auto) 0.5, Sodium Level 158H, Potassium Level 4.0, Chloride Level 119H, Carbon Dioxide Level 29, Anion Gap 10, Blood Urea Nitrogen 31H, Creatinine 1.2, Estimat Glomerular Filtration Rate > 60, Glucose Level 228#H, Calcium Level 8.7, Phosphorus Level 3.2, Magnesium Level 2.5H, Total Bilirubin 0.2, Aspartate Amino Transf (AST/SGOT) 20, Alanine Aminotransferase (ALT/SGPT) 25, Alkaline Phosphatase 219H, Total Protein 7.8, Albumin 1.9L, Globulin 5.9, Albumin/Globulin Ratio 0.3L Current Medications Medications (Trade) Dose Ordered Sig/Debi Route PRN Reason Start Time Stop Time Status Last Admin Dose Admin Acetaminophen (Tylenol) 650 mg Q6H PRN GT Mild Pain (Pain Scale 1-3) 06/27/20 11:00 07/02/20 10:59 06/27/20 20:52 Amantadine HCl (Symmetrel) 100 mg TWICE A DAY GT 06/27/20 18:00 07/02/20 08:59 06/28/20 17:13 Aspirin (ASA) 81 mg DAILY GT 06/28/20 09:00 07/17/20 08:59 06/28/20 08:54 Cefazolin Sodium 50 ml @ 100 mls/hr Q8HR@0100,0900,1700 IV 06/28/20 17:00 07/05/20 16:59 06/29/20 16:48 Dextrose 1,000 ml @ 150 mls/hr Q6H40M IV 06/28/20 09:15 07/28/20 09:14 06/29/20 12:41 Dextrose (Dextrose 50%) 25 ml Q30M PRN IV Hypoglycemia 06/27/20 10:30 09/20/20 06:59 Dextrose (Dextrose 50%) 50 ml Q30M PRN IV Hypoglycemia 06/27/20 10:30 09/20/20 06:59 Famotidine (Pepcid) 20 mg BID GT 06/27/20 18:00 09/01/20 17:59 06/28/20 17:13 Heparin Sodium (Porcine) (Heparin 5000 units/ml) 5,000 units EVERY 12 HOURS SUBQ 06/27/20 21:00 07/17/20 08:59 06/29/20 09:17 Insulin Aspart (NovoLOG) Q6HR SUBQ 06/27/20 12:00 09/09/20 17:59 06/29/20 06:22 Insulin Detemir (Levemir) 13 units EVERY 12 HOURS SUBQ 06/28/20 09:00 09/09/20 20:59 06/28/20 21:00 Metoprolol Tartrate (Lopressor) 25 mg Q12HR GT 06/27/20 21:00 09/20/20 08:59 06/28/20 22:16 Midodrine (Pro-Amatine) 2.5 mg TIDPRN PRN GT blood pressure below 100 sbp 06/27/20 11:00 09/11/20 10:59 Pravastatin Sodium (Pravachol) 20 mg BEDTIME GT 06/27/20 21:00 07/02/20 20:59 06/28/20 22:16 Sennosides (Senokot) 8.6 mg DAILY GT 06/28/20 09:00 07/02/20 08:59 06/28/20 08:54 Vancomycin HCl (Firvanq) 125 mg FOUR TIMES A DAY GT 06/28/20 13:00 07/08/20 12:59 06/29/20 13:10 Assessment/Plan Problems: (1) Clostridium difficile colitis (2) Staphylococcus aureus bacteremia (3) Sepsis (4) Multiple drug resistant organism (MDRO) culture positive (5) Hypernatremia (6) History of CVA (cerebrovascular accident) (7) History of hypertension (8) Parkinson disease (9) Severe protein-calorie malnutrition (10) Feeding by G-tube (11) Diabetes mellitus Assessment/Plan still leukocytosis and higher today C-diff positive Na is still high still low grade temp repeat all cultures , Urine has proteus,,MDR COVID Negative sliding scale all reviewed, symptomatic treatment dvt prophylaxis Latanya Mckeon MD Jun 29, 2020 17:41
--- NOTE | 2020-06-29 19:44 | NUR ---
NURSE NOTES: NURSE HAND-OFF: Important Events on Shift:CT Scan Pelvis and abd with contrast done Patient Status: stable Diet: glucerna 1.5 50cc H20 250 Q8 Pending Orders: n/a Pending Results/Labs:n/a Pending MD notification:n/a Latest Vital Signs: Temperature 97.3 , Pulse 108 , B/P 110 /61 , Respiratory Rate 18 , O2 SAT 98 , Room Air, O2 Flow Rate 3.0 . Vital Sign Comment: stable Latest Lane Fall Score: 55 Fall Risk: High Risk Safety Measures: Call light Within Reach, Bed Alarm Zone 1, Side Rails Side Rails x3, Bed position Low and Locked. Fall Precautions: Yellow Socks Yellow Gown Door Sign Report given to JOHNNY Vail.
--- NOTE | 2020-06-29 19:50 | NUR ---
NURSE NOTES: The patient is alert and oriented x1 and does not seen to be in any acute distress at this time. The Resp is even and unlabored and the bilateral lung sounds are all Clear on auscultation.The patient is on Gtube feeding, placement check was done and it is intact. HOB is upright due to aspiration precaution.On skin assessment, there is a bilateral trochanter DTI,Sacral DTI and the bilateral heel. The resident also has a Left hand 20g that is patent and intact. The bed in low level, call light within reach. will continue to monitor as indicated
[2020-06-29 20:00] VITALS: BP 115/53
[2020-06-30] VITALS: BP 104/52
[2020-06-30] MEDS: ceFAZolin 2gm/50ml Premix 50 ML IV SCH ×3 (00:22→17:10)
[2020-06-30 04:00] VITALS: BP 116/69
--- NOTE | 2020-06-30 05:00 | NUR ---
NURSE NOTES: The patient ia alert and stable and tolerating his Gtube feeding . He does not seem to be in any distress at this time. Will continue to monitor
[2020-06-30] MEDS: NovoLOG Insulin Flexpen SUBQ SCH ×4 (06:30→17:29)
--- NOTE | 2020-06-30 06:40 | General Progress Note ---
Subjective ROS Limited/Unobtainable: Yes Allergies: Coded Allergies: No Known Allergies (Unverified , 08/27/19) Subjective events noted and interval notes reviewed glucose values are stable Item Value Date Time Bedside Blood Glucose 200 mg/dl H 06/30/20 0630 Bedside Blood Glucose 110 mg/dl 06/30/20 0000 Bedside Blood Glucose 203 mg/dl H 06/29/20 2144 Bedside Blood Glucose 203 mg/dl H 06/29/20 1800 Bedside Blood Glucose 97 mg/dl 06/29/20 1200 Bedside Blood Glucose 99 mg/dl 06/29/20 0900 Bedside Blood Glucose 258 mg/dl H 06/29/20 0630 Bedside Blood Glucose 160 mg/dl H 06/29/20 0041 Objective Last 24 Hour Vital Signs Date Time Temp Pulse Resp B/P (MAP) Pulse Ox O2 Delivery O2 Flow Rate FiO2 06/30/20 04:00 97.5 66 20 116/69 (85) 97 06/30/20 00:00 98.1 89 20 104/52 (69) 98 06/29/20 21:40 95 115/53 06/29/20 21:00 Room Air 06/29/20 20:00 97.4 95 20 115/53 (73) 100 06/29/20 16:00 97.3 108 18 110/61 (77) 98 06/29/20 12:00 96.8 95 19 123/60 (81) 96 06/29/20 09:00 Room Air 06/29/20 08:00 97.0 88 18 109/59 (76) 99 Intake and Output 06/29/20 06/30/20 19:00 07:00 Intake Total 650 ml 2100 ml Output Total 800 ml Balance -150 ml 2100 ml Free Water 250 ml 250 ml IV Total 300 ml 1500 ml Tube Feeding 100 ml 350 ml Output Urine Total 800 ml # Bowel Movements 2 Laboratory Tests 06/29/20 09:16: POC Whole Blood Glucose [Pending] 06/29/20 11:39: POC Whole Blood Glucose 97 06/29/20 12:44: POC Whole Blood Glucose 147H 06/29/20 16:56: POC Whole Blood Glucose 203H Height (Feet): 5 Height (Inches): 5.00 Weight (Pounds): 123 General Appearance: no apparent distress Neck: normal alignment Cardiovascular: normal rate Respiratory/Chest: lungs clear Abdomen: normal bowel sounds Pelvis: normal external exam Objective Current Medications Medications (Trade) Dose Ordered Sig/Debi Route PRN Reason Start Time Stop Time Status Last Admin Dose Admin Acetaminophen (Tylenol) 650 mg Q6H PRN GT Mild Pain (Pain Scale 1-3) 06/27/20 11:00 07/02/20 10:59 06/27/20 20:52 Amantadine HCl (Symmetrel) 100 mg TWICE A DAY GT 06/27/20 18:00 07/02/20 08:59 06/29/20 17:52 Aspirin (ASA) 81 mg DAILY GT 06/28/20 09:00 07/17/20 08:59 06/28/20 08:54 Cefazolin Sodium 50 ml @ 100 mls/hr Q8HR@0100,0900,1700 IV 06/28/20 17:00 07/05/20 16:59 06/30/20 00:22 Dextrose 1,000 ml @ 150 mls/hr Q6H40M IV 06/28/20 09:15 07/28/20 09:14 06/30/20 01:32 Dextrose (Dextrose 50%) 25 ml Q30M PRN IV Hypoglycemia 06/27/20 10:30 09/20/20 06:59 Dextrose (Dextrose 50%) 50 ml Q30M PRN IV Hypoglycemia 06/27/20 10:30 09/20/20 06:59 Famotidine (Pepcid) 20 mg BID GT 06/27/20 18:00 09/01/20 17:59 06/29/20 17:52 Heparin Sodium (Porcine) (Heparin 5000 units/ml) 5,000 units EVERY 12 HOURS SUBQ 06/27/20 21:00 07/17/20 08:59 06/29/20 21:43 Insulin Aspart (NovoLOG) Q6HR SUBQ 06/27/20 12:00 09/09/20 17:59 06/30/20 06:30 Insulin Detemir (Levemir) 13 units EVERY 12 HOURS SUBQ 06/28/20 09:00 09/09/20 20:59 06/29/20 21:44 Metoprolol Tartrate (Lopressor) 25 mg Q12HR GT 06/27/20 21:00 09/20/20 08:59 06/29/20 21:40 Midodrine (Pro-Amatine) 2.5 mg TIDPRN PRN GT blood pressure below 100 sbp 06/27/20 11:00 09/11/20 10:59 Pravastatin Sodium (Pravachol) 20 mg BEDTIME GT 06/27/20 21:00 07/02/20 20:59 06/29/20 21:40 Sennosides (Senokot) 8.6 mg DAILY GT 06/28/20 09:00 07/02/20 08:59 06/28/20 08:54 Vancomycin HCl (Firvanq) 125 mg FOUR TIMES A DAY GT 06/28/20 13:00 07/08/20 12:59 06/29/20 21:49 Assessment/Plan Problem List: (1) Hypernatremia ICD Codes: E87.0 - Hyperosmolality and hypernatremia SNOMED: 888428998 (2) Feeding by G-tube ICD Codes: Z93.1 - Gastrostomy status SNOMED: 896383529, 025895842, 538491192 (3) Diabetes mellitus ICD Codes: E11.9 - Type 2 diabetes mellitus without complications SNOMED: 86904076 (4) History of CVA (cerebrovascular accident) ICD Codes: Z86.73 - Personal history of transient ischemic attack (TIA), and cerebral infarction without residual deficits SNOMED: 219738747 (5) Parkinson disease ICD Codes: G20 - Parkinson's disease SNOMED: 94501448 Assessment/Plan: continue Levemir 13 units bid continue Novolog sliding scale high dose every 6 hours rGegory Pastrana MD Jun 30, 2020 06:40
[2020-06-30 07:28] LABS: ALANINE AMINOTRANSFERASE 19 U/L (12-78); ALBUMIN 1.9 G/DL (3.4-5.0); ALBUMIN/GLOBULIN RATIO 0.3 (1.0-2.7); ALKALINE PHOSPHATASE 219 U/L (46-116); ANION GAP 8 mmol/L (5-15); ASPARTATE AMINO TRANSFERASE 18 U/L (15-37); BILIRUBIN,TOTAL 0.2 MG/DL (0.2-1.0); BLOOD UREA NITROGEN 25 mg/dL (7-18); CALCIUM 8.5 MG/DL (8.5-10.1); CARBON DIOXIDE 30 MMOL/L (21-32); CHLORIDE 110 MMOL/L (98-107); POTASSIUM 4.1 MMOL/L (3.5-5.1); SODIUM 148 MMOL/L (136-145)
[2020-06-30 07:35] LABS: BASOPHILS % (AUTO) 0.5 % (0.0-2.0); EOSINOPHILS % (AUTO) 1.6 % (0.0-3.0); HEMATOCRIT 32.3 % (42.0-52.0); HEMOGLOBIN 9.8 G/DL (14.2-18.0); LYMPHOCYTES % (AUTO) 22.8 % (20.0-45.0); MEAN CORPUSCULAR VOLUME 96 FL (80-99); MONOCYTES % (AUTO) 5.1 % (1.0-10.0); PLATELET COUNT 399 K/UL (150-450); RED BLOOD COUNT 3.38 M/UL (4.70-6.10); RED CELL DISTRIBUTION WIDTH 15.8 % (11.6-14.8); WHITE BLOOD COUNT 11.1 K/UL (4.8-10.8)
--- NOTE | 2020-06-30 07:52 | NUR ---
HAND-OFF: Report given to Mikal RN's.
[2020-06-30 08:00] VITALS: BP 118/73
--- NOTE | 2020-06-30 08:29 | NUR ---
NURSE NOTES: Received report from Yared RN. patient resting in bed comfortably. G-tube patent and receiving Glucerna 1.5 @ 50cc/hr. Patient is AOx1, awake but not responding. Lung sound clear, bowel sounds present. Patient has an IV on Left hand 20 gauge, he is getting D5 @ 150 cc/hr due to low sodium. He is accucheck Q6hrs and is on a P200 mattress. per report he has a sacral DTI.
[2020-06-30] MEDS: Heparin 5000 units/ml inj SUBQ SCH ×2 (09:07→22:09)
[2020-06-30] MEDS: Aspirin Baby 81mg GT SCH (09:08)
[2020-06-30] MEDS: Amantadine 100mg cap GT SCH ×2 (09:08→17:10)
[2020-06-30] MEDS: Sennosides 8.6mg tab GT SCH (09:08)
[2020-06-30] MEDS: Vancomycin oral 125mg/2.5ml GT SCH ×4 (09:11→22:11)
[2020-06-30] MEDS: Levemir Flexpen SUBQ SCH ×2 (09:18→22:10)
--- NOTE | 2020-06-30 10:41 | Surgery Progress Note ---
Surgery Progress Note Subjective Additional Comments no acute events comfortable labs reviewed Objective Last 24 Hour Vital Signs Date Time Temp Pulse Resp B/P (MAP) Pulse Ox O2 Delivery O2 Flow Rate FiO2 06/30/20 09:08 69 118/73 06/30/20 09:00 Room Air 06/30/20 08:00 97.3 69 20 118/73 (88) 98 06/30/20 04:00 97.5 66 20 116/69 (85) 97 06/30/20 00:00 98.1 89 20 104/52 (69) 98 06/29/20 21:40 95 115/53 06/29/20 21:00 Room Air 06/29/20 20:00 97.4 95 20 115/53 (73) 100 06/29/20 16:00 97.3 108 18 110/61 (77) 98 06/29/20 12:00 96.8 95 19 123/60 (81) 96 I&O Intake and Output 06/29/20 06/30/20 19:00 07:00 Intake Total 650 ml 2550 ml Output Total 800 ml 900 ml Balance -150 ml 1650 ml Free Water 250 ml 500 ml IV Total 300 ml 1500 ml Tube Feeding 100 ml 550 ml Output Urine Total 800 ml 900 ml # Bowel Movements 2 Cardiovascular: RSR Respiratory: clear Abdomen: soft, non-tender, present bowel sounds Extremities: no edema, no tenderness, no cyanosis Laboratory Tests Test 06/29/20 11:39 06/29/20 12:44 06/29/20 16:56 06/30/20 05:46 POC Whole Blood Glucose 97 MG/DL (74-106) 147 MG/DL (74-106) H 203 MG/DL (74-106) H White Blood Count 11.1 K/UL (4.8-10.8) H Red Blood Count 3.38 M/UL (4.70-6.10) L Hemoglobin 9.8 G/DL (14.2-18.0) L Hematocrit 32.3 % (42.0-52.0) L Mean Corpuscular Volume 96 FL (80-99) Mean Corpuscular Hemoglobin 29.0 PG (27.0-31.0) Mean Corpuscular Hemoglobin Concent 30.3 G/DL (32.0-36.0) L Red Cell Distribution Width 15.8 % (11.6-14.8) H Platelet Count 399 K/UL (150-450) Mean Platelet Volume 7.9 FL (6.5-10.1) Neutrophils (%) (Auto) 70.0 % (45.0-75.0) Lymphocytes (%) (Auto) 22.8 % (20.0-45.0) Monocytes (%) (Auto) 5.1 % (1.0-10.0) Eosinophils (%) (Auto) 1.6 % (0.0-3.0) Basophils (%) (Auto) 0.5 % (0.0-2.0) Sodium Level 148 MMOL/L (136-145) H Potassium Level 4.1 MMOL/L (3.5-5.1) Chloride Level 110 MMOL/L (98-107) H Carbon Dioxide Level 30 MMOL/L (21-32) Anion Gap 8 mmol/L (5-15) Blood Urea Nitrogen 25 mg/dL (7-18) H Creatinine 1.0 MG/DL (0.55-1.30) Estimat Glomerular Filtration Rate > 60 mL/min (>60) Glucose Level 212 MG/DL (74-106) H Calcium Level 8.5 MG/DL (8.5-10.1) Phosphorus Level 3.0 MG/DL (2.5-4.9) Total Bilirubin 0.2 MG/DL (0.2-1.0) Aspartate Amino Transf (AST/SGOT) 18 U/L (15-37) Alanine Aminotransferase (ALT/SGPT) 19 U/L (12-78) Alkaline Phosphatase 219 U/L (46-116) H Total Protein 7.5 G/DL (6.4-8.2) Albumin 1.9 G/DL (3.4-5.0) L Globulin 5.6 g/dL Albumin/Globulin Ratio 0.3 (1.0-2.7) L Test 06/30/20 09:16 POC Whole Blood Glucose 132 MG/DL (74-106) H Plan Problems: (1) Hypernatremia (2) Dehydration (3) Hip fracture, left (4) Diabetes mellitus (5) History of hypertension (6) Severe protein-calorie malnutrition Assessment & Plan: DAILY ESTIMATED NEEDS: Needs based on Sepsis, DM/ 54kg 30-40 kcals/kg 3575-3683 total kcals 1.25-2 g protein/kg 68-108 g total protein 25-35ml/kcal mL/kg 1932-7403 total fluid mLs NUTRITION DIAGNOSIS: * Swallowing difficulty R/T dysphagia, as evidenced by Pt is GT dep. (CURRENT TF: Glucerna 1.5 @ 30ml/hr x 24 hrs) ENTERAL NUTRITION RECOMMENDATIONS: Glucerna 1.5 @ 60ml/hr x 20 hrs to provide 1200ml, 1800kcal, 99g prot, 911ml free water, 160g carbs * Rec to INCREASE TF GOAL to 60ml/hr for 20 hrs * HOB over 30 degrees, increased water flushes * TF at goal meets 100% est needs. -------- ADDITIONAL RECOMMENDATIONS: * Calibrated bedscale wt for accurate CBW * Monitor lytes daily w/ TF, replete as needed * Pt may require increase in insulin regimen for improved BG W/ continuous TF infusion * Wound healing: DOMENICA BID, F/up w/ WC eval . (7) Acute encephalopathy (8) Pressure Ulcer Of Sacral Region, Unstageable Assessment & Plan: Pt presented on admission with purple and indurated area at Sacrococcygeal at previously compromised site(L)7cm x (W)3cm.Surrounding Hyperpigmentation at Sacrum. Non-Blanching erythema without fluctuance R heel. Non-Blanching erythema with delineated margins L heel (L)4.5cm x (W)5.5cm. L Heel is boggy . Tx.Plan: Apply Moisture Barrier Paste to Sacrum. Cover with Optifoam drsgs. Change every 3 days and prn. Apply Cavilon Skin Barrier to R and L trochanter. Cover each site with Optifoam drsgs. Change every 7 days and prn. Apply Cavilon Skin Barrier to each heel and malleoli. Cover each site with Optifoam drsgs. Change every 7 days and prn. Reposition at least every 2hours or as tolerated. Off-load heels with pillow. improving cont current care tube site okay (9) Feeding by G-tube (10) Abdominal distention (11) Multiple drug resistant organism (MDRO) culture positive (12) Sepsis (13) History of CVA (cerebrovascular accident) (14) Parkinson disease (15) Staphylococcus aureus bacteremia Assessment & Plan: repeat blood cultures negative on abx unlikely source of bacteremia from wounds. will monitor cont local wound care improving leukocytosis James Breen Jun 30, 2020 10:41
--- NOTE | 2020-06-30 10:52 | NUR ---
NURSE NOTES: Dr Greenwood notified about discharge planning back to SNF. MD will review to see if continuation of antibiotics is needed.
--- NOTE | 2020-06-30 11:09 | NUR ---
RD ASSESSMENT & RECOMMENDATIONS SEE CARE ACTIVITY FOR COMPLETE ASSESSMENT DAILY ESTIMATED NEEDS: Needs based on Sepsis, DM/ 54kg 30-40 kcals/kg 0748-6430 total kcals 1.25-2 g protein/kg 68-108 g total protein 25-35ml/kcal mL/kg 1953-6977 total fluid mLs NUTRITION DIAGNOSIS: * Swallowing difficulty R/T dysphagia, as evidenced by Pt is GT dep. CURRENT TF:Glucerna 1.5 @ 50ml/hr x24 hrs ENTERAL NUTRITION RECOMMENDATIONS: Glucerna 1.5 @ 50ml/hr x 24 hrs to provide 1200ml, 1800kcal, 99g prot, 911ml free water * Maintain current TF meets 100% est needs * HOB over 30 degrees * Water flush per MD ADDITIONAL RECOMMENDATIONS: * Calibrated bedscale wt for accurate CBW * Monitor lytes daily w/ TF, replete as needed * Rec DC D5 IVF and increase H20 flush instead for BG control -> endo following, monitor BGs closely * Wound healing: add DOMENICA BID * Watch K w/ current TF, need to change TF-> K 5.3 on 06/18 -> now wnl .
--- NOTE | 2020-06-30 11:10 | Infectious Diseases Prog Note ---
Assessment/Plan 79yo M with: COVID19 neg (06/01 rapid COVID PCR neg) Sespsis, recurrent MSSA bacteremia- - ?from PNA- low grade, no vegetations on 2d echo- .endocarditis cannot be excluded UTI, recurrent Probable PNA -06/29 CT c/abd/p w/ : Patchy opacities in the left lower lobe which may be related to subsegmental atelectasis versus developing pneumonia. Indwelling Adams catheter. Bladder wall thickening cystitis not excluded. Mild distention of the bladder despite the Adams catheter. Markedly enlarged and heterogeneous prostate which may be on the basis of BPH. Nonobstructing left renal stone. Marked thickening of the wall of the rectum and distal sigmoid colon suggesting a proctitis. Interval decrease in rectal stool burden. Moderate stool burden in the remainder of the upstream colon. Sacral decubitus ulcer. No organized/drai nable subcutaneous fluid collection noted in this region. -06/27 Bcx NTD -06/23 Bcx Neg 2d echo no vegetations seen -06/21 rapid COVID PCR neg u/a wbc 5-10,nit neg, leuk +3; ucx >100k ESBL P.mirabilis Bx 12/15 MSSA CXR No acute process. Cdiff colitis -06/27 Cdif toxin a/b + Fever, recurrent; improving Leukocytosis, recurrent; increased; now improvnig KELLY, improving UTI, sp rx 06/01 UA w/ pyuria, UCx + P Mirabilis ESBL 06/01 BCx Neg 06/01 CXR: No acute process COVID rapid test neg H/o ESBL Proteus in UCx in Oct 2019 Renal US w/ BL cysts PMH: DM2 Parkinson's dementia Bedridden G-tube Plan: PO Vancomycin #3/-14 for cdiff Ancef #3 (abx d 10) for MSSA bactremia 06/27 SP Ertapenem #4, IV Vancomycin #7 06/24 SP MEropenem #4 06/10 SP audra #8 06/02 SP erta #1 06/01 SP cefepime, vanco, flagyl x1 in ED Monitor CBC/BMP f/u Bcx x2 f/u CT c/abd/p w/ to eval for abcess Recomended ELMO- but unable to obtained consent D/w RN Thank you for this consult. [facility] will continue to follow. Subjective Allergies: Coded Allergies: No Known Allergies (Unverified , 08/27/19) afebrile >48hrs wbc improving repeat Bcx NTD Objective Last 24 Hour Vital Signs Date Time Temp Pulse Resp B/P (MAP) Pulse Ox O2 Delivery O2 Flow Rate FiO2 06/30/20 09:08 69 118/73 06/30/20 09:00 Room Air 06/30/20 08:00 97.3 69 20 118/73 (88) 98 06/30/20 04:00 97.5 66 20 116/69 (85) 97 06/30/20 00:00 98.1 89 20 104/52 (69) 98 06/29/20 21:40 95 115/53 06/29/20 21:00 Room Air 06/29/20 20:00 97.4 95 20 115/53 (73) 100 06/29/20 16:00 97.3 108 18 110/61 (77) 98 06/29/20 12:00 96.8 95 19 123/60 (81) 96 Height (Feet): 5 Height (Inches): 5.00 Weight (Pounds): 123 GENERAL: no apparent distress. CHEST: Lungs are clear to auscultation bilaterally without wheezes or rales. CARDIOVASCULAR: regular rhythm. S1, S2 are normal without murmurs, rubs, or gallops. ABDOMEN: Soft, nontender, and nondistended. Positive bowel sounds. No evidence of hepatosplenomegaly. EXTREMITIES: Negative for clubbing, cyanosis, or edema. Microbiology Date/Time Source Procedure Growth Status 06/27/20 22:00 Blood Blood Culture - Preliminary NO GROWTH AFTER 48 HOURS Resulted 06/27/20 21:45 Blood Blood Culture - Preliminary NO GROWTH AFTER 48 HOURS Resulted 06/27/20 14:08 Stool Clostridium difficile Toxin Assay - Final Complete Laboratory Tests Test 06/29/20 11:39 06/29/20 12:44 06/29/20 16:56 06/30/20 05:46 POC Whole Blood Glucose 97 MG/DL (74-106) 147 MG/DL (74-106) H 203 MG/DL (74-106) H White Blood Count 11.1 K/UL (4.8-10.8) H Red Blood Count 3.38 M/UL (4.70-6.10) L Hemoglobin 9.8 G/DL (14.2-18.0) L Hematocrit 32.3 % (42.0-52.0) L Mean Corpuscular Volume 96 FL (80-99) Mean Corpuscular Hemoglobin 29.0 PG (27.0-31.0) Mean Corpuscular Hemoglobin Concent 30.3 G/DL (32.0-36.0) L Red Cell Distribution Width 15.8 % (11.6-14.8) H Platelet Count 399 K/UL (150-450) Mean Platelet Volume 7.9 FL (6.5-10.1) Neutrophils (%) (Auto) 70.0 % (45.0-75.0) Lymphocytes (%) (Auto) 22.8 % (20.0-45.0) Monocytes (%) (Auto) 5.1 % (1.0-10.0) Eosinophils (%) (Auto) 1.6 % (0.0-3.0) Basophils (%) (Auto) 0.5 % (0.0-2.0) Sodium Level 148 MMOL/L (136-145) H Potassium Level 4.1 MMOL/L (3.5-5.1) Chloride Level 110 MMOL/L (98-107) H Carbon Dioxide Level 30 MMOL/L (21-32) Anion Gap 8 mmol/L (5-15) Blood Urea Nitrogen 25 mg/dL (7-18) H Creatinine 1.0 MG/DL (0.55-1.30) Estimat Glomerular Filtration Rate > 60 mL/min (>60) Glucose Level 212 MG/DL (74-106) H Calcium Level 8.5 MG/DL (8.5-10.1) Phosphorus Level 3.0 MG/DL (2.5-4.9) Total Bilirubin 0.2 MG/DL (0.2-1.0) Aspartate Amino Transf (AST/SGOT) 18 U/L (15-37) Alanine Aminotransferase (ALT/SGPT) 19 U/L (12-78) Alkaline Phosphatase 219 U/L (46-116) H Total Protein 7.5 G/DL (6.4-8.2) Albumin 1.9 G/DL (3.4-5.0) L Globulin 5.6 g/dL Albumin/Globulin Ratio 0.3 (1.0-2.7) L Test 06/30/20 09:16 POC Whole Blood Glucose 132 MG/DL (74-106) H Current Medications Medications (Trade) Dose Ordered Sig/Debi Route PRN Reason Start Time Stop Time Status Last Admin Dose Admin Acetaminophen (Tylenol) 650 mg Q6H PRN GT Mild Pain (Pain Scale 1-3) 06/27/20 11:00 07/02/20 10:59 06/27/20 20:52 Amantadine HCl (Symmetrel) 100 mg TWICE A DAY GT 06/27/20 18:00 07/02/20 08:59 06/30/20 09:08 Aspirin (ASA) 81 mg DAILY GT 06/28/20 09:00 07/17/20 08:59 06/30/20 09:08 Cefazolin Sodium 50 ml @ 100 mls/hr Q8HR@0100,0900,1700 IV 06/28/20 17:00 07/05/20 16:59 06/30/20 09:11 Dextrose 1,000 ml @ 150 mls/hr Q6H40M IV 06/28/20 09:15 07/28/20 09:14 06/30/20 09:11 Dextrose (Dextrose 50%) 25 ml Q30M PRN IV Hypoglycemia 06/27/20 10:30 09/20/20 06:59 Dextrose (Dextrose 50%) 50 ml Q30M PRN IV Hypoglycemia 06/27/20 10:30 09/20/20 06:59 Famotidine (Pepcid) 20 mg BID GT 06/27/20 18:00 09/01/20 17:59 06/30/20 09:08 Heparin Sodium (Porcine) (Heparin 5000 units/ml) 5,000 units EVERY 12 HOURS SUBQ 06/27/20 21:00 07/17/20 08:59 06/30/20 09:07 Insulin Aspart (NovoLOG) Q6HR SUBQ 06/27/20 12:00 09/09/20 17:59 06/30/20 06:30 Insulin Detemir (Levemir) 13 units EVERY 12 HOURS SUBQ 06/28/20 09:00 09/09/20 20:59 06/30/20 09:18 Metoprolol Tartrate (Lopressor) 25 mg Q12HR GT 06/27/20 21:00 12/8/20 08:59 06/30/20 09:08 Midodrine (Pro-Amatine) 2.5 mg TIDPRN PRN GT blood pressure below 100 sbp 06/27/20 11:00 09/11/20 10:59 Pravastatin Sodium (Pravachol) 20 mg BEDTIME GT 06/27/20 21:00 07/02/20 20:59 06/29/20 21:40 Sennosides (Senokot) 8.6 mg DAILY GT 06/28/20 09:00 07/02/20 08:59 06/30/20 09:08 Vancomycin HCl (Firvanq) 125 mg FOUR TIMES A DAY GT 06/28/20 13:00 07/08/20 12:59 06/30/20 09:11 Blaire Greenwood M.D. Jun 30, 2020 11:10
[2020-06-30 12:00] VITALS: BP 120/54
--- NOTE | 2020-06-30 12:13 | NUR ---
NURSE NOTES: Received an order from Dr Cobb to get cardiology consult with Dr Kelley. Spoke to Dr Kelley and he will review the patient.
--- NOTE | 2020-06-30 12:27 | NUR ---
BUSINESS RELATIONS MANAGER NOTE PER JOHNNY MACKEY, DR LOPEZ RECOMMENDS ELMO TO RULE OUT ENDOCARDITIS. NARENDRA INFORMED CM THAT DR MEDINA PLACED ORDER FOR CARDIO CONSULT.
--- NOTE | 2020-06-30 12:52 | Pulmonology Progress Note ---
Subjective ROS Limited/Unobtainable: Yes Constitutional: Reports: no symptoms, anorexia HEENT: Repors: no symptoms Respiratory: Reports: no symptoms Cardiovascular: Reports: no symptoms Allergies: Coded Allergies: No Known Allergies (Unverified , 08/27/19) All Systems: reviewed and negative except above Objective Last 24 Hour Vital Signs Date Time Temp Pulse Resp B/P (MAP) Pulse Ox O2 Delivery O2 Flow Rate FiO2 06/30/20 12:00 98.1 63 18 120/54 (76) 100 06/30/20 09:08 69 118/73 06/30/20 09:00 Room Air 06/30/20 08:00 97.3 69 20 118/73 (88) 98 06/30/20 04:00 97.5 66 20 116/69 (85) 97 06/30/20 00:00 98.1 89 20 104/52 (69) 98 06/29/20 21:40 95 115/53 06/29/20 21:00 Room Air 06/29/20 20:00 97.4 95 20 115/53 (73) 100 06/29/20 16:00 97.3 108 18 110/61 (77) 98 Intake and Output 06/29/20 06/30/20 19:00 07:00 Intake Total 650 ml 2550 ml Output Total 800 ml 900 ml Balance -150 ml 1650 ml Free Water 250 ml 500 ml IV Total 300 ml 1500 ml Tube Feeding 100 ml 550 ml Output Urine Total 800 ml 900 ml # Bowel Movements 2 General Appearance: cachetic HEENT: normocephalic, atraumatic Respiratory: chest wall non-tender, normal breath sounds Cardiovascular: normal peripheral pulses, normal rate, JVD Abdomen: normal bowel sounds, hyperactive bowel sounds Genitourinary: normal external genitalia Extremities: no clubbing Skin: no lesions Neurologic: lift supervisor II-XII grossly normal Lymphatic: no neck adenopathy Microbiology Date/Time Source Procedure Growth Status 06/27/20 22:00 Blood Blood Culture - Preliminary NO GROWTH AFTER 48 HOURS Resulted 06/27/20 21:45 Blood Blood Culture - Preliminary NO GROWTH AFTER 48 HOURS Resulted 06/27/20 14:08 Stool Clostridium difficile Toxin Assay - Final Complete Laboratory Tests 06/29/20 16:56: POC Whole Blood Glucose 203H 06/30/20 05:46: White Blood Count 11.1H, Red Blood Count 3.38L, Hemoglobin 9.8L, Hematocrit 32.3L, Mean Corpuscular Volume 96, Mean Corpuscular Hemoglobin 29.0, Mean Corpuscular Hemoglobin Concent 30.3L, Red Cell Distribution Width 15.8H, Platelet Count 399, Mean Platelet Volume 7.9, Neutrophils (%) (Auto) 70.0, Lymphocytes (%) (Auto) 22.8, Monocytes (%) (Auto) 5.1, Eosinophils (%) (Auto) 1.6, Basophils (%) (Auto) 0.5, Sodium Level 148H, Potassium Level 4.1, Chloride Level 110H, Carbon Dioxide Level 30, Anion Gap 8, Blood Urea Nitrogen 25H, Creatinine 1.0, Estimat Glomerular Filtration Rate > 60, Glucose Level 212H, Calcium Level 8.5, Phosphorus Level 3.0, Total Bilirubin 0.2, Aspartate Amino Transf (AST/SGOT) 18, Alanine Aminotransferase (ALT/SGPT) 19, Alkaline Phosphatase 219H, Total Protein 7.5, Albumin 1.9L, Globulin 5.6, Albumin/Globulin Ratio 0.3L 06/30/20 09:16: POC Whole Blood Glucose 132H Current Medications Medications (Trade) Dose Ordered Sig/Debi Route PRN Reason Start Time Stop Time Status Last Admin Dose Admin Acetaminophen (Tylenol) 650 mg Q6H PRN GT Mild Pain (Pain Scale 1-3) 06/27/20 11:00 07/02/20 10:59 06/27/20 20:52 Amantadine HCl (Symmetrel) 100 mg TWICE A DAY GT 06/27/20 18:00 07/02/20 08:59 06/30/20 09:08 Aspirin (ASA) 81 mg DAILY GT 06/28/20 09:00 07/17/20 08:59 06/30/20 09:08 Cefazolin Sodium 50 ml @ 100 mls/hr Q8HR@0100,0900,1700 IV 06/28/20 17:00 07/05/20 16:59 06/30/20 09:11 Dextrose 1,000 ml @ 150 mls/hr Q6H40M IV 06/28/20 09:15 07/28/20 09:14 06/30/20 09:11 Dextrose (Dextrose 50%) 25 ml Q30M PRN IV Hypoglycemia 06/27/20 10:30 09/20/20 06:59 Dextrose (Dextrose 50%) 50 ml Q30M PRN IV Hypoglycemia 06/27/20 10:30 09/20/20 06:59 Famotidine (Pepcid) 20 mg BID GT 06/27/20 18:00 09/01/20 17:59 06/30/20 09:08 Heparin Sodium (Porcine) (Heparin 5000 units/ml) 5,000 units EVERY 12 HOURS SUBQ 06/27/20 21:00 07/17/20 08:59 06/30/20 09:07 Insulin Aspart (NovoLOG) Q6HR SUBQ 06/27/20 12:00 09/09/20 17:59 06/30/20 06:30 Insulin Detemir (Levemir) 13 units EVERY 12 HOURS SUBQ 06/28/20 09:00 09/09/20 20:59 06/30/20 09:18 Metoprolol Tartrate (Lopressor) 25 mg Q12HR GT 06/27/20 21:00 09/20/20 08:59 06/30/20 09:08 Midodrine (Pro-Amatine) 2.5 mg TIDPRN PRN GT blood pressure below 100 sbp 06/27/20 11:00 09/11/20 10:59 Pravastatin Sodium (Pravachol) 20 mg BEDTIME GT 06/27/20 21:00 07/02/20 20:59 06/29/20 21:40 Sennosides (Senokot) 8.6 mg DAILY GT 06/28/20 09:00 07/02/20 08:59 06/30/20 09:08 Vancomycin HCl (Firvanq) 125 mg FOUR TIMES A DAY GT 06/28/20 13:00 07/08/20 12:59 06/30/20 09:11 Assessment/Plan Problems: (1) Clostridium difficile colitis (2) Staphylococcus aureus bacteremia (3) Sepsis (4) Multiple drug resistant organism (MDRO) culture positive (5) Hypernatremia (6) History of CVA (cerebrovascular accident) (7) History of hypertension (8) Parkinson disease (9) Severe protein-calorie malnutrition (10) Feeding by G-tube (11) Diabetes mellitus Assessment/Plan wbc still high C-diff positive Na is still high still low grade temp repeat all cultures , Urine has proteus,,MDR COVID Negative sliding scale all reviewed, symptomatic treatment dvt prophylaxis Latanya Mckeon MD Jun 30, 2020 12:52
--- NOTE | 2020-06-30 15:16 | Nephrology Progress Note ---
Assessment/Plan Problem List: (1) Hypernatremia (2) Sepsis (3) History of CVA (cerebrovascular accident) (4) Parkinson disease (5) Feeding by G-tube (6) Dehydration Assessment KELLY, resolving, serum creatinine of 1.9 now down to 1.2 Hypernatremia, dehydration, free water deficit Sepsis Diabetes mellitus [id number] GT feeding Severe protein calorie malnutrition History of CVA History of hypertension Parkinson's disease Plan June 30: Lab reviewed. Serum sodium is lowering. Other electrolytes and renal parameters stable. Continue as is. June 29: Labs reviewed. Discussed with RN. Serum sodium lowering on D5W IV infusion. Patient due for CT scan of the abdomen today. Continue to monitor electrolytes. June 28: Lab reviewed. Discussed with RN. Serum sodium higher. Will start 150 cc an hour D5W. Patient off feeding waiting for a CT of the abdomen. Continue to monitor electrolytes. Try to keep the blood sugar in check. June 27: Lab reviewed. Urine sodium elevated. Renal parameters stable. Continue to administer free water for hypernatremia. June 26: Lab reviewed. Serum sodium higher. Will give D5W bolus. Continue to monitor electrolytes. June 24: Lab reviewed. Renal parameters stable. Will discontinue IV fluid. Continue her consultants. June 23: Labs reviewed. Medication list reviewed. Renal parameters stable. Blood sugar needs better control. Defer to PMD and maintenance engineer oil field. June 22: Clinically stable. Labs reviewed. Blood sugar elevated. Renal parameters stable. Continue blood sugar management per maintenance engineer oil field June 21: Patient is febrile today. Abnormal electrolytes addressed. Stable from renal standpoint of view. June 20: No chemistry panel done today. Stable from renal standpoint. Will order chemistry panel tomorrow June 19: Labs reviewed. Phosphorus supplement given. Stable from renal standpoint of view. June 18: Lab reviewed. Serum sodium lower. Creatinine 1.1. Continue current management. June 17: Lab reviewed. Sodium 160. Creatinine 1.3. Calcium lower at 9. Will continue D5W. June 16: Labs reviewed. Renal parameters stable. Serum calcium lowering. Serum sodium lowering. Serum creatinine 1.3. Another 1 L of D5W ordered. June 15: Lab reviewed. Serum sodium high. 1 L D5W given. Serum creatinine 1.4. Pamidronate given yesterday. Continue to monitor serum calcium. June 14: Lab reviewed. Serum calcium high corrected for low serum albumin. 60 mg pamidronate ID given. Continue to monitor renal parameters calcium and phosphorus. June 13: Lab reviewed. Medication list reviewed. Renal parameters stable. Will watch serum calcium and serum sodium. Chemistry panel tomorrow. June 12: Labs reviewed. Stable from renal standpoint of view. June 11: Labs reviewed. Stable renal parameters. June 10: Lab reviewed. Serum potassium normalized. Will give 1 L of D5W for high serum sodium. Continue per consultants. June 09: Labs reviewed. Discussed with RN. Serum potassium elevated. Suspect hemolysis. Will repeat serum potassium. DC all potassium supplements. June 08: Serum sodium higher. Will give 1 L of D5W. Renal parameters stable. Continue to monitor electrolytes. Continue per consultants. June 07: 1 bolus of D5W. Renal parameters stable. Serum sodium slightly high. Stable from renal standpoint of view. June 06: We will again discontinue the IV ordered. Stable from renal standpoint of view. Will start midodrine for low blood pressure. June 05: DC IV fluid. Potassium supplement given. Stable from renal standpoint to view. June 04: Potassium and magnesium supplement IV given, stable from renal standpoint of view. IV fluid D5W Monitor electrolytes Monitor renal parameters Hold blood pressure medication since blood pressure low Per orders, per consultants Subjective ROS Limited/Unobtainable: No Constitutional: Reports: malaise Objective Objective Last 24 Hour Vital Signs Date Time Temp Pulse Resp B/P (MAP) Pulse Ox O2 Delivery O2 Flow Rate FiO2 06/30/20 12:00 98.1 63 18 120/54 (76) 100 06/30/20 09:08 69 118/73 06/30/20 09:00 Room Air 06/30/20 08:00 97.3 69 20 118/73 (88) 98 06/30/20 04:00 97.5 66 20 116/69 (85) 97 06/30/20 00:00 98.1 89 20 104/52 (69) 98 06/29/20 21:40 95 115/53 06/29/20 21:00 Room Air 06/29/20 20:00 97.4 95 20 115/53 (73) 100 06/29/20 16:00 97.3 108 18 110/61 (77) 98 Intake and Output 06/29/20 06/30/20 19:00 07:00 Intake Total 650 ml 2550 ml Output Total 800 ml 900 ml Balance -150 ml 1650 ml Free Water 250 ml 500 ml IV Total 300 ml 1500 ml Tube Feeding 100 ml 550 ml Output Urine Total 800 ml 900 ml # Bowel Movements 2 Laboratory Tests 06/29/20 16:56: POC Whole Blood Glucose 203H 06/30/20 05:46: White Blood Count 11.1H, Red Blood Count 3.38L, Hemoglobin 9.8L, Hematocrit 32.3L, Mean Corpuscular Volume 96, Mean Corpuscular Hemoglobin 29.0, Mean Corpuscular Hemoglobin Concent 30.3L, Red Cell Distribution Width 15.8H, Platelet Count 399, Mean Platelet Volume 7.9, Neutrophils (%) (Auto) 70.0, Lymphocytes (%) (Auto) 22.8, Monocytes (%) (Auto) 5.1, Eosinophils (%) (Auto) 1.6, Basophils (%) (Auto) 0.5, Sodium Level 148H, Potassium Level 4.1, Chloride Level 110H, Carbon Dioxide Level 30, Anion Gap 8, Blood Urea Nitrogen 25H, Creatinine 1.0, Estimat Glomerular Filtration Rate > 60, Glucose Level 212H, Calcium Level 8.5, Phosphorus Level 3.0, Total Bilirubin 0.2, Aspartate Amino Transf (AST/SGOT) 18, Alanine Aminotransferase (ALT/SGPT) 19, Alkaline Phosphatase 219H, Total Protein 7.5, Albumin 1.9L, Globulin 5.6, Albumin/Globulin Ratio 0.3L 06/30/20 09:16: POC Whole Blood Glucose 132H Height (Feet): 5 Height (Inches): 5.00 Weight (Pounds): 123 General Appearance: no apparent distress Cardiovascular: normal rate Respiratory/Chest: lungs clear Abdomen: soft Objective No change Eddie Nelson MD Jun 30, 2020 15:16
[2020-06-30 16:00] VITALS: BP 124/63
--- NOTE | 2020-06-30 19:46 | NUR ---
NURSE HAND-OFF: Important Events on Shift new physician consult with , cardio for ELMO r/o endocarditis Patient Status: stable Diet: glucerna 1.5@50/hr Pending Orders: ELMO Pending Results/Labs:n/a Pending MD notification:n/a Latest Vital Signs: Temperature 98.3 , Pulse 67 , B/P 124 /63 , Respiratory Rate 18 , O2 SAT 99 , Room Air, O2 Flow Rate 3.0 . Vital Sign Comment: stable Latest Laen Fall Score: 55 Fall Risk: High Risk Safety Measures: Call light Within Reach, Bed Alarm Zone 1, Side Rails Side Rails x3, Bed position Low and Locked. Fall Precautions: Yellow Socks Yellow Gown Door Sign Report given to MOGJAN Correa.
[2020-06-30 20:00] VITALS: BP 121/67
--- NOTE | 2020-06-30 20:00 | NUR ---
NURSE NOTES: RECEIVED PATIENT LYING IN BED, EYES OPEN, NON VERBAL, HEAD OF BED ELEVATED/ASPIRATION PRECAUTION , ALL NEEDS ANTICIPATED AND MET BY NURSING STAFF. NO SIGNS AND SYMPTOMS OF ACUTE CARDIO RESPIRATORY DISTRESS/SHORTNESS OF BREATH, NO PERIPHERAL EDEMA NOTED. ABDOMEN SOFT/NON DISTENDED/AUDIBLE BOWEL SOUNDS, G TUBE INTACT, TOLERATING FEEDING, NO GASTRIC RESIDUAL ASPIRATED, NO REPORT OF N/V/D, CHRISTINE CATHETER INTACT FOR URINARY RETENTION, DRAINING YELLOW URINE VIA GARAVIATY, NO SEDEMENT NOTED. REPOSITIONED FOR COMFORT/PRESSURE RELIEF, TOLERATED WELL. SIDE RAILS UP X3/BED IN LOWEST POSITION FOR SAFETY, FREQUENT ROUNDING FOR SAFETY/NEEDS. WILL CONTINUE WITH CURRENT PLAN OF CARE. NAD.
--- NOTE | 2020-06-30 20:11 | Internal Med Progress Note ---
Subjective Date of Service: Jun 30, 2020 Physician Name CobbTello Attending Physician Cirilo Rome MD Current Medications Medications (Trade) Dose Ordered Sig/Debi Route PRN Reason Start Time Stop Time Status Last Admin Dose Admin Acetaminophen (Tylenol) 650 mg Q6H PRN GT Mild Pain (Pain Scale 1-3) 06/27/20 11:00 07/02/20 10:59 06/27/20 20:52 Amantadine HCl (Symmetrel) 100 mg TWICE A DAY GT 06/27/20 18:00 07/02/20 08:59 06/30/20 17:10 Aspirin (ASA) 81 mg DAILY GT 06/28/20 09:00 07/17/20 08:59 06/30/20 09:08 Cefazolin Sodium 50 ml @ 100 mls/hr Q8HR@0100,0900,1700 IV 06/28/20 17:00 07/05/20 16:59 06/30/20 17:10 Dextrose 1,000 ml @ 150 mls/hr Q6H40M IV 06/28/20 09:15 07/28/20 09:14 06/30/20 14:51 Dextrose (Dextrose 50%) 25 ml Q30M PRN IV Hypoglycemia 06/27/20 10:30 09/20/20 06:59 Dextrose (Dextrose 50%) 50 ml Q30M PRN IV Hypoglycemia 06/27/20 10:30 09/20/20 06:59 Famotidine (Pepcid) 20 mg BID GT 06/27/20 18:00 09/01/20 17:59 06/30/20 17:10 Heparin Sodium (Porcine) (Heparin 5000 units/ml) 5,000 units EVERY 12 HOURS SUBQ 06/27/20 21:00 07/17/20 08:59 06/30/20 09:07 Insulin Aspart (NovoLOG) Q6HR SUBQ 06/27/20 12:00 09/09/20 17:59 06/30/20 17:29 Insulin Detemir (Levemir) 13 units EVERY 12 HOURS SUBQ 06/28/20 09:00 09/09/20 20:59 06/30/20 09:18 Metoprolol Tartrate (Lopressor) 25 mg Q12HR GT 06/27/20 21:00 09/20/20 08:59 06/30/20 09:08 Midodrine (Pro-Amatine) 2.5 mg TIDPRN PRN GT blood pressure below 100 sbp 06/27/20 11:00 09/11/20 10:59 Pravastatin Sodium (Pravachol) 20 mg BEDTIME GT 06/27/20 21:00 07/02/20 20:59 06/29/20 21:40 Sennosides (Senokot) 8.6 mg DAILY GT 06/28/20 09:00 07/02/20 08:59 06/30/20 09:08 Vancomycin HCl (Firvanq) 125 mg FOUR TIMES A DAY GT 06/28/20 13:00 07/08/20 12:59 06/30/20 17:20 Allergies: Coded Allergies: No Known Allergies (Unverified , 08/27/19) ROS Limited/Unobtainable: Yes Subjective 79 YO M admitted with hyperglycemia and hypernatremia. Now UTI. Cover for Int Dusty-Dr Rome Objective Last Vital Signs Date Time Temp Pulse Resp B/P (MAP) Pulse Ox O2 Delivery O2 Flow Rate FiO2 06/30/20 16:00 98.3 67 18 124/63 (83) 99 06/30/20 09:00 Room Air Laboratory Tests Test 06/30/20 05:46 06/30/20 09:16 White Blood Count 11.1 K/UL (4.8-10.8) H Red Blood Count 3.38 M/UL (4.70-6.10) L Hemoglobin 9.8 G/DL (14.2-18.0) L Hematocrit 32.3 % (42.0-52.0) L Mean Corpuscular Volume 96 FL (80-99) Mean Corpuscular Hemoglobin 29.0 PG (27.0-31.0) Mean Corpuscular Hemoglobin Concent 30.3 G/DL (32.0-36.0) L Red Cell Distribution Width 15.8 % (11.6-14.8) H Platelet Count 399 K/UL (150-450) Mean Platelet Volume 7.9 FL (6.5-10.1) Neutrophils (%) (Auto) 70.0 % (45.0-75.0) Lymphocytes (%) (Auto) 22.8 % (20.0-45.0) Monocytes (%) (Auto) 5.1 % (1.0-10.0) Eosinophils (%) (Auto) 1.6 % (0.0-3.0) Basophils (%) (Auto) 0.5 % (0.0-2.0) Sodium Level 148 MMOL/L (136-145) H Potassium Level 4.1 MMOL/L (3.5-5.1) Chloride Level 110 MMOL/L (98-107) H Carbon Dioxide Level 30 MMOL/L (21-32) Anion Gap 8 mmol/L (5-15) Blood Urea Nitrogen 25 mg/dL (7-18) H Creatinine 1.0 MG/DL (0.55-1.30) Estimat Glomerular Filtration Rate > 60 mL/min (>60) Glucose Level 212 MG/DL (74-106) H Calcium Level 8.5 MG/DL (8.5-10.1) Phosphorus Level 3.0 MG/DL (2.5-4.9) Total Bilirubin 0.2 MG/DL (0.2-1.0) Aspartate Amino Transf (AST/SGOT) 18 U/L (15-37) Alanine Aminotransferase (ALT/SGPT) 19 U/L (12-78) Alkaline Phosphatase 219 U/L (46-116) H Total Protein 7.5 G/DL (6.4-8.2) Albumin 1.9 G/DL (3.4-5.0) L Globulin 5.6 g/dL Albumin/Globulin Ratio 0.3 (1.0-2.7) L POC Whole Blood Glucose 132 MG/DL (74-106) H Microbiology Date/Time Source Procedure Growth Status 06/27/20 22:00 Blood Blood Culture - Preliminary NO GROWTH AFTER 48 HOURS Resulted 06/27/20 21:45 Blood Blood Culture - Preliminary NO GROWTH AFTER 48 HOURS Resulted Intake and Output 06/29/20 06/30/20 19:00 07:00 Intake Total 650 ml 2600 ml Output Total 800 ml 900 ml Balance -150 ml 1700 ml Free Water 250 ml 500 ml IV Total 300 ml 1500 ml Tube Feeding 100 ml 600 ml Output Urine Total 800 ml 900 ml # Bowel Movements 2 Objective PHYSICAL EXAMINATION: GENERAL: The patient is a well-developed, well-nourished, thin-appearing, male, in no apparent distress. HEENT: Eyes, pupils equal and responsive to light and accommodation. Extraocular movements are intact. NECK: Supple without lymphadenopathy. CHEST: Lungs are clear to auscultation bilaterally without wheezes or rales. CARDIOVASCULAR: Slightly tachycardic, regular rhythm. S1, S2 are normal without murmurs, rubs, or gallops. ABDOMEN: Soft, nontender, and nondistended. Positive bowel sounds. No evidence of hepatosplenomegaly. Currently, no rebound or guarding noted. EXTREMITIES: Negative for clubbing, cyanosis, or edema. RECTAL: Not performed. GENITAL: Not performed. NEUROLOGIC: Cranial nerves II through XII are grossly intact without focal deficits. Assessment/Plan Assessment/Plan ASSESSMENT: This is a 79-year-old male with: 1. Hyperglycemia. 2. Hypernatremia. 3. Urinary tract infection=MDR proteus. 4. Diabetes type 2. 5. Hypertension. 6. Hypercholesterolemia. 7. Dysphagia. 8. Parkinson disease. 9. Ulcerative proctitis. 10. Protein-calorie malnutrition. 11. History of sacral decubitus ulcer stage IV. 12. Benign prostatic hypertrophy. 13. Gastroesophageal reflux disease. 14. Metabolic encephalopathy. 15. History of left hip fracture. 16. sepsis=staph aureus TREATMENT: 1. Hyperglycemia/diabetes. The patient has been placed on a protocol using NovoLog sliding scale. The patient's blood sugars have been running in 300s. Hyperglycemia may be secondary to urinary tract infection. 2. Urinary tract infection. Urine culture =MDR proteus. ABX= ertapenem and vancomycin results.ID=Dr Oliva 3. Hypertension. Continue amlodipine as above. 4. Hypercholesterolemia. Continue atorvastatin as above. 5. Dysphagia. The patient is status post PEG placement. 6. Parkinson disease. Continue amantadine as above. 7. Ulcerative proctitis. 8. Protein-calorie malnutrition. 9. Sacral decubitus ulcer stage IV. 10. Benign prostatic hypertrophy. Continue tamsulosin as above. 11. Gastroesophageal reflux disease. 12. Metabolic encephalopathy. 13. History of left hip fracture. 14. R/O endocarditis Tello Cobb MD Jun 30, 2020 20:11
--- NOTE | 2020-06-30 20:59 | Cardiology Progress Note ---
Assessment/Plan Assessment/Plan pt chart reviwed need casey but nto able to consent s/w help to identy next of kin for consent or need bioethics consult for consent if not emergent Objective Last 24 Hour Vital Signs Date Time Temp Pulse Resp B/P (MAP) Pulse Ox O2 Delivery O2 Flow Rate FiO2 06/30/20 16:00 98.3 67 18 124/63 (83) 99 06/30/20 12:00 98.1 63 18 120/54 (76) 100 06/30/20 09:08 69 118/73 06/30/20 09:00 Room Air 06/30/20 08:00 97.3 69 20 118/73 (88) 98 06/30/20 04:00 97.5 66 20 116/69 (85) 97 06/30/20 00:00 98.1 89 20 104/52 (69) 98 06/29/20 21:40 95 115/53 06/29/20 21:00 Room Air Intake and Output 06/29/20 06/30/20 19:00 07:00 Intake Total 650 ml 2600 ml Output Total 800 ml 900 ml Balance -150 ml 1700 ml Free Water 250 ml 500 ml IV Total 300 ml 1500 ml Tube Feeding 100 ml 600 ml Output Urine Total 800 ml 900 ml # Bowel Movements 2 Laboratory Tests Test 06/30/20 05:46 06/30/20 09:16 White Blood Count 11.1 K/UL (4.8-10.8) H Red Blood Count 3.38 M/UL (4.70-6.10) L Hemoglobin 9.8 G/DL (14.2-18.0) L Hematocrit 32.3 % (42.0-52.0) L Mean Corpuscular Volume 96 FL (80-99) Mean Corpuscular Hemoglobin 29.0 PG (27.0-31.0) Mean Corpuscular Hemoglobin Concent 30.3 G/DL (32.0-36.0) L Red Cell Distribution Width 15.8 % (11.6-14.8) H Platelet Count 399 K/UL (150-450) Mean Platelet Volume 7.9 FL (6.5-10.1) Neutrophils (%) (Auto) 70.0 % (45.0-75.0) Lymphocytes (%) (Auto) 22.8 % (20.0-45.0) Monocytes (%) (Auto) 5.1 % (1.0-10.0) Eosinophils (%) (Auto) 1.6 % (0.0-3.0) Basophils (%) (Auto) 0.5 % (0.0-2.0) Sodium Level 148 MMOL/L (136-145) H Potassium Level 4.1 MMOL/L (3.5-5.1) Chloride Level 110 MMOL/L (98-107) H Carbon Dioxide Level 30 MMOL/L (21-32) Anion Gap 8 mmol/L (5-15) Blood Urea Nitrogen 25 mg/dL (7-18) H Creatinine 1.0 MG/DL (0.55-1.30) Estimat Glomerular Filtration Rate > 60 mL/min (>60) Glucose Level 212 MG/DL (74-106) H Calcium Level 8.5 MG/DL (8.5-10.1) Phosphorus Level 3.0 MG/DL (2.5-4.9) Total Bilirubin 0.2 MG/DL (0.2-1.0) Aspartate Amino Transf (AST/SGOT) 18 U/L (15-37) Alanine Aminotransferase (ALT/SGPT) 19 U/L (12-78) Alkaline Phosphatase 219 U/L (46-116) H Total Protein 7.5 G/DL (6.4-8.2) Albumin 1.9 G/DL (3.4-5.0) L Globulin 5.6 g/dL Albumin/Globulin Ratio 0.3 (1.0-2.7) L POC Whole Blood Glucose 132 MG/DL (74-106) H Microbiology Date/Time Source Procedure Growth Status 06/27/20 22:00 Blood Blood Culture - Preliminary NO GROWTH AFTER 48 HOURS Resulted 06/27/20 21:45 Blood Blood Culture - Preliminary NO GROWTH AFTER 48 HOURS Resulted Mamadou Kelley MD Jun 30, 2020 20:59
[2020-07-01] VITALS: BP 124/61
[2020-07-01] MEDS: NovoLOG Insulin Flexpen SUBQ SCH ×4 (00:25→18:08)
[2020-07-01] MEDS: ceFAZolin 2gm/50ml Premix 50 ML IV SCH ×3 (00:37→16:42)
[2020-07-01 04:00] VITALS: BP 101/51
--- NOTE | 2020-07-01 06:27 | General Progress Note ---
Subjective ROS Limited/Unobtainable: Yes Allergies: Coded Allergies: No Known Allergies (Unverified , 08/27/19) Subjective events noted and interval notes reviewed glucose values slightly elevated Item Value Date Time Bedside Blood Glucose 234 mg/dl H 07/01/20 0603 Bedside Blood Glucose 178 mg/dl H 07/01/20 0025 Bedside Blood Glucose 197 mg/dl H 06/30/20 2210 Bedside Blood Glucose 197 mg/dl H 06/30/20 1729 Bedside Blood Glucose 120 mg/dl 06/30/20 1200 Bedside Blood Glucose 132 mg/dl H 06/30/20 0918 Bedside Blood Glucose 200 mg/dl H 06/30/20 0630 Bedside Blood Glucose 110 mg/dl 06/30/20 0000 Objective Last 24 Hour Vital Signs Date Time Temp Pulse Resp B/P (MAP) Pulse Ox O2 Delivery O2 Flow Rate FiO2 07/01/20 00:00 99.6 99 20 124/61 (82) 99 06/30/20 22:11 92 127/61 06/30/20 21:00 Room Air 06/30/20 20:00 98.7 69 20 121/67 (85) 97 06/30/20 16:00 98.3 67 18 124/63 (83) 99 06/30/20 12:00 98.1 63 18 120/54 (76) 100 06/30/20 09:08 69 118/73 06/30/20 09:00 Room Air 06/30/20 08:00 97.3 69 20 118/73 (88) 98 Intake and Output 06/30/20 07/01/20 19:00 07:00 Intake Total 2300 ml 1610 ml Output Total 1350 ml Balance 2300 ml 260 ml Free Water 250 ml 310 ml IV Total 1450 ml 950 ml Tube Feeding 600 ml 350 ml Output Urine Total 1350 ml # Voids 1 # Bowel Movements 2 Laboratory Tests 06/30/20 09:16: POC Whole Blood Glucose 132H Height (Feet): 5 Height (Inches): 5.00 Weight (Pounds): 123 General Appearance: no apparent distress Neck: normal alignment Cardiovascular: normal rate Respiratory/Chest: lungs clear Abdomen: normal bowel sounds Objective Current Medications Medications (Trade) Dose Ordered Sig/Debi Route PRN Reason Start Time Stop Time Status Last Admin Dose Admin Acetaminophen (Tylenol) 650 mg Q6H PRN GT Mild Pain (Pain Scale 1-3) 06/27/20 11:00 07/02/20 10:59 06/27/20 20:52 Amantadine HCl (Symmetrel) 100 mg TWICE A DAY GT 06/27/20 18:00 07/02/20 08:59 06/30/20 17:10 Aspirin (ASA) 81 mg DAILY GT 06/28/20 09:00 07/17/20 08:59 06/30/20 09:08 Cefazolin Sodium 50 ml @ 100 mls/hr Q8HR@0100,0900,1700 IV 06/28/20 17:00 07/05/20 16:59 07/01/20 00:37 Dextrose 1,000 ml @ 150 mls/hr Q6H40M IV 06/28/20 09:15 07/28/20 09:14 07/01/20 04:00 Dextrose (Dextrose 50%) 25 ml Q30M PRN IV Hypoglycemia 06/27/20 10:30 09/20/20 06:59 Dextrose (Dextrose 50%) 50 ml Q30M PRN IV Hypoglycemia 06/27/20 10:30 09/20/20 06:59 Famotidine (Pepcid) 20 mg BID GT 06/27/20 18:00 09/01/20 17:59 06/30/20 17:10 Heparin Sodium (Porcine) (Heparin 5000 units/ml) 5,000 units EVERY 12 HOURS SUBQ 06/27/20 21:00 07/17/20 08:59 06/30/20 22:09 Insulin Aspart (NovoLOG) Q6HR SUBQ 06/27/20 12:00 09/09/20 17:59 07/01/20 06:02 Insulin Detemir (Levemir) 13 units EVERY 12 HOURS SUBQ 06/28/20 09:00 09/09/20 20:59 06/30/20 22:10 Metoprolol Tartrate (Lopressor) 25 mg Q12HR GT 06/27/20 21:00 09/20/20 08:59 06/30/20 22:11 Midodrine (Pro-Amatine) 2.5 mg TIDPRN PRN GT blood pressure below 100 sbp 06/27/20 11:00 09/11/20 10:59 Pravastatin Sodium (Pravachol) 20 mg BEDTIME GT 06/27/20 21:00 07/02/20 20:59 06/30/20 22:11 Sennosides (Senokot) 8.6 mg DAILY GT 06/28/20 09:00 07/02/20 08:59 06/30/20 09:08 Vancomycin HCl (Firvanq) 125 mg FOUR TIMES A DAY GT 06/28/20 13:00 07/08/20 12:59 06/30/20 22:11 Assessment/Plan Problem List: (1) Hypernatremia ICD Codes: E87.0 - Hyperosmolality and hypernatremia SNOMED: 013067801 (2) Feeding by G-tube ICD Codes: Z93.1 - Gastrostomy status SNOMED: 847815946, 735280100, 608724521 (3) Diabetes mellitus ICD Codes: E11.9 - Type 2 diabetes mellitus without complications SNOMED: 46017091 (4) History of CVA (cerebrovascular accident) ICD Codes: Z86.73 - Personal history of transient ischemic attack (TIA), and cerebral infarction without residual deficits SNOMED: 930787597 (5) Parkinson disease ICD Codes: G20 - Parkinson's disease SNOMED: 08640545 Assessment/Plan: increase Levemir 13 to 15 units bid continue Novolog sliding scale high dose every 6 hours Gregory Pastrana MD Jul 01, 2020 06:27
--- NOTE | 2020-07-01 06:34 | NUR ---
NURSE NOTES: SAFETY MAINTAINED, NO SIGNIFICANT CHANGE OF CONDITION NOTED. RESTED WELL. NAD.
--- NOTE | 2020-07-01 07:37 | NUR ---
NURSE NOTES: Received report from JOHNNY Busby. Patient seen in bed comfortably, AAOx1, bed bound. G-tube patient and receiving Glucerna 1.5 @ 50cc/hr and tolerating well. Iv site patent and intact. on room air, breathing is even and unlabored, with no SOB noted at this time. Adams catheter patent and anchored draining yellow urine via gravity. Bed is locked and placed in lowest position with bed alarm on. call light within reach. Will continue to monitor
[2020-07-01 07:45] LABS: BASOPHILS % (AUTO) 0.5 % (0.0-2.0); EOSINOPHILS % (AUTO) 0.6 % (0.0-3.0); HEMATOCRIT 32.7 % (42.0-52.0); HEMOGLOBIN 10.2 G/DL (14.2-18.0); LYMPHOCYTES % (AUTO) 20.4 % (20.0-45.0); MEAN CORPUSCULAR VOLUME 93 FL (80-99); MONOCYTES % (AUTO) 4.1 % (1.0-10.0); NEUTROPHILS % (AUTO) 74.5 % (45.0-75.0); PLATELET COUNT 454 K/UL (150-450); RED CELL DISTRIBUTION WIDTH 15.5 % (11.6-14.8); WHITE BLOOD COUNT 12.4 K/UL (4.8-10.8)
[2020-07-01 08:00] VITALS: BP 104/55
[2020-07-01 08:14] LABS: ANION GAP 9 mmol/L (5-15); BLOOD UREA NITROGEN 21 mg/dL (7-18); CALCIUM 8.3 MG/DL (8.5-10.1); CARBON DIOXIDE 29 MMOL/L (21-32); CHLORIDE 104 MMOL/L (98-107); CREATININE 1.1 MG/DL (0.55-1.30); SODIUM 142 MMOL/L (136-145)
[2020-07-01] MEDS: Levemir Flexpen SUBQ SCH ×2 (08:39→22:43)
[2020-07-01] MEDS: Sennosides 8.6mg tab GT SCH (08:45)
[2020-07-01] MEDS: Amantadine 100mg cap GT SCH ×2 (08:45→18:12)
[2020-07-01] MEDS: Aspirin Baby 81mg GT SCH (08:45)
[2020-07-01] MEDS: Vancomycin oral 125mg/2.5ml GT SCH ×4 (08:46→22:38)
[2020-07-01] MEDS: Heparin 5000 units/ml inj SUBQ SCH ×2 (08:46→22:42)
--- NOTE | 2020-07-01 09:37 | NUR ---
DIAGRAMMER NOTE SW received a consult to locate the family. Pt opened his eyes but non-verbal. This SW was unable to obtain information from pt. SW spoke w/ Beth from [employer] [phone], stating that there is no family emergency contact listed. Pt has been a resident since September 2019. Per chart review, emergency contacts are Mamadou Warner (top case assembler) [phone]. SW attempted to call this number, incorrect number. JAIME spoke w/ pt's former geriatric case manager from [employer], Kendell Castellanos [phone], confirmed that pt does not have a family member, but roman catholic friends only.
--- NOTE | 2020-07-01 10:35 | Nephrology Progress Note ---
Assessment/Plan Problem List: (1) Hypernatremia (2) Sepsis (3) History of CVA (cerebrovascular accident) (4) Parkinson disease (5) Feeding by G-tube (6) Dehydration Assessment KELLY, resolving, serum creatinine of 1.9 now down to 1.2 Hypernatremia, dehydration, free water deficit Sepsis Diabetes mellitus [id number] GT feeding Severe protein calorie malnutrition History of CVA History of hypertension Parkinson's disease Plan July 01: Lab reviewed. Serum sodium lowering. Will decrease D5W to 50 cc an hour. Continue per consultants. Meds reviewed. Continue to monitor electrolytes and renal parameters. June 30: Lab reviewed. Serum sodium is lowering. Other electrolytes and renal parameters stable. Continue as is. June 29: Labs reviewed. Discussed with RN. Serum sodium lowering on D5W IV infusion. Patient due for CT scan of the abdomen today. Continue to monitor electrolytes. June 28: Lab reviewed. Discussed with RN. Serum sodium higher. Will start 150 cc an hour D5W. Patient off feeding waiting for a CT of the abdomen. Continue to monitor electrolytes. Try to keep the blood sugar in check. June 27: Lab reviewed. Urine sodium elevated. Renal parameters stable. Continue to administer free water for hypernatremia. June 26: Lab reviewed. Serum sodium higher. Will give D5W bolus. Continue to monitor electrolytes. June 24: Lab reviewed. Renal parameters stable. Will discontinue IV fluid. Continue her consultants. June 23: Labs reviewed. Medication list reviewed. Renal parameters stable. Blood sugar needs better control. Defer to PMD and carpenter assembler. June 22: Clinically stable. Labs reviewed. Blood sugar elevated. Renal parameters stable. Continue blood sugar management per carpenter assembler June 21: Patient is febrile today. Abnormal electrolytes addressed. Stable from renal standpoint of view. June 20: No chemistry panel done today. Stable from renal standpoint. Will order chemistry panel tomorrow June 19: Labs reviewed. Phosphorus supplement given. Stable from renal sta ndpoint of view. June 18: Lab reviewed. Serum sodium lower. Creatinine 1.1. Continue current management. June 17: Lab reviewed. Sodium 160. Creatinine 1.3. Calcium lower at 9. Will continue D5W. June 16: Labs reviewed. Renal parameters stable. Serum calcium lowering. Serum sodium lowering. Serum creatinine 1.3. Another 1 L of D5W ordered. June 15: Lab reviewed. Serum sodium high. 1 L D5W given. Serum creatinine 1.4. Pamidronate given yesterday. Continue to monitor serum calcium. June 14: Lab reviewed. Serum calcium high corrected for low serum albumin. 60 mg pamidronate ID given. Continue to monitor renal parameters calcium and phosphorus. June 13: Lab reviewed. Medication list reviewed. Renal parameters stable. W ill watch serum calcium and serum sodium. Chemistry panel tomorrow. June 12: Labs reviewed. Stable from renal standpoint of view. June 11: Labs reviewed. Stable renal parameters. June 10: Lab reviewed. Serum potassium normalized. Will give 1 L of D5W for high serum sodium. Continue per consultants. June 09: Labs reviewed. Discussed with RN. Serum potassium elevated. Suspect hemolysis. Will repeat serum potassium. DC all potassium supplements. June 08: Serum sodium higher. Will give 1 L of D5W. Renal parameters stable. Continue to monitor electrolytes. Continue per consultants. June 07: 1 bolus of D5W. Renal parameters stable. Serum sodium slightly high. Stable from renal standpoint of view. June 06: We will again discontinue the IV ordered. Stable from renal standpoint of view. Will start midodrine for low blood pressure. June 05: DC IV fluid. Potassium supplement given. Stable from renal standpoint to view. June 04: Potassium and magnesium supplement IV given, stable from renal standpoint of view. IV fluid D5W Monitor electrolytes Monitor renal parameters Hold blood pressure medication since blood pressure low Per orders, per consultants Subjective ROS Limited/Unobtainable: No Constitutional: Reports: malaise Objective Objective Last 24 Hour Vital Signs Date Time Temp Pulse Resp B/P (MAP) Pulse Ox O2 Delivery O2 Flow Rate FiO2 07/01/20 09:00 Room Air 07/01/20 08:45 106 104/55 07/01/20 08:00 99.0 106 20 104/55 (71) 98 07/01/20 04:00 98.3 96 20 101/51 (68) 97 07/01/20 00:00 99.6 99 20 124/61 (82) 99 06/30/20 22:11 92 127/61 06/30/20 21:00 Room Air 06/30/20 20:00 98.7 69 20 121/67 (85) 97 06/30/20 16:00 98.3 67 18 124/63 (83) 99 06/30/20 12:00 98.1 63 18 120/54 (76) 100 Intake and Output 06/30/20 07/01/20 19:00 07:00 Intake Total 2300 ml 2320 ml Output Total 2250 ml Balance 2300 ml 70 ml Free Water 250 ml 370 ml IV Total 1450 ml 1400 ml Tube Feeding 600 ml 550 ml Output Urine Total 2250 ml # Voids 1 # Bowel Movements 2 Laboratory Tests 07/01/20 06:20: White Blood Count 12.4H, Red Blood Count 3.50L, Hemoglobin 10.2L, Hematocrit 32.7L, Mean Corpuscular Volume 93, Mean Corpuscular Hemoglobin 29.1, Mean Corpuscular Hemoglobin Concent 31.2L, Red Cell Distribution Width 15.5H, Platelet Count 454H, Mean Platelet Volume 7.6, Neutrophils (%) (Auto) 74.5, Lymphocytes (%) (Auto) 20.4, Monocytes (%) (Auto) 4.1, Eosinophils (%) (Auto) 0.6, Basophils (%) (Auto) 0.5, Prothrombin Time 11.2, Prothromb Time International Ratio 1.0, Activated Partial Thromboplast Time 26, Sodium Level 142, Potassium Level 4.0, Chloride Level 104, Carbon Dioxide Level 29, Anion Gap 9, Blood Urea Nitrogen 21H, Creatinine 1.1, Estimat Glomerular Filtration Rate > 60, Glucose Level 248H, Calcium Level 8.3L Height (Feet): 5 Height (Inches): 5.00 Weight (Pounds): 123 General Appearance: no apparent distress Cardiovascular: tachycardia Respiratory/Chest: decreased breath sounds Objective No change Eddie Nelson MD Jul 01, 2020 10:35
--- NOTE | 2020-07-01 11:52 | Surgery Progress Note ---
Surgery Progress Note Subjective Symptoms: improved, tolerating diet, passing flatus Objective Last 24 Hour Vital Signs Date Time Temp Pulse Resp B/P (MAP) Pulse Ox O2 Delivery O2 Flow Rate FiO2 07/01/20 09:00 Room Air 07/01/20 08:45 106 104/55 07/01/20 08:00 99.0 106 20 104/55 (71) 98 07/01/20 04:00 98.3 96 20 101/51 (68) 97 07/01/20 00:00 99.6 99 20 124/61 (82) 99 06/30/20 22:11 92 127/61 06/30/20 21:00 Room Air 06/30/20 20:00 98.7 69 20 121/67 (85) 97 06/30/20 16:00 98.3 67 18 124/63 (83) 99 06/30/20 12:00 98.1 63 18 120/54 (76) 100 I&O Intake and Output 06/30/20 07/01/20 19:00 07:00 Intake Total 2300 ml 2320 ml Output Total 2250 ml Balance 2300 ml 70 ml Free Water 250 ml 370 ml IV Total 1450 ml 1400 ml Tube Feeding 600 ml 550 ml Output Urine Total 2250 ml # Voids 1 # Bowel Movements 2 Dressing: saturated Cardiovascular: RSR Respiratory: decreased breath sounds Abdomen: soft, non-tender, present bowel sounds Extremities: no tenderness, no cyanosis Laboratory Tests Test 07/01/20 06:20 White Blood Count 12.4 K/UL (4.8-10.8) H Red Blood Count 3.50 M/UL (4.70-6.10) L Hemoglobin 10.2 G/DL (14.2-18.0) L Hematocrit 32.7 % (42.0-52.0) L Mean Corpuscular Volume 93 FL (80-99) Mean Corpuscular Hemoglobin 29.1 PG (27.0-31.0) Mean Corpuscular Hemoglobin Concent 31.2 G/DL (32.0-36.0) L Red Cell Distribution Width 15.5 % (11.6-14.8) H Platelet Count 454 K/UL (150-450) H Mean Platelet Volume 7.6 FL (6.5-10.1) Neutrophils (%) (Auto) 74.5 % (45.0-75.0) Lymphocytes (%) (Auto) 20.4 % (20.0-45.0) Monocytes (%) (Auto) 4.1 % (1.0-10.0) Eosinophils (%) (Auto) 0.6 % (0.0-3.0) Basophils (%) (Auto) 0.5 % (0.0-2.0) Prothrombin Time 11.2 SEC (9.30-11.50) Prothromb Time International Ratio 1.0 (0.9-1.1) Activated Partial Thromboplast Time 26 SEC (23-33) Sodium Level 142 MMOL/L (136-145) Potassium Level 4.0 MMOL/L (3.5-5.1) Chloride Level 104 MMOL/L (98-107) Carbon Dioxide Level 29 MMOL/L (21-32) Anion Gap 9 mmol/L (5-15) Blood Urea Nitrogen 21 mg/dL (7-18) H Creatinine 1.1 MG/DL (0.55-1.30) Estimat Glomerular Filtration Rate > 60 mL/min (>60) Glucose Level 248 MG/DL (74-106) H Calcium Level 8.3 MG/DL (8.5-10.1) L Plan Problems: (1) Hypernatremia (2) Dehydration (3) Hip fracture, left (4) Diabetes mellitus (5) History of hypertension (6) Severe protein-calorie malnutrition Assessment & Plan: DAILY ESTIMATED NEEDS: Needs based on Sepsis, DM/ 54kg 30-40 kcals/kg 1899-6778 total kcals 1.25-2 g protein/kg 68-108 g total protein 25-35ml/kcal mL/kg 9864-3049 total fluid mLs NUTRITION DIAGNOSIS: * Swallowing difficulty R/T dysphagia, as evidenced by Pt is GT dep. (CURRENT TF: Glucerna 1.5 @ 30ml/hr x 24 hrs) ENTERAL NUTRITION RECOMMENDATIONS: Glucerna 1.5 @ 60ml/hr x 20 hrs to provide 1200ml, 1800kcal, 99g prot, 911ml free water, 160g carbs * Rec to INCREASE TF GOAL to 60ml/hr for 20 hrs * HOB over 30 degrees, increased water flushes * TF at goal meets 100% est needs. -------- ADDITIONAL RECOMMENDATIONS: * Calibrated bedscale wt for accurate CBW * Monitor lytes daily w/ TF, replete as needed * Pt may require increase in insulin regimen for improved BG W/ continuous TF infusion * Wound healing: DOMENICA BID, F/up w/ WC eval . (7) Acute encephalopathy (8) Pressure Ulcer Of Sacral Region, Unstageable Assessment & Plan: Pt presented on admission with purple and indurated area at Sacrococcygeal at previously compromised site(L)7cm x (W)3cm.Surrounding Hyperpigmentation at Sacrum. Non-Blanching erythema without fluctuance R heel. Non-Blanching erythema with delineated margins L heel (L)4.5cm x (W)5.5cm. L Heel is boggy . Tx.Plan: Apply Moisture Barrier Paste to Sacrum. Cover with Optifoam drsgs. Change every 3 days and prn. Apply Cavilon Skin Barrier to R and L trochanter. Cover each site with Optifoam drsgs. Change every 7 days and prn. Apply Cavilon Skin Barrier to each heel and malleoli. Cover each site with Op tifoam drsgs. Change every 7 days and prn. Reposition at least every 2hours or as tolerated. Off-load heels with pillow. improving cont current care tube site okay (9) Feeding by G-tube (10) Abdominal distention (11) Multiple drug resistant organism (MDRO) culture positive (12) Sepsis (13) History of CVA (cerebrovascular accident) (14) Parkinson disease (15) Staphylococcus aureus bacteremia Assessment & Plan: repeat blood cultures negative on abx unlikely source of bacteremia from wounds. will monitor cont local wound care improving leukocytosis James Breen Jul 01, 2020 11:52
[2020-07-01 12:00] VITALS: BP 128/66
--- NOTE | 2020-07-01 14:13 | NUR ---
*-*DISCHARGE PLANNING*-* PATIENT HAS BEEN REFERRED BACK TO [facility] P: [phone] S/W [facility] ROOM# [id number].CORRECTION ~~~~~~~~~~~~~~~~~~~~~~~~NEED DISCHARGE ORDER~~~~~~~~~~~~~~~~~~
--- NOTE | 2020-07-01 14:23 | Pulmonology Progress Note ---
Subjective ROS Limited/Unobtainable: No Constitutional: Reports: no symptoms, anorexia HEENT: Repors: no symptoms Respiratory: Reports: no symptoms Cardiovascular: Reports: no symptoms Allergies: Coded Allergies: No Known Allergies (Unverified , 08/27/19) All Systems: reviewed and negative except above Objective Last 24 Hour Vital Signs Date Time Temp Pulse Resp B/P (MAP) Pulse Ox O2 Delivery O2 Flow Rate FiO2 07/01/20 12:00 99.7 92 18 128/66 (86) 98 07/01/20 09:00 Room Air 07/01/20 08:45 106 104/55 07/01/20 08:00 99.0 106 20 104/55 (71) 98 07/01/20 04:00 98.3 96 20 101/51 (68) 97 07/01/20 00:00 99.6 99 20 124/61 (82) 99 06/30/20 22:11 92 127/61 06/30/20 21:00 Room Air 06/30/20 20:00 98.7 69 20 121/67 (85) 97 06/30/20 16:00 98.3 67 18 124/63 (83) 99 Intake and Output 06/30/20 07/01/20 19:00 07:00 Intake Total 2300 ml 2320 ml Output Total 2250 ml Balance 2300 ml 70 ml Free Water 250 ml 370 ml IV Total 1450 ml 1400 ml Tube Feeding 600 ml 550 ml Output Urine Total 2250 ml # Voids 1 # Bowel Movements 2 General Appearance: cachetic HEENT: normocephalic, atraumatic Respiratory: chest wall non-tender, normal breath sounds Cardiovascular: normal peripheral pulses, normal rate, JVD Abdomen: normal bowel sounds, hyperactive bowel sounds Genitourinary: normal external genitalia Extremities: no clubbing Skin: no lesions Neurologic: study specialist II-XII grossly normal Lymphatic: no neck adenopathy Laboratory Tests 07/01/20 06:20: White Blood Count 12.4H, Red Blood Count 3.50L, Hemoglobin 10.2L, Hematocrit 32.7L, Mean Corpuscular Volume 93, Mean Corpuscular Hemoglobin 29.1, Mean Corpuscular Hemoglobin Concent 31.2L, Red Cell Distribution Width 15.5H, Platelet Count 454H, Mean Platelet Volume 7.6, Neutrophils (%) (Auto) 74.5, Lymphocytes (%) (Auto) 20.4, Monocytes (%) (Auto) 4.1, Eosinophils (%) (Auto) 0.6, Basophils (%) (Auto) 0.5, Prothrombin Time 11.2, Prothromb Time International Ratio 1.0, Activated Partial Thromboplast Time 26, Sodium Level 142, Potassium Level 4.0, Chloride Level 104, Carbon Dioxide Level 29, Anion Gap 9, Blood Urea Nitrogen 21H, Creatinine 1.1, Estimat Glomerular Filtration Rate > 60, Glucose Level 248H, Calcium Level 8.3L Current Medications Medications (Trade) Dose Ordered Sig/Debi Route PRN Reason Start Time Stop Time Status Last Admin Dose Admin Acetaminophen (Tylenol) 650 mg Q6H PRN GT Mild Pain (Pain Scale 1-3) 06/27/20 11:00 07/02/20 10:59 06/27/20 20:52 Amantadine HCl (Symmetrel) 100 mg TWICE A DAY GT 06/27/20 18:00 07/02/20 08:59 07/01/20 08:45 Aspirin (ASA) 81 mg DAILY GT 06/28/20 09:00 07/17/20 08:59 07/01/20 08:45 Cefazolin Sodium 50 ml @ 100 mls/hr Q8HR@0100,0900,1700 IV 06/28/20 17:00 07/05/20 16:59 07/01/20 08:47 Dextrose 1,000 ml @ 50 mls/hr Q20H IV 06/28/20 09:15 07/28/20 09:14 07/01/20 10:41 Dextrose (Dextrose 50%) 25 ml Q30M PRN IV Hypoglycemia 06/27/20 10:30 09/20/20 06:59 Dextrose (Dextrose 50%) 50 ml Q30M PRN IV Hypoglycemia 06/27/20 10:30 09/20/20 06:59 Famotidine (Pepcid) 20 mg BID GT 06/27/20 18:00 09/01/20 17:59 07/01/20 08:45 Heparin Sodium (Porcine) (Heparin 5000 units/ml) 5,000 units EVERY 12 HOURS SUBQ 06/27/20 21:00 07/17/20 08:59 07/01/20 08:46 Insulin Aspart (NovoLOG) Q6HR SUBQ 06/27/20 12:00 09/09/20 17:59 07/01/20 12:04 Insulin Detemir (Levemir) 15 units EVERY 12 HOURS SUBQ 07/01/20 09:00 09/09/20 20:59 07/01/20 08:39 Metoprolol Tartrate (Lopressor) 25 mg Q12HR GT 06/27/20 21:00 09/20/20 08:59 07/01/20 08:45 Midodrine (Pro-Amatine) 2.5 mg TIDPRN PRN GT blood pressure below 100 sbp 06/27/20 11:00 09/11/20 10:59 Pravastatin Sodium (Pravachol) 20 mg BEDTIME GT 06/27/20 21:00 07/02/20 20:59 06/30/20 22:11 Sennosides (Senokot) 8.6 mg DAILY GT 06/28/20 09:00 07/02/20 08:59 07/01/20 08:45 Vancomycin HCl (Firvanq) 125 mg FOUR TIMES A DAY GT 06/28/20 13:00 07/08/20 12:59 07/01/20 12:04 Assessment/Plan Problems: (1) Clostridium difficile colitis (2) Staphylococcus aureus bacteremia (3) Sepsis (4) Multiple drug resistant organism (MDRO) culture positive (5) Hypernatremia (6) History of CVA (cerebrovascular accident) (7) History of hypertension (8) Parkinson disease (9) Severe protein-calorie malnutrition (10) Feeding by G-tube (11) Diabetes mellitus Assessment/Plan wbc still high C-diff positive Na is still high still low grade temp repeat all cultures , Urine has proteus,,MDR COVID Negative sliding scale all reviewed, symptomatic treatment dvt prophylaxis Latanya Mckeon MD Jul 01, 2020 14:23
--- NOTE | 2020-07-01 15:10 | NUR ---
CASE MANAGEMENT:REVIEW SI;SEPSIS. 99.7 106 20 101/51 97% ON RA WBC 12.4 BUN 21 BG 248 IS;CEFAZOLIN IV Q8 VANCOMYCIN GT QID IVF D5 @ 50 ML/HR ASA GT QD LOPRESSOR GT Q12 SYMMETREL GT BID MED SURG STATUS DCP;[facility]; [facility] NEEDED CONSENT NEEDED REFER TO [facility]
[2020-07-01 16:00] VITALS: BP 121/59
--- NOTE | 2020-07-01 17:42 | Infectious Diseases Prog Note ---
Assessment/Plan 79yo M with: COVID19 neg (06/01 rapid COVID PCR neg) Sespsis, recurrent MSSA bacteremia- - ?from PNA- low grade, no vegetations on 2d echo- .endocarditis cannot be excluded UTI, recurrent Probable PNA -06/29 CT c/abd/p w/ : Patchy opacities in the left lower lobe which may be related to subsegmental atelectasis versus developing pneumonia. Indwelling Adams catheter. Bladder wall thickening cystitis not excluded. Mild distention of the bladder despite the Adams catheter. Markedly enlarged and heterogeneous prostate which may be on the basis of BPH. Nonobstructing left renal stone. Marked thickening of the wall of the rectum and distal sigmoid colon suggesting a proctitis. Interval decrease in rectal stool burden. Moderate stool burden in the remainder of the upstream colon. Sacral decubitus ulcer. No organized/drai nable subcutaneous fluid collection noted in this region. -06/27 Bcx NTD -06/23 Bcx Neg 2d echo no vegetations seen -06/21 rapid COVID PCR neg u/a wbc 5-10,nit neg, leuk +3; ucx >100k ESBL P.mirabilis Bx 12/15 MSSA CXR No acute process. Cdiff colitis -06/27 Cdif toxin a/b + Fever, recurrent; improving Leukocytosis, recurrent; increased; now improvnig [facility], improving UTI, sp rx 06/01 UA w/ pyuria, UCx + P Mirabilis ESBL 06/01 BCx Neg 06/01 CXR: No acute process COVID rapid test neg H/o ESBL Proteus in UCx in Oct 2019 Renal US w/ BL cysts PMH: DM2 Parkinson's dementia Bedridden G-tube Plan: PO Vancomycin #4/-14 for cdiff Ancef #4 (abx d 11) for MSSA bactremia 06/27 SP Ertapenem #4, IV Vancomycin #7 06/24 SP MEropenem #4 06/10 SP audra #8 06/02 SP erta #1 06/01 SP cefepime, vanco, flagyl x1 in ED Monitor CBC/BMP f/u Bcx x2 f/u CT c/abd/p w/ to eval for abcess Recomended ELMO- but unable to obtained consent D/w RN Thank you for this consult. [facility] will continue to follow. Subjective Allergies: Coded Allergies: No Known Allergies (Unverified , 08/27/19) afebrile >72hrs wbc improving repeat Bcx NTD Objective Last 24 Hour Vital Signs Date Time Temp Pulse Resp B/P (MAP) Pulse Ox O2 Delivery O2 Flow Rate FiO2 07/01/20 16:00 97.8 100 20 121/59 (79) 99 07/01/20 12:00 99.7 92 18 128/66 (86) 98 07/01/20 09:00 Room Air 07/01/20 08:45 106 104/55 07/01/20 08:00 99.0 106 20 104/55 (71) 98 07/01/20 04:00 98.3 96 20 101/51 (68) 97 07/01/20 00:00 99.6 99 20 124/61 (82) 99 06/30/20 22:11 92 127/61 06/30/20 21:00 Room Air 06/30/20 20:00 98.7 69 20 121/67 (85) 97 Height (Feet): 5 Height (Inches): 5.00 Weight (Pounds): 123 GENERAL: no apparent distress. CHEST: Lungs are clear to auscultation bilaterally without wheezes or rales. CARDIOVASCULAR: regular rhythm. S1, S2 are normal without murmurs, rubs, or gallops. ABDOMEN: Soft, nontender, and nondistended. Positive bowel sounds. No evidence of hepatosplenomegaly. EXTREMITIES: Negative for clubbing, cyanosis, or edema. Laboratory Tests Test 07/01/20 06:20 White Blood Count 12.4 K/UL (4.8-10.8) H Red Blood Count 3.50 M/UL (4.70-6.10) L Hemoglobin 10.2 G/DL (14.2-18.0) L Hematocrit 32.7 % (42.0-52.0) L Mean Corpuscular Volume 93 FL (80-99) Mean Corpuscular Hemoglobin 29.1 PG (27.0-31.0) Mean Corpuscular Hemoglobin Concent 31.2 G/DL (32.0-36.0) L Red Cell Distribution Width 15.5 % (11.6-14.8) H Platelet Count 454 K/UL (150-450) H Mean Platelet Volume 7.6 FL (6.5-10.1) Neutrophils (%) (Auto) 74.5 % (45.0-75.0) Lymphocytes (%) (Auto) 20.4 % (20.0-45.0) Monocytes (%) (Auto) 4.1 % (1.0-10.0) Eosinophils (%) (Auto) 0.6 % (0.0-3.0) Basophils (%) (Auto) 0.5 % (0.0-2.0) Prothrombin Time 11.2 SEC (9.30-11.50) Prothromb Time International Ratio 1.0 (0.9-1.1) Activated Partial Thromboplast Time 26 SEC (23-33) Sodium Level 142 MMOL/L (136-145) Potassium Level 4.0 MMOL/L (3.5-5.1) Chloride Level 104 MMOL/L (98-107) Carbon Dioxide Level 29 MMOL/L (21-32) Anion Gap 9 mmol/L (5-15) Blood Urea Nitrogen 21 mg/dL (7-18) H Creatinine 1.1 MG/DL (0.55-1.30) Estimat Glomerular Filtration Rate > 60 mL/min (>60) Glucose Level 248 MG/DL (74-106) H Calcium Level 8.3 MG/DL (8.5-10.1) L Current Medications Medications (Trade) Dose Ordered Sig/Debi Route PRN Reason Start Time Stop Time Status Last Admin Dose Admin Acetaminophen (Tylenol) 650 mg Q6H PRN GT Mild Pain (Pain Scale 1-3) 06/27/20 11:00 07/02/20 10:59 06/27/20 20:52 Amantadine HCl (Symmetrel) 100 mg TWICE A DAY GT 06/27/20 18:00 07/02/20 08:59 07/01/20 08:45 Aspirin (ASA) 81 mg DAILY GT 06/28/20 09:00 07/17/20 08:59 07/01/20 08:45 Cefazolin Sodium 50 ml @ 100 mls/hr Q8HR@0100,0900,1700 IV 06/28/20 17:00 07/05/20 16:59 07/01/20 16:42 Dextrose 1,000 ml @ 50 mls/hr Q20H IV 06/28/20 09:15 07/28/20 09:14 07/01/20 10:41 Dextrose (Dextrose 50%) 25 ml Q30M PRN IV Hypoglycemia 06/27/20 10:30 09/20/20 06:59 Dextrose (Dextrose 50%) 50 ml Q30M PRN IV Hypoglycemia 06/27/20 10:30 09/20/20 06:59 Famotidine (Pepcid) 20 mg BID GT 06/27/20 18:00 09/01/20 17:59 07/01/20 08:45 Heparin Sodium (Porcine) (Heparin 5000 units/ml) 5,000 units EVERY 12 HOURS SUBQ 06/27/20 21:00 07/17/20 08:59 07/01/20 08:46 Insulin Aspart (NovoLOG) Q6HR SUBQ 06/27/20 12:00 09/09/20 17:59 07/01/20 12:04 Insulin Detemir (Levemir) 15 units EVERY 12 HOURS SUBQ 07/01/20 09:00 09/09/20 20:59 07/01/20 08:39 Metoprolol Tartrate (Lopressor) 25 mg Q12HR GT 06/27/20 21:00 09/20/20 08:59 07/01/20 08:45 Midodrine (Pro-Amatine) 2.5 mg TIDPRN PRN GT blood pressure below 100 sbp 06/27/20 11:00 09/11/20 10:59 Pravastatin Sodium (Pravachol) 20 mg BEDTIME GT 06/27/20 21:00 07/02/20 20:59 06/30/20 22:11 Sennosides (Senokot) 8.6 mg DAILY GT 06/28/20 09:00 07/02/20 08:59 07/01/20 08:45 Vancomycin HCl (Firvanq) 125 mg FOUR TIMES A DAY GT 06/28/20 13:00 07/08/20 12:59 07/01/20 12:04 Blaire Greenwood M.D. Jul 01, 2020 17:42
[2020-07-01] MEDS ORDERED: Acetaminophen 650mg/20.3ml GT PRN (17:45)
--- NOTE | 2020-07-01 18:04 | Internal Med Progress Note ---
Subjective Physician Name Cirilo Rome Attending Physician Cirilo Rome MD Current Medications Medications (Trade) Dose Ordered Sig/Debi Route PRN Reason Start Time Stop Time Status Last Admin Dose Admin Acetaminophen (Tylenol) 650 mg Q6H PRN GT Mild Pain (Pain Scale 1-3) 06/27/20 11:00 07/02/20 10:59 06/27/20 20:52 Acetaminophen (Tylenol) 650 mg Q6H PRN GT Temperature >100.4 07/01/20 17:45 07/31/20 17:44 Amantadine HCl (Symmetrel) 100 mg TWICE A DAY GT 06/27/20 18:00 07/02/20 08:59 07/01/20 08:45 Aspirin (ASA) 81 mg DAILY GT 06/28/20 09:00 07/17/20 08:59 07/01/20 08:45 Cefazolin Sodium 50 ml @ 100 mls/hr Q8HR@0100,0900,1700 IV 06/28/20 17:00 07/05/20 16:59 07/01/20 16:42 Dextrose 1,000 ml @ 50 mls/hr Q20H IV 06/28/20 09:15 07/28/20 09:14 07/01/20 10:41 Dextrose (Dextrose 50%) 25 ml Q30M PRN IV Hypoglycemia 06/27/20 10:30 09/20/20 06:59 Dextrose (Dextrose 50%) 50 ml Q30M PRN IV Hypoglycemia 06/27/20 10:30 09/20/20 06:59 Famotidine (Pepcid) 20 mg BID GT 06/27/20 18:00 09/01/20 17:59 07/01/20 08:45 Heparin Sodium (Porcine) (Heparin 5000 units/ml) 5,000 units EVERY 12 HOURS SUBQ 06/27/20 21:00 07/17/20 08:59 07/01/20 08:46 Insulin Aspart (NovoLOG) Q6HR SUBQ 06/27/20 12:00 09/09/20 17:59 07/01/20 12:04 Insulin Detemir (Levemir) 15 units EVERY 12 HOURS SUBQ 07/01/20 09:00 09/09/20 20:59 07/01/20 08:39 Metoprolol Tartrate (Lopressor) 25 mg Q12HR GT 06/27/20 21:00 09/20/20 08:59 07/01/20 08:45 Midodrine (Pro-Amatine) 2.5 mg TIDPRN PRN GT blood pressure below 100 sbp 06/27/20 11:00 09/11/20 10:59 Pravastatin Sodium (Pravachol) 20 mg BEDTIME GT 06/27/20 21:00 07/02/20 20:59 06/30/20 22:11 Sennosides (Senokot) 8.6 mg DAILY GT 06/28/20 09:00 07/02/20 08:59 07/01/20 08:45 Vancomycin HCl (Firvanq) 125 mg FOUR TIMES A DAY GT 06/28/20 13:00 07/08/20 12:59 07/01/20 12:04 Allergies: Coded Allergies: No Known Allergies (Unverified , 08/27/19) Subjective awake, responsive with open his eyes, follows simple commands, no acute distress. WBC: 12.4. Objective Last Vital Signs Date Time Temp Pulse Resp B/P (MAP) Pulse Ox O2 Delivery O2 Flow Rate FiO2 07/01/20 16:00 97.8 100 20 121/59 (79) 99 07/01/20 09:00 Room Air Laboratory Tests Test 07/01/20 06:20 White Blood Count 12.4 K/UL (4.8-10.8) H Red Blood Count 3.50 M/UL (4.70-6.10) L Hemoglobin 10.2 G/DL (14.2-18.0) L Hematocrit 32.7 % (42.0-52.0) L Mean Corpuscular Volume 93 FL (80-99) Mean Corpuscular Hemoglobin 29.1 PG (27.0-31.0) Mean Corpuscular Hemoglobin Concent 31.2 G/DL (32.0-36.0) L Red Cell Distribution Width 15.5 % (11.6-14.8) H Platelet Count 454 K/UL (150-450) H Mean Platelet Volume 7.6 FL (6.5-10.1) Neutrophils (%) (Auto) 74.5 % (45.0-75.0) Lymphocytes (%) (Auto) 20.4 % (20.0-45.0) Monocytes (%) (Auto) 4.1 % (1.0-10.0) Eosinophils (%) (Auto) 0.6 % (0.0-3.0) Basophils (%) (Auto) 0.5 % (0.0-2.0) Prothrombin Time 11.2 SEC (9.30-11.50) Prothromb Time International Ratio 1.0 (0.9-1.1) Activated Partial Thromboplast Time 26 SEC (23-33) Sodium Level 142 MMOL/L (136-145) Potassium Level 4.0 MMOL/L (3.5-5.1) Chloride Level 104 MMOL/L (98-107) Carbon Dioxide Level 29 MMOL/L (21-32) Anion Gap 9 mmol/L (5-15) Blood Urea Nitrogen 21 mg/dL (7-18) H Creatinine 1.1 MG/DL (0.55-1.30) Estimat Glomerular Filtration Rate > 60 mL/min (>60) Glucose Level 248 MG/DL (74-106) H Calcium Level 8.3 MG/DL (8.5-10.1) L Intake and Output 06/30/20 07/01/20 19:00 07:00 Intake Total 2300 ml 2320 ml Output Total 2250 ml Balance 2300 ml 70 ml Free Water 250 ml 370 ml IV Total 1450 ml 1400 ml Tube Feeding 600 ml 550 ml Output Urine Total 2250 ml # Voids 1 # Bowel Movements 2 Objective General: No acute distress, awake and alert HEENT: NCAT, sclera anicteric, PERRL, EOMI. Neck: Supple, no significant jugular venous distention, Lungs: Fair inspiratory effort, clear to auscultation bilaterally, no Wheeze or Rales. Heart: Regular rate and rhythm, normal S1/S2, no murmurs Abdomen: soft, nontender, nondistended. Normoactive bowel sounds, PEG. Extremities: No Cyanosis , clubbing or edema. Neuro: A&O x 3, Able to move 5/5 upper extremities and 1/5 lower extremities. Skin: warm, no rash. Assessment/Plan Assessment/Plan ASSESSMENT: This is a 79-year-old male with: 1. Hyperglycemia. 2. Hypernatremia. 3. Urinary tract infection 4. Diabetes type 2. 5. Hypertension. 6. Hypercholesterolemia. 7. Dysphagia. 8. Parkinson disease. 9. Ulcerative proctitis. 10. Severe Protein-calorie malnutrition. 11. History of sacral decubitus ulcer stage IV. 12. Benign prostatic hypertrophy. 13. Gastroesophageal reflux disease. 14. Metabolic encephalopathy. 15. History of left hip fracture. 16. S. Aureus bacteremia- r/o MRSA 17. UTI, recurrent: P Mirabilis ESBL 17. C. difficile colitis. TREATMENT: 1. Hyperglycemia/diabetes. The patient has been placed on a protocol using NovoLog sliding scale. The patient's blood sugars have been running in 300s. Hyperglycemia may be secondary to urinary tract infection. 2. Urinary tract infection. 3. Hypertension. Continue amlodipine as above. 4. Hypercholesterolemia. Continue atorvastatin as above. 5. Dysphagia. The patient is status post PEG placement. 6. Parkinson disease. Continue amantadine as above. 7. Ulcerative proctitis. 8. Protein-calorie malnutrition. 9. Sacral decubitus ulcer stage IV. 10. Benign prostatic hypertrophy. Continue tamsulosin as above. 11. Gastroesophageal reflux disease. 12. Metabolic encephalopathy. 13. History of left hip fracture. Tolerate tube feeding @50 cc/hr. CODE STATUS: Full code. DVT prophylaxis: Heparin subcu. PO Vancomycin #4/-14 for cdiff Ancef #4 (abx d 11) for MSSA Cirilo Faria MD Jul 01, 2020 18:04
--- NOTE | 2020-07-01 19:26 | NUR ---
NURSE HAND-OFF: Important Events on Shift:Patient had diarrhea x2 Patient Status: stable Diet: glucerna 1.5 Pending Orders: n/a Pending Results/Labs:n/a Pending MD notification:n/a Latest Vital Signs: Temperature 97.8 , Pulse 100 , B/P 121 /59 , Respiratory Rate 20 , O2 SAT 99 , Room Air, O2 Flow Rate 3.0 . Vital Sign Comment: stable Latest Lane Fall Score: 55 Fall Risk: High Risk Safety Measures: Call light Within Reach, Bed Alarm Zone 1, Side Rails Side Rails x3, Bed position Low and Locked. Fall Precautions: Yellow Socks Yellow Gown Door Sign Report given to JOHNNY Barker.
[2020-07-01 20:00] VITALS: BP 111/64
--- NOTE | 2020-07-01 20:04 | NUR ---
NURSE NOTES: RECEIVED PATIENT LYING IN BED, HEAD OF BED ELEVATED/ASPIRATION PRECAUTIONS OBSERVED AT ALL TIMES, NON VERBAL, ALL NEEDS ANTICIPATED AND MET BY NURSING STAFF. NO SIGNS AND SYMPTOMS OF ACUTE CARDIO RESPIRATORY DISTRESS/SHORTNESS OF BREATH/NO PERIPHERAL EDEMA NOTED, NOTED WITH DRY COUGH, UNABLE TO EXPECTORATE. ABDOMEN SOFT/NON DISTENDED/AUDIBLE BOWEL SOUNDS, TOLERATING G TUBE FEEDING, NO GASTRIC RESIDUAL ASPIRATED, NO REPORT OF N/V, DIARRHEA X2, CHRISTINE CATHETER INTACT DRAINING YELLOW URINE VIA GRAVITY, NO SEDEMENT/HEMATURIA NOTED. DRESSING DRY AND INTACT TO HEELS/ANKLES/SACRUM, REPOSITIONED FOR COMFORT/PRESSURE RELIEF, TOLERATED WELL. SIDE RAILS UP X3, BED IN LOWEST POSITION FOR SAFETY, BED ALARM ACTIVATED FOR PREVENTIVE MEASURES. FREQUENT ROUNDING FOR SAFETY/NEEDS. CONTINUE WITH CURRENT PLAN OF CARE. NAD.
[2020-07-02] VITALS: BP 107/59
[2020-07-02] MEDS: NovoLOG Insulin Flexpen SUBQ SCH ×4 (00:59→17:43)
[2020-07-02] MEDS: ceFAZolin 2gm/50ml Premix 50 ML IV SCH ×3 (01:50→17:23)
[2020-07-02 04:00] VITALS: BP 99/57
[2020-07-02 06:06] LABS: ALANINE AMINOTRANSFERASE 15 U/L (12-78); ALBUMIN 1.9 G/DL (3.4-5.0); ALBUMIN/GLOBULIN RATIO 0.3 (1.0-2.7); ALKALINE PHOSPHATASE 120 U/L (46-116); ANION GAP 8 mmol/L (5-15); ASPARTATE AMINO TRANSFERASE 20 U/L (15-37); BILIRUBIN,TOTAL 0.2 MG/DL (0.2-1.0); BLOOD UREA NITROGEN 23 mg/dL (7-18); CALCIUM 8.7 MG/DL (8.5-10.1); CARBON DIOXIDE 29 MMOL/L (21-32); CHLORIDE 107 MMOL/L (98-107); CREATININE 1.1 MG/DL (0.55-1.30); PHOSPHORUS 3.3 MG/DL (2.5-4.9); SODIUM 144 MMOL/L (136-145)
--- NOTE | 2020-07-02 07:44 | NUR ---
NURSE HAND-OFF: Important Events on Shift:[UNEVENTFUL, TOLERTED FEEDING, NO N/V] Patient Status: [STABLE] Diet: [GLUCERNA 1.5 AT 50ML/HR] Pending Orders: [AML] Pending Results/Labs:[] Pending MD notification:[N/A] Latest Vital Signs: Temperature 98.1 , Pulse 93 , B/P 99 /57 , Respiratory Rate 18 , O2 SAT 95 , Room Air, O2 Flow Rate 3.0 . Vital Sign Comment: [AFEBRILE] Latest Lane Fall Score: 55 Fall Risk: High Risk Safety Measures: Call light Within Reach, Bed Alarm Zone 1, Side Rails Side Rails x3, Bed position Low and Locked. Fall Precautions: Yellow Socks Yellow Gown Door Sign Report given to [JOHNNY ARCOS].
--- NOTE | 2020-07-02 07:55 | NUR ---
NURSE NOTES: Report received by MOJGAN Barker. Patient seen to be awake, alert, and oriented x1. Seen lying in bed with HOB elevated. Currently on room air, no s/sx of SOB/Distress, no c/o any pain or gi/gu discomfort. Patient on contact isolation for (+) cdiff and esbl urine. GT inplace, and intact, running Glucerna 1.5 @50cc tolerating feeding well. Adams catheter inplace, intact and running well. IV site located on Left Hand gauge 20 asymptomatic, inplace and intact. Bed placed on lowest and locked, call light placed within reach and will continue to monitor.
[2020-07-02 08:00] VITALS: BP 120/73
[2020-07-02] MEDS: Levemir Flexpen SUBQ SCH ×2 (08:38→20:48)
[2020-07-02] MEDS: Vancomycin oral 125mg/2.5ml GT SCH ×4 (08:39→20:42)
[2020-07-02] MEDS: Heparin 5000 units/ml inj SUBQ SCH ×2 (08:39→20:46)
[2020-07-02] MEDS: Aspirin Baby 81mg GT SCH (08:40)
--- NOTE | 2020-07-02 09:35 | Pulmonology Progress Note ---
Subjective ROS Limited/Unobtainable: No Constitutional: Reports: no symptoms, anorexia HEENT: Repors: no symptoms Respiratory: Reports: no symptoms Cardiovascular: Reports: no symptoms Allergies: Coded Allergies: No Known Allergies (Unverified , 08/27/19) All Systems: reviewed and negative except above Objective Last 24 Hour Vital Signs Date Time Temp Pulse Resp B/P (MAP) Pulse Ox O2 Delivery O2 Flow Rate FiO2 07/02/20 08:40 93 120/73 07/02/20 04:00 98.1 93 18 99/57 (71) 95 07/02/20 00:00 98.4 105 18 107/59 (75) 96 07/01/20 22:35 98 111/63 07/01/20 21:00 Room Air 07/01/20 20:00 98.5 103 18 111/64 (80) 97 07/01/20 16:00 97.8 100 20 121/59 (79) 99 07/01/20 12:00 99.7 92 18 128/66 (86) 98 Intake and Output 07/01/20 07/02/20 19:00 07:00 Intake Total 960 ml 1050 ml Output Total 1500 ml 1300 ml Balance -540 ml -250 ml Free Water 310 ml 250 ml IV Total 50 ml 400 ml Tube Feeding 600 ml 400 ml Output Urine Total 1500 ml 1300 ml # Voids 1 # Bowel Movements 2 General Appearance: cachetic HEENT: normocephalic, atraumatic Respiratory: chest wall non-tender, normal breath sounds Cardiovascular: normal peripheral pulses, normal rate, JVD Abdomen: normal bowel sounds, hyperactive bowel sounds Genitourinary: normal external genitalia Extremities: no clubbing Skin: no lesions 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 II-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 grossly normal Lymphatic: no neck adenopathy Laboratory Tests 07/02/20 04:50: Sodium Level 144, Potassium Level 4.0, Chloride Level 107, Carbon Dioxide Level 29, Anion Gap 8, Blood Urea Nitrogen 23H, Creatinine 1.1, Estimat Glomerular Filtration Rate > 60, Glucose Level 215H, Calcium Level 8.7, Phosphorus Level 3.3, Magnesium Level 2.3, Total Bilirubin 0.2, Aspartate Amino Transf (AST/SGOT) 20, Alanine Aminotransferase (ALT/SGPT) 15, Alkaline Phosphatase 120H, Total Protein 7.4, Albumin 1.9L, Globulin 5.5, Albumin/Globulin Ratio 0.3L Current Medications Medications (Trade) Dose Ordered Sig/Debi Route PRN Reason Start Time Stop Time Status Last Admin Dose Admin Acetaminophen (Tylenol) 650 mg Q6H PRN GT Mild Pain (Pain Scale 1-3) 06/27/20 11:00 07/02/20 10:59 06/27/20 20:52 Acetaminophen (Tylenol) 650 mg Q6H PRN GT Temperature >100.4 07/01/20 17:45 07/31/20 17:44 Aspirin (ASA) 81 mg DAILY GT 06/28/20 09:00 07/17/20 08:59 07/02/20 08:40 Cefazolin Sodium 50 ml @ 100 mls/hr Q8HR@0100,0900,1700 IV 06/28/20 17:00 07/05/20 16:59 07/02/20 08:40 Dextrose 1,000 ml @ 50 mls/hr Q20H IV 06/28/20 09:15 07/28/20 09:14 07/01/20 10:41 Dextrose (Dextrose 50%) 25 ml Q30M PRN IV Hypoglycemia 06/27/20 10:30 09/20/20 06:59 Dextrose (Dextrose 50%) 50 ml Q30M PRN IV Hypoglycemia 06/27/20 10:30 09/20/20 06:59 Famotidine (Pepcid) 20 mg BID GT 06/27/20 18:00 09/01/20 17:59 07/02/20 08:40 Heparin Sodium (Porcine) (Heparin 5000 units/ml) 5,000 units EVERY 12 HOURS SUBQ 06/27/20 21:00 07/17/20 08:59 07/02/20 08:39 Insulin Aspart (NovoLOG) Q6HR SUBQ 06/27/20 12:00 09/09/20 17:59 07/02/20 06:25 Insulin Detemir (Levemir) 15 units EVERY 12 HOURS SUBQ 07/01/20 09:00 09/09/20 20:59 07/02/20 08:38 Metoprolol Tartrate (Lopressor) 25 mg Q12HR GT 06/27/20 21:00 09/20/20 08:59 07/02/20 08:40 Midodrine (Pro-Amatine) 2.5 mg TIDPRN PRN GT blood pressure below 100 sbp 06/27/20 11:00 09/11/20 10:59 Pravastatin Sodium (Pravachol) 20 mg BEDTIME GT 06/27/20 21:00 07/02/20 20:59 07/01/20 22:35 Vancomycin HCl (Firvanq) 125 mg FOUR TIMES A DAY GT 06/28/20 13:00 07/08/20 12:59 07/02/20 08:39 Assessment/Plan Problems: (1) Clostridium difficile colitis (2) Staphylococcus aureus bacteremia (3) Sepsis (4) Multiple drug resistant organism (MDRO) culture positive (5) Hypernatremia (6) History of CVA (cerebrovascular accident) (7) History of hypertension (8) Parkinson disease (9) Severe protein-calorie malnutrition (10) Feeding by G-tube (11) Diabetes mellitus Assessment/Plan wbc still high C-diff positive Na is still high still low grade temp repeat all cultures , Urine has proteus,,MDR COVID Negative sliding scale all reviewed, symptomatic treatment dvt prophylaxis Latanya Mckeon MD Jul 02, 2020 09:35
--- NOTE | 2020-07-02 09:52 | General Progress Note ---
Subjective ROS Limited/Unobtainable: Yes Allergies: Coded Allergies: No Known Allergies (Unverified , 08/27/19) Subjective events noted and interval notes reviewed glucose values improved Item Value Date Time Bedside Blood Glucose 194 mg/dl H 07/02/20 0838 Bedside Blood Glucose 182 mg/dl H 07/02/20 0059 Bedside Blood Glucose 202 mg/dl H 07/02/20 0625 Bedside Blood Glucose 146 mg/dl H 07/01/20 2243 Bedside Blood Glucose 195 mg/dl H 07/01/20 1808 Bedside Blood Glucose 188 mg/dl H 07/01/20 1204 Bedside Blood Glucose 200 mg/dl H 07/01/20 0839 Bedside Blood Glucose 234 mg/dl H 07/01/20 0603 Objective Last 24 Hour Vital Signs Date Time Temp Pulse Resp B/P (MAP) Pulse Ox O2 Delivery O2 Flow Rate FiO2 07/02/20 09:00 Room Air 07/02/20 08:40 93 120/73 07/02/20 08:00 98.1 93 19 120/73 (89) 99 07/02/20 04:00 98.1 93 18 99/57 (71) 95 07/02/20 00:00 98.4 105 18 107/59 (75) 96 07/01/20 22:35 98 111/63 07/01/20 21:00 Room Air 07/01/20 20:00 98.5 103 18 111/64 (80) 97 07/01/20 16:00 97.8 100 20 121/59 (79) 99 07/01/20 12:00 99.7 92 18 128/66 (86) 98 Intake and Output 07/01/20 07/02/20 19:00 07:00 Intake Total 960 ml 1050 ml Output Total 1500 ml 1300 ml Balance -540 ml -250 ml Free Water 310 ml 250 ml IV Total 50 ml 400 ml Tube Feeding 600 ml 400 ml Output Urine Total 1500 ml 1300 ml # Voids 1 # Bowel Movements 2 Laboratory Tests 07/02/20 04:50: Sodium Level 144, Potassium Level 4.0, Chloride Level 107, Carbon Dioxide Level 29, Anion Gap 8, Blood Urea Nitrogen 23H, Creatinine 1.1, Estimat Glomerular Filtration Rate > 60, Glucose Level 215H, Calcium Level 8.7, Phosphorus Level 3.3, Magnesium Level 2.3, Total Bilirubin 0.2, Aspartate Amino Transf (AST/SGOT) 20, Alanine Aminotransferase (ALT/SGPT) 15, Alkaline Phosphatase 120H, Total Protein 7.4, Albumin 1.9L, Globulin 5.5, Albumin/Globulin Ratio 0.3L Height (Feet): 5 Height (Inches): 5.00 Weight (Pounds): 123 General Appearance: no apparent distress Neck: normal alignment Cardiovascular: normal rate Respiratory/Chest: lungs clear Abdomen: normal bowel sounds Objective Current Medications Medications (Trade) Dose Ordered Sig/Debi Route PRN Reason Start Time Stop Time Status Last Admin Dose Admin Acetaminophen (Tylenol) 650 mg Q6H PRN GT Mild Pain (Pain Scale 1-3) 06/27/20 11:00 07/02/20 10:59 06/27/20 20:52 Acetaminophen (Tylenol) 650 mg Q6H PRN GT Temperature >100.4 07/01/20 17:45 07/31/20 17:44 Aspirin (ASA) 81 mg DAILY GT 06/28/20 09:00 07/17/20 08:59 07/02/20 08:40 Cefazolin Sodium 50 ml @ 100 mls/hr Q8HR@0100,0900,1700 IV 06/28/20 17:00 07/05/20 16:59 07/02/20 08:40 Dextrose 1,000 ml @ 50 mls/hr Q20H IV 06/28/20 09:15 07/28/20 09:14 07/01/20 10:41 Dextrose (Dextrose 50%) 25 ml Q30M PRN IV Hypoglycemia 06/27/20 10:30 09/20/20 06:59 Dextrose (Dextrose 50%) 50 ml Q30M PRN IV Hypoglycemia 06/27/20 10:30 09/20/20 06:59 Famotidine (Pepcid) 20 mg BID GT 06/27/20 18:00 09/01/20 17:59 07/02/20 08:40 Heparin Sodium (Porcine) (Heparin 5000 units/ml) 5,000 units EVERY 12 HOURS SUBQ 06/27/20 21:00 07/17/20 08:59 07/02/20 08:39 Insulin Aspart (NovoLOG) Q6HR SUBQ 06/27/20 12:00 09/09/20 17:59 07/02/20 06:25 Insulin Detemir (Levemir) 15 units EVERY 12 HOURS SUBQ 07/01/20 09:00 09/09/20 20:59 07/02/20 08:38 Metoprolol Tartrate (Lopressor) 25 mg Q12HR GT 06/27/20 21:00 09/20/20 08:59 07/02/20 08:40 Midodrine (Pro-Amatine) 2.5 mg TIDPRN PRN GT blood pressure below 100 sbp 06/27/20 11:00 09/11/20 10:59 Pravastatin Sodium (Pravachol) 20 mg BEDTIME GT 06/27/20 21:00 07/02/20 20:59 07/01/20 22:35 Vancomycin HCl (Firvanq) 125 mg FOUR TIMES A DAY GT 06/28/20 13:00 07/08/20 12:59 07/02/20 08:39 Assessment/Plan Problem List: (1) Hypernatremia ICD Codes: E87.0 - Hyperosmolality and hypernatremia SNOMED: 804651960 (2) Feeding by G-tube ICD Codes: Z93.1 - Gastrostomy status SNOMED: 637893529, 944534590, 093981578 (3) Diabetes mellitus ICD Codes: E11.9 - Type 2 diabetes mellitus without complications SNOMED: 26925139 (4) History of CVA (cerebrovascular accident) ICD Codes: Z86.73 - Personal history of transient ischemic attack (TIA), and cerebral infarction without residual deficits SNOMED: 445941830 (5) Parkinson disease ICD Codes: G20 - Parkinson's disease SNOMED: 27952488 Assessment/Plan: continue Levemir 15 units bid continue Novolog sliding scale high dose every 6 hours Gregory Pastrana MD Jul 02, 2020 09:52
[2020-07-02 12:00] VITALS: BP 123/81
--- NOTE | 2020-07-02 14:12 | Infectious Diseases Prog Note ---
Assessment/Plan 79yo M with: COVID19 neg (06/01 rapid COVID PCR neg) Sespsis, recurrent MSSA bacteremia- - ?from PNA- low grade, no vegetations on 2d echo- .endocarditis cannot be excluded UTI, recurrent Probable PNA -06/29 CT c/abd/p w/ : Patchy opacities in the left lower lobe which may be related to subsegmental atelectasis versus developing pneumonia. Indwelling Adams catheter. Bladder wall thickening cystitis not excluded. Mild distention of the bladder despite the Adams catheter. Markedly enlarged and heterogeneous prostate which may be on the basis of BPH. Nonobstructing left renal stone. Marked thickening of the wall of the rectum and distal sigmoid colon suggesting a proctitis. Interval decrease in rectal stool burden. Moderate stool burden in the remainder of the upstream colon. Sacral decubitus ulcer. No organized/drai nable subcutaneous fluid collection noted in this region. -06/27 Bcx NTD -06/23 Bcx Neg 2d echo no vegetations seen -06/21 rapid COVID PCR neg u/a wbc 5-10,nit neg, leuk +3; ucx >100k ESBL P.mirabilis Bx 12/15 MSSA CXR No acute process. Cdiff colitis -06/27 Cdif toxin a/b + Fever, recurrent; improving Leukocytosis, recurrent; increased; now improvnig KELLY, improving UTI, sp rx 06/01 UA w/ pyuria, UCx + P Mirabilis ESBL 06/01 BCx Neg 06/01 CXR: No acute process COVID rapid test neg H/o ESBL Proteus in UCx in Oct 2019 Renal US w/ BL cysts PMH: DM2 Parkinson's dementia Bedridden G-tube Plan: PO Vancomycin # 5/-14 for cdiff Ancef # 5 (abx d 12) for MSSA bactremia 06/27 SP Ertapenem #4, IV Vancomycin #7 06/24 SP MEropenem #4 06/10 SP audra #8 06/02 SP erta #1 06/01 SP cefepime, vanco, flagyl x1 in ED Monitor CBC/BMP f/u Bcx x2 f/u CT c/abd/p w/ to eval for abcess Recomended ELMO- but unable to obtained consent D/w RN Thank you for this consult. [facility] will continue to follow. Subjective Allergies: Coded Allergies: No Known Allergies (Unverified , 08/27/19) afebrile no acute event Objective Last 24 Hour Vital Signs Date Time Temp Pulse Resp B/P (MAP) Pulse Ox O2 Delivery O2 Flow Rate FiO2 07/02/20 12:00 98.8 94 18 123/81 (95) 95 07/02/20 09:00 Room Air 07/02/20 08:40 93 120/73 07/02/20 08:00 98.1 93 19 120/73 (89) 99 07/02/20 04:00 98.1 93 18 99/57 (71) 95 07/02/20 00:00 98.4 105 18 107/59 (75) 96 07/01/20 22:35 98 111/63 07/01/20 21:00 Room Air 07/01/20 20:00 98.5 103 18 111/64 (80) 97 07/01/20 16:00 97.8 100 20 121/59 (79) 99 Height (Feet): 5 Height (Inches): 5.00 Weight (Pounds): 123 HEENT: anicteric Respiratory/Chest: no respiratory distress Cardiovascular: regular rhythm Abdomen: soft, non tender Laboratory Tests Test 07/02/20 04:50 Sodium Level 144 MMOL/L (136-145) Potassium Level 4.0 MMOL/L (3.5-5.1) Chloride Level 107 MMOL/L (98-107) Carbon Dioxide Level 29 MMOL/L (21-32) Anion Gap 8 mmol/L (5-15) Blood Urea Nitrogen 23 mg/dL (7-18) H Creatinine 1.1 MG/DL (0.55-1.30) Estimat Glomerular Filtration Rate > 60 mL/min (>60) Glucose Level 215 MG/DL (74-106) H Calcium Level 8.7 MG/DL (8.5-10.1) Phosphorus Level 3.3 MG/DL (2.5-4.9) Magnesium Level 2.3 MG/DL (1.8-2.4) Total Bilirubin 0.2 MG/DL (0.2-1.0) Aspartate Amino Transf (AST/SGOT) 20 U/L (15-37) Alanine Aminotransferase (ALT/SGPT) 15 U/L (12-78) Alkaline Phosphatase 120 U/L (46-116) H Total Protein 7.4 G/DL (6.4-8.2) Albumin 1.9 G/DL (3.4-5.0) L Globulin 5.5 g/dL Albumin/Globulin Ratio 0.3 (1.0-2.7) L Current Medications Medications (Trade) Dose Ordered Sig/Debi Route PRN Reason Start Time Stop Time Status Last Admin Dose Admin Acetaminophen (Tylenol) 650 mg Q6H PRN GT Temperature >100.4 07/01/20 17:45 07/31/20 17:44 Aspirin (ASA) 81 mg DAILY GT 06/28/20 09:00 07/17/20 08:59 07/02/20 08:40 Cefazolin Sodium 50 ml @ 100 mls/hr Q8HR@0100,0900,1700 IV 06/28/20 17:00 07/05/20 16:59 07/02/20 08:40 Dextrose 1,000 ml @ 50 mls/hr Q20H IV 06/28/20 09:15 07/28/20 09:14 07/01/20 10:41 Dextrose (Dextrose 50%) 25 ml Q30M PRN IV Hypoglycemia 06/27/20 10:30 09/20/20 06:59 Dextrose (Dextrose 50%) 50 ml Q30M PRN IV Hypoglycemia 06/27/20 10:30 09/20/20 06:59 Famotidine (Pepcid) 20 mg BID GT 06/27/20 18:00 09/01/20 17:59 07/02/20 08:40 Heparin Sodium (Porcine) (Heparin 5000 units/ml) 5,000 units EVERY 12 HOURS SUBQ 06/27/20 21:00 07/17/20 08:59 07/02/20 08:39 Insulin Aspart (NovoLOG) Q6HR SUBQ 06/27/20 12:00 09/09/20 17:59 07/02/20 12:47 Insulin Detemir (Levemir) 15 units EVERY 12 HOURS SUBQ 07/01/20 09:00 09/09/20 20:59 07/02/20 08:38 Metoprolol Tartrate (Lopressor) 25 mg Q12HR GT 06/27/20 21:00 09/20/20 08:59 07/02/20 08:40 Midodrine (Pro-Amatine) 2.5 mg TIDPRN PRN GT blood pressure below 100 sbp 06/27/20 11:00 09/11/20 10:59 Pravastatin Sodium (Pravachol) 20 mg BEDTIME GT 06/27/20 21:00 07/02/20 20:59 07/01/20 22:35 Vancomycin HCl (Firvanq) 125 mg FOUR TIMES A DAY GT 06/28/20 13:00 07/08/20 12:59 07/02/20 12:45 Jose Cruz Harris MD Jul 02, 2020 14:12
--- NOTE | 2020-07-02 14:58 | Surgery Progress Note ---
Surgery Progress Note Subjective Additional Comments afebrile HD stable labs okay no n/v Objective Last 24 Hour Vital Signs Date Time Temp Pulse Resp B/P (MAP) Pulse Ox O2 Delivery O2 Flow Rate FiO2 07/02/20 12:00 98.8 94 18 123/81 (95) 95 07/02/20 09:00 Room Air 07/02/20 08:40 93 120/73 07/02/20 08:00 98.1 93 19 120/73 (89) 99 07/02/20 04:00 98.1 93 18 99/57 (71) 95 07/02/20 00:00 98.4 105 18 107/59 (75) 96 07/01/20 22:35 98 111/63 07/01/20 21:00 Room Air 07/01/20 20:00 98.5 103 18 111/64 (80) 97 07/01/20 16:00 97.8 100 20 121/59 (79) 99 I&O Intake and Output 07/01/20 07/02/20 19:00 07:00 Intake Total 960 ml 1100 ml Output Total 1500 ml 1300 ml Balance -540 ml -200 ml Free Water 310 ml 250 ml IV Total 50 ml 450 ml Tube Feeding 600 ml 400 ml Output Urine Total 1500 ml 1300 ml # Voids 1 # Bowel Movements 2 Dressing: other Wound: other Cardiovascular: RSR Respiratory: decreased breath sounds Abdomen: soft, non-tender, present bowel sounds Extremities: no edema, no tenderness, no cyanosis Laboratory Tests Test 07/02/20 04:50 Sodium Level 144 MMOL/L (136-145) Potassium Level 4.0 MMOL/L (3.5-5.1) Chloride Level 107 MMOL/L (98-107) Carbon Dioxide Level 29 MMOL/L (21-32) Anion Gap 8 mmol/L (5-15) Blood Urea Nitrogen 23 mg/dL (7-18) H Creatinine 1.1 MG/DL (0.55-1.30) Estimat Glomerular Filtration Rate > 60 mL/min (>60) Glucose Level 215 MG/DL (74-106) H Calcium Level 8.7 MG/DL (8.5-10.1) Phosphorus Level 3.3 MG/DL (2.5-4.9) Magnesium Level 2.3 MG/DL (1.8-2.4) Total Bilirubin 0.2 MG/DL (0.2-1.0) Aspartate Amino Transf (AST/SGOT) 20 U/L (15-37) Alanine Aminotransferase (ALT/SGPT) 15 U/L (12-78) Alkaline Phosphatase 120 U/L (46-116) H Total Protein 7.4 G/DL (6.4-8.2) Albumin 1.9 G/DL (3.4-5.0) L Globulin 5.5 g/dL Albumin/Globulin Ratio 0.3 (1.0-2.7) L Plan Problems: (1) Hypernatremia (2) Dehydration (3) Hip fracture, left (4) Diabetes mellitus (5) History of hypertension (6) Severe protein-calorie malnutrition Assessment & Plan: DAILY ESTIMATED NEEDS: Needs based on Sepsis, DM/ 54kg 30-40 kcals/kg 7316-7518 total kcals 1.25-2 g protein/kg 68-108 g total protein 25-35ml/kcal mL/kg 9842-7851 total fluid mLs NUTRITION DIAGNOSIS: * Swallowing difficulty R/T dysphagia, as evidenced by Pt is GT dep. (CURRENT TF: Glucerna 1.5 @ 30ml/hr x 24 hrs) ENTERAL NUTRITION RECOMMENDATIONS: Glucerna 1.5 @ 60ml/hr x 20 hrs to provide 1200ml, 1800kcal, 99g prot, 911ml free water, 160g carbs * Rec to INCREASE TF GOAL to 60ml/hr for 20 hrs * HOB over 30 degrees, increased water flushes * TF at goal meets 100% est needs. -------- ADDITIONAL RECOMMENDATIONS: * Calibrated bedscale wt for accurate CBW * Monitor lytes daily w/ TF, replete as needed * Pt may require increase in insulin regimen for improved BG W/ continuous TF infusion * Wound healing: DOMENICA BID, F/up w/ WC eval . (7) Acute encephalopathy (8) Pressure Ulcer Of Sacral Region, Unstageable Assessment & Plan: Pt presented on admission with purple and indurated area at Sacrococcygeal at previously compromised site(L)7cm x (W)3cm.Surrounding Hyperpigmentation at Sacrum. Non-Blanching erythema without fluctuance R heel. Non-Blanching erythema with delineated margins L heel (L)4.5cm x (W)5.5cm. L Heel is boggy . Tx.Plan: Apply Moisture Barrier Paste to Sacrum. Cover with Optifoam drsgs. Change every 3 days and prn. Apply Cavilon Skin Barrier to R and L trochanter. Cover each site with Optifoam drsgs. Change every 7 days and prn. Apply Cavilon Skin Barrier to each heel and malleoli. Cover each site with Optifoam drsgs. Change every 7 days and prn. Reposition at least every 2hours or as tolerated. Off-load heels with pillow. improving cont current care tube site okay (9) Feeding by G-tube (10) Abdominal distention (11) Multiple drug resistant organism (MDRO) culture positive (12) Sepsis (13) History of CVA (cerebrovascular accident) (14) Parkinson disease (15) Staphylococcus aureus bacteremia Assessment & Plan: repeat blood cultures negative on abx unlikely source of bacteremia from wounds. will monitor cont local wound care improving leukocytosis James Breen Jul 02, 2020 14:58
--- NOTE | 2020-07-02 15:28 | Nephrology Progress Note ---
Assessment/Plan Problem List: (1) Hypernatremia (2) Sepsis (3) History of CVA (cerebrovascular accident) (4) Parkinson disease (5) Feeding by G-tube (6) Dehydration Assessment KELLY, resolving, serum creatinine of 1.9 now down to 1.2 Hypernatremia, dehydration, free water deficit Sepsis Diabetes mellitus [id number]-li-lzujlum GT feeding Severe protein calorie malnutrition History of CVA History of hypertension Parkinson's disease Plan July 02: Labs reviewed. IV fluids discontinued. Electrolytes within normal range. July 01: Lab reviewed. Serum sodium lowering. Will decrease D5W to 50 cc an hour. Continue per consultants. Meds reviewed. Continue to monitor electrolytes and renal parameters. June 30: Lab reviewed. Serum sodium is lowering. Other electrolytes and renal parameters stable. Continue as is. June 29: Labs reviewed. Discussed with RN. Serum sodium lowering on D5W IV infusion. Patient due for CT scan of the abdomen today. Continue to monitor electrolytes. June 28: Lab reviewed. Discussed with RN. Serum sodium higher. Will start 150 cc an hour D5W. Patient off feeding waiting for a CT of the abdomen. Continue to monitor electrolytes. Try to keep the blood sugar in check. June 27: Lab reviewed. Urine sodium elevated. Renal parameters stable. Continue to administer free water for hypernatremia. June 26: Lab reviewed. Serum sodium higher. Will give D5W bolus. Continue to monitor electrolytes. June 24: Lab reviewed. Renal parameters stable. Will discontinue IV fluid. Continue her consultants. June 23: Labs reviewed. Medication list reviewed. Renal parameters stable. Blood sugar needs better control. Defer to PMD and kohinoor operator. June 22: Clinically stable. Labs reviewed. Blood sugar elevated. Renal parameters stable. Continue blood sugar management per kohinoor operator June 21: Patient is febrile today. Abnormal electrolytes addressed. Stable from renal standpoint of view. June 20: No chemistry panel done today. Stable from renal standpoint. Will order chemistry panel tomorrow June 19: Labs reviewed. Phosphorus supplement given. Stable from renal standpoint of view. June 18: Lab reviewed. Serum sodium lower. Creatinine 1.1. Continue current management. June 17: Lab reviewed. Sodium 160. Creatinine 1.3. Calcium lower at 9. Will continue D5W. June 16: Labs reviewed. Renal parameters stable. Serum calcium lowering. Serum sodium lowering. Serum creatinine 1.3. Another 1 L of D5W ordered. June 15: Lab reviewed. Serum sodium high. 1 L D5W given. Serum creatinine 1.4. Pamidronate given yesterday. Continue to monitor serum calcium. June 14: Lab reviewed. Serum calcium high corrected for low serum albumin. 60 mg pamidronate ID given. Continue to monitor renal parameters calcium and phosphorus. June 13: Lab reviewed. Medication list reviewed. Renal parameters stable. Will watch serum calcium and serum sodium. Chemistry panel tomorrow. June 12: Labs reviewed. Stable from renal standpoint of view. June 11: Labs reviewed. Stable renal parameters. June 10: Lab reviewed. Serum potassium normalized. Will give 1 L of D5W for high serum sodium. Continue per consultants. June 09: Labs reviewed. Discussed with RN. Serum potassium elevated. Suspect hemolysis. Will repeat serum potassium. DC all potassium supplements. June 08: Serum sodium higher. Will give 1 L of D5W. Renal parameters stable. Continue to monitor electrolytes. Continue per consultants. June 07: 1 bolus of D5W. Renal parameters stable. Serum sodium slightly high. Stable from renal standpoint of view. June 06: We will again discontinue the IV ordered. Stable from renal stand point of view. Will start midodrine for low blood pressure. June 05: DC IV fluid. Potassium supplement given. Stable from renal standpoint to view. June 04: Potassium and magnesium supplement IV given, stable from renal standpoint of view. IV fluid D5W Monitor electrolytes Monitor renal parameters Hold blood pressure medication since blood pressure low Per orders, per consultants Subjective ROS Limited/Unobtainable: No Constitutional: Reports: malaise Objective Objective Last 24 Hour Vital Signs Date Time Temp Pulse Resp B/P (MAP) Pulse Ox O2 Delivery O2 Flow Rate FiO2 07/02/20 12:00 98.8 94 18 123/81 (95) 95 07/02/20 09:00 Room Air 07/02/20 08:40 93 120/73 07/02/20 08:00 98.1 93 19 120/73 (89) 99 07/02/20 04:00 98.1 93 18 99/57 (71) 95 07/02/20 00:00 98.4 105 18 107/59 (75) 96 07/01/20 22:35 98 111/63 07/01/20 21:00 Room Air 9/18/20 20:00 98.5 103 18 111/64 (80) 97 07/01/20 16:00 97.8 100 20 121/59 (79) 99 Intake and Output 0 07/01/20 07/02/20 19:00 07:00 Intake Total 960 ml 1100 ml Output Total 1500 ml 1300 ml Balance -540 ml -200 ml Free Water 310 ml 250 ml IV Total 50 ml 450 ml Tube Feeding 600 ml 400 ml Output Urine Total 1500 ml 1300 ml # Voids 1 # Bowel Movements 2 Laboratory Tests 07/02/20 04:50: Sodium Level 144, Potassium Level 4.0, Chloride Level 107, Carbon Dioxide Level 29, Anion Gap 8, Blood Urea Nitrogen 23H, Creatinine 1.1, Estimat Glomerular Filtration Rate > 60, Glucose Level 215H, Calcium Level 8.7, Phosphorus Level 3.3, Magnesium Level 2.3, Total Bilirubin 0.2, Aspartate Amino Transf (AST/SGOT) 20, Alanine Aminotransferase (ALT/SGPT) 15, Alkaline Phosphatase 120H, Total Protein 7.4, Albumin 1.9L, Globulin 5.5, Albumin/Globulin Ratio 0.3L Height (Feet): 5 Height (Inches): 5.00 Weight (Pounds): 123 General Appearance: no apparent distress Cardiovascular: tachycardia Respiratory/Chest: decreased breath sounds Abdomen: soft, distended Objective No change Eddie Nelson MD Jul 02, 2020 15:27
[2020-07-02 16:00] VITALS: BP 123/75
--- NOTE | 2020-07-02 16:24 | Internal Med Progress Note ---
Subjective Date of Service: Jul 02, 2020 Physician Name JordynTello Attending Physician Cirilo Rome MD Current Medications Medications (Trade) Dose Ordered Sig/Debi Route PRN Reason Start Time Stop Time Status Last Admin Dose Admin Acetaminophen (Tylenol) 650 mg Q6H PRN GT Temperature >100.4 07/01/20 17:45 07/31/20 17:44 Aspirin (ASA) 81 mg DAILY GT 06/28/20 09:00 07/17/20 08:59 07/02/20 08:40 Cefazolin Sodium 50 ml @ 100 mls/hr Q8HR@0100,0900,1700 IV 06/28/20 17:00 07/05/20 16:59 07/02/20 08:40 Dextrose (Dextrose 50%) 25 ml Q30M PRN IV Hypoglycemia 06/27/20 10:30 09/20/20 06:59 Dextrose (Dextrose 50%) 50 ml Q30M PRN IV Hypoglycemia 06/27/20 10:30 09/20/20 06:59 Famotidine (Pepcid) 20 mg BID GT 06/27/20 18:00 09/01/20 17:59 07/02/20 08:40 Heparin Sodium (Porcine) (Heparin 5000 units/ml) 5,000 units EVERY 12 HOURS SUBQ 06/27/20 21:00 07/17/20 08:59 07/02/20 08:39 Insulin Aspart (NovoLOG) Q6HR SUBQ 06/27/20 12:00 09/09/20 17:59 07/02/20 12:47 Insulin Detemir (Levemir) 15 units EVERY 12 HOURS SUBQ 07/01/20 09:00 09/09/20 20:59 07/02/20 08:38 Metoprolol Tartrate (Lopressor) 25 mg Q12HR GT 06/27/20 21:00 09/20/20 08:59 07/02/20 08:40 Midodrine (Pro-Amatine) 2.5 mg TIDPRN PRN GT blood pressure below 100 sbp 06/27/20 11:00 09/11/20 10:59 Pravastatin Sodium (Pravachol) 20 mg BEDTIME GT 06/27/20 21:00 07/02/20 20:59 07/01/20 22:35 Vancomycin HCl (Firvanq) 125 mg FOUR TIMES A DAY GT 06/28/20 13:00 07/08/20 12:59 07/02/20 12:45 Allergies: Coded Allergies: No Known Allergies (Unverified , 08/27/19) ROS Limited/Unobtainable: Yes Subjective 79 YO M admitted with hyperglycemia and hypernatremia. Now UTI. Cover for Int Dusty-Dr Rome Objective Last Vital Signs Date Time Temp Pulse Resp B/P (MAP) Pulse Ox O2 Delivery O2 Flow Rate FiO2 07/02/20 12:00 98.8 94 18 123/81 (95) 95 07/02/20 09:00 Room Air Laboratory Tests Test 07/02/20 04:50 Sodium Level 144 MMOL/L (136-145) Potassium Level 4.0 MMOL/L (3.5-5.1) Chloride Level 107 MMOL/L (98-107) Carbon Dioxide Level 29 MMOL/L (21-32) Anion Gap 8 mmol/L (5-15) Blood Urea Nitrogen 23 mg/dL (7-18) H Creatinine 1.1 MG/DL (0.55-1.30) Estimat Glomerular Filtration Rate > 60 mL/min (>60) Glucose Level 215 MG/DL (74-106) H Calcium Level 8.7 MG/DL (8.5-10.1) Phosphorus Level 3.3 MG/DL (2.5-4.9) Magnesium Level 2.3 MG/DL (1.8-2.4) Total Bilirubin 0.2 MG/DL (0.2-1.0) Aspartate Amino Transf (AST/SGOT) 20 U/L (15-37) Alanine Aminotransferase (ALT/SGPT) 15 U/L (12-78) Alkaline Phosphatase 120 U/L (46-116) H Total Protein 7.4 G/DL (6.4-8.2) Albumin 1.9 G/DL (3.4-5.0) L Globulin 5.5 g/dL Albumin/Globulin Ratio 0.3 (1.0-2.7) L Intake and Output 07/01/20 07/02/20 19:00 07:00 Intake Total 960 ml 1100 ml Output Total 1500 ml 1300 ml Balance -540 ml -200 ml Free Water 310 ml 250 ml IV Total 50 ml 450 ml Tube Feeding 600 ml 400 ml Output Urine Total 1500 ml 1300 ml # Voids 1 # Bowel Movements 2 Objective PHYSICAL EXAMINATION: GENERAL: The patient is a well-developed, well-nourished, thin-appearing, male, in no apparent distress. HEENT: Eyes, pupils equal and responsive to light and accommodation. Extraocular movements are intact. NECK: Supple without lymphadenopathy. CHEST: Lungs are clear to auscultation bilaterally without wheezes or rales. CARDIOVASCULAR: Slightly tachycardic, regular rhythm. S1, S2 are normal without murmurs, rubs, or gallops. ABDOMEN: Soft, nontender, and nondistended. Positive bowel sounds. No evidence of hepatosplenomegaly. Currently, no rebound or guarding noted. EXTREMITIES: Negative for clubbing, cyanosis, or edema. RECTAL: Not performed. GENITAL: Not performed. NEUROLOGIC: Cranial nerves II through XII are grossly intact without focal deficits. Assessment/Plan Assessment/Plan ASSESSMENT: This is a 79-year-old male with: 1. Hyperglycemia. 2. Hypernatremia. 3. Urinary tract infection=MDR proteus. 4. Diabetes type 2. 5. Hypertension. 6. Hypercholesterolemia. 7. Dysphagia. 8. Parkinson disease. 9. Ulcerative proctitis. 10. Protein-calorie malnutrition. 11. History of sacral decubitus ulcer stage IV. 12. Benign prostatic hypertrophy. 13. Gastroesophageal reflux disease. 14. Metabolic encephalopathy. 15. History of left hip fracture. 16. sepsis=staph aureus TREATMENT: 1. Hyperglycemia/diabetes. The patient has been placed on a protocol using NovoLog sliding scale. The patient's blood sugars have been running in 300s. Hyperglycemia may be secondary to urinary tract infection. 2. Urinary tract infection. Urine culture =MDR proteus. ABX= ertapenem and vancomycin results.ID=Dr Oliva 3. Hypertension. Continue amlodipine as above. 4. Hypercholesterolemia. Continue atorvastatin as above. 5. Dysphagia. The patient is status post PEG placement. 6. Parkinson disease. Continue amantadine as above. 7. Ulcerative proctitis. 8. Protein-calorie malnutrition. 9. Sacral decubitus ulcer stage IV. 10. Benign prostatic hypertrophy. Continue tamsulosin as above. 11. Gastroesophageal reflux disease. 12. Metabolic encephalopathy. 13. History of left hip fracture. 14. R/O endocarditis Tello Cobb MD Jul 02, 2020 16:24
--- NOTE | 2020-07-02 17:23 | Cardiology Progress Note ---
Assessment/Plan Problem List: (1) Hypernatremia (2) Staphylococcus aureus bacteremia (3) Dehydration (4) Feeding by G-tube (5) Parkinson disease (6) History of CVA (cerebrovascular accident) Status: unchanged Status Narrative Pt w/ multiple chronic medical issues, transferred from convalescent facility. He had s aureus bacteremia, and there is concern for endocarditis. repeat cultures, however, from 06/27, are negative Assessment/Plan Transthoracic echo did not show valve vegetations. Consideration for ELMO if consent can be obtained. Continue iv abx per ID Subjective ROS Limited/Unobtainable: Yes Subjective Cardiology for Dr. Kelley Pt alert, nonverbal. Objective Last 24 Hour Vital Signs Date Time Temp Pulse Resp B/P (MAP) Pulse Ox O2 Delivery O2 Flow Rate FiO2 07/02/20 16:00 97.8 103 18 123/75 (91) 94 07/02/20 12:00 98.8 94 18 123/81 (95) 95 07/02/20 09:00 Room Air 07/02/20 08:40 93 120/73 07/02/20 08:00 98.1 93 19 120/73 (89) 99 07/02/20 04:00 98.1 93 18 99/57 (71) 95 07/02/20 00:00 98.4 105 18 107/59 (75) 96 07/01/20 22:35 98 111/63 07/01/20 21:00 Room Air 07/01/20 20:00 98.5 103 18 111/64 (80) 97 General Appearance: WD/WN, alert EENT: PERRL/EOMI Neck: no JVD Rhythm: NSR Cardiovascular: normal rate, regular rhythm, no gallop/murmur Respiratory/Chest: lungs clear, other - clear anteriorly Abdomen: non tender, soft, other - + gtube Extremities: no swelling Intake and Output 07/01/20 07/02/20 19:00 07:00 Intake Total 960 ml 1100 ml Output Total 1500 ml 1300 ml Balance -540 ml -200 ml Free Water 310 ml 250 ml IV Total 50 ml 450 ml Tube Feeding 600 ml 400 ml Output Urine Total 1500 ml 1300 ml # Voids 1 # Bowel Movements 2 Laboratory Tests Test 07/02/20 04:50 Sodium Level 144 MMOL/L (136-145) Potassium Level 4.0 MMOL/L (3.5-5.1) Chloride Level 107 MMOL/L (98-107) Carbon Dioxide Level 29 MMOL/L (21-32) Anion Gap 8 mmol/L (5-15) Blood Urea Nitrogen 23 mg/dL (7-18) H Creatinine 1.1 MG/DL (0.55-1.30) Estimat Glomerular Filtration Rate > 60 mL/min (>60) Glucose Level 215 MG/DL (74-106) H Calcium Level 8.7 MG/DL (8.5-10.1) Phosphorus Level 3.3 MG/DL (2.5-4.9) Magnesium Level 2.3 MG/DL (1.8-2.4) Total Bilirubin 0.2 MG/DL (0.2-1.0) Aspartate Amino Transf (AST/SGOT) 20 U/L (15-37) Alanine Aminotransferase (ALT/SGPT) 15 U/L (12-78) Alkaline Phosphatase 120 U/L (46-116) H Total Protein 7.4 G/DL (6.4-8.2) Albumin 1.9 G/DL (3.4-5.0) L Globulin 5.5 g/dL Albumin/Globulin Ratio 0.3 (1.0-2.7) L Cathy Ballesteros MD Jul 02, 2020 17:23
--- NOTE | 2020-07-02 19:26 | NUR ---
NURSE HAND-OFF: Important Events on Shift:None Patient Status: stable Diet: Glucerna 1.5 50cc/hr H20 250ml q8 Pending Orders: n/a Pending Results/Labs:n/a Pending MD notification:n/a Latest Vital Signs: Temperature 97.8 , Pulse 103 , B/P 123 /75 , Respiratory Rate 18 , O2 SAT 94 , Room Air, O2 Flow Rate 3.0 . Vital Sign Comment: stable Latest Lane Fall Score: 55 Fall Risk: High Risk Safety Measures: Call light Within Reach, Bed Alarm Zone 1, Side Rails Side Rails x3, Bed position Low and Locked. Fall Precautions: Yellow Socks Yellow Gown Door Sign Report given to JOHNNY Curiel.
--- NOTE | 2020-07-02 19:38 | NUR ---
NURSE NOTES: Patient awake and aphasic. Patient able to deliver basic yes or no reply by facial expression. Breathing unlabored on room air without distress. Denies pain at this time. Intravenous access noted on left hand. G-tube noted in place, running feeding as ordered without residual. Bed placed at the lowest with alarm, brake, and siderails x 3. Call light placed within reach. Will continue to monitor.
[2020-07-02 20:00] VITALS: BP 116/70
[2020-07-03] VITALS: BP 118/74
[2020-07-03] MEDS: ceFAZolin 2gm/50ml Premix 50 ML IV SCH ×3 (01:10→17:31)
--- NOTE | 2020-07-03 01:38 | NUR ---
NURSE NOTES: Removed previous IV per patient request. Informed and explained the patient regarding the new IV insertion and placed new 24g IV on right forearm. Patient tolerated well. Asymptomatic, patent, and intact. Will continue to monitor.
[2020-07-03 04:00] VITALS: BP 124/72
[2020-07-03] MEDS: NovoLOG Insulin Flexpen SUBQ SCH ×4 (05:38→17:33)
--- NOTE | 2020-07-03 07:20 | NUR ---
NURSE HAND-OFF: Important Events on Shift: No adverse event during the shift Patient Status: Stable Diet: Glucerna 1.5 @ 50ml/hr Pending Orders: None Pending Results/Labs: None Pending MD notification: None Latest Vital Signs: Temperature 98.5 , Pulse 108 , B/P 124 /72 , Respiratory Rate 18 , O2 SAT 95 , Room Air, O2 Flow Rate 3.0 . Vital Sign Comment: Stable Latest Lane Fall Score: 55 Fall Risk: High Risk Safety Measures: Call light Within Reach, Bed Alarm Zone 1, Side Rails Side Rails x3, Bed position Low and Locked. Fall Precautions: Yellow Socks Yellow Gown Door Sign Report given to MOJGAN Mason. Addendum: 07/03/20 at 1846 by Moisés Stringer RN Wrong name indicated. Report given to JOHNNY Joyce.
[2020-07-03 07:21] LABS: BASOPHILS % (AUTO) 0.9 % (0.0-2.0); EOSINOPHILS % (AUTO) 1.9 % (0.0-3.0); HEMATOCRIT 32.7 % (42.0-52.0); HEMOGLOBIN 10.3 G/DL (14.2-18.0); LYMPHOCYTES % (AUTO) 29.1 % (20.0-45.0); MEAN CORPUSCULAR VOLUME 92 FL (80-99); MONOCYTES % (AUTO) 4.6 % (1.0-10.0); NEUTROPHILS % (AUTO) 63.6 % (45.0-75.0); PLATELET COUNT 539 K/UL (150-450); RED BLOOD COUNT 3.54 M/UL (4.70-6.10); RED CELL DISTRIBUTION WIDTH 16.1 % (11.6-14.8); WHITE BLOOD COUNT 9.9 K/UL (4.8-10.8)
[2020-07-03 07:47] LABS: ANION GAP 9 mmol/L (5-15); BLOOD UREA NITROGEN 30 mg/dL (7-18); CALCIUM 8.8 MG/DL (8.5-10.1); CARBON DIOXIDE 29 MMOL/L (21-32); CHLORIDE 108 MMOL/L (98-107); POTASSIUM 4.2 MMOL/L (3.5-5.1); SODIUM 146 MMOL/L (136-145)
--- NOTE | 2020-07-03 07:49 | NUR ---
NURSE NOTES: Report received from JOHNNY Curiel. Patient observed to be asleep with HOB elevated. Currently on room air, no s/sx of sob/distress, no c/o any pain or gi/gu discomfort. Patient on contact isolation for active CDIFF and ESBL. On Gtube feeding Glucerna 1.5 at 50cc with H20 flush of 250 q8. IV site located on RFA G24 asymptomatic, inplace and intact. Bed placed on lowest and locked, call light placed within reach and will continue to closely monitor patient for any changes in condition.
[2020-07-03] MEDS: Aspirin Baby 81mg GT SCH (08:30)
[2020-07-03] MEDS: Vancomycin oral 125mg/2.5ml GT SCH ×4 (08:30→20:18)
[2020-07-03] MEDS: Heparin 5000 units/ml inj SUBQ SCH ×2 (08:32→20:19)
[2020-07-03] MEDS: Levemir Flexpen SUBQ SCH ×2 (08:32→20:21)
[2020-07-03 09:00] VITALS: BP 116/65
--- NOTE | 2020-07-03 10:39 | General Progress Note ---
Subjective ROS Limited/Unobtainable: Yes Allergies: Coded Allergies: No Known Allergies (Unverified , 08/27/19) Subjective events noted and interval notes reviewed glucose values are stable without hypoglycemia Item Value Date Time Bedside Blood Glucose 145 mg/dl H 07/03/20 0832 Bedside Blood Glucose 199 mg/dl H 07/03/20 0538 Bedside Blood Glucose 174 mg/dl H 07/03/20 0000 Bedside Blood Glucose 157 mg/dl H 07/02/20 2048 Bedside Blood Glucose 171 mg/dl H 07/02/20 1800 Bedside Blood Glucose 230 mg/dl H 07/02/20 1247 Bedside Blood Glucose 194 mg/dl H 07/02/20 0838 Objective Last 24 Hour Vital Signs Date Time Temp Pulse Resp B/P (MAP) Pulse Ox O2 Delivery O2 Flow Rate FiO2 07/03/20 09:00 105 95/58 07/03/20 09:00 Room Air 07/03/20 09:00 97.5 105 18 116/65 (82) 95 07/03/20 04:00 98.5 108 18 124/72 (89) 95 07/03/20 00:00 98.5 106 20 118/74 (89) 95 07/02/20 21:00 Room Air 07/02/20 20:42 106 118/70 07/02/20 20:00 98.8 107 20 116/70 (85) 95 07/02/20 16:00 97.8 103 18 123/75 (91) 94 07/02/20 12:00 98.8 94 18 123/81 (95) 95 Intake and Output 07/02/20 07/03/20 19:00 07:00 Intake Total 1500 ml 880 ml Output Total 1000 ml 1100 ml Balance 500 ml -220 ml Free Water 750 ml 280 ml IV Total 500 ml 50 ml Tube Feeding 250 ml 550 ml Output Urine Total 1000 ml 1100 ml # Voids 1 # Bowel Movements 1 1 Laboratory Tests 07/03/20 05:45: White Blood Count 9.9, Red Blood Count 3.54L, Hemoglobin 10.3L, Hematocrit 32.7L , Mean Corpuscular Volume 92, Mean Corpuscular Hemoglobin 29.2, Mean Corpuscular Hemoglobin Concent 31.6L, Red Cell Distribution Width 16.1H, Platelet Count 539H , Mean Platelet Volume 7.4, Neutrophils (%) (Auto) 63.6, Lymphocytes (%) (Auto) 29.1, Monocytes (%) (Auto) 4.6, Eosinophils (%) (Auto) 1.9, Basophils (%) (Auto) 0.9, Sodium Level 146H, Potassium Level 4.2, Chloride Level 108H, Carbon Dioxide Level 29, Anion Gap 9, Blood Urea Nitrogen 30H, Creatinine 1.0, Estimat Glomerular Filtration Rate > 60, Glucose Level 206H, Calcium Level 8.8 Height (Feet): 5 Height (Inches): 5.00 Weight (Pounds): 123 General Appearance: no apparent distress Neck: normal alignment Cardiovascular: normal rate Respiratory/Chest: lungs clear Abdomen: normal bowel sounds Pelvis: normal external exam Objective Current Medications Medications (Trade) Dose Ordered Sig/Debi Route PRN Reason Start Time Stop Time Status Last Admin Dose Admin Acetaminophen (Tylenol) 650 mg Q6H PRN GT Temperature >100.4 07/01/20 17:45 07/31/20 17:44 Aspirin (ASA) 81 mg DAILY GT 06/28/20 09:00 07/17/20 08:59 07/03/20 08:30 Cefazolin Sodium 50 ml @ 100 mls/hr Q8HR@0100,0900,1700 IV 06/28/20 17:00 07/05/20 16:59 07/03/20 08:30 Dextrose (Dextrose 50%) 25 ml Q30M PRN IV Hypoglycemia 06/27/20 10:30 09/20/20 06:59 Dextrose (Dextrose 50%) 50 ml Q30M PRN IV Hypoglycemia 06/27/20 10:30 09/20/20 06:59 Famotidine (Pepcid) 20 mg BID GT 06/27/20 18:00 09/01/20 17:59 07/03/20 08:30 Heparin Sodium (Porcine) (Heparin 5000 units/ml) 5,000 units EVERY 12 HOURS SUBQ 06/27/20 21:00 07/17/20 08:59 07/03/20 08:32 Insulin Aspart (NovoLOG) Q6HR SUBQ 06/27/20 12:00 09/09/20 17:59 07/03/20 05:38 Insulin Detemir (Levemir) 15 units EVERY 12 HOURS SUBQ 07/01/20 09:00 09/09/20 20:59 07/03/20 08:32 Metoprolol Tartrate (Lopressor) 25 mg Q12HR GT 06/27/20 21:00 09/20/20 08:59 07/02/20 20:42 Midodrine (Pro-Amatine) 2.5 mg TIDPRN PRN GT blood pressure below 100 sbp 06/27/20 11:00 09/11/20 10:59 Vancomycin HCl (Firvanq) 125 mg FOUR TIMES A DAY GT 06/28/20 13:00 07/08/20 12:59 07/03/20 08:30 Assessment/Plan Problem List: (1) Hypernatremia ICD Codes: E87.0 - Hyperosmolality and hypernatremia SNOMED: 535216499 (2) Feeding by G-tube ICD Codes: Z93.1 - Gastrostomy status SNOMED: 160096590, 737380793, 290744453 (3) Diabetes mellitus ICD Codes: E11.9 - Type 2 diabetes mellitus without complications SNOMED: 98314470 (4) History of CVA (cerebrovascular accident) ICD Codes: Z86.73 - Personal history of transient ischemic attack (TIA), and cerebral infarction without residual deficits SNOMED: 037123747 (5) Parkinson disease ICD Codes: G20 - Parkinson's disease SNOMED: 06078181 Status: unchanged Assessment/Plan: continue Levemir 15 units bid continue Novolog sliding scale high dose every 6 hours Gregory Pastrana MD Jul 03, 2020 10:39
--- NOTE | 2020-07-03 11:29 | Pulmonology Progress Note ---
Subjective ROS Limited/Unobtainable: Yes Constitutional: Reports: no symptoms, anorexia HEENT: Repors: no symptoms Respiratory: Reports: no symptoms Cardiovascular: Reports: no symptoms Allergies: Coded Allergies: No Known Allergies (Unverified , 08/27/19) All Systems: reviewed and negative except above Objective Last 24 Hour Vital Signs Date Time Temp Pulse Resp B/P (MAP) Pulse Ox O2 Delivery O2 Flow Rate FiO2 07/03/20 09:00 105 95/58 07/03/20 09:00 Room Air 07/03/20 09:00 97.5 105 18 116/65 (82) 95 07/03/20 04:00 98.5 108 18 124/72 (89) 95 07/03/20 00:00 98.5 106 20 118/74 (89) 95 07/02/20 21:00 Room Air 07/02/20 20:42 106 118/70 07/02/20 20:00 98.8 107 20 116/70 (85) 95 07/02/20 16:00 97.8 103 18 123/75 (91) 94 07/02/20 12:00 98.8 94 18 123/81 (95) 95 Intake and Output 07/02/20 07/03/20 19:00 07:00 Intake Total 1500 ml 880 ml Output Total 1000 ml 1100 ml Balance 500 ml -220 ml Free Water 750 ml 280 ml IV Total 500 ml 50 ml Tube Feeding 250 ml 550 ml Output Urine Total 1000 ml 1100 ml # Voids 1 # Bowel Movements 1 1 General Appearance: cachetic HEENT: normocephalic, atraumatic Respiratory: chest wall non-tender, normal breath sounds Cardiovascular: normal peripheral pulses, normal rate, JVD Abdomen: normal bowel sounds, hyperactive bowel sounds Genitourinary: normal external genitalia Extremities: no clubbing Skin: no lesions Neurologic: 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 metal 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 II-XII grossly normal Lymphatic: no neck adenopathy Laboratory Tests 07/03/20 05:45: White Blood Count 9.9, Red Blood Count 3.54L, Hemoglobin 10.3L, Hematocrit 32.7L , Mean Corpuscular Volume 92, Mean Corpuscular Hemoglobin 29.2, Mean Corpuscular Hemoglobin Concent 31.6L, Red Cell Distribution Width 16.1H, Platelet Count 539H , Mean Platelet Volume 7.4, Neutrophils (%) (Auto) 63.6, Lymphocytes (%) (Auto) 29.1, Monocytes (%) (Auto) 4.6, Eosinophils (%) (Auto) 1.9, Basophils (%) (Auto) 0.9, Sodium Level 146H, Potassium Level 4.2, Chloride Level 108H, Carbon Dioxide Level 29, Anion Gap 9, Blood Urea Nitrogen 30H, Creatinine 1.0, Estimat Glomerular Filtration Rate > 60, Glucose Level 206H, Calcium Level 8.8 Current Medications Medications (Trade) Dose Ordered Sig/Debi Route PRN Reason Start Time Stop Time Status Last Admin Dose Admin Acetaminophen (Tylenol) 650 mg Q6H PRN GT Temperature >100.4 07/01/20 17:45 07/31/20 17:44 Aspirin (ASA) 81 mg DAILY GT 06/28/20 09:00 07/17/20 08:59 07/03/20 08:30 Cefazolin Sodium 50 ml @ 100 mls/hr Q8HR@0100,0900,1700 IV 06/28/20 17:00 07/05/20 16:59 07/03/20 08:30 Dextrose (Dextrose 50%) 25 ml Q30M PRN IV Hypoglycemia 06/27/20 10:30 09/20/20 06:59 Dextrose (Dextrose 50%) 50 ml Q30M PRN IV Hypoglycemia 06/27/20 10:30 09/20/20 06:59 Famotidine (Pepcid) 20 mg BID GT 06/27/20 18:00 09/01/20 17:59 07/03/20 08:30 Heparin Sodium (Porcine) (Heparin 5000 units/ml) 5,000 units EVERY 12 HOURS SUBQ 06/27/20 21:00 07/17/20 08:59 07/03/20 08:32 Insulin Aspart (NovoLOG) Q6HR SUBQ 06/27/20 12:00 09/09/20 17:59 07/03/20 05:38 Insulin Detemir (Levemir) 15 units EVERY 12 HOURS SUBQ 07/01/20 09:00 09/09/20 20:59 07/03/20 08:32 Metoprolol Tartrate (Lopressor) 25 mg Q12HR GT 06/27/20 21:00 09/20/20 08:59 07/02/20 20:42 Midodrine (Pro-Amatine) 2.5 mg TIDPRN PRN GT blood pressure below 100 sbp 06/27/20 11:00 09/11/20 10:59 Vancomycin HCl (Firvanq) 125 mg FOUR TIMES A DAY GT 06/28/20 13:00 07/08/20 12:59 07/03/20 08:30 Assessment/Plan Problems: (1) Clostridium difficile colitis (2) Staphylococcus aureus bacteremia (3) Sepsis (4) Multiple drug resistant organism (MDRO) culture positive (5) Hypernatremia (6) History of CVA (cerebrovascular accident) (7) History of hypertension (8) Parkinson disease (9) Severe protein-calorie malnutrition (10) Feeding by G-tube (11) Diabetes mellitus Assessment/Plan wbc is normal today C-diff positive Na is still high still low grade temp repeat all cultures , Urine has proteus,,MDR COVID Negative sliding scale all reviewed, symptomatic treatment dvt prophylaxis Latanya Mckeon MD Jul 03, 2020 11:29
[2020-07-03 12:00] VITALS: BP 94/57
--- NOTE | 2020-07-03 12:41 | Nephrology Progress Note ---
Assessment/Plan Problem List: (1) Hypernatremia (2) Sepsis (3) History of CVA (cerebrovascular accident) (4) Parkinson disease (5) Feeding by G-tube (6) Dehydration Assessment KELLY, resolving, serum creatinine of 1.9 now down to 1.2 Hypernatremia, dehydration, free water deficit Sepsis Diabetes mellitus [id number] GT feeding Severe protein calorie malnutrition History of CVA History of hypertension Parkinson's disease Plan July 03: Lab reviewed. Stable renal parameters. Continue per consultants. July 02: Labs reviewed. IV fluids discontinued. Electrolytes within normal range. July 01: Lab reviewed. Serum sodium lowering. Will decrease D5W to 50 cc an hour. Continue per consultants. Meds reviewed. Continue to monitor electrolytes and renal parameters. June 30: Lab reviewed. Serum sodium is lowering. Other electrolytes and renal parameters stable. Continue as is. June 29: Labs reviewed. Discussed with RN. Serum sodium lowering on D5W IV infusion. Patient due for CT scan of the abdomen today. Continue to monitor electrolytes. June 28: Lab reviewed. Discussed with RN. Serum sodium higher. Will start 150 cc an hour D5W. Patient off feeding waiting for a CT of the abdomen. Continue to monitor electrolytes. Try to keep the blood sugar in check. June 27: Lab reviewed. Urine sodium elevated. Renal parameters stable. Continue to administer free water for hypernatremia. June 26: Lab reviewed. Serum sodium higher. Will give D5W bolus. Continue to monitor electrolytes. June 24: Lab reviewed. Renal parameters stable. Will discontinue IV fluid. Continue her consultants. June 23: Labs reviewed. Medication list reviewed. Renal parameters stable. Blood sugar needs better control. Defer to PMD and division roadmaster. June 22: Clinically stable. Labs reviewed. Blood sugar elevated. Renal parameters stable. Continue blood sugar management per division roadmaster June 21: Patient is febrile today. Abnormal electrolytes addressed. Stable from renal standpoint of view. June 20: No chemistry panel done today. Stable from renal standpoint. Will order chemistry panel tomorrow June 19: Labs reviewed. Phosphorus supplement given. Stable from renal standpoint of view. June 18: Lab reviewed. Serum sodium lower. Creatinine 1.1. Continue current management. June 17: Lab reviewed. Sodium 160. Creatinine 1.3. Calcium lower at 9. Will continue D5W. June 16: Labs reviewed. Renal parameters stable. Serum calcium lowering. Serum sodium lowering. Serum creatinine 1.3. Another 1 L of D5W ordered. June 15: Lab reviewed. Serum sodium high. 1 L D5W given. Serum creatinine 1.4. Pamidronate given yesterday. Continue to monitor serum calcium. June 14: Lab reviewed. Serum calcium high corrected for low serum albumin. 60 mg pamidronate ID given. Continue to monitor renal parameters calcium and phosphorus. June 13: Lab reviewed. Medication list reviewed. Renal parameters stable. Will watch serum calcium and serum sodium. Chemistry panel tomorrow. June 12: Labs reviewed. Stable from renal standpoint of view. June 11: Labs reviewed. Stable renal parameters. June 10: Lab reviewed. Serum potassium normalized. Will give 1 L of D5W for high serum sodium. Continue per consultants. June 09: Labs reviewed. Discussed with RN. Serum potassium elevated. Suspect hemolysis. Will repeat serum potassium. DC all potassium supplements. June 08: Serum sodium higher. Will give 1 L of D5W. Renal parameters stable. Continue to monitor electrolytes. Continue per consultants. June 07: 1 bolus of D5W. Renal parameters stable. Serum sodium slightly high. Stable from renal standpoint of view. June 06: We will again discontinue the IV ordered. Stable from renal standpoint of view. Will start midodrine for low blood pressure. June 05: DC IV fluid. Potassium supplement given. Stable from renal standpoint to view. June 04: Potassium and magnesium supplement IV given, stable from renal standpoint of view. IV fluid D5W Monitor electrolytes Monitor renal parameters Hold blood pressure medication since blood pressure low Per orders, per consultants Subjective ROS Limited/Unobtainable: No Constitutional: Reports: malaise Objective Objective Last 24 Hour Vital Signs Date Time Temp Pulse Resp B/P (MAP) Pulse Ox O2 Delivery O2 Flow Rate FiO2 07/03/20 09:00 105 95/58 07/03/20 09:00 Room Air 07/03/20 09:00 97.5 105 18 116/65 (82) 95 07/03/20 04:00 98.5 108 18 124/72 (89) 95 07/03/20 00:00 98.5 106 20 118/74 (89) 95 07/02/20 21:00 Room Air 07/02/20 20:42 106 118/70 07/02/20 20:00 98.8 107 20 116/70 (85) 95 07/02/20 16:00 97.8 103 18 123/75 (91) 94 Intake and Output 07/02/20 07/03/20 19:00 07:00 Intake Total 1500 ml 880 ml Output Total 1000 ml 1100 ml Balance 500 ml -220 ml Free Water 750 ml 280 ml IV Total 500 ml 50 ml Tube Feeding 250 ml 550 ml Output Urine Total 1000 ml 1100 ml # Voids 1 # Bowel Movements 1 1 Current Medications Medications (Trade) Dose Ordered Sig/Debi Route PRN Reason Start Time Stop Time Status Last Admin Dose Admin Acetaminophen (Tylenol) 650 mg Q6H PRN GT Temperature >100.4 07/01/20 17:45 07/31/20 17:44 Aspirin (ASA) 81 mg DAILY GT 06/28/20 09:00 07/17/20 08:59 07/03/20 08:30 Cefazolin Sodium 50 ml @ 100 mls/hr Q8HR@0100,0900,1700 IV 06/28/20 17:00 07/05/20 16:59 07/03/20 08:30 Dextrose (Dextrose 50%) 25 ml Q30M PRN IV Hypoglycemia 06/27/20 10:30 09/20/20 06:59 Dextrose (Dextrose 50%) 50 ml Q30M PRN IV Hypoglycemia 06/27/20 10:30 09/20/20 06:59 Famotidine (Pepcid) 20 mg BID GT 06/27/20 18:00 09/01/20 17:59 07/03/20 08:30 Heparin Sodium (Porcine) (Heparin 5000 units/ml) 5,000 units EVERY 12 HOURS SUBQ 06/27/20 21:00 07/17/20 08:59 07/03/20 08:32 Insulin Aspart (NovoLOG) Q6HR SUBQ 06/27/20 12:00 09/09/20 17:59 07/03/20 12:10 Insulin Detemir (Levemir) 15 units EVERY 12 HOURS SUBQ 07/01/20 09:00 09/09/20 20:59 07/03/20 08:32 Metoprolol Tartrate (Lopressor) 25 mg Q12HR GT 06/27/20 21:00 09/20/20 08:59 07/02/20 20:42 Midodrine (Pro-Amatine) 2.5 mg TIDPRN PRN GT blood pressure below 100 sbp 06/27/20 11:00 09/11/20 10:59 Vancomycin HCl (Firvanq) 125 mg FOUR TIMES A DAY GT 06/28/20 13:00 07/08/20 12:59 07/03/20 12:11 Laboratory Tests 07/03/20 05:45: White Blood Count 9.9, Red Blood Count 3.54L, Hemoglobin 10.3L, Hematocrit 32.7L , Mean Corpuscular Volume 92, Mean Corpuscular Hemoglobin 29.2, Mean Corpuscular Hemoglobin Concent 31.6L, Red Cell Distribution Width 16.1H, Platelet Count 539H , Mean Platelet Volume 7.4, Neutrophils (%) (Auto) 63.6, Lymphocytes (%) (Auto) 29.1, Monocytes (%) (Auto) 4.6, Eosinophils (%) (Auto) 1.9, Basophils (%) (Auto) 0.9, Sodium Level 146H, Potassium Level 4.2, Chloride Level 108H, Carbon Dioxide Level 29, Anion Gap 9, Blood Urea Nitrogen 30H, Creatinine 1.0, Estimat Glomerular Filtration Rate > 60, Glucose Level 206H, Calcium Level 8.8 Height (Feet): 5 Height (Inches): 5.00 Weight (Pounds): 123 General Appearance: no apparent distress Cardiovascular: tachycardia Respiratory/Chest: decreased breath sounds Abdomen: distended Objective No change Eddie Nelson MD Jul 03, 2020 12:41
--- NOTE | 2020-07-03 13:18 | Surgery Progress Note ---
Surgery Progress Note Subjective Symptoms: improved, tolerating diet Objective Last 24 Hour Vital Signs Date Time Temp Pulse Resp B/P (MAP) Pulse Ox O2 Delivery O2 Flow Rate FiO2 07/03/20 12:00 96.9 109 17 94/57 (69) 99 07/03/20 09:00 105 95/58 07/03/20 09:00 Room Air 07/03/20 09:00 97.5 105 18 116/65 (82) 95 07/03/20 04:00 98.5 108 18 124/72 (89) 95 07/03/20 00:00 98.5 106 20 118/74 (89) 95 07/02/20 21:00 Room Air 07/02/20 20:42 106 118/70 07/02/20 20:00 98.8 107 20 116/70 (85) 95 07/02/20 16:00 97.8 103 18 123/75 (91) 94 I&O Intake and Output 07/02/20 07/03/20 19:00 07:00 Intake Total 1500 ml 880 ml Output Total 1000 ml 1100 ml Balance 500 ml -220 ml Free Water 750 ml 280 ml IV Total 500 ml 50 ml Tube Feeding 250 ml 550 ml Output Urine Total 1000 ml 1100 ml # Voids 1 # Bowel Movements 1 1 Cardiovascular: RSR Respiratory: decreased breath sounds Abdomen: soft, non-tender, present bowel sounds Extremities: no cyanosis Laboratory Tests Test 07/03/20 05:45 White Blood Count 9.9 K/UL (4.8-10.8) Red Blood Count 3.54 M/UL (4.70-6.10) L Hemoglobin 10.3 G/DL (14.2-18.0) L Hematocrit 32.7 % (42.0-52.0) L Mean Corpuscular Volume 92 FL (80-99) Mean Corpuscular Hemoglobin 29.2 PG (27.0-31.0) Mean Corpuscular Hemoglobin Concent 31.6 G/DL (32.0-36.0) L Red Cell Distribution Width 16.1 % (11.6-14.8) H Platelet Count 539 K/UL (150-450) H Mean Platelet Volume 7.4 FL (6.5-10.1) Neutrophils (%) (Auto) 63.6 % (45.0-75.0) Lymphocytes (%) (Auto) 29.1 % (20.0-45.0) Monocytes (%) (Auto) 4.6 % (1.0-10.0) Eosinophils (%) (Auto) 1.9 % (0.0-3.0) Basophils (%) (Auto) 0.9 % (0.0-2.0) Sodium Level 146 MMOL/L (136-145) H Potassium Level 4.2 MMOL/L (3.5-5.1) Chloride Level 108 MMOL/L (98-107) H Carbon Dioxide Level 29 MMOL/L (21-32) Anion Gap 9 mmol/L (5-15) Blood Urea Nitrogen 30 mg/dL (7-18) H Creatinine 1.0 MG/DL (0.55-1.30) Estimat Glomerular Filtration Rate > 60 mL/min (>60) Glucose Level 206 MG/DL (74-106) H Calcium Level 8.8 MG/DL (8.5-10.1) Plan Problems: (1) Hypernatremia (2) Dehydration (3) Hip fracture, left (4) Diabetes mellitus (5) History of hypertension (6) Severe protein-calorie malnutrition Assessment & Plan: DAILY ESTIMATED NEEDS: Needs based on Sepsis, DM/ 54kg 30-40 kcals/kg 9032-7935 total kcals 1.25-2 g protein/kg 68-108 g total protein 25-35ml/kcal mL/kg 8087-3039 total fluid mLs NUTRITION DIAGNOSIS: * Swallowing difficulty R/T dysphagia, as evidenced by Pt is GT dep. (CURRENT TF: Glucerna 1.5 @ 30ml/hr x 24 hrs) ENTERAL NUTRITION RECOMMENDATIONS: Glucerna 1.5 @ 60ml/hr x 20 hrs to provide 1200ml, 1800kcal, 99g prot, 911ml free water, 160g carbs * Rec to INCREASE TF GOAL to 60ml/hr for 20 hrs * HOB over 30 degrees, increased water flushes * TF at goal meets 100% est needs. -------- ADDITIONAL RECOMMENDATIONS: * Calibrated bedscale wt for accurate CBW * Monitor lytes daily w/ TF, replete as needed * Pt may require increase in insulin regimen for improved BG W/ continuous TF infusion * Wound healing: DOMENICA BID, F/up w/ WC eval . (7) Acute encephalopathy (8) Pressure Ulcer Of Sacral Region, Unstageable Assessment & Plan: Pt presented on admission with purple and indurated area at Sacrococcygeal at previously compromised site(L)7cm x (W)3cm.Surrounding Hyperpigmentation at Sacrum. Non-Blanching erythema without fluctuance R heel. Non-Blanching erythema with delineated margins L heel (L)4.5cm x (W)5.5cm. L Heel is boggy . Tx.Plan: Apply Moisture Barrier Paste to Sacrum. Cover with Optifoam drsgs. Change every 3 days and prn. Apply Cavilon Skin Barrier to R and L trochanter. Cover each site with Optifoam drsgs. Change every 7 days and prn. Apply Cavilon Skin Barrier to each heel and malleoli. Cover each site with Optifoam drsgs. Change every 7 days and prn. Reposition at least every 2hours or as tolerated. Off-load heels with pillow. improving cont current care tube site okay (9) Feeding by G-tube (10) Abdominal distention (11) Multiple drug resistant organism (MDRO) culture positive (12) Sepsis (13) History of CVA (cerebrovascular accident) (14) Parkinson disease (15) Staphylococcus aureus bacteremia Assessment & Plan: repeat blood cultures negative on abx unlikely source of bacteremia from wounds. will monitor cont local wound care improving leukocytosis James Breen Jul 03, 2020 13:18
[2020-07-03 16:00] VITALS: BP 103/60
--- NOTE | 2020-07-03 16:34 | Cardiology Progress Note ---
Assessment/Plan Problem List: (1) Hypernatremia (2) Staphylococcus aureus bacteremia (3) Dehydration (4) Feeding by G-tube (5) Parkinson disease (6) History of CVA (cerebrovascular accident) Status: stable, unchanged Status Narrative Pt w/ multiple chronic medical issues, transferred from convalescent facility. He had s aureus bacteremia, MSSA and there is concern for endocarditis. repeat cultures, however, from 06/27, are negative He also has Proteus UTI, Assessment/Plan Hemodynamically stable. No new + cultures. Transthoracic echo did not show valve vegetations. Consideration for ELMO if consent can be obtained. Continue iv abx per ID Subjective ROS Limited/Unobtainable: Yes Subjective Cardiology for Dr. Kelley Pt alert, in NAD. Minimal verbal responses Objective Last 24 Hour Vital Signs Date Time Temp Pulse Resp B/P (MAP) Pulse Ox O2 Delivery O2 Flow Rate FiO2 07/03/20 12:00 96.9 109 17 94/57 (69) 99 07/03/20 09:00 105 95/58 07/03/20 09:00 Room Air 07/03/20 09:00 97.5 105 18 116/65 (82) 95 07/03/20 04:00 98.5 108 18 124/72 (89) 95 07/03/20 00:00 98.5 106 20 118/74 (89) 95 07/02/20 21:00 Room Air 07/02/20 20:42 106 118/70 07/02/20 20:00 98.8 107 20 116/70 (85) 95 General Appearance: WD/WN, no apparent distress, alert EENT: PERRL/EOMI Neck: supple, no JVD Rhythm: NSR Cardiovascular: normal rate, regular rhythm, no gallop/murmur Respiratory/Chest: lungs clear, other - clear anteriorly Abdomen: non tender, soft, other - + g tube Extremities: no swelling Intake and Output 07/02/20 07/03/20 19:00 07:00 Intake Total 1500 ml 880 ml Output Total 1000 ml 1100 ml Balance 500 ml -220 ml Free Water 750 ml 280 ml IV Total 500 ml 50 ml Tube Feeding 250 ml 550 ml Output Urine Total 1000 ml 1100 ml # Voids 1 # Bowel Movements 1 1 Laboratory Tests Test 07/03/20 05:45 White Blood Count 9.9 K/UL (4.8-10.8) Red Blood Count 3.54 M/UL (4.70-6.10) L Hemoglobin 10.3 G/DL (14.2-18.0) L Hematocrit 32.7 % (42.0-52.0) L Mean Corpuscular Volume 92 FL (80-99) Mean Corpuscular Hemoglobin 29.2 PG (27.0-31.0) Mean Corpuscular Hemoglobin Concent 31.6 G/DL (32.0-36.0) L Red Cell Distribution Width 16.1 % (11.6-14.8) H Platelet Count 539 K/UL (150-450) H Mean Platelet Volume 7.4 FL (6.5-10.1) Neutrophils (%) (Auto) 63.6 % (45.0-75.0) Lymphocytes (%) (Auto) 29.1 % (20.0-45.0) Monocytes (%) (Auto) 4.6 % (1.0-10.0) Eosinophils (%) (Auto) 1.9 % (0.0-3.0) Basophils (%) (Auto) 0.9 % (0.0-2.0) Sodium Level 146 MMOL/L (136-145) H Potassium Level 4.2 MMOL/L (3.5-5.1) Chloride Level 108 MMOL/L (98-107) H Carbon Dioxide Level 29 MMOL/L (21-32) Anion Gap 9 mmol/L (5-15) Blood Urea Nitrogen 30 mg/dL (7-18) H Creatinine 1.0 MG/DL (0.55-1.30) Estimat Glomerular Filtration Rate > 60 mL/min (>60) Glucose Level 206 MG/DL (74-106) H Calcium Level 8.8 MG/DL (8.5-10.1) Cathy Ballesteros MD Jul 03, 2020 16:34
--- NOTE | 2020-07-03 16:42 | NUR ---
NURSE NOTES:WOUND CARE FOLLOW-UP NOTES:Hyperpigmentation from historical Pressure injury with surrounding dry brown borders noted to sacrum. Scattered areas of dry peeling skin noted to R and L buttocks. Both heels are boggy but blanchable. Tx.Plan: Apply Moisture Barrier Paste to Buttocks with each incontinence care. Cover Sacrum with Optifoam drsg. Change every 3 days and prn. Apply Cavilon Skin Barrier to both heels. Cover each Heel with Optifoam drsg. Change every 7 days and prn. Cover Bony Prominences as needed with Optifoam drsg. Reposition at least every 2hours or as tolerated. Off-load heels with pillow.
--- NOTE | 2020-07-03 16:49 | Internal Med Progress Note ---
Subjective Date of Service: Jul 03, 2020 Physician Name Tello Cobb Attending Physician Cirilo Rome MD Current Medications Medications (Trade) Dose Ordered Sig/Debi Route PRN Reason Start Time Stop Time Status Last Admin Dose Admin Acetaminophen (Tylenol) 650 mg Q6H PRN GT Temperature >100.4 07/01/20 17:45 07/31/20 17:44 Aspirin (ASA) 81 mg DAILY GT 06/28/20 09:00 07/17/20 08:59 07/03/20 08:30 Cefazolin Sodium 50 ml @ 100 mls/hr Q8HR@0100,0900,1700 IV 06/28/20 17:00 07/05/20 16:59 07/03/20 08:30 Dextrose (Dextrose 50%) 25 ml Q30M PRN IV Hypoglycemia 06/27/20 10:30 09/20/20 06:59 Dextrose (Dextrose 50%) 50 ml Q30M PRN IV Hypoglycemia 06/27/20 10:30 09/20/20 06:59 Famotidine (Pepcid) 20 mg BID GT 06/27/20 18:00 09/01/20 17:59 07/03/20 08:30 Heparin Sodium (Porcine) (Heparin 5000 units/ml) 5,000 units EVERY 12 HOURS SUBQ 06/27/20 21:00 07/17/20 08:59 07/03/20 08:32 Insulin Aspart (NovoLOG) Q6HR SUBQ 06/27/20 12:00 09/09/20 17:59 07/03/20 12:10 Insulin Detemir (Levemir) 15 units EVERY 12 HOURS SUBQ 07/01/20 09:00 09/09/20 20:59 07/03/20 08:32 Metoprolol Tartrate (Lopressor) 25 mg Q12HR GT 06/27/20 21:00 09/20/20 08:59 07/02/20 20:42 Midodrine (Pro-Amatine) 2.5 mg TIDPRN PRN GT blood pressure below 100 sbp 06/27/20 11:00 09/11/20 10:59 Vancomycin HCl (Firvanq) 125 mg FOUR TIMES A DAY GT 06/28/20 13:00 07/08/20 12:59 07/03/20 12:11 Allergies: Coded Allergies: No Known Allergies (Unverified , 08/27/19) ROS Limited/Unobtainable: Yes Subjective 79 YO M admitted with hyperglycemia and hypernatremia. Now UTI. Cover for Int Dusty-Dr Rome Objective Last Vital Signs Date Time Temp Pulse Resp B/P (MAP) Pulse Ox O2 Delivery O2 Flow Rate FiO2 07/03/20 16:00 96.8 114 20 103/60 (74) 100 07/03/20 09:00 Room Air Laboratory Tests Test 07/03/20 05:45 White Blood Count 9.9 K/UL (4.8-10.8) Red Blood Count 3.54 M/UL (4.70-6.10) L Hemoglobin 10.3 G/DL (14.2-18.0) L Hematocrit 32.7 % (42.0-52.0) L Mean Corpuscular Volume 92 FL (80-99) Mean Corpuscular Hemoglobin 29.2 PG (27.0-31.0) Mean Corpuscular Hemoglobin Concent 31.6 G/DL (32.0-36.0) L Red Cell Distribution Width 16.1 % (11.6-14.8) H Platelet Count 539 K/UL (150-450) H Mean Platelet Volume 7.4 FL (6.5-10.1) Neutrophils (%) (Auto) 63.6 % (45.0-75.0) Lymphocytes (%) (Auto) 29.1 % (20.0-45.0) Monocytes (%) (Auto) 4.6 % (1.0-10.0) Eosinophils (%) (Auto) 1.9 % (0.0-3.0) Basophils (%) (Auto) 0.9 % (0.0-2.0) Sodium Level 146 MMOL/L (136-145) H Potassium Level 4.2 MMOL/L (3.5-5.1) Chloride Level 108 MMOL/L (98-107) H Carbon Dioxide Level 29 MMOL/L (21-32) Anion Gap 9 mmol/L (5-15) Blood Urea Nitrogen 30 mg/dL (7-18) H Creatinine 1.0 MG/DL (0.55-1.30) Estimat Glomerular Filtration Rate > 60 mL/min (>60) Glucose Level 206 MG/DL (74-106) H Calcium Level 8.8 MG/DL (8.5-10.1) Intake and Output 07/02/20 07/03/20 19:00 07:00 Intake Total 1500 ml 880 ml Output Total 1000 ml 1100 ml Balance 500 ml -220 ml Free Water 750 ml 280 ml IV Total 500 ml 50 ml Tube Feeding 250 ml 550 ml Output Urine Total 1000 ml 1100 ml # Voids 1 # Bowel Movements 1 1 Objective PHYSICAL EXAMINATION: GENERAL: The patient is a well-developed, well-nourished, thin-appearing, male, in no apparent distress. HEENT: Eyes, pupils equal and responsive to light and accommodation. Extraocular movements are intact. NECK: Supple without lymphadenopathy. CHEST: Lungs are clear to auscultation bilaterally without wheezes or rales. CARDIOVASCULAR: Slightly tachycardic, regular rhythm. S1, S2 are normal without murmurs, rubs, or gallops. ABDOMEN: Soft, nontender, and nondistended. Positive bowel sounds. No evidence of hepatosplenomegaly. Currently, no rebound or guarding noted. EXTREMITIES: Negative for clubbing, cyanosis, or edema. RECTAL: Not performed. GENITAL: Not performed. NEUROLOGIC: Cranial nerves II through XII are grossly intact without focal deficits. Assessment/Plan Assessment/Plan ASSESSMENT: This is a 79-year-old male with: 1. Hyperglycemia. 2. Hypernatremia. 3. Urinary tract infection=MDR proteus. 4. Diabetes type 2. 5. Hypertension. 6. Hypercholesterolemia. 7. Dysphagia. 8. Parkinson disease. 9. Ulcerative proctitis. 10. Protein-calorie malnutrition. 11. History of sacral decubitus ulcer stage IV. 12. Benign prostatic hypertrophy. 13. Gastroesophageal reflux disease. 14. Metabolic encephalopathy. 15. History of left hip fracture. 16. sepsis=staph aureus TREATMENT: 1. Hyperglycemia/diabetes. The patient has been placed on a protocol using NovoLog sliding scale. The patient's blood sugars have been running in 300s. Hyperglycemia may be secondary to urinary tract infection. 2. Urinary tract infection. Urine culture =MDR proteus. ABX= ertapenem and vancomycin results.ID=Dr Oliva 3. Hypertension. Continue amlodipine as above. 4. Hypercholesterolemia. Continue atorvastatin as above. 5. Dysphagia. The patient is status post PEG placement. 6. Parkinson disease. Continue amantadine as above. 7. Ulcerative proctitis. 8. Protein-calorie malnutrition. 9. Sacral decubitus ulcer stage IV. 10. Benign prostatic hypertrophy. Continue tamsulosin as above. 11. Gastroesophageal reflux disease. 12. Metabolic encephalopathy. 13. History of left hip fracture. 14. R/O endocarditis Tello Cobb MD Jul 03, 2020 16:49
--- NOTE | 2020-07-03 18:58 | NUR ---
NURSE HAND-OFF: Important Events on Shift: none Patient Status: stable Diet: glucerna 1.5 50cc/hr h20 250cc q8 Pending Orders: none Pending Results/Labs:none Pending MD notification:none Latest Vital Signs: Temperature 96.8 , Pulse 114 , B/P 103 /60 , Respiratory Rate 20 , O2 SAT 100 , Room Air, O2 Flow Rate 3.0 . Vital Sign Comment: stable Latest Lane Fall Score: 55 Fall Risk: High Risk Safety Measures: Call light Within Reach, Bed Alarm Zone 1, Side Rails Side Rails x3, Bed position Low and Locked. Fall Precautions: Yellow Socks Yellow Gown Door Sign Report given to JOHNNY Tracy.
--- NOTE | 2020-07-03 19:57 | NUR ---
NURSE NOTES: Received patient awake in bed, no s/s of acute distress, refuses to speak/respond at this time. IV access patent, site asymptomatic. G tube feeding noted, patient tolerating well. Bed low and locked, patient wearing non slip socks.
[2020-07-03 20:00] VITALS: BP 120/64
[2020-07-04] VITALS: BP 96/59
[2020-07-04] MEDS: ceFAZolin 2gm/50ml Premix 50 ML IV SCH ×3 (00:20→17:36)
[2020-07-04 04:00] VITALS: BP 108/61
[2020-07-04] MEDS: NovoLOG Insulin Flexpen SUBQ SCH ×4 (05:18→17:49)
--- NOTE | 2020-07-04 06:47 | General Progress Note ---
Subjective Allergies: Coded Allergies: No Known Allergies (Unverified , 08/27/19) Subjective events noted and interval notes reviewed glucose values are on the low normal side Item Value Date Time Bedside Blood Glucose 99 mg/dl 07/04/20 0531 Bedside Blood Glucose 105 mg/dl 07/04/20 0021 Bedside Blood Glucose 187 mg/dl H 07/03/202020 Bedside Blood Glucose 187 mg/dl H 07/03/20 1800 Bedside Blood Glucose 160 mg/dl H 07/03/20 1210 Bedside Blood Glucose 145 mg/dl H 07/03/20 0832 Bedside Blood Glucose 199 mg/dl H 07/03/20 0538 Objective Last 24 Hour Vital Signs Date Time Temp Pulse Resp B/P (MAP) Pulse Ox O2 Delivery O2 Flow Rate FiO2 07/04/20 04:00 97.5 90 22 108/61 (77) 100 07/04/20 00:00 96.8 101 22 96/59 (71) 100 07/03/20 21:43 Room Air 07/03/20 20:18 114 103/60 07/03/20 20:00 97.0 107 22 120/64 (82) 100 07/03/20 16:00 96.8 114 20 103/60 (74) 100 07/03/20 12:00 96.9 109 17 94/57 (69) 99 07/03/20 09:00 105 95/58 07/03/20 09:00 Room Air 07/03/20 09:00 97.5 105 18 116/65 (82) 95 Intake and Output 07/03/20 07/04/20 19:00 07:00 Intake Total 450 ml 570 ml Output Total 800 ml 600 ml Balance -350 ml -30 ml Free Water 250 ml 120 ml Tube Feeding 200 ml 450 ml Output Urine Total 800 ml 600 ml # Bowel Movements 2 2 Height (Feet): 5 Height (Inches): 5.00 Weight (Pounds): 123 General Appearance: no apparent distress Neck: normal alignment Cardiovascular: normal rate Respiratory/Chest: decreased breath sounds Abdomen: normal bowel sounds Objective Current Medications Medications (Trade) Dose Ordered Sig/Debi Route PRN Reason Start Time Stop Time Status Last Admin Dose Admin Acetaminophen (Tylenol) 650 mg Q6H PRN GT Temperature >100.4 07/01/20 17:45 07/31/20 17:44 Aspirin (ASA) 81 mg DAILY GT 06/28/20 09:00 07/17/20 08:59 07/03/20 08:30 Cefazolin Sodium 50 ml @ 100 mls/hr Q8HR@0100,0900,1700 IV 06/28/20 17:00 07/05/20 16:59 07/04/20 00:20 Dextrose (Dextrose 50%) 25 ml Q30M PRN IV Hypoglycemia 06/27/20 10:30 09/20/20 06:59 Dextrose (Dextrose 50%) 50 ml Q30M PRN IV Hypoglycemia 06/27/20 10:30 09/20/20 06:59 Famotidine (Pepcid) 20 mg BID GT 06/27/20 18:00 09/01/20 17:59 07/03/20 17:31 Heparin Sodium (Porcine) (Heparin 5000 units/ml) 5,000 units EVERY 12 HOURS SUBQ 06/27/20 21:00 07/17/20 08:59 07/03/20 20:19 Insulin Aspart (NovoLOG) Q6HR SUBQ 06/27/20 12:00 09/09/20 17:59 07/03/20 17:33 Insulin Detemir (Levemir) 15 units EVERY 12 HOURS SUBQ 07/01/20 09:00 09/09/20 20:59 07/03/20 20:21 Metoprolol Tartrate (Lopressor) 25 mg Q12HR GT 06/27/20 21:00 09/20/20 08:59 07/03/20 20:18 Midodrine (Pro-Amatine) 2.5 mg TIDPRN PRN GT blood pressure below 100 sbp 06/27/20 11:00 09/11/20 10:59 Vancomycin HCl (Firvanq) 125 mg FOUR TIMES A DAY GT 06/28/20 13:00 07/08/20 12:59 07/03/20 20:18 Assessment/Plan Problem List: (1) Hypernatremia ICD Codes: E87.0 - Hyperosmolality and hypernatremia SNOMED: 563482327 (2) Feeding by G-tube ICD Codes: Z93.1 - Gastrostomy status SNOMED: 197509774, 531197612, 872930044 (3) Diabetes mellitus ICD Codes: E11.9 - Type 2 diabetes mellitus without complications SNOMED: 46391821 (4) History of CVA (cerebrovascular accident) ICD Codes: Z86.73 - Personal history of transient ischemic attack (TIA), and cerebral infarction without residual deficits SNOMED: 933397904 (5) Parkinson disease ICD Codes: G20 - Parkinson's disease SNOMED: 02811519 Status: stable, unchanged Assessment/Plan: reduce Levemir to 10 units bid continue Novolog sliding scale high dose every 6 hours Gregory Pastrana MD Jul 04, 2020 06:47
--- NOTE | 2020-07-04 07:34 | NUR ---
HAND-OFF: Report given to JOHNNY Roldan.
[2020-07-04 07:59] LABS: BASOPHILS % (AUTO) 0.9 % (0.0-2.0); EOSINOPHILS % (AUTO) 1.4 % (0.0-3.0); HEMATOCRIT 37.6 % (42.0-52.0); HEMOGLOBIN 11.4 G/DL (14.2-18.0); LYMPHOCYTES % (AUTO) 30.6 % (20.0-45.0); MEAN CORPUSCULAR VOLUME 94 FL (80-99); MONOCYTES % (AUTO) 5.3 % (1.0-10.0); NEUTROPHILS % (AUTO) 61.8 % (45.0-75.0); PLATELET COUNT 598 K/UL (150-450); RED BLOOD COUNT 4.01 M/UL (4.70-6.10); RED CELL DISTRIBUTION WIDTH 16.2 % (11.6-14.8); WHITE BLOOD COUNT 9.8 K/UL (4.8-10.8)
[2020-07-04 08:00] VITALS: BP 110/65
--- NOTE | 2020-07-04 08:08 | NUR ---
NURSE NOTES: Report received from Rossana TURNER. Patient seen on rounds, aphasic but able to follow simple commands. Not signs of distress or pain. Gtube patent and infusing Glucerna 1.5 @50ml/hr. No residuals reported overnight. HOB at 45 degrees. Adams cath secured and draining. Dressing noted over sacral area. PIV on right forearm patent and intact. Bed low and locked, siderails up x2, call light placed within reach, will continue to monitor.
[2020-07-04 08:36] LABS: ALANINE AMINOTRANSFERASE 13 U/L (12-78); ALBUMIN 2.2 G/DL (3.4-5.0); ALBUMIN/GLOBULIN RATIO 0.4 (1.0-2.7); ALKALINE PHOSPHATASE 203 U/L (46-116); ANION GAP 11 mmol/L (5-15); ASPARTATE AMINO TRANSFERASE 22 U/L (15-37); BILIRUBIN,TOTAL 0.2 MG/DL (0.2-1.0); BLOOD UREA NITROGEN 31 mg/dL (7-18); CALCIUM 9.2 MG/DL (8.5-10.1); CARBON DIOXIDE 28 MMOL/L (21-32); CHLORIDE 111 MMOL/L (98-107); PHOSPHORUS 3.6 MG/DL (2.5-4.9); SODIUM 150 MMOL/L (136-145)
[2020-07-04] MEDS: Levemir Flexpen SUBQ SCH ×2 (09:00→20:34)
[2020-07-04] MEDS: Vancomycin oral 125mg/2.5ml GT SCH ×4 (09:07→20:17)
[2020-07-04] MEDS: Aspirin Baby 81mg GT SCH (09:07)
[2020-07-04] MEDS: Heparin 5000 units/ml inj SUBQ SCH ×2 (09:08→20:18)
--- NOTE | 2020-07-04 09:52 | Surgery Progress Note ---
Surgery Progress Note Subjective Symptoms: improved Additional Comments no acute events on air mattress mckinney in place tf at 50cc comfortable Objective Last 24 Hour Vital Signs Date Time Temp Pulse Resp B/P (MAP) Pulse Ox O2 Delivery O2 Flow Rate FiO2 07/04/20 09:07 88 110/65 07/04/20 08:00 97.4 88 20 110/65 (80) 99 07/04/20 04:00 97.5 90 22 108/61 (77) 100 07/04/20 00:00 96.8 101 22 96/59 (71) 100 07/03/20 21:43 Room Air 07/03/20 20:18 114 103/60 07/03/20 20:00 97.0 107 22 120/64 (82) 100 07/03/20 16:00 96.8 114 20 103/60 (74) 100 07/03/20 12:00 96.9 109 17 94/57 (69) 99 I&O Intake and Output 07/03/20 07/04/20 19:00 07:00 Intake Total 450 ml 570 ml Output Total 800 ml 600 ml Balance -350 ml -30 ml Free Water 250 ml 120 ml Tube Feeding 200 ml 450 ml Output Urine Total 800 ml 600 ml # Bowel Movements 2 2 Dressing: saturated Cardiovascular: RSR Respiratory: clear Abdomen: soft, non-tender, present bowel sounds Extremities: no edema, no tenderness, no cyanosis Laboratory Tests Test 07/04/20 05:49 White Blood Count 9.8 K/UL (4.8-10.8) Red Blood Count 4.01 M/UL (4.70-6.10) L Hemoglobin 11.4 G/DL (14.2-18.0) L Hematocrit 37.6 % (42.0-52.0) L Mean Corpuscular Volume 94 FL (80-99) Mean Corpuscular Hemoglobin 28.5 PG (27.0-31.0) Mean Corpuscular Hemoglobin Concent 30.3 G/DL (32.0-36.0) L Red Cell Distribution Width 16.2 % (11.6-14.8) H Platelet Count 598 K/UL (150-450) H Mean Platelet Volume 7.6 FL (6.5-10.1) Neutrophils (%) (Auto) 61.8 % (45.0-75.0) Lymphocytes (%) (Auto) 30.6 % (20.0-45.0) Monocytes (%) (Auto) 5.3 % (1.0-10.0) Eosinophils (%) (Auto) 1.4 % (0.0-3.0) Basophils (%) (Auto) 0.9 % (0.0-2.0) Erythrocyte Sedimentation Rate 50 MM/HR (0-20) H Sodium Level 150 MMOL/L (136-145) H Potassium Level 4.0 MMOL/L (3.5-5.1) Chloride Level 111 MMOL/L (98-107) H Carbon Dioxide Level 28 MMOL/L (21-32) Anion Gap 11 mmol/L (5-15) Blood Urea Nitrogen 31 mg/dL (7-18) H Creatinine 1.0 MG/DL (0.55-1.30) Estimat Glomerular Filtration Rate > 60 mL/min (>60) Glucose Level 124 MG/DL (74-106) H Calcium Level 9.2 MG/DL (8.5-10.1) Phosphorus Level 3.6 MG/DL (2.5-4.9) Magnesium Level 2.5 MG/DL (1.8-2.4) H Total Bilirubin 0.2 MG/DL (0.2-1.0) Aspartate Amino Transf (AST/SGOT) 22 U/L (15-37) Alanine Aminotransferase (ALT/SGPT) 13 U/L (12-78) Alkaline Phosphatase 203 U/L (46-116) H C-Reactive Protein, Quantitative 8.9 mg/dL (0.00-0.90) H Total Protein 8.3 G/DL (6.4-8.2) H Albumin 2.2 G/DL (3.4-5.0) L Globulin 6.1 g/dL Albumin/Globulin Ratio 0.4 (1.0-2.7) L Plan Problems: (1) Hypernatremia (2) Dehydration (3) Hip fracture, left (4) Diabetes mellitus (5) History of hypertension (6) Severe protein-calorie malnutrition Assessment & Plan: DAILY ESTIMATED NEEDS: Needs based on Sepsis, DM/ 54kg 30-40 kcals/kg 4990-3393 total kcals 1.25-2 g protein/kg 68-108 g total protein 25-35ml/kcal mL/kg 4692-0392 total fluid mLs NUTRITION DIAGNOSIS: * Swallowing difficulty R/T dysphagia, as evidenced by Pt is GT dep. (CURRENT TF: Glucerna 1.5 @ 30ml/hr x 24 hrs) ENTERAL NUTRITION RECOMMENDATIONS: Glucerna 1.5 @ 60ml/hr x 20 hrs to provide 1200ml, 1800kcal, 99g prot, 911ml free water, 160g carbs * Rec to INCREASE TF GOAL to 60ml/hr for 20 hrs * HOB over 30 degrees, increased water flushes * TF at goal meets 100% est needs. -------- ADDITIONAL RECOMMENDATIONS: * Calibrated bedscale wt for accurate CBW * Monitor lytes daily w/ TF, replete as needed * Pt may require increase in insulin regimen for improved BG W/ continuous TF infusion * Wound healing: DOMENICA BID, F/up w/ WC eval . (7) Acute encephalopathy (8) Pressure Ulcer Of Sacral Region, Unstageable Assessment & Plan: Pt presented on admission with purple and indurated area at Sacrococcygeal at previously compromised site(L)7cm x (W)3cm.Surrounding Hyperpigmentation at Sacrum. Non-Blanching erythema without fluctuance R heel. Non-Blanching erythema with delineated margins L heel (L)4.5cm x (W)5.5cm. L Heel is boggy . Tx.Plan: Apply Moisture Barrier Paste to Sacrum. Cover with Optifoam drsgs. Change every 3 days and prn. Apply Cavilon Skin Barrier to R and L trochanter. Cover each site with Optifoam drsgs. Change every 7 days and prn. Apply Cavilon Skin Barrier to each heel and malleoli. Cover each site with Opti foam drsgs. Change every 7 days and prn. Reposition at least every 2hours or as tolerated. Off-load heels with pillow. improving cont current care tube site okay (9) Feeding by G-tube (10) Abdominal distention (11) Multiple drug resistant organism (MDRO) culture positive (12) Sepsis (13) History of CVA (cerebrovascular accident) (14) Parkinson disease (15) Staphylococcus aureus bacteremia Assessment & Plan: repeat blood cultures negative on abx unlikely source of bacteremia from wounds. will monitor cont local wound care improving leukocytosis James Breen 21, 2020 09:52
--- NOTE | 2020-07-04 10:50 | Infectious Diseases Prog Note ---
Assessment/Plan 79yo M with: COVID19 neg (06/01 rapid COVID PCR neg) Sespsis, recurrent MSSA bacteremia- - ?from PNA- low grade, no vegetations on 2d echo- .endocarditis cannot be excluded UTI, recurrent Probable PNA -06/29 CT c/abd/p w/ : Patchy opacities in the left lower lobe which may be related to subsegmental atelectasis versus developing pneumonia. Indwelling Adams catheter. Bladder wall thickening cystitis not excluded. Mild distention of the bladder despite the Adams catheter. Markedly enlarged and heterogeneous prostate which may be on the basis of BPH. Nonobstructing left renal stone. Marked thickening of the wall of the rectum and distal sigmoid colon suggesting a proctitis. Interval decrease in rectal stool burden. Moderate stool burden in the remainder of the upstream colon. Sacral decubitus ulcer. No organized/drai nable subcutaneous fluid collection noted in this region. -06/27 Bcx Neg -06/23 Bcx Neg 2d echo no vegetations seen -06/21 rapid COVID PCR neg u/a wbc 5-10,nit neg, leuk +3; ucx >100k ESBL P.mirabilis Bx 12/15 MSSA CXR No acute process. Cdiff colitis -06/27 Cdif toxin a/b + Fever, recurrent; SP Leukocytosis, recurrent; SP KELLY, improving UTI, sp rx 06/01 UA w/ pyuria, UCx + P Mirabilis ESBL 06/01 BCx Neg 06/01 CXR: No acute process COVID rapid test neg H/o ESBL Proteus in UCx in Oct 2019 Renal US w/ BL cysts PMH: DM2 Parkinson's dementia Bedridden G-tube Plan: PO Vancomycin # 7/10-14 for cdiff Ancef # 7 (abx d 14) for MSSA bactremia 06/27 SP Ertapenem #4, IV Vancomycin #7 06/24 SP MEropenem #4 06/10 SP audra #8 06/02 SP erta #1 06/01 SP cefepime, vanco, flagyl x1 in ED Monitor CBC/BMP Recomended ELMO- but unable to obtained consent D/w RN Thank you for this consult. [facility] will continue to follow. Subjective Allergies: Coded Allergies: No Known Allergies (Unverified , 08/27/19) afebrile at RA no leukocytosis Objective Last 24 Hour Vital Signs Date Time Temp Pulse Resp B/P (MAP) Pulse Ox O2 Delivery O2 Flow Rate FiO2 07/04/20 09:07 88 110/65 07/04/20 09:00 Room Air 07/04/20 08:00 97.4 88 20 110/65 (80) 99 07/04/20 04:00 97.5 90 22 108/61 (77) 100 07/04/20 00:00 96.8 101 22 96/59 (71) 100 07/03/20 21:43 Room Air 07/03/20 20:18 114 103/60 07/03/20 20:00 97.0 107 22 120/64 (82) 100 07/03/20 16:00 96.8 114 20 103/60 (74) 100 07/03/20 12:00 96.9 109 17 94/57 (69) 99 Height (Feet): 5 Height (Inches): 5.00 Weight (Pounds): 123 GENERAL: no apparent distress. CHEST: Lungs are clear to auscultation bilaterally without wheezes or rales. CARDIOVASCULAR: regular rhythm. S1, S2 are normal without murmurs, rubs, or gallops. ABDOMEN: Soft, nontender, and nondistended. Positive bowel sounds. No evidence of hepatosplenomegaly. EXTREMITIES: Negative for clubbing, cyanosis, or edema. Laboratory Tests Test 07/04/20 05:49 White Blood Count 9.8 K/UL (4.8-10.8) Red Blood Count 4.01 M/UL (4.70-6.10) L Hemoglobin 11.4 G/DL (14.2-18.0) L Hematocrit 37.6 % (42.0-52.0) L Mean Corpuscular Volume 94 FL (80-99) Mean Corpuscular Hemoglobin 28.5 PG (27.0-31.0) Mean Corpuscular Hemoglobin Concent 30.3 G/DL (32.0-36.0) L Red Cell Distribution Width 16.2 % (11.6-14.8) H Platelet Count 598 K/UL (150-450) H Mean Platelet Volume 7.6 FL (6.5-10.1) Neutrophils (%) (Auto) 61.8 % (45.0-75.0) Lymphocytes (%) (Auto) 30.6 % (20.0-45.0) Monocytes (%) (Auto) 5.3 % (1.0-10.0) Eosinophils (%) (Auto) 1.4 % (0.0-3.0) Basophils (%) (Auto) 0.9 % (0.0-2.0) Erythrocyte Sedimentation Rate 50 MM/HR (0-20) H Sodium Level 150 MMOL/L (136-145) H Potassium Level 4.0 MMOL/L (3.5-5.1) Chloride Level 111 MMOL/L (98-107) H Carbon Dioxide Level 28 MMOL/L (21-32) Anion Gap 11 mmol/L (5-15) Blood Urea Nitrogen 31 mg/dL (7-18) H Creatinine 1.0 MG/DL (0.55-1.30) Estimat Glomerular Filtration Rate > 60 mL/min (>60) Glucose Level 124 MG/DL (74-106) H Calcium Level 9.2 MG/DL (8.5-10.1) Phosphorus Level 3.6 MG/DL (2.5-4.9) Magnesium Level 2.5 MG/DL (1.8-2.4) H Total Bilirubin 0.2 MG/DL (0.2-1.0) Aspartate Amino Transf (AST/SGOT) 22 U/L (15-37) Alanine Aminotransferase (ALT/SGPT) 13 U/L (12-78) Alkaline Phosphatase 203 U/L (46-116) H C-Reactive Protein, Quantitative 8.9 mg/dL (0.00-0.90) H Total Protein 8.3 G/DL (6.4-8.2) H Albumin 2.2 G/DL (3.4-5.0) L Globulin 6.1 g/dL Albumin/Globulin Ratio 0.4 (1.0-2.7) L Current Medications Medications (Trade) Dose Ordered Sig/Debi Route PRN Reason Start Time Stop Time Status Last Admin Dose Admin Acetaminophen (Tylenol) 650 mg Q6H PRN GT Temperature >100.4 07/01/20 17:45 07/31/20 17:44 Aspirin (ASA) 81 mg DAILY GT 06/28/20 09:00 07/17/20 08:59 07/04/20 09:07 Cefazolin Sodium 50 ml @ 100 mls/hr Q8HR@0100,0900,1700 IV 06/28/20 17:00 07/05/20 16:59 07/04/20 09:07 Dextrose (Dextrose 50%) 25 ml Q30M PRN IV Hypoglycemia 06/27/20 10:30 09/20/20 06:59 Dextrose (Dextrose 50%) 50 ml Q30M PRN IV Hypoglycemia 06/27/20 10:30 09/20/20 06:59 Famotidine (Pepcid) 20 mg BID GT 06/27/20 18:00 09/01/20 17:59 07/04/20 09:09 Heparin Sodium (Porcine) (Heparin 5000 units/ml) 5,000 units EVERY 12 HOURS SUBQ 06/27/20 21:00 07/17/20 08:59 07/04/20 09:08 Insulin Aspart (NovoLOG) Q6HR SUBQ 06/27/20 12:00 09/09/20 17:59 07/03/20 17:33 Insulin Detemir (Levemir) 10 units EVERY 12 HOURS SUBQ 07/04/20 09:00 09/09/20 20:59 Metoprolol Tartrate (Lopressor) 25 mg Q12HR GT 06/27/20 21:00 09/20/20 08:59 07/04/20 09:07 Midodrine (Pro-Amatine) 2.5 mg TIDPRN PRN GT blood pressure below 100 sbp 06/27/20 11:00 09/11/20 10:59 Vancomycin HCl (Firvanq) 125 mg FOUR TIMES A DAY GT 06/28/20 13:00 07/08/20 12:59 07/04/20 09:07 Blaire Greenwood M.D. Jul 04, 2020 10:49
[2020-07-04 12:00] VITALS: BP 103/64
--- NOTE | 2020-07-04 12:31 | Pulmonology Progress Note ---
Subjective ROS Limited/Unobtainable: Yes Constitutional: Reports: no symptoms, anorexia HEENT: Repors: no symptoms Respiratory: Reports: no symptoms Cardiovascular: Reports: no symptoms Allergies: Coded Allergies: No Known Allergies (Unverified , 08/27/19) All Systems: reviewed and negative except above Objective Last 24 Hour Vital Signs Date Time Temp Pulse Resp B/P (MAP) Pulse Ox O2 Delivery O2 Flow Rate FiO2 07/04/20 12:00 97.0 83 19 103/64 (77) 98 07/04/20 09:07 88 110/65 07/04/20 09:00 Room Air 07/04/20 08:00 97.4 88 20 110/65 (80) 99 07/04/20 04:00 97.5 90 22 108/61 (77) 100 07/04/20 00:00 96.8 101 22 96/59 (71) 100 07/03/20 21:43 Room Air 07/03/20 20:18 114 103/60 07/03/20 20:00 97.0 107 22 120/64 (82) 100 07/03/20 16:00 96.8 114 20 103/60 (74) 100 Intake and Output 07/03/20 07/04/20 19:00 07:00 Intake Total 450 ml 570 ml Output Total 800 ml 600 ml Balance -350 ml -30 ml Free Water 250 ml 120 ml Tube Feeding 200 ml 450 ml Output Urine Total 800 ml 600 ml # Bowel Movements 2 2 General Appearance: cachetic HEENT: normocephalic, atraumatic Respiratory: chest wall non-tender, normal breath sounds Cardiovascular: normal peripheral pulses, normal rate, JVD Abdomen: normal bowel sounds, hyperactive bowel sounds Genitourinary: normal external genitalia Extremities: no clubbing Skin: no lesions 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: 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 grossly normal Lymphatic: no neck adenopathy Laboratory Tests 07/04/20 05:49: White Blood Count 9.8, Red Blood Count 4.01L, Hemoglobin 11.4L, Hematocrit 37.6L , Mean Corpuscular Volume 94, Mean Corpuscular Hemoglobin 28.5, Mean Corpuscular Hemoglobin Concent 30.3L, Red Cell Distribution Width 16.2H, Platelet Count 598H , Mean Platelet Volume 7.6, Neutrophils (%) (Auto) 61.8, Lymphocytes (%) (Auto) 30.6, Monocytes (%) (Auto) 5.3, Eosinophils (%) (Auto) 1.4, Basophils (%) (Auto) 0.9, Erythrocyte Sedimentation Rate 50H, Sodium Level 150H, Potassium Level 4.0, Chloride Level 111H, Carbon Dioxide Level 28, Anion Gap 11, Blood Urea Nitrogen 31H, Creatinine 1.0, Estimat Glomerular Filtration Rate > 60, Glucose Level 124H , Calcium Level 9.2, Phosphorus Level 3.6, Magnesium Level 2.5H, Total Bilirubin 0.2, Aspartate Amino Transf (AST/SGOT) 22, Alanine Aminotransferase (ALT/SGPT) 13, Alkaline Phosphatase 203H, C-Reactive Protein, Quantitative 8.9H, Total Pro tein 8.3H, Albumin 2.2L, Globulin 6.1, Albumin/Globulin Ratio 0.4L Current Medications Medications (Trade) Dose Ordered Sig/Debi Route PRN Reason Start Time Stop Time Status Last Admin Dose Admin Acetaminophen (Tylenol) 650 mg Q6H PRN GT Temperature >100.4 07/01/20 17:45 07/31/20 17:44 Aspirin (ASA) 81 mg DAILY GT 06/28/20 09:00 07/17/20 08:59 07/04/20 09:07 Cefazolin Sodium 50 ml @ 100 mls/hr Q8HR@0100,0900,1700 IV 06/28/20 17:00 07/05/20 16:59 07/04/20 09:07 Dextrose (Dextrose 50%) 25 ml Q30M PRN IV Hypoglycemia 06/27/20 10:30 09/20/20 06:59 Dextrose (Dextrose 50%) 50 ml Q30M PRN IV Hypoglycemia 06/27/20 10:30 09/20/20 06:59 Famotidine (Pepcid) 20 mg BID GT 06/27/20 18:00 09/01/20 17:59 07/04/20 09:09 Heparin Sodium (Porcine) (Heparin 5000 units/ml) 5,000 units EVERY 12 HOURS SUBQ 06/27/20 21:00 07/17/20 08:59 07/04/20 09:08 Insulin Aspart (NovoLOG) Q6HR SUBQ 06/27/20 12:00 09/09/20 17:59 07/04/20 12:19 Insulin Detemir (Levemir) 10 units EVERY 12 HOURS SUBQ 07/04/20 09:00 09/09/20 20:59 Metoprolol Tartrate (Lopressor) 25 mg Q12HR GT 06/27/20 21:00 09/20/20 08:59 07/04/20 09:07 Midodrine (Pro-Amatine) 2.5 mg TIDPRN PRN GT blood pressure below 100 sbp 06/27/20 11:00 09/11/20 10:59 Vancomycin HCl (Firvanq) 125 mg FOUR TIMES A DAY GT 06/28/20 13:00 07/08/20 12:59 07/04/20 12:16 Assessment/Plan Problems: (1) Clostridium difficile colitis (2) Staphylococcus aureus bacteremia (3) Sepsis (4) Multiple drug resistant organism (MDRO) culture positive (5) Hypernatremia (6) History of CVA (cerebrovascular accident) (7) History of hypertension (8) Parkinson disease (9) Severe protein-calorie malnutrition (10) Feeding by G-tube (11) Diabetes mellitus Assessment/Plan Na still high, start on d5w 100 cc/hour , check labs in am. wbc is normal today C-diff positive Na is still high still low grade temp repeat all cultures , Urine has proteus,,MDR COVID Negative sliding scale all reviewed, symptomatic treatment dvt prophylaxis Latanya Mckeon MD Jul 04, 2020 12:31
--- NOTE | 2020-07-04 12:58 | Nephrology Progress Note ---
Assessment/Plan Problem List: (1) Hypernatremia (2) Sepsis (3) History of CVA (cerebrovascular accident) (4) Parkinson disease (5) Feeding by G-tube (6) Dehydration Assessment KELLY, resolving, serum creatinine of 1.9 now down to 1.2 Hypernatremia, dehydration, free water deficit Sepsis Diabetes mellitus [id number] GT feeding Severe protein calorie malnutrition History of CVA History of hypertension Parkinson's disease Plan July 04: Labs reviewed. Serum sodium rising again. 1 L D5W ordered. Continue the rest per consultants. July 03: Lab reviewed. Stable renal parameters. Continue per consultants. July 02: Labs reviewed. IV fluids discontinued. Electrolytes within normal range. July 01: Lab reviewed. Serum sodium lowering. Will decrease D5W to 50 cc an hour. Continue per consultants. Meds reviewed. Continue to monitor electrolytes and renal parameters. June 30: Lab reviewed. Serum sodium is lowering. Other electrolytes and renal parameters stable. Continue as is. June 29: Labs reviewed. Discussed with RN. Serum sodium lowering on D5W IV infusion. Patient due for CT scan of the abdomen today. Continue to monitor electrolytes. June 28: Lab reviewed. Discussed with RN. Serum sodium higher. Will start 150 cc an hour D5W. Patient off feeding waiting for a CT of the abdomen. Continue to monitor electrolytes. Try to keep the blood sugar in check. June 27: Lab reviewed. Urine sodium elevated. Renal parameters stable. Continue to administer free water for hypernatremia. June 26: Lab reviewed. Serum sodium higher. Will give D5W bolus. Continue to monitor electrolytes. June 24: Lab reviewed. Renal parameters stable. Will discontinue IV fluid. Continue her consultants. June 23: Labs reviewed. Medication list reviewed. Renal parameters stable. Blood sugar needs better control. Defer to PMD and mailer apprentice. June 22: Clinically stable. Labs reviewed. Blood sugar elevated. Renal parameters stable. Continue blood sugar management per mailer apprentice June 21: Patient is febrile today. Abnormal electrolytes addressed. Stable from renal standpoint of view. June 20: No chemistry panel done today. Stable from renal standpoint. Will order chemistry panel tomorrow June 19: Labs reviewed. Phosphorus supplement given. Stable from renal standpoint of view. June 18: Lab reviewed. Serum sodium lower. Creatinine 1.1. Continue current management. June 17: Lab reviewed. Sodium 160. Creatinine 1.3. Calcium lower at 9. Will continue D5W. June 16: Labs reviewed. Renal parameters stable. Serum calcium lowering. Serum sodium lowering. Serum creatinine 1.3. Another 1 L of D5W ordered. June 15: Lab reviewed. Serum sodium high. 1 L D5W given. Serum creatinine 1.4. Pamidronate given yesterday. Continue to monitor serum calcium. June 14: Lab reviewed. Serum calcium high corrected for low serum albumin. 60 mg pamidronate ID given. Continue to monitor renal parameters calcium and phosphorus. June 13: Lab reviewed. Medication list reviewed. Renal parameters stable. Will watch serum calcium and serum sodium. Chemistry panel tomorrow. June 12: Labs reviewed. Stable from renal standpoint of view. June 11: Labs reviewed. Stable renal parameters. June 10: Lab reviewed. Serum potassium normalized. Will give 1 L of D5W for high serum sodium. Continue per consultants. June 09: Labs reviewed. Discussed with RN. Serum potassium elevated. Suspect hemolysis. Will repeat serum potassium. DC all potassium supplements. June 08: Serum sodium higher. Will give 1 L of D5W. Renal parameters stable. Continue to monitor electrolytes. Continue per consultants. June 07: 1 bolus of D5W. Renal parameters stable. Serum sodium slightly high. Stable from renal standpoint of view. June 06: We will again discontinue the IV ordered. Stable from renal standpoint of view. Will start midodrine for low blood pressure. June 05: DC IV fluid. Potassium supplement given. Stable from renal standpoint to view. June 04: Potassium and magnesium supplement IV given, stable from renal standpoint of view. IV fluid D5W Monitor electrolytes Monitor renal parameters Hold blood pressure medication since blood pressure low Per orders, per consultants Subjective ROS Limited/Unobtainable: No Constitutional: Reports: malaise Objective Objective Last 24 Hour Vital Signs Date Time Temp Pulse Resp B/P (MAP) Pulse Ox O2 Delivery O2 Flow Rate FiO2 07/04/20 12:00 97.0 83 19 103/64 (77) 98 07/04/20 09:07 88 110/65 07/04/20 09:00 Room Air 07/04/20 08:00 97.4 88 20 110/65 (80) 99 07/04/20 04:00 97.5 90 22 108/61 (77) 100 07/04/20 00:00 96.8 101 22 96/59 (71) 100 07/03/20 21:43 Room Air 07/03/20 20:18 114 103/60 07/03/20 20:00 97.0 107 22 120/64 (82) 100 07/03/20 16:00 96.8 114 20 103/60 (74) 100 Intake and Output 07/03/20 07/04/20 19:00 07:00 Intake Total 450 ml 570 ml Output Total 800 ml 600 ml Balance -350 ml -30 ml Free Water 250 ml 120 ml Tube Feeding 200 ml 450 ml Output Urine Total 800 ml 600 ml # Bowel Movements 2 2 Current Medications Medications (Trade) Dose Ordered Sig/Debi Route PRN Reason Start Time Stop Time Status Last Admin Dose Admin Acetaminophen (Tylenol) 650 mg Q6H PRN GT Temperature >100.4 07/01/20 17:45 07/31/20 17:44 Aspirin (ASA) 81 mg DAILY GT 06/28/20 09:00 07/17/20 08:59 07/04/20 09:07 Cefazolin Sodium 50 ml @ 100 mls/hr Q8HR@0100,0900,1700 IV 06/28/20 17:00 07/05/20 16:59 07/04/20 09:07 Dextrose 1,000 ml @ 100 mls/hr Q10H IV 07/04/20 12:30 08/03/20 12:29 UNV Dextrose (Dextrose 50%) 25 ml Q30M PRN IV Hypoglycemia 06/27/20 10:30 09/20/20 06:59 Dextrose (Dextrose 50%) 50 ml Q30M PRN IV Hypoglycemia 06/27/20 10:30 09/20/20 06:59 Famotidine (Pepcid) 20 mg BID GT 06/27/20 18:00 09/01/20 17:59 07/04/20 09:09 Heparin Sodium (Porcine) (Heparin 5000 units/ml) 5,000 units EVERY 12 HOURS SUBQ 06/27/20 21:00 07/17/20 08:59 07/04/20 09:08 Insulin Aspart (NovoLOG) Q6HR SUBQ 06/27/20 12:00 09/09/20 17:59 07/04/20 12:19 Insulin Detemir (Levemir) 10 units EVERY 12 HOURS SUBQ 07/04/20 09:00 09/09/20 20:59 Metoprolol Tartrate (Lopressor) 25 mg Q12HR GT 06/27/20 21:00 09/20/20 08:59 07/04/20 09:07 Midodrine (Pro-Amatine) 2.5 mg TIDPRN PRN GT blood pressure below 100 sbp 06/27/20 11:00 09/11/20 10:59 Vancomycin HCl (Firvanq) 125 mg FOUR TIMES A DAY GT 06/28/20 13:00 07/08/20 12:59 07/04/20 12:16 Laboratory Tests 07/04/20 05:49: White Blood Count 9.8, Red Blood Count 4.01L, Hemoglobin 11.4L, Hematocrit 37.6L , Mean Corpuscular Volume 94, Mean Corpuscular Hemoglobin 28.5, Mean Corpuscular Hemoglobin Concent 30.3L, Red Cell Distribution Width 16.2H, Platelet Count 598H , Mean Platelet Volume 7.6, Neutrophils (%) (Auto) 61.8, Lymphocytes (%) (Auto) 30.6, Monocytes (%) (Auto) 5.3, Eosinophils (%) (Auto) 1.4, Basophils (%) (Auto) 0.9, Erythrocyte Sedimentation Rate 50H, Sodium Level 150H, Potassium Level 4.0, Chloride Level 111H, Carbon Dioxide Level 28, Anion Gap 11, Blood Urea Nitrogen 31H, Creatinine 1.0, Estimat Glomerular Filtration Rate > 60, Glucose Level 124H , Calcium Level 9.2, Phosphorus Level 3.6, Magnesium Level 2.5H, Total Bilirubin 0.2, Aspartate Amino Transf (AST/SGOT) 22, Alanine Aminotransferase (ALT/SGPT) 13, Alkaline Phosphatase 203H, C-Reactive Protein, Quantitative 8.9H, Total Pro tein 8.3H, Albumin 2.2L, Globulin 6.1, Albumin/Globulin Ratio 0.4L Height (Feet): 5 Height (Inches): 5.00 Weight (Pounds): 123 General Appearance: no apparent distress, lethargic Cardiovascular: tachycardia Respiratory/Chest: decreased breath sounds Abdomen: soft, distended Objective No change Eddie Nelson MD Jul 04, 2020 12:58
--- NOTE | 2020-07-04 13:44 | Internal Med Progress Note ---
Subjective Date of Service: Jul 04, 2020 Physician Name JordynTello Attending Physician Cirilo Rome MD Current Medications Medications (Trade) Dose Ordered Sig/Debi Route PRN Reason Start Time Stop Time Status Last Admin Dose Admin Acetaminophen (Tylenol) 650 mg Q6H PRN GT Temperature >100.4 07/01/20 17:45 07/31/20 17:44 Aspirin (ASA) 81 mg DAILY GT 06/28/20 09:00 07/17/20 08:59 07/04/20 09:07 Cefazolin Sodium 50 ml @ 100 mls/hr Q8HR@0100,0900,1700 IV 06/28/20 17:00 07/05/20 16:59 07/04/20 09:07 Dextrose 1,000 ml @ 100 mls/hr Q10H ONCE IV 07/04/20 13:13 07/04/20 23:12 07/04/20 13:37 Dextrose (Dextrose 50%) 25 ml Q30M PRN IV Hypoglycemia 06/27/20 10:30 09/20/20 06:59 Dextrose (Dextrose 50%) 50 ml Q30M PRN IV Hypoglycemia 06/27/20 10:30 09/20/20 06:59 Famotidine (Pepcid) 20 mg BID GT 06/27/20 18:00 09/01/20 17:59 07/04/20 09:09 Heparin Sodium (Porcine) (Heparin 5000 units/ml) 5,000 units EVERY 12 HOURS SUBQ 06/27/20 21:00 07/17/20 08:59 07/04/20 09:08 Insulin Aspart (NovoLOG) Q6HR SUBQ 06/27/20 12:00 09/09/20 17:59 07/04/20 12:19 Insulin Detemir (Levemir) 10 units EVERY 12 HOURS SUBQ 07/04/20 09:00 09/09/20 20:59 Metoprolol Tartrate (Lopressor) 25 mg Q12HR GT 06/27/20 21:00 09/20/20 08:59 07/04/20 09:07 Midodrine (Pro-Amatine) 2.5 mg TIDPRN PRN GT blood pressure below 100 sbp 06/27/20 11:00 09/11/20 10:59 Vancomycin HCl (Firvanq) 125 mg FOUR TIMES A DAY GT 06/28/20 13:00 07/08/20 12:59 07/04/20 12:16 Allergies: Coded Allergies: No Known Allergies (Unverified , 08/27/19) ROS Limited/Unobtainable: Yes Subjective 79 YO M admitted with hyperglycemia and hypernatremia. Now UTI. Cover for Int Dusty-Dr Rome Objective Last Vital Signs Date Time Temp Pulse Resp B/P (MAP) Pulse Ox O2 Delivery O2 Flow Rate FiO2 07/04/20 12:00 97.0 83 19 103/64 (77) 98 07/04/20 09:00 Room Air Laboratory Tests Test 07/04/20 05:49 White Blood Count 9.8 K/UL (4.8-10.8) Red Blood Count 4.01 M/UL (4.70-6.10) L Hemoglobin 11.4 G/DL (14.2-18.0) L Hematocrit 37.6 % (42.0-52.0) L Mean Corpuscular Volume 94 FL (80-99) Mean Corpuscular Hemoglobin 28.5 PG (27.0-31.0) Mean Corpuscular Hemoglobin Concent 30.3 G/DL (32.0-36.0) L Red Cell Distribution Width 16.2 % (11.6-14.8) H Platelet Count 598 K/UL (150-450) H Mean Platelet Volume 7.6 FL (6.5-10.1) Neutrophils (%) (Auto) 61.8 % (45.0-75.0) Lymphocytes (%) (Auto) 30.6 % (20.0-45.0) Monocytes (%) (Auto) 5.3 % (1.0-10.0) Eosinophils (%) (Auto) 1.4 % (0.0-3.0) Basophils (%) (Auto) 0.9 % (0.0-2.0) Erythrocyte Sedimentation Rate 50 MM/HR (0-20) H Sodium Level 150 MMOL/L (136-145) H Potassium Level 4.0 MMOL/L (3.5-5.1) Chloride Level 111 MMOL/L (98-107) H Carbon Dioxide Level 28 MMOL/L (21-32) Anion Gap 11 mmol/L (5-15) Blood Urea Nitrogen 31 mg/dL (7-18) H Creatinine 1.0 MG/DL (0.55-1.30) Estimat Glomerular Filtration Rate > 60 mL/min (>60) Glucose Level 124 MG/DL (74-106) H Calcium Level 9.2 MG/DL (8.5-10.1) Phosphorus Level 3.6 MG/DL (2.5-4.9) Magnesium Level 2.5 MG/DL (1.8-2.4) H Total Bilirubin 0.2 MG/DL (0.2-1.0) Aspartate Amino Transf (AST/SGOT) 22 U/L (15-37) Alanine Aminotransferase (ALT/SGPT) 13 U/L (12-78) Alkaline Phosphatase 203 U/L (46-116) H C-Reactive Protein, Quantitative 8.9 mg/dL (0.00-0.90) H Total Protein 8.3 G/DL (6.4-8.2) H Albumin 2.2 G/DL (3.4-5.0) L Globulin 6.1 g/dL Albumin/Globulin Ratio 0.4 (1.0-2.7) L Intake and Output 07/03/20 07/04/20 19:00 07:00 Intake Total 450 ml 570 ml Output Total 800 ml 600 ml Balance -350 ml -30 ml Free Water 250 ml 120 ml Tube Feeding 200 ml 450 ml Output Urine Total 800 ml 600 ml # Bowel Movements 2 2 Objective PHYSICAL EXAMINATION: GENERAL: The patient is a well-developed, well-nourished, thin-appearing, male, in no apparent distress. HEENT: Eyes, pupils equal and responsive to light and accommodation. Extraocular movements are intact. NECK: Supple without lymphadenopathy. CHEST: Lungs are clear to auscultation bilaterally without wheezes or rales. CARDIOVASCULAR: Slightly tachycardic, regular rhythm. S1, S2 are normal without murmurs, rubs, or gallops. ABDOMEN: Soft, nontender, and nondistended. Positive bowel sounds. No evidence of hepatosplenomegaly. Currently, no rebound or guarding noted. EXTREMITIES: Negative for clubbing, cyanosis, or edema. RECTAL: Not performed. GENITAL: Not performed. NEUROLOGIC: Cranial nerves II through XII are grossly intact without focal deficits. Assessment/Plan Assessment/Plan ASSESSMENT: This is a 79-year-old male with: 1. Hyperglycemia. 2. Hypernatremia. 3. Urinary tract infection=MDR proteus. 4. Diabetes type 2. 5. Hypertension. 6. Hypercholesterolemia. 7. Dysphagia. 8. Parkinson disease. 9. Ulcerative proctitis. 10. Protein-calorie malnutrition. 11. History of sacral decubitus ulcer stage IV. 12. Benign prostatic hypertrophy. 13. Gastroesophageal reflux disease. 14. Metabolic encephalopathy. 15. History of left hip fracture. 16. sepsis=staph aureus TREATMENT: 1. Hyperglycemia/diabetes. The patient has been placed on a protocol using NovoLog sliding scale. The patient's blood sugars have been running in 300s. Hyperglycemia may be secondary to urinary tract infection. 2. Urinary tract infection. Urine culture =MDR proteus. ABX= ertapenem and vancomycin results.ID=Dr Oliva 3. Hypertension. Continue amlodipine as above. 4. Hypercholesterolemia. Continue atorvastatin as above. 5. Dysphagia. The patient is status post PEG placement. 6. Parkinson disease. Continue amantadine as above. 7. Ulcerative proctitis. 8. Protein-calorie malnutrition. 9. Sacral decubitus ulcer stage IV. 10. Benign prostatic hypertrophy. Continue tamsulosin as above. 11. Gastroesophageal reflux disease. 12. Metabolic encephalopathy. 13. History of left hip fracture. 14. R/O endocarditis Tello Cobb MD Jul 04, 2020 13:43
[2020-07-04 16:00] VITALS: BP 120/68
--- NOTE | 2020-07-04 16:32 | Diagnostic Imaging Report ---
Indication: Dyspnea Technique: One view of the chest Comparison: 06/28/2020 Findings: Lungs and pleural spaces remain clear. The heart size is normal. No significant change. Impression: Negative
--- NOTE | 2020-07-04 17:05 | NUR ---
CASE MANAGEMENT:REVIEW SI;SEPSIS. BACTEREMIA. 97.5 90 22 120/68 97% ON RA NA 150 BUN 31 MAG 2.5 ALB 2.2 IS;IVF D5 BOLUS CEFAZOLIN IV Q8 VANCOMYCIN GT QID ASA GT QD LOPRESSOR GT Q12 PEPCID GT BID MED SURG STATUS DCP;FROM [facility]; ELMO TO R/O ENDOCARDITIS CONSENT NEEDED
--- NOTE | 2020-07-04 19:44 | NUR ---
NURSE NOTES: Received patient awake in bed, no s/s of acute distress, refuses to speak/respond at this time, able to follow simple commands. No IV access, charge nurse aware. Adams catheter in place, draining yellow liquid. G tube feeding noted, patient tolerating well. Bed low and locked, patient wearing non slip socks.
--- NOTE | 2020-07-04 19:59 | NUR ---
NURSE NOTES: PIV access dislodged. Attempted to reinsert x 3 nurses and with assistance of vein finder but unable to obtain IV access. Endorsed to next shift nurse.
[2020-07-04 20:00] VITALS: BP 106/67
--- NOTE | 2020-07-04 20:00 | NUR ---
NURSE HAND-OFF: Important Events on Shift: Na 150, D5W @ 100ml/hr x 1 liter pending IV access Patient Status: Stable Diet: GT feed Pending Orders: None Pending Results/Labs: AM labs Pending MD notification:N Latest Vital Signs: Temperature 97.4 , Pulse 88 , B/P 120 /68 , Respiratory Rate 19 , O2 SAT 97 , Room Air, O2 Flow Rate 3.0 . Vital Sign Comment: Latest Lane Fall Score: 55 Fall Risk: High Risk Safety Measures: Call light Within Reach, Bed Alarm Zone 1, Side Rails Side Rails x3, Bed position Low and Locked. Fall Precautions: Yellow Socks Yellow Gown Door Sign Report given to Rossana TURNER.
--- NOTE | 2020-07-04 20:07 | Cardiology Progress Note ---
Assessment/Plan Assessment/Plan bacteremia mssa penumonia dementia parkinsonism d/w dr goodson no emergent justification for ELMO per health care social worker: SW received a consult to locate the family. Pt opened his eyes but non-verbal. This SW was unable to obtain information from pt. SW spoke w/ Beth from [employer] [phone], stating that there is no family emergency contact listed. Pt has been a resident since September 2019. Per chart review, emergency contacts are Mamadou Warner (piano case and bench assembler) [phone]. SW attempted to call this number, incorrect number. SW spoke w/ pt's former watch case polisher from [employer], Kendell Emanuel [phone], confirmed that pt does not have a family member, but mosque friends only. in that ligt will dc ELMO for tomorrow as unable to obtain consent for gil procedure will need empric treatment for endocarditis if still remain a high liklihood fu blood cx are neg after 5 days Subjective ROS Limited/Unobtainable: Yes Objective Last 24 Hour Vital Signs Date Time Temp Pulse Resp B/P (MAP) Pulse Ox O2 Delivery O2 Flow Rate FiO2 07/04/20 16:00 97.4 88 19 120/68 (85) 97 07/04/20 12:00 97.0 83 19 103/64 (77) 98 07/04/20 09:07 88 110/65 07/04/20 09:00 Room Air 07/04/20 08:00 97.4 88 20 110/65 (80) 99 07/04/20 04:00 97.5 90 22 108/61 (77) 100 07/04/20 00:00 96.8 101 22 96/59 (71) 100 07/03/20 21:43 Room Air 07/03/20 20:18 114 103/60 General Appearance: no apparent distress Neck: supple Cardiovascular: normal rate Respiratory/Chest: lungs clear Extremities: no swelling Intake and Output 07/03/20 07/04/20 19:00 07:00 Intake Total 450 ml 570 ml Output Total 800 ml 600 ml Balance -350 ml -30 ml Free Water 250 ml 120 ml Tube Feeding 200 ml 450 ml Output Urine Total 800 ml 600 ml # Bowel Movements 2 2 Laboratory Tests Test 07/04/20 05:49 White Blood Count 9.8 K/UL (4.8-10.8) Red Blood Count 4.01 M/UL (4.70-6.10) L Hemoglobin 11.4 G/DL (14.2-18.0) L Hematocrit 37.6 % (42.0-52.0) L Mean Corpuscular Volume 94 FL (80-99) Mean Corpuscular Hemoglobin 28.5 PG (27.0-31.0) Mean Corpuscular Hemoglobin Concent 30.3 G/DL (32.0-36.0) L Red Cell Distribution Width 16.2 % (11.6-14.8) H Platelet Count 598 K/UL (150-450) H Mean Platelet Volume 7.6 FL (6.5-10.1) Neutrophils (%) (Auto) 61.8 % (45.0-75.0) Lymphocytes (%) (Auto) 30.6 % (20.0-45.0) Monocytes (%) (Auto) 5.3 % (1.0-10.0) Eosinophils (%) (Auto) 1.4 % (0.0-3.0) Basophils (%) (Auto) 0.9 % (0.0-2.0) Erythrocyte Sedimentation Rate 50 MM/HR (0-20) H Sodium Level 150 MMOL/L (136-145) H Potassium Level 4.0 MMOL/L (3.5-5.1) Chloride Level 111 MMOL/L (98-107) H Carbon Dioxide Level 28 MMOL/L (21-32) Anion Gap 11 mmol/L (5-15) Blood Urea Nitrogen 31 mg/dL (7-18) H Creatinine 1.0 MG/DL (0.55-1.30) Estimat Glomerular Filtration Rate > 60 mL/min (>60) Glucose Level 124 MG/DL (74-106) H Calcium Level 9.2 MG/DL (8.5-10.1) Phosphorus Level 3.6 MG/DL (2.5-4.9) Magnesium Level 2.5 MG/DL (1.8-2.4) H Total Bilirubin 0.2 MG/DL (0.2-1.0) Aspartate Amino Transf (AST/SGOT) 22 U/L (15-37) Alanine Aminotransferase (ALT/SGPT) 13 U/L (12-78) Alkaline Phosphatase 203 U/L (46-116) H C-Reactive Protein, Quantitative 8.9 mg/dL (0.00-0.90) H Total Protein 8.3 G/DL (6.4-8.2) H Albumin 2.2 G/DL (3.4-5.0) L Globulin 6.1 g/dL Albumin/Globulin Ratio 0.4 (1.0-2.7) L Mamadou Kelley MD Jul 04, 2020 20:07
[2020-07-05] VITALS: BP 104/70
[2020-07-05] MEDS: NovoLOG Insulin Flexpen SUBQ SCH ×4 (00:25→18:00)
[2020-07-05] MEDS: ceFAZolin 2gm/50ml Premix 50 ML IV SCH ×3 (01:00→17:52)
[2020-07-05 04:00] VITALS: BP 127/58
--- NOTE | 2020-07-05 05:07 | NUR ---
NURSE NOTES: Sacral dressing changed. Patient cleaned.
--- NOTE | 2020-07-05 06:29 | General Progress Note ---
Subjective ROS Limited/Unobtainable: Yes Allergies: Coded Allergies: No Known Allergies (Unverified , 08/27/19) Subjective events noted and interval notes reviewed glucose values are on the low normal side Levemir 10 units was held yesterday morning Item Value Date Time Bedside Blood Glucose 152 mg/dl H 07/05/20 0529 Bedside Blood Glucose 158 mg/dl H 07/05/20 0025 Bedside Blood Glucose 172 mg/dl H 07/04/20 2034 Bedside Blood Glucose 172 mg/dl H 07/04/20 1800 Bedside Blood Glucose 174 mg/dl H 07/04/20 1219 Bedside Blood Glucose 99 mg/dl 07/04/20 0900 Bedside Blood Glucose 99 mg/dl 07/04/20 0531 Bedside Blood Glucose 105 mg/dl 07/04/20 0021 Objective Last 24 Hour Vital Signs Date Time Temp Pulse Resp B/P (MAP) Pulse Ox O2 Delivery O2 Flow Rate FiO2 07/05/20 04:00 98.1 81 19 127/58 (81) 96 07/05/20 00:00 97.6 98 19 104/70 (81) 96 07/04/20 22:52 Room Air 07/04/20 20:17 88 120/68 07/04/20 20:00 97.9 95 19 106/67 (80) 96 07/04/20 16:00 97.4 88 19 120/68 (85) 97 07/04/20 12:00 97.0 83 19 103/64 (77) 98 07/04/20 09:07 88 110/65 07/04/20 09:00 Room Air 07/04/20 08:00 97.4 88 20 110/65 (80) 99 Intake and Output 07/04/20 07/05/20 19:00 07:00 Intake Total 50 ml 730 ml Output Total 800 ml 600 ml Balance -750 ml 130 ml Free Water 180 ml Tube Feeding 50 ml 550 ml Output Urine Total 800 ml 600 ml # Voids 1 # Bowel Movements 1 1 Laboratory Tests 07/05/20 05:20: White Blood Count [Pending], Red Blood Count [Pending], Hemoglobin [Pending], Hematocrit [Pending], Mean Corpuscular Volume [Pending], Mean Corpuscular Hemoglobin [Pending], Mean Corpuscular Hemoglobin Concent [Pending], Red Cell Distribution Width [Pending], Platelet Count [Pending], Mean Platelet Volume [Pending], Neutrophils (%) (Auto) [Pending], Lymphocytes (%) (Auto) [Pending], Monocytes (%) (Auto) [Pending], Eosinophils (%) (Auto) [Pending], Basophils (%) (Auto) [Pending], Sodium Level [Pending], Potassium Level [Pending], Chloride Level [Pending], Carbon Dioxide Level [Pending], Blood Urea Nitrogen [Pending], Creatinine [Pending], Estimat Glomerular Filtration Rate [Pending], Glucose Level [Pending], Calcium Level [Pending], Phosphorus Level [Pending], Magnesium Level [Pending], Total Bilirubin [Pending], Aspartate Amino Transf (AST/SGOT) [Pending], Alanine Aminotransferase (ALT/SGPT) [Pending], Alkaline Phosphatase [Pending], Total Protein [Pending], Albumin [Pending], Globulin [Pending] Height (Feet): 5 Height (Inches): 5.00 Weight (Pounds): 123 General Appearance: no apparent distress Neck: normal alignment Cardiovascular: normal rate Respiratory/Chest: decreased breath sounds Abdomen: normal bowel sounds Objective Current Medications Medications (Trade) Dose Ordered Sig/Debi Route PRN Reason Start Time Stop Time Status Last Admin Dose Admin Acetaminophen (Tylenol) 650 mg Q6H PRN GT Temperature >100.4 07/01/20 17:45 07/31/20 17:44 Aspirin (ASA) 81 mg DAILY GT 06/28/20 09:00 07/17/20 08:59 07/04/20 09:07 Cefazolin Sodium 50 ml @ 100 mls/hr Q8HR@0100,0900,1700 IV 06/28/20 17:00 07/05/20 16:59 07/05/20 01:00 Dextrose (Dextrose 50%) 25 ml Q30M PRN IV Hypoglycemia 06/27/20 10:30 09/20/20 06:59 Dextrose (Dextrose 50%) 50 ml Q30M PRN IV Hypoglycemia 06/27/20 10:30 09/20/20 06:59 Famotidine (Pepcid) 20 mg BID GT 06/27/20 18:00 09/01/20 17:59 07/04/20 17:36 Heparin Sodium (Porcine) (Heparin 5000 units/ml) 5,000 units EVERY 12 HOURS SUBQ 06/27/20 21:00 07/17/20 08:59 07/04/20 20:18 Insulin Aspart (NovoLOG) Q6HR SUBQ 06/27/20 12:00 09/09/20 17:59 07/05/20 05:28 Insulin Detemir (Levemir) 10 units EVERY 12 HOURS SUBQ 07/04/20 09:00 09/09/20 20:59 07/04/20 20:34 Metoprolol Tartrate (Lopressor) 25 mg Q12HR GT 06/27/20 21:00 09/20/20 08:59 07/04/20 20:17 Midodrine (Pro-Amatine) 2.5 mg TIDPRN PRN GT blood pressure below 100 sbp 06/27/20 11:00 09/11/20 10:59 Vancomycin HCl (Firvanq) 125 mg FOUR TIMES A DAY GT 06/28/20 13:00 07/08/20 12:59 07/04/20 20:17 Assessment/Plan Problem List: (1) Hypernatremia ICD Codes: E87.0 - Hyperosmolality and hypernatremia SNOMED: 267260807 (2) Feeding by G-tube ICD Codes: Z93.1 - Gastrostomy status SNOMED: 424723684, 059029679, [id number] (3) Diabetes mellitus ICD Codes: E11.9 - Type 2 diabetes mellitus without complications SNOMED: 49056511 (4) History of CVA (cerebrovascular accident) ICD Codes: Z86.73 - Personal history of transient ischemic attack (TIA), and cerebral infarction without residual deficits SNOMED: 253319354 (5) Parkinson disease ICD Codes: G20 - Parkinson's disease SNOMED: 84892126 Status: stable, unchanged Assessment/Plan: reduce Levemir to 8 units bid continue Novolog sliding scale high dose every 6 hours Gregory Pastrana MD Jul 05, 2020 06:29
[2020-07-05 06:57] LABS: BASOPHILS % (AUTO) 0.9 % (0.0-2.0); EOSINOPHILS % (AUTO) 1.9 % (0.0-3.0); HEMATOCRIT 33.6 % (42.0-52.0); HEMOGLOBIN 10.5 G/DL (14.2-18.0); LYMPHOCYTES % (AUTO) 38.7 % (20.0-45.0); MEAN CORPUSCULAR VOLUME 92 FL (80-99); MONOCYTES % (AUTO) 5.9 % (1.0-10.0); NEUTROPHILS % (AUTO) 52.7 % (45.0-75.0); PLATELET COUNT 588 K/UL (150-450); RED BLOOD COUNT 3.66 M/UL (4.70-6.10); RED CELL DISTRIBUTION WIDTH 16.1 % (11.6-14.8)
--- NOTE | 2020-07-05 07:30 | NUR ---
HAND-OFF: Report given to JOHNNY Joyce.
[2020-07-05 08:00] VITALS: BP 131/64
[2020-07-05] MEDS: Aspirin Baby 81mg GT SCH (08:52)
[2020-07-05] MEDS: Vancomycin oral 125mg/2.5ml GT SCH ×4 (08:52→21:06)
[2020-07-05] MEDS: Heparin 5000 units/ml inj SUBQ SCH ×2 (08:55→20:56)
[2020-07-05] MEDS: Levemir Flexpen SUBQ SCH ×2 (08:59→21:19)
[2020-07-05 09:00] LABS: ALANINE AMINOTRANSFERASE 19 U/L (12-78); ALBUMIN/GLOBULIN RATIO 0.3 (1.0-2.7); ALKALINE PHOSPHATASE 200 U/L (46-116); ANION GAP 12 mmol/L (5-15); ASPARTATE AMINO TRANSFERASE 34 U/L (15-37); BILIRUBIN,TOTAL 0.2 MG/DL (0.2-1.0); BLOOD UREA NITROGEN 29 mg/dL (7-18); CALCIUM 8.8 MG/DL (8.5-10.1); CARBON DIOXIDE 24 MMOL/L (21-32); CHLORIDE 110 MMOL/L (98-107); PHOSPHORUS 3.2 MG/DL (2.5-4.9); POTASSIUM 4.4 MMOL/L (3.5-5.1); SODIUM 146 MMOL/L (136-145)
[2020-07-05 12:00] VITALS: BP 114/66
--- NOTE | 2020-07-05 12:11 | NUR ---
RD ASSESSMENT & RECOMMENDATIONS SEE CARE ACTIVITY FOR COMPLETE ASSESSMENT DAILY ESTIMATED NEEDS: Needs based on Sepsis, DM/ 54kg 30-40 kcals/kg 9807-7014 total kcals 1.25-2 g protein/kg 68-108 g total protein 25-35ml/kcal mL/kg 6482-4722 total fluid mLs NUTRITION DIAGNOSIS: * Swallowing difficulty R/T dysphagia, as evidenced by Pt is GT dep. CURRENT TF:Glucerna 1.5 @ 50ml/hr x24 hrs ENTERAL NUTRITION RECOMMENDATIONS: Glucerna 1.5 @ 50ml/hr x 24 hrs to provide 1200ml, 1800kcal, 99g prot, 911ml free water * Maintain current TF meets 100% est needs * HOB over 30 degrees * Water flush per MD ADDITIONAL RECOMMENDATIONS: * Calibrated bedscale wt for accurate CBW * Monitor lytes daily w/ TF, replete as needed * Added d5 d/c'd, rec to increase H20 flush for elev BUN and Na. -> endo following, monitor BGs closely * Wound healing: add DOMENICA BID * Watch K w/ current TF, need to change TF-> K 5.3 on 06/18 -> now wnl .
--- NOTE | 2020-07-05 12:15 | Pulmonology Progress Note ---
Subjective ROS Limited/Unobtainable: Yes Constitutional: Reports: no symptoms, anorexia HEENT: Repors: no symptoms Respiratory: Reports: no symptoms Cardiovascular: Reports: no symptoms Allergies: Coded Allergies: No Known Allergies (Unverified , 08/27/19) All Systems: reviewed and negative except above Objective Last 24 Hour Vital Signs Date Time Temp Pulse Resp B/P (MAP) Pulse Ox O2 Delivery O2 Flow Rate FiO2 07/05/20 09:00 Room Air 07/05/20 08:53 86 131/64 07/05/20 08:00 98.4 86 20 131/64 (86) 97 07/05/20 04:00 98.1 81 19 127/58 (81) 96 07/05/20 00:00 97.6 98 19 104/70 (81) 96 07/04/20 22:52 Room Air 07/04/20 20:17 88 120/68 07/04/20 20:00 97.9 95 19 106/67 (80) 96 07/04/20 16:00 97.4 88 19 120/68 (85) 97 Intake and Output 07/04/20 07/05/20 19:00 07:00 Intake Total 50 ml 730 ml Output Total 800 ml 600 ml Balance -750 ml 130 ml Free Water 180 ml Tube Feeding 50 ml 550 ml Output Urine Total 800 ml 600 ml # Voids 1 # Bowel Movements 1 1 General Appearance: cachetic HEENT: normocephalic, atraumatic Respiratory: chest wall non-tender, normal breath sounds Cardiovascular: normal peripheral pulses, normal rate, JVD Abdomen: normal bowel sounds, hyperactive bowel sounds Genitourinary: normal external genitalia Extremities: no clubbing Skin: no lesions 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: 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 II-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 grossly normal Lymphatic: no neck adenopathy Laboratory Tests 07/04/20 17:01: POC Whole Blood Glucose 172H 07/05/20 04:53: POC Whole Blood Glucose 142H 07/05/20 05:20: White Blood Count 7.0, Red Blood Count 3.66L, Hemoglobin 10.5L, Hematocrit 33.6L , Mean Corpuscular Volume 92, Mean Corpuscular Hemoglobin 28.7, Mean Corpuscular Hemoglobin Concent 31.3L, Red Cell Distribution Width 16.1H, Platelet Count 588H , Mean Platelet Volume 7.2, Neutrophils (%) (Auto) 52.7, Lymphocytes (%) (Auto) 38.7, Monocytes (%) (Auto) 5.9, Eosinophils (%) (Auto) 1.9, Basophils (%) (Auto) 0.9, Sodium Level 146H, Potassium Level 4.4, Chloride Level 110H, Carbon Dioxide Level 24, Anion Gap 12, Blood Urea Nitrogen 29H, Creatinine 1.0, Estimat Glomerular Filtration Rate > 60, Glucose Level 107H, Calcium Level 8.8, Phosphorus Level 3.2, Magnesium Level 2.5H, Total Bilirubin 0.2, Aspartate Amino Transf (AST/SGOT) 34, Alanine Aminotransferase (ALT/SGPT) 19, Alkaline Phosphatase 200H, Total Protein 7.8, Albumin 2.0L, Globulin 5.8, Albumin/Globulin Ratio 0.3L 07/05/20 08:58: POC Whole Blood Glucose [Pending] 07/05/20 11:11: POC Whole Blood Glucose 171H Current Medications Medications (Trade) Dose Ordered Sig/Debi Route PRN Reason Start Time Stop Time Status Last Admin Dose Admin Acetaminophen (Tylenol) 650 mg Q6H PRN GT Temperature >100.4 07/01/20 17:45 07/31/20 17:44 Aspirin (ASA) 81 mg DAILY GT 06/28/20 09:00 07/17/20 08:59 07/05/20 08:52 Cefazolin Sodium 50 ml @ 100 mls/hr Q8HR@0100,0900,1700 IV 06/28/20 17:00 07/05/20 16:59 07/05/20 08:52 Dextrose (Dextrose 50%) 25 ml Q30M PRN IV Hypoglycemia 06/27/20 10:30 09/20/20 06:59 Dextrose (Dextrose 50%) 50 ml Q30M PRN IV Hypoglycemia 06/27/20 10:30 09/20/20 06:59 Famotidine (Pepcid) 20 mg BID GT 06/27/20 18:00 09/01/20 17:59 07/05/20 08:52 Heparin Sodium (Porcine) (Heparin 5000 units/ml) 5,000 units EVERY 12 HOURS SUBQ 06/27/20 21:00 07/17/20 08:59 07/05/20 08:55 Insulin Aspart (NovoLOG) Q6HR SUBQ 06/27/20 12:00 09/09/20 17:59 07/05/20 12:11 Insulin Detemir (Levemir) 8 units EVERY 12 HOURS SUBQ 07/05/20 09:00 09/09/20 20:59 07/05/20 08:59 Metoprolol Tartrate (Lopressor) 25 mg Q12HR GT 06/27/20 21:00 09/20/20 08:59 07/04/20 20:17 Midodrine (Pro-Amatine) 2.5 mg TIDPRN PRN GT blood pressure below 100 sbp 06/27/20 11:00 09/11/20 10:59 Vancomycin HCl (Firvanq) 125 mg FOUR TIMES A DAY GT 06/28/20 13:00 07/08/20 12:59 07/05/20 12:11 Assessment/Plan Problems: (1) Clostridium difficile colitis (2) Staphylococcus aureus bacteremia (3) Sepsis (4) Multiple drug resistant organism (MDRO) culture positive (5) Hypernatremia (6) History of CVA (cerebrovascular accident) (7) History of hypertension (8) Parkinson disease (9) Severe protein-calorie malnutrition (10) Feeding by G-tube (11) Diabetes mellitus Assessment/Plan Na still high, start on d5w 100 cc/hour , check labs in am. Na is 146, from 150 yesterday wbc is normal today C-diff positive Na is still high still low grade temp repeat all cultures , Urine has proteus,,MDR COVID Negative sliding scale all reviewed, symptomatic treatment dvt prophylaxis Latanya Mckeon MD Jul 05, 2020 12:15
--- NOTE | 2020-07-05 12:37 | Infectious Diseases Prog Note ---
Assessment/Plan 79yo M with: COVID19 neg (06/01 rapid COVID PCR neg) Sespsis, recurrent MSSA bacteremia- - ?from PNA- low grade, no vegetations on 2d echo- .endocarditis cannot be excluded UTI, recurrent Probable PNA -07/04 CXR: Lungs and pleural spaces remain clear. -06/29 CT c/abd/p w/ : Patchy opacities in the left lower lobe which may be related to subsegmental atelectasis versus developing pneumonia. Indwelling Adams catheter. Bladder wall thickening cystitis not excluded. Mild distention of the bladder despite the Adams catheter. Markedly enlarged and heterogeneous prostate which may be on the basis of BPH. Nonobstructing left renal stone. Marked thickening of the wall of the rectum and distal sigmoid colon suggesting a proctitis. Interval decrease in rectal stool burden. Moderate stool burden in t he remainder of the upstream colon. Sacral decubitus ulcer. No organized/drainable subcutaneous fluid collection noted in this region. -06/27 Bcx Neg -06/23 Bcx Neg 2d echo no vegetations seen -06/21 rapid COVID PCR neg u/a wbc 5-10,nit neg, leuk +3; ucx >100k ESBL P.mirabilis Bx 12/15 MSSA CXR No acute process. Cdiff colitis -06/27 Cdif toxin a/b + Fever, recurrent; SP Leukocytosis, recurrent; SP KELLY, improving UTI, sp rx 06/01 UA w/ pyuria, UCx + P Mirabilis ESBL 06/01 BCx Neg 06/01 CXR: No acute process COVID rapid test neg H/o ESBL Proteus in UCx in Oct 2019 Renal US w/ BL cysts PMH: DM2 Parkinson's dementia Bedridden G-tube Plan: PO Vancomycin # 05/27 for cdiff Ancef # 8 (abx d ) for MSSA bactremia 06/27 SP Ertapenem #4, IV Vancomycin #7 06/24 SP MEropenem #4 06/10 SP audra #8 06/02 SP erta #1 06/01 SP cefepime, vanco, flagyl x1 in ED Monitor CBC/BMP Recomended ELMO- but unable to obtained consent; will treat presume endocarditis with 6 weeks course. PICC line D/w RN and Dr Kelley Thank you for this consult. [facility] will continue to follow. Subjective Allergies: Coded Allergies: No Known Allergies (Unverified , 08/27/19) afebrile at RA no leukocytosis Objective Last 24 Hour Vital Signs Date Time Temp Pulse Resp B/P (MAP) Pulse Ox O2 Delivery O2 Flow Rate FiO2 07/05/20 09:00 Room Air 07/05/20 08:53 86 131/64 07/05/20 08:00 98.4 86 20 131/64 (86) 97 07/05/20 04:00 98.1 81 19 127/58 (81) 96 07/05/20 00:00 97.6 98 19 104/70 (81) 96 07/04/20 22:52 Room Air 07/04/20 20:17 88 120/68 07/04/20 20:00 97.9 95 19 106/67 (80) 96 07/04/20 16:00 97.4 88 19 120/68 (85) 97 Height (Feet): 5 Height (Inches): 5.00 Weight (Pounds): 123 GENERAL: no apparent distress. CHEST: Lungs are clear to auscultation bilaterally without wheezes or rales. CARDIOVASCULAR: regular rhythm. S1, S2 are normal without murmurs, rubs, or gallops. ABDOMEN: Soft, nontender, and nondistended. Positive bowel sounds. No evidence of hepatosplenomegaly. EXTREMITIES: Negative for clubbing, cyanosis, or edema. Laboratory Tests Test 07/04/20 17:01 07/05/20 04:53 07/05/20 05:20 07/05/20 08:58 POC Whole Blood Glucose 172 MG/DL (74-106) H 142 MG/DL (74-106) H Pending White Blood Count 7.0 K/UL (4.8-10.8) Red Blood Count 3.66 M/UL (4.70-6.10) L Hemoglobin 10.5 G/DL (14.2-18.0) L Hematocrit 33.6 % (42.0-52.0) L Mean Corpuscular Volume 92 FL (80-99) Mean Corpuscular Hemoglobin 28.7 PG (27.0-31.0) Mean Corpuscular Hemoglobin Concent 31.3 G/DL (32.0-36.0) L Red Cell Distribution Width 16.1 % (11.6-14.8) H Platelet Count 588 K/UL (150-450) H Mean Platelet Volume 7.2 FL (6.5-10.1) Neutrophils (%) (Auto) 52.7 % (45.0-75.0) Lymphocytes (%) (Auto) 38.7 % (20.0-45.0) Monocytes (%) (Auto) 5.9 % (1.0-10.0) Eosinophils (%) (Auto) 1.9 % (0.0-3.0) Basophils (%) (Auto) 0.9 % (0.0-2.0) Sodium Level 146 MMOL/L (136-145) H Potassium Level 4.4 MMOL/L (3.5-5.1) Chloride Level 110 MMOL/L (98-107) H Carbon Dioxide Level 24 MMOL/L (21-32) Anion Gap 12 mmol/L (5-15) Blood Urea Nitrogen 29 mg/dL (7-18) H Creatinine 1.0 MG/DL (0.55-1.30) Estimat Glomerular Filtration Rate > 60 mL/min (>60) Glucose Level 107 MG/DL (74-106) H Calcium Level 8.8 MG/DL (8.5-10.1) Phosphorus Level 3.2 MG/DL (2.5-4.9) Magnesium Level 2.5 MG/DL (1.8-2.4) H Total Bilirubin 0.2 MG/DL (0.2-1.0) Aspartate Amino Transf (AST/SGOT) 34 U/L (15-37) Alanine Aminotransferase (ALT/SGPT) 19 U/L (12-78) Alkaline Phosphatase 200 U/L (46-116) H Total Protein 7.8 G/DL (6.4-8.2) Albumin 2.0 G/DL (3.4-5.0) L Globulin 5.8 g/dL Albumin/Globulin Ratio 0.3 (1.0-2.7) L Test 07/05/20 11:11 POC Whole Blood Glucose 171 MG/DL (74-106) H Current Medications Medications (Trade) Dose Ordered Sig/Debi Route PRN Reason Start Time Stop Time Status Last Admin Dose Admin Acetaminophen (Tylenol) 650 mg Q6H PRN GT Temperature >100.4 07/01/20 17:45 07/31/20 17:44 Aspirin (ASA) 81 mg DAILY GT 06/28/20 09:00 07/17/20 08:59 07/05/20 08:52 Cefazolin Sodium 50 ml @ 100 mls/hr Q8HR@0100,0900,1700 IV 06/28/20 17:00 07/05/20 16:59 07/05/20 08:52 Dextrose (Dextrose 50%) 25 ml Q30M PRN IV Hypoglycemia 06/27/20 10:30 09/20/20 06:59 Dextrose (Dextrose 50%) 50 ml Q30M PRN IV Hypoglycemia 06/27/20 10:30 09/20/20 06:59 Famotidine (Pepcid) 20 mg BID GT 06/27/20 18:00 09/01/20 17:59 07/05/20 08:52 Heparin Sodium (Porcine) (Heparin 5000 units/ml) 5,000 units EVERY 12 HOURS SUBQ 06/27/20 21:00 07/17/20 08:59 07/05/20 08:55 Insulin Aspart (NovoLOG) Q6HR SUBQ 06/27/20 12:00 09/09/20 17:59 07/05/20 12:11 Insulin Detemir (Levemir) 8 units EVERY 12 HOURS SUBQ 07/05/20 09:00 09/09/20 20:59 07/05/20 08:59 Metoprolol Tartrate (Lopressor) 25 mg Q12HR GT 06/27/20 21:00 09/20/20 08:59 07/04/20 20:17 Midodrine (Pro-Amatine) 2.5 mg TIDPRN PRN GT blood pressure below 100 sbp 06/27/20 11:00 09/11/20 10:59 Vancomycin HCl (Firvanq) 125 mg FOUR TIMES A DAY GT 06/28/20 13:00 07/08/20 12:59 07/05/20 12:11 Blaire Greenwood M.D. Jul 05, 2020 12:37
--- NOTE | 2020-07-05 14:21 | Surgery Progress Note ---
Surgery Progress Note Subjective Symptoms: improved, pain absent, tolerating diet Objective Last 24 Hour Vital Signs Date Time Temp Pulse Resp B/P (MAP) Pulse Ox O2 Delivery O2 Flow Rate FiO2 07/05/20 12:00 97.8 81 18 114/66 (82) 98 07/05/20 09:00 Room Air 07/05/20 08:53 86 131/64 07/05/20 08:00 98.4 86 20 131/64 (86) 97 07/05/20 04:00 98.1 81 19 127/58 (81) 96 07/05/20 00:00 97.6 98 19 104/70 (81) 96 07/04/20 22:52 Room Air 07/04/20 20:17 88 120/68 07/04/20 20:00 97.9 95 19 106/67 (80) 96 07/04/20 16:00 97.4 88 19 120/68 (85) 97 I&O Intake and Output 07/04/20 07/05/20 19:00 07:00 Intake Total 50 ml 730 ml Output Total 800 ml 600 ml Balance -750 ml 130 ml Free Water 180 ml Tube Feeding 50 ml 550 ml Output Urine Total 800 ml 600 ml # Voids 1 # Bowel Movements 1 1 Dressing: saturated Cardiovascular: RSR Respiratory: clear Abdomen: soft, non-tender, present bowel sounds Extremities: no tenderness, no cyanosis Laboratory Tests Test 07/04/20 17:01 07/05/20 04:53 07/05/20 05:20 07/05/20 08:58 POC Whole Blood Glucose 172 MG/DL (74-106) H 142 MG/DL (74-106) H Pending White Blood Count 7.0 K/UL (4.8-10.8) Red Blood Count 3.66 M/UL (4.70-6.10) L Hemoglobin 10.5 G/DL (14.2-18.0) L Hematocrit 33.6 % (42.0-52.0) L Mean Corpuscular Volume 92 FL (80-99) Mean Corpuscular Hemoglobin 28.7 PG (27.0-31.0) Mean Corpuscular Hemoglobin Concent 31.3 G/DL (32.0-36.0) L Red Cell Distribution Width 16.1 % (11.6-14.8) H Platelet Count 588 K/UL (150-450) H Mean Platelet Volume 7.2 FL (6.5-10.1) Neutrophils (%) (Auto) 52.7 % (45.0-75.0) Lymphocytes (%) (Auto) 38.7 % (20.0-45.0) Monocytes (%) (Auto) 5.9 % (1.0-10.0) Eosinophils (%) (Auto) 1.9 % (0.0-3.0) Basophils (%) (Auto) 0.9 % (0.0-2.0) Sodium Level 146 MMOL/L (136-145) H Potassium Level 4.4 MMOL/L (3.5-5.1) Chloride Level 110 MMOL/L (98-107) H Carbon Dioxide Level 24 MMOL/L (21-32) Anion Gap 12 mmol/L (5-15) Blood Urea Nitrogen 29 mg/dL (7-18) H Creatinine 1.0 MG/DL (0.55-1.30) Estimat Glomerular Filtration Rate > 60 mL/min (>60) Glucose Level 107 MG/DL (74-106) H Calcium Level 8.8 MG/DL (8.5-10.1) Phosphorus Level 3.2 MG/DL (2.5-4.9) Magnesium Level 2.5 MG/DL (1.8-2.4) H Total Bilirubin 0.2 MG/DL (0.2-1.0) Aspartate Amino Transf (AST/SGOT) 34 U/L (15-37) Alanine Aminotransferase (ALT/SGPT) 19 U/L (12-78) Alkaline Phosphatase 200 U/L (46-116) H Total Protein 7.8 G/DL (6.4-8.2) Albumin 2.0 G/DL (3.4-5.0) L Globulin 5.8 g/dL Albumin/Globulin Ratio 0.3 (1.0-2.7) L Test 07/05/20 11:11 POC Whole Blood Glucose 171 MG/DL (74-106) H Plan Problems: (1) Hypernatremia (2) Dehydration (3) Hip fracture, left (4) Diabetes mellitus (5) History of hypertension (6) Severe protein-calorie malnutrition Assessment & Plan: DAILY ESTIMATED NEEDS: Needs based on Sepsis, DM/ 54kg 30-40 kcals/kg 9088-8495 total kcals 1.25-2 g protein/kg 68-108 g total protein 25-35ml/kcal mL/kg 1281-1026 total fluid mLs NUTRITION DIAGNOSIS: * Swallowing difficulty R/T dysphagia, as evidenced by Pt is GT dep. (CURRENT TF: Glucerna 1.5 @ 30ml/hr x 24 hrs) ENTERAL NUTRITION RECOMMENDATIONS: Glucerna 1.5 @ 60ml/hr x 20 hrs to provide 1200ml, 1800kcal, 99g prot, 911ml free water, 160g carbs * Rec to INCREASE TF GOAL to 60ml/hr for 20 hrs * HOB over 30 degrees, increased water flushes * TF at goal meets 100% est needs. -------- ADDITIONAL RECOMMENDATIONS: * Calibrated bedscale wt for accurate CBW * Monitor lytes daily w/ TF, replete as needed * Pt may require increase in insulin regimen for improved BG W/ continuous TF infusion * Wound healing: DOMENICA BID, F/up w/ WC eval . (7) Acute encephalopathy (8) Pressure Ulcer Of Sacral Region, Unstageable Assessment & Plan: Pt presented on admission with purple and indurated area at Sacrococcygeal at previously compromised site(L)7cm x (W)3cm.Surrounding Hyperpigmentation at Sacrum. Non-Blanching erythema without fluctuance R heel. Non-Blanching erythema with delineated margins L heel (L)4.5cm x (W)5.5cm. L Heel is boggy . Tx.Plan: Apply Moisture Barrier Paste to Sacrum. Cover with Optifoam drsgs. Change every 3 days and prn. Apply Cavilon Skin Barrier to R and L trochanter. Cover each site with Optifoam drsgs. Change every 7 days and prn. Apply Cavilon Skin Barrier to each heel and malleoli. Cover each site with Optifoam drsgs. Change every 7 days and prn. Reposition at least every 2hours or as tolerated. Off-load heels with pillow. improving cont current care tube site okay (9) Feeding by G-tube (10) Abdominal distention (11) Multiple drug resistant organism (MDRO) culture positive (12) Sepsis (13) History of CVA (cerebrovascular accident) (14) Parkinson disease (15) Staphylococcus aureus bacteremia Assessment & Plan: repeat blood cultures negative on abx unlikely source of bacteremia from wounds. will monitor cont local wound care improving leukocytosis James Breen Jul 05, 2020 14:20
--- NOTE | 2020-07-05 15:00 | Cardiology Progress Note ---
Assessment/Plan Assessment/Plan bacteremia mssa penonia dementia parkinsonism d/w dr goodson no emergent justification for ELMO per social staff worker: SW received a consult to locate the family. Pt opened his eyes but non-verbal. This SW was unable to obtain information from pt. SW spoke w/ Beth from [facility] [phone], stating that there is no family emergency contact listed. Pt has been a resident since September 2019. Per chart review, emergency contacts are Mamadou Warner (vocational case manager) [phone]. SW attempted to call this number, incorrect number. SW spoke w/ pt's former shoe caser from [employer], Kendell Emanuel [phone], confirmed that pt does not have a family member, but [employer] friends only. in that ligt will dc ELMO for tomorrow as unable to obtain consent for gil procedure will need empric treatment for endocarditis if still remain a high liklihood fu blood cx are neg after 5 days Subjective ROS Limited/Unobtainable: Yes Objective Last 24 Hour Vital Signs Date Time Temp Pulse Resp B/P (MAP) Pulse Ox O2 Delivery O2 Flow Rate FiO2 07/05/20 12:00 97.8 81 18 114/66 (82) 98 07/05/20 09:00 Room Air 07/05/20 08:53 86 131/64 07/05/20 08:00 98.4 86 20 131/64 (86) 97 07/05/20 04:00 98.1 81 19 127/58 (81) 96 07/05/20 00:00 97.6 98 19 104/70 (81) 96 07/04/20 22:52 Room Air 07/04/20 20:17 88 120/68 07/04/20 20:00 97.9 95 19 106/67 (80) 96 07/04/20 16:00 97.4 88 19 120/68 (85) 97 Intake and Output 07/04/20 07/05/20 19:00 07:00 Intake Total 50 ml 730 ml Output Total 800 ml 600 ml Balance -750 ml 130 ml Free Water 180 ml Tube Feeding 50 ml 550 ml Output Urine Total 800 ml 600 ml # Voids 1 # Bowel Movements 1 1 Laboratory Tests Test 07/04/20 17:01 07/05/20 04:53 07/05/20 05:20 07/05/20 08:58 POC Whole Blood Glucose 172 MG/DL (74-106) H 142 MG/DL (74-106) H Pending White Blood Count 7.0 K/UL (4.8-10.8) Red Blood Count 3.66 M/UL (4.70-6.10) L Hemoglobin 10.5 G/DL (14.2-18.0) L Hematocrit 33.6 % (42.0-52.0) L Mean Corpuscular Volume 92 FL (80-99) Mean Corpuscular Hemoglobin 28.7 PG (27.0-31.0) Mean Corpuscular Hemoglobin Concent 31.3 G/DL (32.0-36.0) L Red Cell Distribution Width 16.1 % (11.6-14.8) H Platelet Count 588 K/UL (150-450) H Mean Platelet Volume 7.2 FL (6.5-10.1) Neutrophils (%) (Auto) 52.7 % (45.0-75.0) Lymphocytes (%) (Auto) 38.7 % (20.0-45.0) Monocytes (%) (Auto) 5.9 % (1.0-10.0) Eosinophils (%) (Auto) 1.9 % (0.0-3.0) Basophils (%) (Auto) 0.9 % (0.0-2.0) Sodium Level 146 MMOL/L (136-145) H Potassium Level 4.4 MMOL/L (3.5-5.1) Chloride Level 110 MMOL/L (98-107) H Carbon Dioxide Level 24 MMOL/L (21-32) Anion Gap 12 mmol/L (5-15) Blood Urea Nitrogen 29 mg/dL (7-18) H Creatinine 1.0 MG/DL (0.55-1.30) Estimat Glomerular Filtration Rate > 60 mL/min (>60) Glucose Level 107 MG/DL (74-106) H Calcium Level 8.8 MG/DL (8.5-10.1) Phosphorus Level 3.2 MG/DL (2.5-4.9) Magnesium Level 2.5 MG/DL (1.8-2.4) H Total Bilirubin 0.2 MG/DL (0.2-1.0) Aspartate Amino Transf (AST/SGOT) 34 U/L (15-37) Alanine Aminotransferase (ALT/SGPT) 19 U/L (12-78) Alkaline Phosphatase 200 U/L (46-116) H Total Protein 7.8 G/DL (6.4-8.2) Albumin 2.0 G/DL (3.4-5.0) L Globulin 5.8 g/dL Albumin/Globulin Ratio 0.3 (1.0-2.7) L Test 07/05/20 11:11 POC Whole Blood Glucose 171 MG/DL (74-106) H Mamadou Kelley MD Jul 05, 2020 15:00
[2020-07-05 16:00] VITALS: BP 117/68
--- NOTE | 2020-07-05 16:13 | Nephrology Progress Note ---
Assessment/Plan Problem List: (1) Hypernatremia (2) Sepsis (3) History of CVA (cerebrovascular accident) (4) Parkinson disease (5) Feeding by G-tube (6) Dehydration Assessment KELLY, resolving, serum creatinine of 1.9 now down to 1.2 Hypernatremia, dehydration, free water deficit Sepsis Diabetes mellitus [id number] GT feeding Severe protein calorie malnutrition History of CVA History of hypertension Parkinson's disease Plan July 05: Labs reviewed. Renal parameters stable. Continue per consultants. July 04: Labs reviewed. Serum sodium rising again. 1 L D5W ordered. Continue the rest per consultants. July 03: Lab reviewed. Stable renal parameters. Continue per consultants. July 02: Labs reviewed. IV fluids discontinued. Electrolytes within normal range. July 01: Lab reviewed. Serum sodium lowering. Will decrease D5W to 50 cc an hour. Continue per consultants. Meds reviewed. Continue to monitor electrolytes and renal parameters. June 30: Lab reviewed. Serum sodium is lowering. Other electrolytes and renal parameters stable. Continue as is. June 29: Labs reviewed. Discussed with RN. Serum sodium lowering on D5W IV infusion. Patient due for CT scan of the abdomen today. Continue to monitor electrolytes. June 28: Lab reviewed. Discussed with RN. Serum sodium higher. Will start 150 cc an hour D5W. Patient off feeding waiting for a CT of the abdomen. Continue to monitor electrolytes. Try to keep the blood sugar in check. June 27: Lab reviewed. Urine sodium elevated. Renal parameters stable. Continue to administer free water for hypernatremia. June 26: Lab reviewed. Serum sodium higher. Will give D5W bolus. Co ntinue to monitor electrolytes. June 24: Lab reviewed. Renal parameters stable. Will discontinue IV fluid. Continue her consultants. June 23: Labs reviewed. Medication list reviewed. Renal parameters stable. Blood sugar needs better control. Defer to PMD and banquet prep cook. June 22: Clinically stable. Labs reviewed. Blood sugar elevated. Renal parameters stable. Continue blood sugar management per banquet prep cook June 21: Patient is febrile today. Abnormal electrolytes addressed. Stable from renal standpoint of view. June 20: No chemistry panel done today. Stable from renal standpoint. Will order chemistry panel tomorrow June 19: Labs reviewed. Phosphorus supplement given. Stable from renal standpoint of view. June 18: Lab reviewed. Serum sodium lower. Creatinine 1.1. Continue current management. June 17: Lab reviewed. Sodium 160. Creatinine 1.3. Calcium lower at 9. Will continue D5W. June 16: Labs reviewed. Renal parameters stable. Serum calcium lowering. Serum sodium lowering. Serum creatinine 1.3. Another 1 L of D5W ordered. June 15: Lab reviewed. Serum sodium high. 1 L D5W given. Serum creatinine 1.4. Pamidronate given yesterday. Continue to monitor serum calcium. June 14: Lab reviewed. Serum calcium high corrected for low serum albumin. 60 mg pamidronate ID given. Continue to monitor renal parameters calcium and phosphorus. June 13: Lab reviewed. Medication list reviewed. Renal parameters stable. Will watch serum calcium and serum sodium. Chemistry panel tomorrow. June 12: Labs reviewed. Stable from renal standpoint of view. June 11: Labs reviewed. Stable renal parameters. June 10: Lab reviewed. Serum potassium normalized. Will give 1 L of D5W for high serum sodium. Continue per consultants. June 09: Labs reviewed. Discussed with RN. Serum potassium elevated. Suspect hemolysis. Will repeat serum potassium. DC all potassium supplements. June 08: Serum sodium higher. Will give 1 L of D5W. Renal parameters stable. Continue to monitor electrolytes. Continue per consultants. June 07: 1 bolus of D5W. Renal parameters stable. Serum sodium slightly high. Stable from renal standpoint of view. June 06: We will again discontinue the IV ordered. Stable from renal standpoint of view. Will start midodrine for low blood pressure. June 05: DC IV fluid. Potassium supplement given. Stable from renal standpoint to view. June 04: Potassium and magnesium supplement IV given, stable from renal standpoint of view. IV fluid D5W Monitor electrolytes Monitor renal parameters Hold blood pressure medication since blood pressure low Per orders, per consultants Subjective ROS Limited/Unobtainable: No Constitutional: Reports: malaise Objective Objective Last 24 Hour Vital Signs Date Time Temp Pulse Resp B/P (MAP) Pulse Ox O2 Delivery O2 Flow Rate FiO2 07/05/20 12:00 97.8 81 18 114/66 (82) 98 07/05/20 09:00 Room Air 07/05/20 08:53 86 131/64 07/05/20 08:00 98.4 86 20 131/64 (86) 97 07/05/20 04:00 98.1 81 19 127/58 (81) 96 07/05/20 00:00 97.6 98 19 104/70 (81) 96 07/04/20 22:52 Room Air 07/04/20 20:17 88 120/68 07/04/20 20:00 97.9 95 19 106/67 (80) 96 Intake and Output 07/04/20 07/05/20 19:00 07:00 Intake Total 50 ml 730 ml Output Total 800 ml 600 ml Balance -750 ml 130 ml Free Water 180 ml Tube Feeding 50 ml 550 ml Output Urine Total 800 ml 600 ml # Voids 1 # Bowel Movements 1 1 Laboratory Tests 07/04/20 17:01: POC Whole Blood Glucose 172H 07/05/20 04:53: POC Whole Blood Glucose 142H 07/05/20 05:20: White Blood Count 7.0, Red Blood Count 3.66L, Hemoglobin 10.5L, Hematocrit 33.6L , Mean Corpuscular Volume 92, Mean Corpuscular Hemoglobin 28.7, Mean Corpuscular Hemoglobin Concent 31.3L, Red Cell Distribution Width 16.1H, Platelet Count 588H , Mean Platelet Volume 7.2, Neutrophils (%) (Auto) 52.7, Lymphocytes (%) (Auto) 38.7, Monocytes (%) (Auto) 5.9, Eosinophils (%) (Auto) 1.9, Basophils (%) (Auto) 0.9, Sodium Level 146H, Potassium Level 4.4, Chloride Level 110H, Carbon Dioxide Level 24, Anion Gap 12, Blood Urea Nitrogen 29H, Creatinine 1.0, Estimat Glomerular Filtration Rate > 60, Glucose Level 107H, Calcium Level 8.8, Phosphorus Level 3.2, Magnesium Level 2.5H, Total Bilirubin 0.2, Aspartate Amino Transf (AST/SGOT) 34, Alanine Aminotransferase (ALT/SGPT) 19, Alkaline Phosphatase 200H, Total Protein 7.8, Albumin 2.0L, Globulin 5.8, Albumin/Globulin Ratio 0.3L 07/05/20 08:58: POC Whole Blood Glucose [Pending] 07/05/20 11:11: POC Whole Blood Glucose 171H Height (Feet): 5 Height (Inches): 5.00 Weight (Pounds): 123 General Appearance: no apparent distress Cardiovascular: normal rate Respiratory/Chest: decreased breath sounds Abdomen: distended Objective No change Eddie Nelson MD Jul 05, 2020 16:13
--- NOTE | 2020-07-05 16:55 | Internal Med Progress Note ---
Subjective Date of Service: Jul 05, 2020 Physician Name Tello Cobb Attending Physician Cirilo Rome MD Current Medications Medications (Trade) Dose Ordered Sig/Debi Route PRN Reason Start Time Stop Time Status Last Admin Dose Admin Acetaminophen (Tylenol) 650 mg Q6H PRN GT Temperature >100.4 07/01/20 17:45 07/31/20 17:44 Aspirin (ASA) 81 mg DAILY GT 06/28/20 09:00 07/17/20 08:59 07/05/20 08:52 Cefazolin Sodium 50 ml @ 100 mls/hr Q8HR@0100,0900,1700 IV 06/28/20 17:00 07/05/20 16:59 07/05/20 08:52 Chlorhexidine Gluconate (Jazmin-Hex 2%) 1 applic DAILY@2000 TOPIC 07/05/20 20:00 10/03/20 19:59 Dextrose (Dextrose 50%) 25 ml Q30M PRN IV Hypoglycemia 06/27/20 10:30 09/20/20 06:59 Dextrose (Dextrose 50%) 50 ml Q30M PRN IV Hypoglycemia 06/27/20 10:30 09/20/20 06:59 Famotidine (Pepcid) 20 mg BID GT 06/27/20 18:00 09/01/20 17:59 07/05/20 08:52 Heparin Sodium (Porcine) (Heparin 5000 units/ml) 5,000 units EVERY 12 HOURS SUBQ 06/27/20 21:00 07/17/20 08:59 07/05/20 08:55 Insulin Aspart (NovoLOG) Q6HR SUBQ 06/27/20 12:00 09/09/20 17:59 07/05/20 12:11 Insulin Detemir (Levemir) 8 units EVERY 12 HOURS SUBQ 07/05/20 09:00 09/09/20 20:59 07/05/20 08:59 Metoprolol Tartrate (Lopressor) 25 mg Q12HR GT 06/27/20 21:00 09/20/20 08:59 07/04/20 20:17 Midodrine (Pro-Amatine) 2.5 mg TIDPRN PRN GT blood pressure below 100 sbp 06/27/20 11:00 09/11/20 10:59 Vancomycin HCl (Firvanq) 125 mg FOUR TIMES A DAY GT 06/28/20 13:00 07/08/20 12:59 07/05/20 12:11 Allergies: Coded Allergies: No Known Allergies (Unverified , 08/27/19) ROS Limited/Unobtainable: Yes Subjective 79 YO M admitted with hyperglycemia and hypernatremia. Now UTI. Cover for Int Dusty-Dr Rome Objective Last Vital Signs Date Time Temp Pulse Resp B/P (MAP) Pulse Ox O2 Delivery O2 Flow Rate FiO2 07/05/20 16:00 97.9 79 18 117/68 (84) 97 07/05/20 09:00 Room Air Laboratory Tests Test 07/04/20 17:01 07/05/20 04:53 07/05/20 05:20 07/05/20 08:58 POC Whole Blood Glucose 172 MG/DL (74-106) H 142 MG/DL (74-106) H Pending White Blood Count 7.0 K/UL (4.8-10.8) Red Blood Count 3.66 M/UL (4.70-6.10) L Hemoglobin 10.5 G/DL (14.2-18.0) L Hematocrit 33.6 % (42.0-52.0) L Mean Corpuscular Volume 92 FL (80-99) Mean Corpuscular Hemoglobin 28.7 PG (27.0-31.0) Mean Corpuscular Hemoglobin Concent 31.3 G/DL (32.0-36.0) L Red Cell Distribution Width 16.1 % (11.6-14.8) H Platelet Count 588 K/UL (150-450) H Mean Platelet Volume 7.2 FL (6.5-10.1) Neutrophils (%) (Auto) 52.7 % (45.0-75.0) Lymphocytes (%) (Auto) 38.7 % (20.0-45.0) Monocytes (%) (Auto) 5.9 % (1.0-10.0) Eosinophils (%) (Auto) 1.9 % (0.0-3.0) Basophils (%) (Auto) 0.9 % (0.0-2.0) Sodium Level 146 MMOL/L (136-145) H Potassium Level 4.4 MMOL/L (3.5-5.1) Chloride Level 110 MMOL/L (98-107) H Carbon Dioxide Level 24 MMOL/L (21-32) Anion Gap 12 mmol/L (5-15) Blood Urea Nitrogen 29 mg/dL (7-18) H Creatinine 1.0 MG/DL (0.55-1.30) Estimat Glomerular Filtration Rate > 60 mL/min (>60) Glucose Level 107 MG/DL (74-106) H Calcium Level 8.8 MG/DL (8.5-10.1) Phosphorus Level 3.2 MG/DL (2.5-4.9) Magnesium Level 2.5 MG/DL (1.8-2.4) H Total Bilirubin 0.2 MG/DL (0.2-1.0) Aspartate Amino Transf (AST/SGOT) 34 U/L (15-37) Alanine Aminotransferase (ALT/SGPT) 19 U/L (12-78) Alkaline Phosphatase 200 U/L (46-116) H Total Protein 7.8 G/DL (6.4-8.2) Albumin 2.0 G/DL (3.4-5.0) L Globulin 5.8 g/dL Albumin/Globulin Ratio 0.3 (1.0-2.7) L Test 07/05/20 11:11 POC Whole Blood Glucose 171 MG/DL (74-106) H Intake and Output 07/04/20 07/05/20 19:00 07:00 Intake Total 50 ml 730 ml Output Total 800 ml 600 ml Balance -750 ml 130 ml Free Water 180 ml Tube Feeding 50 ml 550 ml Output Urine Total 800 ml 600 ml # Voids 1 # Bowel Movements 1 1 Objective PHYSICAL EXAMINATION: GENERAL: The patient is a well-developed, well-nourished, thin-appearing, male, in no apparent distress. HEENT: Eyes, pupils equal and responsive to light and accommodation. Extraocular movements are intact. NECK: Supple without lymphadenopathy. CHEST: Lungs are clear to auscultation bilaterally without wheezes or rales. CARDIOVASCULAR: Slightly tachycardic, regular rhythm. S1, S2 are normal without murmurs, rubs, or gallops. ABDOMEN: Soft, nontender, and nondistended. Positive bowel sounds. No evidence of hepatosplenomegaly. Currently, no rebound or guarding noted. EXTREMITIES: Negative for clubbing, cyanosis, or edema. RECTAL: Not performed. GENITAL: Not performed. NEUROLOGIC: Cranial nerves II through XII are grossly intact without focal deficits. Assessment/Plan Assessment/Plan ASSESSMENT: This is a 79-year-old male with: 1. Hyperglycemia. 2. Hypernatremia. 3. Urinary tract infection=MDR proteus. 4. Diabetes type 2. 5. Hypertension. 6. Hypercholesterolemia. 7. Dysphagia. 8. Parkinson disease. 9. Ulcerative proctitis. 10. Protein-calorie malnutrition. 11. History of sacral decubitus ulcer stage IV. 12. Benign prostatic hypertrophy. 13. Gastroesophageal reflux disease. 14. Metabolic encephalopathy. 15. History of left hip fracture. 16. sepsis=staph aureus TREATMENT: 1. Hyperglycemia/diabetes. The patient has been placed on a protocol using NovoLog sliding scale. The patient's blood sugars have been running in 300s. Hyperglycemia may be secondary to urinary tract infection. 2. Urinary tract infection. Urine culture =MDR proteus. ABX= cefazolin and vancomycin results.ID=Dr Oliva 3. Hypertension. Continue amlodipine as above. 4. Hypercholesterolemia. Continue atorvastatin as above. 5. Dysphagia. The patient is status post PEG placement. 6. Parkinson disease. Continue amantadine as above. 7. Ulcerative proctitis. 8. Protein-calorie malnutrition. 9. Sacral decubitus ulcer stage IV. 10. Benign prostatic hypertrophy. Continue tamsulosin as above. 11. Gastroesophageal reflux disease. 12. Metabolic encephalopathy. 13. History of left hip fracture. 14. R/O endocarditis Tello Cobb MD Jul 05, 2020 16:55
--- NOTE | 2020-07-05 19:30 | NUR ---
NURSE NOTES: Patient in bed, on room air, no SOB noted. No signs of pain. With Gtube connected to feeding. With Adams catheter intact and draining well. With IV access on bilateral arms, saline lock. Call light in reach. Bed in lowest, lock engaged and alarm on. Will continue to monitor.
--- NOTE | 2020-07-05 19:57 | NUR ---
NURSE HAND-OFF: Important Events on Shift:CONSENT FOR PICC PLACEMENT OBTAINED Patient Status: stable Diet: glucerna 1.5 50cc Pending Orders: n/a Pending Results/Labs:n/a Pending MD notification:n/a Latest Vital Signs: Temperature 97.9 , Pulse 79 , B/P 117 /68 , Respiratory Rate 18 , O2 SAT 97 , Room Air, O2 Flow Rate 3.0 . Vital Sign Comment: stable Latest Lane Fall Score: 55 Fall Risk: High Risk Safety Measures: Call light Within Reach, Bed Alarm Zone 1, Side Rails Side Rails x3, Bed position Low and Locked. Fall Precautions: Yellow Socks Yellow Gown Door Sign Report given to JOHNNY Valdivia.
[2020-07-05 20:00] VITALS: BP 120/65
[2020-07-05] MEDS: Dyna-Hex 2% Top Sol 2oz TOPIC SCH (20:00)
[2020-07-06] VITALS: BP 93/60
[2020-07-06] MEDS: NovoLOG Insulin Flexpen SUBQ SCH ×4 (00:22→17:44)
[2020-07-06] MEDS: ceFAZolin 2gm/50ml Premix 50 ML IV SCH ×3 (01:44→17:37)
[2020-07-06 04:00] VITALS: BP 98/61
--- NOTE | 2020-07-06 06:35 | General Progress Note ---
Subjective ROS Limited/Unobtainable: Yes Allergies: Coded Allergies: No Known Allergies (Unverified , 08/27/19) Subjective events noted and interval notes reviewed glucose values are stable Item Value Date Time Bedside Blood Glucose 164 mg/dl H 07/06/20 0545 Bedside Blood Glucose 187 mg/dl H 07/06/20 0022 Bedside Blood Glucose 193 mg/dl H 07/05/20 2119 Bedside Blood Glucose 171 mg/dl H 07/05/20 1800 Bedside Blood Glucose 171 mg/dl H 07/05/20 1211 Bedside Blood Glucose 159 mg/dl H 07/05/20 0859 Bedside Blood Glucose 152 mg/dl H 07/05/20 0529 Objective Last 24 Hour Vital Signs Date Time Temp Pulse Resp B/P (MAP) Pulse Ox O2 Delivery O2 Flow Rate FiO2 07/06/20 04:00 98.1 90 16 98/61 (73) 96 07/06/20 00:00 98.2 87 18 93/60 (71) 96 07/05/20 21:06 76 120/65 07/05/20 21:00 Room Air 07/05/20 20:00 98.0 76 17 120/65 (83) 96 07/05/20 16:00 97.9 79 18 117/68 (84) 97 07/05/20 12:00 97.8 81 18 114/66 (82) 98 07/05/20 09:00 Room Air 07/05/20 08:53 86 131/64 07/05/20 08:00 98.4 86 20 131/64 (86) 97 Intake and Output 07/05/20 07/06/20 19:00 07:00 Intake Total 450 ml 1100 ml Output Total 600 ml Balance 450 ml 500 ml Free Water 250 ml 500 ml IV Total 50 ml Tube Feeding 200 ml 550 ml Output Urine Total 600 ml # Voids 1 # Bowel Movements 1 Laboratory Tests 07/05/20 08:58: POC Whole Blood Glucose [Pending] 07/05/20 11:11: POC Whole Blood Glucose 171H Height (Feet): 5 Height (Inches): 5.00 Weight (Pounds): 123 General Appearance: no apparent distress Neck: normal alignment Cardiovascular: normal rate Respiratory/Chest: decreased breath sounds Abdomen: normal bowel sounds Objective Current Medications Medications (Trade) Dose Ordered Sig/Debi Route PRN Reason Start Time Stop Time Status Last Admin Dose Admin Acetaminophen (Tylenol) 650 mg Q6H PRN GT Temperature >100.4 07/01/20 17:45 07/31/20 17:44 Aspirin (ASA) 81 mg DAILY GT 06/28/20 09:00 07/17/20 08:59 07/05/20 08:52 Cefazolin Sodium 50 ml @ 100 mls/hr Q8H IV 07/05/20 18:00 07/26/20 17:59 07/06/20 01:44 Chlorhexidine Gluconate (Jazmin-Hex 2%) 1 applic DAILY@2000 TOPIC 07/05/20 20:00 10/03/20 19:59 Dextrose (Dextrose 50%) 25 ml Q30M PRN IV Hypoglycemia 06/27/20 10:30 09/20/20 06:59 Dextrose (Dextrose 50%) 50 ml Q30M PRN IV Hypoglycemia 06/27/20 10:30 09/20/20 06:59 Famotidine (Pepcid) 20 mg BID GT 06/27/20 18:00 09/01/20 17:59 07/05/20 17:52 Heparin Sodium (Porcine) (Heparin 5000 units/ml) 5,000 units EVERY 12 HOURS SUBQ 06/27/20 21:00 07/17/20 08:59 07/05/20 08:55 Insulin Aspart (NovoLOG) Q6HR SUBQ 06/27/20 12:00 09/09/20 17:59 07/06/20 05:45 Insulin Detemir (Levemir) 8 units EVERY 12 HOURS SUBQ 07/05/20 09:00 09/09/20 20:59 07/05/20 21:19 Metoprolol Tartrate (Lopressor) 25 mg Q12HR GT 06/27/20 21:00 09/20/20 08:59 07/05/20 21:06 Midodrine (Pro-Amatine) 2.5 mg TIDPRN PRN GT blood pressure below 100 sbp 06/27/20 11:00 09/11/20 10:59 Vancomycin HCl (Firvanq) 125 mg FOUR TIMES A DAY GT 06/28/20 13:00 07/12/20 23:59 07/05/20 21:06 Assessment/Plan Problem List: (1) Hypernatremia ICD Codes: E87.0 - Hyperosmolality and hypernatremia SNOMED: 793081139 (2) Feeding by G-tube ICD Codes: Z93.1 - Gastrostomy status SNOMED: 321712599, 837834015, 092497834 (3) Diabetes mellitus ICD Codes: E11.9 - Type 2 diabetes mellitus without complications SNOMED: 87414550 (4) History of CVA (cerebrovascular accident) ICD Codes: Z86.73 - Personal history of transient ischemic attack (TIA), and cerebral infarction without residual deficits SNOMED: 977147412 (5) Parkinson disease ICD Codes: G20 - Parkinson's disease SNOMED: 63542805 Status: stable, unchanged Assessment/Plan: continue Levemir 8 units bid continue Novolog sliding scale high dose every 6 hours Gregory Pastrana MD Jul 06, 2020 06:35
--- NOTE | 2020-07-06 06:54 | NUR ---
NURSE HAND-OFF: Important Events on Shift:Dressing changed on sacral Patient Status: stable Diet: tube feeding glucerna 1.5 Pending Orders: am labs Pending Results/Labs:bmp,cbc Pending MD notification: Latest Vital Signs: Temperature 98.1 , Pulse 90 , B/P 98 /61 , Respiratory Rate 16 , O2 SAT 96 , Room Air, O2 Flow Rate 3.0 . Vital Sign Comment: Latest Lane Fall Score: 55 Fall Risk: High Risk Safety Measures: Call light Within Reach, Bed Alarm Zone 1, Side Rails Side Rails x3, Bed position Low and Locked. Fall Precautions: Yellow Socks Yellow Gown Door Sign
--- NOTE | 2020-07-06 07:24 | NUR ---
HAND-OFF: Report given to JOHNNY Joyce.
--- NOTE | 2020-07-06 07:51 | NUR ---
NURSE NOTES: Report received from JOHNNY Valdivia. Patient observed to be awake, alert and oriented x1. With HOB elevated, currently on room air. No s/sx of SOB/Distress, no s/sx of pain or gi/gu discomfort. Patient on GTube feeding running glucerna 1.5 @ 50 cc/hr. Tolerating feeding well. IV site located on Left hand g24 and RAC g22. Both IVs asymptomatic, inplace and intact. Adams catheter inplace and running well. Patient's bed placed in lowest and locked position, call light placed within reach and will continue to monitor.
[2020-07-06 08:00] VITALS: BP 111/66
[2020-07-06] MEDS: Aspirin Baby 81mg GT SCH (08:25)
[2020-07-06] MEDS: Vancomycin oral 125mg/2.5ml GT SCH ×4 (08:26→20:27)
[2020-07-06] MEDS: Heparin 5000 units/ml inj SUBQ SCH ×2 (08:27→20:34)
[2020-07-06] MEDS: Levemir Flexpen SUBQ SCH ×2 (08:28→20:35)
--- NOTE | 2020-07-06 08:51 | Nephrology Progress Note ---
Assessment/Plan Problem List: (1) Hypernatremia (2) Sepsis (3) History of CVA (cerebrovascular accident) (4) Parkinson disease (5) Feeding by G-tube (6) Dehydration Assessment KELLY, resolving, serum creatinine of 1.9 now down to 1.2 Hypernatremia, dehydration, free water deficit Sepsis Diabetes mellitus [id number] GT feeding Severe protein calorie malnutrition History of CVA History of hypertension Parkinson's disease Plan July 06: No chemistry panel done today. Stable from renal standpoint of view. Medication list reviewed. July 05: Labs reviewed. Renal parameters stable. Continue per consultants. July 04: Labs reviewed. Serum sodium rising again. 1 L D5W ordered. Continue the rest per consultants. July 03: Lab reviewed. Stable renal parameters. Continue per consultants. July 02: Labs reviewed. IV fluids discontinued. Electrolytes within normal range. July 01: Lab reviewed. Serum sodium lowering. Will decrease D5W to 50 cc an hour. Continue per consultants. Meds reviewed. Continue to monitor electrolytes and renal parameters. June 30: Lab reviewed. Serum sodium is lowering. Other electrolytes and renal parameters stable. Continue as is. June 29: Labs reviewed. Discussed with RN. Serum sodium lowering on D5W IV infusion. Patient due for CT scan of the abdomen today. Continue to monitor electrolytes. June 28: Lab reviewed. Discussed with RN. Serum sodium higher. Will start 150 cc an hour D5W. Patient off feeding waiting for a CT of the abdomen. Continue to monitor electrolytes. Try to keep the blood sugar in check. June 27: Lab reviewed. Urine sodium elevated. Renal parameters stable. Continue to administer free water for hypernatremia. June 26: Lab reviewed. Serum sodium higher. Will give D5W bolus. Continue to monitor electrolytes. June 24: Lab reviewed. Renal parameters stable. Will discontinue IV fluid. Continue her consultants. June 23: Labs reviewed. Medication list reviewed. Renal parameters stable. Blood sugar needs better control. Defer to PMD and power plant operations manager. June 22: Clinically stable. Labs reviewed. Blood sugar elevated. Renal parameters stable. Continue blood sugar management per power plant operations manager June 21: Patient is febrile today. Abnormal electrolytes addressed. Stable from renal standpoint of view. June 20: No chemistry panel done today. Stable from renal standpoint. Will order chemistry panel tomorrow June 19: Labs reviewed. Phosphorus supplement given. Stable from renal standpoint of view. June 18: Lab reviewed. Serum sodium lower. Creatinine 1.1. Continue current management. June 17: Lab reviewed. Sodium 160. Creatinine 1.3. Calcium lower at 9. Will continue D5W. June 16: Labs reviewed. Renal parameters stable. Serum calcium lowering. Serum sodium lowering. Serum creatinine 1.3. Another 1 L of D5W ordered. June 15: Lab reviewed. Serum sodium high. 1 L D5W given. Serum creatinine 1.4. Pamidronate given yesterday. Continue to monitor serum calcium. June 14: Lab reviewed. Serum calcium high corrected for low serum albumin. 60 mg pamidronate ID given. Continue to monitor renal parameters calcium and ph osphorus. June 13: Lab reviewed. Medication list reviewed. Renal parameters stable. Will watch serum calcium and serum sodium. Chemistry panel tomorrow. June 12: Labs reviewed. Stable from renal standpoint of view. June 11: Labs reviewed. Stable renal parameters. June 10: Lab reviewed. Serum potassium normalized. Will give 1 L of D5W for high serum sodium. Continue per consultants. June 09: Labs reviewed. Discussed with RN. Serum potassium elevated. Suspect hemolysis. Will repeat serum potassium. DC all potassium supplements. June 08: Serum sodium higher. Will give 1 L of D5W. Renal parameters stable. Continue to monitor electrolytes. Continue per consultants. June 07: 1 bolus of D5W. Renal parameters stable. Serum sodium slightly high. Stable from renal standpoint of view. June 06: We will again discontinue the IV ordered. Stable from renal bear dpoint of view. Will start midodrine for low blood pressure. June 05: DC IV fluid. Potassium supplement given. Stable from renal standpoint to view. June 04: Potassium and magnesium supplement IV given, stable from renal standpoint of view. IV fluid D5W Monitor electrolytes Monitor renal parameters Hold blood pressure medication since blood pressure low Per orders, per consultants Subjective ROS Limited/Unobtainable: No Constitutional: Reports: malaise Objective Objective Last 24 Hour Vital Signs Date Time Temp Pulse Resp B/P (MAP) Pulse Ox O2 Delivery O2 Flow Rate FiO2 07/06/20 04:00 98.1 90 16 98/61 (73) 96 07/06/20 00:00 98.2 87 18 93/60 (71) 96 07/05/20 21:06 76 120/65 07/05/20 21:00 Room Air 07/05/20 20:00 98.0 76 17 120/65 (83) 96 07/05/20 16:00 97.9 79 18 117/68 (84) 97 07/05/20 12:00 97.8 81 18 114/66 (82) 98 07/05/20 09:00 Room Air 07/05/20 08:53 86 131/64 Intake and Output 07/05/20 07/06/20 19:00 07:00 Intake Total 450 ml 1100 ml Output Total 600 ml Balance 450 ml 500 ml Free Water 250 ml 500 ml IV Total 50 ml Tube Feeding 200 ml 550 ml Output Urine Total 600 ml # Voids 1 # Bowel Movements 1 Laboratory Tests 07/05/20 08:58: POC Whole Blood Glucose [Pending] 07/05/20 11:11: POC Whole Blood Glucose 171H Height (Feet): 5 Height (Inches): 5.00 Weight (Pounds): 123 General Appearance: no apparent distress Objective No change Eddie Nelson MD Jul 06, 2020 08:51
[2020-07-06 10:17] LABS: BASOPHILS % (AUTO) 0.8 % (0.0-2.0); EOSINOPHILS % (AUTO) 1.4 % (0.0-3.0); HEMOGLOBIN 10.5 G/DL (14.2-18.0); LYMPHOCYTES % (AUTO) 31.4 % (20.0-45.0); MEAN CORPUSCULAR VOLUME 92 FL (80-99); MONOCYTES % (AUTO) 7.5 % (1.0-10.0); PLATELET COUNT 574 K/UL (150-450); RED BLOOD COUNT 3.68 M/UL (4.70-6.10); RED CELL DISTRIBUTION WIDTH 15.9 % (11.6-14.8); WHITE BLOOD COUNT 6.1 K/UL (4.8-10.8)
[2020-07-06 10:27] LABS: ANION GAP 7 mmol/L (5-15); BLOOD UREA NITROGEN 30 mg/dL (7-18); CALCIUM 9.1 MG/DL (8.5-10.1); CARBON DIOXIDE 30 MMOL/L (21-32); CHLORIDE 108 MMOL/L (98-107); POTASSIUM 4.8 MMOL/L (3.5-5.1); SODIUM 145 MMOL/L (136-145)
[2020-07-06] MEDS ORDERED: Lidocaine 1% Plain 30 ml INJ PRN (11:45)
[2020-07-06] MEDS ORDERED: Heparin1,000 units/500ml Premix(Conc:2 units/ml) IV PRN (11:45)
[2020-07-06 12:00] VITALS: BP 110/70
--- NOTE | 2020-07-06 12:20 | NUR ---
STEWARD/STEWARDESS NIGHT NOTE MESSAGE LEFT FOR DR SHAH AND DR MEDINA IN RE TO DC PLAN. AWAITING CALL BACK.
--- NOTE | 2020-07-06 13:39 | Surgery Progress Note ---
Surgery Progress Note Subjective Additional Comments case discussed with Infectious disease. patient being treated for bacteremia and requires long term care administrator Abx. currently does not have line for line term abx care plan. PICC line indicated, recommended and medically necessary. patient without POA or next of kin. recommend proceeding with picc for abx therapy given patient with potential meaningful recover and full code. thank you Objective Last 24 Hour Vital Signs Date Time Temp Pulse Resp B/P (MAP) Pulse Ox O2 Delivery O2 Flow Rate FiO2 07/06/20 12:00 97.8 79 17 110/70 (83) 95 07/06/20 09:00 72 111/66 07/06/20 09:00 Room Air 07/06/20 08:00 97.3 72 19 111/66 (81) 97 07/06/20 04:00 98.1 90 16 98/61 (73) 96 07/06/20 00:00 98.2 87 18 93/60 (71) 96 07/05/20 21:06 76 120/65 07/05/20 21:00 Room Air 07/05/20 20:00 98.0 76 17 120/65 (83) 96 07/05/20 16:00 97.9 79 18 117/68 (84) 97 I&O Intake and Output 07/05/20 07/06/20 19:00 07:00 Intake Total 450 ml 1100 ml Output Total 600 ml Balance 450 ml 500 ml Free Water 250 ml 500 ml IV Total 50 ml Tube Feeding 200 ml 550 ml Output Urine Total 600 ml # Voids 1 # Bowel Movements 1 Cardiovascular: RSR Respiratory: clear Abdomen: soft, flat, present bowel sounds Extremities: no cyanosis Laboratory Tests Test 07/06/20 09:55 White Blood Count 6.1 K/UL (4.8-10.8) Red Blood Count 3.68 M/UL (4.70-6.10) L Hemoglobin 10.5 G/DL (14.2-18.0) L Hematocrit 34.0 % (42.0-52.0) L Mean Corpuscular Volume 92 FL (80-99) Mean Corpuscular Hemoglobin 28.4 PG (27.0-31.0) Mean Corpuscular Hemoglobin Concent 30.8 G/DL (32.0-36.0) L Red Cell Distribution Width 15.9 % (11.6-14.8) H Platelet Count 574 K/UL (150-450) H Mean Platelet Volume 6.8 FL (6.5-10.1) Neutrophils (%) (Auto) 59.0 % (45.0-75.0) Lymphocytes (%) (Auto) 31.4 % (20.0-45.0) Monocytes (%) (Auto) 7.5 % (1.0-10.0) Eosinophils (%) (Auto) 1.4 % (0.0-3.0) Basophils (%) (Auto) 0.8 % (0.0-2.0) Sodium Level 145 MMOL/L (136-145) Potassium Level 4.8 MMOL/L (3.5-5.1) Chloride Level 108 MMOL/L (98-107) H Carbon Dioxide Level 30 MMOL/L (21-32) Anion Gap 7 mmol/L (5-15) Blood Urea Nitrogen 30 mg/dL (7-18) H Creatinine 1.0 MG/DL (0.55-1.30) Estimat Glomerular Filtration Rate > 60 mL/min (>60) Glucose Level 188 MG/DL (74-106) H Calcium Level 9.1 MG/DL (8.5-10.1) Plan Problems: (1) Hypernatremia (2) Dehydration (3) Hip fracture, left (4) Diabetes mellitus (5) History of hypertension (6) Severe protein-calorie malnutrition Assessment & Plan: DAILY ESTIMATED NEEDS: Needs based on Sepsis, DM/ 54kg 30-40 kcals/kg 7627-6477 total kcals 1.25-2 g protein/kg 68-108 g total protein 25-35ml/kcal mL/kg 4051-5011 total fluid mLs NUTRITION DIAGNOSIS: * Swallowing difficulty R/T dysphagia, as evidenced by Pt is GT dep. (CURRENT TF: Glucerna 1.5 @ 30ml/hr x 24 hrs) ENTERAL NUTRITION RECOMMENDATIONS: Glucerna 1.5 @ 60ml/hr x 20 hrs to provide 1200ml, 1800kcal, 99g prot, 911ml free water, 160g carbs * Rec to INCREASE TF GOAL to 60ml/hr for 20 hrs * HOB over 30 degrees, increased water flushes * TF at goal meets 100% est needs. -------- ADDITIONAL RECOMMENDATIONS: * Calibrated bedscale wt for accurate CBW * Monitor lytes daily w/ TF, replete as needed * Pt may require increase in insulin regimen for improved BG W/ continuous TF infusion * Wound healing: DOMENICA BID, F/up w/ WC eval . (7) Acute encephalopathy (8) Pressure Ulcer Of Sacral Region, Unstageable Assessment & Plan: Pt presented on admission with purple and indurated area at Sacrococcygeal at previously compromised site(L)7cm x (W)3cm.Surrounding Hyperpigmentation at Sacrum. Non-Blanching erythema without fluctuance R heel. Non-Blanching erythema with delineated margins L heel (L)4.5cm x (W)5.5cm. L Heel is boggy . Tx.Plan: Apply Moisture Barrier Paste to Sacrum. Cover with Optifoam drsgs. Change every 3 days and prn. Apply Cavilon Skin Barrier to R and L trochanter. Cover each site with Optifoam drsgs. Change every 7 days and prn. Apply Cavilon Skin Barrier to each heel and malleoli. Cover each site with Optifoam drsgs. Change every 7 days and prn. Reposition at least every 2hours or as tolerated. Off-load heels with pillow. improving cont current care tube site okay (9) Feeding by G-tube (10) Abdominal distention (11) Multiple drug resistant organism (MDRO) culture positive (12) Sepsis (13) History of CVA (cerebrovascular accident) (14) Parkinson disease (15) Staphylococcus aureus bacteremia Assessment & Plan: repeat blood cultures negative on abx unlikely source of bacteremia from wounds. will monitor cont local wound care improving leukocytosis improved case discussed with Infectious disease. patient being treated for bacteremia and requires [facility] Abx. currently does not have line for line term abx care plan. PICC line indicated, recommended and medically necessary. patient without POA or next of kin. recommend proceeding with picc for abx therapy given patient with potential meaningful recover and full code. thank you James Breen Jul 06, 2020 13:38
--- NOTE | 2020-07-06 14:14 | NUR ---
RADIOLOGY NOTE: LEFT UPPER EXTREMITY PICC LINE PLACEMENT AT [address] CASANOVA. FA
--- NOTE | 2020-07-06 14:30 | NUR ---
NURSE NOTES: Received patient back from PICC Line Insertion. Patient in stable condition, no c/o any pain or s/sx of distress. No bleeding observed from site. Will continue to monitor for any changes in condition.
--- NOTE | 2020-07-06 14:51 | Brief Operative Note ---
Immediate Post Operative Note Operative Note Pre-op Diagnosis: needs roasterman IV access Procedure: PICC Post-op Diagnosis: same as pre-op Surgeon: Amena Blanton Anesthesia: local Specimen: none Complications: none Fluids: none Implant(s) used?: No Huseyin Blanton MD Jul 06, 2020 14:51
[2020-07-06 16:00] VITALS: BP 119/76
--- NOTE | 2020-07-06 16:53 | NUR ---
CASE MANAGEMENT:REVIEW SI;SEPSIS. BACTEREMIA. 98.2 90 19 93/60 95% ON RA PLT 574 CL 108 BUN 30 IS;CEFAZOLIN IV Q8 VANCOMYCIN GT QID LOPRESSOR GT Q8 ASA GT QD HEPARIN SUBQ Q12 PEPCID GT BID MED SURG STATUS DCP;FROM [facility]
--- NOTE | 2020-07-06 17:47 | Pulmonology Progress Note ---
Subjective ROS Limited/Unobtainable: No Constitutional: Reports: no symptoms, anorexia HEENT: Repors: no symptoms Respiratory: Reports: no symptoms Cardiovascular: Reports: no symptoms Allergies: Coded Allergies: No Known Allergies (Unverified , 08/27/19) All Systems: reviewed and negative except above Objective Last 24 Hour Vital Signs Date Time Temp Pulse Resp B/P (MAP) Pulse Ox O2 Delivery O2 Flow Rate FiO2 07/06/20 16:00 97.1 78 18 119/76 (90) 96 07/06/20 12:00 97.8 79 17 110/70 (83) 95 07/06/20 09:00 72 111/66 07/06/20 09:00 Room Air 07/06/20 08:00 97.3 72 19 111/66 (81) 97 07/06/20 04:00 98.1 90 16 98/61 (73) 96 07/06/20 00:00 98.2 87 18 93/60 (71) 96 07/05/20 21:06 76 120/65 07/05/20 21:00 Room Air 07/05/20 20:00 98.0 76 17 120/65 (83) 96 Intake and Output 07/05/20 07/06/20 19:00 07:00 Intake Total 450 ml 1100 ml Output Total 600 ml Balance 450 ml 500 ml Free Water 250 ml 500 ml IV Total 50 ml Tube Feeding 200 ml 550 ml Output Urine Total 600 ml # Voids 1 # Bowel Movements 1 General Appearance: cachetic HEENT: normocephalic, atraumatic Respiratory: chest wall non-tender, normal breath sounds Cardiovascular: normal peripheral pulses, normal rate, JVD Abdomen: normal bowel sounds, hyperactive bowel sounds Genitourinary: normal external genitalia Extremities: no clubbing Skin: no lesions Neurologic: rn transitional II-XII grossly normal Lymphatic: no neck adenopathy Laboratory Tests 07/06/20 09:55: White Blood Count 6.1, Red Blood Count 3.68L, Hemoglobin 10.5L, Hematocrit 34.0L , Mean Corpuscular Volume 92, Mean Corpuscular Hemoglobin 28.4, Mean Corpuscular Hemoglobin Concent 30.8L, Red Cell Distribution Width 15.9H, Platelet Count 574H , Mean Platelet Volume 6.8, Neutrophils (%) (Auto) 59.0, Lymphocytes (%) (Auto) 31.4, Monocytes (%) (Auto) 7.5, Eosinophils (%) (Auto) 1.4, Basophils (%) (Auto) 0.8, Sodium Level 145, Potassium Level 4.8, Chloride Level 108H, Carbon Dioxide Level 30, Anion Gap 7, Blood Urea Nitrogen 30H, Creatinine 1.0, Estimat Glomerular Filtration Rate > 60, Glucose Level 188H, Calcium Level 9.1 Current Medications Medications (Trade) Dose Ordered Sig/Debi Route PRN Reason Start Time Stop Time Status Last Admin Dose Admin Acetaminophen (Tylenol) 650 mg Q6H PRN GT Temperature >100.4 07/01/20 17:45 07/31/20 17:44 Aspirin (ASA) 81 mg DAILY GT 06/28/20 09:00 07/17/20 08:59 07/06/20 08:25 Cefazolin Sodium 50 ml @ 100 mls/hr Q8H IV 07/05/20 18:00 07/26/20 17:59 07/06/20 17:37 Chlorhexidine Gluconate (Jazmin-Hex 2%) 1 applic DAILY@2000 TOPIC 07/05/20 20:00 10/03/20 19:59 Dextrose (Dextrose 50%) 25 ml Q30M PRN IV Hypoglycemia 06/27/20 10:30 09/20/20 06:59 Dextrose (Dextrose 50%) 50 ml Q30M PRN IV Hypoglycemia 06/27/20 10:30 09/20/20 06:59 Famotidine (Pepcid) 20 mg BID GT 06/27/20 18:00 09/01/20 17:59 07/06/20 17:37 Heparin Sodium (Porcine) (Heparin 5000 units/ml) 5,000 units EVERY 12 HOURS SUBQ 06/27/20 21:00 07/17/20 08:59 07/06/20 08:27 Heparin Sodium/ Sodium Chloride (Heparin 1000 units/500ml Premix) 1,000 unit ONCE PRN IV PICC ORDER 07/06/20 11:45 07/08/20 23:59 Insulin Aspart (NovoLOG) Q6HR SUBQ 06/27/20 12:00 09/09/20 17:59 07/06/20 17:44 Insulin Detemir (Levemir) 8 units EVERY 12 HOURS SUBQ 07/05/20 09:00 09/09/20 20:59 07/06/20 08:28 Lidocaine HCl (Xylocaine 1% 30ml) 30 ml ONCE PRN INJ PICC ORDER 07/06/20 11:45 07/08/20 23:59 Metoprolol Tartrate (Lopressor) 25 mg Q12HR GT 06/27/20 21:00 09/20/20 08:59 07/05/20 21:06 Midodrine (Pro-Amatine) 2.5 mg TIDPRN PRN GT blood pressure below 100 sbp 06/27/20 11:00 09/11/20 10:59 Vancomycin HCl (Firvanq) 125 mg FOUR TIMES A DAY GT 06/28/20 13:00 07/12/20 23:59 07/06/20 17:37 Assessment/Plan Problems: (1) Clostridium difficile colitis (2) Staphylococcus aureus bacteremia (3) Sepsis (4) Multiple drug resistant organism (MDRO) culture positive (5) Hypernatremia (6) History of CVA (cerebrovascular accident) (7) History of hypertension (8) Parkinson disease (9) Severe protein-calorie malnutrition (10) Feeding by G-tube (11) Diabetes mellitus Assessment/Plan new picc line is in wbc is normal today C-diff positive Na is still high still low grade temp repeat all cultures , Urine has proteus,,MDR COVID Negative sliding scale all reviewed, symptomatic treatment dvt prophylaxis Latanya Mckeon MD Jul 06, 2020 17:47
--- NOTE | 2020-07-06 17:51 | Infectious Diseases Prog Note ---
Assessment/Plan 79yo M with: COVID19 neg (06/01 rapid COVID PCR neg) Sespsis, recurrent MSSA bacteremia- - ?from PNA- low grade, no vegetations on 2d echo- .endocarditis cannot be excluded UTI, recurrent Probable PNA -07/04 CXR: Lungs and pleural spaces remain clear. -06/29 CT c/abd/p w/ : Patchy opacities in the left lower lobe which may be related to subsegmental atelectasis versus developing pneumonia. Indwelling Adams catheter. Bladder wall thickening cystitis not excluded. Mild distention of the bladder despite the Adams catheter. Markedly enlarged and heterogeneous prostate which may be on the basis of BPH. Nonobstructing left renal stone. Marked thickening of the wall of the rectum and distal sigmoid colon suggesting a proctitis. Interval decrease in rectal stool burden. Moderate stool burden in t he remainder of the upstream colon. Sacral decubitus ulcer. No organized/drainable subcutaneous fluid collection noted in this region. -06/27 Bcx Neg -06/23 Bcx Neg 2d echo no vegetations seen -06/21 rapid COVID PCR neg u/a wbc 5-10,nit neg, leuk +3; ucx >100k ESBL P.mirabilis Bx 12/15 MSSA CXR No acute process. Cdiff colitis -06/27 Cdif toxin a/b + Fever, recurrent; SP Leukocytosis, recurrent; SP KELLY, improving UTI, sp rx 06/01 UA w/ pyuria, UCx + P Mirabilis ESBL 06/01 BCx Neg 06/01 CXR: No acute process COVID rapid test neg H/o ESBL Proteus in UCx in Oct 2019 Renal US w/ BL cysts PMH: DM2 Parkinson's dementia Bedridden G-tube Plan: PO Vancomycin # 06/27 for cdiff Ancef #9 (abx d ) for MSSA bactremia 06/27 SP Ertapenem #4, IV Vancomycin #7 06/24 SP MEropenem #4 06/10 SP audra #8 06/02 SP erta #1 06/01 SP cefepime, vanco, flagyl x1 in ED Monitor CBC/BMP Recomended ELMO- but unable to obtained consent; will treat presume endocarditis with 6 weeks course. PICC line- patient need termite control technician access for treatment of pressured endocarditis; patient cannot provide consent but this procedure is medically necessary for continuation of treatment. D/w RN and Dr Breen Thank you for this consult. [facility] will continue to follow. Subjective Allergies: Coded Allergies: No Known Allergies (Unverified , 08/27/19) afebrile at RA no leukocytosis sp PICC line Objective Last 24 Hour Vital Signs Date Time Temp Pulse Resp B/P (MAP) Pulse Ox O2 Delivery O2 Flow Rate FiO2 07/06/20 16:00 97.1 78 18 119/76 (90) 96 07/06/20 12:00 97.8 79 17 110/70 (83) 95 07/06/20 09:00 72 111/66 07/06/20 09:00 Room Air 07/06/20 08:00 97.3 72 19 111/66 (81) 97 07/06/20 04:00 98.1 90 16 98/61 (73) 96 07/06/20 00:00 98.2 87 18 93/60 (71) 96 07/05/20 21:06 76 120/65 07/05/20 21:00 Room Air 07/05/20 20:00 98.0 76 17 120/65 (83) 96 Height (Feet): 5 Height (Inches): 5.00 Weight (Pounds): 123 GENERAL: no apparent distress. CHEST: Lungs are clear to auscultation bilaterally without wheezes or rales. CARDIOVASCULAR: regular rhythm. S1, S2 are normal without murmurs, rubs, or gallops. ABDOMEN: Soft, nontender, and nondistended. Positive bowel sounds. No evidence of hepatosplenomegaly. EXTREMITIES: Negative for clubbing, cyanosis, or edema. Laboratory Tests Test 07/06/20 09:55 White Blood Count 6.1 K/UL (4.8-10.8) Red Blood Count 3.68 M/UL (4.70-6.10) L Hemoglobin 10.5 G/DL (14.2-18.0) L Hematocrit 34.0 % (42.0-52.0) L Mean Corpuscular Volume 92 FL (80-99) Mean Corpuscular Hemoglobin 28.4 PG (27.0-31.0) Mean Corpuscular Hemoglobin Concent 30.8 G/DL (32.0-36.0) L Red Cell Distribution Width 15.9 % (11.6-14.8) H Platelet Count 574 K/UL (150-450) H Mean Platelet Volume 6.8 FL (6.5-10.1) Neutrophils (%) (Auto) 59.0 % (45.0-75.0) Lymphocytes (%) (Auto) 31.4 % (20.0-45.0) Monocytes (%) (Auto) 7.5 % (1.0-10.0) Eosinophils (%) (Auto) 1.4 % (0.0-3.0) Basophils (%) (Auto) 0.8 % (0.0-2.0) Sodium Level 145 MMOL/L (136-145) Potassium Level 4.8 MMOL/L (3.5-5.1) Chloride Level 108 MMOL/L (98-107) H Carbon Dioxide Level 30 MMOL/L (21-32) Anion Gap 7 mmol/L (5-15) Blood Urea Nitrogen 30 mg/dL (7-18) H Creatinine 1.0 MG/DL (0.55-1.30) Estimat Glomerular Filtration Rate > 60 mL/min (>60) Glucose Level 188 MG/DL (74-106) H Calcium Level 9.1 MG/DL (8.5-10.1) Current Medications Medications (Trade) Dose Ordered Sig/Debi Route PRN Reason Start Time Stop Time Status Last Admin Dose Admin Acetaminophen (Tylenol) 650 mg Q6H PRN GT Temperature >100.4 07/01/20 17:45 07/31/20 17:44 Aspirin (ASA) 81 mg DAILY GT 06/28/20 09:00 07/17/20 08:59 07/06/20 08:25 Cefazolin Sodium 50 ml @ 100 mls/hr Q8H IV 07/05/20 18:00 07/26/20 17:59 07/06/20 17:37 Chlorhexidine Gluconate (Jazmin-Hex 2%) 1 applic DAILY@2000 TOPIC 07/05/20 20:00 10/03/20 19:59 Dextrose (Dextrose 50%) 25 ml Q30M PRN IV Hypoglycemia 06/27/20 10:30 09/20/20 06:59 Dextrose (Dextrose 50%) 50 ml Q30M PRN IV Hypoglycemia 06/27/20 10:30 09/20/20 06:59 Famotidine (Pepcid) 20 mg BID GT 06/27/20 18:00 09/01/20 17:59 07/06/20 17:37 Heparin Sodium (Porcine) (Heparin 5000 units/ml) 5,000 units EVERY 12 HOURS SUBQ 06/27/20 21:00 07/17/20 08:59 07/06/20 08:27 Heparin Sodium/ Sodium Chloride (Heparin 1000 units/500ml Premix) 1,000 unit ONCE PRN IV PICC ORDER 07/06/20 11:45 07/08/20 23:59 Insulin Aspart (NovoLOG) Q6HR SUBQ 06/27/20 12:00 09/09/20 17:59 07/06/20 17:44 Insulin Detemir (Levemir) 8 units EVERY 12 HOURS SUBQ 07/05/20 09:00 09/09/20 20:59 07/06/20 08:28 Lidocaine HCl (Xylocaine 1% 30ml) 30 ml ONCE PRN INJ PICC ORDER 07/06/20 11:45 07/08/20 23:59 Metoprolol Tartrate (Lopressor) 25 mg Q12HR GT 06/27/20 21:00 09/20/20 08:59 07/05/20 21:06 Midodrine (Pro-Amatine) 2.5 mg TIDPRN PRN GT blood pressure below 100 sbp 06/27/20 11:00 09/11/20 10:59 Vancomycin HCl (Firvanq) 125 mg FOUR TIMES A DAY GT 06/28/20 13:00 07/12/20 23:59 07/06/20 17:37 Blaire Greenwood M.D. Jul 06, 2020 17:51
--- NOTE | 2020-07-06 18:46 | Diagnostic Imaging Report ---
Indications: Needs long-term IV access Technique: Ultrasound confirms patent compressible left brachial vein. Total sterile technique, including sterile probe cover and sterile gel, hat, mask, sterile gown, large sterile drape, and preparation with 2% chlorhexidine utilized. Local anesthesia with 1% lidocaine. Under real-time ultrasound guidance, puncture great vein using 21-gauge needle, documented and archived, passage 0.018 guidewire under direct fluoroscopy, which was used to determine appropriate catheter length, exchange for 4 [place] peel-away sheath. 4 [place] Bard dual-lumen power PICC cut to 40 cm. It was inserted through the peel-away sheath. Peel-away sheath and guidewire removed. Catheter fixed to the skin. Both catheter ports aspirated and flushed. Patient tolerated procedure well, without immediate complication. Digital radiograph documents satisfactory catheter tip position, at the cavoatrial junction. Total fluoroscopy time 13.1 seconds. Total dose area product [id number] [id number] Total number of images: 1 Impression: Successful placement of left arm PICC under sonographic and fluoroscopic guidance, as described above.
--- NOTE | 2020-07-06 18:50 | Internal Med Progress Note ---
Subjective Date of Service: Jul 06, 2020 Physician Name CobbTello Attending Physician Cirilo Rome MD Current Medications Medications (Trade) Dose Ordered Sig/Debi Route PRN Reason Start Time Stop Time Status Last Admin Dose Admin Acetaminophen (Tylenol) 650 mg Q6H PRN GT Temperature >100.4 07/01/20 17:45 07/31/20 17:44 Aspirin (ASA) 81 mg DAILY GT 06/28/20 09:00 07/17/20 08:59 07/06/20 08:25 Cefazolin Sodium 50 ml @ 100 mls/hr Q8H IV 07/05/20 18:00 07/26/20 17:59 07/06/20 17:37 Chlorhexidine Gluconate (Jazmin-Hex 2%) 1 applic DAILY@2000 TOPIC 07/05/20 20:00 10/03/20 19:59 Dextrose (Dextrose 50%) 25 ml Q30M PRN IV Hypoglycemia 06/27/20 10:30 09/20/20 06:59 Dextrose (Dextrose 50%) 50 ml Q30M PRN IV Hypoglycemia 06/27/20 10:30 09/20/20 06:59 Famotidine (Pepcid) 20 mg BID GT 06/27/20 18:00 09/01/20 17:59 07/06/20 17:37 Heparin Sodium (Porcine) (Heparin 5000 units/ml) 5,000 units EVERY 12 HOURS SUBQ 06/27/20 21:00 07/17/20 08:59 07/06/20 08:27 Heparin Sodium/ Sodium Chloride (Heparin 1000 units/500ml Premix) 1,000 unit ONCE PRN IV PICC ORDER 07/06/20 11:45 07/08/20 23:59 Insulin Aspart (NovoLOG) Q6HR SUBQ 06/27/20 12:00 09/09/20 17:59 07/06/20 17:44 Insulin Detemir (Levemir) 8 units EVERY 12 HOURS SUBQ 07/05/20 09:00 09/09/20 20:59 07/06/20 08:28 Lidocaine HCl (Xylocaine 1% 30ml) 30 ml ONCE PRN INJ PICC ORDER 07/06/20 11:45 07/08/20 23:59 Metoprolol Tartrate (Lopressor) 25 mg Q12HR GT 06/27/20 21:00 09/20/20 08:59 07/05/20 21:06 Midodrine (Pro-Amatine) 2.5 mg TIDPRN PRN GT blood pressure below 100 sbp 06/27/20 11:00 09/11/20 10:59 Vancomycin HCl (Firvanq) 125 mg FOUR TIMES A DAY GT 06/28/20 13:00 07/12/20 23:59 07/06/20 17:37 Allergies: Coded Allergies: No Known Allergies (Unverified , 08/27/19) Subjective 79 YO M admitted with hyperglycemia and hypernatremia. Now UTI. Cover for Int Med-Dr Rome Objective Last Vital Signs Date Time Temp Pulse Resp B/P (MAP) Pulse Ox O2 Delivery O2 Flow Rate FiO2 07/06/20 16:00 97.1 78 18 119/76 (90) 96 07/06/20 09:00 Room Air Laboratory Tests Test 07/06/20 09:55 07/06/20 17:36 White Blood Count 6.1 K/UL (4.8-10.8) Red Blood Count 3.68 M/UL (4.70-6.10) L Hemoglobin 10.5 G/DL (14.2-18.0) L Hematocrit 34.0 % (42.0-52.0) L Mean Corpuscular Volume 92 FL (80-99) Mean Corpuscular Hemoglobin 28.4 PG (27.0-31.0) Mean Corpuscular Hemoglobin Concent 30.8 G/DL (32.0-36.0) L Red Cell Distribution Width 15.9 % (11.6-14.8) H Platelet Count 574 K/UL (150-450) H Mean Platelet Volume 6.8 FL (6.5-10.1) Neutrophils (%) (Auto) 59.0 % (45.0-75.0) Lymphocytes (%) (Auto) 31.4 % (20.0-45.0) Monocytes (%) (Auto) 7.5 % (1.0-10.0) Eosinophils (%) (Auto) 1.4 % (0.0-3.0) Basophils (%) (Auto) 0.8 % (0.0-2.0) Sodium Level 145 MMOL/L (136-145) Potassium Level 4.8 MMOL/L (3.5-5.1) Chloride Level 108 MMOL/L (98-107) H Carbon Dioxide Level 30 MMOL/L (21-32) Anion Gap 7 mmol/L (5-15) Blood Urea Nitrogen 30 mg/dL (7-18) H Creatinine 1.0 MG/DL (0.55-1.30) Estimat Glomerular Filtration Rate > 60 mL/min (>60) Glucose Level 188 MG/DL (74-106) H Calcium Level 9.1 MG/DL (8.5-10.1) POC Whole Blood Glucose Pending Intake and Output 07/05/20 07/06/20 19:00 07:00 Intake Total 450 ml 1100 ml Output Total 600 ml Balance 450 ml 500 ml Free Water 250 ml 500 ml IV Total 50 ml Tube Feeding 200 ml 550 ml Output Urine Total 600 ml # Voids 1 # Bowel Movements 1 Objective PHYSICAL EXAMINATION: GENERAL: The patient is a well-developed, well-nourished, thin-appearing, male, in no apparent distress. HEENT: Eyes, pupils equal and responsive to light and accommodation. Extraocular movements are intact. NECK: Supple without lymphadenopathy. CHEST: Lungs are clear to auscultation bilaterally without wheezes or rales. CARDIOVASCULAR: Slightly tachycardic, regular rhythm. S1, S2 are normal without murmurs, rubs, or gallops. ABDOMEN: Soft, nontender, and nondistended. Positive bowel sounds. No evidence of hepatosplenomegaly. Currently, no rebound or guarding noted. EXTREMITIES: Negative for clubbing, cyanosis, or edema. RECTAL: Not performed. GENITAL: Not performed. NEUROLOGIC: Cranial nerves II through XII are grossly intact without focal deficits. Assessment/Plan Assessment/Plan ASSESSMENT: This is a 79-year-old male with: 1. Hyperglycemia. 2. Hypernatremia. 3. Urinary tract infection=MDR proteus. 4. Diabetes type 2. 5. Hypertension. 6. Hypercholesterolemia. 7. Dysphagia. 8. Parkinson disease. 9. Ulcerative proctitis. 10. Protein-calorie malnutrition. 11. History of sacral decubitus ulcer stage IV. 12. Benign prostatic hypertrophy. 13. Gastroesophageal reflux disease. 14. Metabolic encephalopathy. 15. History of left hip fracture. 16. sepsis=staph aureus TREATMENT: 1. Hyperglycemia/diabetes. The patient has been placed on a protocol using NovoLog sliding scale. The patient's blood sugars have been running in 300s. Hyperglycemia may be secondary to urinary tract infection. 2. Urinary tract infection. Urine culture =MDR proteus. ABX= cefazolin and vancomycin results.ID=Dr Oliva 3. Hypertension. Continue amlodipine as above. 4. Hypercholesterolemia. Continue atorvastatin as above. 5. Dysphagia. The patient is status post PEG placement. 6. Parkinson disease. Continue amantadine as above. 7. Ulcerative proctitis. 8. Protein-calorie malnutrition. 9. Sacral decubitus ulcer stage IV. 10. Benign prostatic hypertrophy. Continue tamsulosin as above. 11. Gastroesophageal reflux disease. 12. Metabolic encephalopathy. 13. History of left hip fracture. 14. R/O endocarditis Tello Cobb MD Jul 06, 2020 18:50
--- NOTE | 2020-07-06 19:24 | NUR ---
NURSE HAND-OFF: Important Events on Shift: s/p PICC line insertion BARRERA Patient Status: stable Diet: GT Glucerna 1.5 50cc H20 flush 250 cc every 8 hours Pending Orders: n/a Pending Results/Labs:n/a Pending MD notification:n/a Latest Vital Signs: Temperature 97.1 , Pulse 78 , B/P 119 /76 , Respiratory Rate 18 , O2 SAT 96 , Room Air, O2 Flow Rate 3.0 . Vital Sign Comment: Latest Lane Fall Score: 55 Fall Risk: High Risk Safety Measures: Call light Within Reach, Bed Alarm Zone 1, Side Rails Side Rails x3, Bed position Low and Locked. Fall Precautions: Yellow Socks Yellow Gown Door Sign Report given to JOHNNY Mares.
--- NOTE | 2020-07-06 19:36 | NUR ---
NURSE NOTES: Pt. received from JOHNNY Joyce. Pt. awake, alert to name only, breathing even and unlabored on room air, no indications of pain, no indications of respiratory distress at this time. New PICC inserted today 07/06, dressing CDI, TKO. Bryan noted intact and draining yellow urine well. Gtube running with glucerna 1.5 at 50cc/hr. Bed is low and locked, head of bed elevated, side rails x3 up, bed alarm active, and call light in reach.
[2020-07-06 20:00] VITALS: BP 124/68
[2020-07-06] MEDS: Dyna-Hex 2% Top Sol 2oz TOPIC SCH (20:27)
[2020-07-07] VITALS: BP 102/57
[2020-07-07] MEDS: NovoLOG Insulin Flexpen SUBQ SCH ×4 (00:15→17:16)
[2020-07-07] MEDS: ceFAZolin 2gm/50ml Premix 50 ML IV SCH ×3 (02:37→17:15)
[2020-07-07 04:00] VITALS: BP 94/48
--- NOTE | 2020-07-07 05:00 | NUR ---
NURSE NOTES: Pt. PICC dressing noted to not be intact, dressing was changed and biopatch applied.
--- NOTE | 2020-07-07 05:46 | NUR ---
NURSE NOTES: Pt. with moderate loose BM, sacral dressing changed.
[2020-07-07 06:27] LABS: BASOPHILS % (AUTO) 0.6 % (0.0-2.0); EOSINOPHILS % (AUTO) 1.3 % (0.0-3.0); HEMATOCRIT 33.4 % (42.0-52.0); HEMOGLOBIN 10.5 G/DL (14.2-18.0); LYMPHOCYTES % (AUTO) 34.8 % (20.0-45.0); MEAN CORPUSCULAR VOLUME 93 FL (80-99); MONOCYTES % (AUTO) 4.9 % (1.0-10.0); NEUTROPHILS % (AUTO) 58.4 % (45.0-75.0); PLATELET COUNT 605 K/UL (150-450); RED BLOOD COUNT 3.57 M/UL (4.70-6.10); RED CELL DISTRIBUTION WIDTH 15.9 % (11.6-14.8); WHITE BLOOD COUNT 7.8 K/UL (4.8-10.8)
--- NOTE | 2020-07-07 06:28 | General Progress Note ---
Subjective ROS Limited/Unobtainable: Yes Allergies: Coded Allergies: No Known Allergies (Unverified , 08/27/19) Subjective events noted and interval notes reviewed glucose values are stable Item Value Date Time Bedside Blood Glucose 175 mg/dl H 07/07/20 0510 Bedside Blood Glucose 166 mg/dl H 07/07/20 0015 Bedside Blood Glucose 193 mg/dl H 07/06/20 2035 Bedside Blood Glucose 149 mg/dl H 07/06/20 1800 Bedside Blood Glucose 178 mg/dl H 07/06/20 1214 Bedside Blood Glucose 158 mg/dl H 07/06/20 0828 Bedside Blood Glucose 164 mg/dl H 07/06/20 0545 Bedside Blood Glucose 187 mg/dl H 07/06/20 0022 Objective Last 24 Hour Vital Signs Date Time Temp Pulse Resp B/P (MAP) Pulse Ox O2 Delivery O2 Flow Rate FiO2 07/07/20 00:00 97.6 90 20 102/57 (72) 96 07/06/20 21:00 Room Air 07/06/20 20:28 72 124/68 07/06/20 20:00 98.2 72 20 124/68 (86) 94 07/06/20 16:00 97.1 78 18 119/76 (90) 96 07/06/20 12:00 97.8 79 17 110/70 (83) 95 07/06/20 09:00 72 111/66 07/06/20 09:00 Room Air 07/06/20 08:00 97.3 72 19 111/66 (81) 97 Intake and Output 07/06/20 07/07/20 18:59 06:59 Intake Total 400 ml 50 ml Balance 400 ml 50 ml Free Water 250 ml IV Total 50 ml Tube Feeding 150 ml Laboratory Tests 07/06/20 09:55: White Blood Count 6.1, Red Blood Count 3.68L, Hemoglobin 10.5L, Hematocrit 34.0L , Mean Corpuscular Volume 92, Mean Corpuscular Hemoglobin 28.4, Mean Corpuscular Hemoglobin Concent 30.8L, Red Cell Distribution Width 15.9H, Platelet Count 574H , Mean Platelet Volume 6.8, Neutrophils (%) (Auto) 59.0, Lymphocytes (%) (Auto) 31.4, Monocytes (%) (Auto) 7.5, Eosinophils (%) (Auto) 1.4, Basophils (%) (Auto) 0.8, Sodium Level 145, Potassium Level 4.8, Chloride Level 108H, Carbon Dioxide Level 30, Anion Gap 7, Blood Urea Nitrogen 30H, Creatinine 1.0, Estimat Glomerular Filtration Rate > 60, Glucose Level 188H, Calcium Level 9.1 07/06/20 17:36: POC Whole Blood Glucose [Pending] 07/06/20 20:26: POC Whole Blood Glucose [Pending] 07/07/20 00:06: POC Whole Blood Glucose [Pending] 07/07/20 04:15: White Blood Count [Pending], Red Blood Count [Pending], Hemoglobin [Pending], Hematocrit [Pending], Mean Corpuscular Volume [Pending], Mean Corpuscular Hemogl obin [Pending], Mean Corpuscular Hemoglobin Concent [Pending], Red Cell Distribution Width [Pending], Platelet Count [Pending], Mean Platelet Volume [Pending], Neutrophils (%) (Auto) [Pending], Lymphocytes (%) (Auto) [Pending], Monocytes (%) (Auto) [Pending], Eosinophils (%) (Auto) [Pending], Basophils (%) (Auto) [Pending], Sodium Level [Pending], Potassium Level [Pending], Chloride Level [Pending], Carbon Dioxide Level [Pending], Blood Urea Nitrogen [Pending], Creatinine [Pending], Estimat Glomerular Filtration Rate [Pending], Glucose Level [Pending], Calcium Level [Pending] Height (Feet): 5 Height (Inches): 5.00 Weight (Pounds): 123 General Appearance: no apparent distress Neck: normal alignment Respiratory/Chest: lungs clear Abdomen: normal bowel sounds Pelvis: normal external exam Objective Current Medications Medications (Trade) Dose Ordered Sig/Debi Route PRN Reason Start Time Stop Time Status Last Admin Dose Admin Acetaminophen (Tylenol) 650 mg Q6H PRN GT Temperature >100.4 07/01/20 17:45 07/31/20 17:44 Aspirin (ASA) 81 mg DAILY GT 06/28/20 09:00 07/17/20 08:59 07/06/20 08:25 Cefazolin Sodium 50 ml @ 100 mls/hr Q8H IV 07/05/20 18:00 07/26/20 17:59 07/07/20 02:37 Chlorhexidine Gluconate (Jazmin-Hex 2%) 1 applic DAILY@2000 TOPIC 07/05/20 20:00 10/03/20 19:59 07/06/20 20:27 Dextrose (Dextrose 50%) 25 ml Q30M PRN IV Hypoglycemia 06/27/20 10:30 09/20/20 06:59 Dextrose (Dextrose 50%) 50 ml Q30M PRN IV Hypoglycemia 06/27/20 10:30 09/20/20 06:59 Famotidine (Pepcid) 20 mg BID GT 06/27/20 18:00 09/01/20 17:59 07/06/20 17:37 Heparin Sodium (Porcine) (Heparin 5000 units/ml) 5,000 units EVERY 12 HOURS SUBQ 06/27/20 21:00 07/17/20 08:59 07/06/20 20:34 Heparin Sodium/ Sodium Chloride (Heparin 1000 units/500ml Premix) 1,000 unit ONCE PRN IV PICC ORDER 07/06/20 11:45 07/08/20 23:59 Insulin Aspart (NovoLOG) Q6HR SUBQ 06/27/20 12:00 09/09/20 17:59 07/07/20 05:10 Insulin Detemir (Levemir) 8 units EVERY 12 HOURS SUBQ 07/05/20 09:00 09/09/20 20:59 07/06/20 20:35 Lidocaine HCl (Xylocaine 1% 30ml) 30 ml ONCE PRN INJ PICC ORDER 07/06/20 11:45 07/08/20 23:59 Metoprolol Tartrate (Lopressor) 25 mg Q12HR GT 06/27/20 21:00 09/20/20 08:59 07/06/20 20:28 Midodrine (Pro-Amatine) 2.5 mg TIDPRN PRN GT blood pressure below 100 sbp 06/27/20 11:00 09/11/20 10:59 Vancomycin HCl (Firvanq) 125 mg FOUR TIMES A DAY GT 06/28/20 13:00 07/12/20 23:59 07/06/20 20:27 Assessment/Plan Problem List: (1) Hypernatremia ICD Codes: E87.0 - Hyperosmolality and hypernatremia SNOMED: 259789329 (2) Feeding by G-tube ICD Codes: Z93.1 - Gastrostomy status SNOMED: 045122329, 082146558, 977289807 (3) Diabetes mellitus ICD Codes: E11.9 - Type 2 diabetes mellitus without complications SNOMED: 84394272 (4) History of CVA (cerebrovascular accident) ICD Codes: Z86.73 - Personal history of transient ischemic attack (TIA), and cerebral infarction without residual deficits SNOMED: 925193380 (5) Parkinson disease ICD Codes: G20 - Parkinson's disease SNOMED: 29188843 Status: stable, unchanged Assessment/Plan: continue Levemir 8 units bid continue Novolog sliding scale high dose every 6 hours Gregory Pastrana MD Jul 07, 2020 06:28
--- NOTE | 2020-07-07 07:35 | NUR ---
NURSE HAND-OFF: Important Events on Shift:[blood sugars elevated and insulin given as ordered, PICC dressing changed, sacral wound dressing changed] Patient Status: stable Diet: glucerna 1.5 at 50cc Pending Orders: na Pending Results/Labs:na Pending MD notification:na Latest Vital Signs: Temperature 97.7 , Pulse 87 , B/P 94 /48 , Respiratory Rate 20 , O2 SAT 94 , Room Air, O2 Flow Rate 3.0 . Vital Sign Comment: stable Latest Lane Fall Score: 55 Fall Risk: High Risk Safety Measures: Call light Within Reach, Bed Alarm Zone 1, Side Rails Side Rails x3, Bed position Low and Locked. Fall Precautions: Yellow Socks Yellow Gown Door Sign Report given to JOHNNY Roldan.
[2020-07-07 07:42] LABS: ANION GAP 8 mmol/L (5-15); BLOOD UREA NITROGEN 30 mg/dL (7-18); CALCIUM 9.5 MG/DL (8.5-10.1); CARBON DIOXIDE 32 MMOL/L (21-32); CHLORIDE 109 MMOL/L (98-107); CREATININE 1.1 MG/DL (0.55-1.30); POTASSIUM 4.3 MMOL/L (3.5-5.1); SODIUM 148 MMOL/L (136-145)
[2020-07-07 08:00] VITALS: BP 121/60
--- NOTE | 2020-07-07 08:05 | NUR ---
NURSE NOTES: Report received from Vishnu TURNER. Patient seen on rounds, AxOx1, pt is aphasic but is able to understand and follow simple commands. No signs of distress or pain. PICC line on BARRERA patent and intact. GT patent and infusing GTF Glucerna 1.5 @ 50ml/hr. Dressing intact on sacrum and bilateral heels. Adams secured and draining well. Bed low and locked, siderails up x2, zone alarms on 1. Will continue to monitor.
[2020-07-07] MEDS: Vancomycin oral 125mg/2.5ml GT SCH ×4 (08:25→21:18)
[2020-07-07] MEDS: Aspirin Baby 81mg GT SCH (08:25)
[2020-07-07] MEDS: Heparin 5000 units/ml inj SUBQ SCH ×2 (08:27→21:17)
[2020-07-07] MEDS: Levemir Flexpen SUBQ SCH ×2 (08:28→21:28)
--- NOTE | 2020-07-07 10:46 | Infectious Diseases Prog Note ---
Assessment/Plan 79yo M with: COVID19 neg (06/01 rapid COVID PCR neg) Sespsis, recurrent MSSA bacteremia- - ?from PNA- low grade, no vegetations on 2d echo- .endocarditis cannot be excluded UTI, recurrent Probable PNA -07/04 CXR: Lungs and pleural spaces remain clear. -06/29 CT c/abd/p w/ : Patchy opacities in the left lower lobe which may be related to subsegmental atelectasis versus developing pneumonia. Indwelling Adams catheter. Bladder wall thickening cystitis not excluded. Mild distention of the bladder despite the Adams catheter. Markedly enlarged and heterogeneous prostate which may be on the basis of BPH. Nonobstructing left renal stone. Marked thickening of the wall of the rectum and distal sigmoid colon suggesting a proctitis. Interval decrease in rectal stool burden. Moderate stool burden in t he remainder of the upstream colon. Sacral decubitus ulcer. No organized/drainable subcutaneous fluid collection noted in this region. -06/27 Bcx Neg -06/23 Bcx Neg 2d echo no vegetations seen -06/21 rapid COVID PCR neg u/a wbc 5-10,nit neg, leuk +3; ucx >100k ESBL P.mirabilis Bx 12/15 MSSA CXR No acute process. Cdiff colitis -06/27 Cdif toxin a/b + Fever, recurrent; SP Leukocytosis, recurrent; SP KELLY, improving UTI, sp rx 06/01 UA w/ pyuria, UCx + P Mirabilis ESBL 06/01 BCx Neg 06/01 CXR: No acute process COVID rapid test neg H/o ESBL Proteus in UCx in Oct 2019 Renal US w/ BL cysts PMH: DM2 Parkinson's dementia Bedridden G-tube Plan: PO Vancomycin # 10/ for cdiff Ancef #9 (abx d ) for MSSA bactremia 06/27 SP Ertapenem #4, IV Vancomycin #7 06/24 SP MEropenem #4 06/10 SP audra #8 06/02 SP erta #1 06/01 SP cefepime, vanco, flagyl x1 in ED Monitor CBC/BMP Recomended ELMO- but unable to obtained consent; will treat presume endocarditis with 6 weeks course. PICC line- patient need fdc access for treatment of pressured endocarditis; patient cannot provide consent but this procedure is medically necessary for continuation of treatment. D/w RN and Dr Breen Thank you for this consult. [facility] will continue to follow. Subjective Allergies: Coded Allergies: No Known Allergies (Unverified , 08/27/19) Afebrile No Leukocytosis Satting well Objective Last 24 Hour Vital Signs Date Time Temp Pulse Resp B/P (MAP) Pulse Ox O2 Delivery O2 Flow Rate FiO2 07/07/20 09:00 Room Air 07/07/20 08:27 84 121/60 07/07/20 08:00 96.8 84 20 121/60 (80) 96 07/07/20 04:00 97.7 87 20 94/48 (63) 94 07/07/20 00:00 97.6 90 20 102/57 (72) 96 07/06/20 21:00 Room Air 07/06/20 20:28 72 124/68 07/06/20 20:00 98.2 72 20 124/68 (86) 94 07/06/20 16:00 97.1 78 18 119/76 (90) 96 07/06/20 12:00 97.8 79 17 110/70 (83) 95 Height (Feet): 5 Height (Inches): 5.00 Weight (Pounds): 123 GEN: NAD HEENT: NCAT, MMM, EOMI Pulm: Equal chest rise and fall B/L, No accessory muscle use ABD: Soft, ND SKIN: Exposed skin with no rash, Normal in color Laboratory Tests Test 07/06/20 11:44 07/06/20 17:36 07/06/20 20:26 07/07/20 00:06 POC Whole Blood Glucose 178 MG/DL (74-106) H Pending Pending Pending Test 07/07/20 04:15 07/07/20 05:08 White Blood Count 7.8 K/UL (4.8-10.8) Red Blood Count 3.57 M/UL (4.70-6.10) L Hemoglobin 10.5 G/DL (14.2-18.0) L Hematocrit 33.4 % (42.0-52.0) L Mean Corpuscular Volume 93 FL (80-99) Mean Corpuscular Hemoglobin 29.4 PG (27.0-31.0) Mean Corpuscular Hemoglobin Concent 31.5 G/DL (32.0-36.0) L Red Cell Distribution Width 15.9 % (11.6-14.8) H Platelet Count 605 K/UL (150-450) H Mean Platelet Volume 7.0 FL (6.5-10.1) Neutrophils (%) (Auto) 58.4 % (45.0-75.0) Lymphocytes (%) (Auto) 34.8 % (20.0-45.0) Monocytes (%) (Auto) 4.9 % (1.0-10.0) Eosinophils (%) (Auto) 1.3 % (0.0-3.0) Basophils (%) (Auto) 0.6 % (0.0-2.0) Sodium Level 148 MMOL/L (136-145) H Potassium Level 4.3 MMOL/L (3.5-5.1) Chloride Level 109 MMOL/L (98-107) H Carbon Dioxide Level 32 MMOL/L (21-32) Anion Gap 8 mmol/L (5-15) Blood Urea Nitrogen 30 mg/dL (7-18) H Creatinine 1.1 MG/DL (0.55-1.30) Estimat Glomerular Filtration Rate > 60 mL/min (>60) Glucose Level 164 MG/DL (74-106) H Calcium Level 9.5 MG/DL (8.5-10.1) POC Whole Blood Glucose 175 MG/DL (74-106) H Current Medications Medications (Trade) Dose Ordered Sig/Edbi Route PRN Reason Start Time Stop Time Status Last Admin Dose Admin Acetaminophen (Tylenol) 650 mg Q6H PRN GT Temperature >100.4 07/01/20 17:45 07/31/20 17:44 Aspirin (ASA) 81 mg DAILY GT 06/28/20 09:00 07/17/20 08:59 07/07/20 08:25 Cefazolin Sodium 50 ml @ 100 mls/hr Q8H IV 07/05/20 18:00 07/26/20 17:59 07/07/20 10:01 Chlorhexidine Gluconate (Jazmin-Hex 2%) 1 applic DAILY@2000 TOPIC 07/05/20 20:00 10/03/20 19:59 07/06/20 20:27 Dextrose (Dextrose 50%) 25 ml Q30M PRN IV Hypoglycemia 06/27/20 10:30 09/20/20 06:59 Dextrose (Dextrose 50%) 50 ml Q30M PRN IV Hypoglycemia 06/27/20 10:30 09/20/20 06:59 Famotidine (Pepcid) 20 mg BID GT 06/27/20 18:00 09/01/20 17:59 07/07/20 08:24 Heparin Sodium (Porcine) (Heparin 5000 units/ml) 5,000 units EVERY 12 HOURS SUBQ 06/27/20 21:00 07/17/20 08:59 07/07/20 08:27 Heparin Sodium/ Sodium Chloride (Heparin 1000 units/500ml Premix) 1,000 unit ONCE PRN IV PICC ORDER 07/06/20 11:45 07/08/20 23:59 Insulin Aspart (NovoLOG) Q6HR SUBQ 06/27/20 12:00 09/09/20 17:59 07/07/20 05:10 Insulin Detemir (Levemir) 8 units EVERY 12 HOURS SUBQ 07/05/20 09:00 09/09/20 20:59 07/07/20 08:28 Lidocaine HCl (Xylocaine 1% 30ml) 30 ml ONCE PRN INJ PICC ORDER 07/06/20 11:45 07/08/20 23:59 Metoprolol Tartrate (Lopressor) 25 mg Q12HR GT 06/27/20 21:00 09/20/20 08:59 07/07/20 08:27 Midodrine (Pro-Amatine) 2.5 mg TIDPRN PRN GT blood pressure below 100 sbp 06/27/20 11:00 09/11/20 10:59 Vancomycin HCl (Firvanq) 125 mg FOUR TIMES A DAY GT 06/28/20 13:00 07/12/20 23:59 07/07/20 08:25 Sonu Sarmiento MD Jul 07, 2020 10:46
[2020-07-07 12:00] VITALS: BP 113/58
--- NOTE | 2020-07-07 12:00 | Pulmonology Progress Note ---
Subjective ROS Limited/Unobtainable: Yes Constitutional: Reports: no symptoms, anorexia HEENT: Repors: no symptoms Respiratory: Reports: no symptoms Cardiovascular: Reports: no symptoms Allergies: Coded Allergies: No Known Allergies (Unverified , 08/27/19) All Systems: reviewed and negative except above Objective Last 24 Hour Vital Signs Date Time Temp Pulse Resp B/P (MAP) Pulse Ox O2 Delivery O2 Flow Rate FiO2 07/07/20 09:00 Room Air 07/07/20 08:27 84 121/60 07/07/20 08:00 96.8 84 20 121/60 (80) 96 07/07/20 04:00 97.7 87 20 94/48 (63) 94 07/07/20 00:00 97.6 90 20 102/57 (72) 96 07/06/20 21:00 Room Air 07/06/20 20:28 72 124/68 07/06/20 20:00 98.2 72 20 124/68 (86) 94 07/06/20 16:00 97.1 78 18 119/76 (90) 96 07/06/20 12:00 97.8 79 17 110/70 (83) 95 Intake and Output 07/06/20 07/07/20 19:00 07:00 Intake Total 400 ml 1100 ml Output Total 1200 ml Balance 400 ml -100 ml Free Water 250 ml 500 ml IV Total 50 ml Tube Feeding 150 ml 550 ml Output Urine Total 1200 ml # Voids 1 # Bowel Movements 1 General Appearance: cachetic HEENT: normocephalic, atraumatic Respiratory: chest wall non-tender, normal breath sounds Cardiovascular: normal peripheral pulses, normal rate, JVD Abdomen: normal bowel sounds, hyperactive bowel sounds Genitourinary: normal external genitalia Extremities: no clubbing Skin: no lesions Neurologic: enamel burner II-XII grossly normal Lymphatic: no neck adenopathy Laboratory Tests 07/06/20 17:36: POC Whole Blood Glucose [Pending] 07/06/20 20:26: POC Whole Blood Glucose [Pending] 07/07/20 00:06: POC Whole Blood Glucose [Pending] 07/07/20 04:15: White Blood Count 7.8, Red Blood Count 3.57L, Hemoglobin 10.5L, Hematocrit 33.4L , Mean Corpuscular Volume 93, Mean Corpuscular Hemoglobin 29.4, Mean Corpuscular Hemoglobin Concent 31.5L, Red Cell Distribution Width 15.9H, Platelet Count 605H, Mean Platelet Volume 7.0, Neutrophils (%) (Auto) 58.4, Lymphocytes (%) (Auto) 34.8, Monocytes (%) (Auto) 4.9, Eosinophils (%) (Auto) 1.3, Basophils (%) (Auto) 0.6, Sodium Level 148H, Potassium Level 4.3, Chloride Level 109H, Carbon Dioxide Level 32, Anion Gap 8, Blood Urea Nitrogen 30H, Creatinine 1.1, Estimat Glomerular Filtration Rate > 60, Glucose Level 164H, Calcium Level 9.5 07/07/20 05:08: POC Whole Blood Glucose 175H Current Medications Medications (Trade) Dose Ordered Sig/Debi Route PRN Reason Start Time Stop Time Status Last Admin Dose Admin Acetaminophen (Tylenol) 650 mg Q6H PRN GT Temperature >100.4 07/01/20 17:45 07/31/20 17:44 Aspirin (ASA) 81 mg DAILY GT 06/28/20 09:00 07/17/20 08:59 07/07/20 08:25 Cefazolin Sodium 50 ml @ 100 mls/hr Q8H IV 07/05/20 18:00 07/26/20 17:59 07/07/20 10:01 Chlorhexidine Gluconate (Jazmin-Hex 2%) 1 applic DAILY@2000 TOPIC 07/05/20 20:00 10/03/20 19:59 07/06/20 20:27 Dextrose (Dextrose 50%) 25 ml Q30M PRN IV Hypoglycemia 06/27/20 10:30 09/20/20 06:59 Dextrose (Dextrose 50%) 50 ml Q30M PRN IV Hypoglycemia 06/27/20 10:30 09/20/20 06:59 Famotidine (Pepcid) 20 mg BID GT 06/27/20 18:00 09/01/20 17:59 07/07/20 08:24 Heparin Sodium (Porcine) (Heparin 5000 units/ml) 5,000 units EVERY 12 HOURS SUBQ 06/27/20 21:00 07/17/20 08:59 07/07/20 08:27 Heparin Sodium/ Sodium Chloride (Heparin 1000 units/500ml Premix) 1,000 unit ONCE PRN IV PICC ORDER 07/06/20 11:45 07/08/20 23:59 Insulin Aspart (NovoLOG) Q6HR SUBQ 06/27/20 12:00 09/09/20 17:59 07/07/20 05:10 Insulin Detemir (Levemir) 8 units EVERY 12 HOURS SUBQ 07/05/20 09:00 09/09/20 20:59 07/07/20 08:28 Lidocaine HCl (Xylocaine 1% 30ml) 30 ml ONCE PRN INJ PICC ORDER 07/06/20 11:45 07/08/20 23:59 Metoprolol Tartrate (Lopressor) 25 mg Q12HR GT 06/27/20 21:00 09/20/20 08:59 07/07/20 08:27 Midodrine (Pro-Amatine) 2.5 mg TIDPRN PRN GT blood pressure below 100 sbp 06/27/20 11:00 09/11/20 10:59 Vancomycin HCl (Firvanq) 125 mg FOUR TIMES A DAY GT 06/28/20 13:00 07/12/20 23:59 07/07/20 08:25 Assessment/Plan Problems: (1) Clostridium difficile colitis Assessment & Plan: still has diarrhea (2) Staphylococcus aureus bacteremia Assessment & Plan: repeat cultures (3) Sepsis (4) Multiple drug resistant organism (MDRO) culture positive (5) Hypernatremia (6) History of CVA (cerebrovascular accident) (7) Parkinson disease (8) Severe protein-calorie malnutrition (9) Feeding by G-tube (10) Diabetes mellitus Assessment/Plan all reviewed new picc line is in wbc is normal today C-diff positive Na is still high still low grade temp repeat all cultures , Urine has proteus,,MDR COVID Negative sliding scale all reviewed, symptomatic treatment dvt prophylaxis dc planning, dc medication are done Latanya Mckeon MD Jul 07, 2020 12:00
[2020-07-07] MEDS ORDERED: CEFAZOLIN2 GM/50 ML IV (12:03)
[2020-07-07] MEDS ORDERED: VANCOMYCIN250 MG/5 M GT (12:03)
[2020-07-07] MEDS ORDERED: NOVOLOG100 UNITS1 SUBQ (12:03)
--- NOTE | 2020-07-07 12:49 | NUR ---
*-*DISCHARGE PLANNED*-* PATIENT HAS BEEN ACCEPTED AND WILL BE DISCHARGED BACK TO: [facility] P: [phone] FOR NURSE TO NURSE REPORT ROOM# 14.[facility] SET FOR 6PM/ 18OOPM S/W KATHY [id number].
--- NOTE | 2020-07-07 13:52 | Nephrology Progress Note ---
Assessment/Plan Problem List: (1) Hypernatremia (2) Sepsis (3) History of CVA (cerebrovascular accident) (4) Parkinson disease (5) Feeding by G-tube (6) Dehydration Assessment KELLY, resolving, serum creatinine of 1.9 now down to 1.2 Hypernatremia, dehydration, free water deficit Sepsis Diabetes mellitus [id number] GT feeding Severe protein calorie malnutrition History of CVA History of hypertension Parkinson's disease Plan July 07: Renal parameters stable. Electrolytes within normal limit. Stable from renal standpoint of view. Discharge planning in process. July 06: No chemistry panel done today. Stable from renal standpoint of view. Medication list reviewed. July 05: Labs reviewed. Renal parameters stable. Continue per consultants. July 04: Labs reviewed. Serum sodium rising again. 1 L D5W ordered. Continue the rest per consultants. July 03: Lab reviewed. Stable renal parameters. Continue per consultants. July 02: Labs reviewed. IV fluids discontinued. Electrolytes within normal range. July 01: Lab reviewed. Serum sodium lowering. Will decrease D5W to 50 cc an hour. Continue per consultants. Meds reviewed. Continue to monitor electrolytes and renal parameters. June 30: Lab reviewed. Serum sodium is lowering. Other electrolytes and renal parameters stable. Continue as is. June 29: Labs reviewed. Discussed with RN. Serum sodium lowering on D5W IV infusion. Patient due for CT scan of the abdomen today. Continue to monitor electrolytes. June 28: Lab reviewed. Discussed with RN. Serum sodium higher. Will start 150 cc an hour D5W. Patient off feeding waiting for a CT of the abdomen. Continue to monitor electrolytes. Try to keep the blood sugar in check. June 27: Lab reviewed. Urine sodium elevated. Renal parameters stable. Continue to administer free water for hypernatremia. June 26: Lab reviewed. Serum sodium higher. Will give D5W bolus. Co ntinue to monitor electrolytes. June 24: Lab reviewed. Renal parameters stable. Will discontinue IV fluid. Continue her consultants. June 23: Labs reviewed. Medication list reviewed. Renal parameters stable. Blood sugar needs better control. Defer to PMD and diesel tractor operator. June 22: Clinically stable. Labs reviewed. Blood sugar elevated. Renal parameters stable. Continue blood sugar management per diesel tractor operator June 21: Patient is febrile today. Abnormal electrolytes addressed. Stable from renal standpoint of view. June 20: No chemistry panel done today. Stable from renal standpoint. Will order chemistry panel tomorrow June 19: Labs reviewed. Phosphorus supplement given. Stable from renal standpoint of view. June 18: Lab reviewed. Serum sodium lower. Creatinine 1.1. Continue current management. June 17: Lab reviewed. Sodium 160. Creatinine 1.3. Calcium lower at 9. Will continue D5W. June 16: Labs reviewed. Renal parameters stable. Serum calcium lowering. Serum sodium lowering. Serum creatinine 1.3. Another 1 L of D5W ordered. June 15: Lab reviewed. Serum sodium high. 1 L D5W given. Serum creatinine 1.4. Pamidronate given yesterday. Continue to monitor serum calcium. June 14: Lab reviewed. Serum calcium high corrected for low serum albumin. 60 mg pamidronate ID given. Continue to monitor renal parameters calcium and phosphorus. June 13: Lab reviewed. Medication list reviewed. Renal parameters stable. Will watch serum calcium and serum sodium. Chemistry panel tomorrow. June 12: Labs reviewed. Stable from renal standpoint of view. June 11: Labs reviewed. Stable renal parameters. June 10: Lab reviewed. Serum potassium normalized. Will give 1 L of D5W for high serum sodium. Continue per consultants. June 09: Labs reviewed. Discussed with RN. Serum potassium elevated. Suspect hemolysis. Will repeat serum potassium. DC all potassium supplements. June 08: Serum sodium higher. Will give 1 L of D5W. Renal parameters stable. Continue to monitor electrolytes. Continue per consultants. June 07: 1 bolus of D5W. Renal parameters stable. Serum sodium slightly high. Stable from renal standpoint of view. June 06: We will again discontinue the IV ordered. Stable from renal standpoint of view. Will start midodrine for low blood pressure. June 05: DC IV fluid. Potassium supplement given. Stable from renal standpoint to view. June 04: Potassium and magnesium supplement IV given, stable from renal standpoint of view. IV fluid D5W Monitor electrolytes Monitor renal parameters Hold blood pressure medication since blood pressure low Per orders, per consultants Subjective ROS Limited/Unobtainable: No Constitutional: Reports: malaise Objective Objective Last 24 Hour Vital Signs Date Time Temp Pulse Resp B/P (MAP) Pulse Ox O2 Delivery O2 Flow Rate FiO2 07/07/20 12:00 96.8 81 20 113/58 (76) 100 07/07/20 09:00 Room Air 07/07/20 08:27 84 121/60 07/07/20 08:00 96.8 84 20 121/60 (80) 96 07/07/20 04:00 97.7 87 20 94/48 (63) 94 07/07/20 00:00 97.6 90 20 102/57 (72) 96 07/06/20 21:00 Room Air 07/06/20 20:28 72 124/68 07/06/20 20:00 98.2 72 20 124/68 (86) 94 07/06/20 16:00 97.1 78 18 119/76 (90) 96 Intake and Output 07/06/20 07/07/20 19:00 07:00 Intake Total 400 ml 1100 ml Output Total 1200 ml Balance 400 ml -100 ml Free Water 250 ml 500 ml IV Total 50 ml Tube Feeding 150 ml 550 ml Output Urine Total 1200 ml # Voids 1 # Bowel Movements 1 Laboratory Tests 07/06/20 17:36: POC Whole Blood Glucose [Pending] 07/06/20 20:26: POC Whole Blood Glucose [Pending] 07/07/20 00:06: POC Whole Blood Glucose [Pending] 07/07/20 04:15: White Blood Count 7.8, Red Blood Count 3.57L, Hemoglobin 10.5L, Hematocrit 33.4L , Mean Corpuscular Volume 93, Mean Corpuscular Hemoglobin 29.4, Mean Corpuscular Hemoglobin Concent 31.5L, Red Cell Distribution Width 15.9H, Platelet Count 605H , Mean Platelet Volume 7.0, Neutrophils (%) (Auto) 58.4, Lymphocytes (%) (Auto) 34.8, Monocytes (%) (Auto) 4.9, Eosinophils (%) (Auto) 1.3, Basophils (%) (Auto) 0.6, Sodium Level 148H, Potassium Level 4.3, Chloride Level 109H, Carbon Dioxide Level 32, Anion Gap 8, Blood Urea Nitrogen 30H, Creatinine 1.1, Estimat Glomerular Filtration Rate > 60, Glucose Level 164H, Calcium Level 9.5 07/07/20 05:08: POC Whole Blood Glucose 175H Height (Feet): 5 Height (Inches): 5.00 Weight (Pounds): 123 General Appearance: no apparent distress Cardiovascular: normal rate Respiratory/Chest: decreased breath sounds Abdomen: soft Objective No change Eddie Nelson MD Jul 07, 2020 13:52
--- NOTE | 2020-07-07 13:54 | Surgery Progress Note ---
Surgery Progress Note Subjective Additional Comments comfortable picc placed no n/v Objective Last 24 Hour Vital Signs Date Time Temp Pulse Resp B/P (MAP) Pulse Ox O2 Delivery O2 Flow Rate FiO2 07/07/20 12:00 96.8 81 20 113/58 (76) 100 07/07/20 09:00 Room Air 07/07/20 08:27 84 121/60 07/07/20 08:00 96.8 84 20 121/60 (80) 96 07/07/20 04:00 97.7 87 20 94/48 (63) 94 07/07/20 00:00 97.6 90 20 102/57 (72) 96 07/06/20 21:00 Room Air 07/06/20 20:28 72 124/68 07/06/20 20:00 98.2 72 20 124/68 (86) 94 07/06/20 16:00 97.1 78 18 119/76 (90) 96 I&O Intake and Output 07/06/20 07/07/20 19:00 07:00 Intake Total 400 ml 1100 ml Output Total 1200 ml Balance 400 ml -100 ml Free Water 250 ml 500 ml IV Total 50 ml Tube Feeding 150 ml 550 ml Output Urine Total 1200 ml # Voids 1 # Bowel Movements 1 Dressing: other Wound: other Cardiovascular: RSR Respiratory: clear Abdomen: soft, non-tender, present bowel sounds Extremities: no edema, no tenderness, no cyanosis Laboratory Tests Test 07/06/20 17:36 07/06/20 20:26 07/07/20 00:06 07/07/20 04:15 POC Whole Blood Glucose Pending Pending Pending White Blood Count 7.8 K/UL (4.8-10.8) Red Blood Count 3.57 M/UL (4.70-6.10) L Hemoglobin 10.5 G/DL (14.2-18.0) L Hematocrit 33.4 % (42.0-52.0) L Mean Corpuscular Volume 93 FL (80-99) Mean Corpuscular Hemoglobin 29.4 PG (27.0-31.0) Mean Corpuscular Hemoglobin Concent 31.5 G/DL (32.0-36.0) L Red Cell Distribution Width 15.9 % (11.6-14.8) H Platelet Count 605 K/UL (150-450) H Mean Platelet Volume 7.0 FL (6.5-10.1) Neutrophils (%) (Auto) 58.4 % (45.0-75.0) Lymphocytes (%) (Auto) 34.8 % (20.0-45.0) Monocytes (%) (Auto) 4.9 % (1.0-10.0) Eosinophils (%) (Auto) 1.3 % (0.0-3.0) Basophils (%) (Auto) 0.6 % (0.0-2.0) Sodium Level 148 MMOL/L (136-145) H Potassium Level 4.3 MMOL/L (3.5-5.1) Chloride Level 109 MMOL/L (98-107) H Carbon Dioxide Level 32 MMOL/L (21-32) Anion Gap 8 mmol/L (5-15) Blood Urea Nitrogen 30 mg/dL (7-18) H Creatinine 1.1 MG/DL (0.55-1.30) Estimat Glomerular Filtration Rate > 60 mL/min (>60) Glucose Level 164 MG/DL (74-106) H Calcium Level 9.5 MG/DL (8.5-10.1) Test 07/07/20 05:08 POC Whole Blood Glucose 175 MG/DL (74-106) H Plan Problems: (1) Hypernatremia (2) Dehydration (3) Hip fracture, left (4) Diabetes mellitus (5) History of hypertension (6) Severe protein-calorie malnutrition Assessment & Plan: DAILY ESTIMATED NEEDS: Needs based on Sepsis, DM/ 54kg 30-40 kcals/kg 1823-3152 total kcals 1.25-2 g protein/kg 68-108 g total protein 25-35ml/kcal mL/kg 8342-3743 total fluid mLs NUTRITION DIAGNOSIS: * Swallowing difficulty R/T dysphagia, as evidenced by Pt is GT dep. (CURRENT TF: Glucerna 1.5 @ 30ml/hr x 24 hrs) ENTERAL NUTRITION RECOMMENDATIONS: Glucerna 1.5 @ 60ml/hr x 20 hrs to provide 1200ml, 1800kcal, 99g prot, 911ml free water, 160g carbs * Rec to INCREASE TF GOAL to 60ml/hr for 20 hrs * HOB over 30 degrees, increased water flushes * TF at goal meets 100% est needs. -------- ADDITIONAL RECOMMENDATIONS: * Calibrated bedscale wt for accurate CBW * Monitor lytes daily w/ TF, replete as needed * Pt may require increase in insulin regimen for improved BG W/ continuous TF infusion * Wound healing: DOMENICA BID, F/up w/ WC eval . (7) Acute encephalopathy (8) Pressure Ulcer Of Sacral Region, Unstageable Assessment & Plan: Pt presented on admission with purple and indurated area at Sacrococcygeal at previously compromised site(L)7cm x (W)3cm.Surrounding Hyperpigmentation at Sacrum. Non-Blanching erythema without fluctuance R heel. Non-Blanching erythema with delineated margins L heel (L)4.5cm x (W)5.5cm. L Heel is boggy . Tx.Plan: Apply Moisture Barrier Paste to Sacrum. Cover with Optifoam drsgs. Change every 3 days and prn. Apply Cavilon Skin Barrier to R and L trochanter. Cover each site with Optifoam drsgs. Change every 7 days and prn. Apply Cavilon Skin Barrier to each heel and malleoli. Cover each site with Optifoam drsgs. Change every 7 days and prn. Reposition at least every 2hours or as tolerated. Off-load heels with pillow. improving cont current care tube site okay (9) Feeding by G-tube (10) Abdominal distention (11) Multiple drug resistant organism (MDRO) culture positive (12) Sepsis (13) History of CVA (cerebrovascular accident) (14) Parkinson disease (15) Staphylococcus aureus bacteremia Assessment & Plan: repeat blood cultures negative on abx unlikely source of bacteremia from wounds. will monitor cont local wound care improving leukocytosis improved case discussed with Infectious disease. patient being treated for bacteremia and requires manager fine dining Abx. currently does not have line for line term abx care plan. PICC line indicated, recommended and medically necessary. patient without POA or next of kin. recommend proceeding with picc for abx therapy given patient with potential meaningful recover and full code. thank you James Breen Jul 07, 2020 13:54
--- NOTE | 2020-07-07 14:06 | Cardiology Report ---
APPROVED REPORT EKG Measurement Heart [id number] <Conclusion> Normal sinus rhythm Cannot rule out Anterior infarct, age undetermined Abnormal ECG
[2020-07-07 16:00] VITALS: BP 115/49
--- NOTE | 2020-07-07 17:30 | Internal Med Progress Note ---
Subjective Date of Service: Jul 07, 2020 Physician Name JordynTello Attending Physician Cirilo Rome MD Current Medications Medications (Trade) Dose Ordered Sig/Debi Route PRN Reason Start Time Stop Time Status Last Admin Dose Admin Acetaminophen (Tylenol) 650 mg Q6H PRN GT Temperature >100.4 07/01/20 17:45 07/31/20 17:44 Aspirin (ASA) 81 mg DAILY GT 06/28/20 09:00 07/17/20 08:59 07/07/20 08:25 Cefazolin Sodium 50 ml @ 100 mls/hr Q8H IV 07/05/20 18:00 07/26/20 17:59 07/07/20 17:15 Chlorhexidine Gluconate (Jazmin-Hex 2%) 1 applic DAILY@2000 TOPIC 07/05/20 20:00 10/03/20 19:59 07/06/20 20:27 Dextrose (Dextrose 50%) 25 ml Q30M PRN IV Hypoglycemia 06/27/20 10:30 09/20/20 06:59 Dextrose (Dextrose 50%) 50 ml Q30M PRN IV Hypoglycemia 06/27/20 10:30 09/20/20 06:59 Famotidine (Pepcid) 20 mg BID GT 06/27/20 18:00 09/01/20 17:59 07/07/20 17:15 Heparin Sodium (Porcine) (Heparin 5000 units/ml) 5,000 units EVERY 12 HOURS SUBQ 06/27/20 21:00 07/17/20 08:59 07/07/20 08:27 Heparin Sodium/ Sodium Chloride (Heparin 1000 units/500ml Premix) 1,000 unit ONCE PRN IV PICC ORDER 07/06/20 11:45 07/08/20 23:59 Insulin Aspart (NovoLOG) Q6HR SUBQ 06/27/20 12:00 09/09/20 17:59 07/07/20 17:16 Insulin Detemir (Levemir) 8 units EVERY 12 HOURS SUBQ 07/05/20 09:00 09/09/20 20:59 07/07/20 08:28 Lidocaine HCl (Xylocaine 1% 30ml) 30 ml ONCE PRN INJ PICC ORDER 07/06/20 11:45 07/08/20 23:59 Metoprolol Tartrate (Lopressor) 25 mg Q12HR GT 06/27/20 21:00 09/20/20 08:59 07/07/20 08:27 Midodrine (Pro-Amatine) 2.5 mg TIDPRN PRN GT blood pressure below 100 sbp 06/27/20 11:00 09/11/20 10:59 Vancomycin HCl (Firvanq) 125 mg FOUR TIMES A DAY GT 06/28/20 13:00 07/12/20 23:59 07/07/20 17:15 Allergies: Coded Allergies: No Known Allergies (Unverified , 08/27/19) ROS Limited/Unobtainable: Yes Subjective 79 YO M admitted with hyperglycemia and hypernatremia. Now UTI. Cover for Int Med-Dr Rome Objective Last Vital Signs Date Time Temp Pulse Resp B/P (MAP) Pulse Ox O2 Delivery O2 Flow Rate FiO2 07/07/20 16:00 97.7 100 20 115/49 (71) 100 07/07/20 09:00 Room Air Laboratory Tests Test 07/06/20 17:36 07/06/20 20:26 07/07/20 00:06 07/07/20 04:15 POC Whole Blood Glucose Pending Pending Pending White Blood Count 7.8 K/UL (4.8-10.8) Red Blood Count 3.57 M/UL (4.70-6.10) L Hemoglobin 10.5 G/DL (14.2-18.0) L Hematocrit 33.4 % (42.0-52.0) L Mean Corpuscular Volume 93 FL (80-99) Mean Corpuscular Hemoglobin 29.4 PG (27.0-31.0) Mean Corpuscular Hemoglobin Concent 31.5 G/DL (32.0-36.0) L Red Cell Distribution Width 15.9 % (11.6-14.8) H Platelet Count 605 K/UL (150-450) H Mean Platelet Volume 7.0 FL (6.5-10.1) Neutrophils (%) (Auto) 58.4 % (45.0-75.0) Lymphocytes (%) (Auto) 34.8 % (20.0-45.0) Monocytes (%) (Auto) 4.9 % (1.0-10.0) Eosinophils (%) (Auto) 1.3 % (0.0-3.0) Basophils (%) (Auto) 0.6 % (0.0-2.0) Sodium Level 148 MMOL/L (136-145) H Potassium Level 4.3 MMOL/L (3.5-5.1) Chloride Level 109 MMOL/L (98-107) H Carbon Dioxide Level 32 MMOL/L (21-32) Anion Gap 8 mmol/L (5-15) Blood Urea Nitrogen 30 mg/dL (7-18) H Creatinine 1.1 MG/DL (0.55-1.30) Estimat Glomerular Filtration Rate > 60 mL/min (>60) Glucose Level 164 MG/DL (74-106) H Calcium Level 9.5 MG/DL (8.5-10.1) Test 07/07/20 05:08 POC Whole Blood Glucose 175 MG/DL (74-106) H Intake and Output 07/06/20 07/07/20 19:00 07:00 Intake Total 400 ml 1150 ml Output Total 1200 ml Balance 400 ml -50 ml Free Water 250 ml 500 ml IV Total 50 ml Tube Feeding 150 ml 600 ml Output Urine Total 1200 ml # Voids 1 # Bowel Movements 1 Objective PHYSICAL EXAMINATION: GENERAL: The patient is a well-developed, well-nourished, thin-appearing, male, in no apparent distress. HEENT: Eyes, pupils equal and responsive to light and accommodation. Extraocular movements are intact. NECK: Supple without lymphadenopathy. CHEST: Lungs are clear to auscultation bilaterally without wheezes or rales. CARDIOVASCULAR: Slightly tachycardic, regular rhythm. S1, S2 are normal without murmurs, rubs, or gallops. ABDOMEN: Soft, nontender, and nondistended. Positive bowel sounds. No evidence of hepatosplenomegaly. Currently, no rebound or guarding noted. EXTREMITIES: Negative for clubbing, cyanosis, or edema. RECTAL: Not performed. GENITAL: Not performed. NEUROLOGIC: Cranial nerves II through XII are grossly intact without focal deficits. Assessment/Plan Assessment/Plan ASSESSMENT: This is a 79-year-old male with: 1. Hyperglycemia. 2. Hypernatremia. 3. Urinary tract infection=MDR proteus. 4. Diabetes type 2. 5. Hypertension. 6. Hypercholesterolemia. 7. Dysphagia. 8. Parkinson disease. 9. Ulcerative proctitis. 10. Protein-calorie malnutrition. 11. History of sacral decubitus ulcer stage IV. 12. Benign prostatic hypertrophy. 13. Gastroesophageal reflux disease. 14. Metabolic encephalopathy. 15. History of left hip fracture. 16. sepsis=staph aureus TREATMENT: 1. Hyperglycemia/diabetes. The patient has been placed on a protocol using NovoLog sliding scale. The patient's blood sugars have been running in 300s. Hyperglycemia may be secondary to urinary tract infection. 2. Urinary tract infection. Urine culture =MDR proteus. ABX= cefazolin and vancomycin results.ID=Dr Oliva 3. Hypertension. Continue amlodipine as above. 4. Hypercholesterolemia. Continue atorvastatin as above. 5. Dysphagia. The patient is status post PEG placement. 6. Parkinson disease. Continue amantadine as above. 7. Ulcerative proctitis. 8. Protein-calorie malnutrition. 9. Sacral decubitus ulcer stage IV. 10. Benign prostatic hypertrophy. Continue tamsulosin as above. 11. Gastroesophageal reflux disease. 12. Metabolic encephalopathy. 13. History of left hip fracture. 14. R/O endocarditis 15. discharge to [facility] today Tello Cobb MD Jul 07, 2020 17:30
--- NOTE | 2020-07-07 19:34 | NUR ---
NURSE HAND-OFF: Important Events on Shift: For D/C, report given to SNF, awaiting transportation Patient Status: Stable Diet: GT feed Pending Orders: None Pending Results/Labs:None Pending MD notification:None Latest Vital Signs: Temperature 97.7 , Pulse 100 , B/P 115 /49 , Respiratory Rate 20 , O2 SAT 100 , Room Air, O2 Flow Rate 3.0 . Vital Sign Comment: Latest Lane Fall Score: 55 Fall Risk: High Risk Safety Measures: Call light Within Reach, Bed Alarm Zone 1, Side Rails Side Rails x3, Bed position Low and Locked. Fall Precautions: Yellow Socks Yellow Gown Door Sign Report given to Lucero TURNER.
--- NOTE | 2020-07-07 20:00 | NUR ---
NURSE NOTES: RECEIVED PATIENT LYING IN BED, EYES CLOSED, NON VERBAL, ALL NEEDS ANTICIPATED AND MET BY NURSING STAFF. ASPIRATION PRECAUTIONS OBSERVED/HEAD OF BED ELEVATED. PICC LINE INTACT TO LEFT UPPER ARM/DOUBLE LUMEN, DRESSING CHANGED 07/07. NO SIGNS AND SYMPTOMS OF ACUTE CARDIO RESPIRATORY DISTRESS/SHORTNESS OF BREATH, NO PERIPHERAL EDEMA NOTED. ABDOMEN SOFT/NON DISTENDED/AUDIBLE BOWEL SOUNDS, TOLERATING G TUBE FEEDING, NO GASTRIC RESIDUAL ASPIRATED, NO REPORT OF N/V/D. DRESSING DRY AND INTACT TO SACRAL/BILATERAL HEELS, PICTURES TAKEN AND UPLOADED BY AM NURSE. CHRISTINE CATHETER INTACT/PATENT, DRAINING YELLOW URINE VIA GRAVITY, NO SEDEMENT NOTED. SIDE RAILS UP X3/BED IN LOWEST POSITION FOR SAFETY, FREQUENT ROUNDING FOR SAFETY/NEEDS. DISCHARGE TO [facility], ROOM 14A - REPORT GIVEN TO CHARLES.
[2020-07-07 21:18] VITALS: BP 116/84
[2020-07-07] MEDS: Dyna-Hex 2% Top Sol 2oz TOPIC SCH (21:18)
--- NOTE | 2020-07-07 22:13 | NUR ---
NURSE NOTES: PATIENT DISCHARGED TO [facility], VSS, AFEBRILE, CHRISTINE CATHETER/PICC LINE REMAIN INTACT ORDERED.
--- NOTE | 2020-07-08 10:47 | Discharge Summary ---
Discharge Summary Discharge Summary _ DATE OF ADMISSION: 06/01/2020 DATE OF DISCHARGE: 07/07/2020 DISCHARGED BY: Dr. Rome REASON FOR ADMISSION: 79 years old male, resident of residential facility, with past medical history of hypertension, diabetes mellitus type 2, history of CVA, dysphagia, feeding by G-tube, was sent for evaluation due to fever and abnormal laboratory testing. Patient was tachycardic and hypotensive and hypoxic on admission requiring supplemental oxygen. Urinalysis revealed evidence of urinary tract infection. WBC 13.2, hemoglobin 12.4 , hematocrit 40.9 , platelet count 514. Sodium 157, chloride 117. Anion gap 12. BUN 71, creatinine 1.9. Glucose 609. Stable LFT. Troponin negative. EKG revealed sinus tachycardia, no acute ischemic changes. Albumin 2.3. Lactic acid 6.2, repeated 5.4. Rapid COVID-19 was negative, repe In emergency department patient pancultured, received IV fluids, empiric ant ibiotic and admitted for further management. Patient also was treated with IV insulin for hyperglycemia. CONSULTANTS: employment programs analyst Dr. Kelley pulmonary Dr. Mckeon ID specialist Dr. Greenwood scarrer Dr. Pastrana pedicab driver Dr. Nelson [facility] COURSE: Patient admitted and continued on IV fluids and empiric antibiotics. Supplemental oxygen provided and titrated to keep pulse oximetry above 92% , pulmonary toilet provided . Strict aspiration precautions maintained. Urine culture revealed Proteus mirabilis ESBL. Blood culture were negative. Repeated urine culture on was negative. CT scan of the chest , abdomen and pelvis revealed patchy opacity in the left lower lobe , which may be related to subsegmental atelectasis versus developing pneumonia. Follow-up chest x-ray in 5 days was already negative. Echocardiogram revealed preserved ejection fraction. Blood pressure was managed with beta-renee. Antiplatelet therapy with aspirin continued. Leukocytosis and fever continued. Repeated blood culture on 06/21 revealed Staph aureus and urine culture again revealed Proteus mirabilis ESBL. Antibiotic regimen optimized as per ID specialist recommendation. Repeated blood culture on and were negative. Stool for C. difficile on 06/27 came back positive. Patient started on oral vancomycin for C. difficile colitis. Patient was on cefazolin for MSSA bacteremia . Echocardiogram ( as mentioned above) revealed no evidence of vegetation . ELMO was planned to rule out vegetation, however social media coordinator was unable to locate the family. Per longterm no family emergency contact was listed. ELMO was canceled by employment programs analyst. Decision was made to treat empirically for endocarditis given persistent fever and leukocytosis . ID specialist recommended to treat 6 weeks for presumed endocarditis. PICC line was placed on and patient was discharged on IV Ancef for total of 6 weeks . patient will need to complete additional 25 days of Ancef at the facility, afterward PICC line can be discontinued. Patient will need to continue oral vancomycin for additional 7 days to complete the treatment for C. difficile colitis. Leukocytosis and fevers resolved . Aspiration precaution maintained. G-tube feeding with tube feeding formula and goal rate , as well as the protein supplements provided as per registered dietitian recommendation. Patient was able to tolerate tube feeding. G-tube site care provided. DVT and GI prophylaxis provided. Renal parameters and electrolytes were closely monitored. Electrolytes corrected as needed , nephrotoxic's were avoided. Acute kidney injury resolved : creatinine down to 1.1. Acute kidney injury was most likely due to dehydration. Hypernatremia was also due to dehydration/free water deficit. Sodium down to 148 from from the highest 167 . Renal ultrasound revealed bilateral normal kidney echogenicity. Grossly enlarged prostate. No hydronephrosis. Bilateral renal cyst. Blood sugar was managed as per scarrer recommendation. Insulin doses optimized based on blood sugar reading. Patient was on long-acting Levemir twice a day as well as a sliding scale of insulin high-dose. Metformin stopped upon admission. Lactic acidosis presumably was due to metformin . Last lactic acid level 2.3 . Patient presented on admission with un-stageable pressure ulcer of sacral sacral region. Wound care provided as per surgeon recommendation ; continue wound care at the facility. Patient clinically stabilized and was ready for transfer back to residential facility for continuation of care. FINAL DIAGNOSES: Sepsis MSSA bacteremia presumed to be due to endocarditis UTI with Proteus ESBL , recurrent C. difficile colitis Probably pneumonia Diabetes mellitus [id number] KELLY secondary to dehydration Hypernatremia Dehydration Metabolic encephalopathy Lactic acidosis likely due to metformin BPH GERD Dysphagia , feeding by G-tube Severe protein calorie malnutrition History of CVA Pressure ulcer of sacral region, un-stageable DISCHARGE MEDICATIONS: See Medication Reconciliation list. DISCHARGE INSTRUCTIONS: Patient was discharged to the residential facility. Follow up with medical doctor at the facility. I have been assigned to dictate discharge summary for this account. Kim Mahoney NP Jul 08, 2020 10:47
--- NOTE | 2020-07-08 14:14 | Cardiology Report ---
APPROVED REPORT EKG Measurement Heart [id number] <Conclusion> Poor data quality, interpretation may be adversely affected Suspect arm lead reversal, interpretation assumes no reversal Unusual P axis, possible ectopic atrial tachycardia Right ventricular hypertrophy Anterolateral infarct, age undetermined Abnormal ECG
== END 2020-07-07 22:15 | DRG 871 ==
LOC: EDBD 22:22 → EMR 22:35 → EDBEDREQ 22:55 → 2W 23:00 → EDBEDREQ 23:41 → 2E 06-04 14:05 → 4E 06-06 16:29 → 2E 06-21 23:36 → 4E 06-27 10:29
PROC: B518ZZA Fluoroscopy of Superior Vena Cava, Guidance (ICD-10-PCS; principal; 2020-07-06)
PROC: 02HV33Z Insertion of Infusion Device into Superior Vena Cava, Percutaneous Approach (ICD-10-PCS; principal; 2020-07-06)
DX: A41.01 Sepsis due to Methicillin susceptible Staphylococcus aureus (principal); L89.154 Pressure ulcer of sacral region, stage 4; G93.41 Metabolic encephalopathy; E43 Unspecified severe protein-calorie malnutrition; J18.9 Pneumonia, unspecified organism; K51.20 Ulcerative (chronic) proctitis without complications; N17.9 Acute kidney failure, unspecified; N39.0 Urinary tract infection, site not specified; E87.0 Hyperosmolality and hypernatremia; A04.72 Enterocolitis due to Clostridium difficile, not specified as recurrent; I38 Endocarditis, valve unspecified; N40.0 Benign prostatic hyperplasia without lower urinary tract symptoms; K21.9 Gastro-esophageal reflux disease without esophagitis; G20 Parkinson's disease; E78.00 Pure hypercholesterolemia, unspecified; I10 Essential (primary) hypertension; B96.4 Proteus (mirabilis) (morganii) as the cause of diseases classified elsewhere; Z93.1 Gastrostomy status; E11.65 Type 2 diabetes mellitus with hyperglycemia; R13.10 Dysphagia, unspecified; E86.0 Dehydration; Z68.24 Body mass index [BMI] 24.0-24.9, adult; Z74.01 Bed confinement status; Z86.73 Personal history of transient ischemic attack (TIA), and cerebral infarction without residual deficits; Z20.828 Contact with and (suspected) exposure to other viral communicable diseases
CPT/HCPCS: 36415; 36573; 71045; 71260; 74177; 76770; 76937; 80048; 80053; 80061; 80202; 81001; 81003; 82043; 82550; 82553; 82962; 82977; 83036; 83605; 83735; 83880; 84100; 84132; 84165; 84300; 84443; 84484; 84550; 85007; 85025; 85610; 85651; 85730; 86140; 87040; 87081; 87086; 87181; 87324; 89050; 93005; 93306; 96365; 96368; 96375; 99291; C9399; J1815; J2430; J7030; J8499; S5561; U0002

== ENCOUNTER 2020-09-24 19:03 | Inpatient (IN) | payer MEDICARE, MEDICAID ==
[~2020-09-24] VITALS: Ht 177.8 cm; Wt 81.6 kg
[~2020-09-24 19:03] MED LIST changes: +ACETAMINOPHEN325 M1 GT; +AMANTADINE100 M2 GT; +AMLODIPINE BESY10 MG GT; +CEFAZOLIN2 GM/50 ML IV; +COLACE100 MG GT; +FLOMAX0.4 MG GT; +HYDREA500 MG GT; +METFORMIN HCL1000 M1 GT; +PRAVASTATIN SOD20 M1 GT; +SENNA8.6 M2 GT; +SIMETHICONE80 MG GT; +VANCOMYCIN250 MG/5 M GT; +ZOFRAN4 M3 GT
--- NOTE | 2020-09-24 19:29 | Emergency Room Report ---
History of Present Illness General Chief Complaint: Abnormal Labs Source: EMS (Benny Colby MD) Present Illness HPI Patient is a 80-year-old male who presents for increased fever and decreased oxygen saturation. Patient been sent in from [email or web address]. Patient was st arted on supplemental oxygen via nonrebreather. Patient had recent history of resistant urinary tract infection. Patient normally uses a Adams catheter. Patient is G-tube dependent. 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 (Benny Colby MD) Patient History Past Medical History: see triage record Past Surgical History: other - G-tube Reviewed Nursing Documentation: PMH: Agreed; PSxH: Agreed (Benny Colby MD) Nursing Documentation-PMH Hx Cardiac Problems: Yes - sepsis Hx Hypertension: Yes Hx COPD: Yes Hx Diabetes: Yes Hx Cancer: No Hx Gastrointestinal Problems: Yes Hx Neurological Problems: Yes Hx Cerebrovascular Accident: Yes Hx Parkinson's Disease: Yes (Benny Colby MD) Review of Systems All Other Systems: negative except mentioned in HPI (Benny Colby MD) Physical Exam Vital Signs Date Time Temp Pulse Resp B/P (MAP) Pulse Ox O2 Delivery O2 Flow Rate FiO2 09/24/20 18:59 103.5 138 24 138/83 (101) 100 Non-Rebreather 15.0 Sp02 EP Interpretation: reviewed, normal General Appearance: normal inspection, alert, obese, Chronically Ill Head: atraumatic ENT: normal ENT inspection, hearing grossly normal, normal voice Neck: normal inspection, full range of motion, supple, no bony tend Respiratory: normal inspection, no retraction, respiratory distress Cardiovascular #1: regular rate, rhythm, no edema Gastrointestinal: soft, distended Genitourinary: no CVA tenderness Musculoskeletal: normal inspection, back normal, normal range of motion Neurologic: alert, motor weakness, aphasia Skin: other - Bilateral lower leg edema (Benny Colby MD) Procedures Critical Care Time Critical Care Time Patient had a critical medical condition which untreated could potentially result in life or limb threatening injury. Total critical care time excluding procedures approximately 45 minutes. (Benny Colby MD) Critical Care Time i. I feel this is a highly complex case requiring extensive working including EKG/Rhythm strip, Xray/CT/US, Blood/urine lab work, repeat exams while in ED, and administration of strong opiates/narcotics for pain control, admission to hospital or close patient follow up. Total time: 60 min bedside evaluation and treatment excludes procedures (EKG). Reason for critical care: Severe sepsis, shock, hypotension Possible complications: hypotension, hypertension, [place], shock, arrhythmias, meta bolic acidosis, end organ damage, respiratory failure. Interventions: Cardiac monitoring, IV fluid boluses, Trendelenburg, central line Course: Patient admitted for septic shock. Intubated by Dr. Colby. Patient on cardiac monitoring. BP remains low after Trendelenburg and fluid boluses. Central line placed. Pressors ordered Consultations: nursing staff, EMS, family Performed by: Dr Soto Tolerated well condition = critical j. because of unstable vital signs this patient had a condition that could potentially threaten life or limb. I feel this is a critical patient who required my full attention while patient was considered critical. Total Critical Care Time excluding procedures was greater than 60 minutes (Alcides Soto MD) Central Line Central Line : Consent: Emergent Central Line Lumen: triple Maximal Sterile Barrier Tech: yes cap, yes mask, yes sterile gown, yes sterile gloves, yes large sterile sheet, yes hand hygiene, yes chlorhexidine prep Central Line Postion: femoral (R) Anesthesia: Lidocaine US Guided Line?: Yes Complications: none Central Line Post Position: sutured, good blood return Attempts: One Patient Tolerated: Well Complications: None (Alcides Soto MD) Intubation Intubation : Consent: Emergent Intubation Method: orotracheal Tube Size (cm): 7.0 Medications: Etomidate, Rocuronium Breath Sounds after Intubation: equal Intubation Complications: no complications Post Intubation Xray: Yes Attempts: One Patient Tolerated: Well Complications: None Progress Patient was intubated with glide scope. Good visualization of vocal cords. Patient tolerated intubation well. (Benny Colby MD) Medical Decision Making Diagnostic Impression: Primary Impression: Severe sepsis Additional Impressions: Hypoxia Feeding by G-tube ER Course Patient presented for fever. Differential diagnosis include was not limited to sepsis, coronavirus infection, urinary tract infection, among others. because of complexity of patient's case laboratory tests and imaging studies were ordered.Patient's laboratory testing showed an elevated white blood count. Patient was noted be febrile persistent tachycardia. He was intubated for respiratory distress. Labs Test 09/24/20 19:45 09/24/20 20:12 09/24/20 21:20 White Blood Count 15.3 K/UL (4.8-10.8) Red Blood Count 5.35 M/UL (4.70-6.10) Hemoglobin 14.7 G/DL (14.2-18.0) Hematocrit 43.3 % (42.0-52.0) Mean Corpuscular Volume 81 FL (80-99) Mean Corpuscular Hemoglobin 27.4 PG (27.0-31.0) Mean Corpuscular Hemoglobin Concent 33.9 G/DL (32.0-36.0) Red Cell Distribution Width 17.2 % (11.6-14.8) Platelet Count 301 K/UL (150-450) Mean Platelet Volume 11.3 FL (6.5-10.1) Neutrophils (%) (Auto) 62.9 % (45.0-75.0) Lymphocytes (%) (Auto) 28.4 % (20.0-45.0) Monocytes (%) (Auto) 6.5 % (1.0-10.0) Eosinophils (%) (Auto) 0.5 % (0.0-3.0) Basophils (%) (Auto) 1.8 % (0.0-2.0) Prothrombin Time 11.4 SEC (9.30-11.50) Prothromb Time International Ratio 1.0 (0.9-1.1) Activated Partial Thromboplast Time 24 SEC (23-33) D-Dimer 22.23 mg/L FEU (0.00-0.49) Urine Color Pale yellow Urine Appearance Slightly cloudy Urine pH 7 (4.5-8.0) Urine Specific [place] 1.005 (1.005-1.035) Urine Protein 2+ (NEGATIVE) Urine Glucose (UA) Negative (NEGATIVE) Urine Ketones Negative (NEGATIVE) Urine Blood 5+ (NEGATIVE) Urine Nitrite Negative (NEGATIVE) Urine Bilirubin Negative (NEGATIVE) Urine Urobilinogen Normal MG/DL (0.0-1.0) Urine Leukocyte Esterase 3+ (NEGATIVE) Urine RBC 15-20 /HPF (0 - 0) Urine WBC 20-30 /HPF (0 - 0) Urine Squamous Epithelial Cells None /LPF (NONE/OCC) Urine Bacteria Many /HPF (NONE) Troponin I 0.037 ng/mL (0.000-0.056) Arterial Blood pH 7.496 (7.350-7.450) Arterial Blood Partial Pressure CO2 30.8 mmHg (35.0-45.0) Arterial Blood Partial Pressure O2 53.4 mmHg (75.0-100.0) Arterial Blood HCO3 23.3 mmol/L (22.0-26.0) Arterial Blood Oxygen Saturation 86.8 % (95-100) Arterial Blood Base Excess 0.9 (-2-2) Raz Test Positive (Benny Colby MD) EKG Diagnostic Results Rate: tachycardiac Rhythm: NSR ST Segments: other - 150 (Benny Colby MD) Last Vital Signs Date Time Temp Pulse Resp B/P (MAP) Pulse Ox O2 Delivery O2 Flow Rate FiO2 09/24/20 18:59 103.5 138 24 138/83 (101) 100 Non-Rebreather 15.0 Status: unchanged (Benyn Colby MD) Disposition: ADMITTED INPATIENT Condition: Critical Benny Colby MD Sep 24, 2020 19:28 Alcides Soto MD Sep 25, 2020 05:42
[2020-09-24] MEDS ORDERED: Acetaminophen 650 MG SUPP RECTAL ONE (20:15)
[2020-09-24 20:20] LABS: APPEARANCE,URINE SLIGHTLY CLOUDY; BILIRUBIN, URINE NEGATIVE (NEGATIVE); COLOR,URINE PALE YELLOW; GLUCOSE, URINE (UA) NEGATIVE (NEGATIVE); KETONES,URINE NEGATIVE (NEGATIVE); LEUKOCYTE ESTERASE ,URINE 3+ (NEGATIVE); NITRITE,URINE NEGATIVE (NEGATIVE); PH,URINE 7 (4.5-8.0); PROTEIN,URINE 2+ (NEGATIVE); UROBILINOGEN,URINE NORMAL MG/DL (0.0-1.0)
[2020-09-24 20:23] LABS: BASOPHILS % (AUTO) 1.8 % (0.0-2.0); EOSINOPHILS % (AUTO) 0.5 % (0.0-3.0); HEMATOCRIT 43.3 % (42.0-52.0); HEMOGLOBIN 14.7 G/DL (14.2-18.0); LYMPHOCYTES % (AUTO) 28.4 % (20.0-45.0); MEAN CORPUSCULAR VOLUME 81 FL (80-99); MONOCYTES % (AUTO) 6.5 % (1.0-10.0); NEUTROPHILS % (AUTO) 62.9 % (45.0-75.0); PLATELET COUNT 301 K/UL (150-450); RED BLOOD COUNT 5.35 M/UL (4.70-6.10); RED CELL DISTRIBUTION WIDTH 17.2 % (11.6-14.8); WHITE BLOOD COUNT 15.3 K/UL (4.8-10.8)
--- NOTE | 2020-09-24 20:52 | Diagnostic Imaging Report ---
EXAM: XR Chest, 1 View CLINICAL HISTORY: CP TECHNIQUE: Frontal view of the chest. COMPARISON: No relevant prior studies available. FINDINGS: Lungs: Mildly prominent coarse basilar, left greater than right, interstitial lung markings. Pleural space: Unremarkable. No pneumothorax. Heart: Unremarkable. No cardiomegaly. Mediastinum: Unremarkable. Bones/joints: Unremarkable. Vasculature: Atherosclerotic vascular disease with a tortuous aorta. IMPRESSION: 1. Coarse bibasilar interstitial lung markings, may represent atypical infectious process such as viral pneumonia versus pulmonary edema. 2. Atherosclerotic vascular disease.
[2020-09-24] MEDS ORDERED: cefTRIAXone 1 GM in NS 55 ML IVPB ONE (21:00)
[2020-09-24 22:38] LABS: ALANINE AMINOTRANSFERASE 19 U/L (12-78); ALBUMIN 2.6 G/DL (3.4-5.0); ALBUMIN/GLOBULIN RATIO 0.4 (1.0-2.7); ALKALINE PHOSPHATASE 101 U/L (46-116); ANION GAP 12 mmol/L (5-15); ASPARTATE AMINO TRANSFERASE 21 U/L (15-37); BILIRUBIN,TOTAL 0.3 MG/DL (0.2-1.0); BLOOD UREA NITROGEN 103 mg/dL (7-18); CALCIUM 9.1 MG/DL (8.5-10.1); CARBON DIOXIDE 27 MMOL/L (21-32); CHLORIDE 116 MMOL/L (98-107); CREATINE KINASE 295 U/L (26-308); CREATININE 2.6 MG/DL (0.55-1.30); FERRITIN 25 NG/ML (8-388); LACTATE DEHYDROGENASE 224 U/L (81-234); POTASSIUM 5.1 MMOL/L (3.5-5.1); SODIUM 155 MMOL/L (136-145)
[2020-09-24] MEDS ORDERED: Insulin Human Regular 100units/ml 3ml IV ONE (22:45)
[2020-09-24 23:00] VITALS: BP 86/48
[2020-09-25] VITALS (22 sets, daily range): BP systolic 71–120; BP diastolic 45–66
[2020-09-25] MEDS ORDERED: LORazepam Inj 2mg/ml 1ml IV PRN (00:15)
[2020-09-25] MEDS ORDERED: Norepinephrine 4mg/NS Premix 250 ML IV SCH (00:15)
[2020-09-25] MEDS ORDERED: Morphine Sulfate 4mg/ml Inj (IV USE ONLY) IVP PRN (00:15)
[2020-09-25] MEDS ORDERED: Albuterol/Ipratropium 3ml neb HHN PRN (00:15)
[2020-09-25] MEDS ORDERED: Miralax 17gm pkt ORAL PRN (00:15)
[2020-09-25] MEDS ORDERED: Acetaminophen 500mg (ES) tab ORAL ONE (06:30)
[2020-09-25] MEDS ORDERED: Acetaminophen 650 MG SUPP RECTAL ONE (07:15)
[2020-09-25] MEDS ORDERED: Pantoprazole Inj IVP SCH (09:00)
[2020-09-25] MEDS: Heparin 5000 units/ml inj SUBQ SCH ×2 (09:55→20:09)
[2020-09-25] MEDS ORDERED: [UNRECOGNIZED DRUG - REMARK] MISC PRN (10:00)
[2020-09-25] MEDS ORDERED: Vancomycin 1gm/D5W 275ml IVPB ONE ×2 (10:00)
[2020-09-25] MEDS ORDERED: NS IV ONE (11:00)
[2020-09-25] MEDS ORDERED: AMIKACIN IV ONE (11:00)
[2020-09-25] MEDS ORDERED: Ertapenem 0.5gm in NS 55ml IV SCH (12:00)
--- NOTE | 2020-09-25 12:07 | Consultation ---
History of Present Illness General Date patient seen: Sep 25, 2020 Reason for Hospitalization: Abnormal Labs Present Illness HPI This is a 80-year-old male well-known to me from prior admissions and care plan who was in his care facility and began to have respiratory insufficiency de creased oxygen saturation abnormal labs admitted for further care and management. Surgery called to evaluate and assist with care. Patient seen, patient evaluated, chart reviewed. leukocytosis, anemia, lactic acidosis, pancreatitis. Patient with limited verbal response unable to participate in examination. Chart reviewed in detail. Allergies: Coded Allergies: No Known Allergies (Unverified , 08/27/19) COVID-19 Screening Contact w/high risk pt: No Experienced COVID-19 symptoms?: Yes Coronavirus symptoms experienc: Fever (T>100.4F or >38C), Shortness of Breath Medication History Scheduled Amantadine Hcl* (Amantadine*), 100 MG ORAL TWICE A DAY, (Reported) Amantadine Hcl* (Amantadine*), 100 MG GT TWICE A DAY, (Reported) Amlodipine Besylate (Norvasc), 10 MG ORAL DAILY, (Reported) Amlodipine Besylate* (Amlodipine Besylate*), 10 MG GT DAILY, (Reported) Aspirin (Aspirin EC), 81 MG ORAL DAILY, (Reported) Benazepril/Hydrochlorothiazide (Lotensin Hct 10-12.5 mg Tablet), 1 EACH PO DAILY, (Reported) Cefazolin Sodium/Dextrose,Iso (Cefazolin 2 Gm-D5w Bag), 2 GM IV EVERY 8 HOURS Docusate Sodium* (Colace*), 100 MG GT TWICE A DAY, (Reported) Ertapenem (Invanz), 1 GM IM DAILY Hydroxyurea* (HYDREA 500mg*), 500 MG PO DAILY, (Reported) Insulin Aspart (Novolog Flexpen), 0 UNITS SUBQ Q6HR Metformin Hcl (Glucophage), 1,000 MG ORAL BID, (Reported) Metformin Hcl* (Metformin Hcl*), 1,000 MG GT DAILY, (Reported) Pravastatin Sod (Pravastatin Sod), 20 MG ORAL DAILY, (Reported) Pravastatin Sod* (Pravastatin Sod*), 20 MG GT BEDTIME, (Reported) Tamsulosin HCl (Flomax), 0.4 MG ORAL BEDTIME Tamsulosin HCl (Flomax), 0.4 MG GT DAILY, (Reported) Vancomycin HCl (Vancomycin HCl), 125 MG GT FOUR TIMES A DAY Scheduled PRN Acetaminophen* (Acetaminophen 325MG Tablet*), 325 MG GT Q6HR PRN for , (Reported) Ondansetron* (Zofran*), 4 MG GT Q6H PRN for Nausea & Vomiting, (Reported) Simethicone* (Simethicone*), 80 MG GT DAILY PRN for GAS PAIN, (Reported) Miscellaneous Medications Hydroxyurea* (HYDREA 500mg*), 500 MG GT, (Reported) Sennosides (Senna), 8.6 MG GT, (Reported) Patient History Limited by: medical condition History Provided By: Medical Record, PMD Healthcare decision maker N Resuscitation status Advanced Directive on File Past Medical/Surgical History Past Medical/Surgical History: (1) Hypernatremia (2) Dehydration (3) Clostridium difficile colitis (4) Staphylococcus aureus bacteremia (5) Hypoxia (6) Severe sepsis (7) Hip fracture, left (8) Diabetes mellitus (9) History of hypertension (10) Severe protein-calorie malnutrition (11) Acute encephalopathy (12) Pressure Ulcer Of Sacral Region, Unstageable (13) Feeding by G-tube (14) Abdominal distention (15) Multiple drug resistant organism (MDRO) culture positive (16) Sepsis (17) History of CVA (cerebrovascular accident) (18) Parkinson disease Family History Family History: CVA Review of Systems Review of Symptoms General ROS: no weight loss or fever Psychological ROS: no depression or mood changes, no memory loss Ophthalmic ROS: no visual changes or eye irritation ENT ROS: no nasal congestion, hearing loss, dizziness Allergy and Immunology ROS: no allergic symptoms or urticaria Hematological and Lymphatic ROS: no swollen glands, unusual bleeding or bruising Endocrine ROS: no polyuria, polydipsia, weight changes, temperature intolerance Respiratory ROS: no cough, shortness of breath, or wheezing Cardiovascular ROS: no chest pain or dyspnea on exertion Gastrointestinal ROS: denies abdominal pain, bright red blood in stool. Musculoskeletal ROS: no myalgias or arthralgias Neurological ROS: no TIA or stroke symptoms Dermatological ROS: no new or changing skin lesions, rashes or pruritis Limited given patient's baseline medical condition at this time Physical Exam Physical Exam General appearance: Ill-appearing distress, appears stated age Head: Normocephalic, without obvious abnormality, atraumatic Eyes: conjunctivae/corneas clear. PERRL, EOM's intact. Fundi benign Throat: Lips, mucosa, and tongue normal. Teeth and gums normal Neck: supple, symmetrical, trachea midline, no adenopathy, thyroid: not enlarged, symmetric, no tenderness/mass/nodules, no carotid bruit and no JVD Lungs: Decreased auscultation bilaterally Heart: regular rate and rhythm, S1, S2 normal, no murmur, click, rub or gallop Abdomen: soft, non-tender. Bowel sounds normal. No masses, no organomegaly Extremities: extremities normal, atraumatic, no cyanosis or edema Pulses: 2+ and symmetric Skin: Skin see below Neurologic: Grossly normal Last 24 Hour Vital Signs Date Time Temp Pulse Resp B/P (MAP) Pulse Ox O2 Delivery O2 Flow Rate FiO2 09/25/20 11:34 118 22 40 09/25/20 11:32 118 20 100 Endotrachael Tube 40 09/25/20 11:13 103.6 85 18 103/68 100 Mechanical Ventilator 50 09/25/20 10:15 103.6 74 20 101/66 100 Mechanical Ventilator 50 09/25/20 09:20 103.6 88 16 102/60 100 Mechanical Ventilator 50 09/25/20 08:31 103.6 87 20 104/56 100 Mechanical Ventilator 50 09/25/20 08:30 103.6 09/25/20 07:12 113 17 97/47 100 Mechanical Ventilator 60 09/25/20 06:45 116 19 50 09/25/20 06:23 105.0 120 20 94/56 100 Mechanical Ventilator 60 09/25/20 02:58 123 20 50 09/25/20 02:20 103.8 122 16 71/45 100 Mechanical Ventilator 60 09/24/20 23:00 102.2 146 16 86/48 100 Mechanical Ventilator 60 09/24/20 22:29 150 16 60 09/24/20 18:59 103.5 138 24 138/83 (101) 100 Non-Rebreather 15.0 Laboratory Tests Test 09/24/20 19:45 09/24/20 20:12 09/24/20 21:20 09/25/20 07:45 White Blood Count 15.3 K/UL (4.8-10.8) H Red Blood Count 5.35 M/UL (4.70-6.10) Hemoglobin 14.7 G/DL (14.2-18.0) Hematocrit 43.3 % (42.0-52.0) Mean Corpuscular Volume 81 FL (80-99) Mean Corpuscular Hemoglobin 27.4 PG (27.0-31.0) Mean Corpuscular Hemoglobin Concent 33.9 G/DL (32.0-36.0) Red Cell Distribution Width 17.2 % (11.6-14.8) H Platelet Count 301 K/UL (150-450) Mean Platelet Volume 11.3 FL (6.5-10.1) H Neutrophils (%) (Auto) 62.9 % (45.0-75.0) Lymphocytes (%) (Auto) 28.4 % (20.0-45.0) Monocytes (%) (Auto) 6.5 % (1.0-10.0) Eosinophils (%) (Auto) 0.5 % (0.0-3.0) Basophils (%) (Auto) 1.8 % (0.0-2.0) Prothrombin Time 11.4 SEC (9.30-11.50) Prothromb Time International Ratio 1.0 (0.9-1.1) Activated Partial Thromboplast Time 24 SEC (23-33) D-Dimer 22.23 mg/L FEU (0.00-0.49) H Urine Color Pale yellow Urine Appearance Slightly cloudy Urine pH 7 (4.5-8.0) Urine Specific [place] 1.005 (1.005-1.035) Urine Protein 2+ (NEGATIVE) H Urine Glucose (UA) Negative (NEGATIVE) Urine Ketones Negative (NEGATIVE) Urine Blood 5+ (NEGATIVE) H Urine Nitrite Negative (NEGATIVE) Urine Bilirubin Negative (NEGATIVE) Urine Urobilinogen Normal MG/DL (0.0-1.0) Urine Leukocyte Esterase 3+ (NEGATIVE) H Urine RBC 15-20 /HPF (0 - 0) H Urine WBC 20-30 /HPF (0 - 0) H Urine Squamous Epithelial Cells None /LPF (NONE/OCC) Urine Bacteria Many /HPF (NONE) H Lactic Acid Level 5.30 mmol/L (0.4-2.0) H 6.30 mmol/L (0.66-2.22) H Troponin I 0.037 ng/mL (0.000-0.056) Arterial Blood pH 7.496 (7.350-7.450) 7.447 (7.350-7.450) Arterial Blood Partial Pressure CO2 30.8 mmHg (35.0-45.0) L 28.8 mmHg (35.0-45.0) L Arterial Blood Partial Pressure O2 53.4 mmHg (75.0-100.0) L 95.0 mmHg (75.0-100.0) Arterial Blood HCO3 23.3 mmol/L (22.0-26.0) 19.4 mmol/L (22.0-26.0) L Arterial Blood Oxygen Saturation 86.8 % (95-100) *L 95.2 % (95-100) Arterial Blood Base Excess 0.9 (-2-2) -3.5 (-2-2) L Raz Test Positive Positive Sodium Level 155 MMOL/L (136-145) H Potassium Level 5.1 MMOL/L (3.5-5.1) Chloride Level 116 MMOL/L (98-107) H Carbon Dioxide Level 27 MMOL/L (21-32) Anion Gap 12 mmol/L (5-15) Blood Urea Nitrogen 103 mg/dL (7-18) H Creatinine 2.6 MG/DL (0.55-1.30) H Estimat Glomerular Filtration Rate 29.0 mL/min (>60) Glucose Level 541 MG/DL (74-106) *H Calcium Level 9.1 MG/DL (8.5-10.1) Ferritin 25 NG/ML (8-388) Total Bilirubin 0.3 MG/DL (0.2-1.0) Aspartate Amino Transf (AST/SGOT) 21 U/L (15-37) Alanine Aminotransferase (ALT/SGPT) 19 U/L (12-78) Alkaline Phosphatase 101 U/L (46-116) Lactate Dehydrogenase 224 U/L (81-234) Total Creatine Kinase 295 U/L (26-308) C-Reactive Protein, Quantitative 12.6 mg/dL (0.00-0.90) H Pro-B-Type Natriuretic Peptide 280 pg/mL (0-125) H Total Protein 8.4 G/DL (6.4-8.2) H Albumin 2.6 G/DL (3.4-5.0) L Globulin 5.8 g/dL Albumin/Globulin Ratio 0.4 (1.0-2.7) L Lipase 606 U/L (73-393) H Microbiology Date/Time Source Procedure Growth Status 09/25/20 10:15 Rectum Received 09/24/20 19:45 Urine,Clean Catch Urine Culture - Preliminary Gram Negative Martín Resulted 09/24/20 19:45 Nasopharynx SARS-CoV-2 RdRp Gene Assay - Final Complete Height (Feet): 5 Height (Inches): 10.00 Weight (Pounds): 180 Medications Current Medications Medications (Trade) Dose Ordered Sig/Debi Route PRN Reason Start Time Stop Time Status Last Admin Dose Admin Acetaminophen (Tylenol) 650 mg Q4H PRN ORAL fever 09/25/20 00:15 10/25/20 00:14 Albuterol/ Ipratropium (Albuterol/ Ipratropium) 3 ml Q4HRT PRN HHN Shortness of Breath 09/25/20 00:15 09/30/20 00:14 Ertapenem 0.5 gm/ Sodium Chloride 55 ml @ 110 mls/hr Q24H IV 09/25/20 12:00 09/30/20 11:59 Heparin Sodium (Porcine) (Heparin 5000 units/ml) 5,000 units EVERY 12 HOURS SUBQ 09/25/20 09:00 11/09/20 08:59 09/25/20 09:55 Lorazepam (Ativan 2mg/ml 1ml) 2 mg Q2H PRN IV For Anxiety 09/25/20 00:15 10/02/20 00:14 Morphine Sulfate (Morphine Sulfate) 4 mg Q4H PRN IVP Severe Pain (Pain Scale 7-10) 09/25/20 00:15 10/02/20 00:14 Norepinephrine Bitartrate 250 ml @ 0 mls/hr Q24H IV 09/25/20 00:15 09/28/20 00:14 Ondansetron HCl (Zofran) 4 mg Q6H PRN IVP Nausea & Vomiting 09/25/20 00:15 10/25/20 00:14 Pantoprazole (Protonix) 40 mg DAILY IVP 09/25/20 09:00 10/25/20 08:59 09/25/20 09:55 Polyethylene Glycol (Miralax) 17 gm DAILYPRN PRN ORAL Constipation 09/25/20 00:15 10/25/20 00:14 Sodium Chloride 1,000 ml @ 100 mls/hr Q10H IVLG 09/25/20 09:00 10/25/20 08:59 09/25/20 10:34 Sodium Chloride 1,000 ml @ 200 mls/hr Q5H IV 09/25/20 01:45 10/25/20 01:44 09/25/20 04:28 Assessment/Plan Problem List: (1) Hypoxia ICD Codes: R09.02 - Hypoxemia; R65.20 - Severe sepsis without septic shock SNOMED: 440837498 (2) Severe sepsis Assessment & Plan: leukocytosis lactic acidosis anemia renal insufficiency on support in ICU dressings changed and care plan initiated cont abx trend labs if fluids am imaging ordered Pt presented on admission with purple and indurated area at Sacrococcygeal at previously compromised site(L)7cm x (W)3cm.Surrounding Hyperpigmentation at Sacrum. Non-Blanching erythema without fluctuance R heel. Non-Blanching erythema with delineated margins L heel (L)4.5cm x (W)5.5cm. L Heel is boggy . Tx.Plan: Apply Moisture Barrier Paste to Sacrum. Cover with Optifoam drsgs. Change every 3 days and prn. Apply Cavilon Skin Barrier to R and L trochanter. Cover each site with Optifoam drsgs. Change every 7 days and prn. Apply [place] Skin Barrier to each heel and malleoli. Cover each site with Optifoam drsgs. Change every 7 days and prn. Reposition at least every 2hours or as tolerated. Off-load heels with pillow. improving cont current care tube site okay ICD Codes: A41.9 - Sepsis, unspecified organism; R65.20 - Severe sepsis without septic shock SNOMED: 24131469 (3) Dehydration ICD Codes: E86.0 - Dehydration SNOMED: 58726653 (4) Hypernatremia ICD Codes: E87.0 - Hyperosmolality and hypernatremia SNOMED: 421752425 (5) Clostridium difficile colitis ICD Codes: A04.72 - Enterocolitis due to Clostridium difficile, not specified as recurrent SNOMED: 299770285 (6) Staphylococcus aureus bacteremia ICD Codes: R78.81 - Bacteremia; B95.61 - Methicillin susceptible Staphylococcus aureus infection as the cause of diseases classified elsewhere SNOMED: 957598981 (7) Hip fracture, left ICD Codes: S72.002A - Fracture of unspecified part of neck of left femur, initial encounter for closed fracture SNOMED: 098317484 (8) Diabetes mellitus ICD Codes: E11.9 - Type 2 diabetes mellitus without complications SNOMED: 69102390 (9) History of hypertension ICD Codes: Z86.79 - Personal history of other diseases of the circulatory system SNOMED: 012996671 (10) Severe protein-calorie malnutrition ICD Codes: E43 - Unspecified severe protein-calorie malnutrition SNOMED: 366202481, 138741478, 665352201 (11) Acute encephalopathy ICD Codes: G93.40 - Encephalopathy, unspecified SNOMED: 04904424, 260699646 (12) Pressure Ulcer Of Sacral Region, Unstageable ICD Codes: L89.150 - Pressure Ulcer Of Sacral Region, Unstageable (13) Feeding by G-tube ICD Codes: Z93.1 - Gastrostomy status SNOMED: 844211793, 636892942, 497380184 (14) Abdominal distention ICD Codes: R14.0 - Abdominal distension (gaseous) SNOMED: 87420377 (15) Multiple drug resistant organism (MDRO) culture positive ICD Codes: Z16.24 - Resistance to multiple antibiotics SNOMED: 069345277 (16) Sepsis ICD Codes: A41.9 - Sepsis, unspecified organism SNOMED: 03631183 (17) History of CVA (cerebrovascular accident) ICD Codes: Z86.73 - Personal history of transient ischemic attack (TIA), and cerebral infarction without residual deficits SNOMED: 681205260 (18) Parkinson disease ICD Codes: G20 - Parkinson's disease SNOMED: 41878339 James Breen Sep 25, 2020 12:07
[2020-09-25 13:17] LABS: EOSINOPHILS % (AUTO) 0.6 % (0.0-3.0); HEMATOCRIT 35.7 % (42.0-52.0); HEMOGLOBIN 11.4 G/DL (14.2-18.0); LYMPHOCYTES % (AUTO) 30.6 % (20.0-45.0); MEAN CORPUSCULAR VOLUME 83 FL (80-99); MONOCYTES % (AUTO) 8.9 % (1.0-10.0); NEUTROPHILS % (AUTO) 57.9 % (45.0-75.0); PLATELET COUNT 166 K/UL (150-450); RED BLOOD COUNT 4.28 M/UL (4.70-6.10); WHITE BLOOD COUNT 10.4 K/UL (4.8-10.8)
[2020-09-25 13:35] LABS: ALBUMIN 1.8 G/DL (3.4-5.0); ALBUMIN/GLOBULIN RATIO 0.4 (1.0-2.7); BILIRUBIN,TOTAL 0.3 MG/DL (0.2-1.0); CALCIUM 7.4 MG/DL (8.5-10.1); CREATININE 2.7 MG/DL (0.55-1.30); POTASSIUM 4.8 MMOL/L (3.5-5.1)
--- NOTE | 2020-09-25 14:28 | Consultation ---
Consult Note Consult Note I am asked to evaluate the patient at the request of Dr. Rome for renal failure and abnormal electrolytes Patient known to me from his previous admission here at [facility] Patient seen in ICU, intubated on ventilator Patient is a 80-year-old male who presents for increased fever and decreased oxygen saturation. Patient been sent in from [facility]. Patient was started on supplemental oxygen via nonrebreather. Patient had recent history of resistant urinary tract infection. Patient normally uses a Adams catheter. Patient is G-tube dependent. 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 Past Medical History: see triage record Past Surgical History: other - G-tube Reviewed Nursing Documentation: PMH: Agreed; PSxH: Agreed (Benny Colby MD) Hx Cardiac Problems: Yes - sepsis Hx Hypertension: Yes Hx COPD: Yes Hx Diabetes: Yes Hx Gastrointestinal Problems: Yes Hx Neurological Problems: Yes Hx Cerebrovascular Accident: Yes Hx Parkinson's Disease: Yes Vital Signs Date Time Temp Pulse Resp B/P (MAP) Pulse Ox O2 Delivery O2 Flow Rate FiO2 09/24/20 18:59 103.5 138 24 138/83 (101) 100 Non-Rebreather 15.0 PHYSICAL EXAMINATION: VITAL SIGNS: Temperature 103.5 degrees Fahrenheit, respiratory rate 24, pulse 138, blood pressure 130/83, pulse ox was 100% on mechanical ventilation with 60% FiO2. GENERAL: The patient is well-developed and well-nourished male, who is intubated and sedated. HEENT: Eyes, pupils are equal responsive to light and accommodation. Extraocular movements are intact. NECK: Supple without lymphadenopathy. CHEST: Decreased breath sounds bilateral bases, otherwise without wheezes or rales. CARDIOVASCULAR: Regular rate. S1 and S2 normal without murmurs, rubs, or gallops. ABDOMEN: Soft, nontender, and nondistended. Positive bowel sounds. No evidence of hepatosplenomegaly. Currently, no rebound or guarding noted. EXTREMITIES: Negative for clubbing, cyanosis, or edema. LABORATORY AND DIAGNOSTIC DATA: WBC 15.3, hemoglobin 14.7, hematocrit 43.3, platelets 301,000. Sodium 155, potassium 5.1, chloride 116, CO2 27, BUN 103, creatinine 2.6, glucose 541. Chest x-ray was reported as coarse interstitial bibasilar lung markings consistent with pneumonia. Blood gas pH 7.496, pCO2 30.8, pO2 53.4, bicarb 23.3, oxygen saturation 86.8, base excess positive 0.9. . Assessment/Plan KELLY, Hypernatremia, dehydration, free water deficit Sepsis Acute respiratory failure requiring intubation and mechanical ventilation Diabetes mellitus [id number] GT feeding History of CVA History of hypertension Parkinson's disease Elevated lipase IV fluid half-normal saline 125 cc an hour Albumin fluid challenge Monitor electrolytes Monitor renal parameters Hold blood pressure medication since blood pressure low Per orders, per consultants Eddie Nelson MD Sep 25, 2020 14:28
--- NOTE | 2020-09-25 14:37 | Pulmonolgy Critical Care Note ---
Critical Care - Asmt/Plan Problems: (1) Acute respiratory failure (2) Severe sepsis (3) Diabetes mellitus (4) Severe protein-calorie malnutrition (5) History of hypertension (6) History of CVA (cerebrovascular accident) (7) Parkinson disease (8) Feeding by G-tube Respiratory: monitor respiratory rate, adjust FIO2, CXR, ABG Cardiac: continue to monitor HR/BP Renal: F/U I&O, keep IV fluid Infectious Disease: check cultures Endocrine: continue sliding scale insulin Hematologic: transfuse if hgb<8.5 Neurologic: PRN Ativan, PRN Morphine, keep patient comfortable Disposition: keep in ICU Time Spent (Minutes): 40 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, 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, ID Discussed with: nurses Critical Care - Objective Last 24 Hour Vital Signs Date Time Temp Pulse Resp B/P (MAP) Pulse Ox O2 Delivery O2 Flow Rate FiO2 09/25/20 13:51 92/54 09/25/20 11:34 118 22 40 09/25/20 11:32 118 20 100 Endotrachael Tube 40 09/25/20 11:13 103.6 85 18 103/68 100 Mechanical Ventilator 50 09/25/20 10:15 103.6 74 20 101/66 100 Mechanical Ventilator 50 09/25/20 09:20 103.6 88 16 102/60 100 Mechanical Ventilator 50 09/25/20 08:31 103.6 87 20 104/56 100 Mechanical Ventilator 50 09/25/20 08:30 103.6 09/25/20 07:12 113 17 97/47 100 Mechanical Ventilator 60 09/25/20 06:45 116 19 50 09/25/20 06:23 105.0 120 20 94/56 100 Mechanical Ventilator 60 09/25/20 02:58 123 20 50 09/25/20 02:20 103.8 122 16 71/45 100 Mechanical Ventilator 60 09/24/20 23:00 102.2 146 16 86/48 100 Mechanical Ventilator 60 09/24/20 22:29 150 16 60 09/24/20 18:59 103.5 138 24 138/83 (101) 100 Non-Rebreather 15.0 Status: awake Condition: critical, grave Neck: full ROM Lungs: clear Heart: HR/BP stable Abdomen: non-tender, feeding tube Extremities: no C/C/E Micro: Microbiology Date/Time Source Procedure Growth Status 09/25/20 10:15 Rectum Received 09/24/20 19:45 Urine,Clean Catch Urine Culture - Preliminary Gram Negative Martín Resulted 09/24/20 19:45 Nasopharynx SARS-CoV-2 RdRp Gene Assay - Final Complete Accucheck: 385 Critical Care - Subjective ROS Limited/Unobtainable: Yes Condition: critical EKG Rhythm: Sinus Rhythm FI02: 40 Vent Support Breath Rate: 16 Vent Support Mode: AC Vent Tidal Volume: 600 Sputum Amount: Small PEEP: 5.0 PIP: 28 CXR: Coarse bibasilar interstitial lung markings, may represent atypical infectious process such as viral pneumonia versus pulmonary edema. Labs: Laboratory Tests Test 09/24/20 19:45 09/24/20 20:12 09/24/20 21:20 09/25/20 07:45 White Blood Count 15.3 K/UL (4.8-10.8) H Red Blood Count 5.35 M/UL (4.70-6.10) Hemoglobin 14.7 G/DL (14.2-18.0) Hematocrit 43.3 % (42.0-52.0) Mean Corpuscular Volume 81 FL (80-99) Mean Corpuscular Hemoglobin 27.4 PG (27.0-31.0) Mean Corpuscular Hemoglobin Concent 33.9 G/DL (32.0-36.0) Red Cell Distribution Width 17.2 % (11.6-14.8) H Platelet Count 301 K/UL (150-450) Mean Platelet Volume 11.3 FL (6.5-10.1) H Neutrophils (%) (Auto) 62.9 % (45.0-75.0) Lymphocytes (%) (Auto) 28.4 % (20.0-45.0) Monocytes (%) (Auto) 6.5 % (1.0-10.0) Eosinophils (%) (Auto) 0.5 % (0.0-3.0) Basophils (%) (Auto) 1.8 % (0.0-2.0) Prothrombin Time 11.4 SEC (9.30-11.50) Prothromb Time International Ratio 1.0 (0.9-1.1) Activated Partial Thromboplast Time 24 SEC (23-33) D-Dimer 22.23 mg/L FEU (0.00-0.49) H Urine Color Pale yellow Urine Appearance Slightly cloudy Urine pH 7 (4.5-8.0) Urine Specific [place] 1.005 (1.005-1.035) Urine Protein 2+ (NEGATIVE) H Urine Glucose (UA) Negative (NEGATIVE) Urine Ketones Negative (NEGATIVE) Urine Blood 5+ (NEGATIVE) H Urine Nitrite Negative (NEGATIVE) Urine Bilirubin Negative (NEGATIVE) Urine Urobilinogen Normal MG/DL (0.0-1.0) Urine Leukocyte Esterase 3+ (NEGATIVE) H Urine RBC 15-20 /HPF (0 - 0) H Urine WBC 20-30 /HPF (0 - 0) H Urine Squamous Epithelial Cells None /LPF (NONE/OCC) Urine Bacteria Many /HPF (NONE) H Lactic Acid Level 5.30 mmol/L (0.4-2.0) H 6.30 mmol/L (0.66-2.22) H Troponin I 0.037 ng/mL (0.000-0.056) Arterial Blood pH 7.496 (7.350-7.450) 7.447 (7.350-7.450) Arterial Blood Partial Pressure CO2 30.8 mmHg (35.0-45.0) L 28.8 mmHg (35.0-45.0) L Arterial Blood Partial Pressure O2 53.4 mmHg (75.0-100.0) L 95.0 mmHg (75.0-100.0) Arterial Blood HCO3 23.3 mmol/L (22.0-26.0) 19.4 mmol/L (22.0-26.0) L Arterial Blood Oxygen Saturation 86.8 % (95-100) *L 95.2 % (95-100) Arterial Blood Base Excess 0.9 (-2-2) -3.5 (-2-2) L Raz Test Positive Positive Sodium Level 155 MMOL/L (136-145) H Potassium Level 5.1 MMOL/L (3.5-5.1) Chloride Level 116 MMOL/L (98-107) H Carbon Dioxide Level 27 MMOL/L (21-32) Anion Gap 12 mmol/L (5-15) Blood Urea Nitrogen 103 mg/dL (7-18) H Creatinine 2.6 MG/DL (0.55-1.30) H Estimat Glomerular Filtration Rate 29.0 mL/min (>60) Glucose Level 541 MG/DL (74-106) *H Calcium Level 9.1 MG/DL (8.5-10.1) Ferritin 25 NG/ML (8-388) Total Bilirubin 0.3 MG/DL (0.2-1.0) Aspartate Amino Transf (AST/SGOT) 21 U/L (15-37) Alanine Aminotransferase (ALT/SGPT) 19 U/L (12-78) Alkaline Phosphatase 101 U/L (46-116) Lactate Dehydrogenase 224 U/L (81-234) Total Creatine Kinase 295 U/L (26-308) C-Reactive Protein, Quantitative 12.6 mg/dL (0.00-0.90) H Pro-B-Type Natriuretic Peptide 280 pg/mL (0-125) H Total Protein 8.4 G/DL (6.4-8.2) H Albumin 2.6 G/DL (3.4-5.0) L Globulin 5.8 g/dL Albumin/Globulin Ratio 0.4 (1.0-2.7) L Lipase 606 U/L (73-393) H Test 09/25/20 12:50 White Blood Count 10.4 K/UL (4.8-10.8) Red Blood Count 4.28 M/UL (4.70-6.10) L Hemoglobin 11.4 G/DL (14.2-18.0) L Hematocrit 35.7 % (42.0-52.0) L Mean Corpuscular Volume 83 FL (80-99) Mean Corpuscular Hemoglobin 26.5 PG (27.0-31.0) L Mean Corpuscular Hemoglobin Concent 31.8 G/DL (32.0-36.0) L Red Cell Distribution Width 16.0 % (11.6-14.8) H Platelet Count 166 K/UL (150-450) Mean Platelet Volume 9.8 FL (6.5-10.1) Neutrophils (%) (Auto) 57.9 % (45.0-75.0) Lymphocytes (%) (Auto) 30.6 % (20.0-45.0) Monocytes (%) (Auto) 8.9 % (1.0-10.0) Eosinophils (%) (Auto) 0.6 % (0.0-3.0) Basophils (%) (Auto) 2.0 % (0.0-2.0) Sodium Level 158 MMOL/L (136-145) H Potassium Level 4.8 MMOL/L (3.5-5.1) Chloride Level 125 MMOL/L (98-107) H Carbon Dioxide Level 15 MMOL/L (21-32) L Anion Gap 18 mmol/L (5-15) H Blood Urea Nitrogen 92 mg/dL (7-18) H Creatinine 2.7 MG/DL (0.55-1.30) H Estimat Glomerular Filtration Rate 27.8 mL/min (>60) Glucose Level 312 MG/DL (74-106) #H Calcium Level 7.4 MG/DL (8.5-10.1) L Total Bilirubin 0.3 MG/DL (0.2-1.0) Aspartate Amino Transf (AST/SGOT) 40 U/L (15-37) H Alanine Aminotransferase (ALT/SGPT) 16 U/L (12-78) Alkaline Phosphatase 72 U/L (46-116) Total Protein 5.9 G/DL (6.4-8.2) L Albumin 1.8 G/DL (3.4-5.0) L Globulin 4.1 g/dL Albumin/Globulin Ratio 0.4 (1.0-2.7) L Latanya Mckeon MD Sep 25, 2020 14:37
--- NOTE | 2020-09-25 14:51 | Infectious Diseases Prog Note ---
Subjective Allergies: Coded Allergies: No Known Allergies (Unverified , 08/27/19) 79yo M with: COVID19 neg (06/01 rapid COVID PCR neg) Sespsis, recurrent MSSA bacteremia- - ?from PNA- low grade, no vegetations on 2d echo- .endocarditis cannot be excluded UTI, recurrent Probable PNA -07/04 CXR: Lungs and pleural spaces remain clear. -06/29 CT c/abd/p w/ : Patchy opacities in the left lower lobe which may be related to subsegmental atelectasis versus developing pneumonia. Indwelling Adams catheter. Bladder wall thickening cystitis not excluded. Mild distention of the bladder despite the Adams catheter. Markedly enlarged and heterogeneous prostate which may be on the basis of BPH. Nonobstructing left renal stone. Marked thickening of the wall of the rectum and distal sigmoid colon suggesting a proctitis. Interval decrease in rectal stool burden. Moderate stool burden in the remainder of the upstream colon. Sacral decubitus ulcer. No organized/drainable subcutaneous fluid collection noted in this region. -06/27 Bcx Neg -06/23 Bcx Neg 2d echo no vegetations seen -06/21 rapid COVID PCR neg u/a wbc 5-10,nit neg, leuk +3; ucx >100k ESBL P.mirabilis Bx 12/15 MSSA CXR No acute process. Cdiff colitis -06/27 Cdif toxin a/b + Fever, recurrent; SP Leukocytosis, recurrent; SP KELLY, improving UTI, sp rx 06/01 UA w/ pyuria, UCx + P Mirabilis ESBL 06/01 BCx Neg 06/01 CXR: No acute process COVID rapid test neg H/o ESBL Proteus in UCx in Oct 2019 Renal US w/ BL cysts PMH: DM2 Parkinson's dementia Bedridden G-tube Plan: PO Vancomycin # 07/27 for cdiff Ancef #9 (abx d ) for MSSA bactremia 06/27 SP Ertapenem #4, IV Vancomycin #7 06/24 SP MEropenem #4 06/10 SP audra #8 06/02 SP erta #1 06/01 SP cefepime, vanco, flagyl x1 in ED Monitor CBC/BMP Recomended ELMO- but unable to obtained consent; will treat presume endocarditis with 6 weeks course. PICC line- patient need auto hiker access for treatment of pressured endocarditis; patient cannot provide consent but this procedure is medically necessary for continuation of treatment. D/w RN and Dr Breen Thank you for this consult. [facility] will continue to follow. Objective Last 24 Hour Vital Signs Date Time Temp Pulse Resp B/P (MAP) Pulse Ox O2 Delivery O2 Flow Rate FiO2 09/25/20 13:51 92/54 09/25/20 11:34 118 22 40 09/25/20 11:32 118 20 100 Endotrachael Tube 40 09/25/20 11:13 103.6 85 18 103/68 100 Mechanical Ventilator 50 09/25/20 10:15 103.6 74 20 101/66 100 Mechanical Ventilator 50 09/25/20 09:20 103.6 88 16 102/60 100 Mechanical Ventilator 50 09/25/20 08:31 103.6 87 20 104/56 100 Mechanical Ventilator 50 09/25/20 08:30 103.6 09/25/20 07:12 113 17 97/47 100 Mechanical Ventilator 60 09/25/20 06:45 116 19 50 09/25/20 06:23 105.0 120 20 94/56 100 Mechanical Ventilator 60 09/25/20 02:58 123 20 50 09/25/20 02:20 103.8 122 16 71/45 100 Mechanical Ventilator 60 09/24/20 23:00 102.2 146 16 86/48 100 Mechanical Ventilator 60 09/24/20 22:29 150 16 60 09/24/20 18:59 103.5 138 24 138/83 (101) 100 Non-Rebreather 15.0 Height (Feet): 5 Height (Inches): 10.00 Weight (Pounds): 180 Microbiology Date/Time Source Procedure Growth Status 09/25/20 10:15 Rectum Received 09/24/20 19:45 Urine,Clean Catch Urine Culture - Preliminary Gram Negative Martín Resulted 09/24/20 19:45 Nasopharynx SARS-CoV-2 RdRp Gene Assay - Final Complete Laboratory Tests Test 09/24/20 19:45 09/24/20 20:12 09/24/20 21:20 09/25/20 07:45 White Blood Count 15.3 K/UL (4.8-10.8) H Red Blood Count 5.35 M/UL (4.70-6.10) Hemoglobin 14.7 G/DL (14.2-18.0) Hematocrit 43.3 % (42.0-52.0) Mean Corpuscular Volume 81 FL (80-99) Mean Corpuscular Hemoglobin 27.4 PG (27.0-31.0) Mean Corpuscular Hemoglobin Concent 33.9 G/DL (32.0-36.0) Red Cell Distribution Width 17.2 % (11.6-14.8) H Platelet Count 301 K/UL (150-450) Mean Platelet Volume 11.3 FL (6.5-10.1) H Neutrophils (%) (Auto) 62.9 % (45.0-75.0) Lymphocytes (%) (Auto) 28.4 % (20.0-45.0) Monocytes (%) (Auto) 6.5 % (1.0-10.0) Eosinophils (%) (Auto) 0.5 % (0.0-3.0) Basophils (%) (Auto) 1.8 % (0.0-2.0) Prothrombin Time 11.4 SEC (9.30-11.50) Prothromb Time International Ratio 1.0 (0.9-1.1) Activated Partial Thromboplast Time 24 SEC (23-33) D-Dimer 22.23 mg/L FEU (0.00-0.49) H Urine Color Pale yellow Urine Appearance Slightly cloudy Urine pH 7 (4.5-8.0) Urine Specific [place] 1.005 (1.005-1.035) Urine Protein 2+ (NEGATIVE) H Urine Glucose (UA) Negative (NEGATIVE) Urine Ketones Negative (NEGATIVE) Urine Blood 5+ (NEGATIVE) H Urine Nitrite Negative (NEGATIVE) Urine Bilirubin Negative (NEGATIVE) Urine Urobilinogen Normal MG/DL (0.0-1.0) Urine Leukocyte Esterase 3+ (NEGATIVE) H Urine RBC 15-20 /HPF (0 - 0) H Urine WBC 20-30 /HPF (0 - 0) H Urine Squamous Epithelial Cells None /LPF (NONE/OCC) Urine Bacteria Many /HPF (NONE) H Lactic Acid Level 5.30 mmol/L (0.4-2.0) H 6.30 mmol/L (0.66-2.22) H Troponin I 0.037 ng/mL (0.000-0.056) Arterial Blood pH 7.496 (7.350-7.450) 7.447 (7.350-7.450) Arterial Blood Partial Pressure CO2 30.8 mmHg (35.0-45.0) L 28.8 mmHg (35.0-45.0) L Arterial Blood Partial Pressure O2 53.4 mmHg (75.0-100.0) L 95.0 mmHg (75.0-100.0) Arterial Blood HCO3 23.3 mmol/L (22.0-26.0) 19.4 mmol/L (22.0-26.0) L Arterial Blood Oxygen Saturation 86.8 % (95-100) *L 95.2 % (95-100) Arterial Blood Base Excess 0.9 (-2-2) -3.5 (-2-2) L Raz Test Positive Positive Sodium Level 155 MMOL/L (136-145) H Potassium Level 5.1 MMOL/L (3.5-5.1) Chloride Level 116 MMOL/L (98-107) H Carbon Dioxide Level 27 MMOL/L (21-32) Anion Gap 12 mmol/L (5-15) Blood Urea Nitrogen 103 mg/dL (7-18) H Creatinine 2.6 MG/DL (0.55-1.30) H Estimat Glomerular Filtration Rate 29.0 mL/min (>60) Glucose Level 541 MG/DL (74-106) *H Calcium Level 9.1 MG/DL (8.5-10.1) Ferritin 25 NG/ML (8-388) Total Bilirubin 0.3 MG/DL (0.2-1.0) Aspartate Amino Transf (AST/SGOT) 21 U/L (15-37) Alanine Aminotransferase (ALT/SGPT) 19 U/L (12-78) Alkaline Phosphatase 101 U/L (46-116) Lactate Dehydrogenase 224 U/L (81-234) Total Creatine Kinase 295 U/L (26-308) C-Reactive Protein, Quantitative 12.6 mg/dL (0.00-0.90) H Pro-B-Type Natriuretic Peptide 280 pg/mL (0-125) H Total Protein 8.4 G/DL (6.4-8.2) H Albumin 2.6 G/DL (3.4-5.0) L Globulin 5.8 g/dL Albumin/Globulin Ratio 0.4 (1.0-2.7) L Lipase 606 U/L (73-393) H Test 09/25/20 12:50 09/25/20 14:25 White Blood Count 10.4 K/UL (4.8-10.8) Red Blood Count 4.28 M/UL (4.70-6.10) L Hemoglobin 11.4 G/DL (14.2-18.0) L Hematocrit 35.7 % (42.0-52.0) L Mean Corpuscular Volume 83 FL (80-99) Mean Corpuscular Hemoglobin 26.5 PG (27.0-31.0) L Mean Corpuscular Hemoglobin Concent 31.8 G/DL (32.0-36.0) L Red Cell Distribution Width 16.0 % (11.6-14.8) H Platelet Count 166 K/UL (150-450) Mean Platelet Volume 9.8 FL (6.5-10.1) Neutrophils (%) (Auto) 57.9 % (45.0-75.0) Lymphocytes (%) (Auto) 30.6 % (20.0-45.0) Monocytes (%) (Auto) 8.9 % (1.0-10.0) Eosinophils (%) (Auto) 0.6 % (0.0-3.0) Basophils (%) (Auto) 2.0 % (0.0-2.0) Sodium Level 158 MMOL/L (136-145) H Potassium Level 4.8 MMOL/L (3.5-5.1) Chloride Level 125 MMOL/L (98-107) H Carbon Dioxide Level 15 MMOL/L (21-32) L Anion Gap 18 mmol/L (5-15) H Blood Urea Nitrogen 92 mg/dL (7-18) H Creatinine 2.7 MG/DL (0.55-1.30) H Estimat Glomerular Filtration Rate 27.8 mL/min (>60) Glucose Level 312 MG/DL (74-106) #H Calcium Level 7.4 MG/DL (8.5-10.1) L Total Bilirubin 0.3 MG/DL (0.2-1.0) Aspartate Amino Transf (AST/SGOT) 40 U/L (15-37) H Alanine Aminotransferase (ALT/SGPT) 16 U/L (12-78) Alkaline Phosphatase 72 U/L (46-116) Total Protein 5.9 G/DL (6.4-8.2) L Albumin 1.8 G/DL (3.4-5.0) L Globulin 4.1 g/dL Albumin/Globulin Ratio 0.4 (1.0-2.7) L Uric Acid Pending Phosphorus Level Pending Magnesium Level Pending Current Medications Medications (Trade) Dose Ordered Sig/Debi Route PRN Reason Start Time Stop Time Status Last Admin Dose Admin Acetaminophen (Tylenol) 650 mg Q4H PRN ORAL fever 09/25/20 00:15 10/25/20 00:14 Albumin Human 500 ml @ 0 mls/hr Q0M IV 09/25/20 14:30 09/25/20 15:30 Albuterol/ Ipratropium (Albuterol/ Ipratropium) 3 ml Q4HRT PRN HHN Shortness of Breath 09/25/20 00:15 09/30/20 00:14 Ertapenem 0.5 gm/ Sodium Chloride 55 ml @ 110 mls/hr Q24H IV 09/25/20 12:00 09/30/20 11:59 09/25/20 14:22 Heparin Sodium (Porcine) (Heparin 5000 units/ml) 5,000 units EVERY 12 HOURS SUBQ 09/25/20 09:00 11/09/20 08:59 09/25/20 09:55 Lorazepam (Ativan 2mg/ml 1ml) 2 mg Q2H PRN IV For Anxiety 09/25/20 00:15 10/02/20 00:14 Morphine Sulfate (Morphine Sulfate) 4 mg Q4H PRN IVP Severe Pain (Pain Scale 7-10) 09/25/20 00:15 10/02/20 00:14 Norepinephrine Bitartrate 4 mg/ Dextrose 250 ml @ 0 mls/hr Q24H IV 09/25/20 13:00 09/28/20 12:59 09/25/20 13:51 Ondansetron HCl (Zofran) 4 mg Q6H PRN IVP Nausea & Vomiting 09/25/20 00:15 10/25/20 00:14 Pantoprazole (Protonix) 40 mg Q12HR IVP 09/25/20 21:00 10/25/20 08:59 Polyethylene Glycol (Miralax) 17 gm DAILYPRN PRN ORAL Constipation 09/25/20 00:15 10/25/20 00:14 Sodium Chloride 1,000 ml @ 125 mls/hr Q8H IV 09/25/20 15:00 10/25/20 14:59 Jose Cruz Harris MD Sep 25, 2020 14:51
--- NOTE | 2020-09-25 14:59 | Infectious Diseases Prog Note ---
Subjective Allergies: Coded Allergies: No Known Allergies (Unverified , 08/27/19) # [id number] Objective Last 24 Hour Vital Signs Date Time Temp Pulse Resp B/P (MAP) Pulse Ox O2 Delivery O2 Flow Rate FiO2 09/25/20 13:51 92/54 09/25/20 11:34 118 22 40 09/25/20 11:32 118 20 100 Endotrachael Tube 40 09/25/20 11:13 103.6 85 18 103/68 100 Mechanical Ventilator 50 09/25/20 10:15 103.6 74 20 101/66 100 Mechanical Ventilator 50 09/25/20 09:20 103.6 88 16 102/60 100 Mechanical Ventilator 50 09/25/20 08:31 103.6 87 20 104/56 100 Mechanical Ventilator 50 09/25/20 08:30 103.6 09/25/20 07:12 113 17 97/47 100 Mechanical Ventilator 60 09/25/20 06:45 116 19 50 09/25/20 06:23 105.0 120 20 94/56 100 Mechanical Ventilator 60 09/25/20 02:58 123 20 50 09/25/20 02:20 103.8 122 16 71/45 100 Mechanical Ventilator 60 09/24/20 23:00 102.2 146 16 86/48 100 Mechanical Ventilator 60 09/24/20 22:29 150 16 60 09/24/20 18:59 103.5 138 24 138/83 (101) 100 Non-Rebreather 15.0 Height (Feet): 5 Height (Inches): 10.00 Weight (Pounds): 180 Microbiology Date/Time Source Procedure Growth Status 09/25/20 10:15 Rectum Received 09/24/20 19:45 Urine,Clean Catch Urine Culture - Preliminary Gram Negative Martín Resulted 09/24/20 19:45 Nasopharynx SARS-CoV-2 RdRp Gene Assay - Final Complete Laboratory Tests Test 09/24/20 19:45 09/24/20 20:12 09/24/20 21:20 09/25/20 07:45 White Blood Count 15.3 K/UL (4.8-10.8) H Red Blood Count 5.35 M/UL (4.70-6.10) Hemoglobin 14.7 G/DL (14.2-18.0) Hematocrit 43.3 % (42.0-52.0) Mean Corpuscular Volume 81 FL (80-99) Mean Corpuscular Hemoglobin 27.4 PG (27.0-31.0) Mean Corpuscular Hemoglobin Concent 33.9 G/DL (32.0-36.0) Red Cell Distribution Width 17.2 % (11.6-14.8) H Platelet Count 301 K/UL (150-450) Mean Platelet Volume 11.3 FL (6.5-10.1) H Neutrophils (%) (Auto) 62.9 % (45.0-75.0) Lymphocytes (%) (Auto) 28.4 % (20.0-45.0) Monocytes (%) (Auto) 6.5 % (1.0-10.0) Eosinophils (%) (Auto) 0.5 % (0.0-3.0) Basophils (%) (Auto) 1.8 % (0.0-2.0) Prothrombin Time 11.4 SEC (9.30-11.50) Prothromb Time International Ratio 1.0 (0.9-1.1) Activated Partial Thromboplast Time 24 SEC (23-33) D-Dimer 22.23 mg/L FEU (0.00-0.49) H Urine Color Pale yellow Urine Appearance Slightly cloudy Urine pH 7 (4.5-8.0) Urine Specific [place] 1.005 (1.005-1.035) Urine Protein 2+ (NEGATIVE) H Urine Glucose (UA) Negative (NEGATIVE) Urine Ketones Negative (NEGATIVE) Urine Blood 5+ (NEGATIVE) H Urine Nitrite Negative (NEGATIVE) Urine Bilirubin Negative (NEGATIVE) Urine Urobilinogen Normal MG/DL (0.0-1.0) Urine Leukocyte Esterase 3+ (NEGATIVE) H Urine RBC 15-20 /HPF (0 - 0) H Urine WBC 20-30 /HPF (0 - 0) H Urine Squamous Epithelial Cells None /LPF (NONE/OCC) Urine Bacteria Many /HPF (NONE) H Lactic Acid Level 5.30 mmol/L (0.4-2.0) H 6.30 mmol/L (0.66-2.22) H Troponin I 0.037 ng/mL (0.000-0.056) Arterial Blood pH 7.496 (7.350-7.450) 7.447 (7.350-7.450) Arterial Blood Partial Pressure CO2 30.8 mmHg (35.0-45.0) L 28.8 mmHg (35.0-45.0) L Arterial Blood Partial Pressure O2 53.4 mmHg (75.0-100.0) L 95.0 mmHg (75.0-100.0) Arterial Blood HCO3 23.3 mmol/L (22.0-26.0) 19.4 mmol/L (22.0-26.0) L Arterial Blood Oxygen Saturation 86.8 % (95-100) *L 95.2 % (95-100) Arterial Blood Base Excess 0.9 (-2-2) -3.5 (-2-2) L Raz Test Positive Positive Sodium Level 155 MMOL/L (136-145) H Potassium Level 5.1 MMOL/L (3.5-5.1) Chloride Level 116 MMOL/L (98-107) H Carbon Dioxide Level 27 MMOL/L (21-32) Anion Gap 12 mmol/L (5-15) Blood Urea Nitrogen 103 mg/dL (7-18) H Creatinine 2.6 MG/DL (0.55-1.30) H Estimat Glomerular Filtration Rate 29.0 mL/min (>60) Glucose Level 541 MG/DL (74-106) *H Calcium Level 9.1 MG/DL (8.5-10.1) Ferritin 25 NG/ML (8-388) Total Bilirubin 0.3 MG/DL (0.2-1.0) Aspartate Amino Transf (AST/SGOT) 21 U/L (15-37) Alanine Aminotransferase (ALT/SGPT) 19 U/L (12-78) Alkaline Phosphatase 101 U/L (46-116) Lactate Dehydrogenase 224 U/L (81-234) Total Creatine Kinase 295 U/L (26-308) C-Reactive Protein, Quantitative 12.6 mg/dL (0.00-0.90) H Pro-B-Type Natriuretic Peptide 280 pg/mL (0-125) H Total Protein 8.4 G/DL (6.4-8.2) H Albumin 2.6 G/DL (3.4-5.0) L Globulin 5.8 g/dL Albumin/Globulin Ratio 0.4 (1.0-2.7) L Lipase 606 U/L (73-393) H Test 09/25/20 12:50 09/25/20 14:25 White Blood Count 10.4 K/UL (4.8-10.8) Red Blood Count 4.28 M/UL (4.70-6.10) L Hemoglobin 11.4 G/DL (14.2-18.0) L Hematocrit 35.7 % (42.0-52.0) L Mean Corpuscular Volume 83 FL (80-99) Mean Corpuscular Hemoglobin 26.5 PG (27.0-31.0) L Mean Corpuscular Hemoglobin Concent 31.8 G/DL (32.0-36.0) L Red Cell Distribution Width 16.0 % (11.6-14.8) H Platelet Count 166 K/UL (150-450) Mean Platelet Volume 9.8 FL (6.5-10.1) Neutrophils (%) (Auto) 57.9 % (45.0-75.0) Lymphocytes (%) (Auto) 30.6 % (20.0-45.0) Monocytes (%) (Auto) 8.9 % (1.0-10.0) Eosinophils (%) (Auto) 0.6 % (0.0-3.0) Basophils (%) (Auto) 2.0 % (0.0-2.0) Sodium Level 158 MMOL/L (136-145) H Potassium Level 4.8 MMOL/L (3.5-5.1) Chloride Level 125 MMOL/L (98-107) H Carbon Dioxide Level 15 MMOL/L (21-32) L Anion Gap 18 mmol/L (5-15) H Blood Urea Nitrogen 92 mg/dL (7-18) H Creatinine 2.7 MG/DL (0.55-1.30) H Estimat Glomerular Filtration Rate 27.8 mL/min (>60) Glucose Level 312 MG/DL (74-106) #H Calcium Level 7.4 MG/DL (8.5-10.1) L Total Bilirubin 0.3 MG/DL (0.2-1.0) Aspartate Amino Transf (AST/SGOT) 40 U/L (15-37) H Alanine Aminotransferase (ALT/SGPT) 16 U/L (12-78) Alkaline Phosphatase 72 U/L (46-116) Total Protein 5.9 G/DL (6.4-8.2) L Albumin 1.8 G/DL (3.4-5.0) L Globulin 4.1 g/dL Albumin/Globulin Ratio 0.4 (1.0-2.7) L Uric Acid 9.6 MG/DL (2.6-7.2) H Phosphorus Level 3.0 MG/DL (2.5-4.9) Magnesium Level 2.2 MG/DL (1.8-2.4) Current Medications Medications (Trade) Dose Ordered Sig/Debi Route PRN Reason Start Time Stop Time Status Last Admin Dose Admin Acetaminophen (Tylenol) 650 mg Q4H PRN ORAL fever 09/25/20 00:15 10/25/20 00:14 Albumin Human 500 ml @ 0 mls/hr Q0M IV 09/25/20 14:30 09/25/20 15:30 Albuterol/ Ipratropium (Albuterol/ Ipratropium) 3 ml Q4HRT PRN HHN Shortness of Breath 09/25/20 00:15 09/30/20 00:14 Ertapenem 0.5 gm/ Sodium Chloride 55 ml @ 110 mls/hr Q24H IV 09/25/20 12:00 09/30/20 11:59 09/25/20 14:22 Heparin Sodium (Porcine) (Heparin 5000 units/ml) 5,000 units EVERY 12 HOURS SUBQ 09/25/20 09:00 11/09/20 08:59 09/25/20 09:55 Lorazepam (Ativan 2mg/ml 1ml) 2 mg Q2H PRN IV For Anxiety 09/25/20 00:15 10/02/20 00:14 Morphine Sulfate (Morphine Sulfate) 4 mg Q4H PRN IVP Severe Pain (Pain Scale 7-10) 09/25/20 00:15 10/02/20 00:14 Norepinephrine Bitartrate 4 mg/ Dextrose 250 ml @ 0 mls/hr Q24H IV 09/25/20 13:00 09/28/20 12:59 09/25/20 13:51 Ondansetron HCl (Zofran) 4 mg Q6H PRN IVP Nausea & Vomiting 09/25/20 00:15 10/25/20 00:14 Pantoprazole (Protonix) 40 mg Q12HR IVP 09/25/20 21:00 10/25/20 08:59 Polyethylene Glycol (Miralax) 17 gm DAILYPRN PRN ORAL Constipation 09/25/20 00:15 10/25/20 00:14 Sodium Chloride 1,000 ml @ 125 mls/hr Q8H IV 09/25/20 15:00 10/25/20 14:59 Jose Cruz Harris MD Sep 25, 2020 14:59
--- NOTE | 2020-09-25 15:25 | History & Physical ---
History and Physical History & Physicial Dictated for Int Med-Dr Rome no. [id number]. Tello Cobb MD Sep 25, 2020 15:24
--- NOTE | 2020-09-25 16:45 | Consultation ---
DATE OF CONSULTATION: 09/25/2020 INFECTIOUS DISEASE CONSULTATION CONSULTING PHYSICIAN: Jose Cruz Harris MD REFERRING PHYSICIAN: Cirilo Rome MD REASON FOR CONSULTATION: Evaluation of patient for sepsis. HISTORY OF PRESENT ILLNESS: Patient is a 80-year-old male with multiple medical problems, who has been recently admitted to this medical center, now was brought [facility] this center due to fever and hypoxemia. Initially, patient was started on non-rebreather face mask. However, later patient was intubated. Infectious Disease consultation has been requested for evaluation of patient for sepsis and possible urinary tract infection. PAST MEDICAL HISTORY: 1. History of recent MSSA bacteremia. 2. History of recurrent UTI. 3. History of recent pneumonia. 4. History of recent C. diff colitis. 5. History of ESBL UTI in October 2019. 6. Diabetes. 7. Parkinson disease. 8. History of G-tube placement. ALLERGIES: No known drug allergies. SOCIAL HISTORY: Patient lives in a residential. FAMILY HISTORY: Unavailable. REVIEW OF SYSTEMS: Unobtainable. MEDICATIONS: Patient received one dose of vancomycin, amikacin, and ertapenem in the emergency room. Currently, patient is on ertapenem. PHYSICAL EXAMINATION: VITAL SIGNS: Temperature 103.6, blood pressure 103/68, pulse 85, respiratory rate 18. HEENT: Mild pale conjunctivae. No icterus. NECK: No lymphadenopathy. CHEST: Bilateral extension. ABDOMEN: Soft. G-tube in place. EXTREMITIES: No cyanosis at this time. NEUROLOGIC: Nonverbal. Nonresponsive. SKIN: No rash. LABORATORY DATA: White cells 10, hemoglobin 11, platelets 166. UA shows 20 to 30 white blood cells, 15 to 20 red blood cells. BUN 92, creatinine 2.9. Liver function tests were unremarkable. CRP 12.6. Cultures are pending. Chest x-ray, coarse bibasilar interstitial lung markings. ASSESSMENT: Patient is a 80-year-old male with. 1. Sepsis. 2. UTI, rule out recurrent bacteremia. 3. Rule out aspiration pneumonia. 4. Rule out COVID-19 (COVID antigen x1 was negative). 5. Sepsis/septic shock. PLAN: 1. We will continue patient on IV ertapenem, for additional coverage of MRSA empirically. 2. Monitor CBC. 3. Monitor BMP. 4. Monitor cultures (blood, urine, sputum). 5. COVID PCR. 6. We will keep patient in COVID isolation for now. 7. Monitor renal function. 8. Continue respiratory support. 9. If patient develops diarrhea, I will check for C. diff. 10. Based on patient's clinical course, we will do further recommendations. Thank you for this consultation. I will follow the patient with you. Jose Cruz Harris M.D. DR: ELVIA JOB#: [id number] CC:
[2020-09-25] MEDS: NovoLOG Insulin Flexpen SUBQ SCH ×2 (17:10→20:44)
--- NOTE | 2020-09-25 17:45 | History and Physical Report ---
DATE OF ADMISSION: 09/24/2020 CHIEF COMPLAINT: The patient is a 80-year-old male presents with chief complaint of fever and decreased oxygen saturation. HISTORY OF PRESENT ILLNESS: The patient is a resident of [facility]. The patient was admitted to [facility] in May of 2020. Please see history and physical and discharge summary dictated at that time. The patient apparently became hypoxic according to staff at [facility]. The patient had oxygen saturation in the 80s. The patient was transferred to [facility]. The patient is admitted for hypoxia to rule out COVID-19 versus hospital-acquired pneumonia. REVIEW OF SYSTEMS: Unable to assess secondary to the patient's mental status. PAST MEDICAL HISTORY: Significant for. 1. Hypertension. 2. Diabetes type 2. 3. Hypercholesterolemia. 4. Dysphagia. 5. Parkinson disease. 6. Ulcerative proctitis. 7. Protein-calorie malnutrition. 8. Benign prostatic hypertrophy. 9. History of left hip fracture. 10. Gastroesophageal reflux disease. 11. Metabolic encephalopathy. PAST SURGICAL HISTORY: Significant for: 1. PEG placement. 2. Open reduction and internal fixation of left hip fracture. CURRENT MEDICATIONS: 1. Tylenol 650 mg per G-tube q.6h., p.r.n. 2. Amantadine 100 mg p.o. twice daily. 3. Norvasc 10 mg p.o. daily. 4. Aspirin 81 mg one tablet p.o. daily. 5. Benazepril/hydrochlorothiazide 07/25.5 one tab p.o. daily. 6. Hydroxyurea 500 mg one tablet p.o. daily on odd days and two tablets p.o. daily on even days. 7. NovoLog sliding scale. 8. Metformin 1000 mg p.o. twice daily. 9. Zofran 4 mg p.o. per G-tube q.6h., p.r.n. 10. Pravastatin 20 mg p.o. at bedtime. 11. Flomax 0.4 mg p.o. at bedtime. ALLERGIES: No known drug allergies. SOCIAL HISTORY: The patient is single and is a resident of [facility]. The patient denies tobacco or alcohol use. PHYSICAL EXAMINATION: VITAL SIGNS: Temperature 103.5 degrees Fahrenheit, respiratory rate 24, pulse 138, blood pressure 130/83, pulse ox was 100% on mechanical ventilation with 60% FiO2. GENERAL: The patient is well-developed and well-nourished male, who is intubated and sedated. HEENT: Eyes, pupils are equal responsive to light and accommodation. Extraocular movements are intact. NECK: Supple without lymphadenopathy. CHEST: Decreased breath sounds bilateral bases, otherwise without wheezes or rales. CARDIOVASCULAR: Regular rate. S1 and S2 normal without murmurs, rubs, or gallops. ABDOMEN: Soft, nontender, and nondistended. Positive bowel sounds. No evidence of hepatosplenomegaly. Currently, no rebound or guarding noted. EXTREMITIES: Negative for clubbing, cyanosis, or edema. RECTAL/GENITAL: Not performed. NEUROLOGIC: Unable to assess. LABORATORY AND DIAGNOSTIC DATA: WBC 15.3, hemoglobin 14.7, hematocrit 43.3, platelets 301,000. Sodium 155, potassium 5.1, chloride 116, CO2 27, BUN 103, creatinine 2.6, glucose 541. Chest x-ray was reported as coarse interstitial bibasilar lung markings consistent with pneumonia. Blood gas pH 7.496, pCO2 30.8, pO2 53.4, bicarb 23.3, oxygen saturation 86.8, base excess positive 0.9. ASSESSMENT: This is a 80-year-old male. 1. Respiratory failure. 2. Bilateral pneumonia. 3. Hypertension. 4. Diabetes type 2. 5. Hypercholesterolemia. 6. Parkinson disease. 7. COVID-19 negative. 8. Ulcerative proctitis. 9. Benign prostatic hypertrophy. 10. Gastroesophageal reflux disease. 11. Urinary tract infection. TREATMENT: 1. Pneumonia/respiratory failure. Infectious diseases consultation has been obtained with Dr. Harris. A Pulmonary/Critical Care consultation has been obtained with Dr. Latanya Mckeon. The patient is currently intubated on the mechanical ventilator in the intensive care unit. The patient has been started empirically on vancomycin, amikacin, and ertapenem. Follow recommendation of Infectious Diseases. Await sputum cultures. 2. Urinary tract infection. Urine culture is pending. The patient has been started on ertapenem, amikacin, vancomycin as above. An Infectious Disease consultation has been obtained with Dr. Harris. 3. Hypertension. The patient is currently hypotensive. 4. Diabetes type 2. NovoLog sliding scale has been instituted. 5. Hypercholesterolemia. Continue simvastatin as above. 6. Parkinson disease. 7. Ulcerative proctitis. 8. Benign prostatic hypertrophy. 9. Gastroesophageal reflux disease. 10. Dysphagia. The patient is status post PEG placement. Tello Cobb M.D. DR: Jad JOB#: [id number] CC:
[2020-09-25] MEDS: Pantoprazole Inj IVP SCH (20:07)
[2020-09-25] MEDS ORDERED: Ertapenem 1 GM in NS 55 ML IV SCH (23:45)
[2020-09-25] MEDS ORDERED: Amikacin 0 MG in NS 110 ML IV SCH (23:45)
[2020-09-25] MEDS ORDERED: Vancomycin 1 GM in D5W 275 ML IV SCH (23:45)
[2020-09-26] VITALS (39 sets, daily range): BP systolic 90–150; BP diastolic 55–70
[2020-09-26] MEDS: NovoLOG Insulin Flexpen SUBQ SCH ×4 (05:33→21:00)
[2020-09-26 06:51] LABS: BASOPHILS % (AUTO) 0.6 % (0.0-2.0); EOSINOPHILS % (AUTO) 0.8 % (0.0-3.0); HEMATOCRIT 30.6 % (42.0-52.0); HEMOGLOBIN 10.3 G/DL (14.2-18.0); LYMPHOCYTES % (AUTO) 17.3 % (20.0-45.0); MEAN CORPUSCULAR VOLUME 81 FL (80-99); MONOCYTES % (AUTO) 4.6 % (1.0-10.0); NEUTROPHILS % (AUTO) 76.7 % (45.0-75.0); PLATELET COUNT 168 K/UL (150-450); RED BLOOD COUNT 3.79 M/UL (4.70-6.10); RED CELL DISTRIBUTION WIDTH 16.9 % (11.6-14.8); WHITE BLOOD COUNT 12.9 K/UL (4.8-10.8)
[2020-09-26 07:56] LABS: % IRON SATURATION 8 % (15-50); IRON 18 ug/dL (50-175); TOTAL IRON BINDING CAPACITY 233 ug/dL (250-450)
[2020-09-26 08:09] LABS: ALANINE AMINOTRANSFERASE 17 U/L (12-78); ALBUMIN 1.8 G/DL (3.4-5.0); ALBUMIN/GLOBULIN RATIO 0.3 (1.0-2.7); ALKALINE PHOSPHATASE 88 U/L (46-116); ANION GAP 16 mmol/L (5-15); ASPARTATE AMINO TRANSFERASE 33 U/L (15-37); BILIRUBIN,DIRECT 0.2 MG/DL (0.0-0.3); BILIRUBIN,TOTAL 0.4 MG/DL (0.2-1.0); BLOOD UREA NITROGEN 51 mg/dL (7-18); CALCIUM 7.8 MG/DL (8.5-10.1); CARBON DIOXIDE 17 MMOL/L (21-32); CHLORIDE 123 MMOL/L (98-107); CHOLESTEROL 158 MG/DL (< 200); FERRITIN 134 NG/ML (8-388); HDL CHOLESTEROL 17 MG/DL (40-60); POTASSIUM 3.2 MMOL/L (3.5-5.1); SODIUM 156 MMOL/L (136-145); TRIGLYCERIDES 386 MG/DL (30-150)
[2020-09-26 08:19] LABS: GAMMA GLUTAMYL TRANSPEPTIDASE 64 U/L (5-85); LACTATE DEHYDROGENASE 280 U/L (81-234); PHOSPHORUS 2.7 MG/DL (2.5-4.9)
--- NOTE | 2020-09-26 09:14 | Infectious Diseases Prog Note ---
Assessment/Plan 80yo M with: Sepsis, septic shock GPC bacteremia UTI 2/2 ESBL P.mirabilis R/o aspiration pna Febrile to 105, improving Leukocytosis to 15, improving 09/24 BCx GPCs UA 20-30 WBC, UCx ESBL P.mirabilis COVID rapid test neg, PCR p CXR: 1. Coarse bibasilar interstitial lung markings, may represent atypical nfectious process such as viral pneumonia versus pulmonary edema. 09/25 BCx p Resp cx p Cr 2.0, improving Plan: Increase ertapenem to 1g IV daily #2 for ESBL UTI Cont linezolid #2 for GPC bacteremia Repeat BCx today TTE Ensure mckinney exchanged since admission F/u GPCs in BCx and repeat BCx to ensure clearance of bacteremia F/u COVID PCR 09/25 F/u resp cx 09/25 Trend WBC Trend Cr 09/25 SP amikacin and vanco x1 Monitor CBC/CMP Monitor temp curve, hemodynamics Monitor resp status D/w RN Thank you for this consult. [facility] will continue to follow. Subjective Allergies: Coded Allergies: No Known Allergies (Unverified , 08/27/19) Improving temp curve WBC 12, improving NAD on vent 40% PEEP 0 Levo @8 Objective Last 24 Hour Vital Signs Date Time Temp Pulse Resp B/P (MAP) Pulse Ox O2 Delivery O2 Flow Rate FiO2 09/26/20 08:00 Mechanical Ventilator 09/26/20 08:00 131/64 09/26/20 07:00 115 18 128/60 (82) 100 09/26/20 07:00 128/60 09/26/20 06:28 118 18 09/26/20 06:14 127/63 09/26/20 06:00 117 20 127/63 (84) 100 09/26/20 06:00 127/83 09/26/20 05:00 113 19 120/63 (82) 100 09/26/20 05:00 120/63 09/26/20 04:00 112 21 131/63 (85) 100 09/26/20 04:00 112 09/26/20 04:00 Mechanical Ventilator 09/26/20 04:00 135/59 09/26/20 03:13 115 16 40 09/26/20 03:00 104/56 09/26/20 03:00 113 17 104/56 (72) 99 09/26/20 02:32 100.0 09/26/20 02:00 99.8 120 22 122/59 (80) 100 09/26/20 02:00 122/59 09/26/20 01:00 113 18 130/62 (84) 100 09/26/20 01:00 116/59 09/26/20 00:00 112/62 09/26/20 00:00 125 09/26/20 00:00 Mechanical Ventilator 09/26/20 00:00 117 16 93/55 (68) 100 09/25/20 23:26 119 16 40 09/25/20 23:00 120 17 83/50 (61) 100 09/25/20 23:00 100/53 09/25/20 22:28 99.9 09/25/20 22:23 120/58 09/25/20 22:00 114 19 115/61 (79) 100 09/25/20 22:00 126/61 09/25/20 21:00 106/54 09/25/20 21:00 114 19 107/55 (72) 100 09/25/20 20:02 110 17 40 09/25/20 20:00 113 09/25/20 20:00 120/62 09/25/20 20:00 112 20 120/62 (81) 98 09/25/20 20:00 Mechanical Ventilator 09/25/20 19:00 120/58 09/25/20 19:00 117 17 108/59 (75) 99 09/25/20 18:30 121 18 113/55 (74) 100 09/25/20 18:00 122 18 95/56 (69) 100 09/25/20 18:00 95/56 09/25/20 17:38 102.0 09/25/20 17:30 119 19 107/54 (71) 100 09/25/20 17:00 107/54 09/25/20 17:00 101.8 118 18 98/55 (69) 100 09/25/20 16:30 118 18 99/50 (66) 100 09/25/20 16:00 102.2 09/25/20 16:00 50.0 09/25/20 16:00 118 18 102/59 (73) 100 09/25/20 16:00 104/57 12/13/20 16:00 Mechanical Ventilator 50.0 09/25/20 16:00 119 09/25/20 15:30 119 18 97/56 (70) 99 09/25/20 15:15 120 16 40 09/25/20 15:00 119 17 104/57 (73) 99 09/25/20 15:00 94/52 09/25/20 14:30 116 17 98/54 (69) 100 09/25/20 14:00 127/57 09/25/20 14:00 118 18 100/57 (71) 99 09/25/20 13:51 92/54 09/25/20 13:00 102.0 117 18 94/52 (66) 100 09/25/20 12:30 40.0 09/25/20 12:24 Mechanical Ventilator 50.0 09/25/20 11:34 118 22 40 09/25/20 11:32 118 20 100 Endotrachael Tube 40 09/25/20 11:13 103.6 85 18 103/68 100 Mechanical Ventilator 50 09/25/20 10:15 103.6 74 20 101/66 100 Mechanical Ventilator 50 09/25/20 09:20 103.6 88 16 102/60 100 Mechanical Ventilator 50 Height (Feet): 5 Height (Inches): 10.00 Weight (Pounds): 180 Gen: NAD HEENT: NCAT Pulm: BL chest rise Abd: Non-distended Ext: No c/c/e Skin: No visible rashes Neuro: Awake Lines: R fem CVC Microbiology Date/Time Source Procedure Growth Status 09/25/20 10:15 Rectum Received 09/24/20 19:55 Blood Blood Culture - Preliminary Gram Positive Cocci Resulted 09/24/20 19:45 Urine,Clean Catch Urine Culture - Preliminary Proteus Mirabilis Resulted 09/24/20 19:45 Nasopharynx SARS-CoV-2 RdRp Gene Assay - Final Complete 09/24/20 19:45 Blood Blood Culture - Preliminary Gram Positive Cocci Resulted Laboratory Tests Test 09/25/20 12:50 09/25/20 14:25 09/25/20 20:41 09/25/20 23:05 White Blood Count 10.4 K/UL (4.8-10.8) Red Blood Count 4.28 M/UL (4.70-6.10) L Hemoglobin 11.4 G/DL (14.2-18.0) L Hematocrit 35.7 % (42.0-52.0) L Mean Corpuscular Volume 83 FL (80-99) Mean Corpuscular Hemoglobin 26.5 PG (27.0-31.0) L Mean Corpuscular Hemoglobin Concent 31.8 G/DL (32.0-36.0) L Red Cell Distribution Width 16.0 % (11.6-14.8) H Platelet Count 166 K/UL (150-450) Mean Platelet Volume 9.8 FL (6.5-10.1) Neutrophils (%) (Auto) 57.9 % (45.0-75.0) Lymphocytes (%) (Auto) 30.6 % (20.0-45.0) Monocytes (%) (Auto) 8.9 % (1.0-10.0) Eosinophils (%) (Auto) 0.6 % (0.0-3.0) Basophils (%) (Auto) 2.0 % (0.0-2.0) Sodium Level 158 MMOL/L (136-145) H Potassium Level 4.8 MMOL/L (3.5-5.1) Chloride Level 125 MMOL/L (98-107) H Carbon Dioxide Level 15 MMOL/L (21-32) L Anion Gap 18 mmol/L (5-15) H Blood Urea Nitrogen 92 mg/dL (7-18) H Creatinine 2.7 MG/DL (0.55-1.30) H Estimat Glomerular Filtration Rate 27.8 mL/min (>60) Glucose Level 312 MG/DL (74-106) #H Hemoglobin A1c 8.1 % (4.3-6.0) H Calcium Level 7.4 MG/DL (8.5-10.1) L Total Bilirubin 0.3 MG/DL (0.2-1.0) Aspartate Amino Transf (AST/SGOT) 40 U/L (15-37) H Alanine Aminotransferase (ALT/SGPT) 16 U/L (12-78) Alkaline Phosphatase 72 U/L (46-116) Total Protein 5.9 G/DL (6.4-8.2) L Albumin 1.8 G/DL (3.4-5.0) L Globulin 4.1 g/dL Albumin/Globulin Ratio 0.4 (1.0-2.7) L Uric Acid 9.6 MG/DL (2.6-7.2) H Phosphorus Level 3.0 MG/DL (2.5-4.9) Magnesium Level 2.2 MG/DL (1.8-2.4) POC Whole Blood Glucose 362 MG/DL (74-106) H Random Amikacin Level Pending Test 09/26/20 06:12 White Blood Count 12.9 K/UL (4.8-10.8) H Red Blood Count 3.79 M/UL (4.70-6.10) L Hemoglobin 10.3 G/DL (14.2-18.0) L Hematocrit 30.6 % (42.0-52.0) L Mean Corpuscular Volume 81 FL (80-99) Mean Corpuscular Hemoglobin 27.1 PG (27.0-31.0) Mean Corpuscular Hemoglobin Concent 33.6 G/DL (32.0-36.0) Red Cell Distribution Width 16.9 % (11.6-14.8) H Platelet Count 168 K/UL (150-450) Mean Platelet Volume 10.9 FL (6.5-10.1) H Neutrophils (%) (Auto) 76.7 % (45.0-75.0) H Lymphocytes (%) (Auto) 17.3 % (20.0-45.0) L Monocytes (%) (Auto) 4.6 % (1.0-10.0) Eosinophils (%) (Auto) 0.8 % (0.0-3.0) Basophils (%) (Auto) 0.6 % (0.0-2.0) Sodium Level 156 MMOL/L (136-145) H Potassium Level 3.2 MMOL/L (3.5-5.1) L Chloride Level 123 MMOL/L (98-107) H Carbon Dioxide Level 17 MMOL/L (21-32) L Anion Gap 16 mmol/L (5-15) H Blood Urea Nitrogen 51 mg/dL (7-18) H Creatinine 2.0 MG/DL (0.55-1.30) H Estimat Glomerular Filtration Rate 39.3 mL/min (>60) Glucose Level 428 MG/DL (74-106) #H Hemoglobin A1c 7.8 % (4.3-6.0) H Lactic Acid Level 1.40 mmol/L (0.4-2.0) Uric Acid 8.2 MG/DL (2.6-7.2) H Calcium Level 7.8 MG/DL (8.5-10.1) L Phosphorus Level 2.7 MG/DL (2.5-4.9) Magnesium Level 1.9 MG/DL (1.8-2.4) Iron Level 18 ug/dL (50-175) L Total Iron Binding Capacity 233 ug/dL (250-450) L Percent Iron Saturation 8 % (15-50) L Unsaturated Iron Binding 215 ug/dL (112-346) Ferritin 134 NG/ML (8-388) Total Bilirubin 0.4 MG/DL (0.2-1.0) Direct Bilirubin 0.2 MG/DL (0.0-0.3) Gamma Glutamyl Transpeptidase 64 U/L (5-85) Aspartate Amino Transf (AST/SGOT) 33 U/L (15-37) Alanine Aminotransferase (ALT/SGPT) 17 U/L (12-78) Alkaline Phosphatase 88 U/L (46-116) Lactate Dehydrogenase 280 U/L (81-234) H Troponin I 0.186 ng/mL (0.000-0.056) C-Reactive Protein, Quantitative 56.9 mg/dL (0.00-0.90) H Pro-B-Type Natriuretic Peptide Pending Total Protein 7.0 G/DL (6.4-8.2) Albumin 1.8 G/DL (3.4-5.0) L Globulin 5.2 g/dL Albumin/Globulin Ratio 0.3 (1.0-2.7) L Triglycerides Level 386 MG/DL (30-150) H Cholesterol Level 158 MG/DL (< 200) LDL Cholesterol 57 mg/dL (<100) HDL Cholesterol 17 MG/DL (40-60) L Cholesterol/HDL Ratio 9.3 (3.3-4.4) H Lipase 619 U/L (73-393) H Vitamin B12 Level 330 PG/ML (193-986) Folate 27.7 NG/ML (8.6-58.9) Thyroid Stimulating Hormone (TSH) 1.979 uiU/mL (0.358-3.740) Current Medications Medications (Trade) Dose Ordered Sig/Debi Route PRN Reason Start Time Stop Time Status Last Admin Dose Admin Acetaminophen (Tylenol) 650 mg Q4H PRN ORAL fever 09/25/20 00:15 10/25/20 00:14 09/26/20 02:02 Albuterol/ Ipratropium (Albuterol/ Ipratropium) 3 ml Q4HRT PRN HHN Shortness of Breath 09/25/20 00:15 09/30/20 00:14 Chlorhexidine Gluconate (Jazmin-Hex 2%) 1 applic DAILY@2000 TOPIC 09/26/20 20:00 12/25/20 19:59 Dextrose (Dextrose 50%) 25 ml Q30M PRN IV Hypoglycemia 09/25/20 15:30 12/24/20 15:29 Dextrose (Dextrose 50%) 50 ml Q30M PRN IV Hypoglycemia 09/25/20 15:30 12/24/20 15:29 Ertapenem 0.5 gm/ Sodium Chloride 55 ml @ 110 mls/hr Q24H IV 09/25/20 12:00 09/30/20 11:59 09/25/20 14:22 Heparin Sodium (Porcine) (Heparin 5000 units/ml) 5,000 units EVERY 12 HOURS SUBQ 09/25/20 09:00 11/09/20 08:59 09/25/20 20:09 Insulin Aspart (NovoLOG) BEFORE MEALS AND HS SUBQ 09/25/20 16:30 12/24/20 16:29 09/26/20 05:33 Linezolid 300 ml @ 300 mls/hr Q12HR IVPB 09/25/20 21:00 10/02/20 20:59 09/25/20 20:07 Lorazepam (Ativan 2mg/ml 1ml) 2 mg Q2H PRN IV For Anxiety 09/25/20 00:15 10/02/20 00:14 Morphine Sulfate (Morphine Sulfate) 4 mg Q4H PRN IVP Severe Pain (Pain Scale 7-10) 09/25/20 00:15 10/02/20 00:14 Norepinephrine Bitartrate 4 mg/ Dextrose 250 ml @ 0 mls/hr Q24H IV 09/25/20 13:00 09/28/20 12:59 09/26/20 06:14 Ondansetron HCl (Zofran) 4 mg Q6H PRN IVP Nausea & Vomiting 09/25/20 00:15 10/25/20 00:14 Pantoprazole (Protonix) 40 mg Q12HR IVP 09/25/20 21:00 10/25/20 08:59 09/25/20 20:07 Polyethylene Glycol (Miralax) 17 gm DAILYPRN PRN ORAL Constipation 09/25/20 00:15 10/25/20 00:14 Sodium Chloride 1,000 ml @ 125 mls/hr Q8H IV 09/25/20 15:00 10/25/20 14:59 09/26/20 05:33 Marixa Oliva M.D. Sep 26, 2020 09:14
[2020-09-26] MEDS: Pantoprazole Inj IVP SCH ×2 (09:24→21:15)
[2020-09-26] MEDS: Heparin 5000 units/ml inj SUBQ SCH ×2 (09:24→21:17)
[2020-09-26] MEDS: Ertapenem 1 GM in NS 55 ML IV SCH (11:39)
--- NOTE | 2020-09-26 13:02 | Diagnostic Imaging Report ---
Indication: Shortness of breath Technique: One view of the chest Comparison: 09/24/2020 Findings: Interim endotracheal tube placement. Tip in satisfactory position, approximately 6 cm above the rika. Equivocal slight interstitial prominence is unchanged. The heart size is normal. Impression: Satisfactory endotracheal intubation Otherwise unchanged over 2 days
--- NOTE | 2020-09-26 16:19 | Nephrology Progress Note ---
Assessment/Plan Problem List: (1) KELLY (acute kidney injury) (2) Dehydration (3) Hypernatremia (4) Severe sepsis (5) History of CVA (cerebrovascular accident) (6) Parkinson disease (7) Acute respiratory failure (8) Elevated lipase Assessment KELLY, Hypernatremia, dehydration, free water deficit Sepsis Acute respiratory failure requiring intubation and mechanical ventilation Diabetes mellitus [id number] GT feeding History of CVA History of hypertension Parkinson's disease Elevated lipase Plan September 26: IV fluids stopped. Patient receiving free water reviewed NG tube. Patient full code. Intubated on ventilator. Discussed with JOHNNY Christensen. Continue to monitor renal parameters. Serum creatinine lower but abnormal electrolyte persists and was addressed. Previously: IV fluid half-normal saline 125 cc an hour Albumin fluid challenge Monitor electrolytes Monitor renal parameters Hold blood pressure medication since blood pressure low Per orders, per consultants Subjective ROS Limited/Unobtainable: Yes Objective Objective Last 24 Hour Vital Signs Date Time Temp Pulse Resp B/P (MAP) Pulse Ox O2 Delivery O2 Flow Rate FiO2 09/26/20 16:00 134/67 09/26/20 15:30 104 16 125/67 (86) 100 09/26/20 15:00 104 16 129/70 (89) 100 09/26/20 15:00 129/70 09/26/20 14:30 98 16 133/65 (87) 100 09/26/20 14:15 125/61 09/26/20 14:00 115/59 09/26/20 14:00 95 16 125/61 (82) 100 09/26/20 13:30 96 16 129/64 (85) 100 09/26/20 13:00 114/68 09/26/20 13:00 99 16 110/60 (77) 99 09/26/20 12:30 102 16 118/61 (80) 99 09/26/20 12:00 100.0 104 16 113/61 (78) 99 09/26/20 12:00 Mechanical Ventilator 09/26/20 12:00 40.0 09/26/20 12:00 118/61 09/26/20 11:30 108 16 102/61 (75) 99 09/26/20 11:00 107/61 09/26/20 11:00 101.0 09/26/20 11:00 111 18 107/61 (76) 100 09/26/20 10:00 122/62 09/26/20 10:00 112 19 129/63 (85) 100 09/26/20 09:30 112 19 131/60 (83) 100 09/26/20 09:00 123/68 09/26/20 09:00 113 18 136/68 (90) 100 09/26/20 08:30 111 18 128/63 (84) 100 09/26/20 08:00 100.4 113 21 150/64 (92) 100 09/26/20 08:00 Mechanical Ventilator 09/26/20 08:00 131/64 09/26/20 07:00 115 18 128/60 (82) 100 09/26/20 07:00 128/60 09/26/20 06:28 118 18 09/26/20 06:14 127/63 09/26/20 06:00 117 20 127/63 (84) 100 09/26/20 06:00 127/83 09/26/20 05:00 113 19 120/63 (82) 100 09/26/20 05:00 120/63 09/26/20 04:00 112 21 131/63 (85) 100 09/26/20 04:00 112 09/26/20 04:00 Mechanical Ventilator 09/26/20 04:00 135/59 09/26/20 03:13 115 16 40 09/26/20 03:00 104/56 09/26/20 03:00 113 17 104/56 (72) 99 09/26/20 02:32 100.0 09/26/20 02:00 99.8 120 22 122/59 (80) 100 09/26/20 02:00 122/59 09/26/20 01:00 113 18 130/62 (84) 100 09/26/20 01:00 116/59 09/26/20 00:00 112/62 09/26/20 00:00 125 09/26/20 00:00 Mechanical Ventilator 09/26/20 00:00 117 16 93/55 (68) 100 09/25/20 23:26 119 16 40 09/25/20 23:00 120 17 83/50 (61) 100 09/25/20 23:00 100/53 09/25/20 22:28 99.9 09/25/20 22:23 120/58 09/25/20 22:00 114 19 115/61 (79) 100 09/25/20 22:00 126/61 09/25/20 21:00 106/54 09/25/20 21:00 114 19 107/55 (72) 100 09/25/20 20:02 110 17 40 09/25/20 20:00 113 09/25/20 20:00 120/62 09/25/20 20:00 112 20 120/62 (81) 98 09/25/20 20:00 Mechanical Ventilator 09/25/20 19:00 120/58 09/25/20 19:00 117 17 108/59 (75) 99 09/25/20 18:30 121 18 113/55 (74) 100 09/25/20 18:00 122 18 95/56 (69) 100 09/25/20 18:00 95/56 09/25/20 17:38 102.0 09/25/20 17:30 119 19 107/54 (71) 100 09/25/20 17:00 107/54 09/25/20 17:00 101.8 118 18 98/55 (69) 100 09/25/20 16:30 118 18 99/50 (66) 100 Intake and Output 09/25/20 09/26/20 19:00 07:00 Intake Total 1073.880 ml 535 ml Output Total 760 ml 760 ml Balance 313.880 ml -225 ml Intake Free Water 50 ml IV Total 1073.880 ml 485 ml Output Urine Total 760 ml 760 ml Current Medications Medications (Trade) Dose Ordered Sig/Debi Route PRN Reason Start Time Stop Time Status Last Admin Dose Admin Acetaminophen (Tylenol) 650 mg Q4H PRN ORAL fever 09/25/20 00:15 10/25/20 00:14 09/26/20 10:30 Albuterol/ Ipratropium (Albuterol/ Ipratropium) 3 ml Q4HRT PRN HHN Shortness of Breath 09/25/20 00:15 09/30/20 00:14 Chlorhexidine Gluconate (Jazmin-Hex 2%) 1 applic DAILY@1999 TOPIC 09/26/20 20:00 12/25/20 19:59 Dextrose (Dextrose 50%) 25 ml Q30M PRN IV Hypoglycemia 09/25/20 15:30 12/24/20 15:29 Dextrose (Dextrose 50%) 50 ml Q30M PRN IV Hypoglycemia 09/25/20 15:30 12/24/20 15:29 Ertapenem 1 gm/ Sodium Chloride 55 ml @ 110 mls/hr Q24H IV 09/26/20 12:00 09/30/20 11:59 UNV 09/26/20 11:39 Heparin Sodium (Porcine) (Heparin 5000 units/ml) 5,000 units EVERY 12 HOURS SUBQ 09/25/20 09:00 11/09/20 08:59 09/26/20 09:24 Insulin Aspart (NovoLOG) BEFORE MEALS AND HS SUBQ 09/25/20 16:30 12/24/20 16:29 09/26/20 16:05 Linezolid 300 ml @ 300 mls/hr Q12HR IVPB 09/25/20 21:00 10/02/20 20:59 09/26/20 09:24 Lorazepam (Ativan 2mg/ml 1ml) 2 mg Q2H PRN IV For Anxiety 09/25/20 00:15 10/02/20 00:14 Morphine Sulfate (Morphine Sulfate) 4 mg Q4H PRN IVP Severe Pain (Pain Scale 7-10) 09/25/20 00:15 10/02/20 00:14 Norepinephrine Bitartrate 4 mg/ Dextrose 250 ml @ 0 mls/hr Q24H IV 09/25/20 13:00 09/28/20 12:59 09/26/20 14:15 Ondansetron HCl (Zofran) 4 mg Q6H PRN IVP Nausea & Vomiting 09/25/20 00:15 10/25/20 00:14 Pantoprazole (Protonix) 40 mg Q12HR IVP 09/25/20 21:00 10/25/20 08:59 09/26/20 09:24 Polyethylene Glycol (Miralax) 17 gm DAILYPRN PRN ORAL Constipation 09/25/20 00:15 10/25/20 00:14 Potassium Chloride 100 ml @ 50 mls/hr Q2H IVPB 09/26/20 13:00 09/26/20 16:59 09/26/20 15:54 Laboratory Tests 09/25/20 20:41: POC Whole Blood Glucose 362H 09/25/20 23:05: Random Amikacin Level 14.3 09/26/20 06:12: White Blood Count 12.9H, Red Blood Count 3.79L, Hemoglobin 10.3L, Hematocrit 30.6L, Mean Corpuscular Volume 81, Mean Corpuscular Hemoglobin 27.1, Mean Corpuscular Hemoglobin Concent 33.6, Red Cell Distribution Width 16.9H, Platelet Count 168, Mean Platelet Volume 10.9H, Neutrophils (%) (Auto) 76.7H, Lymphocytes (%) (Auto) 17.3L, Monocytes (%) (Auto) 4.6, Eosinophils (%) (Auto) 0.8, Basophils (%) (Auto) 0.6, Sodium Level 156H, Potassium Level 3.2L, Chloride Level 123H, Carbon Dioxide Level 17L, Anion Gap 16H, Blood Urea Nitrogen 51H, Creatinine 2.0H, Estimat Glomerular Filtration Rate 39.3, Glucose Level 428#H, Hemoglobin A1c 7.8H, Lactic Acid Level 1.40, Uric Acid 8.2H, Calcium Level 7.8L, Phosphorus Level 2.7, Magnesium Level 1.9, Iron Level 18L, Total Iron Binding Capacity 233L, Percent Iron Saturation 8L, Unsaturated Iron Binding 215, Ferritin 134, Total Bilirubin 0.4, Direct Bilirubin 0.2, Gamma Glutamyl Transpeptidase 64, Aspartate Amino Transf (AST/SGOT) 33, Alanine Aminotransferase (ALT/SGPT) 17, Alkaline Phosphatase 88, Lactate Dehydrogenase 280H, Troponin I 0.186H, C-Reactive Protein, Quantitative 56.9H, Pro-B-Type Natriuretic Peptide [Pending], Total Protein 7.0, Albumin 1.8L, Globulin 5.2, Albumin/Globulin Ratio 0.3L, Triglycerides Level 386H, Cholesterol Level 158, LDL Cholesterol 57, HDL Cholesterol 17L, Cholesterol/HDL Ratio 9.3H, Lipase 619H , Vitamin B12 Level 330, Folate 27.7, Thyroid Stimulating Hormone (TSH) 1.979 Height (Feet): 5 Height (Inches): 10.00 Weight (Pounds): 180 General Appearance: no apparent distress EENT: other - Intubated on ventilator Cardiovascular: tachycardia Respiratory/Chest: decreased breath sounds Abdomen: distended Eddie Nelson MD Sep 26, 2020 16:19
--- NOTE | 2020-09-26 16:32 | Surgery Progress Note ---
Surgery Progress Note Subjective Additional Comments ill appearing not responsive on support Objective Last 24 Hour Vital Signs Date Time Temp Pulse Resp B/P (MAP) Pulse Ox O2 Delivery O2 Flow Rate FiO2 09/26/20 16:00 134/67 09/26/20 16:00 Mechanical Ventilator 09/26/20 15:30 104 16 125/67 (86) 100 09/26/20 15:00 104 16 129/70 (89) 100 09/26/20 15:00 129/70 09/26/20 14:30 98 16 133/65 (87) 100 09/26/20 14:15 125/61 09/26/20 14:00 115/59 09/26/20 14:00 95 16 125/61 (82) 100 09/26/20 13:30 96 16 129/64 (85) 100 09/26/20 13:00 114/68 09/26/20 13:00 99 16 110/60 (77) 99 09/26/20 12:30 102 16 118/61 (80) 99 09/26/20 12:00 100.0 104 16 113/61 (78) 99 09/26/20 12:00 Mechanical Ventilator 09/26/20 12:00 40.0 09/26/20 12:00 118/61 09/26/20 11:30 108 16 102/61 (75) 99 09/26/20 11:00 107/61 09/26/20 11:00 101.0 09/26/20 11:00 111 18 107/61 (76) 100 09/26/20 10:00 122/62 09/26/20 10:00 112 19 129/63 (85) 100 09/26/20 09:30 112 19 131/60 (83) 100 09/26/20 09:00 123/68 09/26/20 09:00 113 18 136/68 (90) 100 09/26/20 08:30 111 18 128/63 (84) 100 09/26/20 08:00 100.4 113 21 150/64 (92) 100 09/26/20 08:00 Mechanical Ventilator 09/26/20 08:00 131/64 09/26/20 07:00 115 18 128/60 (82) 100 09/26/20 07:00 128/60 09/26/20 06:28 118 18 09/26/20 06:14 127/63 09/26/20 06:00 117 20 127/63 (84) 100 09/26/20 06:00 127/83 09/26/20 05:00 113 19 120/63 (82) 100 09/26/20 05:00 120/63 09/26/20 04:00 112 21 131/63 (85) 100 09/26/20 04:00 112 09/26/20 04:00 Mechanical Ventilator 09/26/20 04:00 135/59 09/26/20 03:13 115 16 40 09/26/20 03:00 104/56 09/26/20 03:00 113 17 104/56 (72) 99 09/26/20 02:32 100.0 09/26/20 02:00 99.8 120 22 122/59 (80) 100 09/26/20 02:00 122/59 09/26/20 01:00 113 18 130/62 (84) 100 09/26/20 01:00 116/59 09/26/20 00:00 112/62 09/26/20 00:00 125 09/26/20 00:00 Mechanical Ventilator 09/26/20 00:00 117 16 93/55 (68) 100 09/25/20 23:26 119 16 40 09/25/20 23:00 120 17 83/50 (61) 100 09/25/20 23:00 100/53 09/25/20 22:28 99.9 09/25/20 22:23 120/58 09/25/20 22:00 114 19 115/61 (79) 100 09/25/20 22:00 126/61 09/25/20 21:00 106/54 09/25/20 21:00 114 19 107/55 (72) 100 09/25/20 20:02 110 17 40 09/25/20 20:00 113 09/25/20 20:00 120/62 09/25/20 20:00 112 20 120/62 (81) 98 09/25/20 20:00 Mechanical Ventilator 09/25/20 19:00 120/58 09/25/20 19:00 117 17 108/59 (75) 99 09/25/20 18:30 121 18 113/55 (74) 100 09/25/20 18:00 122 18 95/56 (69) 100 09/25/20 18:00 95/56 09/25/20 17:38 102.0 09/25/20 17:30 119 19 107/54 (71) 100 09/25/20 17:00 107/54 09/25/20 17:00 101.8 118 18 98/55 (69) 100 I&O Intake and Output 09/25/20 09/26/20 19:00 07:00 Intake Total 1073.880 ml 535 ml Output Total 760 ml 760 ml Balance 313.880 ml -225 ml Intake Free Water 50 ml IV Total 1073.880 ml 485 ml Output Urine Total 760 ml 760 ml Dressing: saturated Cardiovascular: RSR Respiratory: decreased breath sounds Abdomen: non-tender, present bowel sounds Extremities: no tenderness, no cyanosis, other Laboratory Tests Test 09/25/20 20:41 09/25/20 23:05 09/26/20 06:12 POC Whole Blood Glucose 362 MG/DL (74-106) H Random Amikacin Level 14.3 MG/L White Blood Count 12.9 K/UL (4.8-10.8) H Red Blood Count 3.79 M/UL (4.70-6.10) L Hemoglobin 10.3 G/DL (14.2-18.0) L Hematocrit 30.6 % (42.0-52.0) L Mean Corpuscular Volume 81 FL (80-99) Mean Corpuscular Hemoglobin 27.1 PG (27.0-31.0) Mean Corpuscular Hemoglobin Concent 33.6 G/DL (32.0-36.0) Red Cell Distribution Width 16.9 % (11.6-14.8) H Platelet Count 168 K/UL (150-450) Mean Platelet Volume 10.9 FL (6.5-10.1) H Neutrophils (%) (Auto) 76.7 % (45.0-75.0) H Lymphocytes (%) (Auto) 17.3 % (20.0-45.0) L Monocytes (%) (Auto) 4.6 % (1.0-10.0) Eosinophils (%) (Auto) 0.8 % (0.0-3.0) Basophils (%) (Auto) 0.6 % (0.0-2.0) Sodium Level 156 MMOL/L (136-145) H Potassium Level 3.2 MMOL/L (3.5-5.1) L Chloride Level 123 MMOL/L (98-107) H Carbon Dioxide Level 17 MMOL/L (21-32) L Anion Gap 16 mmol/L (5-15) H Blood Urea Nitrogen 51 mg/dL (7-18) H Creatinine 2.0 MG/DL (0.55-1.30) H Estimat Glomerular Filtration Rate 39.3 mL/min (>60) Glucose Level 428 MG/DL (74-106) #H Hemoglobin A1c 7.8 % (4.3-6.0) H Lactic Acid Level 1.40 mmol/L (0.4-2.0) Uric Acid 8.2 MG/DL (2.6-7.2) H Calcium Level 7.8 MG/DL (8.5-10.1) L Phosphorus Level 2.7 MG/DL (2.5-4.9) Magnesium Level 1.9 MG/DL (1.8-2.4) Iron Level 18 ug/dL (50-175) L Total Iron Binding Capacity 233 ug/dL (250-450) L Percent Iron Saturation 8 % (15-50) L Unsaturated Iron Binding 215 ug/dL (112-346) Ferritin 134 NG/ML (8-388) Total Bilirubin 0.4 MG/DL (0.2-1.0) Direct Bilirubin 0.2 MG/DL (0.0-0.3) Gamma Glutamyl Transpeptidase 64 U/L (5-85) Aspartate Amino Transf (AST/SGOT) 33 U/L (15-37) Alanine Aminotransferase (ALT/SGPT) 17 U/L (12-78) Alkaline Phosphatase 88 U/L (46-116) Lactate Dehydrogenase 280 U/L (81-234) H Troponin I 0.186 ng/mL (0.000-0.056) C-Reactive Protein, Quantitative 56.9 mg/dL (0.00-0.90) H Pro-B-Type Natriuretic Peptide Pending Total Protein 7.0 G/DL (6.4-8.2) Albumin 1.8 G/DL (3.4-5.0) L Globulin 5.2 g/dL Albumin/Globulin Ratio 0.3 (1.0-2.7) L Triglycerides Level 386 MG/DL (30-150) H Cholesterol Level 158 MG/DL (< 200) LDL Cholesterol 57 mg/dL (<100) HDL Cholesterol 17 MG/DL (40-60) L Cholesterol/HDL Ratio 9.3 (3.3-4.4) H Lipase 619 U/L (73-393) H Vitamin B12 Level 330 PG/ML (193-986) Folate 27.7 NG/ML (8.6-58.9) Thyroid Stimulating Hormone (TSH) 1.979 uiU/mL (0.358-3.740) Plan Problems: (1) Hypoxia (2) Severe sepsis Assessment & Plan: leukocytosis lactic acidosis anemia renal insufficiency on support in ICU dressings changed and care plan initiated cont abx trend labs if fluids am imaging ordered Pt presented on admission with purple and indurated area at Sacrococcygeal at previously compromised site(L)7cm x (W)3cm.Surrounding Hyperpigmentation at Sacrum. Non-Blanching erythema without fluctuance R heel. Non-Blanching erythema with delineated margins L heel (L)4.5cm x (W)5.5cm. L Heel is boggy . Tx.Plan: Apply Moisture Barrier Paste to Sacrum. Cover with Optifoam drsgs. Change every 3 days and prn. Apply Cavilon Skin Barrier to R and L trochanter. Cover each site with Optifoam drsgs. Change every 7 days and prn. Apply Cavilon Skin Barrier to each heel and malleoli. Cover each site with Optifoam drsgs. Change every 7 days and prn. Reposition at least every 2hours or as tolerated. Off-load heels with pillow. improving cont current care tube site okay DAILY ESTIMATED NEEDS: Needs based on Critical care, DM, Wound/ 53kg 22-30 kcals/kg 5314-6894 total kcals 1.25-2 g protein/kg 66-106 g total protein 25-30 mL/kg [address] total fluid mLs NUTRITION DIAGNOSIS: * Swallowing difficulty R/T dysphagia as evidenced by Pt is GT dep, currently orally intubated, on pressor support, NPO. CURRENT TF:NPO ENTERAL NUTRITION RECOMMENDATIONS: Glucerna 1.2 @ 55ml/hr x 24 hrs to provide 1320ml, 1584kcal, 79g prot, 1063ml free water * As medically appropriate and with hemodynamic stability -> initiate Glucerna 1.2 @ 25ml/hr x 6hrs, advance 10ml q 4-6 hrs as tolerated to goal rate * HOB over 30 degrees * H2O flush of 100ml q 6hrs --------- Without hemodynamic stability, rec trophic feeding of Glucerna 1.2 @ 10- 15ml/hr ADDITIONAL RECOMMENDATIONS: * Per SNF: HT=5'7" WT= 138lbs (as of Sep 13, 2020) * Monitor hemodyanmic stability: NE @ 8mcg * Wound healing: TF rec @ goal provides 100% RDI add Vit C 500mg QD + Terrance BID via TF * Monitor lytes, replete as needed (low K) * Monitor BGs, consider long acting insulin w/ TF Monitor closely for hypoglycemia while NPO (3) Dehydration (4) Hypernatremia (5) Clostridium difficile colitis (6) Staphylococcus aureus bacteremia (7) Hip fracture, left (8) Diabetes mellitus (9) History of hypertension (10) Severe protein-calorie malnutrition (11) Acute encephalopathy (12) Pressure Ulcer Of Sacral Region, Unstageable (13) Feeding by G-tube (14) Abdominal distention (15) Multiple drug resistant organism (MDRO) culture positive (16) Sepsis (17) History of CVA (cerebrovascular accident) (18) Parkinson disease James Breen Sep 26, 2020 16:32
--- NOTE | 2020-09-26 17:48 | Pulmonolgy Critical Care Note ---
Critical Care - Asmt/Plan Problems: (1) Acute respiratory failure (2) Severe sepsis (3) Diabetes mellitus (4) Severe protein-calorie malnutrition (5) History of hypertension (6) History of CVA (cerebrovascular accident) (7) Parkinson disease (8) Feeding by G-tube Respiratory: monitor respiratory rate, adjust FIO2, CXR Cardiac: continue to monitor HR/BP Renal: F/U I&O, keep IV fluid Infectious Disease: continue antibiotics Gastrointestinal: continue feedings/current rate Endocrine: monitor blood sugar, continue sliding scale insulin Hematologic: transfuse if hgb<8.5 Neurologic: PRN Ativan, PRN Morphine, keep patient comfortable Prophylaxis: Heparin Time Spent (Minutes): 40 Notes 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, 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, 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 Discussed with: nurses, consultants, 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 - Objective Last 24 Hour Vital Signs Date Time Temp Pulse Resp B/P (MAP) Pulse Ox O2 Delivery O2 Flow Rate FiO2 09/26/20 17:00 121/63 09/26/20 17:00 109 18 121/63 (82) 100 09/26/20 16:30 100.8 105 16 115/59 (77) 100 09/26/20 16:00 104 18 134/67 (89) 100 09/26/20 16:00 134/67 09/26/20 16:00 Mechanical Ventilator 09/26/20 15:30 104 16 125/67 (86) 100 09/26/20 15:10 101 17 40 09/26/20 15:00 104 16 129/70 (89) 100 09/26/20 15:00 129/70 09/26/20 14:30 98 16 133/65 (87) 100 09/26/20 14:15 125/61 09/26/20 14:00 115/59 09/26/20 14:00 95 16 125/61 (82) 100 09/26/20 13:30 96 16 129/64 (85) 100 09/26/20 13:00 114/68 09/26/20 13:00 99 16 110/60 (77) 99 09/26/20 12:30 102 16 118/61 (80) 99 09/26/20 12:00 100.0 104 16 113/61 (78) 99 09/26/20 12:00 Mechanical Ventilator 09/26/20 12:00 40.0 09/26/20 12:00 118/61 09/26/20 11:30 108 16 102/61 (75) 99 09/26/20 11:10 105 17 40 09/26/20 11:00 107/61 09/26/20 11:00 101.0 09/26/20 11:00 111 18 107/61 (76) 100 09/26/20 10:00 122/62 09/26/20 10:00 112 19 129/63 (85) 100 09/26/20 09:30 112 19 131/60 (83) 100 09/26/20 09:00 123/68 09/26/20 09:00 113 18 136/68 (90) 100 09/26/20 08:30 111 18 128/63 (84) 100 09/26/20 08:00 100.4 113 21 150/64 (92) 100 09/26/20 08:00 Mechanical Ventilator 09/26/20 08:00 131/64 09/26/20 07:00 115 18 128/60 (82) 100 09/26/20 07:00 128/60 09/26/20 06:45 115 18 40 09/26/20 06:28 118 18 09/26/20 06:14 127/63 09/26/20 06:00 117 20 127/63 (84) 100 09/26/20 06:00 127/83 09/26/20 05:00 113 19 120/63 (82) 100 09/26/20 05:00 120/63 09/26/20 04:00 112 21 131/63 (85) 100 09/26/20 04:00 112 09/26/20 04:00 Mechanical Ventilator 09/26/20 04:00 135/59 09/26/20 03:13 115 16 40 09/26/20 03:00 104/56 09/26/20 03:00 113 17 104/56 (72) 99 09/26/20 02:32 100.0 09/26/20 02:00 99.8 120 22 122/59 (80) 100 09/26/20 02:00 122/59 09/26/20 01:00 113 18 130/62 (84) 100 09/26/20 01:00 116/59 09/26/20 00:00 112/62 09/26/20 00:00 125 09/26/20 00:00 Mechanical Ventilator 09/26/20 00:00 117 16 93/55 (68) 100 09/25/20 23:26 119 16 40 09/25/20 23:00 120 17 83/50 (61) 100 09/25/20 23:00 100/53 09/25/20 22:28 99.9 09/25/20 22:23 120/58 09/25/20 22:00 114 19 115/61 (79) 100 09/25/20 22:00 126/61 09/25/20 21:00 106/54 09/25/20 21:00 114 19 107/55 (72) 100 09/25/20 20:02 110 17 40 09/25/20 20:00 113 09/25/20 20:00 120/62 09/25/20 20:00 112 20 120/62 (81) 98 09/25/20 20:00 Mechanical Ventilator 09/25/20 19:00 120/58 09/25/20 19:00 117 17 108/59 (75) 99 09/25/20 18:30 121 18 113/55 (74) 100 09/25/20 18:00 122 18 95/56 (69) 100 09/25/20 18:00 95/56 Status: sedated Condition: critical HEENT: atraumatic Heart: HR/BP stable Abdomen: soft, non-tender Micro: Microbiology Date/Time Source Procedure Growth Status 09/25/20 10:15 Rectum Received 09/24/20 19:55 Blood Blood Culture - Preliminary Gram Positive Cocci Resulted 09/24/20 19:45 Urine,Clean Catch Urine Culture - Preliminary Proteus Mirabilis Resulted 09/24/20 19:45 Nasopharynx SARS-CoV-2 RdRp Gene Assay - Final Complete 09/24/20 19:45 Blood Blood Culture - Preliminary Gram Positive Cocci Resulted Accucheck: 324 Critical Care - Subjective ROS Limited/Unobtainable: Yes Condition: critical EKG Rhythm: Sinus Rhythm FI02: 40 Vent Support Breath Rate: 16 Vent Support Mode: AC Vent Tidal Volume: 600 Sputum Amount: Small PEEP: 0.0 PIP: 28 Tube Feeding Amount: 75 I&O: Intake and Output 09/25/20 09/26/20 19:00 07:00 Intake Total 1073.880 ml 535 ml Output Total 760 ml 760 ml Balance 313.880 ml -225 ml Intake Free Water 50 ml IV Total 1073.880 ml 485 ml Output Urine Total 760 ml 760 ml ET-Tube: 7.0 ET Position: 23 Labs: Laboratory Tests Test 09/25/20 20:41 09/25/20 23:05 09/26/20 06:12 POC Whole Blood Glucose 362 MG/DL (74-106) H Random Amikacin Level 14.3 MG/L White Blood Count 12.9 K/UL (4.8-10.8) H Red Blood Count 3.79 M/UL (4.70-6.10) L Hemoglobin 10.3 G/DL (14.2-18.0) L Hematocrit 30.6 % (42.0-52.0) L Mean Corpuscular Volume 81 FL (80-99) Mean Corpuscular Hemoglobin 27.1 PG (27.0-31.0) Mean Corpuscular Hemoglobin Concent 33.6 G/DL (32.0-36.0) Red Cell Distribution Width 16.9 % (11.6-14.8) H Platelet Count 168 K/UL (150-450) Mean Platelet Volume 10.9 FL (6.5-10.1) H Neutrophils (%) (Auto) 76.7 % (45.0-75.0) H Lymphocytes (%) (Auto) 17.3 % (20.0-45.0) L Monocytes (%) (Auto) 4.6 % (1.0-10.0) Eosinophils (%) (Auto) 0.8 % (0.0-3.0) Basophils (%) (Auto) 0.6 % (0.0-2.0) Sodium Level 156 MMOL/L (136-145) H Potassium Level 3.2 MMOL/L (3.5-5.1) L Chloride Level 123 MMOL/L (98-107) H Carbon Dioxide Level 17 MMOL/L (21-32) L Anion Gap 16 mmol/L (5-15) H Blood Urea Nitrogen 51 mg/dL (7-18) H Creatinine 2.0 MG/DL (0.55-1.30) H Estimat Glomerular Filtration Rate 39.3 mL/min (>60) Glucose Level 428 MG/DL (74-106) #H Hemoglobin A1c 7.8 % (4.3-6.0) H Lactic Acid Level 1.40 mmol/L (0.4-2.0) Uric Acid 8.2 MG/DL (2.6-7.2) H Calcium Level 7.8 MG/DL (8.5-10.1) L Phosphorus Level 2.7 MG/DL (2.5-4.9) Magnesium Level 1.9 MG/DL (1.8-2.4) Iron Level 18 ug/dL (50-175) L Total Iron Binding Capacity 233 ug/dL (250-450) L Percent Iron Saturation 8 % (15-50) L Unsaturated Iron Binding 215 ug/dL (112-346) Ferritin 134 NG/ML (8-388) Total Bilirubin 0.4 MG/DL (0.2-1.0) Direct Bilirubin 0.2 MG/DL (0.0-0.3) Gamma Glutamyl Transpeptidase 64 U/L (5-85) Aspartate Amino Transf (AST/SGOT) 33 U/L (15-37) Alanine Aminotransferase (ALT/SGPT) 17 U/L (12-78) Alkaline Phosphatase 88 U/L (46-116) Lactate Dehydrogenase 280 U/L (81-234) H Troponin I 0.186 ng/mL (0.000-0.056) C-Reactive Protein, Quantitative 56.9 mg/dL (0.00-0.90) H Pro-B-Type Natriuretic Peptide Pending Total Protein 7.0 G/DL (6.4-8.2) Albumin 1.8 G/DL (3.4-5.0) L Globulin 5.2 g/dL Albumin/Globulin Ratio 0.3 (1.0-2.7) L Triglycerides Level 386 MG/DL (30-150) H Cholesterol Level 158 MG/DL (< 200) LDL Cholesterol 57 mg/dL (<100) HDL Cholesterol 17 MG/DL (40-60) L Cholesterol/HDL Ratio 9.3 (3.3-4.4) H Lipase 619 U/L (73-393) H Vitamin B12 Level 330 PG/ML (193-986) Folate 27.7 NG/ML (8.6-58.9) Thyroid Stimulating Hormone (TSH) 1.979 uiU/mL (0.358-3.740) Latanya Mckeon MD 14, 2020 17:48
--- NOTE | 2020-09-26 19:19 | Internal Med Progress Note ---
Subjective Date of Service: Sep 26, 2020 Physician Name Tello Cobb Attending Physician Cirilo Rome MD Current Medications Medications (Trade) Dose Ordered Sig/Debi Route PRN Reason Start Time Stop Time Status Last Admin Dose Admin Acetaminophen (Tylenol) 650 mg Q4H PRN ORAL fever 09/25/20 00:15 10/25/20 00:14 09/26/20 17:13 Albuterol/ Ipratropium (Albuterol/ Ipratropium) 3 ml Q4HRT PRN HHN Shortness of Breath 09/25/20 00:15 09/30/20 00:14 Chlorhexidine Gluconate (Jazmin-Hex 2%) 1 applic DAILY@2000 TOPIC 09/26/20 20:00 12/25/20 19:59 Dextrose (Dextrose 50%) 25 ml Q30M PRN IV Hypoglycemia 09/25/20 15:30 12/24/20 15:29 Dextrose (Dextrose 50%) 50 ml Q30M PRN IV Hypoglycemia 09/25/20 15:30 12/24/20 15:29 Ertapenem 1 gm/ Sodium Chloride 55 ml @ 110 mls/hr Q24H IV 09/26/20 12:00 09/30/20 11:59 UNV 09/26/20 11:39 Heparin Sodium (Porcine) (Heparin 5000 units/ml) 5,000 units EVERY 12 HOURS SUBQ 09/25/20 09:00 11/09/20 08:59 09/26/20 09:24 Insulin Aspart (NovoLOG) BEFORE MEALS AND HS SUBQ 09/25/20 16:30 12/24/20 16:29 09/26/20 16:05 Linezolid 300 ml @ 300 mls/hr Q12HR IVPB 09/25/20 21:00 10/02/20 20:59 09/26/20 09:24 Lorazepam (Ativan 2mg/ml 1ml) 2 mg Q2H PRN IV For Anxiety 09/25/20 00:15 10/02/20 00:14 Morphine Sulfate (Morphine Sulfate) 4 mg Q4H PRN IVP Severe Pain (Pain Scale 7-10) 09/25/20 00:15 10/02/20 00:14 Norepinephrine Bitartrate 4 mg/ Dextrose 250 ml @ 0 mls/hr Q24H IV 09/25/20 13:00 09/28/20 12:59 09/26/20 14:15 Ondansetron HCl (Zofran) 4 mg Q6H PRN IVP Nausea & Vomiting 09/25/20 00:15 10/25/20 00:14 Pantoprazole (Protonix) 40 mg Q12HR IVP 09/25/20 21:00 10/25/20 08:59 09/26/20 09:24 Polyethylene Glycol (Miralax) 17 gm DAILYPRN PRN ORAL Constipation 09/25/20 00:15 10/25/20 00:14 Allergies: Coded Allergies: No Known Allergies (Unverified , 08/27/19) ROS Limited/Unobtainable: Yes Subjective 80 YO M admitted with respiratory failure. Intubated and sedated. Cover for Int Dusty-DR Rome. ICU Objective Last Vital Signs Date Time Temp Pulse Resp B/P (MAP) Pulse Ox O2 Delivery O2 Flow Rate FiO2 09/26/20 19:00 112/62 09/26/20 19:00 101 16 100 09/26/20 17:43 100.0 09/26/20 16:00 40.0 09/26/20 16:00 Mechanical Ventilator 09/26/20 15:10 40 Laboratory Tests Test 09/25/20 20:41 09/25/20 23:05 09/26/20 06:12 POC Whole Blood Glucose 362 MG/DL (74-106) H Random Amikacin Level 14.3 MG/L White Blood Count 12.9 K/UL (4.8-10.8) H Red Blood Count 3.79 M/UL (4.70-6.10) L Hemoglobin 10.3 G/DL (14.2-18.0) L Hematocrit 30.6 % (42.0-52.0) L Mean Corpuscular Volume 81 FL (80-99) Mean Corpuscular Hemoglobin 27.1 PG (27.0-31.0) Mean Corpuscular Hemoglobin Concent 33.6 G/DL (32.0-36.0) Red Cell Distribution Width 16.9 % (11.6-14.8) H Platelet Count 168 K/UL (150-450) Mean Platelet Volume 10.9 FL (6.5-10.1) H Neutrophils (%) (Auto) 76.7 % (45.0-75.0) H Lymphocytes (%) (Auto) 17.3 % (20.0-45.0) L Monocytes (%) (Auto) 4.6 % (1.0-10.0) Eosinophils (%) (Auto) 0.8 % (0.0-3.0) Basophils (%) (Auto) 0.6 % (0.0-2.0) Sodium Level 156 MMOL/L (136-145) H Potassium Level 3.2 MMOL/L (3.5-5.1) L Chloride Level 123 MMOL/L (98-107) H Carbon Dioxide Level 17 MMOL/L (21-32) L Anion Gap 16 mmol/L (5-15) H Blood Urea Nitrogen 51 mg/dL (7-18) H Creatinine 2.0 MG/DL (0.55-1.30) H Estimat Glomerular Filtration Rate 39.3 mL/min (>60) Glucose Level 428 MG/DL (74-106) #H Hemoglobin A1c 7.8 % (4.3-6.0) H Lactic Acid Level 1.40 mmol/L (0.4-2.0) Uric Acid 8.2 MG/DL (2.6-7.2) H Calcium Level 7.8 MG/DL (8.5-10.1) L Phosphorus Level 2.7 MG/DL (2.5-4.9) Magnesium Level 1.9 MG/DL (1.8-2.4) Iron Level 18 ug/dL (50-175) L Total Iron Binding Capacity 233 ug/dL (250-450) L Percent Iron Saturation 8 % (15-50) L Unsaturated Iron Binding 215 ug/dL (112-346) Ferritin 134 NG/ML (8-388) Total Bilirubin 0.4 MG/DL (0.2-1.0) Direct Bilirubin 0.2 MG/DL (0.0-0.3) Gamma Glutamyl Transpeptidase 64 U/L (5-85) Aspartate Amino Transf (AST/SGOT) 33 U/L (15-37) Alanine Aminotransferase (ALT/SGPT) 17 U/L (12-78) Alkaline Phosphatase 88 U/L (46-116) Lactate Dehydrogenase 280 U/L (81-234) H Troponin I 0.186 ng/mL (0.000-0.056) C-Reactive Protein, Quantitative 56.9 mg/dL (0.00-0.90) H Pro-B-Type Natriuretic Peptide Pending Total Protein 7.0 G/DL (6.4-8.2) Albumin 1.8 G/DL (3.4-5.0) L Globulin 5.2 g/dL Albumin/Globulin Ratio 0.3 (1.0-2.7) L Triglycerides Level 386 MG/DL (30-150) H Cholesterol Level 158 MG/DL (< 200) LDL Cholesterol 57 mg/dL (<100) HDL Cholesterol 17 MG/DL (40-60) L Cholesterol/HDL Ratio 9.3 (3.3-4.4) H Lipase 619 U/L (73-393) H Vitamin B12 Level 330 PG/ML (193-986) Folate 27.7 NG/ML (8.6-58.9) Thyroid Stimulating Hormone (TSH) 1.979 uiU/mL (0.358-3.740) Microbiology Date/Time Source Procedure Growth Status 09/25/20 10:15 Rectum Received 09/24/20 19:55 Blood Blood Culture - Preliminary Gram Positive Cocci Resulted 09/24/20 19:45 Urine,Clean Catch Urine Culture - Preliminary Proteus Mirabilis Resulted 09/24/20 19:45 Nasopharynx SARS-CoV-2 RdRp Gene Assay - Final Complete 09/24/20 19:45 Blood Blood Culture - Preliminary Gram Positive Cocci Resulted Intake and Output 09/25/20 09/26/20 19:00 07:00 Intake Total 1073.880 ml 535 ml Output Total 760 ml 760 ml Balance 313.880 ml -225 ml Intake Free Water 50 ml IV Total 1073.880 ml 485 ml Output Urine Total 760 ml 760 ml Objective PHYSICAL EXAMINATION: VITAL SIGNS: Temperature 103.5 degrees Fahrenheit, respiratory rate 24, pulse 138, blood pressure 130/83, pulse ox was 100% on mechanical ventilation with 60% FiO2. GENERAL: The patient is well-developed and well-nourished male, who is intubated and sedated. HEENT: Eyes, pupils are equal responsive to light and accommodation. Extraocular movements are intact. NECK: Supple without lymphadenopathy. CHEST: Mech vent; Decreased breath sounds bilateral bases, otherwise without wheezes or rales. CARDIOVASCULAR: Regular rate. S1 and S2 normal without murmurs, rubs, or gallops. ABDOMEN: Soft, nontender, and nondistended. Positive bowel sounds. No evidence of hepatosplenomegaly. Currently, no rebound or guarding noted. EXTREMITIES: Negative for clubbing, cyanosis, or edema. RECTAL/GENITAL: Not performed. NEUROLOGIC: Unable to assess Assessment/Plan Assessment/Plan ASSESSMENT: This is a 80-year-old male. 1. Respiratory failure. 2. Bilateral pneumonia. 3. Hypertension. 4. Diabetes type 2. 5. Hypercholesterolemia. 6. Parkinson disease. 7. COVID-19 negative. 8. Ulcerative proctitis. 9. Benign prostatic hypertrophy. 10. Gastroesophageal reflux disease. 11. Urinary tract infection=proteus mirabilis 12. Sepsis=gram pos cocci TREATMENT: 1. Pneumonia/respiratory failure. Infectious diseases = Drs. Harris/Pj. A Pulmonary/Critical care= Dr. Latanya Mckeon. The patient is currently intubated on the mechanical ventilator in the intensive care unit. ABX= vancomycin, amikacin, and ertapenem. Follow recommendation of Infectious Diseases. Await sputumcultures. 2. Urinary tract infection. ABX= ertapenem, amikacin, vancomycin and linezolid. An Infectious Disease consultation has been obtained with Dr. Harris. 3. Hypertension. The patient is currently hypotensive. 4. Diabetes type 2. NovoLog sliding scale has been instituted. 5. Hypercholesterolemia. Continue simvastatin as above. 6. Parkinson disease. 7. Ulcerative proctitis. 8. Benign prostatic hypertrophy. 9. Gastroesophageal reflux disease. 10. Dysphagia. The patient is status post PEG placement. Tello Cobb MD Sep 26, 2020 19:18
[2020-09-26] MEDS: Dyna-Hex 2% Top Sol 2oz TOPIC SCH (20:27)
[2020-09-27] VITALS (29 sets, daily range): BP systolic 95–141; BP diastolic 50–68
[2020-09-27 04:56] LABS: BASOPHILS % (AUTO) 0.4 % (0.0-2.0); HEMATOCRIT 29.2 % (42.0-52.0); HEMOGLOBIN 9.8 G/DL (14.2-18.0); LYMPHOCYTES % (AUTO) 20.2 % (20.0-45.0); MEAN CORPUSCULAR VOLUME 81 FL (80-99); MONOCYTES % (AUTO) 2.5 % (1.0-10.0); NEUTROPHILS % (AUTO) 75.8 % (45.0-75.0); PLATELET COUNT 142 K/UL (150-450); RED BLOOD COUNT 3.59 M/UL (4.70-6.10); RED CELL DISTRIBUTION WIDTH 15.5 % (11.6-14.8); WHITE BLOOD COUNT 10.9 K/UL (4.8-10.8)
[2020-09-27 06:03] LABS: ALBUMIN 1.7 G/DL (3.4-5.0); ALBUMIN/GLOBULIN RATIO 0.3 (1.0-2.7); BILIRUBIN,TOTAL 0.5 MG/DL (0.2-1.0); CALCIUM 8.1 MG/DL (8.5-10.1); CREATININE 1.6 MG/DL (0.55-1.30); PHOSPHORUS 1.8 MG/DL (2.5-4.9); POTASSIUM 3.3 MMOL/L (3.5-5.1)
[2020-09-27] MEDS: NovoLOG Insulin Flexpen SUBQ SCH ×4 (06:17→21:06)
--- NOTE | 2020-09-27 08:02 | Infectious Diseases Prog Note ---
Assessment/Plan 80yo M with: Sepsis, septic shock GPC bacteremia UTI 2/2 ESBL P.mirabilis R/o aspiration pna Febrile to 105, improving Leukocytosis to 15, improving 09/24 BCx 2/2 CONS UA 20-30 WBC, UCx ESBL P.mirabilis COVID rapid test neg, PCR neg CXR: 1. Coarse bibasilar interstitial lung markings, may represent atypical nfectious process such as viral pneumonia versus pulmonary edema. 09/25 BCx NTD Resp cx p 09/26 CXR: No change management consultant 2 days Cr 2.0, improving Plan: Cont ertapenem 1g IV daily #3 for ESBL UTI Cont linezolid #3 for GPC bacteremia F/u repeat BCx 09/26, 09/25, ensure neg F/u TTE F/u resp cx 09/25 Trend WBC Trend Cr 09/25 SP amikacin and vanco x1 Monitor CBC/CMP Monitor temp curve, hemodynamics Monitor resp status D/w RN Thank you for this consult. [facility] will continue to follow. Subjective Allergies: Coded Allergies: No Known Allergies (Unverified , 08/27/19) Tmax 101, but improving temp curve WBC 10, improving NAD on vent COVID PCR neg Objective Last 24 Hour Vital Signs Date Time Temp Pulse Resp B/P (MAP) Pulse Ox O2 Delivery O2 Flow Rate FiO2 09/27/20 07:09 112 20 120/55 (76) 100 09/27/20 06:00 115 22 102/62 (75) 100 09/27/20 05:00 110 20 141/62 (88) 100 09/27/20 04:10 Mechanical Ventilator 09/27/20 04:10 40.0 09/27/20 04:10 111 09/27/20 04:00 98.3 105 20 134/67 (89) 100 09/27/20 03:30 110 20 134/63 (86) 100 09/27/20 03:00 111 25 125/68 (87) 100 09/27/20 03:00 125/68 09/27/20 02:31 110 19 40 09/27/20 02:30 112 20 120/62 (81) 100 09/27/20 02:00 108 18 117/59 (78) 100 09/27/20 02:00 117/59 09/27/20 01:30 110 16 126/60 (82) 100 09/27/20 01:00 107 20 122/64 (83) 100 09/27/20 01:00 122/64 09/27/20 00:30 105 20 122/60 (80) 100 09/27/20 00:00 Mechanical Ventilator 09/27/20 00:00 100.0 108 20 131/61 (84) 100 09/27/20 00:00 40.0 09/27/20 00:00 131/61 09/27/20 00:00 108 09/26/20 23:30 107 18 114/62 (79) 100 09/26/20 23:18 105/65 09/26/20 23:15 106 17 40 09/26/20 23:00 104 18 105/57 (73) 100 09/26/20 22:30 106 18 111/62 (78) 100 09/26/20 22:00 105 22 90/55 (67) 100 09/26/20 22:00 90/55 09/26/20 22:00 100.5 09/26/20 21:30 110 20 137/65 (89) 100 09/26/20 21:16 137/65 09/26/20 21:00 108 18 134/67 (89) 100 09/26/20 20:30 100.8 110 18 129/67 (87) 100 09/26/20 20:18 105 09/26/20 20:00 40.0 09/26/20 20:00 Mechanical Ventilator 09/26/20 20:00 105 18 134/65 (88) 100 09/26/20 20:00 125/67 09/26/20 19:30 104 20 125/67 (86) 100 09/26/20 19:19 102 16 40 09/26/20 19:00 112/62 09/26/20 19:00 101 16 112/62 (79) 100 09/26/20 18:30 105 16 107/62 (77) 100 09/26/20 18:00 106/62 09/26/20 18:00 106 17 106/62 (77) 100 09/26/20 17:43 100.0 09/26/20 17:30 108 18 116/62 (80) 100 09/26/20 17:00 121/63 09/26/20 17:00 109 18 121/63 (82) 100 09/26/20 16:30 100.8 105 16 115/59 (77) 100 09/26/20 16:00 40.0 09/26/20 16:00 104 18 134/67 (89) 100 09/26/20 16:00 134/67 09/26/20 16:00 104 09/26/20 16:00 Mechanical Ventilator 09/26/20 15:30 104 16 125/67 (86) 100 09/26/20 15:10 101 17 40 09/26/20 15:00 104 16 129/70 (89) 100 09/26/20 15:00 129/70 09/26/20 14:30 98 16 133/65 (87) 100 09/26/20 14:15 125/61 09/26/20 14:00 115/59 09/26/20 14:00 95 16 125/61 (82) 100 09/26/20 13:30 96 16 129/64 (85) 100 09/26/20 13:00 114/68 09/26/20 13:00 99 16 110/60 (77) 99 09/26/20 12:30 102 16 118/61 (80) 99 09/26/20 12:00 100.0 104 16 113/61 (78) 99 09/26/20 12:00 Mechanical Ventilator 09/26/20 12:00 40.0 09/26/20 12:00 118/61 09/26/20 12:00 104 09/26/20 11:30 108 16 102/61 (75) 99 09/26/20 11:10 105 17 40 09/26/20 11:00 107/61 09/26/20 11:00 101.0 09/26/20 11:00 111 18 107/61 (76) 100 09/26/20 10:00 122/62 09/26/20 10:00 112 19 129/63 (85) 100 09/26/20 09:30 112 19 131/60 (83) 100 09/26/20 09:00 123/68 09/26/20 09:00 113 18 136/68 (90) 100 09/26/20 08:30 111 18 128/63 (84) 100 09/26/20 08:00 100.4 113 21 150/64 (92) 100 12/14/20 08:00 40.0 09/26/20 08:00 Mechanical Ventilator 09/26/20 08:00 131/64 09/26/20 08:00 113 Height (Feet): 5 Height (Inches): 10.00 Weight (Pounds): 180 Gen: NAD HEENT: NCAT Pulm: BL chest rise Abd: Non-distended Ext: No c/c/e Skin: No visible rashes Neuro: Awake Lines: R fem CVC Microbiology Date/Time Source Procedure Growth Status 09/25/20 10:15 Rectum Received 09/25/20 10:15 Nasal Nares MRSA Culture - Final NO METHICILLIN RESISTANT STAPH AUREUS... Complete 09/25/20 08:15 Blood Blood Culture - Preliminary NO GROWTH AFTER 24 HOURS Resulted 09/25/20 08:15 Blood Blood Culture - Preliminary NO GROWTH AFTER 24 HOURS Resulted 09/24/20 19:55 Blood Blood Culture - Preliminary Gram Positive Cocci Resulted 09/24/20 19:45 Urine,Clean Catch Urine Culture - Final Proteus Mirabilis Esbl Complete 09/24/20 19:45 Nasopharynx SARS-CoV-2 RdRp Gene Assay - Final Complete 09/24/20 19:45 Blood Blood Culture - Preliminary Staphylococcus Sp Coag Neg Resulted Laboratory Tests Test 09/27/20 04:12 09/27/20 06:06 White Blood Count 10.9 K/UL (4.8-10.8) H Red Blood Count 3.59 M/UL (4.70-6.10) L Hemoglobin 9.8 G/DL (14.2-18.0) L Hematocrit 29.2 % (42.0-52.0) L Mean Corpuscular Volume 81 FL (80-99) Mean Corpuscular Hemoglobin 27.2 PG (27.0-31.0) Mean Corpuscular Hemoglobin Concent 33.5 G/DL (32.0-36.0) Red Cell Distribution Width 15.5 % (11.6-14.8) H Platelet Count 142 K/UL (150-450) L Mean Platelet Volume 10.7 FL (6.5-10.1) H Neutrophils (%) (Auto) 75.8 % (45.0-75.0) H Lymphocytes (%) (Auto) 20.2 % (20.0-45.0) Monocytes (%) (Auto) 2.5 % (1.0-10.0) Eosinophils (%) (Auto) 1.0 % (0.0-3.0) Basophils (%) (Auto) 0.4 % (0.0-2.0) Sodium Level 152 MMOL/L (136-145) H Potassium Level 3.3 MMOL/L (3.5-5.1) L Chloride Level 119 MMOL/L (98-107) H Carbon Dioxide Level 20 MMOL/L (21-32) L Anion Gap 13 mmol/L (5-15) Blood Urea Nitrogen 23 mg/dL (7-18) H Creatinine 1.6 MG/DL (0.55-1.30) H Estimat Glomerular Filtration Rate 50.8 mL/min (>60) Glucose Level 294 MG/DL (74-106) #H Uric Acid 7.0 MG/DL (2.6-7.2) Calcium Level 8.1 MG/DL (8.5-10.1) L Phosphorus Level 1.8 MG/DL (2.5-4.9) L Magnesium Level 1.8 MG/DL (1.8-2.4) Total Bilirubin 0.5 MG/DL (0.2-1.0) Aspartate Amino Transf (AST/SGOT) 26 U/L (15-37) Alanine Aminotransferase (ALT/SGPT) 19 U/L (12-78) Alkaline Phosphatase 103 U/L (46-116) Pro-B-Type Natriuretic Peptide Pending Total Protein 7.1 G/DL (6.4-8.2) Albumin 1.7 G/DL (3.4-5.0) L Globulin 5.4 g/dL Albumin/Globulin Ratio 0.3 (1.0-2.7) L Lipase 599 U/L (73-393) H POC Whole Blood Glucose 261 MG/DL (74-106) H Current Medications Medications (Trade) Dose Ordered Sig/Debi Route PRN Reason Start Time Stop Time Status Last Admin Dose Admin Acetaminophen (Tylenol) 650 mg Q4H PRN ORAL fever 09/25/20 00:15 10/25/20 00:14 09/26/20 21:19 Albuterol/ Ipratropium (Albuterol/ Ipratropium) 3 ml Q4HRT PRN HHN Shortness of Breath 09/25/20 00:15 09/30/20 00:14 Chlorhexidine Gluconate (Jazmin-Hex 2%) 1 applic DAILY@2000 TOPIC 09/26/20 20:00 12/25/20 19:59 09/26/20 20:27 Dextrose (Dextrose 50%) 25 ml Q30M PRN IV Hypoglycemia 09/25/20 15:30 12/24/20 15:29 Dextrose (Dextrose 50%) 50 ml Q30M PRN IV Hypoglycemia 09/25/20 15:30 12/24/20 15:29 Ertapenem 1 gm/ Sodium Chloride 55 ml @ 110 mls/hr Q24H IV 09/26/20 12:00 09/30/20 11:59 UNV 09/26/20 11:39 Heparin Sodium (Porcine) (Heparin 5000 units/ml) 5,000 units EVERY 12 HOURS SUBQ 09/25/20 09:00 11/09/20 08:59 09/26/20 21:17 Insulin Aspart (NovoLOG) BEFORE MEALS AND HS SUBQ 09/25/20 16:30 12/24/20 16:29 09/27/20 06:17 Linezolid 300 ml @ 300 mls/hr Q12HR IVPB 09/25/20 21:00 10/02/20 20:59 09/26/20 21:16 Lorazepam (Ativan 2mg/ml 1ml) 2 mg Q2H PRN IV For Anxiety 09/25/20 00:15 10/02/20 00:14 Morphine Sulfate (Morphine Sulfate) 4 mg Q4H PRN IVP Severe Pain (Pain Scale 7-10) 09/25/20 00:15 10/02/20 00:14 Norepinephrine Bitartrate 4 mg/ Dextrose 250 ml @ 0 mls/hr Q24H IV 09/25/20 13:00 09/28/20 12:59 09/26/20 23:18 Ondansetron HCl (Zofran) 4 mg Q6H PRN IVP Nausea & Vomiting 09/25/20 00:15 10/25/20 00:14 Pantoprazole (Protonix) 40 mg Q12HR IVP 09/25/20 21:00 10/25/20 08:59 09/26/20 21:15 Polyethylene Glycol (Miralax) 17 gm DAILYPRN PRN ORAL Constipation 09/25/20 00:15 10/25/20 00:14 Marixa Oliva M.D. Sep 27, 2020 08:02
[2020-09-27] MEDS: Pantoprazole Inj IVP SCH ×2 (09:11→21:01)
[2020-09-27] MEDS: Heparin 5000 units/ml inj SUBQ SCH ×2 (09:14→21:03)
--- NOTE | 2020-09-27 10:47 | Nephrology Progress Note ---
Assessment/Plan Problem List: (1) KELLY (acute kidney injury) (2) Dehydration (3) Hypernatremia (4) Severe sepsis (5) History of CVA (cerebrovascular accident) (6) Parkinson disease (7) Acute respiratory failure (8) Elevated lipase Assessment KELLY, Hypernatremia, dehydration, free water deficit Sepsis Acute respiratory failure requiring intubation and mechanical ventilation Diabetes mellitus [id number] GT feeding History of CVA History of hypertension Parkinson's disease Elevated lipase Plan September 27: Labs reviewed. Serum sodium lowering. Serum creatinine lowering. Blood sugar somewhat better controlled. Patient continues to be on free water through tube feeding. Continue to monitor renal parameters and electrolytes. Abnormal electrolytes addressed. September 26: IV fluids stopped. Patient receiving free water reviewed NG tube. Patient full code. Intubated on ventilator. Discussed with JOHNNY Christensen. Continue to monitor renal parameters. Serum creatinine lower but abnormal electrolyte persists and was addressed. Previously: IV fluid half-normal saline 125 cc an hour Albumin fluid challenge Monitor electrolytes Monitor renal parameters Hold blood pressure medication since blood pressure low Per orders, per consultants Subjective ROS Limited/Unobtainable: Yes Objective Objective Last 24 Hour Vital Signs Date Time Temp Pulse Resp B/P (MAP) Pulse Ox O2 Delivery O2 Flow Rate FiO2 09/27/20 10:00 114 16 110/55 (73) 100 09/27/20 09:00 114 16 115/65 (82) 100 09/27/20 08:00 40.0 09/27/20 08:00 Mechanical Ventilator 09/27/20 08:00 116 18 114/58 (76) 100 09/27/20 08:00 117 09/27/20 07:47 112 18 40 09/27/20 07:09 112 20 120/55 (76) 100 09/27/20 06:00 115 22 102/62 (75) 100 09/27/20 05:00 110 20 141/62 (88) 100 09/27/20 04:10 Mechanical Ventilator 09/27/20 04:10 40.0 09/27/20 04:10 111 09/27/20 04:00 98.3 105 20 134/67 (89) 100 09/27/20 03:30 110 20 134/63 (86) 100 09/27/20 03:00 111 25 125/68 (87) 100 09/27/20 03:00 125/68 09/27/20 02:31 110 19 40 09/27/20 02:30 112 20 120/62 (81) 100 09/27/20 02:00 108 18 117/59 (78) 100 09/27/20 02:00 117/59 09/27/20 01:30 110 16 126/60 (82) 100 09/27/20 01:00 107 20 122/64 (83) 100 09/27/20 01:00 122/64 09/27/20 00:30 105 20 122/60 (80) 100 09/27/20 00:00 Mechanical Ventilator 09/27/20 00:00 100.0 108 20 131/61 (84) 100 09/27/20 00:00 40.0 09/27/20 00:00 131/61 09/27/20 00:00 108 09/26/20 23:30 107 18 114/62 (79) 100 09/26/20 23:18 105/65 09/26/20 23:15 106 17 40 09/26/20 23:00 104 18 105/57 (73) 100 09/26/20 22:30 106 18 111/62 (78) 100 09/26/20 22:00 105 22 90/55 (67) 100 09/26/20 22:00 90/55 09/26/20 22:00 100.5 09/26/20 21:30 110 20 137/65 (89) 100 09/26/20 21:16 137/65 09/26/20 21:00 108 18 134/67 (89) 100 09/26/20 20:30 100.8 110 18 129/67 (87) 100 09/26/20 20:18 105 09/26/20 20:00 40.0 09/26/20 20:00 Mechanical Ventilator 09/26/20 20:00 105 18 134/65 (88) 100 09/26/20 20:00 125/67 09/26/20 19:30 104 20 125/67 (86) 100 09/26/20 19:19 102 16 40 09/26/20 19:00 112/62 09/26/20 19:00 101 16 112/62 (79) 100 09/26/20 18:30 105 16 107/62 (77) 100 09/26/20 18:00 106/62 09/26/20 18:00 106 17 106/62 (77) 100 09/26/20 17:43 100.0 09/26/20 17:30 108 18 116/62 (80) 100 09/26/20 17:00 121/63 09/26/20 17:00 109 18 121/63 (82) 100 09/26/20 16:30 100.8 105 16 115/59 (77) 100 09/26/20 16:00 40.0 09/26/20 16:00 104 18 134/67 (89) 100 09/26/20 16:00 134/67 09/26/20 16:00 104 09/26/20 16:00 Mechanical Ventilator 09/26/20 15:30 104 16 125/67 (86) 100 09/26/20 15:10 101 17 40 09/26/20 15:00 104 16 129/70 (89) 100 09/26/20 15:00 129/70 09/26/20 14:30 98 16 133/65 (87) 100 09/26/20 14:15 125/61 09/26/20 14:00 115/59 09/26/20 14:00 95 16 125/61 (82) 100 09/26/20 13:30 96 16 129/64 (85) 100 09/26/20 13:00 114/68 09/26/20 13:00 99 16 110/60 (77) 99 09/26/20 12:30 102 16 118/61 (80) 99 09/26/20 12:00 100.0 104 16 113/61 (78) 99 09/26/20 12:00 Mechanical Ventilator 09/26/20 12:00 40.0 09/26/20 12:00 118/61 09/26/20 12:00 104 09/26/20 11:30 108 16 102/61 (75) 99 09/26/20 11:10 105 17 40 09/26/20 11:00 107/61 09/26/20 11:00 101.0 09/26/20 11:00 111 18 107/61 (76) 100 Intake and Output 09/26/20 09/27/20 19:00 07:00 Intake Total 2163.75 ml 945.0 ml Output Total 2075 ml 1145 ml Balance 88.75 ml -200.0 ml IV Total 1463.75 ml 120.0 ml Tube Feeding 600 ml 825 ml Other 100 ml Output Urine Total 2075 ml 1145 ml # Bowel Movements 1 Current Medications Medications (Trade) Dose Ordered Sig/Debi Route PRN Reason Start Time Stop Time Status Last Admin Dose Admin Acetaminophen (Tylenol) 650 mg Q4H PRN ORAL fever 09/25/20 00:15 10/25/20 00:14 09/26/20 21:19 Albuterol/ Ipratropium (Albuterol/ Ipratropium) 3 ml Q4HRT PRN HHN Shortness of Breath 09/25/20 00:15 09/30/20 00:14 Chlorhexidine Gluconate (Jazmin-Hex 2%) 1 applic DAILY@1999 TOPIC 09/26/20 20:00 12/25/20 19:59 09/26/20 20:27 Dextrose (Dextrose 50%) 25 ml Q30M PRN IV Hypoglycemia 09/25/20 15:30 12/24/20 15:29 Dextrose (Dextrose 50%) 50 ml Q30M PRN IV Hypoglycemia 09/25/20 15:30 12/24/20 15:29 Ertapenem 1 gm/ Sodium Chloride 55 ml @ 110 mls/hr Q24H IV 09/26/20 12:00 09/30/20 11:59 UNV 09/26/20 11:39 Heparin Sodium (Porcine) (Heparin 5000 units/ml) 5,000 units EVERY 12 HOURS SUBQ 09/25/20 09:00 11/09/20 08:59 09/27/20 09:14 Insulin Aspart (NovoLOG) BEFORE MEALS AND HS SUBQ 09/25/20 16:30 12/24/20 16:29 09/27/20 06:17 Linezolid 300 ml @ 300 mls/hr Q12HR IVPB 09/25/20 21:00 10/02/20 20:59 09/27/20 09:12 Lorazepam (Ativan 2mg/ml 1ml) 2 mg Q2H PRN IV For Anxiety 09/25/20 00:15 10/02/20 00:14 Morphine Sulfate (Morphine Sulfate) 4 mg Q4H PRN IVP Severe Pain (Pain Scale 7-10) 09/25/20 00:15 10/02/20 00:14 Norepinephrine Bitartrate 4 mg/ Dextrose 250 ml @ 0 mls/hr Q24H IV 09/25/20 13:00 09/28/20 12:59 09/26/20 23:18 Ondansetron HCl (Zofran) 4 mg Q6H PRN IVP Nausea & Vomiting 09/25/20 00:15 10/25/20 00:14 Pantoprazole (Protonix) 40 mg Q12HR IVP 09/25/20 21:00 10/25/20 08:59 09/27/20 09:11 Polyethylene Glycol (Miralax) 17 gm DAILYPRN PRN ORAL Constipation 09/25/20 00:15 10/25/20 00:14 Potassium Phosphate 250 ml @ 62.5 mls/hr Q4H IVPB 09/27/20 12:00 09/27/20 19:59 Laboratory Tests 09/27/20 04:12: White Blood Count 10.9H, Red Blood Count 3.59L, Hemoglobin 9.8L, Hematocrit 29.2L, Mean Corpuscular Volume 81, Mean Corpuscular Hemoglobin 27.2, Mean Corpuscular Hemoglobin Concent 33.5, Red Cell Distribution Width 15.5H, Platelet Count 142L, Mean Platelet Volume 10.7H, Neutrophils (%) (Auto) 75.8H, Lymphocytes (%) (Auto) 20.2, Monocytes (%) (Auto) 2.5, Eosinophils (%) (Auto) 1.0, Basophils (%) (Auto) 0.4, Sodium Level 152H, Potassium Level 3.3L, Chloride Level 119H, Carbon Dioxide Level 20L, Anion Gap 13, Blood Urea Nitrogen 23H, Creatinine 1.6H, Estimat Glomerular Filtration Rate 50.8, Glucose Level 294#H, Uric Acid 7.0, Calcium Level 8.1L, Phosphorus Level 1.8L, Magnesium Level 1.8, Total Bilirubin 0.5, Aspartate Amino Transf (AST/SGOT) 26, Alanine Am inotransferase (ALT/SGPT) 19, Alkaline Phosphatase 103, Pro-B-Type Natriuretic Peptide [Pending], Total Protein 7.1, Albumin 1.7L, Globulin 5.4, Albumin/Globulin Ratio 0.3L, Lipase 599H 09/27/20 06:06: POC Whole Blood Glucose 261H Height (Feet): 5 Height (Inches): 10.00 Weight (Pounds): 180 General Appearance: no apparent distress EENT: other - Intubated on mechanical ventilation Cardiovascular: tachycardia Respiratory/Chest: decreased breath sounds Abdomen: distended Eddie Nelson MD Sep 27, 2020 10:47
--- NOTE | 2020-09-27 10:49 | Pulmonolgy Critical Care Note ---
Critical Care - Asmt/Plan Problems: (1) Acute respiratory failure (2) Severe sepsis (3) Diabetes mellitus (4) Severe protein-calorie malnutrition (5) History of hypertension (6) History of CVA (cerebrovascular accident) (7) Parkinson disease (8) Feeding by G-tube Respiratory: monitor respiratory rate, adjust FIO2, CXR Cardiac: continue pressors, continue to monitor HR/BP Renal: F/U I&O, check electrolytes Infectious Disease: check cultures Gastrointestinal: continue feedings/current rate Endocrine: monitor blood sugar, check TSH Hematologic: monitor H/H Neurologic: PRN Morphine Affect: PRN ativan Prophylaxis: Protonix Notes Reviewed: renal Discussed with: nurses, consultants, skilled nursing case managerrespiratory services manager - Objective Last 24 Hour Vital Signs Date Time Temp Pulse Resp B/P (MAP) Pulse Ox O2 Delivery O2 Flow Rate FiO2 09/27/20 10:00 114 16 110/55 (73) 100 09/27/20 09:00 114 16 115/65 (82) 100 09/27/20 08:00 40.0 09/27/20 08:00 Mechanical Ventilator 09/27/20 08:00 116 18 114/58 (76) 100 09/27/20 08:00 117 09/27/20 07:47 112 18 40 09/27/20 07:09 112 20 120/55 (76) 100 09/27/20 06:00 115 22 102/62 (75) 100 09/27/20 05:00 110 20 141/62 (88) 100 09/27/20 04:10 Mechanical Ventilator 09/27/20 04:10 40.0 09/27/20 04:10 111 09/27/20 04:00 98.3 105 20 134/67 (89) 100 09/27/20 03:30 110 20 134/63 (86) 100 09/27/20 03:00 111 25 125/68 (87) 100 09/27/20 03:00 125/68 09/27/20 02:31 110 19 40 09/27/20 02:30 112 20 120/62 (81) 100 09/27/20 02:00 108 18 117/59 (78) 100 09/27/20 02:00 117/59 09/27/20 01:30 110 16 126/60 (82) 100 09/27/20 01:00 107 20 122/64 (83) 100 09/27/20 01:00 122/64 09/27/20 00:30 105 20 122/60 (80) 100 09/27/20 00:00 Mechanical Ventilator 09/27/20 00:00 100.0 108 20 131/61 (84) 100 09/27/20 00:00 40.0 09/27/20 00:00 131/61 09/27/20 00:00 108 09/26/20 23:30 107 18 114/62 (79) 100 09/26/20 23:18 105/65 09/26/20 23:15 106 17 40 09/26/20 23:00 104 18 105/57 (73) 100 09/26/20 22:30 106 18 111/62 (78) 100 09/26/20 22:00 105 22 90/55 (67) 100 09/26/20 22:00 90/55 09/26/20 22:00 100.5 09/26/20 21:30 110 20 137/65 (89) 100 09/26/20 21:16 137/65 09/26/20 21:00 108 18 134/67 (89) 100 09/26/20 20:30 100.8 110 18 129/67 (87) 100 09/26/20 20:18 105 09/26/20 20:00 40.0 09/26/20 20:00 Mechanical Ventilator 09/26/20 20:00 105 18 134/65 (88) 100 09/26/20 20:00 125/67 09/26/20 19:30 104 20 125/67 (86) 100 09/26/20 19:19 102 16 40 09/26/20 19:00 112/62 09/26/20 19:00 101 16 112/62 (79) 100 09/26/20 18:30 105 16 107/62 (77) 100 09/26/20 18:00 106/62 09/26/20 18:00 106 17 106/62 (77) 100 09/26/20 17:43 100.0 09/26/20 17:30 108 18 116/62 (80) 100 09/26/20 17:00 121/63 09/26/20 17:00 109 18 121/63 (82) 100 09/26/20 16:30 100.8 105 16 115/59 (77) 100 09/26/20 16:00 40.0 09/26/20 16:00 104 18 134/67 (89) 100 09/26/20 16:00 134/67 09/26/20 16:00 104 09/26/20 16:00 Mechanical Ventilator 09/26/20 15:30 104 16 125/67 (86) 100 09/26/20 15:10 101 17 40 09/26/20 15:00 104 16 129/70 (89) 100 09/26/20 15:00 129/70 09/26/20 14:30 98 16 133/65 (87) 100 09/26/20 14:15 125/61 09/26/20 14:00 115/59 09/26/20 14:00 95 16 125/61 (82) 100 09/26/20 13:30 96 16 129/64 (85) 100 09/26/20 13:00 114/68 09/26/20 13:00 99 16 110/60 (77) 99 09/26/20 12:30 102 16 118/61 (80) 99 09/26/20 12:00 100.0 104 16 113/61 (78) 99 09/26/20 12:00 Mechanical Ventilator 09/26/20 12:00 40.0 09/26/20 12:00 118/61 09/26/20 12:00 104 09/26/20 11:30 108 16 102/61 (75) 99 09/26/20 11:10 105 17 40 09/26/20 11:00 107/61 09/26/20 11:00 101.0 09/26/20 11:00 111 18 107/61 (76) 100 Status: awake Condition: critical HEENT: atraumatic, normocephalic Lungs: chest wall tender Heart: HR/BP unstable Abdomen: soft Extremities: no C/C/E Micro: Microbiology Date/Time Source Procedure Growth Status 09/25/20 10:15 Rectum VRE Culture - Final NO VANCOMYCIN RESISTANT ENTEROCOCCUS ... Complete 09/25/20 10:15 Rectum - Final NO CARBAPENEM-RESISTANT ENTEROBACTERI... Complete 09/25/20 10:15 Nasal Nares MRSA Culture - Final NO METHICILLIN RESISTANT STAPH AUREUS... Complete 09/25/20 08:15 Blood Blood Culture - Preliminary NO GROWTH AFTER 24 HOURS Resulted 09/25/20 08:15 Blood Blood Culture - Preliminary NO GROWTH AFTER 24 HOURS Resulted 09/24/20 19:55 Blood Blood Culture - Preliminary Gram Positive Cocci Resulted 09/24/20 19:45 Urine,Clean Catch Urine Culture - Final Proteus Mirabilis Esbl Complete 09/24/20 19:45 Nasopharynx SARS-CoV-2 RdRp Gene Assay - Final Complete 09/24/20 19:45 Blood Blood Culture - Preliminary Staphylococcus Sp Coag Neg Resulted Accucheck: 261 Critical Care - Subjective ROS Limited/Unobtainable: Yes Condition: critical FI02: 40 Vent Support Breath Rate: 16 Vent Support Mode: AC Vent Tidal Volume: 600 Sputum Amount: Small PEEP: 0.0 PIP: 21 Tube Feeding Amount: 75 I&O: Intake and Output 09/26/20 09/27/20 19:00 07:00 Intake Total 2163.75 ml 945.0 ml Output Total 2075 ml 1145 ml Balance 88.75 ml -200.0 ml IV Total 1463.75 ml 120.0 ml Tube Feeding 600 ml 825 ml Other 100 ml Output Urine Total 2075 ml 1145 ml # Bowel Movements 1 CXR: no change ET-Tube: 7.0 ET Position: 23 Labs: Laboratory Tests Test 09/27/20 04:12 09/27/20 06:06 White Blood Count 10.9 K/UL (4.8-10.8) H Red Blood Count 3.59 M/UL (4.70-6.10) L Hemoglobin 9.8 G/DL (14.2-18.0) L Hematocrit 29.2 % (42.0-52.0) L Mean Corpuscular Volume 81 FL (80-99) Mean Corpuscular Hemoglobin 27.2 PG (27.0-31.0) Mean Corpuscular Hemoglobin Concent 33.5 G/DL (32.0-36.0) Red Cell Distribution Width 15.5 % (11.6-14.8) H Platelet Count 142 K/UL (150-450) L Mean Platelet Volume 10.7 FL (6.5-10.1) H Neutrophils (%) (Auto) 75.8 % (45.0-75.0) H Lymphocytes (%) (Auto) 20.2 % (20.0-45.0) Monocytes (%) (Auto) 2.5 % (1.0-10.0) Eosinophils (%) (Auto) 1.0 % (0.0-3.0) Basophils (%) (Auto) 0.4 % (0.0-2.0) Sodium Level 152 MMOL/L (136-145) H Potassium Level 3.3 MMOL/L (3.5-5.1) L Chloride Level 119 MMOL/L (98-107) H Carbon Dioxide Level 20 MMOL/L (21-32) L Anion Gap 13 mmol/L (5-15) Blood Urea Nitrogen 23 mg/dL (7-18) H Creatinine 1.6 MG/DL (0.55-1.30) H Estimat Glomerular Filtration Rate 50.8 mL/min (>60) Glucose Level 294 MG/DL (74-106) #H Uric Acid 7.0 MG/DL (2.6-7.2) Calcium Level 8.1 MG/DL (8.5-10.1) L Phosphorus Level 1.8 MG/DL (2.5-4.9) L Magnesium Level 1.8 MG/DL (1.8-2.4) Total Bilirubin 0.5 MG/DL (0.2-1.0) Aspartate Amino Transf (AST/SGOT) 26 U/L (15-37) Alanine Aminotransferase (ALT/SGPT) 19 U/L (12-78) Alkaline Phosphatase 103 U/L (46-116) Pro-B-Type Natriuretic Peptide Pending Total Protein 7.1 G/DL (6.4-8.2) Albumin 1.7 G/DL (3.4-5.0) L Globulin 5.4 g/dL Albumin/Globulin Ratio 0.3 (1.0-2.7) L Lipase 599 U/L (73-393) H POC Whole Blood Glucose 261 MG/DL (74-106) H Latanya Mckeon MD Sep 27, 2020 10:49
[2020-09-27] MEDS ORDERED: DOXAZOSIN MESYLA1 MG GT (11:42)
[2020-09-27] MEDS ORDERED: ACETAMINOPHEN325 M1 GT (11:42)
[2020-09-27] MEDS ORDERED: HEPARIN SO5000 UNIT2 SUBQ (11:42)
[2020-09-27] MEDS ORDERED: ACETAMINOPHEN120 MG RECTAL (11:42)
[2020-09-27] MEDS ORDERED: LEVEMIR FL100 UNIT/2 SQ (11:42)
[2020-09-27] MEDS ORDERED: METOPROLOL TART25 MG GT (11:46)
[2020-09-27] MEDS ORDERED: OMEGA 3 1,0001 EACH GT (11:46)
[2020-09-27] MEDS ORDERED: MIDODRINE HCL2.5 MG GT (11:46)
[2020-09-27] MEDS ORDERED: ASCORBIC ACID500 MG GT (11:46)
[2020-09-27] MEDS ORDERED: FAMOTIDINE20 MG GT (11:46)
[2020-09-27] MEDS: Ertapenem 1 GM in NS 55 ML IV SCH (12:00)
[2020-09-27] MEDS: Potassium Phosphate 15mm/250ml 250 ML IVPB SCH ×2 (12:00→16:01)
--- NOTE | 2020-09-27 14:04 | Surgery Progress Note ---
Surgery Progress Note Subjective Additional Comments labs improving no n/v on support Objective Last 24 Hour Vital Signs Date Time Temp Pulse Resp B/P (MAP) Pulse Ox O2 Delivery O2 Flow Rate FiO2 09/27/20 12:00 112 17 113/53 (73) 100 09/27/20 12:00 114 09/27/20 12:00 40.0 09/27/20 12:00 Mechanical Ventilator 09/27/20 11:13 113 17 40 09/27/20 11:00 98.8 114 16 115/61 (79) 100 09/27/20 10:00 114 16 110/55 (73) 100 09/27/20 09:00 114 16 115/65 (82) 100 09/27/20 08:00 40.0 09/27/20 08:00 Mechanical Ventilator 09/27/20 08:00 116 18 114/58 (76) 100 09/27/20 08:00 117 09/27/20 07:47 112 18 40 09/27/20 07:09 112 20 120/55 (76) 100 09/27/20 06:00 115 22 102/62 (75) 100 09/27/20 05:00 110 20 141/62 (88) 100 09/27/20 04:10 Mechanical Ventilator 09/27/20 04:10 40.0 09/27/20 04:10 111 09/27/20 04:00 98.3 105 20 134/67 (89) 100 09/27/20 03:30 110 20 134/63 (86) 100 09/27/20 03:00 111 25 125/68 (87) 100 09/27/20 03:00 125/68 09/27/20 02:31 110 19 40 09/27/20 02:30 112 20 120/62 (81) 100 09/27/20 02:00 108 18 117/59 (78) 100 09/27/20 02:00 117/59 09/27/20 01:30 110 16 126/60 (82) 100 09/27/20 01:00 107 20 122/64 (83) 100 09/27/20 01:00 122/64 09/27/20 00:30 105 20 122/60 (80) 100 09/27/20 00:00 Mechanical Ventilator 09/27/20 00:00 100.0 108 20 131/61 (84) 100 09/27/20 00:00 40.0 09/27/20 00:00 131/61 09/27/20 00:00 108 09/26/20 23:30 107 18 114/62 (79) 100 09/26/20 23:18 105/65 09/26/20 23:15 106 17 40 09/26/20 23:00 104 18 105/57 (73) 100 09/26/20 22:30 106 18 111/62 (78) 100 09/26/20 22:00 105 22 90/55 (67) 100 09/26/20 22:00 90/55 09/26/20 22:00 100.5 09/26/20 21:30 110 20 137/65 (89) 100 09/26/20 21:16 137/65 09/26/20 21:00 108 18 134/67 (89) 100 09/26/20 20:30 100.8 110 18 129/67 (87) 100 09/26/20 20:18 105 09/26/20 20:00 40.0 09/26/20 20:00 Mechanical Ventilator 09/26/20 20:00 105 18 134/65 (88) 100 09/26/20 20:00 125/67 09/26/20 19:30 104 20 125/67 (86) 100 09/26/20 19:19 102 16 40 09/26/20 19:00 112/62 09/26/20 19:00 101 16 112/62 (79) 100 09/26/20 18:30 105 16 107/62 (77) 100 09/26/20 18:00 106/62 09/26/20 18:00 106 17 106/62 (77) 100 09/26/20 17:43 100.0 09/26/20 17:30 108 18 116/62 (80) 100 09/26/20 17:00 121/63 09/26/20 17:00 109 18 121/63 (82) 100 09/26/20 16:30 100.8 105 16 115/59 (77) 100 09/26/20 16:00 40.0 09/26/20 16:00 104 18 134/67 (89) 100 09/26/20 16:00 134/67 09/26/20 16:00 104 09/26/20 16:00 Mechanical Ventilator 09/26/20 15:30 104 16 125/67 (86) 100 09/26/20 15:10 101 17 40 09/26/20 15:00 104 16 129/70 (89) 100 09/26/20 15:00 129/70 09/26/20 14:30 98 16 133/65 (87) 100 09/26/20 14:15 125/61 I&O Intake and Output 09/26/20 09/27/20 19:00 07:00 Intake Total 2163.75 ml 945.0 ml Output Total 2075 ml 1145 ml Balance 88.75 ml -200.0 ml IV Total 1463.75 ml 120.0 ml Tube Feeding 600 ml 825 ml Other 100 ml Output Urine Total 2075 ml 1145 ml # Bowel Movements 1 Dressing: saturated Cardiovascular: RSR Respiratory: decreased breath sounds Abdomen: non-tender, present bowel sounds Extremities: no tenderness, no cyanosis Laboratory Tests Test 09/27/20 04:12 09/27/20 06:06 White Blood Count 10.9 K/UL (4.8-10.8) H Red Blood Count 3.59 M/UL (4.70-6.10) L Hemoglobin 9.8 G/DL (14.2-18.0) L Hematocrit 29.2 % (42.0-52.0) L Mean Corpuscular Volume 81 FL (80-99) Mean Corpuscular Hemoglobin 27.2 PG (27.0-31.0) Mean Corpuscular Hemoglobin Concent 33.5 G/DL (32.0-36.0) Red Cell Distribution Width 15.5 % (11.6-14.8) H Platelet Count 142 K/UL (150-450) L Mean Platelet Volume 10.7 FL (6.5-10.1) H Neutrophils (%) (Auto) 75.8 % (45.0-75.0) H Lymphocytes (%) (Auto) 20.2 % (20.0-45.0) Monocytes (%) (Auto) 2.5 % (1.0-10.0) Eosinophils (%) (Auto) 1.0 % (0.0-3.0) Basophils (%) (Auto) 0.4 % (0.0-2.0) Sodium Level 152 MMOL/L (136-145) H Potassium Level 3.3 MMOL/L (3.5-5.1) L Chloride Level 119 MMOL/L (98-107) H Carbon Dioxide Level 20 MMOL/L (21-32) L Anion Gap 13 mmol/L (5-15) Blood Urea Nitrogen 23 mg/dL (7-18) H Creatinine 1.6 MG/DL (0.55-1.30) H Estimat Glomerular Filtration Rate 50.8 mL/min (>60) Glucose Level 294 MG/DL (74-106) #H Uric Acid 7.0 MG/DL (2.6-7.2) Calcium Level 8.1 MG/DL (8.5-10.1) L Phosphorus Level 1.8 MG/DL (2.5-4.9) L Magnesium Level 1.8 MG/DL (1.8-2.4) Total Bilirubin 0.5 MG/DL (0.2-1.0) Aspartate Amino Transf (AST/SGOT) 26 U/L (15-37) Alanine Aminotransferase (ALT/SGPT) 19 U/L (12-78) Alkaline Phosphatase 103 U/L (46-116) Pro-B-Type Natriuretic Peptide Pending Total Protein 7.1 G/DL (6.4-8.2) Albumin 1.7 G/DL (3.4-5.0) L Globulin 5.4 g/dL Albumin/Globulin Ratio 0.3 (1.0-2.7) L Lipase 599 U/L (73-393) H POC Whole Blood Glucose 261 MG/DL (74-106) H Plan Problems: (1) Hypoxia (2) Severe sepsis Assessment & Plan: leukocytosis lactic acidosis anemia renal insufficiency on support in ICU dressings changed and care plan initiated cont abx trend labs if fluids am imaging ordered Pt presented on admission with purple and indurated area at Sacrococcygeal at previously compromised site(L)7cm x (W)3cm.Surrounding Hyperpigmentation at Sacrum. Non-Blanching erythema without fluctuance R heel. Non-Blanching erythema with delineated margins L heel (L)4.5cm x (W)5.5cm. L Heel is boggy . Tx.Plan: Apply Moisture Barrier Paste to Sacrum. Cover with Optifoam drsgs. Change every 3 days and prn. Apply Cavilon Skin Barrier to R and L trochanter. Cover each site with Optifoam drsgs. Change every 7 days and prn. Apply Cavilon Skin Barrier to each heel and malleoli. Cover each site with Optifoam drsgs. Change every 7 days and prn. Reposition at least every 2hours or as tolerated. Off-load heels with pillow. improving cont current care tube site okay DAILY ESTIMATED NEEDS: Needs based on Critical care, DM, Wound/ 53kg 22-30 kcals/kg 6343-8506 total kcals 1.25-2 g protein/kg 66-106 g total protein 25-30 mL/kg [address] total fluid mLs NUTRITION DIAGNOSIS: * Swallowing difficulty R/T dysphagia as evidenced by Pt is GT dep, currently orally intubated, on pressor support, NPO. CURRENT TF:NPO ENTERAL NUTRITION RECOMMENDATIONS: Glucerna 1.2 @ 55ml/hr x 24 hrs to provide 1320ml, 1584kcal, 79g prot, 1063ml free water * As medically appropriate and with hemodynamic stability -> initiate Glucerna 1.2 @ 25ml/hr x 6hrs, advance 10ml q 4-6 hrs as tolerated to goal rate * HOB over 30 degrees * H2O flush of 100ml q 6hrs --------- Without hemodynamic stability, rec trophic feeding of Glucerna 1.2 @ 10- 15ml/hr ADDITIONAL RECOMMENDATIONS: * Per SNF: HT=5'7" WT= 138lbs (as of Sep 13, 2020) * Monitor hemodyanmic stability: NE @ 8mcg * Wound healing: TF rec @ goal provides 100% RDI add Vit C 500mg QD + Terrance BID via TF * Monitor lytes, replete as needed (low K) * Monitor BGs, consider long acting insulin w/ TF Monitor closely for hypoglycemia while NPO (3) Dehydration (4) Hypernatremia (5) Clostridium difficile colitis (6) Staphylococcus aureus bacteremia (7) Hip fracture, left (8) Diabetes mellitus (9) History of hypertension (10) Severe protein-calorie malnutrition (11) Acute encephalopathy (12) Pressure Ulcer Of Sacral Region, Unstageable (13) Feeding by G-tube (14) Abdominal distention (15) Multiple drug resistant organism (MDRO) culture positive (16) Sepsis (17) History of CVA (cerebrovascular accident) (18) Parkinson disease James Breen Sep 27, 2020 14:04
--- NOTE | 2020-09-27 18:10 | Internal Med Progress Note ---
Subjective Date of Service: Sep 27, 2020 Physician Name JordynTello Attending Physician Cirilo Rome MD Current Medications Medications (Trade) Dose Ordered Sig/Debi Route PRN Reason Start Time Stop Time Status Last Admin Dose Admin Acetaminophen (Tylenol) 650 mg Q4H PRN ORAL fever 09/25/20 00:15 10/25/20 00:14 09/26/20 21:19 Albuterol/ Ipratropium (Albuterol/ Ipratropium) 3 ml Q4HRT PRN HHN Shortness of Breath 09/25/20 00:15 09/30/20 00:14 Chlorhexidine Gluconate (Jazmin-Hex 2%) 1 applic DAILY@2000 TOPIC 09/26/20 20:00 12/25/20 19:59 09/26/20 20:27 Dextrose (Dextrose 50%) 25 ml Q30M PRN IV Hypoglycemia 09/25/20 15:30 12/24/20 15:29 Dextrose (Dextrose 50%) 50 ml Q30M PRN IV Hypoglycemia 09/25/20 15:30 12/24/20 15:29 Ertapenem 1 gm/ Sodium Chloride 55 ml @ 110 mls/hr Q24H IV 09/26/20 12:00 09/30/20 11:59 UNV 09/27/20 12:00 Heparin Sodium (Porcine) (Heparin 5000 units/ml) 5,000 units EVERY 12 HOURS SUBQ 09/25/20 09:00 11/09/20 08:59 09/27/20 09:14 Insulin Aspart (NovoLOG) BEFORE MEALS AND HS SUBQ 09/25/20 16:30 12/24/20 16:29 09/27/20 11:30 Linezolid 300 ml @ 300 mls/hr Q12HR IVPB 09/25/20 21:00 10/02/20 20:59 09/27/20 09:12 Lorazepam (Ativan 2mg/ml 1ml) 2 mg Q2H PRN IV For Anxiety 09/25/20 00:15 10/02/20 00:14 Morphine Sulfate (Morphine Sulfate) 4 mg Q4H PRN IVP Severe Pain (Pain Scale 7-10) 09/25/20 00:15 10/02/20 00:14 Norepinephrine Bitartrate 4 mg/ Dextrose 250 ml @ 0 mls/hr Q24H IV 09/25/20:00 09/28/20 12:59 09/26/20 23:18 Ondansetron HCl (Zofran) 4 mg Q6H PRN IVP Nausea & Vomiting 09/25/20 00:15 10/25/20 00:14 Pantoprazole (Protonix) 40 mg Q12HR IVP 09/25/20 21:00 10/25/20 08:59 09/27/20 09:11 Polyethylene Glycol (Miralax) 17 gm DAILYPRN PRN ORAL Constipation 09/25/20 00:15 10/25/20 00:14 Potassium Phosphate 250 ml @ 62.5 mls/hr Q4H IVPB 09/27/20 12:00 09/27/20 19:59 09/27/20 16:01 Allergies: Coded Allergies: No Known Allergies (Unverified , 08/27/19) ROS Limited/Unobtainable: Yes Subjective 80 YO M admitted with respiratory failure. Intubated and sedated. Cover for Int Med-DR Rome. ICU Objective Last Vital Signs Date Time Temp Pulse Resp B/P (MAP) Pulse Ox O2 Delivery O2 Flow Rate FiO2 09/27/20 17:00 108 16 104/53 (70) 100 09/27/20 16:00 40.0 09/27/20 16:00 Mechanical Ventilator 09/27/20 16:00 99.0 09/27/20 15:26 40 Laboratory Tests Test 09/27/20 04:12 09/27/20 06:06 White Blood Count 10.9 K/UL (4.8-10.8) H Red Blood Count 3.59 M/UL (4.70-6.10) L Hemoglobin 9.8 G/DL (14.2-18.0) L Hematocrit 29.2 % (42.0-52.0) L Mean Corpuscular Volume 81 FL (80-99) Mean Corpuscular Hemoglobin 27.2 PG (27.0-31.0) Mean Corpuscular Hemoglobin Concent 33.5 G/DL (32.0-36.0) Red Cell Distribution Width 15.5 % (11.6-14.8) H Platelet Count 142 K/UL (150-450) L Mean Platelet Volume 10.7 FL (6.5-10.1) H Neutrophils (%) (Auto) 75.8 % (45.0-75.0) H Lymphocytes (%) (Auto) 20.2 % (20.0-45.0) Monocytes (%) (Auto) 2.5 % (1.0-10.0) Eosinophils (%) (Auto) 1.0 % (0.0-3.0) Basophils (%) (Auto) 0.4 % (0.0-2.0) Sodium Level 152 MMOL/L (136-145) H Potassium Level 3.3 MMOL/L (3.5-5.1) L Chloride Level 119 MMOL/L (98-107) H Carbon Dioxide Level 20 MMOL/L (21-32) L Anion Gap 13 mmol/L (5-15) Blood Urea Nitrogen 23 mg/dL (7-18) H Creatinine 1.6 MG/DL (0.55-1.30) H Estimat Glomerular Filtration Rate 50.8 mL/min (>60) Glucose Level 294 MG/DL (74-106) #H Uric Acid 7.0 MG/DL (2.6-7.2) Calcium Level 8.1 MG/DL (8.5-10.1) L Phosphorus Level 1.8 MG/DL (2.5-4.9) L Magnesium Level 1.8 MG/DL (1.8-2.4) Total Bilirubin 0.5 MG/DL (0.2-1.0) Aspartate Amino Transf (AST/SGOT) 26 U/L (15-37) Alanine Aminotransferase (ALT/SGPT) 19 U/L (12-78) Alkaline Phosphatase 103 U/L (46-116) Pro-B-Type Natriuretic Peptide Pending Total Protein 7.1 G/DL (6.4-8.2) Albumin 1.7 G/DL (3.4-5.0) L Globulin 5.4 g/dL Albumin/Globulin Ratio 0.3 (1.0-2.7) L Lipase 599 U/L (73-393) H POC Whole Blood Glucose 261 MG/DL (74-106) H Microbiology Date/Time Source Procedure Growth Status 09/25/20 23:00 Nasopharynx Coronavirus COVID-19 PCR (EDDIE) - Final Complete 09/25/20 10:15 Rectum VRE Culture - Final NO VANCOMYCIN RESISTANT ENTEROCOCCUS ... Complete 09/25/20 10:15 Rectum - Final NO CARBAPENEM-RESISTANT ENTEROBACTERI... Complete 09/25/20 10:15 Nasal Nares MRSA Culture - Final NO METHICILLIN RESISTANT STAPH AUREUS... Complete 09/25/20 08:15 Blood Blood Culture - Preliminary NO GROWTH AFTER 24 HOURS Resulted 09/25/20 08:15 Blood Blood Culture - Preliminary NO GROWTH AFTER 24 HOURS Resulted 09/24/20 19:55 Blood Blood Culture - Preliminary Gram Positive Cocci Resulted 09/24/20 19:45 Urine,Clean Catch Urine Culture - Final Proteus Mirabilis Esbl Complete 09/24/20 19:45 Nasopharynx SARS-CoV-2 RdRp Gene Assay - Final Complete 09/24/20 19:45 Blood Blood Culture - Preliminary Staphylococcus Sp Coag Neg Resulted Intake and Output 09/26/20 09/27/20 19:00 07:00 Intake Total 2163.75 ml 945.0 ml Output Total 2075 ml 1145 ml Balance 88.75 ml -200.0 ml IV Total 1463.75 ml 120.0 ml Tube Feeding 600 ml 825 ml Other 100 ml Output Urine Total 2075 ml 1145 ml # Bowel Movements 1 Objective PHYSICAL EXAMINATION: VITAL SIGNS: Temperature 103.5 degrees Fahrenheit, respiratory rate 24, pulse 138, blood pressure 130/83, pulse ox was 100% on mechanical ventilation with 60% FiO2. GENERAL: The patient is well-developed and well-nourished male, who is intubated and sedated. HEENT: Eyes, pupils are equal responsive to light and accommodation. Extraocular movements are intact. NECK: Supple without lymphadenopathy. CHEST: Mech vent; Decreased breath sounds bilateral bases, otherwise without wheezes or rales. CARDIOVASCULAR: Regular rate. S1 and S2 normal without murmurs, rubs, or gallops. ABDOMEN: Soft, nontender, and nondistended. Positive bowel sounds. No evidence of hepatosplenomegaly. Currently, no rebound or guarding noted. EXTREMITIES: Negative for clubbing, cyanosis, or edema. RECTAL/GENITAL: Not performed. NEUROLOGIC: Unable to assess Assessment/Plan Assessment/Plan ASSESSMENT: This is a 80-year-old male. 1. Respiratory failure. 2. Bilateral pneumonia. 3. Hypertension. 4. Diabetes type 2. 5. Hypercholesterolemia. 6. Parkinson disease. 7. COVID-19 negative. 8. Ulcerative proctitis. 9. Benign prostatic hypertrophy. 10. Gastroesophageal reflux disease. 11. Urinary tract infection=proteus mirabilis 12. Sepsis=gram pos cocci TREATMENT: 1. Pneumonia/respiratory failure. Infectious diseases = Drs. Harris/Pj. A Pulmonary/Critical care= Dr. Latanya Mckeon. The patient is currently intubated on the mechanical ventilator in the intensive care unit. ABX= vancomycin, amikacin, and ertapenem. Follow recommendation of Infectious Diseases. Await sputumcultures. 2. Urinary tract infection. ABX= ertapenem, amikacin, vancomycin and linezolid. An Infectious Disease consultation has been obtained with Dr. Harris. 3. Hypertension. The patient is currently hypotensive. 4. Diabetes type 2. NovoLog sliding scale has been instituted. 5. Hypercholesterolemia. Continue simvastatin as above. 6. Parkinson disease. 7. Ulcerative proctitis. 8. Benign prostatic hypertrophy. 9. Gastroesophageal reflux disease. 10. Dysphagia. The patient is status post PEG placement. Tello Cobb MD Sep 27, 2020 18:10
[2020-09-27] MEDS: Dyna-Hex 2% Top Sol 2oz TOPIC SCH (20:11)
[2020-09-28] VITALS (24 sets, daily range): BP systolic 102–141; BP diastolic 50–77
[2020-09-28 05:54] LABS: BASOPHILS % (AUTO) 0.5 % (0.0-2.0); EOSINOPHILS % (AUTO) 1.6 % (0.0-3.0); HEMATOCRIT 29.8 % (42.0-52.0); HEMOGLOBIN 9.7 G/DL (14.2-18.0); LYMPHOCYTES % (AUTO) 21.1 % (20.0-45.0); MEAN CORPUSCULAR VOLUME 82 FL (80-99); MONOCYTES % (AUTO) 3.9 % (1.0-10.0); NEUTROPHILS % (AUTO) 72.9 % (45.0-75.0); PLATELET COUNT 135 K/UL (150-450); RED BLOOD COUNT 3.63 M/UL (4.70-6.10); RED CELL DISTRIBUTION WIDTH 15.6 % (11.6-14.8); WHITE BLOOD COUNT 11.3 K/UL (4.8-10.8)
[2020-09-28] MEDS: NovoLOG Insulin Flexpen SUBQ SCH ×4 (06:09→21:02)
[2020-09-28 06:23] LABS: ALBUMIN 1.6 G/DL (3.4-5.0); ALBUMIN/GLOBULIN RATIO 0.3 (1.0-2.7); BILIRUBIN,TOTAL 0.4 MG/DL (0.2-1.0); CALCIUM 8.2 MG/DL (8.5-10.1); CREATININE 1.6 MG/DL (0.55-1.30); PHOSPHORUS 2.8 MG/DL (2.5-4.9); POTASSIUM 3.5 MMOL/L (3.5-5.1)
[2020-09-28] MEDS: Pantoprazole Inj IVP SCH ×2 (08:38→19:50)
--- NOTE | 2020-09-28 08:38 | Infectious Diseases Prog Note ---
Assessment/Plan 80yo M with: Sepsis, septic shock GPC bacteremia UTI 2/2 ESBL P.mirabilis R/o aspiration pna Febrile to 105, improving Leukocytosis to 15, improving 09/24 BCx 2/2 CONS UA 20-30 WBC, UCx ESBL P.mirabilis COVID rapid test neg, PCR neg CXR: 1. Coarse bibasilar interstitial lung markings, may represent atypical infectious process such as viral pneumonia versus pulmonary edema. 09/25 BCx NTD Resp cx never done 09/26 CXR: No change control coordinator 2 days 09/28 C.dif neg 09/28 Resp cx ordered Cr 2.0, improving Plan: Cont ertapenem 1g IV daily #4 for ESBL UTI Cont linezolid #4/5 for GPC bacteremia Resp cx BCx given ongoing fevers F/u repeat BCx 09/26, 09/25, ensure neg F/u TTE Trend WBC Trend Cr 09/25 SP amikacin and vanco x1 Monitor CBC/CMP Monitor temp curve, hemodynamics Monitor resp status D/w RN Thank you for this consult. [facility] will continue to follow. Subjective Allergies: Coded Allergies: No Known Allergies (Unverified , 08/27/19) AF, Tmax 100.3, improving - though then had fever to 102 this morning, on cooling blanket WBC 11 NAD on vent Objective Last 24 Hour Vital Signs Date Time Temp Pulse Resp B/P (MAP) Pulse Ox O2 Delivery O2 Flow Rate FiO2 09/28/20 07:40 115 16 40 09/28/20 07:00 112 18 113/57 (75) 100 09/28/20 06:00 114 18 112/58 (76) 100 09/28/20 05:00 113 16 122/60 (80) 100 09/28/20 04:00 99.5 112 16 131/58 (82) 100 09/28/20 04:00 Mechanical Ventilator 09/28/20 04:00 40.0 09/28/20 04:00 110 09/28/20 03:00 110 16 123/57 (79) 100 09/28/20 02:46 110 20 40 09/28/20 02:00 112 16 122/55 (77) 100 09/28/20 01:00 111 16 108/52 (70) 100 09/28/20 00:00 112 09/28/20 00:00 Mechanical Ventilator 09/28/20 00:00 99.0 111 16 111/50 (70) 100 09/28/20 00:00 40.0 09/27/20 23:10 110 16 40 09/27/20 23:00 110 16 110/50 (70) 100 09/27/20 22:00 113 18 105/50 (68) 100 09/27/20 21:00 106 16 105/54 (71) 100 09/27/20 20:00 Mechanical Ventilator 09/27/20 20:00 40.0 09/27/20 20:00 100.3 103 16 107/54 (71) 100 09/27/20 20:00 105 09/27/20 19:00 110 16 108/58 (75) 100 09/27/20 18:56 111 16 40 09/27/20 18:00 111 16 101/50 (67) 100 09/27/20 17:00 108 16 104/53 (70) 100 09/27/20 16:00 40.0 09/27/20 16:00 109 09/27/20 16:00 Mechanical Ventilator 09/27/20 16:00 99.0 109 16 107/55 (72) 100 09/27/20 15:26 109 17 40 09/27/20 15:00 111 16 95/53 (67) 100 09/27/20 14:00 115 16 117/54 (75) 100 09/27/20 13:00 110 17 102/56 (71) 100 09/27/20 12:00 112 17 113/53 (73) 100 09/27/20 12:00 114 09/27/20 12:00 40.0 09/27/20 12:00 Mechanical Ventilator 09/27/20 11:13 113 17 40 09/27/20 11:00 98.8 114 16 115/61 (79) 100 09/27/20 10:00 114 16 110/55 (73) 100 09/27/20 09:00 114 16 115/65 (82) 100 Height (Feet): 5 Height (Inches): 10.00 Weight (Pounds): 180 Gen: NAD HEENT: NCAT Pulm: BL chest rise Abd: Non-distended Ext: No c/c/e Skin: No visible rashes Neuro: Awake Lines: R fem CVC Microbiology Date/Time Source Procedure Growth Status 09/28/20 00:30 Stool Clostridium difficile Toxin Assay - Final Complete 09/25/20 23:00 Nasopharynx Coronavirus COVID-19 PCR ([facility]) - Final Complete 09/25/20 10:15 Rectum VRE Culture - Final NO VANCOMYCIN RESISTANT ENTEROCOCCUS ... Complete 09/25/20 10:15 Rectum - Final NO CARBAPENEM-RESISTANT ENTEROBACTERI... Complete 09/25/20 10:15 Nasal Nares MRSA Culture - Final NO METHICILLIN RESISTANT STAPH AUREUS... Complete Laboratory Tests Test 09/27/20 20:39 09/28/20 04:53 POC Whole Blood Glucose 193 MG/DL (74-106) H White Blood Count 11.3 K/UL (4.8-10.8) H Red Blood Count 3.63 M/UL (4.70-6.10) L Hemoglobin 9.7 G/DL (14.2-18.0) L Hematocrit 29.8 % (42.0-52.0) L Mean Corpuscular Volume 82 FL (80-99) Mean Corpuscular Hemoglobin 26.6 PG (27.0-31.0) L Mean Corpuscular Hemoglobin Concent 32.4 G/DL (32.0-36.0) Red Cell Distribution Width 15.6 % (11.6-14.8) H Platelet Count 135 K/UL (150-450) L Mean Platelet Volume 13.0 FL (6.5-10.1) H Neutrophils (%) (Auto) 72.9 % (45.0-75.0) Lymphocytes (%) (Auto) 21.1 % (20.0-45.0) Monocytes (%) (Auto) 3.9 % (1.0-10.0) Eosinophils (%) (Auto) 1.6 % (0.0-3.0) Basophils (%) (Auto) 0.5 % (0.0-2.0) Sodium Level 154 MMOL/L (136-145) H Potassium Level 3.5 MMOL/L (3.5-5.1) Chloride Level 120 MMOL/L (98-107) H Carbon Dioxide Level 21 MMOL/L (21-32) Anion Gap 13 mmol/L (5-15) Blood Urea Nitrogen 20 mg/dL (7-18) H Creatinine 1.6 MG/DL (0.55-1.30) H Estimat Glomerular Filtration Rate 50.8 mL/min (>60) Glucose Level 216 MG/DL (74-106) H Uric Acid 7.1 MG/DL (2.6-7.2) Calcium Level 8.2 MG/DL (8.5-10.1) L Phosphorus Level 2.8 MG/DL (2.5-4.9) Magnesium Level 1.8 MG/DL (1.8-2.4) Total Bilirubin 0.4 MG/DL (0.2-1.0) Aspartate Amino Transf (AST/SGOT) 21 U/L (15-37) Alanine Aminotransferase (ALT/SGPT) 17 U/L (12-78) Alkaline Phosphatase 116 U/L (46-116) Total Protein 7.0 G/DL (6.4-8.2) Albumin 1.6 G/DL (3.4-5.0) L Globulin 5.4 g/dL Albumin/Globulin Ratio 0.3 (1.0-2.7) L Current Medications Medications (Trade) Dose Ordered Sig/Debi Route PRN Reason Start Time Stop Time Status Last Admin Dose Admin Acetaminophen (Tylenol) 650 mg Q4H PRN ORAL fever 09/25/20 00:15 10/25/20 00:14 09/26/20 21:19 Albuterol/ Ipratropium (Albuterol/ Ipratropium) 3 ml Q4HRT PRN HHN Shortness of Breath 09/25/20 00:15 09/30/20 00:14 Chlorhexidine Gluconate (Jazmin-Hex 2%) 1 applic DAILY@1999 TOPIC 09/26/20 20:00 12/25/20 19:59 09/27/20 20:11 Dextrose (Dextrose 50%) 25 ml Q30M PRN IV Hypoglycemia 09/25/20 15:30 12/24/20 15:29 Dextrose (Dextrose 50%) 50 ml Q30M PRN IV Hypoglycemia 09/25/20 15:30 12/24/20 15:29 Ertapenem 1 gm/ Sodium Chloride 55 ml @ 110 mls/hr Q24H IV 09/26/20 12:00 09/30/20 11:59 UNV 09/27/20 12:00 Heparin Sodium (Porcine) (Heparin 5000 units/ml) 5,000 units EVERY 12 HOURS SUBQ 09/25/20 09:00 11/09/20 08:59 09/27/20 21:03 Insulin Aspart (NovoLOG) BEFORE MEALS AND HS SUBQ 09/25/20 16:30 12/24/20 16:29 09/28/20 06:09 Linezolid 300 ml @ 300 mls/hr Q12HR IVPB 09/25/20 21:00 10/02/20 20:59 09/27/20 21:01 Lorazepam (Ativan 2mg/ml 1ml) 2 mg Q2H PRN IV For Anxiety 09/25/20 00:15 10/02/20 00:14 Morphine Sulfate (Morphine Sulfate) 4 mg Q4H PRN IVP Severe Pain (Pain Scale 7-10) 09/25/20 00:15 10/02/20 00:14 Norepinephrine Bitartrate 4 mg/ Dextrose 250 ml @ 0 mls/hr Q24H IV 09/25/20 13:00 09/28/20 12:59 09/26/20 23:18 Ondansetron HCl (Zofran) 4 mg Q6H PRN IVP Nausea & Vomiting 09/25/20 00:15 10/25/20 00:14 Pantoprazole (Protonix) 40 mg Q12HR IVP 09/25/20 21:00 10/25/20 08:59 09/27/20 21:01 Polyethylene Glycol (Miralax) 17 gm DAILYPRN PRN ORAL Constipation 09/25/20 00:15 10/25/20 00:14 Marixa Oliva M.D. Sep 28, 2020 08:38
[2020-09-28] MEDS: Heparin 5000 units/ml inj SUBQ SCH ×2 (08:39→19:51)
--- NOTE | 2020-09-28 11:16 | Pulmonolgy Critical Care Note ---
Critical Care - Asmt/Plan Problems: (1) Acute respiratory failure (2) Severe sepsis (3) Diabetes mellitus (4) Severe protein-calorie malnutrition (5) History of hypertension (6) History of CVA (cerebrovascular accident) (7) Parkinson disease (8) Feeding by G-tube Respiratory: monitor respiratory rate, adjust FIO2, CXR Cardiac: continue pressors, continue to monitor HR/BP Renal: F/U I&O, keep IV fluid Infectious Disease: check cultures, continue antibiotics Gastrointestinal: continue feedings/current rate Endocrine: continue sliding scale insulin Hematologic: monitor H/H, transfuse if hgb<8.5 Neurologic: PRN Ativan, keep patient comfortable Affect: PRN ativan Prophylaxis: Protonix, Heparin Disposition: keep in ICU Notes Reviewed: pencil sorter, renal, ID Discussed with: nurses, consultants, renal case managerefficiency manager - Objective Last 24 Hour Vital Signs Date Time Temp Pulse Resp B/P (MAP) Pulse Ox O2 Delivery O2 Flow Rate FiO2 09/28/20 11:09 103 16 40 09/28/20 10:28 98.7 09/28/20 07:40 115 16 40 09/28/20 07:00 112 18 113/57 (75) 100 09/28/20 06:00 114 18 112/58 (76) 100 09/28/20 05:00 113 16 122/60 (80) 100 09/28/20 04:00 99.5 112 16 131/58 (82) 100 09/28/20 04:00 Mechanical Ventilator 09/28/20 04:00 40.0 09/28/20 04:00 110 09/28/20 03:00 110 16 123/57 (79) 100 09/28/20 02:46 110 20 40 09/28/20 02:00 112 16 122/55 (77) 100 09/28/20 01:00 111 16 108/52 (70) 100 09/28/20 00:00 112 09/28/20 00:00 Mechanical Ventilator 09/28/20 00:00 99.0 111 16 111/50 (70) 100 09/28/20 00:00 40.0 09/27/20 23:10 110 16 40 09/27/20 23:00 110 16 110/50 (70) 100 09/27/20 22:00 113 18 105/50 (68) 100 09/27/20 21:00 106 16 105/54 (71) 100 09/27/20 20:00 Mechanical Ventilator 09/27/20 20:00 40.0 09/27/20 20:00 100.3 103 16 107/54 (71) 100 09/27/20 20:00 105 09/27/20 19:00 110 16 108/58 (75) 100 09/27/20 18:56 111 16 40 09/27/20 18:00 111 16 101/50 (67) 100 09/27/20 17:00 108 16 104/53 (70) 100 09/27/20 16:00 40.0 09/27/20 16:00 109 09/27/20 16:00 Mechanical Ventilator 09/27/20 16:00 99.0 109 16 107/55 (72) 100 09/27/20 15:26 109 17 40 09/27/20 15:00 111 16 95/53 (67) 100 09/27/20 14:00 115 16 117/54 (75) 100 09/27/20 13:00 110 17 102/56 (71) 100 09/27/20 12:00 112 17 113/53 (73) 100 09/27/20 12:00 114 09/27/20 12:00 40.0 09/27/20 12:00 Mechanical Ventilator Status: awake Condition: critical Neck: full ROM Heart: HR/BP stable Abdomen: soft, non-tender Extremities: no C/C/E Micro: Microbiology Date/Time Source Procedure Growth Status 09/28/20 00:30 Stool Clostridium difficile Toxin Assay - Final Complete 09/25/20 23:00 Nasopharynx Coronavirus COVID-19 PCR ([facility]) - Final Complete Accucheck: 182 Critical Care - Subjective ROS Limited/Unobtainable: Yes Condition: critical EKG Rhythm: Sinus Rhythm FI02: 40 Vent Support Breath Rate: 16 Vent Support Mode: AC Vent Tidal Volume: 600 Sputum Amount: Small PEEP: 0.0 PIP: 20 Tube Feeding Amount: 75 I&O: Intake and Output 09/27/20 09/28/20 19:00 07:00 Intake Total 1659.0 ml 900 ml Output Total 1200 ml 1325 ml Balance 459.0 ml -425 ml IV Total 684.0 ml Tube Feeding 975 ml 900 ml Output Urine Total 1200 ml 1325 ml # Bowel Movements 2 CXR: no acute infiltrate, ET in good position ET-Tube: 7.0 ET Position: 23 Labs: Laboratory Tests Test 09/27/20 20:39 09/28/20 04:53 09/28/20 08:27 POC Whole Blood Glucose 193 MG/DL (74-106) H White Blood Count 11.3 K/UL (4.8-10.8) H Red Blood Count 3.63 M/UL (4.70-6.10) L Hemoglobin 9.7 G/DL (14.2-18.0) L Hematocrit 29.8 % (42.0-52.0) L Mean Corpuscular Volume 82 FL (80-99) Mean Corpuscular Hemoglobin 26.6 PG (27.0-31.0) L Mean Corpuscular Hemoglobin Concent 32.4 G/DL (32.0-36.0) Red Cell Distribution Width 15.6 % (11.6-14.8) H Platelet Count 135 K/UL (150-450) L Mean Platelet Volume 13.0 FL (6.5-10.1) H Neutrophils (%) (Auto) 72.9 % (45.0-75.0) Lymphocytes (%) (Auto) 21.1 % (20.0-45.0) Monocytes (%) (Auto) 3.9 % (1.0-10.0) Eosinophils (%) (Auto) 1.6 % (0.0-3.0) Basophils (%) (Auto) 0.5 % (0.0-2.0) Sodium Level 154 MMOL/L (136-145) H Potassium Level 3.5 MMOL/L (3.5-5.1) Chloride Level 120 MMOL/L (98-107) H Carbon Dioxide Level 21 MMOL/L (21-32) Anion Gap 13 mmol/L (5-15) Blood Urea Nitrogen 20 mg/dL (7-18) H Creatinine 1.6 MG/DL (0.55-1.30) H Estimat Glomerular Filtration Rate 50.8 mL/min (>60) Glucose Level 216 MG/DL (74-106) H Uric Acid 7.1 MG/DL (2.6-7.2) Calcium Level 8.2 MG/DL (8.5-10.1) L Phosphorus Level 2.8 MG/DL (2.5-4.9) Magnesium Level 1.8 MG/DL (1.8-2.4) Total Bilirubin 0.4 MG/DL (0.2-1.0) Aspartate Amino Transf (AST/SGOT) 21 U/L (15-37) Alanine Aminotransferase (ALT/SGPT) 17 U/L (12-78) Alkaline Phosphatase 116 U/L (46-116) Total Protein 7.0 G/DL (6.4-8.2) Albumin 1.6 G/DL (3.4-5.0) L Globulin 5.4 g/dL Albumin/Globulin Ratio 0.3 (1.0-2.7) L Arterial Blood pH 7.456 (7.350-7.450) Arterial Blood Partial Pressure CO2 28.6 mmHg (35.0-45.0) L Arterial Blood Partial Pressure O2 102.6 mmHg (75.0-100.0) H Arterial Blood HCO3 19.7 mmol/L (22.0-26.0) L Arterial Blood Oxygen Saturation 97.3 % (95-100) Arterial Blood Base Excess -3.3 (-2-2) L Raz Test Positive Latanya Mckeon MD Sep 28, 2020 11:16
[2020-09-28] MEDS: Ertapenem 1 GM in NS 55 ML IV SCH (12:21)
--- NOTE | 2020-09-28 12:32 | Internal Med Progress Note ---
Subjective Date of Service: Sep 28, 2020 Physician Name JordynTello Attending Physician Cirilo Rome MD Current Medications Medications (Trade) Dose Ordered Sig/Debi Route PRN Reason Start Time Stop Time Status Last Admin Dose Admin Acetaminophen (Tylenol) 650 mg Q4H PRN ORAL fever 09/25/20 00:15 10/25/20 00:14 09/28/20 09:47 Albuterol/ Ipratropium (Albuterol/ Ipratropium) 3 ml Q4HRT PRN HHN Shortness of Breath 09/25/20 00:15 09/30/20 00:14 Chlorhexidine Gluconate (Jazmin-Hex 2%) 1 applic DAILY@2000 TOPIC 09/26/20 20:00 12/25/20 19:59 09/27/20 20:11 Dextrose 1,000 ml @ 100 mls/hr Q10H ONCE IV 09/28/20 10:32 09/28/20 20:31 09/28/20 12:20 Dextrose (Dextrose 50%) 25 ml Q30M PRN IV Hypoglycemia 09/25/20 15:30 12/24/20 15:29 Dextrose (Dextrose 50%) 50 ml Q30M PRN IV Hypoglycemia 09/25/20 15:30 12/24/20 15:29 Ertapenem 1 gm/ Sodium Chloride 55 ml @ 110 mls/hr Q24H IV 09/26/20 12:00 09/30/20 11:59 UNV 09/28/20 12:21 Heparin Sodium (Porcine) (Heparin 5000 units/ml) 5,000 units EVERY 12 HOURS SUBQ 09/25/20 09:00 11/09/20 08:59 09/27/20 21:03 Insulin Aspart (NovoLOG) BEFORE MEALS AND HS SUBQ 09/25/20 16:30 12/24/20 16:29 09/28/20 06:09 Linezolid 300 ml @ 300 mls/hr Q12HR IVPB 09/25/20 21:00 10/02/20 20:59 09/28/20 08:39 Lorazepam (Ativan 2mg/ml 1ml) 2 mg Q2H PRN IV For Anxiety 09/25/20 00:15 10/02/20 00:14 Morphine Sulfate (Morphine Sulfate) 4 mg Q4H PRN IVP Severe Pain (Pain Scale 7-10) 09/25/20 00:15 10/02/20 00:14 Norepinephrine Bitartrate 4 mg/ Dextrose 250 ml @ 0 mls/hr Q24H IV 09/25/20 13:00 09/28/20 12:59 09/26/20 23:18 Ondansetron HCl (Zofran) 4 mg Q6H PRN IVP Nausea & Vomiting 09/25/20 00:15 10/25/20 00:14 Pantoprazole (Protonix) 40 mg Q12HR IVP 09/25/20 21:00 10/25/20 08:59 09/28/20 08:38 Polyethylene Glycol (Miralax) 17 gm DAILYPRN PRN ORAL Constipation 09/25/20 00:15 10/25/20 00:14 Allergies: Coded Allergies: No Known Allergies (Unverified , 08/27/19) ROS Limited/Unobtainable: Yes Subjective 80 YO M admitted with respiratory failure. Intubated and sedated. Cover for In t Med-DR Rome. ICU Objective Last Vital Signs Date Time Temp Pulse Resp B/P (MAP) Pulse Ox O2 Delivery O2 Flow Rate FiO2 09/28/20 11:09 103 16 40 09/28/20 10:28 98.7 09/28/20 07:00 113/57 (75) 100 09/28/20 04:00 Mechanical Ventilator 09/28/20 04:00 40.0 Laboratory Tests Test 09/27/20 20:39 09/28/20 04:53 09/28/20 08:27 POC Whole Blood Glucose 193 MG/DL (74-106) H White Blood Count 11.3 K/UL (4.8-10.8) H Red Blood Count 3.63 M/UL (4.70-6.10) L Hemoglobin 9.7 G/DL (14.2-18.0) L Hematocrit 29.8 % (42.0-52.0) L Mean Corpuscular Volume 82 FL (80-99) Mean Corpuscular Hemoglobin 26.6 PG (27.0-31.0) L Mean Corpuscular Hemoglobin Concent 32.4 G/DL (32.0-36.0) Red Cell Distribution Width 15.6 % (11.6-14.8) H Platelet Count 135 K/UL (150-450) L Mean Platelet Volume 13.0 FL (6.5-10.1) H Neutrophils (%) (Auto) 72.9 % (45.0-75.0) Lymphocytes (%) (Auto) 21.1 % (20.0-45.0) Monocytes (%) (Auto) 3.9 % (1.0-10.0) Eosinophils (%) (Auto) 1.6 % (0.0-3.0) Basophils (%) (Auto) 0.5 % (0.0-2.0) Sodium Level 154 MMOL/L (136-145) H Potassium Level 3.5 MMOL/L (3.5-5.1) Chloride Level 120 MMOL/L (98-107) H Carbon Dioxide Level 21 MMOL/L (21-32) Anion Gap 13 mmol/L (5-15) Blood Urea Nitrogen 20 mg/dL (7-18) H Creatinine 1.6 MG/DL (0.55-1.30) H Estimat Glomerular Filtration Rate 50.8 mL/min (>60) Glucose Level 216 MG/DL (74-106) H Uric Acid 7.1 MG/DL (2.6-7.2) Calcium Level 8.2 MG/DL (8.5-10.1) L Phosphorus Level 2.8 MG/DL (2.5-4.9) Magnesium Level 1.8 MG/DL (1.8-2.4) Total Bilirubin 0.4 MG/DL (0.2-1.0) Aspartate Amino Transf (AST/SGOT) 21 U/L (15-37) Alanine Aminotransferase (ALT/SGPT) 17 U/L (12-78) Alkaline Phosphatase 116 U/L (46-116) Total Protein 7.0 G/DL (6.4-8.2) Albumin 1.6 G/DL (3.4-5.0) L Globulin 5.4 g/dL Albumin/Globulin Ratio 0.3 (1.0-2.7) L Arterial Blood pH 7.456 (7.350-7.450) Arterial Blood Partial Pressure CO2 28.6 mmHg (35.0-45.0) L Arterial Blood Partial Pressure O2 102.6 mmHg (75.0-100.0) H Arterial Blood HCO3 19.7 mmol/L (22.0-26.0) L Arterial Blood Oxygen Saturation 97.3 % (95-100) Arterial Blood Base Excess -3.3 (-2-2) L Raz Test Positive Microbiology Date/Time Source Procedure Growth Status 09/28/20 00:30 Stool Clostridium difficile Toxin Assay - Final Complete 09/25/20 23:00 Nasopharynx Coronavirus COVID-19 PCR ([facility]) - Final Complete Intake and Output 09/27/20 09/28/20 19:00 07:00 Intake Total 1659.0 ml 900 ml Output Total 1200 ml 1325 ml Balance 459.0 ml -425 ml IV Total 684.0 ml Tube Feeding 975 ml 900 ml Output Urine Total 1200 ml 1325 ml # Bowel Movements 2 Objective PHYSICAL EXAMINATION: VITAL SIGNS: Temperature 103.5 degrees Fahrenheit, respiratory rate 24, pulse 138, blood pressure 130/83, pulse ox was 100% on mechanical ventilation with 60% FiO2. GENERAL: The patient is well-developed and well-nourished male, who is intubated and sedated. HEENT: Eyes, pupils are equal responsive to light and accommodation. Extraocular movements are intact. NECK: Supple without lymphadenopathy. CHEST: Mech vent; Decreased breath sounds bilateral bases, otherwise without wheezes or rales. CARDIOVASCULAR: Regular rate. S1 and S2 normal without murmurs, rubs, or gallops. ABDOMEN: Soft, nontender, and nondistended. Positive bowel sounds. No evidence of hepatosplenomegaly. Currently, no rebound or guarding noted. EXTREMITIES: Negative for clubbing, cyanosis, or edema. RECTAL/GENITAL: Not performed. NEUROLOGIC: Unable to assess Assessment/Plan Assessment/Plan ASSESSMENT: This is a 80-year-old male. 1. Respiratory failure. 2. Bilateral pneumonia. 3. Hypertension. 4. Diabetes type 2. 5. Hypercholesterolemia. 6. Parkinson disease. 7. COVID-19 negative. 8. Ulcerative proctitis. 9. Benign prostatic hypertrophy. 10. Gastroesophageal reflux disease. 11. Urinary tract infection=proteus mirabilis 12. Sepsis=coag neg staph TREATMENT: 1. Pneumonia/respiratory failure. Infectious diseases = Drs. Harris/Pj. Merissa Pulmonary/Critical care= Dr. Latanya Mckeon. The patient is currently intubated on the mechanical ventilator in the intensive care unit. ABX= vancomycin, amikacin, and ertapenem. Follow recommendation of Infectious Diseases. Await sputumcultures. 2. Urinary tract infection. ABX= ertapenem, amikacin, vancomycin and linezolid. An Infectious Disease consultation has been obtained with Dr. Harris. 3. Hypertension. The patient is currently hypotensive. 4. Diabetes type 2. NovoLog sliding scale has been instituted. 5. Hypercholesterolemia. Continue simvastatin as above. 6. Parkinson disease. 7. Ulcerative proctitis. 8. Benign prostatic hypertrophy. 9. Gastroesophageal reflux disease. 10. Dysphagia. The patient is status post PEG placement. Tello Cobb MD Sep 28, 2020 12:32
--- NOTE | 2020-09-28 13:46 | Diagnostic Imaging Report ---
Indication: Shortness of breath Technique: One view of the chest Comparison: 09/26/2020 Findings: Stable satisfactory position of endotracheal tube. No airspace consolidation or effusions. Equivocal minimal interstitial prominence is unchanged. Impression: Unchanged, over 2 days, findings as above.
--- NOTE | 2020-09-28 15:37 | Surgery Progress Note ---
Surgery Progress Note Subjective Additional Comments no acute events comfortable on support weaning no n/v labs noted Objective Last 24 Hour Vital Signs Date Time Temp Pulse Resp B/P (MAP) Pulse Ox O2 Delivery O2 Flow Rate FiO2 09/28/20 14:33 104 17 40 09/28/20 14:00 103 16 131/60 (83) 100 09/28/20 13:00 105 20 141/59 (86) 100 09/28/20 12:00 40.0 09/28/20 12:00 103 09/28/20 12:00 98.9 98 16 122/61 (81) 100 09/28/20 12:00 Mechanical Ventilator 09/28/20 11:09 103 16 40 09/28/20 11:00 103 16 102/56 (71) 100 09/28/20 10:28 98.7 09/28/20 10:00 98.6 112 15 102/52 (69) 100 09/28/20 09:00 109 16 116/53 (74) 100 09/28/20 08:00 101 09/28/20 08:00 40.0 09/28/20 08:00 102.3 111 16 114/54 (74) 100 09/28/20 08:00 Mechanical Ventilator 09/28/20 07:40 115 16 40 09/28/20 07:00 112 18 113/57 (75) 100 09/28/20 06:00 114 18 112/58 (76) 100 09/28/20 05:00 113 16 122/60 (80) 100 09/28/20 04:00 99.5 112 16 131/58 (82) 100 09/28/20 04:00 Mechanical Ventilator 09/28/20 04:00 40.0 09/28/20 04:00 110 09/28/20 03:00 110 16 123/57 (79) 100 09/28/20 02:46 110 20 40 09/28/20 02:00 112 16 122/55 (77) 100 09/28/20 01:00 111 16 108/52 (70) 100 09/28/20 00:00 112 09/28/20 00:00 Mechanical Ventilator 09/28/20 00:00 99.0 111 16 111/50 (70) 100 09/28/20 00:00 40.0 09/27/20 23:10 110 16 40 09/27/20 23:00 110 16 110/50 (70) 100 09/27/20 22:00 113 18 105/50 (68) 100 09/27/20 21:00 106 16 105/54 (71) 100 09/27/20 20:00 Mechanical Ventilator 09/27/20 20:00 40.0 09/27/20 20:00 100.3 103 16 107/54 (71) 100 09/27/20 20:00 105 09/27/20 19:00 110 16 108/58 (75) 100 09/27/20 18:56 111 16 40 09/27/20 18:00 111 16 101/50 (67) 100 09/27/20 17:00 108 16 104/53 (70) 100 09/27/20 16:00 40.0 09/27/20 16:00 109 09/27/20 16:00 Mechanical Ventilator 09/27/20 16:00 99.0 109 16 107/55 (72) 100 I&O Intake and Output 09/27/20 09/28/20 19:00 07:00 Intake Total 1659.0 ml 900 ml Output Total 1200 ml 1325 ml Balance 459.0 ml -425 ml IV Total 684.0 ml Tube Feeding 975 ml 900 ml Output Urine Total 1200 ml 1325 ml # Bowel Movements 2 Dressing: saturated Cardiovascular: RSR Respiratory: decreased breath sounds Abdomen: non-tender, present bowel sounds Extremities: no tenderness, no cyanosis Laboratory Tests Test 09/27/20 20:39 09/28/20 04:53 09/28/20 08:27 POC Whole Blood Glucose 193 MG/DL (74-106) H White Blood Count 11.3 K/UL (4.8-10.8) H Red Blood Count 3.63 M/UL (4.70-6.10) L Hemoglobin 9.7 G/DL (14.2-18.0) L Hematocrit 29.8 % (42.0-52.0) L Mean Corpuscular Volume 82 FL (80-99) Mean Corpuscular Hemoglobin 26.6 PG (27.0-31.0) L Mean Corpuscular Hemoglobin Concent 32.4 G/DL (32.0-36.0) Red Cell Distribution Width 15.6 % (11.6-14.8) H Platelet Count 135 K/UL (150-450) L Mean Platelet Volume 13.0 FL (6.5-10.1) H Neutrophils (%) (Auto) 72.9 % (45.0-75.0) Lymphocytes (%) (Auto) 21.1 % (20.0-45.0) Monocytes (%) (Auto) 3.9 % (1.0-10.0) Eosinophils (%) (Auto) 1.6 % (0.0-3.0) Basophils (%) (Auto) 0.5 % (0.0-2.0) Sodium Level 154 MMOL/L (136-145) H Potassium Level 3.5 MMOL/L (3.5-5.1) Chloride Level 120 MMOL/L (98-107) H Carbon Dioxide Level 21 MMOL/L (21-32) Anion Gap 13 mmol/L (5-15) Blood Urea Nitrogen 20 mg/dL (7-18) H Creatinine 1.6 MG/DL (0.55-1.30) H Estimat Glomerular Filtration Rate 50.8 mL/min (>60) Glucose Level 216 MG/DL (74-106) H Uric Acid 7.1 MG/DL (2.6-7.2) Calcium Level 8.2 MG/DL (8.5-10.1) L Phosphorus Level 2.8 MG/DL (2.5-4.9) Magnesium Level 1.8 MG/DL (1.8-2.4) Total Bilirubin 0.4 MG/DL (0.2-1.0) Aspartate Amino Transf (AST/SGOT) 21 U/L (15-37) Alanine Aminotransferase (ALT/SGPT) 17 U/L (12-78) Alkaline Phosphatase 116 U/L (46-116) Total Protein 7.0 G/DL (6.4-8.2) Albumin 1.6 G/DL (3.4-5.0) L Globulin 5.4 g/dL Albumin/Globulin Ratio 0.3 (1.0-2.7) L Arterial Blood pH 7.456 (7.350-7.450) Arterial Blood Partial Pressure CO2 28.6 mmHg (35.0-45.0) L Arterial Blood Partial Pressure O2 102.6 mmHg (75.0-100.0) H Arterial Blood HCO3 19.7 mmol/L (22.0-26.0) L Arterial Blood Oxygen Saturation 97.3 % (95-100) Arterial Blood Base Excess -3.3 (-2-2) L Raz Test Positive Plan Problems: (1) Hypoxia (2) Severe sepsis Assessment & Plan: leukocytosis lactic acidosis anemia renal insufficiency on support in ICU dressings changed and care plan initiated cont abx trend labs if fluids am imaging ordered Pt presented on admission with purple and indurated area at Sacrococcygeal at previously compromised site(L)7cm x (W)3cm.Surrounding Hyperpigmentation at Sacrum. Non-Blanching erythema without fluctuance R heel. Non-Blanching erythema with delineated margins L heel (L)4.5cm x (W)5.5cm. L Heel is boggy . Tx.Plan: Apply Moisture Barrier Paste to Sacrum. Cover with Optifoam drsgs. Change every 3 days and prn. Apply Cavilon Skin Barrier to R and L trochanter. Cover each site with Optifoam drsgs. Change every 7 days and prn. Apply Cavilon Skin Barrier to each heel and malleoli. Cover each site with Optifoam drsgs. Change every 7 days and prn. Reposition at least every 2hours or as tolerated. Off-load heels with pillow. improving cont current care tube site okay DAILY ESTIMATED NEEDS: Needs based on Critical care, DM, Wound/ 53kg 22-30 kcals/kg 0344-0396 total kcals 1.25-2 g protein/kg 66-106 g total protein 25-30 mL/kg [address] total fluid mLs NUTRITION DIAGNOSIS: * Swallowing difficulty R/T dysphagia as evidenced by Pt is GT dep, currently orally intubated, on pressor support, NPO. CURRENT TF:NPO ENTERAL NUTRITION RECOMMENDATIONS: Glucerna 1.2 @ 55ml/hr x 24 hrs to provide 1320ml, 1584kcal, 79g prot, 1063ml free water * As medically appropriate and with hemodynamic stability -> initiate Glucerna 1.2 @ 25ml/hr x 6hrs, advance 10ml q 4-6 hrs as tolerated to goal rate * HOB over 30 degrees * H2O flush of 100ml q 6hrs --------- Without hemodynamic stability, rec trophic feeding of Glucerna 1.2 @ 10- 15ml/hr ADDITIONAL RECOMMENDATIONS: * Per SNF: HT=5'7" WT= 138lbs (as of Sep 13, 2020) * Monitor hemodyanmic stability: NE @ 8mcg * Wound healing: TF rec @ goal provides 100% RDI add Vit C 500mg QD + Terrance BID via TF * Monitor lytes, replete as needed (low K) * Monitor BGs, consider long acting insulin w/ TF Monitor closely for hypoglycemia while NPO (3) Dehydration (4) Hypernatremia (5) Clostridium difficile colitis (6) Staphylococcus aureus bacteremia (7) Hip fracture, left (8) Diabetes mellitus (9) History of hypertension (10) Severe protein-calorie malnutrition (11) Acute encephalopathy (12) Pressure Ulcer Of Sacral Region, Unstageable (13) Feeding by G-tube (14) Abdominal distention (15) Multiple drug resistant organism (MDRO) culture positive (16) Sepsis (17) History of CVA (cerebrovascular accident) (18) Parkinson disease James Breen Sep 28, 2020 15:37
--- NOTE | 2020-09-28 15:46 | Nephrology Progress Note ---
Assessment/Plan Problem List: (1) KELLY (acute kidney injury) (2) Dehydration (3) Hypernatremia (4) Severe sepsis (5) History of CVA (cerebrovascular accident) (6) Parkinson disease (7) Acute respiratory failure (8) Elevated lipase Assessment KELLY, Hypernatremia, dehydration, free water deficit Sepsis Acute respiratory failure requiring intubation and mechanical ventilation Diabetes mellitus [id number] GT feeding History of CVA History of hypertension Parkinson's disease Elevated lipase Plan September 28: Labs reviewed. Creatinine 1.6 unchanged. Hypernatremia persists. Will give 1 L of D5W. Continue to monitor renal parameters and electrolytes. Continue per consultants. September 27: Labs reviewed. Serum sodium lowering. Serum creatinine lowering. Blood sugar somewhat better controlled. Patient continues to be on free water through tube feeding. Continue to monitor renal parameters and electrolytes. Abnormal electrolytes addressed. September 26: IV fluids stopped. Patient receiving free water reviewed NG tube. Patient full code. Intubated on ventilator. Discussed with JOHNNY Christensen. Continue to monitor renal parameters. Serum creatinine lower but abnormal electrolyte persists and was addressed. Previously: IV fluid half-normal saline 125 cc an hour Albumin fluid challenge Monitor electrolytes Monitor renal parameters Hold blood pressure medication since blood pressure low Per orders, per consultants Subjective ROS Limited/Unobtainable: Yes Objective Objective Last 24 Hour Vital Signs Date Time Temp Pulse Resp B/P (MAP) Pulse Ox O2 Delivery O2 Flow Rate FiO2 09/28/20 14:33 104 17 40 09/28/20 14:00 103 16 131/60 (83) 100 09/28/20 13:00 105 20 141/59 (86) 100 09/28/20 12:00 40.0 09/28/20 12:00 103 09/28/20 12:00 98.9 98 16 122/61 (81) 100 09/28/20 12:00 Mechanical Ventilator 09/28/20 11:09 103 16 40 09/28/20 11:00 103 16 102/56 (71) 100 09/28/20 10:28 98.7 09/28/20 10:00 98.6 112 15 102/52 (69) 100 09/28/20 09:00 109 16 116/53 (74) 100 09/28/20 08:00 101 09/28/20 08:00 40.0 09/28/20 08:00 102.3 111 16 114/54 (74) 100 09/28/20 08:00 Mechanical Ventilator 09/28/20 07:40 115 16 40 09/28/20 07:00 112 18 113/57 (75) 100 09/28/20 06:00 114 18 112/58 (76) 100 09/28/20 05:00 113 16 122/60 (80) 100 09/28/20 04:00 99.5 112 16 131/58 (82) 100 09/28/20 04:00 Mechanical Ventilator 09/28/20 04:00 40.0 09/28/20 04:00 110 09/28/20 03:00 110 16 123/57 (79) 100 09/28/20 02:46 110 20 40 09/28/20 02:00 112 16 122/55 (77) 100 09/28/20 01:00 111 16 108/52 (70) 100 09/28/20 00:00 112 09/28/20 00:00 Mechanical Ventilator 09/28/20 00:00 99.0 111 16 111/50 (70) 100 09/28/20 00:00 40.0 09/27/20 23:10 110 16 40 09/27/20 23:00 110 16 110/50 (70) 100 09/27/20 22:00 113 18 105/50 (68) 100 09/27/20 21:00 106 16 105/54 (71) 100 09/27/20 20:00 Mechanical Ventilator 09/27/20 20:00 40.0 09/27/20 20:00 100.3 103 16 107/54 (71) 100 09/27/20 20:00 105 09/27/20 19:00 110 16 108/58 (75) 100 09/27/20 18:56 111 16 40 09/27/20 18:00 111 16 101/50 (67) 100 09/27/20 17:00 108 16 104/53 (70) 100 09/27/20 16:00 40.0 09/27/20 16:00 109 09/27/20 16:00 Mechanical Ventilator 09/27/20 16:00 99.0 109 16 107/55 (72) 100 Intake and Output 09/27/20 09/28/20 19:00 07:00 Intake Total 1659.0 ml 900 ml Output Total 1200 ml 1325 ml Balance 459.0 ml -425 ml IV Total 684.0 ml Tube Feeding 975 ml 900 ml Output Urine Total 1200 ml 1325 ml # Bowel Movements 2 Current Medications Medications (Trade) Dose Ordered Sig/Debi Route PRN Reason Start Time Stop Time Status Last Admin Dose Admin Acetaminophen (Tylenol) 650 mg Q4H PRN ORAL fever 09/25/20 00:15 10/25/20 00:14 09/28/20 09:47 Albuterol/ Ipratropium (Albuterol/ Ipratropium) 3 ml Q4HRT PRN HHN Shortness of Breath 09/25/20 00:15 09/30/20 00:14 Chlorhexidine Gluconate (Jazmin-Hex 2%) 1 applic DAILY@2000 TOPIC 09/26/20 20:00 12/25/20 19:59 09/27/20 20:11 Dextrose 1,000 ml @ 100 mls/hr Q10H ONCE IV 09/28/20 10:32 09/28/20 20:31 09/28/20 12:20 Dextrose (Dextrose 50%) 25 ml Q30M PRN IV Hypoglycemia 09/25/20 15:30 12/24/20 15:29 Dextrose (Dextrose 50%) 50 ml Q30M PRN IV Hypoglycemia 09/25/20 15:30 12/24/20 15:29 Ertapenem 1 gm/ Sodium Chloride 55 ml @ 110 mls/hr Q24H IV 09/26/20 12:00 09/30/20 11:59 UNV 09/28/20 12:21 Heparin Sodium (Porcine) (Heparin 5000 units/ml) 5,000 units EVERY 12 HOURS SUBQ 09/25/20 09:00 11/09/20 08:59 09/27/20 21:03 Insulin Aspart (NovoLOG) BEFORE MEALS AND HS SUBQ 09/25/20 16:30 12/24/20 16:29 09/28/20 06:09 Linezolid 300 ml @ 300 mls/hr Q12HR IVPB 09/25/20 21:00 10/02/20 20:59 09/28/20 08:39 Lorazepam (Ativan 2mg/ml 1ml) 2 mg Q2H PRN IV For Anxiety 09/25/20 00:15 10/02/20 00:14 Morphine Sulfate (Morphine Sulfate) 4 mg Q4H PRN IVP Severe Pain (Pain Scale 7-10) 09/25/20 00:15 10/02/20 00:14 Ondansetron HCl (Zofran) 4 mg Q6H PRN IVP Nausea & Vomiting 09/25/20 00:15 10/25/20 00:14 Pantoprazole (Protonix) 40 mg Q12HR IVP 09/25/20 21:00 10/25/20 08:59 09/28/20 08:38 Polyethylene Glycol (Miralax) 17 gm DAILYPRN PRN ORAL Constipation 09/25/20 00:15 10/25/20 00:14 Laboratory Tests 09/27/20 20:39: POC Whole Blood Glucose 193H 09/28/20 04:53: White Blood Count 11.3H, Red Blood Count 3.63L, Hemoglobin 9.7L, Hematocrit 29.8L, Mean Corpuscular Volume 82, Mean Corpuscular Hemoglobin 26.6L, Mean Corpu scular Hemoglobin Concent 32.4, Red Cell Distribution Width 15.6H, Platelet Count 135L, Mean Platelet Volume 13.0H, Neutrophils (%) (Auto) 72.9, Lymphocytes (%) (Auto) 21.1, Monocytes (%) (Auto) 3.9, Eosinophils (%) (Auto) 1.6, Basophils (%) (Auto) 0.5, Sodium Level 154H, Potassium Level 3.5, Chloride Level 120H, Carbon Dioxide Level 21, Anion Gap 13, Blood Urea Nitrogen 20H, Creatinine 1.6H, Estimat Glomerular Filtration Rate 50.8, Glucose Level 216H, Uric Acid 7.1, Calcium Level 8.2L, Phosphorus Level 2.8, Magnesium Level 1.8, Total Bilirubin 0.4, Aspartate Amino Transf (AST/SGOT) 21, Alanine Aminotransferase (ALT/SGPT) 17, Alkaline Phosphatase 116, Total Protein 7.0, Albumin 1.6L, Globulin 5.4, Albumin/Globulin Ratio 0.3L 09/28/20 08:27: Arterial Blood pH 7.456H, Arterial Blood Partial Pressure CO2 28.6L, Arterial Blood Partial Pressure O2 102.6H, Arterial Blood HCO3 19.7L, Arterial Blood Oxygen Saturation 97.3, Arterial Blood Base Excess -3.3L, Raz Test Positive Height (Feet): 5 Height (Inches): 10.00 Weight (Pounds): 180 General Appearance: no apparent distress EENT: other - Intubated on ventilator Cardiovascular: tachycardia Respiratory/Chest: decreased breath sounds Abdomen: distended Eddie Nelson MD Sep 28, 2020 15:45
[2020-09-28] MEDS: Dyna-Hex 2% Top Sol 2oz TOPIC SCH (19:50)
[2020-09-29] VITALS (24 sets, daily range): BP systolic 93–132; BP diastolic 52–85
[2020-09-29] MEDS: NovoLOG Insulin Flexpen SUBQ SCH ×5 (05:42→20:53)
[2020-09-29 05:47] LABS: ALANINE AMINOTRANSFERASE 16 U/L (12-78); ALBUMIN 1.6 G/DL (3.4-5.0); ALBUMIN/GLOBULIN RATIO 0.3 (1.0-2.7); ALKALINE PHOSPHATASE 131 U/L (46-116); ANION GAP 8 mmol/L (5-15); ASPARTATE AMINO TRANSFERASE 20 U/L (15-37); BILIRUBIN,TOTAL 0.3 MG/DL (0.2-1.0); BLOOD UREA NITROGEN 15 mg/dL (7-18); CALCIUM 8.4 MG/DL (8.5-10.1); CARBON DIOXIDE 25 MMOL/L (21-32); CHLORIDE 115 MMOL/L (98-107); CREATININE 1.3 MG/DL (0.55-1.30); SODIUM 148 MMOL/L (136-145)
[2020-09-29 05:50] LABS: PHOSPHORUS 2.6 MG/DL (2.5-4.9)
[2020-09-29 06:23] LABS: BASOPHILS % (AUTO) 0.6 % (0.0-2.0); EOSINOPHILS % (AUTO) 1.7 % (0.0-3.0); HEMATOCRIT 27.7 % (42.0-52.0); HEMOGLOBIN 9.2 G/DL (14.2-18.0); LYMPHOCYTES % (AUTO) 20.7 % (20.0-45.0); MEAN CORPUSCULAR VOLUME 81 FL (80-99); PLATELET COUNT 137 K/UL (150-450); RED BLOOD COUNT 3.41 M/UL (4.70-6.10); RED CELL DISTRIBUTION WIDTH 15.5 % (11.6-14.8)
--- NOTE | 2020-09-29 08:24 | Infectious Diseases Prog Note ---
Assessment/Plan 80yo M with: Sepsis, septic shock GPC bacteremia UTI 2/2 ESBL P.mirabilis R/o aspiration pna Febrile to 105, improving Leukocytosis to 15, improving 09/24 BCx 2/2 CONS UA 20-30 WBC, UCx ESBL P.mirabilis COVID rapid test neg, PCR neg CXR: 1. Coarse bibasilar interstitial lung markings, may represent atypical infectious process such as viral pneumonia versus pulmonary edema. 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 [facility] will continue to follow. Subjective Allergies: Coded Allergies: No Known Allergies (Unverified , 08/27/19) Ongoing fevers to 101 WBC 10, improving Remains on vent Objective Last 24 Hour Vital Signs Date Time Temp Pulse Resp B/P (MAP) Pulse Ox O2 Delivery O2 Flow Rate FiO2 09/29/20 08:00 40 09/29/20 08:00 Mechanical Ventilator 09/29/20 07:00 95 20 112/68 (83) 100 09/29/20 06:00 97 18 125/75 (92) 100 09/29/20 05:00 101 20 117/85 (96) 100 09/29/20 04:00 40 09/29/20 04:00 95 09/29/20 04:00 99.9 98 19 120/75 (90) 100 09/29/20 04:00 Mechanical Ventilator 09/29/20 03:07 100 17 40 09/29/20 03:00 105 16 121/64 (83) 100 09/29/20 02:00 106 16 115/65 (82) 100 09/29/20 01:00 91 16 127/53 (77) 100 09/29/20 00:00 101.5 97 16 132/58 (82) 100 09/29/20 00:00 Mechanical Ventilator 09/29/20 00:00 99 09/28/20 23:00 93 16 134/61 (85) 100 09/28/20 22:48 93 16 40 09/28/20 22:00 96 16 131/59 (83) 100 09/28/20 21:00 100 17 137/59 (85) 100 09/28/20 20:00 40 09/28/20 20:00 Mechanical Ventilator 09/28/20 20:00 99.7 98 16 127/58 (81) 100 09/28/20 20:00 97 09/28/20 19:34 99 18 40 09/28/20 19:00 94 16 116/60 (78) 100 09/28/20 18:00 98 16 119/67 (84) 100 09/28/20 17:00 109 21 139/77 (97) 100 09/28/20 16:00 98.5 09/28/20 16:00 40.0 09/28/20 16:00 Mechanical Ventilator 09/28/20 16:00 101 09/28/20 16:00 98 16 116/58 (77) 100 09/28/20 15:00 102 16 129/61 (83) 100 09/28/20 14:33 104 17 40 09/28/20 14:00 103 16 131/60 (83) 100 09/28/20 13:00 105 20 141/59 (86) 100 09/28/20 12:00 40.0 09/28/20 12:00 103 09/28/20 12:00 98.9 98 16 122/61 (81) 100 09/28/20 12:00 Mechanical Ventilator 09/28/20 11:09 103 16 40 09/28/20 11:00 103 16 102/56 (71) 100 09/28/20 10:28 98.7 09/28/20 10:00 98.6 112 15 102/52 (69) 100 09/28/20 09:00 109 16 116/53 (74) 100 Height (Feet): 5 Height (Inches): 10.00 Weight (Pounds): 180 Gen: NAD HEENT: NCAT Pulm: BL chest rise Abd: Non-distended Ext: No c/c/e Skin: No visible rashes Neuro: Awake Lines: R fem CVC Microbiology Date/Time Source Procedure Growth Status 09/28/20 00:30 Stool Clostridium difficile Toxin Assay - Final Complete 09/26/20 12:20 Blood Blood Culture - Preliminary NO GROWTH AFTER 48 HOURS Resulted Laboratory Tests Test 09/28/20 08:27 09/28/20 16:52 09/28/20 20:08 09/29/20 04:00 Arterial Blood pH 7.456 (7.350-7.450) Arterial Blood Partial Pressure CO2 28.6 mmHg (35.0-45.0) L Arterial Blood Partial Pressure O2 102.6 mmHg (75.0-100.0) H Arterial Blood HCO3 19.7 mmol/L (22.0-26.0) L Arterial Blood Oxygen Saturation 97.3 % (95-100) Arterial Blood Base Excess -3.3 (-2-2) L Raz Test Positive POC Whole Blood Glucose 270 MG/DL (74-106) H Pending White Blood Count 10.0 K/UL (4.8-10.8) Red Blood Count 3.41 M/UL (4.70-6.10) L Hemoglobin 9.2 G/DL (14.2-18.0) L Hematocrit 27.7 % (42.0-52.0) L Mean Corpuscular Volume 81 FL (80-99) Mean Corpuscular Hemoglobin 26.9 PG (27.0-31.0) L Mean Corpuscular Hemoglobin Concent 33.2 G/DL (32.0-36.0) Red Cell Distribution Width 15.5 % (11.6-14.8) H Platelet Count 137 K/UL (150-450) L Mean Platelet Volume 13.1 FL (6.5-10.1) H Neutrophils (%) (Auto) 72.0 % (45.0-75.0) Lymphocytes (%) (Auto) 20.7 % (20.0-45.0) Monocytes (%) (Auto) 5.0 % (1.0-10.0) Eosinophils (%) (Auto) 1.7 % (0.0-3.0) Basophils (%) (Auto) 0.6 % (0.0-2.0) Sodium Level 148 MMOL/L (136-145) H Potassium Level 3.0 MMOL/L (3.5-5.1) L Chloride Level 115 MMOL/L (98-107) H Carbon Dioxide Level 25 MMOL/L (21-32) Anion Gap 8 mmol/L (5-15) Blood Urea Nitrogen 15 mg/dL (7-18) Creatinine 1.3 MG/DL (0.55-1.30) Estimat Glomerular Filtration Rate > 60 mL/min (>60) Glucose Level 186 MG/DL (74-106) H Calcium Level 8.4 MG/DL (8.5-10.1) L Phosphorus Level 2.6 MG/DL (2.5-4.9) Magnesium Level 1.7 MG/DL (1.8-2.4) L Total Bilirubin 0.3 MG/DL (0.2-1.0) Aspartate Amino Transf (AST/SGOT) 20 U/L (15-37) Alanine Aminotransferase (ALT/SGPT) 16 U/L (12-78) Alkaline Phosphatase 131 U/L (46-116) H C-Reactive Protein, Quantitative 32.6 mg/dL (0.00-0.90) H Total Protein 7.3 G/DL (6.4-8.2) Albumin 1.6 G/DL (3.4-5.0) L Globulin 5.7 g/dL Albumin/Globulin Ratio 0.3 (1.0-2.7) L Lipase 607 U/L (73-393) H Test 09/29/20 05:23 POC Whole Blood Glucose 173 MG/DL (74-106) H Current Medications Medications (Trade) Dose Ordered Sig/Debi Route PRN Reason Start Time Stop Time Status Last Admin Dose Admin Acetaminophen (Tylenol) 650 mg Q4H PRN ORAL fever 09/25/20 00:15 10/25/20 00:14 09/28/20 09:47 Albuterol/ Ipratropium (Albuterol/ Ipratropium) 3 ml Q4HRT PRN HHN Shortness of Breath 09/25/20 00:15 09/30/20 00:14 Chlorhexidine Gluconate (Jazmin-Hex 2%) 1 applic DAILY@1999 TOPIC 09/26/20 20:00 12/25/20 19:59 09/28/20 19:50 Dextrose (Dextrose 50%) 25 ml Q30M PRN IV Hypoglycemia 09/25/20 15:30 12/24/20 15:29 Dextrose (Dextrose 50%) 50 ml Q30M PRN IV Hypoglycemia 09/25/20 15:30 12/24/20 15:29 Ertapenem 1 gm/ Sodium Chloride 55 ml @ 110 mls/hr Q24H IV 09/26/20 12:00 09/30/20 11:59 UNV 09/28/20 12:21 Heparin Sodium (Porcine) (Heparin 5000 units/ml) 5,000 units EVERY 12 HOURS SUBQ 09/25/20 09:00 11/09/20 08:59 09/28/20 19:51 Insulin Aspart (NovoLOG) BEFORE MEALS AND HS SUBQ 09/25/20 16:30 12/24/20 16:29 09/29/20 05:42 Linezolid 300 ml @ 300 mls/hr Q12HR IVPB 09/25/20 21:00 10/02/20 20:59 09/28/20 19:50 Lorazepam (Ativan 2mg/ml 1ml) 2 mg Q2H PRN IV For Anxiety 09/25/20 00:15 10/02/20 00:14 Morphine Sulfate (Morphine Sulfate) 4 mg Q4H PRN IVP Severe Pain (Pain Scale 7-10) 09/25/20 00:15 10/02/20 00:14 Ondansetron HCl (Zofran) 4 mg Q6H PRN IVP Nausea & Vomiting 09/25/20 00:15 10/25/20 00:14 Pantoprazole (Protonix) 40 mg Q12HR IVP 09/25/20 21:00 10/25/20 08:59 09/28/20 19:50 Polyethylene Glycol (Miralax) 17 gm DAILYPRN PRN ORAL Constipation 09/25/20 00:15 10/25/20 00:14 Marixa Oliva M.D. Sep 29, 2020 08:24
[2020-09-29] MEDS: Heparin 5000 units/ml inj SUBQ SCH ×2 (08:56→20:18)
[2020-09-29] MEDS: Pantoprazole Inj IVP SCH ×2 (08:56→20:16)
--- NOTE | 2020-09-29 10:13 | Pulmonolgy Critical Care Note ---
Critical Care - Asmt/Plan Problems: (1) Acute respiratory failure (2) Severe sepsis (3) Diabetes mellitus (4) Severe protein-calorie malnutrition (5) History of hypertension (6) History of CVA (cerebrovascular accident) (7) Parkinson disease (8) Feeding by G-tube Respiratory: monitor respiratory rate, adjust FIO2, CXR Cardiac: continue to monitor HR/BP Renal: F/U I&O, keep IV fluid, check electrolytes Infectious Disease: check cultures Gastrointestinal: continue feedings/current rate Endocrine: monitor blood sugar, continue sliding scale insulin Hematologic: transfuse if hgb<8.5 Neurologic: PRN Ativan, PRN Morphine, keep patient comfortable Disposition: keep in ICU 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, 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, 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 Discussed with: consultants, field case managerfield case manager - Objective Last 24 Hour Vital Signs Date Time Temp Pulse Resp B/P (MAP) Pulse Ox O2 Delivery O2 Flow Rate FiO2 09/29/20 08:00 103 09/29/20 08:00 40 09/29/20 08:00 Mechanical Ventilator 09/29/20 08:00 98.9 97 22 119/68 (85) 100 09/29/20 07:00 95 20 112/68 (83) 100 09/29/20 06:00 97 18 125/75 (92) 100 09/29/20 05:00 101 20 117/85 (96) 100 09/29/20 04:00 40 09/29/20 04:00 95 09/29/20 04:00 99.9 98 19 120/75 (90) 100 09/29/20 04:00 Mechanical Ventilator 09/29/20 03:07 100 17 40 09/29/20 03:00 105 16 121/64 (83) 100 09/29/20 02:00 106 16 115/65 (82) 100 09/29/20 01:00 91 16 127/53 (77) 100 09/29/20 00:00 101.5 97 16 132/58 (82) 100 09/29/20 00:00 Mechanical Ventilator 09/29/20 00:00 99 09/28/20 23:00 93 16 134/61 (85) 100 09/28/20 22:48 93 16 40 09/28/20 22:00 96 16 131/59 (83) 100 09/28/20 21:00 100 17 137/59 (85) 100 09/28/20 20:00 40 09/28/20 20:00 Mechanical Ventilator 09/28/20 20:00 99.7 98 16 127/58 (81) 100 09/28/20 20:00 97 09/28/20 19:34 99 18 40 09/28/20 19:00 94 16 116/60 (78) 100 09/28/20 18:00 98 16 119/67 (84) 100 09/28/20 17:00 109 21 139/77 (97) 100 09/28/20 16:00 98.5 09/28/20 16:00 40.0 09/28/20 16:00 Mechanical Ventilator 09/28/20 16:00 101 09/28/20 16:00 98 16 116/58 (77) 100 09/28/20 15:00 102 16 129/61 (83) 100 09/28/20 14:33 104 17 40 09/28/20 14:00 103 16 131/60 (83) 100 09/28/20 13:00 105 20 141/59 (86) 100 09/28/20 12:00 40.0 09/28/20 12:00 103 09/28/20 12:00 98.9 98 16 122/61 (81) 100 09/28/20 12:00 Mechanical Ventilator 09/28/20 11:09 103 16 40 09/28/20 11:00 103 16 102/56 (71) 100 09/28/20 10:28 98.7 Status: sedated Condition: critical Neck: full ROM Heart: HR/BP stable, HR/BP unstable Abdomen: soft, active bowel sounds Extremities: no C/C/E Micro: Microbiology Date/Time Source Procedure Growth Status 09/28/20 15:10 Sputum Gram Stain Pending Resulted 09/28/20 15:10 Sputum Sputum Culture - Preliminary NO GROWTH Resulted 09/28/20 00:30 Stool Clostridium difficile Toxin Assay - Final Complete 09/26/20 12:20 Blood Blood Culture - Preliminary NO GROWTH AFTER 48 HOURS Resulted Accucheck: 173 Critical Care - Subjective FI02: 40 Vent Support Breath Rate: 16 Vent Support Mode: AC Vent Tidal Volume: 600 Sputum Amount: Small PEEP: 0.0 PIP: 25 Tube Feeding Amount: 75 I&O: Intake and Output 09/28/20 09/29/20 19:00 07:00 Intake Total 1905 ml 1400 ml Output Total 1600 ml 1200 ml Balance 305 ml 200 ml IV Total 1005 ml 500 ml Tube Feeding 900 ml 900 ml Output Urine Total 1600 ml 1200 ml CXR: cxr is clear, ET in good position ET-Tube: 7.0 ET Position: 23 Labs: Laboratory Tests Test 09/28/20 16:52 09/28/20 20:08 09/29/20 04:00 09/29/20 05:23 POC Whole Blood Glucose 270 MG/DL (74-106) H Pending 173 MG/DL (74-106) H White Blood Count 10.0 K/UL (4.8-10.8) Red Blood Count 3.41 M/UL (4.70-6.10) L Hemoglobin 9.2 G/DL (14.2-18.0) L Hematocrit 27.7 % (42.0-52.0) L Mean Corpuscular Volume 81 FL (80-99) Mean Corpuscular Hemoglobin 26.9 PG (27.0-31.0) L Mean Corpuscular Hemoglobin Concent 33.2 G/DL (32.0-36.0) Red Cell Distribution Width 15.5 % (11.6-14.8) H Platelet Count 137 K/UL (150-450) L Mean Platelet Volume 13.1 FL (6.5-10.1) H Neutrophils (%) (Auto) 72.0 % (45.0-75.0) Lymphocytes (%) (Auto) 20.7 % (20.0-45.0) Monocytes (%) (Auto) 5.0 % (1.0-10.0) Eosinophils (%) (Auto) 1.7 % (0.0-3.0) Basophils (%) (Auto) 0.6 % (0.0-2.0) Sodium Level 148 MMOL/L (136-145) H Potassium Level 3.0 MMOL/L (3.5-5.1) L Chloride Level 115 MMOL/L (98-107) H Carbon Dioxide Level 25 MMOL/L (21-32) Anion Gap 8 mmol/L (5-15) Blood Urea Nitrogen 15 mg/dL (7-18) Creatinine 1.3 MG/DL (0.55-1.30) Estimat Glomerular Filtration Rate > 60 mL/min (>60) Glucose Level 186 MG/DL (74-106) H Calcium Level 8.4 MG/DL (8.5-10.1) L Phosphorus Level 2.6 MG/DL (2.5-4.9) Magnesium Level 1.7 MG/DL (1.8-2.4) L Total Bilirubin 0.3 MG/DL (0.2-1.0) Aspartate Amino Transf (AST/SGOT) 20 U/L (15-37) Alanine Aminotransferase (ALT/SGPT) 16 U/L (12-78) Alkaline Phosphatase 131 U/L (46-116) H C-Reactive Protein, Quantitative 32.6 mg/dL (0.00-0.90) H Total Protein 7.3 G/DL (6.4-8.2) Albumin 1.6 G/DL (3.4-5.0) L Globulin 5.7 g/dL Albumin/Globulin Ratio 0.3 (1.0-2.7) L Lipase 607 U/L (73-393) H Latanya Mckeon MD Sep 29, 2020 10:13
[2020-09-29] MEDS: Ertapenem 1 GM in NS 55 ML IV SCH (11:34)
--- NOTE | 2020-09-29 14:45 | Nephrology Progress Note ---
Assessment/Plan Problem List: (1) KELLY (acute kidney injury) (2) Dehydration (3) Hypernatremia (4) Severe sepsis (5) History of CVA (cerebrovascular accident) (6) Parkinson disease (7) Acute respiratory failure (8) Elevated lipase Assessment KELLY, Hypernatremia, dehydration, free water deficit Sepsis Acute respiratory failure requiring intubation and mechanical ventilation Diabetes mellitus [id number] GT feeding History of CVA History of hypertension Parkinson's disease Elevated lipase Plan September 29: Labs reviewed. Serum creatinine down to 1.3 and electrolytes reviewed. Abnormal electrolytes addressed. Continue per consultants. September 28: Labs reviewed. Creatinine 1.6 unchanged. Hypernatremia persists. Will give 1 L of D5W. Continue to monitor renal parameters and electrolytes. Continue per consultants. September 27: Labs reviewed. Serum sodium lowering. Serum creatinine lowering. Blood sugar somewhat better controlled. Patient continues to be on free water through tube feeding. Continue to monitor renal parameters and electrolytes. Abnormal electrolytes addressed. September 26: IV fluids stopped. Patient receiving free water reviewed NG tube. Patient full code. Intubated on ventilator. Discussed with JOHNNY Christensen. Continue to monitor renal parameters. Serum creatinine lower but abnormal electrolyte persists and was addressed. Previously: IV fluid half-normal saline 125 cc an hour Albumin fluid challenge Monitor electrolytes Monitor renal parameters Hold blood pressure medication since blood pressure low Per orders, per consultants Subjective ROS Limited/Unobtainable: Yes Objective Objective Last 24 Hour Vital Signs Date Time Temp Pulse Resp B/P (MAP) Pulse Ox O2 Delivery O2 Flow Rate FiO2 09/29/20 14:00 101 20 105/69 (81) 100 09/29/20 13:00 99.5 107 22 108/70 (83) 100 09/29/20 12:00 40 09/29/20 12:00 94 09/29/20 12:00 96 16 93/54 (67) 100 09/29/20 11:58 88 16 40 09/29/20 11:00 82 16 99/57 (71) 100 09/29/20 10:00 87 20 114/69 (84) 100 09/29/20 09:13 102 24 40 09/29/20 09:00 103 24 111/73 (86) 100 09/29/20 08:00 103 09/29/20 08:00 40 09/29/20 08:00 Mechanical Ventilator 09/29/20 08:00 98.9 97 22 119/68 (85) 100 09/29/20 07:24 95 20 40 09/29/20 07:00 95 20 112/68 (83) 100 09/29/20 06:00 97 18 125/75 (92) 100 09/29/20 05:00 101 20 117/85 (96) 100 09/29/20 04:00 40 09/29/20 04:00 95 09/29/20 04:00 99.9 98 19 120/75 (90) 100 09/29/20 04:00 Mechanical Ventilator 09/29/20 03:07 100 17 40 09/29/20 03:00 105 16 121/64 (83) 100 09/29/20 02:00 106 16 115/65 (82) 100 09/29/20 01:00 91 16 127/53 (77) 100 09/29/20 00:00 101.5 97 16 132/58 (82) 100 09/29/20 00:00 Mechanical Ventilator 09/29/20 00:00 99 09/28/20 23:00 93 16 134/61 (85) 100 09/28/20 22:48 93 16 40 09/28/20 22:00 96 16 131/59 (83) 100 09/28/20 21:00 100 17 137/59 (85) 100 09/28/20 20:00 40 09/28/20 20:00 Mechanical Ventilator 09/28/20 20:00 99.7 98 16 127/58 (81) 100 09/28/20 20:00 97 09/28/20 19:34 99 18 40 09/28/20 19:00 94 16 116/60 (78) 100 09/28/20 18:00 98 16 119/67 (84) 100 09/28/20 17:00 109 21 139/77 (97) 100 09/28/20 16:00 98.5 09/28/20 16:00 40.0 09/28/20 16:00 Mechanical Ventilator 09/28/20 16:00 101 09/28/20 16:00 98 16 116/58 (77) 100 09/28/20 15:00 102 16 129/61 (83) 100 Intake and Output 09/28/20 09/29/20 19:00 07:00 Intake Total 1905 ml 1400 ml Output Total 1600 ml 1200 ml Balance 305 ml 200 ml IV Total 1005 ml 500 ml Tube Feeding 900 ml 900 ml Output Urine Total 1600 ml 1200 ml Laboratory Tests 09/28/20 16:52: POC Whole Blood Glucose 270H 09/28/20 20:08: POC Whole Blood Glucose [Pending] 09/29/20 04:00: White Blood Count 10.0, Red Blood Count 3.41L, Hemoglobin 9.2L, Hematocrit 27.7L , Mean Corpuscular Volume 81, Mean Corpuscular Hemoglobin 26.9L, Mean Corpuscular Hemoglobin Concent 33.2, Red Cell Distribution Width 15.5H, Platelet Count 137L, Mean Platelet Volume 13.1H, Neutrophils (%) (Auto) 72.0, Lymphocytes (%) (Auto) 20.7, Monocytes (%) (Auto) 5.0, Eosinophils (%) (Auto) 1.7, Basophils (%) (Auto) 0.6, Sodium Level 148H, Potassium Level 3.0L, Chloride Level 115H, Carbon Dioxide Level 25, Anion Gap 8, Blood Urea Nitrogen 15, Creatinine 1.3, Estimat Glomerular Filtration Rate > 60, Glucose Level 186H, Calcium Level 8.4L, Phosphorus Level 2.6, Magnesium Level 1.7L, Total Bilirubin 0.3, Aspartate Amino Transf (AST/SGOT) 20, Alanine Aminotransferase (ALT/SGPT) 16, Alkaline Phosphatase 131H, C-Reactive Protein, Quantitative 32.6H, Total Protein 7.3, Albumin 1.6L, Globulin 5.7, Albumin/Globulin Ratio 0.3L, Lipase 607H 09/29/20 05:23: POC Whole Blood Glucose 173H Height (Feet): 5 Height (Inches): 10.00 Weight (Pounds): 180 General Appearance: no apparent distress EENT: other - Intubated on ventilator Cardiovascular: tachycardia Respiratory/Chest: decreased breath sounds Eddie Nelson MD Sep 29, 2020 14:45
--- NOTE | 2020-09-29 14:46 | Internal Med Progress Note ---
Subjective Physician Name Cirilo Rome Attending Physician Cirilo Rome MD Current Medications Medications (Trade) Dose Ordered Sig/Debi Route PRN Reason Start Time Stop Time Status Last Admin Dose Admin Acetaminophen (Tylenol) 650 mg Q4H PRN ORAL fever 09/25/20 00:15 10/25/20 00:14 09/28/20 09:47 Albuterol/ Ipratropium (Albuterol/ Ipratropium) 3 ml Q4HRT PRN HHN Shortness of Breath 09/25/20 00:15 09/30/20 00:14 Chlorhexidine Gluconate (Jazmin-Hex 2%) 1 applic DAILY@2000 TOPIC 09/26/20 20:00 12/25/20 19:59 09/28/20 19:50 Dextrose (Dextrose 50%) 25 ml Q30M PRN IV Hypoglycemia 09/25/20 15:30 12/24/20 15:29 Dextrose (Dextrose 50%) 50 ml Q30M PRN IV Hypoglycemia 09/25/20 15:30 12/24/20 15:29 Ertapenem 1 gm/ Sodium Chloride 55 ml @ 110 mls/hr Q24H IV 09/26/20 12:00 10/04/20 11:59 09/29/20 11:34 Heparin Sodium (Porcine) (Heparin 5000 units/ml) 5,000 units EVERY 12 HOURS SUBQ 09/25/20 09:00 11/09/20 08:59 09/28/20 19:51 Insulin Aspart (NovoLOG) BEFORE MEALS AND HS SUBQ 09/25/20 16:30 12/24/20 16:29 09/29/20 13:14 Linezolid 300 ml @ 300 mls/hr Q12HR IVPB 09/25/20 21:00 10/02/20 20:59 09/29/20 08:56 Lorazepam (Ativan 2mg/ml 1ml) 2 mg Q2H PRN IV For Anxiety 09/25/20 00:15 10/02/20 00:14 Morphine Sulfate (Morphine Sulfate) 4 mg Q4H PRN IVP Severe Pain (Pain Scale 7-10) 09/25/20 00:15 10/02/20 00:14 Ondansetron HCl (Zofran) 4 mg Q6H PRN IVP Nausea & Vomiting 09/25/20 00:15 10/25/20 00:14 Pantoprazole (Protonix) 40 mg Q12HR IVP 09/25/20 21:00 10/25/20 08:59 09/29/20 08:56 Polyethylene Glycol (Miralax) 17 gm DAILYPRN PRN ORAL Constipation 09/25/20 00:15 10/25/20 00:14 Allergies: Coded Allergies: No Known Allergies (Unverified , 08/27/19) Subjective in ICU, intubated, remained on ventil, open his eyes, however cannot follow-up with commands, WBC: 10.0, sputum culture: Gram-negative bacilli Objective Last Vital Signs Date Time Temp Pulse Resp B/P (MAP) Pulse Ox O2 Delivery O2 Flow Rate FiO2 09/29/20 14:00 101 20 105/69 (81) 100 09/29/20 13:00 99.5 09/29/20 12:00 40 09/29/20 08:00 Mechanical Ventilator 09/28/20 16:00 40.0 Laboratory Tests Test 09/28/20 16:52 09/28/20 20:08 09/29/20 04:00 09/29/20 05:23 POC Whole Blood Glucose 270 MG/DL (74-106) H Pending 173 MG/DL (74-106) H White Blood Count 10.0 K/UL (4.8-10.8) Red Blood Count 3.41 M/UL (4.70-6.10) L Hemoglobin 9.2 G/DL (14.2-18.0) L Hematocrit 27.7 % (42.0-52.0) L Mean Corpuscular Volume 81 FL (80-99) Mean Corpuscular Hemoglobin 26.9 PG (27.0-31.0) L Mean Corpuscular Hemoglobin Concent 33.2 G/DL (32.0-36.0) Red Cell Distribution Width 15.5 % (11.6-14.8) H Platelet Count 137 K/UL (150-450) L Mean Platelet Volume 13.1 FL (6.5-10.1) H Neutrophils (%) (Auto) 72.0 % (45.0-75.0) Lymphocytes (%) (Auto) 20.7 % (20.0-45.0) Monocytes (%) (Auto) 5.0 % (1.0-10.0) Eosinophils (%) (Auto) 1.7 % (0.0-3.0) Basophils (%) (Auto) 0.6 % (0.0-2.0) Sodium Level 148 MMOL/L (136-145) H Potassium Level 3.0 MMOL/L (3.5-5.1) L Chloride Level 115 MMOL/L (98-107) H Carbon Dioxide Level 25 MMOL/L (21-32) Anion Gap 8 mmol/L (5-15) Blood Urea Nitrogen 15 mg/dL (7-18) Creatinine 1.3 MG/DL (0.55-1.30) Estimat Glomerular Filtration Rate > 60 mL/min (>60) Glucose Level 186 MG/DL (74-106) H Calcium Level 8.4 MG/DL (8.5-10.1) L Phosphorus Level 2.6 MG/DL (2.5-4.9) Magnesium Level 1.7 MG/DL (1.8-2.4) L Total Bilirubin 0.3 MG/DL (0.2-1.0) Aspartate Amino Transf (AST/SGOT) 20 U/L (15-37) Alanine Aminotransferase (ALT/SGPT) 16 U/L (12-78) Alkaline Phosphatase 131 U/L (46-116) H C-Reactive Protein, Quantitative 32.6 mg/dL (0.00-0.90) H Total Protein 7.3 G/DL (6.4-8.2) Albumin 1.6 G/DL (3.4-5.0) L Globulin 5.7 g/dL Albumin/Globulin Ratio 0.3 (1.0-2.7) L Lipase 607 U/L (73-393) H Microbiology Date/Time Source Procedure Growth Status 09/28/20 15:10 Sputum Gram Stain - Final Resulted 09/28/20 15:10 Sputum Sputum Culture - Preliminary NO GROWTH Resulted 09/28/20 00:30 Stool Clostridium difficile Toxin Assay - Final Complete Intake and Output 09/28/20 09/29/20 19:00 07:00 Intake Total 1905 ml 1400 ml Output Total 1600 ml 1200 ml Balance 305 ml 200 ml IV Total 1005 ml 500 ml Tube Feeding 900 ml 900 ml Output Urine Total 1600 ml 1200 ml Objective PHYSICAL EXAMINATION: GENERAL: intubated, open his eyes, tracking,. HEENT: Eyes, pupils are equal responsive to light and accommodation. ET tube. NECK: Supple No JVD CHEST: mechanical breath sound, decreased air at bases, no wheezes. CARDIOVASCULAR: Regular rate. S1 and S2 normal without murmurs, ABDOMEN: Soft, nontender, and nondistended. Positive bowel sounds. PEG site intact. EXTREMITIES: Negative for clubbing, cyanosis, or edema. RECTAL/GENITAL: Not performed. NEUROLOGIC: Unable to assess due to patient's status, unable to follow command. Assessment/Plan Assessment/Plan ASSESSMENT: This is a 80-year-old male. 1. Acute hypoxemic Respiratory failure. 2. Bilateral pneumonia. 3. Hypertension. 4. Diabetes type 2. 5. Hypercholesterolemia. 6. Parkinson disease. 7. COVID-19 negative. 8. Ulcerative proctitis. 9. Benign prostatic hypertrophy. 10. Gastroesophageal reflux disease. 11. Urinary tract infection=proteus mirabilis 12. Sepsis=coag neg staph TREATMENT: 1. Pneumonia/respiratory failure. Infectious diseases = Drs. Harris/Pj. A Pulmonary/Critical care= Dr. Latanya Mckeon. The patient is currently intubated on the mechanical ventilator in the intensive care unit. ABX= vancomycin, amikacin, and ertapenem. Follow recommendation of Infectious Diseases. Await sputumcultures. 2. Urinary tract infection. ABX= Ertapenem and linezolid. An Infectious Disease consultation has been obtained with Dr. Harris. 3. Hypertension. The patient is currently hypotensive. 4. Diabetes type 2. NovoLog sliding scale has been instituted. 5. Hypercholesterolemia. Continue simvastatin as above. 6. Parkinson disease. 7. Ulcerative proctitis. 8. Benign prostatic hypertrophy. 9. Gastroesophageal reflux disease. 10. Dysphagia. PEG placement. Cirilo Rmoe MD Sep 29, 2020 14:46
--- NOTE | 2020-09-29 15:57 | Surgery Progress Note ---
Surgery Progress Note Subjective Additional Comments ill appearing on support no n/v Objective Last 24 Hour Vital Signs Date Time Temp Pulse Resp B/P (MAP) Pulse Ox O2 Delivery O2 Flow Rate FiO2 09/29/20 15:00 100 21 116/72 (87) 100 09/29/20 14:00 101 20 105/69 (81) 100 09/29/20 13:00 99.5 107 22 108/70 (83) 100 09/29/20 12:00 40 09/29/20 12:00 94 09/29/20 12:00 96 16 93/54 (67) 100 09/29/20 12:00 Mechanical Ventilator 09/29/20 11:58 88 16 40 09/29/20 11:00 82 16 99/57 (71) 100 09/29/20 10:00 87 20 114/69 (84) 100 09/29/20 09:13 102 24 40 09/29/20 09:00 103 24 111/73 (86) 100 09/29/20 08:00 103 09/29/20 08:00 40 09/29/20 08:00 Mechanical Ventilator 09/29/20 08:00 98.9 97 22 119/68 (85) 100 09/29/20 07:24 95 20 40 09/29/20 07:00 95 20 112/68 (83) 100 09/29/20 06:00 97 18 125/75 (92) 100 09/29/20 05:00 101 20 117/85 (96) 100 09/29/20 04:00 40 09/29/20 04:00 95 09/29/20 04:00 99.9 98 19 120/75 (90) 100 09/29/20 04:00 Mechanical Ventilator 09/29/20 03:07 100 17 40 09/29/20 03:00 105 16 121/64 (83) 100 09/29/20 02:00 106 16 115/65 (82) 100 09/29/20 01:00 91 16 127/53 (77) 100 09/29/20 00:00 101.5 97 16 132/58 (82) 100 09/29/20 00:00 Mechanical Ventilator 09/29/20 00:00 99 09/28/20 23:00 93 16 134/61 (85) 100 09/28/20 22:48 93 16 40 09/28/20 22:00 96 16 131/59 (83) 100 09/28/20 21:00 100 17 137/59 (85) 100 09/28/20 20:00 40 09/28/20 20:00 Mechanical Ventilator 09/28/20 20:00 99.7 98 16 127/58 (81) 100 09/28/20 20:00 97 09/28/20 19:34 99 18 40 09/28/20 19:00 94 16 116/60 (78) 100 09/28/20 18:00 98 16 119/67 (84) 100 09/28/20 17:00 109 21 139/77 (97) 100 09/28/20 16:00 98.5 09/28/20 16:00 40.0 09/28/20 16:00 Mechanical Ventilator 09/28/20 16:00 101 09/28/20 16:00 98 16 116/58 (77) 100 I&O Intake and Output 09/28/20 09/29/20 19:00 07:00 Intake Total 1905 ml 1400 ml Output Total 1600 ml 1200 ml Balance 305 ml 200 ml IV Total 1005 ml 500 ml Tube Feeding 900 ml 900 ml Output Urine Total 1600 ml 1200 ml Dressing: saturated Cardiovascular: RSR Respiratory: decreased breath sounds Abdomen: non-tender, present bowel sounds Extremities: no tenderness, no cyanosis Laboratory Tests Test 09/28/20 16:52 09/28/20 20:08 09/29/20 04:00 09/29/20 05:23 POC Whole Blood Glucose 270 MG/DL (74-106) H Pending 173 MG/DL (74-106) H White Blood Count 10.0 K/UL (4.8-10.8) Red Blood Count 3.41 M/UL (4.70-6.10) L Hemoglobin 9.2 G/DL (14.2-18.0) L Hematocrit 27.7 % (42.0-52.0) L Mean Corpuscular Volume 81 FL (80-99) Mean Corpuscular Hemoglobin 26.9 PG (27.0-31.0) L Mean Corpuscular Hemoglobin Concent 33.2 G/DL (32.0-36.0) Red Cell Distribution Width 15.5 % (11.6-14.8) H Platelet Count 137 K/UL (150-450) L Mean Platelet Volume 13.1 FL (6.5-10.1) H Neutrophils (%) (Auto) 72.0 % (45.0-75.0) Lymphocytes (%) (Auto) 20.7 % (20.0-45.0) Monocytes (%) (Auto) 5.0 % (1.0-10.0) Eosinophils (%) (Auto) 1.7 % (0.0-3.0) Basophils (%) (Auto) 0.6 % (0.0-2.0) Sodium Level 148 MMOL/L (136-145) H Potassium Level 3.0 MMOL/L (3.5-5.1) L Chloride Level 115 MMOL/L (98-107) H Carbon Dioxide Level 25 MMOL/L (21-32) Anion Gap 8 mmol/L (5-15) Blood Urea Nitrogen 15 mg/dL (7-18) Creatinine 1.3 MG/DL (0.55-1.30) Estimat Glomerular Filtration Rate > 60 mL/min (>60) Glucose Level 186 MG/DL (74-106) H Calcium Level 8.4 MG/DL (8.5-10.1) L Phosphorus Level 2.6 MG/DL (2.5-4.9) Magnesium Level 1.7 MG/DL (1.8-2.4) L Total Bilirubin 0.3 MG/DL (0.2-1.0) Aspartate Amino Transf (AST/SGOT) 20 U/L (15-37) Alanine Aminotransferase (ALT/SGPT) 16 U/L (12-78) Alkaline Phosphatase 131 U/L (46-116) H C-Reactive Protein, Quantitative 32.6 mg/dL (0.00-0.90) H Total Protein 7.3 G/DL (6.4-8.2) Albumin 1.6 G/DL (3.4-5.0) L Globulin 5.7 g/dL Albumin/Globulin Ratio 0.3 (1.0-2.7) L Lipase 607 U/L (73-393) H Plan Problems: (1) Hypoxia (2) Severe sepsis Assessment & Plan: leukocytosis lactic acidosis anemia renal insufficiency on support in ICU dressings changed and care plan initiated cont abx trend labs if fluids am imaging ordered Non-Blanchable erythema noted to R and L earlobes. Erythematous, scaly pimple- like rash,some of which are scaly and others small papules noted to R and L axillae, upper R and L chest and back ,R and L groin areas. Pt observed to persistently scratch affected areas described. Incontinence Associated Dermatitis Buttocks, R and L Ischial tuberosities are erythematous,denuded with shearing and scattered satellite lesions. Per staff pt frequently removes or dislodges Condom cath. R Heel is boggy with non-blanchable erythema. L Heel is boggy with Non-Blanchable erythema. Pt presented on admission with Multiple Pressure Injuries. Sacral DTPI which extends into R and L Gluteal cheeks and is partially opened upper R gluteus (L)14cm x (W)15cm. DTPI noted within hypertrophic scar from previous Pressure injury. Base of wound is purpuric at rm cleft ,and indurated. Non-Blanchable erythema with additional shearing periwound. An area of induration with darker skin tone noted to L Ischium. Darker skin tone without induration R Ischium. Scrotum is erythematous and swollen. DTPI L Heel and Plantar L Heel(L)4cm x (W)3.5cm. Base of Pressure Injury roca colored Blister with darker center. Periwound is fluctuant with non-Blanchable erythema. DTPI R Heel (L)2.7cm x (W)4cm. Non-Blanchable erythema without induration/fluctuance R Hallux. Non-Blanchable erythema without induration/fluctuance L Hallux. Tx.Plan:Apply Cavilon Skin Barrier to both R and L ears.(Pad Oxygen Tubing as Needed.) Apply Moisture Barrier Paste to bilat groin and bilat ischial tuberosities with eqach Incontinence care. Apply Cavilon Skin Barrier to both heels. Cover each heel with Optifoam drsg. Change every 7 days and prn. Cleanse Sacral wound with Saline. Apply Therahoney. Apply Moisture Barrier Paste periwound. Cover with Optifoam drsg. Change every 3 days and prn. Apply Moisture Barrier Paste to Scrotum,R and L ischial tuberosities with each incontinence care. Apply Cavilon Skin Barrier to R and L Hallux. Cover each site with Optifoam drsgs. Change every 7 days and prn. Reposition at least every 2hours or as tolerated. Off-load heels with pillow. APM/ALEK Mattress overlay improving cont current care tube site okay DAILY ESTIMATED NEEDS: Needs based on Critical care, DM, Wound/ 53kg 22-30 kcals/kg 3104-4565 total kcals 1.25-2 g protein/kg 66-106 g total protein 25-30 mL/kg [address] total fluid mLs NUTRITION DIAGNOSIS: * Swallowing difficulty R/T dysphagia as evidenced by Pt is GT dep, currently orally intubated, on pressor support, NPO. CURRENT TF:NPO ENTERAL NUTRITION RECOMMENDATIONS: Glucerna 1.2 @ 55ml/hr x 24 hrs to provide 1320ml, 1584kcal, 79g prot, 1063ml free water * As medically appropriate and with hemodynamic stability -> initiate Glucerna 1.2 @ 25ml/hr x 6hrs, advance 10ml q 4-6 hrs as tolerated to goal rate * HOB over 30 degrees * H2O flush of 100ml q 6hrs --------- Without hemodynamic stability, rec trophic feeding of Glucerna 1.2 @ 10-1 5ml/hr ADDITIONAL RECOMMENDATIONS: * Per SNF: HT=5'7" WT= 138lbs (as of Sep 13, 2020) * Monitor hemodyanmic stability: NE @ 8mcg * Wound healing: TF rec @ goal provides 100% RDI add Vit C 500mg QD + Terrance BID via TF * Monitor lytes, replete as needed (low K) * Monitor BGs, consider long acting insulin w/ TF Monitor closely for hypoglycemia while NPO (3) Dehydration (4) Hypernatremia (5) Clostridium difficile colitis (6) Staphylococcus aureus bacteremia (7) Hip fracture, left (8) Diabetes mellitus (9) History of hypertension (10) Severe protein-calorie malnutrition (11) Acute encephalopathy (12) Pressure Ulcer Of Sacral Region, Unstageable (13) Feeding by G-tube (14) Abdominal distention (15) Multiple drug resistant organism (MDRO) culture positive (16) Sepsis (17) History of CVA (cerebrovascular accident) (18) Parkinson disease James Breen Sep 29, 2020 15:57
[2020-09-29] MEDS: Dyna-Hex 2% Top Sol 2oz TOPIC SCH (20:16)
[2020-09-30] VITALS (25 sets, daily range): BP systolic 91–124; BP diastolic 53–77
[2020-09-30 05:41] LABS: BASOPHILS % (AUTO) 0.9 % (0.0-2.0); EOSINOPHILS % (AUTO) 0.6 % (0.0-3.0); HEMATOCRIT 28.9 % (42.0-52.0); HEMOGLOBIN 9.5 G/DL (14.2-18.0); LYMPHOCYTES % (AUTO) 13.2 % (20.0-45.0); MEAN CORPUSCULAR VOLUME 82 FL (80-99); MONOCYTES % (AUTO) 6.1 % (1.0-10.0); NEUTROPHILS % (AUTO) 79.2 % (45.0-75.0); PLATELET COUNT 160 K/UL (150-450); RED BLOOD COUNT 3.54 M/UL (4.70-6.10); RED CELL DISTRIBUTION WIDTH 15.4 % (11.6-14.8); WHITE BLOOD COUNT 9.1 K/UL (4.8-10.8)
[2020-09-30 06:02] LABS: ALANINE AMINOTRANSFERASE 15 U/L (12-78); ALBUMIN 1.6 G/DL (3.4-5.0); ALBUMIN/GLOBULIN RATIO 0.3 (1.0-2.7); ALKALINE PHOSPHATASE 134 U/L (46-116); ANION GAP 15 mmol/L (5-15); ASPARTATE AMINO TRANSFERASE 18 U/L (15-37); BILIRUBIN,TOTAL 0.3 MG/DL (0.2-1.0); BLOOD UREA NITROGEN 14 mg/dL (7-18); CALCIUM 8.8 MG/DL (8.5-10.1); CARBON DIOXIDE 18 MMOL/L (21-32); CHLORIDE 111 MMOL/L (98-107); CREATININE 1.1 MG/DL (0.55-1.30); SODIUM 144 MMOL/L (136-145)
[2020-09-30] MEDS: NovoLOG Insulin Flexpen SUBQ SCH ×4 (06:27→20:19)
[2020-09-30] MEDS: Heparin 5000 units/ml inj SUBQ SCH ×2 (08:13→20:05)
[2020-09-30] MEDS: Pantoprazole Inj IVP SCH ×2 (08:13→20:05)
--- NOTE | 2020-09-30 08:54 | Infectious Diseases Prog Note ---
Assessment/Plan 80yo M with: GPC bacteremia 09/28 BCx +GPCs 09/30 BCx ordered Sepsis, septic shock GPC bacteremia UTI 2/2 ESBL P.mirabilis R/o aspiration pna Febrile to 105, improving Leukocytosis to 15, improving 09/24 BCx 2/2 CONS UA 20-30 WBC, UCx ESBL P.mirabilis COVID rapid test neg, PCR neg CXR: 1. Coarse bibasilar interstitial lung markings, may represent atypical infectious process such as viral pneumonia versus pulmonary edema. 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 [facility] will continue to follow. Subjective Allergies: Coded Allergies: No Known Allergies (Unverified , 08/27/19) AF WBC 9, improving NAD on vent BCx +GPCs from 09/28 Objective Last 24 Hour Vital Signs Date Time Temp Pulse Resp B/P (MAP) Pulse Ox O2 Delivery O2 Flow Rate FiO2 09/30/20 08:00 Mechanical Ventilator 09/30/20 08:00 97.2 99 22 117/76 (90) 100 09/30/20 08:00 40 09/30/20 07:10 101 24 40 09/30/20 07:00 97 20 121/62 (81) 100 09/30/20 06:00 98 20 119/60 (79) 100 09/30/20 05:00 94 18 109/60 (76) 100 09/30/20 04:00 100 25 111/72 (85) 100 09/30/20 04:00 100 09/30/20 04:00 Mechanical Ventilator 09/30/20 04:00 40 09/30/20 03:03 102 26 40 09/30/20 03:00 88 23 107/66 (80) 100 09/30/20 02:00 100 24 110/62 (78) 100 09/30/20 01:00 101 23 111/73 (86) 100 09/30/20 00:00 99 22 107/75 (86) 100 09/30/20 00:00 Mechanical Ventilator 09/29/20 23:00 105 23 108/69 (82) 100 09/29/20 22:50 95 21 40 09/29/20 22:00 105 23 111/70 (84) 100 09/29/20 21:00 117 25 126/52 (76) 100 09/29/20 20:00 119 26 118/71 (87) 100 09/29/20 20:00 105 09/29/20 20:00 40 09/29/20 20:00 Mechanical Ventilator 09/29/20 19:10 110 24 40 09/29/20 19:00 97 20 110/62 (78) 100 09/29/20 18:00 97 20 107/64 (78) 100 09/29/20 17:00 98.2 102 26 127/67 (87) 100 09/29/20 16:00 40 09/29/20 16:00 90 21 120/75 (90) 100 09/29/20 16:00 93 09/29/20 16:00 Mechanical Ventilator 09/29/20 15:05 101 23 40 09/29/20 15:00 100 21 116/72 (87) 100 09/29/20 14:00 101 20 105/69 (81) 100 09/29/20 13:00 99.5 107 22 108/70 (83) 100 09/29/20 12:00 40 09/29/20 12:00 94 09/29/20 12:00 96 16 93/54 (67) 100 09/29/20 12:00 Mechanical Ventilator 09/29/20 11:58 88 16 40 09/29/20 11:00 82 16 99/57 (71) 100 09/29/20 10:00 87 20 114/69 (84) 100 09/29/20 09:13 102 24 40 09/29/20 09:00 103 24 111/73 (86) 100 Height (Feet): 5 Height (Inches): 10.00 Weight (Pounds): 180 Gen: NAD HEENT: NCAT Pulm: BL chest rise Abd: Non-distended Ext: No c/c/e Skin: No visible rashes Neuro: Awake Lines: R fem CVC Microbiology Date/Time Source Procedure Growth Status 09/28/20 15:10 Sputum Gram Stain - Final Resulted 09/28/20 15:10 Sputum Culture - Preliminary Gram Negative Bacillus 1 Resulted 09/28/20 14:00 Blood Blood Culture - Preliminary NO GROWTH AFTER 24 HOURS Resulted 09/28/20 00:30 Stool Clostridium difficile Toxin Assay - Final Complete Laboratory Tests Test 09/30/20 04:45 White Blood Count 9.1 K/UL (4.8-10.8) Red Blood Count 3.54 M/UL (4.70-6.10) L Hemoglobin 9.5 G/DL (14.2-18.0) L Hematocrit 28.9 % (42.0-52.0) L Mean Corpuscular Volume 82 FL (80-99) Mean Corpuscular Hemoglobin 26.8 PG (27.0-31.0) L Mean Corpuscular Hemoglobin Concent 32.8 G/DL (32.0-36.0) Red Cell Distribution Width 15.4 % (11.6-14.8) H Platelet Count 160 K/UL (150-450) Mean Platelet Volume 10.9 FL (6.5-10.1) H Neutrophils (%) (Auto) 79.2 % (45.0-75.0) H Lymphocytes (%) (Auto) 13.2 % (20.0-45.0) L Monocytes (%) (Auto) 6.1 % (1.0-10.0) Eosinophils (%) (Auto) 0.6 % (0.0-3.0) Basophils (%) (Auto) 0.9 % (0.0-2.0) Sodium Level 144 MMOL/L (136-145) Potassium Level 4.0 MMOL/L (3.5-5.1) Chloride Level 111 MMOL/L (98-107) H Carbon Dioxide Level 18 MMOL/L (21-32) L Anion Gap 15 mmol/L (5-15) Blood Urea Nitrogen 14 mg/dL (7-18) Creatinine 1.1 MG/DL (0.55-1.30) Estimat Glomerular Filtration Rate > 60 mL/min (>60) Glucose Level 224 MG/DL (74-106) H Calcium Level 8.8 MG/DL (8.5-10.1) Total Bilirubin 0.3 MG/DL (0.2-1.0) Aspartate Amino Transf (AST/SGOT) 18 U/L (15-37) Alanine Aminotransferase (ALT/SGPT) 15 U/L (12-78) Alkaline Phosphatase 134 U/L (46-116) H Total Protein 7.4 G/DL (6.4-8.2) Albumin 1.6 G/DL (3.4-5.0) L Globulin 5.8 g/dL Albumin/Globulin Ratio 0.3 (1.0-2.7) L Current Medications Medications (Trade) Dose Ordered Sig/Debi Route PRN Reason Start Time Stop Time Status Last Admin Dose Admin Acetaminophen (Tylenol) 650 mg Q4H PRN ORAL fever 09/25/20 00:15 10/25/20 00:14 09/28/20 09:47 Chlorhexidine Gluconate (Jazmin-Hex 2%) 1 applic DAILY@2000 TOPIC 09/26/20 20:00 12/25/20 19:59 09/29/20 20:16 Dextrose (Dextrose 50%) 25 ml Q30M PRN IV Hypoglycemia 09/25/20 15:30 12/24/20 15:29 Dextrose (Dextrose 50%) 50 ml Q30M PRN IV Hypoglycemia 09/25/20 15:30 12/24/20 15:29 Ertapenem 1 gm/ Sodium Chloride 55 ml @ 110 mls/hr Q24H IV 09/26/20 12:00 10/04/20 11:59 09/29/20 11:34 Heparin Sodium (Porcine) (Heparin 5000 units/ml) 5,000 units EVERY 12 HOURS SUBQ 09/25/20 09:00 11/09/20 08:59 09/30/20 08:13 Insulin Aspart (NovoLOG) BEFORE MEALS AND HS SUBQ 09/25/20 16:30 12/24/20 16:29 09/30/20 06:27 Linezolid 300 ml @ 300 mls/hr Q12HR IVPB 09/25/20 21:00 10/02/20 20:59 09/30/20 08:13 Lorazepam (Ativan 2mg/ml 1ml) 2 mg Q2H PRN IV For Anxiety 09/25/20 00:15 10/02/20 00:14 Morphine Sulfate (Morphine Sulfate) 4 mg Q4H PRN IVP Severe Pain (Pain Scale 7-10) 09/25/20 00:15 10/02/20 00:14 Ondansetron HCl (Zofran) 4 mg Q6H PRN IVP Nausea & Vomiting 09/25/20 00:15 10/25/20 00:14 Pantoprazole (Protonix) 40 mg Q12HR IVP 09/25/20 21:00 10/25/20 08:59 09/30/20 08:13 Polyethylene Glycol (Miralax) 17 gm DAILYPRN PRN ORAL Constipation 09/25/20 00:15 10/25/20 00:14 Marixa Oliva M.D. Sep 30, 2020 08:53
[2020-09-30 09:17] LABS: PHOSPHORUS 3.3 MG/DL (2.5-4.9)
--- NOTE | 2020-09-30 10:52 | Pulmonolgy Critical Care Note ---
Critical Care - Asmt/Plan Problems: (1) Acute respiratory failure (2) Severe sepsis (3) Diabetes mellitus (4) Severe protein-calorie malnutrition (5) History of hypertension (6) History of CVA (cerebrovascular accident) (7) Parkinson disease (8) Feeding by G-tube Respiratory: monitor respiratory rate, adjust FIO2, CXR Cardiac: continue pressors, continue to monitor HR/BP Renal: F/U I&O, keep IV fluid, check electrolytes Gastrointestinal: continue feedings/current rate Endocrine: monitor blood sugar, continue sliding scale insulin Hematologic: monitor H/H, transfuse if hgb<8.5 Neurologic: keep patient comfortable Prophylaxis: Protonix, Heparin Disposition: keep in ICU Notes Reviewed: heel trimmer, cardio, renal Discussed with: nurses, consultants, 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 - Objective Last 24 Hour Vital Signs Date Time Temp Pulse Resp B/P (MAP) Pulse Ox O2 Delivery O2 Flow Rate FiO2 09/30/20 10:00 85 17 113/64 (80) 100 09/30/20 09:00 98 22 118/67 (84) 100 09/30/20 08:00 Mechanical Ventilator 09/30/20 08:00 97.2 99 22 117/76 (90) 100 09/30/20 08:00 40 09/30/20 07:10 101 24 40 09/30/20 07:00 97 20 121/62 (81) 100 09/30/20 06:00 98 20 119/60 (79) 100 09/30/20 05:00 94 18 109/60 (76) 100 09/30/20 04:00 100 25 111/72 (85) 100 09/30/20 04:00 100 09/30/20 04:00 Mechanical Ventilator 09/30/20 04:00 40 09/30/20 03:03 102 26 40 09/30/20 03:00 88 23 107/66 (80) 100 09/30/20 02:00 100 24 110/62 (78) 100 09/30/20 01:00 101 23 111/73 (86) 100 09/30/20 00:00 99 22 107/75 (86) 100 09/30/20 00:00 Mechanical Ventilator 09/29/20 23:00 105 23 108/69 (82) 100 09/29/20 22:50 95 21 40 12/17/20 22:00 105 23 111/70 (84) 100 09/29/20 21:00 117 25 126/52 (76) 100 09/29/20 20:00 119 26 118/71 (87) 100 09/29/20 20:00 105 09/29/20 20:00 40 09/29/20 20:00 Mechanical Ventilator 09/29/20 19:10 110 24 40 09/29/20 19:00 97 20 110/62 (78) 100 09/29/20 18:00 97 20 107/64 (78) 100 09/29/20 17:00 98.2 102 26 127/67 (87) 100 09/29/20 16:00 40 09/29/20 16:00 90 21 120/75 (90) 100 09/29/20 16:00 93 09/29/20 16:00 Mechanical Ventilator 09/29/20 15:05 101 23 40 09/29/20 15:00 100 21 116/72 (87) 100 09/29/20 14:00 101 20 105/69 (81) 100 09/29/20 13:00 99.5 107 22 108/70 (83) 100 09/29/20 12:00 40 09/29/20 12:00 94 09/29/20 12:00 96 16 93/54 (67) 100 09/29/20 12:00 Mechanical Ventilator 09/29/20 11:58 88 16 40 09/29/20 11:00 82 16 99/57 (71) 100 Status: sedated Condition: critical HEENT: atraumatic Neck: full ROM Lungs: clear Heart: HR/BP stable Abdomen: soft, non-tender Extremities: no C/C/E Micro: Microbiology Date/Time Source Procedure Growth Status 09/29/20 09:00 Nasopharynx Coronavirus COVID-19 PCR (EDDIE) - Final Complete 09/28/20 15:10 Sputum Gram Stain - Final Resulted 09/28/20 15:10 Sputum Culture - Preliminary Gram Negative Bacillus 1 Resulted 09/28/20 14:00 Blood Blood Culture - Preliminary NO GROWTH AFTER 24 HOURS Resulted 09/28/20 00:30 Stool Clostridium difficile Toxin Assay - Final Complete Accucheck: 196 Critical Care - Subjective ROS Limited/Unobtainable: Yes Condition: critical EKG Rhythm: Sinus Rhythm FI02: 40 Vent Support Breath Rate: 16 Vent Support Mode: AC Vent Tidal Volume: 600 Sputum Amount: Small PEEP: 0.0 PIP: 28 Tube Feeding Amount: 75 I&O: Intake and Output 09/29/20 09/30/20 19:00 07:00 Intake Total 1255 ml 900 ml Output Total 1425 ml 1500 ml Balance -170 ml -600 ml IV Total 355 ml Tube Feeding 900 ml 900 ml Output Urine Total 1425 ml 1500 ml CXR: increasing infiltrate at LLL ET-Tube: 7.0 ET Position: 23 Labs: Laboratory Tests Test 09/30/20 04:43 09/30/20 04:45 Phosphorus Level 3.3 MG/DL (2.5-4.9) Magnesium Level 2.1 MG/DL (1.8-2.4) White Blood Count 9.1 K/UL (4.8-10.8) Red Blood Count 3.54 M/UL (4.70-6.10) L Hemoglobin 9.5 G/DL (14.2-18.0) L Hematocrit 28.9 % (42.0-52.0) L Mean Corpuscular Volume 82 FL (80-99) Mean Corpuscular Hemoglobin 26.8 PG (27.0-31.0) L Mean Corpuscular Hemoglobin Concent 32.8 G/DL (32.0-36.0) Red Cell Distribution Width 15.4 % (11.6-14.8) H Platelet Count 160 K/UL (150-450) Mean Platelet Volume 10.9 FL (6.5-10.1) H Neutrophils (%) (Auto) 79.2 % (45.0-75.0) H Lymphocytes (%) (Auto) 13.2 % (20.0-45.0) L Monocytes (%) (Auto) 6.1 % (1.0-10.0) Eosinophils (%) (Auto) 0.6 % (0.0-3.0) Basophils (%) (Auto) 0.9 % (0.0-2.0) Sodium Level 144 MMOL/L (136-145) Potassium Level 4.0 MMOL/L (3.5-5.1) Chloride Level 111 MMOL/L (98-107) H Carbon Dioxide Level 18 MMOL/L (21-32) L Anion Gap 15 mmol/L (5-15) Blood Urea Nitrogen 14 mg/dL (7-18) Creatinine 1.1 MG/DL (0.55-1.30) Estimat Glomerular Filtration Rate > 60 mL/min (>60) Glucose Level 224 MG/DL (74-106) H Calcium Level 8.8 MG/DL (8.5-10.1) Total Bilirubin 0.3 MG/DL (0.2-1.0) Aspartate Amino Transf (AST/SGOT) 18 U/L (15-37) Alanine Aminotransferase (ALT/SGPT) 15 U/L (12-78) Alkaline Phosphatase 134 U/L (46-116) H Total Protein 7.4 G/DL (6.4-8.2) Albumin 1.6 G/DL (3.4-5.0) L Globulin 5.8 g/dL Albumin/Globulin Ratio 0.3 (1.0-2.7) L Latanya Mckeon MD Sep 30, 2020 10:52
--- NOTE | 2020-09-30 10:53 | Diagnostic Imaging Report ---
Indication: Dyspnea Technique: One view of the chest Comparison: 09/28/2020 Findings: Interim development of infiltrate at the left lung base. The pleural spaces are clear. The heart size is normal. Endotracheal tube is again demonstrated Impression: Left basilar infiltrate, developing over 2 days
[2020-09-30] MEDS: Ertapenem 1 GM in NS 55 ML IV SCH (11:51)
--- NOTE | 2020-09-30 11:52 | Nephrology Progress Note ---
Assessment/Plan Problem List: (1) KELLY (acute kidney injury) (2) Dehydration (3) Hypernatremia (4) Severe sepsis (5) History of CVA (cerebrovascular accident) (6) Parkinson disease (7) Acute respiratory failure (8) Elevated lipase Assessment KELLY, Hypernatremia, dehydration, free water deficit Sepsis Acute respiratory failure requiring intubation and mechanical ventilation Diabetes mellitus [id number] GT feeding History of CVA History of hypertension Parkinson's disease Elevated lipase Plan September 30: Labs reviewed. Renal parameters stable. Blood pressure hovering around 90s systolic. We will add midodrine through GT tube. Continue per consultants. September 29: Labs reviewed. Serum creatinine down to 1.3 and electrolytes reviewed. Abnormal electrolytes addressed. Continue per consultants. September 28: Labs reviewed. Creatinine 1.6 unchanged. Hypernatremia persists. Will give 1 L of D5W. Continue to monitor renal parameters and electrolytes. Continue per consultants. September 27: Labs reviewed. Serum sodium lowering. Serum creatinine lowering. Blood sugar somewhat better controlled. Patient continues to be on free water through tube feeding. Continue to monitor renal parameters and electrolytes. Abnormal electrolytes addressed. September 26: IV fluids stopped. Patient receiving free water reviewed NG tube. Patient full code. Intubated on ventilator. Discussed with JOHNNY Christensen. Continue to monitor renal parameters. Serum creatinine lower but abnormal electrolyte persists and was addressed. Previously: IV fluid half-normal saline 125 cc an hour Albumin fluid challenge Monitor electrolytes Monitor renal parameters Hold blood pressure medication since blood pressure low Per orders, per consultants Subjective ROS Limited/Unobtainable: Yes Objective Objective Last 24 Hour Vital Signs Date Time Temp Pulse Resp B/P (MAP) Pulse Ox O2 Delivery O2 Flow Rate FiO2 09/30/20 11:20 98 18 40 09/30/20 11:00 90 16 95/60 (72) 100 09/30/20 10:00 85 17 113/64 (80) 100 09/30/20 09:00 98 22 118/67 (84) 100 09/30/20 08:00 Mechanical Ventilator 09/30/20 08:00 97.2 99 22 117/76 (90) 100 09/30/20 08:00 100 09/30/20 08:00 40 09/30/20 07:10 101 24 40 09/30/20 07:00 97 20 121/62 (81) 100 09/30/20 06:00 98 20 119/60 (79) 100 09/30/20 05:00 94 18 109/60 (76) 100 09/30/20 04:00 100 25 111/72 (85) 100 09/30/20 04:00 100 09/30/20 04:00 Mechanical Ventilator 09/30/20 04:00 40 09/30/20 03:03 102 26 40 09/30/20 03:00 88 23 107/66 (80) 100 09/30/20 02:00 100 24 110/62 (78) 100 09/30/20 01:00 101 23 111/73 (86) 100 09/30/20 00:00 99 22 107/75 (86) 100 09/30/20 00:00 Mechanical Ventilator 09/29/20 23:00 105 23 108/69 (82) 100 09/29/20 22:50 95 21 40 09/29/20 22:00 105 23 111/70 (84) 100 09/29/20 21:00 117 25 126/52 (76) 100 09/29/20 20:00 119 26 118/71 (87) 100 09/29/20 20:00 105 09/29/20 20:00 40 09/29/20 20:00 Mechanical Ventilator 09/29/20 19:10 110 24 40 09/29/20 19:00 97 20 110/62 (78) 100 09/29/20 18:00 97 20 107/64 (78) 100 09/29/20 17:00 98.2 102 26 127/67 (87) 100 09/29/20 16:00 40 09/29/20 16:00 90 21 120/75 (90) 100 09/29/20 16:00 93 09/29/20 16:00 Mechanical Ventilator 09/29/20 15:05 101 23 40 09/29/20 15:00 100 21 116/72 (87) 100 09/29/20 14:00 101 20 105/69 (81) 100 09/29/20 13:00 99.5 107 22 108/70 (83) 100 09/29/20 12:00 40 09/29/20 12:00 94 09/29/20 12:00 96 16 93/54 (67) 100 09/29/20 12:00 Mechanical Ventilator 09/29/20 11:58 88 16 40 Intake and Output 09/29/20 09/30/20 19:00 07:00 Intake Total 1255 ml 900 ml Output Total 1425 ml 1500 ml Balance -170 ml -600 ml IV Total 355 ml Tube Feeding 900 ml 900 ml Output Urine Total 1425 ml 1500 ml Laboratory Tests 09/30/20 04:43: Phosphorus Level 3.3, Magnesium Level 2.1 09/30/20 04:45: White Blood Count 9.1, Red Blood Count 3.54L, Hemoglobin 9.5L, Hematocrit 28.9L, Mean Corpuscular Volume 82, Mean Corpuscular Hemoglobin 26.8L, Mean Corpuscular Hemoglobin Concent 32.8, Red Cell Distribution Width 15.4H, Platelet Count 160, Mean Platelet Volume 10.9H, Neutrophils (%) (Auto) 79.2H, Lymphocytes (%) (Auto) 13.2L, Monocytes (%) (Auto) 6.1, Eosinophils (%) (Auto) 0.6, Basophils (%) (Auto) 0.9, Sodium Level 144, Potassium Level 4.0, Chloride Level 111H, Carbon Dioxide Level 18L, Anion Gap 15, Blood Urea Nitrogen 14, Creatinine 1.1, Estimat Glomerular Filtration Rate > 60, Glucose Level 224H, Calcium Level 8.8, Total Bilirubin 0.3, Aspartate Amino Transf (AST/SGOT) 18, Alanine Aminotransferase (ALT/SGPT) 15, Alkaline Phosphatase 134H, Total Protein 7.4, Albumin 1.6L, Globulin 5.8, Albumin/Globulin Ratio 0.3L Height (Feet): 5 Height (Inches): 10.00 Weight (Pounds): 180 General Appearance: no apparent distress EENT: other - Intubated on mechanical ventilation Cardiovascular: tachycardia Abdomen: hypoactive bowel sounds Eddie Nelson MD Sep 30, 2020 11:52
[2020-09-30] MEDS: Midodrine 10mg tab GT SCH ×2 (13:23→22:00)
--- NOTE | 2020-09-30 13:52 | Surgery Progress Note ---
Surgery Progress Note Subjective Additional Comments ill appearing on vent no n/v labs noted weaning but difficult Objective Last 24 Hour Vital Signs Date Time Temp Pulse Resp B/P (MAP) Pulse Ox O2 Delivery O2 Flow Rate FiO2 09/30/20 13:00 92 16 95/56 (69) 100 09/30/20 12:00 Mechanical Ventilator 09/30/20 12:00 97.2 93 16 97/55 (69) 98 09/30/20 12:00 91 09/30/20 12:00 40 09/30/20 11:20 98 18 40 09/30/20 11:00 90 16 95/60 (72) 100 09/30/20 10:00 85 17 113/64 (80) 100 09/30/20 09:00 98 22 118/67 (84) 100 09/30/20 08:00 Mechanical Ventilator 09/30/20 08:00 97.2 99 22 117/76 (90) 100 09/30/20 08:00 100 09/30/20 08:00 40 09/30/20 07:10 101 24 40 09/30/20 07:00 97 20 121/62 (81) 100 09/30/20 06:00 98 20 119/60 (79) 100 09/30/20 05:00 94 18 109/60 (76) 100 09/30/20 04:00 100 25 111/72 (85) 100 09/30/20 04:00 100 09/30/20 04:00 Mechanical Ventilator 09/30/20 04:00 40 09/30/20 03:03 102 26 40 09/30/20 03:00 88 23 107/66 (80) 100 09/30/20 02:00 100 24 110/62 (78) 100 09/30/20 01:00 101 23 111/73 (86) 100 09/30/20 00:00 99 22 107/75 (86) 100 09/30/20 00:00 Mechanical Ventilator 09/29/20 23:00 105 23 108/69 (82) 100 09/29/20 22:50 95 21 40 09/29/20 22:00 105 23 111/70 (84) 100 09/29/20 21:00 117 25 126/52 (76) 100 09/29/20 20:00 119 26 118/71 (87) 100 09/29/20 20:00 105 09/29/20 20:00 40 09/29/20 20:00 Mechanical Ventilator 09/29/20 19:10 110 24 40 09/29/20 19:00 97 20 110/62 (78) 100 09/29/20 18:00 97 20 107/64 (78) 100 09/29/20 17:00 98.2 102 26 127/67 (87) 100 09/29/20 16:00 40 09/29/20 16:00 90 21 120/75 (90) 100 09/29/20 16:00 93 09/29/20 16:00 Mechanical Ventilator 09/29/20 15:05 101 23 40 09/29/20 15:00 100 21 116/72 (87) 100 09/29/20 14:00 101 20 105/69 (81) 100 I&O Intake and Output 09/29/20 09/30/20 19:00 07:00 Intake Total 1255 ml 900 ml Output Total 1425 ml 1500 ml Balance -170 ml -600 ml IV Total 355 ml Tube Feeding 900 ml 900 ml Output Urine Total 1425 ml 1500 ml Dressing: saturated Cardiovascular: RSR Respiratory: decreased breath sounds Abdomen: non-tender, present bowel sounds Extremities: no edema, no tenderness, no cyanosis Laboratory Tests Test 09/30/20 04:43 09/30/20 04:45 Phosphorus Level 3.3 MG/DL (2.5-4.9) Magnesium Level 2.1 MG/DL (1.8-2.4) White Blood Count 9.1 K/UL (4.8-10.8) Red Blood Count 3.54 M/UL (4.70-6.10) L Hemoglobin 9.5 G/DL (14.2-18.0) L Hematocrit 28.9 % (42.0-52.0) L Mean Corpuscular Volume 82 FL (80-99) Mean Corpuscular Hemoglobin 26.8 PG (27.0-31.0) L Mean Corpuscular Hemoglobin Concent 32.8 G/DL (32.0-36.0) Red Cell Distribution Width 15.4 % (11.6-14.8) H Platelet Count 160 K/UL (150-450) Mean Platelet Volume 10.9 FL (6.5-10.1) H Neutrophils (%) (Auto) 79.2 % (45.0-75.0) H Lymphocytes (%) (Auto) 13.2 % (20.0-45.0) L Monocytes (%) (Auto) 6.1 % (1.0-10.0) Eosinophils (%) (Auto) 0.6 % (0.0-3.0) Basophils (%) (Auto) 0.9 % (0.0-2.0) Sodium Level 144 MMOL/L (136-145) Potassium Level 4.0 MMOL/L (3.5-5.1) Chloride Level 111 MMOL/L (98-107) H Carbon Dioxide Level 18 MMOL/L (21-32) L Anion Gap 15 mmol/L (5-15) Blood Urea Nitrogen 14 mg/dL (7-18) Creatinine 1.1 MG/DL (0.55-1.30) Estimat Glomerular Filtration Rate > 60 mL/min (>60) Glucose Level 224 MG/DL (74-106) H Calcium Level 8.8 MG/DL (8.5-10.1) Total Bilirubin 0.3 MG/DL (0.2-1.0) Aspartate Amino Transf (AST/SGOT) 18 U/L (15-37) Alanine Aminotransferase (ALT/SGPT) 15 U/L (12-78) Alkaline Phosphatase 134 U/L (46-116) H Total Protein 7.4 G/DL (6.4-8.2) Albumin 1.6 G/DL (3.4-5.0) L Globulin 5.8 g/dL Albumin/Globulin Ratio 0.3 (1.0-2.7) L Plan Problems: (1) Hypoxia (2) Severe sepsis Assessment & Plan: leukocytosis lactic acidosis anemia renal insufficiency on support in ICU dressings changed and care plan initiated cont abx trend labs if fluids am imaging ordered Non-Blanchable erythema noted to R and L earlobes. Erythematous, scaly pimple- like rash,some of which are scaly and others small papules noted to R and L axillae, upper R and L chest and back ,R and L groin areas. Pt observed to persistently scratch affected areas described. Incontinence Associated Dermatitis Buttocks, R and L Ischial tuberosities are erythematous,denuded with shearing and scattered satellite lesions. Per staff pt frequently removes or dislodges Condom cath. R Heel is boggy with non-blanchable erythema. L Heel is boggy with Non-Blanchable erythema. Pt presented on admission with Multiple Pressure Injuries. Sacral DTPI which extends into R and L Gluteal cheeks and is partially opened upper R gluteus (L)14cm x (W)15cm. DTPI noted within hypertrophic scar from previous Pressure injury. Base of wound is purpuric at rm cleft ,and indurated. Non-Blanchable erythema with additional shearing periwound. An area of induration with darker skin tone noted to L Ischium. Darker skin tone without induration R Ischium. Scrotum is erythematous and swollen. DTPI L Heel and Plantar L Heel(L)4cm x (W)3.5cm. Base of Pressure Injury roca colored Blister with darker center. Periwound is fluctuant with non-Blanchable erythema. DTPI R Heel (L)2.7cm x (W)4cm. Non-Blanchable erythema without induration/fluctuance R Hallux. Non-Blanchable erythema without induration/fluctuance L Hallux. Tx.Plan:Apply Cavilon Skin Barrier to both R and L ears.(Pad Oxygen Tubing as Needed.) Apply Moisture Barrier Paste to bilat groin and bilat ischial tuberosities with eqach Incontinence care. Apply Cavilon Skin Barrier to both heels. Cover each heel with Optif oam drsg. Change every 7 days and prn. Cleanse Sacral wound with Saline. Apply Therahoney. Apply Moisture Barrier Paste periwound. Cover with Optifoam drsg. Change every 3 days and prn. Apply Moisture Barrier Paste to Scrotum,R and L ischial tuberosities with each incontinence care. Apply Cavilon Skin Barrier to R and L Hallux. Cover each site with Optifoam drsgs. Change every 7 days and prn. Reposition at least every 2hours or as tolerated. Off-load heels with pillow. APM/ALEK Mattress overlay improving cont current care tube site okay DAILY ESTIMATED NEEDS: Needs based on Critical care, DM, Wound/ 53kg 22-30 kcals/kg 0939-9034 total kcals 1.25-2 g protein/kg 66-106 g total protein 25-30 mL/kg [id number] total fluid mLs NUTRITION DIAGNOSIS: * Swallowing difficulty R/T dysphagia as evidenced by Pt is GT dep, currently orally intubated, on pressor support, NPO. CURRENT TF:NPO ENTERAL NUTRITION RECOMMENDATIONS: Glucerna 1.2 @ 55ml/hr x 24 hrs to provide 1320ml, 1584kcal, 79g prot, 1063ml free water * As medically appropriate and with hemodynamic stability -> initiate Glucerna 1.2 @ 25ml/hr x 6hrs, advance 10ml q 4-6 hrs as tolerated to goal rate * HOB over 30 degrees * H2O flush of 100ml q 6hrs --------- Without hemodynamic stability, rec trophic feeding of Glucerna 1.2 @ 10-15ml/hr ADDITIONAL RECOMMENDATIONS: * Per SNF: HT=5'7" WT= 138lbs (as of Sep 13, 2020) * Monitor hemodyanmic stability: NE @ 8mcg * Wound healing: TF rec @ goal provides 100% RDI add Vit C 500mg QD + Terrance BID via TF * Monitor lytes, replete as needed (low K) * Monitor BGs, consider long acting insulin w/ TF Monitor closely for hypoglycemia while NPO (3) Dehydration (4) Hypernatremia (5) Clostridium difficile colitis (6) Staphylococcus aureus bacteremia (7) Hip fracture, left (8) Diabetes mellitus (9) History of hypertension (10) Severe protein-calorie malnutrition (11) Acute encephalopathy (12) Pressure Ulcer Of Sacral Region, Unstageable (13) Feeding by G-tube (14) Abdominal distention (15) Multiple drug resistant organism (MDRO) culture positive (16) Sepsis (17) History of CVA (cerebrovascular accident) (18) Parkinson disease James Breen Sep 30, 2020 13:52
[2020-09-30] MEDS ORDERED: Vancomycin 1.5gm/300ml Premix IVPB ONE (15:00)
[2020-09-30] MEDS: Dyna-Hex 2% Top Sol 2oz TOPIC SCH (19:42)
--- NOTE | 2020-09-30 22:02 | Internal Med Progress Note ---
Subjective Physician Name Cirilo Rome Attending Physician Cirilo Rome MD Current Medications Medications (Trade) Dose Ordered Sig/Debi Route PRN Reason Start Time Stop Time Status Last Admin Dose Admin Acetaminophen (Tylenol) 650 mg Q4H PRN ORAL fever 09/25/20 00:15 10/25/20 00:14 09/28/20 09:47 Chlorhexidine Gluconate (Jazmin-Hex 2%) 1 applic DAILY@2000 TOPIC 09/26/20 20:00 12/25/20 19:59 09/30/20 19:42 Dextrose (Dextrose 50%) 25 ml Q30M PRN IV Hypoglycemia 09/25/20 15:30 12/24/20 15:29 Dextrose (Dextrose 50%) 50 ml Q30M PRN IV Hypoglycemia 09/25/20 15:30 12/24/20 15:29 Ertapenem 1 gm/ Sodium Chloride 55 ml @ 110 mls/hr Q24H IV 09/26/20 12:00 10/04/20 11:59 09/30/20 11:51 Heparin Sodium (Porcine) (Heparin 5000 units/ml) 5,000 units EVERY 12 HOURS SUBQ 09/25/20 09:00 11/09/20 08:59 09/30/20 20:05 Insulin Aspart (NovoLOG) BEFORE MEALS AND HS SUBQ 09/25/20 16:30 12/24/20 16:29 09/30/20 20:19 Lorazepam (Ativan 2mg/ml 1ml) 2 mg Q2H PRN IV For Anxiety 09/25/20 00:15 10/02/20 00:14 Midodrine (Pro-Amatine) 10 mg Q8HR GT 09/30/20 14:00 12/29/20 13:59 09/30/20 13:23 Morphine Sulfate (Morphine Sulfate) 4 mg Q4H PRN IVP Severe Pain (Pain Scale 7-10) 09/25/20 00:15 10/02/20 00:14 Ondansetron HCl (Zofran) 4 mg Q6H PRN IVP Nausea & Vomiting 09/25/20 00:15 10/25/20 00:14 Pantoprazole (Protonix) 40 mg Q12HR IVP 09/25/20 21:00 10/25/20 08:59 09/30/20 20:05 Polyethylene Glycol (Miralax) 17 gm DAILYPRN PRN ORAL Constipation 09/25/20 00:15 10/25/20 00:14 [facility] 1 ea DAILY PRN MISC Per rx protocol 09/30/20 13:45 10/30/20 13:44 Vancomycin HCl 750 mg/Sodium Chloride 275 ml @ 183.333 mls/hr Q12HR@0300,1500 IVPB 10/01/20 03:00 10/06/20 02:59 Allergies: Coded Allergies: No Known Allergies (Unverified , 08/27/19) Subjective in ICU, intubated, remained on ventil, open his eyes, however cannot follow-up with commands, WBC: 9.1. Objective Last Vital Signs Date Time Temp Pulse Resp B/P (MAP) Pulse Ox O2 Delivery O2 Flow Rate FiO2 09/30/20 20:00 40 09/30/20 20:00 Mechanical Ventilator 09/30/20 20:00 109 19 108/56 (73) 100 09/30/20 17:00 98.9 09/28/20 16:00 40.0 Laboratory Tests Test 09/30/20 04:43 09/30/20 04:45 09/30/20 16:56 Phosphorus Level 3.3 MG/DL (2.5-4.9) Magnesium Level 2.1 MG/DL (1.8-2.4) White Blood Count 9.1 K/UL (4.8-10.8) Red Blood Count 3.54 M/UL (4.70-6.10) L Hemoglobin 9.5 G/DL (14.2-18.0) L Hematocrit 28.9 % (42.0-52.0) L Mean Corpuscular Volume 82 FL (80-99) Mean Corpuscular Hemoglobin 26.8 PG (27.0-31.0) L Mean Corpuscular Hemoglobin Concent 32.8 G/DL (32.0-36.0) Red Cell Distribution Width 15.4 % (11.6-14.8) H Platelet Count 160 K/UL (150-450) Mean Platelet Volume 10.9 FL (6.5-10.1) H Neutrophils (%) (Auto) 79.2 % (45.0-75.0) H Lymphocytes (%) (Auto) 13.2 % (20.0-45.0) L Monocytes (%) (Auto) 6.1 % (1.0-10.0) Eosinophils (%) (Auto) 0.6 % (0.0-3.0) Basophils (%) (Auto) 0.9 % (0.0-2.0) Sodium Level 144 MMOL/L (136-145) Potassium Level 4.0 MMOL/L (3.5-5.1) Chloride Level 111 MMOL/L (98-107) H Carbon Dioxide Level 18 MMOL/L (21-32) L Anion Gap 15 mmol/L (5-15) Blood Urea Nitrogen 14 mg/dL (7-18) Creatinine 1.1 MG/DL (0.55-1.30) Estimat Glomerular Filtration Rate > 60 mL/min (>60) Glucose Level 224 MG/DL (74-106) H Calcium Level 8.8 MG/DL (8.5-10.1) Total Bilirubin 0.3 MG/DL (0.2-1.0) Aspartate Amino Transf (AST/SGOT) 18 U/L (15-37) Alanine Aminotransferase (ALT/SGPT) 15 U/L (12-78) Alkaline Phosphatase 134 U/L (46-116) H Total Protein 7.4 G/DL (6.4-8.2) Albumin 1.6 G/DL (3.4-5.0) L Globulin 5.8 g/dL Albumin/Globulin Ratio 0.3 (1.0-2.7) L POC Whole Blood Glucose 154 MG/DL (74-106) H Microbiology Date/Time Source Procedure Growth Status 09/29/20 09:00 Nasopharynx Coronavirus COVID-19 PCR ([facility]) - Final Complete 09/28/20 15:10 Sputum Gram Stain - Final Resulted 09/28/20 15:10 Sputum Culture - Preliminary Gram Negative Bacillus 1 Resulted 09/28/20 14:00 Blood Blood Culture - Preliminary Resulted 09/28/20 00:30 Stool Clostridium difficile Toxin Assay - Final Complete Intake and Output 09/29/20 09/30/20 19:00 07:00 Intake Total 1255 ml 900 ml Output Total 1425 ml 1500 ml Balance -170 ml -600 ml IV Total 355 ml Tube Feeding 900 ml 900 ml Output Urine Total 1425 ml 1500 ml Objective PHYSICAL EXAMINATION: GENERAL: intubated, open his eyes, tracking,. HEENT: Eyes, pupils are equal responsive to light and accommodation. ET tube. NECK: Supple No JVD CHEST: mechanical breath sound, decreased air at bases, no wheezes. CARDIOVASCULAR: Regular rate. S1 and S2 normal without murmurs, ABDOMEN: Soft, nontender, and nondistended. Positive bowel sounds. PEG site intact. EXTREMITIES: Negative for clubbing, cyanosis, +1 LE's edema. RECTAL: Rectal tube. NEUROLOGIC: Unable to assess due to patient's status, unable to follow command. Assessment/Plan Assessment/Plan ASSESSMENT: This is a 80-year-old male. 1. Acute hypoxemic Respiratory failure. 2. Bilateral pneumonia. 3. Hypertension. 4. Diabetes type 2. 5. Hypercholesterolemia. 6. Parkinson disease. 7. COVID-19 negative. 8. Ulcerative proctitis. 9. Benign prostatic hypertrophy. 10. Gastroesophageal reflux disease. 11. Urinary tract infection=proteus mirabilis 12. Sepsis=coag neg staph TREATMENT: 1. Pneumonia/respiratory failure. Infectious diseases = Drs. Harris/Pj. A Pulmonary/Critical care= Dr. Latanya Mckeon. The patient is currently intubated on the mechanical ventilator in the intensive care unit. ABX= vancomycin, amikacin, and ertapenem. Follow recommendation of Infectious Diseases. Await sputumcultures. 2. Urinary tract infection. ABX= Ertapenem and Vanco IV An Infectious Disease consultation has been obtained with Dr. Harris. 3. Hypertension. The patient is currently hypotensive. 4. Diabetes type 2. NovoLog sliding scale has been instituted. 5. Hypercholesterolemia. Continue simvastatin as above. 6. Parkinson disease. 7. Ulcerative proctitis. 8. Benign prostatic hypertrophy. 9. Gastroesophageal reflux disease. 10. Dysphagia. every feeding at 25 cc/hr. Cirilo Rome MD Sep 30, 2020 22:02
[2020-10-01] VITALS (24 sets, daily range): BP systolic 75–125; BP diastolic 42–83
[2020-10-01] MEDS ORDERED: Vancomycin 750mg/NS 275ml IVPB SCH ×2 (03:00)
[2020-10-01] MEDS: Midodrine 10mg tab GT SCH ×3 (06:06→21:31)
[2020-10-01] MEDS: NovoLOG Insulin Flexpen SUBQ SCH ×4 (06:29→21:33)
--- NOTE | 2020-10-01 07:49 | Pulmonolgy Critical Care Note ---
Critical Care - Asmt/Plan Assessment/Plan: ASSESSMENT Acute respiratory failure , requiring intubation Sepsis with shock CONS bacteremia Proteus ESBL UTI Pneumonia , possible aspiration KELLY- > resolved Dysphagia, feeding by G-tube DM Anemia Hx of CVA Hx of hypertension Parkinson disease PLAN OF CARE ICU vent support pulmonary toilet follow-up with CXR and ABG, weaning as tolerated CXR with new infiltrate strict aspiration precaution DVT prophylaxis abx as per ID recs SCX 09/28 + proteus BCX 09/28 + CONS COVID-19 negative C duf NGT BP support with midodrine start gentle IV hydration, given hypotension BS management with SSI monitor renal parameters, electrolytes ,correct electrolytes as needed ,avoid nephrotoxic KELLY resolved monitor H&H with goal to keep Hgb above 7 supportive care remains full code case discussed and evaluated by supervising physician Critical Care - Objective Last 24 Hour Vital Signs Date Time Temp Pulse Resp B/P (MAP) Pulse Ox O2 Delivery O2 Flow Rate FiO2 10/01/20 07:00 109 17 112/67 (82) 100 10/01/20 06:00 102.2 113 21 111/71 (84) 99 10/01/20 05:00 112 22 119/62 (81) 98 10/01/20 04:15 106 16 77/48 (58) 100 10/01/20 04:00 108 16 84/42 (56) 100 10/01/20 04:00 40 10/01/20 04:00 108 10/01/20 04:00 Mechanical Ventilator 10/01/20 03:00 120 16 75/53 (60) 99 10/01/20 02:53 124 16 40 10/01/20 02:09 100.4 10/01/20 02:00 100.4 120 16 102/81 (88) 99 10/01/20 01:00 120 17 121/62 (81) 99 10/01/20 00:00 104.0 115 16 112/71 (85) 99 10/01/20 00:00 Mechanical Ventilator 09/30/20 23:42 120 18 40 09/30/20 23:00 117 18 116/68 (84) 100 09/30/20 22:00 112 18 124/63 (83) 100 09/30/20 21:00 116 21 121/66 (84) 99 09/30/20 20:00 40 09/30/20 20:00 Mechanical Ventilator 09/30/20 20:00 109 19 108/56 (73) 100 09/30/20 20:00 109 09/30/20 19:49 107 20 40 09/30/20 19:00 96 19 106/77 (87) 100 09/30/20 18:00 104 21 111/59 (76) 100 09/30/20 17:46 100 09/30/20 17:45 40 09/30/20 17:30 110 27 122/72 (89) 100 09/30/20 17:00 98.9 118 30 120/61 (80) 100 09/30/20 16:15 116 32 40 40 09/30/20 16:00 98 09/30/20 16:00 40 09/30/20 16:00 109 19 117/59 (78) 100 09/30/20 16:00 Mechanical Ventilator 09/30/20 15:00 99 16 99/55 (70) 100 09/30/20 15:00 109 20 40 09/30/20 14:00 100 16 91/53 (66) 100 09/30/20 13:00 92 16 95/56 (69) 100 09/30/20 12:00 Mechanical Ventilator 09/30/20 12:00 97.2 93 16 97/55 (69) 98 09/30/20 12:00 91 09/30/20 12:00 40 09/30/20 12:00 98 18 100 Endotrachael Tube 40 09/30/20 11:20 98 18 40 09/30/20 11:00 90 16 95/60 (72) 100 09/30/20 10:00 85 17 113/64 (80) 100 09/30/20 09:00 98 22 118/67 (84) 100 09/30/20 08:00 Mechanical Ventilator 09/30/20 08:00 97.2 99 22 117/76 (90) 100 09/30/20 08:00 100 09/30/20 08:00 40 Status: awake Condition: critical HEENT: atraumatic, normocephalic, other - intubated, OP with ET in place Vent AC 600-40%-16 PEEP 0 Lungs: rhonchi - few scattered Heart: other - ST on monitro Abdomen: soft, non-tender Extremities: no C/C/E Micro: Microbiology Date/Time Source Procedure Growth Status 12/17/20 09:00 Nasopharynx Coronavirus COVID-19 PCR ([facility]) - Final Complete 09/28/20 15:10 Sputum Gram Stain - Final Resulted 09/28/20 15:10 Sputum Culture - Preliminary Proteus Mirabilis Resulted 09/28/20 14:00 Blood Blood Culture - Preliminary Staphylococcus Sp Coag Neg Resulted Accucheck: 302 Critical Care - Subjective ROS Limited/Unobtainable: Yes Interval Events: leukocytosis resolved, remains febrile tachycardic 09/30 tolerated weaning for 1.5 hr last CXR 09/30 with new infiltrate Condition: critical EKG Rhythm: Sinus Rhythm FI02: 40 Vent Support Breath Rate: 16 Vent Support Mode: AC Vent Tidal Volume: 600 Sputum Amount: Small PEEP: 0.0 PIP: 21 Tube Feeding Amount: 40 I&O: Intake and Output 09/30/20 10/01/20 19:00 07:00 Intake Total 840 ml 480 ml Output Total 1190 ml 745 ml Balance -350 ml -265 ml IV Total 355 ml Tube Feeding 485 ml 480 ml Output Urine Total 1190 ml 745 ml CXR: CXR 09/30 ->Left basilar infiltrate, developing over 2 days ET-Tube: 7.0 ET Position: 23 Kim Mahoney NP Oct 01, 2020 07:49
--- NOTE | 2020-10-01 08:09 | Infectious Diseases Prog Note ---
Assessment/Plan 80yo M with: CONS bacteremia, recurrent 09/24 BCx 2/2 +CONS 09/25 BCx neg 09/28 BCx +CONS 09/30 BCx p Sepsis, septic shock GPC bacteremia UTI 2/2 ESBL P.mirabilis Pneumonia 2/2 ESBL P.mirabilis Febrile to 105, improving Leukocytosis to 15, improving 09/24 BCx 2/2 CONS UA 20-30 WBC, UCx ESBL P.mirabilis COVID rapid test neg, PCR neg CXR: 1. Coarse bibasilar interstitial lung markings, may represent atypical infectious process such as viral pneumonia versus pulmonary edema. 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: No knife changer 2 days 09/28 C.dif neg 09/28 BCx +GPCs (see above) Resp cx +ESBL P.mirabilis 09/29 COVID PCR neg Cr 2.0, improving Plan: Stop ertapenem 1g IV daily #6 for ESBL UTI and pna Start meropenem #1 (abx d #7) for ESBL P.mirabilis UTI/pna (can sometimes have increased MICs to erta, but S-audra) Cont vanco IV #2 given BCx +CONS CT chest/abd/pelvis given going fevers despite broad abx F/u repeat BCx 09/30 Trend WBC Trend Cr 10/01 SP erta #6 09/25 SP amikacin and vanco x1 Monitor CBC/CMP Monitor temp curve, hemodynamics Monitor resp status D/w RN Thank you for this consult. [facility] will continue to follow. Subjective Allergies: Coded Allergies: No Known Allergies (Unverified , 08/27/19) Ongoing fevers to 102 Sedated on vent Objective Last 24 Hour Vital Signs Date Time Temp Pulse Resp B/P (MAP) Pulse Ox O2 Delivery O2 Flow Rate FiO2 10/01/20 07:00 109 17 112/67 (82) 100 10/01/20 06:00 102.2 113 21 111/71 (84) 99 10/01/20 05:00 112 22 119/62 (81) 98 10/01/20 04:15 106 16 77/48 (58) 100 10/01/20 04:00 108 16 84/42 (56) 100 10/01/20 04:00 40 10/01/20 04:00 108 10/01/20 04:00 Mechanical Ventilator 10/01/20 03:00 120 16 75/53 (60) 99 10/01/20 02:53 124 16 40 10/01/20 02:09 100.4 10/01/20 02:00 100.4 120 16 102/81 (88) 99 10/01/20 01:00 120 17 121/62 (81) 99 10/01/20 00:00 104.0 115 16 112/71 (85) 99 10/01/20 00:00 Mechanical Ventilator 09/30/20 23:42 120 18 40 09/30/20 23:00 117 18 116/68 (84) 100 09/30/20 22:00 112 18 124/63 (83) 100 09/30/20 21:00 116 21 121/66 (84) 99 09/30/20 20:00 40 09/30/20 20:00 Mechanical Ventilator 09/30/20 20:00 109 19 108/56 (73) 100 09/30/20 20:00 109 09/30/20 19:49 107 20 40 09/30/20 19:00 96 19 106/77 (87) 100 09/30/20 18:00 104 21 111/59 (76) 100 09/30/20 17:46 100 09/30/20 17:45 40 09/30/20 17:30 110 27 122/72 (89) 100 09/30/20 17:00 98.9 118 30 120/61 (80) 100 09/30/20 16:15 116 32 40 40 09/30/20 16:00 98 09/30/20 16:00 40 09/30/20 16:00 109 19 117/59 (78) 100 09/30/20 16:00 Mechanical Ventilator 09/30/20 15:00 99 16 99/55 (70) 100 09/30/20 15:00 109 20 40 09/30/20 14:00 100 16 91/53 (66) 100 09/30/20 13:00 92 16 95/56 (69) 100 09/30/20 12:00 Mechanical Ventilator 09/30/20 12:00 97.2 93 16 97/55 (69) 98 09/30/20 12:00 91 09/30/20 12:00 40 09/30/20 12:00 98 18 100 Endotrachael Tube 40 09/30/20 11:20 98 18 40 09/30/20 11:00 90 16 95/60 (72) 100 09/30/20 10:00 85 17 113/64 (80) 100 09/30/20 09:00 98 22 118/67 (84) 100 Height (Feet): 5 Height (Inches): 10.00 Weight (Pounds): 180 Gen: NAD HEENT: NCAT Pulm: BL chest rise Abd: Non-distended Ext: No c/c/e Skin: No visible rashes Neuro: Awake Lines: R fem CVC Microbiology Date/Time Source Procedure Growth Status 09/29/20 09:00 Nasopharynx Coronavirus COVID-19 PCR ([facility]) - Final Complete 09/28/20 15:10 Sputum Gram Stain - Final Resulted 09/28/20 15:10 Sputum Culture - Preliminary Proteus Mirabilis Resulted 09/28/20 14:00 Blood Blood Culture - Preliminary Staphylococcus Sp Coag Neg Resulted Laboratory Tests Test 09/30/20 11:39 09/30/20 16:56 POC Whole Blood Glucose 203 MG/DL (74-106) H 154 MG/DL (74-106) H Current Medications Medications (Trade) Dose Ordered Sig/Debi Route PRN Reason Start Time Stop Time Status Last Admin Dose Admin Acetaminophen (Tylenol) 650 mg Q4H PRN ORAL fever 09/25/20 00:15 10/25/20 00:14 10/01/20 01:39 Chlorhexidine Gluconate (Jazmin-Hex 2%) 1 applic DAILY@1999 TOPIC 09/26/20 20:00 12/25/20 19:59 09/30/20 19:42 Dextrose (Dextrose 50%) 25 ml Q30M PRN IV Hypoglycemia 09/25/20 15:30 12/24/20 15:29 Dextrose (Dextrose 50%) 50 ml Q30M PRN IV Hypoglycemia 09/25/20 15:30 12/24/20 15:29 Ertapenem 1 gm/ Sodium Chloride 55 ml @ 110 mls/hr Q24H IV 09/26/20 12:00 10/04/20 11:59 09/30/20 11:51 Heparin Sodium (Porcine) (Heparin 5000 units/ml) 5,000 units EVERY 12 HOURS SUBQ 09/25/20 09:00 11/09/20 08:59 09/30/20 20:05 Insulin Aspart (NovoLOG) BEFORE MEALS AND HS SUBQ 09/25/20 16:30 12/24/20 16:29 10/01/20 06:29 Lorazepam (Ativan 2mg/ml 1ml) 2 mg Q2H PRN IV For Anxiety 09/25/20 00:15 10/02/20 00:14 Midodrine (Pro-Amatine) 10 mg Q8HR GT 09/30/20 14:00 12/29/20 13:59 10/01/20 06:06 Morphine Sulfate (Morphine Sulfate) 4 mg Q4H PRN IVP Severe Pain (Pain Scale 7-10) 09/25/20 00:15 10/02/20 00:14 Ondansetron HCl (Zofran) 4 mg Q6H PRN IVP Nausea & Vomiting 09/25/20 00:15 10/25/20 00:14 Pantoprazole (Protonix) 40 mg Q12HR IVP 09/25/20 21:00 10/25/20 08:59 09/30/20 20:05 Polyethylene Glycol (Miralax) 17 gm DAILYPRN PRN ORAL Constipation 09/25/20 00:15 10/25/20 00:14 Vancomycin HCl ([facility] pharmacy to dose) 1 ea DAILY PRN MISC Per rx protocol 09/30/20 13:45 10/30/20 13:44 Vancomycin HCl 750 mg/Sodium Chloride 275 ml @ 183.333 mls/hr Q12HR@0300,1500 IVPB 10/01/20 03:00 10/06/20 02:59 10/01/20 03:00 Marixa Oliva M.D. Oct 01, 2020 08:09
[2020-10-01] MEDS ORDERED: Omnipaque-300 100ml vial INJ PRN (08:15)
[2020-10-01] MEDS: Pantoprazole Inj IVP SCH ×2 (09:46→20:46)
[2020-10-01] MEDS: Heparin 5000 units/ml inj SUBQ SCH ×2 (09:47→20:48)
[2020-10-01] MEDS ORDERED: D5W 275ml ONE (09:51)
[2020-10-01] MEDS ORDERED: Sterile Water Irrig 1000ml IRRIG ONE (09:51)
[2020-10-01] MEDS ORDERED: Tubing IV Secondary IV ONE (09:51)
[2020-10-01] MEDS ORDERED: NS 275ml ONE (09:51)
[2020-10-01] MEDS: Meropenem 1 GM in NS 55 ML IVPB SCH ×2 (10:00→20:11)
--- NOTE | 2020-10-01 12:12 | Nephrology Progress Note ---
Assessment/Plan Problem List: (1) KELLY (acute kidney injury) (2) Dehydration (3) Hypernatremia (4) Severe sepsis (5) History of CVA (cerebrovascular accident) (6) Parkinson disease (7) Acute respiratory failure (8) Elevated lipase Assessment KELLY, Hypernatremia, dehydration, free water deficit Sepsis Acute respiratory failure requiring intubation and mechanical ventilation Diabetes mellitus [id number] GT feeding History of CVA History of hypertension Parkinson's disease Elevated lipase Plan October 01: Seen in ICU. Discussed with RN. No chemistry panel done today. Blood pressure hovering around 100 systolic. Will check labs tomorrow. Continue per consultants. September 30: Labs reviewed. Renal parameters stable. Blood pressure hovering around 90s systolic. We will add midodrine through GT tube. Continue per consultants. September 29: Labs reviewed. Serum creatinine down to 1.3 and electrolytes reviewed. Abnormal electrolytes addressed. Continue per consultants. September 28: Labs reviewed. Creatinine 1.6 unchanged. Hypernatremia persists. Will give 1 L of D5W. Continue to monitor renal parameters and electrolytes. Continue per consultants. September 27: Labs reviewed. Serum sodium lowering. Serum creatinine lowering. Blood sugar somewhat better controlled. Patient continues to be on free water through tube feeding. Continue to monitor renal parameters and electrolytes. Abnormal electrolytes addressed. September 26: IV fluids stopped. Patient receiving free water reviewed NG tube. Patient full code. Intubated on ventilator. Discussed with JOHNNY Christensen. Continue to monitor renal parameters. Serum creatinine lower but abnormal electrolyte persists and was addressed. Previously: IV fluid half-normal saline 125 cc an hour Albumin fluid challenge Monitor electrolytes Monitor renal parameters Hold blood pressure medication since blood pressure low Per orders, per consultants Subjective ROS Limited/Unobtainable: Yes Objective Objective Last 24 Hour Vital Signs Date Time Temp Pulse Resp B/P (MAP) Pulse Ox O2 Delivery O2 Flow Rate FiO2 10/01/20 11:00 125 16 101/59 (73) 100 10/01/20 10:19 101.0 10/01/20 10:00 116 16 125/55 (78) 100 10/01/20 09:00 111 16 109/79 (89) 100 10/01/20 08:00 96 10/01/20 08:00 102.6 96 16 100/49 (66) 100 10/01/20 08:00 Mechanical Ventilator 10/01/20 08:00 40 10/01/20 07:00 109 17 112/67 (82) 100 10/01/20 06:00 102.2 113 21 111/71 (84) 99 10/01/20 05:00 112 22 119/62 (81) 98 10/01/20 04:15 106 16 77/48 (58) 100 10/01/20 04:00 108 16 84/42 (56) 100 10/01/20 04:00 40 10/01/20 04:00 108 10/01/20 04:00 Mechanical Ventilator 10/01/20 03:00 120 16 75/53 (60) 99 10/01/20 02:53 124 16 40 10/01/20 02:09 100.4 10/01/20 02:00 100.4 120 16 102/81 (88) 99 10/01/20 01:00 120 17 121/62 (81) 99 10/01/20 00:00 104.0 115 16 112/71 (85) 99 10/01/20 00:00 Mechanical Ventilator 09/30/20 23:42 120 18 40 09/30/20 23:00 117 18 116/68 (84) 100 09/30/20 22:00 112 18 124/63 (83) 100 09/30/20 21:00 116 21 121/66 (84) 99 09/30/20 20:00 40 09/30/20 20:00 Mechanical Ventilator 09/30/20 20:00 109 19 108/56 (73) 100 09/30/20 20:00 109 09/30/20 19:49 107 20 40 09/30/20 19:00 96 19 106/77 (87) 100 09/30/20 18:00 104 21 111/59 (76) 100 20 17:46 100 09/30/20 17:45 40 09/30/20 17:30 110 27 122/72 (89) 100 09/30/20 17:00 98.9 118 30 120/61 (80) 100 09/30/20 16:15 116 32 40 40 09/30/20 16:00 98 09/30/20 16:00 40 09/30/20 16:00 109 19 117/59 (78) 100 09/30/20 16:00 Mechanical Ventilator 09/30/20 15:00 99 16 99/55 (70) 100 09/30/20 15:00 109 20 40 09/30/20 14:00 100 16 91/53 (66) 100 09/30/20 13:00 92 16 95/56 (69) 100 Intake and Output 09/30/20 10/01/20 19:00 07:00 Intake Total 840 ml 480 ml Output Total 1190 ml 745 ml Balance -350 ml -265 ml IV Total 355 ml Tube Feeding 485 ml 480 ml Output Urine Total 1190 ml 745 ml Laboratory Tests 09/30/20 16:56: POC Whole Blood Glucose 154H Height (Feet): 5 Height (Inches): 10.00 Weight (Pounds): 180 General Appearance: no apparent distress EENT: other - Intubated on ventilator Cardiovascular: tachycardia Respiratory/Chest: decreased breath sounds Abdomen: distended Eddie Nelson MD Oct 01, 2020 12:12
--- NOTE | 2020-10-01 16:43 | Internal Med Progress Note ---
Subjective Date of Service: Oct 01, 2020 Physician Name Tello Cobb Attending Physician Cirilo Rome MD Current Medications Medications (Trade) Dose Ordered Sig/Debi Route PRN Reason Start Time Stop Time Status Last Admin Dose Admin Acetaminophen (Tylenol) 650 mg Q4H PRN ORAL fever 09/25/20 00:15 10/25/20 00:14 10/01/20 11:07 Barium Sulfate (Readi-Cat 2) 450 ml NOW PRN ORAL Radiology Procedure 10/01/20 08:15 10/03/20 08:14 Chlorhexidine Gluconate (Jazmin-Hex 2%) 1 applic DAILY@2000 TOPIC 09/26/20 20:00 12/25/20 19:59 09/30/20 19:42 Dextrose (Dextrose 50%) 25 ml Q30M PRN IV Hypoglycemia 09/25/20 15:30 12/24/20 15:29 Dextrose (Dextrose 50%) 50 ml Q30M PRN IV Hypoglycemia 09/25/20 15:30 12/24/20 15:29 Heparin Sodium (Porcine) (Heparin 5000 units/ml) 5,000 units EVERY 12 HOURS SUBQ 09/25/20 09:00 11/09/20 08:59 10/01/20 09:47 Insulin Aspart (NovoLOG) BEFORE MEALS AND HS SUBQ 09/25/20 16:30 12/24/20 16:29 10/01/20 11:55 Iohexol (OMNIPAQUE-300 100ml) 100 ml ONCE PRN INJ radiology procedure 10/01/20 08:15 10/03/20 08:14 Lorazepam (Ativan 2mg/ml 1ml) 2 mg Q2H PRN IV For Anxiety 09/25/20 00:15 10/02/20 00:14 Meropenem 1 gm/ Sodium Chloride 55 ml @ 110 mls/hr Q8H IVPB 10/01/20 10:00 10/06/20 09:59 10/01/20 10:00 Midodrine (Pro-Amatine) 10 mg Q8HR GT 09/30/20 14:00 12/29/20 13:59 10/01/20 14:00 Morphine Sulfate (Morphine Sulfate) 4 mg Q4H PRN IVP Severe Pain (Pain Scale 7-10) 09/25/20 00:15 10/02/20 00:14 Ondansetron HCl (Zofran) 4 mg Q6H PRN IVP Nausea & Vomiting 09/25/20 00:15 10/25/20 00:14 Pantoprazole (Protonix) 40 mg Q12HR IVP 09/25/20 21:00 10/25/20 08:59 10/01/20 09:46 Polyethylene Glycol (Miralax) 17 gm DAILYPRN PRN ORAL Constipation 09/25/20 00:15 10/25/20 00:14 Sodium Chloride 1,000 ml @ 50 mls/hr Q20H IV 10/01/20 09:15 10/31/20 09:14 10/01/20 09:15 Vancomycin HCl (Vanco pharmacy to dose) 1 ea DAILY PRN MISC Per rx protocol 09/30/20 13:45 10/30/20 13:44 Vancomycin HCl 500 mg/Dextrose 110 ml @ 110 mls/hr Q12H IVPB 10/01/20 20:00 10/06/20 19:59 Allergies: Coded Allergies: No Known Allergies (Unverified , 08/27/19) ROS Limited/Unobtainable: Yes Subjective 80 YO M admitted with respiratory failure. Intubated and sedated. Cover for Int Med-DR Rome. ICU Objective Last Vital Signs Date Time Temp Pulse Resp B/P (MAP) Pulse Ox O2 Delivery O2 Flow Rate FiO2 10/01/20 16:00 100.1 98 16 103/57 (72) 100 10/01/20 16:00 Mechanical Ventilator 10/01/20 16:00 40 09/28/20 16:00 40.0 Laboratory Tests Test 09/30/20 16:56 10/01/20 14:00 POC Whole Blood Glucose 154 MG/DL (74-106) H Vancomycin Level Trough 21.4 ug/mL (5.0-12.0) H Microbiology Date/Time Source Procedure Growth Status 09/29/20 09:00 Nasopharynx Coronavirus COVID-19 PCR ([facility]) - Final Complete Intake and Output 09/30/20 10/01/20 19:00 07:00 Intake Total 840 ml 480 ml Output Total 1190 ml 745 ml Balance -350 ml -265 ml IV Total 355 ml Tube Feeding 485 ml 480 ml Output Urine Total 1190 ml 745 ml Objective PHYSICAL EXAMINATION: VITAL SIGNS: Temperature 103.5 degrees Fahrenheit, respiratory rate 24, pulse 138, blood pressure 130/83, pulse ox was 100% on mechanical ventilation with 60% FiO2. GENERAL: The patient is well-developed and well-nourished male, who is intubated and sedated. HEENT: Eyes, pupils are equal responsive to light and accommodation. Extraocular movements are intact. NECK: Supple without lymphadenopathy. CHEST: Mech vent; Decreased breath sounds bilateral bases, otherwise without wheezes or rales. CARDIOVASCULAR: Regular rate. S1 and S2 normal without murmurs, rubs, or gallops. ABDOMEN: Soft, nontender, and nondistended. Positive bowel sounds. No evidence of hepatosplenomegaly. Currently, no rebound or guarding noted. EXTREMITIES: Negative for clubbing, cyanosis, or edema. RECTAL/GENITAL: Not performed. NEUROLOGIC: Unable to assess Assessment/Plan Assessment/Plan ASSESSMENT: This is a 80-year-old male. 1. Respiratory failure. 2. Bilateral pneumonia. 3. Hypertension. 4. Diabetes type 2. 5. Hypercholesterolemia. 6. Parkinson disease. 7. COVID-19 negative. 8. Ulcerative proctitis. 9. Benign prostatic hypertrophy. 10. Gastroesophageal reflux disease. 11. Urinary tract infection=proteus mirabilis 12. Sepsis=coag neg staph TREATMENT: 1. Pneumonia/respiratory failure. Infectious diseases = Drs. Harris/Pj. A Pulmonary/Critical care= Dr. Latanya Mckeon. The patient is currently intubated on the mechanical ventilator in the intensive care unit. ABX= vancomycin, amikacin, and ertapenem. Follow recommendation of Infectious Diseases. Await sputumcultures. 2. Urinary tract infection. ABX= Meropenem and vancomycin. An Infectious Disease consultation has been obtained with Dr. Harris. 3. Hypertension. The patient is currently hypotensive. 4. Diabetes type 2. NovoLog sliding scale has been instituted. 5. Hypercholesterolemia. Continue simvastatin as above. 6. Parkinson disease. 7. Ulcerative proctitis. 8. Benign prostatic hypertrophy. 9. Gastroesophageal reflux disease. 10. Dysphagia. The patient is status post PEG placement. Tello Cobb MD Oct 01, 2020 16:43
--- NOTE | 2020-10-01 18:36 | Surgery Progress Note ---
Surgery Progress Note Subjective Additional Comments ill appearing on vent weaning but difficult labs noted Objective Last 24 Hour Vital Signs Date Time Temp Pulse Resp B/P (MAP) Pulse Ox O2 Delivery O2 Flow Rate FiO2 10/01/20 17:00 94 16 87/47 (60) 100 10/01/20 16:00 100.1 98 16 103/57 (72) 100 10/01/20 16:00 Mechanical Ventilator 10/01/20 16:00 40 10/01/20 16:00 97 10/01/20 15:02 95 16 40 10/01/20 15:00 96 16 95/55 (68) 100 10/01/20 14:00 100 19 118/61 (80) 100 10/01/20 13:00 85 16 92/49 (63) 100 10/01/20 12:00 92 10/01/20 12:00 100.4 125 16 89/47 (61) 100 10/01/20 12:00 Mechanical Ventilator 10/01/20 12:00 40 10/01/20 11:00 125 16 101/59 (73) 100 10/01/20 10:30 106 19 40 10/01/20 10:19 101.0 10/01/20 10:00 116 16 125/55 (78) 100 10/01/20 09:00 111 16 109/79 (89) 100 10/01/20 08:00 96 10/01/20 08:00 102.6 96 16 100/49 (66) 100 10/01/20 08:00 Mechanical Ventilator 10/01/20 08:00 40 10/01/20 07:40 107 19 40 10/01/20 07:00 109 17 112/67 (82) 100 10/01/20 06:00 102.2 113 21 111/71 (84) 99 10/01/20 05:00 112 22 119/62 (81) 98 10/01/20 04:15 106 16 77/48 (58) 100 10/01/20 04:00 108 16 84/42 (56) 100 10/01/20 04:00 40 10/01/20 04:00 108 10/01/20 04:00 Mechanical Ventilator 10/01/20 03:00 120 16 75/53 (60) 99 10/01/20 02:53 124 16 40 10/01/20 02:09 100.4 10/01/20 02:00 100.4 120 16 102/81 (88) 99 10/01/20 01:00 120 17 121/62 (81) 99 10/01/20 00:00 104.0 115 16 112/71 (85) 99 10/01/20 00:00 Mechanical Ventilator 09/30/20 23:42 120 18 40 09/30/20 23:00 117 18 116/68 (84) 100 09/30/20 22:00 112 18 124/63 (83) 100 09/30/20 21:00 116 21 121/66 (84) 99 09/30/20 20:00 40 09/30/20 20:00 Mechanical Ventilator 09/30/20 20:00 109 19 108/56 (73) 100 09/30/20 20:00 109 09/30/20 19:49 107 20 40 09/30/20 19:00 96 19 106/77 (87) 100 I&O Intake and Output 09/30/20 10/01/20 19:00 07:00 Intake Total 840 ml 480 ml Output Total 1190 ml 745 ml Balance -350 ml -265 ml IV Total 355 ml Tube Feeding 485 ml 480 ml Output Urine Total 1190 ml 745 ml Dressing: saturated Cardiovascular: RSR Respiratory: decreased breath sounds Abdomen: non-tender, present bowel sounds Extremities: no tenderness, no cyanosis Laboratory Tests Test 10/01/20 14:00 Vancomycin Level Trough 21.4 ug/mL (5.0-12.0) H Plan Problems: (1) Hypoxia (2) Severe sepsis Assessment & Plan: leukocytosis lactic acidosis anemia renal insufficiency on support in ICU dressings changed and care plan initiated cont abx trend labs if fluids am imaging ordered Non-Blanchable erythema noted to R and L earlobes. Erythematous, scaly pimple- like rash,some of which are scaly and others small papules noted to R and L axillae, upper R and L chest and back ,R and L groin areas. Pt observed to persistently scratch affected areas described. Incontinence Associated Dermatitis Buttocks, R and L Ischial tuberosities are erythematous,denuded with shearing and scattered satellite lesions. Per staff pt frequently removes or dislodges Condom cath. R Heel is boggy with non-blanchable erythema. L Heel is boggy with Non-Blanchable erythema. Pt presented on admission with Multiple Pressure Injuries. Sacral DTPI which extends into R and L Gluteal cheeks and is partially opened upper R gluteus (L)14cm x (W)15cm. DTPI noted within hypertrophic scar from previous Pressure injury. Base of wound is purpuric at cleft ,and indurated. Non-Blanchable erythema with additional shearing periwound. An area of induration with darker skin tone noted to L Ischium. Darker skin tone without induration R Ischium. Scrotum is erythematous and swollen. DTPI L Heel and Plantar L Heel(L)4cm x (W)3.5cm. Base of Pressure Injury roca colored Blister with darker center. Periwound is fluctuant with non-Blanchable erythema. DTPI R Heel (L)2.7cm x (W)4cm. Non-Blanchable erythema without induration/fluctuance R Hallux. Non-Blanchable erythema without induration/fluctuance L Hallux. Tx.Plan:Apply Cavilon Skin Barrier to both R and L ears.(Pad Oxygen Tubing as Needed.) Apply Moisture Barrier Paste to bilat groin and bilat ischial tuberosities with eqach Incontinence care. Apply Cavilon Skin Barrier to both heels. Cover each heel with Optifoam drsg. Change every 7 days and prn. Cleanse Sacral wound with Saline. Apply Therahoney. Apply Moisture Barrier Paste periwound. Cover with Optifoam drsg. Change every 3 days and prn. Apply Moisture Barrier Paste to Scrotum,R and L ischial tuberosities with each incontinence care. Apply Cavilon Skin Barrier to R and L Hallux. Cover each site with Optifoam drsgs. Change every 7 days and prn. Reposition at least every 2hours or as tolerated. Off-load heels with pillow. APM/ALEK Mattress overlay improving cont current care tube site okay DAILY ESTIMATED NEEDS: Needs based on Critical care, DM, Wound/ 53kg 22-30 kcals/kg 3753-2062 total kcals 1.25-2 g protein/kg 66-106 g total protein 25-30 mL/kg [address] total fluid mLs NUTRITION DIAGNOSIS: * Swallowing difficulty R/T dysphagia as evidenced by Pt is GT dep, currently orally intubated, on pressor support, NPO. CURRENT TF:NPO ENTERAL NUTRITION RECOMMENDATIONS: Glucerna 1.2 @ 55ml/hr x 24 hrs to provide 1320ml, 1584kcal, 79g prot, 1063ml free water * As medically appropriate and with hemodynamic stability -> initiate Glucerna 1.2 @ 25ml/hr x 6hrs, advance 10ml q 4-6 hrs as tolerated to goal rate * HOB over 30 degrees * H2O flush of 100ml q 6hrs --------- Without hemodynamic stability, rec trophic feeding of Glucerna 1.2 @ 10- 15ml/hr ADDITIONAL RECOMMENDATIONS: * Per SNF: HT=5'7" WT= 138lbs (as of Sep 13, 2020) * Monitor hemodyanmic stability: NE @ 8mcg * Wound healing: TF rec @ goal provides 100% RDI add Vit C 500mg QD + Terrance BID via TF * Monitor lytes, replete as needed (low K) * Monitor BGs, consider long acting insulin w/ TF Monitor closely for hypoglycemia while NPO (3) Dehydration (4) Hypernatremia (5) Clostridium difficile colitis (6) Staphylococcus aureus bacteremia (7) Hip fracture, left (8) Diabetes mellitus (9) History of hypertension (10) Severe protein-calorie malnutrition (11) Acute encephalopathy (12) Pressure Ulcer Of Sacral Region, Unstageable (13) Feeding by G-tube (14) Abdominal distention (15) Multiple drug resistant organism (MDRO) culture positive (16) Sepsis (17) History of CVA (cerebrovascular accident) (18) Parkinson disease James Breen Oct 01, 2020 18:36
[2020-10-01] MEDS: Dyna-Hex 2% Top Sol 2oz TOPIC SCH (20:46)
[2020-10-01] MEDS: Vancomycin 500mg/D5W 110ml IVPB SCH ×2 (21:02)
[2020-10-02] VITALS (25 sets, daily range): BP systolic 92–130; BP diastolic 42–63
[2020-10-02] MEDS: Meropenem 1 GM in NS 55 ML IVPB SCH ×3 (01:53→18:00)
[2020-10-02] MEDS: NovoLOG Insulin Flexpen SUBQ SCH ×5 (05:43→21:00)
[2020-10-02] MEDS: Midodrine 10mg tab GT SCH ×3 (05:45→21:48)
[2020-10-02 06:06] LABS: BASOPHILS % (AUTO) 0.5 % (0.0-2.0); EOSINOPHILS % (AUTO) 1.9 % (0.0-3.0); HEMATOCRIT 27.1 % (42.0-52.0); HEMOGLOBIN 8.6 G/DL (14.2-18.0); MEAN CORPUSCULAR VOLUME 84 FL (80-99); NEUTROPHILS % (AUTO) 70.6 % (45.0-75.0); PLATELET COUNT 268 K/UL (150-450); RED BLOOD COUNT 3.24 M/UL (4.70-6.10); RED CELL DISTRIBUTION WIDTH 16.5 % (11.6-14.8); WHITE BLOOD COUNT 11.8 K/UL (4.8-10.8)
[2020-10-02 06:49] LABS: ALANINE AMINOTRANSFERASE 17 U/L (12-78); ALBUMIN 1.5 G/DL (3.4-5.0); ALBUMIN/GLOBULIN RATIO 0.3 (1.0-2.7); ALKALINE PHOSPHATASE 151 U/L (46-116); ANION GAP 10 mmol/L (5-15); ASPARTATE AMINO TRANSFERASE 17 U/L (15-37); BILIRUBIN,TOTAL 0.3 MG/DL (0.2-1.0); BLOOD UREA NITROGEN 21 mg/dL (7-18); CALCIUM 8.7 MG/DL (8.5-10.1); CARBON DIOXIDE 22 MMOL/L (21-32); CHLORIDE 119 MMOL/L (98-107); CREATININE 1.3 MG/DL (0.55-1.30); POTASSIUM 3.5 MMOL/L (3.5-5.1); SODIUM 151 MMOL/L (136-145)
[2020-10-02] MEDS: Vancomycin 500mg/D5W 110ml IVPB SCH ×4 (07:10→21:07)
[2020-10-02] MEDS: Pantoprazole Inj IVP SCH ×2 (08:05→21:07)
[2020-10-02] MEDS: Heparin 5000 units/ml inj SUBQ SCH ×2 (08:06→21:08)
--- NOTE | 2020-10-02 09:31 | Pulmonolgy Critical Care Note ---
Critical Care - Asmt/Plan Assessment/Plan: ASSESSMENT Acute respiratory failure , requiring intubation Sepsis with shock CONS bacteremia-real vs contaminant Proteus ESBL UTI Pneumonia , possible aspiration KELLY- > resolved Dysphagia, feeding by G-tube DM Anemia Hx of CVA Hx of hypertension Parkinson disease PLAN OF CARE ICU vent support pulmonary toilet follow-up with CXR and ABG, weaning as tolerated CXR 09/30 with new L infiltrate CT chest pending strict aspiration precaution DVT prophylaxis abx as per ID recs SCX 09/28 + Proteus ESBL BCX 09/28 + CONS fup BCX 09/30 NGTD prior BCX 09/26 NGT , CONS liekly contaminant COVID-19 negative C dif NGT BP support with midodrine start gentle IV hydration, given hypotension BS management with SSI monitor renal parameters, electrolytes ,correct electrolytes as needed ,avoid nephrotoxic KELLY resolved monitor H&H with goal to keep Hgb above 7 supportive care remains full code case discussed and evaluated by supervising physician Critical Care - Objective Last 24 Hour Vital Signs Date Time Temp Pulse Resp B/P (MAP) Pulse Ox O2 Delivery O2 Flow Rate FiO2 10/02/20 09:00 102 16 106/60 (75) 100 10/02/20 08:00 Mechanical Ventilator 10/02/20 08:00 40 10/02/20 08:00 101.3 97 16 105/56 (72) 100 10/02/20 07:45 106 10/02/20 07:00 100 16 108/59 (75) 100 10/02/20 06:00 98 16 112/60 (77) 100 10/02/20 05:00 100 16 96/61 (73) 100 10/02/20 04:00 40 10/02/20 04:00 100.8 106 16 116/63 (80) 100 10/02/20 04:00 Mechanical Ventilator 10/02/20 03:30 112 10/02/20 03:16 100 17 40 10/02/20 03:00 93 16 103/63 (76) 100 10/02/20 02:00 86 16 106/60 (75) 100 10/02/20 01:04 100.9 10/02/20 01:00 97 16 93/56 (68) 100 10/02/20 00:00 101.1 100 16 102/61 (75) 100 10/02/20 00:00 Mechanical Ventilator 10/01/20 23:32 98 10/01/20 23:00 99 16 109/59 (76) 100 10/01/20 22:58 101 18 40 10/01/20 22:00 96 17 98/83 (88) 100 10/01/20 21:00 100 17 105/55 (72) 100 10/01/20 20:00 Mechanical Ventilator 10/01/20 20:00 40 10/01/20 20:00 84 10/01/20 20:00 98.7 87 16 100/59 (73) 100 10/01/20 19:00 87 16 103/60 (74) 100 10/01/20 18:54 103 16 40 10/01/20 17:00 94 16 87/47 (60) 100 10/01/20 16:00 100.1 98 16 103/57 (72) 100 10/01/20 16:00 Mechanical Ventilator 10/01/20 16:00 40 10/01/20 16:00 97 10/01/20 15:02 95 16 40 10/01/20 15:00 96 16 95/55 (68) 100 10/01/20 14:00 100 19 118/61 (80) 100 10/01/20 13:00 85 16 92/49 (63) 100 10/01/20 12:00 92 10/01/20 12:00 100.4 125 16 89/47 (61) 100 10/01/20 12:00 Mechanical Ventilator 10/01/20 12:00 40 10/01/20 11:00 125 16 101/59 (73) 100 10/01/20 10:30 106 19 40 10/01/20 10:19 101.0 10/01/20 10:00 116 16 125/55 (78) 100 Objective: Status: awake Condition: critical HEENT: atraumatic, normocephalic, intubated, OP with ET in place Vent AC 600-40%-16 PEEP 0 Lungs: few scattered rhonchi Heart: SR on monitor Abdomen: soft, non-tender Extremities: no C/C/E Micro: Microbiology Date/Time Source Procedure Growth Status 09/30/20 16:40 Blood Blood Culture - Preliminary NO GROWTH AFTER 24 HOURS Resulted 09/30/20 16:20 Blood Blood Culture - Preliminary NO GROWTH AFTER 24 HOURS Resulted Critical Care - Subjective ROS Limited/Unobtainable: Yes Interval Events: fever this am 101.3 leukocytosis CXR 09/30 with new developing L infiltrate Condition: critical IV Access: peripheral EKG Rhythm: Sinus Bradycardia FI02: 40 Vent Support Breath Rate: 16 Vent Support Mode: AC Vent Tidal Volume: 600 Sputum Amount: Small PEEP: 0.0 PIP: 36 I&O: Intake and Output 10/01/20 10/02/20 19:00 07:00 Intake Total 1305 ml 800 ml Output Total 980 ml 1195 ml Balance 325 ml -395 ml Intake Free Water 270 ml 100 ml IV Total 555 ml 500 ml Tube Feeding 480 ml 200 ml Output Urine Total 930 ml 1120 ml Stool Total 50 ml 75 ml CXR: CXR 09/30-Left basilar infiltrate, developing over 2 days ET-Tube: 7.0 ET Position: 23 Kim Mahoney NP Oct 02, 2020 09:31
--- NOTE | 2020-10-02 09:55 | Diagnostic Imaging Report ---
EXAM: XR Chest, 1 View CLINICAL HISTORY: SOB TECHNIQUE: Frontal view of the chest. COMPARISON: Chest radiograph September 30, 2020 FINDINGS/IMPRESSION: Endotracheal tube terminates approximately 5.8 cm above the rika. EKG leads overlie the patient. Improving aeration of the left lung base consistent with resolving infiltrates. Follow-up chest radiograph recommended. No pneumothorax. Mild increased interstitial markings. Cardiomegaly. Calcified aorta. Otherwise, stable exam.
--- NOTE | 2020-10-02 12:24 | Surgery Progress Note ---
Surgery Progress Note Subjective Additional Comments no acute events on support Objective Last 24 Hour Vital Signs Date Time Temp Pulse Resp B/P (MAP) Pulse Ox O2 Delivery O2 Flow Rate FiO2 10/02/20 12:00 97.7 89 16 109/56 (73) 100 10/02/20 11:00 89 16 93/51 (65) 100 10/02/20 10:26 100.6 10/02/20 10:00 94 16 96/56 (69) 100 10/02/20 09:00 102 16 106/60 (75) 100 10/02/20 08:00 Mechanical Ventilator 10/02/20 08:00 40 10/02/20 08:00 101.3 97 16 105/56 (72) 100 10/02/20 07:45 106 10/02/20 07:27 94 16 40 10/02/20 07:00 100 16 108/59 (75) 100 10/02/20 06:00 98 16 112/60 (77) 100 10/02/20 05:00 100 16 96/61 (73) 100 10/02/20 04:00 40 10/02/20 04:00 100.8 106 16 116/63 (80) 100 10/02/20 04:00 Mechanical Ventilator 10/02/20 03:30 112 10/02/20 03:16 100 17 40 10/02/20 03:00 93 16 103/63 (76) 100 10/02/20 02:00 86 16 106/60 (75) 100 10/02/20 01:04 100.9 10/02/20 01:00 97 16 93/56 (68) 100 10/02/20 00:00 101.1 100 16 102/61 (75) 100 10/02/20 00:00 Mechanical Ventilator 10/01/20 23:32 98 10/01/20 23:00 99 16 109/59 (76) 100 10/01/20 22:58 101 18 40 10/01/20 22:00 96 17 98/83 (88) 100 10/01/20 21:00 100 17 105/55 (72) 100 10/01/20 20:00 Mechanical Ventilator 10/01/20 20:00 40 10/01/20 20:00 84 10/01/20 20:00 98.7 87 16 100/59 (73) 100 10/01/20 19:00 87 16 103/60 (74) 100 10/01/20 18:54 103 16 40 10/01/20 17:00 94 16 87/47 (60) 100 10/01/20 16:00 100.1 98 16 103/57 (72) 100 10/01/20 16:00 Mechanical Ventilator 10/01/20 16:00 40 10/01/20 16:00 97 10/01/20 15:02 95 16 40 10/01/20 15:00 96 16 95/55 (68) 100 10/01/20 14:00 100 19 118/61 (80) 100 10/01/20 13:00 85 16 92/49 (63) 100 I&O Intake and Output 10/01/20 10/02/20 19:00 07:00 Intake Total 1305 ml 800 ml Output Total 980 ml 1195 ml Balance 325 ml -395 ml Intake Free Water 270 ml 100 ml IV Total 555 ml 500 ml Tube Feeding 480 ml 200 ml Output Urine Total 930 ml 1120 ml Stool Total 50 ml 75 ml Dressing: saturated Cardiovascular: RSR Respiratory: decreased breath sounds Abdomen: non-tender, present bowel sounds, non-distended Extremities: no tenderness, no cyanosis Laboratory Tests Test 10/01/20 14:00 10/02/20 05:08 10/02/20 05:35 10/02/20 11:12 Vancomycin Level Trough 21.4 ug/mL (5.0-12.0) H White Blood Count 11.8 K/UL (4.8-10.8) H Red Blood Count 3.24 M/UL (4.70-6.10) L Hemoglobin 8.6 G/DL (14.2-18.0) L Hematocrit 27.1 % (42.0-52.0) L Mean Corpuscular Volume 84 FL (80-99) Mean Corpuscular Hemoglobin 26.6 PG (27.0-31.0) L Mean Corpuscular Hemoglobin Concent 31.8 G/DL (32.0-36.0) L Red Cell Distribution Width 16.5 % (11.6-14.8) H Platelet Count 268 K/UL (150-450) Mean Platelet Volume 11.2 FL (6.5-10.1) H Neutrophils (%) (Auto) 70.6 % (45.0-75.0) Lymphocytes (%) (Auto) 22.0 % (20.0-45.0) Monocytes (%) (Auto) 5.0 % (1.0-10.0) Eosinophils (%) (Auto) 1.9 % (0.0-3.0) Basophils (%) (Auto) 0.5 % (0.0-2.0) Sodium Level 151 MMOL/L (136-145) H Potassium Level 3.5 MMOL/L (3.5-5.1) Chloride Level 119 MMOL/L (98-107) H Carbon Dioxide Level 22 MMOL/L (21-32) Anion Gap 10 mmol/L (5-15) Blood Urea Nitrogen 21 mg/dL (7-18) H Creatinine 1.3 MG/DL (0.55-1.30) Estimat Glomerular Filtration Rate > 60 mL/min (>60) Glucose Level 229 MG/DL (74-106) H Calcium Level 8.7 MG/DL (8.5-10.1) Phosphorus Level 3.0 MG/DL (2.5-4.9) Magnesium Level 1.9 MG/DL (1.8-2.4) Total Bilirubin 0.3 MG/DL (0.2-1.0) Aspartate Amino Transf (AST/SGOT) 17 U/L (15-37) Alanine Aminotransferase (ALT/SGPT) 17 U/L (12-78) Alkaline Phosphatase 151 U/L (46-116) H Total Protein 7.1 G/DL (6.4-8.2) Albumin 1.5 G/DL (3.4-5.0) L Globulin 5.6 g/dL Albumin/Globulin Ratio 0.3 (1.0-2.7) L POC Whole Blood Glucose 213 MG/DL (74-106) H 225 MG/DL (74-106) H Plan Problems: (1) Hypoxia (2) Severe sepsis Assessment & Plan: leukocytosis lactic acidosis anemia renal insufficiency on support in ICU dressings changed and care plan initiated cont abx trend labs if fluids am imaging ordered Non-Blanchable erythema noted to R and L earlobes. Erythematous, scaly pimple- like rash,some of which are scaly and others small papules noted to R and L axillae, upper R and L chest and back ,R and L groin areas. Pt observed to persistently scratch affected areas described. Incontinence Associated Dermatitis Buttocks, R and L Ischial tuberosities are erythematous,denuded with shearing and scattered satellite lesions. Per staff pt frequently removes or dislodges Condom cath. R Heel is boggy with non-blanchable erythema. L Heel is boggy with Non-Blanchable erythema. Pt presented on admission with Multiple Pressure Injuries. Sacral DTPI which extends into R and L Gluteal cheeks and is partially opened upper R gluteus (L)14cm x (W)15cm. DTPI noted within hypertrophic scar from previous Pressure injury. Base of wound is purpuric at rm cleft ,and indurated. Non-Blanchable erythema with additional shearing periwound. An area of induration with darker skin tone noted to L Ischium. Darker skin tone without induration R Ischium. Scrotum is erythematous and swollen. DTPI L Heel and Plantar L Heel(L)4cm x (W)3.5cm. Base of Pressure Injury roca colored Blister with darker center. Periwound is fluctuant with non-Blanchable erythema. DTPI R Heel (L)2.7cm x (W)4cm. Non-Blanchable erythema without induration/fluctuance R Hallux. Non-Blanchable erythema without induration/fluctuance L Hallux. Tx.Plan:Apply Cavilon Skin Barrier to both R and L ears.(Pad Oxygen Tubing as Needed.) Apply Moisture Barrier Paste to bilat groin and bilat ischial tuberosities with eqach Incontinence care. Apply Cavilon Skin Barrier to both heels. Cover each heel with Optif oam drsg. Change every 7 days and prn. Cleanse Sacral wound with Saline. Apply Therahoney. Apply Moisture Barrier Paste periwound. Cover with Optifoam drsg. Change every 3 days and prn. Apply Moisture Barrier Paste to Scrotum,R and L ischial tuberosities with each incontinence care. Apply Cavilon Skin Barrier to R and L Hallux. Cover each site with Optifoam drsgs. Change every 7 days and prn. Reposition at least every 2hours or as tolerated. Off-load heels with pillow. APM/ALEK Mattress overlay improving cont current care tube site okay DAILY ESTIMATED NEEDS: Needs based on Critical care, DM, Wound/ 53kg 22-30 kcals/kg 5524-9959 total kcals 1.25-2 g protein/kg 66-106 g total protein 25-30 mL/kg [address] total fluid mLs NUTRITION DIAGNOSIS: * Swallowing difficulty R/T dysphagia as evidenced by Pt is GT dep, currently orally intubated, on pressor support, NPO. CURRENT TF:NPO ENTERAL NUTRITION RECOMMENDATIONS: Glucerna 1.2 @ 55ml/hr x 24 hrs to provide 1320ml, 1584kcal, 79g prot, 1063ml free water * As medically appropriate and with hemodynamic stability -> initiate Glucerna 1.2 @ 25ml/hr x 6hrs, advance 10ml q 4-6 hrs as tolerated to goal rate * HOB over 30 degrees * H2O flush of 100ml q 6hrs --------- Without hemodynamic stability, rec trophic feeding of Glucerna 1.2 @ 10-15ml/hr ADDITIONAL RECOMMENDATIONS: * Per SNF: HT=5'7" WT= 138lbs (as of Sep 13, 2020) * Monitor hemodyanmic stability: NE @ 8mcg * Wound healing: TF rec @ goal provides 100% RDI add Vit C 500mg QD + Terrance BID via TF * Monitor lytes, replete as needed (low K) * Monitor BGs, consider long acting insulin w/ TF Monitor closely for hypoglycemia while NPO (3) Dehydration (4) Hypernatremia (5) Clostridium difficile colitis (6) Staphylococcus aureus bacteremia (7) Hip fracture, left (8) Diabetes mellitus (9) History of hypertension (10) Severe protein-calorie malnutrition (11) Acute encephalopathy (12) Pressure Ulcer Of Sacral Region, Unstageable (13) Feeding by G-tube (14) Abdominal distention (15) Multiple drug resistant organism (MDRO) culture positive (16) Sepsis (17) History of CVA (cerebrovascular accident) (18) Parkinson disease James Breen Oct 02, 2020 12:24
--- NOTE | 2020-10-02 13:50 | Internal Med Progress Note ---
Subjective Date of Service: Oct 02, 2020 Physician Name Tello Cobb Attending Physician Cirilo Rome MD Current Medications Medications (Trade) Dose Ordered Sig/Debi Route PRN Reason Start Time Stop Time Status Last Admin Dose Admin Acetaminophen (Tylenol) 650 mg Q4H PRN ORAL fever 09/25/20 00:15 10/25/20 00:14 10/02/20 09:42 Barium Sulfate (Readi-Cat 2) 450 ml NOW PRN ORAL Radiology Procedure 10/01/20 08:15 10/03/20 08:14 Chlorhexidine Gluconate (Jazmin-Hex 2%) 1 applic DAILY@2000 TOPIC 09/26/20 20:00 12/25/20 19:59 10/01/20 20:46 Dextrose (Dextrose 50%) 25 ml Q30M PRN IV Hypoglycemia 09/25/20 15:30 12/24/20 15:29 Dextrose (Dextrose 50%) 50 ml Q30M PRN IV Hypoglycemia 09/25/20 15:30 12/24/20 15:29 Heparin Sodium (Porcine) (Heparin 5000 units/ml) 5,000 units EVERY 12 HOURS SUBQ 09/25/20 09:00 11/09/20 08:59 10/02/20 08:06 Insulin Aspart (NovoLOG) BEFORE MEALS AND HS SUBQ 09/25/20 16:30 12/24/20 16:29 10/02/20 11:15 Iohexol (OMNIPAQUE-300 100ml) 100 ml ONCE PRN INJ radiology procedure 10/01/20 08:15 10/03/20 08:14 Meropenem 1 gm/ Sodium Chloride 55 ml @ 110 mls/hr Q8H IVPB 10/01/20 10:00 10/06/20 09:59 10/02/20 10:19 Midodrine (Pro-Amatine) 10 mg Q8HR GT 09/30/20 14:00 12/29/20 13:59 10/02/20 05:45 Ondansetron HCl (Zofran) 4 mg Q6H PRN IVP Nausea & Vomiting 09/25/20 00:15 10/25/20 00:14 Pantoprazole (Protonix) 40 mg Q12HR IVP 09/25/20 21:00 10/25/20 08:59 10/02/20 08:05 Polyethylene Glycol (Miralax) 17 gm DAILYPRN PRN ORAL Constipation 09/25/20 00:15 10/25/20 00:14 Sodium Chloride 1,000 ml @ 50 mls/hr Q20H IV 10/01/20 09:15 10/31/20 09:14 10/02/20 05:45 Vancomycin HCl (Vanco pharmacy to dose) 1 ea DAILY PRN MISC Per rx protocol 09/30/20 13:45 10/30/20 13:44 Vancomycin HCl 500 mg/Dextrose 110 ml @ 110 mls/hr Q12H IVPB 10/01/20 20:00 10/06/20 19:59 10/02/20 07:10 Allergies: Coded Allergies: No Known Allergies (Unverified , 08/27/19) ROS Limited/Unobtainable: Yes Subjective 80 YO M admitted with respiratory failure. Intubated and sedated. Cover for Int Med-DR Rome. ICU Objective Last Vital Signs Date Time Temp Pulse Resp B/P (MAP) Pulse Ox O2 Delivery O2 Flow Rate FiO2 10/02/20 13:00 88 16 114/58 (76) 100 10/02/20 12:00 40 10/02/20 12:00 97.7 10/02/20 12:00 Mechanical Ventilator 09/28/20 16:00 40.0 Laboratory Tests Test 10/01/20 14:00 10/02/20 05:08 10/02/20 05:35 10/02/20 11:12 Vancomycin Level Trough 21.4 ug/mL (5.0-12.0) H White Blood Count 11.8 K/UL (4.8-10.8) H Red Blood Count 3.24 M/UL (4.70-6.10) L Hemoglobin 8.6 G/DL (14.2-18.0) L Hematocrit 27.1 % (42.0-52.0) L Mean Corpuscular Volume 84 FL (80-99) Mean Corpuscular Hemoglobin 26.6 PG (27.0-31.0) L Mean Corpuscular Hemoglobin Concent 31.8 G/DL (32.0-36.0) L Red Cell Distribution Width 16.5 % (11.6-14.8) H Platelet Count 268 K/UL (150-450) Mean Platelet Volume 11.2 FL (6.5-10.1) H Neutrophils (%) (Auto) 70.6 % (45.0-75.0) Lymphocytes (%) (Auto) 22.0 % (20.0-45.0) Monocytes (%) (Auto) 5.0 % (1.0-10.0) Eosinophils (%) (Auto) 1.9 % (0.0-3.0) Basophils (%) (Auto) 0.5 % (0.0-2.0) Sodium Level 151 MMOL/L (136-145) H Potassium Level 3.5 MMOL/L (3.5-5.1) Chloride Level 119 MMOL/L (98-107) H Carbon Dioxide Level 22 MMOL/L (21-32) Anion Gap 10 mmol/L (5-15) Blood Urea Nitrogen 21 mg/dL (7-18) H Creatinine 1.3 MG/DL (0.55-1.30) Estimat Glomerular Filtration Rate > 60 mL/min (>60) Glucose Level 229 MG/DL (74-106) H Calcium Level 8.7 MG/DL (8.5-10.1) Phosphorus Level 3.0 MG/DL (2.5-4.9) Magnesium Level 1.9 MG/DL (1.8-2.4) Total Bilirubin 0.3 MG/DL (0.2-1.0) Aspartate Amino Transf (AST/SGOT) 17 U/L (15-37) Alanine Aminotransferase (ALT/SGPT) 17 U/L (12-78) Alkaline Phosphatase 151 U/L (46-116) H Total Protein 7.1 G/DL (6.4-8.2) Albumin 1.5 G/DL (3.4-5.0) L Globulin 5.6 g/dL Albumin/Globulin Ratio 0.3 (1.0-2.7) L POC Whole Blood Glucose 213 MG/DL (74-106) H 225 MG/DL (74-106) H Microbiology Date/Time Source Procedure Growth Status 09/30/20 16:40 Blood Blood Culture - Preliminary NO GROWTH AFTER 24 HOURS Resulted 09/30/20 16:20 Blood Blood Culture - Preliminary NO GROWTH AFTER 24 HOURS Resulted Intake and Output 10/01/20 10/02/20 19:00 07:00 Intake Total 1305 ml 800 ml Output Total 980 ml 1195 ml Balance 325 ml -395 ml Intake Free Water 270 ml 100 ml IV Total 555 ml 500 ml Tube Feeding 480 ml 200 ml Output Urine Total 930 ml 1120 ml Stool Total 50 ml 75 ml Objective PHYSICAL EXAMINATION: VITAL SIGNS: Temperature 103.5 degrees Fahrenheit, respiratory rate 24, pulse 138, blood pressure 130/83, pulse ox was 100% on mechanical ventilation with 60% FiO2. GENERAL: The patient is well-developed and well-nourished male, who is intubated and sedated. HEENT: Eyes, pupils are equal responsive to light and accommodation. Extraocular movements are intact. NECK: Supple without lymphadenopathy. CHEST: Mech vent; Decreased breath sounds bilateral bases, otherwise without wheezes or rales. CARDIOVASCULAR: Regular rate. S1 and S2 normal without murmurs, rubs, or gallops. ABDOMEN: Soft, nontender, and nondistended. Positive bowel sounds. No evidence of hepatosplenomegaly. Currently, no rebound or guarding noted. EXTREMITIES: Negative for clubbing, cyanosis, or edema. RECTAL/GENITAL: Not performed. NEUROLOGIC: Unable to assess Assessment/Plan Assessment/Plan ASSESSMENT: This is a 80-year-old male. 1. Respiratory failure. 2. Bilateral pneumonia. 3. Hypertension. 4. Diabetes type 2. 5. Hypercholesterolemia. 6. Parkinson disease. 7. COVID-19 negative. 8. Ulcerative proctitis. 9. Benign prostatic hypertrophy. 10. Gastroesophageal reflux disease. 11. Urinary tract infection=proteus mirabilis 12. Sepsis=coag neg staph TREATMENT: 1. Pneumonia/respiratory failure. Infectious diseases = Drs. Harris/Pj. A Pulmonary/Critical care= Dr. Latanya Mckeon. The patient is currently intubated on the mechanical ventilator in the intensive care unit. ABX= vancomycin, amikacin, and ertapenem. Follow recommendation of Infectious Diseases. Await sputumcultures. 2. Urinary tract infection. ABX= Meropenem and vancomycin. An Infectious Disease consultation has been obtained with Dr. Harris. 3. Hypertension. The patient is currently hypotensive. 4. Diabetes type 2. NovoLog sliding scale has been instituted. 5. Hypercholesterolemia. Continue simvastatin as above. 6. Parkinson disease. 7. Ulcerative proctitis. 8. Benign prostatic hypertrophy. 9. Gastroesophageal reflux disease. 10. Dysphagia. The patient is status post PEG placement. Telol Cobb MD Oct 02, 2020 13:50
--- NOTE | 2020-10-02 14:50 | Nephrology Progress Note ---
Assessment/Plan Problem List: (1) KELLY (acute kidney injury) (2) Dehydration (3) Hypernatremia (4) Severe sepsis (5) History of CVA (cerebrovascular accident) (6) Parkinson disease (7) Acute respiratory failure (8) Elevated lipase Assessment KELLY, Hypernatremia, dehydration, free water deficit Sepsis Acute respiratory failure requiring intubation and mechanical ventilation Diabetes mellitus [id number] GT feeding History of CVA History of hypertension Parkinson's disease Elevated lipase Plan October 02: Remains in ICU and intubated. Labs reviewed. Serum creatinine 1.3. Serum sodium slightly elevated. Continue to monitor renal parameters and electrolytes. October 01: Seen in ICU. Discussed with RN. No chemistry panel done today. Blood pressure hovering around 100 systolic. Will check labs tomorrow. Continue per consultants. September 30: Labs reviewed. Renal parameters stable. Blood pressure hovering around 90s systolic. We will add midodrine through GT tube. Continue per consultants. September 29: Labs reviewed. Serum creatinine down to 1.3 and electrolytes reviewed. Abnormal electrolytes addressed. Continue per consultants. September 28: Labs reviewed. Creatinine 1.6 unchanged. Hypernatremia persists. Will give 1 L of D5W. Continue to monitor renal parameters and electrolytes. Continue per consultants. September 27: Labs reviewed. Serum sodium lowering. Serum creatinine lowering. Blood sugar somewhat better controlled. Patient continues to be on free water through tube feeding. Continue to monitor renal parameters and electrolytes. Abnormal electrolytes addressed. September 26: IV fluids stopped. Patient receiving free water reviewed NG tube. Patient full code. Intubated on ventilator. Discussed with JOHNNY Christensen. Continue to monitor renal parameters. Serum creatinine lower but abnormal electrolyte persists and was addressed. Previously: IV fluid half-normal saline 125 cc an hour Albumin fluid challenge Monitor electrolytes Monitor renal parameters Hold blood pressure medication since blood pressure low Per orders, per consultants Subjective ROS Limited/Unobtainable: Yes Objective Objective Last 24 Hour Vital Signs Date Time Temp Pulse Resp B/P (MAP) Pulse Ox O2 Delivery O2 Flow Rate FiO2 10/02/20 13:00 88 16 114/58 (76) 100 10/02/20 12:00 40 10/02/20 12:00 97.7 89 16 109/56 (73) 100 10/02/20 12:00 84 10/02/20 12:00 Mechanical Ventilator 10/02/20 11:00 89 16 93/51 (65) 100 10/02/20 10:26 100.6 10/02/20 10:00 94 16 96/56 (69) 100 10/02/20 09:00 102 16 106/60 (75) 100 10/02/20 08:00 Mechanical Ventilator 10/02/20 08:00 40 10/02/20 08:00 101.3 97 16 105/56 (72) 100 10/02/20 07:45 106 10/02/20 07:27 94 16 40 10/02/20 07:00 100 16 108/59 (75) 100 10/02/20 06:00 98 16 112/60 (77) 100 10/02/20 05:00 100 16 96/61 (73) 100 10/02/20 04:00 40 10/02/20 04:00 100.8 106 16 116/63 (80) 100 10/02/20 04:00 Mechanical Ventilator 10/02/20 03:30 112 10/02/20 03:16 100 17 40 10/02/20 03:00 93 16 103/63 (76) 100 10/02/20 02:00 86 16 106/60 (75) 100 10/02/20 01:04 100.9 10/02/20 01:00 97 16 93/56 (68) 100 10/02/20 00:00 101.1 100 16 102/61 (75) 100 10/02/20 00:00 Mechanical Ventilator 10/01/20 23:32 98 10/01/20 23:00 99 16 109/59 (76) 100 10/01/20 22:58 101 18 40 10/01/20 22:00 96 17 98/83 (88) 100 10/01/20 21:00 100 17 105/55 (72) 100 10/01/20 20:00 Mechanical Ventilator 10/01/20 20:00 40 10/01/20 20:00 84 10/01/20 20:00 98.7 87 16 100/59 (73) 100 10/01/20 19:00 87 16 103/60 (74) 100 10/01/20 18:54 103 16 40 10/01/20 17:00 94 16 87/47 (60) 100 10/01/20 16:00 100.1 98 16 103/57 (72) 100 12/19/20 16:00 Mechanical Ventilator 10/01/20 16:00 40 10/01/20 16:00 97 10/01/20 15:02 95 16 40 10/01/20 15:00 96 16 95/55 (68) 100 Intake and Output 10/01/20 10/02/20 19:00 07:00 Intake Total 1305 ml 800 ml Output Total 980 ml 1195 ml Balance 325 ml -395 ml Intake Free Water 270 ml 100 ml IV Total 555 ml 500 ml Tube Feeding 480 ml 200 ml Output Urine Total 930 ml 1120 ml Stool Total 50 ml 75 ml Laboratory Tests 10/02/20 05:08: White Blood Count 11.8H, Red Blood Count 3.24L, Hemoglobin 8.6L, Hematocrit 27.1L, Mean Corpuscular Volume 84, Mean Corpuscular Hemoglobin 26.6L, Mean Corpuscular Hemoglobin Concent 31.8L, Red Cell Distribution Width 16.5H, Platelet Count 268, Mean Platelet Volume 11.2H, Neutrophils (%) (Auto) 70.6, Lymphocytes (%) (Auto) 22.0, Monocytes (%) (Auto) 5.0, Eosinophils (%) (Auto) 1.9, Basophils (%) (Auto) 0.5, Sodium Level 151H, Potassium Level 3.5, Chloride Level 119H, Carbon Dioxide Level 22, Anion Gap 10, Blood Urea Nitrogen 21H, Creatinine 1.3, Estimat Glomerular Filtration Rate > 60, Glucose Level 229H, Calcium Level 8.7, Phosphorus Level 3.0, Magnesium Level 1.9, Total Bilirubin 0.3, Aspartate Amino Transf (AST/SGOT) 17, Alanine Aminotransferase (ALT/SGPT) 17, Alkaline Phosphatase 151H, Total Protein 7.1, Albumin 1.5L, Globulin 5.6, Albumin/Globulin Ratio 0.3L 10/02/20 05:35: POC Whole Blood Glucose 213H 10/02/20 11:12: POC Whole Blood Glucose 225H Height (Feet): 5 Height (Inches): 10.00 Weight (Pounds): 180 General Appearance: no apparent distress EENT: other - On mechanical ventilation Cardiovascular: tachycardia Respiratory/Chest: decreased breath sounds Abdomen: distended Eddie Nelson MD Oct 02, 2020 14:50
[2020-10-02] MEDS: Dyna-Hex 2% Top Sol 2oz TOPIC SCH (21:07)
[2020-10-03] VITALS (24 sets, daily range): BP systolic 80–152; BP diastolic 45–81
[2020-10-03] MEDS: Meropenem 1 GM in NS 55 ML IVPB SCH ×3 (02:02→17:03)
[2020-10-03] MEDS: Acetaminophen 650mg/20.3ml GT PRN ×3 (03:24→18:29)
[2020-10-03] MEDS: Midodrine 10mg tab GT SCH ×3 (05:22→22:06)
[2020-10-03] MEDS: NovoLOG Insulin Flexpen SUBQ SCH ×3 (05:24→16:52)
[2020-10-03 07:25] LABS: CALCIUM 9.2 MG/DL (8.5-10.1); CREATININE 1.5 MG/DL (0.55-1.30); POTASSIUM 3.4 MMOL/L (3.5-5.1)
[2020-10-03 07:30] LABS: BASOPHILS % (AUTO) 0.4 % (0.0-2.0); EOSINOPHILS % (AUTO) 1.4 % (0.0-3.0); HEMATOCRIT 31.3 % (42.0-52.0); HEMOGLOBIN 9.8 G/DL (14.2-18.0); LYMPHOCYTES % (AUTO) 18.1 % (20.0-45.0); MEAN CORPUSCULAR VOLUME 84 FL (80-99); MONOCYTES % (AUTO) 4.7 % (1.0-10.0); NEUTROPHILS % (AUTO) 75.4 % (45.0-75.0); PLATELET COUNT 326 K/UL (150-450); RED BLOOD COUNT 3.72 M/UL (4.70-6.10); RED CELL DISTRIBUTION WIDTH 16.1 % (11.6-14.8); WHITE BLOOD COUNT 11.2 K/UL (4.8-10.8)
[2020-10-03 07:40] LABS: ALANINE AMINOTRANSFERASE 14 U/L (12-78); ALBUMIN 1.6 G/DL (3.4-5.0); ALKALINE PHOSPHATASE 153 U/L (46-116); ASPARTATE AMINO TRANSFERASE 18 U/L (15-37); BILIRUBIN,DIRECT < 0.1 MG/DL (0.0-0.3); BILIRUBIN,TOTAL 0.2 MG/DL (0.2-1.0); PHOSPHORUS 2.4 MG/DL (2.5-4.9)
[2020-10-03] MEDS: Pantoprazole Inj IVP SCH ×2 (08:35→20:46)
[2020-10-03] MEDS: Vancomycin 500mg/D5W 110ml IVPB SCH ×4 (08:35→20:46)
[2020-10-03] MEDS: Heparin 5000 units/ml inj SUBQ SCH ×2 (08:36→20:47)
[2020-10-03] MEDS ORDERED: NS 275ml ONE (09:36)
[2020-10-03] MEDS ORDERED: 1/2 NS 1000ml IV ONE (09:36)
[2020-10-03] MEDS ORDERED: NS 500ML ONE (09:36)
[2020-10-03] MEDS ORDERED: Tubing IV Secondary IV ONE (09:36)
[2020-10-03] MEDS ORDERED: Potassium Phosphate 20 MM in NS 275 ML IV ONE (11:00)
--- NOTE | 2020-10-03 11:05 | Nephrology Progress Note ---
Assessment/Plan Problem List: (1) KELLY (acute kidney injury) (2) Dehydration (3) Hypernatremia (4) Severe sepsis (5) History of CVA (cerebrovascular accident) (6) Parkinson disease (7) Acute respiratory failure (8) Elevated lipase Assessment KELLY, Hypernatremia, dehydration, free water deficit Sepsis Acute respiratory failure requiring intubation and mechanical ventilation Diabetes mellitus [id number]-bsotipe GT feeding History of CVA History of hypertension Parkinson's disease Elevated lipase Plan October 03: Discussed with RN. Labs are reviewed. Potassium and phosphate replacement ordered. Continue per consultants. Patient remains full code intubated on ventilator. Serum creatinine up to 1.5. Continue to monitor renal parameters. October 02: Remains in ICU and intubated. Labs reviewed. Serum creatinine 1.3. Serum sodium slightly elevated. Continue to monitor renal parameters and electrolytes. October 01: Seen in ICU. Discussed with RN. No chemistry panel done today. Blood pressure hovering around 100 systolic. Will check labs tomorrow. Continu e per consultants. September 30: Labs reviewed. Renal parameters stable. Blood pressure hovering around 90s systolic. We will add midodrine through GT tube. Continue per consultants. September 29: Labs reviewed. Serum creatinine down to 1.3 and electrolytes reviewed. Abnormal electrolytes addressed. Continue per consultants. September 28: Labs reviewed. Creatinine 1.6 unchanged. Hypernatremia persists. Will give 1 L of D5W. Continue to monitor renal parameters and electrolytes. Continue per consultants. September 27: Labs reviewed. Serum sodium lowering. Serum creatinine lowering. Blood sugar somewhat better controlled. Patient continues to be on free water through tube feeding. Continue to monitor renal parameters and electrolytes. Abnormal electrolytes addressed. September 26: IV fluids stopped. Patient receiving free water reviewed NG tube. Patient full code. Intubated on ventilator. Discussed with JOHNNY Christensen. Continue to monitor renal parameters. Serum creatinine lower but abnormal elect rolyte persists and was addressed. Previously: IV fluid half-normal saline 125 cc an hour Albumin fluid challenge Monitor electrolytes Monitor renal parameters Hold blood pressure medication since blood pressure low Per orders, per consultants Subjective ROS Limited/Unobtainable: Yes Objective Objective Last 24 Hour Vital Signs Date Time Temp Pulse Resp B/P (MAP) Pulse Ox O2 Delivery O2 Flow Rate FiO2 10/03/20 09:00 100 17 114/66 (82) 100 10/03/20 08:00 Mechanical Ventilator 10/03/20 08:00 99.8 100 18 111/62 (78) 100 10/03/20 08:00 101 10/03/20 08:00 40 10/03/20 07:00 100 19 114/65 (81) 100 10/03/20 06:56 95 17 40 10/03/20 06:00 99 16 122/65 (84) 100 10/03/20 05:00 97 16 100/63 (75) 100 10/03/20 04:00 114 10/03/20 04:00 117 16 97/53 (68) 100 10/03/20 04:00 40 10/03/20 04:00 Mechanical Ventilator 10/03/20 03:54 100.4 10/03/20 03:14 118 16 40 10/03/20 03:00 102.4 121 18 131/81 (98) 100 10/03/20 02:00 98 16 152/68 (96) 100 10/03/20 01:00 101.5 94 16 106/58 (74) 100 10/03/20 00:00 Mechanical Ventilator 10/03/20 00:00 100.5 100 17 114/66 (82) 100 10/02/20 23:22 89 16 40 10/02/20 23:00 101.1 97 16 92/53 (66) 100 10/02/20 22:18 101.5 10/02/20 22:00 107 16 107/57 (74) 100 10/02/20 21:30 104 16 111/58 (75) 100 10/02/20 21:00 99 16 116/62 (80) 100 10/02/20 20:00 40 10/02/20 20:00 102.5 93 16 107/63 (78) 100 10/02/20 20:00 Mechanical Ventilator 10/02/20 20:00 93 10/02/20 19:04 107 16 40 10/02/20 19:00 100 16 130/50 (76) 100 10/02/20 18:00 92 16 111/60 (77) 100 10/02/20 17:00 80 16 108/58 (75) 100 10/02/20 16:00 75 10/02/20 16:00 98.7 78 16 108/58 (75) 100 10/02/20 16:00 40 10/02/20 16:00 Mechanical Ventilator 10/02/20 15:27 90 16 40 10/02/20 15:00 87 16 116/42 (66) 100 10/02/20 14:00 85 16 115/44 (67) 100 10/02/20 13:00 88 16 114/58 (76) 100 10/02/20 12:00 40 10/02/20 12:00 97.7 89 16 109/56 (73) 100 10/02/20 12:00 84 10/02/20 12:00 Mechanical Ventilator 10/02/20 11:24 74 16 40 Intake and Output 10/02/20 10/03/20 19:00 07:00 Intake Total 1225 ml 760 ml Output Total 1165 ml 745 ml Balance 60 ml 15 ml Intake Free Water 100 ml 100 ml IV Total 765 ml 300 ml Tube Feeding 360 ml 200 ml Other 160 ml Output Urine Total 1165 ml 745 ml Laboratory Tests 10/02/20 11:12: POC Whole Blood Glucose 225H 10/02/20 21:16: POC Whole Blood Glucose 302H 10/03/20 06:40: White Blood Count 11.2H, Red Blood Count 3.72L, Hemoglobin 9.8L, Hematocrit 31.3L, Mean Corpuscular Volume 84, Mean Corpuscular Hemoglobin 26.3L, Mean Corpuscular Hemoglobin Concent 31.2L, Red Cell Distribution Width 16.1H, Platelet Count 326, Mean Platelet Volume 11.2H, Neutrophils (%) (Auto) 75.4H, Lymphocytes (%) (Auto) 18.1L, Monocytes (%) (Auto) 4.7, Eosinophils (%) (Auto) 1.4, Basophils (%) (Auto) 0.4, Sodium Level 150H, Potassium Level 3.4L, Chloride Level 117H, Carbon Dioxide Level 25, Anion Gap 8, Blood Urea Nitrogen 18, Creatinine 1.5H, Estimat Glomerular Filtration Rate 54.7, Glucose Level 244H, Calcium Level 9.2, Phosphorus Level 2.4L, Magnesium Level 2.0, Total Bilirubin 0.2, Direct Bilirubin < 0.1, Aspartate Amino Transf (AST/SGOT) 18, Alanine Aminotransferase (ALT/SGPT) 14, Alkaline Phosphatase 153H, Total Protein 7.3, Albumin 1.6L, Vancomycin Level Trough 19.8H 12/21/20 07:50: Arterial Blood pH 7.454H, Arterial Blood Partial Pressure CO2 32.6L, Arterial Blood Partial Pressure O2 110.7H, Arterial Blood HCO3 22.4, Arterial Blood Oxygen Saturation 97.5, Arterial Blood Base Excess -1.1, Raz Test Positive Height (Feet): 5 Height (Inches): 10.00 Weight (Pounds): 180 General Appearance: no apparent distress EENT: other - Intubated on ventilator Cardiovascular: tachycardia Respiratory/Chest: decreased breath sounds Abdomen: distended Eddie Nelson MD Oct 03, 2020 11:05
--- NOTE | 2020-10-03 13:07 | Diagnostic Imaging Report ---
Indication: Shortness of breath Technique: One view of the chest Comparison: 10/02/2020 Findings: There is slightly increased infiltrate and atelectasis at both lung bases, left greater than right. The pleural spaces remain clear. Stable satisfactory position of endotracheal tube Impression: Slightly worsened bilateral basilar infiltrates, over one day
--- NOTE | 2020-10-03 16:06 | Pulmonolgy Critical Care Note ---
Critical Care - Asmt/Plan Problems: (1) Acute respiratory failure (2) Severe sepsis (3) Diabetes mellitus (4) Severe protein-calorie malnutrition (5) History of hypertension (6) History of CVA (cerebrovascular accident) (7) Parkinson disease (8) Feeding by G-tube Respiratory: adjust tidal volume, monitor respiratory rate, adjust FIO2 Cardiac: continue to monitor HR/BP Renal: check electrolytes Infectious Disease: check cultures Gastrointestinal: continue feedings/current rate Endocrine: monitor blood sugar Hematologic: transfuse if hgb<8.5 Neurologic: PRN Ativan, keep patient comfortable Disposition: keep in ICU Notes Reviewed: renal, GI Critical Care - Objective Last 24 Hour Vital Signs Date Time Temp Pulse Resp B/P (MAP) Pulse Ox O2 Delivery O2 Flow Rate FiO2 10/03/20 15:00 98.7 88 16 110/64 (79) 100 10/03/20 14:00 96 18 104/61 (75) 100 10/03/20 13:00 98 18 109/53 (71) 100 10/03/20 12:35 101.0 10/03/20 12:00 Mechanical Ventilator 10/03/20 12:00 100.5 100 18 104/69 (81) 97 10/03/20 12:00 40 10/03/20 12:00 113 10/03/20 12:00 40 10/03/20 12:00 Mechanical Ventilator 10/03/20 11:10 114 20 40 10/03/20 11:00 100 17 122/68 (86) 100 10/03/20 10:00 100 17 108/72 (84) 100 10/03/20 09:00 100 17 114/66 (82) 100 10/03/20 08:00 Mechanical Ventilator 10/03/20 08:00 99.8 100 18 111/62 (78) 100 10/03/20 08:00 101 10/03/20 08:00 40 10/03/20 07:00 100 19 114/65 (81) 100 10/03/20 06:56 95 17 40 10/03/20 06:00 99 16 122/65 (84) 100 10/03/20 05:00 97 16 100/63 (75) 100 10/03/20 04:00 114 10/03/20 04:00 117 16 97/53 (68) 100 12/21/20 04:00 40 10/03/20 04:00 Mechanical Ventilator 10/03/20 03:54 100.4 10/03/20 03:14 118 16 40 10/03/20 03:00 102.4 121 18 131/81 (98) 100 10/03/20 02:00 98 16 152/68 (96) 100 10/03/20 01:00 101.5 94 16 106/58 (74) 100 10/03/20 00:00 Mechanical Ventilator 10/03/20 00:00 100.5 100 17 114/66 (82) 100 10/02/20 23:22 89 16 40 10/02/20 23:00 101.1 97 16 92/53 (66) 100 10/02/20 22:18 101.5 10/02/20 22:00 107 16 107/57 (74) 100 10/02/20 21:30 104 16 111/58 (75) 100 10/02/20 21:00 99 16 116/62 (80) 100 10/02/20 20:00 40 10/02/20 20:00 102.5 93 16 107/63 (78) 100 10/02/20 20:00 Mechanical Ventilator 10/02/20 20:00 93 10/02/20 19:04 107 16 40 10/02/20 19:00 100 16 130/50 (76) 100 10/02/20 18:00 92 16 111/60 (77) 100 10/02/20 17:00 80 16 108/58 (75) 100 HEENT: atraumatic Heart: HR/BP stable Abdomen: soft, non-tender, active bowel sounds Micro: Microbiology Date/Time Source Procedure Growth Status 09/30/20 16:40 Blood Blood Culture - Preliminary NO GROWTH AFTER 48 HOURS Resulted 09/30/20 16:20 Blood Blood Culture - Preliminary NO GROWTH AFTER 48 HOURS Resulted Accucheck: 212 Critical Care - Subjective ROS Limited/Unobtainable: Yes Condition: critical EKG Rhythm: Sinus Rhythm FI02: 40 Vent Support Breath Rate: 16 Vent Support Mode: AC Vent Tidal Volume: 600 Sputum Amount: Small PEEP: 0.0 PIP: 28 Tube Feeding Amount: 30 I&O: Intake and Output 10/02/20 10/03/20 19:00 07:00 Intake Total 1225 ml 760 ml Output Total 1165 ml 745 ml Balance 60 ml 15 ml Intake Free Water 100 ml 100 ml IV Total 765 ml 300 ml Tube Feeding 360 ml 200 ml Other 160 ml Output Urine Total 1165 ml 745 ml CXR: unchanged ET-Tube: 7.0 ET Position: 23 Labs: Laboratory Tests Test 10/02/20 21:16 10/03/20 06:40 10/03/20 07:50 POC Whole Blood Glucose 302 MG/DL (74-106) H White Blood Count 11.2 K/UL (4.8-10.8) H Red Blood Count 3.72 M/UL (4.70-6.10) L Hemoglobin 9.8 G/DL (14.2-18.0) L Hematocrit 31.3 % (42.0-52.0) L Mean Corpuscular Volume 84 FL (80-99) Mean Corpuscular Hemoglobin 26.3 PG (27.0-31.0) L Mean Corpuscular Hemoglobin Concent 31.2 G/DL (32.0-36.0) L Red Cell Distribution Width 16.1 % (11.6-14.8) H Platelet Count 326 K/UL (150-450) Mean Platelet Volume 11.2 FL (6.5-10.1) H Neutrophils (%) (Auto) 75.4 % (45.0-75.0) H Lymphocytes (%) (Auto) 18.1 % (20.0-45.0) L Monocytes (%) (Auto) 4.7 % (1.0-10.0) Eosinophils (%) (Auto) 1.4 % (0.0-3.0) Basophils (%) (Auto) 0.4 % (0.0-2.0) Sodium Level 150 MMOL/L (136-145) H Potassium Level 3.4 MMOL/L (3.5-5.1) L Chloride Level 117 MMOL/L (98-107) H Carbon Dioxide Level 25 MMOL/L (21-32) Anion Gap 8 mmol/L (5-15) Blood Urea Nitrogen 18 mg/dL (7-18) Creatinine 1.5 MG/DL (0.55-1.30) H Estimat Glomerular Filtration Rate 54.7 mL/min (>60) Glucose Level 244 MG/DL (74-106) H Calcium Level 9.2 MG/DL (8.5-10.1) Phosphorus Level 2.4 MG/DL (2.5-4.9) L Magnesium Level 2.0 MG/DL (1.8-2.4) Total Bilirubin 0.2 MG/DL (0.2-1.0) Direct Bilirubin < 0.1 MG/DL (0.0-0.3) Aspartate Amino Transf (AST/SGOT) 18 U/L (15-37) Alanine Aminotransferase (ALT/SGPT) 14 U/L (12-78) Alkaline Phosphatase 153 U/L (46-116) H Total Protein 7.3 G/DL (6.4-8.2) Albumin 1.6 G/DL (3.4-5.0) L Vancomycin Level Trough 19.8 ug/mL (5.0-12.0) H Arterial Blood pH 7.454 (7.350-7.450) Arterial Blood Partial Pressure CO2 32.6 mmHg (35.0-45.0) L Arterial Blood Partial Pressure O2 110.7 mmHg (75.0-100.0) H Arterial Blood HCO3 22.4 mmol/L (22.0-26.0) Arterial Blood Oxygen Saturation 97.5 % (95-100) Arterial Blood Base Excess -1.1 (-2-2) Raz Test Positive Latanya Mckeon MD Oct 03, 2020 16:06
--- NOTE | 2020-10-03 16:28 | Infectious Diseases Prog Note ---
Assessment/Plan 80yo M with: CONS bacteremia, recurrent 09/24 BCx 2/2 +CONS 09/25 BCx neg 09/28 BCx +CONS 09/30 BCx NTD Sepsis, septic shock GPC bacteremia UTI 2/2 ESBL P.mirabilis Pneumonia 2/2 ESBL P.mirabilis Febrile to 105, improving Leukocytosis to 15, improving 09/24 BCx 2/2 CONS UA 20-30 WBC, UCx ESBL P.mirabilis COVID rapid test neg, PCR neg CXR: 1. Coarse bibasilar interstitial lung markings, may represent atypical infectious process such as viral pneumonia versus pulmonary edema. 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: No roving changer 2 days 09/28 C.dif neg 09/28 BCx +GPCs (see above) Resp cx +ESBL P.mirabilis 09/29 COVID PCR neg 10/03 CXR: Slightly worsened bilateral basilar infiltrates, over one day Cr 2.0, improving Plan: Start meropenem #3 (abx d #9) for ESBL P.mirabilis UTI/pna (can sometimes have increased MICs to erta, but S-audra) Cont vanco IV #4 given BCx +CONS CT chest/abd/pelvis given going fevers despite broad abx F/u repeat BCx 09/30 - NTD Trend WBC Trend Cr 10/01 SP erta #6 09/25 SP amikacin and vanco x1 Monitor CBC/CMP Monitor temp curve, hemodynamics Monitor resp status D/w RN Thank you for this consult. [facility] will continue to follow. Subjective Allergies: Coded Allergies: No Known Allergies (Unverified , 08/27/19) Ongoing fevers to 102 Sedated on vent WBC 11, stable Objective Last 24 Hour Vital Signs Date Time Temp Pulse Resp B/P (MAP) Pulse Ox O2 Delivery O2 Flow Rate FiO2 10/03/20 16:00 40 10/03/20 16:00 Mechanical Ventilator 10/03/20 16:00 93 17 107/64 (78) 100 10/03/20 15:50 90 18 40 10/03/20 15:00 98.7 88 16 110/64 (79) 100 10/03/20 14:00 96 18 104/61 (75) 100 10/03/20 13:00 98 18 109/53 (71) 100 10/03/20 12:35 101.0 10/03/20 12:00 Mechanical Ventilator 10/03/20 12:00 100.5 100 18 104/69 (81) 97 10/03/20 12:00 40 10/03/20 12:00 113 10/03/20 12:00 40 10/03/20 12:00 Mechanical Ventilator 10/03/20 11:10 114 20 40 10/03/20 11:00 100 17 122/68 (86) 100 10/03/20 10:00 100 17 108/72 (84) 100 10/03/20 09:00 100 17 114/66 (82) 100 10/03/20 08:00 Mechanical Ventilator 10/03/20 08:00 99.8 100 18 111/62 (78) 100 10/03/20 08:00 101 10/03/20 08:00 40 10/03/20 07:00 100 19 114/65 (81) 100 10/03/20 06:56 95 17 40 10/03/20 06:00 99 16 122/65 (84) 100 10/03/20 05:00 97 16 100/63 (75) 100 10/03/20 04:00 114 10/03/20 04:00 117 16 97/53 (68) 100 10/03/20 04:00 40 10/03/20 04:00 Mechanical Ventilator 10/03/20 03:54 100.4 10/03/20 03:14 118 16 40 10/03/20 03:00 102.4 121 18 131/81 (98) 100 10/03/20 02:00 98 16 152/68 (96) 100 10/03/20 01:00 101.5 94 16 106/58 (74) 100 10/03/20 00:00 Mechanical Ventilator 10/03/20 00:00 100.5 100 17 114/66 (82) 100 10/02/20 23:22 89 16 40 10/02/20 23:00 101.1 97 16 92/53 (66) 100 10/02/20 22:18 101.5 10/02/20 22:00 107 16 107/57 (74) 100 10/02/20 21:30 104 16 111/58 (75) 100 10/02/20 21:00 99 16 116/62 (80) 100 12/20/20 20:00 40 10/02/20 20:00 102.5 93 16 107/63 (78) 100 10/02/20 20:00 Mechanical Ventilator 10/02/20 20:00 93 10/02/20 19:04 107 16 40 10/02/20 19:00 100 16 130/50 (76) 100 10/02/20 18:00 92 16 111/60 (77) 100 10/02/20 17:00 80 16 108/58 (75) 100 Height (Feet): 5 Height (Inches): 10.00 Weight (Pounds): 180 Gen: NAD HEENT: NCAT Pulm: BL chest rise Abd: Non-distended Ext: No c/c/e Skin: No visible rashes Neuro: Awake Lines: R fem CVC Microbiology Date/Time Source Procedure Growth Status 09/30/20 16:40 Blood Blood Culture - Preliminary NO GROWTH AFTER 48 HOURS Resulted Laboratory Tests Test 10/02/20 21:16 10/03/20 06:40 10/03/20 07:50 POC Whole Blood Glucose 302 MG/DL (74-106) H White Blood Count 11.2 K/UL (4.8-10.8) H Red Blood Count 3.72 M/UL (4.70-6.10) L Hemoglobin 9.8 G/DL (14.2-18.0) L Hematocrit 31.3 % (42.0-52.0) L Mean Corpuscular Volume 84 FL (80-99) Mean Corpuscular Hemoglobin 26.3 PG (27.0-31.0) L Mean Corpuscular Hemoglobin Concent 31.2 G/DL (32.0-36.0) L Red Cell Distribution Width 16.1 % (11.6-14.8) H Platelet Count 326 K/UL (150-450) Mean Platelet Volume 11.2 FL (6.5-10.1) H Neutrophils (%) (Auto) 75.4 % (45.0-75.0) H Lymphocytes (%) (Auto) 18.1 % (20.0-45.0) L Monocytes (%) (Auto) 4.7 % (1.0-10.0) Eosinophils (%) (Auto) 1.4 % (0.0-3.0) Basophils (%) (Auto) 0.4 % (0.0-2.0) Sodium Level 150 MMOL/L (136-145) H Potassium Level 3.4 MMOL/L (3.5-5.1) L Chloride Level 117 MMOL/L (98-107) H Carbon Dioxide Level 25 MMOL/L (21-32) Anion Gap 8 mmol/L (5-15) Blood Urea Nitrogen 18 mg/dL (7-18) Creatinine 1.5 MG/DL (0.55-1.30) H Estimat Glomerular Filtration Rate 54.7 mL/min (>60) Glucose Level 244 MG/DL (74-106) H Calcium Level 9.2 MG/DL (8.5-10.1) Phosphorus Level 2.4 MG/DL (2.5-4.9) L Magnesium Level 2.0 MG/DL (1.8-2.4) Total Bilirubin 0.2 MG/DL (0.2-1.0) Direct Bilirubin < 0.1 MG/DL (0.0-0.3) Aspartate Amino Transf (AST/SGOT) 18 U/L (15-37) Alanine Aminotransferase (ALT/SGPT) 14 U/L (12-78) Alkaline Phosphatase 153 U/L (46-116) H Total Protein 7.3 G/DL (6.4-8.2) Albumin 1.6 G/DL (3.4-5.0) L Vancomycin Level Trough 19.8 ug/mL (5.0-12.0) H Arterial Blood pH 7.454 (7.350-7.450) Arterial Blood Partial Pressure CO2 32.6 mmHg (35.0-45.0) L Arterial Blood Partial Pressure O2 110.7 mmHg (75.0-100.0) H Arterial Blood HCO3 22.4 mmol/L (22.0-26.0) Arterial Blood Oxygen Saturation 97.5 % (95-100) Arterial Blood Base Excess -1.1 (-2-2) Raz Test Positive Current Medications Medications (Trade) Dose Ordered Sig/Debi Route PRN Reason Start Time Stop Time Status Last Admin Dose Admin Acetaminophen (Tylenol) 650 mg Q4H PRN GT FEVER 10/03/20 01:15 11/02/20 01:14 10/03/20 12:05 Chlorhexidine Gluconate (Jazmin-Hex 2%) 1 applic DAILY@2000 TOPIC 09/26/20 20:00 12/25/20 19:59 10/02/20 21:07 Dextrose (Dextrose 50%) 25 ml Q30M PRN IV Hypoglycemia 09/25/20 15:30 12/24/20 15:29 Dextrose (Dextrose 50%) 50 ml Q30M PRN IV Hypoglycemia 09/25/20 15:30 12/24/20 15:29 Heparin Sodium (Porcine) (Heparin 5000 units/ml) 5,000 units EVERY 12 HOURS SUBQ 09/25/20 09:00 11/09/20 08:59 10/03/20 08:36 Insulin Aspart (NovoLOG) BEFORE MEALS AND HS SUBQ 09/25/20 16:30 12/24/20 16:29 10/03/20 12:13 Meropenem 1 gm/ Sodium Chloride 55 ml @ 110 mls/hr Q8H IVPB 10/01/20 10:00 10/06/20 09:59 10/03/20 10:00 Midodrine (Pro-Amatine) 10 mg Q8HR GT 09/30/20 14:00 12/29/20 13:59 10/03/20 13:26 Ondansetron HCl (Zofran) 4 mg Q6H PRN IVP Nausea & Vomiting 09/25/20 00:15 10/25/20 00:14 Pantoprazole (Protonix) 40 mg Q12HR IVP 09/25/20 21:00 10/25/20 08:59 10/03/20 08:35 Polyethylene Glycol (Miralax) 17 gm DAILYPRN PRN ORAL Constipation 09/25/20 00:15 10/25/20 00:14 Potassium Phosphate 20 mm/ Sodium Chloride 281.6667 ml @ 46.944 m... ONCE ONCE IV 10/03/20 11:00 10/03/20 16:59 10/03/20 11:16 Sodium Chloride 1,000 ml @ 50 mls/hr Q20H IV 10/01/20 09:15 10/31/20 09:14 10/03/20 02:04 Vancomycin HCl (Vanco pharmacy to dose) 1 ea DAILY PRN MISC Per rx protocol 09/30/20 13:45 10/30/20 13:44 Vancomycin HCl 500 mg/Dextrose 110 ml @ 110 mls/hr Q12H IVPB 10/01/20 20:00 10/06/20 19:59 10/03/20 08:35 Marixa Oliva M.D. Oct 03, 2020 16:28
--- NOTE | 2020-10-03 17:49 | Surgery Progress Note ---
Surgery Progress Note Subjective Symptoms: improved, tolerating diet, BM Objective Last 24 Hour Vital Signs Date Time Temp Pulse Resp B/P (MAP) Pulse Ox O2 Delivery O2 Flow Rate FiO2 10/03/20 17:00 106 23 112/64 (80) 100 10/03/20 16:00 108 10/03/20 16:00 40 10/03/20 16:00 Mechanical Ventilator 10/03/20 16:00 93 17 107/64 (78) 100 10/03/20 15:50 90 18 40 10/03/20 15:00 98.7 88 16 110/64 (79) 100 10/03/20 14:00 96 18 104/61 (75) 100 10/03/20 13:00 98 18 109/53 (71) 100 10/03/20 12:35 101.0 10/03/20 12:00 Mechanical Ventilator 10/03/20 12:00 100.5 100 18 104/69 (81) 97 10/03/20 12:00 40 10/03/20 12:00 113 10/03/20 12:00 40 10/03/20 12:00 Mechanical Ventilator 10/03/20 11:10 114 20 40 10/03/20 11:00 100 17 122/68 (86) 100 10/03/20 10:00 100 17 108/72 (84) 100 10/03/20 09:00 100 17 114/66 (82) 100 10/03/20 08:00 Mechanical Ventilator 10/03/20 08:00 99.8 100 18 111/62 (78) 100 10/03/20 08:00 101 10/03/20 08:00 40 10/03/20 07:00 100 19 114/65 (81) 100 10/03/20 06:56 95 17 40 10/03/20 06:00 99 16 122/65 (84) 100 10/03/20 05:00 97 16 100/63 (75) 100 10/03/20 04:00 114 10/03/20 04:00 117 16 97/53 (68) 100 10/03/20 04:00 40 10/03/20 04:00 Mechanical Ventilator 10/03/20 03:54 100.4 10/03/20 03:14 118 16 40 10/03/20 03:00 102.4 121 18 131/81 (98) 100 10/03/20 02:00 98 16 152/68 (96) 100 10/03/20 01:00 101.5 94 16 106/58 (74) 100 10/03/20 00:00 Mechanical Ventilator 10/03/20 00:00 100.5 100 17 114/66 (82) 100 10/02/20 23:22 89 16 40 10/02/20 23:00 101.1 97 16 92/53 (66) 100 10/02/20 22:18 101.5 10/02/20 22:00 107 16 107/57 (74) 100 10/02/20 21:30 104 16 111/58 (75) 100 10/02/20 21:00 99 16 116/62 (80) 100 10/02/20 20:00 40 10/02/20 20:00 102.5 93 16 107/63 (78) 100 10/02/20 20:00 Mechanical Ventilator 10/02/20 20:00 93 10/02/20 19:04 107 16 40 10/02/20 19:00 100 16 130/50 (76) 100 10/02/20 18:00 92 16 111/60 (77) 100 I&O Intake and Output 10/02/20 10/03/20 19:00 07:00 Intake Total 1225 ml 760 ml Output Total 1165 ml 745 ml Balance 60 ml 15 ml Intake Free Water 100 ml 100 ml IV Total 765 ml 300 ml Tube Feeding 360 ml 200 ml Other 160 ml Output Urine Total 1165 ml 745 ml Dressing: saturated Cardiovascular: RSR Respiratory: decreased breath sounds Abdomen: non-tender, present bowel sounds, non-distended Extremities: edema, no tenderness, no cyanosis Laboratory Tests Test 10/02/20 21:16 10/03/20 06:40 10/03/20 07:50 POC Whole Blood Glucose 302 MG/DL (74-106) H White Blood Count 11.2 K/UL (4.8-10.8) H Red Blood Count 3.72 M/UL (4.70-6.10) L Hemoglobin 9.8 G/DL (14.2-18.0) L Hematocrit 31.3 % (42.0-52.0) L Mean Corpuscular Volume 84 FL (80-99) Mean Corpuscular Hemoglobin 26.3 PG (27.0-31.0) L Mean Corpuscular Hemoglobin Concent 31.2 G/DL (32.0-36.0) L Red Cell Distribution Width 16.1 % (11.6-14.8) H Platelet Count 326 K/UL (150-450) Mean Platelet Volume 11.2 FL (6.5-10.1) H Neutrophils (%) (Auto) 75.4 % (45.0-75.0) H Lymphocytes (%) (Auto) 18.1 % (20.0-45.0) L Monocytes (%) (Auto) 4.7 % (1.0-10.0) Eosinophils (%) (Auto) 1.4 % (0.0-3.0) Basophils (%) (Auto) 0.4 % (0.0-2.0) Sodium Level 150 MMOL/L (136-145) H Potassium Level 3.4 MMOL/L (3.5-5.1) L Chloride Level 117 MMOL/L (98-107) H Carbon Dioxide Level 25 MMOL/L (21-32) Anion Gap 8 mmol/L (5-15) Blood Urea Nitrogen 18 mg/dL (7-18) Creatinine 1.5 MG/DL (0.55-1.30) H Estimat Glomerular Filtration Rate 54.7 mL/min (>60) Glucose Level 244 MG/DL (74-106) H Calcium Level 9.2 MG/DL (8.5-10.1) Phosphorus Level 2.4 MG/DL (2.5-4.9) L Magnesium Level 2.0 MG/DL (1.8-2.4) Total Bilirubin 0.2 MG/DL (0.2-1.0) Direct Bilirubin < 0.1 MG/DL (0.0-0.3) Aspartate Amino Transf (AST/SGOT) 18 U/L (15-37) Alanine Aminotransferase (ALT/SGPT) 14 U/L (12-78) Alkaline Phosphatase 153 U/L (46-116) H Total Protein 7.3 G/DL (6.4-8.2) Albumin 1.6 G/DL (3.4-5.0) L Vancomycin Level Trough 19.8 ug/mL (5.0-12.0) H Arterial Blood pH 7.454 (7.350-7.450) Arterial Blood Partial Pressure CO2 32.6 mmHg (35.0-45.0) L Arterial Blood Partial Pressure O2 110.7 mmHg (75.0-100.0) H Arterial Blood HCO3 22.4 mmol/L (22.0-26.0) Arterial Blood Oxygen Saturation 97.5 % (95-100) Arterial Blood Base Excess -1.1 (-2-2) Raz Test Positive Plan Problems: (1) Hypoxia (2) Severe sepsis Assessment & Plan: leukocytosis lactic acidosis anemia renal insufficiency on support in ICU dressings changed and care plan initiated cont abx trend labs if fluids am imaging ordered Non-Blanchable erythema noted to R and L earlobes. Erythematous, scaly pimple- like rash,some of which are scaly and others small papules noted to R and L axillae, upper R and L chest and back ,R and L groin areas. Pt observed to persistently scratch affected areas described. Incontinence Associated Dermatitis Buttocks, R and L Ischial tuberosities are erythematous,denuded with shearing and scattered satellite lesions. Per staff pt frequently removes or dislodges Condom cath. R Heel is boggy with non-blanchable erythema. L Heel is boggy with Non-Blanchable erythema. Pt presented on admission with Multiple Pressure Injuries. Sacral DTPI which extends into R and L Gluteal cheeks and is partially opened upper R gluteus (L)14cm x (W)15cm. DTPI noted within hypertrophic scar from previous Pressure injury. Base of wound is purpuric at rm cleft ,and indurated. Non-Blanchable erythema with additional shearing periwound. An area of induration with darker skin tone noted to L Ischium. Darker skin tone without induration R Ischium. Scrotum is erythematous and swollen. DTPI L Heel and Plantar L Heel(L)4cm x (W)3.5cm. Base of Pressure Injury roca colored Blister with darker center. Periwound is fluctuant with non-Blanchable erythema. DTPI R Heel (L)2.7cm x (W)4cm. Non-Blanchable erythema without induration/fluctuance R Hallux. Non-Blanchable erythema without induration/fluctuance L Hallux. Tx.Plan:Apply Cavilon Skin Barrier to both R and L ears.(Pad Oxygen Tubing as Needed.) Apply Moisture Barrier Paste to bilat groin and bilat ischial tuberosities with eqach Incontinence care. Apply Cavilon Skin Barrier to both heels. Cover each heel with Optifoam drsg. Change every 7 days and prn. Cleanse Sacral wound with Saline. Apply Therahoney. Apply Moisture Barrier Paste periwound. Cover with Optifoam drsg. Change every 3 days and prn. Apply Moisture Barrier Paste to Scrotum,R and L ischial tuberosities with each incontinence care. Apply Cavilon Skin Barrier to R and L Hallux. Cover each site with Optifoam drsgs. Change every 7 days and prn. Reposition at least every 2hours or as tolerated. Off-load heels with pillow. APM/ALEK Mattress overlay improving cont current care tube site okay DAILY ESTIMATED NEEDS: Needs based on Critical care, DM, Wound/ 62.73kg 22-30 kcals/kg 7360-1566 total kcals 1.25-2 g protein/kg 78-125 g total protein 25-30 mL/kg 3737-6098 total fluid mLs NUTRITION DIAGNOSIS: * Swallowing difficulty R/T dysphagia as evidenced by Pt is GT dep, currently orally intubated, off pressor support, on GT feeds. CURRENT TF:NPO ENTERAL NUTRITION RECOMMENDATIONS: Glucerna 1.2 @ 55ml/hr x 24 hrs to provide 1320ml, 1584kcal, 79g prot, 1063ml free water * Maintain current TF: meets 100 % est kcal/prot needs * HOB over 30 degrees * H2O flush of 180ml q 6hrs ADDITIONAL RECOMMENDATIONS: * Per SNF: HT=5'7" WT= 138lbs (as of Sep 13, 2020) * Monitor hemodynamic stability: NE @ 8mcg-> now off * Wound healing: TF rec @ goal provides 100% RDI add Vit C 500mg QD + Terrance BID via TF * Monitor lytes, replete as needed * Rec long acting insulin for improved BG control . (3) Dehydration (4) Hypernatremia (5) Clostridium difficile colitis (6) Staphylococcus aureus bacteremia (7) Hip fracture, left (8) Diabetes mellitus (9) History of hypertension (10) Severe protein-calorie malnutrition (11) Acute encephalopathy (12) Pressure Ulcer Of Sacral Region, Unstageable (13) Feeding by G-tube (14) Abdominal distention (15) Multiple drug resistant organism (MDRO) culture positive (16) Sepsis (17) History of CVA (cerebrovascular accident) (18) Parkinson disease James Breen Oct 03, 2020 17:49
[2020-10-03] MEDS: Ascorbic Acid 500mg tab GT SCH (18:19)
--- NOTE | 2020-10-03 19:37 | Internal Med Progress Note ---
Subjective Date of Service: Oct 03, 2020 Physician Name Tello Cobb Attending Physician Cirilo Rome MD Current Medications Medications (Trade) Dose Ordered Sig/Debi Route PRN Reason Start Time Stop Time Status Last Admin Dose Admin Acetaminophen (Tylenol) 650 mg Q4H PRN GT FEVER 10/03/20 01:15 11/02/20 01:14 10/03/20 18:29 Ascorbic Acid (Vitamin C) 250 mg TWICE A DAY GT 10/03/20 18:00 11/02/20 17:59 10/03/20 18:19 Chlorhexidine Gluconate (Jazmin-Hex 2%) 1 applic DAILY@1999 TOPIC 09/26/20 20:00 12/25/20 19:59 10/02/20 21:07 Dextrose (Dextrose 50%) 25 ml Q30M PRN IV Hypoglycemia 09/25/20 15:30 12/24/20 15:29 Dextrose (Dextrose 50%) 50 ml Q30M PRN IV Hypoglycemia 09/25/20 15:30 12/24/20 15:29 Heparin Sodium (Porcine) (Heparin 5000 units/ml) 5,000 units EVERY 12 HOURS SUBQ 09/25/20 09:00 11/09/20 08:59 10/03/20 08:36 Insulin Aspart (NovoLOG) BEFORE MEALS AND HS SUBQ 09/25/20 16:30 12/24/20 16:29 10/03/20 16:52 Meropenem 1 gm/ Sodium Chloride 55 ml @ 110 mls/hr Q8H IVPB 10/01/20 10:00 10/06/20 09:59 10/03/20 17:03 Midodrine (Pro-Amatine) 10 mg Q8HR GT 09/30/20 14:00 12/29/20 13:59 10/03/20 13:26 Ondansetron HCl (Zofran) 4 mg Q6H PRN IVP Nausea & Vomiting 09/25/20 00:15 10/25/20 00:14 Pantoprazole (Protonix) 40 mg Q12HR IVP 09/25/20 21:00 10/25/20 08:59 10/03/20 08:35 Polyethylene Glycol (Miralax) 17 gm DAILYPRN PRN ORAL Constipation 09/25/20 00:15 10/25/20 00:14 Sodium Chloride 1,000 ml @ 50 mls/hr Q20H IV 10/01/20 09:15 10/31/20 09:14 10/03/20 02:04 Vancomycin HCl (Vanco pharmacy to dose) 1 ea DAILY PRN MISC Per rx protocol 09/30/20 13:45 10/30/20 13:44 Vancomycin HCl 500 mg/Dextrose 110 ml @ 110 mls/hr Q12H IVPB 10/01/20 20:00 10/06/20 19:59 10/03/20 08:35 Allergies: Coded Allergies: No Known Allergies (Unverified , 08/27/19) ROS Limited/Unobtainable: Yes Subjective 80 YO M admitted with respiratory failure. Intubated and sedated. Cover for Int Med-DR Rome. ICU Objective Last Vital Signs Date Time Temp Pulse Resp B/P (MAP) Pulse Ox O2 Delivery O2 Flow Rate FiO2 10/03/20 19:22 63 16 40 10/03/20 19:00 80/45 (57) 100 10/03/20 16:00 Mechanical Ventilator 10/03/20 15:00 98.7 09/28/20 16:00 40.0 Laboratory Tests Test 10/02/20 21:16 10/03/20 06:40 10/03/20 07:50 POC Whole Blood Glucose 302 MG/DL (74-106) H White Blood Count 11.2 K/UL (4.8-10.8) H Red Blood Count 3.72 M/UL (4.70-6.10) L Hemoglobin 9.8 G/DL (14.2-18.0) L Hematocrit 31.3 % (42.0-52.0) L Mean Corpuscular Volume 84 FL (80-99) Mean Corpuscular Hemoglobin 26.3 PG (27.0-31.0) L Mean Corpuscular Hemoglobin Concent 31.2 G/DL (32.0-36.0) L Red Cell Distribution Width 16.1 % (11.6-14.8) H Platelet Count 326 K/UL (150-450) Mean Platelet Volume 11.2 FL (6.5-10.1) H Neutrophils (%) (Auto) 75.4 % (45.0-75.0) H Lymphocytes (%) (Auto) 18.1 % (20.0-45.0) L Monocytes (%) (Auto) 4.7 % (1.0-10.0) Eosinophils (%) (Auto) 1.4 % (0.0-3.0) Basophils (%) (Auto) 0.4 % (0.0-2.0) Sodium Level 150 MMOL/L (136-145) H Potassium Level 3.4 MMOL/L (3.5-5.1) L Chloride Level 117 MMOL/L (98-107) H Carbon Dioxide Level 25 MMOL/L (21-32) Anion Gap 8 mmol/L (5-15) Blood Urea Nitrogen 18 mg/dL (7-18) Creatinine 1.5 MG/DL (0.55-1.30) H Estimat Glomerular Filtration Rate 54.7 mL/min (>60) Glucose Level 244 MG/DL (74-106) H Calcium Level 9.2 MG/DL (8.5-10.1) Phosphorus Level 2.4 MG/DL (2.5-4.9) L Magnesium Level 2.0 MG/DL (1.8-2.4) Total Bilirubin 0.2 MG/DL (0.2-1.0) Direct Bilirubin < 0.1 MG/DL (0.0-0.3) Aspartate Amino Transf (AST/SGOT) 18 U/L (15-37) Alanine Aminotransferase (ALT/SGPT) 14 U/L (12-78) Alkaline Phosphatase 153 U/L (46-116) H Total Protein 7.3 G/DL (6.4-8.2) Albumin 1.6 G/DL (3.4-5.0) L Vancomycin Level Trough 19.8 ug/mL (5.0-12.0) H Arterial Blood pH 7.454 (7.350-7.450) Arterial Blood Partial Pressure CO2 32.6 mmHg (35.0-45.0) L Arterial Blood Partial Pressure O2 110.7 mmHg (75.0-100.0) H Arterial Blood HCO3 22.4 mmol/L (22.0-26.0) Arterial Blood Oxygen Saturation 97.5 % (95-100) Arterial Blood Base Excess -1.1 (-2-2) Raz Test Positive Intake and Output 10/02/20 10/03/20 19:00 07:00 Intake Total 1225 ml 760 ml Output Total 1165 ml 745 ml Balance 60 ml 15 ml Intake Free Water 100 ml 100 ml IV Total 765 ml 300 ml Tube Feeding 360 ml 200 ml Other 160 ml Output Urine Total 1165 ml 745 ml Objective PHYSICAL EXAMINATION: VITAL SIGNS: Temperature 103.5 degrees Fahrenheit, respiratory rate 24, pulse 138, blood pressure 130/83, pulse ox was 100% on mechanical ventilation with 60% FiO2. GENERAL: The patient is well-developed and well-nourished male, who is intubated and sedated. HEENT: Eyes, pupils are equal responsive to light and accommodation. Extraocular movements are intact. NECK: Supple without lymphadenopathy. CHEST: Mech vent; Decreased breath sounds bilateral bases, otherwise without wheezes or rales. CARDIOVASCULAR: Regular rate. S1 and S2 normal without murmurs, rubs, or gallops. ABDOMEN: Soft, nontender, and nondistended. Positive bowel sounds. No evidence of hepatosplenomegaly. Currently, no rebound or guarding noted. EXTREMITIES: Negative for clubbing, cyanosis, or edema. RECTAL/GENITAL: Not performed. NEUROLOGIC: Unable to assess Assessment/Plan Assessment/Plan ASSESSMENT: This is a 80-year-old male. 1. Respiratory failure. 2. Bilateral pneumonia. 3. Hypertension. 4. Diabetes type 2. 5. Hypercholesterolemia. 6. Parkinson disease. 7. COVID-19 negative. 8. Ulcerative proctitis. 9. Benign prostatic hypertrophy. 10. Gastroesophageal reflux disease. 11. Urinary tract infection=proteus mirabilis 12. Sepsis=coag neg staph TREATMENT: 1. Pneumonia/respiratory failure. Infectious diseases = Drs. Harris/Pj. A Pulmonary/Critical care= Dr. Latanya Mckeon. The patient is currently intubated on the mechanical ventilator in the intensive care unit. ABX= vancomycin, amikacin, and ertapenem. Follow recommendation of Infectious Diseases. Await sputumcultures. 2. Urinary tract infection. ABX= Meropenem and vancomycin. An Infectious Disease consultation has been obtained with Dr. Harris. 3. Hypertension. The patient is currently hypotensive. 4. Diabetes type 2. NovoLog sliding scale has been instituted. 5. Hypercholesterolemia. Continue simvastatin as above. 6. Parkinson disease. 7. Ulcerative proctitis. 8. Benign prostatic hypertrophy. 9. Gastroesophageal reflux disease. 10. Dysphagia. The patient is status post PEG placement. Tello Cobb MD Oct 03, 2020 19:37
[2020-10-03] MEDS: Dyna-Hex 2% Top Sol 2oz TOPIC SCH (20:46)
[2020-10-04] VITALS (24 sets, daily range): BP systolic 78–136; BP diastolic 41–83
[2020-10-04] MEDS: Acetaminophen 650mg/20.3ml GT PRN ×2 (00:37→05:56)
[2020-10-04] MEDS: Meropenem 1 GM in NS 55 ML IVPB SCH ×3 (02:07→17:32)
[2020-10-04] MEDS: Midodrine 10mg tab GT SCH ×3 (05:56→21:06)
[2020-10-04] MEDS: NovoLOG Insulin Flexpen SUBQ SCH ×4 (05:58→17:35)
[2020-10-04] MEDS: Pantoprazole Inj IVP SCH ×2 (08:58→21:02)
[2020-10-04] MEDS: Ascorbic Acid 500mg tab GT SCH ×2 (08:58→17:31)
[2020-10-04] MEDS: Heparin 5000 units/ml inj SUBQ SCH ×2 (08:59→21:03)
--- NOTE | 2020-10-04 10:38 | Pulmonolgy Critical Care Note ---
Critical Care - Asmt/Plan Problems: (1) Acute respiratory failure (2) Severe sepsis (3) Diabetes mellitus (4) Severe protein-calorie malnutrition (5) History of hypertension (6) History of CVA (cerebrovascular accident) (7) Parkinson disease (8) Feeding by G-tube Respiratory: monitor respiratory rate, adjust FIO2, CXR Cardiac: continue pressors, continue to monitor HR/BP Renal: F/U I&O, keep IV fluid, check electrolytes Infectious Disease: check cultures Gastrointestinal: continue feedings/current rate Endocrine: monitor blood sugar, continue sliding scale insulin Hematologic: monitor H/H, transfuse if hgb<8.5 Neurologic: PRN Ativan, keep patient comfortable Prophylaxis: Heparin Time Spent (Minutes): 40 Notes Reviewed: bellstaff, cardio, renal Discussed with: nurses, consultants, case finishersleep manager - Objective Last 24 Hour Vital Signs Date Time Temp Pulse Resp B/P (MAP) Pulse Ox O2 Delivery O2 Flow Rate FiO2 10/04/20 08:00 40 10/04/20 07:06 87 16 40 10/04/20 07:00 88 16 99/56 (70) 100 10/04/20 06:26 100.1 10/04/20 06:00 86 16 101/55 (70) 100 10/04/20 05:00 94 16 99/60 (73) 100 10/04/20 04:00 100 10/04/20 04:00 Mechanical Ventilator 10/04/20 04:00 40 10/04/20 04:00 101.8 101 16 96/46 (63) 100 10/04/20 03:46 94 16 40 10/04/20 03:00 77 16 93/41 (58) 100 10/04/20 02:00 79 16 104/55 (71) 100 10/04/20 01:07 100.3 10/04/20 01:00 95 17 91/46 (61) 100 10/04/20 00:00 40 10/04/20 00:00 95 10/04/20 00:00 Mechanical Ventilator 10/04/20 00:00 100.8 95 21 96/52 (67) 100 10/03/20 23:33 100 16 40 10/03/20 23:00 89 21 97/65 (76) 100 10/03/20 22:00 82 18 107/69 (82) 100 10/03/20 21:00 82 16 104/55 (71) 100 10/03/20 20:00 98.3 85 19 89/50 (63) 100 10/03/20 20:00 95 10/03/20 20:00 Mechanical Ventilator 10/03/20 20:00 40 10/03/20 19:22 63 16 40 10/03/20 19:00 97 19 80/45 (57) 100 10/03/20 18:59 99.8 10/03/20 18:00 90 13 105/54 (71) 100 10/03/20 17:00 106 23 112/64 (80) 100 10/03/20 16:00 108 10/03/20 16:00 40 10/03/20 16:00 Mechanical Ventilator 10/03/20 16:00 93 17 107/64 (78) 100 10/03/20 15:50 90 18 40 10/03/20 15:00 98.7 88 16 110/64 (79) 100 10/03/20 14:00 96 18 104/61 (75) 100 10/03/20 13:00 98 18 109/53 (71) 100 10/03/20 12:35 101.0 10/03/20 12:00 Mechanical Ventilator 10/03/20 12:00 100.5 100 18 104/69 (81) 97 10/03/20 12:00 40 10/03/20 12:00 113 10/03/20 12:00 40 10/03/20 12:00 Mechanical Ventilator 10/03/20 11:10 114 20 40 10/03/20 11:00 100 17 122/68 (86) 100 Status: sedated Condition: critical HEENT: atraumatic, normocephalic Lungs: clear, rales, rhonchi Heart: HR/BP stable, HR/BP unstable Abdomen: soft, non-tender Extremities: no C/C/E Accucheck: 328 Critical Care - Subjective ROS Limited/Unobtainable: Yes Condition: critical EKG Rhythm: Sinus Rhythm FI02: 40 Vent Support Breath Rate: 16 Vent Support Mode: AC Vent Tidal Volume: 600 Sputum Amount: Moderate PEEP: 0.0 PIP: 43 Tube Feeding Amount: 0 I&O: Intake and Output 10/03/20 10/04/20 18:59 06:59 Intake Total 1300.832 ml 690 ml Output Total 730 ml 1677 ml Balance 570.832 ml -987 ml Intake Free Water 100 ml IV Total 960.832 ml 450 ml Tube Feeding 240 ml 240 ml Output Urine Total 730 ml 1377 ml Stool Total 300 ml CXR: Slightly worsened bilateral basilar infiltrates ET-Tube: 7.0 ET Position: 23 Labs: Laboratory Tests Test 10/04/20 10:00 Vancomycin Level Trough Pending Latanya Mckeon MD Oct 04, 2020 10:38
[2020-10-04] MEDS: Vancomycin 500mg/D5W 110ml IVPB SCH ×4 (11:28→20:57)
--- NOTE | 2020-10-04 11:48 | Surgery Progress Note ---
Surgery Progress Note Subjective Additional Comments remains febrile pending labs comfortable appearing weaning well Objective Last 24 Hour Vital Signs Date Time Temp Pulse Resp B/P (MAP) Pulse Ox O2 Delivery O2 Flow Rate FiO2 10/04/20 11:00 94 16 96/66 (76) 100 10/04/20 10:30 85 16 40 10/04/20 10:00 100 19 113/78 (90) 100 10/04/20 09:00 94 18 106/63 (77) 100 10/04/20 08:00 89 10/04/20 08:00 40 10/04/20 08:00 Mechanical Ventilator 10/04/20 08:00 98.4 85 16 105/54 (71) 100 10/04/20 07:06 87 16 40 10/04/20 07:00 88 16 99/56 (70) 100 10/04/20 06:26 100.1 10/04/20 06:00 86 16 101/55 (70) 100 10/04/20 05:00 94 16 99/60 (73) 100 10/04/20 04:00 100 10/04/20 04:00 Mechanical Ventilator 10/04/20 04:00 40 10/04/20 04:00 101.8 101 16 96/46 (63) 100 10/04/20 03:46 94 16 40 10/04/20 03:00 77 16 93/41 (58) 100 10/04/20 02:00 79 16 104/55 (71) 100 10/04/20 01:07 100.3 10/04/20 01:00 95 17 91/46 (61) 100 10/04/20 00:00 40 10/04/20 00:00 95 10/04/20 00:00 Mechanical Ventilator 10/04/20 00:00 100.8 95 21 96/52 (67) 100 10/03/20 23:33 100 16 40 10/03/20 23:00 89 21 97/65 (76) 100 10/03/20 22:00 82 18 107/69 (82) 100 10/03/20 21:00 82 16 104/55 (71) 100 10/03/20 20:00 98.3 85 19 89/50 (63) 100 10/03/20 20:00 95 10/03/20 20:00 Mechanical Ventilator 10/03/20 20:00 40 10/03/20 19:22 63 16 40 10/03/20 19:00 97 19 80/45 (57) 100 10/03/20 18:59 99.8 10/03/20 18:00 90 13 105/54 (71) 100 10/03/20 17:00 106 23 112/64 (80) 100 10/03/20 16:00 108 10/03/20 16:00 40 10/03/20 16:00 Mechanical Ventilator 10/03/20 16:00 93 17 107/64 (78) 100 10/03/20 15:50 90 18 40 10/03/20 15:00 98.7 88 16 110/64 (79) 100 10/03/20 14:00 96 18 104/61 (75) 100 10/03/20 13:00 98 18 109/53 (71) 100 10/03/20 12:35 101.0 10/03/20 12:00 Mechanical Ventilator 10/03/20 12:00 100.5 100 18 104/69 (81) 97 10/03/20 12:00 40 10/03/20 12:00 113 10/03/20 12:00 40 10/03/20 12:00 Mechanical Ventilator I&O Intake and Output 10/03/20 10/04/20 19:00 07:00 Intake Total 1290.832 ml 700 ml Output Total 780 ml 1704 ml Balance 510.832 ml -1004 ml Intake Free Water 100 ml IV Total 910.832 ml 500 ml Tube Feeding 280 ml 200 ml Output Urine Total 780 ml 1404 ml Stool Total 300 ml Dressing: saturated Cardiovascular: RSR Respiratory: decreased breath sounds Abdomen: soft, non-tender, present bowel sounds Extremities: edema, no tenderness, no cyanosis Laboratory Tests Test 10/04/20 10:00 Vancomycin Level Trough 17.5 ug/mL (5.0-12.0) H Plan Problems: (1) Hypoxia (2) Severe sepsis Assessment & Plan: leukocytosis lactic acidosis anemia renal insufficiency on support in ICU dressings changed and care plan initiated cont abx trend labs if fluids am imaging ordered remains febrile cont abx cooling measures Non-Blanchable erythema noted to R and L earlobes. Erythematous, scaly pimple- like rash,some of which are scaly and others small papules noted to R and L axillae, upper R and L chest and back ,R and L groin areas. Pt observed to persistently scratch affected areas described. Incontinence Associated Dermatitis Buttocks, R and L Ischial tuberosities are erythematous,denuded with shearing and scattered satellite lesions. Per staff pt frequently removes or dislodges Condom cath. R Heel is boggy with non-blanchable erythema. L Heel is boggy with Non-Blanchable erythema. Pt presented on admission with Multiple Pressure Injuries. Sacral DTPI which extends into R and L Gluteal cheeks and is partially opened upper R gluteus (L)14cm x (W)15cm. DTPI noted within hypertrophic scar from previous Pressure injury. Base of wound is purpuric at rm cleft ,and indurated. Non-Blanchable erythema with additional shearing periwound. An area of induration with darker skin tone noted to L Ischium. Darker skin tone without induration R Ischium. Scrotum is erythematous and swollen. DTPI L Heel and Plantar L Heel(L)4cm x (W)3.5cm. Base of Pressure Injury roca colored Blister with darker center. Periwound is fluctuant with non-Blanchable erythema. DTPI R Heel (L)2.7cm x (W)4cm. Non-Blanchable erythema without induration/fluctuance R Hallux. Non-Blanchable erythema without induration/fluctuance L Hallux. Tx.Plan:Apply Cavilon Skin Barrier to both R and L ears.(Pad Oxygen Tubing as Needed.) Apply Moisture Barrier Paste to bilat groin and bilat ischial tuberosities with eqach Incontinence care. Apply Cavilon Skin Barrier to both heels. Cover each heel with Optifoam drsg. Change every 7 days and prn. Cleanse Sacral wound with Saline. Apply Therahoney. Apply Moisture Barrier Paste periwound. Cover with Optifoam drsg. Change every 3 days and prn. Apply Moisture Barrier Paste to Scrotum,R and L ischial tuberosities with each incontinence care. Apply Cavilon Skin Barrier to R and L Hallux. Cover each site with Optifoam drsgs. Change every 7 days and prn. Reposition at least every 2hours or as tolerated. Off-load heels with pillow. APM/ALEK Mattress overlay improving cont current care tube site okay DAILY ESTIMATED NEEDS: Needs based on Critical care, DM, Wound/ 62.73kg 22-30 kcals/kg 5428-5874 total kcals 1.25-2 g protein/kg 78-125 g total protein 25-30 mL/kg 5959-7742 total fluid mLs NUTRITION DIAGNOSIS: * Swallowing difficulty R/T dysphagia as evidenced by Pt is GT dep, currently orally intubated, off pressor support, on GT feeds. CURRENT TF:NPO ENTERAL NUTRITION RECOMMENDATIONS: Glucerna 1.2 @ 55ml/hr x 24 hrs to provide 1320ml, 1584kcal, 79g prot, 1063ml free water * Maintain current TF: meets 100 % est kcal/prot needs * HOB over 30 degrees * H2O flush of 180ml q 6hrs ADDITIONAL RECOMMENDATIONS: * Per SNF: HT=5'7" WT= 138lbs (as of Sep 13, 2020) * Monitor hemodynamic stability: NE @ 8mcg-> now off * Wound healing: TF rec @ goal provides 100% RDI add Vit C 500mg QD + Etrrance BID via TF * Monitor lytes, replete as needed * Rec long acting insulin for improved BG control . (3) Dehydration (4) Hypernatremia (5) Clostridium difficile colitis (6) Staphylococcus aureus bacteremia (7) Hip fracture, left (8) Diabetes mellitus (9) History of hypertension (10) Severe protein-calorie malnutrition (11) Acute encephalopathy (12) Pressure Ulcer Of Sacral Region, Unstageable (13) Feeding by G-tube (14) Abdominal distention (15) Multiple drug resistant organism (MDRO) culture positive (16) Sepsis (17) History of CVA (cerebrovascular accident) (18) Parkinson disease James Breen Oct 04, 2020 11:48
--- NOTE | 2020-10-04 13:16 | Nephrology Progress Note ---
Assessment/Plan Problem List: (1) KELLY (acute kidney injury) (2) Dehydration (3) Hypernatremia (4) Severe sepsis (5) History of CVA (cerebrovascular accident) (6) Parkinson disease (7) Acute respiratory failure (8) Elevated lipase Assessment KELLY, Hypernatremia, dehydration, free water deficit Sepsis Acute respiratory failure requiring intubation and mechanical ventilation Diabetes mellitus [id number] GT feeding History of CVA History of hypertension Parkinson's disease Elevated lipase Plan October 04: No CHEM panel was done today. Patient remain intubated on ventilator and full code. We will order labs tomorrow. Continue per consultants. October 03: Discussed with RN. Labs are reviewed. Potassium and phosphate replacement ordered. Continue per consultants. Patient remains full code intubated on ventilator. Serum creatinine up to 1.5. Continue to monitor renal parameters. October 02: Remains in ICU and intubated. Labs reviewed. Serum creatinine 1.3. Serum sodium slightly elevated. Continue to monitor renal parameters and electrolytes. October 01: Seen in ICU. Discussed with RN. No chemistry panel done today. Blood pressure hovering around 100 systolic. Will check labs tomorrow. Continue per consultants. September 30: Labs reviewed. Renal parameters stable. Blood pressure hovering around 90s systolic. We will add midodrine through GT tube. Continue per consultants. September 29: Labs reviewed. Serum creatinine down to 1.3 and electrolytes reviewed. Abnormal electrolytes addressed. Continue per consultants. September 28: Labs reviewed. Creatinine 1.6 unchanged. Hypernatremia persists. Will give 1 L of D5W. Continue to monitor renal parameters and electrolytes. Continue per consultants. September 27: Labs reviewed. Serum sodium lowering. Serum creatinine lowering. Blood sugar somewhat better controlled. Patient continues to be on free water through tube feeding. Continue to monitor renal parameters and electrolytes. Abnormal electrolytes addressed. September 26: IV fluids stopped. Patient receiving free water reviewed NG tube. Patient full code. Intubated on ventilator. Discussed with JOHNNY Christensen. Continue to monitor renal parameters. Serum creatinine lower but abnormal electrolyte persists and was addressed. Previously: IV fluid half-normal saline 125 cc an hour Albumin fluid challenge Monitor electrolytes Monitor renal parameters Hold blood pressure medication since blood pressure low Per orders, per consultants Subjective ROS Limited/Unobtainable: Yes Objective Objective Last 24 Hour Vital Signs Date Time Temp Pulse Resp B/P (MAP) Pulse Ox O2 Delivery O2 Flow Rate FiO2 10/04/20 12:00 97.3 91 16 110/54 (72) 100 10/04/20 12:00 99 10/04/20 12:00 40 10/04/20 11:00 94 16 96/66 (76) 100 10/04/20 10:30 85 16 40 10/04/20 10:00 100 19 113/78 (90) 100 10/04/20 09:00 94 18 106/63 (77) 100 10/04/20 08:00 89 10/04/20 08:00 40 10/04/20 08:00 Mechanical Ventilator 10/04/20 08:00 98.4 85 16 105/54 (71) 100 10/04/20 07:06 87 16 40 10/04/20 07:00 88 16 99/56 (70) 100 10/04/20 06:26 100.1 10/04/20 06:00 86 16 101/55 (70) 100 10/04/20 05:00 94 16 99/60 (73) 100 10/04/20 04:00 100 10/04/20 04:00 Mechanical Ventilator 10/04/20 04:00 40 10/04/20 04:00 101.8 101 16 96/46 (63) 100 10/04/20 03:46 94 16 40 10/04/20 03:00 77 16 93/41 (58) 100 10/04/20 02:00 79 16 104/55 (71) 100 10/04/20 01:07 100.3 10/04/20 01:00 95 17 91/46 (61) 100 10/04/20 00:00 40 10/04/20 00:00 95 10/04/20 00:00 Mechanical Ventilator 10/04/20 00:00 100.8 95 21 96/52 (67) 100 10/03/20 23:33 100 16 40 10/03/20 23:00 89 21 97/65 (76) 100 10/03/20 22:00 82 18 107/69 (82) 100 10/03/20 21:00 82 16 104/55 (71) 100 10/03/20 20:00 98.3 85 19 89/50 (63) 100 10/03/20 20:00 95 10/03/20 20:00 Mechanical Ventilator 10/03/20 20:00 40 10/03/20 19:22 63 16 40 10/03/20 19:00 97 19 80/45 (57) 100 10/03/20 18:59 99.8 10/03/20 18:00 90 13 105/54 (71) 100 10/03/20 17:00 106 23 112/64 (80) 100 10/03/20 16:00 108 10/03/20 16:00 40 10/03/20 16:00 Mechanical Ventilator 10/03/20 16:00 93 17 107/64 (78) 100 10/03/20 15:50 90 18 40 10/03/20 15:00 98.7 88 16 110/64 (79) 100 10/03/20 14:00 96 18 104/61 (75) 100 Intake and Output 10/03/20 10/04/20 19:00 07:00 Intake Total 1290.832 ml 700 ml Output Total 780 ml 1704 ml Balance 510.832 ml -1004 ml Intake Free Water 100 ml IV Total 910.832 ml 500 ml Tube Feeding 280 ml 200 ml Output Urine Total 780 ml 1404 ml Stool Total 300 ml Laboratory Tests 10/04/20 10:00: Vancomycin Level Trough 17.5H Height (Feet): 5 Height (Inches): 10.00 Weight (Pounds): 180 General Appearance: no apparent distress EENT: other - Intubated on ventilator Cardiovascular: tachycardia Respiratory/Chest: decreased breath sounds Abdomen: distended Eddie Nelson MD Oct 04, 2020 13:16
--- NOTE | 2020-10-04 18:13 | Internal Med Progress Note ---
Subjective Date of Service: Oct 04, 2020 Physician Name Tello Cobb Attending Physician Cirilo Rome MD Current Medications Medications (Trade) Dose Ordered Sig/Debi Route PRN Reason Start Time Stop Time Status Last Admin Dose Admin Acetaminophen (Tylenol) 650 mg Q4H PRN GT FEVER 10/03/20 01:15 11/02/20 01:14 10/04/20 05:56 Ascorbic Acid (Vitamin C) 250 mg TWICE A DAY GT 10/03/20 18:00 11/02/20 17:59 10/04/20 17:31 Chlorhexidine Gluconate (Jazmin-Hex 2%) 1 applic DAILY@2000 TOPIC 09/26/20 20:00 12/25/20 19:59 10/03/20 20:46 Dextrose (Dextrose 50%) 25 ml Q30M PRN IV Hypoglycemia 09/25/20 15:30 12/24/20 15:29 Dextrose (Dextrose 50%) 50 ml Q30M PRN IV Hypoglycemia 09/25/20 15:30 12/24/20 15:29 Heparin Sodium (Porcine) (Heparin 5000 units/ml) 5,000 units EVERY 12 HOURS SUBQ 09/25/20 09:00 11/09/20 08:59 10/04/20 08:59 Insulin Aspart (NovoLOG) Q6HR SUBQ 10/04/20 00:00 01/02/21 00:00 10/04/20 17:35 Meropenem 1 gm/ Sodium Chloride 55 ml @ 110 mls/hr Q8H IVPB 10/01/20 10:00 10/06/20 09:59 10/04/20 17:32 Midodrine (Pro-Amatine) 10 mg Q8HR GT 09/30/20 14:00 12/29/20 13:59 10/04/20 13:38 Ondansetron HCl (Zofran) 4 mg Q6H PRN IVP Nausea & Vomiting 09/25/20 00:15 10/25/20 00:14 Pantoprazole (Protonix) 40 mg Q12HR IVP 09/25/20 21:00 10/25/20 08:59 10/04/20 08:58 Polyethylene Glycol (Miralax) 17 gm DAILYPRN PRN ORAL Constipation 09/25/20 00:15 10/25/20 00:14 Sodium Chloride 1,000 ml @ 50 mls/hr Q20H IV 10/01/20 09:15 10/31/20 09:14 10/04/20 05:57 Vancomycin HCl (Vanco pharmacy to dose) 1 ea DAILY PRN MISC Per rx protocol 09/30/20 13:45 10/30/20 13:44 Vancomycin HCl 500 mg/Dextrose 110 ml @ 110 mls/hr Q12H IVPB 10/01/20 20:00 10/06/20 19:59 10/04/20 11:28 Allergies: Coded Allergies: No Known Allergies (Unverified , 08/27/19) ROS Limited/Unobtainable: Yes Subjective 80 YO M admitted with respiratory failure. Intubated and sedated. Cover for Int Med-DR Rome. ICU Objective Last Vital Signs Date Time Temp Pulse Resp B/P (MAP) Pulse Ox O2 Delivery O2 Flow Rate FiO2 10/04/20 17:00 114 21 94/67 (76) 100 10/04/20 16:00 97.3 10/04/20 16:00 Mechanical Ventilator 10/04/20 16:00 40 09/28/20 16:00 40.0 Laboratory Tests Test 10/04/20 10:00 Vancomycin Level Trough 17.5 ug/mL (5.0-12.0) H Intake and Output 10/03/20 10/04/20 19:00 07:00 Intake Total 1290.832 ml 700 ml Output Total 780 ml 1704 ml Balance 510.832 ml -1004 ml Intake Free Water 100 ml IV Total 910.832 ml 500 ml Tube Feeding 280 ml 200 ml Output Urine Total 780 ml 1404 ml Stool Total 300 ml Objective PHYSICAL EXAMINATION: VITAL SIGNS: Temperature 103.5 degrees Fahrenheit, respiratory rate 24, pulse 138, blood pressure 130/83, pulse ox was 100% on mechanical ventilation with 60% FiO2. GENERAL: The patient is well-developed and well-nourished male, who is intubated and sedated. HEENT: Eyes, pupils are equal responsive to light and accommodation. Extraocular movements are intact. NECK: Supple without lymphadenopathy. CHEST: Mech vent; Decreased breath sounds bilateral bases, otherwise without wheezes or rales. CARDIOVASCULAR: Regular rate. S1 and S2 normal without murmurs, rubs, or gallops. ABDOMEN: Soft, nontender, and nondistended. Positive bowel sounds. No evidence of hepatosplenomegaly. Currently, no rebound or guarding noted. EXTREMITIES: Negative for clubbing, cyanosis, or edema. RECTAL/GENITAL: Not performed. NEUROLOGIC: Unable to assess Assessment/Plan Assessment/Plan ASSESSMENT: This is a 80-year-old male. 1. Respiratory failure. 2. Bilateral pneumonia. 3. Hypertension. 4. Diabetes type 2. 5. Hypercholesterolemia. 6. Parkinson disease. 7. COVID-19 negative. 8. Ulcerative proctitis. 9. Benign prostatic hypertrophy. 10. Gastroesophageal reflux disease. 11. Urinary tract infection=proteus mirabilis 12. Sepsis=coag neg staph TREATMENT: 1. Pneumonia/respiratory failure. Infectious diseases = Drs. Harris/Pj. A Pulmonary/Critical care= Dr. Latanya Mckeon. The patient is currently intubated on the mechanical ventilator in the intensive care unit. ABX= vancomycin, amikacin, and ertapenem. Follow recommendation of Infectious Diseases. Await sputumcultures. 2. Urinary tract infection. ABX= Meropenem and vancomycin. An Infectious Disease consultation has been obtained with Dr. Harris. 3. Hypertension. The patient is currently hypotensive. 4. Diabetes type 2. NovoLog sliding scale has been instituted. 5. Hypercholesterolemia. Continue simvastatin as above. 6. Parkinson disease. 7. Ulcerative proctitis. 8. Benign prostatic hypertrophy. 9. Gastroesophageal reflux disease. 10. Dysphagia. The patient is status post PEG placement. Tello Cobb MD Oct 04, 2020 18:13
[2020-10-04] MEDS: Dyna-Hex 2% Top Sol 2oz TOPIC SCH (20:56)
[2020-10-05] VITALS (24 sets, daily range): BP systolic 89–128; BP diastolic 43–93
[2020-10-05] MEDS: NovoLOG Insulin Flexpen SUBQ SCH ×6 (00:20→23:42)
[2020-10-05] MEDS: Meropenem 1 GM in NS 55 ML IVPB SCH ×3 (01:46→18:36)
[2020-10-05 05:00] LABS: BASOPHILS % (AUTO) 0.4 % (0.0-2.0); EOSINOPHILS % (AUTO) 0.7 % (0.0-3.0); HEMATOCRIT 29.3 % (42.0-52.0); HEMOGLOBIN 9.6 G/DL (14.2-18.0); LYMPHOCYTES % (AUTO) 23.1 % (20.0-45.0); MEAN CORPUSCULAR VOLUME 80 FL (80-99); MONOCYTES % (AUTO) 4.7 % (1.0-10.0); NEUTROPHILS % (AUTO) 71.1 % (45.0-75.0); PLATELET COUNT 506 K/UL (150-450); RED BLOOD COUNT 3.66 M/UL (4.70-6.10); RED CELL DISTRIBUTION WIDTH 17.1 % (11.6-14.8); WHITE BLOOD COUNT 13.8 K/UL (4.8-10.8)
[2020-10-05] MEDS: Midodrine 10mg tab GT SCH ×3 (05:19→22:24)
[2020-10-05 05:31] LABS: ALANINE AMINOTRANSFERASE 14 U/L (12-78); ALBUMIN 1.7 G/DL (3.4-5.0); ALBUMIN/GLOBULIN RATIO 0.3 (1.0-2.7); ALKALINE PHOSPHATASE 180 U/L (46-116); ANION GAP 9 mmol/L (5-15); ASPARTATE AMINO TRANSFERASE 17 U/L (15-37); BILIRUBIN,TOTAL 0.2 MG/DL (0.2-1.0); BLOOD UREA NITROGEN 16 mg/dL (7-18); CARBON DIOXIDE 28 MMOL/L (21-32); CHLORIDE 117 MMOL/L (98-107); CREATININE 1.3 MG/DL (0.55-1.30); SODIUM 154 MMOL/L (136-145)
--- NOTE | 2020-10-05 09:26 | Infectious Diseases Prog Note ---
Assessment/Plan 80yo M with: CONS bacteremia, recurrent 09/24 BCx 2/2 +CONS 09/25 BCx neg 09/28 BCx +CONS 09/30 BCx NTD Sepsis, septic shock GPC bacteremia UTI 2/2 ESBL P.mirabilis Pneumonia 2/2 ESBL P.mirabilis Febrile to 105, improving Leukocytosis to 15, improving 09/24 BCx 2/2 CONS UA 20-30 WBC, UCx ESBL P.mirabilis COVID rapid test neg, PCR neg CXR: 1. Coarse bibasilar interstitial lung markings, may represent atypical infectious process such as viral pneumonia versus pulmonary edema. 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 09/28 C.dif neg 09/28 BCx +GPCs (see above) Resp cx +ESBL P.mirabilis 09/29 COVID PCR neg 10/03 CXR: Slightly worsened bilateral basilar infiltrates, over one day Cr 2.0, improving Plan: Cont meropenem #5 (abx d #11) for ESBL P.mirabilis UTI/pna (can sometimes have increased MICs to erta, but S-audra) Cont vanco IV #6/7 given BCx +CONS CT chest/abd/pelvis given going fevers despite broad abx Place PIVs and remove central line in fem if able, infection risk Trend WBC Trend Cr 10/01 SP erta #6 09/25 SP amikacin and vanco x1 Monitor CBC/CMP Monitor temp curve, hemodynamics Monitor resp status D/w RN Thank you for this consult. [facility] will continue to follow. Subjective Allergies: Coded Allergies: No Known Allergies (Unverified , 08/27/19) AF WBC [address] scan - pending consent from DPOA Sedated on vent Objective Last 24 Hour Vital Signs Date Time Temp Pulse Resp B/P (MAP) Pulse Ox O2 Delivery O2 Flow Rate FiO2 10/05/20 07:00 84 16 94/49 (64) 100 10/05/20 06:00 111 21 118/58 (78) 100 10/05/20 05:00 98.8 107 20 89/58 (68) 100 10/05/20 04:00 Mechanical Ventilator 10/05/20 04:00 105 10/05/20 04:00 40 10/05/20 04:00 105 23 117/93 (101) 100 10/05/20 03:30 103 23 40 10/05/20 03:00 103 23 126/77 (93) 100 10/05/20 02:00 87 16 109/74 (86) 100 10/05/20 01:00 87 16 101/59 (73) 100 10/05/20 00:00 40 10/05/20 00:00 98.3 103 23 123/89 (100) 100 10/05/20 00:00 111 10/05/20 00:00 Mechanical Ventilator 10/04/20 23:30 110 27 40 10/04/20 23:00 108 23 115/80 (92) 100 10/04/20 22:00 120 26 136/75 (95) 100 10/04/20 21:00 122 22 104/50 (68) 100 10/04/20 20:00 97 10/04/20 20:00 98.3 98 16 112/59 (76) 100 10/04/20 20:00 Mechanical Ventilator 10/04/20 20:00 40 10/04/20 19:30 104 16 40 10/04/20 19:00 97 16 109/65 (80) 100 10/04/20 18:00 102 20 122/83 (96) 100 10/04/20 17:00 114 21 94/67 (76) 100 10/04/20 16:00 97.3 103 22 96/49 (65) 100 10/04/20 16:00 Mechanical Ventilator 10/04/20 16:00 105 10/04/20 16:00 40 10/04/20 15:06 109 16 40 10/04/20 15:00 103 23 130/73 (92) 100 10/04/20 14:05 101 20 110/64 (79) 100 10/04/20 13:00 94 16 96/52 (67) 100 10/04/20 12:00 Mechanical Ventilator 10/04/20 12:00 97.3 91 16 110/54 (72) 100 10/04/20 12:00 99 10/04/20 12:00 40 10/04/20 11:00 94 16 96/66 (76) 100 10/04/20 10:30 85 16 40 10/04/20 10:00 100 19 113/78 (90) 100 Height (Feet): 5 Height (Inches): 10.00 Weight (Pounds): 180 Gen: NAD HEENT: NCAT Pulm: BL chest rise Abd: Non-distended Ext: No c/c/e Skin: No visible rashes Neuro: Awake Lines: R fem CVC Laboratory Tests Test 10/04/20 10:00 10/05/20 04:00 10/05/20 04:15 10/05/20 05:15 Vancomycin Level Trough 17.5 ug/mL (5.0-12.0) H Pro-B-Type Natriuretic Peptide 274 pg/mL (0-125) H White Blood Count 13.8 K/UL (4.8-10.8) H Red Blood Count 3.66 M/UL (4.70-6.10) L Hemoglobin 9.6 G/DL (14.2-18.0) L Hematocrit 29.3 % (42.0-52.0) L Mean Corpuscular Volume 80 FL (80-99) Mean Corpuscular Hemoglobin 26.3 PG (27.0-31.0) L Mean Corpuscular Hemoglobin Concent 32.9 G/DL (32.0-36.0) Red Cell Distribution Width 17.1 % (11.6-14.8) H Platelet Count 506 K/UL (150-450) H Mean Platelet Volume 9.7 FL (6.5-10.1) Neutrophils (%) (Auto) 71.1 % (45.0-75.0) Lymphocytes (%) (Auto) 23.1 % (20.0-45.0) Monocytes (%) (Auto) 4.7 % (1.0-10.0) Eosinophils (%) (Auto) 0.7 % (0.0-3.0) Basophils (%) (Auto) 0.4 % (0.0-2.0) Erythrocyte Sedimentation Rate 98 MM/HR (0-20) H Sodium Level 154 MMOL/L (136-145) H Potassium Level 4.0 MMOL/L (3.5-5.1) Chloride Level 117 MMOL/L (98-107) H Carbon Dioxide Level 28 MMOL/L (21-32) Anion Gap 9 mmol/L (5-15) Blood Urea Nitrogen 16 mg/dL (7-18) Creatinine 1.3 MG/DL (0.55-1.30) Estimat Glomerular Filtration Rate > 60 mL/min (>60) Glucose Level 265 MG/DL (74-106) H Calcium Level 9.0 MG/DL (8.5-10.1) Phosphorus Level 3.0 MG/DL (2.5-4.9) Magnesium Level 2.1 MG/DL (1.8-2.4) Total Bilirubin 0.2 MG/DL (0.2-1.0) Aspartate Amino Transf (AST/SGOT) 17 U/L (15-37) Alanine Aminotransferase (ALT/SGPT) 14 U/L (12-78) Alkaline Phosphatase 180 U/L (46-116) H C-Reactive Protein, Quantitative 23.0 mg/dL (0.00-0.90) H Total Protein 7.8 G/DL (6.4-8.2) Albumin 1.7 G/DL (3.4-5.0) L Globulin 6.1 g/dL Albumin/Globulin Ratio 0.3 (1.0-2.7) L POC Whole Blood Glucose 241 MG/DL (74-106) H Current Medications Medications (Trade) Dose Ordered Sig/Debi Route PRN Reason Start Time Stop Time Status Last Admin Dose Admin Acetaminophen (Tylenol) 650 mg Q4H PRN GT FEVER 10/03/20 01:15 11/02/20 01:14 10/04/20 05:56 Ascorbic Acid (Vitamin C) 250 mg TWICE A DAY GT 10/03/20 18:00 11/02/20 17:59 10/04/20 17:31 Chlorhexidine Gluconate (Jazmin-Hex 2%) 1 applic DAILY@1999 TOPIC 09/26/20 20:00 12/25/20 19:59 10/04/20 20:56 Dextrose (Dextrose 50%) 25 ml Q30M PRN IV Hypoglycemia 09/25/20 15:30 12/24/20 15:29 Dextrose (Dextrose 50%) 50 ml Q30M PRN IV Hypoglycemia 09/25/20 15:30 12/24/20 15:29 Heparin Sodium (Porcine) (Heparin 5000 units/ml) 5,000 units EVERY 12 HOURS SUBQ 09/25/20 09:00 11/09/20 08:59 10/04/20 21:03 Insulin Aspart (NovoLOG) Q6HR SUBQ 10/04/20 00:00 01/02/21 00:00 10/04/20 17:35 Meropenem 1 gm/ Sodium Chloride 55 ml @ 110 mls/hr Q8H IVPB 10/01/20 10:00 10/06/20 09:59 10/05/20 01:46 Midodrine (Pro-Amatine) 10 mg Q8HR GT 09/30/20 14:00 12/29/20 13:59 10/05/20 05:19 Ondansetron HCl (Zofran) 4 mg Q6H PRN IVP Nausea & Vomiting 09/25/20 00:15 10/25/20 00:14 Pantoprazole (Protonix) 40 mg Q12HR IVP 09/25/20 21:00 10/25/20 08:59 10/04/20 21:02 Polyethylene Glycol (Miralax) 17 gm DAILYPRN PRN ORAL Constipation 09/25/20 00:15 10/25/20 00:14 Sodium Chloride 1,000 ml @ 50 mls/hr Q20H IV 10/01/20 09:15 10/31/20 09:14 10/05/20 03:57 Vancomycin HCl (Vanco pharmacy to dose) 1 ea DAILY PRN MISC Per rx protocol 09/30/20 13:45 10/30/20 13:44 Vancomycin HCl 500 mg/Dextrose 110 ml @ 110 mls/hr Q12H IVPB 10/01/20 20:00 10/06/20 19:59 10/04/20 20:57 Marixa Oliva M.D. Oct 05, 2020 09:26
[2020-10-05] MEDS: Vancomycin 500mg/D5W 110ml IVPB SCH ×4 (09:32→20:31)
[2020-10-05] MEDS: Pantoprazole Inj IVP SCH ×2 (09:33→20:31)
[2020-10-05] MEDS: Ascorbic Acid 500mg tab GT SCH ×2 (09:33→18:37)
[2020-10-05] MEDS: Heparin 5000 units/ml inj SUBQ SCH ×2 (09:34→20:32)
--- NOTE | 2020-10-05 11:56 | Nephrology Progress Note ---
Assessment/Plan Problem List: (1) KELLY (acute kidney injury) (2) Dehydration (3) Hypernatremia (4) Severe sepsis (5) History of CVA (cerebrovascular accident) (6) Parkinson disease (7) Acute respiratory failure (8) Elevated lipase Assessment KELLY, Hypernatremia, dehydration, free water deficit Sepsis Acute respiratory failure requiring intubation and mechanical ventilation Diabetes mellitus [id number] GT feeding History of CVA History of hypertension Parkinson's disease Elevated lipase Plan October 05: Labs reviewed. Serum sodium rising. 1 L D5W IV ordered. Continue to monitor electrolytes. Continue per consultants. October 04: No CHEM panel was done today. Patient remain intubated on ventilator and full code. We will order labs tomorrow. Continue per consultants. October 03: Discussed with RN. Labs are reviewed. Potassium and phosphate replacement ordered. Continue per consultants. Patient remains full code intubated on ventilator. Serum creatinine up to 1.5. Continue to monitor renal parameters. October 02: Remains in ICU and intubated. Labs reviewed. Serum creatinine 1.3. Serum sodium slightly elevated. Continue to monitor renal parameters and electrolytes. October 01: Seen in ICU. Discussed with RN. No chemistry panel done today. Blood pressure hovering around 100 systolic. Will check labs tomorrow. Continue per consultants. September 30: Labs reviewed. Renal parameters stable. Blood pressure hovering around 90s systolic. We will add midodrine through GT tube. Continue per consultants. September 29: Labs reviewed. Serum creatinine down to 1.3 and electrolytes reviewed. Abnormal electrolytes addressed. Continue per consultants. September 28: Labs reviewed. Creatinine 1.6 unchanged. Hypernatremia persists. Will give 1 L of D5W. Continue to monitor renal parameters and electrolytes. Continue per consultants. September 27: Labs reviewed. Serum sodium lowering. Serum creatinine lowering. Blood sugar somewhat better controlled. Patient continues to be on free water through tube feeding. Continue to monitor renal parameters and electrolytes. Abnormal electrolytes addressed. September 26: IV fluids stopped. Patient receiving free water reviewed NG tube. Patient full code. Intubated on ventilator. Discussed with JOHNNY Christensen. Continue to monitor renal parameters. Serum creatinine lower but abnormal electrolyte persists and was addressed. Previously: IV fluid half-normal saline 125 cc an hour Albumin fluid challenge Monitor electrolytes Monitor renal parameters Hold blood pressure medication since blood pressure low Per orders, per consultants Subjective ROS Limited/Unobtainable: Yes Objective Objective Last 24 Hour Vital Signs Date Time Temp Pulse Resp B/P (MAP) Pulse Ox O2 Delivery O2 Flow Rate FiO2 10/05/20 11:00 116 16 111/53 (72) 100 10/05/20 10:00 96 16 116/52 (73) 100 10/05/20 09:00 96 17 106/69 (81) 100 10/05/20 08:00 101 10/05/20 08:00 98.8 92 17 99/43 (61) 100 10/05/20 07:38 82 16 40 10/05/20 07:00 84 16 94/49 (64) 100 10/05/20 06:00 111 21 118/58 (78) 100 10/05/20 05:00 98.8 107 20 89/58 (68) 100 10/05/20 04:00 Mechanical Ventilator 10/05/20 04:00 105 10/05/20 04:00 40 10/05/20 04:00 105 23 117/93 (101) 100 10/05/20 03:30 103 23 40 10/05/20 03:00 103 23 126/77 (93) 100 10/05/20 02:00 87 16 109/74 (86) 100 10/05/20 01:00 87 16 101/59 (73) 100 10/05/20 00:00 40 10/05/20 00:00 98.3 103 23 123/89 (100) 100 10/05/20 00:00 111 10/05/20 00:00 Mechanical Ventilator 10/04/20 23:30 110 27 40 10/04/20 23:00 108 23 115/80 (92) 100 10/04/20 22:00 120 26 136/75 (95) 100 10/04/20 21:00 122 22 104/50 (68) 100 10/04/20 20:00 97 10/04/20 20:00 98.3 98 16 112/59 (76) 100 10/04/20 20:00 Mechanical Ventilator 10/04/20 20:00 40 10/04/20 19:30 104 16 40 10/04/20 19:00 97 16 109/65 (80) 100 10/04/20 18:00 102 20 122/83 (96) 100 10/04/20 17:00 114 21 94/67 (76) 100 10/04/20 16:00 97.3 103 22 96/49 (65) 100 10/04/20 16:00 Mechanical Ventilator 10/04/20 16:00 105 10/04/20 16:00 40 10/04/20 15:06 109 16 40 10/04/20 15:00 103 23 130/73 (92) 100 10/04/20 14:05 101 20 110/64 (79) 100 10/04/20 13:00 94 16 96/52 (67) 100 10/04/20 12:00 Mechanical Ventilator 10/04/20 12:00 97.3 91 16 110/54 (72) 100 10/04/20 12:00 99 10/04/20 12:00 40 Intake and Output 10/04/20 10/05/20 19:00 07:00 Intake Total 915 ml 800 ml Output Total 1575 ml 1296 ml Balance -660 ml -496 ml Intake Free Water 100 ml IV Total 555 ml 550 ml Tube Feeding 200 ml 250 ml Other 60 ml Output Urine Total 1575 ml 1296 ml Laboratory Tests 10/05/20 04:00: Pro-B-Type Natriuretic Peptide 274H 10/05/20 04:15: White Blood Count 13.8H, Red Blood Count 3.66L, Hemoglobin 9.6L, Hematocrit 29.3L, Mean Corpuscular Volume 80, Mean Corpuscular Hemoglobin 26.3L, Mean Corpuscular Hemoglobin Concent 32.9, Red Cell Distribution Width 17.1H, Platelet Count 506H, Mean Platelet Volume 9.7, Neutrophils (%) (Auto) 71.1, Lymphocytes (%) (Auto) 23.1, Monocytes (%) (Auto) 4.7, Eosinophils (%) (Auto) 0.7, Basophils (%) (Auto) 0.4, Erythrocyte Sedimentation Rate 98H, Sodium Level 154H, Potassium Level 4.0, Chloride Level 117H, Carbon Dioxide Level 28, Anion Gap 9, Blood Urea Nitrogen 16, Creatinine 1.3, Estimat Glomerular Filtration Rate > 60, Glucose Level 265H, Calcium Level 9.0, Phosphorus Level 3.0, Magnesium Level 2.1, Total Bilirubin 0.2, Aspartate Amino Transf (AST/SGOT) 17, Alanine Aminotransferase ( ALT/SGPT) 14, Alkaline Phosphatase 180H, C-Reactive Protein, Quantitative 23.0H, Total Protein 7.8, Albumin 1.7L, Globulin 6.1, Albumin/Globulin Ratio 0.3L 10/05/20 05:15: POC Whole Blood Glucose 241H Height (Feet): 5 Height (Inches): 10.00 Weight (Pounds): 180 General Appearance: no apparent distress EENT: other - Intubated on ventilator Cardiovascular: tachycardia Respiratory/Chest: decreased breath sounds Abdomen: distended Eddie Nelson MD Oct 05, 2020 11:56
--- NOTE | 2020-10-05 12:10 | Surgery Progress Note ---
Surgery Progress Note Subjective Additional Comments leukocytosis worsening cxr infiltrates vent stable no n/v min responsive Objective Last 24 Hour Vital Signs Date Time Temp Pulse Resp B/P (MAP) Pulse Ox O2 Delivery O2 Flow Rate FiO2 10/05/20 11:00 116 16 111/53 (72) 100 10/05/20 10:00 96 16 116/52 (73) 100 10/05/20 09:00 96 17 106/69 (81) 100 10/05/20 08:00 101 10/05/20 08:00 98.8 92 17 99/43 (61) 100 10/05/20 07:38 82 16 40 10/05/20 07:00 84 16 94/49 (64) 100 10/05/20 06:00 111 21 118/58 (78) 100 10/05/20 05:00 98.8 107 20 89/58 (68) 100 10/05/20 04:00 Mechanical Ventilator 10/05/20 04:00 105 10/05/20 04:00 40 10/05/20 04:00 105 23 117/93 (101) 100 10/05/20 03:30 103 23 40 10/05/20 03:00 103 23 126/77 (93) 100 10/05/20 02:00 87 16 109/74 (86) 100 10/05/20 01:00 87 16 101/59 (73) 100 10/05/20 00:00 40 10/05/20 00:00 98.3 103 23 123/89 (100) 100 10/05/20 00:00 111 10/05/20 00:00 Mechanical Ventilator 10/04/20 23:30 110 27 40 10/04/20 23:00 108 23 115/80 (92) 100 10/04/20 22:00 120 26 136/75 (95) 100 10/04/20 21:00 122 22 104/50 (68) 100 10/04/20 20:00 97 10/04/20 20:00 98.3 98 16 112/59 (76) 100 10/04/20 20:00 Mechanical Ventilator 10/04/20 20:00 40 10/04/20 19:30 104 16 40 10/04/20 19:00 97 16 109/65 (80) 100 10/04/20 18:00 102 20 122/83 (96) 100 10/04/20 17:00 114 21 94/67 (76) 100 10/04/20 16:00 97.3 103 22 96/49 (65) 100 10/04/20 16:00 Mechanical Ventilator 10/04/20 16:00 105 10/04/20 16:00 40 10/04/20 15:06 109 16 40 10/04/20 15:00 103 23 130/73 (92) 100 10/04/20 14:05 101 20 110/64 (79) 100 10/04/20 13:00 94 16 96/52 (67) 100 I&O Intake and Output 10/04/20 10/05/20 19:00 07:00 Intake Total 915 ml 800 ml Output Total 1575 ml 1296 ml Balance -660 ml -496 ml Intake Free Water 100 ml IV Total 555 ml 550 ml Tube Feeding 200 ml 250 ml Other 60 ml Output Urine Total 1575 ml 1296 ml Dressing: saturated Cardiovascular: RSR Respiratory: decreased breath sounds Abdomen: non-tender, present bowel sounds, non-distended Extremities: edema, no tenderness, no cyanosis Laboratory Tests Test 10/05/20 04:00 10/05/20 04:15 10/05/20 05:15 Pro-B-Type Natriuretic Peptide 274 pg/mL (0-125) H White Blood Count 13.8 K/UL (4.8-10.8) H Red Blood Count 3.66 M/UL (4.70-6.10) L Hemoglobin 9.6 G/DL (14.2-18.0) L Hematocrit 29.3 % (42.0-52.0) L Mean Corpuscular Volume 80 FL (80-99) Mean Corpuscular Hemoglobin 26.3 PG (27.0-31.0) L Mean Corpuscular Hemoglobin Concent 32.9 G/DL (32.0-36.0) Red Cell Distribution Width 17.1 % (11.6-14.8) H Platelet Count 506 K/UL (150-450) H Mean Platelet Volume 9.7 FL (6.5-10.1) Neutrophils (%) (Auto) 71.1 % (45.0-75.0) Lymphocytes (%) (Auto) 23.1 % (20.0-45.0) Monocytes (%) (Auto) 4.7 % (1.0-10.0) Eosinophils (%) (Auto) 0.7 % (0.0-3.0) Basophils (%) (Auto) 0.4 % (0.0-2.0) Erythrocyte Sedimentation Rate 98 MM/HR (0-20) H Sodium Level 154 MMOL/L (136-145) H Potassium Level 4.0 MMOL/L (3.5-5.1) Chloride Level 117 MMOL/L (98-107) H Carbon Dioxide Level 28 MMOL/L (21-32) Anion Gap 9 mmol/L (5-15) Blood Urea Nitrogen 16 mg/dL (7-18) Creatinine 1.3 MG/DL (0.55-1.30) Estimat Glomerular Filtration Rate > 60 mL/min (>60) Glucose Level 265 MG/DL (74-106) H Calcium Level 9.0 MG/DL (8.5-10.1) Phosphorus Level 3.0 MG/DL (2.5-4.9) Magnesium Level 2.1 MG/DL (1.8-2.4) Total Bilirubin 0.2 MG/DL (0.2-1.0) Aspartate Amino Transf (AST/SGOT) 17 U/L (15-37) Alanine Aminotransferase (ALT/SGPT) 14 U/L (12-78) Alkaline Phosphatase 180 U/L (46-116) H C-Reactive Protein, Quantitative 23.0 mg/dL (0.00-0.90) H Total Protein 7.8 G/DL (6.4-8.2) Albumin 1.7 G/DL (3.4-5.0) L Globulin 6.1 g/dL Albumin/Globulin Ratio 0.3 (1.0-2.7) L POC Whole Blood Glucose 241 MG/DL (74-106) H Plan Problems: (1) Hypoxia (2) Severe sepsis Assessment & Plan: leukocytosis lactic acidosis anemia renal insufficiency on support in ICU dressings changed and care plan initiated cont abx trend labs if fluids am imaging ordered remains febrile cont abx cooling measures worsening respiratory cont support Non-Blanchable erythema noted to R and L earlobes. Erythematous, scaly pimple- like rash,some of which are scaly and others small papules noted to R and L axillae, upper R and L chest and back ,R and L groin areas. Pt observed to persistently scratch affected areas described. Incontinence Associated Dermatitis Buttocks, R and L Ischial tuberosities are erythematous,denuded with shearing and scattered satellite lesions. Per staff pt frequently removes or dislodges Condom cath. R Heel is boggy with non-blanchable erythema. L Heel is boggy with Non-Blanchable erythema. Pt presented on admission with Multiple Pressure Injuries. Sacral DTPI which extends into R and L Gluteal cheeks and is partially opened upper R gluteus (L)14cm x (W)15cm. DTPI noted within hypertrophic scar from previous Pressure injury. Base of wound is purpuric at cleft ,and indurated. Non-Blanchable erythema with additional shearing periwound. An area of induration with darker skin tone noted to L Ischium. Darker skin tone without induration R Ischium. Scrotum is erythematous and swollen. DTPI L Heel and Plantar L Heel(L)4cm x (W)3.5cm. Base of Pressure Injury roca colored Blister with darker center. Periwound is fluctuant with non-Blanchable erythema. DTPI R Heel (L)2.7cm x (W)4cm. Non-Blanchable erythema without induration/fluctuance R Hallux. Non-Blanchable erythema without induration/fluctuance L Hallux. Tx.Plan:Apply Cavilon Skin Barrier to both R and L ears.(Pad Oxygen Tubing as Needed.) Apply Moisture Barrier Paste to bilat groin and bilat ischial tuberosities with eqach Incontinence care. Apply Cavilon Skin Barrier to both heels. Cover each heel with Optifoam drsg. Change every 7 days and prn. Cleanse Sacral wound with Saline. Apply Therahoney. Apply Moisture Barrier Paste periwound. Cover with Optifoam drsg. Change every 3 days and prn. Apply Moisture Barrier Paste to Scrotum,R and L ischial tuberosities with each incontinence care. Apply Cavilon Skin Barrier to R and L Hallux. Cover each site with Optifoam drsgs. Change every 7 days and prn. Reposition at least every 2hours or as tolerated. Off-load heels with pillow. APM/ALEK Mattress overlay improving cont current care tube site okay DAILY ESTIMATED NEEDS: Needs based on Critical care, DM, Wound/ 62.73kg 22-30 kcals/kg 3644-9951 total kcals 1.25-2 g protein/kg 78-125 g total protein 25-30 mL/kg 7606-4487 total fluid mLs NUTRITION DIAGNOSIS: * Swallowing difficulty R/T dysphagia as evidenced by Pt is GT dep, currently orally intubated, off pressor support, on GT feeds. CURRENT TF:NPO ENTERAL NUTRITION RECOMMENDATIONS: Glucerna 1.2 @ 55ml/hr x 24 hrs to provide 1320ml, 1584kcal, 79g prot, 1063ml free water * Maintain current TF: meets 100 % est kcal/prot needs * HOB over 30 degrees * H2O flush of 180ml q 6hrs ADDITIONAL RECOMMENDATIONS: * Per SNF: HT=5'7" WT= 138lbs (as of Sep 13, 2020) * Monitor hemodynamic stability: NE @ 8mcg-> now off * Wound healing: TF rec @ goal provides 100% RDI add Vit C 500mg QD + Terrance BID via TF * Monitor lytes, replete as needed * Rec long acting insulin for improved BG control . (3) Dehydration (4) Hypernatremia (5) Clostridium difficile colitis (6) Staphylococcus aureus bacteremia (7) Hip fracture, left (8) Diabetes mellitus (9) History of hypertension (10) Severe protein-calorie malnutrition (11) Acute encephalopathy (12) Pressure Ulcer Of Sacral Region, Unstageable (13) Feeding by G-tube (14) Abdominal distention (15) Multiple drug resistant organism (MDRO) culture positive (16) Sepsis (17) History of CVA (cerebrovascular accident) (18) Parkinson disease James Breen Oct 05, 2020 12:10
--- NOTE | 2020-10-05 12:23 | Internal Med Progress Note ---
Subjective Date of Service: Oct 05, 2020 Physician Name CobbTello Attending Physician Cirilo Rome MD Current Medications Medications (Trade) Dose Ordered Sig/Debi Route PRN Reason Start Time Stop Time Status Last Admin Dose Admin Acetaminophen (Tylenol) 650 mg Q4H PRN GT FEVER 10/03/20 01:15 11/02/20 01:14 10/04/20 05:56 Ascorbic Acid (Vitamin C) 250 mg TWICE A DAY GT 10/03/20 18:00 11/02/20 17:59 10/05/20 09:33 Chlorhexidine Gluconate (Jazmin-Hex 2%) 1 applic DAILY@2000 TOPIC 09/26/20 20:00 12/25/20 19:59 10/04/20 20:56 Dextrose 1,000 ml @ 100 mls/hr Q10H IV 10/05/20 12:00 10/05/20 21:59 Dextrose (Dextrose 50%) 25 ml Q30M PRN IV Hypoglycemia 09/25/20 15:30 12/24/20 15:29 Dextrose (Dextrose 50%) 50 ml Q30M PRN IV Hypoglycemia 09/25/20 15:30 12/24/20 15:29 Heparin Sodium (Porcine) (Heparin 5000 units/ml) 5,000 units EVERY 12 HOURS SUBQ 09/25/20 09:00 11/09/20 08:59 10/05/20 09:34 Insulin Aspart (NovoLOG) Q6HR SUBQ 10/04/20 00:00 01/02/21 00:00 10/04/20 17:35 Meropenem 1 gm/ Sodium Chloride 55 ml @ 110 mls/hr Q8H IVPB 10/05/20 18:00 10/10/20 17:59 Midodrine (Pro-Amatine) 10 mg Q8HR GT 09/30/20 14:00 12/29/20 13:59 10/05/20 05:19 Ondansetron HCl (Zofran) 4 mg Q6H PRN IVP Nausea & Vomiting 09/25/20 00:15 10/25/20 00:14 Pantoprazole (Protonix) 40 mg Q12HR IVP 09/25/20 21:00 10/25/20 08:59 10/05/20 09:33 Polyethylene Glycol (Miralax) 17 gm DAILYPRN PRN ORAL Constipation 09/25/20 00:15 10/25/20 00:14 [facility] 1 ea DAILY PRN MISC Per rx protocol 09/30/20 13:45 10/30/20 13:44 Vancomycin HCl 500 mg/Dextrose 110 ml @ 110 mls/hr Q12H IVPB 10/01/20 20:00 10/06/20 19:59 10/05/20 09:32 Allergies: Coded Allergies: No Known Allergies (Unverified , 08/27/19) ROS Limited/Unobtainable: Yes Subjective 80 YO M admitted with respiratory failure. Intubated and sedated. Cover for Int Dusty-DR Rome. ICU Objective Last Vital Signs Date Time Temp Pulse Resp B/P (MAP) Pulse Ox O2 Delivery O2 Flow Rate FiO2 10/05/20 11:00 116 16 111/53 (72) 100 10/05/20 08:00 98.8 10/05/20 07:38 40 10/05/20 04:00 Mechanical Ventilator 09/28/20 16:00 40.0 Laboratory Tests Test 10/05/20 04:00 10/05/20 04:15 10/05/20 05:15 Pro-B-Type Natriuretic Peptide 274 pg/mL (0-125) H White Blood Count 13.8 K/UL (4.8-10.8) H Red Blood Count 3.66 M/UL (4.70-6.10) L Hemoglobin 9.6 G/DL (14.2-18.0) L Hematocrit 29.3 % (42.0-52.0) L Mean Corpuscular Volume 80 FL (80-99) Mean Corpuscular Hemoglobin 26.3 PG (27.0-31.0) L Mean Corpuscular Hemoglobin Concent 32.9 G/DL (32.0-36.0) Red Cell Distribution Width 17.1 % (11.6-14.8) H Platelet Count 506 K/UL (150-450) H Mean Platelet Volume 9.7 FL (6.5-10.1) Neutrophils (%) (Auto) 71.1 % (45.0-75.0) Lymphocytes (%) (Auto) 23.1 % (20.0-45.0) Monocytes (%) (Auto) 4.7 % (1.0-10.0) Eosinophils (%) (Auto) 0.7 % (0.0-3.0) Basophils (%) (Auto) 0.4 % (0.0-2.0) Erythrocyte Sedimentation Rate 98 MM/HR (0-20) H Sodium Level 154 MMOL/L (136-145) H Potassium Level 4.0 MMOL/L (3.5-5.1) Chloride Level 117 MMOL/L (98-107) H Carbon Dioxide Level 28 MMOL/L (21-32) Anion Gap 9 mmol/L (5-15) Blood Urea Nitrogen 16 mg/dL (7-18) Creatinine 1.3 MG/DL (0.55-1.30) Estimat Glomerular Filtration Rate > 60 mL/min (>60) Glucose Level 265 MG/DL (74-106) H Calcium Level 9.0 MG/DL (8.5-10.1) Phosphorus Level 3.0 MG/DL (2.5-4.9) Magnesium Level 2.1 MG/DL (1.8-2.4) Total Bilirubin 0.2 MG/DL (0.2-1.0) Aspartate Amino Transf (AST/SGOT) 17 U/L (15-37) Alanine Aminotransferase (ALT/SGPT) 14 U/L (12-78) Alkaline Phosphatase 180 U/L (46-116) H C-Reactive Protein, Quantitative 23.0 mg/dL (0.00-0.90) H Total Protein 7.8 G/DL (6.4-8.2) Albumin 1.7 G/DL (3.4-5.0) L Globulin 6.1 g/dL Albumin/Globulin Ratio 0.3 (1.0-2.7) L POC Whole Blood Glucose 241 MG/DL (74-106) H Intake and Output 10/04/20 10/05/20 19:00 07:00 Intake Total 915 ml 800 ml Output Total 1575 ml 1296 ml Balance -660 ml -496 ml Intake Free Water 100 ml IV Total 555 ml 550 ml Tube Feeding 200 ml 250 ml Other 60 ml Output Urine Total 1575 ml 1296 ml Objective PHYSICAL EXAMINATION: VITAL SIGNS: Temperature 103.5 degrees Fahrenheit, respiratory rate 24, pulse 138, blood pressure 130/83, pulse ox was 100% on mechanical ventilation with 60% FiO2. GENERAL: The patient is well-developed and well-nourished male, who is intubated and sedated. HEENT: Eyes, pupils are equal responsive to light and accommodation. Extraocular movements are intact. NECK: Supple without lymphadenopathy. CHEST: Mech vent; Decreased breath sounds bilateral bases, otherwise without wheezes or rales. CARDIOVASCULAR: Regular rate. S1 and S2 normal without murmurs, rubs, or gallops. ABDOMEN: Soft, nontender, and nondistended. Positive bowel sounds. No evidence of hepatosplenomegaly. Currently, no rebound or guarding noted. EXTREMITIES: Negative for clubbing, cyanosis, or edema. RECTAL/GENITAL: Not performed. NEUROLOGIC: Unable to assess Assessment/Plan Assessment/Plan ASSESSMENT: This is a 80-year-old male. 1. Respiratory failure. 2. Bilateral pneumonia. 3. Hypertension. 4. Diabetes type 2. 5. Hypercholesterolemia. 6. Parkinson disease. 7. COVID-19 negative. 8. Ulcerative proctitis. 9. Benign prostatic hypertrophy. 10. Gastroesophageal reflux disease. 11. Urinary tract infection=proteus mirabilis 12. Sepsis=coag neg staph TREATMENT: 1. Pneumonia/respiratory failure. Infectious diseases = Drs. Harris/Pj. A Pulmonary/Critical care= Dr. Latanya Mckeon. The patient is currently intubated on the mechanical ventilator in the intensive care unit. ABX= vancomycin, amikacin, and ertapenem. Follow recommendation of Infectious Diseases. Await sputumcultures. 2. Urinary tract infection. ABX= Meropenem and vancomycin. An Infectious Disease consultation has been obtained with Dr. Harris. 3. Hypertension. The patient is currently hypotensive. 4. Diabetes type 2. NovoLog sliding scale has been instituted. 5. Hypercholesterolemia. Continue simvastatin as above. 6. Parkinson disease. 7. Ulcerative proctitis. 8. Benign prostatic hypertrophy. 9. Gastroesophageal reflux disease. 10. Dysphagia. The patient is status post PEG placement. Tello Cobb MD Oct 05, 2020 12:23
--- NOTE | 2020-10-05 12:46 | Pulmonolgy Critical Care Note ---
Critical Care - Asmt/Plan Problems: (1) Acute respiratory failure (2) Severe sepsis (3) Diabetes mellitus (4) Severe protein-calorie malnutrition (5) History of hypertension (6) History of CVA (cerebrovascular accident) (7) Parkinson disease (8) Feeding by G-tube Respiratory: monitor respiratory rate, adjust FIO2, CXR Cardiac: continue to monitor HR/BP Renal: F/U I&O, check electrolytes Infectious Disease: check cultures, continue antibiotics Gastrointestinal: continue feedings/current rate Endocrine: monitor blood sugar Hematologic: transfuse if hgb<8.5 Neurologic: PRN Ativan, PRN Morphine, keep patient comfortable Affect: PRN ativan Time Spent (Minutes): 40 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, 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, 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 Discussed with: nurses, consultants, case management managermanager pest - Objective Last 24 Hour Vital Signs Date Time Temp Pulse Resp B/P (MAP) Pulse Ox O2 Delivery O2 Flow Rate FiO2 10/05/20 11:00 116 16 111/53 (72) 100 10/05/20 10:00 96 16 116/52 (73) 100 10/05/20 09:00 96 17 106/69 (81) 100 10/05/20 08:00 101 10/05/20 08:00 98.8 92 17 99/43 (61) 100 10/05/20 07:38 82 16 40 10/05/20 07:00 84 16 94/49 (64) 100 10/05/20 06:00 111 21 118/58 (78) 100 10/05/20 05:00 98.8 107 20 89/58 (68) 100 10/05/20 04:00 Mechanical Ventilator 10/05/20 04:00 105 10/05/20 04:00 40 10/05/20 04:00 105 23 117/93 (101) 100 10/05/20 03:30 103 23 40 10/05/20 03:00 103 23 126/77 (93) 100 10/05/20 02:00 87 16 109/74 (86) 100 10/05/20 01:00 87 16 101/59 (73) 100 10/05/20 00:00 40 10/05/20 00:00 98.3 103 23 123/89 (100) 100 10/05/20 00:00 111 10/05/20 00:00 Mechanical Ventilator 10/04/20 23:30 110 27 40 10/04/20 23:00 108 23 115/80 (92) 100 10/04/20 22:00 120 26 136/75 (95) 100 10/04/20 21:00 122 22 104/50 (68) 100 10/04/20 20:00 97 10/04/20 20:00 98.3 98 16 112/59 (76) 100 10/04/20 20:00 Mechanical Ventilator 10/04/20 20:00 40 10/04/20 19:30 104 16 40 10/04/20 19:00 97 16 109/65 (80) 100 10/04/20 18:00 102 20 122/83 (96) 100 10/04/20 17:00 114 21 94/67 (76) 100 10/04/20 16:00 97.3 103 22 96/49 (65) 100 10/04/20 16:00 Mechanical Ventilator 10/04/20 16:00 105 10/04/20 16:00 40 10/04/20 15:06 109 16 40 10/04/20 15:00 103 23 130/73 (92) 100 10/04/20 14:05 101 20 110/64 (79) 100 10/04/20 13:00 94 16 96/52 (67) 100 Status: sedated Condition: critical HEENT: atraumatic, normocephalic Lungs: rales, rhonchi Heart: HR/BP stable Abdomen: soft, non-tender Accucheck: 241 Critical Care - Subjective ROS Limited/Unobtainable: Yes Condition: critical, improving EKG Rhythm: Sinus Rhythm FI02: 40 Vent Support Breath Rate: 16 Vent Support Mode: AC Vent Tidal Volume: 600 Sputum Amount: Small PEEP: 0.0 PIP: 35 Tube Feeding Amount: 0 I&O: Intake and Output 10/04/20 10/05/20 19:00 07:00 Intake Total 915 ml 800 ml Output Total 1575 ml 1296 ml Balance -660 ml -496 ml Intake Free Water 100 ml IV Total 555 ml 550 ml Tube Feeding 200 ml 250 ml Other 60 ml Output Urine Total 1575 ml 1296 ml CXR: no changes ET-Tube: 7.0 ET Position: 23 Labs: Laboratory Tests Test 10/05/20 04:00 10/05/20 04:15 10/05/20 05:15 Pro-B-Type Natriuretic Peptide 274 pg/mL (0-125) H White Blood Count 13.8 K/UL (4.8-10.8) H Red Blood Count 3.66 M/UL (4.70-6.10) L Hemoglobin 9.6 G/DL (14.2-18.0) L Hematocrit 29.3 % (42.0-52.0) L Mean Corpuscular Volume 80 FL (80-99) Mean Corpuscular Hemoglobin 26.3 PG (27.0-31.0) L Mean Corpuscular Hemoglobin Concent 32.9 G/DL (32.0-36.0) Red Cell Distribution Width 17.1 % (11.6-14.8) H Platelet Count 506 K/UL (150-450) H Mean Platelet Volume 9.7 FL (6.5-10.1) Neutrophils (%) (Auto) 71.1 % (45.0-75.0) Lymphocytes (%) (Auto) 23.1 % (20.0-45.0) Monocytes (%) (Auto) 4.7 % (1.0-10.0) Eosinophils (%) (Auto) 0.7 % (0.0-3.0) Basophils (%) (Auto) 0.4 % (0.0-2.0) Erythrocyte Sedimentation Rate 98 MM/HR (0-20) H Sodium Level 154 MMOL/L (136-145) H Potassium Level 4.0 MMOL/L (3.5-5.1) Chloride Level 117 MMOL/L (98-107) H Carbon Dioxide Level 28 MMOL/L (21-32) Anion Gap 9 mmol/L (5-15) Blood Urea Nitrogen 16 mg/dL (7-18) Creatinine 1.3 MG/DL (0.55-1.30) Estimat Glomerular Filtration Rate > 60 mL/min (>60) Glucose Level 265 MG/DL (74-106) H Calcium Level 9.0 MG/DL (8.5-10.1) Phosphorus Level 3.0 MG/DL (2.5-4.9) Magnesium Level 2.1 MG/DL (1.8-2.4) Total Bilirubin 0.2 MG/DL (0.2-1.0) Aspartate Amino Transf (AST/SGOT) 17 U/L (15-37) Alanine Aminotransferase (ALT/SGPT) 14 U/L (12-78) Alkaline Phosphatase 180 U/L (46-116) H C-Reactive Protein, Quantitative 23.0 mg/dL (0.00-0.90) H Total Protein 7.8 G/DL (6.4-8.2) Albumin 1.7 G/DL (3.4-5.0) L Globulin 6.1 g/dL Albumin/Globulin Ratio 0.3 (1.0-2.7) L POC Whole Blood Glucose 241 MG/DL (74-106) H Latanya Mckeon MD Oct 05, 2020 12:46
[2020-10-05] MEDS: Dyna-Hex 2% Top Sol 2oz TOPIC SCH (20:31)
[2020-10-06] VITALS (25 sets, daily range): BP systolic 95–128; BP diastolic 53–75
[2020-10-06] MEDS: Meropenem 1 GM in NS 55 ML IVPB SCH ×3 (01:36→18:23)
[2020-10-06] MEDS: Acetaminophen 650mg/20.3ml GT PRN (04:19)
[2020-10-06] MEDS: NovoLOG Insulin Flexpen SUBQ SCH ×4 (05:17→23:14)
[2020-10-06] MEDS: Midodrine 10mg tab GT SCH ×3 (05:18→21:03)
[2020-10-06 06:15] LABS: ALBUMIN 1.5 G/DL (3.4-5.0); ALBUMIN/GLOBULIN RATIO 0.3 (1.0-2.7); BILIRUBIN,TOTAL 0.3 MG/DL (0.2-1.0); CREATININE 1.4 MG/DL (0.55-1.30); PHOSPHORUS 1.5 MG/DL (2.5-4.9); POTASSIUM 3.1 MMOL/L (3.5-5.1)
[2020-10-06 07:13] LABS: CALCIUM 9.4 MG/DL (8.5-10.1)
[2020-10-06 07:55] LABS: BASOPHILS % (AUTO) 1.1 % (0.0-2.0); EOSINOPHILS % (AUTO) 1.4 % (0.0-3.0); HEMATOCRIT 25.9 % (42.0-52.0); HEMOGLOBIN 8.7 G/DL (14.2-18.0); LYMPHOCYTES % (AUTO) 29.2 % (20.0-45.0); MEAN CORPUSCULAR VOLUME 78 FL (80-99); MONOCYTES % (AUTO) 5.8 % (1.0-10.0); NEUTROPHILS % (AUTO) 62.5 % (45.0-75.0); PLATELET COUNT 435 K/UL (150-450); RED CELL DISTRIBUTION WIDTH 15.5 % (11.6-14.8); WHITE BLOOD COUNT 10.9 K/UL (4.8-10.8)
[2020-10-06] MEDS: Vancomycin 500mg/D5W 110ml IVPB SCH ×2 (08:00)
--- NOTE | 2020-10-06 08:51 | Infectious Diseases Prog Note ---
Assessment/Plan 80yo M with: Fevers Leukocytosis, improving 10/06 BCx ordered CONS bacteremia, recurrent 09/24 BCx 2/2 +CONS 09/25 BCx neg 09/28 BCx +CONS 09/30 BCx NTD Sepsis, septic shock GPC bacteremia UTI 2/2 ESBL P.mirabilis Pneumonia 2/2 ESBL P.mirabilis Febrile to 105, improving Leukocytosis to 15, improving 09/24 BCx 2/2 CONS UA 20-30 WBC, UCx ESBL P.mirabilis COVID rapid test neg, PCR neg CXR: 1. Coarse bibasilar interstitial lung markings, may represent atypical infectious process such as viral pneumonia versus pulmonary edema. 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: No climate change analyst 2 days 09/28 C.dif neg 09/28 BCx +GPCs (see above) Resp cx +ESBL P.mirabilis 09/29 COVID PCR neg 10/03 CXR: Slightly worsened bilateral basilar infiltrates, over one day Cr 2.0, improving Plan: Cont meropenem #6 (abx d #12) for ESBL P.mirabilis UTI/pna (can sometimes have increased MICs to erta, but S-audra) Cont vanco IV #7 CT chest/abd/pelvis given going fevers despite broad abx - THIS IS MEDICALLY NECESSARY AND EMERGENT IN THIS CRITICALLY ILL PATIENT IN THE ICU, SEDATED ON VENT. I CONSENT TO HAVE PT GO TO CT SCAN AND RECEIVE IV CONTRAST BCx today Place PIVs and remove central line in fem if able, infection risk Trend WBC Trend Cr 10/01 SP erta #6 09/25 SP amikacin and vanco x1 Monitor CBC/CMP Monitor temp curve, hemodynamics Monitor resp status D/w RN and Dr. Mckeon Thank you for this consult. [facility] will continue to follow. Subjective Allergies: Coded Allergies: No Known Allergies (Unverified , 08/27/19) Tmax 101.6 WBC improving to [address] scan - pending consent from DPOA Sedated on vent Objective Last 24 Hour Vital Signs Date Time Temp Pulse Resp B/P (MAP) Pulse Ox O2 Delivery O2 Flow Rate FiO2 10/06/20 07:00 89 16 114/64 (81) 100 10/06/20 06:00 89 16 110/53 (72) 100 10/06/20 05:30 95 16 96/53 (67) 100 10/06/20 05:00 114 17 101/62 (75) 100 10/06/20 04:49 100.8 10/06/20 04:00 87 10/06/20 04:00 Mechanical Ventilator 10/06/20 04:00 40 10/06/20 04:00 101.6 109 13 124/69 (87) 100 10/06/20 03:00 97 16 117/70 (86) 100 10/06/20 02:31 81 16 40 10/06/20 02:00 85 16 113/54 (73) 100 10/06/20 01:00 99 16 117/55 (75) 100 10/06/20 00:00 Mechanical Ventilator 10/06/20 00:00 98 10/06/20 00:00 98.6 95 16 128/60 (82) 100 10/06/20 00:00 40 10/05/20 23:00 85 18 118/60 (79) 100 10/05/20 22:40 111 15 40 10/05/20 22:00 92 21 122/58 (79) 100 10/05/20 21:00 90 16 115/63 (80) 100 10/05/20 20:00 40 10/05/20 20:00 98 10/05/20 20:00 98.9 90 19 128/62 (84) 100 10/05/20 20:00 Mechanical Ventilator 10/05/20 19:11 99 17 40 10/05/20 19:00 103 17 98/63 (75) 100 10/05/20 18:00 114 16 104/61 (75) 100 10/05/20 17:00 99 19 112/71 (85) 100 10/05/20 16:00 98.8 85 16 117/55 (75) 100 10/05/20 16:00 Mechanical Ventilator 10/05/20 16:00 94 10/05/20 16:00 40 10/05/20 15:00 82 16 116/55 (75) 100 10/05/20 14:30 94 16 40 10/05/20 14:00 94 16 112/54 (73) 100 10/05/20 13:00 100 16 98/62 (74) 100 12/23/20 12:00 40 10/05/20 12:00 Mechanical Ventilator 10/05/20 12:00 92 10/05/20 12:00 99.9 100 16 102/55 (71) 100 10/05/20 11:08 111 17 100 Endotrachael Tube 40 10/05/20 11:06 111 17 40 10/05/20 11:00 116 16 111/53 (72) 100 10/05/20 10:00 96 16 116/52 (73) 100 10/05/20 09:00 96 17 106/69 (81) 100 Height (Feet): 5 Height (Inches): 10.00 Weight (Pounds): 180 Gen: NAD HEENT: NCAT Pulm: BL chest rise Abd: Non-distended Ext: No c/c/e Skin: No visible rashes Neuro: Awake Lines: R fem CVC Laboratory Tests Test 10/06/20 04:40 10/06/20 05:16 White Blood Count 10.9 K/UL (4.8-10.8) H Red Blood Count 3.30 M/UL (4.70-6.10) L Hemoglobin 8.7 G/DL (14.2-18.0) L Hematocrit 25.9 % (42.0-52.0) L Mean Corpuscular Volume 78 FL (80-99) L Mean Corpuscular Hemoglobin 26.3 PG (27.0-31.0) L Mean Corpuscular Hemoglobin Concent 33.5 G/DL (32.0-36.0) Red Cell Distribution Width 15.5 % (11.6-14.8) H Platelet Count 435 K/UL (150-450) Mean Platelet Volume 8.5 FL (6.5-10.1) Neutrophils (%) (Auto) 62.5 % (45.0-75.0) Lymphocytes (%) (Auto) 29.2 % (20.0-45.0) Monocytes (%) (Auto) 5.8 % (1.0-10.0) Eosinophils (%) (Auto) 1.4 % (0.0-3.0) Basophils (%) (Auto) 1.1 % (0.0-2.0) Erythrocyte Sedimentation Rate 125 MM/HR (0-20) H Sodium Level 151 MMOL/L (136-145) H Potassium Level 3.1 MMOL/L (3.5-5.1) L Chloride Level 116 MMOL/L (98-107) H Carbon Dioxide Level 27 MMOL/L (21-32) Anion Gap 8 mmol/L (5-15) Blood Urea Nitrogen 9 mg/dL (7-18) Creatinine 1.4 MG/DL (0.55-1.30) H Estimat Glomerular Filtration Rate 59.3 mL/min (>60) Glucose Level 179 MG/DL (74-106) H Uric Acid 6.5 MG/DL (2.6-7.2) Calcium Level 9.4 MG/DL (8.5-10.1) Phosphorus Level 1.5 MG/DL (2.5-4.9) L Magnesium Level 1.8 MG/DL (1.8-2.4) Total Bilirubin 0.3 MG/DL (0.2-1.0) Aspartate Amino Transf (AST/SGOT) 13 U/L (15-37) L Alanine Aminotransferase (ALT/SGPT) 8 U/L (12-78) L Alkaline Phosphatase 147 U/L (46-116) H C-Reactive Protein, Quantitative 18.7 mg/dL (0.00-0.90) H Total Protein 7.3 G/DL (6.4-8.2) Albumin 1.5 G/DL (3.4-5.0) L Globulin 5.8 g/dL Albumin/Globulin Ratio 0.3 (1.0-2.7) L POC Whole Blood Glucose Pending Current Medications Medications (Trade) Dose Ordered Sig/Deib Route PRN Reason Start Time Stop Time Status Last Admin Dose Admin Acetaminophen (Tylenol) 650 mg Q4H PRN GT FEVER 10/03/20 01:15 11/02/20 01:14 10/06/20 04:19 Ascorbic Acid (Vitamin C) 250 mg TWICE A DAY GT 10/03/20 18:00 11/02/20 17:59 10/05/20 18:37 Chlorhexidine Gluconate (Jazmin-Hex 2%) 1 applic DAILY@1999 TOPIC 09/26/20 20:00 12/25/20 19:59 10/05/20 20:31 Dextrose (Dextrose 50%) 25 ml Q30M PRN IV Hypoglycemia 09/25/20 15:30 12/24/20 15:29 Dextrose (Dextrose 50%) 50 ml Q30M PRN IV Hypoglycemia 09/25/20 15:30 12/24/20 15:29 Heparin Sodium (Porcine) (Heparin 5000 units/ml) 5,000 units EVERY 12 HOURS SUBQ 09/25/20 09:00 11/09/20 08:59 10/05/20 20:32 Insulin Aspart (NovoLOG) Q6HR SUBQ 10/04/20 00:00 01/02/21 00:00 10/05/20 23:42 Meropenem 1 gm/ Sodium Chloride 55 ml @ 110 mls/hr Q8H IVPB 10/05/20 18:00 10/10/20 17:59 10/06/20 01:36 Midodrine (Pro-Amatine) 10 mg Q8HR GT 09/30/20 14:00 12/29/20 13:59 10/06/20 05:18 Ondansetron HCl (Zofran) 4 mg Q6H PRN IVP Nausea & Vomiting 09/25/20 00:15 10/25/20 00:14 Pantoprazole (Protonix) 40 mg Q12HR IVP 09/25/20 21:00 10/25/20 08:59 10/05/20 20:31 Polyethylene Glycol (Miralax) 17 gm DAILYPRN PRN ORAL Constipation 09/25/20 00:15 10/25/20 00:14 Vancomycin HCl ([facility] pharmacy to dose) 1 ea DAILY PRN MISC Per rx protocol 09/30/20 13:45 10/30/20 13:44 Vancomycin HCl 500 mg/Dextrose 110 ml @ 110 mls/hr Q12H IVPB 10/01/20 20:00 10/06/20 19:59 10/05/20 20:31 Marixa Oliva M.D. Oct 06, 2020 08:51
[2020-10-06] MEDS: Pantoprazole Inj IVP SCH ×2 (09:00→20:32)
[2020-10-06] MEDS: Ascorbic Acid 500mg tab GT SCH ×2 (09:00→18:23)
[2020-10-06] MEDS: Heparin 5000 units/ml inj SUBQ SCH ×2 (09:00→20:01)
--- NOTE | 2020-10-06 10:38 | General Progress Note ---
Progress Note Progress Note Patient has persistent fever. ID is recommending CT of chest and abdomen with contrast. Pt can not sign his consents and doesn't have anybody to sign them for him. It is a medica emergency to find out the source of the patients fever. Latanya Mckeon MD Oct 06, 2020 10:38
--- NOTE | 2020-10-06 10:59 | Nephrology Progress Note ---
Assessment/Plan Problem List: (1) KELLY (acute kidney injury) (2) Dehydration (3) Hypernatremia (4) Severe sepsis (5) History of CVA (cerebrovascular accident) (6) Parkinson disease (7) Acute respiratory failure (8) Elevated lipase Assessment KELLY, Hypernatremia, dehydration, free water deficit Sepsis Acute respiratory failure requiring intubation and mechanical ventilation Diabetes mellitus [id number] GT feeding History of CVA History of hypertension Parkinson's disease Elevated lipase Plan October 06: Labs reviewed. K-Phos replaced. Will give another liter of D5W. Continue to monitor electrolytes and renal parameters. October 05: Labs reviewed. Serum sodium rising. 1 L D5W IV ordered. Continue to monitor electrolytes. Continue per consultants. October 04: No CHEM panel was done today. Patient remain intubated on ventilator and full code. We will order labs tomorrow. Continue per consultants. October 03: Discussed with RN. Labs are reviewed. Potassium and phosphate replacement ordered. Continue per consultants. Patient remains full code intubated on ventilator. Serum creatinine up to 1.5. Continue to monitor renal parameters. October 02: Remains in ICU and intubated. Labs reviewed. Serum creatinine 1.3. Serum sodium slightly elevated. Continue to monitor renal parameters and electrolytes. October 01: Seen in ICU. Discussed with RN. No chemistry panel done today. Blood pressure hovering around 100 systolic. Will check labs tomorrow. Continue per consultants. September 30: Labs reviewed. Renal parameters stable. Blood pressure hovering around 90s systolic. We will add midodrine through GT tube. Continue per consultants. September 29: Labs reviewed. Serum creatinine down to 1.3 and electrolytes reviewed. Abnormal electrolytes addressed. Continue per consultants. September 28: Labs reviewed. Creatinine 1.6 unchanged. Hypernatremia persists. Will give 1 L of D5W. Continue to monitor renal parameters and electrolytes. Continue per consultants. September 27: Labs reviewed. Serum sodium lowering. Serum creatinine lowering. Blood sugar somewhat better controlled. Patient continues to be on free water through tube feeding. Continue to monitor renal parameters and electrolytes. Abnormal electrolytes addressed. September 26: IV fluids stopped. Patient receiving free water reviewed NG tube. Patient full code. Intubated on ventilator. Discussed with JOHNNY Christensen. Continue to monitor renal parameters. Serum creatinine lower but abnormal electrolyte persists and was addressed. Previously: IV fluid half-normal saline 125 cc an hour Albumin fluid challenge Monitor electrolytes Monitor renal parameters Hold blood pressure medication since blood pressure low Per orders, per consultants Subjective ROS Limited/Unobtainable: Yes Objective Objective Last 24 Hour Vital Signs Date Time Temp Pulse Resp B/P (MAP) Pulse Ox O2 Delivery O2 Flow Rate FiO2 10/06/20 07:00 89 16 114/64 (81) 100 10/06/20 06:00 89 16 110/53 (72) 100 10/06/20 05:30 95 16 96/53 (67) 100 10/06/20 05:00 114 17 101/62 (75) 100 10/06/20 04:49 100.8 10/06/20 04:00 87 10/06/20 04:00 Mechanical Ventilator 10/06/20 04:00 40 10/06/20 04:00 101.6 109 13 124/69 (87) 100 10/06/20 03:00 97 16 117/70 (86) 100 10/06/20 02:31 81 16 40 10/06/20 02:00 85 16 113/54 (73) 100 10/06/20 01:00 99 16 117/55 (75) 100 10/06/20 00:00 Mechanical Ventilator 10/06/20 00:00 98 10/06/20 00:00 98.6 95 16 128/60 (82) 100 10/06/20 00:00 40 10/05/20 23:00 85 18 118/60 (79) 100 10/05/20 22:40 111 15 40 10/05/20 22:00 92 21 122/58 (79) 100 10/05/20 21:00 90 16 115/63 (80) 100 10/05/20 20:00 40 10/05/20 20:00 98 10/05/20 20:00 98.9 90 19 128/62 (84) 100 10/05/20 20:00 Mechanical Ventilator 10/05/20 19:11 99 17 40 10/05/20 19:00 103 17 98/63 (75) 100 10/05/20 18:00 114 16 104/61 (75) 100 10/05/20 17:00 99 19 112/71 (85) 100 10/05/20 16:00 98.8 85 16 117/55 (75) 100 10/05/20 16:00 Mechanical Ventilator 10/05/20 16:00 94 10/05/20 16:00 40 10/05/20 15:00 82 16 116/55 (75) 100 10/05/20 14:30 94 16 40 10/05/20 14:00 94 16 112/54 (73) 100 10/05/20 13:00 100 16 98/62 (74) 100 10/05/20 12:00 40 10/05/20 12:00 Mechanical Ventilator 10/05/20 12:00 92 10/05/20 12:00 99.9 100 16 102/55 (71) 100 10/05/20 11:08 111 17 100 Endotrachael Tube 40 10/05/20 11:06 111 17 40 10/05/20 11:00 116 16 111/53 (72) 100 Intake and Output 10/05/20 10/06/20 19:00 07:00 Intake Total 860 ml 420 ml Output Total 1150 ml 960 ml Balance -290 ml -540 ml Intake Free Water 250 ml IV Total 610 ml 420 ml Tube Feeding 0 ml 0 ml Output Urine Total 1150 ml 960 ml # Bowel Movements 1 Laboratory Tests 10/06/20 04:40: White Blood Count 10.9H, Red Blood Count 3.30L, Hemoglobin 8.7L, Hematocrit 25.9L, Mean Corpuscular Volume 78L, Mean Corpuscular Hemoglobin 26.3L, Mean Corpuscular Hemoglobin Concent 33.5, Red Cell Distribution Width 15.5H, Platelet Count 435, Mean Platelet Volume 8.5, Neutrophils (%) (Auto) 62.5, Lymphocytes (%) (Auto) 29.2, Monocytes (%) (Auto) 5.8, Eosinophils (%) (Auto) 1.4, Basophils (%) (Auto) 1.1, Erythrocyte Sedimentation Rate 125H, Sodium Level 151H, Potassium Level 3.1L, Chloride Level 116H, Carbon Dioxide Level 27, Anion Gap 8, Blood Urea Nitrogen 9, Creatinine 1.4H, Estimat Glomerular Filtration Rate 59.3, Glucose Level 179H, Uric Acid 6.5, Calcium Level 9.4, Phosphorus Level 1.5L, Magnesium Level 1.8, Total Bilirubin 0.3, Aspartate Amino Transf (AST/SGOT) 13L, Alanine Aminotransferase (ALT/SGPT) 8L, Alkaline Phosphatase 147H, C-Reactive Protein, Quantitative 18.7H, Total Protein 7.3, Albumin 1.5L, Globulin 5.8, Albumin/Globulin Ratio 0.3L 10/06/20 05:16: POC Whole Blood Glucose [Pending] Height (Feet): 5 Height (Inches): 10.00 Weight (Pounds): 180 General Appearance: no apparent distress EENT: other - Intubated on ventilator Cardiovascular: tachycardia Respiratory/Chest: decreased breath sounds Abdomen: distended Eddie Nelson MD Oct 06, 2020 10:59
[2020-10-06] MEDS: Potassium Phosphate 15mm/250ml 250 ML IVPB SCH ×2 (11:00→15:00)
--- NOTE | 2020-10-06 12:19 | Surgery Progress Note ---
Surgery Progress Note Subjective Additional Comments leukocytosis esr noted pending CT scan Objective Last 24 Hour Vital Signs Date Time Temp Pulse Resp B/P (MAP) Pulse Ox O2 Delivery O2 Flow Rate FiO2 10/06/20 11:00 97 16 105/54 (71) 100 10/06/20 10:00 94 16 100/55 (70) 100 10/06/20 09:00 Mechanical Ventilator 10/06/20 09:00 97 16 102/58 (73) 100 10/06/20 08:00 40 10/06/20 08:00 96 10/06/20 08:00 96 16 99/57 (71) 100 10/06/20 07:00 89 16 114/64 (81) 100 10/06/20 06:00 89 16 110/53 (72) 100 10/06/20 05:30 95 16 96/53 (67) 100 10/06/20 05:00 114 17 101/62 (75) 100 10/06/20 04:49 100.8 10/06/20 04:00 87 10/06/20 04:00 Mechanical Ventilator 10/06/20 04:00 40 10/06/20 04:00 101.6 109 13 124/69 (87) 100 10/06/20 03:00 97 16 117/70 (86) 100 10/06/20 02:31 81 16 40 10/06/20 02:00 85 16 113/54 (73) 100 10/06/20 01:00 99 16 117/55 (75) 100 10/06/20 00:00 Mechanical Ventilator 10/06/20 00:00 98 10/06/20 00:00 98.6 95 16 128/60 (82) 100 10/06/20 00:00 40 10/05/20 23:00 85 18 118/60 (79) 100 10/05/20 22:40 111 15 40 10/05/20 22:00 92 21 122/58 (79) 100 10/05/20 21:00 90 16 115/63 (80) 100 10/05/20 20:00 40 10/05/20 20:00 98 10/05/20 20:00 98.9 90 19 128/62 (84) 100 10/05/20 20:00 Mechanical Ventilator 10/05/20 19:11 99 17 40 10/05/20 19:00 103 17 98/63 (75) 100 10/05/20 18:00 114 16 104/61 (75) 100 10/05/20 17:00 99 19 112/71 (85) 100 10/05/20 16:00 98.8 85 16 117/55 (75) 100 10/05/20 16:00 Mechanical Ventilator 10/05/20 16:00 94 10/05/20 16:00 40 10/05/20 15:00 82 16 116/55 (75) 100 10/05/20 14:30 94 16 40 10/05/20 14:00 94 16 112/54 (73) 100 10/05/20 13:00 100 16 98/62 (74) 100 I&O Intake and Output 10/05/20 10/06/20 19:00 07:00 Intake Total 860 ml 420 ml Output Total 1150 ml 960 ml Balance -290 ml -540 ml Intake Free Water 250 ml IV Total 610 ml 420 ml Tube Feeding 0 ml 0 ml Output Urine Total 1150 ml 960 ml # Bowel Movements 1 Dressing: saturated Cardiovascular: RSR Respiratory: decreased breath sounds Abdomen: soft, non-tender, present bowel sounds, non-distended Extremities: edema, no tenderness, no cyanosis Laboratory Tests Test 10/06/20 04:40 10/06/20 05:16 White Blood Count 10.9 K/UL (4.8-10.8) H Red Blood Count 3.30 M/UL (4.70-6.10) L Hemoglobin 8.7 G/DL (14.2-18.0) L Hematocrit 25.9 % (42.0-52.0) L Mean Corpuscular Volume 78 FL (80-99) L Mean Corpuscular Hemoglobin 26.3 PG (27.0-31.0) L Mean Corpuscular Hemoglobin Concent 33.5 G/DL (32.0-36.0) Red Cell Distribution Width 15.5 % (11.6-14.8) H Platelet Count 435 K/UL (150-450) Mean Platelet Volume 8.5 FL (6.5-10.1) Neutrophils (%) (Auto) 62.5 % (45.0-75.0) Lymphocytes (%) (Auto) 29.2 % (20.0-45.0) Monocytes (%) (Auto) 5.8 % (1.0-10.0) Eosinophils (%) (Auto) 1.4 % (0.0-3.0) Basophils (%) (Auto) 1.1 % (0.0-2.0) Erythrocyte Sedimentation Rate 125 MM/HR (0-20) H Sodium Level 151 MMOL/L (136-145) H Potassium Level 3.1 MMOL/L (3.5-5.1) L Chloride Level 116 MMOL/L (98-107) H Carbon Dioxide Level 27 MMOL/L (21-32) Anion Gap 8 mmol/L (5-15) Blood Urea Nitrogen 9 mg/dL (7-18) Creatinine 1.4 MG/DL (0.55-1.30) H Estimat Glomerular Filtration Rate 59.3 mL/min (>60) Glucose Level 179 MG/DL (74-106) H Uric Acid 6.5 MG/DL (2.6-7.2) Calcium Level 9.4 MG/DL (8.5-10.1) Phosphorus Level 1.5 MG/DL (2.5-4.9) L Magnesium Level 1.8 MG/DL (1.8-2.4) Total Bilirubin 0.3 MG/DL (0.2-1.0) Aspartate Amino Transf (AST/SGOT) 13 U/L (15-37) L Alanine Aminotransferase (ALT/SGPT) 8 U/L (12-78) L Alkaline Phosphatase 147 U/L (46-116) H C-Reactive Protein, Quantitative 18.7 mg/dL (0.00-0.90) H Total Protein 7.3 G/DL (6.4-8.2) Albumin 1.5 G/DL (3.4-5.0) L Globulin 5.8 g/dL Albumin/Globulin Ratio 0.3 (1.0-2.7) L POC Whole Blood Glucose Pending Plan Problems: (1) Hypoxia (2) Severe sepsis Assessment & Plan: leukocytosis lactic acidosis anemia renal insufficiency on support in ICU dressings changed and care plan initiated cont abx trend labs if fluids am imaging ordered remains febrile cont abx cooling measures worsening respiratory cont support CT pending results Non-Blanchable erythema noted to R and L earlobes. Erythematous, scaly pimple- like rash,some of which are scaly and others small papules noted to R and L ax illae, upper R and L chest and back ,R and L groin areas. Pt observed to persistently scratch affected areas described. Incontinence Associated Dermatitis Buttocks, R and L Ischial tuberosities are erythematous,denuded with shearing and scattered satellite lesions. Per staff pt frequently removes or dislodges Condom cath. R Heel is boggy with non-blanchable erythema. L Heel is boggy with Non-Blanchable erythema. Pt presented on admission with Multiple Pressure Injuries. Sacral DTPI which extends into R and L Gluteal cheeks and is partially opened upper R gluteus (L)14cm x (W)15cm. DTPI noted within hypertrophic scar from previous Pressure injury. Base of wound is purpuric at rm cleft ,and indurated. Non-Blanchable erythema with additional shearing periwound. An area of induration with darker skin tone noted to L Ischium. Darker skin tone without induration R Ischium. Scrotum is erythematous and swollen. DTPI L Heel and Plantar L Heel(L)4cm x (W)3.5cm. Base of Pressure Injury roca colored Blister with darker center. Periwound is fluctuant with non-Blanchable erythema. DTPI R Heel (L)2.7cm x (W)4cm. Non-Blanchable erythema without induration/fluctuance R Hallux. Non-Blanchable erythema without induration/fluctuance L Hallux. Tx.Plan:Apply Cavilon Skin Barrier to both R and L ears.(Pad Oxygen Tubing as Needed.) Apply Moisture Barrier Paste to bilat groin and bilat ischial tuberosities with eqach Incontinence care. Apply Cavilon Skin Barrier to both heels. Cover each heel with Optifoam drsg. Change every 7 days and prn. Cleanse Sacral wound with Saline. Apply Therahoney. Apply Moisture Barrier Paste periwound. Cover with Optifoam drsg. Change every 3 days and prn. Apply Moisture Barrier Paste to Scrotum,R and L ischial tuberosities with each incontinence care. Apply Cavilon Skin Barrier to R and L Hallux. Cover each site with Optifoam drsgs. Change every 7 days and prn. Reposition at least every 2hours or as tolerated. Off-load heels with pillow. APM/ALEK Mattress overlay improving cont current care tube site okay DAILY ESTIMATED NEEDS: Needs based on Critical care, DM, Wound/ 62.73kg 22-30 kcals/kg 8746-0497 total kcals 1.25-2 g protein/kg 78-125 g total protein 25-30 mL/kg 2847-4246 total fluid mLs NUTRITION DIAGNOSIS: * Swallowing difficulty R/T dysphagia as evidenced by Pt is GT dep, currently orally intubated, off pressor support, on GT feeds. CURRENT TF:NPO ENTERAL NUTRITION RECOMMENDATIONS: Glucerna 1.2 @ 55ml/hr x 24 hrs to provide 1320ml, 1584kcal, 79g prot, 1063ml free water * Maintain current TF: meets 100 % est kcal/prot needs * HOB over 30 degrees * H2O flush of 180ml q 6hrs ADDITIONAL RECOMMENDATIONS: * Per SNF: HT=5'7" WT= 138lbs (as of Sep 13, 2020) * Monitor hemodynamic stability: NE @ 8mcg-> now off * Wound healing: TF rec @ goal provides 100% RDI add Vit C 500mg QD + Terrance BID via TF * Monitor lytes, replete as needed * Rec long acting insulin for improved BG control . (3) Dehydration (4) Hypernatremia (5) Clostridium difficile colitis (6) Staphylococcus aureus bacteremia (7) Hip fracture, left (8) Diabetes mellitus (9) History of hypertension (10) Severe protein-calorie malnutrition (11) Acute encephalopathy (12) Pressure Ulcer Of Sacral Region, Unstageable (13) Feeding by G-tube (14) Abdominal distention (15) Multiple drug resistant organism (MDRO) culture positive (16) Sepsis (17) History of CVA (cerebrovascular accident) (18) Parkinson disease James Breen Oct 06, 2020 12:19
--- NOTE | 2020-10-06 15:04 | Internal Med Progress Note ---
Subjective Physician Name Cirilo Rome Attending Physician Cirilo Rome MD Current Medications Medications (Trade) Dose Ordered Sig/Debi Route PRN Reason Start Time Stop Time Status Last Admin Dose Admin Acetaminophen (Tylenol) 650 mg Q4H PRN GT FEVER 10/03/20 01:15 11/02/20 01:14 10/06/20 04:19 Ascorbic Acid (Vitamin C) 250 mg TWICE A DAY GT 10/03/20 18:00 11/02/20 17:59 10/06/20 09:00 Chlorhexidine Gluconate (Jazmin-Hex 2%) 1 applic DAILY@2000 TOPIC 09/26/20 20:00 12/25/20 19:59 10/05/20 20:31 Dextrose 1,000 ml @ 100 mls/hr Q10H ONCE IV 10/06/20 11:07 10/06/20 21:06 10/06/20 12:00 Dextrose (Dextrose 50%) 25 ml Q30M PRN IV Hypoglycemia 09/25/20 15:30 12/24/20 15:29 Dextrose (Dextrose 50%) 50 ml Q30M PRN IV Hypoglycemia 09/25/20 15:30 12/24/20 15:29 Heparin Sodium (Porcine) (Heparin 5000 units/ml) 5,000 units EVERY 12 HOURS SUBQ 09/25/20 09:00 11/09/20 08:59 10/06/20 09:00 Insulin Aspart (NovoLOG) Q6HR SUBQ 10/04/20 00:00 01/02/21 00:00 10/05/20 23:42 Meropenem 1 gm/ Sodium Chloride 55 ml @ 110 mls/hr Q8H IVPB 10/05/20 18:00 10/10/20 17:59 10/06/20 10:11 Midodrine (Pro-Amatine) 10 mg Q8HR GT 09/30/20 14:00 12/29/20 13:59 10/06/20 05:18 Ondansetron HCl (Zofran) 4 mg Q6H PRN IVP Nausea & Vomiting 09/25/20 00:15 10/25/20 00:14 Pantoprazole (Protonix) 40 mg Q12HR IVP 09/25/20 21:00 10/25/20 08:59 10/06/20 09:00 Polyethylene Glycol (Miralax) 17 gm DAILYPRN PRN ORAL Constipation 09/25/20 00:15 10/25/20 00:14 Potassium Phosphate 250 ml @ 62.5 mls/hr Q4H IVPB 10/06/20 11:00 10/06/20 18:59 10/06/20 11:00 Vancomycin HCl (Vanco pharmacy to dose) 1 ea DAILY PRN MISC Per rx protocol 09/30/20 13:45 10/06/20 23:59 Vancomycin HCl 500 mg/Dextrose 110 ml @ 110 mls/hr Q12H IVPB 10/01/20 20:00 10/06/20 19:59 10/06/20 08:00 Allergies: Coded Allergies: No Known Allergies (Unverified , 08/27/19) Subjective in ICU, intubated, remained on ventilation, awake, responsive, open his eyes, WBC: 10.9 decreasing, spike a fever. Objective Last Vital Signs Date Time Temp Pulse Resp B/P (MAP) Pulse Ox O2 Delivery O2 Flow Rate FiO2 10/06/20 13:00 105 16 110/60 (77) 100 10/06/20 12:00 Mechanical Ventilator 10/06/20 12:00 40 10/06/20 12:00 100.2 09/28/20 16:00 40.0 Laboratory Tests Test 10/06/20 04:40 10/06/20 05:16 White Blood Count 10.9 K/UL (4.8-10.8) H Red Blood Count 3.30 M/UL (4.70-6.10) L Hemoglobin 8.7 G/DL (14.2-18.0) L Hematocrit 25.9 % (42.0-52.0) L Mean Corpuscular Volume 78 FL (80-99) L Mean Corpuscular Hemoglobin 26.3 PG (27.0-31.0) L Mean Corpuscular Hemoglobin Concent 33.5 G/DL (32.0-36.0) Red Cell Distribution Width 15.5 % (11.6-14.8) H Platelet Count 435 K/UL (150-450) Mean Platelet Volume 8.5 FL (6.5-10.1) Neutrophils (%) (Auto) 62.5 % (45.0-75.0) Lymphocytes (%) (Auto) 29.2 % (20.0-45.0) Monocytes (%) (Auto) 5.8 % (1.0-10.0) Eosinophils (%) (Auto) 1.4 % (0.0-3.0) Basophils (%) (Auto) 1.1 % (0.0-2.0) Erythrocyte Sedimentation Rate 125 MM/HR (0-20) H Sodium Level 151 MMOL/L (136-145) H Potassium Level 3.1 MMOL/L (3.5-5.1) L Chloride Level 116 MMOL/L (98-107) H Carbon Dioxide Level 27 MMOL/L (21-32) Anion Gap 8 mmol/L (5-15) Blood Urea Nitrogen 9 mg/dL (7-18) Creatinine 1.4 MG/DL (0.55-1.30) H Estimat Glomerular Filtration Rate 59.3 mL/min (>60) Glucose Level 179 MG/DL (74-106) H Uric Acid 6.5 MG/DL (2.6-7.2) Calcium Level 9.4 MG/DL (8.5-10.1) Phosphorus Level 1.5 MG/DL (2.5-4.9) L Magnesium Level 1.8 MG/DL (1.8-2.4) Total Bilirubin 0.3 MG/DL (0.2-1.0) Aspartate Amino Transf (AST/SGOT) 13 U/L (15-37) L Alanine Aminotransferase (ALT/SGPT) 8 U/L (12-78) L Alkaline Phosphatase 147 U/L (46-116) H C-Reactive Protein, Quantitative 18.7 mg/dL (0.00-0.90) H Total Protein 7.3 G/DL (6.4-8.2) Albumin 1.5 G/DL (3.4-5.0) L Globulin 5.8 g/dL Albumin/Globulin Ratio 0.3 (1.0-2.7) L POC Whole Blood Glucose Pending Intake and Output 10/05/20 10/06/20 19:00 07:00 Intake Total 860 ml 420 ml Output Total 1150 ml 960 ml Balance -290 ml -540 ml Intake Free Water 250 ml IV Total 610 ml 420 ml Tube Feeding 0 ml 0 ml Output Urine Total 1150 ml 960 ml # Bowel Movements 1 Objective PHYSICAL EXAMINATION: GENERAL: intubated, open his eyes, await, responsive, HEENT: Eyes, pupils are equal responsive to light and accommodation. ET tube. NECK: Supple No JVD CHEST: mechanical breath sound, decreased air at bases, no wheezes. CARDIOVASCULAR: Regular rate. S1 and S2 normal without murmurs, ABDOMEN: Soft, nontender, and nondistended. Positive bowel sounds. PEG site intact. EXTREMITIES: Negative for clubbing, cyanosis, +1 LE's edema. NEUROLOGIC: limited secondary to patient's status, unable to move extremities. Assessment/Plan Assessment/Plan ASSESSMENT: This is a 80-year-old male. 1. Acute hypoxemic Respiratory failure. 2. Bilateral pneumonia. 3. Hypertension. 4. Diabetes type 2. 5. Hypercholesterolemia. 6. Parkinson disease. 7. COVID-19 negative. 8. Ulcerative proctitis. 9. Benign prostatic hypertrophy. 10. Gastroesophageal reflux disease. 11. Urinary tract infection=proteus mirabilis 12. Sepsis=coag neg staph TREATMENT: 1. Pneumonia/respiratory failure. Infectious diseases = Drs. Oliva. A Pulmonary/Critical care= Dr. Latanya Mckeon. The patient is currently intubated on the mechanical ventilator in the intensive care unit. Follow recommendation of Infectious Diseases. 2. Urinary tract infection. ABX= Ertapenem An Infectious Disease consultation has been obtained with Dr. Harris. 3. Hypertension. The patient is currently hypotensive. 4. Diabetes type 2. NovoLog sliding scale has been instituted. 5. Hypercholesterolemia. Continue simvastatin as above. 6. Parkinson disease. 7. Ulcerative proctitis. 8. Benign prostatic hypertrophy. 9. Gastroesophageal reflux disease. 10. Dysphagia. On feeding . Cirilo Rome MD Oct 06, 2020 15:04
--- NOTE | 2020-10-06 17:30 | Pulmonolgy Critical Care Note ---
Critical Care - Asmt/Plan Problems: (1) Acute respiratory failure (2) Severe sepsis (3) Diabetes mellitus (4) Severe protein-calorie malnutrition (5) History of hypertension (6) History of CVA (cerebrovascular accident) (7) Parkinson disease (8) Feeding by G-tube Respiratory: monitor respiratory rate, adjust FIO2, CXR Cardiac: continue pressors, continue to monitor HR/BP Renal: F/U I&O, keep IV fluid, check electrolytes Infectious Disease: check cultures, continue antibiotics Gastrointestinal: continue feedings/current rate Endocrine: continue sliding scale insulin Hematologic: monitor H/H, transfuse if hgb<8.5 Neurologic: PRN Ativan, keep patient comfortable Affect: PRN ativan Prophylaxis: Protonix, Heparin Time Spent (Minutes): 40 Notes Reviewed: client development consultant, cardio, renal Discussed with: nurses, consultants, case investigatorautomotive internet sales manager - Objective Last 24 Hour Vital Signs Date Time Temp Pulse Resp B/P (MAP) Pulse Ox O2 Delivery O2 Flow Rate FiO2 10/06/20 17:00 102 16 123/71 (88) 100 10/06/20 16:00 40 10/06/20 16:00 101 10/06/20 16:00 Mechanical Ventilator 10/06/20 16:00 99.8 103 16 116/60 (78) 100 10/06/20 15:00 103 16 112/59 (76) 100 10/06/20 14:00 103 16 95/61 (72) 100 10/06/20 13:00 105 16 110/60 (77) 100 10/06/20 12:00 Mechanical Ventilator 10/06/20 12:00 40 10/06/20 12:00 108 10/06/20 12:00 100.2 100 16 118/68 (85) 100 10/06/20 11:00 97 16 105/54 (71) 100 10/06/20 10:00 94 16 100/55 (70) 100 10/06/20 09:00 Mechanical Ventilator 10/06/20 09:00 97 16 102/58 (73) 100 10/06/20 08:00 40 10/06/20 08:00 96 10/06/20 08:00 96 16 99/57 (71) 100 10/06/20 07:00 89 16 114/64 (81) 100 10/06/20 06:00 89 16 110/53 (72) 100 10/06/20 05:30 95 16 96/53 (67) 100 10/06/20 05:00 114 17 101/62 (75) 100 10/06/20 04:49 100.8 10/06/20 04:00 87 10/06/20 04:00 Mechanical Ventilator 10/06/20 04:00 40 10/06/20 04:00 101.6 109 13 124/69 (87) 100 10/06/20 03:00 97 16 117/70 (86) 100 10/06/20 02:31 81 16 40 10/06/20 02:00 85 16 113/54 (73) 100 10/06/20 01:00 99 16 117/55 (75) 100 10/06/20 00:00 Mechanical Ventilator 10/06/20 00:00 98 10/06/20 00:00 98.6 95 16 128/60 (82) 100 10/06/20 00:00 40 10/05/20 23:00 85 18 118/60 (79) 100 10/05/20 22:40 111 15 40 10/05/20 22:00 92 21 122/58 (79) 100 10/05/20 21:00 90 16 115/63 (80) 100 10/05/20 20:00 40 10/05/20 20:00 98 10/05/20 20:00 98.9 90 19 128/62 (84) 100 10/05/20 20:00 Mechanical Ventilator 10/05/20 19:11 99 17 40 10/05/20 19:00 103 17 98/63 (75) 100 10/05/20 18:00 114 16 104/61 (75) 100 Status: sedated Condition: critical HEENT: normocephalic Neck: full ROM Lungs: chest wall tender Heart: HR/BP stable Abdomen: soft, active bowel sounds Decubiti: location Accucheck: 190 Critical Care - Subjective ROS Limited/Unobtainable: Yes Condition: critical EKG Rhythm: Sinus Rhythm FI02: 40 Vent Support Breath Rate: 16 Vent Support Mode: AC Vent Tidal Volume: 600 Sputum Amount: Small PEEP: 0.0 PIP: 37 Tube Feeding Amount: 0 I&O: Intake and Output 10/05/20 10/06/20 19:00 07:00 Intake Total 860 ml 420 ml Output Total 1150 ml 960 ml Balance -290 ml -540 ml Intake Free Water 250 ml IV Total 610 ml 420 ml Tube Feeding 0 ml 0 ml Output Urine Total 1150 ml 960 ml # Bowel Movements 1 ET-Tube: 7.0 ET Position: 23 Labs: Laboratory Tests Test 10/06/20 04:40 10/06/20 05:16 White Blood Count 10.9 K/UL (4.8-10.8) H Red Blood Count 3.30 M/UL (4.70-6.10) L Hemoglobin 8.7 G/DL (14.2-18.0) L Hematocrit 25.9 % (42.0-52.0) L Mean Corpuscular Volume 78 FL (80-99) L Mean Corpuscular Hemoglobin 26.3 PG (27.0-31.0) L Mean Corpuscular Hemoglobin Concent 33.5 G/DL (32.0-36.0) Red Cell Distribution Width 15.5 % (11.6-14.8) H Platelet Count 435 K/UL (150-450) Mean Platelet Volume 8.5 FL (6.5-10.1) Neutrophils (%) (Auto) 62.5 % (45.0-75.0) Lymphocytes (%) (Auto) 29.2 % (20.0-45.0) Monocytes (%) (Auto) 5.8 % (1.0-10.0) Eosinophils (%) (Auto) 1.4 % (0.0-3.0) Basophils (%) (Auto) 1.1 % (0.0-2.0) Erythrocyte Sedimentation Rate 125 MM/HR (0-20) H Sodium Level 151 MMOL/L (136-145) H Potassium Level 3.1 MMOL/L (3.5-5.1) L Chloride Level 116 MMOL/L (98-107) H Carbon Dioxide Level 27 MMOL/L (21-32) Anion Gap 8 mmol/L (5-15) Blood Urea Nitrogen 9 mg/dL (7-18) Creatinine 1.4 MG/DL (0.55-1.30) H Estimat Glomerular Filtration Rate 59.3 mL/min (>60) Glucose Level 179 MG/DL (74-106) H Uric Acid 6.5 MG/DL (2.6-7.2) Calcium Level 9.4 MG/DL (8.5-10.1) Phosphorus Level 1.5 MG/DL (2.5-4.9) L Magnesium Level 1.8 MG/DL (1.8-2.4) Total Bilirubin 0.3 MG/DL (0.2-1.0) Aspartate Amino Transf (AST/SGOT) 13 U/L (15-37) L Alanine Aminotransferase (ALT/SGPT) 8 U/L (12-78) L Alkaline Phosphatase 147 U/L (46-116) H C-Reactive Protein, Quantitative 18.7 mg/dL (0.00-0.90) H Total Protein 7.3 G/DL (6.4-8.2) Albumin 1.5 G/DL (3.4-5.0) L Globulin 5.8 g/dL Albumin/Globulin Ratio 0.3 (1.0-2.7) L POC Whole Blood Glucose Pending Latanya Mckeon MD Oct 06, 2020 17:30
[2020-10-06] MEDS: Dyna-Hex 2% Top Sol 2oz TOPIC SCH (20:32)
[2020-10-07] VITALS (25 sets, daily range): BP systolic 81–133; BP diastolic 51–73
[2020-10-07] MEDS: Meropenem 1 GM in NS 55 ML IVPB SCH ×3 (01:21→17:37)
[2020-10-07] MEDS: Midodrine 10mg tab GT SCH ×3 (05:37→21:49)
[2020-10-07] MEDS: NovoLOG Insulin Flexpen SUBQ SCH ×4 (05:38→23:15)
[2020-10-07 06:04] LABS: BASOPHILS % (AUTO) 0.9 % (0.0-2.0); EOSINOPHILS % (AUTO) 1.4 % (0.0-3.0); HEMATOCRIT 27.6 % (42.0-52.0); HEMOGLOBIN 8.8 G/DL (14.2-18.0); LYMPHOCYTES % (AUTO) 35.2 % (20.0-45.0); MEAN CORPUSCULAR VOLUME 83 FL (80-99); MONOCYTES % (AUTO) 6.3 % (1.0-10.0); NEUTROPHILS % (AUTO) 56.3 % (45.0-75.0); PLATELET COUNT 468 K/UL (150-450); RED BLOOD COUNT 3.34 M/UL (4.70-6.10); RED CELL DISTRIBUTION WIDTH 15.9 % (11.6-14.8); WHITE BLOOD COUNT 10.6 K/UL (4.8-10.8)
[2020-10-07 06:56] LABS: ALANINE AMINOTRANSFERASE 12 U/L (12-78); ALBUMIN 1.7 G/DL (3.4-5.0); ALBUMIN/GLOBULIN RATIO 0.3 (1.0-2.7); ALKALINE PHOSPHATASE 146 U/L (46-116); ANION GAP 11 mmol/L (5-15); ASPARTATE AMINO TRANSFERASE 16 U/L (15-37); BILIRUBIN,TOTAL 0.3 MG/DL (0.2-1.0); BLOOD UREA NITROGEN 8 mg/dL (7-18); CARBON DIOXIDE 25 MMOL/L (21-32); CHLORIDE 116 MMOL/L (98-107); CREATININE 1.2 MG/DL (0.55-1.30); SODIUM 152 MMOL/L (136-145)
[2020-10-07 07:14] LABS: CALCIUM 9.1 MG/DL (8.5-10.1)
[2020-10-07] MEDS: Pantoprazole Inj IVP SCH ×2 (08:47→21:49)
[2020-10-07] MEDS: Ascorbic Acid 500mg tab GT SCH ×2 (08:47→17:37)
[2020-10-07] MEDS: Heparin 5000 units/ml inj SUBQ SCH ×2 (08:49→21:50)
--- NOTE | 2020-10-07 09:13 | Diagnostic Imaging Report ---
EXAM: XR Chest, 1 View CLINICAL HISTORY: DYSPNEA TECHNIQUE: Frontal view of the chest. COMPARISON: Chest x-ray 10/03/20 FINDINGS: Lungs: Improving bilateral interstitial and airspace opacities with mild persistent left lower lobe airspace disease. Pleural space: Unremarkable. No pneumothorax. Heart: Unremarkable. No cardiomegaly. Mediastinum: Unremarkable. Bones/joints: Unremarkable. Tubes, lines and devices: Endotracheal tube is stable. IMPRESSION: Improving bilateral interstitial and airspace opacities with mild persistent left lower lobe airspace disease.
--- NOTE | 2020-10-07 11:48 | Surgery Progress Note ---
Surgery Progress Note Subjective Additional Comments labs noted exam stable no n/v eyes open Objective Last 24 Hour Vital Signs Date Time Temp Pulse Resp B/P (MAP) Pulse Ox O2 Delivery O2 Flow Rate FiO2 10/07/20 11:10 92 16 40 10/07/20 11:00 95 16 90/57 (68) 100 10/07/20 10:00 95 16 130/56 (80) 100 10/07/20 09:00 99.3 90 16 91/66 (74) 100 10/07/20 08:00 Mechanical Ventilator 10/07/20 08:00 103 16 106/62 (77) 100 10/07/20 08:00 40 10/07/20 08:00 90 10/07/20 07:30 96 16 40 10/07/20 07:00 112 17 106/58 (74) 100 10/07/20 06:00 106 16 109/55 (73) 100 10/07/20 05:00 115 15 81/53 (62) 100 10/07/20 04:00 99.2 92 16 133/66 (88) 100 10/07/20 04:00 108 10/07/20 04:00 Mechanical Ventilator 10/07/20 04:00 40 10/07/20 03:16 117 16 40 10/07/20 03:00 100 16 109/63 (78) 100 10/07/20 02:00 94 16 127/73 (91) 100 10/07/20 01:00 96 16 102/59 (73) 100 10/07/20 00:30 93 16 122/61 (81) 100 10/07/20 00:00 40 10/07/20 00:00 99.6 109 18 100/64 (76) 100 10/07/20 00:00 93 10/07/20 00:00 Mechanical Ventilator 10/06/20 23:09 104 16 40 10/06/20 23:00 99 16 120/63 (82) 100 10/06/20 22:00 98 16 124/59 (80) 100 10/06/20 21:00 108 16 113/75 (88) 100 10/06/20 20:00 99.6 110 16 109/59 (76) 100 10/06/20 20:00 101 10/06/20 20:00 Mechanical Ventilator 10/06/20 20:00 40 10/06/20 19:15 114 16 40 10/06/20 19:00 102 16 114/65 (81) 100 10/06/20 18:00 99 16 113/60 (77) 100 10/06/20 17:00 102 16 123/71 (88) 100 10/06/20 16:00 40 10/06/20 16:00 101 10/06/20 16:00 Mechanical Ventilator 10/06/20 16:00 99.8 103 16 116/60 (78) 100 10/06/20 15:36 116 16 40 10/06/20 15:00 103 16 112/59 (76) 100 10/06/20 14:00 103 16 95/61 (72) 100 10/06/20 13:00 105 16 110/60 (77) 100 10/06/20 12:00 Mechanical Ventilator 10/06/20 12:00 40 10/06/20 12:00 108 10/06/20 12:00 100.2 100 16 118/68 (85) 100 I&O Intake and Output 10/06/20 10/07/20 19:00 07:00 Intake Total 1077.5 ml 155 ml Output Total 670 ml 615 ml Balance 407.5 ml -460 ml IV Total 1077.5 ml 155 ml Tube Feeding 0 ml 0 ml Output Urine Total 670 ml 615 ml Dressing: saturated Cardiovascular: RSR Respiratory: decreased breath sounds Abdomen: soft, non-tender, present bowel sounds Extremities: edema, no tenderness, no cyanosis Laboratory Tests Test 10/07/20 04:50 10/07/20 05:24 White Blood Count 10.6 K/UL (4.8-10.8) Red Blood Count 3.34 M/UL (4.70-6.10) L Hemoglobin 8.8 G/DL (14.2-18.0) L Hematocrit 27.6 % (42.0-52.0) L Mean Corpuscular Volume 83 FL (80-99) Mean Corpuscular Hemoglobin 26.4 PG (27.0-31.0) L Mean Corpuscular Hemoglobin Concent 31.9 G/DL (32.0-36.0) L Red Cell Distribution Width 15.9 % (11.6-14.8) H Platelet Count 468 K/UL (150-450) H Mean Platelet Volume 9.2 FL (6.5-10.1) Neutrophils (%) (Auto) 56.3 % (45.0-75.0) Lymphocytes (%) (Auto) 35.2 % (20.0-45.0) Monocytes (%) (Auto) 6.3 % (1.0-10.0) Eosinophils (%) (Auto) 1.4 % (0.0-3.0) Basophils (%) (Auto) 0.9 % (0.0-2.0) Sodium Level 152 MMOL/L (136-145) H Potassium Level 4.0 MMOL/L (3.5-5.1) Chloride Level 116 MMOL/L (98-107) H Carbon Dioxide Level 25 MMOL/L (21-32) Anion Gap 11 mmol/L (5-15) Blood Urea Nitrogen 8 mg/dL (7-18) Creatinine 1.2 MG/DL (0.55-1.30) Estimat Glomerular Filtration Rate > 60 mL/min (>60) Glucose Level 220 MG/DL (74-106) H Calcium Level 9.1 MG/DL (8.5-10.1) Phosphorus Level 3.0 MG/DL (2.5-4.9) Magnesium Level 1.9 MG/DL (1.8-2.4) Total Bilirubin 0.3 MG/DL (0.2-1.0) Aspartate Amino Transf (AST/SGOT) 16 U/L (15-37) Alanine Aminotransferase (ALT/SGPT) 12 U/L (12-78) Alkaline Phosphatase 146 U/L (46-116) H Total Protein 6.8 G/DL (6.4-8.2) Albumin 1.7 G/DL (3.4-5.0) L Globulin 5.1 g/dL Albumin/Globulin Ratio 0.3 (1.0-2.7) L POC Whole Blood Glucose 206 MG/DL (74-106) H Plan Problems: (1) Hypoxia (2) Severe sepsis Assessment & Plan: leukocytosis lactic acidosis anemia renal insufficiency on support in ICU dressings changed and care plan initiated cont abx trend labs if fluids am imaging ordered remains febrile cont abx cooling measures worsening respiratory cont support CT pending results Non-Blanchable erythema noted to R and L earlobes. Erythematous, scaly pimple- like rash,some of which are scaly and others small papules noted to R and L axillae, upper R and L chest and back ,R and L groin areas. Pt observed to persistently scratch affected areas described. Incontinence Associated Dermatitis Buttocks, R and L Ischial tuberosities are erythematous,denuded with shearing and scattered satellite lesions. Per staff pt frequently removes or dislodges Condom cath. R Heel is boggy with non-blanchable erythema. L Heel is boggy with Non-Blanchable erythema. Pt presented on admission with Multiple Pressure Injuries. Sacral DTPI which extends into R and L Gluteal cheeks and is partially opened upper R gluteus (L)14cm x (W)15cm. DTPI noted within hypertrophic scar from previous Pressure i njury. Base of wound is purpuric at cleft ,and indurated. Non-Blanchable erythema with additional shearing periwound. An area of induration with darker skin tone noted to L Ischium. Darker skin tone without induration R Ischium. Scrotum is erythematous and swollen. DTPI L Heel and Plantar L Heel(L)4cm x (W)3.5cm. Base of Pressure Injury roca colored Blister with darker center. Periwound is fluctuant with non-Blanchable erythema. DTPI R Heel (L)2.7cm x (W)4cm. Non-Blanchable erythema without induration/fluctuance R Hallux. Non-Blanchable erythema without induration/fluctuance L Hallux. Tx.Plan:Apply Cavilon Skin Barrier to both R and L ears.(Pad Oxygen Tubing as Needed.) Apply Moisture Barrier Paste to bilat groin and bilat ischial tuber osities with eqach Incontinence care. Apply Cavilon Skin Barrier to both heels. Cover each heel with Optifoam drsg. Change every 7 days and prn. Cleanse Sacral wound with Saline. Apply Therahoney. Apply Moisture Barrier Paste periwound. Cover with Optifoam drsg. Change every 3 days and prn. Apply Moisture Barrier Paste to Scrotum,R and L ischial tuberosities with each incontinence care. Apply Cavilon Skin Barrier to R and L Hallux. Cover each site with Optifoam drsgs. Change every 7 days and prn. Reposition at least every 2hours or as tolerated. Off-load heels with pillow. APM/ALEK Mattress overlay improving cont current care tube site okay DAILY ESTIMATED NEEDS: Needs based on Critical care, DM, Wound/ 62.73kg 22-30 kcals/kg 0837-9540 total kcals 1.25-2 g protein/kg 78-125 g total protein 25-30 mL/kg 2128-4919 total fluid mLs NUTRITION DIAGNOSIS: * Swallowing difficulty R/T dysphagia as evidenced by Pt is GT dep, currently orally intubated, off pressor support, on GT feeds. CURRENT TF:NPO ENTERAL NUTRITION RECOMMENDATIONS: Glucerna 1.2 @ 55ml/hr x 24 hrs to provide 1320ml, 1584kcal, 79g prot, 1063ml free water * Maintain current TF: meets 100 % est kcal/prot needs * HOB over 30 degrees * H2O flush of 180ml q 6hrs ADDITIONAL RECOMMENDATIONS: * Per SNF: HT=5'7" WT= 138lbs (as of Sep 13, 2020) * Monitor hemodynamic stability: NE @ 8mcg-> now off * Wound healing: TF rec @ goal provides 100% RDI add Vit C 500mg QD + Terrance BID via TF * Monitor lytes, replete as needed * Rec long acting insulin for improved BG control . (3) Dehydration (4) Hypernatremia (5) Clostridium difficile colitis (6) Staphylococcus aureus bacteremia (7) Hip fracture, left (8) Diabetes mellitus (9) History of hypertension (10) Severe protein-calorie malnutrition (11) Acute encephalopathy (12) Pressure Ulcer Of Sacral Region, Unstageable (13) Feeding by G-tube (14) Abdominal distention (15) Multiple drug resistant organism (MDRO) culture positive (16) Sepsis (17) History of CVA (cerebrovascular accident) (18) Parkinson disease James Breen Oct 07, 2020 11:48
--- NOTE | 2020-10-07 11:51 | Pulmonolgy Critical Care Note ---
Critical Care - Asmt/Plan Problems: (1) Acute respiratory failure (2) Severe sepsis (3) Diabetes mellitus (4) Severe protein-calorie malnutrition (5) History of hypertension (6) History of CVA (cerebrovascular accident) (7) Parkinson disease (8) Feeding by G-tube Respiratory: monitor respiratory rate, adjust FIO2, CXR Cardiac: continue to monitor HR/BP Infectious Disease: check cultures, continue antibiotics, other - awaiting CT of abdomen/pelvis to rule out abscess or any other hidden cause of fever. Gastrointestinal: continue feedings/current rate Endocrine: monitor blood sugar, check HgA1C, continue sliding scale insulin Hematologic: monitor H/H, transfuse if hgb<8.5 Neurologic: PRN Ativan, keep patient comfortable Time Spent (Minutes): 40 Notes Reviewed: legal research analyst, cardio, renal Discussed with: nurses, consultants, case packer and sealermanager vehicle - Objective Last 24 Hour Vital Signs Date Time Temp Pulse Resp B/P (MAP) Pulse Ox O2 Delivery O2 Flow Rate FiO2 10/07/20 11:10 92 16 40 10/07/20 11:00 95 16 90/57 (68) 100 10/07/20 10:00 95 16 130/56 (80) 100 10/07/20 09:00 99.3 90 16 91/66 (74) 100 10/07/20 08:00 Mechanical Ventilator 10/07/20 08:00 103 16 106/62 (77) 100 10/07/20 08:00 40 10/07/20 08:00 90 10/07/20 07:30 96 16 40 10/07/20 07:00 112 17 106/58 (74) 100 10/07/20 06:00 106 16 109/55 (73) 100 10/07/20 05:00 115 15 81/53 (62) 100 10/07/20 04:00 99.2 92 16 133/66 (88) 100 10/07/20 04:00 108 10/07/20 04:00 Mechanical Ventilator 10/07/20 04:00 40 10/07/20 03:16 117 16 40 10/07/20 03:00 100 16 109/63 (78) 100 10/07/20 02:00 94 16 127/73 (91) 100 10/07/20 01:00 96 16 102/59 (73) 100 10/07/20 00:30 93 16 122/61 (81) 100 10/07/20 00:00 40 10/07/20 00:00 99.6 109 18 100/64 (76) 100 10/07/20 00:00 93 10/07/20 00:00 Mechanical Ventilator 10/06/20 23:09 104 16 40 10/06/20 23:00 99 16 120/63 (82) 100 10/06/20 22:00 98 16 124/59 (80) 100 10/06/20 21:00 108 16 113/75 (88) 100 10/06/20 20:00 99.6 110 16 109/59 (76) 100 10/06/20 20:00 101 10/06/20 20:00 Mechanical Ventilator 10/06/20 20:00 40 10/06/20 19:15 114 16 40 10/06/20 19:00 102 16 114/65 (81) 100 10/06/20 18:00 99 16 113/60 (77) 100 10/06/20 17:00 102 16 123/71 (88) 100 10/06/20 16:00 40 10/06/20 16:00 101 10/06/20 16:00 Mechanical Ventilator 10/06/20 16:00 99.8 103 16 116/60 (78) 100 10/06/20 15:36 116 16 40 10/06/20 15:00 103 16 112/59 (76) 100 10/06/20 14:00 103 16 95/61 (72) 100 10/06/20 13:00 105 16 110/60 (77) 100 10/06/20 12:00 Mechanical Ventilator 10/06/20 12:00 40 10/06/20 12:00 108 10/06/20 12:00 100.2 100 16 118/68 (85) 100 Status: sedated Condition: critical HEENT: atraumatic, normocephalic Neck: full ROM Lungs: chest wall tender Heart: HR/BP stable Abdomen: soft, non-tender Extremities: edema Decubiti: location Accucheck: 206 Critical Care - Subjective ROS Limited/Unobtainable: Yes Condition: critical EKG Rhythm: Sinus Rhythm FI02: 40 Vent Support Breath Rate: 16 Vent Support Mode: AC Vent Tidal Volume: 600 Sputum Amount: Moderate PEEP: 0.0 PIP: 44 Tube Feeding Amount: 0 I&O: Intake and Output 10/06/20 10/07/20 19:00 07:00 Intake Total 1077.5 ml 155 ml Output Total 670 ml 615 ml Balance 407.5 ml -460 ml IV Total 1077.5 ml 155 ml Tube Feeding 0 ml 0 ml Output Urine Total 670 ml 615 ml CXR: Improving bilateral interstitial and airspace opacities with mild persistent left lower lobe airspace disease. ET-Tube: 7.0 ET Position: 23 Labs: Laboratory Tests Test 10/07/20 04:50 10/07/20 05:24 White Blood Count 10.6 K/UL (4.8-10.8) Red Blood Count 3.34 M/UL (4.70-6.10) L Hemoglobin 8.8 G/DL (14.2-18.0) L Hematocrit 27.6 % (42.0-52.0) L Mean Corpuscular Volume 83 FL (80-99) Mean Corpuscular Hemoglobin 26.4 PG (27.0-31.0) L Mean Corpuscular Hemoglobin Concent 31.9 G/DL (32.0-36.0) L Red Cell Distribution Width 15.9 % (11.6-14.8) H Platelet Count 468 K/UL (150-450) H Mean Platelet Volume 9.2 FL (6.5-10.1) Neutrophils (%) (Auto) 56.3 % (45.0-75.0) Lymphocytes (%) (Auto) 35.2 % (20.0-45.0) Monocytes (%) (Auto) 6.3 % (1.0-10.0) Eosinophils (%) (Auto) 1.4 % (0.0-3.0) Basophils (%) (Auto) 0.9 % (0.0-2.0) Sodium Level 152 MMOL/L (136-145) H Potassium Level 4.0 MMOL/L (3.5-5.1) Chloride Level 116 MMOL/L (98-107) H Carbon Dioxide Level 25 MMOL/L (21-32) Anion Gap 11 mmol/L (5-15) Blood Urea Nitrogen 8 mg/dL (7-18) Creatinine 1.2 MG/DL (0.55-1.30) Estimat Glomerular Filtration Rate > 60 mL/min (>60) Glucose Level 220 MG/DL (74-106) H Calcium Level 9.1 MG/DL (8.5-10.1) Phosphorus Level 3.0 MG/DL (2.5-4.9) Magnesium Level 1.9 MG/DL (1.8-2.4) Total Bilirubin 0.3 MG/DL (0.2-1.0) Aspartate Amino Transf (AST/SGOT) 16 U/L (15-37) Alanine Aminotransferase (ALT/SGPT) 12 U/L (12-78) Alkaline Phosphatase 146 U/L (46-116) H Total Protein 6.8 G/DL (6.4-8.2) Albumin 1.7 G/DL (3.4-5.0) L Globulin 5.1 g/dL Albumin/Globulin Ratio 0.3 (1.0-2.7) L POC Whole Blood Glucose 206 MG/DL (74-106) H Latanya Mckeon MD Oct 07, 2020 11:51
--- NOTE | 2020-10-07 13:31 | Internal Med Progress Note ---
Subjective Physician Name Cirilo Rome Attending Physician Cirilo Rome MD Current Medications Medications (Trade) Dose Ordered Sig/Debi Route PRN Reason Start Time Stop Time Status Last Admin Dose Admin Acetaminophen (Tylenol) 650 mg Q4H PRN GT FEVER 10/03/20 01:15 11/02/20 01:14 10/06/20 04:19 Ascorbic Acid (Vitamin C) 250 mg TWICE A DAY GT 10/03/20 18:00 11/02/20 17:59 10/07/20 08:47 Chlorhexidine Gluconate (Jazmin-Hex 2%) 1 applic DAILY@2000 TOPIC 09/26/20 20:00 12/25/20 19:59 10/06/20 20:32 Dextrose (Dextrose 50%) 25 ml Q30M PRN IV Hypoglycemia 09/25/20 15:30 12/24/20 15:29 Dextrose (Dextrose 50%) 50 ml Q30M PRN IV Hypoglycemia 09/25/20 15:30 12/24/20 15:29 Heparin Sodium (Porcine) (Heparin 5000 units/ml) 5,000 units EVERY 12 HOURS SUBQ 09/25/20 09:00 11/09/20 08:59 10/07/20 08:49 Insulin Aspart (NovoLOG) Q6HR SUBQ 10/04/20 00:00 01/02/21 00:00 10/07/20 05:38 Meropenem 1 gm/ Sodium Chloride 55 ml @ 110 mls/hr Q8H IVPB 10/05/20 18:00 10/10/20 17:59 10/07/20 10:00 Midodrine (Pro-Amatine) 10 mg Q8HR GT 09/30/20 14:00 12/29/20 13:59 10/07/20 05:37 Ondansetron HCl (Zofran) 4 mg Q6H PRN IVP Nausea & Vomiting 09/25/20 00:15 10/25/20 00:14 Pantoprazole (Protonix) 40 mg Q12HR IVP 09/25/20 21:00 10/25/20 08:59 10/07/20 08:47 Polyethylene Glycol (Miralax) 17 gm DAILYPRN PRN ORAL Constipation 09/25/20 00:15 10/25/20 00:14 Allergies: Coded Allergies: No Known Allergies (Unverified , 08/27/19) Subjective in ICU, intubated, remained on ventilation, open his eyes,more responsive, interactive, WBC: 10.6 decreasing Objective Last Vital Signs Date Time Temp Pulse Resp B/P (MAP) Pulse Ox O2 Delivery O2 Flow Rate FiO2 10/07/20 12:00 85 10/07/20 12:00 16 110/57 (74) 100 10/07/20 12:00 Mechanical Ventilator 10/07/20 12:00 40 10/07/20 09:00 99.3 09/28/20 16:00 40.0 Laboratory Tests Test 10/07/20 04:50 10/07/20 05:24 White Blood Count 10.6 K/UL (4.8-10.8) Red Blood Count 3.34 M/UL (4.70-6.10) L Hemoglobin 8.8 G/DL (14.2-18.0) L Hematocrit 27.6 % (42.0-52.0) L Mean Corpuscular Volume 83 FL (80-99) Mean Corpuscular Hemoglobin 26.4 PG (27.0-31.0) L Mean Corpuscular Hemoglobin Concent 31.9 G/DL (32.0-36.0) L Red Cell Distribution Width 15.9 % (11.6-14.8) H Platelet Count 468 K/UL (150-450) H Mean Platelet Volume 9.2 FL (6.5-10.1) Neutrophils (%) (Auto) 56.3 % (45.0-75.0) Lymphocytes (%) (Auto) 35.2 % (20.0-45.0) Monocytes (%) (Auto) 6.3 % (1.0-10.0) Eosinophils (%) (Auto) 1.4 % (0.0-3.0) Basophils (%) (Auto) 0.9 % (0.0-2.0) Sodium Level 152 MMOL/L (136-145) H Potassium Level 4.0 MMOL/L (3.5-5.1) Chloride Level 116 MMOL/L (98-107) H Carbon Dioxide Level 25 MMOL/L (21-32) Anion Gap 11 mmol/L (5-15) Blood Urea Nitrogen 8 mg/dL (7-18) Creatinine 1.2 MG/DL (0.55-1.30) Estimat Glomerular Filtration Rate > 60 mL/min (>60) Glucose Level 220 MG/DL (74-106) H Calcium Level 9.1 MG/DL (8.5-10.1) Phosphorus Level 3.0 MG/DL (2.5-4.9) Magnesium Level 1.9 MG/DL (1.8-2.4) Total Bilirubin 0.3 MG/DL (0.2-1.0) Aspartate Amino Transf (AST/SGOT) 16 U/L (15-37) Alanine Aminotransferase (ALT/SGPT) 12 U/L (12-78) Alkaline Phosphatase 146 U/L (46-116) H Total Protein 6.8 G/DL (6.4-8.2) Albumin 1.7 G/DL (3.4-5.0) L Globulin 5.1 g/dL Albumin/Globulin Ratio 0.3 (1.0-2.7) L POC Whole Blood Glucose 206 MG/DL (74-106) H Intake and Output 10/06/20 10/07/20 19:00 07:00 Intake Total 1077.5 ml 155 ml Output Total 670 ml 615 ml Balance 407.5 ml -460 ml IV Total 1077.5 ml 155 ml Tube Feeding 0 ml 0 ml Output Urine Total 670 ml 615 ml Objective PHYSICAL EXAMINATION: GENERAL: intubated, open his eyes, await, responsive, HEENT: Eyes, pupils are equal responsive to light and accommodation. ET tube. NECK: Supple No JVD CHEST: mechanical breath sound, decreased air at bases, no wheezes. CARDIOVASCULAR: Regular rate. S1 and S2 normal without murmurs, ABDOMEN: Soft, nontender, and nondistended. Positive bowel sounds. PEG site intact. EXTREMITIES: Negative for clubbing, cyanosis, +1 LE's edema. NEUROLOGIC: limited secondary to patient's status, unable to move extremities. Assessment/Plan Assessment/Plan ASSESSMENT: This is a 80-year-old male. 1. Acute hypoxemic Respiratory failure. 2. Bilateral pneumonia. 3. Hypertension. 4. Diabetes type 2. 5. Hypercholesterolemia. 6. Parkinson disease. 7. COVID-19 negative. 8. Ulcerative proctitis. 9. Benign prostatic hypertrophy. 10. Gastroesophageal reflux disease. 11. Urinary tract infection=proteus mirabilis 12. Sepsis=coag neg staph TREATMENT: 1. Pneumonia/respiratory failure. Infectious diseases = Drs. Harris/Pj. A Pulmonary/Critical care= Dr. Latanya Mckeon. The patient is currently intubated on the mechanical ventilator in the intensive care unit. 2. Urinary tract infection. ABX= Ertapenem. 3. Hypertension. The patient is currently hypotensive. 4. Diabetes type 2. NovoLog sliding scale has been instituted. 5. Hypercholesterolemia. Continue simvastatin as above. 6. Parkinson disease. 7. Ulcerative proctitis. 8. Benign prostatic hypertrophy. 9. Gastroesophageal reflux disease. 10. Dysphagia. tolerated tube feeding CODE STATUS: Full code Chest x-ray: Improving bilateral interstitial and airspace opacities with mild persistent left lower lobe airspace disease. Cirilo Rome MD Oct 07, 2020 13:31
--- NOTE | 2020-10-07 13:56 | Nephrology Progress Note ---
Assessment/Plan Problem List: (1) KELLY (acute kidney injury) (2) Dehydration (3) Hypernatremia (4) Severe sepsis (5) History of CVA (cerebrovascular accident) (6) Parkinson disease (7) Acute respiratory failure (8) Elevated lipase Assessment KELLY, Hypernatremia, dehydration, free water deficit Sepsis Acute respiratory failure requiring intubation and mechanical ventilation Diabetes mellitus [id number] GT feeding History of CVA History of hypertension Parkinson's disease Elevated lipase Plan October 07: Labs reviewed. Abnormal electrolytes addressed. Bolus of 500 cc D5W for elevated serum sodium given. Continue to monitor electrolytes and renal parameters. October 06: Labs reviewed. K-Phos replaced. Will give another liter of D5W. Continue to monitor electrolytes and renal parameters. October 05: Labs reviewed. Serum sodium rising. 1 L D5W IV ordered. Continue to monitor electrolytes. Continue per consultants. October 04: No CHEM panel was done today. Patient remain intubated on ventilator and full code. We will order labs tomorrow. Continue per consultants. October 03: Discussed with RN. Labs are reviewed. Potassium and phosphate replacement ordered. Continue per consultants. Patient remains full code intubated on ventilator. Serum creatinine up to 1.5. Continue to monitor renal parameters. October 02: Remains in ICU and intubated. Labs reviewed. Serum creatinine 1.3. Serum sodium slightly elevated. Continue to monitor renal parameters and electrolytes. October 01: Seen in ICU. Discussed with RN. No chemistry panel done today. Blood pressure hovering around 100 systolic. Will check labs tomorrow. Continue per consultants. September 30: Labs reviewed. Renal parameters stable. Blood pressure hovering around 90s systolic. We will add midodrine through GT tube. Continue per consultants. September 29: Labs reviewed. Serum creatinine down to 1.3 and electrolytes reviewed. Abnormal electrolytes addressed. Continue per consultants. September 28: Labs reviewed. Creatinine 1.6 unchanged. Hypernatremia persists. Will give 1 L of D5W. Continue to monitor renal parameters and electrolytes. Continue per consultants. September 27: Labs reviewed. Serum sodium lowering. Serum creatinine lowering. Blood sugar somewhat better controlled. Patient continues to be on free water through tube feeding. Continue to monitor renal parameters and electrolytes. Abnormal electrolytes addressed. September 26: IV fluids stopped. Patient receiving free water reviewed NG tube. Patient full code. Intubated on ventilator. Discussed with RN Amparo. Continue to monitor renal parameters. Serum creatinine lower but abnormal electrolyte persists and was addressed. Previously: IV fluid half-normal saline 125 cc an hour Albumin fluid challenge Monitor electrolytes Monitor renal parameters Hold blood pressure medication since blood pressure low Per orders, per consultants Subjective ROS Limited/Unobtainable: Yes Objective Objective Last 24 Hour Vital Signs Date Time Temp Pulse Resp B/P (MAP) Pulse Ox O2 Delivery O2 Flow Rate FiO2 10/07/20 12:00 85 10/07/20 12:00 86 16 110/57 (74) 100 10/07/20 12:00 Mechanical Ventilator 10/07/20 12:00 40 10/07/20 11:10 92 16 40 10/07/20 11:00 95 16 90/57 (68) 100 10/07/20 10:00 95 16 130/56 (80) 100 10/07/20 09:00 99.3 90 16 91/66 (74) 100 10/07/20 08:00 Mechanical Ventilator 10/07/20 08:00 103 16 106/62 (77) 100 10/07/20 08:00 40 10/07/20 08:00 90 10/07/20 07:30 96 16 40 10/07/20 07:00 112 17 106/58 (74) 100 10/07/20 06:00 106 16 109/55 (73) 100 10/07/20 05:00 115 15 81/53 (62) 100 10/07/20 04:00 99.2 92 16 133/66 (88) 100 10/07/20 04:00 108 10/07/20 04:00 Mechanical Ventilator 10/07/20 04:00 40 10/07/20 03:16 117 16 40 10/07/20 03:00 100 16 109/63 (78) 100 10/07/20 02:00 94 16 127/73 (91) 100 10/07/20 01:00 96 16 102/59 (73) 100 10/07/20 00:30 93 16 122/61 (81) 100 10/07/20 00:00 40 10/07/20 00:00 99.6 109 18 100/64 (76) 100 10/07/20 00:00 93 10/07/20 00:00 Mechanical Ventilator 10/06/20 23:09 104 16 40 10/06/20 23:00 99 16 120/63 (82) 100 10/06/20 22:00 98 16 124/59 (80) 100 10/06/20 21:00 108 16 113/75 (88) 100 10/06/20 20:00 99.6 110 16 109/59 (76) 100 10/06/20 20:00 101 10/06/20 20:00 Mechanical Ventilator 10/06/20 20:00 40 10/06/20 19:15 114 16 40 10/06/20 19:00 102 16 114/65 (81) 100 10/06/20 18:00 99 16 113/60 (77) 100 10/06/20 17:00 102 16 123/71 (88) 100 10/06/20 16:00 40 10/06/20 16:00 101 10/06/20 16:00 Mechanical Ventilator 10/06/20 16:00 99.8 103 16 116/60 (78) 100 10/06/20 15:36 116 16 40 10/06/20 15:00 103 16 112/59 (76) 100 10/06/20 14:00 103 16 95/61 (72) 100 Intake and Output 10/06/20 10/07/20 19:00 07:00 Intake Total 1077.5 ml 155 ml Output Total 670 ml 615 ml Balance 407.5 ml -460 ml IV Total 1077.5 ml 155 ml Tube Feeding 0 ml 0 ml Output Urine Total 670 ml 615 ml Laboratory Tests 10/07/20 04:50: White Blood Count 10.6, Red Blood Count 3.34L, Hemoglobin 8.8L, Hematocrit 27.6L , Mean Corpuscular Volume 83, Mean Corpuscular Hemoglobin 26.4L, Mean Corpuscular Hemoglobin Concent 31.9L, Red Cell Distribution Width 15.9H, Platelet Count 468H, Mean Platelet Volume 9.2, Neutrophils (%) (Auto) 56.3, Lymphocytes (%) (Auto) 35.2, Monocytes (%) (Auto) 6.3, Eosinophils (%) (Auto) 1.4, Basophils (%) (Auto) 0.9, Sodium Level 152H, Potassium Level 4.0, Chloride Level 116H, Carbon Dioxide Level 25, Anion Gap 11, Blood Urea Nitrogen 8, Creatinine 1.2, Estimat Glomerular Filtration Rate > 60, Glucose Level 220H, Ca lcium Level 9.1, Phosphorus Level 3.0, Magnesium Level 1.9, Total Bilirubin 0.3, Aspartate Amino Transf (AST/SGOT) 16, Alanine Aminotransferase (ALT/SGPT) 12, Alkaline Phosphatase 146H, Total Protein 6.8, Albumin 1.7L, Globulin 5.1, Albumin/Globulin Ratio 0.3L 10/07/20 05:24: POC Whole Blood Glucose 206H Height (Feet): 5 Height (Inches): 10.00 Weight (Pounds): 180 General Appearance: no apparent distress EENT: other - On ventilator Cardiovascular: tachycardia Respiratory/Chest: decreased breath sounds Abdomen: distended Eddie Nelson MD Oct 07, 2020 13:56
[2020-10-07] MEDS: Acetaminophen 650mg/20.3ml GT PRN (15:22)
[2020-10-07] MEDS: Dyna-Hex 2% Top Sol 2oz TOPIC SCH (21:49)
[2020-10-08] VITALS (24 sets, daily range): BP systolic 90–122; BP diastolic 53–78
[2020-10-08] MEDS: Meropenem 1 GM in NS 55 ML IVPB SCH ×3 (01:42→18:00)
[2020-10-08] MEDS: Midodrine 10mg tab GT SCH ×3 (05:44→22:11)
[2020-10-08] MEDS: NovoLOG Insulin Flexpen SUBQ SCH ×3 (05:46→18:00)
[2020-10-08] MEDS: Ascorbic Acid 500mg tab GT SCH ×2 (09:56→18:00)
[2020-10-08] MEDS: Pantoprazole Inj IVP SCH ×2 (09:56→20:09)
[2020-10-08] MEDS: Heparin 5000 units/ml inj SUBQ SCH ×2 (09:58→20:12)
[2020-10-08] MEDS: Acetaminophen 650mg/20.3ml GT PRN (10:12)
--- NOTE | 2020-10-08 11:15 | Nephrology Progress Note ---
Assessment/Plan Problem List: (1) KELLY (acute kidney injury) (2) Dehydration (3) Hypernatremia (4) Severe sepsis (5) History of CVA (cerebrovascular accident) (6) Parkinson disease (7) Acute respiratory failure (8) Elevated lipase Assessment KELLY, Hypernatremia, dehydration, free water deficit Sepsis Acute respiratory failure requiring intubation and mechanical ventilation Diabetes mellitus [id number] GT feeding History of CVA History of hypertension Parkinson's disease Elevated lipase Plan October 08: No CHEM panel drawn today. Will check lab tomorrow. Continue per consultants. October 07: Labs reviewed. Abnormal electrolytes addressed. Bolus of 500 cc D5W for elevated serum sodium given. Continue to monitor electrolytes and renal parameters. October 06: Labs reviewed. K-Phos replaced. Will give another liter of D5W. Continue to monitor electrolytes and renal parameters. October 05: Labs reviewed. Serum sodium rising. 1 L D5W IV ordered. Continue to monitor electrolytes. Continue per consultants. October 04: No CHEM panel was done today. Patient remain intubated on ventilator and full code. We will order labs tomorrow. Continue per consultants. October 03: Discussed with RN. Labs are reviewed. Potassium and phosphate replacement ordered. Continue per consultants. Patient remains full code intubated on ventilator. Serum creatinine up to 1.5. Continue to monitor renal parameters. October 02: Remains in ICU and intubated. Labs reviewed. Serum creatinine 1.3. Serum sodium slightly elevated. Continue to monitor renal parameters and electrolytes. October 01: Seen in ICU. Discussed with RN. No chemistry panel done today. Blood pressure hovering around 100 systolic. Will check labs tomorrow. Continue per consultants. September 30: Labs reviewed. Renal parameters stable. Blood pressure hovering around 90s systolic. We will add midodrine through GT tube. Continue per consultants. September 29: Labs reviewed. Serum creatinine down to 1.3 and electrolytes reviewed. Abnormal electrolytes addressed. Continue per consultants. September 28: Labs reviewed. Creatinine 1.6 unchanged. Hypernatremia persists. Will give 1 L of D5W. Continue to monitor renal parameters and electrolytes. Continue per consultants. September 27: Labs reviewed. Serum sodium lowering. Serum creatinine lowering. Blood sugar somewhat better controlled. Patient continues to be on free water through tube feeding. Continue to monitor renal parameters and electrolytes. Abnormal electrolytes addressed. September 26: IV fluids stopped. Patient receiving free water reviewed NG tube. Patient full code. Intubated on ventilator. Discussed with JOHNNY Christensen. Continue to monitor renal parameters. Serum creatinine lower but abnormal electrolyte persists and was addressed. Previously: IV fluid half-normal saline 125 cc an hour Albumin fluid challenge Monitor electrolytes Monitor renal parameters Hold blood pressure medication since blood pressure low Per orders, per consultants Subjective ROS Limited/Unobtainable: Yes Objective Objective Last 24 Hour Vital Signs Date Time Temp Pulse Resp B/P (MAP) Pulse Ox O2 Delivery O2 Flow Rate FiO2 10/08/20 10:00 117 16 90/60 (70) 100 10/08/20 09:00 40 10/08/20 09:00 125 16 122/68 (86) 100 10/08/20 08:00 102.0 123 17 110/66 (81) 100 10/08/20 08:00 Mechanical Ventilator 10/08/20 07:03 122 16 40 10/08/20 07:00 121 16 107/61 (76) 100 10/08/20 06:00 120 16 108/78 (88) 100 10/08/20 05:00 117 16 98/69 (79) 100 10/08/20 04:00 99.2 115 16 105/68 (80) 100 10/08/20 04:00 114 10/08/20 04:00 Mechanical Ventilator 10/08/20 04:00 40 10/08/20 03:00 114 17 104/56 (72) 100 10/08/20 02:00 110 16 103/57 (72) 100 10/08/20 01:22 90 16 40 10/08/20 01:00 102 17 119/55 (76) 100 10/08/20 00:00 Mechanical Ventilator 10/08/20 00:00 40 10/08/20 00:00 98.7 92 16 115/62 (79) 100 10/08/20 00:00 90 10/07/20 23:00 93 16 120/63 (82) 100 10/07/20 22:51 84 16 40 10/07/20 22:00 95 16 123/65 (84) 100 10/07/20 21:00 96 16 116/63 (80) 100 10/07/20 20:00 91 16 109/55 (73) 100 10/07/20 20:00 88 10/07/20 20:00 Mechanical Ventilator 10/07/20 20:00 40 10/07/20 19:37 74 16 40 10/07/20 19:00 86 18 108/68 (81) 100 10/07/20 18:00 69 16 115/63 (80) 100 10/07/20 17:00 98.5 94 16 90/51 (64) 100 10/07/20 16:00 40 10/07/20 16:00 97 10/07/20 16:00 94 16 91/60 (70) 100 10/07/20 16:00 Mechanical Ventilator 10/07/20 15:50 98.6 10/07/20 15:13 96 16 40 10/07/20 15:00 93 16 114/66 (82) 100 10/07/20 14:00 97 16 109/56 (73) 100 10/07/20 13:00 99.0 86 16 105/59 (74) 100 10/07/20 12:00 85 10/07/20 12:00 86 16 110/57 (74) 100 10/07/20 12:00 Mechanical Ventilator 10/07/20 12:00 40 Intake and Output 10/07/20 10/08/20 19:00 07:00 Intake Total 205 ml 495 ml Output Total 590 ml 720 ml Balance -385 ml -225 ml Intake Free Water 150 ml IV Total 55 ml 55 ml Tube Feeding 0 ml 440 ml Output Urine Total 590 ml 720 ml Laboratory Tests 10/08/20 05:43: POC Whole Blood Glucose [Pending] Height (Feet): 5 Height (Inches): 10.00 Weight (Pounds): 180 General Appearance: no apparent distress EENT: other - Intubated on ventilator Cardiovascular: tachycardia Respiratory/Chest: decreased breath sounds Abdomen: distended Eddie Nelson MD Oct 08, 2020 11:15
--- NOTE | 2020-10-08 11:27 | Infectious Diseases Prog Note ---
Assessment/Plan 80yo M with: Fevers Leukocytosis, improving Resp secretions Resp failure on vent 10/06 BCx p CXR: Improving bilateral interstitial and airspace opacities with mild persistent left lower lobe airspace disease. 10/08 Resp cx ordered CONS bacteremia, recurrent 09/24 BCx 2/2 +CONS 09/25 BCx neg 09/28 BCx +CONS 09/30 BCx NTD Sepsis, septic shock GPC bacteremia UTI 2/2 ESBL P.mirabilis Pneumonia 2/2 ESBL P.mirabilis Febrile to 105, improving Leukocytosis to 15, improving 09/24 BCx 2/2 CONS UA 20-30 WBC, UCx ESBL P.mirabilis COVID rapid test neg, PCR neg CXR: 1. Coarse bibasilar interstitial lung markings, may represent atypical infectious process such as viral pneumonia versus pulmonary edema. 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: No climate change analyst 2 days 09/28 C.dif neg 09/28 BCx +GPCs (see above) Resp cx +ESBL P.mirabilis 09/29 COVID PCR neg 10/03 CXR: Slightly worsened bilateral basilar infiltrates, over one day Cr 2.0, improving Plan: Cont meropenem #8 (abx d #14) for ESBL P.mirabilis UTI/pna (can sometimes have increased MICs to erta, but S-audra) CT chest/abd/pelvis given going fevers despite broad abx - THIS IS MEDICALLY NECESSARY AND EMERGENT IN THIS CRITICALLY ILL PATIENT IN THE ICU, SEDATED ON VENT. I CONSENT TO HAVE PT GO TO CT SCAN AND RECEIVE IV CONTRAST Resp cx F/u BCx 10/06 Trend WBC Trend Cr 10/07 SP vanco IV #7 empiric 10/01 SP erta #6 09/25 SP amikacin and vanco x1 Monitor CBC/CMP Monitor temp curve, hemodynamics Monitor resp status D/w RN Thank you for this consult. [facility] will continue to follow. Subjective Allergies: Coded Allergies: No Known Allergies (Unverified , 08/27/19) Tmax 102 WBC 10 yesterday Lots of resp secretions per RN Despite my consent for CT scan - STILL NOT DONE Sedated on vent Objective Last 24 Hour Vital Signs Date Time Temp Pulse Resp B/P (MAP) Pulse Ox O2 Delivery O2 Flow Rate FiO2 10/08/20 10:00 117 16 90/60 (70) 100 10/08/20 09:00 40 10/08/20 09:00 125 16 122/68 (86) 100 10/08/20 08:00 102.0 123 17 110/66 (81) 100 10/08/20 08:00 Mechanical Ventilator 10/08/20 07:03 122 16 40 10/08/20 07:00 121 16 107/61 (76) 100 10/08/20 06:00 120 16 108/78 (88) 100 10/08/20 05:00 117 16 98/69 (79) 100 10/08/20 04:00 99.2 115 16 105/68 (80) 100 10/08/20 04:00 114 10/08/20 04:00 Mechanical Ventilator 10/08/20 04:00 40 10/08/20 03:00 114 17 104/56 (72) 100 10/08/20 02:00 110 16 103/57 (72) 100 10/08/20 01:22 90 16 40 10/08/20 01:00 102 17 119/55 (76) 100 10/08/20 00:00 Mechanical Ventilator 10/08/20 00:00 40 10/08/20 00:00 98.7 92 16 115/62 (79) 100 10/08/20 00:00 90 10/07/20 23:00 93 16 120/63 (82) 100 10/07/20 22:51 84 16 40 10/07/20 22:00 95 16 123/65 (84) 100 10/07/20 21:00 96 16 116/63 (80) 100 10/07/20 20:00 91 16 109/55 (73) 100 10/07/20 20:00 88 10/07/20 20:00 Mechanical Ventilator 10/07/20 20:00 40 10/07/20 19:37 74 16 40 10/07/20 19:00 86 18 108/68 (81) 100 10/07/20 18:00 69 16 115/63 (80) 100 10/07/20 17:00 98.5 94 16 90/51 (64) 100 10/07/20 16:00 40 10/07/20 16:00 97 10/07/20 16:00 94 16 91/60 (70) 100 10/07/20 16:00 Mechanical Ventilator 10/07/20 15:50 98.6 10/07/20 15:13 96 16 40 10/07/20 15:00 93 16 114/66 (82) 100 10/07/20 14:00 97 16 109/56 (73) 100 10/07/20 13:00 99.0 86 16 105/59 (74) 100 10/07/20 12:00 85 10/07/20 12:00 86 16 110/57 (74) 100 10/07/20 12:00 Mechanical Ventilator 10/07/20 12:00 40 Height (Feet): 5 Height (Inches): 10.00 Weight (Pounds): 180 Gen: NAD HEENT: NCAT Pulm: BL chest rise Abd: Non-distended Ext: No c/c/e Skin: No visible rashes Neuro: Awake Lines: R fem CVC Laboratory Tests Test 10/08/20 05:43 POC Whole Blood Glucose Pending Current Medications Medications (Trade) Dose Ordered Sig/Debi Route PRN Reason Start Time Stop Time Status Last Admin Dose Admin Acetaminophen (Tylenol) 650 mg Q4H PRN GT FEVER 10/03/20 01:15 11/02/20 01:14 10/08/20 10:12 Ascorbic Acid (Vitamin C) 250 mg TWICE A DAY GT 10/03/20 18:00 11/02/20 17:59 10/08/20 09:56 Chlorhexidine Gluconate (Jazmin-Hex 2%) 1 applic DAILY@2000 TOPIC 09/26/20 20:00 12/25/20 19:59 10/07/20 21:49 Dextrose (Dextrose 50%) 25 ml Q30M PRN IV Hypoglycemia 09/25/20 15:30 12/24/20 15:29 Dextrose (Dextrose 50%) 50 ml Q30M PRN IV Hypoglycemia 09/25/20 15:30 12/24/20 15:29 Heparin Sodium (Porcine) (Heparin 5000 units/ml) 5,000 units EVERY 12 HOURS SUBQ 09/25/20 09:00 11/09/20 08:59 10/08/20 09:58 Insulin Aspart (NovoLOG) Q6HR SUBQ 10/04/20 00:00 01/02/21 00:00 10/08/20 05:46 Meropenem 1 gm/ Sodium Chloride 55 ml @ 110 mls/hr Q8H IVPB 10/05/20 18:00 10/10/20 17:59 10/08/20 09:57 Midodrine (Pro-Amatine) 10 mg Q8HR GT 09/30/20 14:00 12/29/20 13:59 10/08/20 05:44 Ondansetron HCl (Zofran) 4 mg Q6H PRN IVP Nausea & Vomiting 09/25/20 00:15 10/25/20 00:14 Pantoprazole (Protonix) 40 mg Q12HR IVP 09/25/20 21:00 10/25/20 08:59 10/08/20 09:56 Polyethylene Glycol (Miralax) 17 gm DAILYPRN PRN ORAL Constipation 09/25/20 00:15 10/25/20 00:14 Marixa Oliva M.D. Oct 08, 2020 11:27
--- NOTE | 2020-10-08 14:13 | Surgery Progress Note ---
Surgery Progress Note Subjective Additional Comments no acute events ill appearing on support Objective Last 24 Hour Vital Signs Date Time Temp Pulse Resp B/P (MAP) Pulse Ox O2 Delivery O2 Flow Rate FiO2 10/08/20 13:00 89 16 112/62 (79) 100 10/08/20 12:00 97.7 108 16 105/66 (79) 100 10/08/20 12:00 Mechanical Ventilator 10/08/20 12:00 40 10/08/20 11:58 121 10/08/20 11:00 119 16 114/54 (74) 100 10/08/20 10:59 101.0 10/08/20 10:00 117 16 90/60 (70) 100 10/08/20 09:00 125 16 122/68 (86) 100 10/08/20 08:00 102.0 123 17 110/66 (81) 100 10/08/20 08:00 114 10/08/20 08:00 Mechanical Ventilator 10/08/20 08:00 40 10/08/20 07:21 124 16 40 10/08/20 07:03 122 16 40 10/08/20 07:00 121 16 107/61 (76) 100 10/08/20 06:00 120 16 108/78 (88) 100 10/08/20 05:00 117 16 98/69 (79) 100 10/08/20 04:00 99.2 115 16 105/68 (80) 100 10/08/20 04:00 114 10/08/20 04:00 Mechanical Ventilator 10/08/20 04:00 40 10/08/20 03:00 114 17 104/56 (72) 100 10/08/20 02:00 110 16 103/57 (72) 100 10/08/20 01:22 90 16 40 10/08/20 01:00 102 17 119/55 (76) 100 10/08/20 00:00 Mechanical Ventilator 10/08/20 00:00 40 10/08/20 00:00 98.7 92 16 115/62 (79) 100 10/08/20 00:00 90 10/07/20 23:00 93 16 120/63 (82) 100 10/07/20 22:51 84 16 40 10/07/20 22:00 95 16 123/65 (84) 100 10/07/20 21:00 96 16 116/63 (80) 100 10/07/20 20:00 91 16 109/55 (73) 100 10/07/20 20:00 88 10/07/20 20:00 Mechanical Ventilator 10/07/20 20:00 40 10/07/20 19:37 74 16 40 10/07/20 19:00 86 18 108/68 (81) 100 10/07/20 18:00 69 16 115/63 (80) 100 10/07/20 17:00 98.5 94 16 90/51 (64) 100 10/07/20 16:00 40 10/07/20 16:00 97 10/07/20 16:00 94 16 91/60 (70) 100 10/07/20 16:00 Mechanical Ventilator 10/07/20 15:50 98.6 10/07/20 15:13 96 16 40 10/07/20 15:00 93 16 114/66 (82) 100 I&O Intake and Output 10/07/20 10/08/20 19:00 07:00 Intake Total 205 ml 495 ml Output Total 590 ml 720 ml Balance -385 ml -225 ml Intake Free Water 150 ml IV Total 55 ml 55 ml Tube Feeding 0 ml 440 ml Output Urine Total 590 ml 720 ml Dressing: saturated Cardiovascular: RSR Respiratory: decreased breath sounds Abdomen: soft, non-tender, present bowel sounds Extremities: no tenderness, no cyanosis Laboratory Tests Test 10/08/20 05:43 POC Whole Blood Glucose Pending Plan Problems: (1) Hypoxia (2) Severe sepsis Assessment & Plan: leukocytosis lactic acidosis anemia renal insufficiency on support in ICU dressings changed and care plan initiated cont abx trend labs if fluids am imaging ordered remains febrile cont abx cooling measures worsening respiratory cont support CT pending results Non-Blanchable erythema noted to R and L earlobes. Erythematous, scaly pimple- like rash,some of which are scaly and others small papules noted to R and L axillae, upper R and L chest and back ,R and L groin areas. Pt observed to persistently scratch affected areas described. Incontinence Associated Dermatitis Buttocks, R and L Ischial tuberosities are erythematous,denuded with shearing and scattered satellite lesions. Per staff pt frequently removes or dislodges Condom cath. R Heel is boggy with non-blanchable erythema. L Heel is boggy with Non-Blanchable erythema. Pt presented on admission with Multiple Pressure Injuries. Sacral DTPI which extends into R and L Gluteal cheeks and is partially opened upper R gluteus (L) 14cm x (W)15cm. DTPI noted within hypertrophic scar from previous Pressure injury. Base of wound is purpuric at cleft ,and indurated. Non-Blanchable erythema with additional shearing periwound. An area of induration with darker skin tone noted to L Ischium. Darker skin tone without induration R Ischium. Scrotum is erythematous and swollen. DTPI L Heel and Plantar L Heel(L)4cm x (W)3.5cm. Base of Pressure Injury roca colored Blister with darker center. Periwound is fluctuant with non-Blanchable erythema. DTPI R Heel (L)2.7cm x (W)4cm. Non-Blanchable erythema without induration/fluctuance R Hallux. Non-Blanchable erythema without induration/fluctuance L Hallux. Tx.Plan:Apply Cavilon Skin Barrier to both R and L ears.(Pad Oxygen Tubing as Needed.) Apply Moisture Barrier Paste to bilat groin and bilat ischial tuberosities with eqach Incontinence care. Apply Cavilon Skin Barrier to both heels. Cover each heel with Optifoam drsg. Change every 7 days and prn. Cleanse Sacral wound with Saline. Apply Therahoney. Apply Moisture Barrier Paste periwound. Cover with Optifoam drsg. Change every 3 days and prn. Apply Moisture Barrier Paste to Scrotum,R and L ischial tuberosities with each incontinence care. Apply Cavilon Skin Barrier to R and L Hallux. Cover each site with Optifoam drsgs. Change every 7 days and prn. Reposition at least every 2hours or as tolerated. Off-load heels with pillow. APM/ALEK Mattress overlay improving cont current care tube site okay DAILY ESTIMATED NEEDS: Needs based on Critical care, DM, Wound/ 62.73kg 22-30 kcals/kg 1524-3337 total kcals 1.25-2 g protein/kg 78-125 g total protein 25-30 mL/kg 6743-7352 total fluid mLs NUTRITION DIAGNOSIS: * Swallowing difficulty R/T dysphagia as evidenced by Pt is GT dep, currently orally intubated, off pressor support, on GT feeds. CURRENT TF:NPO ENTERAL NUTRITION RECOMMENDATIONS: Glucerna 1.2 @ 55ml/hr x 24 hrs to provide 1320ml, 1584kcal, 79g prot, 1063ml free water * Maintain current TF: meets 100 % est kcal/prot needs * HOB over 30 degrees * H2O flush of 180ml q 6hrs ADDITIONAL RECOMMENDATIONS: * Per SNF: HT=5'7" WT= 138lbs (as of Sep 13, 2020) * Monitor hemodynamic stability: NE @ 8mcg-> now off * Wound healing: TF rec @ goal provides 100% RDI add Vit C 500mg QD + Terrance BID via TF * Monitor lytes, replete as needed * Rec long acting insulin for improved BG control . (3) Dehydration (4) Hypernatremia (5) Clostridium difficile colitis (6) Staphylococcus aureus bacteremia (7) Hip fracture, left (8) Diabetes mellitus (9) History of hypertension (10) Severe protein-calorie malnutrition (11) Acute encephalopathy (12) Pressure Ulcer Of Sacral Region, Unstageable (13) Feeding by G-tube (14) Abdominal distention (15) Multiple drug resistant organism (MDRO) culture positive (16) Sepsis (17) History of CVA (cerebrovascular accident) (18) Parkinson disease James Breen Oct 08, 2020 14:13
--- NOTE | 2020-10-08 16:03 | Pulmonolgy Critical Care Note ---
Critical Care - Asmt/Plan Problems: (1) Acute respiratory failure (2) Severe sepsis (3) Diabetes mellitus (4) Severe protein-calorie malnutrition (5) History of hypertension (6) History of CVA (cerebrovascular accident) (7) Parkinson disease (8) Feeding by G-tube Respiratory: monitor respiratory rate, adjust FIO2, CXR Cardiac: continue to monitor HR/BP Renal: F/U I&O, keep IV fluid, check electrolytes Infectious Disease: continue antibiotics Gastrointestinal: continue feedings/current rate Endocrine: continue sliding scale insulin Hematologic: monitor H/H, transfuse if hgb<8.5 Neurologic: keep patient comfortable Disposition: keep in ICU Time Spent (Minutes): 40 Notes Reviewed: disc pad grinding machine feeder, cardio, renal Discussed with: nurses, consultants, business case analyst, family member Critical Care - Objective Last 24 Hour Vital Signs Date Time Temp Pulse Resp B/P (MAP) Pulse Ox O2 Delivery O2 Flow Rate FiO2 10/08/20 14:13 94 16 40 10/08/20 14:00 99 16 113/65 (81) 100 10/08/20 13:00 89 16 112/62 (79) 100 10/08/20 12:00 97.7 108 16 105/66 (79) 100 10/08/20 12:00 Mechanical Ventilator 10/08/20 12:00 40 10/08/20 11:58 121 10/08/20 11:00 119 16 114/54 (74) 100 10/08/20 10:59 101.0 10/08/20 10:00 117 16 90/60 (70) 100 10/08/20 09:00 125 16 122/68 (86) 100 10/08/20 08:00 102.0 123 17 110/66 (81) 100 10/08/20 08:00 114 10/08/20 08:00 Mechanical Ventilator 10/08/20 08:00 40 10/08/20 07:21 124 16 40 10/08/20 07:03 122 16 40 10/08/20 07:00 121 16 107/61 (76) 100 10/08/20 06:00 120 16 108/78 (88) 100 10/08/20 05:00 117 16 98/69 (79) 100 10/08/20 04:00 99.2 115 16 105/68 (80) 100 12/26/20 04:00 114 10/08/20 04:00 Mechanical Ventilator 10/08/20 04:00 40 10/08/20 03:00 114 17 104/56 (72) 100 10/08/20 02:00 110 16 103/57 (72) 100 10/08/20 01:22 90 16 40 10/08/20 01:00 102 17 119/55 (76) 100 10/08/20 00:00 Mechanical Ventilator 10/08/20 00:00 40 10/08/20 00:00 98.7 92 16 115/62 (79) 100 10/08/20 00:00 90 10/07/20 23:00 93 16 120/63 (82) 100 10/07/20 22:51 84 16 40 10/07/20 22:00 95 16 123/65 (84) 100 10/07/20 21:00 96 16 116/63 (80) 100 10/07/20 20:00 91 16 109/55 (73) 100 10/07/20 20:00 88 10/07/20 20:00 Mechanical Ventilator 10/07/20 20:00 40 10/07/20 19:37 74 16 40 10/07/20 19:00 86 18 108/68 (81) 100 10/07/20 18:00 69 16 115/63 (80) 100 10/07/20 17:00 98.5 94 16 90/51 (64) 100 Status: sedated Condition: critical HEENT: atraumatic Neck: full ROM Lungs: rales, rhonchi Heart: HR/BP stable Abdomen: soft, active bowel sounds Extremities: no C/C/E Micro: Microbiology Date/Time Source Procedure Growth Status 10/06/20 13:07 Blood Blood Culture - Preliminary NO GROWTH AFTER 24 HOURS Resulted 10/06/20 12:57 Blood Blood Culture - Preliminary NO GROWTH AFTER 24 HOURS Resulted Accucheck: 252 Critical Care - Subjective ROS Limited/Unobtainable: Yes Condition: critical FI02: 40 Vent Support Breath Rate: 16 Vent Support Mode: AC Vent Tidal Volume: 600 Sputum Amount: Small PEEP: 0.0 PIP: 29 Tube Feeding Amount: 0 I&O: Intake and Output 10/07/20 10/08/20 19:00 07:00 Intake Total 205 ml 495 ml Output Total 590 ml 720 ml Balance -385 ml -225 ml Intake Free Water 150 ml IV Total 55 ml 55 ml Tube Feeding 0 ml 440 ml Output Urine Total 590 ml 720 ml ET-Tube: 7.0 ET Position: 23 Labs: Laboratory Tests Test 10/08/20 05:43 POC Whole Blood Glucose Pending Latanay Mckeon MD Oct 08, 2020 16:03
--- NOTE | 2020-10-08 17:19 | Internal Med Progress Note ---
Subjective Physician Name Cirilo Rome Attending Physician Cirilo Rome MD Current Medications Medications (Trade) Dose Ordered Sig/Debi Route PRN Reason Start Time Stop Time Status Last Admin Dose Admin Acetaminophen (Tylenol) 650 mg Q4H PRN GT FEVER 10/03/20 01:15 11/02/20 01:14 10/08/20 10:12 Ascorbic Acid (Vitamin C) 250 mg TWICE A DAY GT 10/03/20 18:00 11/02/20 17:59 10/08/20 09:56 Chlorhexidine Gluconate (Jazmin-Hex 2%) 1 applic DAILY@2000 TOPIC 09/26/20 20:00 12/25/20 19:59 10/07/20 21:49 Dextrose (Dextrose 50%) 25 ml Q30M PRN IV Hypoglycemia 09/25/20 15:30 12/24/20 15:29 Dextrose (Dextrose 50%) 50 ml Q30M PRN IV Hypoglycemia 09/25/20 15:30 12/24/20 15:29 Heparin Sodium (Porcine) (Heparin 5000 units/ml) 5,000 units EVERY 12 HOURS SUBQ 09/25/20 09:00 11/09/20 08:59 10/08/20 09:58 Insulin Aspart (NovoLOG) Q6HR SUBQ 10/04/20 00:00 01/02/21 00:00 10/08/20 12:00 Meropenem 1 gm/ Sodium Chloride 55 ml @ 110 mls/hr Q8H IVPB 10/05/20 18:00 10/10/20 17:59 10/08/20 09:57 Midodrine (Pro-Amatine) 10 mg Q8HR GT 09/30/20 14:00 12/29/20 13:59 10/08/20 14:00 Ondansetron HCl (Zofran) 4 mg Q6H PRN IVP Nausea & Vomiting 09/25/20 00:15 10/25/20 00:14 Pantoprazole (Protonix) 40 mg Q12HR IVP 09/25/20 21:00 10/25/20 08:59 10/08/20 09:56 Polyethylene Glycol (Miralax) 17 gm DAILYPRN PRN ORAL Constipation 09/25/20 00:15 10/25/20 00:14 Allergies: Coded Allergies: No Known Allergies (Unverified , 08/27/19) Subjective in ICU, intubated, remained on ventilation, open his eyes, responsive, interactive, no labs today Objective Last Vital Signs Date Time Temp Pulse Resp B/P (MAP) Pulse Ox O2 Delivery O2 Flow Rate FiO2 10/08/20 16:00 Mechanical Ventilator 10/08/20 16:00 88 10/08/20 16:00 98.2 16 103/65 (78) 100 10/08/20 14:13 40 Laboratory Tests Test 10/08/20 05:43 POC Whole Blood Glucose Pending Microbiology Date/Time Source Procedure Growth Status 10/06/20 13:07 Blood Blood Culture - Preliminary NO GROWTH AFTER 24 HOURS Resulted 10/06/20 12:57 Blood Blood Culture - Preliminary NO GROWTH AFTER 24 HOURS Resulted Intake and Output 10/07/20 10/08/20 19:00 07:00 Intake Total 205 ml 495 ml Output Total 590 ml 720 ml Balance -385 ml -225 ml Intake Free Water 150 ml IV Total 55 ml 55 ml Tube Feeding 0 ml 440 ml Output Urine Total 590 ml 720 ml Objective PHYSICAL EXAMINATION: GENERAL: intubated, open his eyes, await, responsive, HEENT: Eyes, pupils are equal responsive to light and accommodation. ET tube. NECK: Supple No JVD CHEST: mechanical breath sound, decreased air at bases, no wheezes. CARDIOVASCULAR: Regular rate. S1 and S2 normal without murmurs, ABDOMEN: Soft, nontender, and nondistended. Positive bowel sounds. PEG site intact. EXTREMITIES: Negative for clubbing, cyanosis, +1 LE's UE edema. NEUROLOGIC: limited secondary to patient's status, unable to move extremities. Assessment/Plan Assessment/Plan ASSESSMENT: This is a 80-year-old male. 1. Acute hypoxemic Respiratory failure. 2. Bilateral pneumonia. 3. Hypertension. 4. Diabetes type 2. 5. Hypercholesterolemia. 6. Parkinson disease. 7. COVID-19 negative. 8. Ulcerative proctitis. 9. Benign prostatic hypertrophy. 10. Gastroesophageal reflux disease. 11. Urinary tract infection=proteus mirabilis 12. Sepsis=coag neg staph TREATMENT: 1. Pneumonia/respiratory failure. Infectious diseases = Drs. Harris/Pj. Merissa Pulmonary/Critical care= Dr. Latanya Mckeon. The patient is currently intubated on the mechanical ventilator in the intensive care unit. 2. Urinary tract infection. ABX= Ertapenem. 3. Hypertension. The patient is currently hypotensive. 4. Diabetes type 2. NovoLog sliding scale has been instituted. 5. Hypercholesterolemia. Continue simvastatin as above. 6. Parkinson disease. 7. Ulcerative proctitis. 8. Benign prostatic hypertrophy. 9. Gastroesophageal reflux disease. 10. Dysphagia. tolerated tube feeding CODE STATUS: Full code weaning trial. Cirilo Rome MD Oct 08, 2020 17:19
[2020-10-08] MEDS: Dyna-Hex 2% Top Sol 2oz TOPIC SCH (20:08)
[2020-10-09] VITALS (24 sets, daily range): BP systolic 92–125; BP diastolic 49–93
[2020-10-09] MEDS: Acetaminophen 650mg/20.3ml GT PRN ×2 (00:29→12:17)
[2020-10-09] MEDS: Meropenem 1 GM in NS 55 ML IVPB SCH ×3 (02:23→18:02)
[2020-10-09] MEDS: Midodrine 10mg tab GT SCH ×3 (05:33→21:27)
[2020-10-09] MEDS: NovoLOG Insulin Flexpen SUBQ SCH ×4 (06:02→18:35)
[2020-10-09 07:06] LABS: BASOPHILS % (AUTO) 0.7 % (0.0-2.0); EOSINOPHILS % (AUTO) 1.7 % (0.0-3.0); HEMATOCRIT 28.7 % (42.0-52.0); HEMOGLOBIN 9.6 G/DL (14.2-18.0); LYMPHOCYTES % (AUTO) 27.9 % (20.0-45.0); MEAN CORPUSCULAR VOLUME 78 FL (80-99); MONOCYTES % (AUTO) 6.8 % (1.0-10.0); NEUTROPHILS % (AUTO) 62.9 % (45.0-75.0); PLATELET COUNT 520 K/UL (150-450); RED BLOOD COUNT 3.69 M/UL (4.70-6.10); RED CELL DISTRIBUTION WIDTH 15.8 % (11.6-14.8); WHITE BLOOD COUNT 11.1 K/UL (4.8-10.8)
[2020-10-09 07:16] LABS: ALANINE AMINOTRANSFERASE 12 U/L (12-78); ALBUMIN 1.6 G/DL (3.4-5.0); ALBUMIN/GLOBULIN RATIO 0.3 (1.0-2.7); ALKALINE PHOSPHATASE 171 U/L (46-116); ANION GAP 9 mmol/L (5-15); ASPARTATE AMINO TRANSFERASE 19 U/L (15-37); BILIRUBIN,TOTAL 0.3 MG/DL (0.2-1.0); BLOOD UREA NITROGEN 14 mg/dL (7-18); CALCIUM 8.8 MG/DL (8.5-10.1); CARBON DIOXIDE 26 MMOL/L (21-32); CHLORIDE 118 MMOL/L (98-107); CREATININE 1.3 MG/DL (0.55-1.30); PHOSPHORUS 2.4 MG/DL (2.5-4.9); POTASSIUM 3.1 MMOL/L (3.5-5.1); SODIUM 153 MMOL/L (136-145)
[2020-10-09] MEDS: Pantoprazole Inj IVP SCH ×2 (09:14→20:31)
[2020-10-09] MEDS: Ascorbic Acid 500mg tab GT SCH ×2 (09:14→18:02)
[2020-10-09] MEDS: Heparin 5000 units/ml inj SUBQ SCH ×2 (09:15→20:32)
--- NOTE | 2020-10-09 13:17 | Pulmonolgy Critical Care Note ---
Critical Care - Asmt/Plan Problems: (1) Acute respiratory failure (2) Severe sepsis (3) Diabetes mellitus (4) Severe protein-calorie malnutrition (5) History of hypertension (6) History of CVA (cerebrovascular accident) (7) Parkinson disease (8) Feeding by G-tube Respiratory: monitor respiratory rate, adjust FIO2, CXR Cardiac: continue to monitor HR/BP Renal: F/U I&O, keep IV fluid, check electrolytes Infectious Disease: check cultures Gastrointestinal: continue feedings/current rate Endocrine: monitor blood sugar, check TSH Hematologic: monitor H/H Neurologic: PRN Ativan, PRN Morphine Prophylaxis: Protonix 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, 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 Discussed with: nurses, consultants, family member Critical Care - Objective Last 24 Hour Vital Signs Date Time Temp Pulse Resp B/P (MAP) Pulse Ox O2 Delivery O2 Flow Rate FiO2 10/09/20 13:00 98.6 98 16 114/59 (77) 100 10/09/20 12:47 98.6 10/09/20 12:00 Mechanical Ventilator 10/09/20 12:00 40 10/09/20 12:00 100.5 90 16 114/66 (82) 100 10/09/20 11:00 81 16 112/54 (73) 100 10/09/20 10:00 93 16 114/51 (72) 100 10/09/20 09:00 76 16 103/53 (70) 100 10/09/20 08:00 Mechanical Ventilator 10/09/20 08:00 98.6 77 16 113/58 (76) 100 10/09/20 08:00 80 10/09/20 08:00 40 10/09/20 07:25 80 16 40 10/09/20 07:00 80 16 110/56 (74) 100 10/09/20 06:00 78 16 115/57 (76) 100 10/09/20 05:00 78 16 111/70 (84) 100 10/09/20 04:00 40 10/09/20 04:00 98.6 71 16 99/54 (69) 100 10/09/20 04:00 90 10/09/20 04:00 Mechanical Ventilator 10/09/20 03:00 67 16 109/54 (72) 100 10/09/20 02:00 86 16 92/49 (63) 100 10/09/20 01:25 80 16 40 10/09/20 01:00 89 16 113/62 (79) 100 10/09/20 00:59 99.8 10/09/20 00:28 100.3 10/09/20 00:00 Mechanical Ventilator 10/09/20 00:00 99.8 76 16 115/59 (77) 100 10/09/20 00:00 86 10/08/20 23:00 85 16 106/56 (73) 100 10/08/20 22:00 90 16 113/53 (73) 100 10/08/20 21:00 95 16 103/58 (73) 100 10/08/20 20:00 40 10/08/20 20:00 Mechanical Ventilator 10/08/20 20:00 99.0 93 16 115/61 (79) 100 10/08/20 19:00 93 16 99/62 (74) 100 10/08/20 18:30 90 16 40 10/08/20 18:00 92 16 115/65 (82) 100 10/08/20 17:00 87 16 92/69 (77) 100 10/08/20 16:00 Mechanical Ventilator 10/08/20 16:00 88 10/08/20 16:00 98.2 87 16 103/65 (78) 100 10/08/20 15:00 87 16 103/56 (72) 100 10/08/20 14:13 94 16 40 10/08/20 14:00 99 16 113/65 (81) 100 Status: awake Condition: critical Lungs: clear Heart: HR/BP stable Abdomen: soft, non-tender, feeding tube Decubiti: location Micro: Microbiology Date/Time Source Procedure Growth Status 10/08/20 15:30 Sputum Gram Stain - Final Resulted 10/08/20 15:30 Sputum Sputum Culture Pending Resulted Accucheck: 167 Critical Care - Subjective ROS Limited/Unobtainable: Yes Interval Events: doing better Condition: critical EKG Rhythm: Sinus Rhythm FI02: 40 Vent Support Breath Rate: 16 Vent Support Mode: AC Vent Tidal Volume: 600 Sputum Amount: Small PEEP: 0.0 PIP: 29 Tube Feeding Amount: 0 I&O: Intake and Output 10/08/20 10/09/20 19:00 07:00 Intake Total 405 ml 220 ml Output Total 760 ml 740 ml Balance -355 ml -520 ml IV Total 110 ml 55 ml Tube Feeding 275 ml 165 ml Other 20 ml Output Urine Total 760 ml 740 ml # Bowel Movements 3 2 CXR: Improving bilateral interstitial and airspace opacities with mild persistent left lower lobe airspace disease. ET-Tube: 7.0 ET Position: 23 Labs: Laboratory Tests Test 10/08/20 13:42 10/09/20 06:05 10/09/20 12:17 POC Whole Blood Glucose 252 MG/DL (74-106) H 167 MG/DL (74-106) H White Blood Count 11.1 K/UL (4.8-10.8) H Red Blood Count 3.69 M/UL (4.70-6.10) L Hemoglobin 9.6 G/DL (14.2-18.0) L Hematocrit 28.7 % (42.0-52.0) L Mean Corpuscular Volume 78 FL (80-99) L Mean Corpuscular Hemoglobin 26.1 PG (27.0-31.0) L Mean Corpuscular Hemoglobin Concent 33.5 G/DL (32.0-36.0) Red Cell Distribution Width 15.8 % (11.6-14.8) H Platelet Count 520 K/UL (150-450) H Mean Platelet Volume 9.4 FL (6.5-10.1) Neutrophils (%) (Auto) 62.9 % (45.0-75.0) Lymphocytes (%) (Auto) 27.9 % (20.0-45.0) Monocytes (%) (Auto) 6.8 % (1.0-10.0) Eosinophils (%) (Auto) 1.7 % (0.0-3.0) Basophils (%) (Auto) 0.7 % (0.0-2.0) Erythrocyte Sedimentation Rate 116 MM/HR (0-20) H Sodium Level 153 MMOL/L (136-145) H Potassium Level 3.1 MMOL/L (3.5-5.1) L Chloride Level 118 MMOL/L (98-107) H Carbon Dioxide Level 26 MMOL/L (21-32) Anion Gap 9 mmol/L (5-15) Blood Urea Nitrogen 14 mg/dL (7-18) Creatinine 1.3 MG/DL (0.55-1.30) Estimat Glomerular Filtration Rate > 60 mL/min (>60) Glucose Level 220 MG/DL (74-106) H Calcium Level 8.8 MG/DL (8.5-10.1) Phosphorus Level 2.4 MG/DL (2.5-4.9) L Magnesium Level 2.3 MG/DL (1.8-2.4) Total Bilirubin 0.3 MG/DL (0.2-1.0) Aspartate Amino Transf (AST/SGOT) 19 U/L (15-37) Alanine Aminotransferase (ALT/SGPT) 12 U/L (12-78) Alkaline Phosphatase 171 U/L (46-116) H C-Reactive Protein, Quantitative 18.3 mg/dL (0.00-0.90) H Total Protein 7.6 G/DL (6.4-8.2) Albumin 1.6 G/DL (3.4-5.0) L Globulin 6.0 g/dL Albumin/Globulin Ratio 0.3 (1.0-2.7) L Vitamin D 25-Hydroxy Pending 25-Hydroxy Vitamin D2 Pending 25-Hydroxy Vitamin D3 Pending Latanya Mckeon MD Oct 09, 2020 13:17
--- NOTE | 2020-10-09 14:15 | Nephrology Progress Note ---
Assessment/Plan Problem List: (1) KELLY (acute kidney injury) (2) Dehydration (3) Hypernatremia (4) Severe sepsis (5) History of CVA (cerebrovascular accident) (6) Parkinson disease (7) Acute respiratory failure (8) Elevated lipase Assessment KELLY, Hypernatremia, dehydration, free water deficit Sepsis Acute respiratory failure requiring intubation and mechanical ventilation Diabetes mellitus [id number] GT feeding History of CVA History of hypertension Parkinson's disease Elevated lipase Plan October 09: Labs reviewed. K-Phos and 1 L D5W ordered. Continue per consultants. Continue to monitor electrolytes and renal parameters. October 08: No CHEM panel drawn today. Will check lab tomorrow. Continue per consultants. October 07: Labs reviewed. Abnormal electrolytes addressed. Bolus of 500 cc D5W for elevated serum sodium given. Continue to monitor electrolytes and renal parameters. October 06: Labs reviewed. K-Phos replaced. Will give another liter of D5W. Continue to monitor electrolytes and renal parameters. October 05: Labs reviewed. Serum sodium rising. 1 L D5W IV ordered. Continue to monitor electrolytes. Continue per consultants. October 04: No CHEM panel was done today. Patient remain intubated on ventilator and full code. We will order labs tomorrow. Continue per consultants. October 03: Discussed with RN. Labs are reviewed. Potassium and phosphate replacement ordered. Continue per consultants. Patient remains full code intubated on ventilator. Serum creatinine up to 1.5. Continue to monitor renal parameters. October 02: Remains in ICU and intubated. Labs reviewed. Serum creatinine 1.3. Serum sodium slightly elevated. Continue to monitor renal parameters and electrolytes. October 01: Seen in ICU. Discussed with RN. No chemistry panel done today. Blood pressure hovering around 100 systolic. Will check labs tomorrow. Continue per consultants. September 30: Labs reviewed. Renal parameters stable. Blood pressure hovering around 90s systolic. We will add midodrine through GT tube. Continue per consultants. September 29: Labs reviewed. Serum creatinine down to 1.3 and electrolytes reviewed. Abnormal electrolytes addressed. Continue per consultants. September 28: Labs reviewed. Creatinine 1.6 unchanged. Hypernatremia persists. Will give 1 L of D5W. Continue to monitor renal parameters and electrolytes. Continue per consultants. September 27: Labs reviewed. Serum sodium lowering. Serum creatinine lowering. Blood sugar somewhat better controlled. Patient continues to be on free water through tube feeding. Continue to monitor renal parameters and electrolytes. Abnormal electrolytes addressed. September 26: IV fluids stopped. Patient receiving free water reviewed NG tube. Patient full code. Intubated on ventilator. Discussed with JOHNNY Christensen. Continue to monitor renal parameters. Serum creatinine lower but abnormal electrolyte persists and was addressed. Previously: IV fluid half-normal saline 125 cc an hour Albumin fluid challenge Monitor electrolytes Monitor renal parameters Hold blood pressure medication since blood pressure low Per orders, per consultants Subjective ROS Limited/Unobtainable: Yes Objective Objective Last 24 Hour Vital Signs Date Time Temp Pulse Resp B/P (MAP) Pulse Ox O2 Delivery O2 Flow Rate FiO2 10/09/20 13:00 98.6 98 16 114/59 (77) 100 10/09/20 12:47 98.6 10/09/20 12:00 Mechanical Ventilator 10/09/20 12:00 40 10/09/20 12:00 100.5 90 16 114/66 (82) 100 10/09/20 11:00 81 16 112/54 (73) 100 10/09/20 10:00 93 16 114/51 (72) 100 10/09/20 09:00 76 16 103/53 (70) 100 10/09/20 08:00 Mechanical Ventilator 10/09/20 08:00 98.6 77 16 113/58 (76) 100 10/09/20 08:00 80 10/09/20 08:00 40 10/09/20 07:25 80 16 40 10/09/20 07:00 80 16 110/56 (74) 100 10/09/20 06:00 78 16 115/57 (76) 100 10/09/20 05:00 78 16 111/70 (84) 100 10/09/20 04:00 40 10/09/20 04:00 98.6 71 16 99/54 (69) 100 10/09/20 04:00 90 10/09/20 04:00 Mechanical Ventilator 10/09/20 03:00 67 16 109/54 (72) 100 10/09/20 02:00 86 16 92/49 (63) 100 10/09/20 01:25 80 16 40 10/09/20 01:00 89 16 113/62 (79) 100 10/09/20 00:59 99.8 10/09/20 00:28 100.3 10/09/20 00:00 Mechanical Ventilator 10/09/20 00:00 99.8 76 16 115/59 (77) 100 10/09/20 00:00 86 10/08/20 23:00 85 16 106/56 (73) 100 10/08/20 22:00 90 16 113/53 (73) 100 10/08/20 21:00 95 16 103/58 (73) 100 10/08/20 20:00 40 10/08/20 20:00 Mechanical Ventilator 10/08/20 20:00 99.0 93 16 115/61 (79) 100 10/08/20 19:00 93 16 99/62 (74) 100 10/08/20 18:30 90 16 40 10/08/20 18:00 92 16 115/65 (82) 100 10/08/20 17:00 87 16 92/69 (77) 100 10/08/20 16:00 Mechanical Ventilator 10/08/20 16:00 88 10/08/20 16:00 98.2 87 16 103/65 (78) 100 10/08/20 15:00 87 16 103/56 (72) 100 Intake and Output 10/08/20 10/09/20 19:00 07:00 Intake Total 405 ml 220 ml Output Total 760 ml 740 ml Balance -355 ml -520 ml IV Total 110 ml 55 ml Tube Feeding 275 ml 165 ml Other 20 ml Output Urine Total 760 ml 740 ml # Bowel Movements 3 2 Laboratory Tests 10/09/20 06:05: White Blood Count 11.1H, Red Blood Count 3.69L, Hemoglobin 9.6L, Hematocrit 28.7L, Mean Corpuscular Volume 78L, Mean Corpuscular Hemoglobin 26.1L, Mean Corpuscular Hemoglobin Concent 33.5, Red Cell Distribution Width 15.8H, Platelet Count 520H, Mean Platelet Volume 9.4, Neutrophils (%) (Auto) 62.9, Lymphocytes (%) (Auto) 27.9, Monocytes (%) (Auto) 6.8, Eosinophils (%) (Auto) 1.7, Basophils (%) (Auto) 0.7, Erythrocyte Sedimentation Rate 116H, Sodium Level 153H, Potassium Level 3.1L, Chloride Level 118H, Carbon Dioxide Level 26, Anion Gap 9, Blood Urea Nitrogen 14, Creatinine 1.3, Estimat Glomerular Filtration Rate > 60, Glucose Level 220H, Calcium Level 8.8, Phosphorus Level 2.4L, Magnesium Level 2.3, Total Bilirubin 0.3, Aspartate Amino Transf (AST/SGOT) 19, Alanine Aminotransferase (ALT/SGPT) 12, Alkaline Phosphatase 171H, C-Reactive Protein, Quantitative 18.3H, Total Protein 7.6, Albumin 1.6L, Globulin 6.0, Albumin/Globulin Ratio 0.3L, Vitamin D 25-Hydroxy [Pending], 25-Hydroxy Vitamin D2 [Pending], 25-Hydroxy Vitamin D3 [Pending] 10/09/20 12:17: POC Whole Blood Glucose 167H Height (Feet): 5 Height (Inches): 10.00 Weight (Pounds): 180 General Appearance: no apparent distress EENT: other - Intubated on mechanical ventilator Cardiovascular: tachycardia Respiratory/Chest: decreased breath sounds Abdomen: distended Eddie Nelson MD Oct 09, 2020 14:15
--- NOTE | 2020-10-09 15:07 | Internal Med Progress Note ---
Subjective Physician Name Cirilo Rome Attending Physician Cirilo Rome MD Current Medications Medications (Trade) Dose Ordered Sig/Debi Route PRN Reason Start Time Stop Time Status Last Admin Dose Admin Acetaminophen (Tylenol) 650 mg Q4H PRN GT FEVER 10/03/20 01:15 11/02/20 01:14 10/09/20 12:17 Ascorbic Acid (Vitamin C) 250 mg TWICE A DAY GT 10/03/20 18:00 11/02/20 17:59 10/09/20 09:14 Chlorhexidine Gluconate (Jazmin-Hex 2%) 1 applic DAILY@2000 TOPIC 09/26/20 20:00 12/25/20 19:59 10/08/20 20:08 Dextrose 1,000 ml @ 100 mls/hr Q10H IV 10/09/20 09:15 11/08/20 09:14 10/09/20 10:52 Dextrose (Dextrose 50%) 25 ml Q30M PRN IV Hypoglycemia 09/25/20 15:30 12/24/20 15:29 Dextrose (Dextrose 50%) 50 ml Q30M PRN IV Hypoglycemia 09/25/20 15:30 12/24/20 15:29 Heparin Sodium (Porcine) (Heparin 5000 units/ml) 5,000 units EVERY 12 HOURS SUBQ 09/25/20 09:00 11/09/20 08:59 10/09/20 09:15 Insulin Aspart (NovoLOG) Q6HR SUBQ 10/04/20 00:00 01/02/21 00:00 10/09/20 12:53 Meropenem 1 gm/ Sodium Chloride 55 ml @ 110 mls/hr Q8H IVPB 10/05/20 18:00 10/11/20 17:59 10/09/20 09:14 Midodrine (Pro-Amatine) 10 mg Q8HR GT 09/30/20 14:00 12/29/20 13:59 10/09/20 13:06 Ondansetron HCl (Zofran) 4 mg Q6H PRN IVP Nausea & Vomiting 09/25/20 00:15 10/25/20 00:14 Pantoprazole (Protonix) 40 mg Q12HR IVP 09/25/20 21:00 10/25/20 08:59 10/09/20 09:14 Polyethylene Glycol (Miralax) 17 gm DAILYPRN PRN ORAL Constipation 09/25/20 00:15 10/25/20 00:14 Allergies: Coded Allergies: No Known Allergies (Unverified , 08/27/19) Subjective in ICU, intubated, remained on ventilation, open his eyes, responsive, interactive, WBC: 11.1, K: 3.1. Objective Last Vital Signs Date Time Temp Pulse Resp B/P (MAP) Pulse Ox O2 Delivery O2 Flow Rate FiO2 10/09/20 13:00 98.6 98 16 114/59 (77) 100 10/09/20 12:00 Mechanical Ventilator 10/09/20 12:00 40 Laboratory Tests Test 10/09/20 06:05 10/09/20 12:17 White Blood Count 11.1 K/UL (4.8-10.8) H Red Blood Count 3.69 M/UL (4.70-6.10) L Hemoglobin 9.6 G/DL (14.2-18.0) L Hematocrit 28.7 % (42.0-52.0) L Mean Corpuscular Volume 78 FL (80-99) L Mean Corpuscular Hemoglobin 26.1 PG (27.0-31.0) L Mean Corpuscular Hemoglobin Concent 33.5 G/DL (32.0-36.0) Red Cell Distribution Width 15.8 % (11.6-14.8) H Platelet Count 520 K/UL (150-450) H Mean Platelet Volume 9.4 FL (6.5-10.1) Neutrophils (%) (Auto) 62.9 % (45.0-75.0) Lymphocytes (%) (Auto) 27.9 % (20.0-45.0) Monocytes (%) (Auto) 6.8 % (1.0-10.0) Eosinophils (%) (Auto) 1.7 % (0.0-3.0) Basophils (%) (Auto) 0.7 % (0.0-2.0) Erythrocyte Sedimentation Rate 116 MM/HR (0-20) H Sodium Level 153 MMOL/L (136-145) H Potassium Level 3.1 MMOL/L (3.5-5.1) L Chloride Level 118 MMOL/L (98-107) H Carbon Dioxide Level 26 MMOL/L (21-32) Anion Gap 9 mmol/L (5-15) Blood Urea Nitrogen 14 mg/dL (7-18) Creatinine 1.3 MG/DL (0.55-1.30) Estimat Glomerular Filtration Rate > 60 mL/min (>60) Glucose Level 220 MG/DL (74-106) H Calcium Level 8.8 MG/DL (8.5-10.1) Phosphorus Level 2.4 MG/DL (2.5-4.9) L Magnesium Level 2.3 MG/DL (1.8-2.4) Total Bilirubin 0.3 MG/DL (0.2-1.0) Aspartate Amino Transf (AST/SGOT) 19 U/L (15-37) Alanine Aminotransferase (ALT/SGPT) 12 U/L (12-78) Alkaline Phosphatase 171 U/L (46-116) H C-Reactive Protein, Quantitative 18.3 mg/dL (0.00-0.90) H Total Protein 7.6 G/DL (6.4-8.2) Albumin 1.6 G/DL (3.4-5.0) L Globulin 6.0 g/dL Albumin/Globulin Ratio 0.3 (1.0-2.7) L Vitamin D 25-Hydroxy Pending 25-Hydroxy Vitamin D2 Pending 25-Hydroxy Vitamin D3 Pending POC Whole Blood Glucose 167 MG/DL (74-106) H Microbiology Date/Time Source Procedure Growth Status 10/08/20 15:30 Sputum Gram Stain - Final Resulted 10/08/20 15:30 Sputum Sputum Culture Pending Resulted Intake and Output 10/08/20 10/09/20 19:00 07:00 Intake Total 405 ml 220 ml Output Total 760 ml 740 ml Balance -355 ml -520 ml IV Total 110 ml 55 ml Tube Feeding 275 ml 165 ml Other 20 ml Output Urine Total 760 ml 740 ml # Bowel Movements 3 2 Objective PHYSICAL EXAMINATION: GENERAL: intubated, open his eyes, await, responsive, HEENT: Eyes, pupils are equal responsive to light and accommodation. ET tube. NECK: Supple No JVD CHEST: mechanical breath sound, decreased air at bases, no wheezes. CARDIOVASCULAR: Regular rate. S1 and S2 normal without murmurs, ABDOMEN: Soft, nontender, and nondistended. Positive bowel sounds. PEG site intact. EXTREMITIES: Negative for clubbing, cyanosis, +1 LE's UE edema. NEUROLOGIC: limited secondary to patient's status, unable to move extremities. Assessment/Plan Assessment/Plan ASSESSMENT: This is a 80-year-old male. 1. Acute hypoxemic Respiratory failure. 2. Bilateral pneumonia. 3. Hypertension. 4. Diabetes type 2. 5. Hypercholesterolemia. 6. Parkinson disease. 7. COVID-19 negative. 8. Ulcerative proctitis. 9. Benign prostatic hypertrophy. 10. Gastroesophageal reflux disease. 11. Urinary tract infection=proteus mirabilis 12. Sepsis=coag neg staph TREATMENT: 1. Pneumonia/respiratory failure. Infectious diseases = Drs. Harris/Pj. A Pulmonary/Critical care= Dr. Latanya Mckeon. The patient is currently intubated on the mechanical ventilator in the intensive care unit. 2. Urinary tract infection. ABX= Ertapenem. 3. Hypertension. The patient is currently hypotensive. 4. Diabetes type 2. NovoLog sliding scale has been instituted. 5. Hypercholesterolemia. Continue simvastatin as above. 6. Parkinson disease. 7. Ulcerative proctitis. 8. Benign prostatic hypertrophy. 9. Gastroesophageal reflux disease. 10. Dysphagia. tolerated tube feeding CODE STATUS: Full code weaning trial. Unable to reach the Family, at this time patient needs CT scan of abdomen with contrast, this test is necessary for this patient, I will consent on behalf of the patient at this time. Cirilo Rome MD Oct 09, 2020 15:07
--- NOTE | 2020-10-09 18:19 | Surgery Progress Note ---
Surgery Progress Note Subjective Additional Comments not tolerating weaning may need trach Objective Last 24 Hour Vital Signs Date Time Temp Pulse Resp B/P (MAP) Pulse Ox O2 Delivery O2 Flow Rate FiO2 10/09/20 16:00 40 10/09/20 16:00 79 10/09/20 16:00 98.6 71 19 112/54 (73) 100 10/09/20 15:00 78 16 112/62 (79) 100 10/09/20 15:00 80 16 40 10/09/20 14:00 85 16 125/70 (88) 100 10/09/20 13:00 98.6 98 16 114/59 (77) 100 10/09/20 12:47 98.6 10/09/20 12:00 Mechanical Ventilator 10/09/20 12:00 85 10/09/20 12:00 40 10/09/20 12:00 100.5 90 16 114/66 (82) 100 10/09/20 11:00 86 16 40 10/09/20 11:00 81 16 112/54 (73) 100 10/09/20 10:00 93 16 114/51 (72) 100 10/09/20 09:00 76 16 103/53 (70) 100 10/09/20 08:00 Mechanical Ventilator 10/09/20 08:00 98.6 77 16 113/58 (76) 100 10/09/20 08:00 80 10/09/20 08:00 40 10/09/20 07:25 80 16 40 10/09/20 07:00 80 16 110/56 (74) 100 10/09/20 06:00 78 16 115/57 (76) 100 10/09/20 05:00 78 16 111/70 (84) 100 10/09/20 04:00 40 10/09/20 04:00 98.6 71 16 99/54 (69) 100 10/09/20 04:00 90 10/09/20 04:00 Mechanical Ventilator 10/09/20 03:00 67 16 109/54 (72) 100 10/09/20 02:00 86 16 92/49 (63) 100 10/09/20 01:25 80 16 40 10/09/20 01:00 89 16 113/62 (79) 100 10/09/20 00:59 99.8 10/09/20 00:28 100.3 10/09/20 00:00 Mechanical Ventilator 10/09/20 00:00 99.8 76 16 115/59 (77) 100 10/09/20 00:00 86 10/08/20 23:00 85 16 106/56 (73) 100 10/08/20 22:00 90 16 113/53 (73) 100 10/08/20 21:00 95 16 103/58 (73) 100 10/08/20 20:00 40 10/08/20 20:00 Mechanical Ventilator 10/08/20 20:00 99.0 93 16 115/61 (79) 100 10/08/20 19:00 93 16 99/62 (74) 100 10/08/20 18:30 90 16 40 I&O Intake and Output 10/08/20 10/09/20 19:00 07:00 Intake Total 405 ml 220 ml Output Total 760 ml 740 ml Balance -355 ml -520 ml IV Total 110 ml 55 ml Tube Feeding 275 ml 165 ml Other 20 ml Output Urine Total 760 ml 740 ml # Bowel Movements 3 2 Dressing: saturated Cardiovascular: RSR Respiratory: decreased breath sounds Abdomen: non-tender, present bowel sounds Extremities: no tenderness, no cyanosis Laboratory Tests Test 10/09/20 06:05 10/09/20 12:17 White Blood Count 11.1 K/UL (4.8-10.8) H Red Blood Count 3.69 M/UL (4.70-6.10) L Hemoglobin 9.6 G/DL (14.2-18.0) L Hematocrit 28.7 % (42.0-52.0) L Mean Corpuscular Volume 78 FL (80-99) L Mean Corpuscular Hemoglobin 26.1 PG (27.0-31.0) L Mean Corpuscular Hemoglobin Concent 33.5 G/DL (32.0-36.0) Red Cell Distribution Width 15.8 % (11.6-14.8) H Platelet Count 520 K/UL (150-450) H Mean Platelet Volume 9.4 FL (6.5-10.1) Neutrophils (%) (Auto) 62.9 % (45.0-75.0) Lymphocytes (%) (Auto) 27.9 % (20.0-45.0) Monocytes (%) (Auto) 6.8 % (1.0-10.0) Eosinophils (%) (Auto) 1.7 % (0.0-3.0) Basophils (%) (Auto) 0.7 % (0.0-2.0) Erythrocyte Sedimentation Rate 116 MM/HR (0-20) H Sodium Level 153 MMOL/L (136-145) H Potassium Level 3.1 MMOL/L (3.5-5.1) L Chloride Level 118 MMOL/L (98-107) H Carbon Dioxide Level 26 MMOL/L (21-32) Anion Gap 9 mmol/L (5-15) Blood Urea Nitrogen 14 mg/dL (7-18) Creatinine 1.3 MG/DL (0.55-1.30) Estimat Glomerular Filtration Rate > 60 mL/min (>60) Glucose Level 220 MG/DL (74-106) H Calcium Level 8.8 MG/DL (8.5-10.1) Phosphorus Level 2.4 MG/DL (2.5-4.9) L Magnesium Level 2.3 MG/DL (1.8-2.4) Total Bilirubin 0.3 MG/DL (0.2-1.0) Aspartate Amino Transf (AST/SGOT) 19 U/L (15-37) Alanine Aminotransferase (ALT/SGPT) 12 U/L (12-78) Alkaline Phosphatase 171 U/L (46-116) H C-Reactive Protein, Quantitative 18.3 mg/dL (0.00-0.90) H Total Protein 7.6 G/DL (6.4-8.2) Albumin 1.6 G/DL (3.4-5.0) L Globulin 6.0 g/dL Albumin/Globulin Ratio 0.3 (1.0-2.7) L Vitamin D 25-Hydroxy Pending 25-Hydroxy Vitamin D2 Pending 25-Hydroxy Vitamin D3 Pending POC Whole Blood Glucose 167 MG/DL (74-106) H Plan Problems: (1) Hypoxia (2) Severe sepsis Assessment & Plan: leukocytosis lactic acidosis anemia renal insufficiency on support in ICU dressings changed and care plan initiated cont abx trend labs if fluids am imaging ordered remains febrile cont abx cooling measures worsening respiratory cont support CT pending results Non-Blanchable erythema noted to R and L earlobes. Erythematous, scaly pimple- like rash,some of which are scaly and others small papules noted to R and L axillae, upper R and L chest and back ,R and L groin areas. Pt observed to per sistently scratch affected areas described. Incontinence Associated Dermatitis Buttocks, R and L Ischial tuberosities are erythematous,denuded with shearing and scattered satellite lesions. Per staff pt frequently removes or dislodges Condom cath. R Heel is boggy with non-blanchable erythema. L Heel is boggy with Non-Blanchable erythema. Pt presented on admission with Multiple Pressure Injuries. Sacral DTPI which extends into R and L Gluteal cheeks and is partially opened upper R gluteus (L)14cm x (W)15cm. DTPI noted within hypertrophic scar from previous Pressure injury. Base of wound is purpuric at rm cleft ,and indurated. Non-Blanchable erythema with additional shearing periwound. An area of induration with darker skin tone noted to L Ischium. Darker skin tone without induration R Ischium. Scrotum is erythematous and swollen. DTPI L Heel and Plantar L Heel(L)4cm x (W)3.5cm. Base of Pressure Injury roca colored Blister with darker center. Periwound is fluctuant with non-Blanchable erythema. DTPI R Heel (L)2.7cm x (W)4cm. Non-Blanchable erythema without induration/fluctuance R Hallux. Non-Blanchable erythema without induration/fluctuance L Hallux. Tx.Plan:Apply Cavilon Skin Barrier to both R and L ears.(Pad Oxygen Tubing as Needed.) Apply Moisture Barrier Paste to bilat groin and bilat ischial tuberosities with eqach Incontinence care. Apply Cavilon Skin Barrier to both heels. Cover each heel with Optifoam drsg. Change every 7 days and prn. Cleanse Sacral wound with Saline. Apply Therahoney. Apply Moisture Barrier Paste periwound. Cover with Optifoam drsg. Change every 3 days and prn. Apply Moisture Barrier Paste to Scrotum,R and L ischial tuberosities with each incontinence care. Apply Cavilon Skin Barrier to R and L Hallux. Cover each site with Optifoam drsgs. Change every 7 days and prn. Reposition at least every 2hours or as tolerated. Off-load heels with pillow. APM/ALEK Mattress overlay improving cont current care tube site okay DAILY ESTIMATED NEEDS: Needs based on Critical care, DM, Wound/ 62.73kg 22-30 kcals/kg 2810-0964 total kcals 1.25-2 g protein/kg 78-125 g total protein 25-30 mL/kg 2873-0701 total fluid mLs NUTRITION DIAGNOSIS: * Swallowing difficulty R/T dysphagia as evidenced by Pt is GT dep, currently orally intubated, off pressor support, on GT feeds. CURRENT TF:NPO ENTERAL NUTRITION RECOMMENDATIONS: Glucerna 1.2 @ 55ml/hr x 24 hrs to provide 1320ml, 1584kcal, 79g prot, 1063ml free water * Maintain current TF: meets 100 % est kcal/prot needs * HOB over 30 degrees * H2O flush of 180ml q 6hrs ADDITIONAL RECOMMENDATIONS: * Per SNF: HT=5'7" WT= 138lbs (as of Sep 13, 2020) * Monitor hemodynamic stability: NE @ 8mcg-> now off * Wound healing: TF rec @ goal provides 100% RDI add Vit C 500mg QD + Terrance BID via TF * Monitor lytes, replete as needed * Rec long acting insulin for improved BG control . (3) Dehydration (4) Hypernatremia (5) Clostridium difficile colitis (6) Staphylococcus aureus bacteremia (7) Hip fracture, left (8) Diabetes mellitus (9) History of hypertension (10) Severe protein-calorie malnutrition (11) Acute encephalopathy (12) Pressure Ulcer Of Sacral Region, Unstageable (13) Feeding by G-tube (14) Abdominal distention (15) Multiple drug resistant organism (MDRO) culture positive (16) Sepsis (17) History of CVA (cerebrovascular accident) (18) Parkinson disease James Breen Oct 09, 2020 18:19
[2020-10-10] VITALS (22 sets, daily range): BP systolic 96–148; BP diastolic 54–90
[2020-10-10] MEDS: NovoLOG Insulin Flexpen SUBQ SCH ×4 (00:52→17:10)
[2020-10-10] MEDS: Meropenem 1 GM in NS 55 ML IVPB SCH ×3 (02:23→17:09)
[2020-10-10] MEDS: Midodrine 10mg tab GT SCH ×3 (05:15→22:00)
[2020-10-10 06:48] LABS: BASOPHILS % (AUTO) 0.9 % (0.0-2.0); EOSINOPHILS % (AUTO) 2.1 % (0.0-3.0); HEMATOCRIT 30.6 % (42.0-52.0); LYMPHOCYTES % (AUTO) 36.9 % (20.0-45.0); MEAN CORPUSCULAR VOLUME 80 FL (80-99); NEUTROPHILS % (AUTO) 55.2 % (45.0-75.0); PLATELET COUNT 558 K/UL (150-450); RED BLOOD COUNT 3.84 M/UL (4.70-6.10); RED CELL DISTRIBUTION WIDTH 15.5 % (11.6-14.8); WHITE BLOOD COUNT 12.1 K/UL (4.8-10.8)
[2020-10-10 07:56] LABS: ALANINE AMINOTRANSFERASE 13 U/L (12-78); ALBUMIN 1.8 G/DL (3.4-5.0); ALBUMIN/GLOBULIN RATIO 0.3 (1.0-2.7); ALKALINE PHOSPHATASE 171 U/L (46-116); ANION GAP 6 mmol/L (5-15); ASPARTATE AMINO TRANSFERASE 19 U/L (15-37); BILIRUBIN,TOTAL 0.3 MG/DL (0.2-1.0); BLOOD UREA NITROGEN 9 mg/dL (7-18); CARBON DIOXIDE 27 MMOL/L (21-32); CHLORIDE 110 MMOL/L (98-107); CREATININE 1.2 MG/DL (0.55-1.30); PHOSPHORUS 2.5 MG/DL (2.5-4.9); POTASSIUM 3.5 MMOL/L (3.5-5.1); SODIUM 143 MMOL/L (136-145)
--- NOTE | 2020-10-10 08:32 | Infectious Diseases Prog Note ---
Assessment/Plan 80yo M with: Fevers Leukocytosis, improving Resp secretions Resp failure on vent 10/06 BCx NTD CXR: Improving bilateral interstitial and airspace opacities with mild persistent left lower lobe airspace disease. 10/08 Resp cx +GNR, speci/sensi p CONS bacteremia, recurrent 09/24 BCx 2/2 +CONS 09/25 BCx neg 09/28 BCx +CONS 09/30 BCx NTD Sepsis, septic shock GPC bacteremia UTI 2/2 ESBL P.mirabilis Pneumonia 2/2 ESBL P.mirabilis Febrile to 105, improving Leukocytosis to 15, improving 09/24 BCx 2/ CONS UA 20-30 WBC, UCx ESBL P.mirabilis COVID rapid test neg, PCR neg CXR: 1. Coarse bibasilar interstitial lung markings, may represent atypical infectious process such as viral pneumonia versus pulmonary edema. 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: No manager change 2 days 09/28 C.dif neg 09/28 BCx +GPCs (see above) Resp cx +ESBL P.mirabilis 09/29 COVID PCR neg 10/03 CXR: Slightly worsened bilateral basilar infiltrates, over one day Cr 2.0, improving Plan: Cont meropenem #10 (abx d #16) for ESBL P.mirabilis UTI/pna (can sometimes have increased MICs to erta, but S-audra) CT chest/abd/pelvis given going fevers despite broad abx - THIS IS MEDICALLY NECESSARY AND EMERGENT IN THIS CRITICALLY ILL PATIENT IN THE ICU, SEDATED ON VENT. I CONSENT TO HAVE PT GO TO CT SCAN AND RECEIVE IV CONTRAST F/u Resp cx 10/08 +GNRs Trend WBC Trend Cr 10/07 SP vanco IV #7 empiric 10/01 SP erta #6 09/25 SP amikacin and vanco x1 Monitor CBC/CMP Monitor temp curve, hemodynamics Monitor resp status D/w RN Thank you for this consult. [facility] will continue to follow. Subjective Allergies: Coded Allergies: No Known Allergies (Unverified , 08/27/19) AF WBC 12, overall stable Resp cx +GNR Despite my consent for CT scan - STILL NOT DONE Sedated on vent Plan for CT around 10am today Objective Last 24 Hour Vital Signs Date Time Temp Pulse Resp B/P (MAP) Pulse Ox O2 Delivery O2 Flow Rate FiO2 10/10/20 08:00 40 10/10/20 08:00 98.7 97 16 148/86 (106) 100 10/10/20 08:00 Mechanical Ventilator 10/10/20 07:00 104 20 135/69 (91) 100 10/10/20 06:00 101 18 141/76 (97) 100 10/10/20 05:00 102 18 137/65 (89) 100 10/10/20 04:00 40 10/10/20 04:00 Mechanical Ventilator 10/10/20 04:00 98.0 97 17 139/76 (97) 100 10/10/20 03:30 99 18 40 10/10/20 03:00 87 23 132/64 (86) 100 10/10/20 02:58 89 10/10/20 02:00 11 129/74 (92) 100 10/10/20 01:00 83 13 121/73 (89) 100 10/10/20 00:00 Mechanical Ventilator 10/10/20 00:00 98.4 81 12 121/70 (87) 100 10/10/20 00:00 40 10/09/20 23:23 88 10/09/20 23:00 82 16 121/68 (85) 100 10/09/20 22:45 86 18 40 10/09/20 22:00 85 16 106/68 (81) 100 10/09/20 21:00 98.5 80 16 106/58 (74) 100 10/09/20 20:00 40 10/09/20 20:00 81 16 107/66 (80) 100 10/09/20 20:00 Mechanical Ventilator 10/09/20 19:51 73 10/09/20 19:30 81 16 40 10/09/20 19:00 80 16 110/56 (74) 100 10/09/20 18:10 40 10/09/20 18:00 79 16 103/58 (73) 100 10/09/20 17:00 72 18 105/93 (97) 100 10/09/20 16:00 40 10/09/20 16:00 79 10/09/20 16:00 Mechanical Ventilator 10/09/20 16:00 98.6 71 19 112/54 (73) 100 10/09/20 15:45 100 10/09/20 15:45 80 18 40 40 10/09/20 15:00 78 16 112/62 (79) 100 10/09/20 15:00 80 16 40 10/09/20 14:00 85 16 125/70 (88) 100 10/09/20 13:00 98.6 98 16 114/59 (77) 100 10/09/20 12:47 98.6 10/09/20 12:00 Mechanical Ventilator 10/09/20 12:00 85 10/09/20 12:00 40 10/09/20 12:00 100.5 90 16 114/66 (82) 100 10/09/20 11:00 86 16 40 10/09/20 11:00 81 16 112/54 (73) 100 10/09/20 10:00 93 16 114/51 (72) 100 10/09/20 09:00 76 16 103/53 (70) 100 Height (Feet): 5 Height (Inches): 10.00 Weight (Pounds): 180 Gen: NAD HEENT: NCAT Pulm: BL chest rise Abd: Non-distended Ext: No c/c/e Skin: No visible rashes Neuro: Awake Lines: R fem CVC Microbiology Date/Time Source Procedure Growth Status 10/08/20 15:30 Sputum Gram Stain - Final Resulted 10/08/20 15:30 Sputum Culture - Preliminary Gram Negative Bacillus 1 Resulted Laboratory Tests Test 10/09/20 12:17 10/09/20 18:26 10/10/20 05:35 POC Whole Blood Glucose 167 MG/DL (74-106) H 231 MG/DL (74-106) H White Blood Count 12.1 K/UL (4.8-10.8) H Red Blood Count 3.84 M/UL (4.70-6.10) L Hemoglobin 10.0 G/DL (14.2-18.0) L Hematocrit 30.6 % (42.0-52.0) L Mean Corpuscular Volume 80 FL (80-99) Mean Corpuscular Hemoglobin 26.1 PG (27.0-31.0) L Mean Corpuscular Hemoglobin Concent 32.8 G/DL (32.0-36.0) Red Cell Distribution Width 15.5 % (11.6-14.8) H Platelet Count 558 K/UL (150-450) H Mean Platelet Volume 9.5 FL (6.5-10.1) Neutrophils (%) (Auto) 55.2 % (45.0-75.0) Lymphocytes (%) (Auto) 36.9 % (20.0-45.0) Monocytes (%) (Auto) 5.0 % (1.0-10.0) Eosinophils (%) (Auto) 2.1 % (0.0-3.0) Basophils (%) (Auto) 0.9 % (0.0-2.0) Sodium Level 143 MMOL/L (136-145) # Potassium Level 3.5 MMOL/L (3.5-5.1) Chloride Level 110 MMOL/L (98-107) H Carbon Dioxide Level 27 MMOL/L (21-32) Anion Gap 6 mmol/L (5-15) Blood Urea Nitrogen 9 mg/dL (7-18) Creatinine 1.2 MG/DL (0.55-1.30) Estimat Glomerular Filtration Rate > 60 mL/min (>60) Glucose Level 202 MG/DL (74-106) H Calcium Level 9.0 MG/DL (8.5-10.1) Phosphorus Level 2.5 MG/DL (2.5-4.9) Magnesium Level 2.0 MG/DL (1.8-2.4) Total Bilirubin 0.3 MG/DL (0.2-1.0) Aspartate Amino Transf (AST/SGOT) 19 U/L (15-37) Alanine Aminotransferase (ALT/SGPT) 13 U/L (12-78) Alkaline Phosphatase 171 U/L (46-116) H C-Reactive Protein, Quantitative 13.0 mg/dL (0.00-0.90) H Pro-B-Type Natriuretic Peptide 322 pg/mL (0-125) H Total Protein 8.1 G/DL (6.4-8.2) Albumin 1.8 G/DL (3.4-5.0) L Globulin 6.3 g/dL Albumin/Globulin Ratio 0.3 (1.0-2.7) L Current Medications Medications (Trade) Dose Ordered Sig/Debi Route PRN Reason Start Time Stop Time Status Last Admin Dose Admin Acetaminophen (Tylenol) 650 mg Q4H PRN GT FEVER 10/03/20 01:15 11/02/20 01:14 10/09/20 12:17 Ascorbic Acid (Vitamin C) 250 mg TWICE A DAY GT 10/03/20 18:00 11/02/20 17:59 10/09/20 18:02 Dextrose 1,000 ml @ 100 mls/hr Q10H IV 10/09/20 09:15 11/08/20 09:14 10/10/20 04:58 Dextrose (Dextrose 50%) 25 ml Q30M PRN IV Hypoglycemia 09/25/20 15:30 12/24/20 15:29 Dextrose (Dextrose 50%) 50 ml Q30M PRN IV Hypoglycemia 09/25/20 15:30 12/24/20 15:29 Heparin Sodium (Porcine) (Heparin 5000 units/ml) 5,000 units EVERY 12 HOURS SUBQ 09/25/20 09:00 11/09/20 08:59 10/09/20 20:32 Insulin Aspart (NovoLOG) Q6HR SUBQ 10/04/20 00:00 01/02/21 00:00 10/10/20 00:52 Meropenem 1 gm/ Sodium Chloride 55 ml @ 110 mls/hr Q8H IVPB 10/05/20 18:00 10/11/20 17:59 10/10/20 02:23 Midodrine (Pro-Amatine) 10 mg Q8HR GT 09/30/20 14:00 12/29/20 13:59 10/10/20 05:15 Ondansetron HCl (Zofran) 4 mg Q6H PRN IVP Nausea & Vomiting 09/25/20 00:15 10/25/20 00:14 Pantoprazole (Protonix) 40 mg Q12HR IVP 09/25/20 21:00 10/25/20 08:59 10/09/20 20:31 Polyethylene Glycol (Miralax) 17 gm DAILYPRN PRN ORAL Constipation 09/25/20 00:15 10/25/20 00:14 Marixa Oliva M.D. Oct 10, 2020 08:32
[2020-10-10] MEDS: Pantoprazole Inj IVP SCH ×2 (09:16→20:00)
[2020-10-10] MEDS: Ascorbic Acid 500mg tab GT SCH ×2 (09:16→17:09)
[2020-10-10] MEDS: Heparin 5000 units/ml inj SUBQ SCH ×2 (09:17→20:01)
--- NOTE | 2020-10-10 10:31 | Nephrology Progress Note ---
Assessment/Plan Problem List: (1) KELLY (acute kidney injury) (2) Dehydration (3) Hypernatremia (4) Severe sepsis (5) History of CVA (cerebrovascular accident) (6) Parkinson disease (7) Acute respiratory failure (8) Elevated lipase Assessment KELLY, Hypernatremia, dehydration, free water deficit Sepsis Acute respiratory failure requiring intubation and mechanical ventilation Diabetes mellitus [id number] GT feeding History of CVA History of hypertension Parkinson's disease Elevated lipase Plan October 10: Labs reviewed. Renal parameters stable. Continue per consultants. Continue to monitor renal parameters. October 09: Labs reviewed. K-Phos and 1 L D5W ordered. Continue per consultants. Continue to monitor electrolytes and renal parameters. October 08: No CHEM panel drawn today. Will check lab tomorrow. Continue per consultants. October 07: Labs reviewed. Abnormal electrolytes addressed. Bolus of 500 cc D5W for elevated serum sodium given. Continue to monitor electrolytes and renal parameters. October 06: Labs reviewed. K-Phos replaced. Will give another liter of D5W. Continue to monitor electrolytes and renal parameters. October 05: Labs reviewed. Serum sodium rising. 1 L D5W IV ordered. Continue to monitor electrolytes. Continue per consultants. October 04: No CHEM panel was done today. Patient remain intubated on ventilator and full code. We will order labs tomorrow. Continue per consultants. October 03: Discussed with RN. Labs are reviewed. Potassium and phosphate replacement ordered. Continue per consultants. Patient remains full code intubated on ventilator. Serum creatinine up to 1.5. Continue to monitor renal parameters. October 02: Remains in ICU and intubated. Labs reviewed. Serum creatinine 1.3. Serum sodium slightly elevated. Continue to monitor renal parameters and electrolytes. October 01: Seen in ICU. Discussed with RN. No chemistry panel done today. Blood pressure hovering around 100 systolic. Will check labs tomorrow. Continue per consultants. September 30: Labs reviewed. Renal parameters stable. Blood pressure hovering around 90s systolic. We will add midodrine through GT tube. Continue per consultants. September 29: Labs reviewed. Serum creatinine down to 1.3 and electrolytes reviewed. Abnormal electrolytes addressed. Continue per consultants. September 28: Labs reviewed. Creatinine 1.6 unchanged. Hypernatremia persists. Will give 1 L of D5W. Continue to monitor renal parameters and electrolytes. Continue per consultants. September 27: Labs reviewed. Serum sodium lowering. Serum creatinine lowering. Blood sugar somewhat better controlled. Patient continues to be on free water through tube feeding. Continue to monitor renal parameters and electrolytes. Abnormal electrolytes addressed. September 26: IV fluids stopped. Patient receiving free water reviewed NG tube. Patient full code. Intubated on ventilator. Discussed with JOHNNY Christensen. Continue to monitor renal parameters. Serum creatinine lower but abnormal electrolyte persists and was addressed. Previously: IV fluid half-normal saline 125 cc an hour Albumin fluid challenge Monitor electrolytes Monitor renal parameters Hold blood pressure medication since blood pressure low Per orders, per consultants Subjective ROS Limited/Unobtainable: Yes Objective Objective Last 24 Hour Vital Signs Date Time Temp Pulse Resp B/P (MAP) Pulse Ox O2 Delivery O2 Flow Rate FiO2 10/10/20 09:32 100 10/10/20 08:00 40 10/10/20 08:00 98.7 97 16 148/86 (106) 100 10/10/20 08:00 Mechanical Ventilator 10/10/20 07:24 104 21 40 10/10/20 07:00 104 20 135/69 (91) 100 10/10/20 06:00 101 18 141/76 (97) 100 10/10/20 05:00 102 18 137/65 (89) 100 10/10/20 04:00 40 10/10/20 04:00 Mechanical Ventilator 10/10/20 04:00 98.0 97 17 139/76 (97) 100 10/10/20 03:30 99 18 40 10/10/20 03:00 87 23 132/64 (86) 100 10/10/20 02:58 89 10/10/20 02:00 11 129/74 (92) 100 10/10/20 01:00 83 13 121/73 (89) 100 10/10/20 00:00 Mechanical Ventilator 10/10/20 00:00 98.4 81 12 121/70 (87) 100 10/10/20 00:00 40 10/09/20 23:23 88 10/09/20 23:00 82 16 121/68 (85) 100 10/09/20 22:45 86 18 40 10/09/20 22:00 85 16 106/68 (81) 100 10/09/20 21:00 98.5 80 16 106/58 (74) 100 10/09/20 20:00 40 10/09/20 20:00 81 16 107/66 (80) 100 10/09/20 20:00 Mechanical Ventilator 10/09/20 19:51 73 10/09/20 19:30 81 16 40 10/09/20 19:00 80 16 110/56 (74) 100 10/09/20 18:10 40 10/09/20 18:00 79 16 103/58 (73) 100 10/09/20 17:00 72 18 105/93 (97) 100 10/09/20 16:00 40 10/09/20 16:00 79 10/09/20 16:00 Mechanical Ventilator 10/09/20 16:00 98.6 71 19 112/54 (73) 100 10/09/20 15:45 100 10/09/20 15:45 80 18 40 40 10/09/20 15:00 78 16 112/62 (79) 100 10/09/20 15:00 80 16 40 10/09/20 14:00 85 16 125/70 (88) 100 10/09/20 13:00 98.6 98 16 114/59 (77) 100 10/09/20 12:47 98.6 10/09/20 12:00 Mechanical Ventilator 10/09/20 12:00 85 10/09/20 12:00 40 10/09/20 12:00 100.5 90 16 114/66 (82) 100 10/09/20 11:00 86 16 40 10/09/20 11:00 81 16 112/54 (73) 100 Intake and Output 10/09/20 10/10/20 19:00 07:00 Intake Total 955 ml 1315 ml Output Total 1050 ml 1180 ml Balance -95 ml 135 ml IV Total 955 ml 1255 ml Tube Feeding 0 ml 60 ml Output Urine Total 1050 ml 1180 ml # Bowel Movements 2 Laboratory Tests 10/09/20 12:17: POC Whole Blood Glucose 167H 10/09/20 18:26: POC Whole Blood Glucose 231H 10/10/20 05:35: White Blood Count 12.1H, Red Blood Count 3.84L, Hemoglobin 10.0L, Hematocrit 30.6L, Mean Corpuscular Volume 80, Mean Corpuscular Hemoglobin 26.1L, Mean Corpuscular Hemoglobin Concent 32.8, Red Cell Distribution Width 15.5H, Platelet Count 558H, Mean Platelet Volume 9.5, Neutrophils (%) (Auto) 55.2, Lymphocytes (%) (Auto) 36.9, Monocytes (%) (Auto) 5.0, Eosinophils (%) (Auto) 2.1, Basophils (%) (Auto) 0.9, Sodium Level 143#, Potassium Level 3.5, Chloride Level 110H, Carbon Dioxide Level 27, Anion Gap 6, Blood Urea Nitrogen 9, Creatinine 1.2, Estimat Glomerular Filtration Rate > 60, Glucose Level 202H, Calcium Level 9.0, Phosphorus Level 2.5, Magnesium Level 2.0, Total Bilirubin 0.3, Aspartate Amino Transf (AST/SGOT) 19, Alanine Aminotransferase (ALT/SGPT) 13, Alkaline P hosphatase 171H, C-Reactive Protein, Quantitative 13.0H, Pro-B-Type Natriuretic Peptide 322H, Total Protein 8.1, Albumin 1.8L, Globulin 6.3, Albumin/Globulin Ratio 0.3L Height (Feet): 5 Height (Inches): 10.00 Weight (Pounds): 180 General Appearance: no apparent distress EENT: other - Intubated on ventilator Cardiovascular: tachycardia Respiratory/Chest: decreased breath sounds Abdomen: distended Eddie Nelson MD Oct 10, 2020 10:31
--- NOTE | 2020-10-10 11:02 | Pulmonolgy Critical Care Note ---
Critical Care - Asmt/Plan Problems: (1) Acute respiratory failure (2) Severe sepsis (3) Diabetes mellitus (4) Severe protein-calorie malnutrition (5) History of hypertension (6) History of CVA (cerebrovascular accident) (7) Parkinson disease (8) Feeding by G-tube Respiratory: monitor respiratory rate, adjust FIO2 Cardiac: continue to monitor HR/BP Renal: F/U I&O, check electrolytes Infectious Disease: check cultures, continue antibiotics Gastrointestinal: continue feedings/current rate Endocrine: monitor blood sugar, check TSH Hematologic: monitor H/H Neurologic: PRN Ativan, PRN Morphine, keep patient comfortable Affect: PRN ativan Disposition: keep in ICU Time Spent (Minutes): 40 Notes 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, 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, 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 Discussed with: nurses, 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, 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 - Objective Last 24 Hour Vital Signs Date Time Temp Pulse Resp B/P (MAP) Pulse Ox O2 Delivery O2 Flow Rate FiO2 10/10/20 09:32 100 10/10/20 08:00 40 10/10/20 08:00 98.7 97 16 148/86 (106) 100 10/10/20 08:00 Mechanical Ventilator 10/10/20 07:24 104 21 40 10/10/20 07:00 104 20 135/69 (91) 100 10/10/20 06:00 101 18 141/76 (97) 100 10/10/20 05:00 102 18 137/65 (89) 100 10/10/20 04:00 40 10/10/20 04:00 Mechanical Ventilator 10/10/20 04:00 98.0 97 17 139/76 (97) 100 10/10/20 03:30 99 18 40 10/10/20 03:00 87 23 132/64 (86) 100 10/10/20 02:58 89 10/10/20 02:00 11 129/74 (92) 100 10/10/20 01:00 83 13 121/73 (89) 100 10/10/20 00:00 Mechanical Ventilator 10/10/20 00:00 98.4 81 12 121/70 (87) 100 10/10/20 00:00 40 10/09/20 23:23 88 10/09/20 23:00 82 16 121/68 (85) 100 10/09/20 22:45 86 18 40 10/09/20 22:00 85 16 106/68 (81) 100 10/09/20 21:00 98.5 80 16 106/58 (74) 100 10/09/20 20:00 40 10/09/20 20:00 81 16 107/66 (80) 100 10/09/20 20:00 Mechanical Ventilator 10/09/20 19:51 73 10/09/20 19:30 81 16 40 10/09/20 19:00 80 16 110/56 (74) 100 10/09/20 18:10 40 10/09/20 18:00 79 16 103/58 (73) 100 10/09/20 17:00 72 18 105/93 (97) 100 10/09/20 16:00 40 10/09/20 16:00 79 10/09/20 16:00 Mechanical Ventilator 10/09/20 16:00 98.6 71 19 112/54 (73) 100 10/09/20 15:45 100 10/09/20 15:45 80 18 40 40 10/09/20 15:00 78 16 112/62 (79) 100 10/09/20 15:00 80 16 40 10/09/20 14:00 85 16 125/70 (88) 100 10/09/20 13:00 98.6 98 16 114/59 (77) 100 10/09/20 12:47 98.6 10/09/20 12:00 Mechanical Ventilator 10/09/20 12:00 85 10/09/20 12:00 40 10/09/20 12:00 100.5 90 16 114/66 (82) 100 10/09/20 11:00 86 16 40 10/09/20 11:00 81 16 112/54 (73) 100 Status: sedated Condition: critical HEENT: atraumatic, normocephalic Neck: full ROM Lungs: clear, chest wall tender Heart: HR/BP stable Abdomen: soft, active bowel sounds, feeding tube Extremities: no C/C/E Micro: Microbiology Date/Time Source Procedure Growth Status 10/08/20 15:30 Sputum Gram Stain - Final Resulted 10/08/20 15:30 Sputum Culture - Preliminary Gram Negative Bacillus 1 Resulted Accucheck: 172 Critical Care - Subjective ROS Limited/Unobtainable: Yes FI02: 40 Vent Support Breath Rate: 16 Vent Support Mode: AC Vent Tidal Volume: 600 Sputum Amount: Small PEEP: 0.0 PIP: 24 Tube Feeding Amount: 20 I&O: Intake and Output 10/09/20 10/10/20 19:00 07:00 Intake Total 955 ml 1315 ml Output Total 1050 ml 1180 ml Balance -95 ml 135 ml IV Total 955 ml 1255 ml Tube Feeding 0 ml 60 ml Output Urine Total 1050 ml 1180 ml # Bowel Movements 2 CXR: no changes ET-Tube: 7.0 ET Position: 23 Labs: Laboratory Tests Test 10/09/20 12:17 10/09/20 18:26 10/10/20 05:35 POC Whole Blood Glucose 167 MG/DL (74-106) H 231 MG/DL (74-106) H White Blood Count 12.1 K/UL (4.8-10.8) H Red Blood Count 3.84 M/UL (4.70-6.10) L Hemoglobin 10.0 G/DL (14.2-18.0) L Hematocrit 30.6 % (42.0-52.0) L Mean Corpuscular Volume 80 FL (80-99) Mean Corpuscular Hemoglobin 26.1 PG (27.0-31.0) L Mean Corpuscular Hemoglobin Concent 32.8 G/DL (32.0-36.0) Red Cell Distribution Width 15.5 % (11.6-14.8) H Platelet Count 558 K/UL (150-450) H Mean Platelet Volume 9.5 FL (6.5-10.1) Neutrophils (%) (Auto) 55.2 % (45.0-75.0) Lymphocytes (%) (Auto) 36.9 % (20.0-45.0) Monocytes (%) (Auto) 5.0 % (1.0-10.0) Eosinophils (%) (Auto) 2.1 % (0.0-3.0) Basophils (%) (Auto) 0.9 % (0.0-2.0) Sodium Level 143 MMOL/L (136-145) # Potassium Level 3.5 MMOL/L (3.5-5.1) Chloride Level 110 MMOL/L (98-107) H Carbon Dioxide Level 27 MMOL/L (21-32) Anion Gap 6 mmol/L (5-15) Blood Urea Nitrogen 9 mg/dL (7-18) Creatinine 1.2 MG/DL (0.55-1.30) Estimat Glomerular Filtration Rate > 60 mL/min (>60) Glucose Level 202 MG/DL (74-106) H Calcium Level 9.0 MG/DL (8.5-10.1) Phosphorus Level 2.5 MG/DL (2.5-4.9) Magnesium Level 2.0 MG/DL (1.8-2.4) Total Bilirubin 0.3 MG/DL (0.2-1.0) Aspartate Amino Transf (AST/SGOT) 19 U/L (15-37) Alanine Aminotransferase (ALT/SGPT) 13 U/L (12-78) Alkaline Phosphatase 171 U/L (46-116) H C-Reactive Protein, Quantitative 13.0 mg/dL (0.00-0.90) H Pro-B-Type Natriuretic Peptide 322 pg/mL (0-125) H Total Protein 8.1 G/DL (6.4-8.2) Albumin 1.8 G/DL (3.4-5.0) L Globulin 6.3 g/dL Albumin/Globulin Ratio 0.3 (1.0-2.7) L Latanya Mckeon MD Oct 10, 2020 11:02
--- NOTE | 2020-10-10 11:46 | Diagnostic Imaging Report ---
CLINICAL INDICATION:Chest pain, infection, fevers, leukocytosis, respiratory failure on ventilator, urinary tract infection TECHNIQUE: Patient ingested oral contrast . IV administration nonionic contrast. Multiphasic spiral acquisitions obtained through the chest, abdomen, and pelvis. Multiplanar reconstructions were generated. Total dose length product 699 mGycm. CTDIvol(s) 4, 44, 6, 6 mGy. Radiation dose was minimized using automated exposure control COMPARISON: 06/29/2020 FINDINGS Chest: Dense consolidation is seen posteriorly in both lower lobes. More ill-defined reticular opacities are seen in the superior lower lobes bilaterally and in the inferior right upper lobe. No effusions. Normal heart size. No pericardial effusion. No mediastinal or hilar mass or adenopathy. Patient is intubated, endotracheal tube tip in good position in the mid trachea. Normal caliber thoracic aorta and pulmonary arteries. Unremarkable thyroid. No axillary or chest wall mass or adenopathy is demonstrated. Unremarkable esophagus Abdomen pelvis: Gastrostomy is again demonstrated in good position. Stomach and duodenum are otherwise unremarkable. The appendix is normal. Stool filled distal colon. Previously demonstrated colon wall thickening and pericolonic inflammation are not evident currently. No diverticulosis or diverticulitis. No small bowel distention or small bowel wall thickening. No free or loculated intraperitoneal gas or fluid is evident. The liver, gallbladder, bile ducts, pancreas, spleen, adrenals are unremarkable. 15 by 8mm calculus is again demonstrated in the left upper pole collecting system. There are bilateral renal cysts again demonstrated. Again demonstrated is somewhat heterogeneous perfusion of the left kidney, appearing similar to the previous exam. The bladder is empty, contains a Adams catheter. The prostate is markedly enlarged. A small catheter is seen within the anus. The bones demonstrate extensive new bone formation in the right hip region posteriorly. There is also some new bone formation, less extensive, in the left hip region. This is unchanged. There are degenerative changes of the spine again noted. IMPRESSION: Bilateral dense lower lobe consolidation, presumably representing pneumonia, nonspecific as regards appearance. More ill-defined reticular upper lobe opacities are probably related. Satisfactory endotracheal intubation Somewhat heterogeneous perfusion of the left kidney. This could indicate nephritis, although appearance is somewhat similar to the previous exam and this could just be baseline appearance for this patient. Correlate with clinical findings New bone formation of the bilateral hips, also previously demonstrated, probably related to immobility and contractures Stool-filled distal colon, constipation possible. Previously demonstrated colitis has resolved Large nonobstructive left upper pole intrarenal calculus, also previously demonstrated Prostatomegaly Other findings as noted, including degenerative spondylosis, Adams catheter, anal catheter, bilateral renal cysts, gastrostomy The CT scanner at [facility] is accredited by the [employer] and the scans are performed using protocols designed to limit radiation exposure to as low as reasonably achievable to attain images of sufficient resolution adequate for diagnostic evaluation.
--- NOTE | 2020-10-10 16:05 | Internal Med Progress Note ---
Subjective Physician Name Cirilo Rome Attending Physician Cirilo Rome MD Current Medications Medications (Trade) Dose Ordered Sig/Debi Route PRN Reason Start Time Stop Time Status Last Admin Dose Admin Acetaminophen (Tylenol) 650 mg Q4H PRN GT FEVER 10/03/20 01:15 11/02/20 01:14 10/09/20 12:17 Ascorbic Acid (Vitamin C) 250 mg TWICE A DAY GT 10/03/20 18:00 11/02/20 17:59 10/10/20 09:16 Dextrose (Dextrose 50%) 25 ml Q30M PRN IV Hypoglycemia 09/25/20 15:30 12/24/20 15:29 Dextrose (Dextrose 50%) 50 ml Q30M PRN IV Hypoglycemia 09/25/20 15:30 12/24/20 15:29 Heparin Sodium (Porcine) (Heparin 5000 units/ml) 5,000 units EVERY 12 HOURS SUBQ 09/25/20 09:00 11/09/20 08:59 10/10/20 09:17 Insulin Aspart (NovoLOG) Q6HR SUBQ 10/04/20 00:00 01/02/21 00:00 10/10/20 12:35 Meropenem 1 gm/ Sodium Chloride 55 ml @ 110 mls/hr Q8H IVPB 10/05/20 18:00 10/12/20 17:59 10/10/20 11:12 Midodrine (Pro-Amatine) 10 mg Q8HR GT 09/30/20 14:00 12/29/20 13:59 10/10/20 13:18 Ondansetron HCl (Zofran) 4 mg Q6H PRN IVP Nausea & Vomiting 09/25/20 00:15 10/25/20 00:14 Pantoprazole (Protonix) 40 mg Q12HR IVP 09/25/20 21:00 10/25/20 08:59 10/10/20 09:16 Polyethylene Glycol (Miralax) 17 gm DAILYPRN PRN ORAL Constipation 09/25/20 00:15 10/25/20 00:14 Allergies: Coded Allergies: No Known Allergies (Unverified , 08/27/19) Subjective in ICU, intubated, remained on ventilation, open his eyes, responsive, interactive, WBC: 12.1. Objective Last Vital Signs Date Time Temp Pulse Resp B/P (MAP) Pulse Ox O2 Delivery O2 Flow Rate FiO2 10/10/20 16:00 40 10/10/20 15:00 123 26 130/58 (82) 95 10/10/20 13:49 Endotrachael Tube 10/10/20 12:00 99.0 Laboratory Tests Test 10/09/20 18:26 10/10/20 05:35 POC Whole Blood Glucose 231 MG/DL (74-106) H White Blood Count 12.1 K/UL (4.8-10.8) H Red Blood Count 3.84 M/UL (4.70-6.10) L Hemoglobin 10.0 G/DL (14.2-18.0) L Hematocrit 30.6 % (42.0-52.0) L Mean Corpuscular Volume 80 FL (80-99) Mean Corpuscular Hemoglobin 26.1 PG (27.0-31.0) L Mean Corpuscular Hemoglobin Concent 32.8 G/DL (32.0-36.0) Red Cell Distribution Width 15.5 % (11.6-14.8) H Platelet Count 558 K/UL (150-450) H Mean Platelet Volume 9.5 FL (6.5-10.1) Neutrophils (%) (Auto) 55.2 % (45.0-75.0) Lymphocytes (%) (Auto) 36.9 % (20.0-45.0) Monocytes (%) (Auto) 5.0 % (1.0-10.0) Eosinophils (%) (Auto) 2.1 % (0.0-3.0) Basophils (%) (Auto) 0.9 % (0.0-2.0) Sodium Level 143 MMOL/L (136-145) # Potassium Level 3.5 MMOL/L (3.5-5.1) Chloride Level 110 MMOL/L (98-107) H Carbon Dioxide Level 27 MMOL/L (21-32) Anion Gap 6 mmol/L (5-15) Blood Urea Nitrogen 9 mg/dL (7-18) Creatinine 1.2 MG/DL (0.55-1.30) Estimat Glomerular Filtration Rate > 60 mL/min (>60) Glucose Level 202 MG/DL (74-106) H Calcium Level 9.0 MG/DL (8.5-10.1) Phosphorus Level 2.5 MG/DL (2.5-4.9) Magnesium Level 2.0 MG/DL (1.8-2.4) Total Bilirubin 0.3 MG/DL (0.2-1.0) Aspartate Amino Transf (AST/SGOT) 19 U/L (15-37) Alanine Aminotransferase (ALT/SGPT) 13 U/L (12-78) Alkaline Phosphatase 171 U/L (46-116) H C-Reactive Protein, Quantitative 13.0 mg/dL (0.00-0.90) H Pro-B-Type Natriuretic Peptide 322 pg/mL (0-125) H Total Protein 8.1 G/DL (6.4-8.2) Albumin 1.8 G/DL (3.4-5.0) L Globulin 6.3 g/dL Albumin/Globulin Ratio 0.3 (1.0-2.7) L Microbiology Date/Time Source Procedure Growth Status 10/08/20 15:30 Sputum Gram Stain - Final Resulted 10/08/20 15:30 Sputum Culture - Preliminary Gram Negative Bacillus 1 Resulted Intake and Output 10/09/20 10/10/20 19:00 07:00 Intake Total 955 ml 1315 ml Output Total 1050 ml 1180 ml Balance -95 ml 135 ml IV Total 955 ml 1255 ml Tube Feeding 0 ml 60 ml Output Urine Total 1050 ml 1180 ml # Bowel Movements 2 Objective PHYSICAL EXAMINATION: GENERAL: intubated, open his eyes, await, responsive, HEENT: Eyes, pupils are equal responsive to light and accommodation. ET tube. NECK: Supple No JVD CHEST: mechanical breath sound, decreased air at bases, no wheezes. CARDIOVASCULAR: Regular rate. S1 and S2 normal without murmurs, ABDOMEN: Soft, nontender, and nondistended. Positive bowel sounds. PEG site intact. EXTREMITIES: Negative for clubbing, cyanosis, +1 LE's UE edema. NEUROLOGIC: limited secondary to patient's status, unable to move extremities. Assessment/Plan Assessment/Plan ASSESSMENT: This is a 80-year-old male. 1. Acute hypoxemic Respiratory failure. 2. Bilateral pneumonia. 3. Hypertension. 4. Diabetes type 2. 5. Hypercholesterolemia. 6. Parkinson disease. 7. COVID-19 negative. 8. Ulcerative proctitis. 9. Benign prostatic hypertrophy. 10. Gastroesophageal reflux disease. 11. Urinary tract infection=proteus mirabilis 12. Sepsis=coag neg staph TREATMENT: 1. Pneumonia/respiratory failure. Infectious diseases = Drs. Harris/Pj. A Pulmonary/Critical care= Dr. Latanya Mckeon. The patient is currently intubated on the mechanical ventilator in the intensive care unit. 2. Urinary tract infection. ABX= Ertapenem. 3. Hypertension. The patient is currently hypotensive. 4. Diabetes type 2. NovoLog sliding scale has been instituted. 5. Hypercholesterolemia. Continue simvastatin as above. 6. Parkinson disease. 7. Ulcerative proctitis. 8. Benign prostatic hypertrophy. 9. Gastroesophageal reflux disease. 10. Dysphagia. tolerated tube feeding CODE STATUS: Full code weaning trial. CT abdomen and Pelvic: (10/10/2020) IMPRESSION: Bilateral dense lower lobe consolidation, presumably representing pneumonia, nonspecific as regards appearance. More ill-defined reticular upper lobe opacities are probably related. Satisfactory endotracheal intubation Somewhat heterogeneous perfusion of the left kidney. This could indicate nephritis, although appearance is somewhat similar to the previous exam and this could just be baseline appearance for this patient. Correlate with clinical findings New bone formation of the bilateral hips, also previously demonstrated, probably related to immobility and contractures Stool-filled distal colon, constipation possible. Previously demonstrated colitis has resolved Large nonobstructive left upper pole intrarenal calculus, also previously demonstrated Prostatomegaly Other findings as noted, including degenerative spondylosis, Adams catheter, anal catheter, bilateral renal cysts, gastrostomy Cirilo Rome MD Oct 10, 2020 16:05
--- NOTE | 2020-10-10 17:47 | Surgery Progress Note ---
Surgery Progress Note Subjective Additional Comments ill appearing no n/v ? trach Objective Last 24 Hour Vital Signs Date Time Temp Pulse Resp B/P (MAP) Pulse Ox O2 Delivery O2 Flow Rate FiO2 10/10/20 17:00 116 27 124/58 (80) 100 10/10/20 16:00 98.4 114 25 131/54 (79) 100 10/10/20 16:00 40 10/10/20 16:00 Mechanical Ventilator 10/10/20 16:00 117 10/10/20 15:28 116 24 40 10/10/20 15:00 123 26 130/58 (82) 95 10/10/20 14:00 125 18 128/65 (86) 100 10/10/20 13:49 128 20 100 Endotrachael Tube 40 10/10/20 13:00 112 18 96/74 (81) 100 10/10/20 12:00 40 10/10/20 12:00 99.0 116 18 127/88 (101) 100 10/10/20 12:00 Mechanical Ventilator 10/10/20 12:00 116 10/10/20 11:27 120 20 40 10/10/20 11:00 123 39 88 10/10/20 10:00 116 20 100 10/10/20 09:32 100 10/10/20 09:00 117 21 129/72 (91) 100 10/10/20 08:00 136 10/10/20 08:00 40 10/10/20 08:00 98.7 97 16 148/86 (106) 100 10/10/20 08:00 Mechanical Ventilator 10/10/20 07:24 104 21 40 10/10/20 07:00 104 20 135/69 (91) 100 10/10/20 06:00 101 18 141/76 (97) 100 10/10/20 05:00 102 18 137/65 (89) 100 10/10/20 04:00 40 10/10/20 04:00 Mechanical Ventilator 10/10/20 04:00 98.0 97 17 139/76 (97) 100 10/10/20 03:30 99 18 40 10/10/20 03:00 87 23 132/64 (86) 100 10/10/20 02:58 89 10/10/20 02:00 11 129/74 (92) 100 10/10/20 01:00 83 13 121/73 (89) 100 10/10/20 00:00 Mechanical Ventilator 10/10/20 00:00 98.4 81 12 121/70 (87) 100 10/10/20 00:00 40 10/09/20 23:23 88 10/09/20 23:00 82 16 121/68 (85) 100 10/09/20 22:45 86 18 40 10/09/20 22:00 85 16 106/68 (81) 100 10/09/20 21:00 98.5 80 16 106/58 (74) 100 10/09/20 20:00 40 10/09/20 20:00 81 16 107/66 (80) 100 10/09/20 20:00 Mechanical Ventilator 10/09/20 19:51 73 10/09/20 19:30 81 16 40 10/09/20 19:00 80 16 110/56 (74) 100 10/09/20 18:10 40 10/09/20 18:00 79 16 103/58 (73) 100 I&O Intake and Output 10/09/20 10/10/20 19:00 07:00 Intake Total 955 ml 1315 ml Output Total 1050 ml 1180 ml Balance -95 ml 135 ml IV Total 955 ml 1255 ml Tube Feeding 0 ml 60 ml Output Urine Total 1050 ml 1180 ml # Bowel Movements 2 Dressing: saturated Cardiovascular: RSR Respiratory: decreased breath sounds Abdomen: soft, non-tender, present bowel sounds Extremities: no tenderness, no cyanosis Laboratory Tests Test 10/09/20 18:26 10/10/20 05:35 POC Whole Blood Glucose 231 MG/DL (74-106) H White Blood Count 12.1 K/UL (4.8-10.8) H Red Blood Count 3.84 M/UL (4.70-6.10) L Hemoglobin 10.0 G/DL (14.2-18.0) L Hematocrit 30.6 % (42.0-52.0) L Mean Corpuscular Volume 80 FL (80-99) Mean Corpuscular Hemoglobin 26.1 PG (27.0-31.0) L Mean Corpuscular Hemoglobin Concent 32.8 G/DL (32.0-36.0) Red Cell Distribution Width 15.5 % (11.6-14.8) H Platelet Count 558 K/UL (150-450) H Mean Platelet Volume 9.5 FL (6.5-10.1) Neutrophils (%) (Auto) 55.2 % (45.0-75.0) Lymphocytes (%) (Auto) 36.9 % (20.0-45.0) Monocytes (%) (Auto) 5.0 % (1.0-10.0) Eosinophils (%) (Auto) 2.1 % (0.0-3.0) Basophils (%) (Auto) 0.9 % (0.0-2.0) Sodium Level 143 MMOL/L (136-145) # Potassium Level 3.5 MMOL/L (3.5-5.1) Chloride Level 110 MMOL/L (98-107) H Carbon Dioxide Level 27 MMOL/L (21-32) Anion Gap 6 mmol/L (5-15) Blood Urea Nitrogen 9 mg/dL (7-18) Creatinine 1.2 MG/DL (0.55-1.30) Estimat Glomerular Filtration Rate > 60 mL/min (>60) Glucose Level 202 MG/DL (74-106) H Calcium Level 9.0 MG/DL (8.5-10.1) Phosphorus Level 2.5 MG/DL (2.5-4.9) Magnesium Level 2.0 MG/DL (1.8-2.4) Total Bilirubin 0.3 MG/DL (0.2-1.0) Aspartate Amino Transf (AST/SGOT) 19 U/L (15-37) Alanine Aminotransferase (ALT/SGPT) 13 U/L (12-78) Alkaline Phosphatase 171 U/L (46-116) H C-Reactive Protein, Quantitative 13.0 mg/dL (0.00-0.90) H Pro-B-Type Natriuretic Peptide 322 pg/mL (0-125) H Total Protein 8.1 G/DL (6.4-8.2) Albumin 1.8 G/DL (3.4-5.0) L Globulin 6.3 g/dL Albumin/Globulin Ratio 0.3 (1.0-2.7) L Plan Problems: (1) Hypoxia (2) Severe sepsis Assessment & Plan: leukocytosis lactic acidosis anemia renal insufficiency on support in ICU dressings changed and care plan initiated cont abx trend labs if fluids am imaging ordered remains febrile cont abx cooling measures worsening respiratory cont support CT pending results Non-Blanchable erythema noted to R and L earlobes. Erythematous, scaly pimple- like rash,some of which are scaly and others small papules noted to R and L axillae, upper R and L chest and back ,R and L groin areas. Pt observed to persistently scratch affected areas described. Incontinence Associated Dermatitis Buttocks, R and L Ischial tuberosities are erythematous,denuded with shearing and scattered satellite lesions. Per staff pt frequently removes or dislodges Condom cath. R Heel is boggy with non-blanchable erythema. L Heel is boggy with Non-Blanchable erythema. Pt presented on admission with Multiple Pressure Injuries. Sacral DTPI which extends into R and L Gluteal cheeks and is partially opened upper R gluteus (L)14cm x (W)15cm. DTPI noted within hypertrophic scar from previous Pressure injury. Base of wound is purpuric at cleft ,and indurated. Non-Blanchable erythema with additional shearing periwound. An area of induration with darker skin tone noted to L Ischium. Darker skin tone without induration R Ischium. Scrotum is erythematous and swollen. DTPI L Heel and Plantar L Heel(L)4cm x (W)3.5cm. Base of Pressure Injury roca co lored Blister with darker center. Periwound is fluctuant with non-Blanchable erythema. DTPI R Heel (L)2.7cm x (W)4cm. Non-Blanchable erythema without induration/fluctuance R Hallux. Non-Blanchable erythema without induration/fluctuance L Hallux. Tx.Plan:Apply Cavilon Skin Barrier to both R and L ears.(Pad Oxygen Tubing as Needed.) Apply Moisture Barrier Paste to bilat groin and bilat ischial tuberosities with eqach Incontinence care. Apply Cavilon Skin Barrier to both heels. Cover each heel with Optifoam drsg. Change every 7 days and prn. Cleanse Sacral wound with Saline. Apply Therahoney. Apply Moisture Barrier Paste periwound. Cover with Optifoam drsg. Change every 3 days and prn. Apply Moisture Barrier Paste to Scrotum,R and L ischial tuberosities with each incontinence care. Apply Cavilon Skin Barrier to R and L Hallux. Cover each site with Optifoam drsgs. Change every 7 days and prn. Reposition at least every 2hours or as tolerated. Off-load heels with pillow. APM/ALEK Mattress overlay improving cont current care tube site okay DAILY ESTIMATED NEEDS: Needs based on Critical care, DM, Wound/ 62.73kg 22-30 kcals/kg 8755-0053 total kcals 1.25-2 g protein/kg 78-125 g total protein 25-30 mL/kg 5698-6186 total fluid mLs NUTRITION DIAGNOSIS: * Swallowing difficulty R/T dysphagia as evidenced by Pt is GT dep, currently orally intubated, off pressor support, on GT feeds. CURRENT TF:NPO ENTERAL NUTRITION RECOMMENDATIONS: Glucerna 1.2 @ 55ml/hr x 24 hrs to provide 1320ml, 1584kcal, 79g prot, 1063ml free water * Maintain current TF: meets 100 % est kcal/prot needs * HOB over 30 degrees * H2O flush of 180ml q 6hrs ADDITIONAL RECOMMENDATIONS: * Per SNF: HT=5'7" WT= 138lbs (as of Sep 13, 2020) * Monitor hemodynamic stability: NE @ 8mcg-> now off * Wound healing: TF rec @ goal provides 100% RDI add Vit C 500mg QD + Terrance BID via TF * Monitor lytes, replete as needed * Rec long acting insulin for improved BG control . (3) Dehydration (4) Hypernatremia (5) Clostridium difficile colitis (6) Staphylococcus aureus bacteremia (7) Hip fracture, left (8) Diabetes mellitus (9) History of hypertension (10) Severe protein-calorie malnutrition (11) Acute encephalopathy (12) Pressure Ulcer Of Sacral Region, Unstageable (13) Feeding by G-tube (14) Abdominal distention (15) Multiple drug resistant organism (MDRO) culture positive (16) Sepsis (17) History of CVA (cerebrovascular accident) (18) Parkinson disease James Breen Oct 10, 2020 17:47
[2020-10-11] VITALS (24 sets, daily range): BP systolic 97–138; BP diastolic 53–96
[2020-10-11] MEDS: NovoLOG Insulin Flexpen SUBQ SCH ×4 (00:46→18:36)
[2020-10-11] MEDS: Meropenem 1 GM in NS 55 ML IVPB SCH ×4 (01:39→17:29)
[2020-10-11] MEDS: Midodrine 10mg tab GT SCH ×3 (05:33→21:17)
[2020-10-11] MEDS: Acetaminophen 650mg/20.3ml GT PRN (05:41)
[2020-10-11 05:52] LABS: BASOPHILS % (AUTO) 1.1 % (0.0-2.0); EOSINOPHILS % (AUTO) 0.5 % (0.0-3.0); HEMATOCRIT 29.7 % (42.0-52.0); HEMOGLOBIN 9.4 G/DL (14.2-18.0); LYMPHOCYTES % (AUTO) 14.7 % (20.0-45.0); MEAN CORPUSCULAR VOLUME 83 FL (80-99); MONOCYTES % (AUTO) 5.8 % (1.0-10.0); NEUTROPHILS % (AUTO) 77.9 % (45.0-75.0); PLATELET COUNT 608 K/UL (150-450); RED BLOOD COUNT 3.57 M/UL (4.70-6.10); RED CELL DISTRIBUTION WIDTH 16.4 % (11.6-14.8); WHITE BLOOD COUNT 17.9 K/UL (4.8-10.8)
[2020-10-11 06:05] LABS: ALANINE AMINOTRANSFERASE 11 U/L (12-78); ALBUMIN 1.8 G/DL (3.4-5.0); ALBUMIN/GLOBULIN RATIO 0.3 (1.0-2.7); ALKALINE PHOSPHATASE 202 U/L (46-116); ANION GAP 6 mmol/L (5-15); ASPARTATE AMINO TRANSFERASE 17 U/L (15-37); BILIRUBIN,TOTAL 0.4 MG/DL (0.2-1.0); BLOOD UREA NITROGEN 12 mg/dL (7-18); CARBON DIOXIDE 28 MMOL/L (21-32); CHLORIDE 110 MMOL/L (98-107); CREATININE 1.2 MG/DL (0.55-1.30); POTASSIUM 4.1 MMOL/L (3.5-5.1); SODIUM 144 MMOL/L (136-145)
[2020-10-11] MEDS: Pantoprazole Inj IVP SCH ×3 (08:17→20:29)
[2020-10-11] MEDS: Ascorbic Acid 500mg tab GT SCH ×2 (08:18→17:28)
[2020-10-11] MEDS: Heparin 5000 units/ml inj SUBQ SCH ×2 (08:19→20:30)
--- NOTE | 2020-10-11 09:23 | Infectious Diseases Prog Note ---
Assessment/Plan 80yo M with: Fevers Leukocytosis, improving Resp secretions Resp failure on vent 10/06 BCx NTD CXR: Improving bilateral interstitial and airspace opacities with mild persistent left lower lobe airspace disease. 10/08 Resp cx +Kleb pna, ronquillo-S 10/10 CT chest/Abd/pelvis: Bilateral dense lower lobe consolidation, presumably representing pneumonia, nonspecific as regards appearance. More ill- defined reticular upper lobe opacities are probably related. Somewhat heterogeneous perfusion of the left kidney. This could indicate nephritis, although appearance is somewhat similar to the previous exam and this could just be baseline appearance for this patient. CONS bacteremia, recurrent 09/24 BCx 2/2 +CONS 09/25 BCx neg 09/28 BCx +CONS 09/30 BCx NTD Sepsis, septic shock GPC bacteremia UTI 2/ ESBL P.mirabilis Pneumonia 2/ ESBL P.mirabilis Febrile to 105, improving Leukocytosis to 15, improving 09/24 BCx 2/ CONS UA 20-30 WBC, UCx ESBL P.mirabilis COVID rapid test neg, PCR neg CXR: 1. Coarse bibasilar interstitial lung markings, may represent atypical infectious process such as viral pneumonia versus pulmonary edema. 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: No belt changer 2 days 09/28 C.dif neg 09/28 BCx +GPCs (see above) Resp cx +ESBL P.mirabilis 09/29 COVID PCR neg 10/03 CXR: Slightly worsened bilateral basilar infiltrates, over one day Cr 2.0, improving Plan: Cont meropenem #11 (abx d #17) for ESBL P.mirabilis UTI/pna (can sometimes have increased MICs to erta, but S-audra) BCx UA/UCx Trend WBC 10/07 SP vanco IV #7 empiric 10/01 SP erta #6 09/25 SP amikacin and vanco x1 Monitor CBC/CMP Monitor temp curve, hemodynamics Monitor resp status D/w RN Thank you for this consult. [facility] will continue to follow. Subjective Allergies: Coded Allergies: No Known Allergies (Unverified , 08/27/19) AF WBC up to 17 NAD on vent, doing slightly better, weaning Objective Last 24 Hour Vital Signs Date Time Temp Pulse Resp B/P (MAP) Pulse Ox O2 Delivery O2 Flow Rate FiO2 10/11/20 09:00 93 16 116/58 (77) 100 10/11/20 08:00 101 10/11/20 08:00 98.6 108 17 114/64 (81) 100 10/11/20 08:00 40 10/11/20 07:00 116 16 111/59 (76) 100 10/11/20 06:11 99.2 10/11/20 06:00 116 18 108/55 (72) 100 10/11/20 05:00 136 23 119/54 (75) 100 10/11/20 04:00 98.7 122 26 127/62 (83) 100 10/11/20 04:00 40 10/11/20 04:00 Mechanical Ventilator 10/11/20 03:47 125 10/11/20 03:00 127 22 97/74 (82) 100 10/11/20 02:39 127 22 40 10/11/20 02:00 132 22 132/77 (95) 100 10/11/20 01:00 132 23 138/68 (91) 100 10/11/20 00:00 99.0 128 23 134/63 (86) 100 10/11/20 00:00 Mechanical Ventilator 10/11/20 00:00 40 10/10/20 23:33 126 10/10/20 23:14 121 23 40 10/10/20 23:00 118 23 127/82 (97) 100 10/10/20 22:00 116 23 113/83 (93) 100 10/10/20 21:00 119 24 124/58 (80) 100 10/10/20 20:00 Mechanical Ventilator 10/10/20 20:00 40 10/10/20 20:00 98.4 106 21 117/64 (81) 100 10/10/20 19:23 113 10/10/20 19:00 104 20 125/72 (89) 10/10/20 18:45 110 18 40 10/10/20 18:00 120 25 141/90 (107) 100 10/10/20 17:00 116 27 124/58 (80) 100 10/10/20 16:00 98.4 114 25 131/54 (79) 100 10/10/20 16:00 40 10/10/20 16:00 Mechanical Ventilator 10/10/20 16:00 117 12/28/20 15:28 116 24 40 10/10/20 15:00 123 26 130/58 (82) 95 10/10/20 14:00 125 18 128/65 (86) 100 10/10/20 13:49 128 20 100 Endotrachael Tube 40 10/10/20 13:00 112 18 96/74 (81) 100 10/10/20 12:00 40 10/10/20 12:00 99.0 116 18 127/88 (101) 100 10/10/20 12:00 Mechanical Ventilator 10/10/20 12:00 116 10/10/20 11:27 120 20 40 10/10/20 11:00 123 39 88 10/10/20 10:00 116 20 100 10/10/20 09:32 100 Height (Feet): 5 Height (Inches): 10.00 Weight (Pounds): 180 Gen: NAD HEENT: NCAT Pulm: BL chest rise Abd: Non-distended Ext: No c/c/e Skin: No visible rashes Neuro: Awake Lines: R fem CVC Microbiology Date/Time Source Procedure Growth Status 10/08/20 15:30 Sputum Gram Stain - Final Resulted 10/08/20 15:30 Sputum Culture - Preliminary Klebsiella Pneumoniae Resulted Laboratory Tests Test 10/11/20 05:10 White Blood Count 17.9 K/UL (4.8-10.8) H Red Blood Count 3.57 M/UL (4.70-6.10) L Hemoglobin 9.4 G/DL (14.2-18.0) L Hematocrit 29.7 % (42.0-52.0) L Mean Corpuscular Volume 83 FL (80-99) Mean Corpuscular Hemoglobin 26.5 PG (27.0-31.0) L Mean Corpuscular Hemoglobin Concent 31.8 G/DL (32.0-36.0) L Red Cell Distribution Width 16.4 % (11.6-14.8) H Platelet Count 608 K/UL (150-450) H Mean Platelet Volume 9.4 FL (6.5-10.1) Neutrophils (%) (Auto) 77.9 % (45.0-75.0) H Lymphocytes (%) (Auto) 14.7 % (20.0-45.0) L Monocytes (%) (Auto) 5.8 % (1.0-10.0) Eosinophils (%) (Auto) 0.5 % (0.0-3.0) Basophils (%) (Auto) 1.1 % (0.0-2.0) Sodium Level 144 MMOL/L (136-145) Potassium Level 4.1 MMOL/L (3.5-5.1) Chloride Level 110 MMOL/L (98-107) H Carbon Dioxide Level 28 MMOL/L (21-32) Anion Gap 6 mmol/L (5-15) Blood Urea Nitrogen 12 mg/dL (7-18) Creatinine 1.2 MG/DL (0.55-1.30) Estimat Glomerular Filtration Rate > 60 mL/min (>60) Glucose Level 269 MG/DL (74-106) H Calcium Level 9.0 MG/DL (8.5-10.1) Total Bilirubin 0.4 MG/DL (0.2-1.0) Aspartate Amino Transf (AST/SGOT) 17 U/L (15-37) Alanine Aminotransferase (ALT/SGPT) 11 U/L (12-78) L Alkaline Phosphatase 202 U/L (46-116) H Total Protein 7.9 G/DL (6.4-8.2) Albumin 1.8 G/DL (3.4-5.0) L Globulin 6.1 g/dL Albumin/Globulin Ratio 0.3 (1.0-2.7) L Current Medications Medications (Trade) Dose Ordered Sig/Debi Route PRN Reason Start Time Stop Time Status Last Admin Dose Admin Acetaminophen (Tylenol) 650 mg Q4H PRN GT FEVER 10/03/20 01:15 11/02/20 01:14 10/11/20 05:41 Ascorbic Acid (Vitamin C) 250 mg TWICE A DAY GT 10/03/20 18:00 11/02/20 17:59 10/11/20 08:18 Dextrose (Dextrose 50%) 25 ml Q30M PRN IV Hypoglycemia 09/25/20 15:30 12/24/20 15:29 Dextrose (Dextrose 50%) 50 ml Q30M PRN IV Hypoglycemia 09/25/20 15:30 12/24/20 15:29 Heparin Sodium (Porcine) (Heparin 5000 units/ml) 5,000 units EVERY 12 HOURS SUBQ 09/25/20 09:00 11/09/20 08:59 10/11/20 08:19 Insulin Aspart (NovoLOG) Q6HR SUBQ 10/04/20 00:00 01/02/21 00:00 10/11/20 05:41 Meropenem 1 gm/ Sodium Chloride 55 ml @ 110 mls/hr Q8H IVPB 10/05/20 18:00 10/16/20 17:59 10/11/20 09:02 Midodrine (Pro-Amatine) 10 mg Q8HR GT 09/30/20 14:00 12/29/20 13:59 10/10/20 13:18 Ondansetron HCl (Zofran) 4 mg Q6H PRN IVP Nausea & Vomiting 09/25/20 00:15 10/25/20 00:14 Pantoprazole (Protonix) 40 mg Q12HR IVP 09/25/20 21:00 10/25/20 08:59 10/11/20 08:17 Polyethylene Glycol (Miralax) 17 gm DAILYPRN PRN ORAL Constipation 09/25/20 00:15 10/25/20 00:14 Marixa Oliva M.D. Oct 11, 2020 09:22
--- NOTE | 2020-10-11 10:48 | Pulmonolgy Critical Care Note ---
Critical Care - Asmt/Plan Problems: (1) Acute respiratory failure (2) Severe sepsis (3) Diabetes mellitus (4) Severe protein-calorie malnutrition (5) History of hypertension (6) History of CVA (cerebrovascular accident) (7) Parkinson disease (8) Feeding by G-tube Respiratory: monitor respiratory rate, adjust FIO2, CXR Cardiac: continue pressors, continue to monitor HR/BP Renal: F/U I&O, keep IV fluid, check electrolytes Infectious Disease: check cultures Gastrointestinal: continue feedings/current rate Endocrine: monitor blood sugar, continue sliding scale insulin Hematologic: transfuse if hgb<8.5 Neurologic: PRN Ativan, keep patient comfortable Affect: PRN ativan Prophylaxis: Protonix Time Spent (Minutes): 40 Notes Reviewed: color worker, cardio, renal Discussed with: nurses, consultants, bilingual patient support caseworkertea room manager - Objective Last 24 Hour Vital Signs Date Time Temp Pulse Resp B/P (MAP) Pulse Ox O2 Delivery O2 Flow Rate FiO2 10/11/20 09:00 93 16 116/58 (77) 100 10/11/20 08:00 101 10/11/20 08:00 98.6 108 17 114/64 (81) 100 10/11/20 08:00 Mechanical Ventilator 10/11/20 08:00 40 10/11/20 07:00 116 16 111/59 (76) 100 10/11/20 06:11 99.2 10/11/20 06:00 116 18 108/55 (72) 100 10/11/20 05:00 136 23 119/54 (75) 100 10/11/20 04:00 98.7 122 26 127/62 (83) 100 10/11/20 04:00 40 10/11/20 04:00 Mechanical Ventilator 10/11/20 03:47 125 10/11/20 03:00 127 22 97/74 (82) 100 10/11/20 02:39 127 22 40 10/11/20 02:00 132 22 132/77 (95) 100 10/11/20 01:00 132 23 138/68 (91) 100 10/11/20 00:00 99.0 128 23 134/63 (86) 100 10/11/20 00:00 Mechanical Ventilator 10/11/20 00:00 40 10/10/20 23:33 126 10/10/20 23:14 121 23 40 10/10/20 23:00 118 23 127/82 (97) 100 10/10/20 22:00 116 23 113/83 (93) 100 10/10/20 21:00 119 24 124/58 (80) 100 10/10/20 20:00 Mechanical Ventilator 10/10/20 20:00 40 10/10/20 20:00 98.4 106 21 117/64 (81) 100 10/10/20 19:23 113 10/10/20 19:00 104 20 125/72 (89) 10/10/20 18:45 110 18 40 10/10/20 18:00 120 25 141/90 (107) 100 10/10/20 17:00 116 27 124/58 (80) 100 10/10/20 16:00 98.4 114 25 131/54 (79) 100 10/10/20 16:00 40 10/10/20 16:00 Mechanical Ventilator 10/10/20 16:00 117 10/10/20 15:28 116 24 40 10/10/20 15:00 123 26 130/58 (82) 95 10/10/20 14:00 125 18 128/65 (86) 100 10/10/20 13:49 128 20 100 Endotrachael Tube 40 10/10/20 13:00 112 18 96/74 (81) 100 10/10/20 12:00 40 10/10/20 12:00 99.0 116 18 127/88 (101) 100 10/10/20 12:00 Mechanical Ventilator 10/10/20 12:00 116 10/10/20 11:27 120 20 40 10/10/20 11:00 123 39 88 Status: awake Condition: critical HEENT: atraumatic, normocephalic Neck: full ROM Heart: HR/BP stable Abdomen: soft, non-tender Extremities: no C/C/E Micro: Microbiology Date/Time Source Procedure Growth Status 10/08/20 15:30 Sputum Gram Stain - Final Resulted 10/08/20 15:30 Sputum Culture - Preliminary Klebsiella Pneumoniae Resulted Accucheck: 236 Critical Care - Subjective ROS Limited/Unobtainable: Yes Interval Events: weaning well FI02: 40 Vent Support Breath Rate: 16 Vent Support Mode: AC Vent Tidal Volume: 600 Sputum Amount: Small PEEP: 0.0 PIP: 22 Tube Feeding Amount: 55 I&O: Intake and Output 10/10/20 10/11/20 19:00 07:00 Intake Total 1075 ml 805 ml Output Total 1835 ml 755 ml Balance -760 ml 50 ml Intake Free Water 80 ml 90 ml IV Total 500 ml 55 ml Tube Feeding 495 ml 660 ml Output Urine Total 1835 ml 755 ml CXR: CT chest, IMPRESSION: Bilateral dense lower lobe consolidation, presumably representing pneumonia, nonspecific as regards appearance. More ill-defined reticular upper lobe opacities are probably related. ET-Tube: 7.0 ET Position: 23 Labs: Laboratory Tests Test 10/11/20 05:10 White Blood Count 17.9 K/UL (4.8-10.8) H Red Blood Count 3.57 M/UL (4.70-6.10) L Hemoglobin 9.4 G/DL (14.2-18.0) L Hematocrit 29.7 % (42.0-52.0) L Mean Corpuscular Volume 83 FL (80-99) Mean Corpuscular Hemoglobin 26.5 PG (27.0-31.0) L Mean Corpuscular Hemoglobin Concent 31.8 G/DL (32.0-36.0) L Red Cell Distribution Width 16.4 % (11.6-14.8) H Platelet Count 608 K/UL (150-450) H Mean Platelet Volume 9.4 FL (6.5-10.1) Neutrophils (%) (Auto) 77.9 % (45.0-75.0) H Lymphocytes (%) (Auto) 14.7 % (20.0-45.0) L Monocytes (%) (Auto) 5.8 % (1.0-10.0) Eosinophils (%) (Auto) 0.5 % (0.0-3.0) Basophils (%) (Auto) 1.1 % (0.0-2.0) Sodium Level 144 MMOL/L (136-145) Potassium Level 4.1 MMOL/L (3.5-5.1) Chloride Level 110 MMOL/L (98-107) H Carbon Dioxide Level 28 MMOL/L (21-32) Anion Gap 6 mmol/L (5-15) Blood Urea Nitrogen 12 mg/dL (7-18) Creatinine 1.2 MG/DL (0.55-1.30) Estimat Glomerular Filtration Rate > 60 mL/min (>60) Glucose Level 269 MG/DL (74-106) H Calcium Level 9.0 MG/DL (8.5-10.1) Total Bilirubin 0.4 MG/DL (0.2-1.0) Aspartate Amino Transf (AST/SGOT) 17 U/L (15-37) Alanine Aminotransferase (ALT/SGPT) 11 U/L (12-78) L Alkaline Phosphatase 202 U/L (46-116) H Total Protein 7.9 G/DL (6.4-8.2) Albumin 1.8 G/DL (3.4-5.0) L Globulin 6.1 g/dL Albumin/Globulin Ratio 0.3 (1.0-2.7) L Latanya Mckeon MD Oct 11, 2020 10:48
[2020-10-11] MEDS ORDERED: Lidocaine 1% Plain 30 ml INJ PRN (11:11)
[2020-10-11] MEDS ORDERED: Heparin1,000 units/500ml Premix(Conc:2 units/ml) IV PRN (11:11)
--- NOTE | 2020-10-11 12:50 | Nephrology Progress Note ---
Assessment/Plan Problem List: (1) KELLY (acute kidney injury) (2) Dehydration (3) Hypernatremia (4) Severe sepsis (5) History of CVA (cerebrovascular accident) (6) Parkinson disease (7) Acute respiratory failure (8) Elevated lipase Assessment KELLY, Hypernatremia, dehydration, free water deficit Sepsis Acute respiratory failure requiring intubation and mechanical ventilation Diabetes mellitus [id number] GT feeding History of CVA History of hypertension Parkinson's disease Elevated lipase Plan October 11: Labs reviewed. Renal parameters stable. Remains intubated. Full code. Continue per consultants. October 10: Labs reviewed. Renal parameters stable. Continue per consultants. Continue to monitor renal parameters. October 09: Labs reviewed. K-Phos and 1 L D5W ordered. Continue per consultants. Continue to monitor electrolytes and renal parameters. October 08: No CHEM panel drawn today. Will check lab tomorrow. Continue per consultants. October 07: Labs reviewed. Abnormal electrolytes addressed. Bolus of 500 cc D5W for elevated serum sodium given. Continue to monitor electrolytes and renal parameters. October 06: Labs reviewed. K-Phos replaced. Will give another liter of D5W. Continue to monitor electrolytes and renal parameters. October 05: Labs reviewed. Serum sodium rising. 1 L D5W IV ordered. Continue to monitor electrolytes. Continue per consultants. October 04: No CHEM panel was done today. Patient remain intubated on ventilator and full code. We will order labs tomorrow. Continue per consultants. October 03: Discussed with RN. Labs are reviewed. Potassium and phosphate replacement ordered. Continue per consultants. Patient remains full code in tubated on ventilator. Serum creatinine up to 1.5. Continue to monitor renal parameters. October 02: Remains in ICU and intubated. Labs reviewed. Serum creatinine 1.3. Serum sodium slightly elevated. Continue to monitor renal parameters and electrolytes. October 01: Seen in ICU. Discussed with RN. No chemistry panel done today. Blood pressure hovering around 100 systolic. Will check labs tomorrow. Continue per consultants. September 30: Labs reviewed. Renal parameters stable. Blood pressure hovering around 90s systolic. We will add midodrine through GT tube. Continue per consultants. September 29: Labs reviewed. Serum creatinine down to 1.3 and electrolytes reviewed. Abnormal electrolytes addressed. Continue per consultants. September 28: Labs reviewed. Creatinine 1.6 unchanged. Hypernatremia persists. Will give 1 L of D5W. Continue to monitor renal parameters and electrolytes. Continue per consultants. September 27: Labs reviewed. Serum sodium lowering. Serum creatinine lowering. Blood sugar somewhat better controlled. Patient continues to be on free water through tube feeding. Continue to monitor renal parameters and electrolytes. Abnormal electrolytes addressed. September 26: IV fluids stopped. Patient receiving free water reviewed NG tube. Patient full code. Intubated on ventilator. Discussed with JOHNNY Christensen. Continue to monitor renal parameters. Serum creatinine lower but abnormal electrolyte persists and was addressed. Previously: IV fluid half-normal saline 125 cc an hour Albumin fluid challenge Monitor electrolytes Monitor renal parameters Hold blood pressure medication since blood pressure low Per orders, per consultants Subjective ROS Limited/Unobtainable: Yes Objective Objective Last 24 Hour Vital Signs Date Time Temp Pulse Resp B/P (MAP) Pulse Ox O2 Delivery O2 Flow Rate FiO2 10/11/20 12:00 Mechanical Ventilator 10/11/20 12:00 119 10/11/20 12:00 115 28 113/65 (81) 100 10/11/20 11:00 118 24 127/57 (80) 100 10/11/20 10:00 113 25 125/56 (79) 100 10/11/20 09:36 88 24 40 10/11/20 09:00 93 16 116/58 (77) 100 10/11/20 08:00 101 10/11/20 08:00 98.6 108 17 114/64 (81) 100 10/11/20 08:00 Mechanical Ventilator 10/11/20 08:00 40 10/11/20 07:30 106 16 40 10/11/20 07:00 116 16 111/59 (76) 100 10/11/20 06:11 99.2 10/11/20 06:00 116 18 108/55 (72) 100 10/11/20 05:00 136 23 119/54 (75) 100 10/11/20 04:00 98.7 122 26 127/62 (83) 100 10/11/20 04:00 40 10/11/20 04:00 Mechanical Ventilator 10/11/20 03:47 125 10/11/20 03:00 127 22 97/74 (82) 100 10/11/20 02:39 127 22 40 10/11/20 02:00 132 22 132/77 (95) 100 10/11/20 01:00 132 23 138/68 (91) 100 10/11/20 00:00 99.0 128 23 134/63 (86) 100 10/11/20 00:00 Mechanical Ventilator 10/11/20 00:00 40 10/10/20 23:33 126 10/10/20 23:14 121 23 40 10/10/20 23:00 118 23 127/82 (97) 100 10/10/20 22:00 116 23 113/83 (93) 100 10/10/20 21:00 119 24 124/58 (80) 100 10/10/20 20:00 Mechanical Ventilator 10/10/20 20:00 40 10/10/20 20:00 98.4 106 21 117/64 (81) 100 10/10/20 19:23 113 10/10/20 19:00 104 20 125/72 (89) 10/10/20 18:45 110 18 40 10/10/20 18:00 120 25 141/90 (107) 100 10/10/20 17:00 116 27 124/58 (80) 100 10/10/20 16:00 98.4 114 25 131/54 (79) 100 10/10/20 16:00 40 10/10/20 16:00 Mechanical Ventilator 10/10/20 16:00 117 10/10/20 15:28 116 24 40 10/10/20 15:00 123 26 130/58 (82) 95 10/10/20 14:00 125 18 128/65 (86) 100 10/10/20 13:49 128 20 100 Endotrachael Tube 40 10/10/20 13:00 112 18 96/74 (81) 100 Intake and Output 10/10/20 10/11/20 19:00 07:00 Intake Total 1075 ml 805 ml Output Total 1835 ml 755 ml Balance -760 ml 50 ml Intake Free Water 80 ml 90 ml IV Total 500 ml 55 ml Tube Feeding 495 ml 660 ml Output Urine Total 1835 ml 755 ml Laboratory Tests 10/11/20 05:10: White Blood Count 17.9H, Red Blood Count 3.57L, Hemoglobin 9.4L, Hematocrit 2 9.7L, Mean Corpuscular Volume 83, Mean Corpuscular Hemoglobin 26.5L, Mean Corpuscular Hemoglobin Concent 31.8L, Red Cell Distribution Width 16.4H, Platelet Count 608H, Mean Platelet Volume 9.4, Neutrophils (%) (Auto) 77.9H, Lymphocytes (%) (Auto) 14.7L, Monocytes (%) (Auto) 5.8, Eosinophils (%) (Auto) 0.5, Basophils (%) (Auto) 1.1, Sodium Level 144, Potassium Level 4.1, Chloride Level 110H, Carbon Dioxide Level 28, Anion Gap 6, Blood Urea Nitrogen 12, Creatinine 1.2, Estimat Glomerular Filtration Rate > 60, Glucose Level 269H, Calcium Level 9.0, Total Bilirubin 0.4, Aspartate Amino Transf (AST/SGOT) 17, Alanine Aminotransferase (ALT/SGPT) 11L, Alkaline Phosphatase 202H, Total Protein 7.9, Albumin 1.8L, Globulin 6.1, Albumin/Globulin Ratio 0.3L 10/11/20 11:25: Arterial Blood pH 7.433, Arterial Blood Partial Pressure CO2 39.3, Arterial Blood Partial Pressure O2 94.6, Arterial Blood HCO3 25.7, Arterial Blood Oxygen Saturation 97.0, Arterial Blood Base Excess 1.4, Raz Test Positive Height (Feet): 5 Height (Inches): 10.00 Weight (Pounds): 180 General Appearance: no apparent distress EENT: other - Intubated on ventilator Cardiovascular: tachycardia Respiratory/Chest: decreased breath sounds Abdomen: distended Eddie Nelson MD Oct 11, 2020 12:49
--- NOTE | 2020-10-11 14:17 | Surgery Progress Note ---
Surgery Progress Note Subjective Additional Comments weaning well today leukocytosis h/h stable no n/v possible trial extubation Objective Last 24 Hour Vital Signs Date Time Temp Pulse Resp B/P (MAP) Pulse Ox O2 Delivery O2 Flow Rate FiO2 10/11/20 12:00 Mechanical Ventilator 10/11/20 12:00 119 10/11/20 12:00 115 28 113/65 (81) 100 10/11/20 11:15 110 22 40 10/11/20 11:00 118 24 127/57 (80) 100 10/11/20 10:00 113 25 125/56 (79) 100 10/11/20 09:36 88 24 40 10/11/20 09:00 93 16 116/58 (77) 100 10/11/20 08:00 101 10/11/20 08:00 98.6 108 17 114/64 (81) 100 10/11/20 08:00 Mechanical Ventilator 10/11/20 08:00 40 10/11/20 07:30 106 16 40 10/11/20 07:00 116 16 111/59 (76) 100 10/11/20 06:11 99.2 10/11/20 06:00 116 18 108/55 (72) 100 10/11/20 05:00 136 23 119/54 (75) 100 10/11/20 04:00 98.7 122 26 127/62 (83) 100 10/11/20 04:00 40 10/11/20 04:00 Mechanical Ventilator 10/11/20 03:47 125 10/11/20 03:00 127 22 97/74 (82) 100 10/11/20 02:39 127 22 40 10/11/20 02:00 132 22 132/77 (95) 100 10/11/20 01:00 132 23 138/68 (91) 100 10/11/20 00:00 99.0 128 23 134/63 (86) 100 10/11/20 00:00 Mechanical Ventilator 10/11/20 00:00 40 10/10/20 23:33 126 10/10/20 23:14 121 23 40 10/10/20 23:00 118 23 127/82 (97) 100 10/10/20 22:00 116 23 113/83 (93) 100 10/10/20 21:00 119 24 124/58 (80) 100 10/10/20 20:00 Mechanical Ventilator 10/10/20 20:00 40 10/10/20 20:00 98.4 106 21 117/64 (81) 100 10/10/20 19:23 113 10/10/20 19:00 104 20 125/72 (89) 10/10/20 18:45 110 18 40 10/10/20 18:00 120 25 141/90 (107) 100 10/10/20 17:00 116 27 124/58 (80) 100 10/10/20 16:00 98.4 114 25 131/54 (79) 100 10/10/20 16:00 40 10/10/20 16:00 Mechanical Ventilator 10/10/20 16:00 117 10/10/20 15:28 116 24 40 10/10/20 15:00 123 26 130/58 (82) 95 I&O l Intake and Output 10/10/20 10/11/20 19:00 07:00 Intake Total 1075 ml 805 ml Output Total 1835 ml 755 ml Balance -760 ml 50 ml Intake Free Water 80 ml 90 ml IV Total 500 ml 55 ml Tube Feeding 495 ml 660 ml Output Urine Total 1835 ml 755 ml Dressing: other Cardiovascular: RSR Respiratory: decreased breath sounds Abdomen: soft, flat, non-tender, present bowel sounds Extremities: edema, no tenderness, no cyanosis Laboratory Tests Test 10/10/20 16:59 10/11/20 00:42 10/11/20 05:10 10/11/20 05:37 POC Whole Blood Glucose 172 MG/DL (74-106) H 206 MG/DL (74-106) H Pending White Blood Count 17.9 K/UL (4.8-10.8) H Red Blood Count 3.57 M/UL (4.70-6.10) L Hemoglobin 9.4 G/DL (14.2-18.0) L Hematocrit 29.7 % (42.0-52.0) L Mean Corpuscular Volume 83 FL (80-99) Mean Corpuscular Hemoglobin 26.5 PG (27.0-31.0) L Mean Corpuscular Hemoglobin Concent 31.8 G/DL (32.0-36.0) L Red Cell Distribution Width 16.4 % (11.6-14.8) H Platelet Count 608 K/UL (150-450) H Mean Platelet Volume 9.4 FL (6.5-10.1) Neutrophils (%) (Auto) 77.9 % (45.0-75.0) H Lymphocytes (%) (Auto) 14.7 % (20.0-45.0) L Monocytes (%) (Auto) 5.8 % (1.0-10.0) Eosinophils (%) (Auto) 0.5 % (0.0-3.0) Basophils (%) (Auto) 1.1 % (0.0-2.0) Sodium Level 144 MMOL/L (136-145) Potassium Level 4.1 MMOL/L (3.5-5.1) Chloride Level 110 MMOL/L (98-107) H Carbon Dioxide Level 28 MMOL/L (21-32) Anion Gap 6 mmol/L (5-15) Blood Urea Nitrogen 12 mg/dL (7-18) Creatinine 1.2 MG/DL (0.55-1.30) Estimat Glomerular Filtration Rate > 60 mL/min (>60) Glucose Level 269 MG/DL (74-106) H Calcium Level 9.0 MG/DL (8.5-10.1) Total Bilirubin 0.4 MG/DL (0.2-1.0) Aspartate Amino Transf (AST/SGOT) 17 U/L (15-37) Alanine Aminotransferase (ALT/SGPT) 11 U/L (12-78) L Alkaline Phosphatase 202 U/L (46-116) H Total Protein 7.9 G/DL (6.4-8.2) Albumin 1.8 G/DL (3.4-5.0) L Globulin 6.1 g/dL Albumin/Globulin Ratio 0.3 (1.0-2.7) L Test 10/11/20 11:25 10/11/20 12:58 Arterial Blood pH 7.433 (7.350-7.450) Arterial Blood Partial Pressure CO2 39.3 mmHg (35.0-45.0) Arterial Blood Partial Pressure O2 94.6 mmHg (75.0-100.0) Arterial Blood HCO3 25.7 mmol/L (22.0-26.0) Arterial Blood Oxygen Saturation 97.0 % (95-100) Arterial Blood Base Excess 1.4 (-2-2) Raz Test Positive POC Whole Blood Glucose 235 MG/DL (74-106) H Plan Problems: (1) Hypoxia (2) Severe sepsis Assessment & Plan: leukocytosis lactic acidosis anemia renal insufficiency on support in ICU dressings changed and care plan initiated cont abx trend labs if fluids am imaging ordered remains febrile cont abx cooling measures worsening respiratory cont support CT noted - unable to obtain consent for ct. medically necessary to ensure no intraabd process. recommend proceed with ct in patients best interest weaning possible trial extubation Non-Blanchable erythema noted to R and L earlobes. Erythematous, scaly pimple- like rash,some of which are scaly and others small papules noted to R and L axillae, upper R and L chest and back ,R and L groin areas. Pt observed to persistently scratch affected areas described. Incontinence Associated Dermatitis Buttocks, R and L Ischial tuberosities are erythematous,denuded with shearing and scattered satellite lesions. Per staff pt frequently removes or dislodges Condom cath. R Heel is boggy with non-blanchable erythema. L Heel is boggy with Non-Blanchable erythema. Pt presented on admission with Multiple Pressure Injuries. Sacral DTPI which extends into R and L Gluteal cheeks and is partially opened upper R gluteus (L)14cm x (W)15cm. DTPI noted within hypertrophic scar from previous Pressure injury. Base of wound is purpuric at cleft ,and indurated. Non-Blanchable erythema with additional shearing periwound. An area of induration with darker skin tone noted to L Ischium. Darker skin tone without induration R Ischium. Scrotum is erythematous and swollen. DTPI L Heel and Plantar L Heel(L)4cm x (W)3.5cm. Base of Pressure Injury roca colored Blister with darker center. Periwound is fluctuant with non-Blanchable erythema. DTPI R Heel (L)2.7cm x (W)4cm. Non-Blanchable erythema without induration/fluctuance R Hallux. Non-Blanchable erythema without induration/fluctuance L Hallux. Tx.Plan:Apply Cavilon Skin Barrier to both R and L ears.(Pad Oxygen Tubing as Needed.) Apply Moisture Barrier Paste to bilat groin and bilat ischial tuberosities with eqach Incontinence care. Apply Cavilon Skin Barrier to both heels. Cover each heel with Optifoam drsg. Change every 7 days and prn. Cleanse Sacral wound with Saline. Apply Therahoney. Apply Moisture Barrier Paste periwound. Cover with Optifoam drsg. Change every 3 days and prn. Apply Moisture Barrier Paste to Scrotum,R and L ischial tuberosities with each incontinence care. Apply Cavilon Skin Barrier to R and L Hallux. Cover each site with Optifoam drsgs. Change every 7 days and prn. Reposition at least every 2hours or as tolerated. Off-load heels with pillow. APM/ALEK Mattress overlay improving cont current care tube site okay DAILY ESTIMATED NEEDS: Needs based on Critical care, DM, Wound/ 62.73kg 22-30 kcals/kg 8746-0225 total kcals 1.25-2 g protein/kg 78-125 g total protein 25-30 mL/kg 0510-6403 total fluid mLs NUTRITION DIAGNOSIS: * Swallowing difficulty R/T dysphagia as evidenced by Pt is GT dep, currently orally intubated, off pressor support, on GT feeds. CURRENT TF:NPO ENTERAL NUTRITION RECOMMENDATIONS: Glucerna 1.2 @ 55ml/hr x 24 hrs to provide 1320ml, 1584kcal, 79g prot, 1063ml free water * Maintain current TF: meets 100 % est kcal/prot needs * HOB over 30 degrees * H2O flush of 180ml q 6hrs ADDITIONAL RECOMMENDATIONS: * Per SNF: HT=5'7" WT= 138lbs (as of Sep 13, 2020) * Monitor hemodynamic stability: NE @ 8mcg-> now off * Wound healing: TF rec @ goal provides 100% RDI add Vit C 500mg QD + Terrance BID via TF * Monitor lytes, replete as needed * Rec long acting insulin for improved BG control . (3) Dehydration (4) Hypernatremia (5) Clostridium difficile colitis (6) Staphylococcus aureus bacteremia (7) Hip fracture, left (8) Diabetes mellitus (9) History of hypertension (10) Severe protein-calorie malnutrition (11) Acute encephalopathy (12) Pressure Ulcer Of Sacral Region, Unstageable (13) Feeding by G-tube (14) Abdominal distention (15) Multiple drug resistant organism (MDRO) culture positive (16) Sepsis (17) History of CVA (cerebrovascular accident) (18) Parkinson disease James Breen Oct 11, 2020 14:17
[2020-10-11 17:03] LABS: APPEARANCE,URINE CLEAR; BILIRUBIN, URINE NEGATIVE (NEGATIVE); COLOR,URINE PALE YELLOW; GLUCOSE, URINE (UA) NEGATIVE (NEGATIVE); KETONES,URINE 1+ (NEGATIVE); LEUKOCYTE ESTERASE ,URINE 1+ (NEGATIVE); NITRITE,URINE NEGATIVE (NEGATIVE); PH,URINE 6 (4.5-8.0); PROTEIN,URINE 3+ (NEGATIVE); UROBILINOGEN,URINE NORMAL MG/DL (0.0-1.0)
--- NOTE | 2020-10-11 17:48 | Internal Med Progress Note ---
Subjective Date of Service: Oct 11, 2020 Physician Name JordynTello Attending Physician Cirilo Rome MD Current Medications Medications (Trade) Dose Ordered Sig/Debi Route PRN Reason Start Time Stop Time Status Last Admin Dose Admin Acetaminophen (Tylenol) 650 mg Q4H PRN GT FEVER 10/03/20 01:15 11/02/20 01:14 10/11/20 05:41 Ascorbic Acid (Vitamin C) 250 mg TWICE A DAY GT 10/03/20 18:00 11/02/20 17:59 10/11/20 17:28 Chlorhexidine Gluconate (Jazmin-Hex 2%) 1 applic DAILY@1999 TOPIC 10/11/20 20:00 01/09/21 19:59 Dextrose (Dextrose 50%) 25 ml Q30M PRN IV Hypoglycemia 09/25/20 15:30 12/24/20 15:29 Dextrose (Dextrose 50%) 50 ml Q30M PRN IV Hypoglycemia 09/25/20 15:30 12/24/20 15:29 Heparin Sodium (Porcine) (Heparin 5000 units/ml) 5,000 units EVERY 12 HOURS SUBQ 09/25/20 09:00 11/09/20 08:59 10/11/20 08:19 Heparin Sodium/ Sodium Chloride (Heparin 1000 units/500ml Premix) 1,000 unit ONCE PRN IV PICC 10/11/20 11:11 10/11/20 23:59 Insulin Aspart (NovoLOG) Q6HR SUBQ 10/04/20 00:00 01/02/21 00:00 10/11/20 13:11 Lidocaine HCl (Xylocaine 1% 30ml) 30 ml ONCE PRN INJ PICC 10/11/20 11:11 10/11/20 23:59 Meropenem 1 gm/ Sodium Chloride 55 ml @ 110 mls/hr Q8H IVPB 10/05/20 18:00 10/16/20 17:59 10/11/20 17:29 Midodrine (Pro-Amatine) 10 mg Q8HR GT 09/30/20 14:00 12/29/20 13:59 10/11/20 13:07 Ondansetron HCl (Zofran) 4 mg Q6H PRN IVP Nausea & Vomiting 09/25/20 00:15 10/25/20 00:14 Pantoprazole (Protonix) 40 mg Q12HR IVP 12/13/20 21:00 10/25/20 08:59 10/10/20 20:00 Polyethylene Glycol (Miralax) 17 gm DAILYPRN PRN ORAL Constipation 09/25/20 00:15 10/25/20 00:14 Allergies: Coded Allergies: No Known Allergies (Unverified , 08/27/19) ROS Limited/Unobtainable: Yes Subjective 80 YO M admitted with respiratory failure. Extubated 10/11/20. Cover for Int Med-DR Rome. ICU Objective Last Vital Signs Date Time Temp Pulse Resp B/P (MAP) Pulse Ox O2 Delivery O2 Flow Rate FiO2 10/11/20 17:10 100 Nasal Cannula 4.0 36 10/11/20 17:00 113 25 128/75 (92) 10/11/20 13:00 98.8 Laboratory Tests Test 10/11/20 00:42 10/11/20 05:10 10/11/20 05:37 10/11/20 11:00 POC Whole Blood Glucose 206 MG/DL (74-106) H Pending White Blood Count 17.9 K/UL (4.8-10.8) H Red Blood Count 3.57 M/UL (4.70-6.10) L Hemoglobin 9.4 G/DL (14.2-18.0) L Hematocrit 29.7 % (42.0-52.0) L Mean Corpuscular Volume 83 FL (80-99) Mean Corpuscular Hemoglobin 26.5 PG (27.0-31.0) L Mean Corpuscular Hemoglobin Concent 31.8 G/DL (32.0-36.0) L Red Cell Distribution Width 16.4 % (11.6-14.8) H Platelet Count 608 K/UL (150-450) H Mean Platelet Volume 9.4 FL (6.5-10.1) Neutrophils (%) (Auto) 77.9 % (45.0-75.0) H Lymphocytes (%) (Auto) 14.7 % (20.0-45.0) L Monocytes (%) (Auto) 5.8 % (1.0-10.0) Eosinophils (%) (Auto) 0.5 % (0.0-3.0) Basophils (%) (Auto) 1.1 % (0.0-2.0) Sodium Level 144 MMOL/L (136-145) Potassium Level 4.1 MMOL/L (3.5-5.1) Chloride Level 110 MMOL/L (98-107) H Carbon Dioxide Level 28 MMOL/L (21-32) Anion Gap 6 mmol/L (5-15) Blood Urea Nitrogen 12 mg/dL (7-18) Creatinine 1.2 MG/DL (0.55-1.30) Estimat Glomerular Filtration Rate > 60 mL/min (>60) Glucose Level 269 MG/DL (74-106) H Calcium Level 9.0 MG/DL (8.5-10.1) Total Bilirubin 0.4 MG/DL (0.2-1.0) Aspartate Amino Transf (AST/SGOT) 17 U/L (15-37) Alanine Aminotransferase (ALT/SGPT) 11 U/L (12-78) L Alkaline Phosphatase 202 U/L (46-116) H Total Protein 7.9 G/DL (6.4-8.2) Albumin 1.8 G/DL (3.4-5.0) L Globulin 6.1 g/dL Albumin/Globulin Ratio 0.3 (1.0-2.7) L Urine Color Pale yellow Urine Appearance Clear Urine pH 6 (4.5-8.0) Urine Specific [place] 1.010 (1.005-1.035) Urine Protein 3+ (NEGATIVE) H Urine Glucose (UA) Negative (NEGATIVE) Urine Ketones 1+ (NEGATIVE) H Urine Blood 3+ (NEGATIVE) H Urine Nitrite Negative (NEGATIVE) Urine Bilirubin Negative (NEGATIVE) Urine Urobilinogen Normal MG/DL (0.0-1.0) Urine Leukocyte Esterase 1+ (NEGATIVE) H Urine RBC 5-10 /HPF (0 - 0) H Urine WBC 10-15 /HPF (0 - 0) H Urine Squamous Epithelial Cells None /LPF (NONE/OCC) Urine Bacteria Few /HPF (NONE) Test 10/11/20 11:25 10/11/20 12:58 Arterial Blood pH 7.433 (7.350-7.450) Arterial Blood Partial Pressure CO2 39.3 mmHg (35.0-45.0) Arterial Blood Partial Pressure O2 94.6 mmHg (75.0-100.0) Arterial Blood HCO3 25.7 mmol/L (22.0-26.0) Arterial Blood Oxygen Saturation 97.0 % (95-100) Arterial Blood Base Excess 1.4 (-2-2) Raz Test Positive POC Whole Blood Glucose 235 MG/DL (74-106) H Intake and Output 10/10/20 10/11/20 19:00 07:00 Intake Total 1075 ml 805 ml Output Total 1835 ml 755 ml Balance -760 ml 50 ml Intake Free Water 80 ml 90 ml IV Total 500 ml 55 ml Tube Feeding 495 ml 660 ml Output Urine Total 1835 ml 755 ml Objective PHYSICAL EXAMINATION: VITAL SIGNS: Temperature 103.5 degrees Fahrenheit, respiratory rate 24, pulse 138, blood pressure 130/83, pulse ox was 100% on mechanical ventilation with 60% FiO2. GENERAL: The patient is well-developed and well-nourished male, who is intubated and sedated. HEENT: Eyes, pupils are equal responsive to light and accommodation. Extraocular movements are intact. NECK: Supple without lymphadenopathy. CHEST: Nasal canula; Decreased breath sounds bilateral bases, otherwise without wheezes or rales. CARDIOVASCULAR: Regular rate. S1 and S2 normal without murmurs, rubs, or gallops. ABDOMEN: Soft, nontender, and nondistended. Positive bowel sounds. No evidence of hepatosplenomegaly. Currently, no rebound or guarding noted. EXTREMITIES: Negative for clubbing, cyanosis, or edema. RECTAL/GENITAL: Not performed. NEUROLOGIC: Unable to assess Assessment/Plan Assessment/Plan ASSESSMENT: This is a 80-year-old male. 1. Respiratory failure. 2. Bilateral pneumonia. 3. Hypertension. 4. Diabetes type 2. 5. Hypercholesterolemia. 6. Parkinson disease. 7. COVID-19 negative. 8. Ulcerative proctitis. 9. Benign prostatic hypertrophy. 10. Gastroesophageal reflux disease. 11. Urinary tract infection=proteus mirabilis 12. Sepsis=coag neg staph TREATMENT: 1. Pneumonia/respiratory failure. Infectious diseases = Drs. Harris/Pj. A Pulmonary/Critical care= Dr. Latanya Mckeon. S/P extubation 10/11/20 ABX= vancomycin, amikacin, and ertapenem. Follow recommendation of Infectious Diseases. 2. Urinary tract infection. ABX= Meropenem and vancomycin. An Infectious Disease consultation has been obtained with Dr. Harris. 3. Hypertension. The patient is currently hypotensive. 4. Diabetes type 2. NovoLog sliding scale has been instituted. 5. Hypercholesterolemia. Continue simvastatin as above. 6. Parkinson disease. 7. Ulcerative proctitis. 8. Benign prostatic hypertrophy. 9. Gastroesophageal reflux disease. 10. Dysphagia. The patient is status post PEG placement. Tello Cobb MD Oct 11, 2020 17:48
[2020-10-11] MEDS ORDERED: Dyna-Hex 2% Top Sol 2oz TOPIC SCH (20:00)
[2020-10-12] VITALS (24 sets, daily range): BP systolic 95–138; BP diastolic 47–87
[2020-10-12] MEDS: NovoLOG Insulin Flexpen SUBQ SCH ×4 (00:41→17:22)
[2020-10-12] MEDS: Meropenem 1 GM in NS 55 ML IVPB SCH ×3 (02:09→17:23)
[2020-10-12] MEDS: Midodrine 10mg tab GT SCH ×3 (05:35→21:18)
[2020-10-12 06:17] LABS: BASOPHILS % (AUTO) 1.6 % (0.0-2.0); EOSINOPHILS % (AUTO) 1.4 % (0.0-3.0); HEMATOCRIT 31.6 % (42.0-52.0); HEMOGLOBIN 10.1 G/DL (14.2-18.0); LYMPHOCYTES % (AUTO) 22.7 % (20.0-45.0); MEAN CORPUSCULAR VOLUME 82 FL (80-99); MONOCYTES % (AUTO) 7.2 % (1.0-10.0); NEUTROPHILS % (AUTO) 67.1 % (45.0-75.0); PLATELET COUNT 567 K/UL (150-450); RED BLOOD COUNT 3.84 M/UL (4.70-6.10); RED CELL DISTRIBUTION WIDTH 16.1 % (11.6-14.8)
[2020-10-12 06:25] LABS: ANION GAP 5 mmol/L (5-15); BLOOD UREA NITROGEN 13 mg/dL (7-18); CALCIUM 9.6 MG/DL (8.5-10.1); CARBON DIOXIDE 31 MMOL/L (21-32); CHLORIDE 113 MMOL/L (98-107); CREATININE 1.1 MG/DL (0.55-1.30); POTASSIUM 4.4 MMOL/L (3.5-5.1); SODIUM 149 MMOL/L (136-145)
[2020-10-12] MEDS ORDERED: Acetaminophen 650mg/20.3ml GT PRN (08:30)
[2020-10-12] MEDS: Ascorbic Acid 500mg tab GT SCH ×2 (08:41→20:54)
[2020-10-12] MEDS: Acetaminophen 650mg/20.3ml GT PRN (08:41)
[2020-10-12] MEDS: Pantoprazole Inj IVP SCH ×2 (08:41→20:54)
[2020-10-12] MEDS: Heparin 5000 units/ml inj SUBQ SCH ×2 (08:42→20:57)
--- NOTE | 2020-10-12 09:03 | Pulmonolgy Critical Care Note ---
Critical Care - Asmt/Plan Problems: (1) Acute respiratory failure (2) Severe sepsis (3) Diabetes mellitus (4) Severe protein-calorie malnutrition (5) History of hypertension (6) History of CVA (cerebrovascular accident) (7) Parkinson disease (8) Feeding by G-tube Respiratory: monitor respiratory rate, adjust FIO2, CXR Cardiac: continue to monitor HR/BP Renal: F/U I&O, keep IV fluid, check electrolytes Infectious Disease: check cultures, continue antibiotics Gastrointestinal: continue feedings/current rate Endocrine: monitor blood sugar, continue sliding scale insulin Hematologic: monitor H/H, transfuse if hgb<8.5 Neurologic: PRN Ativan, keep patient comfortable Prophylaxis: Protonix Time Spent (Minutes): 40 Notes Reviewed: scourer, cardio, renal Discussed with: nurses, consultants, rehabilitation case coordinatormanager linux - Objective Last 24 Hour Vital Signs Date Time Temp Pulse Resp B/P (MAP) Pulse Ox O2 Delivery O2 Flow Rate FiO2 10/12/20 08:00 100 10/12/20 08:00 100.0 140 38 113/70 (84) 10/12/20 08:00 Bi-pap 10/12/20 07:58 140 10/12/20 07:30 100 10/12/20 07:00 133 40 100/59 (73) 98 10/12/20 06:47 132 18 100 Bi-Pap 100 10/12/20 06:40 132 38 99 100 10/12/20 06:30 100 Non-Rebreather 15.0 100 10/12/20 06:00 134 38 137/87 (104) 100 10/12/20 05:00 127 34 129/62 (84) 88 10/12/20 04:00 99.0 118 30 138/63 (88) 94 10/12/20 04:00 Nasal Cannula 4.0 10/12/20 03:41 123 10/12/20 03:00 121 27 129/59 (82) 98 10/12/20 02:00 103 23 114/58 (76) 100 10/12/20 01:00 114 28 120/80 (93) 100 10/12/20 00:00 Nasal Cannula 4.0 10/12/20 00:00 98.1 123 28 118/76 (90) 100 10/11/20 23:19 117 10/11/20 23:00 111 26 122/64 (83) 100 10/11/20 22:00 123 34 122/58 (79) 82 10/11/20 21:00 121 22 130/62 (84) 96 10/11/20 20:00 Nasal Cannula 4.0 10/11/20 20:00 98.9 107 23 119/53 (75) 99 10/11/20 19:51 93 Venturi Mask 15.0 55 10/11/20 19:28 108 10/11/20 19:00 117 29 124/58 (80) 100 10/11/20 18:00 123 36 138/66 (90) 93 10/11/20 17:10 100 Nasal Cannula 4.0 36 10/11/20 17:10 Nasal Cannula 4.0 36 10/11/20 17:10 100 10/11/20 17:00 113 25 128/75 (92) 100 10/11/20 16:00 112 25 109/96 (100) 100 10/11/20 16:00 Mechanical Ventilator 10/11/20 16:00 99 10/11/20 15:00 97 22 118/59 (78) 100 10/11/20 14:00 114 25 124/58 (80) 100 10/11/20 13:00 98.8 113 25 124/63 (83) 100 10/11/20 12:00 Mechanical Ventilator 10/11/20 12:00 119 10/11/20 12:00 115 28 113/65 (81) 100 10/11/20 11:15 110 22 40 10/11/20 11:00 118 24 127/57 (80) 100 10/11/20 10:00 113 25 125/56 (79) 100 10/11/20 09:36 88 24 40 Status: sedated Condition: critical HEENT: atraumatic Neck: full ROM Heart: HR/BP stable Abdomen: soft, non-tender Extremities: no C/C/E Accucheck: 236 Critical Care - Subjective ROS Limited/Unobtainable: Yes Interval Events: extubated yesterday, needed to be put on BIPAP. Condition: critical EKG Rhythm: Sinus Rhythm FI02: 100 Vent Support Breath Rate: 16 Vent Support Mode: BiLevel Vent Tidal Volume: 600 Sputum Amount: None PEEP: 0.0 PIP: 9 Tube Feeding Amount: 55 I&O: Intake and Output 10/11/20 10/12/20 19:00 07:00 Intake Total 830 ml 775 ml Output Total 415 ml 635 ml Balance 415 ml 140 ml Intake Free Water 60 ml IV Total 110 ml 55 ml Tube Feeding 660 ml 660 ml Other 60 ml Output Urine Total 415 ml 635 ml # Bowel Movements 1 CXR: no change ET-Tube: 7.0 ET Position: 23 Labs: Laboratory Tests Test 10/11/20 11:00 10/11/20 11:25 10/11/20 12:58 10/11/20 18:16 Urine Color Pale yellow Urine Appearance Clear Urine pH 6 (4.5-8.0) Urine Specific [place] 1.010 (1.005-1.035) Urine Protein 3+ (NEGATIVE) H Urine Glucose (UA) Negative (NEGATIVE) Urine Ketones 1+ (NEGATIVE) H Urine Blood 3+ (NEGATIVE) H Urine Nitrite Negative (NEGATIVE) Urine Bilirubin Negative (NEGATIVE) Urine Urobilinogen Normal MG/DL (0.0-1.0) Urine Leukocyte Esterase 1+ (NEGATIVE) H Urine RBC 5-10 /HPF (0 - 0) H Urine WBC 10-15 /HPF (0 - 0) H Urine Squamous Epithelial Cells None /LPF (NONE/OCC) Urine Bacteria Few /HPF (NONE) Arterial Blood pH 7.433 (7.350-7.450) Arterial Blood Partial Pressure CO2 39.3 mmHg (35.0-45.0) Arterial Blood Partial Pressure O2 94.6 mmHg (75.0-100.0) Arterial Blood HCO3 25.7 mmol/L (22.0-26.0) Arterial Blood Oxygen Saturation 97.0 % (95-100) Arterial Blood Base Excess 1.4 (-2-2) Raz Test Positive POC Whole Blood Glucose 235 MG/DL (74-106) H 219 MG/DL (74-106) H Test 10/12/20 00:07 10/12/20 05:14 10/12/20 05:19 10/12/20 05:58 POC Whole Blood Glucose 205 MG/DL (74-106) H 236 MG/DL (74-106) H White Blood Count 13.0 K/UL (4.8-10.8) H Red Blood Count 3.84 M/UL (4.70-6.10) L Hemoglobin 10.1 G/DL (14.2-18.0) L Hematocrit 31.6 % (42.0-52.0) L Mean Corpuscular Volume 82 FL (80-99) Mean Corpuscular Hemoglobin 26.4 PG (27.0-31.0) L Mean Corpuscular Hemoglobin Concent 32.0 G/DL (32.0-36.0) Red Cell Distribution Width 16.1 % (11.6-14.8) H Platelet Count 567 K/UL (150-450) H Mean Platelet Volume 8.8 FL (6.5-10.1) Neutrophils (%) (Auto) 67.1 % (45.0-75.0) Lymphocytes (%) (Auto) 22.7 % (20.0-45.0) Monocytes (%) (Auto) 7.2 % (1.0-10.0) Eosinophils (%) (Auto) 1.4 % (0.0-3.0) Basophils (%) (Auto) 1.6 % (0.0-2.0) Sodium Level 149 MMOL/L (136-145) H Potassium Level 4.4 MMOL/L (3.5-5.1) Chloride Level 113 MMOL/L (98-107) H Carbon Dioxide Level 31 MMOL/L (21-32) Anion Gap 5 mmol/L (5-15) Blood Urea Nitrogen 13 mg/dL (7-18) Creatinine 1.1 MG/DL (0.55-1.30) Estimat Glomerular Filtration Rate > 60 mL/min (>60) Glucose Level 234 MG/DL (74-106) H Calcium Level 9.6 MG/DL (8.5-10.1) Arterial Blood pH 7.406 (7.350-7.450) Arterial Blood Partial Pressure CO2 46.4 mmHg (35.0-45.0) H Arterial Blood Partial Pressure O2 72.9 mmHg (75.0-100.0) L Arterial Blood HCO3 28.5 mmol/L (22.0-26.0) H Arterial Blood Oxygen Saturation 93.7 % (95-100) L Arterial Blood Base Excess 3.3 (-2-2) H Raz Test Positive Test 10/12/20 08:00 Arterial Blood pH 7.451 (7.350-7.450) Arterial Blood Partial Pressure CO2 38.2 mmHg (35.0-45.0) Arterial Blood Partial Pressure O2 204.9 mmHg (75.0-100.0) H Arterial Blood HCO3 26.0 mmol/L (22.0-26.0) Arterial Blood Oxygen Saturation 98.6 % (95-100) Arterial Blood Base Excess 2.0 (-2-2) Raz Test Positive Latanya Mckeon MD Oct 12, 2020 09:03
--- NOTE | 2020-10-12 09:11 | Infectious Diseases Prog Note ---
Assessment/Plan 80yo M with: Fevers Leukocytosis, improving Resp secretions Resp failure on vent 10/06 BCx NTD CXR: Improving bilateral interstitial and airspace opacities with mild persistent left lower lobe airspace disease. 10/08 Resp cx +Kleb pna, ronquillo-S 10/10 CT chest/Abd/pelvis: Bilateral dense lower lobe consolidation, presumab ly representing pneumonia, nonspecific as regards appearance. More ill-defined reticular upper lobe opacities are probably related. Somewhat heterogeneous perfusion of the left kidney. This could indicate nephritis, although appearance is somewhat similar to the previous exam and this could just be baseline appearance for this patient. 10/11 BCx p UA 10-15 WBC, UCx p CONS bacteremia, recurrent 09/24 BCx 2/2 +CONS 09/25 BCx neg 09/28 BCx +CONS 09/30 BCx NTD Sepsis, septic shock GPC bacteremia UTI 2/ ESBL P.mirabilis Pneumonia 2/ ESBL P.mirabilis Febrile to 105, improving Leukocytosis to 15, improving 09/24 BCx 2 CONS UA 20-30 WBC, UCx ESBL P.mirabilis COVID rapid test neg, PCR neg CXR: 1. Coarse bibasilar interstitial lung markings, may represent atypical infectious process such as viral pneumonia versus pulmonary edema. 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: No mold insert changer 2 days 09/28 C.dif neg 09/28 BCx +GPCs (see above) Resp cx +ESBL P.mirabilis 09/29 COVID PCR neg 10/03 CXR: Slightly worsened bilateral basilar infiltrates, over one day Cr 2.0, improving Plan: Cont meropenem #12 (abx d #18) for ESBL P.mirabilis UTI/pna (can sometimes have increased MICs to erta, but S-audra) - if cx from 10/11 neg will stop abx soon F/u 10/11 BCx UCx Trend WBC 10/07 SP vanco IV #7 empiric 10/01 SP erta #6 09/25 SP amikacin and vanco x1 Monitor CBC/CMP Monitor temp curve, hemodynamics Monitor resp status D/w RN Thank you for this consult. [facility] will continue to follow. Subjective Allergies: Coded Allergies: No Known Allergies (Unverified , 08/27/19) AF WBC improving to 13 NAD Extubated yesterday, didn't tolerate NC or venturi mask so now on BiPAP doing ok Objective Last 24 Hour Vital Signs Date Time Temp Pulse Resp B/P (MAP) Pulse Ox O2 Delivery O2 Flow Rate FiO2 10/12/20 08:00 100 10/12/20 08:00 100.0 140 38 113/70 (84) 10/12/20 08:00 Bi-pap 10/12/20 07:58 140 10/12/20 07:30 100 10/12/20 07:00 133 40 100/59 (73) 98 10/12/20 06:47 132 18 100 Bi-Pap 100 10/12/20 06:40 132 38 99 100 10/12/20 06:30 100 Non-Rebreather 15.0 100 10/12/20 06:00 134 38 137/87 (104) 100 10/12/20 05:00 127 34 129/62 (84) 88 10/12/20 04:00 99.0 118 30 138/63 (88) 94 10/12/20 04:00 Nasal Cannula 4.0 10/12/20 03:41 123 10/12/20 03:00 121 27 129/59 (82) 98 10/12/20 02:00 103 23 114/58 (76) 100 10/12/20 01:00 114 28 120/80 (93) 100 10/12/20 00:00 Nasal Cannula 4.0 10/12/20 00:00 98.1 123 28 118/76 (90) 100 10/11/20 23:19 117 10/11/20 23:00 111 26 122/64 (83) 100 10/11/20 22:00 123 34 122/58 (79) 82 10/11/20 21:00 121 22 130/62 (84) 96 10/11/20 20:00 Nasal Cannula 4.0 10/11/20 20:00 98.9 107 23 119/53 (75) 99 10/11/20 19:51 93 Venturi Mask 15.0 55 10/11/20 19:28 108 10/11/20 19:00 117 29 124/58 (80) 100 10/11/20 18:00 123 36 138/66 (90) 93 10/11/20 17:10 100 Nasal Cannula 4.0 36 10/11/20 17:10 Nasal Cannula 4.0 36 10/11/20 17:10 100 10/11/20 17:00 113 25 128/75 (92) 100 10/11/20 16:00 112 25 109/96 (100) 100 10/11/20 16:00 Mechanical Ventilator 10/11/20 16:00 99 10/11/20 15:00 97 22 118/59 (78) 100 10/11/20 14:00 114 25 124/58 (80) 100 10/11/20 13:00 98.8 113 25 124/63 (83) 100 10/11/20 12:00 Mechanical Ventilator 10/11/20 12:00 119 10/11/20 12:00 115 28 113/65 (81) 100 10/11/20 11:15 110 22 40 10/11/20 11:00 118 24 127/57 (80) 100 10/11/20 10:00 113 25 125/56 (79) 100 10/11/20 09:36 88 24 40 Height (Feet): 5 Height (Inches): 10.00 Weight (Pounds): 180 Gen: NAD HEENT: NCAT Pulm: BL chest rise Abd: Non-distended Ext: No c/c/e Skin: No visible rashes Neuro: Awake Laboratory Tests Test 10/11/20 11:00 10/11/20 11:25 10/11/20 12:58 10/11/20 18:16 Urine Color Pale yellow Urine Appearance Clear Urine pH 6 (4.5-8.0) Urine Specific Boyd 1.010 (1.005-1.035) Urine Protein 3+ (NEGATIVE) H Urine Glucose (UA) Negative (NEGATIVE) Urine Ketones 1+ (NEGATIVE) H Urine Blood 3+ (NEGATIVE) H Urine Nitrite Negative (NEGATIVE) Urine Bilirubin Negative (NEGATIVE) Urine Urobilinogen Normal MG/DL (0.0-1.0) Urine Leukocyte Esterase 1+ (NEGATIVE) H Urine RBC 5-10 /HPF (0 - 0) H Urine WBC 10-15 /HPF (0 - 0) H Urine Squamous Epithelial Cells None /LPF (NONE/OCC) Urine Bacteria Few /HPF (NONE) Arterial Blood pH 7.433 (7.350-7.450) Arterial Blood Partial Pressure CO2 39.3 mmHg (35.0-45.0) Arterial Blood Partial Pressure O2 94.6 mmHg (75.0-100.0) Arterial Blood HCO3 25.7 mmol/L (22.0-26.0) Arterial Blood Oxygen Saturation 97.0 % (95-100) Arterial Blood Base Excess 1.4 (-2-2) Raz Test Positive POC Whole Blood Glucose 235 MG/DL (74-106) H 219 MG/DL (74-106) H Test 10/12/20 00:07 10/12/20 05:14 10/12/20 05:19 10/12/20 05:58 POC Whole Blood Glucose 205 MG/DL (74-106) H 236 MG/DL (74-106) H White Blood Count 13.0 K/UL (4.8-10.8) H Red Blood Count 3.84 M/UL (4.70-6.10) L Hemoglobin 10.1 G/DL (14.2-18.0) L Hematocrit 31.6 % (42.0-52.0) L Mean Corpuscular Volume 82 FL (80-99) Mean Corpuscular Hemoglobin 26.4 PG (27.0-31.0) L Mean Corpuscular Hemoglobin Concent 32.0 G/DL (32.0-36.0) Red Cell Distribution Width 16.1 % (11.6-14.8) H Platelet Count 567 K/UL (150-450) H Mean Platelet Volume 8.8 FL (6.5-10.1) Neutrophils (%) (Auto) 67.1 % (45.0-75.0) Lymphocytes (%) (Auto) 22.7 % (20.0-45.0) Monocytes (%) (Auto) 7.2 % (1.0-10.0) Eosinophils (%) (Auto) 1.4 % (0.0-3.0) Basophils (%) (Auto) 1.6 % (0.0-2.0) Sodium Level 149 MMOL/L (136-145) H Potassium Level 4.4 MMOL/L (3.5-5.1) Chloride Level 113 MMOL/L (98-107) H Carbon Dioxide Level 31 MMOL/L (21-32) Anion Gap 5 mmol/L (5-15) Blood Urea Nitrogen 13 mg/dL (7-18) Creatinine 1.1 MG/DL (0.55-1.30) Estimat Glomerular Filtration Rate > 60 mL/min (>60) Glucose Level 234 MG/DL (74-106) H Calcium Level 9.6 MG/DL (8.5-10.1) Arterial Blood pH 7.406 (7.350-7.450) Arterial Blood Partial Pressure CO2 46.4 mmHg (35.0-45.0) H Arterial Blood Partial Pressure O2 72.9 mmHg (75.0-100.0) L Arterial Blood HCO3 28.5 mmol/L (22.0-26.0) H Arterial Blood Oxygen Saturation 93.7 % (95-100) L Arterial Blood Base Excess 3.3 (-2-2) H Raz Test Positive Test 10/12/20 08:00 Arterial Blood pH 7.451 (7.350-7.450) Arterial Blood Partial Pressure CO2 38.2 mmHg (35.0-45.0) Arterial Blood Partial Pressure O2 204.9 mmHg (75.0-100.0) H Arterial Blood HCO3 26.0 mmol/L (22.0-26.0) Arterial Blood Oxygen Saturation 98.6 % (95-100) Arterial Blood Base Excess 2.0 (-2-2) Raz Test Positive Current Medications Medications (Trade) Dose Ordered Sig/Debi Route PRN Reason Start Time Stop Time Status Last Admin Dose Admin Acetaminophen (Tylenol) 650 mg Q4H PRN GT FEVER 10/03/20 01:15 11/02/20 01:14 10/12/20 08:41 Acetaminophen (Tylenol) 650 mg Q6H PRN GT Mild Pain (Pain Scale 1-3) 10/12/20 08:30 11/11/20 08:29 Ascorbic Acid (Vitamin C) 250 mg EVERY 12 HOURS GT 10/12/20 09:00 11/02/20 17:59 10/12/20 08:41 Chlorhexidine Gluconate (Jazmin-Hex 2%) 1 applic DAILY@1999 TOPIC 10/11/20 20:00 01/09/21 19:59 Dextrose (Dextrose 50%) 25 ml Q30M PRN IV Hypoglycemia 09/25/20 15:30 12/24/20 15:29 Dextrose (Dextrose 50%) 50 ml Q30M PRN IV Hypoglycemia 09/25/20 15:30 12/24/20 15:29 Heparin Sodium (Porcine) (Heparin 5000 units/ml) 5,000 units EVERY 12 HOURS SUBQ 09/25/20 09:00 11/09/20 08:59 10/12/20 08:42 Insulin Aspart (NovoLOG) Q6HR SUBQ 10/04/20 00:00 01/02/21 00:00 10/12/20 05:35 Meropenem 1 gm/ Sodium Chloride 55 ml @ 110 mls/hr Q8H IVPB 10/05/20 18:00 10/16/20 17:59 10/12/20 09:08 Midodrine (Pro-Amatine) 10 mg Q8HR GT 09/30/20 14:00 12/29/20 13:59 10/11/20 13:07 Ondansetron HCl (Zofran) 4 mg Q6H PRN IVP Nausea & Vomiting 09/25/20 00:15 10/25/20 00:14 Pantoprazole (Protonix) 40 mg Q12HR IVP 09/25/20 21:00 10/25/20 08:59 10/12/20 08:41 Polyethylene Glycol (Miralax) 17 gm DAILYPRN PRN ORAL Constipation 09/25/20 00:15 10/25/20 00:14 Marixa Oliva M.D. Oct 12, 2020 09:11
--- NOTE | 2020-10-12 11:36 | Diagnostic Imaging Report ---
Indication: Shortness of breath Technique: One view of the chest Comparison: 10/07/2020 Findings: Allowing for technical differences, infiltrate at the left lung base is probably unchanged. There may be some hazy ill-defined infiltrate of the right lung base. Pleural spaces are clear. The heart size is normal. Previously demonstrated endotracheal tube is no longer present Impression: Interim extubation and Persistent and probably unchanged left basilar infiltrate Slightly increased right basilar infiltrate
--- NOTE | 2020-10-12 15:03 | Nephrology Progress Note ---
Assessment/Plan Problem List: (1) KELLY (acute kidney injury) (2) Dehydration (3) Hypernatremia (4) Severe sepsis (5) History of CVA (cerebrovascular accident) (6) Parkinson disease (7) Acute respiratory failure (8) Elevated lipase Assessment KELLY, Hypernatremia, dehydration, free water deficit Sepsis Acute respiratory failure requiring intubation and mechanical ventilation Diabetes mellitus [id number] GT feeding History of CVA History of hypertension Parkinson's disease Elevated lipase Plan October 12: Patient extubated yesterday. Currently on BiPAP. Labs reviewed. Remains full code. Stable from renal standpoint view. Continue post extubation pulmonary care. October 11: Labs reviewed. Renal parameters stable. Remains intubated. Full code. Continue per consultants. October 10: Labs reviewed. Renal parameters stable. Continue per consultants. Continue to monitor renal parameters. October 09: Labs reviewed. K-Phos and 1 L D5W ordered. Continue per consultants. Continue to monitor electrolytes and renal parameters. October 08: No CHEM panel drawn today. Will check lab tomorrow. Continue per consultants. October 07: Labs reviewed. Abnormal electrolytes addressed. Bolus of 500 cc D5W for elevated serum sodium given. Continue to monitor electrolytes and renal parameters. October 06: Labs reviewed. K-Phos replaced. Will give another liter of D5W. Continue to monitor electrolytes and renal parameters. October 05: Labs reviewed. Serum sodium rising. 1 L D5W IV ordered. Continue to monitor electrolytes. Continue per consultants. October 04: No CHEM panel was done today. Patient remain intubated on ventilator and full code. We will order labs tomorrow. Continue per consultants. October 03: Discussed with RN. Labs are reviewed. Potassium and phosphate replacement ordered. Continue per consultants. Patient remains full code intubated on ventilator. Serum creatinine up to 1.5. Continue to monitor renal parameters. October 02: Remains in ICU and intubated. Labs reviewed. Serum creatinine 1.3. Serum sodium slightly elevated. Continue to monitor renal parameters and electrolytes. October 01: Seen in ICU. Discussed with RN. No chemistry panel done today. Blood pressure hovering around 100 systolic. Will check labs tomorrow. Continue per consultants. September 30: Labs reviewed. Renal parameters stable. Blood pressure hovering around 90s systolic. We will add midodrine through GT tube. Continue per co nsultants. September 29: Labs reviewed. Serum creatinine down to 1.3 and electrolytes reviewed. Abnormal electrolytes addressed. Continue per consultants. September 28: Labs reviewed. Creatinine 1.6 unchanged. Hypernatremia persists. Will give 1 L of D5W. Continue to monitor renal parameters and electrolytes. Continue per consultants. September 27: Labs reviewed. Serum sodium lowering. Serum creatinine lowering. Blood sugar somewhat better controlled. Patient continues to be on free water through tube feeding. Continue to monitor renal parameters and electrolytes. Abnormal electrolytes addressed. September 26: IV fluids stopped. Patient receiving free water reviewed NG tube. Patient full code. Intubated on ventilator. Discussed with JOHNNY Christensen. Continue to monitor renal parameters. Serum creatinine lower but abnormal electrolyte persists and was addressed. Previously: IV fluid half-normal saline 125 cc an hour Albumin fluid challenge Monitor electrolytes Monitor renal parameters Hold blood pressure medication since blood pressure low Per orders, per consultants Subjective ROS Limited/Unobtainable: Yes Objective Objective Last 24 Hour Vital Signs Date Time Temp Pulse Resp B/P (MAP) Pulse Ox O2 Delivery O2 Flow Rate FiO2 10/12/20 14:00 117 26 109/63 (78) 100 10/12/20 13:00 107 23 95/49 (64) 100 10/12/20 12:00 99.1 108 27 107/76 (86) 100 10/12/20 12:00 100 10/12/20 12:00 Bi-pap 10/12/20 12:00 80 10/12/20 11:32 80 10/12/20 11:20 119 22 100 100 10/12/20 11:00 113 23 104/58 (73) 100 10/12/20 10:00 123 25 111/58 (75) 100 10/12/20 09:00 137 38 111/50 (70) 100 10/12/20 08:00 100 10/12/20 08:00 100.0 140 38 113/70 (84) 10/12/20 08:00 Bi-pap 10/12/20 07:58 140 10/12/20 07:30 100 10/12/20 07:00 133 40 100/59 (73) 98 10/12/20 06:47 132 18 100 Bi-Pap 100 10/12/20 06:40 132 38 99 100 10/12/20 06:30 100 Non-Rebreather 15.0 100 10/12/20 06:00 134 38 137/87 (104) 100 10/12/20 05:00 127 34 129/62 (84) 88 10/12/20 04:00 99.0 118 30 138/63 (88) 94 10/12/20 04:00 Nasal Cannula 4.0 10/12/20 03:41 123 10/12/20 03:00 121 27 129/59 (82) 98 10/12/20 02:00 103 23 114/58 (76) 100 10/12/20 01:00 114 28 120/80 (93) 100 10/12/20 00:00 Nasal Cannula 4.0 10/12/20 00:00 98.1 123 28 118/76 (90) 100 10/11/20 23:19 117 10/11/20 23:00 111 26 122/64 (83) 100 10/11/20 22:00 123 34 122/58 (79) 82 10/11/20 21:00 121 22 130/62 (84) 96 10/11/20 20:00 Nasal Cannula 4.0 10/11/20 20:00 98.9 107 23 119/53 (75) 99 10/11/20 19:51 93 Venturi Mask 15.0 55 10/11/20 19:28 108 10/11/20 19:00 117 29 124/58 (80) 100 10/11/20 18:00 123 36 138/66 (90) 93 10/11/20 17:10 100 Nasal Cannula 4.0 36 10/11/20 17:10 Nasal Cannula 4.0 36 10/11/20 17:10 100 10/11/20 17:00 113 25 128/75 (92) 100 10/11/20 16:00 112 25 109/96 (100) 100 10/11/20 16:00 Mechanical Ventilator 10/11/20 16:00 99 Intake and Output 10/11/20 10/12/20 19:00 07:00 Intake Total 830 ml 775 ml Output Total 415 ml 635 ml Balance 415 ml 140 ml Intake Free Water 60 ml IV Total 110 ml 55 ml Tube Feeding 660 ml 660 ml Other 60 ml Output Urine Total 415 ml 635 ml # Bowel Movements 1 Laboratory Tests 10/11/20 18:16: POC Whole Blood Glucose 219H 10/12/20 00:07: POC Whole Blood Glucose 205H 10/12/20 05:14: White Blood Count 13.0H, Red Blood Count 3.84L, Hemoglobin 10.1L, Hematocrit 31.6L, Mean Corpuscular Volume 82, Mean Corpuscular Hemoglobin 26.4L, Mean Corpuscular Hemoglobin Concent 32.0, Red Cell Distribution Width 16.1H, Platelet Count 567H, Mean Platelet Volume 8.8, Neutrophils (%) (Auto) 67.1, Lymphocytes (%) (Auto) 22.7, Monocytes (%) (Auto) 7.2, Eosinophils (%) (Auto) 1.4, Basophils (%) (Auto) 1.6, Sodium Level 149H, Potassium Level 4.4, Chloride Level 113H, Carbon Dioxide Level 31, Anion Gap 5, Blood Urea Nitrogen 13, Creatinine 1.1, Estimat Glomerular Filtration Rate > 60, Glucose Level 234H, Calcium Level 9.6, Vitamin D 25-Hydroxy [Pending], 25-Hydroxy Vitamin D2 [Pending], 25-Hydroxy Vitamin D3 [Pending] 10/12/20 05:19: POC Whole Blood Glucose 236H 10/12/20 05:58: Arterial Blood pH 7.406, Arterial Blood Partial Pressure CO2 46.4H, Arterial Blood Partial Pressure O2 72.9L, Arterial Blood HCO3 28.5H, Arterial Blood Oxygen Saturation 93.7L, Arterial Blood Base Excess 3.3H, Raz Test Positive 10/12/20 08:00: Arterial Blood pH 7.451H, Arterial Blood Partial Pressure CO2 38.2, Arterial Blood Partial Pressure O2 204.9H, Arterial Blood HCO3 26.0, Arterial Blood Oxygen Saturation 98.6, Arterial Blood Base Excess 2.0, Raz Test Positive 10/12/20 12:27: POC Whole Blood Glucose 282H Height (Feet): 5 Height (Inches): 10.00 Weight (Pounds): 180 General Appearance: mild distress EENT: other - On BiPAP Cardiovascular: tachycardia Respiratory/Chest: decreased breath sounds Abdomen: distended Eddie Nelson MD Oct 12, 2020 15:03
--- NOTE | 2020-10-12 17:08 | Internal Med Progress Note ---
Subjective Date of Service: Oct 12, 2020 Physician Name JordynTello Attending Physician Cirilo Rome MD Current Medications Medications (Trade) Dose Ordered Sig/Debi Route PRN Reason Start Time Stop Time Status Last Admin Dose Admin Acetaminophen (Tylenol) 650 mg Q4H PRN GT FEVER 10/03/20 01:15 11/02/20 01:14 10/11/20 05:41 Acetaminophen (Tylenol) 650 mg Q6H PRN GT Mild Pain (Pain Scale 1-3) 10/12/20 08:30 11/11/20 08:29 Ascorbic Acid (Vitamin C) 250 mg EVERY 12 HOURS GT 10/12/20 09:00 11/02/20 17:59 10/12/20 08:41 Chlorhexidine Gluconate (Jazmin-Hex 2%) 1 applic DAILY@1999 TOPIC 10/11/20 20:00 01/09/21 19:59 Dextrose (Dextrose 50%) 25 ml Q30M PRN IV Hypoglycemia 09/25/20 15:30 12/24/20 15:29 Dextrose (Dextrose 50%) 50 ml Q30M PRN IV Hypoglycemia 09/25/20 15:30 12/24/20 15:29 Heparin Sodium (Porcine) (Heparin 5000 units/ml) 5,000 units EVERY 12 HOURS SUBQ 09/25/20 09:00 11/09/20 08:59 10/12/20 08:42 Insulin Aspart (NovoLOG) Q6HR SUBQ 10/04/20 00:00 01/02/21 00:00 10/12/20 13:10 Meropenem 1 gm/ Sodium Chloride 55 ml @ 110 mls/hr Q8H IVPB 10/05/20 18:00 10/16/20 17:59 10/12/20 09:08 Midodrine (Pro-Amatine) 10 mg Q8HR GT 09/30/20 14:00 12/29/20 13:59 10/12/20 13:09 Ondansetron HCl (Zofran) 4 mg Q6H PRN IVP Nausea & Vomiting 09/25/20 00:15 10/25/20 00:14 Pantoprazole (Protonix) 40 mg Q12HR IVP 09/25/20 21:00 10/25/20 08:59 10/12/20 08:41 Polyethylene Glycol (Miralax) 17 gm DAILYPRN PRN ORAL Constipation 09/25/20 00:15 10/25/20 00:14 Allergies: Coded Allergies: No Known Allergies (Unverified , 08/27/19) ROS Limited/Unobtainable: Yes Subjective 80 YO M admitted with respiratory failure. Extubated 10/11/20; on BIPAP. Cover for Int Dusty-DR Rome. ICU Objective Last Vital Signs Date Time Temp Pulse Resp B/P (MAP) Pulse Ox O2 Delivery O2 Flow Rate FiO2 10/12/20 16:37 60 10/12/20 16:00 Bi-pap 10/12/20 16:00 95 27 117/78 (91) 100 10/12/20 12:00 99.1 10/12/20 06:30 15.0 Laboratory Tests Test 10/11/20 18:16 10/12/20 00:07 10/12/20 05:14 10/12/20 05:19 POC Whole Blood Glucose 219 MG/DL (74-106) H 205 MG/DL (74-106) H 236 MG/DL (74-106) H White Blood Count 13.0 K/UL (4.8-10.8) H Red Blood Count 3.84 M/UL (4.70-6.10) L Hemoglobin 10.1 G/DL (14.2-18.0) L Hematocrit 31.6 % (42.0-52.0) L Mean Corpuscular Volume 82 FL (80-99) Mean Corpuscular Hemoglobin 26.4 PG (27.0-31.0) L Mean Corpuscular Hemoglobin Concent 32.0 G/DL (32.0-36.0) Red Cell Distribution Width 16.1 % (11.6-14.8) H Platelet Count 567 K/UL (150-450) H Mean Platelet Volume 8.8 FL (6.5-10.1) Neutrophils (%) (Auto) 67.1 % (45.0-75.0) Lymphocytes (%) (Auto) 22.7 % (20.0-45.0) Monocytes (%) (Auto) 7.2 % (1.0-10.0) Eosinophils (%) (Auto) 1.4 % (0.0-3.0) Basophils (%) (Auto) 1.6 % (0.0-2.0) Sodium Level 149 MMOL/L (136-145) H Potassium Level 4.4 MMOL/L (3.5-5.1) Chloride Level 113 MMOL/L (98-107) H Carbon Dioxide Level 31 MMOL/L (21-32) Anion Gap 5 mmol/L (5-15) Blood Urea Nitrogen 13 mg/dL (7-18) Creatinine 1.1 MG/DL (0.55-1.30) Estimat Glomerular Filtration Rate > 60 mL/min (>60) Glucose Level 234 MG/DL (74-106) H Calcium Level 9.6 MG/DL (8.5-10.1) Vitamin D 25-Hydroxy Pending 25-Hydroxy Vitamin D2 Pending 25-Hydroxy Vitamin D3 Pending Test 10/12/20 05:58 10/12/20 08:00 10/12/20 12:27 Arterial Blood pH 7.406 (7.350-7.450) 7.451 (7.350-7.450) Arterial Blood Partial Pressure CO2 46.4 mmHg (35.0-45.0) H 38.2 mmHg (35.0-45.0) Arterial Blood Partial Pressure O2 72.9 mmHg (75.0-100.0) L 204.9 mmHg (75.0-100.0) H Arterial Blood HCO3 28.5 mmol/L (22.0-26.0) H 26.0 mmol/L (22.0-26.0) Arterial Blood Oxygen Saturation 93.7 % (95-100) L 98.6 % (95-100) Arterial Blood Base Excess 3.3 (-2-2) H 2.0 (-2-2) Raz Test Positive Positive POC Whole Blood Glucose 282 MG/DL (74-106) H Intake and Output 10/11/20 10/12/20 19:00 07:00 Intake Total 830 ml 775 ml Output Total 415 ml 635 ml Balance 415 ml 140 ml Intake Free Water 60 ml IV Total 110 ml 55 ml Tube Feeding 660 ml 660 ml Other 60 ml Output Urine Total 415 ml 635 ml # Bowel Movements 1 Objective PHYSICAL EXAMINATION: GENERAL: The patient is well-developed and well-nourished male, who is intubated and sedated. HEENT: Eyes, pupils are equal responsive to light and accommodation. Extraocular movements are intact. NECK: Supple without lymphadenopathy. CHEST: BIPAP; Decreased breath sounds bilateral bases, otherwise without wheezes or rales. CARDIOVASCULAR: Regular rate. S1 and S2 normal without murmurs, rubs, or gallops. ABDOMEN: Soft, nontender, and nondistended. Positive bowel sounds. No evidence of hepatosplenomegaly. Currently, no rebound or guarding noted. EXTREMITIES: Negative for clubbing, cyanosis, or edema. RECTAL/GENITAL: Not performed. NEUROLOGIC: Unable to assess Assessment/Plan Assessment/Plan ASSESSMENT: This is a 80-year-old male. 1. Respiratory failure. 2. Bilateral pneumonia. 3. Hypertension. 4. Diabetes type 2. 5. Hypercholesterolemia. 6. Parkinson disease. 7. COVID-19 negative. 8. Ulcerative proctitis. 9. Benign prostatic hypertrophy. 10. Gastroesophageal reflux disease. 11. Urinary tract infection=proteus mirabilis 12. Sepsis=coag neg staph TREATMENT: 1. Pneumonia/respiratory failure. Infectious diseases = Drs. Harris/Pj. A Pulmonary/Critical care= Dr. Latanya Mckeon. S/P extubation 10/11/20; on BIPAP ABX= vancomycin, amikacin, and ertapenem. Follow recommendation of Infectious Diseases. 2. Urinary tract infection. ABX= Meropenem and vancomycin. An Infectious Disease consultation has been obtained with Dr. Harris. 3. Hypertension. The patient is currently hypotensive. 4. Diabetes type 2. NovoLog sliding scale has been instituted. 5. Hypercholesterolemia. Continue simvastatin as above. 6. Parkinson disease. 7. Ulcerative proctitis. 8. Benign prostatic hypertrophy. 9. Gastroesophageal reflux disease. 10. Dysphagia. The patient is status post PEG placement. Tello Cobb MD Oct 12, 2020 17:08
--- NOTE | 2020-10-12 17:57 | Surgery Progress Note ---
Surgery Progress Note Subjective Additional Comments on bipap ill appearing no n/v Objective Last 24 Hour Vital Signs Date Time Temp Pulse Resp B/P (MAP) Pulse Ox O2 Delivery O2 Flow Rate FiO2 10/12/20 17:00 99 26 121/83 (96) 100 10/12/20 16:37 60 10/12/20 16:00 Bi-pap 10/12/20 16:00 80 10/12/20 16:00 95 27 117/78 (91) 100 10/12/20 15:56 86 10/12/20 15:00 93 32 97/56 (70) 100 10/12/20 14:30 104 30 100 60 10/12/20 14:00 117 26 109/63 (78) 100 10/12/20 13:00 107 23 95/49 (64) 100 10/12/20 12:00 99.1 108 27 107/76 (86) 100 10/12/20 12:00 100 10/12/20 12:00 Bi-pap 10/12/20 12:00 80 10/12/20 11:32 80 10/12/20 11:20 119 22 100 80 10/12/20 11:00 113 23 104/58 (73) 100 10/12/20 10:00 123 25 111/58 (75) 100 10/12/20 09:00 137 38 111/50 (70) 100 10/12/20 08:00 100 10/12/20 08:00 100.0 140 38 113/70 (84) 10/12/20 08:00 Bi-pap 10/12/20 07:58 140 10/12/20 07:30 100 10/12/20 07:00 133 40 100/59 (73) 98 10/12/20 06:47 132 18 100 Bi-Pap 100 10/12/20 06:40 132 38 99 100 10/12/20 06:30 100 Non-Rebreather 15.0 100 10/12/20 06:00 134 38 137/87 (104) 100 10/12/20 05:00 127 34 129/62 (84) 88 10/12/20 04:00 99.0 118 30 138/63 (88) 94 10/12/20 04:00 Nasal Cannula 4.0 10/12/20 03:41 123 10/12/20 03:00 121 27 129/59 (82) 98 12/30/20 02:00 103 23 114/58 (76) 100 10/12/20 01:00 114 28 120/80 (93) 100 10/12/20 00:00 Nasal Cannula 4.0 10/12/20 00:00 98.1 123 28 118/76 (90) 100 10/11/20 23:19 117 10/11/20 23:00 111 26 122/64 (83) 100 10/11/20 22:00 123 34 122/58 (79) 82 10/11/20 21:00 121 22 130/62 (84) 96 10/11/20 20:00 Nasal Cannula 4.0 10/11/20 20:00 98.9 107 23 119/53 (75) 99 10/11/20 19:51 93 Venturi Mask 15.0 55 10/11/20 19:28 108 10/11/20 19:00 117 29 124/58 (80) 100 10/11/20 18:00 123 36 138/66 (90) 93 I&O Intake and Output 10/11/20 10/12/20 19:00 07:00 Intake Total 830 ml 775 ml Output Total 415 ml 635 ml Balance 415 ml 140 ml Intake Free Water 60 ml IV Total 110 ml 55 ml Tube Feeding 660 ml 660 ml Other 60 ml Output Urine Total 415 ml 635 ml # Bowel Movements 1 Dressing: saturated Cardiovascular: RSR Respiratory: decreased breath sounds Abdomen: soft, non-tender, present bowel sounds Extremities: no tenderness, no cyanosis, other Laboratory Tests Test 10/11/20 18:16 10/12/20 00:07 10/12/20 05:14 10/12/20 05:19 POC Whole Blood Glucose 219 MG/DL (74-106) H 205 MG/DL (74-106) H 236 MG/DL (74-106) H White Blood Count 13.0 K/UL (4.8-10.8) H Red Blood Count 3.84 M/UL (4.70-6.10) L Hemoglobin 10.1 G/DL (14.2-18.0) L Hematocrit 31.6 % (42.0-52.0) L Mean Corpuscular Volume 82 FL (80-99) Mean Corpuscular Hemoglobin 26.4 PG (27.0-31.0) L Mean Corpuscular Hemoglobin Concent 32.0 G/DL (32.0-36.0) Red Cell Distribution Width 16.1 % (11.6-14.8) H Platelet Count 567 K/UL (150-450) H Mean Platelet Volume 8.8 FL (6.5-10.1) Neutrophils (%) (Auto) 67.1 % (45.0-75.0) Lymphocytes (%) (Auto) 22.7 % (20.0-45.0) Monocytes (%) (Auto) 7.2 % (1.0-10.0) Eosinophils (%) (Auto) 1.4 % (0.0-3.0) Basophils (%) (Auto) 1.6 % (0.0-2.0) Sodium Level 149 MMOL/L (136-145) H Potassium Level 4.4 MMOL/L (3.5-5.1) Chloride Level 113 MMOL/L (98-107) H Carbon Dioxide Level 31 MMOL/L (21-32) Anion Gap 5 mmol/L (5-15) Blood Urea Nitrogen 13 mg/dL (7-18) Creatinine 1.1 MG/DL (0.55-1.30) Estimat Glomerular Filtration Rate > 60 mL/min (>60) Glucose Level 234 MG/DL (74-106) H Calcium Level 9.6 MG/DL (8.5-10.1) Vitamin D 25-Hydroxy Pending 25-Hydroxy Vitamin D2 Pending 25-Hydroxy Vitamin D3 Pending Test 10/12/20 05:58 10/12/20 08:00 10/12/20 12:27 Arterial Blood pH 7.406 (7.350-7.450) 7.451 (7.350-7.450) Arterial Blood Partial Pressure CO2 46.4 mmHg (35.0-45.0) H 38.2 mmHg (35.0-45.0) Arterial Blood Partial Pressure O2 72.9 mmHg (75.0-100.0) L 204.9 mmHg (75.0-100.0) H Arterial Blood HCO3 28.5 mmol/L (22.0-26.0) H 26.0 mmol/L (22.0-26.0) Arterial Blood Oxygen Saturation 93.7 % (95-100) L 98.6 % (95-100) Arterial Blood Base Excess 3.3 (-2-2) H 2.0 (-2-2) Raz Test Positive Positive POC Whole Blood Glucose 282 MG/DL (74-106) H Plan Problems: (1) Hypoxia (2) Severe sepsis Assessment & Plan: leukocytosis lactic acidosis anemia renal insufficiency on support in ICU dressings changed and care plan initiated cont abx trend labs if fluids am imaging ordered remains febrile cont abx cooling measures worsening respiratory cont support CT noted - unable to obtain consent for ct. medically necessary to ensure no intraabd process. recommend proceed with ct in patients best interest weaning possible trial extubation Non-Blanchable erythema noted to R and L earlobes. Erythematous, scaly pimple- like rash,some of which are scaly and others small papules noted to R and L axillae, upper R and L chest and back ,R and L groin areas. Pt observed to persistently scratch affected areas described. Incontinence Associated Dermatitis Buttocks, R and L Ischial tuberosities are erythematous,denuded with shearing and scattered satellite lesions. Per staff pt frequently removes or dislodges Condom cath. R Heel is boggy with non-blanchable erythema. L Heel is boggy with Non-Blanchable erythema. Pt presented on admission with Multiple Pressure Injuries. Sacral DTPI which extends into R and L Gluteal cheeks and is partially opened upper R gluteus (L)14cm x (W)15cm. DTPI noted within hypertrophic scar from previous Pressure injury. Base of wound is purpuric at rm cleft ,and indurated. Non-Blanchable erythema with additional shearing periwound. An area of induration with darker skin tone noted to L Ischium. Darker skin tone without induration R Ischium. Scrotum is erythematous and swollen. DTPI L Heel and Plantar L Heel(L)4cm x (W)3.5cm. Base of Pressure Injury roca colored Blister with darker center. Periwound is fluctuant with non-Blanchable erythema. DTPI R Heel (L)2.7cm x (W)4cm. Non-Blanchable erythema without induration/fluctuance R Hallux. Non-Blanchable erythema without induration/fluctuance L Hallux. Tx.Plan:Apply Cavilon Skin Barrier to both R and L ears.(Pad Oxygen Tubing as Needed.) Apply Moisture Barrier Paste to bilat groin and bilat ischial tuberosities with eqach Incontinence care. Apply Cavilon Skin Barrier to both heels. Cover each heel with Optifoam drsg. Change every 7 days and prn. Cleanse Sacral wound with Saline. Apply Therahoney. Apply Moisture Barrier Paste periwound. Cover with Optifoam drsg. Change every 3 days and prn. Apply Moisture Barrier Paste to Scrotum,R and L ischial tuberosities with each incontinence care. Apply Cavilon Skin Barrier to R and L Hallux. Cover each site with Optifoam drsgs. Change every 7 days and prn. Reposition at least every 2hours or as tolerated. Off-load heels with pillow. APM/ALEK Mattress overlay improving cont current care tube site okay DAILY ESTIMATED NEEDS: Needs based on Critical care, DM, Wound/ 62.73kg 22-30 kcals/kg 0230-5087 total kcals 1.25-2 g protein/kg 78-125 g total protein 25-30 mL/kg 4031-3457 total fluid mLs NUTRITION DIAGNOSIS: * Swallowing difficulty R/T dysphagia as evidenced by Pt is GT dep, currently orally intubated, off pressor support, on GT feeds. CURRENT TF:NPO ENTERAL NUTRITION RECOMMENDATIONS: Glucerna 1.2 @ 55ml/hr x 24 hrs to provide 1320ml, 1584kcal, 79g prot, 1063ml free water * Maintain current TF: meets 100 % est kcal/prot needs * HOB over 30 degrees * H2O flush of 180ml q 6hrs ADDITIONAL RECOMMENDATIONS: * Per SNF: HT=5'7" WT= 138lbs (as of Sep 13, 2020) * Monitor hemodynamic stability: NE @ 8mcg-> now off * Wound healing: TF rec @ goal provides 100% RDI add Vit C 500mg QD + Terrance BID via TF * Monitor lytes, replete as needed * Rec long acting insulin for improved BG control . (3) Dehydration (4) Hypernatremia (5) Clostridium difficile colitis (6) Staphylococcus aureus bacteremia (7) Hip fracture, left (8) Diabetes mellitus (9) History of hypertension (10) Severe protein-calorie malnutrition (11) Acute encephalopathy (12) Pressure Ulcer Of Sacral Region, Unstageable (13) Feeding by G-tube (14) Abdominal distention (15) Multiple drug resistant organism (MDRO) culture positive (16) Sepsis (17) History of CVA (cerebrovascular accident) (18) Parkinson disease James Breen Oct 12, 2020 17:57
[2020-10-13] VITALS (25 sets, daily range): BP systolic 93–135; BP diastolic 40–72
[2020-10-13] MEDS: Meropenem 1 GM in NS 55 ML IVPB SCH ×3 (01:30→18:36)
[2020-10-13] MEDS: Midodrine 10mg tab GT SCH ×3 (06:00→21:07)
[2020-10-13] MEDS: NovoLOG Insulin Flexpen SUBQ SCH ×5 (06:12→23:02)
[2020-10-13 06:16] LABS: BASOPHILS % (AUTO) 1.1 % (0.0-2.0); EOSINOPHILS % (AUTO) 2.7 % (0.0-3.0); HEMATOCRIT 28.4 % (42.0-52.0); HEMOGLOBIN 8.7 G/DL (14.2-18.0); LYMPHOCYTES % (AUTO) 19.6 % (20.0-45.0); MEAN CORPUSCULAR VOLUME 88 FL (80-99); MONOCYTES % (AUTO) 8.3 % (1.0-10.0); NEUTROPHILS % (AUTO) 68.3 % (45.0-75.0); PLATELET COUNT 540 K/UL (150-450); RED BLOOD COUNT 3.23 M/UL (4.70-6.10); RED CELL DISTRIBUTION WIDTH 16.5 % (11.6-14.8); WHITE BLOOD COUNT 14.2 K/UL (4.8-10.8)
[2020-10-13] MEDS: Acetaminophen 650mg/20.3ml GT PRN (06:23)
[2020-10-13 06:48] LABS: ALANINE AMINOTRANSFERASE 10 U/L (12-78); ALBUMIN 1.6 G/DL (3.4-5.0); ALBUMIN/GLOBULIN RATIO 0.3 (1.0-2.7); ALKALINE PHOSPHATASE 191 U/L (46-116); ANION GAP 4 mmol/L (5-15); ASPARTATE AMINO TRANSFERASE 19 U/L (15-37); BILIRUBIN,TOTAL 0.2 MG/DL (0.2-1.0); BLOOD UREA NITROGEN 18 mg/dL (7-18); CALCIUM 9.5 MG/DL (8.5-10.1); CARBON DIOXIDE 33 MMOL/L (21-32); CHLORIDE 115 MMOL/L (98-107); CREATININE 1.3 MG/DL (0.55-1.30); PHOSPHORUS 2.3 MG/DL (2.5-4.9); POTASSIUM 4.2 MMOL/L (3.5-5.1); SODIUM 152 MMOL/L (136-145)
[2020-10-13] MEDS ORDERED: Tubing IV Secondary IV ONE (09:00)
[2020-10-13] MEDS ORDERED: Tubing IV Blood Pump IV ONE (09:00)
[2020-10-13] MEDS ORDERED: NS 275ml ONE (09:00)
[2020-10-13] MEDS ORDERED: Vasopressin 100 UNITS in NS 95 ML IV SCH (09:15)
--- NOTE | 2020-10-13 09:22 | Infectious Diseases Prog Note ---
Assessment/Plan 80yo M with: Fevers Leukocytosis, improving Resp secretions Resp failure on vent 10/06 BCx NTD CXR: Improving bilateral interstitial and airspace opacities with mild persistent left lower lobe airspace disease. 10/08 Resp cx +Kleb pna, ronquillo-S 10/10 CT chest/Abd/pelvis: Bilateral dense lower lobe consolidation, presumab ly representing pneumonia, nonspecific as regards appearance. More ill-defined reticular upper lobe opacities are probably related. Somewhat heterogeneous perfusion of the left kidney. This could indicate nephritis, although appearance is somewhat similar to the previous exam and this could just be baseline appearance for this patient. 10/11 BCx NTD UA 10-15 WBC, UCx neg CONS bacteremia, recurrent 09/24 BCx 2/2 +CONS 09/25 BCx neg 09/28 BCx +CONS 09/30 BCx NTD Sepsis, septic shock GPC bacteremia UTI 2/ ESBL P.mirabilis Pneumonia / ESBL P.mirabilis Febrile to 105, improving Leukocytosis to 15, improving 09/24 BCx 11/15 CONS UA 20-30 WBC, UCx ESBL P.mirabilis COVID rapid test neg, PCR neg CXR: 1. Coarse bibasilar interstitial lung markings, may represent atypical infectious process such as viral pneumonia versus pulmonary edema. 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 [facility] will continue to follow. Subjective Allergies: Coded Allergies: No Known Allergies (Unverified , 08/27/19) AF WBC stable at 14 NAD On BiPAP still Objective Last 24 Hour Vital Signs Date Time Temp Pulse Resp B/P (MAP) Pulse Ox O2 Delivery O2 Flow Rate FiO2 10/13/20 07:00 99.1 89 22 97/45 (62) 100 10/13/20 06:53 99.1 10/13/20 06:00 100.0 91 21 113/56 (75) 100 10/13/20 05:00 106 25 123/55 (77) 100 10/13/20 04:00 89 22 100/67 (78) 100 10/13/20 04:00 60 10/13/20 04:00 Bi-pap 10/13/20 04:00 89 10/13/20 03:00 94 22 108/45 (66) 100 10/13/20 02:02 101 18 100 60 10/13/20 02:00 87 22 106/64 (78) 100 10/13/20 01:00 98 20 111/56 (74) 100 10/13/20 00:00 99.0 86 20 110/54 (72) 100 10/13/20 00:00 60 10/13/20 00:00 67 10/13/20 00:00 Bi-pap 10/12/20 23:00 97 25 109/47 (67) 100 10/12/20 22:00 86 21 122/62 (82) 100 10/12/20 21:00 99 23 107/53 (71) 100 10/12/20 20:00 66 10/12/20 20:00 Bi-pap 10/12/20 20:00 98.9 111 28 99/47 (64) 100 10/12/20 19:32 94 25 100 60 10/12/20 19:00 94 24 115/61 (79) 100 10/12/20 18:00 112 25 108/57 (74) 100 10/12/20 17:00 99 26 121/83 (96) 100 10/12/20 16:37 60 10/12/20 16:00 Bi-pap 10/12/20 16:00 80 10/12/20 16:00 95 27 117/78 (91) 100 10/12/20 15:56 86 10/12/20 15:00 93 32 97/56 (70) 100 12/30/20 14:30 104 30 100 60 10/12/20 14:00 117 26 109/63 (78) 100 10/12/20 13:00 107 23 95/49 (64) 100 10/12/20 12:00 99.1 108 27 107/76 (86) 100 10/12/20 12:00 100 10/12/20 12:00 Bi-pap 10/12/20 12:00 80 10/12/20 11:32 80 10/12/20 11:20 119 22 100 80 10/12/20 11:00 113 23 104/58 (73) 100 10/12/20 10:00 123 25 111/58 (75) 100 Height (Feet): 5 Height (Inches): 10.00 Weight (Pounds): 180 Gen: NAD HEENT: NCAT Pulm: BL chest rise Abd: Non-distended Ext: No c/c/e Skin: No visible rashes Neuro: Awake Microbiology Date/Time Source Procedure Growth Status 10/11/20 11:00 Straight Cath Urine Culture - Preliminary NO GROWTH Resulted Laboratory Tests Test 10/12/20 12:27 10/13/20 05:00 10/13/20 08:06 POC Whole Blood Glucose 282 MG/DL (74-106) H White Blood Count 14.2 K/UL (4.8-10.8) H Red Blood Count 3.23 M/UL (4.70-6.10) L Hemoglobin 8.7 G/DL (14.2-18.0) L Hematocrit 28.4 % (42.0-52.0) L Mean Corpuscular Volume 88 FL (80-99) Mean Corpuscular Hemoglobin 26.8 PG (27.0-31.0) L Mean Corpuscular Hemoglobin Concent 30.5 G/DL (32.0-36.0) L Red Cell Distribution Width 16.5 % (11.6-14.8) H Platelet Count 540 K/UL (150-450) H Mean Platelet Volume 9.2 FL (6.5-10.1) Neutrophils (%) (Auto) 68.3 % (45.0-75.0) Lymphocytes (%) (Auto) 19.6 % (20.0-45.0) L Monocytes (%) (Auto) 8.3 % (1.0-10.0) Eosinophils (%) (Auto) 2.7 % (0.0-3.0) Basophils (%) (Auto) 1.1 % (0.0-2.0) Sodium Level 152 MMOL/L (136-145) H Potassium Level 4.2 MMOL/L (3.5-5.1) Chloride Level 115 MMOL/L (98-107) H Carbon Dioxide Level 33 MMOL/L (21-32) H Anion Gap 4 mmol/L (5-15) L Blood Urea Nitrogen 18 mg/dL (7-18) Creatinine 1.3 MG/DL (0.55-1.30) Estimat Glomerular Filtration Rate > 60 mL/min (>60) Glucose Level 238 MG/DL (74-106) H Calcium Level 9.5 MG/DL (8.5-10.1) Phosphorus Level 2.3 MG/DL (2.5-4.9) L Magnesium Level 2.3 MG/DL (1.8-2.4) Total Bilirubin 0.2 MG/DL (0.2-1.0) Aspartate Amino Transf (AST/SGOT) 19 U/L (15-37) Alanine Aminotransferase (ALT/SGPT) 10 U/L (12-78) L Alkaline Phosphatase 191 U/L (46-116) H Total Protein 7.6 G/DL (6.4-8.2) Albumin 1.6 G/DL (3.4-5.0) L Globulin 6.0 g/dL Albumin/Globulin Ratio 0.3 (1.0-2.7) L Arterial Blood pH 7.469 (7.350-7.450) Arterial Blood Partial Pressure CO2 43.3 mmHg (35.0-45.0) Arterial Blood Partial Pressure O2 212.0 mmHg (75.0-100.0) H Arterial Blood HCO3 30.7 mmol/L (22.0-26.0) H Arterial Blood Oxygen Saturation 99.7 % (95-100) Arterial Blood Base Excess 6.4 (-2-2) H Raz Test Positive Current Medications Medications (Trade) Dose Ordered Sig/Debi Route PRN Reason Start Time Stop Time Status Last Admin Dose Admin Acetaminophen (Tylenol) 650 mg Q4H PRN GT FEVER 10/03/20 01:15 11/02/20 01:14 10/13/20 06:23 Acetaminophen (Tylenol) 650 mg Q6H PRN GT Mild Pain (Pain Scale 1-3) 10/12/20 08:30 11/11/20 08:29 Ascorbic Acid (Vitamin C) 250 mg EVERY 12 HOURS GT 10/12/20 09:00 11/02/20 17:59 10/12/20 20:54 Dextrose (Dextrose 50%) 25 ml Q30M PRN IV Hypoglycemia 09/25/20 15:30 12/24/20 15:29 Dextrose (Dextrose 50%) 50 ml Q30M PRN IV Hypoglycemia 09/25/20 15:30 12/24/20 15:29 Heparin Sodium (Porcine) (Heparin 5000 units/ml) 5,000 units EVERY 12 HOURS SUBQ 09/25/20 09:00 11/09/20 08:59 10/12/20 20:57 Insulin Aspart (NovoLOG) Q6HR SUBQ 10/04/20 00:00 01/02/21 00:00 10/13/20 06:12 Meropenem 1 gm/ Sodium Chloride 55 ml @ 110 mls/hr Q8H IVPB 10/05/20 18:00 10/16/20 17:59 10/13/20 01:30 Midodrine (Pro-Amatine) 10 mg Q8HR GT 09/30/20 14:00 12/29/20 13:59 10/13/20 06:00 Ondansetron HCl (Zofran) 4 mg Q6H PRN IVP Nausea & Vomiting 09/25/20 00:15 10/25/20 00:14 Pantoprazole (Protonix) 40 mg Q12HR IVP 09/25/20 21:00 10/25/20 08:59 10/12/20 20:54 Polyethylene Glycol (Miralax) 17 gm DAILYPRN PRN ORAL Constipation 09/25/20 00:15 10/25/20 00:14 Marixa Oliva M.D. Oct 13, 2020 09:22
--- NOTE | 2020-10-13 10:28 | Nephrology Progress Note ---
Assessment/Plan Problem List: (1) KELLY (acute kidney injury) (2) Dehydration (3) Hypernatremia (4) Severe sepsis (5) History of CVA (cerebrovascular accident) (6) Parkinson disease (7) Acute respiratory failure (8) Elevated lipase Assessment KELLY, Hypernatremia, dehydration, free water deficit Sepsis Acute respiratory failure requiring intubation and mechanical ventilation Diabetes mellitus [id number] GT feeding History of CVA History of hypertension Parkinson's disease Elevated lipase Plan October 13: Patient on BiPAP. Gradually improving. Labs reviewed. Renal parameters electrolytes stable. Will give 1 L of D5W for mildly elevated serum sodium. Continue per consultants. October 12: Patient extubated yesterday. Currently on BiPAP. Labs reviewed. Remains full code. Stable from renal standpoint view. Continue post extubation pulmonary care. October 11: Labs reviewed. Renal parameters stable. Remains intubated. Full code. Continue per consultants. October 10: Labs reviewed. Renal parameters stable. Continue per consultants. Continue to monitor renal parameters. October 09: Labs reviewed. K-Phos and 1 L D5W ordered. Continue per consultants. Continue to monitor electrolytes and renal parameters. October 08: No CHEM panel drawn today. Will check lab tomorrow. Continue per consultants. October 07: Labs reviewed. Abnormal electrolytes addressed. Bolus of 500 cc D5W for elevated serum sodium given. Continue to monitor electrolytes and renal parameters. October 06: Labs reviewed. K-Phos replaced. Will give another liter of D5W. Continue to monitor electrolytes and renal parameters. October 05: Labs reviewed. Serum sodium rising. 1 L D5W IV ordered. Continue to monitor electrolytes. Continue per consultants. October 04: No CHEM panel was done today. Patient remain intubated on ve ntilator and full code. We will order labs tomorrow. Continue per consultants. October 03: Discussed with RN. Labs are reviewed. Potassium and phosphate replacement ordered. Continue per consultants. Patient remains full code intubated on ventilator. Serum creatinine up to 1.5. Continue to monitor renal parameters. October 02: Remains in ICU and intubated. Labs reviewed. Serum creatinine 1.3. Serum sodium slightly elevated. Continue to monitor renal parameters and electrolytes. October 01: Seen in ICU. Discussed with RN. No chemistry panel done today. Blood pressure hovering around 100 systolic. Will check labs tomorrow. Continue per consultants. September 30: Labs reviewed. Renal parameters stable. Blood pressure hovering around 90s systolic. We will add midodrine through GT tube. Continue per consultants. September 29: Labs reviewed. Serum creatinine down to 1.3 and electrolytes reviewed. Abnormal electrolytes addressed. Continue per consultants. September 28: Labs reviewed. Creatinine 1.6 unchanged. Hypernatremia persists. Will give 1 L of D5W. Continue to monitor renal parameters and electrolytes. Continue per consultants. September 27: Labs reviewed. Serum sodium lowering. Serum creatinine lowering. Blood sugar somewhat better controlled. Patient continues to be on free water through tube feeding. Continue to monitor renal parameters and electrolytes. Abnormal electrolytes addressed. September 26: IV fluids stopped. Patient receiving free water reviewed NG tube. Patient full code. Intubated on ventilator. Discussed with JOHNNY Christensen. Continue to monitor renal parameters. Serum creatinine lower but abnormal electrolyte persists and was addressed. Previously: IV fluid half-normal saline 125 cc an hour Albumin fluid challenge Monitor electrolytes Monitor renal parameters Hold blood pressure medication since blood pressure low Per orders, per consultants Subjective ROS Limited/Unobtainable: Yes Objective Objective Last 24 Hour Vital Signs Date Time Temp Pulse Resp B/P (MAP) Pulse Ox O2 Delivery O2 Flow Rate FiO2 10/13/20 10:00 88 19 93/53 (66) 100 10/13/20 09:00 81 20 108/40 (62) 100 10/13/20 08:00 84 20 109/41 (63) 100 10/13/20 08:00 85 10/13/20 07:35 78 19 100 60 10/13/20 07:00 99.1 89 22 97/45 (62) 100 10/13/20 06:53 99.1 10/13/20 06:00 100.0 91 21 113/56 (75) 100 10/13/20 05:00 106 25 123/55 (77) 100 10/13/20 04:00 89 22 100/67 (78) 100 10/13/20 04:00 60 10/13/20 04:00 Bi-pap 10/13/20 04:00 89 10/13/20 03:00 94 22 108/45 (66) 100 10/13/20 02:02 101 18 100 60 10/13/20 02:00 87 22 106/64 (78) 100 10/13/20 01:00 98 20 111/56 (74) 100 10/13/20 00:00 99.0 86 20 110/54 (72) 100 10/13/20 00:00 60 10/13/20 00:00 67 10/13/20 00:00 Bi-pap 10/12/20 23:00 97 25 109/47 (67) 100 10/12/20 22:00 86 21 122/62 (82) 100 10/12/20 21:00 99 23 107/53 (71) 100 10/12/20 20:00 66 10/12/20 20:00 Bi-pap 10/12/20 20:00 98.9 111 28 99/47 (64) 100 10/12/20 19:32 94 25 100 60 10/12/20 19:00 94 24 115/61 (79) 100 10/12/20 18:00 112 25 108/57 (74) 100 10/12/20 17:00 99 26 121/83 (96) 100 10/12/20 16:37 60 10/12/20 16:00 Bi-pap 10/12/20 16:00 80 10/12/20 16:00 95 27 117/78 (91) 100 10/12/20 15:56 86 10/12/20 15:00 93 32 97/56 (70) 100 10/12/20 14:30 104 30 100 60 10/12/20 14:00 117 26 109/63 (78) 100 10/12/20 13:00 107 23 95/49 (64) 100 10/12/20 12:00 99.1 108 27 107/76 (86) 100 10/12/20 12:00 100 10/12/20 12:00 Bi-pap 10/12/20 12:00 80 10/12/20 11:32 80 10/12/20 11:20 119 22 100 80 10/12/20 11:00 113 23 104/58 (73) 100 Intake and Output 10/12/20 10/13/20 19:00 07:00 Intake Total 830 ml 660 ml Output Total 370 ml 360 ml Balance 460 ml 300 ml IV Total 110 ml Tube Feeding 660 ml 660 ml Other 60 ml Output Urine Total 370 ml 360 ml Laboratory Tests 10/12/20 12:27: POC Whole Blood Glucose 282H 10/13/20 05:00: White Blood Count 14.2H, Red Blood Count 3.23L, Hemoglobin 8.7L, Hematocrit 28.4L, Mean Corpuscular Volume 88, Mean Corpuscular Hemoglobin 26.8L, Mean Corpuscular Hemoglobin Concent 30.5L, Red Cell Distribution Width 16.5H, Platelet Count 540H, Mean Platelet Volume 9.2, Neutrophils (%) (Auto) 68.3, Lymphocytes (%) (Auto) 19.6L, Monocytes (%) (Auto) 8.3, Eosinophils (%) (Auto) 2.7, Basophils (%) (Auto) 1.1, Sodium Level 152H, Potassium Level 4.2, Chloride Level 115H, Carbon Dioxide Level 33H, Anion Gap 4L, Blood Urea Nitrogen 18, Creatinine 1.3, Estimat Glomerular Filtration Rate > 60, Glucose Level 238H, Calcium Level 9.5, Phosphorus Level 2.3L, Magnesium Level 2.3, Total Bilirubin 0.2, Aspartate Amino Transf (AST/SGOT) 19, Alanine Aminotransferase (ALT/SGPT) 10L, Alkaline Phosphatase 191H, Total Protein 7.6, Albumin 1.6L, Globulin 6.0, Albumin/Globulin Ratio 0.3L 10/13/20 08:06: Arterial Blood pH 7.469H, Arterial Blood Partial Pressure CO2 43.3, Arterial Blood Partial Pressure O2 212.0H, Arterial Blood HCO3 30.7H, Arterial Blood Oxygen Saturation 99.7, Arterial Blood Base Excess 6.4H, Raz Test Positive Height (Feet): 5 Height (Inches): 10.00 Weight (Pounds): 180 General Appearance: no apparent distress EENT: other - On BiPAP Cardiovascular: tachycardia Respiratory/Chest: decreased breath sounds Abdomen: distended Eddie Nelson MD Oct 13, 2020 10:28
[2020-10-13] MEDS: Ascorbic Acid 500mg tab GT SCH ×2 (10:37→19:59)
[2020-10-13] MEDS: Pantoprazole Inj IVP SCH ×2 (10:37→20:00)
[2020-10-13] MEDS: Heparin 5000 units/ml inj SUBQ SCH ×2 (10:44→20:00)
--- NOTE | 2020-10-13 11:36 | Diagnostic Imaging Report ---
Indication: Dyspnea Technique: One view of the chest Comparison: 10/12/2020 Findings: Interim partial improvement of previously demonstrated left basilar infiltrate. Right basilar infiltrate is unchanged. Heart size is normal. Impression: Improving left and stable right basilar infiltrates
--- NOTE | 2020-10-13 14:23 | General Progress Note ---
Progress Note Progress Note Bioethics Committee Asked to comment on code status and appropriateness of further aggressive care in the 80 year old with multiple medicalproblems and organ systems involved such that it approaches the definition of futile care. DNR status is entirely appropriate. Ant Biggs M.D. for the Bioethics Committee Ant Biggs MD Oct 13, 2020 14:23
--- NOTE | 2020-10-13 14:41 | Surgery Progress Note ---
Surgery Progress Note Subjective Additional Comments febrile labs noted on bipap ill appearing concerning for possible reintubation Objective Last 24 Hour Vital Signs Date Time Temp Pulse Resp B/P (MAP) Pulse Ox O2 Delivery O2 Flow Rate FiO2 10/13/20 14:00 94 23 117/46 (69) 100 10/13/20 13:00 88 23 118/72 (87) 100 10/13/20 12:00 83 27 132/63 (86) 100 10/13/20 12:00 60 10/13/20 12:00 84 10/13/20 11:00 84 19 116/57 (76) 100 10/13/20 10:00 88 19 93/53 (66) 100 10/13/20 09:00 81 20 108/40 (62) 100 10/13/20 08:00 84 20 109/41 (63) 100 10/13/20 08:00 85 10/13/20 07:35 78 19 100 60 10/13/20 07:00 99.1 89 22 97/45 (62) 100 10/13/20 06:53 99.1 10/13/20 06:00 100.0 91 21 113/56 (75) 100 10/13/20 05:00 106 25 123/55 (77) 100 10/13/20 04:00 89 22 100/67 (78) 100 10/13/20 04:00 60 10/13/20 04:00 Bi-pap 10/13/20 04:00 89 10/13/20 03:00 94 22 108/45 (66) 100 10/13/20 02:02 101 18 100 60 10/13/20 02:00 87 22 106/64 (78) 100 10/13/20 01:00 98 20 111/56 (74) 100 10/13/20 00:00 99.0 86 20 110/54 (72) 100 10/13/20 00:00 60 10/13/20 00:00 67 10/13/20 00:00 Bi-pap 10/12/20 23:00 97 25 109/47 (67) 100 10/12/20 22:00 86 21 122/62 (82) 100 10/12/20 21:00 99 23 107/53 (71) 100 10/12/20 20:00 66 10/12/20 20:00 Bi-pap 10/12/20 20:00 98.9 111 28 99/47 (64) 100 10/12/20 19:32 94 25 100 60 10/12/20 19:00 94 24 115/61 (79) 100 10/12/20 18:00 112 25 108/57 (74) 100 10/12/20 17:00 99 26 121/83 (96) 100 10/12/20 16:37 60 10/12/20 16:00 Bi-pap 10/12/20 16:00 80 10/12/20 16:00 95 27 117/78 (91) 100 10/12/20 15:56 86 10/12/20 15:00 93 32 97/56 (70) 100 I&O Intake and Output 10/12/20 10/13/20 19:00 07:00 Intake Total 830 ml 660 ml Output Total 370 ml 360 ml Balance 460 ml 300 ml IV Total 110 ml Tube Feeding 660 ml 660 ml Other 60 ml Output Urine Total 370 ml 360 ml Dressing: saturated Cardiovascular: RSR Respiratory: decreased breath sounds Abdomen: soft, non-tender, present bowel sounds Extremities: no tenderness, no cyanosis Laboratory Tests Test 10/13/20 05:00 10/13/20 08:06 White Blood Count 14.2 K/UL (4.8-10.8) H Red Blood Count 3.23 M/UL (4.70-6.10) L Hemoglobin 8.7 G/DL (14.2-18.0) L Hematocrit 28.4 % (42.0-52.0) L Mean Corpuscular Volume 88 FL (80-99) Mean Corpuscular Hemoglobin 26.8 PG (27.0-31.0) L Mean Corpuscular Hemoglobin Concent 30.5 G/DL (32.0-36.0) L Red Cell Distribution Width 16.5 % (11.6-14.8) H Platelet Count 540 K/UL (150-450) H Mean Platelet Volume 9.2 FL (6.5-10.1) Neutrophils (%) (Auto) 68.3 % (45.0-75.0) Lymphocytes (%) (Auto) 19.6 % (20.0-45.0) L Monocytes (%) (Auto) 8.3 % (1.0-10.0) Eosinophils (%) (Auto) 2.7 % (0.0-3.0) Basophils (%) (Auto) 1.1 % (0.0-2.0) Sodium Level 152 MMOL/L (136-145) H Potassium Level 4.2 MMOL/L (3.5-5.1) Chloride Level 115 MMOL/L (98-107) H Carbon Dioxide Level 33 MMOL/L (21-32) H Anion Gap 4 mmol/L (5-15) L Blood Urea Nitrogen 18 mg/dL (7-18) Creatinine 1.3 MG/DL (0.55-1.30) Estimat Glomerular Filtration Rate > 60 mL/min (>60) Glucose Level 238 MG/DL (74-106) H Calcium Level 9.5 MG/DL (8.5-10.1) Phosphorus Level 2.3 MG/DL (2.5-4.9) L Magnesium Level 2.3 MG/DL (1.8-2.4) Total Bilirubin 0.2 MG/DL (0.2-1.0) Aspartate Amino Transf (AST/SGOT) 19 U/L (15-37) Alanine Aminotransferase (ALT/SGPT) 10 U/L (12-78) L Alkaline Phosphatase 191 U/L (46-116) H Total Protein 7.6 G/DL (6.4-8.2) Albumin 1.6 G/DL (3.4-5.0) L Globulin 6.0 g/dL Albumin/Globulin Ratio 0.3 (1.0-2.7) L Arterial Blood pH 7.469 (7.350-7.450) Arterial Blood Partial Pressure CO2 43.3 mmHg (35.0-45.0) Arterial Blood Partial Pressure O2 212.0 mmHg (75.0-100.0) H Arterial Blood HCO3 30.7 mmol/L (22.0-26.0) H Arterial Blood Oxygen Saturation 99.7 % (95-100) Arterial Blood Base Excess 6.4 (-2-2) H Raz Test Positive Plan Problems: (1) Hypoxia (2) Severe sepsis Assessment & Plan: leukocytosis lactic acidosis anemia renal insufficiency on support in ICU dressings changed and care plan initiated cont abx trend labs if fluids am imaging ordered remains febrile cont abx cooling measures worsening respiratory cont support CT noted - unable to obtain consent for ct. medically necessary to ensure no intraabd process. recommend proceed with ct in patients best interest weaning possible trial extubation Non-Blanchable erythema noted to R and L earlobes. Erythematous, scaly pimple- like rash,some of which are scaly and others small papules noted to R and L axillae, upper R and L chest and back ,R and L groin areas. Pt observed to persistently scratch affected areas described. Incontinence Associated Dermatitis Buttocks, R and L Ischial tuberosities are erythematous,denuded with shearing and scattered satellite lesions. Per staff pt frequently removes or dislodges Condom cath. R Heel is boggy with non-blanchable erythema. L Heel is boggy with Non-Blanchable erythema. Pt presented on admission with Multiple Pressure Injuries. Sacral DTPI which extends into R and L Gluteal cheeks and is partially opened upper R gluteus ( L)14cm x (W)15cm. DTPI noted within hypertrophic scar from previous Pressure injury. Base of wound is purpuric at cleft ,and indurated. Non-Blanchable erythema with additional shearing periwound. An area of induration with darker skin tone noted to L Ischium. Darker skin tone without induration R Ischium. Scrotum is erythematous and swollen. DTPI L Heel and Plantar L Heel(L)4cm x (W)3.5cm. Base of Pressure Injury roca colored Blister with darker center. Periwound is fluctuant with non-Blanchable erythema. DTPI R Heel (L)2.7cm x (W)4cm. Non-Blanchable erythema without induration/fluctuance R Hallux. Non-Blanchable erythema without induration/fluctuance L Hallux. Tx.Plan:Apply Cavilon Skin Barrier to both R and L ears.(Pad Oxygen Tubing as Needed.) Apply Moisture Barrier Paste to bilat groin and bilat ischial tuberosities with eqach Incontinence care. Apply Cavilon Skin Barrier to both heels. Cover each heel with Optifoam drsg. Change every 7 days and prn. Cleanse Sacral wound with Saline. Apply Therahoney. Apply Moisture Barrier Paste periwound. Cover with Optifoam drsg. Change every 3 days and prn. Apply Moisture Barrier Paste to Scrotum,R and L ischial tuberosities with each incontinence care. Apply Cavilon Skin Barrier to R and L Hallux. Cover each site with Optifoam drsgs. Change every 7 days and prn. Reposition at least every 2hours or as tolerated. Off-load heels with pillow. APM/ALEK Mattress overlay improving cont current care tube site okay DAILY ESTIMATED NEEDS: Needs based on Critical care, DM, Wound/ 62.73kg 22-30 kcals/kg 4602-0435 total kcals 1.25-2 g protein/kg 78-125 g total protein 25-30 mL/kg 9916-7734 total fluid mLs NUTRITION DIAGNOSIS: * Swallowing difficulty R/T dysphagia as evidenced by Pt is GT dep, currently orally intubated, off pressor support, on GT feeds. CURRENT TF:NPO ENTERAL NUTRITION RECOMMENDATIONS: Glucerna 1.2 @ 55ml/hr x 24 hrs to provide 1320ml, 1584kcal, 79g prot, 1063ml free water * Maintain current TF: meets 100 % est kcal/prot needs * HOB over 30 degrees * H2O flush of 180ml q 6hrs ADDITIONAL RECOMMENDATIONS: * Per SNF: HT=5'7" WT= 138lbs (as of Sep 13, 2020) * Monitor hemodynamic stability: NE @ 8mcg-> now off * Wound healing: TF rec @ goal provides 100% RDI add Vit C 500mg QD + Terrance BID via TF * Monitor lytes, replete as needed * Rec long acting insulin for improved BG control . (3) Dehydration (4) Hypernatremia (5) Clostridium difficile colitis (6) Staphylococcus aureus bacteremia (7) Hip fracture, left (8) Diabetes mellitus (9) History of hypertension (10) Severe protein-calorie malnutrition (11) Acute encephalopathy (12) Pressure Ulcer Of Sacral Region, Unstageable (13) Feeding by G-tube (14) Abdominal distention (15) Multiple drug resistant organism (MDRO) culture positive (16) Sepsis (17) History of CVA (cerebrovascular accident) (18) Parkinson disease James Breen Oct 13, 2020 14:40
--- NOTE | 2020-10-13 15:32 | General Progress Note ---
Progress Note Progress Note Ethics note reviewed and appreciated. I agree totally with DNR order. Latanya Mckeon MD Oct 13, 2020 15:32
--- NOTE | 2020-10-13 19:52 | Internal Med Progress Note ---
Subjective Date of Service: Oct 13, 2020 Physician Name JordynTello Attending Physician Cirilo Rome MD Current Medications Medications (Trade) Dose Ordered Sig/Debi Route PRN Reason Start Time Stop Time Status Last Admin Dose Admin Acetaminophen (Tylenol) 650 mg Q4H PRN GT FEVER 10/03/20 01:15 11/02/20 01:14 10/13/20 06:23 Acetaminophen (Tylenol) 650 mg Q6H PRN GT Mild Pain (Pain Scale 1-3) 10/12/20 08:30 11/11/20 08:29 Ascorbic Acid (Vitamin C) 250 mg EVERY 12 HOURS GT 10/12/20 09:00 11/02/20 17:59 10/13/20 10:37 Dextrose 1,000 ml @ 100 mls/hr Q10H IV 10/13/20 10:30 10/13/20 20:29 10/13/20 10:37 Dextrose (Dextrose 50%) 25 ml Q30M PRN IV Hypoglycemia 09/25/20 15:30 12/24/20 15:29 Dextrose (Dextrose 50%) 50 ml Q30M PRN IV Hypoglycemia 09/25/20 15:30 12/24/20 15:29 Heparin Sodium (Porcine) (Heparin 5000 units/ml) 5,000 units EVERY 12 HOURS SUBQ 09/25/20 09:00 11/09/20 08:59 10/13/20 10:44 Insulin Aspart (NovoLOG) Q6HR SUBQ 10/04/20 00:00 01/02/21 00:00 10/13/20 18:50 Meropenem 1 gm/ Sodium Chloride 55 ml @ 110 mls/hr Q8H IVPB 10/05/20 18:00 10/16/20 17:59 10/13/20 18:36 Midodrine (Pro-Amatine) 10 mg Q8HR GT 09/30/20 14:00 12/29/20 13:59 10/13/20 15:55 Ondansetron HCl (Zofran) 4 mg Q6H PRN IVP Nausea & Vomiting 09/25/20 00:15 10/25/20 00:14 Pantoprazole (Protonix) 40 mg Q12HR IVP 09/25/20 21:00 10/25/20 08:59 10/13/20 10:37 Polyethylene Glycol (Miralax) 17 gm DAILYPRN PRN ORAL Constipation 09/25/20 00:15 10/25/20 00:14 Allergies: Coded Allergies: No Known Allergies (Unverified , 08/27/19) ROS Limited/Unobtainable: Yes Subjective 80 YO M admitted with respiratory failure. Extubated 10/11/20; on venturi. Cover for Int Dusty-DR Rome. ICU Objective Last Vital Signs Date Time Temp Pulse Resp B/P (MAP) Pulse Ox O2 Delivery O2 Flow Rate FiO2 10/13/20 19:03 100 Venturi Mask 40 10/13/20 19:00 89 23 118/48 (71) 10/13/20 17:00 99.2 10/12/20 06:30 15.0 Laboratory Tests Test 10/13/20 05:00 10/13/20 08:06 10/13/20 18:41 White Blood Count 14.2 K/UL (4.8-10.8) H Red Blood Count 3.23 M/UL (4.70-6.10) L Hemoglobin 8.7 G/DL (14.2-18.0) L Hematocrit 28.4 % (42.0-52.0) L Mean Corpuscular Volume 88 FL (80-99) Mean Corpuscular Hemoglobin 26.8 PG (27.0-31.0) L Mean Corpuscular Hemoglobin Concent 30.5 G/DL (32.0-36.0) L Red Cell Distribution Width 16.5 % (11.6-14.8) H Platelet Count 540 K/UL (150-450) H Mean Platelet Volume 9.2 FL (6.5-10.1) Neutrophils (%) (Auto) 68.3 % (45.0-75.0) Lymphocytes (%) (Auto) 19.6 % (20.0-45.0) L Monocytes (%) (Auto) 8.3 % (1.0-10.0) Eosinophils (%) (Auto) 2.7 % (0.0-3.0) Basophils (%) (Auto) 1.1 % (0.0-2.0) Sodium Level 152 MMOL/L (136-145) H Potassium Level 4.2 MMOL/L (3.5-5.1) Chloride Level 115 MMOL/L (98-107) H Carbon Dioxide Level 33 MMOL/L (21-32) H Anion Gap 4 mmol/L (5-15) L Blood Urea Nitrogen 18 mg/dL (7-18) Creatinine 1.3 MG/DL (0.55-1.30) Estimat Glomerular Filtration Rate > 60 mL/min (>60) Glucose Level 238 MG/DL (74-106) H Calcium Level 9.5 MG/DL (8.5-10.1) Phosphorus Level 2.3 MG/DL (2.5-4.9) L Magnesium Level 2.3 MG/DL (1.8-2.4) Total Bilirubin 0.2 MG/DL (0.2-1.0) Aspartate Amino Transf (AST/SGOT) 19 U/L (15-37) Alanine Aminotransferase (ALT/SGPT) 10 U/L (12-78) L Alkaline Phosphatase 191 U/L (46-116) H Total Protein 7.6 G/DL (6.4-8.2) Albumin 1.6 G/DL (3.4-5.0) L Globulin 6.0 g/dL Albumin/Globulin Ratio 0.3 (1.0-2.7) L Arterial Blood pH 7.469 (7.350-7.450) Arterial Blood Partial Pressure CO2 43.3 mmHg (35.0-45.0) Arterial Blood Partial Pressure O2 212.0 mmHg (75.0-100.0) H Arterial Blood HCO3 30.7 mmol/L (22.0-26.0) H Arterial Blood Oxygen Saturation 99.7 % (95-100) Arterial Blood Base Excess 6.4 (-2-2) H Raz Test Positive POC Whole Blood Glucose 233 MG/DL (74-106) H Microbiology Date/Time Source Procedure Growth Status 10/11/20 16:15 Blood Blood Culture - Preliminary NO GROWTH AFTER 24 HOURS Resulted 10/11/20 16:00 Blood Blood Culture - Preliminary NO GROWTH AFTER 24 HOURS Resulted 10/11/20 11:00 Straight Cath Urine Culture - Final NO GROWTH AFTER 48 HOURS Complete Intake and Output 10/12/20 10/13/20 19:00 07:00 Intake Total 830 ml 660 ml Output Total 370 ml 360 ml Balance 460 ml 300 ml IV Total 110 ml Tube Feeding 660 ml 660 ml Other 60 ml Output Urine Total 370 ml 360 ml Objective PHYSICAL EXAMINATION: GENERAL: The patient is well-developed and well-nourished male, who is intubated and sedated. HEENT: Eyes, pupils are equal responsive to light and accommodation. Extraocular movements are intact. NECK: Supple without lymphadenopathy. CHEST: BIPAP; Decreased breath sounds bilateral bases, otherwise without wheezes or rales. CARDIOVASCULAR: Regular rate. S1 and S2 normal without murmurs, rubs, or gallops. ABDOMEN: Soft, nontender, and nondistended. Positive bowel sounds. No evidence of hepatosplenomegaly. Currently, no rebound or guarding noted. EXTREMITIES: Negative for clubbing, cyanosis, or edema. RECTAL/GENITAL: Not performed. NEUROLOGIC: Unable to assess Assessment/Plan Assessment/Plan ASSESSMENT: This is a 80-year-old male. 1. Respiratory failure. 2. Bilateral pneumonia. 3. Hypertension. 4. Diabetes type 2. 5. Hypercholesterolemia. 6. Parkinson disease. 7. COVID-19 negative. 8. Ulcerative proctitis. 9. Benign prostatic hypertrophy. 10. Gastroesophageal reflux disease. 11. Urinary tract infection=proteus mirabilis 12. Sepsis=coag neg staph TREATMENT: 1. Pneumonia/respiratory failure. Infectious diseases = Drs. Harris/Pj. A Pulmonary/Critical care= Dr. Latanya Mckeon. S/P extubation 10/11/20; on BIPAP ABX= vancomycin, amikacin, and ertapenem. Follow recommendation of Infectious Diseases. 2. Urinary tract infection. ABX= Meropenem and vancomycin. An Infectious Disease consultation has been obtained with Dr. Harris. 3. Hypertension. The patient is currently hypotensive. 4. Diabetes type 2. NovoLog sliding scale has been instituted. 5. Hypercholesterolemia. Continue simvastatin as above. 6. Parkinson disease. 7. Ulcerative proctitis. 8. Benign prostatic hypertrophy. 9. Gastroesophageal reflux disease. 10. Dysphagia. The patient is status post PEG placement. Tello Cobb MD Oct 13, 2020 19:52
[2020-10-14] VITALS (14 sets, daily range): BP systolic 108–138; BP diastolic 48–68
[2020-10-14] MEDS: Meropenem 1 GM in NS 55 ML IVPB SCH ×3 (01:49→17:47)
[2020-10-14] MEDS: NovoLOG Insulin Flexpen SUBQ SCH ×3 (05:13→17:48)
[2020-10-14] MEDS: Midodrine 10mg tab GT SCH ×3 (05:14→22:16)
[2020-10-14] MEDS: Acetaminophen 650mg/20.3ml GT PRN ×2 (05:38→13:34)
[2020-10-14 06:17] LABS: ANION GAP 2 mmol/L (5-15); BLOOD UREA NITROGEN 19 mg/dL (7-18); CALCIUM 9.4 MG/DL (8.5-10.1); CARBON DIOXIDE 34 MMOL/L (21-32); CHLORIDE 112 MMOL/L (98-107); CREATININE 1.2 MG/DL (0.55-1.30); POTASSIUM 4.3 MMOL/L (3.5-5.1); SODIUM 148 MMOL/L (136-145)
[2020-10-14 06:58] LABS: BASOPHILS % (AUTO) 0.8 % (0.0-2.0); EOSINOPHILS % (AUTO) 3.9 % (0.0-3.0); HEMATOCRIT 28.4 % (42.0-52.0); HEMOGLOBIN 8.9 G/DL (14.2-18.0); LYMPHOCYTES % (AUTO) 28.5 % (20.0-45.0); MEAN CORPUSCULAR VOLUME 83 FL (80-99); MONOCYTES % (AUTO) 6.5 % (1.0-10.0); NEUTROPHILS % (AUTO) 60.3 % (45.0-75.0); PLATELET COUNT 552 K/UL (150-450); RED BLOOD COUNT 3.42 M/UL (4.70-6.10); RED CELL DISTRIBUTION WIDTH 17.4 % (11.6-14.8)
[2020-10-14] MEDS: Ascorbic Acid 500mg tab GT SCH ×2 (08:49→22:16)
[2020-10-14] MEDS: Pantoprazole Inj IVP SCH ×2 (08:49→22:15)
[2020-10-14] MEDS: Heparin 5000 units/ml inj SUBQ SCH ×2 (08:52→22:28)
--- NOTE | 2020-10-14 09:21 | Infectious Diseases Prog Note ---
Assessment/Plan 80yo M with: Fevers Leukocytosis, improving Resp secretions Resp failure on vent 10/06 BCx NTD CXR: Improving bilateral interstitial and airspace opacities with mild persistent left lower lobe airspace disease. 10/08 Resp cx +Kleb pna, ronquillo-S 10/10 CT chest/Abd/pelvis: Bilateral dense lower lobe consolidation, presumab ly representing pneumonia, nonspecific as regards appearance. More ill-defined reticular upper lobe opacities are probably related. Somewhat heterogeneous perfusion of the left kidney. This could indicate nephritis, although appearance is somewhat similar to the previous exam and this could just be baseline appearance for this patient. 10/11 BCx NTD UA 10-15 WBC, UCx neg CONS bacteremia, recurrent 09/24 BCx 2/2 +CONS 09/25 BCx neg 09/28 BCx +CONS 09/30 BCx NTD Sepsis, septic shock GPC bacteremia UTI 11/15 ESBL P.mirabilis Pneumonia 11/15 ESBL P.mirabilis Febrile to 105, improving Leukocytosis to 15, improving 09/24 BCx 11/15 CONS UA 20-30 WBC, UCx ESBL P.mirabilis COVID rapid test neg, PCR neg CXR: 1. Coarse bibasilar interstitial lung markings, may represent atypical infectious process such as viral pneumonia versus pulmonary edema. 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: No bladder changer 2 days 09/28 C.dif neg 09/28 BCx +GPCs (see above) Resp cx +ESBL P.mirabilis 09/29 COVID PCR neg 10/03 CXR: Slightly worsened bilateral basilar infiltrates, over one day Cr 2.0, improving Plan: Cont meropenem #14 (abx d #20) for ESBL P.mirabilis UTI/pna (can sometimes have increased MICs to erta, but S-audra) Trend WBC 10/07 SP vanco IV #7 empiric 10/01 SP erta #6 09/25 SP amikacin and vanco x1 Monitor CBC/CMP Monitor temp curve, hemodynamics Monitor resp status D/w RN Thank you for this consult. [facility] will continue to follow. Subjective Allergies: Coded Allergies: No Known Allergies (Unverified , 08/27/19) AF WBC improving to 12 NAD Now on venturi mask, but very shallow breathing DNR/DNI Objective Last 24 Hour Vital Signs Date Time Temp Pulse Resp B/P (MAP) Pulse Ox O2 Delivery O2 Flow Rate FiO2 10/14/20 07:00 106 23 118/50 (72) 100 10/14/20 06:08 99.0 10/14/20 06:00 108 26 115/49 (71) 100 10/14/20 05:00 99.7 94 21 118/59 (78) 100 10/14/20 04:47 107 10/14/20 04:00 Venturi Mask 10.0 10/14/20 04:00 98.0 96 23 119/68 (85) 100 10/14/20 04:00 10.0 40 10/14/20 03:00 98 25 138/56 (83) 100 10/14/20 02:00 91 24 132/56 (81) 100 10/14/20 01:00 91 25 130/53 (78) 100 10/14/20 00:16 90 10/14/20 00:00 10.0 40 10/14/20 00:00 98.1 91 23 134/51 (78) 100 10/14/20 00:00 Venturi Mask 10.0 10/13/20 23:00 89 23 135/61 (85) 100 10/13/20 22:00 80 23 122/59 (80) 100 10/13/20 21:00 88 24 121/54 (76) 100 10/13/20 20:47 97 10/13/20 20:00 Venturi Mask 10.0 10/13/20 20:00 10.0 40 10/13/20 20:00 98.4 86 22 115/48 (70) 100 10/13/20 19:03 100 Venturi Mask 10.0 40 10/13/20 19:00 89 23 118/48 (71) 100 10/13/20 19:00 93 26 120/49 (72) 100 10/13/20 18:00 93 26 120/49 (72) 100 10/13/20 17:00 99.2 81 23 123/56 (78) 100 10/13/20 16:00 Bi-pap 10/13/20 16:00 85 10/13/20 16:00 60 10/13/20 16:00 98 30 113/53 (73) 100 10/13/20 15:00 79 23 118/54 (75) 100 10/13/20 14:00 94 23 117/46 (69) 100 10/13/20 13:00 88 23 118/72 (87) 100 10/13/20 12:01 98.2 83 27 132/63 (86) 100 10/13/20 12:00 Bi-pap 10/13/20 12:00 83 27 132/63 (86) 100 10/13/20 12:00 60 10/13/20 12:00 84 10/13/20 11:00 84 19 116/57 (76) 100 10/13/20 10:00 88 19 93/53 (66) 100 Height (Feet): 5 Height (Inches): 10.00 Weight (Pounds): 180 Gen: NAD HEENT: NCAT Pulm: BL chest rise Abd: Non-distended Ext: No c/c/e Skin: No visible rashes Neuro: Awake Microbiology Date/Time Source Procedure Growth Status 10/11/20 16:15 Blood Blood Culture - Preliminary NO GROWTH AFTER 48 HOURS Resulted 10/11/20 16:00 Blood Blood Culture - Preliminary NO GROWTH AFTER 48 HOURS Resulted 10/11/20 11:00 Straight Cath Urine Culture - Final NO GROWTH AFTER 48 HOURS Complete Laboratory Tests Test 10/13/20 18:41 10/14/20 04:30 10/14/20 05:01 POC Whole Blood Glucose 233 MG/DL (74-106) H 260 MG/DL (74-106) H White Blood Count 12.0 K/UL (4.8-10.8) H Red Blood Count 3.42 M/UL (4.70-6.10) L Hemoglobin 8.9 G/DL (14.2-18.0) L Hematocrit 28.4 % (42.0-52.0) L Mean Corpuscular Volume 83 FL (80-99) Mean Corpuscular Hemoglobin 26.1 PG (27.0-31.0) L Mean Corpuscular Hemoglobin Concent 31.4 G/DL (32.0-36.0) L Red Cell Distribution Width 17.4 % (11.6-14.8) H Platelet Count 552 K/UL (150-450) H Mean Platelet Volume 8.1 FL (6.5-10.1) Neutrophils (%) (Auto) 60.3 % (45.0-75.0) Lymphocytes (%) (Auto) 28.5 % (20.0-45.0) Monocytes (%) (Auto) 6.5 % (1.0-10.0) Eosinophils (%) (Auto) 3.9 % (0.0-3.0) H Basophils (%) (Auto) 0.8 % (0.0-2.0) Sodium Level 148 MMOL/L (136-145) H Potassium Level 4.3 MMOL/L (3.5-5.1) Chloride Level 112 MMOL/L (98-107) H Carbon Dioxide Level 34 MMOL/L (21-32) H Anion Gap 2 mmol/L (5-15) L Blood Urea Nitrogen 19 mg/dL (7-18) H Creatinine 1.2 MG/DL (0.55-1.30) Estimat Glomerular Filtration Rate > 60 mL/min (>60) Glucose Level 256 MG/DL (74-106) H Calcium Level 9.4 MG/DL (8.5-10.1) Current Medications Medications (Trade) Dose Ordered Sig/Debi Route PRN Reason Start Time Stop Time Status Last Admin Dose Admin Acetaminophen (Tylenol) 650 mg Q4H PRN GT FEVER 10/03/20 01:15 11/02/20 01:14 10/14/20 05:38 Acetaminophen (Tylenol) 650 mg Q6H PRN GT Mild Pain (Pain Scale 1-3) 10/12/20 08:30 11/11/20 08:29 Ascorbic Acid (Vitamin C) 250 mg EVERY 12 HOURS GT 10/12/20 09:00 11/02/20 17:59 10/14/20 08:49 Dextrose (Dextrose 50%) 25 ml Q30M PRN IV Hypoglycemia 09/25/20 15:30 12/24/20 15:29 Dextrose (Dextrose 50%) 50 ml Q30M PRN IV Hypoglycemia 09/25/20 15:30 12/24/20 15:29 Heparin Sodium (Porcine) (Heparin 5000 units/ml) 5,000 units EVERY 12 HOURS SUBQ 09/25/20 09:00 11/09/20 08:59 10/14/20 08:52 Insulin Aspart (NovoLOG) Q6HR SUBQ 10/04/20 00:00 01/02/21 00:00 10/14/20 05:13 Meropenem 1 gm/ Sodium Chloride 55 ml @ 110 mls/hr Q8H IVPB 10/05/20 18:00 10/16/20 17:59 10/14/20 09:00 Midodrine (Pro-Amatine) 10 mg Q8HR GT 09/30/20 14:00 12/29/20 13:59 10/14/20 05:14 Ondansetron HCl (Zofran) 4 mg Q6H PRN IVP Nausea & Vomiting 09/25/20 00:15 10/25/20 00:14 Pantoprazole (Protonix) 40 mg Q12HR IVP 09/25/20 21:00 10/25/20 08:59 10/14/20 08:49 Polyethylene Glycol (Miralax) 17 gm DAILYPRN PRN ORAL Constipation 09/25/20 00:15 10/25/20 00:14 Marixa Oliva M.D. Oct 14, 2020 09:21
--- NOTE | 2020-10-14 10:00 | Pulmonolgy Critical Care Note ---
Kim Mahoney DIRECTOR OF BUSINESS OPERATIONS 10/14/20 1000: Critical Care - Asmt/Plan Assessment/Plan: ASSESSMENT Acute respiratory failure , requiring intubation, s/p extubation Sepsis with shock CONS bacteremia- contaminant Proteus ESBL UTI Pneumonia , possible aspiration KELLY- > resolved Dysphagia, feeding by G-tube DM Anemia Hx of CVA Hx of hypertension Parkinson disease PLAN OF CARE ICU O2 titrate to keep sat > 92% pulm toilet CXR 10/13 with improvement strict aspiration precaution DVT and GI prophylaxis abx as per ID recs SCX 09/28 + Proteus ESBL BCX 09/28 + CONS fup BCX 09/30 NGTD prior BCX 09/26 NGT , CONS likely contaminant COVID-19 negative C dif NGT BCX 10/11 NGTD UCX 10/11 NGT SCX 10/08 + Klebsiella, Lillian BP support with midodrine s/p gentle IV hydration, monitor volumes BS management with SSI monitor renal parameters, electrolytes ,correct electrolytes as needed ,avoid nephrotoxic KELLY resolved monitor H&H with goal to keep Hgb above 7 supportive care DNR/DNI status now transfer to tele pending case discussed and evaluated by supervising physician Critical Care - Objective Last 24 Hour Vital Signs Date Time Temp Pulse Resp B/P (MAP) Pulse Ox O2 Delivery O2 Flow Rate FiO2 10/14/20 07:00 106 23 118/50 (72) 100 10/14/20 06:08 99.0 10/14/20 06:00 108 26 115/49 (71) 100 10/14/20 05:00 99.7 94 21 118/59 (78) 100 10/14/20 04:47 107 10/14/20 04:00 Venturi Mask 10.0 10/14/20 04:00 98.0 96 23 119/68 (85) 100 10/14/20 04:00 10.0 40 10/14/20 03:00 98 25 138/56 (83) 100 10/14/20 02:00 91 24 132/56 (81) 100 10/14/20 01:00 91 25 130/53 (78) 100 10/14/20 00:16 90 10/14/20 00:00 10.0 40 10/14/20 00:00 98.1 91 23 134/51 (78) 100 10/14/20 00:00 Venturi Mask 10.0 10/13/20 23:00 89 23 135/61 (85) 100 10/13/20 22:00 80 23 122/59 (80) 100 10/13/20 21:00 88 24 121/54 (76) 100 10/13/20 20:47 97 10/13/20 20:00 Venturi Mask 10.0 10/13/20 20:00 10.0 40 10/13/20 20:00 98.4 86 22 115/48 (70) 100 10/13/20 19:03 100 Venturi Mask 10.0 40 10/13/20 19:00 89 23 118/48 (71) 100 10/13/20 19:00 93 26 120/49 (72) 100 10/13/20 18:00 93 26 120/49 (72) 100 10/13/20 17:00 99.2 81 23 123/56 (78) 100 10/13/20 16:00 Bi-pap 10/13/20 16:00 85 10/13/20 16:00 60 10/13/20 16:00 98 30 113/53 (73) 100 10/13/20 15:00 79 23 118/54 (75) 100 10/13/20 14:00 94 23 117/46 (69) 100 10/13/20 13:00 88 23 118/72 (87) 100 10/13/20 12:01 98.2 83 27 132/63 (86) 100 10/13/20 12:00 Bi-pap 10/13/20 12:00 83 27 132/63 (86) 100 10/13/20 12:00 60 10/13/20 12:00 84 10/13/20 11:00 84 19 116/57 (76) 100 10/13/20 10:00 88 19 93/53 (66) 100 Objective: Status: awake Condition: improving HEENT: atraumatic, normocephalic, Lungs: few scattered rhonchi Heart: ST on monitor ( low tachy) Abdomen: soft, non-tender Extremities: no C/C/E Micro: Microbiology Date/Time Source Procedure Growth Status 10/11/20 16:15 Blood Blood Culture - Preliminary NO GROWTH AFTER 48 HOURS Resulted 10/11/20 16:00 Blood Blood Culture - Preliminary NO GROWTH AFTER 48 HOURS Resulted 10/11/20 11:00 Straight Cath Urine Culture - Final NO GROWTH AFTER 48 HOURS Complete Accucheck: 260 Critical Care - Subjective ROS Limited/Unobtainable: Yes Interval Events: now on 40 % VM low grade fever low tachy leukocytosis trending down CXR 10/13 with improvement IV Access: peripheral EKG Rhythm: Sinus Tachycardia - low FI02: 40 Vent Support Breath Rate: 16 Vent Support Mode: BiLevel Vent Tidal Volume: 600 Sputum Amount: None PEEP: 0.0 PIP: 9 Tube Feeding Amount: 55 I&O: Intake and Output 10/13/20 10/14/20 19:00 07:00 Intake Total 1728.333 ml 1005 ml Output Total 625 ml 1440 ml Balance 1103.333 ml -435 ml Intake Free Water 100 ml IV Total 948.333 ml 310 ml Tube Feeding 660 ml 695 ml Other 20 ml Output Urine Total 625 ml 1440 ml # Bowel Movements 1 CXR: CXR 10/13 -Improving left and stable right basilar infiltrates ET-Tube: 7.0 ET Position: 23 Guy Roper MD 10/14/20 2010: Kim Mahoney NP Oct 14, 2020 10:00 Guy Roper MD Oct 14, 2020 20:10
--- NOTE | 2020-10-14 13:22 | Surgery Progress Note ---
Surgery Progress Note Subjective Symptoms: improved, tolerating diet, passing flatus Objective Last 24 Hour Vital Signs Date Time Temp Pulse Resp B/P (MAP) Pulse Ox O2 Delivery O2 Flow Rate FiO2 10/14/20 12:00 10.0 40 10/14/20 12:00 Venturi Mask 10.0 10/14/20 12:00 99.1 103 23 123/56 (78) 100 10/14/20 12:00 95 10/14/20 11:00 97 26 114/51 (72) 100 10/14/20 10:00 91 21 117/53 (74) 100 10/14/20 09:00 95 23 117/52 (73) 100 10/14/20 08:00 101 10/14/20 08:00 Venturi Mask 10.0 10/14/20 08:00 99.5 98 23 114/48 (70) 100 10/14/20 08:00 10.0 40 10/14/20 07:00 106 23 118/50 (72) 100 10/14/20 06:08 99.0 10/14/20 06:00 108 26 115/49 (71) 100 10/14/20 05:00 99.7 94 21 118/59 (78) 100 10/14/20 04:47 107 10/14/20 04:00 Venturi Mask 10.0 10/14/20 04:00 98.0 96 23 119/68 (85) 100 10/14/20 04:00 10.0 40 10/14/20 03:00 98 25 138/56 (83) 100 10/14/20 02:00 91 24 132/56 (81) 100 10/14/20 01:00 91 25 130/53 (78) 100 10/14/20 00:16 90 10/14/20 00:00 10.0 40 10/14/20 00:00 98.1 91 23 134/51 (78) 100 10/14/20 00:00 Venturi Mask 10.0 10/13/20 23:00 89 23 135/61 (85) 100 10/13/20 22:00 80 23 122/59 (80) 100 10/13/20 21:00 88 24 121/54 (76) 100 10/13/20 20:47 97 10/13/20 20:00 Venturi Mask 10.0 10/13/20 20:00 10.0 40 10/13/20 20:00 98.4 86 22 115/48 (70) 100 10/13/20 19:03 100 Venturi Mask 10.0 40 10/13/20 19:00 89 23 118/48 (71) 100 10/13/20 19:00 93 26 120/49 (72) 100 10/13/20 18:00 93 26 120/49 (72) 100 10/13/20 17:00 99.2 81 23 123/56 (78) 100 10/13/20 16:00 Bi-pap 10/13/20 16:00 85 10/13/20 16:00 60 10/13/20 16:00 98 30 113/53 (73) 100 10/13/20 15:00 79 23 118/54 (75) 100 10/13/20 14:00 94 23 117/46 (69) 100 I&O Intake and Output 10/13/20 10/14/20 19:00 07:00 Intake Total 1728.333 ml 1005 ml Output Total 625 ml 1440 ml Balance 1103.333 ml -435 ml Intake Free Water 100 ml IV Total 948.333 ml 310 ml Tube Feeding 660 ml 695 ml Other 20 ml Output Urine Total 625 ml 1440 ml # Bowel Movements 1 Dressing: saturated Cardiovascular: RSR Respiratory: decreased breath sounds Abdomen: soft, non-tender, present bowel sounds, non-distended Extremities: edema, no tenderness, no cyanosis Laboratory Tests Test 10/13/20 18:41 10/14/20 04:30 10/14/20 05:01 10/14/20 11:30 POC Whole Blood Glucose 233 MG/DL (74-106) H 260 MG/DL (74-106) H 290 MG/DL (74-106) H White Blood Count 12.0 K/UL (4.8-10.8) H Red Blood Count 3.42 M/UL (4.70-6.10) L Hemoglobin 8.9 G/DL (14.2-18.0) L Hematocrit 28.4 % (42.0-52.0) L Mean Corpuscular Volume 83 FL (80-99) Mean Corpuscular Hemoglobin 26.1 PG (27.0-31.0) L Mean Corpuscular Hemoglobin Concent 31.4 G/DL (32.0-36.0) L Red Cell Distribution Width 17.4 % (11.6-14.8) H Platelet Count 552 K/UL (150-450) H Mean Platelet Volume 8.1 FL (6.5-10.1) Neutrophils (%) (Auto) 60.3 % (45.0-75.0) Lymphocytes (%) (Auto) 28.5 % (20.0-45.0) Monocytes (%) (Auto) 6.5 % (1.0-10.0) Eosinophils (%) (Auto) 3.9 % (0.0-3.0) H Basophils (%) (Auto) 0.8 % (0.0-2.0) Sodium Level 148 MMOL/L (136-145) H Potassium Level 4.3 MMOL/L (3.5-5.1) Chloride Level 112 MMOL/L (98-107) H Carbon Dioxide Level 34 MMOL/L (21-32) H Anion Gap 2 mmol/L (5-15) L Blood Urea Nitrogen 19 mg/dL (7-18) H Creatinine 1.2 MG/DL (0.55-1.30) Estimat Glomerular Filtration Rate > 60 mL/min (>60) Glucose Level 256 MG/DL (74-106) H Calcium Level 9.4 MG/DL (8.5-10.1) Plan Problems: (1) Hypoxia (2) Severe sepsis Assessment & Plan: leukocytosis lactic acidosis anemia renal insufficiency on support in ICU dressings changed and care plan initiated cont abx trend labs if fluids am imaging ordered remains febrile cont abx cooling measures worsening respiratory cont support CT noted - unable to obtain consent for ct. medically necessary to ensure no intraabd process. recommend proceed with ct in patients best interest weaning possible trial extubation Non-Blanchable erythema noted to R and L earlobes. Erythematous, scaly pimple- like rash,some of which are scaly and others small papules noted to R and L axillae, upper R and L chest and back ,R and L groin areas. Pt observed to persistently scratch affected areas described. Incontinence Associated Dermatitis Buttocks, R and L Ischial tuberosities are erythematous,denuded with shearing and scattered satellite lesions. Per staff pt frequently removes or dislodges Condom cath. R Heel is boggy with non-blanchable erythema. L Heel is boggy with Non-Blanchable erythema. Pt presented on admission with Multiple Pressure Injuries. Sacral DTPI which extends into R and L Gluteal cheeks and is partially opened upper R gluteus (L)14cm x (W)15cm. DTPI noted within hypertrophic scar from previous Pressure injury. Base of wound is purpuric at cleft ,and indurated. Non-Blanchable erythema with additional shearing periwound. An area of induration with darker skin tone noted to L Ischium. Darker skin tone without induration R Ischium. Scrotum is erythematous and swollen. DTPI L Heel and Plantar L Heel(L)4cm x (W)3.5cm. Base of Pressure Injury roca colored Blister with darker center. Periwound is fluctuant with non-Blanchable erythema. DTPI R Heel (L)2.7cm x (W)4cm. Non-Blanchable erythema without induration/fluctuance R Hallux. Non-Blanchable erythema without induration/fluctuance L Hallux. Tx.Plan:Apply Cavilon Skin Barrier to both R and L ears.(Pad Oxygen Tubing as Needed.) Apply Moisture Barrier Paste to bilat groin and bilat ischial tuberosities with eqach Incontinence care. Apply Cavilon Skin Barrier to both heels. Cover each heel with Optifoam drsg. Change every 7 days and prn. Cleanse Sacral wound with Saline. Apply Therahoney. Apply Moisture Barrier Paste periwound. Cover with Optifoam drsg. Change every 3 days and prn. Apply Moisture Barrier Paste to Scrotum,R and L ischial tuberosities with each incontinence care. Apply Cavilon Skin Barrier to R and L Hallux. Cover each site with Optifoam drsgs. Change every 7 days and prn. Reposition at least every 2hours or as tolerated. Off-load heels with pillow. APM/ALEK Mattress overlay improving cont current care tube site okay DAILY ESTIMATED NEEDS: Needs based on Critical care, DM, Wound/ 62.73kg 22-30 kcals/kg 6038-8700 total kcals 1.25-2 g protein/kg 78-125 g total protein 25-30 mL/kg 9555-5846 total fluid mLs NUTRITION DIAGNOSIS: * Swallowing difficulty R/T dysphagia as evidenced by Pt is GT dep, currently orally intubated, off pressor support, on GT feeds. CURRENT TF:NPO ENTERAL NUTRITION RECOMMENDATIONS: Glucerna 1.2 @ 55ml/hr x 24 hrs to provide 1320ml, 1584kcal, 79g prot, 1063ml free water * Maintain current TF: meets 100 % est kcal/prot needs * HOB over 30 degrees * H2O flush of 180ml q 6hrs ADDITIONAL RECOMMENDATIONS: * Per SNF: HT=5'7" WT= 138lbs (as of Sep 13, 2020) * Monitor hemodynamic stability: NE @ 8mcg-> now off * Wound healing: TF rec @ goal provides 100% RDI add Vit C 500mg QD + Terrance BID via TF * Monitor lytes, replete as needed * Rec long acting insulin for improved BG control . (3) Dehydration (4) Hypernatremia (5) Clostridium difficile colitis (6) Staphylococcus aureus bacteremia (7) Hip fracture, left (8) Diabetes mellitus (9) History of hypertension (10) Severe protein-calorie malnutrition (11) Acute encephalopathy (12) Pressure Ulcer Of Sacral Region, Unstageable (13) Feeding by G-tube (14) Abdominal distention (15) Multiple drug resistant organism (MDRO) culture positive (16) Sepsis (17) History of CVA (cerebrovascular accident) (18) Parkinson disease James Breen Oct 14, 2020 13:22
--- NOTE | 2020-10-14 14:58 | Internal Med Progress Note ---
Subjective Date of Service: Oct 14, 2020 Physician Name Tello Cobb Attending Physician Cirilo Rome MD Current Medications Medications (Trade) Dose Ordered Sig/Debi Route PRN Reason Start Time Stop Time Status Last Admin Dose Admin Acetaminophen (Tylenol) 650 mg Q4H PRN GT FEVER 10/03/20 01:15 11/02/20 01:14 10/14/20 13:34 Acetaminophen (Tylenol) 650 mg Q6H PRN GT Mild Pain (Pain Scale 1-3) 10/12/20 08:30 11/11/20 08:29 Ascorbic Acid (Vitamin C) 250 mg EVERY 12 HOURS GT 10/12/20 09:00 11/02/20 17:59 10/14/20 08:49 Dextrose (Dextrose 50%) 25 ml Q30M PRN IV Hypoglycemia 09/25/20 15:30 12/24/20 15:29 Dextrose (Dextrose 50%) 50 ml Q30M PRN IV Hypoglycemia 09/25/20 15:30 12/24/20 15:29 Heparin Sodium (Porcine) (Heparin 5000 units/ml) 5,000 units EVERY 12 HOURS SUBQ 09/25/20 09:00 11/09/20 08:59 10/14/20 08:52 Insulin Aspart (NovoLOG) Q6HR SUBQ 10/04/20 00:00 01/02/21 00:00 10/14/20 11:37 Meropenem 1 gm/ Sodium Chloride 55 ml @ 110 mls/hr Q8H IVPB 10/05/20 18:00 10/16/20 17:59 10/14/20 09:00 Midodrine (Pro-Amatine) 10 mg Q8HR GT 09/30/20 14:00 12/29/20 13:59 10/14/20 05:14 Ondansetron HCl (Zofran) 4 mg Q6H PRN IVP Nausea & Vomiting 09/25/20 00:15 10/25/20 00:14 Pantoprazole (Protonix) 40 mg Q12HR IVP 09/25/20 21:00 10/25/20 08:59 10/14/20 08:49 Polyethylene Glycol (Miralax) 17 gm DAILYPRN PRN ORAL Constipation 09/25/20 00:15 10/25/20 00:14 Allergies: Coded Allergies: No Known Allergies (Unverified , 08/27/19) ROS Limited/Unobtainable: Yes Subjective 80 YO M admitted with respiratory failure. Extubated 10/11/20; on venturi mask. Cover for Int Dusty-DR Rome. Objective Last Vital Signs Date Time Temp Pulse Resp B/P (MAP) Pulse Ox O2 Delivery O2 Flow Rate FiO2 10/14/20 12:55 84 10/14/20 12:00 10.0 40 10/14/20 12:00 Venturi Mask 10/14/20 12:00 99.1 23 123/56 (78) 100 Laboratory Tests Test 10/13/20 18:41 10/14/20 04:30 10/14/20 05:01 10/14/20 11:30 POC Whole Blood Glucose 233 MG/DL (74-106) H 260 MG/DL (74-106) H 290 MG/DL (74-106) H White Blood Count 12.0 K/UL (4.8-10.8) H Red Blood Count 3.42 M/UL (4.70-6.10) L Hemoglobin 8.9 G/DL (14.2-18.0) L Hematocrit 28.4 % (42.0-52.0) L Mean Corpuscular Volume 83 FL (80-99) Mean Corpuscular Hemoglobin 26.1 PG (27.0-31.0) L Mean Corpuscular Hemoglobin Concent 31.4 G/DL (32.0-36.0) L Red Cell Distribution Width 17.4 % (11.6-14.8) H Platelet Count 552 K/UL (150-450) H Mean Platelet Volume 8.1 FL (6.5-10.1) Neutrophils (%) (Auto) 60.3 % (45.0-75.0) Lymphocytes (%) (Auto) 28.5 % (20.0-45.0) Monocytes (%) (Auto) 6.5 % (1.0-10.0) Eosinophils (%) (Auto) 3.9 % (0.0-3.0) H Basophils (%) (Auto) 0.8 % (0.0-2.0) Sodium Level 148 MMOL/L (136-145) H Potassium Level 4.3 MMOL/L (3.5-5.1) Chloride Level 112 MMOL/L (98-107) H Carbon Dioxide Level 34 MMOL/L (21-32) H Anion Gap 2 mmol/L (5-15) L Blood Urea Nitrogen 19 mg/dL (7-18) H Creatinine 1.2 MG/DL (0.55-1.30) Estimat Glomerular Filtration Rate > 60 mL/min (>60) Glucose Level 256 MG/DL (74-106) H Calcium Level 9.4 MG/DL (8.5-10.1) Microbiology Date/Time Source Procedure Growth Status 10/11/20 16:15 Blood Blood Culture - Preliminary NO GROWTH AFTER 48 HOURS Resulted 10/11/20 16:00 Blood Blood Culture - Preliminary NO GROWTH AFTER 48 HOURS Resulted Intake and Output 10/13/20 10/14/20 18:59 06:59 Intake Total 1573.333 ml 1160 ml Output Total 620 ml 1375 ml Balance 953.333 ml -215 ml Intake Free Water 100 ml IV Total 793.333 ml 465 ml Tube Feeding 660 ml 695 ml Other 20 ml Output Urine Total 620 ml 1375 ml # Bowel Movements 1 Objective PHYSICAL EXAMINATION: GENERAL: The patient is well-developed and well-nourished male, who is intubated and sedated. HEENT: Eyes, pupils are equal responsive to light and accommodation. Extraocular movements are intact. NECK: Supple without lymphadenopathy. CHEST: BIPAP; Decreased breath sounds bilateral bases, otherwise without wheezes or rales. CARDIOVASCULAR: Regular rate. S1 and S2 normal without murmurs, rubs, or gallops. ABDOMEN: Soft, nontender, and nondistended. Positive bowel sounds. No evidence of hepatosplenomegaly. Currently, no rebound or guarding noted. EXTREMITIES: Negative for clubbing, cyanosis, or edema. RECTAL/GENITAL: Not performed. NEUROLOGIC: Unable to assess Assessment/Plan Assessment/Plan ASSESSMENT: This is a 80-year-old male. 1. Respiratory failure. 2. Bilateral pneumonia. 3. Hypertension. 4. Diabetes type 2. 5. Hypercholesterolemia. 6. Parkinson disease. 7. COVID-19 negative. 8. Ulcerative proctitis. 9. Benign prostatic hypertrophy. 10. Gastroesophageal reflux disease. 11. Urinary tract infection=proteus mirabilis 12. Sepsis=coag neg staph TREATMENT: 1. Pneumonia/respiratory failure. Infectious diseases = Drs. Harris/Pj. Merissa Pulmonary/Critical care= Dr. Latanya Mckeon. S/P extubation 10/11/20; on BIPAP ABX= vancomycin, amikacin, and ertapenem. Follow recommendation of Infectious Diseases. 2. Urinary tract infection. ABX= Meropenem and vancomycin. An Infectious Disease consultation has been obtained with Dr. Harris. 3. Hypertension. The patient is currently hypotensive. 4. Diabetes type 2. NovoLog sliding scale has been instituted. 5. Hypercholesterolemia. Continue simvastatin as above. 6. Parkinson disease. 7. Ulcerative proctitis. 8. Benign prostatic hypertrophy. 9. Gastroesophageal reflux disease. 10. Dysphagia. The patient is status post PEG placement. Tello Cobb MD Oct 14, 2020 14:58
--- NOTE | 2020-10-14 17:14 | Nephrology Progress Note ---
Assessment/Plan Problem List: (1) KELLY (acute kidney injury) (2) Dehydration (3) Hypernatremia (4) Severe sepsis (5) History of CVA (cerebrovascular accident) (6) Parkinson disease (7) Acute respiratory failure (8) Elevated lipase Assessment KELLY, Hypernatremia, dehydration, free water deficit Sepsis Acute respiratory failure requiring intubation and mechanical ventilation Diabetes mellitus [id number] GT feeding History of CVA History of hypertension Parkinson's disease Elevated lipase Plan October 14: On Venturi mask. Labs reviewed. Renal parameters stable. Electrolytes within acceptable range. October 13: Patient on BiPAP. Gradually improving. Labs reviewed. Renal parameters electrolytes stable. Will give 1 L of D5W for mildly elevated serum sodium. Continue per consultants. October 12: Patient extubated yesterday. Currently on BiPAP. Labs reviewed. Remains full code. Stable from renal standpoint view. Continue post extubation pulmonary care. October 11: Labs reviewed. Renal parameters stable. Remains intubated. Full code. Continue per consultants. October 10: Labs reviewed. Renal parameters stable. Continue per consultants. Continue to monitor renal parameters. October 09: Labs reviewed. K-Phos and 1 L D5W ordered. Continue per consultants. Continue to monitor electrolytes and renal parameters. October 08: No CHEM panel drawn today. Will check lab tomorrow. Continue per consultants. October 07: Labs reviewed. Abnormal electrolytes addressed. Bolus of 500 cc D5W for elevated serum sodium given. Continue to monitor electrolytes and renal parameters. October 06: Labs reviewed. K-Phos replaced. Will give another liter of D5W. Continue to monitor electrolytes and renal parameters. October 05: Labs reviewed. Serum sodium rising. 1 L D5W IV ordered. Continue to monitor electrolytes. Continue per consultants. October 04: No CHEM panel was done today. Patient remain intubated on ventilator and full code. We will order labs tomorrow. Continue per consultants. October 03: Discussed with RN. Labs are reviewed. Potassium and phosphate replacement ordered. Continue per consultants. Patient remains full code intubated on ventilator. Serum creatinine up to 1.5. Continue to monitor renal parameters. October 02: Remains in ICU and intubated. Labs reviewed. Serum creatinine 1.3. Serum sodium slightly elevated. Continue to monitor renal parameters and electrolytes. October 01: Seen in ICU. Discussed with RN. No chemistry panel done today. Blood pressure hovering around 100 systolic. Will check labs tomorrow. Continue per consultants. September 30: Labs reviewed. Renal parameters stable. Blood pressure hovering around 90s systolic. We will add midodrine through GT tube. Continue per consultants. September 29: Labs reviewed. Serum creatinine down to 1.3 and electrolytes reviewed. Abnormal electrolytes addressed. Continue per consultants. September 28: Labs reviewed. Creatinine 1.6 unchanged. Hypernatremia persists. Will give 1 L of D5W. Continue to monitor renal parameters and electrolytes. Continue per consultants. September 27: Labs reviewed. Serum sodium lowering. Serum creatinine lowering. Blood sugar somewhat better controlled. Patient continues to be on free water through tube feeding. Continue to monitor renal parameters and electrolytes. Abnormal electrolytes addressed. September 26: IV fluids stopped. Patient receiving free water reviewed NG tube. Patient full code. Intubated on ventilator. Discussed with JOHNNY Christensen. Continue to monitor renal parameters. Serum creatinine lower but abnormal electrolyte persists and was addressed. Previously: IV fluid half-normal saline 125 cc an hour Albumin fluid challenge Monitor electrolytes Monitor renal parameters Hold blood pressure medication since blood pressure low Per orders, per consultants Subjective ROS Limited/Unobtainable: No Constitutional: Reports: malaise Objective Objective Last 24 Hour Vital Signs Date Time Temp Pulse Resp B/P (MAP) Pulse Ox O2 Delivery O2 Flow Rate FiO2 10/14/20 14:04 99.9 10/14/20 12:55 84 10/14/20 12:00 10.0 40 10/14/20 12:00 Venturi Mask 10.0 10/14/20 12:00 99.1 103 23 123/56 (78) 100 10/14/20 12:00 95 10/14/20 12:00 100.9 95 18 124/57 (79) 100 10/14/20 11:00 97 26 114/51 (72) 100 10/14/20 10:00 91 21 117/53 (74) 100 10/14/20 09:00 95 23 117/52 (73) 100 10/14/20 08:00 101 10/14/20 08:00 Venturi Mask 10.0 10/14/20 08:00 99.5 98 23 114/48 (70) 100 10/14/20 08:00 10.0 40 10/14/20 07:00 106 23 118/50 (72) 100 10/14/20 06:54 100 Venturi Mask 10.0 40 10/14/20 06:08 99.0 10/14/20 06:00 108 26 115/49 (71) 100 10/14/20 05:00 99.7 94 21 118/59 (78) 100 10/14/20 04:47 107 10/14/20 04:00 Venturi Mask 10.0 10/14/20 04:00 98.0 96 23 119/68 (85) 100 10/14/20 04:00 10.0 40 10/14/20 03:00 98 25 138/56 (83) 100 10/14/20 02:00 91 24 132/56 (81) 100 10/14/20 01:00 91 25 130/53 (78) 100 10/14/20 00:16 90 10/14/20 00:00 10.0 40 10/14/20 00:00 98.1 91 23 134/51 (78) 100 10/14/20 00:00 Venturi Mask 10.0 10/13/20 23:00 89 23 135/61 (85) 100 10/13/20 22:00 80 23 122/59 (80) 100 10/13/20 21:00 88 24 121/54 (76) 100 10/13/20 20:47 97 10/13/20 20:00 Venturi Mask 10.0 10/13/20 20:00 10.0 40 10/13/20 20:00 98.4 86 22 115/48 (70) 100 10/13/20 19:03 100 Venturi Mask 10.0 40 10/13/20 19:00 89 23 118/48 (71) 100 10/13/20 19:00 93 26 120/49 (72) 100 10/13/20 18:00 93 26 120/49 (72) 100 Intake and Output 10/13/20 10/14/20 19:00 07:00 Intake Total 1728.333 ml 1005 ml Output Total 625 ml 1440 ml Balance 1103.333 ml -435 ml Intake Free Water 100 ml IV Total 948.333 ml 310 ml Tube Feeding 660 ml 695 ml Other 20 ml Output Urine Total 625 ml 1440 ml # Bowel Movements 1 Laboratory Tests 10/13/20 18:41: POC Whole Blood Glucose 233H 10/13/20 22:59: POC Whole Blood Glucose [Pending] 10/14/20 04:30: White Blood Count 12.0H, Red Blood Count 3.42L, Hemoglobin 8.9L, Hematocrit 28.4L, Mean Corpuscular Volume 83, Mean Corpuscular Hemoglobin 26.1L, Mean Corpuscular Hemoglobin Concent 31.4L, Red Cell Distribution Width 17.4H, Platelet Count 552H, Mean Platelet Volume 8.1, Neutrophils (%) (Auto) 60.3, Lymphocytes (%) (Auto) 28.5, Monocytes (%) (Auto) 6.5, Eosinophils (%) (Auto) 3.9H, Basophils (%) (Auto) 0.8, Sodium Level 148H, Potassium Level 4.3, Chloride Level 112H, Carbon Dioxide Level 34H, Anion Gap 2L, Blood Urea Nitrogen 19H, Creatinine 1.2, Estimat Glomerular Filtration Rate > 60, Glucose Level 256H, Calcium Level 9.4 10/14/20 05:01: POC Whole Blood Glucose 260H 10/14/20 11:30: POC Whole Blood Glucose 290H Height (Feet): 5 Height (Inches): 10.00 Weight (Pounds): 180 General Appearance: no apparent distress EENT: other - On Venturi mask Cardiovascular: tachycardia Respiratory/Chest: decreased breath sounds Abdomen: distended Eddie Nelson MD Oct 14, 2020 17:14
[2020-10-15] MEDS: NovoLOG Insulin Flexpen SUBQ SCH ×5 (01:22→23:59)
[2020-10-15] MEDS: Meropenem 1 GM in NS 55 ML IVPB SCH ×3 (01:25→17:53)
[2020-10-15] MEDS: Midodrine 10mg tab GT SCH ×3 (05:48→22:26)
[2020-10-15 08:00] VITALS: BP 136/79
[2020-10-15 08:21] LABS: BASOPHILS % (AUTO) 1.3 % (0.0-2.0); EOSINOPHILS % (AUTO) 3.6 % (0.0-3.0); HEMATOCRIT 35.1 % (42.0-52.0); HEMOGLOBIN 10.3 G/DL (14.2-18.0); LYMPHOCYTES % (AUTO) 34.3 % (20.0-45.0); MEAN CORPUSCULAR VOLUME 88 FL (80-99); NEUTROPHILS % (AUTO) 53.7 % (45.0-75.0); PLATELET COUNT 531 K/UL (150-450); RED BLOOD COUNT 3.97 M/UL (4.70-6.10); RED CELL DISTRIBUTION WIDTH 16.7 % (11.6-14.8); WHITE BLOOD COUNT 9.3 K/UL (4.8-10.8)
[2020-10-15 08:27] LABS: ANION GAP 3 mmol/L (5-15); BLOOD UREA NITROGEN 22 mg/dL (7-18); CALCIUM 10.3 MG/DL (8.5-10.1); CARBON DIOXIDE 36 MMOL/L (21-32); CHLORIDE 110 MMOL/L (98-107); CREATININE 1.2 MG/DL (0.55-1.30); POTASSIUM 4.4 MMOL/L (3.5-5.1); SODIUM 149 MMOL/L (136-145)
[2020-10-15 08:29] LABS: ALANINE AMINOTRANSFERASE 10 U/L (12-78); ALBUMIN 1.8 G/DL (3.4-5.0); ALKALINE PHOSPHATASE 218 U/L (46-116); ASPARTATE AMINO TRANSFERASE 14 U/L (15-37); BILIRUBIN,DIRECT < 0.1 MG/DL (0.0-0.3); BILIRUBIN,TOTAL 0.2 MG/DL (0.2-1.0); PHOSPHORUS 2.6 MG/DL (2.5-4.9)
[2020-10-15] MEDS: Ascorbic Acid 500mg tab GT SCH ×2 (09:41→22:26)
[2020-10-15] MEDS: Pantoprazole Inj IVP SCH ×2 (09:42→22:26)
[2020-10-15] MEDS: Heparin 5000 units/ml inj SUBQ SCH ×2 (09:43→22:28)
[2020-10-15] MEDS ORDERED: NS 275ml ONE (09:45)
--- NOTE | 2020-10-15 10:27 | Diagnostic Imaging Report ---
EXAM: US Duplex Bilateral Lower Extremities Veins CLINICAL HISTORY: DVT TECHNIQUE: Real-time duplex ultrasound scan of the bilateral lower extremity veins integrating B-mode two-dimensional vascular structure, Doppler spectral analysis, color flow Doppler imaging and compression. COMPARISON: None FINDINGS: Right deep veins: Unremarkable. No DVT in the right common femoral, femoral, proximal deep femoral or popliteal veins. The veins demonstrate normal color flow, are normally compressible, with normal phasic flow and/or augmentation response. Right superficial veins: Unremarkable. No thrombus in the visualized right great saphenous vein. Left deep veins: Unremarkable. No DVT in the left common femoral, femoral, proximal deep femoral or popliteal veins. The veins demonstrate normal color flow, are normally compressible, with normal phasic flow and/or augmentation response. Left superficial veins: Unremarkable. No thrombus in the visualized left great saphenous vein. Soft tissues: No acute findings. No popliteal cyst. IMPRESSION: No deep venous thrombosis identified in either lower extremity.
--- NOTE | 2020-10-15 11:02 | Pulmonology Progress Note ---
Subjective ROS Limited/Unobtainable: No Allergies: Coded Allergies: No Known Allergies (Unverified , 08/27/19) Subjective transferred to tele on 40% VM no resp distress leukocytosis resolved, no fevers Objective Last 24 Hour Vital Signs Date Time Temp Pulse Resp B/P (MAP) Pulse Ox O2 Delivery O2 Flow Rate FiO2 10/15/20 07:00 98 Venturi Mask 10.0 40 10/15/20 04:00 81 10/15/20 00:00 82 10/14/20 21:00 Venturi Mask 10.0 10/14/20 20:00 80 10/14/20 19:47 98 Venturi Mask 10.0 40 10/14/20 16:00 87 10/14/20 16:00 99.5 88 20 108/59 (75) 100 10/14/20 14:04 99.9 10/14/20 12:55 84 10/14/20 12:00 10.0 40 10/14/20 12:00 Venturi Mask 10.0 10/14/20 12:00 99.1 103 23 123/56 (78) 100 10/14/20 12:00 95 10/14/20 12:00 100.9 95 18 124/57 (79) 100 10/14/20 11:00 97 26 114/51 (72) 100 Intake and Output 10/14/20 10/15/20 19:00 07:00 Intake Total 325 ml 605 ml Output Total 360 ml 1500 ml Balance -35 ml -895 ml Intake Free Water 50 ml Tube Feeding 275 ml 605 ml Output Urine Total 360 ml 1500 ml Objective Status: awake , weak, bedridden AA male HEENT: atraumatic, normocephalic, VM 40% Lungs: few isolated rhonchi Heart: SR Abdomen: soft, non-tender Extremities: no C/C/E Laboratory Tests 10/14/20 11:30: POC Whole Blood Glucose 290H 10/14/20 21:20: D-Dimer 4.48H 10/15/20 00:03: POC Whole Blood Glucose 282H 10/15/20 07:24: White Blood Count 9.3, Red Blood Count 3.97L, Hemoglobin 10.3L, Hematocrit 35.1L , Mean Corpuscular Volume 88, Mean Corpuscular Hemoglobin 25.9L, Mean Corpuscular Hemoglobin Concent 29.3L, Red Cell Distribution Width 16.7H, Platelet Count 531H, Mean Platelet Volume 8.4, Neutrophils (%) (Auto) 53.7, Lymphocytes (%) (Auto) 34.3, Monocytes (%) (Auto) 7.0, Eosinophils (%) (Auto) 3.6H, Basophils (%) (Auto) 1.3, Sodium Level 149H, Potassium Level 4.4, Chloride Level 110H, Carbon Dioxide Level 36H, Anion Gap 3L, Blood Urea Nitrogen 22H, Creatinine 1.2, Estimat Glomerular Filtration Rate > 60, Glucose Level 226H, Calcium Level 10.3H, Phosphorus Level 2.6, Magnesium Level 2.5H, Total Bilirubin 0.2, Direct Bilirubin < 0.1, Aspartate Amino Transf (AST/SGOT) 14L, Alanine Aminotransferase (ALT/SGPT) 10L, Alkaline Phosphatase 218H, Total Protein 8.4H, Albumin 1.8L 10/15/20 09:36: Arterial Blood pH 7.485H, Arterial Blood Partial Pressure CO2 45.1H, Arterial Blood Partial Pressure O2 105.6H, Arterial Blood HCO3 33.2H, Arterial Blood Oxygen Saturation 97.8, Arterial Blood Base Excess 8.8H, Raz Test Positive Current Medications Medications (Trade) Dose Ordered Sig/Debi Route PRN Reason Start Time Stop Time Status Last Admin Dose Admin Acetaminophen (Tylenol) 650 mg Q4H PRN GT FEVER 10/03/20 01:15 11/02/20 01:14 10/14/20 13:34 Acetaminophen (Tylenol) 650 mg Q6H PRN GT Mild Pain (Pain Scale 1-3) 10/12/20 08:30 11/11/20 08:29 Ascorbic Acid (Vitamin C) 250 mg EVERY 12 HOURS GT 10/12/20 09:00 11/02/20 17:59 10/15/20 09:41 Dextrose (Dextrose 50%) 25 ml Q30M PRN IV Hypoglycemia 09/25/20 15:30 12/24/20 15:29 Dextrose (Dextrose 50%) 50 ml Q30M PRN IV Hypoglycemia 09/25/20 15:30 12/24/20 15:29 Heparin Sodium (Porcine) (Heparin 5000 units/ml) 5,000 units EVERY 12 HOURS SUBQ 09/25/20 09:00 11/09/20 08:59 10/15/20 09:43 Insulin Aspart (NovoLOG) Q6HR SUBQ 10/04/20 00:00 01/02/21 00:00 10/15/20 06:02 Meropenem 1 gm/ Sodium Chloride 55 ml @ 110 mls/hr Q8H IVPB 10/05/20 18:00 10/16/20 17:59 10/15/20 09:43 Midodrine (Pro-Amatine) 10 mg Q8HR GT 09/30/20 14:00 12/29/20 13:59 10/14/20 22:16 Ondansetron HCl (Zofran) 4 mg Q6H PRN IVP Nausea & Vomiting 09/25/20 00:15 10/25/20 00:14 Pantoprazole (Protonix) 40 mg Q12HR IVP 09/25/20 21:00 10/25/20 08:59 10/15/20 09:42 Polyethylene Glycol (Miralax) 17 gm DAILYPRN PRN ORAL Constipation 09/25/20 00:15 10/25/20 00:14 Assessment/Plan Assessment/Plan ASSESSMENT Acute respiratory failure , requiring intubation, s/p extubation Sepsis with shock CONS bacteremia- contaminant Proteus ESBL UTI Pneumonia , possible aspiration KELLY- > resolved Dysphagia, feeding by G-tube DM Anemia Hx of CVA Hx of hypertension Parkinson disease PLAN OF CARE tele O2 titrate to keep sat > 92% pulm toilet CXR 10/13 with improvement strict aspiration precaution DVT and GI prophylaxis abx as per ID recs SCX 09/28 + Proteus ESBL BCX 09/28 + CONS fup BCX 09/30 NGTD; prior BCX 09/26 NGT , CONS likely contaminant COVID-19 negative C dif NGT BCX 10/11 NGTD UCX 10/11 NGT SCX 10/08 + Klebsiella, Lillian BP support with midodrine s/p gentle IV hydration, monitor volumes BS management with SSI monitor renal parameters, electrolytes ,correct electrolytes as needed ,avoid nephrotoxic KELLY resolved monitor H&H with goal to keep Hgb above 7 supportive care DNR/DNI status now dc plan to SNF case discussed and evaluated by supervising physician Kim Mahoney NP Oct 15, 2020 11:02 Guy Roper MD Oct 15, 2020 19:52
[2020-10-15 12:00] VITALS: BP 131/76
--- NOTE | 2020-10-15 14:19 | Internal Med Progress Note ---
Subjective Date of Service: Oct 15, 2020 Physician Name Tello Cobb Attending Physician Cirilo Rome MD Current Medications Medications (Trade) Dose Ordered Sig/Debi Route PRN Reason Start Time Stop Time Status Last Admin Dose Admin Acetaminophen (Tylenol) 650 mg Q4H PRN GT FEVER 10/03/20 01:15 11/02/20 01:14 10/14/20 13:34 Acetaminophen (Tylenol) 650 mg Q6H PRN GT Mild Pain (Pain Scale 1-3) 10/12/20 08:30 11/11/20 08:29 Ascorbic Acid (Vitamin C) 250 mg EVERY 12 HOURS GT 10/12/20 09:00 11/02/20 17:59 10/15/20 09:41 Dextrose (Dextrose 50%) 25 ml Q30M PRN IV Hypoglycemia 09/25/20 15:30 12/24/20 15:29 Dextrose (Dextrose 50%) 50 ml Q30M PRN IV Hypoglycemia 09/25/20 15:30 12/24/20 15:29 Heparin Sodium (Porcine) (Heparin 5000 units/ml) 5,000 units EVERY 12 HOURS SUBQ 09/25/20 09:00 11/09/20 08:59 10/15/20 09:43 Insulin Aspart (NovoLOG) Q6HR SUBQ 10/04/20 00:00 01/02/21 00:00 10/15/20 12:43 Meropenem 1 gm/ Sodium Chloride 55 ml @ 110 mls/hr Q8H IVPB 10/05/20 18:00 10/17/20 17:59 10/15/20 09:43 Midodrine (Pro-Amatine) 10 mg Q8HR GT 09/30/20 14:00 12/29/20 13:59 10/14/20 22:16 Ondansetron HCl (Zofran) 4 mg Q6H PRN IVP Nausea & Vomiting 09/25/20 00:15 10/25/20 00:14 Pantoprazole (Protonix) 40 mg Q12HR IVP 09/25/20 21:00 10/25/20 08:59 10/15/20 09:42 Polyethylene Glycol (Miralax) 17 gm DAILYPRN PRN ORAL Constipation 09/25/20 00:15 10/25/20 00:14 Allergies: Coded Allergies: No Known Allergies (Unverified , 08/27/19) ROS Limited/Unobtainable: Yes Subjective 80 YO M admitted with respiratory failure. Extubated 10/11/20; on venturi mask. Cover for Int Dusty-DR Rome. Objective Last Vital Signs Date Time Temp Pulse Resp B/P (MAP) Pulse Ox O2 Delivery O2 Flow Rate FiO2 10/15/20 12:00 111 10/15/20 08:00 99.1 20 136/79 (98) 98 10/15/20 07:00 Venturi Mask 10.0 40 Laboratory Tests Test 10/14/20 21:20 10/15/20 00:03 10/15/20 07:24 10/15/20 09:36 D-Dimer 4.48 mg/L FEU (0.00-0.49) H POC Whole Blood Glucose 282 MG/DL (74-106) H White Blood Count 9.3 K/UL (4.8-10.8) Red Blood Count 3.97 M/UL (4.70-6.10) L Hemoglobin 10.3 G/DL (14.2-18.0) L Hematocrit 35.1 % (42.0-52.0) L Mean Corpuscular Volume 88 FL (80-99) Mean Corpuscular Hemoglobin 25.9 PG (27.0-31.0) L Mean Corpuscular Hemoglobin Concent 29.3 G/DL (32.0-36.0) L Red Cell Distribution Width 16.7 % (11.6-14.8) H Platelet Count 531 K/UL (150-450) H Mean Platelet Volume 8.4 FL (6.5-10.1) Neutrophils (%) (Auto) 53.7 % (45.0-75.0) Lymphocytes (%) (Auto) 34.3 % (20.0-45.0) Monocytes (%) (Auto) 7.0 % (1.0-10.0) Eosinophils (%) (Auto) 3.6 % (0.0-3.0) H Basophils (%) (Auto) 1.3 % (0.0-2.0) Sodium Level 149 MMOL/L (136-145) H Potassium Level 4.4 MMOL/L (3.5-5.1) Chloride Level 110 MMOL/L (98-107) H Carbon Dioxide Level 36 MMOL/L (21-32) H Anion Gap 3 mmol/L (5-15) L Blood Urea Nitrogen 22 mg/dL (7-18) H Creatinine 1.2 MG/DL (0.55-1.30) Estimat Glomerular Filtration Rate > 60 mL/min (>60) Glucose Level 226 MG/DL (74-106) H Calcium Level 10.3 MG/DL (8.5-10.1) H Phosphorus Level 2.6 MG/DL (2.5-4.9) Magnesium Level 2.5 MG/DL (1.8-2.4) H Total Bilirubin 0.2 MG/DL (0.2-1.0) Direct Bilirubin < 0.1 MG/DL (0.0-0.3) Aspartate Amino Transf (AST/SGOT) 14 U/L (15-37) L Alanine Aminotransferase (ALT/SGPT) 10 U/L (12-78) L Alkaline Phosphatase 218 U/L (46-116) H Total Protein 8.4 G/DL (6.4-8.2) H Albumin 1.8 G/DL (3.4-5.0) L Arterial Blood pH 7.485 (7.350-7.450) Arterial Blood Partial Pressure CO2 45.1 mmHg (35.0-45.0) H Arterial Blood Partial Pressure O2 105.6 mmHg (75.0-100.0) H Arterial Blood HCO3 33.2 mmol/L (22.0-26.0) H Arterial Blood Oxygen Saturation 97.8 % (95-100) Arterial Blood Base Excess 8.8 (-2-2) H Raz Test Positive Intake and Output 10/14/20 10/15/20 19:00 07:00 Intake Total 325 ml 605 ml Output Total 360 ml 1500 ml Balance -35 ml -895 ml Intake Free Water 50 ml Tube Feeding 275 ml 605 ml Output Urine Total 360 ml 1500 ml Objective PHYSICAL EXAMINATION: GENERAL: The patient is well-developed and well-nourished male, who is intubated and sedated. HEENT: Eyes, pupils are equal responsive to light and accommodation. Extraocular movements are intact. NECK: Supple without lymphadenopathy. CHEST: BIPAP; Decreased breath sounds bilateral bases, otherwise without wheezes or rales. CARDIOVASCULAR: Regular rate. S1 and S2 normal without murmurs, rubs, or gallops. ABDOMEN: Soft, nontender, and nondistended. Positive bowel sounds. No evidence of hepatosplenomegaly. Currently, no rebound or guarding noted. EXTREMITIES: Negative for clubbing, cyanosis, or edema. RECTAL/GENITAL: Not performed. NEUROLOGIC: Unable to assess Assessment/Plan Assessment/Plan ASSESSMENT: This is a 80-year-old male. 1. Respiratory failure. 2. Bilateral pneumonia. 3. Hypertension. 4. Diabetes type 2. 5. Hypercholesterolemia. 6. Parkinson disease. 7. COVID-19 negative. 8. Ulcerative proctitis. 9. Benign prostatic hypertrophy. 10. Gastroesophageal reflux disease. 11. Urinary tract infection=proteus mirabilis 12. Sepsis=coag neg staph TREATMENT: 1. Pneumonia/respiratory failure. Infectious diseases = Drs. Harris/Pj. A Pulmonary/Critical care= Dr. Latanya Mckeon. S/P extubation 10/11/20; on BIPAP ABX= vancomycin, amikacin, and ertapenem. Follow recommendation of Infectious Diseases. 2. Urinary tract infection. ABX= Meropenem and vancomycin. An Infectious Disease consultation has been obtained with Dr. Harris. 3. Hypertension. The patient is currently hypotensive. 4. Diabetes type 2. NovoLog sliding scale has been instituted. 5. Hypercholesterolemia. Continue simvastatin as above. 6. Parkinson disease. 7. Ulcerative proctitis. 8. Benign prostatic hypertrophy. 9. Gastroesophageal reflux disease. 10. Dysphagia. The patient is status post PEG placement. Tello Cobb MD Oct 15, 2020 14:19
--- NOTE | 2020-10-15 15:28 | Nephrology Progress Note ---
Assessment/Plan Problem List: (1) KELLY (acute kidney injury) (2) Dehydration (3) Hypernatremia (4) Severe sepsis (5) History of CVA (cerebrovascular accident) (6) Parkinson disease (7) Acute respiratory failure (8) Elevated lipase Assessment KELLY, Hypernatremia, dehydration, free water deficit Sepsis Acute respiratory failure requiring intubation and mechanical ventilation Diabetes mellitus [id number] GT feeding History of CVA History of hypertension Parkinson's disease Elevated lipase Plan October 15: Labs reviewed. Serum sodium and serum calcium elevated. D5W 500 cc ordered. Pamidronate 60 mg IV ordered for high calcium. Continue to monitor chemistries. October 14: On Venturi mask. Labs reviewed. Renal parameters stable. Electrolytes within acceptable range. October 13: Patient on BiPAP. Gradually improving. Labs reviewed. Renal parameters electrolytes stable. Will give 1 L of D5W for mildly elevated serum sodium. Continue per consultants. October 12: Patient extubated yesterday. Currently on BiPAP. Labs reviewed. Remains full code. Stable from renal standpoint view. Continue post extubation pulmonary care. October 11: Labs reviewed. Renal parameters stable. Remains intubated. Full code. Continue per consultants. October 10: Labs reviewed. Renal parameters stable. Continue per consultants. Continue to monitor renal parameters. October 09: Labs reviewed. K-Phos and 1 L D5W ordered. Continue per consultants. Continue to monitor electrolytes and renal parameters. October 08: No CHEM panel drawn today. Will check lab tomorrow. Continue per consultants. October 07: Labs reviewed. Abnormal electrolytes addressed. Bolus of 500 cc D5W for elevated serum sodium given. Continue to monitor electrolytes and renal parameters. October 06: Labs reviewed. K-Phos replaced. Will give another liter of D5W. Continue to monitor electrolytes and renal parameters. October 05: Labs reviewed. Serum sodium rising. 1 L D5W IV ordered. Continue to monitor electrolytes. Continue per consultants. October 04: No CHEM panel was done today. Patient remain intubated on ventilator and full code. We will order labs tomorrow. Continue per consultants. October 03: Discussed with RN. Labs are reviewed. Potassium and phosphate replacement ordered. Continue per consultants. Patient remains full code intubated on ventilator. Serum creatinine up to 1.5. Continue to monitor renal parameters. October 02: Remains in ICU and intubated. Labs reviewed. Serum creatinine 1.3. Serum sodium slightly elevated. Continue to monitor renal parameters and electrolytes. October 01: Seen in ICU. Discussed with RN. No chemistry panel done today. Blood pressure hovering around 100 systolic. Will check labs tomorrow. Continue per consultants. September 30: Labs reviewed. Renal parameters stable. Blood pressure hovering around 90s systolic. We will add midodrine through GT tube. Continue per consultants. September 29: Labs reviewed. Serum creatinine down to 1.3 and electrolytes reviewed. Abnormal electrolytes addressed. Continue per consultants. September 28: Labs reviewed. Creatinine 1.6 unchanged. Hypernatremia persists. Will give 1 L of D5W. Continue to monitor renal parameters and electrolytes. Continue per consultants. September 27: Labs reviewed. Serum sodium lowering. Serum creatinine lowering. Blood sugar somewhat better controlled. Patient continues to be on free water through tube feeding. Continue to monitor renal parameters and electrolytes. Abnormal electrolytes addressed. September 26: IV fluids stopped. Patient receiving free water reviewed NG tube. Patient full code. Intubated on ventilator. Discussed with JOHNNY Christensen. Continue to monitor renal parameters. Serum creatinine lower but abnormal electrolyte persists and was addressed. Previously: IV fluid half-normal saline 125 cc an hour Albumin fluid challenge Monitor electrolytes Monitor renal parameters Hold blood pressure medication since blood pressure low Per orders, per consultants Subjective ROS Limited/Unobtainable: Yes Objective Objective Last 24 Hour Vital Signs Date Time Temp Pulse Resp B/P (MAP) Pulse Ox O2 Delivery O2 Flow Rate FiO2 10/15/20 12:00 111 10/15/20 08:00 99.1 99 20 136/79 (98) 98 10/15/20 08:00 104 10/15/20 07:00 98 Venturi Mask 10.0 40 10/15/20 04:00 81 10/15/20 00:00 82 10/14/20 21:00 Venturi Mask 10.0 10/14/20 20:00 80 10/14/20 19:47 98 Venturi Mask 10.0 40 10/14/20 16:00 87 10/14/20 16:00 99.5 88 20 108/59 (75) 100 Intake and Output 10/14/20 10/15/20 19:00 07:00 Intake Total 325 ml 605 ml Output Total 360 ml 1500 ml Balance -35 ml -895 ml Intake Free Water 50 ml Tube Feeding 275 ml 605 ml Output Urine Total 360 ml 1500 ml Laboratory Tests 10/14/20 21:20: D-Dimer 4.48H 10/15/20 00:03: POC Whole Blood Glucose 282H 10/15/20 07:24: White Blood Count 9.3, Red Blood Count 3.97L, Hemoglobin 10.3L, Hematocrit 35.1L , Mean Corpuscular Volume 88, Mean Corpuscular Hemoglobin 25.9L, Mean Corpuscular Hemoglobin Concent 29.3L, Red Cell Distribution Width 16.7H, Platelet Count 531H, Mean Platelet Volume 8.4, Neutrophils (%) (Auto) 53.7, Lymphocytes (%) (Auto) 34.3, Monocytes (%) (Auto) 7.0, Eosinophils (%) (Auto) 3.6H, Basophils (%) (Auto) 1.3, Sodium Level 149H, Potassium Level 4.4, Chloride Level 110H, Carbon Dioxide Level 36H, Anion Gap 3L, Blood Urea Nitrogen 22H, Creatinine 1.2, Estimat Glomerular Filtration Rate > 60, Glucose Level 226H, Calcium Level 10.3H, Phosphorus Level 2.6, Magnesium Level 2.5H, Total Bilirubin 0.2, Direct Bilirubin < 0.1, Aspartate Amino Transf (AST/SGOT) 14L, Alanine Aminotransferase (ALT/SGPT) 10L, Alkaline Phosphatase 218H, Total Protein 8.4H, Albumin 1.8L 10/15/20 09:36: Arterial Blood pH 7.485H, Arterial Blood Partial Pressure CO2 45.1H, Arterial Blood Partial Pressure O2 105.6H, Arterial Blood HCO3 33.2H, Arterial Blood Oxygen Saturation 97.8, Arterial Blood Base Excess 8.8H, Raz Test Positive Height (Feet): 5 Height (Inches): 10.00 Weight (Pounds): 180 General Appearance: no apparent distress EENT: other - On Venturi mask Cardiovascular: tachycardia Respiratory/Chest: decreased breath sounds Abdomen: distended Eddie Nelson MD Oct 15, 2020 15:28
--- NOTE | 2020-10-15 15:48 | Surgery Progress Note ---
Surgery Progress Note Subjective Symptoms: improved Additional Comments on face mask no n/v awake somewhat responsive Objective Last 24 Hour Vital Signs Date Time Temp Pulse Resp B/P (MAP) Pulse Ox O2 Delivery O2 Flow Rate FiO2 10/15/20 12:00 111 10/15/20 12:00 98.1 111 20 131/76 (94) 97 10/15/20 08:00 99.1 99 20 136/79 (98) 98 10/15/20 08:00 104 10/15/20 07:00 98 Venturi Mask 10.0 40 10/15/20 04:00 81 10/15/20 00:00 82 10/14/20 21:00 Venturi Mask 10.0 10/14/20 20:00 80 10/14/20 19:47 98 Venturi Mask 10.0 40 10/14/20 16:00 87 10/14/20 16:00 99.5 88 20 108/59 (75) 100 I&O Intake and Output 10/14/20 10/15/20 19:00 07:00 Intake Total 325 ml 605 ml Output Total 360 ml 1500 ml Balance -35 ml -895 ml Intake Free Water 50 ml Tube Feeding 275 ml 605 ml Output Urine Total 360 ml 1500 ml Dressing: saturated Cardiovascular: RSR Respiratory: decreased breath sounds Abdomen: soft, non-tender, present bowel sounds, non-distended Extremities: edema, no tenderness, no cyanosis Laboratory Tests Test 10/14/20 21:20 10/15/20 00:03 10/15/20 07:24 10/15/20 09:36 D-Dimer 4.48 mg/L FEU (0.00-0.49) H POC Whole Blood Glucose 282 MG/DL (74-106) H White Blood Count 9.3 K/UL (4.8-10.8) Red Blood Count 3.97 M/UL (4.70-6.10) L Hemoglobin 10.3 G/DL (14.2-18.0) L Hematocrit 35.1 % (42.0-52.0) L Mean Corpuscular Volume 88 FL (80-99) Mean Corpuscular Hemoglobin 25.9 PG (27.0-31.0) L Mean Corpuscular Hemoglobin Concent 29.3 G/DL (32.0-36.0) L Red Cell Distribution Width 16.7 % (11.6-14.8) H Platelet Count 531 K/UL (150-450) H Mean Platelet Volume 8.4 FL (6.5-10.1) Neutrophils (%) (Auto) 53.7 % (45.0-75.0) Lymphocytes (%) (Auto) 34.3 % (20.0-45.0) Monocytes (%) (Auto) 7.0 % (1.0-10.0) Eosinophils (%) (Auto) 3.6 % (0.0-3.0) H Basophils (%) (Auto) 1.3 % (0.0-2.0) Sodium Level 149 MMOL/L (136-145) H Potassium Level 4.4 MMOL/L (3.5-5.1) Chloride Level 110 MMOL/L (98-107) H Carbon Dioxide Level 36 MMOL/L (21-32) H Anion Gap 3 mmol/L (5-15) L Blood Urea Nitrogen 22 mg/dL (7-18) H Creatinine 1.2 MG/DL (0.55-1.30) Estimat Glomerular Filtration Rate > 60 mL/min (>60) Glucose Level 226 MG/DL (74-106) H Calcium Level 10.3 MG/DL (8.5-10.1) H Phosphorus Level 2.6 MG/DL (2.5-4.9) Magnesium Level 2.5 MG/DL (1.8-2.4) H Total Bilirubin 0.2 MG/DL (0.2-1.0) Direct Bilirubin < 0.1 MG/DL (0.0-0.3) Aspartate Amino Transf (AST/SGOT) 14 U/L (15-37) L Alanine Aminotransferase (ALT/SGPT) 10 U/L (12-78) L Alkaline Phosphatase 218 U/L (46-116) H Total Protein 8.4 G/DL (6.4-8.2) H Albumin 1.8 G/DL (3.4-5.0) L Arterial Blood pH 7.485 (7.350-7.450) Arterial Blood Partial Pressure CO2 45.1 mmHg (35.0-45.0) H Arterial Blood Partial Pressure O2 105.6 mmHg (75.0-100.0) H Arterial Blood HCO3 33.2 mmol/L (22.0-26.0) H Arterial Blood Oxygen Saturation 97.8 % (95-100) Arterial Blood Base Excess 8.8 (-2-2) H Raz Test Positive Plan Problems: (1) Hypoxia (2) Severe sepsis Assessment & Plan: leukocytosis lactic acidosis anemia renal insufficiency on support in ICU dressings changed and care plan initiated cont abx trend labs if fluids am imaging ordered remains febrile cont abx cooling measures worsening respiratory cont support CT noted - unable to obtain consent for ct. medically necessary to ensure no intraabd process. recommend proceed with ct in patients best interest weaning possible trial extubation Non-Blanchable erythema noted to R and L earlobes. Erythematous, scaly pimple- like rash,some of which are scaly and others small papules noted to R and L axillae, upper R and L chest and back ,R and L groin areas. Pt observed to persistently scratch affected areas described. Incontinence Associated Dermatitis Buttocks, R and L Ischial tuberosities are erythematous,denuded with shearing and scattered satellite lesions. Per staff pt frequently removes or dislodges Condom cath. R Heel is boggy with non-blanchable erythema. L Heel is boggy with Non-Blanchable erythema. Pt presented on admission with Multiple Pressure Injuries. Sacral DTPI which extends into R and L Gluteal cheeks and is partially opened upper R gluteus (L)1 4cm x (W)15cm. DTPI noted within hypertrophic scar from previous Pressure injury. Base of wound is purpuric at rm cleft ,and indurated. Non-Blanchable erythema with additional shearing periwound. An area of induration with darker skin tone noted to L Ischium. Darker skin tone without induration R Ischium. Scrotum is erythematous and swollen. DTPI L Heel and Plantar L Heel(L)4cm x (W)3.5cm. Base of Pressure Injury roca colored Blister with darker center. Periwound is fluctuant with non-Blanchable erythema. DTPI R Heel (L)2.7cm x (W)4cm. Non-Blanchable erythema without induration/fluctuance R Hallux. Non-Blanchable erythema without induration/fluctuance L Hallux. Tx.Plan:Apply Cavilon Skin Barrier to both R and L ears.(Pad Oxygen Tubing as Needed.) Apply Moisture Barrier Paste to bilat groin and bilat ischial tuberosities with eqach Incontinence care. Apply Cavilon Skin Barrier to both heels. Cover each heel with Optifoam drsg. Change every 7 days and prn. Cleanse Sacral wound with Saline. Apply Therahoney. Apply Moisture Barrier Paste periwound. Cover with Optifoam drsg. Change every 3 days and prn. Apply Moisture Barrier Paste to Scrotum,R and L ischial tuberosities with each incontinence care. Apply Cavilon Skin Barrier to R and L Hallux. Cover each site with Optifoam drsgs. Change every 7 days and prn. Reposition at least every 2hours or as tolerated. Off-load heels with pillow. APM/ALEK Mattress overlay improving cont current care tube site okay DAILY ESTIMATED NEEDS: Needs based on Critical care, DM, Wound/ 62.73kg 22-30 kcals/kg 6028-9248 total kcals 1.25-2 g protein/kg 78-125 g total protein 25-30 mL/kg 3697-7913 total fluid mLs NUTRITION DIAGNOSIS: * Swallowing difficulty R/T dysphagia as evidenced by Pt is GT dep, currently orally intubated, off pressor support, on GT feeds. CURRENT TF:NPO ENTERAL NUTRITION RECOMMENDATIONS: Glucerna 1.2 @ 55ml/hr x 24 hrs to provide 1320ml, 1584kcal, 79g prot, 1063ml free water * Maintain current TF: meets 100 % est kcal/prot needs * HOB over 30 degrees * H2O flush of 180ml q 6hrs ADDITIONAL RECOMMENDATIONS: * Per SNF: HT=5'7" WT= 138lbs (as of Sep 13, 2020) * Monitor hemodynamic stability: NE @ 8mcg-> now off * Wound healing: TF rec @ goal provides 100% RDI add Vit C 500mg QD + Terrance BID via TF * Monitor lytes, replete as needed * Rec long acting insulin for improved BG control . (3) Dehydration (4) Hypernatremia (5) Clostridium difficile colitis (6) Staphylococcus aureus bacteremia (7) Hip fracture, left (8) Diabetes mellitus (9) History of hypertension (10) Severe protein-calorie malnutrition (11) Acute encephalopathy (12) Pressure Ulcer Of Sacral Region, Unstageable (13) Feeding by G-tube (14) Abdominal distention (15) Multiple drug resistant organism (MDRO) culture positive (16) Sepsis (17) History of CVA (cerebrovascular accident) (18) Parkinson disease James Breen Oct 15, 2020 15:48
[2020-10-15] MEDS ORDERED: Pamidronate Disodium Inj 60 MG in Sodium Chloride 550 ML IVPB ONE (17:00)
[2020-10-15 20:00] VITALS: BP 124/70
[2020-10-16] VITALS: BP 146/75
[2020-10-16] MEDS: Meropenem 1 GM in NS 55 ML IVPB SCH ×2 (02:52→09:29)
[2020-10-16 04:00] VITALS: BP 135/72
[2020-10-16] MEDS: Midodrine 10mg tab GT SCH ×3 (05:41→21:49)
[2020-10-16] MEDS: NovoLOG Insulin Flexpen SUBQ SCH ×4 (05:41→23:36)
[2020-10-16 08:00] VITALS: BP 132/69
[2020-10-16] MEDS: Ascorbic Acid 500mg tab GT SCH ×2 (09:29→21:49)
[2020-10-16] MEDS: Pantoprazole Inj IVP SCH ×2 (09:29→21:49)
[2020-10-16] MEDS: Heparin 5000 units/ml inj SUBQ SCH ×2 (09:30→21:51)
--- NOTE | 2020-10-16 10:12 | Infectious Diseases Prog Note ---
Assessment/Plan 80yo M with: Fevers Leukocytosis, improving Resp secretions Resp failure on vent 10/06 BCx NTD CXR: Improving bilateral interstitial and airspace opacities with mild persistent left lower lobe airspace disease. 10/08 Resp cx +Kleb pna, ronquillo-S 10/10 CT chest/Abd/pelvis: Bilateral dense lower lobe consolidation, presumab ly representing pneumonia, nonspecific as regards appearance. More ill-defined reticular upper lobe opacities are probably related. Somewhat heterogeneous perfusion of the left kidney. This could indicate nephritis, although appearance is somewhat similar to the previous exam and this could just be baseline appearance for this patient. 10/11 BCx NTD UA 10-15 WBC, UCx neg CONS bacteremia, recurrent 09/24 BCx 2/2 +CONS 09/25 BCx neg 09/28 BCx +CONS 09/30 BCx NTD Sepsis, septic shock GPC bacteremia UTI 11/15 ESBL P.mirabilis Pneumonia 11/15 ESBL P.mirabilis Febrile to 105, improving Leukocytosis to 15, improving 09/24 BCx 11/15 CONS UA 20-30 WBC, UCx ESBL P.mirabilis COVID rapid test neg, PCR neg CXR: 1. Coarse bibasilar interstitial lung markings, may represent atypical infectious process such as viral pneumonia versus pulmonary edema. 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 [facility] will continue to follow. Subjective Allergies: Coded Allergies: No Known Allergies (Unverified , 08/27/19) AF WBC improving to 9 yesterday, today NAD on Venturi mask Objective Last 24 Hour Vital Signs Date Time Temp Pulse Resp B/P (MAP) Pulse Ox O2 Delivery O2 Flow Rate FiO2 10/16/20 04:00 97.9 91 16 135/72 (93) 98 10/16/20 04:00 98 10/16/20 00:00 98.1 89 16 146/75 (98) 98 10/16/20 00:00 87 10/15/20 21:00 Venturi Mask 10.0 10/15/20 20:00 87 10/15/20 20:00 98.3 95 20 124/70 (88) 98 10/15/20 19:03 98 Venturi Mask 10.0 40 10/15/20 16:00 86 10/15/20 12:00 111 10/15/20 12:00 98.1 111 20 131/76 (94) 97 Height (Feet): 5 Height (Inches): 10.00 Weight (Pounds): 180 Gen: NAD HEENT: NCAT Pulm: BL chest rise Abd: Non-distended Ext: No c/c/e Skin: No visible rashes Neuro: Awake Laboratory Tests Test 10/15/20 18:39 POC Whole Blood Glucose 293 MG/DL (74-106) H Current Medications Medications (Trade) Dose Ordered Sig/Debi Route PRN Reason Start Time Stop Time Status Last Admin Dose Admin Acetaminophen (Tylenol) 650 mg Q4H PRN GT FEVER 10/03/20 01:15 11/02/20 01:14 10/14/20 13:34 Acetaminophen (Tylenol) 650 mg Q6H PRN GT Mild Pain (Pain Scale 1-3) 10/12/20 08:30 11/11/20 08:29 Ascorbic Acid (Vitamin C) 250 mg EVERY 12 HOURS GT 10/12/20 09:00 11/02/20 17:59 10/16/20 09:29 Dextrose (Dextrose 50%) 25 ml Q30M PRN IV Hypoglycemia 09/25/20 15:30 12/24/20 15:29 Dextrose (Dextrose 50%) 50 ml Q30M PRN IV Hypoglycemia 09/25/20 15:30 12/24/20 15:29 Heparin Sodium (Porcine) (Heparin 5000 units/ml) 5,000 units EVERY 12 HOURS SUBQ 09/25/20 09:00 11/09/20 08:59 10/16/20 09:30 Insulin Aspart (NovoLOG) Q6HR SUBQ 10/04/20 00:00 01/02/21 00:00 10/16/20 05:41 Meropenem 1 gm/ Sodium Chloride 55 ml @ 110 mls/hr Q8H IVPB 10/05/20 18:00 10/17/20 17:59 10/16/20 09:29 Midodrine (Pro-Amatine) 10 mg Q8HR GT 09/30/20 14:00 12/29/20 13:59 10/16/20 05:41 Ondansetron HCl (Zofran) 4 mg Q6H PRN IVP Nausea & Vomiting 09/25/20 00:15 10/25/20 00:14 Pantoprazole (Protonix) 40 mg Q12HR IVP 09/25/20 21:00 10/25/20 08:59 10/16/20 09:29 Polyethylene Glycol (Miralax) 17 gm DAILYPRN PRN ORAL Constipation 09/25/20 00:15 10/25/20 00:14 Marixa Oliva M.D. Oct 16, 2020 10:12
[2020-10-16 10:33] LABS: BASOPHILS % (AUTO) 2.1 % (0.0-2.0); EOSINOPHILS % (AUTO) 4.2 % (0.0-3.0); HEMATOCRIT 28.9 % (42.0-52.0); HEMOGLOBIN 9.1 G/DL (14.2-18.0); MEAN CORPUSCULAR VOLUME 83 FL (80-99); MONOCYTES % (AUTO) 8.5 % (1.0-10.0); NEUTROPHILS % (AUTO) 48.2 % (45.0-75.0); PLATELET COUNT 506 K/UL (150-450); RED CELL DISTRIBUTION WIDTH 16.5 % (11.6-14.8); WHITE BLOOD COUNT 10.1 K/UL (4.8-10.8)
[2020-10-16 11:03] LABS: ALANINE AMINOTRANSFERASE < 6 U/L (12-78); ALBUMIN 1.8 G/DL (3.4-5.0); ALBUMIN/GLOBULIN RATIO 0.3 (1.0-2.7); ALKALINE PHOSPHATASE 211 U/L (46-116); ANION GAP 3 mmol/L (5-15); ASPARTATE AMINO TRANSFERASE 20 U/L (15-37); BILIRUBIN,TOTAL 0.2 MG/DL (0.2-1.0); BLOOD UREA NITROGEN 23 mg/dL (7-18); CALCIUM 10.1 MG/DL (8.5-10.1); CARBON DIOXIDE 34 MMOL/L (21-32); CHLORIDE 105 MMOL/L (98-107); CREATININE 1.1 MG/DL (0.55-1.30); POTASSIUM 4.6 MMOL/L (3.5-5.1); SODIUM 142 MMOL/L (136-145)
[2020-10-16 11:25] LABS: PHOSPHORUS 3.2 MG/DL (2.5-4.9)
--- NOTE | 2020-10-16 11:26 | Pulmonology Progress Note ---
Subjective ROS Limited/Unobtainable: Yes Allergies: Coded Allergies: No Known Allergies (Unverified , 08/27/19) Subjective on tele on 40% VM no resp distress leukocytosis resolved, no fevers Objective Last 24 Hour Vital Signs Date Time Temp Pulse Resp B/P (MAP) Pulse Ox O2 Delivery O2 Flow Rate FiO2 10/16/20 04:00 97.9 91 16 135/72 (93) 98 10/16/20 04:00 98 10/16/20 00:00 98.1 89 16 146/75 (98) 98 10/16/20 00:00 87 10/15/20 21:00 Venturi Mask 10.0 10/15/20 20:00 87 10/15/20 20:00 98.3 95 20 124/70 (88) 98 10/15/20 19:03 98 Venturi Mask 10.0 40 10/15/20 16:00 86 10/15/20 12:00 111 10/15/20 12:00 98.1 111 20 131/76 (94) 97 Intake and Output 10/15/20 10/16/20 19:00 07:00 Output Total 1300 ml Balance -1300 ml Output Urine Total 1300 ml # Voids 1 # Bowel Movements 1 Objective Status: awake , weak, bedridden AA male HEENT: atraumatic, normocephalic, VM 40% Lungs: few isolated rhonchi Heart: SR Abdomen: soft, non-tender Extremities: no C/C/E Laboratory Tests 10/15/20 18:39: POC Whole Blood Glucose 293H 10/16/20 09:50: White Blood Count 10.1, Red Blood Count 3.50L, Hemoglobin 9.1L, Hematocrit 28.9L , Mean Corpuscular Volume 83, Mean Corpuscular Hemoglobin 26.0L, Mean Corpuscular Hemoglobin Concent 31.6L, Red Cell Distribution Width 16.5H, Platelet Count 506H, Mean Platelet Volume 9.3, Neutrophils (%) (Auto) 48.2, Lymphocytes (%) (Auto) 37.0, Monocytes (%) (Auto) 8.5, Eosinophils (%) (Auto) 4.2H, Basophils (%) (Auto) 2.1H, Sodium Level 142, Potassium Level 4.6, Chloride Level 105, Carbon Dioxide Level 34H, Anion Gap 3L, Blood Urea Nitrogen 23H, Creatinine 1.1, Estimat Glomerular Filtration Rate > 60, Glucose Level 240H, Calcium Level 10.1, Phosphorus Level [Pending], Magnesium Level [Pending], Total Bilirubin 0.2, Aspartate Amino Transf (AST/SGOT) 20, Alanine Aminotransferase (ALT/SGPT) < 6L, Alkaline Phosphatase 211H, C-Reactive Protein, Quantitative [Pending], Pro-B-Type Natriuretic Peptide [Pending], Total Protein 8.0, Albumin 1.8L, Globulin 6.2, Albumin/Globulin Ratio 0.3L 10/16/20 11:08: POC Whole Blood Glucose 227H Current Medications Medications (Trade) Dose Ordered Sig/Debi Route PRN Reason Start Time Stop Time Status Last Admin Dose Admin Acetaminophen (Tylenol) 650 mg Q4H PRN GT FEVER 10/03/20 01:15 11/02/20 01:14 10/14/20 13:34 Acetaminophen (Tylenol) 650 mg Q6H PRN GT Mild Pain (Pain Scale 1-3) 10/12/20 08:30 11/11/20 08:29 Ascorbic Acid (Vitamin C) 250 mg EVERY 12 HOURS GT 10/12/20 09:00 11/02/20 17:59 10/16/20 09:29 Dextrose (Dextrose 50%) 25 ml Q30M PRN IV Hypoglycemia 09/25/20 15:30 12/24/20 15:29 Dextrose (Dextrose 50%) 50 ml Q30M PRN IV Hypoglycemia 09/25/20 15:30 12/24/20 15:29 Heparin Sodium (Porcine) (Heparin 5000 units/ml) 5,000 units EVERY 12 HOURS SUBQ 09/25/20 09:00 11/09/20 08:59 10/16/20 09:30 Insulin Aspart (NovoLOG) Q6HR SUBQ 10/04/20 00:00 01/02/21 00:00 10/16/20 05:41 Meropenem 1 gm/ Sodium Chloride 55 ml @ 110 mls/hr Q8H IVPB 10/05/20 18:00 10/17/20 17:59 10/16/20 09:29 Midodrine (Pro-Amatine) 10 mg Q8HR GT 09/30/20 14:00 12/29/20 13:59 10/16/20 05:41 Ondansetron HCl (Zofran) 4 mg Q6H PRN IVP Nausea & Vomiting 09/25/20 00:15 10/25/20 00:14 Pantoprazole (Protonix) 40 mg Q12HR IVP 09/25/20 21:00 10/25/20 08:59 10/16/20 09:29 Polyethylene Glycol (Miralax) 17 gm DAILYPRN PRN ORAL Constipation 09/25/20 00:15 10/25/20 00:14 Assessment/Plan Assessment/Plan ASSESSMENT Acute respiratory failure , requiring intubation, s/p extubation Sepsis with shock CONS bacteremia- contaminant Proteus ESBL UTI Pneumonia , possible aspiration KELLY- > resolved Dysphagia, feeding by G-tube DM Anemia Hx of CVA Hx of hypertension Parkinson disease PLAN OF CARE tele O2 titrate to keep sat > 92% pulm toilet CXR 10/13 with improvement strict aspiration precaution DVT and GI prophylaxis abx as per ID recs, now off abx SCX 09/28 + Proteus ESBL BCX 09/28 + CONS fup BCX 09/30 NGTD; prior BCX 09/26 NGT , CONS likely contaminant COVID-19 negative C dif NGT BCX 10/11 NGTD UCX 10/11 NGT SCX 10/08 + Klebsiella, Lillian BP support with midodrine s/p gentle IV hydration, monitor volumes BS management with SSI monitor renal parameters, electrolytes ,correct electrolytes as needed ,avoid nephrotoxic KELLY resolved monitor H&H with goal to keep Hgb above 7 supportive care DNR/DNI status now dc plan to SNF in am ( no lining caser/dc program planner on staff today) case discussed and evaluated by supervising physician Kim Mahoney NP Oct 16, 2020 11:26 Guy Roper MD Oct 16, 2020 20:42
[2020-10-16 12:00] VITALS: BP 151/78
--- NOTE | 2020-10-16 13:13 | Nephrology Progress Note ---
Assessment/Plan Problem List: (1) KELLY (acute kidney injury) (2) Dehydration (3) Hypernatremia (4) Severe sepsis (5) History of CVA (cerebrovascular accident) (6) Parkinson disease (7) Acute respiratory failure (8) Elevated lipase Assessment KELLY, Hypernatremia, dehydration, free water deficit Sepsis Acute respiratory failure requiring intubation and mechanical ventilation Diabetes mellitus ouk-mh-fasciaz GT feeding History of CVA History of hypertension Parkinson's disease Elevated lipase Plan October 16: Labs reviewed. Serum calcium lowering. Electrolyte within acceptable range. Continue to monitor renal parameters. October 15: Labs reviewed. Serum sodium and serum calcium elevated. D5W 500 cc ordered. Pamidronate 60 mg IV ordered for high calcium. Continue to monitor chemistries. October 14: On Venturi mask. Labs reviewed. Renal parameters stable. Electrolytes within acceptable range. October 13: Patient on BiPAP. Gradually improving. Labs reviewed. Renal parameters electrolytes stable. Will give 1 L of D5W for mildly elevated serum sodium. Continue per consultants. October 12: Patient extubated yesterday. Currently on BiPAP. Labs reviewed. Remains full code. Stable from renal standpoint view. Continue post extubation pulmonary care. October 11: Labs reviewed. Renal parameters stable. Remains intubated. Full code. Continue per consultants. October 10: Labs reviewed. Renal parameters stable. Continue per consultants. Continue to monitor renal parameters. October 09: Labs reviewed. K-Phos and 1 L D5W ordered. Continue per consultants. Continue to monitor electrolytes and renal parameters. October 08: No CHEM panel drawn today. Will check lab tomorrow. Continue per consultants. October 07: Labs reviewed. Abnormal electrolytes addressed. Bolus of 500 cc D5W for elevated serum sodium given. Continue to monitor electrolytes and renal parameters. October 06: Labs reviewed. K-Phos replaced. Will give another liter of D5W. Continue to monitor electrolytes and renal parameters. October 05: Labs reviewed. Serum sodium rising. 1 L D5W IV ordered. Continue to monitor electrolytes. Continue per consultants. October 04: No CHEM panel was done today. Patient remain intubated on ventilator and full code. We will order labs tomorrow. Continue per consultants. October 03: Discussed with RN. Labs are reviewed. Potassium and phosphate replacement ordered. Continue per consultants. Patient remains full code intubated on ventilator. Serum creatinine up to 1.5. Continue to monitor renal parameters. October 02: Remains in ICU and intubated. Labs reviewed. Serum creatinine 1.3. Serum sodium slightly elevated. Continue to monitor renal parameters and electrolytes. October 01: Seen in ICU. Discussed with RN. No chemistry panel done today. Blood pressure hovering around 100 systolic. Will check labs tomorrow. Continue per consultants. September 30: Labs reviewed. Renal parameters stable. Blood pressure hovering around 90s systolic. We will add midodrine through GT tube. Continue per consultants. September 29: Labs reviewed. Serum creatinine down to 1.3 and electrolytes reviewed. Abnormal electrolytes addressed. Continue per consultants. September 28: Labs reviewed. Creatinine 1.6 unchanged. Hypernatremia persists. Will give 1 L of D5W. Continue to monitor renal parameters and electrolytes. Continue per consultants. September 27: Labs reviewed. Serum sodium lowering. Serum creatinine lowering. Blood sugar somewhat better controlled. Patient continues to be on free water through tube feeding. Continue to monitor renal parameters and electrolytes. Abnormal electrolytes addressed. September 26: IV fluids stopped. Patient receiving free water reviewed NG tube. Patient full code. Intubated on ventilator. Discussed with JOHNNY Christensen. Continue to monitor renal parameters. Serum creatinine lower but abnormal electrolyte persists and was addressed. Previously: IV fluid half-normal saline 125 cc an hour Albumin fluid challenge Monitor electrolytes Monitor renal parameters Hold blood pressure medication since blood pressure low Per orders, per consultants Subjective ROS Limited/Unobtainable: No Constitutional: Reports: malaise, weakness Objective Objective Last 24 Hour Vital Signs Date Time Temp Pulse Resp B/P (MAP) Pulse Ox O2 Delivery O2 Flow Rate FiO2 10/16/20 12:00 98.9 95 20 151/78 (102) 98 10/16/20 04:00 97.9 91 16 135/72 (93) 98 10/16/20 04:00 98 10/16/20 00:00 98.1 89 16 146/75 (98) 98 10/16/20 00:00 87 10/15/20 21:00 Venturi Mask 10.0 10/15/20 20:00 87 10/15/20 20:00 98.3 95 20 124/70 (88) 98 10/15/20 19:03 98 Venturi Mask 10.0 40 10/15/20 16:00 86 l Intake and Output 10/15/20 10/16/20 19:00 07:00 Output Total 1300 ml Balance -1300 ml Output Urine Total 1300 ml # Voids 1 # Bowel Movements 1 Laboratory Tests 10/15/20 18:39: POC Whole Blood Glucose 293H 10/16/20 09:50: White Blood Count 10.1, Red Blood Count 3.50L, Hemoglobin 9.1L, Hematocrit 28.9L , Mean Corpuscular Volume 83, Mean Corpuscular Hemoglobin 26.0L, Mean Corpuscular Hemoglobin Concent 31.6L, Red Cell Distribution Width 16.5H, Platelet Count 506H, Mean Platelet Volume 9.3, Neutrophils (%) (Auto) 48.2, Lymphocytes (%) (Auto) 37.0, Monocytes (%) (Auto) 8.5, Eosinophils (%) (Auto) 4.2H, Basophils (%) (Auto) 2.1H, Sodium Level 142, Potassium Level 4.6, Chloride Level 105, Carbon Dioxide Level 34H, Anion Gap 3L, Blood Urea Nitrogen 23H, Creatinine 1.1, Estimat Glomerular Filtration Rate > 60, Glucose Level 240H, Calcium Level 10.1, Phosphorus Level 3.2, Magnesium Level 2.4, Total Bilirubin 0.2, Aspartate Amino Transf (AST/SGOT) 20, Alanine Aminotransferase (ALT/SGPT) < 6L, Alkaline Phosphatase 211H, C-Reactive Protein, Quantitative [Pending], Pro-B-Type Natriuretic Peptide 237H, Total Protein 8.0, Albumin 1.8L, Globulin 6.2, Albumin/Globulin Ratio 0.3L 10/16/20 11:08: POC Whole Blood Glucose 227H Height (Feet): 5 Height (Inches): 10.00 Weight (Pounds): 180 General Appearance: no apparent distress EENT: other - On Venturi mask Cardiovascular: tachycardia Respiratory/Chest: decreased breath sounds Abdomen: distended Eddie Nelson MD Oct 16, 2020 13:13
--- NOTE | 2020-10-16 13:23 | Surgery Progress Note ---
Surgery Progress Note Subjective Additional Comments afebrile, HD stable, labs stable comfortable no complaints Objective Last 24 Hour Vital Signs Date Time Temp Pulse Resp B/P (MAP) Pulse Ox O2 Delivery O2 Flow Rate FiO2 10/16/20 12:00 98.9 95 20 151/78 (102) 98 10/16/20 04:00 97.9 91 16 135/72 (93) 98 10/16/20 04:00 98 10/16/20 00:00 98.1 89 16 146/75 (98) 98 10/16/20 00:00 87 10/15/20 21:00 Venturi Mask 10.0 10/15/20 20:00 87 10/15/20 20:00 98.3 95 20 124/70 (88) 98 10/15/20 19:03 98 Venturi Mask 10.0 40 10/15/20 16:00 86 I&O Intake and Output 10/15/20 10/16/20 19:00 07:00 Output Total 1300 ml Balance -1300 ml Output Urine Total 1300 ml # Voids 1 # Bowel Movements 1 Dressing: saturated Cardiovascular: RSR Respiratory: decreased breath sounds Abdomen: non-tender, present bowel sounds, non-distended Extremities: no tenderness, no cyanosis Laboratory Tests Test 10/15/20 18:39 10/16/20 09:50 10/16/20 11:08 POC Whole Blood Glucose 293 MG/DL (74-106) H 227 MG/DL (74-106) H White Blood Count 10.1 K/UL (4.8-10.8) Red Blood Count 3.50 M/UL (4.70-6.10) L Hemoglobin 9.1 G/DL (14.2-18.0) L Hematocrit 28.9 % (42.0-52.0) L Mean Corpuscular Volume 83 FL (80-99) Mean Corpuscular Hemoglobin 26.0 PG (27.0-31.0) L Mean Corpuscular Hemoglobin Concent 31.6 G/DL (32.0-36.0) L Red Cell Distribution Width 16.5 % (11.6-14.8) H Platelet Count 506 K/UL (150-450) H Mean Platelet Volume 9.3 FL (6.5-10.1) Neutrophils (%) (Auto) 48.2 % (45.0-75.0) Lymphocytes (%) (Auto) 37.0 % (20.0-45.0) Monocytes (%) (Auto) 8.5 % (1.0-10.0) Eosinophils (%) (Auto) 4.2 % (0.0-3.0) H Basophils (%) (Auto) 2.1 % (0.0-2.0) H Sodium Level 142 MMOL/L (136-145) Potassium Level 4.6 MMOL/L (3.5-5.1) Chloride Level 105 MMOL/L (98-107) Carbon Dioxide Level 34 MMOL/L (21-32) H Anion Gap 3 mmol/L (5-15) L Blood Urea Nitrogen 23 mg/dL (7-18) H Creatinine 1.1 MG/DL (0.55-1.30) Estimat Glomerular Filtration Rate > 60 mL/min (>60) Glucose Level 240 MG/DL (74-106) H Calcium Level 10.1 MG/DL (8.5-10.1) Phosphorus Level 3.2 MG/DL (2.5-4.9) Magnesium Level 2.4 MG/DL (1.8-2.4) Total Bilirubin 0.2 MG/DL (0.2-1.0) Aspartate Amino Transf (AST/SGOT) 20 U/L (15-37) Alanine Aminotransferase (ALT/SGPT) < 6 U/L (12-78) L Alkaline Phosphatase 211 U/L (46-116) H C-Reactive Protein, Quantitative Pending Pro-B-Type Natriuretic Peptide 237 pg/mL (0-125) H Total Protein 8.0 G/DL (6.4-8.2) Albumin 1.8 G/DL (3.4-5.0) L Globulin 6.2 g/dL Albumin/Globulin Ratio 0.3 (1.0-2.7) L Plan Problems: (1) Hypoxia (2) Severe sepsis Assessment & Plan: leukocytosis lactic acidosis anemia renal insufficiency on support in ICU dressings changed and care plan initiated cont abx trend labs if fluids am imaging ordered remains febrile cont abx cooling measures worsening respiratory cont support CT noted - unable to obtain consent for ct. medically necessary to ensure no intraabd process. recommend proceed with ct in patients best interest weaning possible trial extubation Non-Blanchable erythema noted to R and L earlobes. Erythematous, scaly pimple- like rash,some of which are scaly and others small papules noted to R and L axillae, upper R and L chest and back ,R and L groin areas. Pt observed to persistently scratch affected areas described. Incontinence Associated Dermatitis Buttocks, R and L Ischial tuberosities are erythematous,denuded with shearing and scattered satellite lesions. Per staff pt frequently removes or dislodges Condom cath. R Heel is boggy with non-blanchable erythema. L Heel is boggy with Non-Blanchable erythema. Pt presented on admission with Multiple Pressure Injuries. Sacral DTPI which extends into R and L Gluteal cheeks and is partially opened upper R gluteus (L)14cm x (W)15cm. DTPI noted within hypertrophic scar from previous Pressure injury. Base of wound is purpuric at cleft ,and indurated. Non-Blanchable erythema with additional shearing periwound. An area of induration with darker skin tone noted to L Ischium. Darker skin tone without induration R Ischium. Scrotum is erythematous and swollen. DTPI L Heel and Plantar L Heel(L)4cm x (W)3.5cm. Base of Pressure Injury roca colored Blister with darker center. Periwound is fluctuant with non-Blanchable erythema. DTPI R Heel (L)2.7cm x (W)4cm. Non-Blanchable erythema without induration/fluctuance R Hallux. Non-Blanchable erythema without induration/fluctuance L Hallux. Tx.Plan:Apply Cavilon Skin Barrier to both R and L ears.(Pad Oxygen Tubing as Needed.) Apply Moisture Barrier Paste to bilat groin and bilat ischial tuberosities with eqach Incontinence care. Apply Cavilon Skin Barrier to both heels. Cover each heel with Optifoam drsg. Change every 7 days and prn. Cleanse Sacral wound with Saline. Apply Therahoney. Apply Moisture Barrier Paste periwound. Cover with Optifoam drsg. Change every 3 days and prn. Apply Moisture Barrier Paste to Scrotum,R and L ischial tuberosities with each incontinence care. Apply Cavilon Skin Barrier to R and L Hallux. Cover each site with Optifoam drsgs. Change every 7 days and prn. Reposition at least every 2hours or as tolerated. Off-load heels with pillow. APM/ALEK Mattress overlay improving cont current care tube site okay DAILY ESTIMATED NEEDS: Needs based on Critical care, DM, Wound/ 62.73kg 22-30 kcals/kg 0794-6505 total kcals 1.25-2 g protein/kg 78-125 g total protein 25-30 mL/kg 6140-8849 total fluid mLs NUTRITION DIAGNOSIS: * Swallowing difficulty R/T dysphagia as evidenced by Pt is GT dep, currently orally intubated, off pressor support, on GT feeds. CURRENT TF:NPO ENTERAL NUTRITION RECOMMENDATIONS: Glucerna 1.2 @ 55ml/hr x 24 hrs to provide 1320ml, 1584kcal, 79g prot, 1063ml free water * Maintain current TF: meets 100 % est kcal/prot needs * HOB over 30 degrees * H2O flush of 180ml q 6hrs ADDITIONAL RECOMMENDATIONS: * Per SNF: HT=5'7" WT= 138lbs (as of Sep 13, 2020) * Monitor hemodynamic stability: NE @ 8mcg-> now off * Wound healing: TF rec @ goal provides 100% RDI add Vit C 500mg QD + Terrance BID via TF * Monitor lytes, replete as needed * Rec long acting insulin for improved BG control . (3) Dehydration (4) Hypernatremia (5) Clostridium difficile colitis (6) Staphylococcus aureus bacteremia (7) Hip fracture, left (8) Diabetes mellitus (9) History of hypertension (10) Severe protein-calorie malnutrition (11) Acute encephalopathy (12) Pressure Ulcer Of Sacral Region, Unstageable (13) Feeding by G-tube (14) Abdominal distention (15) Multiple drug resistant organism (MDRO) culture positive (16) Sepsis (17) History of CVA (cerebrovascular accident) (18) Parkinson disease James Breen Oct 16, 2020 13:23
[2020-10-16] MEDS ORDERED: Tubing IV Secondary IV ONE (15:23)
[2020-10-16] MEDS ORDERED: NS 275ml ONE (15:23)
[2020-10-16] MEDS ORDERED: NS 500ML ONE (15:23)
--- NOTE | 2020-10-16 15:27 | Internal Med Progress Note ---
Subjective Date of Service: Oct 16, 2020 Physician Name Tello Cobb Attending Physician Cirilo Rome MD Current Medications Medications (Trade) Dose Ordered Sig/Debi Route PRN Reason Start Time Stop Time Status Last Admin Dose Admin Acetaminophen (Tylenol) 650 mg Q4H PRN GT FEVER 10/03/20 01:15 11/02/20 01:14 10/14/20 13:34 Acetaminophen (Tylenol) 650 mg Q6H PRN GT Mild Pain (Pain Scale 1-3) 10/12/20 08:30 11/11/20 08:29 Ascorbic Acid (Vitamin C) 250 mg EVERY 12 HOURS GT 10/12/20 09:00 11/02/20 17:59 10/16/20 09:29 Dextrose (Dextrose 50%) 25 ml Q30M PRN IV Hypoglycemia 09/25/20 15:30 12/24/20 15:29 Dextrose (Dextrose 50%) 50 ml Q30M PRN IV Hypoglycemia 09/25/20 15:30 12/24/20 15:29 Heparin Sodium (Porcine) (Heparin 5000 units/ml) 5,000 units EVERY 12 HOURS SUBQ 09/25/20 09:00 11/09/20 08:59 10/16/20 09:30 Insulin Aspart (NovoLOG) Q6HR SUBQ 10/04/20 00:00 01/02/21 00:00 10/16/20 12:53 Midodrine (Pro-Amatine) 10 mg Q8HR GT 09/30/20 14:00 12/29/20 13:59 10/16/20 12:54 Ondansetron HCl (Zofran) 4 mg Q6H PRN IVP Nausea & Vomiting 09/25/20 00:15 10/25/20 00:14 Pantoprazole (Protonix) 40 mg Q12HR IVP 09/25/20 21:00 10/25/20 08:59 10/16/20 09:29 Polyethylene Glycol (Miralax) 17 gm DAILYPRN PRN ORAL Constipation 09/25/20 00:15 10/25/20 00:14 Allergies: Coded Allergies: No Known Allergies (Unverified , 08/27/19) ROS Limited/Unobtainable: Yes Subjective 80 YO M admitted with respiratory failure. Extubated 10/11/20; on venturi mask. Cover for Int Med-DR Rome. Objective Last Vital Signs Date Time Temp Pulse Resp B/P (MAP) Pulse Ox O2 Delivery O2 Flow Rate FiO2 10/16/20 12:00 98.9 95 20 151/78 (102) 98 10/15/20 21:00 Venturi Mask 10.0 10/15/20 19:03 40 Laboratory Tests Test 10/15/20 18:39 10/16/20 09:50 10/16/20 11:08 POC Whole Blood Glucose 293 MG/DL (74-106) H 227 MG/DL (74-106) H White Blood Count 10.1 K/UL (4.8-10.8) Red Blood Count 3.50 M/UL (4.70-6.10) L Hemoglobin 9.1 G/DL (14.2-18.0) L Hematocrit 28.9 % (42.0-52.0) L Mean Corpuscular Volume 83 FL (80-99) Mean Corpuscular Hemoglobin 26.0 PG (27.0-31.0) L Mean Corpuscular Hemoglobin Concent 31.6 G/DL (32.0-36.0) L Red Cell Distribution Width 16.5 % (11.6-14.8) H Platelet Count 506 K/UL (150-450) H Mean Platelet Volume 9.3 FL (6.5-10.1) Neutrophils (%) (Auto) 48.2 % (45.0-75.0) Lymphocytes (%) (Auto) 37.0 % (20.0-45.0) Monocytes (%) (Auto) 8.5 % (1.0-10.0) Eosinophils (%) (Auto) 4.2 % (0.0-3.0) H Basophils (%) (Auto) 2.1 % (0.0-2.0) H Sodium Level 142 MMOL/L (136-145) Potassium Level 4.6 MMOL/L (3.5-5.1) Chloride Level 105 MMOL/L (98-107) Carbon Dioxide Level 34 MMOL/L (21-32) H Anion Gap 3 mmol/L (5-15) L Blood Urea Nitrogen 23 mg/dL (7-18) H Creatinine 1.1 MG/DL (0.55-1.30) Estimat Glomerular Filtration Rate > 60 mL/min (>60) Glucose Level 240 MG/DL (74-106) H Calcium Level 10.1 MG/DL (8.5-10.1) Phosphorus Level 3.2 MG/DL (2.5-4.9) Magnesium Level 2.4 MG/DL (1.8-2.4) Total Bilirubin 0.2 MG/DL (0.2-1.0) Aspartate Amino Transf (AST/SGOT) 20 U/L (15-37) Alanine Aminotransferase (ALT/SGPT) < 6 U/L (12-78) L Alkaline Phosphatase 211 U/L (46-116) H C-Reactive Protein, Quantitative Pending Pro-B-Type Natriuretic Peptide 237 pg/mL (0-125) H Total Protein 8.0 G/DL (6.4-8.2) Albumin 1.8 G/DL (3.4-5.0) L Globulin 6.2 g/dL Albumin/Globulin Ratio 0.3 (1.0-2.7) L Intake and Output 10/15/20 10/16/20 19:00 07:00 Output Total 1300 ml Balance -1300 ml Output Urine Total 1300 ml # Voids 1 # Bowel Movements 1 Objective PHYSICAL EXAMINATION: GENERAL: The patient is well-developed and well-nourished male, who is intubated and sedated. HEENT: Eyes, pupils are equal responsive to light and accommodation. Extraocular movements are intact. NECK: Supple without lymphadenopathy. CHEST: Venturi mask; Decreased breath sounds bilateral bases, otherwise without wheezes or rales. CARDIOVASCULAR: Regular rate. S1 and S2 normal without murmurs, rubs, or gallops. ABDOMEN: Soft, nontender, and nondistended. Positive bowel sounds. No evidence of hepatosplenomegaly. Currently, no rebound or guarding noted. EXTREMITIES: Negative for clubbing, cyanosis, or edema. RECTAL/GENITAL: Not performed. NEUROLOGIC: Unable to assess Assessment/Plan Assessment/Plan ASSESSMENT: This is a 80-year-old male. 1. Respiratory failure. 2. Bilateral pneumonia. 3. Hypertension. 4. Diabetes type 2. 5. Hypercholesterolemia. 6. Parkinson disease. 7. COVID-19 negative. 8. Ulcerative proctitis. 9. Benign prostatic hypertrophy. 10. Gastroesophageal reflux disease. 11. Urinary tract infection=proteus mirabilis 12. Sepsis=coag neg staph TREATMENT: 1. Pneumonia/respiratory failure. Infectious diseases = Drs. Harris/Pj. [facility] Pulmonary/Critical care= Dr. Latanya Mckeon. S/P extubation 10/11/20; on BIPAP ABX= vancomycin, amikacin, and ertapenem. Follow recommendation of Infectious Diseases. 2. Urinary tract infection. ABX= Meropenem. Infectious Disease consultation = Dr. Harris. 3. Hypertension. The patient is currently hypotensive. 4. Diabetes type 2. NovoLog sliding scale has been instituted. 5. Hypercholesterolemia. Continue simvastatin as above. 6. Parkinson disease. 7. Ulcerative proctitis. 8. Benign prostatic hypertrophy. 9. Gastroesophageal reflux disease. 10. Dysphagia. The patient is status post PEG placement. Tello Cobb MD Oct 16, 2020 15:27
[2020-10-16 16:00] VITALS: BP 136/77
[2020-10-16 20:00] VITALS: BP 96/61
[2020-10-17] VITALS: BP 127/64
[2020-10-17 04:00] VITALS: BP 118/69
[2020-10-17] MEDS: Midodrine 10mg tab GT SCH (05:45)
[2020-10-17] MEDS: NovoLOG Insulin Flexpen SUBQ SCH ×2 (05:46→11:29)
[2020-10-17 08:00] VITALS: BP 142/74
[2020-10-17] MEDS: Ascorbic Acid 500mg tab GT SCH (08:33)
[2020-10-17] MEDS: Pantoprazole Inj IVP SCH (08:33)
[2020-10-17] MEDS: Heparin 5000 units/ml inj SUBQ SCH (08:53)
--- NOTE | 2020-10-17 09:12 | Infectious Diseases Prog Note ---
Assessment/Plan 80yo M with: Fevers Leukocytosis, improving Resp secretions Resp failure on vent 10/06 BCx NTD CXR: Improving bilateral interstitial and airspace opacities with mild persistent left lower lobe airspace disease. 10/08 Resp cx +Kleb pna, ronquillo-S 10/10 CT chest/Abd/pelvis: Bilateral dense lower lobe consolidation, presumab ly representing pneumonia, nonspecific as regards appearance. More ill-defined reticular upper lobe opacities are probably related. Somewhat heterogeneous perfusion of the left kidney. This could indicate nephritis, although appearance is somewhat similar to the previous exam and this could just be baseline appearance for this patient. 10/11 BCx NTD UA 10-15 WBC, UCx neg CONS bacteremia, recurrent 09/24 BCx 2/2 +CONS 09/25 BCx neg 09/28 BCx +CONS 09/30 BCx NTD Sepsis, septic shock GPC bacteremia UTI 2/ ESBL P.mirabilis Pneumonia 11/15 ESBL P.mirabilis Febrile to 105, improving Leukocytosis to 15, improving 09/24 BCx 11/15 CONS UA 20-30 WBC, UCx ESBL P.mirabilis COVID rapid test neg, PCR neg CXR: 1. Coarse bibasilar interstitial lung markings, may represent atypical infectious process such as viral pneumonia versus pulmonary edema. 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 [facility] will continue to follow. Subjective Allergies: Coded Allergies: No Known Allergies (Unverified , 08/27/19) AF NAD Off abx WBC 8.4 Objective Last 24 Hour Vital Signs Date Time Temp Pulse Resp B/P (MAP) Pulse Ox O2 Delivery O2 Flow Rate FiO2 10/17/20 07:50 87 18 99 Venturi Mask 40 10/17/20 07:50 99 Venturi Mask 10.0 40 10/17/20 04:00 99.2 97 16 118/69 (85) 99 10/17/20 04:00 81 10/17/20 00:00 83 10/17/20 00:00 99.1 89 17 127/64 (85) 100 10/16/20 21:00 Venturi Mask 10.0 10/16/20 20:00 100 10/16/20 20:00 98.9 99 15 96/61 (73) 99 10/16/20 19:00 99 Venturi Mask 10.0 40 10/16/20 16:00 87 10/16/20 16:00 99.0 93 20 136/77 (96) 97 10/16/20 12:00 98.9 95 20 151/78 (102) 98 10/16/20 12:00 93 Height (Feet): 5 Height (Inches): 10.00 Weight (Pounds): 180 Gen: NAD HEENT: NCAT Pulm: BL chest rise Abd: Non-distended Ext: No c/c/e Skin: No visible rashes Neuro: Awake Laboratory Tests Test 10/16/20 09:50 10/16/20 11:08 10/16/20 18:33 10/16/20 23:30 White Blood Count 10.1 K/UL (4.8-10.8) Red Blood Count 3.50 M/UL (4.70-6.10) L Hemoglobin 9.1 G/DL (14.2-18.0) L Hematocrit 28.9 % (42.0-52.0) L Mean Corpuscular Volume 83 FL (80-99) Mean Corpuscular Hemoglobin 26.0 PG (27.0-31.0) L Mean Corpuscular Hemoglobin Concent 31.6 G/DL (32.0-36.0) L Red Cell Distribution Width 16.5 % (11.6-14.8) H Platelet Count 506 K/UL (150-450) H Mean Platelet Volume 9.3 FL (6.5-10.1) Neutrophils (%) (Auto) 48.2 % (45.0-75.0) Lymphocytes (%) (Auto) 37.0 % (20.0-45.0) Monocytes (%) (Auto) 8.5 % (1.0-10.0) Eosinophils (%) (Auto) 4.2 % (0.0-3.0) H Basophils (%) (Auto) 2.1 % (0.0-2.0) H Sodium Level 142 MMOL/L (136-145) Potassium Level 4.6 MMOL/L (3.5-5.1) Chloride Level 105 MMOL/L (98-107) Carbon Dioxide Level 34 MMOL/L (21-32) H Anion Gap 3 mmol/L (5-15) L Blood Urea Nitrogen 23 mg/dL (7-18) H Creatinine 1.1 MG/DL (0.55-1.30) Estimat Glomerular Filtration Rate > 60 mL/min (>60) Glucose Level 240 MG/DL (74-106) H Calcium Level 10.1 MG/DL (8.5-10.1) Phosphorus Level 3.2 MG/DL (2.5-4.9) Magnesium Level 2.4 MG/DL (1.8-2.4) Total Bilirubin 0.2 MG/DL (0.2-1.0) Aspartate Amino Transf (AST/SGOT) 20 U/L (15-37) Alanine Aminotransferase (ALT/SGPT) < 6 U/L (12-78) L Alkaline Phosphatase 211 U/L (46-116) H C-Reactive Protein, Quantitative 69.9 mg/L (<5) Pro-B-Type Natriuretic Peptide 237 pg/mL (0-125) H Total Protein 8.0 G/DL (6.4-8.2) Albumin 1.8 G/DL (3.4-5.0) L Globulin 6.2 g/dL Albumin/Globulin Ratio 0.3 (1.0-2.7) L POC Whole Blood Glucose 227 MG/DL (74-106) H 239 MG/DL (74-106) H 258 MG/DL (74-106) H Current Medications Medications (Trade) Dose Ordered Sig/Debi Route PRN Reason Start Time Stop Time Status Last Admin Dose Admin Acetaminophen (Tylenol) 650 mg Q4H PRN GT FEVER 10/03/20 01:15 11/02/20 01:14 10/14/20 13:34 Acetaminophen (Tylenol) 650 mg Q6H PRN GT Mild Pain (Pain Scale 1-3) 10/12/20 08:30 11/11/20 08:29 Ascorbic Acid (Vitamin C) 250 mg EVERY 12 HOURS GT 10/12/20 09:00 11/02/20 17:59 10/17/20 08:33 Dextrose (Dextrose 50%) 25 ml Q30M PRN IV Hypoglycemia 09/25/20 15:30 12/24/20 15:29 Dextrose (Dextrose 50%) 50 ml Q30M PRN IV Hypoglycemia 09/25/20 15:30 12/24/20 15:29 Heparin Sodium (Porcine) (Heparin 5000 units/ml) 5,000 units EVERY 12 HOURS SUBQ 09/25/20 09:00 11/09/20 08:59 10/17/20 08:53 Insulin Aspart (NovoLOG) Q6HR SUBQ 10/04/20 00:00 01/02/21 00:00 10/17/20 05:46 Midodrine (Pro-Amatine) 10 mg Q8HR GT 09/30/20 14:00 12/29/20 13:59 10/17/20 05:45 Ondansetron HCl (Zofran) 4 mg Q6H PRN IVP Nausea & Vomiting 09/25/20 00:15 10/25/20 00:14 Pantoprazole (Protonix) 40 mg Q12HR IVP 09/25/20 21:00 10/25/20 08:59 10/17/20 08:33 Polyethylene Glycol (Miralax) 17 gm DAILYPRN PRN ORAL Constipation 09/25/20 00:15 10/25/20 00:14 Marixa Oliva M.D. Oct 17, 2020 09:12
--- NOTE | 2020-10-17 09:35 | Pulmonology Progress Note ---
Subjective ROS Limited/Unobtainable: Yes Allergies: Coded Allergies: No Known Allergies (Unverified , 08/27/19) Subjective on tele on 40% VM no resp distress leukocytosis resolved, no fevers CRP 69.9 10/16 s/p abx DNR/DNI status Objective Last 24 Hour Vital Signs Date Time Temp Pulse Resp B/P (MAP) Pulse Ox O2 Delivery O2 Flow Rate FiO2 10/17/20 07:50 87 18 99 Venturi Mask 40 10/17/20 07:50 99 Venturi Mask 10.0 40 10/17/20 04:00 99.2 97 16 118/69 (85) 99 10/17/20 04:00 81 10/17/20 00:00 83 10/17/20 00:00 99.1 89 17 127/64 (85) 100 10/16/20 21:00 Venturi Mask 10.0 10/16/20 20:00 100 10/16/20 20:00 98.9 99 15 96/61 (73) 99 10/16/20 19:00 99 Venturi Mask 10.0 40 10/16/20 16:00 87 10/16/20 16:00 99.0 93 20 136/77 (96) 97 10/16/20 12:00 98.9 95 20 151/78 (102) 98 10/16/20 12:00 93 Intake and Output 10/16/20 10/17/20 19:00 07:00 Intake Total 605 ml 55 ml Output Total 1300 ml 1000 ml Balance -695 ml -945 ml Tube Feeding 605 ml 55 ml Output Urine Total 1300 ml 1000 ml Objective Status: awake , weak, bedridden AA male HEENT: atraumatic, normocephalic, VM 40% Lungs: few isolated rhonchi Heart: SR Abdomen: soft, non-tender Extremities: no C/C/E Laboratory Tests 10/16/20 09:50: White Blood Count 10.1, Red Blood Count 3.50L, Hemoglobin 9.1L, Hematocrit 28.9L , Mean Corpuscular Volume 83, Mean Corpuscular Hemoglobin 26.0L, Mean Corpuscular Hemoglobin Concent 31.6L, Red Cell Distribution Width 16.5H, Platelet Count 506H, Mean Platelet Volume 9.3, Neutrophils (%) (Auto) 48.2, Lymphocytes (%) (Auto) 37.0, Monocytes (%) (Auto) 8.5, Eosinophils (%) (Auto) 4.2H, Basophils (%) (Auto) 2.1H, Sodium Level 142, Potassium Level 4.6, Chloride Level 105, Carbon Dioxide Level 34H, Anion Gap 3L, Blood Urea Nitrogen 23H, Crea tinine 1.1, Estimat Glomerular Filtration Rate > 60, Glucose Level 240H, Calcium Level 10.1, Phosphorus Level 3.2, Magnesium Level 2.4, Total Bilirubin 0.2, Aspartate Amino Transf (AST/SGOT) 20, Alanine Aminotransferase (ALT/SGPT) < 6L, Alkaline Phosphatase 211H, C-Reactive Protein, Quantitative 69.9, Pro-B-Type Natriuretic Peptide 237H, Total Protein 8.0, Albumin 1.8L, Globulin 6.2, Albumin/Globulin Ratio 0.3L 10/16/20 11:08: POC Whole Blood Glucose 227H 10/16/20 18:33: POC Whole Blood Glucose 239H 10/16/20 23:30: POC Whole Blood Glucose 258H Current Medications Medications (Trade) Dose Ordered Sig/Debi Route PRN Reason Start Time Stop Time Status Last Admin Dose Admin Acetaminophen (Tylenol) 650 mg Q4H PRN GT FEVER 10/03/20 01:15 11/02/20 01:14 10/14/20 13:34 Acetaminophen (Tylenol) 650 mg Q6H PRN GT Mild Pain (Pain Scale 1-3) 10/12/20 08:30 11/11/20 08:29 Ascorbic Acid (Vitamin C) 250 mg EVERY 12 HOURS GT 10/12/20 09:00 11/02/20 17:59 10/17/20 08:33 Dextrose (Dextrose 50%) 25 ml Q30M PRN IV Hypoglycemia 09/25/20 15:30 12/24/20 15:29 Dextrose (Dextrose 50%) 50 ml Q30M PRN IV Hypoglycemia 09/25/20 15:30 12/24/20 15:29 Heparin Sodium (Porcine) (Heparin 5000 units/ml) 5,000 units EVERY 12 HOURS SUBQ 09/25/20 09:00 11/09/20 08:59 10/17/20 08:53 Insulin Aspart (NovoLOG) Q6HR SUBQ 10/04/20 00:00 01/02/21 00:00 10/17/20 05:46 Midodrine (Pro-Amatine) 10 mg Q8HR GT 09/30/20 14:00 12/29/20 13:59 10/17/20 05:45 Ondansetron HCl (Zofran) 4 mg Q6H PRN IVP Nausea & Vomiting 09/25/20 00:15 10/25/20 00:14 Pantoprazole (Protonix) 40 mg Q12HR IVP 09/25/20 21:00 10/25/20 08:59 10/17/20 08:33 Polyethylene Glycol (Miralax) 17 gm DAILYPRN PRN ORAL Constipation 09/25/20 00:15 10/25/20 00:14 Assessment/Plan Assessment/Plan ASSESSMENT Acute respiratory failure , requiring intubation, s/p extubation Sepsis with shock CONS bacteremia- contaminant Proteus ESBL UTI Pneumonia , possible aspiration KELLY- > resolved Dysphagia, feeding by G-tube DM Anemia Hx of CVA Hx of hypertension Parkinson disease PLAN OF CARE tele O2 titrate to keep sat > 92% pulm toilet CXR 10/13 with improvement strict aspiration precaution DVT and GI prophylaxis abx as per ID recs, completed CRP 10/16 - 69.9 SCX 09/28 + Proteus ESBL BCX 09/28 + CONS fup BCX 09/30 NGTD; prior BCX 09/26 NGT , CONS likely contaminant COVID-19 negative C dif NGT BCX 10/11 NGTD UCX 10/11 NGT SCX 10/08 + Klebsiella, Lillian BP support with midodrine s/p gentle IV hydration, monitor volumes BS management with SSI monitor renal parameters, electrolytes ,correct electrolytes as needed ,avoid nephrotoxic KELLY resolved monitor H&H with goal to keep Hgb above 7 supportive care DNR/DNI status now dc to SNF today ( no child welfare caseworker/dc planner chief on staff 10/16 to proceed with dc ) case discussed and evaluated by supervising physician Kim Mahoney NP Oct 17, 2020 09:35 Guy Roper MD Oct 17, 2020 21:28
[2020-10-17 10:45] LABS: BASOPHILS % (AUTO) 1.6 % (0.0-2.0); EOSINOPHILS % (AUTO) 5.2 % (0.0-3.0); HEMATOCRIT 31.9 % (42.0-52.0); LYMPHOCYTES % (AUTO) 36.1 % (20.0-45.0); MEAN CORPUSCULAR VOLUME 83 FL (80-99); MONOCYTES % (AUTO) 8.5 % (1.0-10.0); NEUTROPHILS % (AUTO) 48.7 % (45.0-75.0); PLATELET COUNT 469 K/UL (150-450); RED BLOOD COUNT 3.86 M/UL (4.70-6.10); RED CELL DISTRIBUTION WIDTH 16.6 % (11.6-14.8); WHITE BLOOD COUNT 8.5 K/UL (4.8-10.8)
[2020-10-17 11:09] LABS: ALANINE AMINOTRANSFERASE 9 U/L (12-78); ALBUMIN 1.9 G/DL (3.4-5.0); ALKALINE PHOSPHATASE 206 U/L (46-116); ASPARTATE AMINO TRANSFERASE 12 U/L (15-37); BILIRUBIN,DIRECT < 0.1 MG/DL (0.0-0.3); BILIRUBIN,TOTAL 0.2 MG/DL (0.2-1.0); PHOSPHORUS 2.6 MG/DL (2.5-4.9)
[2020-10-17 11:19] LABS: ANION GAP 3 mmol/L (5-15); BLOOD UREA NITROGEN 28 mg/dL (7-18); CALCIUM 9.5 MG/DL (8.5-10.1); CARBON DIOXIDE 33 MMOL/L (21-32); CHLORIDE 103 MMOL/L (98-107); CREATININE 1.1 MG/DL (0.55-1.30); POTASSIUM 4.8 MMOL/L (3.5-5.1); SODIUM 139 MMOL/L (136-145)
[2020-10-17 12:00] VITALS: BP 121/62
--- NOTE | 2020-10-17 13:10 | Surgery Progress Note ---
Surgery Progress Note Subjective Additional Comments no acute events labs noted exam stable no n/v dressings going well Objective Last 24 Hour Vital Signs Date Time Temp Pulse Resp B/P (MAP) Pulse Ox O2 Delivery O2 Flow Rate FiO2 10/17/20 09:00 Venturi Mask 10.0 10/17/20 08:00 76 10/17/20 08:00 98.8 93 17 142/74 (96) 98 10/17/20 07:50 87 18 99 Venturi Mask 40 10/17/20 07:50 99 Venturi Mask 10.0 40 10/17/20 04:00 99.2 97 16 118/69 (85) 99 10/17/20 04:00 81 10/17/20 00:00 83 10/17/20 00:00 99.1 89 17 127/64 (85) 100 10/16/20 21:00 Venturi Mask 10.0 10/16/20 20:00 100 10/16/20 20:00 98.9 99 15 96/61 (73) 99 10/16/20 19:00 99 Venturi Mask 10.0 40 10/16/20 16:00 87 10/16/20 16:00 99.0 93 20 136/77 (96) 97 I&O Intake and Output 10/16/20 10/17/20 19:00 07:00 Intake Total 605 ml 55 ml Output Total 1300 ml 1000 ml Balance -695 ml -945 ml Tube Feeding 605 ml 55 ml Output Urine Total 1300 ml 1000 ml Dressing: saturated Cardiovascular: RSR Respiratory: decreased breath sounds Abdomen: soft, non-tender, present bowel sounds, non-distended Extremities: edema, no tenderness, no cyanosis Laboratory Tests Test 10/16/20 18:33 10/16/20 23:30 10/17/20 10:35 POC Whole Blood Glucose 239 MG/DL (74-106) H 258 MG/DL (74-106) H White Blood Count 8.5 K/UL (4.8-10.8) Red Blood Count 3.86 M/UL (4.70-6.10) L Hemoglobin 10.0 G/DL (14.2-18.0) L Hematocrit 31.9 % (42.0-52.0) L Mean Corpuscular Volume 83 FL (80-99) Mean Corpuscular Hemoglobin 25.9 PG (27.0-31.0) L Mean Corpuscular Hemoglobin Concent 31.4 G/DL (32.0-36.0) L Red Cell Distribution Width 16.6 % (11.6-14.8) H Platelet Count 469 K/UL (150-450) H Mean Platelet Volume 8.8 FL (6.5-10.1) Neutrophils (%) (Auto) 48.7 % (45.0-75.0) Lymphocytes (%) (Auto) 36.1 % (20.0-45.0) Monocytes (%) (Auto) 8.5 % (1.0-10.0) Eosinophils (%) (Auto) 5.2 % (0.0-3.0) H Basophils (%) (Auto) 1.6 % (0.0-2.0) Sodium Level 139 MMOL/L (136-145) Potassium Level 4.8 MMOL/L (3.5-5.1) Chloride Level 103 MMOL/L (98-107) Carbon Dioxide Level 33 MMOL/L (21-32) H Anion Gap 3 mmol/L (5-15) L Blood Urea Nitrogen 28 mg/dL (7-18) H Creatinine 1.1 MG/DL (0.55-1.30) Estimat Glomerular Filtration Rate > 60 mL/min (>60) Glucose Level 221 MG/DL (74-106) H Calcium Level 9.5 MG/DL (8.5-10.1) Phosphorus Level 2.6 MG/DL (2.5-4.9) Magnesium Level 2.5 MG/DL (1.8-2.4) H Total Bilirubin 0.2 MG/DL (0.2-1.0) Direct Bilirubin < 0.1 MG/DL (0.0-0.3) Aspartate Amino Transf (AST/SGOT) 12 U/L (15-37) L Alanine Aminotransferase (ALT/SGPT) 9 U/L (12-78) L Alkaline Phosphatase 206 U/L (46-116) H Total Protein 8.3 G/DL (6.4-8.2) H Albumin 1.9 G/DL (3.4-5.0) L Plan Problems: (1) Hypoxia (2) Severe sepsis Assessment & Plan: leukocytosis lactic acidosis anemia renal insufficiency on support in ICU dressings changed and care plan initiated cont abx trend labs if fluids am imaging ordered remains febrile cont abx cooling measures worsening respiratory cont support CT noted - unable to obtain consent for ct. medically necessary to ensure no intraabd process. recommend proceed with ct in patients best interest weaning possible trial extubation Non-Blanchable erythema noted to R and L earlobes. Erythematous, scaly pimple- like rash,some of which are scaly and others small papules noted to R and L axillae, upper R and L chest and back ,R and L groin areas. Pt observed to persistently scratch affected areas described. Incontinence Associated Dermatitis Buttocks, R and L Ischial tuberosities are er ythematous,denuded with shearing and scattered satellite lesions. Per staff pt frequently removes or dislodges Condom cath. R Heel is boggy with non-blanchable erythema. L Heel is boggy with Non-Blanchable erythema. Pt presented on admission with Multiple Pressure Injuries. Sacral DTPI which extends into R and L Gluteal cheeks and is partially opened upper R gluteus (L)14cm x (W)15cm. DTPI noted within hypertrophic scar from previous Pressure injury. Base of wound is purpuric at rm cleft ,and indurated. Non-Blanchable erythema with additional shearing periwound. An area of induration with darker skin tone noted to L Ischium. Darker skin tone without induration R Ischium. Scrotum is erythematous and swollen. DTPI L Heel and Plantar L Heel(L)4cm x (W)3.5cm. Base of Pressure Injury roca colored Blister with darker center. Periwound is fluctuant with non-Blanchable erythema. DTPI R Heel (L)2.7cm x (W)4cm. Non-Blanchable erythema without induration/fluctuance R Hallux. Non-Blanchable erythema without induration/fluctuance L Hallux. Tx.Plan:Apply Cavilon Skin Barrier to both R and L ears.(Pad Oxygen Tubing as Needed.) Apply Moisture Barrier Paste to bilat groin and bilat ischial tuberosities with eqach Incontinence care. Apply Cavilon Skin Barrier to both heels. Cover each heel with Optifoam drsg. Change every 7 days and prn. Cleanse Sacral wound with Saline. Apply Therahoney. Apply Moisture Barrier Paste periwound. Cover with Optifoam drsg. Change every 3 days and prn. Apply Moisture Barrier Paste to Scrotum,R and L ischial tuberosities with each incontinence care. Apply Cavilon Skin Barrier to R and L Hallux. Cover each site with Optifoam drsgs. Change every 7 days and prn. Reposition at least every 2hours or as tolerated. Off-load heels with pillow. APM/ALEK Mattress overlay improving cont current care tube site okay DAILY ESTIMATED NEEDS: Needs based on Critical care, DM, Wound/ 62.73kg 22-30 kcals/kg 1303-9050 total kcals 1.25-2 g protein/kg 78-125 g total protein 25-30 mL/kg 7056-0382 total fluid mLs NUTRITION DIAGNOSIS: * Swallowing difficulty R/T dysphagia as evidenced by Pt is GT dep, currently orally intubated, off pressor support, on GT feeds. CURRENT TF:NPO ENTERAL NUTRITION RECOMMENDATIONS: Glucerna 1.2 @ 55ml/hr x 24 hrs to provide 1320ml, 1584kcal, 79g prot, 1063ml free water * Maintain current TF: meets 100 % est kcal/prot needs * HOB over 30 degrees * H2O flush of 180ml q 6hrs ADDITIONAL RECOMMENDATIONS: * Per SNF: HT=5'7" WT= 138lbs (as of Sep 13, 2020) * Monitor hemodynamic stability: NE @ 8mcg-> now off * Wound healing: TF rec @ goal provides 100% RDI add Vit C 500mg QD + Terrance BID via TF * Monitor lytes, replete as needed * Rec long acting insulin for improved BG control . Right deep veins: Unremarkable. No DVT in the right common femoral, femoral, proximal deep femoral or popliteal veins. The veins demonstrate normal color flow, are normally compressible, with normal phasic flow and/or augmentation response. Right superficial veins: Unremarkable. No thrombus in the visualized right great saphenous vein. Left deep veins: Unremarkable. No DVT in the left common femoral, femoral, proximal deep femoral or popliteal veins. The veins demonstrate normal color flow, are normally compressible, with normal phasic flow and/or augmentation response. Left superficial veins: Unremarkable. No thrombus in the visualized left great saphenous vein. Soft tissues: No acute findings. No popliteal cyst. IMPRESSION: No deep venous thrombosis identified in either lower extremity. (3) Dehydration (4) Hypernatremia (5) Clostridium difficile colitis (6) Staphylococcus aureus bacteremia (7) Hip fracture, left (8) Diabetes mellitus (9) History of hypertension (10) Severe protein-calorie malnutrition (11) Acute encephalopathy (12) Pressure Ulcer Of Sacral Region, Unstageable (13) Feeding by G-tube (14) Abdominal distention (15) Multiple drug resistant organism (MDRO) culture positive (16) Sepsis (17) History of CVA (cerebrovascular accident) (18) Parkinson disease James Breen Oct 17, 2020 13:10
--- NOTE | 2020-10-17 13:11 | Nephrology Progress Note ---
Assessment/Plan Problem List: (1) KELLY (acute kidney injury) (2) Dehydration (3) Hypernatremia (4) Severe sepsis (5) History of CVA (cerebrovascular accident) (6) Parkinson disease (7) Acute respiratory failure (8) Elevated lipase Assessment KELLY, Hypernatremia, dehydration, free water deficit Sepsis Acute respiratory failure requiring intubation and mechanical ventilation Diabetes mellitus [id number] GT feeding History of CVA History of hypertension Parkinson's disease Elevated lipase Plan October 17: Labs reviewed. Serum calcium lowering. Electrolyte acceptable. Continue monitor renal parameters. October 16: Labs reviewed. Serum calcium lowering. Electrolyte within acceptab le range. Continue to monitor renal parameters. October 15: Labs reviewed. Serum sodium and serum calcium elevated. D5W 500 cc ordered. Pamidronate 60 mg IV ordered for high calcium. Continue to monitor chemistries. October 14: On Venturi mask. Labs reviewed. Renal parameters stable. Electrolytes within acceptable range. October 13: Patient on BiPAP. Gradually improving. Labs reviewed. Renal parameters electrolytes stable. Will give 1 L of D5W for mildly elevated serum sodium. Continue per consultants. October 12: Patient extubated yesterday. Currently on BiPAP. Labs reviewed. Remains full code. Stable from renal standpoint view. Continue post extubation pulmonary care. October 11: Labs reviewed. Renal parameters stable. Remains intubated. Full code. Continue per consultants. October 10: Labs reviewed. Renal parameters stable. Continue per consultants. Continue to monitor renal parameters. October 09: Labs reviewed. K-Phos and 1 L D5W ordered. Continue per consul tants. Continue to monitor electrolytes and renal parameters. October 08: No CHEM panel drawn today. Will check lab tomorrow. Continue per consultants. October 07: Labs reviewed. Abnormal electrolytes addressed. Bolus of 500 cc D5W for elevated serum sodium given. Continue to monitor electrolytes and renal parameters. October 06: Labs reviewed. K-Phos replaced. Will give another liter of D5W. Continue to monitor electrolytes and renal parameters. October 05: Labs reviewed. Serum sodium rising. 1 L D5W IV ordered. Continue to monitor electrolytes. Continue per consultants. October 04: No CHEM panel was done today. Patient remain intubated on ventilator and full code. We will order labs tomorrow. Continue per consultants. October 03: Discussed with RN. Labs are reviewed. Potassium and phosphate replacement ordered. Continue per consultants. Patient remains full code intubated on ventilator. Serum creatinine up to 1.5. Continue to monitor renal parameters. October 02: Remains in ICU and intubated. Labs reviewed. Serum creatinine 1.3. Serum sodium slightly elevated. Continue to monitor renal parameters and electrolytes. October 01: Seen in ICU. Discussed with RN. No chemistry panel done today. Blood pressure hovering around 100 systolic. Will check labs tomorrow. Continue per consultants. September 30: Labs reviewed. Renal parameters stable. Blood pressure hovering around 90s systolic. We will add midodrine through GT tube. Continue per consultants. September 29: Labs reviewed. Serum creatinine down to 1.3 and electrolytes reviewed. Abnormal electrolytes addressed. Continue per consultants. September 28: Labs reviewed. Creatinine 1.6 unchanged. Hypernatremia persists. Will give 1 L of D5W. Continue to monitor renal parameters and electrolytes. Continue per consultants. September 27: Labs reviewed. Serum sodium lowering. Serum creatinine lowering. Blood sugar somewhat better controlled. Patient continues to be on free water through tube feeding. Continue to monitor renal parameters and electrolytes. Abnormal electrolytes addressed. September 26: IV fluids stopped. Patient receiving free water reviewed NG tube. Patient full code. Intubated on ventilator. Discussed with JOHNNY Christensen. Continue to monitor renal parameters. Serum creatinine lower but abnormal electrolyte persists and was addressed. Previously: IV fluid half-normal saline 125 cc an hour Albumin fluid challenge Monitor electrolytes Monitor renal parameters Hold blood pressure medication since blood pressure low Per orders, per consultants Subjective ROS Limited/Unobtainable: No Constitutional: Reports: malaise, weakness Objective Objective Last 24 Hour Vital Signs Date Time Temp Pulse Resp B/P (MAP) Pulse Ox O2 Delivery O2 Flow Rate FiO2 10/17/20 09:00 Venturi Mask 10.0 10/17/20 08:00 76 10/17/20 08:00 98.8 93 17 142/74 (96) 98 10/17/20 07:50 87 18 99 Venturi Mask 40 10/17/20 07:50 99 Venturi Mask 10.0 40 10/17/20 04:00 99.2 97 16 118/69 (85) 99 10/17/20 04:00 81 10/17/20 00:00 83 10/17/20 00:00 99.1 89 17 127/64 (85) 100 10/16/20 21:00 Venturi Mask 10.0 10/16/20 20:00 100 10/16/20 20:00 98.9 99 15 96/61 (73) 99 10/16/20 19:00 99 Venturi Mask 10.0 40 10/16/20 16:00 87 10/16/20 16:00 99.0 93 20 136/77 (96) 97 Intake and Output 10/16/20 10/17/20 19:00 07:00 Intake Total 605 ml 55 ml Output Total 1300 ml 1000 ml Balance -695 ml -945 ml Tube Feeding 605 ml 55 ml Output Urine Total 1300 ml 1000 ml Laboratory Tests 10/16/20 18:33: POC Whole Blood Glucose 239H 10/16/20 23:30: POC Whole Blood Glucose 258H 10/17/20 10:35: White Blood Count 8.5, Red Blood Count 3.86L, Hemoglobin 10.0L, Hematocrit 31.9L , Mean Corpuscular Volume 83, Mean Corpuscular Hemoglobin 25.9L, Mean Corpuscular Hemoglobin Concent 31.4L, Red Cell Distribution Width 16.6H, Platelet Count 469H, Mean Platelet Volume 8.8, Neutrophils (%) (Auto) 48.7, Lymphocytes (%) (Auto) 36.1, Monocytes (%) (Auto) 8.5, Eosinophils (%) (Auto) 5.2H, Basophils (%) (Auto) 1.6, Sodium Level 139, Potassium Level 4.8, Chloride Level 103, Carbon Dioxide Level 33H, Anion Gap 3L, Blood Urea Nitrogen 28H, Creatinine 1.1, Estimat Glomerular Filtration Rate > 60, Glucose Level 221H, Calcium Level 9.5, Phosphorus Level 2.6, Magnesium Level 2.5H, Total Bilirubin 0.2, Direct Bilirubin < 0.1, Aspartate Amino Transf (AST/SGOT) 12L, Alanine Aminotransferase (ALT/SGPT) 9L, Alkaline Phosphatase 206H, Total Protein 8.3H, Albumin 1.9L Height (Feet): 5 Height (Inches): 10.00 Weight (Pounds): 180 General Appearance: no apparent distress, lethargic EENT: other - On Venturi mask Cardiovascular: tachycardia Respiratory/Chest: decreased breath sounds Abdomen: distended Fouladian,Eddie MD Oct 17, 2020 13:11
[2020-10-17] MEDS ORDERED: NS 275ml ONE (14:59)
[2020-10-17] MEDS ORDERED: 1/2 NS 1000ml IV ONE (14:59)
--- NOTE | 2020-10-19 02:12 | Cardiology Report ---
APPROVED REPORT EXAM: Two-dimensional and M-mode echocardiogram with Doppler and color Doppler. INDICATION Left ventricular function M-Mode DIMENSIONS IVSd1.0 (0.7-1.1cm)Left Atrium (MM)2.1 (1.6-4.0cm) LVDd2.8 (3.5-5.6cm)Aortic Root2.9 (2.0-3.7cm) PWd1.1 (0.7-1.1cm)Aortic Cusp Exc.1.9 (1.5-2.0cm) IVSs1.6 cm LVDs1.8 (2.5-4.0cm) PWs1.2 cm <Conclusion> Technically difficult study due to pt's ventilator and poor acoustical windows. Normal left ventricular chamber size, systolic function and wall motion to extent visualized. Left ventricular ejection fraction estimated to be normal. No left ventricular hypertrophy. No evidence of pericardial effusion. All other cardiac chamber sizes are within normal limits. Focal aortic valve sclerosis with adequate cusp excursion. Thickened mitral valve leaflets with normal excursion. Mitral annulus and aortic root calcification. Pulmonic valve not well visualized. Normal tricuspid valve structure. IVC at normal size with physiologic collapse. Pacemaker wire present in the right side chambers. A color flow and spectral Doppler study was performed and revealed: No aortic regurgitation. Trace mitral regurgitation. Mitral diastolic velocities suggest reduced left ventricular relaxation c/w mild LV diastolic dysfunction (Grade I ). Trace tricuspid regurgitation. Tricuspid systolic velocities suggests peak right ventricular systolic pressure of 14 mmHg Trace pulmonic regurgitation present.
--- NOTE | 2020-10-19 02:32 | Cardiology Report ---
APPROVED REPORT EKG Measurement Heart [id number] <Conclusion> Sinus tachycardia Left posterior fascicular block Abnormal ECG
--- NOTE | 2020-10-20 13:48 | Discharge Summary ---
Discharge Summary Discharge Summary _ DATE OF ADMISSION: 09/24/2020 DATE OF DISCHARGE: 10/17/2020 DISCHARGED BY: Dr. Rome REASON FOR ADMISSION: 80 years old male, resident of long-term facility, with past medical history of COPD, hypertension, CVA, Parkinson disease, diabetes mellitus, presented for evaluation due to fever and decreased oxygen saturation. Patient presented with nonrebreather mask placed by paramedics. Upon evaluation he was febrile, tachycardic ,tachypneic , and hypoxic. Patient was emergently intubated Central line was placed. Septic work-up initiated , patient pancultured, received IV bolus , started on empiric antibiotic and admitted to ICU for further management. CONSULTANTS: pulmonary Dr. Mckeon ID specialist Dr. Harris retail helper Dr. Nelson surgery Dr. Breen [facility] COURSE: Patient admitted to ICU. Patient started on pressors for hemodynamic support. Pressors titrated to keep mean arterial blood pressure above 65. Ventilator support and pulmonary toilet provided. Antibiotic provided as per ID specialist recommendation. Patient eventually was able to be weaned from pressors. Patient was followed up with chest x-ray. Blood culture initially revealed Staph Aricularis. COVID-19 on admission was negative. Urine culture revealed Proteus mirabilis ESBL. Repeated blood culture were negative, initial blood cultures were possibly contaminant. Repeated COVID-19 on 09/25 by PCR was negative as well. Stool for C. difficile was negative. Blood culture on 09/28 revealed Staph epidermidis and repeated on 09/30 were negative. Sputum culture revealed Proteus mirabilis ESBL and Klebsiella pneumonia. Final blood culture 10/11 were negative as well. Strict aspiration precaution maintained. G-tube feeding with tube feeding formula provided as per registered dietitian recommendation. Wound care for present on admission multiple pressure injury provided as per surgeon recommendation. Continue wound care at the facility. As patient clinically improved and was hemodynamically stable, weaning protocol initiated. Patient was unable to be weaned. Patient remained on ventilator for long time. Bioethics consult was requested regarding appropriateness of DNR/DNI code. Patient with multiply medical problems and approached definition of futile care. Bioethics recommended DNR status, which would be entirely appropriate. CODE STATUS was changed to DNR/DNI on 10/13. Patient subsequently was extubated. Supplemental oxygen provided and titrated to keep pulse oximetry above 92%, pulmonary toilet provided . Patient with follow-up with a chest x-ray DVT and GI prophylaxis provided. Patient completed antibiotic while in the hospital. Leukocytosis resolved Patient received gentle IV hydration . Volumes were closely monitored. Blood pressure was supported with midodrine. Blood sugar was managed with sliding scale of insulin. Renal parameters and electrolytes were closely monitored, electrolytes corrected as needed, and nephrotoxic's were avoided. KELLY resolved. Hemoglobin and hematocrit were closely monitored with goal to keep hemoglobin above 7. Supportive care provided. Patient clinically stabilized and was ready for transfer back to long-term [facility] for continuation of care. Patient with DNR/DNI status, continued to be hypoxic , required 40% Venturi mask. Comfort measures and end life care appropriate. FINAL DIAGNOSES: Acute respiratory failure requiring intubation, status post extubation Sepsis with shock Bacteremia, probably contaminant Proteus ESBL UTI Pneumonia , possible aspiration Acute kidney injury -resolved Dysphagia, feeding by G-tube Diabetes mellitus Anemia History of CVA History of hypertension Parkinson disease DISCHARGE MEDICATIONS: See Medication Reconciliation list. DISCHARGE INSTRUCTIONS: Patient was discharged to the long-term facility. Follow up with medical doctor at the facility. I have been assigned to dictate discharge summary for this account. Kim Mahoney NP Oct 20, 2020 13:48
== END 2020-10-17 15:00 | DRG 870 ==
LOC: EDBD 19:03 → EMR 19:35 → UNDOADMIN 20:30 → ICU 20:30 → 2W 20:30 → EDBEDREQ 20:58 → UNDOADMIN 09-25 08:45 → ICU 09-25 08:45 → 2E 10-14 12:53
PROC: 5A1955Z Respiratory Ventilation, Greater than 96 Consecutive Hours (ICD-10-PCS; principal; 2020-09-24)
PROC: 06HM33Z Insertion of Infusion Device into Right Femoral Vein, Percutaneous Approach (ICD-10-PCS; principal; 2020-09-24)
PROC: 0BH17EZ Insertion of Endotracheal Airway into Trachea, Via Natural or Artificial Opening (ICD-10-PCS; principal; 2020-09-24)
DX: A41.9 Sepsis, unspecified organism (principal); J69.0 Pneumonitis due to inhalation of food and vomit; R65.21 Severe sepsis with septic shock; E43 Unspecified severe protein-calorie malnutrition; J96.01 Acute respiratory failure with hypoxia; J15.6 Pneumonia due to other Gram-negative bacteria; N39.0 Urinary tract infection, site not specified; K51.20 Ulcerative (chronic) proctitis without complications; N17.9 Acute kidney failure, unspecified; E87.0 Hyperosmolality and hypernatremia; A04.72 Enterocolitis due to Clostridium difficile, not specified as recurrent; I10 Essential (primary) hypertension; Z93.1 Gastrostomy status; K21.9 Gastro-esophageal reflux disease without esophagitis; Z68.25 Body mass index [BMI] 25.0-25.9, adult; E11.65 Type 2 diabetes mellitus with hyperglycemia; G20 Parkinson's disease; F02.80 Dementia in other diseases classified elsewhere, unspecified severity, without behavioral disturbance, psychotic disturbance, mood disturbance, and anxiety; R13.10 Dysphagia, unspecified; N40.0 Benign prostatic hyperplasia without lower urinary tract symptoms; Z20.822 Contact with and (suspected) exposure to COVID-19; Z86.73 Personal history of transient ischemic attack (TIA), and cerebral infarction without residual deficits; Z66 Do not resuscitate; L89.150 Pressure ulcer of sacral region, unstageable
CPT/HCPCS: 31500; 36415; 71045; 71260; 74177; 80048; 80053; 80061; 80076; 80150; 80202; 81003; 82248; 82306; 82550; 82607; 82728; 82746; 82803; 82962; 82977; 83036; 83540; 83550; 83605; 83615; 83690; 83735; 83880; 84100; 84443; 84484; 84550; 85025; 85379; 85610; 85651; 85730; 86140; 87040; 87070; 87081; 87086; 87181; 87205; 87324; 93005; 93306; 93970; 94002; 94003; 94660; 96365; 96367; 96375; 99291; J1815; J2430; J7030; J8499; U0002